=== PATIENT | female | born 1960 | race Caucasian/White ===

== ENCOUNTER 2017-05-28 21:01 | Emergency (ER) | payer OTHER ==
[~2017-05-28] VITALS: Ht 157.5 cm; Wt 128.8 kg
[~2017-05-28 21:01] MED LIST: ALBU0.08 INH; ALBUAER2 INH; ASPEC81 PO; CLOP1TAB54 PO; GABA-112 PO; HMLIS SQ; INSDGI SC; LEVO150T PO; LPT/40 PO; METO25TA56 PO; OXGN; PANT40TA PO
[2017-05-28] MEDS ORDERED: ASPIRIN 81 MG CHEW PO STA (21:12)
[2017-05-28 21:13] VITALS: TEMP 37.2; Ht 157.5 cm; Wt 128.8 kg
[2017-05-28 21:20] LABS: BASO % 0.2 %; BASO ABS # 0.02 K/uL (0-0.2); COMPLETE YES; EOS % 1.9 %; HEMATOCRIT 45.2 % (37-47); IG% 1.3 %; LYMPH ABS # 2.81 K/uL (1.2-3.4); MEAN CELL VOLUME 99.3 fL (80-100); MEAN CORPUSCULAR HEMOGLOBIN 31.9 pg (25-34); MEAN CORPUSCULAR HGB CONC 32.1 g/dl (32-36); MEAN PLATELET VOLUME 9.6 fL (7.4-10.4); MONO % 4.7 %; NEUT % 60.9 %; PLATELET COUNT 256 K/uL (130-400); RED BLOOD COUNT 4.55 M/uL (4.2-5.4); WHITE BLOOD COUNT 9.07 K/uL (4.8-10.8)
--- NOTE | 2017-05-28 21:31 | DIAGNOSTIC IMAGING REPORT ---
CHEST ONE VIEW PORTABLE CLINICAL HISTORY: Chest pain and shortness of breath. COMPARISON STUDY: Chest radiograph May 09, 2016. FINDINGS: There is no pneumothorax or pleural effusion. Mild interstitial thickening is similar to prior exams. There is no consolidation. Cardiomediastinal silhouette is stable. The exam is compromised due to suboptimal penetration related to portable technique and body habitus. IMPRESSION: No change in appearance of the chest. Stable interstitial thickening. Electronically signed by: Ruben Ahn M.D. 05/28/2017 9:30 PM Dictated Date/Time: 05/28/2017 9:28 PM
[2017-05-28 21:38] LABS: ALT/SGPT 58 U/L (12-78); BLOOD UREA NITROGEN 11 mg/dl (7-18); BUN/CREATININE RATIO 15.2 (10-20); CALCIUM 9.3 mg/dl (8.5-10.1); CARBON DIOXIDE 31 mmol/L (21-32); CHLORIDE 97 mmol/L (98-107); CREATININE 0.71 mg/dl (0.60-1.20); GLUCOSE 246 mg/dl (70-99); POTASSIUM 3.7 mmol/L (3.5-5.1); SODIUM 136 mmol/L (136-145)
[2017-05-28] MEDS ORDERED: ALBUT/IPRATROP 3MG/0.5MG NEB 3 ML VIAL INH STA (21:41)
[2017-05-28] MEDS ORDERED: METHYLPREDNISOLONE 125 MG VIAL IV STA (21:41)
[2017-05-28 21:42] LABS: POINT OF CARE PRO-BNP 298 pg/ml (0-900); POINT OF CARE TROPONIN I < 0.030 ng/ml (0-0.045)
[2017-05-28] MEDS ORDERED: ALBU18002 INH (21:42)
[2017-05-28] MEDS ORDERED: INSU100I2 SC (21:42)
[2017-05-28] MEDS ORDERED: INSDGIPEN SC (21:42)
[2017-05-28 21:43] LABS: ALKALINE PHOSPHATASE 255 U/L (45-117); AST/SGOT 46 U/L (15-37); CKMB/CK RATIO 2.1 (0-3.0)
[2017-05-28] MEDS ORDERED: PLV75 PO (21:43)
[2017-05-28] MEDS ORDERED: NRN100 PO (21:43)
[2017-05-28] MEDS ORDERED: PANT20TA PO (21:43)
[2017-05-28] MEDS ORDERED: LPT40 PO (21:43)
[2017-05-28] MEDS ORDERED: LEVO200T6 PO (21:43)
[2017-05-28] MEDS ORDERED: LPR25 PO (21:43)
[2017-05-28] MEDS ORDERED: ALBINS/ INH (21:44)
--- NOTE | 2017-05-28 22:07 | EMERGENCY ROOM VISIT NOTE ---
History Report prepared by Tom: Nehal Orta Under the Supervision of: Dr. Ghada Ortiz M.D. First contact with patient: 21:12 Chief Complaint: CHEST PAIN Stated Complaint: CHEST PAIN, SOB Nursing Triage Summary: Chest pain and SOB. Patient called EMS due to CP and SOB. Pt wears 4 liters 02 at home at night. When EMS arrived 02 sat was 84% on RA. Placed on 4 liters and 02 sat jumped to 96%. Patient smokes. 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 She presents to the ED by EMS. The pain is in the middle of her chest. She describes her pain as sharp and stabbing. It worsens with deep breaths. The pain does not radiate to her jaw , arm, or back. She reports feeling SOB. She has some abdominal pain which she attributes to her insulin injections. She denies any history of blood clots. She has a history of CHF. She had a [place] in 2010. She had a cardiac catheterization at the time. She did not have CABG or stent placement. She did not follow up with cardiology. The patient wears oxygen at night. 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 Review of Systems See HPI for pertinent positives & negatives. A total of 10 systems reviewed and were otherwise negative. Past Medical & Surgical Medical Problems: (1) Asthma (2) Benign hypertension (3) Chronic obstructive lung disease (4) Cirrhosis of liver (5) Coronary atherosclerosis of [place] coronary vessel (6) DM type 2 (diabetes mellitus, type 2) (7) Hyperlipidemia (8) Hypothyroidism (9) Morbid obesity with BMI of 40.0-44.9, adult (10) Peripheral vascular disease (11) Pulmonary emphysema (12) TOBACCO USE DISORDER Surgical Problems: (1) History of hysterectomy (2) S/P cholecystectomy (3) S/P coronary artery stent placement (4) S/P tonsillectomy and adenoidectomy Family History FH: diabetes mellitus BROTHER Heart disease MOTHER BROTHER Lung disease FATHER (COPD) SISTER (COPD, asthma) Social History Smoking Status: Current Every Day Smoker Alcohol Use: none Drug Use: none Marital Status: single Housing Status: lives with family Occupation Status: disabled Current/Historical Medications Scheduled Aspirin (Aspirin EC Low Dose), 81 MG PO DAILY Atorvastatin (Atorvastatin Calcium), 40 MG PO DAILY Clopidogrel Bisulfate (Clopidogrel), 75 MG PO DAILY Gabapentin (Gabapentin), 100 MG PO TID Home O2 Therapy (Oxygen), 4 LITERS NA HS Insulin Glargine (Lantus Solostar), 55 UNITS SC QAM Insulin Lispro (Human) (Humalog Kwikpen), 24 UNITS SC AC Levothyroxine Sodium (Levothyroxine Sodium), 500 MCG PO DAILY Metoprolol Tartrate (Lopressor), 12.5 MG PO BID Pantoprazole Sodium (Protonix), 20 MG PO DAILY Scheduled PRN Albuterol Sulf (Proventil 0.083% 2.5MG/3ML), 2.5 MG INH Q4H PRN for Shortness of Breath Albuterol Sulfate (Proair Respiclick), 2 PUFFS INH Q4H PRN for Shortness of Breath Allergies Coded Allergies: Penicillins (Verified Allergy, Intermediate, RASH, 05/09/16) Physical Exam Vital Signs Date Time Temp Pulse Resp B/P (MAP) Pulse Ox O2 Delivery O2 Flow Rate FiO2 05/29/17 00:05 69 20 171/76 95 Nasal Cannula 4.0 05/29/17 00:02 171/76 05/28/17 23:30 144/77 05/28/17 23:00 71 24 115/57 91 4.0 05/28/17 22:50 92 Nasal Cannula 4.0 05/28/17 22:36 71 25 117/78 92 Nasal Cannula 4.0 05/28/17 21:13 37.2 77 23 103/64 96 Nasal Cannula 4.0 05/28/17 21:13 84 Room Air 05/28/17 21:11 75 Physical Exam Vital signs reviewed. General: Malodorous, disheveled, on nasal cannula oxygen, morbidly obese, in no significant distress. HEENT: No scleral icterus, PERRLA, neck supple. Atraumatic. Cardiovascular: Regular rate and rhythm, no extra sounds. Pulmonary: Coarse breath sounds bilaterally, normal work of breathing, smells of tobacco. Abdomen: Soft, nontender, nondistended, positive bowel sounds. Musculoskeletal: Atraumatic, no peripheral edema. Neurologic: Patient awake alert and oriented x 3, full strength in all 4 extremities. Cranial nerves 2 through 12 grossly intact. Skin: Warm, dry, no rash Medical Decision & Procedures ER Provider Diagnostic Interpretation: X-ray results as stated below per interpretation by me and the radiologist: CHEST ONE VIEW PORTABLE CLINICAL HISTORY: Chest pain and shortness of breath. COMPARISON STUDY: Chest radiograph May 09, 2016. FINDINGS: There is no pneumothorax or pleural effusion. Mild interstitial thickening is similar to prior exams. There is no consolidation. Cardiomediastinal silhouette is stable. The exam is compromised due to suboptimal penetration related to portable technique and body habitus. IMPRESSION: No change in appearance of the chest. Stable interstitial thickening. Electronically signed by: Ruben Ahn M.D. 05/28/2017 9:30 PM Dictated Date/Time: 05/28/2017 9:28 PM Laboratory Results 05/28/17 20:33 Red Blood Count 4.55, Mean Corpuscular Volume 99.3, Mean Corpuscular Hemoglobin 31.9, Mean Corpuscular Hemoglobin Concent 32.1, Mean Platelet Volume 9.6, Neutrophils (%) (Auto) 60.9, Lymphocytes (%) (Auto) 31.0, Monocytes (%) (Auto) 4.7, Eosinophils (%) (Auto) 1.9, Basophils (%) (Auto) 0.2, Neutrophils # (Auto) 5.52, Lymphocytes # (Auto) 2.81, Monocytes # (Auto) 0.43, Eosinophils # (Auto) 0.17, Basophils # (Auto) 0.02 05/28/17 20:33 Test 05/28/17 20:33 05/28/17 21:24 05/28/17 21:25 05/28/17 23:42 White Blood Count 9.07 K/uL (4.8-10.8) Red Blood Count 4.55 M/uL (4.2-5.4) Hemoglobin 14.5 g/dL (12.0-16.0) Hematocrit 45.2 % (37-47) Mean Corpuscular Volume 99.3 fL (80-100) Mean Corpuscular Hemoglobin 31.9 pg (25-34) Mean Corpuscular Hemoglobin Concent 32.1 g/dl (32-36) Platelet Count 256 K/uL (130-400) Mean Platelet Volume 9.6 fL (7.4-10.4) Neutrophils (%) (Auto) 60.9 % Lymphocytes (%) (Auto) 31.0 % Monocytes (%) (Auto) 4.7 % Eosinophils (%) (Auto) 1.9 % Basophils (%) (Auto) 0.2 % Neutrophils # (Auto) 5.52 K/uL (1.4-6.5) Lymphocytes # (Auto) 2.81 K/uL (1.2-3.4) Monocytes # (Auto) 0.43 K/uL (0.11-0.59) Eosinophils # (Auto) 0.17 K/uL (0-0.5) Basophils # (Auto) 0.02 K/uL (0-0.2) RDW Standard Deviation 53.6 fL (36.4-46.3) RDW Coefficient of Variation 14.8 % (11.5-14.5) Immature Granulocyte % (Auto) 1.3 % Immature Granulocyte # (Auto) 0.12 K/uL (0.00-0.02) Anion Gap 8.0 mmol/L (3-11) Est Creatinine Clear Calc Drug Dose 112.6 ml/min Estimated GFR () 109.6 Estimated GFR (Non- 94.6 BUN/Creatinine Ratio 15.2 (10-20) Calcium Level 9.3 mg/dl (8.5-10.1) Total Bilirubin 0.2 mg/dl (0.2-1) Direct Bilirubin < 0.1 mg/dl (0-0.2) Aspartate Amino Transf (AST/SGOT) 46 U/L (15-37) Alanine Aminotransferase (ALT/SGPT) 58 U/L (12-78) Alkaline Phosphatase 255 U/L (45-117) Total Creatine Kinase 85 U/L (26-192) Creatine Kinase MB 1.8 ng/ml (0.5-3.6) Creatine Kinase MB Ratio 2.1 (0-3.0) Total Protein 7.0 gm/dl (6.4-8.2) Albumin 2.5 gm/dl (3.4-5.0) ZH-Egh-J-Type Natriuretic Peptide 298 pg/ml (0-900) Bedside Glucose 215 mg/dl (70-90) Bedside Troponin I < 0.030 ng/ml (0-0.045) Laboratory results per my review. Medications Administered Medications (Trade) Dose Ordered Sig/Abdi Route Start Time Stop Time Status Last Admin Dose Admin Methylprednisolone Sodium Succinate (Solu-Medrol IV) 125 mg NOW STAT IV 05/28/17 21:41 05/28/17 21:42 DC 05/28/17 21:49 125 MG Albuterol/ Ipratropium (Duoneb) 3 ml NOW STAT INH 05/28/17 21:41 05/28/17 21:42 DC 05/28/17 21:49 3 ML ECG Indication: chest pain, SOB/dyspnea Rate (beats per minute): 77 Rhythm: normal sinus Findings: no acute ischemic change, no ectopy ED Course 2124: Past medical records reviewed. The patient was evaluated in room C6. A complete history and physical examination was performed. 2111: Aspirin 324 mg PO. 2140: Duoneb 3 ml INH, Solu-Medrol IV 125 mg IV. 2316: Upon reevaluation, the patient appeared to have improvement of her symptoms. I discussed findings with her. She verbalized agreement of the treatment plan. She was discharged home. Medical Decision Differential diagnosis: Acute coronary syndrome, pulmonary embolus, aortic dissection, musculoskeletal pain, pneumonia, pleural effusion, pneumothorax Medication Reconciliation: I attest that I have personally reviewed the patient' s current medication list. Blood Pressure Screening: Patient was found to have normal blood pressure on screening and does not require follow-up. Pt was evaluated and appeared to be in no distress. IV access was obtained and lab work was drawn. 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 CXR is largely negative. EKG reveals no acute ischemia. Pt was given IV solumedral and duoneb treatment. Lab work reveals neg cardiac enzymes x 2. Pt was happy with plan for d/c, she had no further discomfort. Pt will f.u with PCP this week and return to the ED for worsening of symptoms or any medical concerns. Impression Primary Impression: Precordial chest pain Additional Impression: Chronic obstructive lung disease Scribe Attestation The scribe's documentation has been prepared under my direction and personally reviewed by me in its entirety. I confirm that the note above accurately reflects all work, treatment, procedures, and medical decision making performed by me. Departure Information Dispostion Home / Self-Care Referrals Ren Marroquin M.D. (PCP) Forms HOME CARE DOCUMENTATION FORM, IMPORTANT VISIT INFORMATION Patient Instructions [facility] Additional Instructions Diagnosis: Chest pain Please stop smoking. Use your oxygen during the day if needed for shortness of breath. Follow-up with your physician in the next 24-48 hours for reevaluation. Return to the emergency department for worsening of symptoms or any medical concerns. Problem Qualifiers
[2017-05-28 22:50] VITALS: O2SAT 92
[2017-05-29 00:05] VITALS: BP 171/76; PULSE 69; O2SAT 95
[2017-06-24] MEDS ORDERED: KFL500 PO (15:02)
[2017-06-24] MEDS ORDERED: OXGN (15:02)
[2017-06-24] MEDS ORDERED: LCTX PO (15:02)
[2017-06-24] MEDS ORDERED: FURO-85 PO (15:02)
[2017-06-24] MEDS ORDERED: PRED10TA PO (15:02)
[2017-06-24] MEDS ORDERED: SULF-183 PO (15:02)
[2017-06-24] MEDS ORDERED: IPRA1AER2 INH (15:02)
[2017-09-08] MEDS ORDERED: NICO21DI4 TD (13:27)
== END 2017-05-29 00:10 | disposition home or self-care (01) ==
LOC: EDBD 21:01 → C.EDC 21:03
DX: R07.2 Precordial pain (principal); J44.9 Chronic obstructive pulmonary disease, unspecified; I25.2 Old myocardial infarction; J45.909 Unspecified asthma, uncomplicated; I11.0 Hypertensive heart disease with heart failure; E11.9 Type 2 diabetes mellitus without complications; E78.5 Hyperlipidemia, unspecified; E03.9 Hypothyroidism, unspecified; E66.9 Obesity, unspecified; I73.9 Peripheral vascular disease, unspecified; F17.210 Nicotine dependence, cigarettes, uncomplicated; Z83.3 Family history of diabetes mellitus; Z82.49 Family history of ischemic heart disease and other diseases of the circulatory system; Z83.6 Family history of other diseases of the respiratory system; Z79.82 Long term (current) use of aspirin; Z79.4 Long term (current) use of insulin; Z79.899 Other long term (current) drug therapy

== ENCOUNTER 2017-06-20 21:06 | Inpatient (IN) | payer OTHER ==
[~2017-06-20] VITALS: Ht 154.9 cm; Wt 136.2 kg
[~2017-06-20 21:06] MED LIST changes: +ALBINS/ INH; -ALBU0.08 INH; +ALBU18002 INH; -ALBUAER2 INH; -CLOP1TAB54 PO; -GABA-112 PO; -HMLIS SQ; -INSDGI SC; +INSDGIPEN SC; +INSU100I2 SC; -LEVO150T PO; +LEVO200T6 PO; +LPR25 PO; -LPT/40 PO; +LPT40 PO; -METO25TA56 PO; +NRN100 PO; +PANT20TA PO; -PANT40TA PO; +PLV75 PO
[2017-06-20] MEDS ORDERED: SODIUM CHLORIDE 0.9% 1000ML 1,000 ML IV STA (21:23)
[2017-06-20 21:42] LABS: BASO % 0.1 %; BASO ABS # 0.01 K/uL (0-0.2); COMPLETE YES; EOS % 0.6 %; HEMATOCRIT 43.4 % (37-47); IG% 0.7 %; LYMPH % 9.8 %; LYMPH ABS # 1.25 K/uL (1.2-3.4); MEAN CELL VOLUME 99.5 fL (80-100); MEAN CORPUSCULAR HEMOGLOBIN 31.7 pg (25-34); MEAN CORPUSCULAR HGB CONC 31.8 g/dl (32-36); MEAN PLATELET VOLUME 9.5 fL (7.4-10.4); MONO % 6.7 %; NEUT % 82.1 %; PLATELET COUNT 244 K/uL (130-400); RED BLOOD COUNT 4.36 M/uL (4.2-5.4); WHITE BLOOD COUNT 12.73 K/uL (4.8-10.8)
[2017-06-20] MEDS ORDERED: OPTIRAY 320 IV PRN (21:45)
[2017-06-20 21:49] LABS: PROTHROMBIN TIME (PATIENT) 10.5 SECONDS (9.0-12.0)
[2017-06-20] MEDS ORDERED: VANCOMYCIN INJ 2,000 MG in SODIUM CHLORIDE 0.9% 500ML 500 ML IV STA (21:51)
[2017-06-20 21:52] LABS: ALT/SGPT 29 U/L (12-78); BLOOD UREA NITROGEN 7 mg/dl (7-18); BUN/CREATININE RATIO 10.5 (10-20); CALCIUM 9.4 mg/dl (8.5-10.1); CARBON DIOXIDE 32 mmol/L (21-32); CHLORIDE 95 mmol/L (98-107); CREATININE 0.65 mg/dl (0.60-1.20); GLUCOSE 143 mg/dl (70-99); POTASSIUM 3.9 mmol/L (3.5-5.1); SODIUM 133 mmol/L (136-145)
[2017-06-20 21:57] LABS: ALB/GLOB RATIO 0.5 (0.9-2); ALKALINE PHOSPHATASE 217 U/L (45-117); AST/SGOT 35 U/L (15-37)
[2017-06-20 22:07] LABS: URINE APPEARANCE CLEAR (CLEAR); URINE COLOR DK YELLOW; URINE EPITHELIAL CELL AUTO >30 /lpf (0-5); URINE NITRITE NEG (NEG); URINE PH 7.5 (4.5-7.5); UROBILINOGEN POS (NEG)
[2017-06-20 22:10] LABS: MANUAL MICROSCOPIC REQUIRED? NO; REVIEW REQ? NO
[2017-06-20 22:12] LABS: SULFASALICYLIC ACID POS (NEG); URINE BILIRUBIN NEG (NEG)
[2017-06-21] VITALS (15 sets, daily range): BP systolic 117–161; BP diastolic 37–78; PULSE 59–78; TEMP 36.7–38.4; O2SAT 89–98; Ht 154.9 cm; Wt 136.2 kg
--- NOTE | 2017-06-21 01:31 | EMERGENCY ROOM VISIT NOTE ---
History Report prepared by Tom: Bryon Flores Under the Supervision of: Dr. Flores Novak D.O. First contact with patient: 21:12 Stated Complaint: FALL, DIZZINESS History of Present Illness The patient is a 56 year old female who presents to the Emergency Room with complaints of constant left side pain beginning after a fall occurring shortly prior to arrival. She did not hit her head or lose consciousness. The patient states that she slipped on the wet floor of her bathroom, causing her to fall. She notes that she had an episode of dizziness after going to the bathroom. She wears 4 L of supplemental oxygen chronically. She smokes every day. The patient currently complains of chest pain, shortness of breath with exertion, and lightheadedness. She denies any abnormal cough, fevers, or chills. She states that she has had abdominal pain and redness present for "a while, possibly a year", and has not seen a doctor for it yet. She states she rubs a cream on it and it gets better. Denies associated pain. Denies any recent surgical procedures. Pt denies any change in breathing, change in sputum, or recent fevers. Pt states she occasionally uses an inhaler but doesn't see a inspector plating. The patient states that she generally uses a wheelchair at home. Source of History: patient Onset: Shortly prior to arrival Position: other (left side) Timing: constant Associated Symptoms: + chest pain, + SOB, No LOC, No fevers, No chills, No cough (abnormal) Note: The patient currently complains of lightheadedness. She had an episode of dizziness prior to falling. Review of Systems See HPI for pertinent positives & negatives. A total of 10 systems reviewed and were otherwise negative. Past Medical & Surgical Medical Problems: (1) Asthma (2) Benign hypertension (3) Chronic obstructive lung disease (4) Cirrhosis of liver (5) Coronary atherosclerosis of [place] coronary vessel (6) DM type 2 (diabetes mellitus, type 2) (7) Hyperlipidemia (8) Hypothyroidism (9) Morbid obesity with BMI of 40.0-44.9, adult (10) Peripheral vascular disease (11) Pulmonary emphysema (12) Respiratory failure, [id number] (13) TOBACCO USE DISORDER Surgical Problems: (1) History of hysterectomy (2) S/P cholecystectomy (3) S/P coronary artery stent placement (4) S/P tonsillectomy and adenoidectomy Family History FH: diabetes mellitus BROTHER Heart disease MOTHER BROTHER Lung disease FATHER (COPD) SISTER (COPD, asthma) Social History Smoking Status: Current Every Day Smoker Alcohol Use: none Drug Use: none Marital Status: single Housing Status: lives with family Occupation Status: disabled Current/Historical Medications Scheduled Aspirin (Aspirin EC Low Dose), 81 MG PO DAILY Atorvastatin (Atorvastatin Calcium), 40 MG PO DAILY Clopidogrel Bisulfate (Clopidogrel), 75 MG PO DAILY Gabapentin (Gabapentin), 100 MG PO TID Home O2 Therapy (Oxygen), 4 LITERS NA HS Insulin Glargine (Lantus Solostar), 55 UNITS SC QAM Insulin Lispro (Human) (Humalog Kwikpen), 24 UNITS SC AC Levothyroxine Sodium (Levothyroxine Sodium), 200 MCG PO DAILY Metoprolol Tartrate (Lopressor), 12.5 MG PO BID Pantoprazole Sodium (Protonix), 20 MG PO DAILY Scheduled PRN Albuterol Sulf (Proventil 0.083% 2.5MG/3ML), 2.5 MG INH Q4H PRN for Shortness of Breath Albuterol Sulfate (Proair Respiclick), 2 PUFFS INH Q4H PRN for Shortness of Breath Allergies Coded Allergies: Penicillins (Verified Allergy, Intermediate, RASH, 05/09/16) Physical Exam Vital Signs Date Time Temp Pulse Resp B/P (MAP) Pulse Ox O2 Delivery O2 Flow Rate FiO2 06/21/17 02:19 75 22 97/48 89 Nasal Cannula 4.0 06/21/17 01:13 76 06/21/17 00:18 76 20 126/70 91 Nasal Cannula 4.0 06/20/17 23:16 72 20 111/60 93 Nasal Cannula 4.0 06/20/17 22:02 69 22 118/52 95 Nasal Cannula 4.0 06/20/17 21:24 91 Nasal Cannula 4.0 06/20/17 21:21 70 06/20/17 21:18 36.6 70 24 118/52 76 Room Air Physical Exam GENERAL: alert, appears older than stated age, well nourished, no distress, non- toxic, morbidly obese EYE EXAM: normal conjunctiva. OROPHARYNX: no exudate, no erythema, lips, buccal mucosa, and tongue normal and mucous membranes are moist NECK: supple, no nuchal rigidity, no adenopathy, non-tender LUNGS: Clear to auscultation. Normal chest wall mechanics, decreased BS b/l, no w/r/r, no crepitus/step off/ecchymosis to chest wall HEART: no murmurs, S1 normal and S2 normal ABDOMEN: abdomen soft, non-tender, normo-active bowel sounds, no masses, no rebound or guarding. Far lower edge of pannus has a 10 cm vertical midline wound with foul odor, mild yellow discharge, no active bleeding. Mildly increased erythema around the wound margins. Very mild erythema extending over the lower 2/3 of the abdomen into the bilateral flanks. Not circumferential. No extension of the erythema into the perineum. No ecchymosis/contusion/crepitus or other evidence of trauma. BACK: Back is symmetrical on inspection and there is no deformity, no midline tenderness, no CVA tenderness. SKIN: no bruising UPPER EXTREMITIES: upper extremities are grossly normal. Discoloration noted to nail beds consistent with smoking hx. LOWER EXTREMITIES: No pitting edema. NEURO EXAM: Normal sensorium, cranial nerves II-XII grossly intact, normal speech, no gross weakness of arms, no gross weakness of legs. Medical Decision & Procedures ER Provider Diagnostic Interpretation: CT results per statrad and my review. CT C-SPINE: No fracture or malalignment. Degenerative changes. Varying degrees of central canal and foramina stenosis. Reversal of the cervical lordosis, could be positional or from muscle spasm. Retropharyngeal carotids, anatomic variant. CT HEAD: No intracranial hemorrhage or skull fracture. CT ABDOMEN & PELVIS: No solid organ injury or hemoperitoneum. Subcutaneous edema/anasarca. Lobulated liver. Cholecystectomy. Hyde catheter. Hysterectomy. Laboratory Results Test 06/20/17 21:00 06/20/17 21:54 06/20/17 22:27 Prothrombin Time 10.5 SECONDS (9.0-12.0) Prothromb Time International Ratio 1.0 (0.9-1.1) Estimated Average Glucose 212 mg/dl Hemoglobin A1c 9.0 % (4.5-5.6) Magnesium Level 1.9 mg/dl (1.8-2.4) Total Bilirubin 0.9 mg/dl (0.2-1) Aspartate Amino Transf (AST/SGOT) 35 U/L (15-37) Alanine Aminotransferase (ALT/SGPT) 29 U/L (12-78) Alkaline Phosphatase 217 U/L (45-117) Pro-B-Type Natriuretic Peptide 553 pg/ml (0-900) Total Protein 7.2 gm/dl (6.4-8.2) Albumin 2.3 gm/dl (3.4-5.0) Globulin 4.9 gm/dl (2.5-4.0) Albumin/Globulin Ratio 0.5 (0.9-2) Lipase 90 U/L (73-393) Thyroid Stimulating Hormone (TSH) 4.700 uIu/ml (0.300-4.500) Urine Color DK YELLOW Urine Appearance CLEAR (CLEAR) Urine pH 7.5 (4.5-7.5) Urine Specific [place] 1.020 (1.000-1.030) Urine Protein TRACE (NEG) Urine Glucose (UA) NEG (NEG) Urine Ketones NEG (NEG) Urine Occult Blood NEG (NEG) Urine Nitrite NEG (NEG) Urine Bilirubin NEG (NEG) Urine Urobilinogen POS (NEG) Urine Leukocyte Esterase TRACE (NEG) Urine WBC (Auto) 1-5 /hpf (0-5) Urine RBC (Auto) 0-4 /hpf (0-4) Urine Hyaline Casts (Auto) 1-5 /lpf (0-5) Urine Epithelial Cells (Auto) >30 /lpf (0-5) Urine Bacteria (Auto) NEG (NEG) Lactic Acid Level 1.4 mmol/L (0.4-2.0) Date/Time Source Procedure Growth Status 06/20/17 21:54 Urine,Catheterized Urine Culture - Final MORE THAN THREE TYPES OF ORGANISMS MI... Complete 06/20/17 21:30 Drainage - Surface Abdomen Gram Stain - Final Complete 06/20/17 21:30 Wound Culture - Final Proteus Vulgaris Staphylococcus Aureus Group G Beta Strep Staphylococcus Aureus#2 Complete Laboratory results per my review. Medications Administered Medications (Trade) Dose Ordered Sig/Abdi Route Start Time Stop Time Status Last Admin Dose Admin Sodium Chloride 1,000 ml @ 125 mls/hr Q8H STAT IV 06/20/17 21:23 06/21/17 03:08 DC 06/20/17 21:23 125 MLS/HR Vancomycin HCl 2000 mg/Sodium Chloride 540 ml @ 200 mls/hr ONE STAT IV 06/20/17 21:51 06/21/17 00:32 DC 06/20/17 22:31 200 MLS/HR ECG Indication: other (dizziness) Rate (beats per minute): 71 Rhythm: normal sinus Findings: PAC (occasional), no acute ischemic change, other (Normal axis. Normal intervals. ) ED Course 2112: The patient was evaluated in room C7. A complete history and physical exam was performed. 2122: Ordered Sodium Chloride 1000 ml @ 125 mls/hr IV. 2150: Ordered Vancomycin HCl 2000 mg/Sodium Chloride 540 ml @ 200 mls/hr IV. 5: Pt denies any sob, states still having mild pain in the left side. Updated on labs so far. 0110: Upon reevaluation, the patient is resting comfortably. Her breathing has improved. I discussed the findings and the treatment plan with the patient. She expresses agreement and understanding. [facility] The patient will be evaluated for further management. Medical Decision Differential diagnoses include major intracranial, cervical, spinal, thoracic, abdominal, pelvic and neurologic injury. Fracture, contusion, sprain, strain, laceration, abrasions included as well. Pt several chronic medical problems, and risk factors for complications. Pt on home oxygen and underlying COPD still smoking, was hypoxic on room air, 90% on 4 lpm. Pt denied any current trouble breathing or other symptoms suggestive of acute exacerbation. Likely abdominal wall cellulitis from wound on the pannus, given hx of MRSA pt started on vancomycin. CT's initially performed for trauma and no other cause of dizziness noted on imaging. Mild leukocytosis likely from cellulitis, no evidence of bacteremia/sepsis. No PE findings to suggest Daphnie's. VS stable in the ER. Doubt additional pulmonary pathology such as PE, no evidence of infiltrate/effusion. Doubt acs, however, pt with multiple risk factors, likely needs serial enzymes as a precaution. No active chest pain or SOB on exam, c/o left flank pain from fall. Denies current dizziness. Pt alert/oriented, denies head trauma/LOC. Fall likely mechanical, unclear etiology for dizziness, although possibly related to cellulitis. Pt noncompliant by her own admission, nonambulatory, on chronic home oxygen and still smoking. Pt at risk for cardiac, infectious, pulmonary complications due to current presentation and chronic conditions. Pt admitted for additional monitoring and treatment. [place] Drug Monitoring Program Search Results: patient reviewed within database Head Trauma GCS Score: 15 Medication Reconcilliation Current Medication List: was personally reviewed by me Blood Pressure Screening Patient's blood pressure: Elevated blood pressure Blood pressure disposition: Elevated BP felt to be situational Consults Time Called: 0110 Consulting Physician: Dr. Nicolle Stephens Returned Call: 0125 I reviewed the patient's case with Dr. Valverde. Harshad will evaluate the patient for further management. Impression Primary Impression: Dizziness Additional Impressions: mechanical fall Morbid obesity Open abdominal wall wound Cellulitis COPD (chronic obstructive pulmonary disease) TOBACCO USE DISORDER Critical Care I have personally spent 35 minutes of critical care time in the direct management of this patient. This includes bedside care, interpretation of diagnostic studies, and testing, discussion with consultants, patient, and family members, and other required patient management activities. This 35 minutes is in excess of all separately billable procedures. Scribe Attestation The scribe's documentation has been prepared under my direction and personally reviewed by me in its entirety. I confirm that the note above accurately reflects all work, treatment, procedures, and medical decision making performed by me. Departure Information Dispostion Being Evaluated By Hospitalist Referrals Ren Marroquin M.D. (PCP) Problem Qualifiers Additional Impressions: Open abdominal wall wound Encounter type: initial encounter Qualified Codes: S31.109A - Unspecified open wound of abdominal wall, unspecified quadrant without penetration into peritoneal cavity, initial encounter Cellulitis Site of cellulitis: trunk Site of cellulitis of trunk: abdominal wall Qualified Codes: L03.311 - Cellulitis of abdominal wall COPD (chronic obstructive pulmonary disease) COPD type: unspecified COPD Qualified Codes: J44.9 - Chronic obstructive pulmonary disease, unspecified
[2017-06-21 01:47] LABS: MAGNESIUM 1.9 mg/dl (1.8-2.4)
[2017-06-21] MEDS ORDERED: CEFEPIME IV 2,000 MG in DEXTROSE 5% 100ML 100 ML IV ONE (02:15)
[2017-06-21] MEDS ORDERED: METHYLPREDNISOLONE IV 20 MG in SYRINGE 0 ML IV STA (02:18)
[2017-06-21 02:30] LABS: ARTERIAL BLD GAS O2 SATURATION 89.7 % (90-95); ARTERIAL BLOOD GAS BASE EXCESS 3.5 mEq/L (-9-1.8); ARTERIAL BLOOD GAS HCO3 32 mmol/L (19-24); ARTERIAL BLOOD GAS PO2 62 mm/Hg (80-95); ARTERIAL BLOOD GAS pH 7.28 (7.35-7.45)
[2017-06-21 02:31] LABS: ALLEN TEST POS (POS); O2 ADMINISTRATION 4 L
[2017-06-21] MEDS ORDERED: ALBUT/IPRATROP 3MG/0.5MG NEB 3 ML VIAL ONE (03:20)
[2017-06-21] MEDS ORDERED: INSULIN ASPART 100 UNITS/ML 3 ML PEN SC ONE (03:23)
[2017-06-21] MEDS ORDERED: INSULIN GLARGINE SOLOSTAR 100 UNITS/ML 3 ML PEN SC SCH ×2 (03:23→21:00)
[2017-06-21] MEDS ORDERED: GLUCOSE 40% GEL 15 GM TUBE PO PRN (03:30)
[2017-06-21] MEDS ORDERED: ONDANSETRON INJ 2 MG/ML 2 ML VIAL IV PRN (03:30)
[2017-06-21] MEDS ORDERED: GLUCOSE 10 TABS/TUBE PO PRN (03:30)
[2017-06-21] MEDS ORDERED: ALBUT/IPRATROP 3MG/0.5MG NEB 3 ML VIAL INH PRN (03:30)
[2017-06-21] MEDS ORDERED: HYDROmorphone INJ 0.5 MG/0.5 ML SYR IV PRN (03:30)
[2017-06-21] MEDS ORDERED: GLUCAGON FOR INJ 1 MG VIAL SQ PRN (03:30)
[2017-06-21] MEDS ORDERED: ACETAMINOPHEN 325 MG TAB PO PRN (03:30)
[2017-06-21] MEDS ORDERED: TRAMADOL HCL 50 MG TAB PO PRN (03:30)
[2017-06-21] MEDS ORDERED: DEXTROSE 50% 50 ML SYR IV PRN (03:30)
[2017-06-21] MEDS ORDERED: ALBUT/IPRATROP 3MG/0.5MG NEB 3 ML VIAL INH ONE (04:00)
[2017-06-21] MEDS ORDERED: DOXYCYCLINE IV 100 MG in DEXTROSE 5% 100ML 100 ML IV ONE (04:30)
[2017-06-21 05:45] LABS: BASO % 0.1 %; BASO ABS # 0.01 K/uL (0-0.2); COMPLETE YES; EOS % 0.3 %; HEMATOCRIT 45.2 % (37-47); IG% 0.7 %; LYMPH % 3.6 %; LYMPH ABS # 0.48 K/uL (1.2-3.4); MEAN CORPUSCULAR HEMOGLOBIN 32.1 pg (25-34); MEAN CORPUSCULAR HGB CONC 31.2 g/dl (32-36); MEAN PLATELET VOLUME 9.6 fL (7.4-10.4); MONO % 5.4 %; NEUT % 89.9 %; PLATELET COUNT 222 K/uL (130-400); RED BLOOD COUNT 4.39 M/uL (4.2-5.4); WHITE BLOOD COUNT 13.45 K/uL (4.8-10.8)
[2017-06-21] MEDS: LEVOTHYROXINE 200 MCG TAB PO SCH (05:49)
[2017-06-21 05:58] LABS: ALLEN TEST POS (POS); ARTERIAL BLD GAS O2 SATURATION 92.3 % (90-95); ARTERIAL BLOOD GAS BASE EXCESS 4.2 mEq/L (-9-1.8); ARTERIAL BLOOD GAS HCO3 32 mmol/L (19-24); ARTERIAL BLOOD GAS PO2 69 mm/Hg (80-95); O2 ADMINISTRATION 4
[2017-06-21 06:01] LABS: ESTIMATED AVERAGE GLUCOSE 212 mg/dl; HA1C FLAG Normal (Normal)
[2017-06-21 06:19] LABS: BLOOD UREA NITROGEN 7 mg/dl (7-18); BUN/CREATININE RATIO 11.3 (10-20); CARBON DIOXIDE 35 mmol/L (21-32); CHLORIDE 98 mmol/L (98-107); CREATININE 0.58 mg/dl (0.60-1.20); GLUCOSE 159 mg/dl (70-99); POTASSIUM 3.9 mmol/L (3.5-5.1); SODIUM 136 mmol/L (136-145)
[2017-06-21] MEDS ORDERED: ACETAMINOPHEN IV 650 MG in EMPTY BAG 0 ML IV ONE (06:30)
--- NOTE | 2017-06-21 06:36 | DIAGNOSTIC IMAGING REPORT ---
CT OF THE HEAD WITHOUT CONTRAST CLINICAL HISTORY: Trauma, dizzy. COMPARISON STUDY: No previous studies for comparison. CT DOSE: 5746.10 mGy.cm TECHNIQUE: Helical axial images of the head were obtained without IV contrast. Automated exposure control was utilized for the study. A dose lowering technique was utilized adhering to the principles of ALARA. FINDINGS: No acute intracranial hemorrhage, midline shift or mass effect is present. Ventricular system is normal. Basilar cisterns are patent. There are no extra-axial collections. Oconnor-white differentiation is maintained. There is no calvarial fracture. Small amount of fluid is noted within the bilateral mastoid air cells. There is mild mucosal thickening of the left maxillary sinus. IMPRESSION: 1. No acute intracranial findings. 2. No calvarial fracture. Electronically signed by: Ruben Ahn M.D. 06/21/2017 6:35 AM Dictated Date/Time: 06/21/2017 6:33 AM
--- NOTE | 2017-06-21 06:45 | DIAGNOSTIC IMAGING REPORT ---
CERVICAL SPINE W/O CT DOSE: HISTORY: Pain. Trauma. trauma TECHNIQUE: Multiaxial CT images of the cervical spine were performed and reformatted in the sagittal and coronal plane without the use of contrast. A dose lowering technique was utilized adhering to the principles of ALARA. COMPARISON: None. FINDINGS: Generalized degenerative disc change throughout. Reversal of the normal cervical curvature consistent with muscular spasm. No acute compression deformity. No significant subluxation. IMPRESSION: Degenerative change. Muscle spasm. No acute bony abnormality. The above report was generated using voice recognition software. It may contain grammatical, syntax or spelling errors. Electronically signed by: Harvey Blevins M.D. 06/21/2017 6:44 AM Dictated Date/Time: 06/21/2017 6:41 AM
--- NOTE | 2017-06-21 06:52 | DIAGNOSTIC IMAGING REPORT ---
CT OF THE ABDOMEN AND PELVIS WITH CONTRAST CLINICAL HISTORY: trauma, pain left flank COMPARISON STUDY: None. TECHNIQUE: Following IV administration of 93 mL of Optiray-320, axial images of the abdomen and pelvis were obtained from the lung bases to the proximal femurs. Images were reviewed in the axial, sagittal, and coronal planes. IV contrast was administered without complication. A dose lowering technique was utilized adhering to the principles of ALARA. FINDINGS: The chest will be reported separately. The liver is lobulated. There is trace perihepatic ascites. Pneumobilia is noted. There is no evidence of traumatic injury to the liver, spleen, adrenal glands, kidneys or pancreas. Excreted contrast within the collecting systems and ureters is noted. There is no hydronephrosis. The caliber and wall thickness of small and large bowel are normal. A left adrenal nodule is unchanged since exam November 09, 2014. This is benign. Anasarca or subcutaneous edema of the anterior abdominal wall is again noted. No acute lumbar spine or pelvic fractures identified. A Hyde balloon is present within the bladder which is collapsed. IMPRESSION: 1. No evidence of traumatic injury to the solid abdominal viscera. 2. Subcutaneous edema/anasarca of the anterior abdominal wall. 3. Lobulated liver with trace perihepatic ascites. Electronically signed by: Ruben Ahn M.D. 06/21/2017 6:51 AM Dictated Date/Time: 06/21/2017 6:49 AM
--- NOTE | 2017-06-21 07:28 | DIAGNOSTIC IMAGING REPORT ---
(CHEST) THORAX WITH HISTORY: 56 years-old Female trauma, sob, left rib pain symptoms are acute. COMPARISON: CT abdomen and pelvis 06/20/2017, chest CT 02/02/2016 TECHNIQUE: Multiple axial CT images of the chest were obtained following the intravenous administration of 93 mL Optiray 320. A dose lowering technique was used consistent with the principals of NARCISA. FINDINGS: Thyroid is not imaged. Mildly prominent nonspecific lymph nodes are seen about the chest, largest of which is a 2 x 1 cm subcarinal lymph node. Heart is mildly enlarged with three-vessel distribution coronary arterial calcifications. No thoracic pseudoaneurysm or dissection identified. The opacified pulmonary arterial tree is unremarkable. There is no pneumothorax. There is trace right pleural fluid noted. There is moderate amount of dependent atelectasis with some areas of subpleural cystic change. Multifocal areas of mosaic attenuation throughout the bilateral lungs suggests air trapping. The central airways are patent. There is trace. Trace perihepatic ascites with lobulated margin of the liver. Liver appears enlarged. Prior cholecystectomy. There is diffuse moderate body wall edema. Bones appear intact without acute fracture or dislocation identified. IMPRESSION: 1. No acute cardiopulmonary process. No evidence of posttraumatic injury to the chest. 2. No pneumothorax. 3. Trace right pleural effusion with bibasilar opacities suggesting atelectasis. There is multifocal air trapping. 4. Trace perihepatic ascites with moderate diffuse body wall edema. The above report was generated using voice recognition software. It may contain grammatical, syntax or spelling errors. Electronically signed by: Selvin Lui M.D. 06/21/2017 7:26 AM Dictated Date/Time: 06/21/2017 7:20 AM
[2017-06-21] MEDS: LEVALBUTEROL 1.25MG/0.5ML NEB INH SCH ×3 (08:07→18:54)
[2017-06-21] MEDS: IPRATROPIUM BROMIDE NEB SOLN 0.02% 2.5 ML VIAL INH SCH ×3 (08:07→18:54)
[2017-06-21] MEDS: ENOXAPARIN 40 MG/0.4 ML SYR SC SCH (08:55)
[2017-06-21] MEDS: ASPIRIN 81 MG ECTAB PO SCH (08:56)
[2017-06-21] MEDS: ATORVASTATIN 40 MG TAB PO SCH (08:56)
[2017-06-21] MEDS: METOPROLOL TARTRATE 25 MG TAB PO SCH ×2 (08:56→19:52)
[2017-06-21] MEDS: PANTOprazole SOD 40 MG TAB PO SCH (08:56)
[2017-06-21] MEDS: CLOPIDOGREL BISULFATE 75 MG TAB PO SCH (08:56)
[2017-06-21] MEDS: GABAPENTIN 100 MG CAP PO SCH ×3 (08:56→20:41)
[2017-06-21] MEDS: CEFEPIME IV 2,000 MG in DEXTROSE 5% 100ML 100 ML IV SCH ×2 (08:57→16:49)
[2017-06-21] MEDS: NICOTINE 14 MG/24 HR TDSY TD SCH (08:58)
[2017-06-21] MEDS: INSULIN ASPART 100 UNITS/ML 3 ML PEN SC SCH ×4 (08:59→20:47)
[2017-06-21] MEDS ORDERED: NICOTINE 14 MG/24 HR TDSY TD SCH (09:00)
[2017-06-21] MEDS ORDERED: CEFEPIME CONSULT ACTIVE PRN ×2 (09:00)
[2017-06-21] MEDS ORDERED: LEVALBUTEROL/IPRATROPIUM NEB INH SCH (09:00)
[2017-06-21] MEDS ORDERED: VANCOMYCIN CONSULT ACTIVE PRN (09:00)
--- NOTE | 2017-06-21 09:06 | Progress Note ---
Medicine Progress Note Date & Time of Visit: Jun 21, 2017 at 08:56. Subjective patient seen resting in bed only on 4 liters NC states she feels improved compared to yesterday still has dry cough, no dyspnea/chest pain has mild abdominal wall discomfort no other symptoms Objective Last 8 Hrs Date Time Temp Pulse Resp B/P (MAP) Pulse Ox O2 Delivery O2 Flow Rate FiO2 06/21/17 07:37 62 91 50 06/21/17 07:35 62 22 91 BiPAP/CPAP 50 06/21/17 06:22 68 98 50 06/21/17 04:21 38.4 78 18 118/62 89 Nasal Cannula 4.0 06/21/17 04:00 93 BiPAP 4.0 50 06/21/17 04:00 74 94 50 06/21/17 02:19 75 22 97/48 89 Nasal Cannula 4.0 06/21/17 01:13 76 Physical Exam: General- oriented x 3, not in distress, speaks in sentences with no effort Head- atraumatic Eyes- EOMI, anicteric ENT- oropharynx clear Neck- supple, no JVD, no adenopathy, Lungs- (+) rhonchi, diffuse, bilaterally Heart- regular rhythm; no murmur, normal rate Abdomen- (+) erythema/warm on the lower abdominal wall/pannus and inguinal region (+) incision on the lower abdomen- slight dehiscence, white/foul smelling discharge normal bowel sounds, soft Extremities- no pretibial edema, no calf tenderness Neuro- alert, oriented x 3; no gross focal deficit Skin- warm & dry Laboratory Results: Last 24 Hours Test 06/20/17 21:00 06/20/17 21:54 06/20/17 22:27 06/21/17 02:15 White Blood Count 12.73 K/uL Red Blood Count 4.36 M/uL Hemoglobin 13.8 g/dL Hematocrit 43.4 % Mean Corpuscular Volume 99.5 fL Mean Corpuscular Hemoglobin 31.7 pg Mean Corpuscular Hemoglobin Concent 31.8 g/dl Platelet Count 244 K/uL Mean Platelet Volume 9.5 fL Neutrophils (%) (Auto) 82.1 % Lymphocytes (%) (Auto) 9.8 % Monocytes (%) (Auto) 6.7 % Eosinophils (%) (Auto) 0.6 % Basophils (%) (Auto) 0.1 % Neutrophils # (Auto) 10.45 K/uL Lymphocytes # (Auto) 1.25 K/uL Monocytes # (Auto) 0.85 K/uL Eosinophils # (Auto) 0.08 K/uL Basophils # (Auto) 0.01 K/uL RDW Standard Deviation 55.1 fL RDW Coefficient of Variation 15.1 % Immature Granulocyte % (Auto) 0.7 % Immature Granulocyte # (Auto) 0.09 K/uL Prothrombin Time 10.5 SECONDS Prothromb Time International Ratio 1.0 Sodium Level 133 mmol/L Potassium Level 3.9 mmol/L Chloride Level 95 mmol/L Carbon Dioxide Level 32 mmol/L Anion Gap 6.0 mmol/L Blood Urea Nitrogen 7 mg/dl Creatinine 0.65 mg/dl Est Creatinine Clear Calc Drug Dose 125.5 ml/min Estimated GFR () 114.2 Estimated GFR (Non- 98.6 BUN/Creatinine Ratio 10.5 Random Glucose 143 mg/dl Estimated Average Glucose 212 mg/dl Hemoglobin A1c 9.0 % Calcium Level 9.4 mg/dl Magnesium Level 1.9 mg/dl Total Bilirubin 0.9 mg/dl Aspartate Amino Transf (AST/SGOT) 35 U/L Alanine Aminotransferase (ALT/SGPT) 29 U/L Alkaline Phosphatase 217 U/L Troponin I < 0.015 ng/ml Pro-B-Type Natriuretic Peptide 553 pg/ml Total Protein 7.2 gm/dl Albumin 2.3 gm/dl Globulin 4.9 gm/dl Albumin/Globulin Ratio 0.5 Lipase 90 U/L Thyroid Stimulating Hormone (TSH) 4.700 uIu/ml Urine Color DK YELLOW Urine Appearance CLEAR Urine pH 7.5 Urine Specific [place] 1.020 Urine Protein TRACE Urine Glucose (UA) NEG Urine Ketones NEG Urine Occult Blood NEG Urine Nitrite NEG Urine Bilirubin NEG Urine Urobilinogen POS Urine Leukocyte Esterase TRACE Urine WBC (Auto) 1-5 /hpf Urine RBC (Auto) 0-4 /hpf Urine Hyaline Casts (Auto) 1-5 /lpf Urine Epithelial Cells (Auto) >30 /lpf Urine Bacteria (Auto) NEG Lactic Acid Level 1.4 mmol/L Arterial Blood pH 7.28 Arterial Blood Partial Pressure CO2 71 mmHg Arterial Blood Partial Pressure O2 62 mm/Hg Arterial Blood HCO3 32 mmol/L Arterial Blood Oxygen Saturation 89.7 % Arterial Blood Base Excess 3.5 mEq/L Arterial Blood Gas Delivery 4 L Alon Test POS Test 06/21/17 05:26 06/21/17 05:32 06/21/17 05:43 06/21/17 08:03 White Blood Count 13.45 K/uL Red Blood Count 4.39 M/uL Hemoglobin 14.1 g/dL Hematocrit 45.2 % Mean Corpuscular Volume 103.0 fL Mean Corpuscular Hemoglobin 32.1 pg Mean Corpuscular Hemoglobin Concent 31.2 g/dl Platelet Count 222 K/uL Mean Platelet Volume 9.6 fL Neutrophils (%) (Auto) 89.9 % Lymphocytes (%) (Auto) 3.6 % Monocytes (%) (Auto) 5.4 % Eosinophils (%) (Auto) 0.3 % Basophils (%) (Auto) 0.1 % Neutrophils # (Auto) 12.11 K/uL Lymphocytes # (Auto) 0.48 K/uL Monocytes # (Auto) 0.72 K/uL Eosinophils # (Auto) 0.04 K/uL Basophils # (Auto) 0.01 K/uL RDW Standard Deviation 57.8 fL RDW Coefficient of Variation 15.3 % Immature Granulocyte % (Auto) 0.7 % Immature Granulocyte # (Auto) 0.09 K/uL Sodium Level 136 mmol/L Potassium Level 3.9 mmol/L Chloride Level 98 mmol/L Carbon Dioxide Level 35 mmol/L Anion Gap 3.0 mmol/L Blood Urea Nitrogen 7 mg/dl Creatinine 0.58 mg/dl Est Creatinine Clear Calc Drug Dose 138.5 ml/min Estimated GFR () 118.6 Estimated GFR (Non- 102.3 BUN/Creatinine Ratio 11.3 Random Glucose 159 mg/dl Calcium Level 9.0 mg/dl Ammonia 31.0 umol/L Troponin I < 0.015 ng/ml Bedside Glucose 159 mg/dl 164 mg/dl Arterial Blood pH 7.30 Arterial Blood Partial Pressure CO2 67 mmHg Arterial Blood Partial Pressure O2 69 mm/Hg Arterial Blood HCO3 32 mmol/L Arterial Blood Oxygen Saturation 92.3 % Arterial Blood Base Excess 4.2 mEq/L Arterial Blood Gas Delivery 4 Alon Test POS Date/Time Source Procedure Growth Status 06/20/17 22:27 Blood Blood Culture Pending Received 06/20/17 22:16 Blood Blood Culture Pending Received 06/20/17 21:54 Urine,Catheterized Urine Culture Pending Received 06/20/17 21:30 Drainage - Surface Abdomen Gram Stain Pending Received 06/20/17 21:30 Drainage - Surface Abdomen Wound Culture Pending Received Assessment & Plan 56 year old female with history of CAD, DM, HTN, COPD, chronic abdominal wound , presenting s/p fall in the bathroom. ACUTE ON CHRONIC HYPOXIC, HYPERCAPNEIC RESPIRATORY FAILURE SECONDARY TO COPD EXACERBATION, ACUTE BRONCHITIS -- off bipap ABG slightly improved -- CT chest: no obvious pneumonia -- continue Doxy + Cefepime Day 2 Nebs Prednisone 40mg po daily -- repeat CXR this morning (+) rhonchi not documented last night -- Pulm consulted SEPSIS SECONDARY TO ABDOMINAL WOUND INFECTION, CELLULITIS -- lactic acid normal -- ff up cultures -- continue Vancomycin, Cefepime Day 2 ID consulted DM 2 -- Lantus 30units BID ISS HTN -- continue Metoprolol CAD s/p STENT -- continue Aspirin, Plavix, Statin, Metoprolol DVT PROPHYLAXIS -- Lovenox CODE STATUS -- DNR DISPOSITION -- pending -- may need SNF Current Inpatient Medications: Current Inpatient Medications Medications (Trade) Dose Ordered Sig/Abdi Route Start Time Stop Time Status Last Admin Dose Admin Ioversol (Optiray 320) 125 ml UD PRN IV 06/20/17 21:45 06/24/17 21:44 Doxycycline Hyclate 100 mg/ Dextrose 110 ml @ 50 mls/hr Q12@0600,1800 IV 06/21/17 18:00 06/28/17 17:59 Enoxaparin Sodium (Lovenox Inj) 40 mg Q24H SC 06/21/17 08:00 07/21/17 07:59 Acetaminophen (Tylenol Tab) 325 mg Q6H PRN PO 06/21/17 03:30 07/21/17 03:29 Insulin Aspart (novoLOG ASPART) SLIDING SCALE If C... ACHS SC 06/21/17 07:00 07/21/17 06:59 Glucose (Glucose 40% Gel) 15-30 GRAMS 15 GRAMS... UD PRN PO 06/21/17 03:30 07/21/17 03:29 Glucose (Glucose Chew Tab) 4-8 Tablets 4 Tabl... UD PRN PO 06/21/17 03:30 07/21/17 03:29 Dextrose (Dextrose 50% 50ML Syringe) 25-50ML OF 50% DW IV FOR... UD PRN IV 06/21/17 03:30 07/21/17 03:29 Glucagon (Glucagon Inj) 1 mg UD PRN SQ 06/21/17 03:30 07/21/17 03:29 Nicotine (Nicoderm Cq 14MG Patch) 1 patch QAM TD 06/21/17 09:00 07/21/17 08:59 Miscellaneous (Remove Nicoderm Patch) 1 ea HS N/A 06/21/17 21:00 07/21/17 20:59 Aspirin (Ecotrin Tab) 81 mg DAILY PO 06/21/17 09:00 07/21/17 08:59 Atorvastatin Calcium (Lipitor Tab) 40 mg DAILY PO 06/21/17 09:00 07/21/17 08:59 Clopidogrel Bisulfate (plAVix TAB) 75 mg DAILY PO 06/21/17 09:00 07/21/17 08:59 Gabapentin (Neurontin Cap) 100 mg TID PO 06/21/17 09:00 07/21/17 08:59 Levothyroxine Sodium (Synthroid Tab) 200 mcg DAILYBB PO 06/21/17 06:00 07/21/17 05:59 06/21/17 05:49 200 MCG Metoprolol Tartrate (Lopressor Tab) 12.5 mg BID PO 06/21/17 09:00 07/21/17 08:59 Pantoprazole Sodium (Protonix Tab) 40 mg DAILY PO 06/21/17 09:00 07/21/17 08:59 Albuterol/ Ipratropium (Duoneb) 3 ml Q2H PRN INH 06/21/17 03:30 07/21/17 03:29 Insulin Glargine (Lantus Solostar Pen) 30 units BID SC 06/22/17 09:00 07/22/17 08:59 Prednisone (PredniSONE TAB) 40 mg DAILY PO 06/21/17 09:00 07/21/17 08:59 Insulin Glargine (Lantus Solostar Pen) 30 units 0323,2100 SC 06/21/17 03:23 06/21/17 21:01 06/21/17 05:52 30 UNITS Ondansetron HCl (Zofran Inj) 4 mg Q6H PRN IV 06/21/17 03:30 07/21/17 03:29 Tramadol HCl (Ultram Tab) not relieved by tyle... Q6H PRN PO 06/21/17 03:30 07/21/17 03:29 Hydromorphone HCl (Dilaudid Inj) 0.5 mg Q6H PRN IV 06/21/17 03:30 07/05/17 03:29 Ipratropium Narka (Atrovent 0.02% 0.5MG/2.5ML Neb) 0.5 mg Q6R INH 06/21/17 09:00 07/21/17 08:59 06/21/17 08:07 0.5 MG Levalbuterol (Xopenex 1.25MG/ 0.5ML Neb) 1.25 mg Q6R INH 06/21/17 09:00 07/21/17 08:59 06/21/17 08:07 1.25 MG Cefepime HCl 2000 mg/Dextrose 112.5 ml @ 200 mls/hr Q12@0600,1800 IV 06/21/17 06:45 06/28/17 06:44 Cefepime HCl (Consult) 1 ea UD PRN N/A 06/21/17 09:00 07/21/17 08:59 Nystatin (Mycostatin Powder) 1 appln TID EXT 06/21/17 09:00 07/21/17 08:59 Vancomycin HCl (Consult) 1 ea UD PRN N/A 06/21/17 09:00 07/21/17 08:59
[2017-06-21] MEDS ORDERED: VANCOMYCIN INJ 1,500 MG in SODIUM CHLORIDE 0.9% 500ML 500 ML IV ONE (09:30)
--- NOTE | 2017-06-21 09:34 | DIAGNOSTIC IMAGING REPORT ---
CHEST ONE VIEW PORTABLE HISTORY: 56 years-old Female respiratory failure and hypoxia. Concern for pneumonia. COMPARISON: Chest radiograph 05/28/2017, chest CT 06/20/2017 TECHNIQUE: Portable upright AP view of the chest. FINDINGS: The patient is rotated to the right. Cardiac silhouette is enlarged. There are progressive bibasilar alveolar opacities with enlarging right pleural effusion. Mild pulmonary vascular congestion is also seen without pneumothorax. The bones appear intact. Patient obesity is noted. IMPRESSION: 1. Cardiomegaly with mild pulmonary vascular congestion. 2. Worsened bibasilar opacities suggest atelectasis or pneumonitis. Right pleural effusion has slightly increased in size. The above report was generated using voice recognition software. It may contain grammatical, syntax or spelling errors. Electronically signed by: Selvin Lui M.D. 06/21/2017 9:33 AM Dictated Date/Time: 06/21/2017 9:30 AM
[2017-06-21] MEDS: NYSTATIN POWDER 15GM BTL EXT SCH ×3 (09:44→19:51)
--- NOTE | 2017-06-21 09:46 | HISTORY & PHYSICAL EXAMINATION ---
DATE OF ADMISSION: 06/21/2017 PRIMARY CARE PHYSICIAN: Dr. Marroquin. HISTORY OF PRESENT ILLNESS: History obtained from patient and records. Medical history significant for chronic respiratory failure secondary to COPD on home O2, ongoing tobacco abuse, cirrhosis secondary to autoimmune hepatitis, CAD, status post stenting, PVD, DM2 insulin requiring, morbid obesity, hypertension, hyperlipidemia, history of MRSA. Recent confinement at [facility] 04/2016 for gangrene of the toe. Patient transferred from [facility]. The patient found to have blackened right fifth toe, subsequent amputation of right foot fifth digit for necrosis. As per the patient, she had breakdown of her old section wound during last year's confinement which healed slowly. The last 2 days the patient noted increasing shortness of breath, cough productive of junky sputum. Denies aspiration. No chest pain. Increasing shortness of breath. No actual fever, chills. Patient fell at home hours ago because of weakness and bad balance. No syncope, no head trauma. Patient brought to the Emergency Room. Given vancomycin for abdominal wall cellulitis. MEDICAL HISTORY: As above. SURGERIES: Tonsillectomy and adenoidectomy, toe amputation, hysterectomy, cholecystectomy. HOME MEDICATIONS: Include oxygen, Humalog, Lantus, levothyroxine, Lopressor, Protonix, Proventil, ProAir, aspirin, atorvastatin, clopidogrel, gabapentin. ALLERGIES: PENICILLIN. FAMILY HISTORY: Diabetes, heart disease. PERSONAL AND SOCIAL HISTORY: One pack daily. No chronic intake of alcoholic beverages. Disabled. REVIEW OF SYSTEMS: As per HPI, all other ROS negative. PHYSICAL EXAMINATION: VITAL SIGNS: Blood pressure noted to be 118/52, pulse rate 70, RR 24, temperature 36.6, sats 96 on room air. GENERAL: Obese, looks older for stated age, unkempt, some respiratory distress. SKIN: Normal color. HEENT: [place] palpebral conjunctivae. Dry mucosa. Nasal cannula noted NECK: Short neck. CHEST: Expiratory wheezes. HEART: Regular rate and rhythm. ABDOMEN: Erythema anterior abdomen. There is an open wound with exposed subcutaneous tissue on the hypogastrium with scant drainage. EXTREMITIES: Minimal LE edema, no tenderness. NEUROLOGIC: No gross focality. LABORATORY DATA: Hemoglobin was noted to be 13.8, hematocrit 40.4, white cell count 12.73, platelets 244. Sodium 133, potassium 3.9, chloride 95, CO2 of 32, BUN 7, creatinine 0.6, glucose 143. Hemoglobin A1c 02/[address] head, no acute pathology. CT chest, initial read cardiomegaly, trace right pleural fluid, mild atelectasis. CT abdomen and pelvis, initial read subcutaneous edema, anasarca, lobulated liver, cholecystectomy, hysterectomy, Hyde catheter. ABG: pH 7.28, pCO2 of 71, pO2 of 62, O2 sats 89.7 on 4 liters. ASSESSMENT: 1. Acute on chronic hypoxemic, hypercapnic respiratory failure secondary to chronic obstructive pulmonary disease exacerbation secondary to complicated bronchitis. No sepsis for now. Possible underlying OHS 2. Respiratory acidosis secondary to above 3. Ongoing tobacco abuse. 4. Abdominal wall cellulitis/panniculitis, possibly from open wound. 5. Coronary artery disease, status post stenting. 6. Peripheral vascular disease. 7. History cirrhosis secondary to autoimmune hepatitis as per records, some degree of decompensation With anasarca 8.. hx MRSA. 9. Functional disability PLAN: PCU. BiPAP. Follow-up ABG Doxycycline, nebs, steroids for complicated bronchitis/COPD exacerbation Pulmonary consult. Re: respiratory failure Outpatient sleep study Nicotine patch. Follow wound cultures, Doxycycline and Cefepime for infected wound causing abdominal wall cellulitis Wound care nurse consult Basal insulin, ISS BG goal 140-180. Carb count coverage indicated for suboptimal blood sugar control Patient due for hemoglobin A1c recheck. PTOT eval DVT prophylaxis, Lovenox subcu. DNR. MTDD
--- NOTE | 2017-06-21 10:56 | Medical Consult ---
Consultation Date of Consultation: Jun 21, 2017. Attending Physician: Yoav Prater MD Reason for Consultation: Abdominal wound infection History of Present Illness Patient is a 56-year-old female who presented the emergency department with complaints of pain after falling at home. The patient states that recently, she has been slightly short of breath at home. She has also been experiencing some mild chest pain and lightheadedness. She states that she has noted an abdominal wound for long time. She feels that her abdominal wound has been there since approximately 2005 when she had surgery on her abdomen. She is uncertain of what surgery it was time. It is noted in the patient's chart that she has had multiple cultures completed of her abdominal wound which have grown polymicrobial infections in the past. She has history of MSSA, Enterococcus, Morganella, Alondra, and alpha strep that have grown from that area recently. The patient was placed empirically on IV vancomycin, doxycycline, and cefepime on admission. Her current cultures are pending. Gram stain is showing gram- positive cocci. Urine culture and blood cultures are pending. Chest x-ray today showed cardiomegaly and worsening bibasilar opacities suggestive of atelectasis or pneumonitis. The patient did also have an abdominal/pelvic CT scan completed which showed subcutaneous edema and anasarca, but no findings of abscess. The patient has had fever to 38.4 C since admission. Her white blood cell count today was 13.45. Her creatinine was 0.58. Past Medical/Surgical History Medical Problems: (1) Abnormal ECG Status: Acute (2) Cellulitis Status: Acute (3) Chest pain Status: Acute (4) COPD (chronic obstructive pulmonary disease) Status: Acute (5) COPD (chronic obstructive pulmonary disease) Status: Acute (6) Dizziness Status: Acute (7) Dizziness Status: Acute (8) Gangrene Status: Acute (9) Hyperglycemia Status: Acute (10) Hypoxia Status: Acute (11) Morbid obesity Status: Acute (12) Open abdominal wall wound Status: Acute (13) Pneumonia Status: Acute (14) Precordial chest pain Status: Acute (15) Right foot infection Status: Acute (16) Uncontrolled diabetes mellitus Status: Acute (17) Yeast infection Status: Acute Medical Problems: (1) Asthma (2) Benign hypertension (3) Chronic obstructive lung disease (4) Cirrhosis of liver (5) Coronary atherosclerosis of [place]it[place] coronary vessel (6) DM type 2 (diabetes mellitus, type 2) (7) Hyperlipidemia (8) Hypothyroidism (9) Morbid obesity with BMI of 40.0-44.9, adult (10) Peripheral vascular disease (11) Pulmonary emphysema (12) Respiratory failure, [id number] (13) TOBACCO USE DISORDER Surgical Problems: (1) History of hysterectomy (2) S/P cholecystectomy (3) S/P coronary artery stent placement (4) S/P tonsillectomy and adenoidectomy Family History FH: diabetes mellitus BROTHER Heart disease MOTHER BROTHER Lung disease FATHER (COPD) SISTER (COPD, asthma) Noncontributory Social History Smoking Status: Current Every Day Smoker Drug Use: none Marital Status: single Housing Status: lives with family Occupation Status: disabled Allergies Coded Allergies: Penicillins (Verified Allergy, Intermediate, RASH, 05/09/16) Home Medications Reported Home Medications Medications Dose Route/Sig Max Daily Dose Days Date Category Proventil 0.083% 2.5MG/3ML (Albuterol Sulf) 2.5 Mg/3 Ml Nebu 2.5 Mg INH Q4H PRN 05/28/17 Reported Gabapentin 100 Mg Cap 100 Mg PO TID 05/28/17 Reported Clopidogrel (Clopidogrel Bisulfate) 75 Mg Tab 75 Mg PO DAILY 05/28/17 Reported Protonix (Pantoprazole Sodium) 20 Mg Tab 20 Mg PO DAILY 05/28/17 Reported Atorvastatin Calcium (Atorvastatin) 40 Mg Tab 40 Mg PO DAILY 05/28/17 Reported Lopressor (Metoprolol Tartrate) 25 Mg Tab 12.5 Mg PO BID 05/28/17 Reported Levothyroxine Sodium 200 Mcg Tab 200 Mcg PO DAILY 05/28/17 Reported Humalog Kwikpen (Insulin Lispro (Human)) 100 Unit/Ml Inj 24 Units SC AC 05/28/17 Reported Lantus Solostar (Insulin Glargine) 100 Unit/Ml Inj 55 Units SC QAM 05/28/17 Reported Proair Respiclick (Albuterol Sulfate) 108 Mcg/Act Aer 2 Puffs INH Q4H PRN 05/28/17 Reported Oxygen Gas 4 Liters NA HS 05/09/16 Reported Aspirin EC Low Dose (Aspirin) 81 Mg Ectab 81 Mg PO DAILY 02/28/16 Reported Current Inpatient Medications Current Inpatient Medications Medications (Trade) Dose Ordered Sig/Abdi Route Start Time Stop Time Status Last Admin Dose Admin Ioversol (Optiray 320) 125 ml UD PRN IV 06/20/17 21:45 06/24/17 21:44 Doxycycline Hyclate 100 mg/ Dextrose 110 ml @ 50 mls/hr Q12@0600,1800 IV 06/21/17 18:00 06/28/17 17:59 Enoxaparin Sodium (Lovenox Inj) 40 mg Q24H SC 06/21/17 08:00 07/21/17 07:59 06/21/17 08:55 40 MG Acetaminophen (Tylenol Tab) 325 mg Q6H PRN PO 06/21/17 03:30 07/21/17 03:29 Insulin Aspart (novoLOG ASPART) SLIDING SCALE If C... ACHS SC 06/21/17 07:00 07/21/17 06:59 06/21/17 08:59 2 UNITS Glucose (Glucose 40% Gel) 15-30 GRAMS 15 GRAMS... UD PRN PO 06/21/17 03:30 07/21/17 03:29 Glucose (Glucose Chew Tab) 4-8 Tablets 4 Tabl... UD PRN PO 06/21/17 03:30 07/21/17 03:29 Dextrose (Dextrose 50% 50ML Syringe) 25-50ML OF 50% DW IV FOR... UD PRN IV 06/21/17 03:30 07/21/17 03:29 Glucagon (Glucagon Inj) 1 mg UD PRN SQ 06/21/17 03:30 07/21/17 03:29 Nicotine (Nicoderm Cq 14MG Patch) 1 patch QAM TD 06/21/17 09:00 07/21/17 08:59 06/21/17 08:58 1 PATCH Miscellaneous (Remove Nicoderm Patch) 1 ea HS N/A 06/21/17 21:00 07/21/17 20:59 Aspirin (Ecotrin Tab) 81 mg DAILY PO 06/21/17 09:00 07/21/17 08:59 06/21/17 08:56 81 MG Atorvastatin Calcium (Lipitor Tab) 40 mg DAILY PO 06/21/17 09:00 07/21/17 08:59 06/21/17 08:56 40 MG Clopidogrel Bisulfate (plAVix TAB) 75 mg DAILY PO 06/21/17 09:00 07/21/17 08:59 06/21/17 08:56 75 MG Gabapentin (Neurontin Cap) 100 mg TID PO 06/21/17 09:00 07/21/17 08:59 06/21/17 08:56 100 MG Levothyroxine Sodium (Synthroid Tab) 200 mcg DAILYBB PO 06/21/17 06:00 07/21/17 05:59 06/21/17 05:49 200 MCG Metoprolol Tartrate (Lopressor Tab) 12.5 mg BID PO 06/21/17 09:00 07/21/17 08:59 06/21/17 08:56 12.5 MG Pantoprazole Sodium (Protonix Tab) 40 mg DAILY PO 06/21/17 09:00 07/21/17 08:59 06/21/17 08:56 40 MG Albuterol/ Ipratropium (Duoneb) 3 ml Q2H PRN INH 06/21/17 03:30 07/21/17 03:29 Insulin Glargine (Lantus Solostar Pen) 30 units BID SC 06/22/17 09:00 07/22/17 08:59 Prednisone (PredniSONE TAB) 40 mg DAILY PO 06/21/17 09:00 07/21/17 08:59 06/21/17 08:56 40 MG Insulin Glargine (Lantus Solostar Pen) 30 units 0323,2100 SC 06/21/17 03:23 06/21/17 21:01 06/21/17 05:52 30 UNITS Ondansetron HCl (Zofran Inj) 4 mg Q6H PRN IV 06/21/17 03:30 07/21/17 03:29 Tramadol HCl (Ultram Tab) not relieved by tyle... Q6H PRN PO 06/21/17 03:30 07/21/17 03:29 Hydromorphone HCl (Dilaudid Inj) 0.5 mg Q6H PRN IV 06/21/17 03:30 07/05/17 03:29 Ipratropium [place] (Atrovent 0.02% 0.5MG/2.5ML Neb) 0.5 mg Q6R INH 06/21/17 09:00 07/21/17 08:59 06/21/17 08:07 0.5 MG Levalbuterol (Xopenex 1.25MG/ 0.5ML Neb) 1.25 mg Q6R INH 06/21/17 09:00 07/21/17 08:59 06/21/17 08:07 1.25 MG Cefepime HCl 2000 mg/Dextrose 112.5 ml @ 200 mls/hr Q12@0600,1800 IV 06/21/17 06:45 06/28/17 06:44 06/21/17 08:57 200 MLS/HR Cefepime HCl (Consult) 1 ea UD PRN N/A 06/21/17 09:00 07/21/17 08:59 Nystatin (Mycostatin Powder) 1 appln TID EXT 06/21/17 09:00 07/21/17 08:59 06/21/17 09:44 5 APPLN Vancomycin HCl (Consult) 1 ea UD PRN N/A 06/21/17 09:00 07/21/17 08:59 Vancomycin HCl 1500 mg/Sodium Chloride 530 ml @ 200 mls/hr NOW ONCE IV 06/21/17 09:30 06/21/17 12:08 06/21/17 09:44 200 MLS/HR Review of Systems Constitutional: + fever, + chills, + sweats, + fatigue Eyes: No worsening of vision ENT: No hearing loss Respiratory: + cough, + wheezing, + shortness of breath, + dyspnea on exertion Cardiovascular: No chest pain Abdomen: No pain, No nausea, No vomiting Musculoskeletal: No joint pain Genitourinary - Female: No dysuria Integumentary: + new/changing skin lesions, + color change (erythema of abdominal wall, open wound of right lower abdomen- previous surgical site 2005) , No rash, No itch Physical Exam Date Time Temp Pulse Resp B/P (MAP) Pulse Ox O2 Delivery O2 Flow Rate FiO2 06/21/17 08:21 37.4 68 20 144/78 (100) 92 Nasal Cannula 5.0 161/37 (78) 06/21/17 07:37 62 91 50 06/21/17 07:35 62 22 91 BiPAP/CPAP 50 06/21/17 06:22 68 98 50 06/21/17 04:21 38.4 78 18 118/62 89 Nasal Cannula 4.0 7/25/17 04:00 93 BiPAP 4.0 50 06/21/17 04:00 74 94 50 06/21/17 02:19 75 22 97/48 89 Nasal Cannula 4.0 06/21/17 01:13 76 06/21/17 00:18 76 20 126/70 91 Nasal Cannula 4.0 06/20/17 23:16 72 20 111/60 93 Nasal Cannula 4.0 06/20/17 22:02 69 22 118/52 95 Nasal Cannula 4.0 06/20/17 21:24 91 Nasal Cannula 4.0 06/20/17 21:21 70 06/20/17 21:18 36.6 70 24 118/52 76 Room Air General Appearance: no apparent distress, + obese Head: normocephalic, atraumatic Eyes: normal inspection, sclerae normal ENT: hearing grossly normal Neck: supple, trachea midline Respiratory/Chest: chest non-tender, + accessory muscle use (mild), + wheezing (bilateral upper lobes R>L) Cardiovascular: regular rate, rhythm, no murmur Abdomen/GI: normal bowel sounds, + pertinent finding (Right lower abdomen with erythema, tenderness, and foul odor) Neurologic/Psych: alert, normal mood/affect Skin: + pertinent finding (open wound of the right lower abdomen under the pannus) Laboratory Results CHEST ONE VIEW PORTABLE HISTORY: 56 years-old Female respiratory failure and hypoxia. Concern for pneumonia. COMPARISON: Chest radiograph 05/28/2017, chest CT 06/20/2017 TECHNIQUE: Portable upright AP view of the chest. FINDINGS: The patient is rotated to the right. Cardiac silhouette is enlarged. There are progressive bibasilar alveolar opacities with enlarging right pleural effusion. Mild pulmonary vascular congestion is also seen without pneumothorax. The bones appear intact. Patient obesity is noted. IMPRESSION: 1. Cardiomegaly with mild pulmonary vascular congestion. 2. Worsened bibasilar opacities suggest atelectasis or pneumonitis. Right pleural effusion has slightly increased in size. RUN DATE: 06/21/17 [facility] PAGE 1 RUN TIME: 918 Specimen Inquiry PATIENT: JENNIFER LEVIN LOC: [facility] U # : [id number] AGE/SX: 56/F ROOM: [facility] REG : 06/21/[address]: Yoav Prater MD : 1960 BED: 1 DIS : STATUS: ADM IN TLOC: SPEC #: [id number] LUIS: 06/20/17 STATUS: RES REQ #: [id number] RECD: 06/20/[address]: Flores Novak DO SOURCE: DRAIN-SURF ENTR: 06/20/[address] [facility] [address]: Ren Marroquin M.D. SPDESC: ABD ORDERED: SURF ALEA RODRIGUEZ/ASHER COMMENTS: Has Specimen Been Obtained/Collected? Y Procedure Result Verified Site GRAM STAIN Final 06/21/17-918 RESULT RARE WBCs SEEN FEW GRAM POSITIVE COCCI SURFACE WOUND CULTURE PENDING Item Value Date Time Blood Culture Received 06/20/177 Blood Pending Blood Culture Received 06/20/17 2216 Blood Pending Urine Culture Received 06/20/17 2154 Urine,Catheterized Pending Gram Stain - Final Resulted 06/20/170 Drainage - Surface Abdomen Last 24 Hours Test 06/20/17 21:00 06/20/17 21:54 06/20/17 22:27 06/21/17 02:15 White Blood Count 12.73 K/uL Red Blood Count 4.36 M/uL Hemoglobin 13.8 g/dL Hematocrit 43.4 % Mean Corpuscular Volume 99.5 fL Mean Corpuscular Hemoglobin 31.7 pg Mean Corpuscular Hemoglobin Concent 31.8 g/dl Platelet Count 244 K/uL Mean Platelet Volume 9.5 fL Neutrophils (%) (Auto) 82.1 % Lymphocytes (%) (Auto) 9.8 % Monocytes (%) (Auto) 6.7 % Eosinophils (%) (Auto) 0.6 % Basophils (%) (Auto) 0.1 % Neutrophils # (Auto) 10.45 K/uL Lymphocytes # (Auto) 1.25 K/uL Monocytes # (Auto) 0.85 K/uL Eosinophils # (Auto) 0.08 K/uL Basophils # (Auto) 0.01 K/uL RDW Standard Deviation 55.1 fL RDW Coefficient of Variation 15.1 % Immature Granulocyte % (Auto) 0.7 % Immature Granulocyte # (Auto) 0.09 K/uL Prothrombin Time 10.5 SECONDS Prothromb Time International Ratio 1.0 Sodium Level 133 mmol/L Potassium Level 3.9 mmol/L Chloride Level 95 mmol/L Carbon Dioxide Level 32 mmol/L Anion Gap 6.0 mmol/L Blood Urea Nitrogen 7 mg/dl Creatinine 0.65 mg/dl Est Creatinine Clear Calc Drug Dose 125.5 ml/min Estimated GFR () 114.2 Estimated GFR (Non- 98.6 BUN/Creatinine Ratio 10.5 Random Glucose 143 mg/dl Estimated Average Glucose 212 mg/dl Hemoglobin A1c 9.0 % Calcium Level 9.4 mg/dl Magnesium Level 1.9 mg/dl Total Bilirubin 0.9 mg/dl Aspartate Amino Transf (AST/SGOT) 35 U/L Alanine Aminotransferase (ALT/SGPT) 29 U/L Alkaline Phosphatase 217 U/L Troponin I < 0.015 ng/ml Pro-B-Type Natriuretic Peptide 553 pg/ml Total Protein 7.2 gm/dl Albumin 2.3 gm/dl Globulin 4.9 gm/dl Albumin/Globulin Ratio 0.5 Lipase 90 U/L Thyroid Stimulating Hormone (TSH) 4.700 uIu/ml Urine Color DK YELLOW Urine Appearance CLEAR Urine pH 7.5 Urine Specific [place] 1.020 Urine Protein TRACE Urine Glucose (UA) NEG Urine Ketones NEG Urine Occult Blood NEG Urine Nitrite NEG Urine Bilirubin NEG Urine Urobilinogen POS Urine Leukocyte Esterase TRACE Urine WBC (Auto) 1-5 /hpf Urine RBC (Auto) 0-4 /hpf Urine Hyaline Casts (Auto) 1-5 /lpf Urine Epithelial Cells (Auto) >30 /lpf Urine Bacteria (Auto) NEG Lactic Acid Level 1.4 mmol/L Arterial Blood pH 7.28 Arterial Blood Partial Pressure CO2 71 mmHg Arterial Blood Partial Pressure O2 62 mm/Hg Arterial Blood HCO3 32 mmol/L Arterial Blood Oxygen Saturation 89.7 % Arterial Blood Base Excess 3.5 mEq/L Arterial Blood Gas Delivery 4 L Alon Test POS Test 06/21/17 05:26 06/21/17 05:32 06/21/17 05:43 7/25/17 08:03 White Blood Count 13.45 K/uL Red Blood Count 4.39 M/uL Hemoglobin 14.1 g/dL Hematocrit 45.2 % Mean Corpuscular Volume 103.0 fL Mean Corpuscular Hemoglobin 32.1 pg Mean Corpuscular Hemoglobin Concent 31.2 g/dl Platelet Count 222 K/uL Mean Platelet Volume 9.6 fL Neutrophils (%) (Auto) 89.9 % Lymphocytes (%) (Auto) 3.6 % Monocytes (%) (Auto) 5.4 % Eosinophils (%) (Auto) 0.3 % Basophils (%) (Auto) 0.1 % Neutrophils # (Auto) 12.11 K/uL Lymphocytes # (Auto) 0.48 K/uL Monocytes # (Auto) 0.72 K/uL Eosinophils # (Auto) 0.04 K/uL Basophils # (Auto) 0.01 K/uL RDW Standard Deviation 57.8 fL RDW Coefficient of Variation 15.3 % Immature Granulocyte % (Auto) 0.7 % Immature Granulocyte # (Auto) 0.09 K/uL Sodium Level 136 mmol/L Potassium Level 3.9 mmol/L Chloride Level 98 mmol/L Carbon Dioxide Level 35 mmol/L Anion Gap 3.0 mmol/L Blood Urea Nitrogen 7 mg/dl Creatinine 0.58 mg/dl Est Creatinine Clear Calc Drug Dose 138.5 ml/min Estimated GFR () 118.6 Estimated GFR (Non- 102.3 BUN/Creatinine Ratio 11.3 Random Glucose 159 mg/dl Calcium Level 9.0 mg/dl Ammonia 31.0 umol/L Troponin I < 0.015 ng/ml Bedside Glucose 159 mg/dl 164 mg/dl Arterial Blood pH 7.30 Arterial Blood Partial Pressure CO2 67 mmHg Arterial Blood Partial Pressure O2 69 mm/Hg Arterial Blood HCO3 32 mmol/L Arterial Blood Oxygen Saturation 92.3 % Arterial Blood Base Excess 4.2 mEq/L Arterial Blood Gas Delivery 4 Alon Test POS Assessment & Plan Patient with right lower abdominal wound and cellulitis. She also has probable pneumonitis which worsened on most recent X-Ray. GPC on gram stain, but patient has had polymicrobial infection of this area in the past as well. She is currently on IV Vancomycin, Cefepime, and Doxycycline. Will transition IV Doxycycline to PO Doxycycline. Continue IV Vanco and Cefepime pending culture results. We will follow. PROVIDER ADDENDUM: Patient examined and reviewed with Mrs. Del Rio. Agree with above assessment.
[2017-06-21] MEDS ORDERED: PHARMACY GLYCEMIC MGMT CONSULT SCH (11:03)
--- NOTE | 2017-06-21 11:06 | Pulmonary Consultation ---
History General Date of Service: Jun 21, 2017. Stated Complaint: Respiratory Failure, [id number] HPI The patient is a 56 year old female who presents to [facility] with complaints of Respiratory Failure, [id number]. The patient's primary care provider is Ren Marroquin M.D. Patient presented through the [facility] ER 06/20/17 with left sided chest and abdominal pain s/p fall post micturition without LOC. Additionally, she reported 1-1.5 week history of loose cough without associated dyspnea, fevers/ chills or chest pain. Prior records were reviewed. PMHx includes: COPD/pulmonary emphysema (PFT 2005 - moderate restrictive process), nocturnal O2 (4LPM), IDDM, HLD, abdominal wound - poor healing, hypothyroid, morbid obesity, h/o admission (02/2016- pneumonia) and CAD s/p ISABEL-RCA (11/2011), h/o MRSA. Tobacco use: 42-pack year, current 1/2-ppd. In the ER she was hypoxic 76%-21%. AB.28/71/62-4LPM/32 requiring O2 titration and BiPAP. Labs notable for leukocytosis. Lactic acid and ammonia: unremarkable. Exam and radiographic findings suggestive of abdominal cellulitis with h/o non-healing wound. She is treated with PO steroid, broad spectrum antibiotic (doxycycline, cefepime & vancomycin). Wound and BC: pending. 06/20/17 CT Head & Neck: unremarkable 06/20/17 CT Abd/Pelvis with contrast: "IMPRESSION: 1. No evidence of traumatic injury to the solid abdominal viscera 2. Subcutaneous edema/anasarca of the anterior abdominal wall 3. Lobulated liver with trace perihepatic ascites" 06/20/17 CT Chest: "IMPRESSION" 1. No acute cardiopulmonary process. No evidence of posttraumatic injury to the chest 2. No pneumothorax 3. Trace right pleural effusion with bibasilar opacities suggesting atelectasias. There is multifocal air trapping 4. Trace perihepatic ascites with moderate diffuse body wall edema" Also noted were posterior RML/RLL cyst 06/21/17 Chest X-ray: "IMPRESSION 1. Cardiomegaly with mild pulmonary vascular congestion. 2. Worsened bibasilar opacities suggest atelectasis or pneumonitis. Right pleural effusion has slightly increased in size Patient states that she has never seen a pourer crane ladle before. She reports she uses an inhaler daily but is unsure what it is called. Additionally, she states she has a nebulizer at home which she will use on average TID. She denies symptoms of chronic daily cough. Denies any history of PT/DVT, aspiration or dysphagia. She states that she will become dyspneic with daily activities such as showering, shopping or running the vacuum light cleaner. She is a life-long [facility] resident. She lives in a first floor apartment with her boyfriend and pet cat. She denies current or former ETOH use. She is a current smoker: 40+ pack year, current 1/2 ppd. Additional exposure through her parents who were both heavy smokers. 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 Patient denies ever having completed a PSG. She states that her boyfriend does tell her that she snores and has witnessed apneic events. Historian: patient Review of Systems Constitutional: denies: chills, fever Eyes: reports: no symptoms ENT: reports: nasal pain, denies: rhinorrhea, sore throat Cardiovascular: reports: edema, denies: chest pain, chest pressure, syncope Respiratory: reports: as stated in HPI, cough, shortness of breath, denies: wheezing, sputum production, hemoptysis Gastrointestinal: reports: abdominal pain, denies: vomiting Integumentary: reports: rash, redness Psychiatric: denies: alcohol abuse, drug abuse Past Medical History Past Medical History: 1. COPD/Pulmonary emphysema 2. Obesity 3. Coronary artery disease s/p ISABEL - RCA 4. Diabetes mellitus type II 5. Hypothyroid 6. Hypertension 7. Dyslipidemia 8. h/o LLQ abdominal wound 9. Acute hypoxic respiratory failure secondary to pneumonia 02/2016 Past Surgical History: 1. Cholecystectomy 2. section 3. Hysterectomy 4. Tonsillectomy - Adenoidectomy 5. Heart catheterization with ISABEL - RCA 11/2011 Family History FH: diabetes mellitus BROTHER Heart disease MOTHER BROTHER Lung disease FATHER (COPD) SISTER (COPD, asthma) Social History Hx Tobacco Use In Past Year?: Yes Smoking Status: Current Every Day Smoker Marital status: single Housing status: lives alone Occupational Status: disabled Immunizations History of Influenza Vaccine: Yes History of Tetanus Vaccine?: Unknown History of Pneumococcal: Yes Pneumococcal Date: Jan 05, 2008 History of Hepatitis B Vaccine: No History of MDRO History of MDRO: No Allergies Coded Allergies: Penicillins (Verified Allergy, Intermediate, RASH, 05/09/16) Current Medications Reported Home Medications Medications Dose Route/Sig Max Daily Dose Days Date Category Proventil 0.083% 2.5MG/3ML (Albuterol Sulf) 2.5 Mg/3 Ml Nebu 2.5 Mg INH Q4H PRN 05/28/17 Reported Gabapentin 100 Mg Cap 100 Mg PO TID 05/28/17 Reported Clopidogrel (Clopidogrel Bisulfate) 75 Mg Tab 75 Mg PO DAILY 05/28/17 Reported Protonix (Pantoprazole Sodium) 20 Mg Tab 20 Mg PO DAILY 05/28/17 Reported Atorvastatin Calcium (Atorvastatin) 40 Mg Tab 40 Mg PO DAILY 05/28/17 Reported Lopressor (Metoprolol Tartrate) 25 Mg Tab 12.5 Mg PO BID 05/28/17 Reported Levothyroxine Sodium 200 Mcg Tab 200 Mcg PO DAILY 05/28/17 Reported Humalog Kwikpen (Insulin Lispro (Human)) 100 Unit/Ml Inj 24 Units SC AC 05/28/17 Reported Lantus Solostar (Insulin Glargine) 100 Unit/Ml Inj 55 Units SC QAM 05/28/17 Reported Proair Respiclick (Albuterol Sulfate) 108 Mcg/Act Aer 2 Puffs INH Q4H PRN 05/28/17 Reported Oxygen Gas 4 Liters NA HS 05/09/16 Reported Aspirin EC Low Dose (Aspirin) 81 Mg Ectab 81 Mg PO DAILY 02/28/16 Reported Physical Physical Exam Vital Signs: Date Time Temp Pulse Resp B/P (MAP) Pulse Ox O2 Delivery O2 Flow Rate FiO2 06/21/17 08:21 37.4 68 20 144/78 (100) 92 Nasal Cannula 5.0 161/37 (78) 06/21/17 07:37 62 91 50 06/21/17 07:35 62 22 91 BiPAP/CPAP 50 06/21/17 06:22 68 98 50 06/21/17 04:21 38.4 78 18 118/62 89 Nasal Cannula 4.0 06/21/17 04:00 93 BiPAP 4.0 50 06/21/17 04:00 74 94 50 06/21/17 02:19 75 22 97/48 89 Nasal Cannula 4.0 06/21/17 01:13 76 06/21/17 00:18 76 20 126/70 91 Nasal Cannula 4.0 06/20/17 23:16 72 20 111/60 93 Nasal Cannula 4.0 06/20/17 22:02 69 22 118/52 95 Nasal Cannula 4.0 06/20/17 21:24 91 Nasal Cannula 4.0 06/20/17 21:21 70 06/20/17 21:18 36.6 70 24 118/52 76 Room Air Constitutional: Acutely ill morbidly obese female sleeping quietly in hospital bed. NAD Head: + facial symmetry Eyes: EOMi, PERRLA, no injection Mouth: Dentures in place. Missing dentition. Mallampati III with frothy secretions and large tongue. Neck: Large circumference Respiratory: O2 via NC. Non-labored respirations. Coarse rales bilaterally Left > Right. No wheeze CV: Diminished S1, S2. ++ LE edema GI: queen catheter draining dark blood tinged urine MSK/Extremities: UEs moving symmetrically. LE with edema bilaterally and non- lineated erythema of the dorsum of the left food and anterior right ankle. Neurologic: Alert, cooperative. Diagnostics Labs Results Past 24 Hours Test 06/20/17 21:00 06/20/17 21:54 06/20/17 22:27 06/21/17 02:15 Range/Units White Blood Count 12.73 4.8-10.8 K/uL Red Blood Count 4.36 4.2-5.4 M/uL Hemoglobin 13.8 12.0-16.0 g/dL Hematocrit 43.4 37-47 % Mean Corpuscular Volume 99.5 80-100 fL Mean Corpuscular Hemoglobin 31.7 25-34 pg Mean Corpuscular Hemoglobin Concent 31.8 32-36 g/dl Platelet Count 244 130-400 K/uL Mean Platelet Volume 9.5 7.4-10.4 fL Neutrophils (%) (Auto) 82.1 % Lymphocytes (%) (Auto) 9.8 % Monocytes (%) (Auto) 6.7 % Eosinophils (%) (Auto) 0.6 % Basophils (%) (Auto) 0.1 % Neutrophils # (Auto) 10.45 1.4-6.5 K/uL Lymphocytes # (Auto) 1.25 1.2-3.4 K/uL Monocytes # (Auto) 0.85 0.11-0.59 K/uL Eosinophils # (Auto) 0.08 0-0.5 K/uL Basophils # (Auto) 0.01 0-0.2 K/uL RDW Standard Deviation 55.1 36.4-46.3 fL RDW Coefficient of Variation 15.1 11.5-14.5 % Immature Granulocyte % (Auto) 0.7 % Immature Granulocyte # (Auto) 0.09 0.00-0.02 K/uL Prothrombin Time 10.5 9.0-12.0 SECONDS Prothromb Time International Ratio 1.0 0.9-1.1 Sodium Level 133 136-145 mmol/L Potassium Level 3.9 3.5-5.1 mmol/L Chloride Level 95 98-107 mmol/L Carbon Dioxide Level 32 21-32 mmol/L Anion Gap 6.0 3-11 mmol/L Blood Urea Nitrogen 7 7-18 mg/dl Creatinine 0.65 0.60-1.20 mg/dl Est Creatinine Clear Calc Drug Dose 125.5 ml/min Estimated GFR () 114.2 Estimated GFR (Non- 98.6 BUN/Creatinine Ratio 10.5 10-20 Random Glucose 143 70-99 mg/dl Estimated Average Glucose 212 mg/dl Hemoglobin A1c 9.0 4.5-5.6 % Calcium Level 9.4 8.5-10.1 mg/dl Magnesium Level 1.9 1.8-2.4 mg/dl Total Bilirubin 0.9 0.2-1 mg/dl Aspartate Amino Transf (AST/SGOT) 35 15-37 U/L Alanine Aminotransferase (ALT/SGPT) 29 12-78 U/L Alkaline Phosphatase 217 45-117 U/L Troponin I < 0.015 0-0.045 ng/ml Pro-B-Type Natriuretic Peptide 553 0-900 pg/ml Total Protein 7.2 6.4-8.2 gm/dl Albumin 2.3 3.4-5.0 gm/dl Globulin 4.9 2.5-4.0 gm/dl Albumin/Globulin Ratio 0.5 0.9-2 Lipase 90 73-393 U/L Thyroid Stimulating Hormone (TSH) 4.700 0.300-4.500 uIu/ml Urine Color DK YELLOW Urine Appearance CLEAR CLEAR Urine pH 7.5 4.5-7.5 Urine Specific [place] 1.020 1.000-1.030 Urine Protein TRACE NEG Urine Glucose (UA) NEG NEG Urine Ketones NEG NEG Urine Occult Blood NEG NEG Urine Nitrite NEG NEG Urine Bilirubin NEG NEG Urine Urobilinogen POS NEG Urine Leukocyte Esterase TRACE NEG Urine WBC (Auto) 1-5 0-5 /hpf Urine RBC (Auto) 0-4 0-4 /hpf Urine Hyaline Casts (Auto) 1-5 0-5 /lpf Urine Epithelial Cells (Auto) >30 0-5 /lpf Urine Bacteria (Auto) NEG NEG Lactic Acid Level 1.4 0.4-2.0 mmol/L Arterial Blood pH 7.28 7.35-7.45 Arterial Blood Partial Pressure CO2 71 35-46 mmHg Arterial Blood Partial Pressure O2 62 80-95 mm/Hg Arterial Blood HCO3 32 19-24 mmol/L Arterial Blood Oxygen Saturation 89.7 90-95 % Arterial Blood Base Excess 3.5 -9-1.8 mEq/L Arterial Blood Gas Delivery 4 L Alon Test POS POS Test 06/21/17 05:26 06/21/17 05:32 06/21/17 05:43 06/21/17 08:03 Range/Units White Blood Count 13.45 4.8-10.8 K/uL Red Blood Count 4.39 4.2-5.4 M/uL Hemoglobin 14.1 12.0-16.0 g/dL Hematocrit 45.2 37-47 % Mean Corpuscular Volume 103.0 80-100 fL Mean Corpuscular Hemoglobin 32.1 25-34 pg Mean Corpuscular Hemoglobin Concent 31.2 32-36 g/dl Platelet Count 222 130-400 K/uL Mean Platelet Volume 9.6 7.4-10.4 fL Neutrophils (%) (Auto) 89.9 % Lymphocytes (%) (Auto) 3.6 % Monocytes (%) (Auto) 5.4 % Eosinophils (%) (Auto) 0.3 % Basophils (%) (Auto) 0.1 % Neutrophils # (Auto) 12.11 1.4-6.5 K/uL Lymphocytes # (Auto) 0.48 1.2-3.4 K/uL Monocytes # (Auto) 0.72 0.11-0.59 K/uL Eosinophils # (Auto) 0.04 0-0.5 K/uL Basophils # (Auto) 0.01 0-0.2 K/uL RDW Standard Deviation 57.8 36.4-46.3 fL RDW Coefficient of Variation 15.3 11.5-14.5 % Immature Granulocyte % (Auto) 0.7 % Immature Granulocyte # (Auto) 0.09 0.00-0.02 K/uL Sodium Level 136 136-145 mmol/L Potassium Level 3.9 3.5-5.1 mmol/L Chloride Level 98 98-107 mmol/L Carbon Dioxide Level 35 21-32 mmol/L Anion Gap 3.0 3-11 mmol/L Blood Urea Nitrogen 7 7-18 mg/dl Creatinine 0.58 0.60-1.20 mg/dl Est Creatinine Clear Calc Drug Dose 138.5 ml/min Estimated GFR () 118.6 Estimated GFR (Non- 102.3 BUN/Creatinine Ratio 11.3 10-20 Random Glucose 159 70-99 mg/dl Calcium Level 9.0 8.5-10.1 mg/dl Ammonia 31.0 11-32 umol/L Troponin I < 0.015 0-0.045 ng/ml Bedside Glucose 159 164 70-90 mg/dl Arterial Blood pH 7.30 7.35-7.45 Arterial Blood Partial Pressure CO2 67 35-46 mmHg Arterial Blood Partial Pressure O2 69 80-95 mm/Hg Arterial Blood HCO3 32 19-24 mmol/L Arterial Blood Oxygen Saturation 92.3 90-95 % Arterial Blood Base Excess 4.2 -9-1.8 mEq/L Arterial Blood Gas Delivery 4 Alon Test POS POS Microbiology Results 06/20/17 Blood Culture, Received Pending 06/20/17 Blood Culture, Received Pending 06/20/17 Urine Culture, Received Pending 06/20/17 Gram Stain - Final, Resulted 06/20/17 Wound Culture, Resulted Pending Impression Assessment and Plan 1. Hypercarbic hypoxic respiratory failure: improving - Agree with PO steroid and Q6 nebulized bronchodilators - Will need outpatient PFTs - Smoking cessation education 2. Hypercarbic respiratory failure with in the setting of nocturnal hypoxia, obesity, and h/o snoring and witnessed apneas - suspect OHS - Cautious use of narcotic pain control - Nocturnal BiPAP, HOB: 20-30degrees while asleep - Outpatient split-night PSG vs in-patient qualifying nocturnal oximetry + AM ABG prior to discharge 3. Small Pleural Effusion: minimal - patient O2 stable and clinically improving - observe - I/Os, net negative fluid balance Case discussed with Dr. Naik The case was discussed and patient reviewed and the plan is agreed upon.
[2017-06-21] MEDS ORDERED: INSULIN GLARGINE SOLOSTAR 100 UNITS/ML 3 ML PEN SC ONE (11:15)
--- NOTE | 2017-06-21 11:31 | Pharmacy Progress Note ---
Glycemic Control Intl Consult Date of Service Jun 21, 2017. Scope Glycemic Pharmacist consulted by Dr Prater on 06/21/17 for glycemic control and to write orders per [facility] inpatient glycemic control protocol Objective Weight (Kilograms): 133.300 Accuchecks BSG (last 24hrs): Test 06/20/17 21:00 06/21/17 05:26 06/21/17 05:32 06/21/17 08:03 Random Glucose 143 mg/dl (70-99) 159 mg/dl (70-99) Bedside Glucose 159 mg/dl (70-90) 164 mg/dl (70-90) Laboratory Data (last 24hrs) Test 06/20/17 21:00 06/21/17 05:26 Anion Gap 6.0 mmol/L 3.0 mmol/L BUN/Creatinine Ratio 10.5 11.3 Blood Urea Nitrogen 7 mg/dl 7 mg/dl Creatinine 0.65 mg/dl 0.58 mg/dl Hemoglobin A1c 9.0 % Potassium Level 3.9 mmol/L 3.9 mmol/L Sodium Level 133 mmol/L 136 mmol/L White Blood Count 12.73 K/uL 13.45 K/uL Red Blood Count 4.36 M/uL 4.39 M/uL Hemoglobin 13.8 g/dL 14.1 g/dL Hematocrit 43.4 % 45.2 % Mean Corpuscular Volume 99.5 fL 103.0 fL Mean Corpuscular Hemoglobin 31.7 pg 32.1 pg Mean Corpuscular Hemoglobin Concent 31.8 g/dl 31.2 g/dl Platelet Count 244 K/uL 222 K/uL Mean Platelet Volume 9.5 fL 9.6 fL Neutrophils (%) (Auto) 82.1 % 89.9 % Lymphocytes (%) (Auto) 9.8 % 3.6 % Monocytes (%) (Auto) 6.7 % 5.4 % Eosinophils (%) (Auto) 0.6 % 0.3 % Basophils (%) (Auto) 0.1 % 0.1 % Neutrophils # (Auto) 10.45 K/uL 12.11 K/uL Lymphocytes # (Auto) 1.25 K/uL 0.48 K/uL Monocytes # (Auto) 0.85 K/uL 0.72 K/uL Eosinophils # (Auto) 0.08 K/uL 0.04 K/uL Basophils # (Auto) 0.01 K/uL 0.01 K/uL HbA1c Test 06/20/17 21:00 Hemoglobin A1c 9.0 % (4.5-5.6) H Recent Pertinent Medications Outpatient Anti-diabetic Regimen: * Lantus 55 units SQ Q AM * Novolog 24 units SQ w/ meals * A1c = 9 % 06/20/17 The patient is currently receiving: * Basal insulin: Lantus 30 units every 12 hours * Correctional Insulin: Novolog Correction per scale ACHS Goal Range: Low 140 mg/dL - High 180 mg/dL Correction Factor: 25 mg/dL/unit * Prandial insulin: Per carb ratio of 1 unit per 15 grams CHO consumed Risk Factors for Insulin Resistance: * Steroids: Solu-medrol 40mg x1 and Prednisone 40mg PO x 1 given this AM; ongoing orders are for Solu-Medrol 40mg IV Q 8 hours * Infection: abd wound cellulitis / acute bronchitis; ordered vancomycin and cefepime * Diet: ordered T2DM diet; she did consume breakfast today Assessment & Plan ASSESSMENT: 06/21/17 * Type 2 diabetic known to glycemic control service from prior admissions * She is admitted with acute on chronic resp failure secondary to COPD exac / acute bronchitis as well as abdominal wound cellulitis * BSGs are well controlled at this time, however she did begin high dose IV steroids this AM. In the past this has led to greatly increased insulin resistance. She has required > 200 units of insulin per day when receiving IV steroids in the past with less than adequate response. * Will begin an aggressive insulin regimen based upon an anticipated total daily insulin requirement of ~200 units per day while on the current steroid dose and tolerating a diet. * Will follow BSG pattern closely today as doses may need to be quickly titrated if control is deteriorating. PLAN FOR INPATIENT GLYCEMIC CONTROL: * Increasing Lantus to 50 units SQ BID starting tomorrow AM; will load upfront with and additional 40 units with lunch (received 30 units this AM already). Will give an additional 15-30 units at bedtime depending on BSG response (15 units for BSG below 140, 30 units for BSG above 140) * Changing correction factor to 10 mg/dl/unit * Changing carb ratio to 1 unit per 4 grams CHO consumed * Changing goal range to Low 110 mg/dL - High 140 mg/dL * Add addition BSG checks at 0000 and 0400 and cover with the above Novolog parameters * Reassess insulin doses with each step down in steroid dose. * Please note that the plan above was derived based on current level of insulin resistance and hospital stress. These recommendations are appropriate for inpatient admission only. Plan of care upon discharge will need to be reassessed to avoid potential outpatient hypo/hyperglycemia. Thank you.
--- NOTE | 2017-06-21 11:45 | Pharmacy Progress Note ---
Pharmacy Abx Initial Consult Date of Service Jun 21, 2017. Pharmacy Dosing Scope Date of Consult: 06/21/17 Consultation requested by: Dr. Valverde (cefepime) & Dr. Prater (vanco) Pharmacy is consulted to initiate IV Vancomycin/Cefepime dosing therapy, order appropriate labs and adjust drug dose/frequency. Subjective The patient is a 56 year old female admitted on Jun 21, 2017 at 02:41. Objective Height (Feet): 5 Height (Inches): 1.00 Weight (Kilograms): 133.300 Vital Signs (Past 12Hrs) Vital Signs Past 12 Hours Date Time Temp Pulse Resp B/P (MAP) Pulse Ox O2 Delivery O2 Flow Rate FiO2 06/21/17 08:21 37.4 68 20 144/78 (100) 92 Nasal Cannula 5.0 161/37 (78) 06/21/17 07:37 62 91 50 06/21/17 07:35 62 22 91 BiPAP/CPAP 50 06/21/17 06:22 68 98 50 06/21/17 04:21 38.4 78 18 118/62 89 Nasal Cannula 4.0 06/21/17 04:00 93 BiPAP 4.0 50 06/21/17 04:00 74 94 50 06/21/17 02:19 75 22 97/48 89 Nasal Cannula 4.0 06/21/17 01:13 76 06/21/17 00:18 76 20 126/70 91 Nasal Cannula 4.0 Lab Results (24Hrs) Laboratory Tests (24 Hours) Test 06/20/17 22:27 06/21/17 05:26 Lactic Acid Level 1.4 mmol/L (0.4-2.0) White Blood Count 13.45 K/uL (4.8-10.8) H Red Blood Count 4.39 M/uL (4.2-5.4) Hemoglobin 14.1 g/dL (12.0-16.0) Hematocrit 45.2 % (37-47) Mean Corpuscular Volume 103.0 fL (80-100) H Mean Corpuscular Hemoglobin 32.1 pg (25-34) Mean Corpuscular Hemoglobin Concent 31.2 g/dl (32-36) L Platelet Count 222 K/uL (130-400) Mean Platelet Volume 9.6 fL (7.4-10.4) Neutrophils (%) (Auto) 89.9 % Lymphocytes (%) (Auto) 3.6 % Monocytes (%) (Auto) 5.4 % Eosinophils (%) (Auto) 0.3 % Basophils (%) (Auto) 0.1 % Neutrophils # (Auto) 12.11 K/uL (1.4-6.5) H Lymphocytes # (Auto) 0.48 K/uL (1.2-3.4) L Monocytes # (Auto) 0.72 K/uL (0.11-0.59) H Eosinophils # (Auto) 0.04 K/uL (0-0.5) Basophils # (Auto) 0.01 K/uL (0-0.2) Micro Results Date/Time Source Procedure Growth Status 06/20/17 22:27 Blood Blood Culture Pending Received 06/20/17 22:16 Blood Blood Culture Pending Received 06/20/17 21:54 Urine,Catheterized Urine Culture Pending Received 06/20/17 21:30 Drainage - Surface Abdomen Gram Stain - Final Resulted 06/20/17 21:30 Drainage - Surface Abdomen Wound Culture Pending Resulted Risk Factors for Resistance * History of infection with a multidrug-resistant organism: MRSA (possibly [facility]) Assessment & Plan Assessment 56 yo F admitted with abdominal wall cellulitis/sepsis, hx of MRSA Plan Vancomycin IV * Loading dose: Vancomycin 2gm IV x 1 last night in ER (15mg/kg) * Maintenance dose: Vancomycin 1500mg IV q12h (11mg/kg previous admission dosing) * Goal trough level for cellulitis/sepsis: 15-20mcg/mL * Trough level ordered for: 06/23/17 1000 dose * A less than traditional dose and/or extended dosing interval has/have been selected due to likelihood of drug accumulation in obese patients (BMI ~56) Cefepime IV * Cefepime 2gm IV q12h * No dosage adjustment needed for CrCl>60mL/min Pharmacy will continue to follow and will adjust dose/frequency as necessary. Thank you.
[2017-06-21] MEDS: METHYLPREDNISOLONE IV 40 MG in SYRINGE 0 ML IV SCH ×2 (12:47→19:51)
[2017-06-21] MEDS: BOOST GLUCOSE CONTROL PO SCH (16:45)
[2017-06-21] MEDS ORDERED: DOXYCYCLINE IV 100 MG in DEXTROSE 5% 100ML 100 ML IV SCH (18:00)
[2017-06-21] MEDS: VANCOMYCIN INJ 1,500 MG in SODIUM CHLORIDE 0.9% 500ML 500 ML IV SCH (20:49)
[2017-06-21] MEDS ORDERED: BOOST GLUCOSE CONTROL PO SCH (21:00)
[2017-06-22] VITALS (12 sets, daily range): BP systolic 115–144; BP diastolic 63–77; PULSE 52–90; TEMP 36.7–36.8; O2SAT 90–96
[2017-06-22] MEDS: INSULIN ASPART 100 UNITS/ML 3 ML PEN SC SCH ×6 (00:07→21:02)
[2017-06-22] MEDS: IPRATROPIUM BROMIDE NEB SOLN 0.02% 2.5 ML VIAL INH SCH ×4 (02:31→19:27)
[2017-06-22] MEDS: LEVALBUTEROL 1.25MG/0.5ML NEB INH SCH ×4 (02:31→19:27)
[2017-06-22] MEDS: METHYLPREDNISOLONE IV 40 MG in SYRINGE 0 ML IV SCH ×2 (05:15→15:33)
[2017-06-22] MEDS: DOXYCYCLINE IV 100 MG in DEXTROSE 5% 100ML 100 ML IV SCH ×2 (05:15→15:32)
[2017-06-22] MEDS: CEFEPIME IV 2,000 MG in DEXTROSE 5% 100ML 100 ML IV SCH (06:21)
[2017-06-22] MEDS: LEVOTHYROXINE 200 MCG TAB PO SCH (06:21)
[2017-06-22 06:54] LABS: COMPLETE YES; HEMATOCRIT 43.9 % (37-47); IG% 0.3 %; LYMPH % 3.3 %; LYMPH ABS # 0.43 K/uL (1.2-3.4); MEAN CELL VOLUME 102.3 fL (80-100); MEAN CORPUSCULAR HEMOGLOBIN 31.9 pg (25-34); MEAN CORPUSCULAR HGB CONC 31.2 g/dl (32-36); MEAN PLATELET VOLUME 9.8 fL (7.4-10.4); MONO % 4.2 %; NEUT % 92.2 %; PLATELET COUNT 209 K/uL (130-400); RED BLOOD COUNT 4.29 M/uL (4.2-5.4); WHITE BLOOD COUNT 12.98 K/uL (4.8-10.8)
[2017-06-22 07:28] LABS: CREATININE 0.63 mg/dl (0.60-1.20)
[2017-06-22] MEDS: ASPIRIN 81 MG ECTAB PO SCH (08:24)
[2017-06-22] MEDS: ATORVASTATIN 40 MG TAB PO SCH (08:24)
[2017-06-22] MEDS: METOPROLOL TARTRATE 25 MG TAB PO SCH ×2 (08:24→20:58)
[2017-06-22] MEDS: GABAPENTIN 100 MG CAP PO SCH ×3 (08:24→20:58)
[2017-06-22] MEDS: CLOPIDOGREL BISULFATE 75 MG TAB PO SCH (08:24)
[2017-06-22] MEDS: ENOXAPARIN 40 MG/0.4 ML SYR SC SCH (08:25)
[2017-06-22] MEDS: PANTOprazole SOD 40 MG TAB PO SCH (08:25)
[2017-06-22] MEDS: NICOTINE 14 MG/24 HR TDSY TD SCH (08:25)
[2017-06-22] MEDS: INSULIN GLARGINE SOLOSTAR 100 UNITS/ML 3 ML PEN SC SCH ×2 (08:30→21:03)
[2017-06-22] MEDS: BOOST GLUCOSE CONTROL PO SCH ×2 (08:35→16:54)
[2017-06-22] MEDS: NYSTATIN POWDER 15GM BTL EXT SCH ×3 (08:35→20:58)
[2017-06-22] MEDS ORDERED: INSULIN GLARGINE SOLOSTAR 100 UNITS/ML 3 ML PEN SC SCH ×2 (09:00)
--- NOTE | 2017-06-22 09:51 | Progress Note ---
Medicine Progress Note Date & Time of Visit: Jun 22, 2017 at 09:44. Subjective patient seen resting in bed, reading the newspaper on 5L via nasal cannula state she feels improved compared to yesterday breathing is improving, less cough, still non productive denies any discomfort on the abdominal wall and wound no other symptoms Objective Last 8 Hrs Date Time Temp Pulse Resp B/P (MAP) Pulse Ox O2 Delivery O2 Flow Rate FiO2 06/22/17 08:00 36.7 56 20 144/77 (99) 92 Nasal Cannula 6.0 06/22/17 06:55 52 20 95 Nasal Cannula 6.0 06/22/17 05:08 90 92 50 06/22/17 04:00 36.8 52 19 115/63 (80) 90 BiPAP 06/22/17 04:00 BiPAP 50 06/22/17 02:32 55 22 95 BiPAP/CPAP 50 06/22/17 02:31 55 95 50 Physical Exam: General- oriented x 3, not in distress, speaks in sentences with no effort Eyes- anicteric Neck- supple, no JVD Lungs- occasional wheeze and rhonchi bilaterally, improved than yesterday Heart- regular rhythm; no murmur, normal rate Abdomen- (+) significant erythema, mild warmth on the abdominal wall/pannus and inguinal region (+) incision on the lower abdomen- slight dehiscence, less discharge normal bowel sounds, soft Extremities- no pretibial edema, no calf tenderness Neuro- alert, oriented x 3; no gross focal deficit Skin- warm & dry Laboratory Results: Last 24 Hours Test 06/21/17 11:25 06/21/17 16:15 06/21/17 20:03 06/22/17 00:01 Bedside Glucose 238 mg/dl 202 mg/dl 240 mg/dl 223 mg/dl Test 06/22/17 04:00 06/22/17 06:35 06/22/17 06:42 Bedside Glucose 181 mg/dl 184 mg/dl White Blood Count 12.98 K/uL Red Blood Count 4.29 M/uL Hemoglobin 13.7 g/dL Hematocrit 43.9 % Mean Corpuscular Volume 102.3 fL Mean Corpuscular Hemoglobin 31.9 pg Mean Corpuscular Hemoglobin Concent 31.2 g/dl Platelet Count 209 K/uL Mean Platelet Volume 9.8 fL Neutrophils (%) (Auto) 92.2 % Lymphocytes (%) (Auto) 3.3 % Monocytes (%) (Auto) 4.2 % Eosinophils (%) (Auto) 0.0 % Basophils (%) (Auto) 0.0 % Neutrophils # (Auto) 11.97 K/uL Lymphocytes # (Auto) 0.43 K/uL Monocytes # (Auto) 0.54 K/uL Eosinophils # (Auto) 0.00 K/uL Basophils # (Auto) 0.00 K/uL RDW Standard Deviation 56.5 fL RDW Coefficient of Variation 15.0 % Immature Granulocyte % (Auto) 0.3 % Immature Granulocyte # (Auto) 0.04 K/uL Creatinine 0.63 mg/dl Est Creatinine Clear Calc Drug Dose 127.9 ml/min Estimated GFR () 115.4 Estimated GFR (Non- 99.6 Assessment & Plan 56 year old female with history of CAD, DM, HTN, COPD, chronic abdominal wound , presenting s/p fall in the bathroom. ACUTE ON CHRONIC HYPOXIC, HYPERCAPNEIC RESPIRATORY FAILURE SECONDARY TO COPD EXACERBATION, POSSIBLE BIBASILAR PNEUMONIA -- off bipap ABG slightly improved repeat CXR: possible lower lobe b/l pneumonia -- improving, now on 5L via nasal cannula fever improving WBC about the same -- continue Vanc + Cefepime + Doxy Day 3 Nebs Prednisone 40mg po changed to Solumedrol 40mg TID -- appreciate Pulm input SEPSIS SECONDARY TO ABDOMINAL WOUND INFECTION, CELLULITIS -- lactic acid normal -- Wound culture: (+) proteus, resistant to Imipenem -- abdominal wall with increased erythema but clinically improving overall monitor -- continue Vancomycin, Cefepime, Doxy Day 3 ID consulted RIGHT PLEURAL EFFUSION -- check Echo to r/o CHF DM 2 -- on Solumedrol Pharmacy consulted for Glycemic Mgt HTN -- continue Metoprolol CAD s/p STENT -- continue Aspirin, Plavix, Statin, Metoprolol DVT PROPHYLAXIS -- Lovenox CODE STATUS -- DNR DISPOSITION -- pending -- may need SNF Current Inpatient Medications: Current Inpatient Medications Medications (Trade) Dose Ordered Sig/Abdi Route Start Time Stop Time Status Last Admin Dose Admin Ioversol (Optiray 320) 125 ml UD PRN IV 06/20/17 21:45 06/24/17 21:44 Enoxaparin Sodium (Lovenox Inj) 40 mg Q24H SC 06/21/17 08:00 07/21/17 07:59 06/22/17 08:25 40 MG Acetaminophen (Tylenol Tab) 325 mg Q6H PRN PO 06/21/17 03:30 07/21/17 03:29 Insulin Aspart (novoLOG ASPART) SLIDING SCALE If C... ACHS SC 06/21/17 07:00 07/21/17 06:59 06/22/17 08:30 18 UNITS Glucose (Glucose 40% Gel) 15-30 GRAMS 15 GRAMS... UD PRN PO 06/21/17 03:30 07/21/17 03:29 Glucose (Glucose Chew Tab) 4-8 Tablets 4 Tabl... UD PRN PO 06/21/17 03:30 07/21/17 03:29 Dextrose (Dextrose 50% 50ML Syringe) 25-50ML OF 50% DW IV FOR... UD PRN IV 06/21/17 03:30 07/21/17 03:29 Glucagon (Glucagon Inj) 1 mg UD PRN SQ 06/21/17 03:30 07/21/17 03:29 Nicotine (Nicoderm Cq 14MG Patch) 1 patch QAM TD 06/21/17 09:00 07/21/17 08:59 06/22/17 08:25 1 PATCH Miscellaneous (Remove Nicoderm Patch) 1 ea HS N/A 06/21/17 21:00 07/21/17 20:59 Aspirin (Ecotrin Tab) 81 mg DAILY PO 06/21/17 09:00 07/21/17 08:59 06/22/17 08:24 81 MG Atorvastatin Calcium (Lipitor Tab) 40 mg DAILY PO 06/21/17 09:00 07/21/17 08:59 06/22/17 08:24 40 MG Clopidogrel Bisulfate (plAVix TAB) 75 mg DAILY PO 06/21/17 09:00 07/21/17 08:59 06/22/17 08:24 75 MG Gabapentin (Neurontin Cap) 100 mg TID PO 06/21/17 09:00 07/21/17 08:59 06/22/17 08:24 100 MG Levothyroxine Sodium (Synthroid Tab) 200 mcg DAILYBB PO 06/21/17 06:00 07/21/17 05:59 06/22/17 06:21 200 MCG Metoprolol Tartrate (Lopressor Tab) 12.5 mg BID PO 06/21/17 09:00 07/21/17 08:59 06/22/17 08:24 12.5 MG Pantoprazole Sodium (Protonix Tab) 40 mg DAILY PO 06/21/17 09:00 07/21/17 08:59 06/22/17 08:25 40 MG Albuterol/ Ipratropium (Duoneb) 3 ml Q2H PRN INH 06/21/17 03:30 07/21/17 03:29 Ondansetron HCl (Zofran Inj) 4 mg Q6H PRN IV 06/21/17 03:30 07/21/17 03:29 Tramadol HCl (Ultram Tab) not relieved by tyle... Q6H PRN PO 06/21/17 03:30 07/21/17 03:29 Hydromorphone HCl (Dilaudid Inj) 0.5 mg Q6H PRN IV 06/21/17 03:30 07/05/17 03:29 Ipratropium [place] (Atrovent 0.02% 0.5MG/2.5ML Neb) 0.5 mg Q6R INH 06/21/17 09:00 07/21/17 08:59 06/22/17 06:55 0.5 MG Levalbuterol (Xopenex 1.25MG/ 0.5ML Neb) 1.25 mg Q6R INH 06/21/17 09:00 07/21/17 08:59 06/22/17 06:55 1.25 MG Cefepime HCl 2000 mg/Dextrose 112.5 ml @ 200 mls/hr Q12@0600,1800 IV 06/21/17 06:45 06/28/17 06:44 06/22/17 06:21 200 MLS/HR Cefepime HCl (Consult) 1 ea UD PRN N/A 06/21/17 09:00 07/21/17 08:59 Nystatin (Mycostatin Powder) 1 appln TID EXT 06/21/17 09:00 07/21/17 08:59 06/22/17 08:35 1 APPLN Vancomycin HCl (Consult) 1 ea UD PRN N/A 06/21/17 09:00 07/21/17 08:59 Methylprednisolone Sodium Succinate 40 mg/Syringe 0.64 ml @ 1.5 mls/min Q8H IV 06/21/17 12:00 07/21/17 11:59 06/22/17 05:15 1.5 MLS/MIN Miscellaneous Information (Consult Glycemic Management Pharmacy) [address] [facility] N/A 06/21/17 11:03 07/21/17 11:02 Vancomycin HCl 1500 mg/Sodium Chloride 530 ml @ 200 mls/hr Q12H IV 06/21/17 22:00 07/01/17 21:59 06/21/17 20:49 200 MLS/HR Insulin Aspart (novoLOG ASPART) SLIDING SCALE If C... TODAY@0000,0400 VT 06/22/17 00:00 07/22/17 00:00 06/22/17 05:03 5 UNITS Insulin Glargine (Lantus Solostar Pen) 50 units BID SC 06/22/17 09:00 07/22/17 08:59 06/22/17 08:30 50 UNITS Enteral Nutritional Formula (Boost Glucose Control) 1 can BIDM PO 06/21/17 16:45 07/21/17 16:44 06/22/17 08:35 1 CAN Doxycycline Hyclate 100 mg/ Dextrose 110 ml @ 50 mls/hr Q12@0400,1600 IV 06/22/17 04:00 06/28/17 03:59 06/22/17 05:15 50 MLS/HR
[2017-06-22] MEDS: VANCOMYCIN INJ 1,500 MG in SODIUM CHLORIDE 0.9% 500ML 500 ML IV SCH ×2 (10:18→17:04)
--- NOTE | 2017-06-22 10:21 | ECHOCARDIOGRAM REPORT ---
*NOTICE TO RECEIVING CONSTITUTION PARTY AGENCY This information is strictly Confidential and protected under [place] law. [place] law prohibits you from making any further disclosure of this information unless further disclosure is expressly permitted by the written consent of the person to whom it pertains or is authorized by law. A general authorization for the release of medical or other information is not sufficient for this purpose. Hospital accepts no responsibility if the information is made available to any other person, INCLUDING THE PATIENT. Interpretation Summary * Name: JENNIFER LEVIN Study Date: 06/22/2017 06:51 AM BP: 115/63 mmHg * Patient Location: .2E\S\E212\S\1 HR: 90 * : 1960 (M/d/yyy) Gender: Female Height: 61 in * Age: 56 yrs Ethnicity: [place] Weight: 293 lb * Ordering Physician: Yoav Prater * Referring Physician: Self, Referred * Performed By: Carmella Fink RDCS * * Reason For Study: R/O CHF * BSA: 2.2 m2 * -- Conclusions -- * No significant change compared to previous study of 06/20/15. * Normal LV chamber size with mild concentric LVH. * Normal LV systolic function, EF 60-65%. * No segmental left ventricular wall motion abnormalities are noted. * Grade II diastolic dysfunction. * Poorly visualized valvular structures, no significant stenosis or regurgitation by Doppler. Procedure Details * A complete two-dimensional transthoracic echocardiogram was performed (2D, M-mode, Doppler and color flow Doppler). * A contrast injection of Definity was performed to improve assessment of LV function. * Contrast was injected into an intravenous site in the right arm. * One vial of Definity ultrasound contrast was diluted in normal saline to a total volume of 10 ml. A total of '2' ml of solution was administered during imaging. * Lot # [id number] of Definity utilized for procedure. * Expiration date JUL 15. * The attending nurse who injected the contrast agent was Lindy Paris RN. Left Ventricle * The left ventricle is normal in size. * There is mild concentric left ventricular hypertrophy. * Ejection Fraction = 60-65%. * Left ventricular systolic function is normal. * No segmental left ventricular wall motion abnormalities are noted. * The left ventricular wall motion is normal. Right Ventricle * The right ventricle is not well visualized. Atria * The left atrial size is normal. * Right atrium not well visualized. Mitral Valve * The mitral valve is not well visualized. * There is no mitral valve stenosis. * There is no mitral regurgitation noted. Tricuspid Valve * The tricuspid valve is not well visualized. * There is no tricuspid stenosis. * No tricuspid regurgitation. Aortic Valve * The aortic valve is not well visualized. * No hemodynamically significant valvular aortic stenosis. * There is no significant aortic regurgitation. Pulmonic Valve * The pulmonary valve is not well seen, but the Doppler examination is normal without significant regurgitation or stenosis. Great Vessels * The aortic root and proximal ascending aorta are normal sized. Pericardium/Pleural * There is no pericardial effusion. Left Ventricular Diastolic Function * Diastolic dysfunction, Grade II (pseudonormalization pattern). MMode 2D Measurements and Calculations IVSd 1.0 cm LVIDd 5.5 cm LVIDs 3.9 cm LVPWd 0.95 cm IVS/LVPW 1.1 FS 30.0 % EDV(Teich) 149.4 ml ESV(Teich) 64.8 ml EF(Teich) 56.7 % EDV(cubed) 169.3 ml ESV(cubed) 58.0 ml EF(cubed) 65.7 % LV mass(C)d 208.0 grams LV mass(C)dI 93.6 grams/m\S\2 SV(Teich) 84.6 ml SI(Teich) 38.1 ml/m\S\2 SV(cubed) 111.3 ml SI(cubed) 50.1 ml/m\S\2 Ao root diam 3.1 cm Ao root area 7.5 cm\S\2 ACS 2.0 cm LA dimension 3.3 cm asc Aorta Diam 3.1 cm LA/Ao 1.1 LVAd ap4 34.3 cm\S\2 LVLd ap4 7.3 cm EDV(MOD-sp4) 132.0 ml EDV(sp4-el) 137.2 ml LVAs ap4 19.6 cm\S\2 LVLs ap4 6.0 cm ESV(MOD-sp4) 51.4 ml ESV(sp4-el) 54.5 ml EF(MOD-sp4) 61.1 % EF(sp4-el) 60.3 % LVAd ap2 23.6 cm\S\2 LVLd ap2 6.9 cm EDV(MOD-sp2) 64.2 ml EDV(sp2-el) 68.3 ml LVAs ap2 13.7 cm\S\2 LVLs ap2 5.9 cm ESV(MOD-sp2) 26.3 ml ESV(sp2-el) 27.1 ml EF(MOD-sp2) 59.0 % EF(sp2-el) 60.4 % LVLd %diff -5.09 % EDV(MOD-bp) 94.2 ml LVLs %diff -2.53 % ESV(MOD-bp) 36.9 ml EF(MOD-bp) 60.8 % SV(MOD-sp4) 80.6 ml SI(MOD-sp4) 36.3 ml/m\S\2 SV(MOD-sp2) 37.9 ml SI(MOD-sp2) 17.1 ml/m\S\2 SV(MOD-bp) 57.3 ml SI(MOD-bp) 25.8 ml/m\S\2 SV(sp4-el) 82.7 ml SI(sp4-el) 37.2 ml/m\S\2 SV(sp2-el) 41.2 ml SI(sp2-el) 18.6 ml/m\S\2 Doppler Measurements and Calculations MV E max imani 152.1 cm/sec MV A max imani 99.5 cm/sec MV E/A 1.5 MV dec time 0.19 sec Ao V2 max 161.5 cm/sec Ao max PG 10.4 mmHg Ao max PG (full) 6.2 mmHg LV V1 max PG 4.3 mmHg LV V1 max 103.4 cm/sec
--- NOTE | 2017-06-22 10:56 | Pharmacy Progress Note ---
Glycemic Control Progress Note Date of Service Jun 22, 2017. Scope Glycemic Pharmacist consulted for glycemic control to write orders per [facility] inpatient glycemic control protocol. Objective Accuchecks BSG (last 24hrs): Test 06/21/17 11:25 06/21/17 16:15 06/21/17 20:03 06/22/17 00:01 Bedside Glucose 238 mg/dl (70-90) 202 mg/dl (70-90) 240 mg/dl (70-90) 223 mg/dl (70-90) Test 06/22/17 04:00 06/22/17 06:42 Bedside Glucose 181 mg/dl (70-90) 184 mg/dl (70-90) HbA1c: Test 06/20/17 21:00 Hemoglobin A1c 9.0 % (4.5-5.6) H Recent Pertinent Medications The patient is currently receiving: * Basal insulin: Yesterday: Lantus 30 + 40 + 30 units (100 units total); currently ordered 50 units BID starting this AM * Correctional Insulin: Novolog Correction per scale ACHS Goal Range: Low 110 mg/dL - High 140 mg/dL Correction Factor: 10 mg/dL/unit * Prandial insulin: Per carb ratio of 1 unit per 4 grams CHO consumed Risk Factors for Insulin Resistance: * Steroids: Solu-Medrol 40mg IV Q 8 hours * Infection: abd wound cellulitis / acute bronchitis; ordered vancomycin + cefepime + doxycycline * Diet: ordered T2DM diet; consumed breakfast and lunch yesterday Outpatient Anti-Diabetic Meds Outpatient Anti-diabetic Regimen: * Lantus 55 units SQ Q AM * Novolog 24 units SQ w/ meals * A1c = 9 % 06/20/17 Assessment & Plan ASSESSMENT: 06/21/17 * Type 2 diabetic known to glycemic control service from prior admissions * She is admitted with acute on chronic resp failure secondary to COPD exac / acute bronchitis as well as abdominal wound cellulitis * BSGs are well controlled at this time, however she did begin high dose IV steroids this AM. In the past this has led to greatly increased insulin resistance. She has required > 200 units of insulin per day when receiving IV steroids in the past with less than adequate response. * Will begin an aggressive insulin regimen based upon an anticipated total daily insulin requirement of ~200 units per day while on the current steroid dose and tolerating a diet. * Will follow BSG pattern closely today as doses may need to be quickly titrated if control is deteriorating. 06/22/17 * BSGs have ranged 181-240 over the last 24 hrs * She has received 151 units of SQ insulin * Steroids have not been tapered today * Fasting BSG 181-184 this AM with 100 units of Lantus on board + 14 units of correctional insulin given overnight; she may require more - will consider a dose increase tomorrow if steroids not tapered * Post-prandial BSGs did not climb yesterday w/ current CF and CR; however they also did not return to goal range. Will increase correctional and prandial doses slightly PLAN FOR INPATIENT GLYCEMIC CONTROL: * Continue Lantus 50 units SQ BID * Changing correction factor to 9 mg/dl/unit * Changing carb ratio to 1 unit per 3 grams CHO consumed * Continue goal range of Low 110 mg/dL - High 140 mg/dL * Continue additional BSG checks at 0000 and 0400 and cover with the above Novolog parameters * Reassess insulin doses with each step down in steroid dose. * Please note that the plan above was derived based on current level of insulin resistance and hospital stress. These recommendations are appropriate for inpatient admission only. Plan of care upon discharge will need to be reassessed to avoid potential outpatient hypo/hyperglycemia. Thank you.
--- NOTE | 2017-06-22 14:09 | History & Physical Bridge Note ---
H&P Re-Evaluation Bridge Note: I have examined the patient, reviewed the History & Physical and in the interval since the performance of the History & Physical I have noted the following changes of clinical significance: No changes noted
--- NOTE | 2017-06-22 14:09 | Procedure Note ---
Pre-Mod Sedation Assessment General Date of Moderate Sedation: Jun 22, 2017. Vital Signs: Vital Signs Past 12 Hours Date Time Temp Pulse Resp B/P (MAP) Pulse Ox O2 Delivery O2 Flow Rate FiO2 06/22/17 12:20 Nasal Cannula 6.0 06/22/17 12:00 36.7 62 18 120/65 (83) 96 Nasal Cannula 6.0 06/22/17 08:20 Nasal Cannula 6.0 06/22/17 08:00 36.7 56 20 144/77 (99) 92 Nasal Cannula 6.0 06/22/17 06:55 52 20 95 Nasal Cannula 6.0 06/22/17 05:08 90 92 50 06/22/17 04:00 36.8 52 19 115/63 (80) 90 BiPAP 06/22/17 04:00 BiPAP 50 06/22/17 02:32 55 22 95 BiPAP/CPAP 50 06/22/17 02:31 55 95 50 Review Cardiovascular: regular rate, rhythm, no edema, no gallop, no JVD Abdomen: normal bowel sounds, non tender, soft, no organomegaly, no pulsatile mass, normal rectal exam Lungs: chest non-tender, + pertinent finding (decreased BS LLL/rhonchi) Pre-Sedation Airway Assessment Oral Cavity: Loose Teeth Smoking Status: Current Every Day Smoker ASA Classification: Class III Notes The planned sedation has been discussed with the patient and consent obtained. I have identified the patient, determined the appropriateness of sedation and have assessed the patient immediately prior to the procedure. All medicine(s) and interventions are by my order.
--- NOTE | 2017-06-22 14:10 | Pharmacy Progress Note ---
Pharmacy Abx Dose Short Note Date of Service Jun 22, 2017. Assessment & Plan Assessment * 56 year old female receiving IV VANCOMYCIN, CEFEPIME and DOXYCYCLINE for treatment of abdominal wall / pannus cellulitis and COPD w/ possible PNX * Today is Day # 2 of antimicrobial therapy * Patient is morbidly obese and estimates of renal fxn difficult, but I estimate CrCl > 100-120cc/min. Renal fxn appears stable thus far. Good U.O. Maintaining good BP. * Patient's breathing reported to be better today, less cough, but still requiring 6L NC O2 and sat well * Abdominal cellulitis reported to remain red and warm; Polymicrobial infxn per cx of wound: proteus vulgaris sensitivities back (sensitive to multiple abx including the cefepime), still awaiting sensitivities on other organisms to determine if deescalation possible. 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 * P'kinetic estimates: Vd 0.6L/kg (due to morbid obesity); half-life ~6-7 hrs; eCrCl ~125cc/min * Change vancomycin to 1500mg (~11mg/kg) IV Q 8 hours * Goal trough level for pulm infxn with SSTI : 15 to 20 mcg/mL * Trough level ordered for: 06/23/17 with 4th dose of this regimen Cefepime * No change is dose required; continue 2gm IV Q 12 hours Pharmacy will continue to follow and will adjust dose/frequency as necessary. Thank you.
--- NOTE | 2017-06-22 16:32 | Infectious Disease Progress Nt ---
Progress Note Date of Service Jun 22, 2017. Subjective Pt evaluation today including: conversation w/ patient, physical exam, chart review, lab review, review of studies, review of inpatient medication list Patient is feeling much improved today. She feels that the abdominal wall tenderness is improving. Her white blood cell count today was 12.98. Her creatinine was 0.63. She continues to tolerate antibiotic therapy well. Her abdominal culture is growing Proteus vulgaris which is resistant to Primaxin only. It is also growing Staph aureus and a group G beta strep Pending sensitivity results. Blood cultures are showing no growth date, and urine culture is showing contamination. The patient has been afebrile. Wound Care did evaluate the patient as well. All Other Systems: Reviewed and Negative Medications Current Inpatient Medications Medications (Trade) Dose Ordered Sig/Abdi Route Start Time Stop Time Status Last Admin Dose Admin Ioversol (Optiray 320) 125 ml UD PRN IV 06/20/17 21:45 06/24/17 21:44 Enoxaparin Sodium (Lovenox Inj) 40 mg Q24H SC 06/21/17 08:00 07/21/17 07:59 06/22/17 08:25 40 MG Acetaminophen (Tylenol Tab) 325 mg Q6H PRN PO 06/21/17 03:30 07/21/17 03:29 Insulin Aspart (novoLOG ASPART) SLIDING SCALE If C... ACHS SC 06/21/17 07:00 07/21/17 06:59 06/22/17 12:17 35 UNITS Glucose (Glucose 40% Gel) 15-30 GRAMS 15 GRAMS... UD PRN PO 06/21/17 03:30 07/21/17 03:29 Glucose (Glucose Chew Tab) 4-8 Tablets 4 Tabl... UD PRN PO 06/21/17 03:30 07/21/17 03:29 Dextrose (Dextrose 50% 50ML Syringe) 25-50ML OF 50% DW IV FOR... UD PRN IV 06/21/17 03:30 07/21/17 03:29 Glucagon (Glucagon Inj) 1 mg UD PRN SQ 06/21/17 03:30 07/21/17 03:29 Nicotine (Nicoderm Cq 14MG Patch) 1 patch QAM TD 06/21/17 09:00 07/21/17 08:59 06/22/17 08:25 1 PATCH Miscellaneous (Remove Nicoderm Patch) 1 ea HS N/A 06/21/17 21:00 07/21/17 20:59 Aspirin (Ecotrin Tab) 81 mg DAILY PO 06/21/17 09:00 07/21/17 08:59 06/22/17 08:24 81 MG Atorvastatin Calcium (Lipitor Tab) 40 mg DAILY PO 06/21/17 09:00 07/21/17 08:59 06/22/17 08:24 40 MG Clopidogrel Bisulfate (plAVix TAB) 75 mg DAILY PO 06/21/17 09:00 07/21/17 08:59 06/22/17 08:24 75 MG Gabapentin (Neurontin Cap) 100 mg TID PO 06/21/17 09:00 07/21/17 08:59 06/22/17 14:29 100 MG Levothyroxine Sodium (Synthroid Tab) 200 mcg DAILYBB PO 06/21/17 06:00 07/21/17 05:59 06/22/17 06:21 200 MCG Metoprolol Tartrate (Lopressor Tab) 12.5 mg BID PO 06/21/17 09:00 07/21/17 08:59 06/22/17 08:24 12.5 MG Pantoprazole Sodium (Protonix Tab) 40 mg DAILY PO 06/21/17 09:00 07/21/17 08:59 06/22/17 08:25 40 MG Albuterol/ Ipratropium (Duoneb) 3 ml Q2H PRN INH 06/21/17 03:30 07/21/17 03:29 Ondansetron HCl (Zofran Inj) 4 mg Q6H PRN IV 06/21/17 03:30 07/21/17 03:29 Tramadol HCl (Ultram Tab) not relieved by tyle... Q6H PRN PO 06/21/17 03:30 07/21/17 03:29 Ipratropium [place] (Atrovent 0.02% 0.5MG/2.5ML Neb) 0.5 mg Q6R INH 06/21/17 09:00 07/21/17 08:59 06/22/17 14:17 0.5 MG Levalbuterol (Xopenex 1.25MG/ 0.5ML Neb) 1.25 mg Q6R INH 06/21/17 09:00 07/21/17 08:59 06/22/17 14:17 1.25 MG Cefepime HCl 2000 mg/Dextrose 112.5 ml @ 200 mls/hr Q12@0600,1800 IV 06/21/17 06:45 06/28/17 06:44 06/22/17 06:21 200 MLS/HR Cefepime HCl (Consult) 1 ea UD PRN N/A 06/21/17 09:00 07/21/17 08:59 Nystatin (Mycostatin Powder) 1 appln TID EXT 06/21/17 09:00 07/21/17 08:59 06/22/17 14:28 1 APPLN Vancomycin HCl (Consult) 1 UD PRN N/A 06/21/17 09:00 07/21/17 08:59 Miscellaneous Information (Consult Glycemic Management Pharmacy) 1 UD N/A 06/21/17 11:03 07/21/17 11:02 Insulin Aspart (novoLOG ASPART) SLIDING SCALE If C... TODAY@0000,0400 [place] 06/22/17 00:00 07/22/17 00:00 06/22/17 05:03 5 UNITS Insulin Glargine (Lantus Solostar Pen) 50 units BID SC 06/22/17 09:00 07/22/17 08:59 06/22/17 08:30 50 UNITS Enteral Nutritional Formula (Boost Glucose Control) 1 can BIDM PO 06/21/17 16:45 07/21/17 16:44 06/22/17 08:35 1 CAN Doxycycline Hyclate 100 mg/ Dextrose 110 ml @ 50 mls/hr Q12@0400,1600 IV 06/22/17 04:00 06/28/17 03:59 06/22/17 15:32 50 MLS/HR Methylprednisolone Sodium Succinate 40 mg/Syringe 0.64 ml @ 1.5 mls/min Q12H IV 06/22/17 16:00 07/21/17 11:59 06/22/17 15:33 1.5 MLS/MIN Vancomycin HCl 1500 mg/Sodium Chloride 530 ml @ 200 mls/hr Q8H IV 06/22/17 18:00 07/01/17 21:59 Objective Vital Signs Date Time Temp Pulse Resp B/P (MAP) Pulse Ox O2 Delivery O2 Flow Rate FiO2 06/22/17 14:30 62 20 95 Nasal Cannula 6.0 06/22/17 12:20 Nasal Cannula 6.0 06/22/17 12:00 36.7 62 18 120/65 (83) 96 Nasal Cannula 6.0 06/22/17 08:20 Nasal Cannula 6.0 06/22/17 08:00 36.7 56 20 144/77 (99) 92 Nasal Cannula 6.0 06/22/17 06:55 52 20 95 Nasal Cannula 6.0 06/22/17 05:08 90 92 50 06/22/17 04:00 36.8 52 19 115/63 (80) 90 BiPAP 06/22/17 04:00 BiPAP 50 06/22/17 02:32 55 22 95 BiPAP/CPAP 50 06/22/17 02:31 55 95 50 06/22/17 00:00 36.8 53 22 130/70 (90) 92 06/21/17 23:59 BiPAP 50 06/21/17 23:14 50 06/21/17 22:05 59 92 40 06/21/17 20:00 93 Nasal Cannula 6.0 06/21/17 19:46 36.8 61 21 117/59 (78) 90 Nasal Cannula 06/21/17 18:55 60 22 90 Nasal Cannula 6.0 Physical Exam General Appearance: no apparent distress, + obese Eyes: normal inspection, sclerae normal ENT: hearing grossly normal Neck: supple, trachea midline Respiratory/Chest: chest non-tender, no respiratory distress, no accessory muscle use, + wheezing (throughout right side-expiratory, coarse sounds otherwise are mild) Cardiovascular: regular rate, rhythm Abdomen: normal bowel sounds, soft, + pertinent finding (Very mild tenderness of the lower abdomen. Improved from yesterday.) Neurologic/Psychiatric: alert, normal mood/affect Skin: warm/dry, no rash, + pertinent finding (Mild erythema of the lower abdominal wall. Improved from yesterday. Note that wound was dressed by wound care. Clean aqua keith in place.) Laboratory Results RUN DATE: 06/22/17 [facility] LAB PAGE 1 RUN TIME: 1028 Specimen Inquiry PATIENT: JENNIFER LEVIN LOC: [facility] U # : [id number] AGE/SX: 56/F ROOM: [facility] REG : 06/21/[address]: Yoav Prater MD : [id number] BED: 1 DIS : STATUS: ADM IN TLOC: SPEC #: [id number] LUIS: 06/20/17 STATUS: RES REQ #: [id number] RECD: 06/20/[address]: Flores Novak DO SOURCE: DRAIN-SURF ENTR: 06/20/[address] [facility] [address]: Ren Marroquin M.D. SPDESC: ABD ORDERED: SURF WND CU/ASHER COMMENTS: Has Specimen Been Obtained/Collected? Y Procedure Result Verified Site GRAM STAIN Final 06/21/17 RESULT RARE WBCs SEEN FEW GRAM POSITIVE COCCI SURFACE WOUND CULTURE Preliminary 06/22/17 Organism 1 PROTEUS VULGARIS QUANITY MODERATE SENS SENSITIVITY TO FOLLOW Organism 2 STAPHYLOCOCCUS AUREUS QUANITY MODERATE SENS SENSITIVITY TO FOLLOW Organism 3 GROUP G BETA STREP QUANITY MODERATE SENS SENSITIVITY TO FOLLOW Organism 4 STAPH SPECIES QUANITY MODERATE SENS SENSITIVITIES DEPENDENT ON FURTHER IDENTIFICATION 1. PROTEUS VULGARIS Target Route Dose RX AB Cost M.I.C. IQ ------ ----- ------ -- ------ -------- - ------ TRIMET/SULFA S <=2/38 AMPICILLIN/SUL S <=8/4 CEFOTAXIME S <=2 CEFTRIAXONE S <=1 CEFEPIME S <=4 IMIPENEM R 4 GENTAMICIN S <=4 TOBRAMYCIN S <=4 AMIKACIN S <=16 CIPROFLOXACIN S <=1 LEVOFLOXACIN S <=2 ERTAPENEM S <=1 PIP/TAZO S <=16 S = SENSITIVE I = INTERMEDIATE R = RESISTANT Item Value Date Time Blood Culture - Preliminary Resulted 06/20/17 2227 Blood NO GROWTH TO DATE. Blood Culture - Preliminary Resulted 06/20/17 2216 Blood NO GROWTH TO DATE. Urine Culture - Final Complete 06/20/17 2154 Urine,Catheterized MORE THAN THREE TYPES OF ORGANISMS ND... Gram Stain - Final Resulted 06/20/172129 Drainage - Surface Abdomen Last 24 Hours Test 06/21/17 20:03 06/22/17 00:01 06/22/17 04:00 06/22/17 06:35 Bedside Glucose 240 mg/dl 223 mg/dl 181 mg/dl White Blood Count 12.98 K/uL Red Blood Count 4.29 M/uL Hemoglobin 13.7 g/dL Hematocrit 43.9 % Mean Corpuscular Volume 102.3 fL Mean Corpuscular Hemoglobin 31.9 pg Mean Corpuscular Hemoglobin Concent 31.2 g/dl Platelet Count 209 K/uL Mean Platelet Volume 9.8 fL Neutrophils (%) (Auto) 92.2 % Lymphocytes (%) (Auto) 3.3 % Monocytes (%) (Auto) 4.2 % Eosinophils (%) (Auto) 0.0 % Basophils (%) (Auto) 0.0 % Neutrophils # (Auto) 11.97 K/uL Lymphocytes # (Auto) 0.43 K/uL Monocytes # (Auto) 0.54 K/uL Eosinophils # (Auto) 0.00 K/uL Basophils # (Auto) 0.00 K/uL RDW Standard Deviation 56.5 fL RDW Coefficient of Variation 15.0 % Immature Granulocyte % (Auto) 0.3 % Immature Granulocyte # (Auto) 0.04 K/uL Creatinine 0.63 mg/dl Est Creatinine Clear Calc Drug Dose 127.9 ml/min Estimated GFR () 115.4 Estimated GFR (Non- 99.6 Test 06/22/17 06:42 06/22/17 11:37 06/22/17 16:17 Bedside Glucose 184 mg/dl 266 mg/dl 184 mg/dl Assessment and Plan Patient with right lower abdominal wound and cellulitis. She also has probable pneumonitis which worsened on most recent X-Ray. Patient has polymicrobial infection her abdominal wound with Proteus, Staph aureus, and strep pending sensitivities. She is currently on cefepime, but will transition to IV ceftriaxone. Continue vancomycin pending sensitivities of Staph aureus. Will hopefully transition this patient to p.o. antibiotics for discharge if she continues to improve. We will follow. PROVIDER ADDENDUM: Patient reviewed with AKASH.agree with above assessment.
[2017-06-22] MEDS: CEFTRIAXONE SOD INJ 2,000 MG in DEXTROSE 5% 50ML 50 ML IV SCH (16:52)
--- NOTE | 2017-06-22 18:54 | Pulmonology Progress Note ---
Pulmonary Progress Note Date of Service Jun 22, 2017. Attending Dr. Naik Subjective The patient is doing well today she denies any acute change in overall pulmonary status. She chronically has dyspnea on exertion but she also has difficulty with ambulation secondary to severe bilateral lower extremity pain Objective 56-year-old female admitted after fall with skin breakdown and chronic hypoxia: VS: I/Os: +1.3L SaO2: 90-96% RR: 18-22 FiO2: 6L Skin: stage 2 decubitus Respiratory: Decreased breath sounds decreased at the bases otherwise clear Cardiac: S1-S2 regular rate and rhythm Extremities: 1+ pitting edema in the dependent regions WBC: 13K Cr: 0.63 ABG (06/21/2017) 7.30/67/69/32 (4L) Aa-20mmHg Cardiac Echo 06/22/17 LV: EF=60-65%, mild concentric ventricular hypertrophy RV: Poor visualization Atria: Left atrium within normal limits, right Atrium poorly visualized Valves: Poor visualization, no signs of significant pathology Diastolic dysfunction grade 2 with pseudonormalization pattern noted Medications #1 vancomycin #2 ceftriaxone #3 Solu-Medrol 40 mg every 12 hours #4 Plavix #5 Xopenex/Atrovent nebulizer #6 Lovenox 40 mg subcutaneous daily #7 levothyroxin #8 Ultram Assessment & Plan 56-year-old female with chronic hypoxemia: #1 Hypoxemia: The patient has hypercapnic type hypoxic respiratory insufficiency. Her AA gradient is only 20 mmHg suggesting that the patient has chronic hypoventilatory syndrome similar to obesity hypoventilation. I agree with Marissa Olivier's evaluation with Continuation of BiPAP an outpatient PSG. #2 Pleural Effusion: On the chest x-ray the patient does appear to have a pleural effusion but if you evaluate the CT of the abdomen there is only small bilateral posterior atelectasis versus pleural scarring or possibly very small pleural effusions. The image on the chest x-ray is associated with pericardial fat pad and not a large pleural effusion. Data Medications: Current Inpatient Medications Medications (Trade) Dose Ordered Sig/Abdi Route Start Time Stop Time Status Last Admin Dose Admin Ioversol (Optiray 320) 125 ml UD PRN IV 06/20/17 21:45 06/24/17 21:44 Enoxaparin Sodium (Lovenox Inj) 40 mg Q24H SC 06/21/17 08:00 8/24/17 07:59 06/22/17 08:25 40 MG Acetaminophen (Tylenol Tab) 325 mg Q6H PRN PO 06/21/17 03:30 07/21/17 03:29 Insulin Aspart (novoLOG ASPART) SLIDING SCALE If C... ACHS SC 06/21/17 07:00 07/21/17 06:59 06/22/17 17:01 27 UNITS Glucose (Glucose 40% Gel) 15-30 GRAMS 15 GRAMS... UD PRN PO 06/21/17 03:30 07/21/17 03:29 Glucose (Glucose Chew Tab) 4-8 Tablets 4 Tabl... UD PRN PO 06/21/17 03:30 07/21/17 03:29 Dextrose (Dextrose 50% 50ML Syringe) 25-50ML OF 50% DW IV FOR... UD PRN IV 06/21/17 03:30 07/21/17 03:29 Glucagon (Glucagon Inj) 1 mg UD PRN SQ 06/21/17 03:30 07/21/17 03:29 Nicotine (Nicoderm Cq 14MG Patch) 1 patch QAM TD 06/21/17 09:00 07/21/17 08:59 06/22/17 08:25 1 PATCH Miscellaneous (Remove Nicoderm Patch) 1 ea HS N/A 06/21/17 21:00 07/21/17 20:59 Aspirin (Ecotrin Tab) 81 mg DAILY PO 06/21/17 09:00 07/21/17 08:59 06/22/17 08:24 81 MG Atorvastatin Calcium (Lipitor Tab) 40 mg DAILY PO 06/21/17 09:00 07/21/17 08:59 06/22/17 08:24 40 MG Clopidogrel Bisulfate (plAVix TAB) 75 mg DAILY PO 06/21/17 09:00 07/21/17 08:59 06/22/17 08:24 75 MG Gabapentin (Neurontin Cap) 100 mg TID PO 06/21/17 09:00 07/21/17 08:59 06/22/17 14:29 100 MG Levothyroxine Sodium (Synthroid Tab) 200 mcg DAILYBB PO 06/21/17 06:00 07/21/17 05:59 06/22/17 06:21 200 MCG Metoprolol Tartrate (Lopressor Tab) 12.5 mg BID PO 06/21/17 09:00 07/21/17 08:59 06/22/17 08:24 12.5 MG Pantoprazole Sodium (Protonix Tab) 40 mg DAILY PO 06/21/17 09:00 07/21/17 08:59 06/22/17 08:25 40 MG Albuterol/ Ipratropium (Duoneb) 3 ml Q2H PRN INH 06/21/17 03:30 07/21/17 03:29 Ondansetron HCl (Zofran Inj) 4 mg Q6H PRN IV 06/21/17 03:30 07/21/17 03:29 Tramadol HCl (Ultram Tab) not relieved by tyle... Q6H PRN PO 06/21/17 03:30 07/21/17 03:29 Ipratropium [place] (Atrovent 0.02% 0.5MG/2.5ML Neb) 0.5 mg Q6R INH 06/21/17 09:00 07/21/17 08:59 06/22/17 14:17 0.5 MG Levalbuterol (Xopenex 1.25MG/ 0.5ML Neb) 1.25 mg Q6R INH 06/21/17 09:00 07/21/17 08:59 06/22/17 14:17 1.25 MG Nystatin (Mycostatin Powder) 1 appln TID EXT 06/21/17 09:00 07/21/17 08:59 06/22/17 14:28 1 APPLN Vancomycin HCl (Consult) 1 [place] PRN N/A 06/21/17 09:00 07/21/17 08:59 Miscellaneous Information (Consult Glycemic Management Pharmacy) 1 [place] N/A 06/21/17 11:03 07/21/17 11:02 Insulin Aspart (novoLOG ASPART) SLIDING SCALE If C... TODAY@0000,0400 [place] 06/22/17 00:00 07/22/17 00:00 06/22/17 05:03 5 UNITS Insulin Glargine (Lantus Solostar Pen) 50 units BID SC 06/22/17 09:00 07/22/17 08:59 06/22/17 08:30 50 UNITS Enteral Nutritional Formula (Boost Glucose Control) 1 can BIDM PO 06/21/17 16:45 07/21/17 16:44 06/22/17 16:54 1 CAN Methylprednisolone Sodium Succinate 40 mg/Syringe 0.64 ml @ 1.5 mls/min Q12H IV 06/22/17 16:00 07/21/17 11:59 06/22/17 15:33 1.5 MLS/MIN Vancomycin HCl 1500 mg/Sodium Chloride 530 ml @ 200 mls/hr Q8H IV 06/22/17 18:00 07/01/17 21:59 06/22/17 17:04 200 MLS/HR Ceftriaxone Sodium 2000 mg/ Dextrose 70 ml @ 100 mls/hr Q24H IV 06/22/17 17:00 07/02/17 16:59 06/22/17 16:52 100 MLS/HR I & O: 24-Hour Column 06/23/17 08:00 Intake Total 890 ml Output Total 600 ml Balance 290 ml Vital Signs: Date Time Temp Pulse Resp B/P (MAP) Pulse Ox O2 Delivery O2 Flow Rate FiO2 06/22/17 14:30 62 20 95 Nasal Cannula 6.0 06/22/17 12:20 Nasal Cannula 6.0 06/22/17 12:00 36.7 62 18 120/65 (83) 96 Nasal Cannula 6.0 06/22/17 08:20 Nasal Cannula 6.0 06/22/17 08:00 36.7 56 20 144/77 (99) 92 Nasal Cannula 6.0 06/22/17 06:55 52 20 95 Nasal Cannula 6.0 06/22/17 05:08 90 92 50 06/22/17 04:00 36.8 52 19 115/63 (80) 90 BiPAP 06/22/17 04:00 BiPAP 50 06/22/17 02:32 55 22 95 BiPAP/CPAP 50 06/22/17 02:31 55 95 50 06/22/17 00:00 36.8 53 22 130/70 (90) 92 06/21/17 23:59 BiPAP 50 06/21/17 23:14 50 06/21/17 22:05 59 92 40 06/21/17 20:00 93 Nasal Cannula 6.0 06/21/17 19:46 36.8 61 21 117/59 (78) 90 Nasal Cannula 06/21/17 18:55 60 22 90 Nasal Cannula 6.0 Laboratory Results: Last 24 Hours Test 06/21/17 20:03 06/22/17 00:01 06/22/17 04:00 06/22/17 06:35 Bedside Glucose 240 mg/dl 223 mg/dl 181 mg/dl White Blood Count 12.98 K/uL Red Blood Count 4.29 M/uL Hemoglobin 13.7 g/dL Hematocrit 43.9 % Mean Corpuscular Volume 102.3 fL Mean Corpuscular Hemoglobin 31.9 pg Mean Corpuscular Hemoglobin Concent 31.2 g/dl Platelet Count 209 K/uL Mean Platelet Volume 9.8 fL Neutrophils (%) (Auto) 92.2 % Lymphocytes (%) (Auto) 3.3 % Monocytes (%) (Auto) 4.2 % Eosinophils (%) (Auto) 0.0 % Basophils (%) (Auto) 0.0 % Neutrophils # (Auto) 11.97 K/uL Lymphocytes # (Auto) 0.43 K/uL Monocytes # (Auto) 0.54 K/uL Eosinophils # (Auto) 0.00 K/uL Basophils # (Auto) 0.00 K/uL RDW Standard Deviation 56.5 fL RDW Coefficient of Variation 15.0 % Immature Granulocyte % (Auto) 0.3 % Immature Granulocyte # (Auto) 0.04 K/uL Creatinine 0.63 mg/dl Est Creatinine Clear Calc Drug Dose 127.9 ml/min Estimated GFR () 115.4 Estimated GFR (Non- 99.6 Test 06/22/17 06:42 06/22/17 11:37 06/22/17 16:17 Bedside Glucose 184 mg/dl 266 mg/dl 184 mg/dl
[2017-06-23] VITALS (12 sets, daily range): BP systolic 118–140; BP diastolic 47–80; PULSE 61–69; TEMP 36.6–37.4; O2SAT 90–96
[2017-06-23] MEDS: INSULIN ASPART 100 UNITS/ML 3 ML PEN SC SCH ×7 (00:28→23:21)
[2017-06-23] MEDS: VANCOMYCIN INJ 1,500 MG in SODIUM CHLORIDE 0.9% 500ML 500 ML IV SCH ×3 (01:32→21:30)
[2017-06-23] MEDS: LEVALBUTEROL 1.25MG/0.5ML NEB INH SCH ×4 (01:39→19:31)
[2017-06-23] MEDS: IPRATROPIUM BROMIDE NEB SOLN 0.02% 2.5 ML VIAL INH SCH ×4 (01:39→19:31)
[2017-06-23] MEDS: METHYLPREDNISOLONE IV 40 MG in SYRINGE 0 ML IV SCH ×2 (04:21→15:39)
[2017-06-23] MEDS: LEVOTHYROXINE 200 MCG TAB PO SCH (05:53)
[2017-06-23] MEDS: GABAPENTIN 100 MG CAP PO SCH ×3 (08:26→20:57)
[2017-06-23] MEDS: PANTOprazole SOD 40 MG TAB PO SCH (08:26)
[2017-06-23] MEDS: NICOTINE 14 MG/24 HR TDSY TD SCH (08:26)
[2017-06-23] MEDS: CLOPIDOGREL BISULFATE 75 MG TAB PO SCH (08:26)
[2017-06-23] MEDS: ASPIRIN 81 MG ECTAB PO SCH (08:26)
[2017-06-23] MEDS: ATORVASTATIN 40 MG TAB PO SCH (08:26)
[2017-06-23] MEDS: ENOXAPARIN 40 MG/0.4 ML SYR SC SCH (08:27)
[2017-06-23] MEDS: METOPROLOL TARTRATE 25 MG TAB PO SCH ×2 (08:27→20:56)
[2017-06-23] MEDS: NYSTATIN POWDER 15GM BTL EXT SCH ×3 (08:27→20:55)
[2017-06-23] MEDS: INSULIN GLARGINE SOLOSTAR 100 UNITS/ML 3 ML PEN SC SCH ×2 (08:39→21:24)
[2017-06-23] MEDS: BOOST GLUCOSE CONTROL PO SCH ×2 (08:39→17:24)
[2017-06-23] MEDS ORDERED: VANCOMYCIN TROUGH SCH (09:30)
[2017-06-23 09:53] LABS: COMPLETE YES; EOS % 0.1 %; HEMATOCRIT 43.1 % (37-47); IG% 0.3 %; LYMPH % 3.2 %; LYMPH ABS # 0.33 K/uL (1.2-3.4); MEAN CELL VOLUME 104.1 fL (80-100); MEAN CORPUSCULAR HEMOGLOBIN 32.1 pg (25-34); MEAN CORPUSCULAR HGB CONC 30.9 g/dl (32-36); MEAN PLATELET VOLUME 9.6 fL (7.4-10.4); MONO % 3.7 %; NEUT % 92.7 %; PLATELET COUNT 223 K/uL (130-400); RED BLOOD COUNT 4.14 M/uL (4.2-5.4); WHITE BLOOD COUNT 10.24 K/uL (4.8-10.8)
--- NOTE | 2017-06-23 10:23 | Infectious Disease Progress Nt ---
Progress Note Date of Service Jun 23, 2017. Subjective Pt evaluation today including: conversation w/ patient, physical exam, chart review, lab review, review of studies, review of inpatient medication list Patient is feeling much improved today. She states that her pain is currently well controlled, and even with movement of the surrounding area, her abdomen is nontender today. Her breathing has improved, and she no longer feels SOB. WBC Count also improved to 10.24 today. Creatinine remains stable. Wound culture growing MRSA, Group G Strep, and Proteus. Blood cultures continue to show no growth. All Other Systems: Reviewed and Negative Medications Current Inpatient Medications Medications (Trade) Dose Ordered Sig/Abdi Route Start Time Stop Time Status Last Admin Dose Admin Ioversol (Optiray 320) 125 ml UD PRN IV 06/20/17 21:45 06/24/17 21:44 Enoxaparin Sodium (Lovenox Inj) 40 mg Q24H SC 06/21/17 08:00 07/21/17 07:59 06/24/17 07:57 40 MG Acetaminophen (Tylenol Tab) 325 mg Q6H PRN PO 06/21/17 03:30 07/21/17 03:29 06/23/17 21:49 325 MG Insulin Aspart (novoLOG ASPART) SLIDING SCALE If C... ACHS SC 06/21/17 07:00 07/21/17 06:59 06/24/17 08:08 23 UNITS Glucose (Glucose 40% Gel) 15-30 GRAMS 15 GRAMS... UD PRN PO 06/21/17 03:30 07/21/17 03:29 Glucose (Glucose Chew Tab) 4-8 Tablets 4 Tabl... UD PRN PO 06/21/17 03:30 07/21/17 03:29 Dextrose (Dextrose 50% 50ML Syringe) 25-50ML OF 50% DW IV FOR... UD PRN IV 06/21/17 03:30 07/21/17 03:29 Glucagon (Glucagon Inj) 1 mg UD PRN SQ 06/21/17 03:30 07/21/17 03:29 Nicotine (Nicoderm Cq 14MG Patch) 1 patch QAM TD 06/21/17 09:00 07/21/17 08:59 06/24/17 07:59 1 PATCH Miscellaneous (Remove Nicoderm Patch) 1 ea HS N/A 06/21/17 21:00 07/21/17 20:59 06/23/17 20:55 1 EA Aspirin (Ecotrin Tab) 81 mg DAILY PO 06/21/17 09:00 07/21/17 08:59 06/24/17 07:56 81 MG Atorvastatin Calcium (Lipitor Tab) 40 mg DAILY PO 06/21/17 09:00 07/21/17 08:59 06/24/17 07:56 40 MG Clopidogrel Bisulfate (plAVix TAB) 75 mg DAILY PO 06/21/17 09:00 07/21/17 08:59 06/24/17 07:56 75 MG Gabapentin (Neurontin Cap) 100 mg TID PO 06/21/17 09:00 07/21/17 08:59 06/24/17 07:56 100 MG Levothyroxine Sodium (Synthroid Tab) 200 mcg DAILYBB PO 06/21/17 06:00 07/21/17 05:59 06/24/17 05:44 200 MCG Metoprolol Tartrate (Lopressor Tab) 12.5 mg BID PO 06/21/17 09:00 07/21/17 08:59 06/24/17 07:55 12.5 MG Pantoprazole Sodium (Protonix Tab) 40 mg DAILY PO 06/21/17 09:00 07/21/17 08:59 06/24/17 07:57 40 MG Albuterol/ Ipratropium (Duoneb) 3 ml Q2H PRN INH 06/21/17 03:30 07/21/17 03:29 Ondansetron HCl (Zofran Inj) 4 mg Q6H PRN IV 06/21/17 03:30 07/21/17 03:29 Tramadol HCl (Ultram Tab) not relieved by tyle... Q6H PRN PO 06/21/17 03:30 07/21/17 03:29 Ipratropium [place] (Atrovent 0.02% 0.5MG/2.5ML Neb) 0.5 mg Q6R INH 06/21/17 09:00 07/21/17 08:59 06/24/17 07:06 0.5 MG Levalbuterol (Xopenex 1.25MG/ 0.5ML Neb) 1.25 mg Q6R INH 06/21/17 09:00 07/21/17 08:59 06/24/17 07:06 1.25 MG Nystatin (Mycostatin Powder) 1 appln TID EXT 06/21/17 09:00 07/21/17 08:59 06/24/17 07:57 1 APPLN Vancomycin HCl (Consult) 1 ea UD PRN N/A 06/21/17 09:00 07/21/17 08:59 Miscellaneous Information (Consult Glycemic Management Pharmacy) 1 UD N/A 06/21/17 11:03 07/21/17 11:02 Enteral Nutritional Formula (Boost Glucose Control) 1 can BIDM PO 06/21/17 16:45 07/21/17 16:44 06/24/17 08:08 1 CAN Ceftriaxone Sodium 2000 mg/ Dextrose 70 ml @ 100 mls/hr Q24H IV 06/22/17 17:00 07/02/17 16:59 06/23/17 17:24 100 MLS/HR Vancomycin HCl 1500 mg/Sodium Chloride 530 ml @ 200 mls/hr Q12H IV 06/23/17 22:00 07/01/17 23:59 06/24/17 09:13 200 MLS/HR Methylprednisolone Sodium Succinate 40 mg/Syringe 0.64 ml @ 1.5 mls/min DAILY IV 06/24/17 09:00 07/21/17 11:59 06/24/17 07:56 1.5 MLS/MIN Insulin Glargine (Lantus Solostar Pen) 75 units DAILY SC 06/24/17 09:00 07/24/17 08:59 06/24/17 08:06 75 UNITS Objective Vital Signs Date Time Temp Pulse Resp B/P (MAP) Pulse Ox O2 Delivery O2 Flow Rate FiO2 06/23/17 08:21 36.6 62 20 140/54 (82) 90 4.0 06/23/17 07:34 68 30 93 Nasal Cannula 4.0 06/23/17 04:00 Nasal Cannula 4.0 06/23/17 04:00 36.9 63 23 119/68 (85) 93 Nasal Cannula 4.0 06/23/17 01:39 63 18 96 Nasal Cannula 4.0 06/23/17 00:00 Nasal Cannula 4.0 06/22/17 20:22 36.8 61 18 135/77 (96) 93 Nasal Cannula 4.0 06/22/17 20:00 Nasal Cannula 4.0 06/22/17 19:27 64 20 91 Nasal Cannula 4.0 06/22/17 16:00 Nasal Cannula 4.0 06/22/17 16:00 36.7 60 20 143/68 (93) 95 Nasal Cannula 6.0 06/22/17 14:30 62 20 95 Nasal Cannula 6.0 06/22/17 12:20 Nasal Cannula 6.0 06/22/17 12:00 36.7 62 18 120/65 (83) 96 Nasal Cannula 6.0 Physical Exam General Appearance: no apparent distress, + obese Eyes: normal inspection, sclerae normal ENT: hearing grossly normal Neck: supple, trachea midline Respiratory/Chest: no respiratory distress, no accessory muscle use Cardiovascular: regular rate, rhythm Abdomen: normal bowel sounds, non tender, soft Neurologic/Psychiatric: alert, normal mood/affect Skin: warm/dry, no rash, + pertinent finding (Very mild, improving erythema of the right abdomen. Wound with very mild drainage today. ) Laboratory Results RUN DATE: 06/23/17 [facility] PAGE 1 RUN TIME: 1247 Specimen Inquiry PATIENT: JENNIFER LEVIN LOC: [facility] U # : [id number] AGE/SX: 56/F ROOM: E212 REG : 07/25/[address]: Yoav Prater MD : [id number] BED: 1 DIS : STATUS: ADM IN TLOC: SPEC #: [id number] LUIS: 06/20/17 STATUS: COMP REQ #: [id number] RECD: 06/20/[address]: Flores Novak DO SOURCE: DRAIN-SURF ENTR: 06/20/[address] [facility] [address]: Ren Marroquin M.D. SPDES: ABD ORDERED: SURF WND CU/ASHER COMMENTS: Has Specimen Been Obtained/Collected? Y Procedure Result Verified Site GRAM STAIN Final 06/21/17 RESULT RARE WBCs SEEN FEW GRAM POSITIVE COCCI SURFACE WOUND CULTURE Final 06/23/17-1246 Organism 1 PROTEUS VULGARIS QUANITY MODERATE SENS SENSITIVITY TO FOLLOW +MIXWOUND PLUS LOW COUNTS OF PROBABLE SKIN VERENICE Organism 2 STAPHYLOCOCCUS AUREUS QUANITY MODERATE SENS SENSITIVITY TO FOLLOW Organism 3 GROUP G BETA STREP QUANITY MODERATE SENS SENSITIVITY TO FOLLOW Organism 4 STAPHYLOCOCCUS AUREUS#2 QUANITY MODERATE SENS NO SENSITIVITY TO FOLLOW SENSITIVITY RESULT INDICATES A METHICILLIN RESISTANT STAPH. AUREUS. PHONED TO [facility] [place] 2E, [employer]. MACHINE ON 06/23/17 AT 0720 BY Hudson Rodriguez. Results were verbalized back to SHIVA. IDENTIFICATION AND SUSCEPTIBILITY TESTING HAVE CONFIRMED THE TWO ORGANISMS PREVIOUSLY REPORTED ARE THE SAME ORGANISM. NO SUSCEPTIBILITY RESULTS WILL BE GENERATED ON THE SECOND ISOLATE. CONTINUED ON NEXT PAGE RUN DATE: 06/23/17 [facility] PAGE 2 RUN TIME: 1247 Specimen Inquiry SPEC: [id number] PATIENT: JENNIFER LEVIN [id number] ( Continued) Procedure Result Verified Site SURFACE WOUND CULTURE Final (continued) 06/23/17-1247 PRO PETER BANEGAS GGBS M.I.C. RX M.I.C. RX M.I.C. RX --------- ------ --------- ------ --------- ------ TRIMET/SULFA <=2/38 S <=0.5/9.5 S AMPICILLIN <=0.06 S * OXACILLIN >2 R AMPICILLIN/SUL <=8/4 S CEFOTAXIME <=2 S <=0.25 S CEFTRIAXONE <=1 S <=0.25 S CEFEPIME <=4 S <=0.25 S CHLORAMPHENICOL 4 S IMIPENEM 4 R VANCOMYCIN 1 S 0.5 S PENICILLIN <=0.03 S GENTAMICIN <=4 S TOBRAMYCIN <=4 S ERYTHROMYCIN <=0.5 S <=0.06 S TETRACYCLINE <=4 S AMIKACIN <=16 S CIPROFLOXACIN <=1 S LEVOFLOXACIN <=2 S CLINDAMYCIN <=0.5 S <=0.06 S ERTAPENEM <=1 S DAPTOMYCIN 1 S PIP/TAZO <=16 S AZITHROMYCIN <=0.25 S RIFAMPIN <=1 S 1. PROTEUS VULGARIS Target Route Dose RX AB Cost M.I.C. IQ ------ ----- ------ -- ------ -------- - ------ TRIMET/SULFA S <=2/38 AMPICILLIN/SUL S <=8/4 CEFOTAXIME S <=2 CEFTRIAXONE S <=1 CEFEPIME S <=4 IMIPENEM R 4 GENTAMICIN S <=4 TOBRAMYCIN S <=4 AMIKACIN S <=16 CIPROFLOXACIN S <=1 LEVOFLOXACIN S <=2 ERTAPENEM S <=1 PIP/TAZO S <=16 CONTINUED ON NEXT PAGE RUN DATE: 06/23/17 [facility] PAGE 3 RUN TIME: 1247 Specimen Inquiry SPEC: [id number] PATIENT: JENNIFER LEVIN [id number] ( Continued) Procedure Result Verified Site SURFACE WOUND CULTURE Final (continued) 06/23/17-1246 2. STAPHYLOCOCCUS AUREUS Target Route Dose RX AB Cost M.I.C. IQ ------ ----- ------ -- ------ -------- - ------ TRIMET/SULFA S <=0.5/ 9.5 * OXACILLIN R * >2 VANCOMYCIN S 1 ERYTHROMYCIN S <=0.5 TETRACYCLINE S <=4 CLINDAMYCIN S <=0.5 DAPTOMYCIN S 1 RIFAMPIN S <=1 3. GROUP G BETA STREP Target Route Dose RX AB Cost M.I.C. IQ ------ ----- ------ -- ------ -------- - ------ AMPICILLIN S <=0.06 CEFOTAXIME S <=0.25 CEFTRIAXONE S <=0.25 CEFEPIME S <=0.25 CHLORAMPHENICOL S 4 VANCOMYCIN S 0.5 PENICILLIN S <=0.03 ERYTHROMYCIN S <=0.06 CLINDAMYCIN S <=0.06 AZITHROMYCIN S <=0.25 S = SENSITIVE I = INTERMEDIATE R = RESISTANT Item Value Date Time Blood Culture - Preliminary Resulted 06/20/17 2227 Blood NO GROWTH TO DATE. Blood Culture - Preliminary Resulted 06/20/17 2216 Blood NO GROWTH TO DATE. Urine Culture - Final Complete 06/20/17 2154 Urine,Catheterized MORE THAN THREE TYPES OF ORGANISMS UT... Gram Stain - Final Complete 06/20/17 2130 Drainage - Surface Abdomen Last 24 Hours Test 06/22/17 11:37 06/22/17 16:17 06/22/17 20:42 06/23/17 00:21 Bedside Glucose 266 mg/dl 184 mg/dl 158 mg/dl 266 mg/dl Test 06/23/17 04:19 06/23/17 07:06 06/23/17 09:35 06/23/17 09:43 Bedside Glucose 149 mg/dl 146 mg/dl White Blood Count 10.24 K/uL Red Blood Count 4.14 M/uL Hemoglobin 13.3 g/dL Hematocrit 43.1 % Mean Corpuscular Volume 104.1 fL Mean Corpuscular Hemoglobin 32.1 pg Mean Corpuscular Hemoglobin Concent 30.9 g/dl Platelet Count 223 K/uL Mean Platelet Volume 9.6 fL Neutrophils (%) (Auto) 92.7 % Lymphocytes (%) (Auto) 3.2 % Monocytes (%) (Auto) 3.7 % Eosinophils (%) (Auto) 0.1 % Basophils (%) (Auto) 0.0 % Neutrophils # (Auto) 9.49 K/uL Lymphocytes # (Auto) 0.33 K/uL Monocytes # (Auto) 0.38 K/uL Eosinophils # (Auto) 0.01 K/uL Basophils # (Auto) 0.00 K/uL RDW Standard Deviation 58.1 fL RDW Coefficient of Variation 15.0 % Immature Granulocyte % (Auto) 0.3 % Immature Granulocyte # (Auto) 0.03 K/uL Assessment and Plan Patient with right lower abdominal wound and cellulitis. Patient has polymicrobial infection her abdominal wound with Proteus, MRSA, and strep. She is currently on IV Ceftriaxone and Vancomycin. Will continue for 1 more day. If she continues to improve as much as she has the past few days, likely can transition to PO Bactrim DS BID and PO Keflex 500 mg QID x tomorrow for at least 2 more weeks. She will need wound care follow up - likely with [facility] since she is from [place]. We will follow. PROVIDER ADDENDUM: Patient reviewed with AKASH. agree with above assessment.
[2017-06-23 10:34] LABS: CREATININE 0.62 mg/dl (0.60-1.20)
[2017-06-23 10:38] LABS: BUN/CREATININE RATIO 29.8 (10-20); CALCIUM 9.9 mg/dl (8.5-10.1); CREATININE 0.6 mg/dl (0.60-1.20); POTASSIUM 4.9 mmol/L (3.5-5.1)
--- NOTE | 2017-06-23 10:39 | Pharmacy Progress Note ---
Pharmacy Abx Dose Short Note Date of Service Jun 23, 2017. Assessment & Plan Assessment 56 year old female receiving Vancomycin + Rocephin IV for treatment of abdominal wall cellulitis. Day # 3 of antimicrobial therapy. Plan Vancomycin * Trough level of 18.6 mcg/mL is therapeutic. * Given patient's BMI >35, she is at risk for drug accumulation. Although this level is therapeutic, I would assume her levels will continue to rise if she maintains on this same dosing. * Change dose to 1500 mg IV every 12 hours. * Per ID, if patient continues to improve, plan will be to switch to orals tomorrow. * Hold off on re-ordering levels at this time. Pharmacy will continue to follow and will adjust dose/frequency as necessary. Thank you.
--- NOTE | 2017-06-23 10:53 | Pharmacy Progress Note ---
Glycemic Control Progress Note Date of Service Jun 23, 2017. Scope Glycemic Pharmacist consulted for glycemic control to write orders per [facility] inpatient glycemic control protocol. Objective Accuchecks BSG (last 24hrs): Test 06/22/17 11:37 06/22/17 16:17 06/22/17 20:42 06/23/17 00:21 Bedside Glucose 266 mg/dl (70-90) 184 mg/dl (70-90) 158 mg/dl (70-90) 266 mg/dl (70-90) Test 06/23/17 04:19 06/23/17 07:06 06/23/17 09:43 Bedside Glucose 149 mg/dl (70-90) 146 mg/dl (70-90) Random Glucose 272 mg/dl (70-99) HbA1c: Test 06/20/17 21:00 Hemoglobin A1c 9.0 % (4.5-5.6) H Recent Pertinent Medications The patient is currently receiving: * Basal insulin: Lantus 50 units every 12 hours * Correctional Insulin: Novolog Correction per scale ACHS Goal Range: Low 110 mg/dL - High 140 mg/dL Correction Factor: 9 mg/dL/unit * Prandial insulin: Per carb ratio of 1 unit per 3 grams CHO consumed Outpatient Anti-Diabetic Meds Basal Insulin Bolus Insulin Total outpatient dose = 127 units of insulin per day Assessment & Plan ASSESSMENT: * See progress note from 06/21/17 for more background info, in short: She is admitted with acute on chronic resp failure secondary to COPD exac / acute bronchitis as well as abdominal wound cellulitis * Pt receiving SQ basal bolus insulin regimen for hyperglycemia secondary to baseline DM, stress/infection, steroids * Patient is currently receiving an average of 198 units of insulin per day * 100 units of basal insulin * 98 units of prandial/correctional insulin * BSGs ranging 158 - 266 mg/dl over the past 24hrs * Changes needed to insulin regimen: * AM Fasting BSG = 146 mg/dl. This is within goal range for this patient. Currently she is receiving double home regimen of Lantus so it will be important to quickly titrate down as steroids tapered. * Post-prandial BSGs are trending within range therefore no changes needed to CF/CR * Total daily dose = 198 units. This dosing is yielding adequate glycemic control and is a 50/50 split between basal/prandial. PLAN FOR INPATIENT GLYCEMIC CONTROL: * Basal insulin * Lantus 50 units SQ BID * Bolus insulin * NovoLog per scale ACHS or Q6hrs while NPO * Goal Range: Low 110 mg/dL - High 140 mg/dL * Correction Factor: 9 mg/dL/unit * Nutritional / Prandial insulin per carb ratio of 1 unit per 3 grams CHO consumed * Please note that the plan above was derived based on current level of insulin resistance and hospital stress. These recommendations are appropriate for inpatient admission only. Plan of care upon discharge will need to be reassessed to avoid potential outpatient hypo/hyperglycemia. Thank you.
--- NOTE | 2017-06-23 11:50 | Pulmonology Progress Note ---
Pulmonary Progress Note Date of Service Jun 23, 2017. Attending Dr. Naik Subjective Feeling improved. Continues to report cough which is chronic in nature and non- progressive. Denies fevers or chills. Abdominal discomfort is improved. Objective The patient is a 56 year old admitted to [facility] with hypoxic - hypercarbic respiratory failure and MRSA/Group B-strep, proteus vulgaris abdominal wound and cellulitis. Prior records were reviewed. PMHx includes: COPD/pulmonary emphysema (PFT 2005 - moderate restrictive process), nocturnal O2 (4LPM), IDDM, HLD, abdominal wound - poor healing, hypothyroid, morbid obesity, h/o admission (02/2016 - pneumonia) and CAD s/p ISABEL-RCA (11/2011), h/o MRSA. Tobacco use: 42-pack year, current 1/2-ppd. Patient presented through the [facility] ER 06/20/17 with left sided chest and abdominal pain s/p fall post micturition without LOC. Additionally, she reported 1-1.5 week history of loose cough without associated dyspnea, fevers/ chills or chest pain. In the ER she was hypoxic 76%-21%. AB.28/71/62-4LPM/32 requiring O2 titration and BiPAP. Labs notable for leukocytosis. Lactic acid and ammonia: unremarkable. Exam and radiographic findings suggestive of abdominal cellulitis with h/o non-healing wound. She is treated with PO steroid, broad spectrum antibiotic (doxycycline, cefepime & vancomycin). Wound and BC: pending. Echocardiogram: pEF, Grade II diastolic dysfunction Today: - SaO2 90-96% 4LPM - Afebrile, HD Stable - Wt: 133kg - Abdominal wound: Proteus Vulgaris, MRSA, and Group G beta - not using nocturnal BiPAP Physical Exam: Constitutional: Chronically ill appearing morbidly obese female sitting in chair at bedside, no acute distress Head: + facial symmetry Eyes: EOMi, PERRLA, non injection Mouth: Moist mucous membranes Respiratory: Coarse scattered rales. NO rhonchi. Scant end-expiratory wheeze anteriorly CV: diminished S1, S2, regular rate. : queen catheter draining dark urine MSK/Extremities: Moving bilaterally. ++ peripheral edema. Assessment & Plan 1. Suspect obesity hypoventilation syndrome: Split night PSG as an outpatient 2. H/O Chronic cough and restrictive lung process likely 2/2 body habitus - PFTs as outpatient post improvement of abdominal wound - Initiate Combivent QID with Q4hour PRN albuterol 3. Increased rales on exam today - recommend dose nancy diuresis Patient's case has been reviewed implant agreed upon. Data Medications: Current Inpatient Medications Medications (Trade) Dose Ordered Sig/Abdi Route Start Time Stop Time Status Last Admin Dose Admin Ioversol (Optiray 320) 125 ml UD PRN IV 06/20/17 21:45 06/24/17 21:44 Enoxaparin Sodium (Lovenox Inj) 40 mg Q24H SC 06/21/17 08:00 07/21/17 07:59 06/23/17 08:27 40 MG Acetaminophen (Tylenol Tab) 325 mg Q6H PRN PO 06/21/17 03:30 07/21/17 03:29 Insulin Aspart (novoLOG ASPART) SLIDING SCALE If C... ACHS SC 06/21/17 07:00 07/21/17 06:59 06/23/17 08:38 29 UNITS Glucose (Glucose 40% Gel) 15-30 GRAMS 15 GRAMS... UD PRN PO 06/21/17 03:30 07/21/17 03:29 Glucose (Glucose Chew Tab) 4-8 Tablets 4 Tabl... UD PRN PO 06/21/17 03:30 07/21/17 03:29 Dextrose (Dextrose 50% 50ML Syringe) 25-50ML OF 50% DW IV FOR... UD PRN IV 06/21/17 03:30 07/21/17 03:29 Glucagon (Glucagon Inj) 1 mg UD PRN SQ 06/21/17 03:30 07/21/17 03:29 Nicotine (Nicoderm Cq 14MG Patch) 1 patch QAM TD 06/21/17 09:00 07/21/17 08:59 06/23/17 08:26 1 PATCH Miscellaneous (Remove Nicoderm Patch) 1 ea HS N/A 06/21/17 21:00 07/21/17 20:59 06/22/17 20:58 1 EA Aspirin (Ecotrin Tab) 81 mg DAILY PO 06/21/17 09:00 07/21/17 08:59 06/23/17 08:26 81 MG Atorvastatin Calcium (Lipitor Tab) 40 mg DAILY PO 06/21/17 09:00 07/21/17 08:59 06/23/17 08:26 40 MG Clopidogrel Bisulfate (plAVix TAB) 75 mg DAILY PO 06/21/17 09:00 07/21/17 08:59 06/23/17 08:26 75 MG Gabapentin (Neurontin Cap) 100 mg TID PO 06/21/17 09:00 07/21/17 08:59 06/23/17 08:26 100 MG Levothyroxine Sodium (Synthroid Tab) 200 mcg DAILYBB PO 06/21/17 06:00 07/21/17 05:59 06/23/17 05:53 200 MCG Metoprolol Tartrate (Lopressor Tab) 12.5 mg BID PO 06/21/17 09:00 07/21/17 08:59 06/23/17 08:27 12.5 MG Pantoprazole Sodium (Protonix Tab) 40 mg DAILY PO 06/21/17 09:00 07/21/17 08:59 06/23/17 08:26 40 MG Albuterol/ Ipratropium (Duoneb) 3 ml Q2H PRN INH 06/21/17 03:30 07/21/17 03:29 Ondansetron HCl (Zofran Inj) 4 mg Q6H PRN IV 06/21/17 03:30 07/21/17 03:29 Tramadol HCl (Ultram Tab) not relieved by tyle... Q6H PRN PO 06/21/17 03:30 07/21/17 03:29 Ipratropium [place] (Atrovent 0.02% 0.5MG/2.5ML Neb) 0.5 mg Q6R INH 06/21/17 09:00 07/21/17 08:59 06/23/17 07:30 0.5 MG Levalbuterol (Xopenex 1.25MG/ 0.5ML Neb) 1.25 mg Q6R INH 06/21/17 09:00 07/21/17 08:59 06/23/17 07:30 1.25 MG Nystatin (Mycostatin Powder) 1 appln TID EXT 06/21/17 09:00 07/21/17 08:59 06/23/17 08:27 1 APPLN Vancomycin HCl (Consult) 1 [facility] PRN N/A 06/21/17 09:00 07/21/17 08:59 Miscellaneous Information (Consult Glycemic Management Pharmacy) 1 [facility] N/A 06/21/17 11:03 07/21/17 11:02 Insulin Aspart (novoLOG ASPART) SLIDING SCALE If C... TODAY@0000,0400 [place] 06/22/17 00:00 07/22/17 00:00 06/23/17 04:25 1 UNITS Insulin Glargine (Lantus Solostar Pen) 50 units BID SC 06/22/17 09:00 07/22/17 08:59 06/23/17 08:39 50 UNITS Enteral Nutritional Formula (Boost Glucose Control) 1 can BIDM PO 06/21/17 16:45 07/21/17 16:44 06/23/17 08:39 1 CAN Methylprednisolone Sodium Succinate 40 mg/Syringe 0.64 ml @ 1.5 mls/min Q12H IV 06/22/17 16:00 07/21/17 11:59 06/23/17 04:21 1.5 MLS/MIN Vancomycin HCl 1500 mg/Sodium Chloride 530 ml @ 200 mls/hr Q8H IV 06/22/17 18:00 07/01/17 21:59 06/23/17 01:32 200 MLS/HR Ceftriaxone Sodium 2000 mg/ Dextrose 70 ml @ 100 mls/hr Q24H IV 06/22/17 17:00 07/02/17 16:59 06/22/17 16:52 100 MLS/HR Vital Signs: Date Time Temp Pulse Resp B/P (MAP) Pulse Ox O2 Delivery O2 Flow Rate FiO2 06/23/17 08:21 36.6 62 20 140/54 (82) 90 4.0 06/23/17 07:34 68 30 93 Nasal Cannula 4.0 06/23/17 04:00 Nasal Cannula 4.0 06/23/17 04:00 36.9 63 23 119/68 (85) 93 Nasal Cannula 4.0 06/23/17 01:39 63 18 96 Nasal Cannula 4.0 06/23/17 00:00 Nasal Cannula 4.0 06/22/17 20:22 36.8 61 18 135/77 (96) 93 Nasal Cannula 4.0 06/22/17 20:00 Nasal Cannula 4.0 06/22/17 19:27 64 20 91 Nasal Cannula 4.0 06/22/17 16:00 Nasal Cannula 4.0 06/22/17 16:00 36.7 60 20 143/68 (93) 95 Nasal Cannula 6.0 06/22/17 14:30 62 20 95 Nasal Cannula 6.0 06/22/17 12:20 Nasal Cannula 6.0 06/22/17 12:00 36.7 62 18 120/65 (83) 96 Nasal Cannula 6.0 Laboratory Results: Last 24 Hours Test 06/22/17 11:37 06/22/17 16:17 06/22/17 20:42 06/23/17 00:21 Bedside Glucose 266 mg/dl 184 mg/dl 158 mg/dl 266 mg/dl Test 06/23/17 04:19 06/23/17 04:44 06/23/17 07:06 Bedside Glucose 149 mg/dl 146 mg/dl
[2017-06-23] MEDS: CEFTRIAXONE SOD INJ 2,000 MG in DEXTROSE 5% 50ML 50 ML IV SCH (17:24)
--- NOTE | 2017-06-23 18:34 | Progress Note ---
Medicine Progress Note Date & Time of Visit: Jun 23, 2017 at 18:28. Subjective patient seen resting in bed, comfortable continues to feel improved less cough, no dyspnea on 3 liters NC denies abdominal pain no other symptoms Objective Last 8 Hrs Date Time Temp Pulse Resp B/P (MAP) Pulse Ox O2 Delivery O2 Flow Rate FiO2 06/23/17 16:37 36.8 62 22 138/80 (99) 91 Nasal Cannula 4.0 06/23/17 16:00 94 Nasal Cannula 4.0 06/23/17 14:28 62 20 94 Nasal Cannula 4.0 06/23/17 12:20 Nasal Cannula 4.0 06/23/17 11:50 37.1 62 24 140/67 (91) 92 4.0 Physical Exam: General- oriented x 3, not in distress, speaks in sentences with no effort Neck- no JVD Lungs- mild rales bilateral bases, no wheezing Heart- regular rhythm; no murmur, normal rate Abdomen- (+) significant erythema, no warmth on the abdominal wall/pannus and inguinal region (+) incision on the lower abdomen- slight dehiscence, less discharge normal bowel sounds, soft Extremities- no pretibial edema, no calf tenderness Neuro- alert, oriented x 3; no gross focal deficit Skin- warm & dry Laboratory Results: Last 24 Hours Test 06/22/17 20:42 06/23/17 00:21 06/23/17 04:19 06/23/17 07:06 Bedside Glucose 158 mg/dl 266 mg/dl 149 mg/dl 146 mg/dl Test 06/23/17 09:35 06/23/17 09:43 06/23/17 11:17 06/23/17 15:59 Creatinine 0.62 mg/dl 0.60 mg/dl Est Creatinine Clear Calc Drug Dose 129.6 ml/min 133.9 ml/min Estimated GFR () 116.0 117.3 Estimated GFR (Non- 100.1 101.2 Vancomycin Level Trough 18.6 mcg/ml White Blood Count 10.24 K/uL Red Blood Count 4.14 M/uL Hemoglobin 13.3 g/dL Hematocrit 43.1 % Mean Corpuscular Volume 104.1 fL Mean Corpuscular Hemoglobin 32.1 pg Mean Corpuscular Hemoglobin Concent 30.9 g/dl Platelet Count 223 K/uL Mean Platelet Volume 9.6 fL Neutrophils (%) (Auto) 92.7 % Lymphocytes (%) (Auto) 3.2 % Monocytes (%) (Auto) 3.7 % Eosinophils (%) (Auto) 0.1 % Basophils (%) (Auto) 0.0 % Neutrophils # (Auto) 9.49 K/uL Lymphocytes # (Auto) 0.33 K/uL Monocytes # (Auto) 0.38 K/uL Eosinophils # (Auto) 0.01 K/uL Basophils # (Auto) 0.00 K/uL RDW Standard Deviation 58.1 fL RDW Coefficient of Variation 15.0 % Immature Granulocyte % (Auto) 0.3 % Immature Granulocyte # (Auto) 0.03 K/uL Sodium Level 134 mmol/L Potassium Level 4.9 mmol/L Chloride Level 100 mmol/L Carbon Dioxide Level 32 mmol/L Anion Gap 2.0 mmol/L Blood Urea Nitrogen 18 mg/dl BUN/Creatinine Ratio 29.8 Random Glucose 272 mg/dl Calcium Level 9.9 mg/dl Bedside Glucose 247 mg/dl 115 mg/dl Assessment & Plan 56 year old female with history of CAD, DM, HTN, COPD, chronic abdominal wound , presenting s/p fall in the bathroom. ACUTE ON CHRONIC HYPOXIC, HYPERCAPNEIC RESPIRATORY FAILURE SECONDARY TO COPD EXACERBATION, POSSIBLE BIBASILAR PNEUMONIA -- off bipap ABG slightly improved repeat CXR: possible lower lobe b/l pneumonia -- improving, now on 4L via nasal cannula afebrile WBC normalized -- continue Vanc + Cefti + Doxy Nebs Prednisone 40mg po changed to Solumedrol 40mg , now daily -- night time Bipap needs outpatient sleep studies -- appreciate Pulm input SEPSIS SECONDARY TO ABDOMINAL WOUND INFECTION, CELLULITIS -- lactic acid normal -- Wound culture: (+) proteus, resistant to Imipenem; MRSA, Strep -- abdominal wall with increased erythema but clinically improving overall monitor -- continue Vancomycin, Ceftri, Doxy Day 3 ID consulted, appreciate the input RIGHT PLEURAL EFFUSION -- check Echo to r/o CHF -- echo: -- Conclusions -- * No significant change compared to previous study of 06/20/15. * Normal LV chamber size with mild concentric LVH. * Normal LV systolic function, EF 60-65%. * No segmental left ventricular wall motion abnormalities are noted. * Grade II diastolic dysfunction. * Poorly visualized valvular structures, no significant stenosis or regurgitation by Doppler. -- (+) mild rales will order low dose lasix 20mg IV one dose monitor DM 2 -- on Solumedrol Pharmacy consulted for Glycemic Mgt HTN -- continue Metoprolol CAD s/p STENT -- continue Aspirin, Plavix, Statin, Metoprolol DVT PROPHYLAXIS -- Lovenox CODE STATUS -- DNR DISPOSITION -- pending -- may need SNF PT/OT ordered Current Inpatient Medications: Current Inpatient Medications Medications (Trade) Dose Ordered Sig/Abdi Route Start Time Stop Time Status Last Admin Dose Admin Ioversol (Optiray 320) 125 ml UD PRN IV 06/20/17 21:45 06/24/17 21:44 Enoxaparin Sodium (Lovenox Inj) 40 mg Q24H SC 06/21/17 08:00 07/21/17 07:59 06/23/17 08:27 40 MG Acetaminophen (Tylenol Tab) 325 mg Q6H PRN PO 06/21/17 03:30 07/21/17 03:29 Insulin Aspart (novoLOG ASPART) SLIDING SCALE If C... ACHS SC 06/21/17 07:00 07/21/17 06:59 06/23/17 17:29 31 UNITS Glucose (Glucose 40% Gel) 15-30 GRAMS 15 GRAMS... UD PRN PO 06/21/17 03:30 07/21/17 03:29 Glucose (Glucose Chew Tab) 4-8 Tablets 4 Tabl... UD PRN PO 06/21/17 03:30 07/21/17 03:29 Dextrose (Dextrose 50% 50ML Syringe) 25-50ML OF 50% DW IV FOR... UD PRN IV 06/21/17 03:30 07/21/17 03:29 Glucagon (Glucagon Inj) 1 mg UD PRN SQ 06/21/17 03:30 07/21/17 03:29 Nicotine (Nicoderm Cq 14MG Patch) 1 patch QAM TD 06/21/17 09:00 07/21/17 08:59 06/23/17 08:26 1 PATCH Miscellaneous (Remove Nicoderm Patch) 1 ea HS N/A 06/21/17 21:00 07/21/17 20:59 06/22/17 20:58 1 EA Aspirin (Ecotrin Tab) 81 mg DAILY PO 06/21/17 09:00 07/21/17 08:59 06/23/17 08:26 81 MG Atorvastatin Calcium (Lipitor Tab) 40 mg DAILY PO 06/21/17 09:00 07/21/17 08:59 06/23/17 08:26 40 MG Clopidogrel Bisulfate (plAVix TAB) 75 mg DAILY PO 06/21/17 09:00 07/21/17 08:59 06/23/17 08:26 75 MG Gabapentin (Neurontin Cap) 100 mg TID PO 06/21/17 09:00 07/21/17 08:59 06/23/17 14:06 100 MG Levothyroxine Sodium (Synthroid Tab) 200 mcg DAILYBB PO 06/21/17 06:00 07/21/17 05:59 06/23/17 05:53 200 MCG Metoprolol Tartrate (Lopressor Tab) 12.5 mg BID PO 06/21/17 09:00 07/21/17 08:59 06/23/17 08:27 12.5 MG Pantoprazole Sodium (Protonix Tab) 40 mg DAILY PO 06/21/17 09:00 07/21/17 08:59 06/23/17 08:26 40 MG Albuterol/ Ipratropium (Duoneb) 3 ml Q2H PRN INH 06/21/17 03:30 07/21/17 03:29 Ondansetron HCl (Zofran Inj) 4 mg Q6H PRN IV 06/21/17 03:30 07/21/17 03:29 Tramadol HCl (Ultram Tab) not relieved by tyle... Q6H PRN PO 06/21/17 03:30 07/21/17 03:29 Ipratropium [place] (Atrovent 0.02% 0.5MG/2.5ML Neb) 0.5 mg Q6R INH 06/21/17 09:00 07/21/17 08:59 06/23/17 14:27 0.5 MG Levalbuterol (Xopenex 1.25MG/ 0.5ML Neb) 1.25 mg Q6R INH 06/21/17 09:00 07/21/17 08:59 06/23/17 14:27 1.25 MG Nystatin (Mycostatin Powder) 1 appln TID EXT 06/21/17 09:00 07/21/17 08:59 06/23/17 14:06 1 APPLN Vancomycin HCl (Consult) 1 ea UD PRN N/A 06/21/17 09:00 07/21/17 08:59 Miscellaneous Information (Consult Glycemic Management Pharmacy) 1 UD N/A 06/21/17 11:03 07/21/17 11:02 Insulin Aspart (novoLOG ASPART) SLIDING SCALE If C... TODAY@0000,0400 IN 06/22/17 00:00 07/22/17 00:00 06/23/17 04:25 1 UNITS Insulin Glargine (Lantus Solostar Pen) 50 units BID SC 06/22/17 09:00 07/22/17 08:59 06/23/17 08:39 50 UNITS Enteral Nutritional Formula (Boost Glucose Control) 1 can BIDM PO 06/21/17 16:45 07/21/17 16:44 06/23/17 17:24 1 CAN Methylprednisolone Sodium Succinate 40 mg/Syringe 0.64 ml @ 1.5 mls/min Q12H IV 06/22/17 16:00 07/21/17 11:59 06/23/17 15:39 1.5 MLS/MIN Ceftriaxone Sodium 2000 mg/ Dextrose 70 ml @ 100 mls/hr Q24H IV 06/22/17 17:00 07/02/17 16:59 06/23/17 17:24 100 MLS/HR Vancomycin HCl 1500 mg/Sodium Chloride 530 ml @ 200 mls/hr Q12H IV 06/23/17 22:00 07/01/17 23:59
[2017-06-23] MEDS ORDERED: FUROSEMIDE INJ 20 MG in SYRINGE 0 ML IV ONE (19:00)
[2017-06-24] VITALS (8 sets, daily range): BP systolic 115–139; BP diastolic 58–92; PULSE 58–66; TEMP 36.6–36.8; O2SAT 84–96
[2017-06-24] MEDS: IPRATROPIUM BROMIDE NEB SOLN 0.02% 2.5 ML VIAL INH SCH ×3 (01:40→14:11)
[2017-06-24] MEDS: LEVALBUTEROL 1.25MG/0.5ML NEB INH SCH ×3 (01:40→14:11)
[2017-06-24] MEDS: INSULIN ASPART 100 UNITS/ML 3 ML PEN SC SCH ×3 (04:44→11:43)
[2017-06-24] MEDS: LEVOTHYROXINE 200 MCG TAB PO SCH (05:44)
[2017-06-24 05:58] LABS: BUN/CREATININE RATIO 36.2 (10-20); CALCIUM 9.7 mg/dl (8.5-10.1); CREATININE 0.5 mg/dl (0.60-1.20); POTASSIUM 4.3 mmol/L (3.5-5.1)
[2017-06-24] MEDS: METOPROLOL TARTRATE 25 MG TAB PO SCH (07:55)
[2017-06-24] MEDS: GABAPENTIN 100 MG CAP PO SCH ×2 (07:56→13:20)
[2017-06-24] MEDS: CLOPIDOGREL BISULFATE 75 MG TAB PO SCH (07:56)
[2017-06-24] MEDS: ASPIRIN 81 MG ECTAB PO SCH (07:56)
[2017-06-24] MEDS: ATORVASTATIN 40 MG TAB PO SCH (07:56)
[2017-06-24] MEDS: ENOXAPARIN 40 MG/0.4 ML SYR SC SCH (07:57)
[2017-06-24] MEDS: PANTOprazole SOD 40 MG TAB PO SCH (07:57)
[2017-06-24] MEDS: NYSTATIN POWDER 15GM BTL EXT SCH ×2 (07:57→13:20)
[2017-06-24] MEDS: NICOTINE 14 MG/24 HR TDSY TD SCH (07:59)
[2017-06-24] MEDS: BOOST GLUCOSE CONTROL PO SCH (08:08)
[2017-06-24] MEDS ORDERED: INSULIN GLARGINE SOLOSTAR 100 UNITS/ML 3 ML PEN SC SCH ×2 (09:00)
[2017-06-24] MEDS ORDERED: METHYLPREDNISOLONE IV 40 MG in SYRINGE 0 ML IV SCH (09:00)
[2017-06-24] MEDS: VANCOMYCIN INJ 1,500 MG in SODIUM CHLORIDE 0.9% 500ML 500 ML IV SCH (09:13)
--- NOTE | 2017-06-24 12:03 | Pharmacy Progress Note ---
Glycemic Control Progress Note Date of Service Jun 24, 2017. Scope Glycemic Pharmacist consulted for glycemic control to write orders per [facility] inpatient glycemic control protocol. Objective Accuchecks BSG (last 24hrs): Test 06/23/17 15:59 06/23/17 20:01 06/23/17 23:19 06/24/17 04:05 Bedside Glucose 115 mg/dl (70-90) 214 mg/dl (70-90) 149 mg/dl (70-90) 111 mg/dl (70-90) Test 06/24/17 04:46 06/24/17 06:52 Random Glucose 104 mg/dl (70-99) Bedside Glucose 83 mg/dl (70-90) HbA1c: Test 06/20/17 21:00 Hemoglobin A1c 9.0 % (4.5-5.6) H Recent Pertinent Medications The patient is currently receiving: * Basal insulin: Lantus 50 units every 12 hours * Correctional Insulin: Novolog Correction per scale ACHS Goal Range: Low 110 mg/dL - High 140 mg/dL Correction Factor: 9 mg/dL/unit * Prandial insulin: Per carb ratio of 1 unit per 3 grams CHO consumed Outpatient Anti-Diabetic Meds Basal Insulin Bolus Insulin Assessment & Plan ASSESSMENT: * See progress note from 06/21/17 for more background info, in short: She is admitted with acute on chronic resp failure secondary to COPD exac / acute bronchitis as well as abdominal wound cellulitis * Pt receiving SQ basal bolus insulin regimen for hyperglycemia secondary to baseline DM, stress/infection, steroids * Patient is currently receiving an average of 206 units of insulin per day * 100 units of basal insulin * 106 units of prandial/correctional insulin * BSGs ranging 149 - 247 mg/dl over the past 24hrs * Changes needed to insulin regimen: * AM Fasting BSG = 83 mg/dl. This is slightly below goal range. Decrease total daily basal dose of 100 units to 75 units daily (~25% reduction) * Post-prandial BSGs are trending slightly below goal range. Loosen CF/CR moving forward. * Steroids further tapered from Solumedrol 40 mg IV BID to daily. I anticipate insulin needs to cut back from ~200 units/day to 150-175 units/day over the next 24 hours. Continue to aggressively scale back as necessary to avoid hypoglycemia as steroids tapered. PLAN FOR INPATIENT GLYCEMIC CONTROL: * Basal insulin * Lantus 75 units SQ daily * Continue to titrate back to home regimen in the AM if BSGs continue to be at or below goal range * Bolus insulin * NovoLog per scale ACHS or Q6hrs while NPO * Goal Range: Low 110 mg/dL - High 140 mg/dL * Correction Factor: 10 mg/dL/unit * Nutritional / Prandial insulin per carb ratio of 1 unit per 4 grams CHO consumed * Please note that the plan above was derived based on current level of insulin resistance and hospital stress. These recommendations are appropriate for inpatient admission only. Plan of care upon discharge will need to be reassessed to avoid potential outpatient hypo/hyperglycemia. Thank you.
--- NOTE | 2017-06-24 13:10 | Infectious Disease Progress Nt ---
Progress Note Date of Service Jun 24, 2017. Subjective Pt evaluation today including: conversation w/ patient, physical exam, chart review, lab review, review of studies, conversation w/ insurance consultant Patient is feeling well today. She states that she does not have any real pain in her abdomen today. Her creatinine is 0.50. She is hoping to leave soon. Her blood cultures continue should show no growth to date. Her wound culture was finalized and is growing MRSA, group G beta strep, and Proteus. She has not had any repeat imaging studies completed. All Other Systems: Reviewed and Negative Medications Current Inpatient Medications Medications (Trade) Dose Ordered Sig/Abdi Route Start Time Stop Time Status Last Admin Dose Admin Ioversol (Optiray 320) 125 ml UD PRN IV 06/20/17 21:45 06/24/17 21:44 Enoxaparin Sodium (Lovenox Inj) 40 mg Q24H SC 06/21/17 08:00 07/21/17 07:59 06/24/17 07:57 40 MG Acetaminophen (Tylenol Tab) 325 mg Q6H PRN PO 06/21/17 03:30 07/21/17 03:29 06/23/17 21:49 325 MG Insulin Aspart (novoLOG ASPART) SLIDING SCALE If C... ACHS SC 06/21/17 07:00 07/21/17 06:59 06/24/17 11:43 22 UNITS Glucose (Glucose 40% Gel) 15-30 GRAMS 15 GRAMS... UD PRN PO 06/21/17 03:30 07/21/17 03:29 Glucose (Glucose Chew Tab) 4-8 Tablets 4 Tabl... UD PRN PO 06/21/17 03:30 07/21/17 03:29 Dextrose (Dextrose 50% 50ML Syringe) 25-50ML OF 50% DW IV FOR... UD PRN IV 06/21/17 03:30 07/21/17 03:29 Glucagon (Glucagon Inj) 1 mg UD PRN SQ 06/21/17 03:30 07/21/17 03:29 Nicotine (Nicoderm Cq 14MG Patch) 1 patch QAM TD 06/21/17 09:00 07/21/17 08:59 06/24/17 07:59 1 PATCH Miscellaneous (Remove Nicoderm Patch) 1 ea HS N/A 06/21/17 21:00 07/21/17 20:59 06/23/17 20:55 1 EA Aspirin (Ecotrin Tab) 81 mg DAILY PO 06/21/17 09:00 07/21/17 08:59 06/24/17 07:56 81 MG Atorvastatin Calcium (Lipitor Tab) 40 mg DAILY PO 06/21/17 09:00 07/21/17 08:59 06/24/17 07:56 40 MG Clopidogrel Bisulfate (plAVix TAB) 75 mg DAILY PO 06/21/17 09:00 07/21/17 08:59 06/24/17 07:56 75 MG Gabapentin (Neurontin Cap) 100 mg TID PO 06/21/17 09:00 07/21/17 08:59 06/24/17 13:20 100 MG Levothyroxine Sodium (Synthroid Tab) 200 mcg DAILYBB PO 06/21/17 06:00 07/21/17 05:59 06/24/17 05:44 200 MCG Metoprolol Tartrate (Lopressor Tab) 12.5 mg BID PO 06/21/17 09:00 07/21/17 08:59 06/24/17 07:55 12.5 MG Pantoprazole Sodium (Protonix Tab) 40 mg DAILY PO 06/21/17 09:00 07/21/17 08:59 06/24/17 07:57 40 MG Albuterol/ Ipratropium (Duoneb) 3 ml Q2H PRN INH 06/21/17 03:30 07/21/17 03:29 Ondansetron HCl (Zofran Inj) 4 mg Q6H PRN IV 06/21/17 03:30 07/21/17 03:29 Tramadol HCl (Ultram Tab) not relieved by tyle... Q6H PRN PO 06/21/17 03:30 07/21/17 03:29 Ipratropium [place] (Atrovent 0.02% 0.5MG/2.5ML Neb) 0.5 mg Q6R INH 06/21/17 09:00 07/21/17 08:59 06/24/17 14:11 0.5 MG Levalbuterol (Xopenex 1.25MG/ 0.5ML Neb) 1.25 mg Q6R INH 06/21/17 09:00 8/24/17 08:59 06/24/17 14:11 1.25 MG Nystatin (Mycostatin Powder) 1 appln TID EXT 06/21/17 09:00 07/21/17 08:59 06/24/17 13:20 1 APPLN Miscellaneous Information (Consult Glycemic Management Pharmacy) 1 ea UD N/A 06/21/17 11:03 07/21/17 11:02 Enteral Nutritional Formula (Boost Glucose Control) 1 can BIDM PO 06/21/17 16:45 07/21/17 16:44 06/24/17 08:08 1 CAN Methylprednisolone Sodium Succinate 40 mg/Syringe 0.64 ml @ 1.5 mls/min DAILY IV 06/24/17 09:00 07/21/17 11:59 06/24/17 07:56 1.5 MLS/MIN Insulin Glargine (Lantus Solostar Pen) 50 units DAILY SC 06/25/17 09:00 07/25/17 08:59 Trimethoprim/ Sulfamethoxazole (Septra Ds 800/ 160MG Tab) 1 tab Q12 PO 06/24/17 21:00 07/08/17 20:59 Cephalexin Monohydrate (Keflex Cap) 500 mg QID PO 06/24/17 17:00 07/08/17 16:59 Objective Vital Signs Date Time Temp Pulse Resp B/P (MAP) Pulse Ox O2 Delivery O2 Flow Rate FiO2 06/24/17 12:00 Nasal Cannula 4.0 06/24/17 11:39 36.8 60 20 139/92 (108) 90 Nasal Cannula 4.0 06/24/17 08:00 Nasal Cannula 4.0 06/24/17 07:48 36.6 63 22 115/58 (77) 91 Nasal Cannula 4.0 06/24/17 07:06 58 20 93 Nasal Cannula 4.0 06/24/17 04:00 36.7 59 24 120/64 (82) 93 Nasal Cannula 4.0 06/24/17 04:00 Nasal Cannula 4.0 06/24/17 01:40 58 20 96 Nasal Cannula 4.0 06/23/17 23:59 Nasal Cannula 4.0 06/23/17 23:24 37.4 61 26 118/47 (70) 92 Nasal Cannula 4.0 06/23/17 20:28 37.0 67 24 138/58 (84) 93 Nasal Cannula 4.0 06/23/17 20:00 93 Nasal Cannula 4.0 06/23/17 19:31 69 20 91 Nasal Cannula 4.0 06/23/17 16:37 36.8 62 22 138/80 (99) 91 Nasal Cannula 4.0 06/23/17 16:00 94 Nasal Cannula 4.0 06/23/17 14:28 62 20 94 Nasal Cannula 4.0 Physical Exam General Appearance: + obese Eyes: normal inspection, sclerae normal ENT: hearing grossly normal Neck: supple, trachea midline Respiratory/Chest: no respiratory distress, + accessory muscle use Cardiovascular: regular rate, rhythm Abdomen: normal bowel sounds, non tender, soft Neurologic/Psychiatric: alert, normal mood/affect Skin: + pertinent finding (very faint erythema of the abdominal wall. ) Laboratory Results Last 24 Hours Test 06/23/17 15:59 06/23/17 20:01 06/23/17 23:19 06/24/17 04:05 Bedside Glucose 115 mg/dl 214 mg/dl 149 mg/dl 111 mg/dl Test 06/24/17 04:46 06/24/17 06:52 06/24/17 11:37 Sodium Level 137 mmol/L Potassium Level 4.3 mmol/L Chloride Level 97 mmol/L Carbon Dioxide Level 37 mmol/L Anion Gap 3.0 mmol/L Blood Urea Nitrogen 18 mg/dl Creatinine 0.50 mg/dl Est Creatinine Clear Calc Drug Dose 160.7 ml/min Estimated GFR () 124.5 Estimated GFR (Non- 107.4 BUN/Creatinine Ratio 36.2 Random Glucose 104 mg/dl Calcium Level 9.7 mg/dl Bedside Glucose 83 mg/dl 98 mg/dl Assessment and Plan Patient with right lower abdominal wound and cellulitis. Patient has polymicrobial infection her abdominal wound with Proteus, MRSA, and strep. She is currently on IV Ceftriaxone and Vancomycin. Will transition to PO Bactrim DS BID and PO Keflex 500 mg QID for at least 2 more weeks. She will need wound care follow up - likely with [facility] since she is from [place]. We will follow. PROVIDER ADDENDUM: patient reviewed with AKASH. agree with above assessment.
--- NOTE | 2017-06-24 14:54 | Progress Note ---
Medicine Progress Note Date & Time of Visit: Jun 24, 2017 at 14:43. Subjective patient seen resting in bed, comfortable states she feels better overall denies dyspnea, on 4 liters NC cough has resolved denies abdominal wall pain, chills no other symptoms states she is ready and would like to be discharged today declines transitioning to SNF/Rehab, accepting of risks including falls, injuries Objective Last 8 Hrs Date Time Temp Pulse Resp B/P (MAP) Pulse Ox O2 Delivery O2 Flow Rate FiO2 06/24/17 14:11 66 20 88 Nasal Cannula 4.0 06/24/17 13:40 84 Room Air 06/24/17 12:00 Nasal Cannula 4.0 06/24/17 11:39 36.8 60 20 139/92 (108) 90 Nasal Cannula 4.0 06/24/17 08:00 Nasal Cannula 4.0 06/24/17 07:48 36.6 63 22 115/58 (77) 91 Nasal Cannula 4.0 06/24/17 07:06 58 20 93 Nasal Cannula 4.0 Physical Exam: General- oriented x 3, not in distress, speaks in sentences with no effort Neck- no JVD Lungs- clear breath sounds bilaterally, no rales/wheezes Heart- regular rhythm; no murmur, normal rate Abdomen- (+) mild erythema, no warmth on the abdominal wall/pannus and inguinal region (+) incision on the lower abdomen- healing, no discharge normal bowel sounds, soft Extremities- no pretibial edema, no calf tenderness Neuro- alert, oriented x 3; no gross focal deficit Skin- warm & dry Laboratory Results: Last 24 Hours Test 06/23/17 15:59 06/23/17 20:01 06/23/17 23:19 06/24/17 04:05 Bedside Glucose 115 mg/dl 214 mg/dl 149 mg/dl 111 mg/dl Test 06/24/17 04:46 06/24/17 06:52 06/24/17 11:37 Sodium Level 137 mmol/L Potassium Level 4.3 mmol/L Chloride Level 97 mmol/L Carbon Dioxide Level 37 mmol/L Anion Gap 3.0 mmol/L Blood Urea Nitrogen 18 mg/dl Creatinine 0.50 mg/dl Est Creatinine Clear Calc Drug Dose 160.7 ml/min Estimated GFR () 124.5 Estimated GFR (Non- 107.4 BUN/Creatinine Ratio 36.2 Random Glucose 104 mg/dl Calcium Level 9.7 mg/dl Bedside Glucose 83 mg/dl 98 mg/dl Assessment & Plan 56 year old female with history of CAD, DM, HTN, COPD, chronic abdominal wound , presenting s/p fall in the bathroom. ACUTE ON CHRONIC HYPOXIC, HYPERCAPNEIC RESPIRATORY FAILURE SECONDARY TO COPD EXACERBATION, POSSIBLE BIBASILAR PNEUMONIA -- off bipap ABG improved repeat CXR: possible lower lobe b/l pneumonia -- improved, now on 4L via nasal cannula afebrile WBC normalized -- received Vanco IV x 4 days, + Cefepime IV x 2 days, transitioned to Ceftri IV x 2 days, + Doxy IV x 2 days Nebs Solumedrol IV night time Bipap -- evaluated by Pulmonary [facility]- Dr. Naik/PA Marissa Ingram recommend Combivent QID, PRN Albuterol outpatient Sleep Study to r/o Obstructive Sleep Apnea - to be discharged on Bactrim BID and Doxy x 2 more weeks Combivent QID Prednisone taper ff up with PCP in 1 week SEPSIS SECONDARY TO ABDOMINAL WOUND INFECTION, CELLULITIS -- lactic acid normal -- Wound culture: (+) proteus, resistant to Imipenem; MRSA, Strep -- clinically improved --received Vancomycin, Ceftri, Doxy x 4 days ID consulted, recommend PO Bactrim and Doxy x 2 weeks follow up with Wound Care in 1 week RIGHT PLEURAL EFFUSION Echo: -- echo: -- Conclusions -- * No significant change compared to previous study of 06/20/15. * Normal LV chamber size with mild concentric LVH. * Normal LV systolic function, EF 60-65%. * No segmental left ventricular wall motion abnormalities are noted. * Grade II diastolic dysfunction. * Poorly visualized valvular structures, no significant stenosis or regurgitation by Doppler. -- recommend Lasix 20mg po q2d check crea on follow up with PCP next week, then regularly monitor volume status as outpatient DM 2 -- Pharmacy consulted for Glycemic Mgt -- resume usual Insulin regimen HTN -- continue Metoprolol CAD s/p STENT -- continue Aspirin, Plavix, Statin, Metoprolol DVT PROPHYLAXIS -- Lovenox CODE STATUS -- DNR DISPOSITION d/c home ff up with PCP next week ff up with Wound Care center next week ff up with Pulmonary in 1-2 weeks (Dr. Naik) Current Inpatient Medications: Current Inpatient Medications Medications (Trade) Dose Ordered Sig/Abdi Route Start Time Stop Time Status Last Admin Dose Admin Ioversol (Optiray 320) 125 ml UD PRN IV 06/20/17 21:45 06/24/17 21:44 Enoxaparin Sodium (Lovenox Inj) 40 mg Q24H SC 06/21/17 08:00 07/21/17 07:59 06/24/17 07:57 40 MG Acetaminophen (Tylenol Tab) 325 mg Q6H PRN PO 06/21/17 03:30 07/21/17 03:29 06/23/17 21:49 325 MG Insulin Aspart (novoLOG ASPART) SLIDING SCALE If C... ACHS SC 06/21/17 07:00 07/21/17 06:59 06/24/17 11:43 22 UNITS Glucose (Glucose 40% Gel) 15-30 GRAMS 15 GRAMS... UD PRN PO 06/21/17 03:30 07/21/17 03:29 Glucose (Glucose Chew Tab) 4-8 Tablets 4 Tabl... UD PRN PO 06/21/17 03:30 07/21/17 03:29 Dextrose (Dextrose 50% 50ML Syringe) 25-50ML OF 50% DW IV FOR... UD PRN IV 06/21/17 03:30 07/21/17 03:29 Glucagon (Glucagon Inj) 1 mg UD PRN SQ 06/21/17 03:30 07/21/17 03:29 Nicotine (Nicoderm Cq 14MG Patch) 1 patch QAM TD 06/21/17 09:00 07/21/17 08:59 06/24/17 07:59 1 PATCH Miscellaneous (Remove Nicoderm Patch) 1 ea HS N/A 06/21/17 21:00 07/21/17 20:59 06/23/17 20:55 1 EA Aspirin (Ecotrin Tab) 81 mg DAILY PO 06/21/17 09:00 07/21/17 08:59 06/24/17 07:56 81 MG Atorvastatin Calcium (Lipitor Tab) 40 mg DAILY PO 06/21/17 09:00 07/21/17 08:59 06/24/17 07:56 40 MG Clopidogrel Bisulfate (plAVix TAB) 75 mg DAILY PO 06/21/17 09:00 07/21/17 08:59 06/24/17 07:56 75 MG Gabapentin (Neurontin Cap) 100 mg TID PO 06/21/17 09:00 07/21/17 08:59 06/24/17 13:20 100 MG Levothyroxine Sodium (Synthroid Tab) 200 mcg DAILYBB PO 06/21/17 06:00 07/21/17 05:59 06/24/17 05:44 200 MCG Metoprolol Tartrate (Lopressor Tab) 12.5 mg BID PO 06/21/17 09:00 07/21/17 08:59 06/24/17 07:55 12.5 MG Pantoprazole Sodium (Protonix Tab) 40 mg DAILY PO 06/21/17 09:00 07/21/17 08:59 06/24/17 07:57 40 MG Albuterol/ Ipratropium (Duoneb) 3 ml Q2H PRN INH 06/21/17 03:30 07/21/17 03:29 Ondansetron HCl (Zofran Inj) 4 mg Q6H PRN IV 06/21/17 03:30 07/21/17 03:29 Tramadol HCl (Ultram Tab) not relieved by tyle... Q6H PRN PO 06/21/17 03:30 07/21/17 03:29 Ipratropium [place] (Atrovent 0.02% 0.5MG/2.5ML Neb) 0.5 mg Q6R INH 06/21/17 09:00 07/21/17 08:59 06/24/17 14:11 0.5 MG Levalbuterol (Xopenex 1.25MG/ 0.5ML Neb) 1.25 mg Q6R INH 06/21/17 09:00 07/21/17 08:59 06/24/17 14:11 1.25 MG Nystatin (Mycostatin Powder) 1 appln TID EXT 06/21/17 09:00 07/21/17 08:59 06/24/17 13:20 1 APPLN Miscellaneous Information (Consult Glycemic Management Pharmacy) 1 ea UD N/A 06/21/17 11:03 07/21/17 11:02 Enteral Nutritional Formula (Boost Glucose Control) 1 can BIDM PO 06/21/17 16:45 07/21/17 16:44 06/24/17 08:08 1 CAN Methylprednisolone Sodium Succinate 40 mg/Syringe 0.64 ml @ 1.5 mls/min DAILY IV 06/24/17 09:00 07/21/17 11:59 06/24/17 07:56 1.5 MLS/MIN Insulin Glargine (Lantus Solostar Pen) 50 units DAILY SC 06/25/17 09:00 07/25/17 08:59 Trimethoprim/ Sulfamethoxazole (Septra Ds 800/ 160MG Tab) 1 tab Q12 PO 06/24/17 21:00 07/08/17 20:59 Cephalexin Monohydrate (Keflex Cap) 500 mg QID PO 06/24/17 17:00 07/08/17 16:59
[2017-06-24] MEDS ORDERED: PRED10TA PO (15:02)
[2017-06-24] MEDS ORDERED: IPRA1AER2 INH (15:02)
[2017-06-24] MEDS ORDERED: LCTX PO (15:02)
[2017-06-24] MEDS ORDERED: OXGN (15:02)
[2017-06-24] MEDS ORDERED: SULF-183 PO (15:02)
[2017-06-24] MEDS ORDERED: KFL500 PO (15:02)
[2017-06-24] MEDS ORDERED: FURO-85 PO (15:02)
--- NOTE | 2017-06-24 15:06 | Discharge Instructions ---
Discharge Instructions Date of Service Jun 24, 2017. Admission Reason for Admission: Respiratory Failure, [id number]-Goggckz Discharge Discharge Diagnosis / Problem: Acute On Chronic Respiratory Failure, Pneumonia , COPD Exacerbation Discharge Goals Goal(s): Diagnostic testing, Therapeutic intervention Activity Recommendations Activity Limitations: as noted below (no heavy exertion until seen by primary care physician) . Instructions / Follow-Up Instructions / Follow-Up PLEASE REVIEW YOUR NEW MEDICATION LIST CAREFULLY. CALL PRIMARY CARE PHYSICIAN OR RETURN TO ER IMMEDIATELY IF WITH RECURRENCE OF SYMPTOMS, COUGH, SHORTNESS OF BREATH, FEVER, INCREASING ABDOMINAL WALL REDNESS/WARMTH, DISCHARGE ON WOUND. NO SMOKING. FOLLOW UP WITH DR. LAWRENCE ON THURSDAY JUNE 29, 2017 AT 2:45 PM FOLLOW UP WITH WOUND CARE CENTER NEXT WEEK. Current Hospital Diet Patient's current hospital diet: Diabetes Type 2 Diet Discharge Diet Recommended Diet: AHA Diet (Heart Healthy), Diabetes Type 2 Diet Fluid Restriction: 2000 ml (8 cups) Pending Studies Studies pending at discharge: no Laboratory Results Hemoglobin A1c Test 06/20/17 21:00 Range/Units Estimated Average Glucose 212 mg/dl Hemoglobin A1c 9.0 H 4.5-5.6 % Medical Emergencies . Who to Call and When: Medical Emergencies: If at any time you feel your situation is an emergency, please call 911 immediately. . Non-Emergent Contact Non-Emergency issues call your: Primary Care Provider Call Non-Emergent contact if: you have a fever, your pain is not controlled, your pain is worsening, wound has increased drainage, wound has increased redness, wound has increased pain, you have any medication questions . . "Provider Documentation" section prepared by Yoav Prater. . VTE Core Measure Inpt VTE Proph given/why not?: Enoxaparin (Lovenox)SQ
[2017-06-24] MEDS ORDERED: CEPHALEXIN MONOHYDRATE 500 MG CAP PO SCH (17:00)
[2017-06-24] MEDS ORDERED: SULFAMETHOXAZOLE/TRIMETHOPRIM DS 800/160MG TAB PO SCH (21:00)
[2017-06-25] MEDS ORDERED: INSULIN GLARGINE SOLOSTAR 100 UNITS/ML 3 ML PEN SC SCH (09:00)
--- NOTE | 2017-06-26 22:01 | Discharge Summary ---
Discharge Summary Date of Service Jun 25, 2017. Discharge Summary Admission Date: Jun 21, 2017 at 02:41 Discharge Date: Jun 24, 2017 Discharge Disposition: Home with services Principal Diagnosis: ACUTE ON CHRONIC HYPOXIC, HYPERCAPNEIC RESPIRATORY FAILURE SECONDARY TO COPD EXACERBATION, POSSIBLE BIBASILAR PNEUMONIA Secondary Diagnoses/Problems: Please refer to hospital course below. Procedures: Echo * No significant change compared to previous study of 06/20/15. * Normal LV chamber size with mild concentric LVH. * Normal LV systolic function, EF 60-65%. * No segmental left ventricular wall motion abnormalities are noted. * Grade II diastolic dysfunction. * Poorly visualized valvular structures, no significant stenosis or regurgitation by Doppler. (CHEST) THORAX WITH HISTORY: 56 years-old Female trauma, sob, left rib pain symptoms are acute. COMPARISON: CT abdomen and pelvis 06/20/2017, chest CT 02/02/2016 TECHNIQUE: Multiple axial CT images of the chest were obtained following the intravenous administration of 93 mL Optiray 320. A dose lowering technique was used consistent with the principals of NARCISA. FINDINGS: Thyroid is not imaged. Mildly prominent nonspecific lymph nodes are seen about the chest, largest of which is a 2 x 1 cm subcarinal lymph node. Heart is mildly enlarged with three-vessel distribution coronary arterial calcifications. No thoracic pseudoaneurysm or dissection identified. The opacified pulmonary arterial tree is unremarkable. There is no pneumothorax. There is trace right pleural fluid noted. There is moderate amount of dependent atelectasis with some areas of subpleural cystic change. Multifocal areas of mosaic attenuation throughout the bilateral lungs suggests air trapping. The central airways are patent. There is trace. Trace perihepatic ascites with lobulated margin of the liver. Liver appears enlarged. Prior cholecystectomy. There is diffuse moderate body wall edema. Bones appear intact without acute fracture or dislocation identified. IMPRESSION: 1. No acute cardiopulmonary process. No evidence of posttraumatic injury to the chest. 2. No pneumothorax. 3. Trace right pleural effusion with bibasilar opacities suggesting atelectasis. There is multifocal air trapping. 4. Trace perihepatic ascites with moderate diffuse body wall edema. CT OF THE ABDOMEN AND PELVIS WITH CONTRAST CLINICAL HISTORY: trauma, pain left flank COMPARISON STUDY: None. TECHNIQUE: Following IV administration of 93 mL of Optiray-320, axial images of the abdomen and pelvis were obtained from the lung bases to the proximal femurs. Images were reviewed in the axial, sagittal, and coronal planes. IV contrast was administered without complication. A dose lowering technique was utilized adhering to the principles of ALARA. FINDINGS: The chest will be reported separately. The liver is lobulated. There is trace perihepatic ascites. Pneumobilia is noted. There is no evidence of traumatic injury to the liver, spleen, adrenal glands, kidneys or pancreas. Excreted contrast within the collecting systems and ureters is noted. There is no hydronephrosis. The caliber and wall thickness of small and large bowel are normal. A left adrenal nodule is unchanged since exam November 09, 2014. This is benign. Anasarca or subcutaneous edema of the anterior abdominal wall is again noted. No acute lumbar spine or pelvic fractures identified. A Hyde balloon is present within the bladder which is collapsed. IMPRESSION: 1. No evidence of traumatic injury to the solid abdominal viscera. 2. Subcutaneous edema/anasarca of the anterior abdominal wall. 3. Lobulated liver with trace perihepatic ascites. Consultations: Pulmonary Dr. Naik, ID Dr. Zamudio Pending Studies/Follow-Up: Please refer to hospital course below. Medication Reconciliation New Medications: Furosemide (Lasix) 20 Mg Tab 20 MG PO Q2D for 30 Days, #15 TAB 1 Refill Ipratropium-Albuterol (Combivent Respimat) 1 Aer Aer 1 PUFFS INH QID for 30 Days, #1 INH 2 Refills Lactobacillus Acidophilus (Floranex) 1 Tab Tab 1 TAB PO TID, #45 TABS 1 Refill Prednisone Tab (Prednisone) 10 Mg Tab 10 MG PO UD, #15 TAB take 4 tabs po daily x 2 days, then take 2 tabs po daily x 2 days, then take 1 tab po daily x 2 days, then take 1/2 tab po daily x 2 days, then STOp Cephalexin Monohydrate (Cephalexin) 500 Mg Cap 500 MG PO QID for 14 Days, #56 CAP 0 Refills Sulfamethoxazole-Trimethoprim (Smz-Tmp Ds) 1 Tab Tab 1 TAB PO Q12 for 14 Days, #28 TAB 0 Refills Changed Medications: Home O2 Therapy (Oxygen) Gas 4 LITERS NA CONTINOUS for 30 Days (Changed from: HS) Continued Medications: Albuterol Sulf (Proventil 0.083% 2.5MG/3ML) 2.5 Mg/3 Ml Nebu 2.5 MG INH Q4H PRN for Shortness of Breath, EA Albuterol Sulfate (Proair Respiclick) 108 Mcg/Act Aer 2 PUFFS INH Q4H PRN for Shortness of Breath Aspirin (Aspirin EC Low Dose) 81 Mg Ectab 81 MG PO DAILY Atorvastatin (Atorvastatin Calcium) 40 Mg Tab 40 MG PO DAILY Clopidogrel Bisulfate (Clopidogrel) 75 Mg Tab 75 MG PO DAILY Gabapentin (Gabapentin) 100 Mg Cap 100 MG PO TID Insulin Glargine (Lantus Solostar) 100 Unit/Ml Inj 55 UNITS SC QAM Insulin Lispro (Human) (Humalog Kwikpen) 100 Unit/Ml Inj 24 UNITS SC AC Levothyroxine Sodium (Levothyroxine Sodium) 200 Mcg Tab 200 MCG PO DAILY Metoprolol Tartrate (Lopressor) 25 Mg Tab 12.5 MG PO BID Pantoprazole Sodium (Protonix) 20 Mg Tab 20 MG PO DAILY Admission Information HPI (per Admitting provider): History obtained from patient and records. Medical history significant for chronic respiratory failure secondary to COPD on home O2, ongoing tobacco abuse, cirrhosis secondary to autoimmune hepatitis, CAD, status post stenting, PVD, DM2 insulin requiring, morbid obesity, hypertension, hyperlipidemia, history of MRSA. Recent confinement at [facility] 04/2016 for gangrene of the toe. Patient transferred from [facility]. The patient found to have blackened right fifth toe, subsequent amputation of right foot fifth digit for necrosis. As per the patient, she had breakdown of her old section wound during last year's confinement which healed slowly. The last 2 days the patient noted increasing shortness of breath, cough productive of junky sputum. Denies aspiration. No chest pain. Increasing shortness of breath. No actual fever, chills. Patient fell at home hours ago because of weakness and bad balance. No syncope, no head trauma. Patient brought to the Emergency Room. Given vancomycin for abdominal wall cellulitis. Physical Exam (per Admitting): VITAL SIGNS: Blood pressure noted to be 118/52, pulse rate 70, RR 24, temperature 36.6, sats 96 on room air. GENERAL: Obese, looks older for stated age, unkempt, some respiratory distress. SKIN: Normal color. HEENT: [place] palpebral conjunctivae. Dry mucosa. Nasal cannula noted NECK: Short neck. CHEST: Expiratory wheezes. HEART: Regular rate and rhythm. ABDOMEN: Erythema anterior abdomen. There is an open wound with exposed subcutaneous tissue on the hypogastrium with scant drainage. EXTREMITIES: Minimal LE edema, no tenderness. NEUROLOGIC: No gross focality. Hospital Course 56 year old female with history of CAD, DM, HTN, COPD, chronic abdominal wound , presenting s/p fall in the bathroom. ACUTE ON CHRONIC HYPOXIC, HYPERCAPNEIC RESPIRATORY FAILURE SECONDARY TO COPD EXACERBATION, POSSIBLE BIBASILAR PNEUMONIA -- off bipap ABG improved repeat CXR: possible lower lobe b/l pneumonia -- improved, now on 4L via nasal cannula afebrile WBC normalized -- received Vanco IV x 4 days, + Cefepime IV x 2 days, transitioned to Ceftri IV x 2 days, + Doxy IV x 2 days Nebs Solumedrol IV night time Bipap -- evaluated by Pulmonary [facility]- Dr. Naik/CEDRICK Ingram recommend Combivent QID, PRN Albuterol outpatient Sleep Study to r/o Obstructive Sleep Apnea - to be discharged on Bactrim BID and Doxy x 2 more weeks Combivent QID Prednisone taper ff up with PCP in 1 week SEPSIS SECONDARY TO ABDOMINAL WOUND INFECTION, CELLULITIS -- lactic acid normal -- Wound culture: (+) proteus, resistant to Imipenem; MRSA, Strep -- clinically improved --received Vancomycin, Ceftri, Doxy x 4 days ID consulted, recommend PO Bactrim and Doxy x 2 weeks follow up with Wound Care in 1 week RIGHT PLEURAL EFFUSION Echo: -- echo: -- Conclusions -- * No significant change compared to previous study of 06/20/15. * Normal LV chamber size with mild concentric LVH. * Normal LV systolic function, EF 60-65%. * No segmental left ventricular wall motion abnormalities are noted. * Grade II diastolic dysfunction. * Poorly visualized valvular structures, no significant stenosis or regurgitation by Doppler. -- recommend Lasix 20mg po q2d check crea on follow up with PCP next week, then regularly monitor volume status as outpatient DM 2 -- Pharmacy consulted for Glycemic Mgt -- resume usual Insulin regimen HTN -- continue Metoprolol CAD s/p STENT -- continue Aspirin, Plavix, Statin, Metoprolol DVT PROPHYLAXIS -- Lovenox CODE STATUS -- DNR DISPOSITION d/c home ff up with PCP next week ff up with Wound Care center next week ff up with Pulmonary in 1-2 weeks (Dr. Naik) Total time spent on discharge = 40 mins This includes examination of the patient, discharge planning, medication reconciliation, and communication with other providers. Discharge Instructions Discharge Instructions Date of Service Jun 24, 2017. Admission Reason for Admission: Respiratory Failure, [id number]-Crklenv Discharge Discharge Diagnosis / Problem: Acute On Chronic Respiratory Failure, Pneumonia , COPD Exacerbation Discharge Goals Goal(s): Diagnostic testing, Therapeutic intervention Activity Recommendations Activity Limitations: as noted below (no heavy exertion until seen by primary care physician) . Instructions / Follow-Up Instructions / Follow-Up PLEASE REVIEW YOUR NEW MEDICATION LIST CAREFULLY. CALL PRIMARY CARE PHYSICIAN OR RETURN TO ER IMMEDIATELY IF WITH RECURRENCE OF SYMPTOMS, COUGH, SHORTNESS OF BREATH, FEVER, INCREASING ABDOMINAL WALL REDNESS/WARMTH, DISCHARGE ON WOUND. NO SMOKING. FOLLOW UP WITH DR. LAWRENCE ON THURSDAY JUNE 29, 2017 AT 2:45 PM FOLLOW UP WITH WOUND CARE CENTER NEXT WEEK. Current Hospital Diet Patient's current hospital diet: Diabetes Type 2 Diet Discharge Diet Recommended Diet: AHA Diet (Heart Healthy), Diabetes Type 2 Diet Fluid Restriction: 2000 ml (8 cups) Pending Studies Studies pending at discharge: no Laboratory Results Hemoglobin A1c Test 06/20/17 21:00 Range/Units Estimated Average Glucose 212 mg/dl Hemoglobin A1c 9.0 H 4.5-5.6 % Medical Emergencies . Who to Call and When: Medical Emergencies: If at any time you feel your situation is an emergency, please call 911 immediately. . Non-Emergent Contact Non-Emergency issues call your: Primary Care Provider Call Non-Emergent contact if: you have a fever, your pain is not controlled, your pain is worsening, wound has increased drainage, wound has increased redness, wound has increased pain, you have any medication questions . . "Provider Documentation" section prepared by Yoav Prater. . VTE Core Measure Inpt VTE Proph given/why not?: Enoxaparin (Lovenox)SQ <Electronically signed by Yoav Prater MD> Signed: 06/24/17 1506 Signed: The status of this report is Signed * If report status is Draft, the document has not been finalized by the responsible provider.
--- NOTE | 2017-06-30 15:47 | EDITING REQUIRED CODING QUERY ---
CODING QUERY To promote full compliance with coding requirements relating to patient care, provider participation is requested in all cases of abalone fisherman uncertainty. Please assist us with the question(s) below: Coding Question(s): Dr. Prater, Please clarify if sepsis was: ( ) present on admission ( ) not present on admission ( ) other, please explain Physician's Response(s): Please forward to admitting Physician Dr. Valverde. Thanks! Thank you for your time, CECILIA Juan, HOSPITAL NURSE
--- NOTE | 2017-07-18 10:42 | EDITING REQUIRED CODING QUERY ---
CODING QUERY To promote full compliance with coding requirements relating to patient care, provider participation is requested in all cases of financial aid director uncertainty. Please assist us with the question(s) below: Coding Question(s): Dr. Prater, Please clarify if sepsis was: ( x ) present on admission ( ) not present on admission ( ) other, please explain Physician's Response(s): Thank you for your time, CECILIA Juan, BLOW PIT HELPER
[2017-09-08] MEDS ORDERED: NICO21DI4 TD (13:27)
== END 2017-06-24 16:14 | disposition home health service (06) | DRG 871 ==
LOC: EDBD 21:06 → C.EDB 21:09 → C.2E 06-21 02:41 → UNDOADMIN 06-21 02:41 → ENRESERV 06-21 02:46
PROVIDERS: ADMIT Internal Medicine; ATTEND Internal Medicine
DX: A41.9 Sepsis, unspecified organism (principal); J96.21 Acute and chronic respiratory failure with hypoxia; J96.22 Acute and chronic respiratory failure with hypercapnia; J18.9 Pneumonia, unspecified organism; J44.1 Chronic obstructive pulmonary disease with (acute) exacerbation; J90 Pleural effusion, not elsewhere classified; L03.311 Cellulitis of abdominal wall; E66.2 Morbid (severe) obesity with alveolar hypoventilation; J44.0 Chronic obstructive pulmonary disease with (acute) lower respiratory infection; W01.0XXA Fall on same level from slipping, tripping and stumbling without subsequent striking against object, initial encounter; T14.8 Other injury of unspecified body region; B96.4 Proteus (mirabilis) (morganii) as the cause of diseases classified elsewhere; X58.XXXA Exposure to other specified factors, initial encounter; E11.628 Type 2 diabetes mellitus with other skin complications; B95.4 Other streptococcus as the cause of diseases classified elsewhere; B95.62 Methicillin resistant Staphylococcus aureus infection as the cause of diseases classified elsewhere; Z16.39 Resistance to other specified antimicrobial drug; Y92.002 Bathroom of unspecified non-institutional (private) residence as the place of occurrence of the external cause; K74.69 Other cirrhosis of liver; K75.4 Autoimmune hepatitis; I25.10 Atherosclerotic heart disease of native coronary artery without angina pectoris; I10 Essential (primary) hypertension; I73.9 Peripheral vascular disease, unspecified; E78.5 Hyperlipidemia, unspecified; E03.9 Hypothyroidism, unspecified; R60.1 Generalized edema; M79.605 Pain in left leg; M79.604 Pain in right leg; Z66 Do not resuscitate; Z99.81 Dependence on supplemental oxygen; Z89.421 Acquired absence of other right toe(s); Z95.5 Presence of coronary angioplasty implant and graft; Z73.6 Limitation of activities due to disability; Z99.3 Dependence on wheelchair; Z79.82 Long term (current) use of aspirin; Z79.02 Long term (current) use of antithrombotics/antiplatelets; Z79.4 Long term (current) use of insulin; Z79.899 Other long term (current) drug therapy

== ENCOUNTER 2017-06-29 21:06 | Observation (INO) | payer OTHER ==
[~2017-06-29] VITALS: Ht 157.5 cm; Wt 129.4 kg
[~2017-06-29 21:06] MED LIST changes: +FURO-85 PO; +IPRA1AER2 INH; +KFL500 PO; +LCTX PO; +PRED10TA PO; +SULF-183 PO
[2017-06-29 21:38] LABS: MEAN CELL VOLUME 101.8 fL (80-100); MEAN CORPUSCULAR HEMOGLOBIN 32.5 pg (25-34); MEAN PLATELET VOLUME 9.9 fL (7.4-10.4); PLATELET COUNT 281 K/uL (130-400); RED BLOOD COUNT 4.52 M/uL (4.2-5.4); WHITE BLOOD COUNT 11.31 K/uL (4.8-10.8)
[2017-06-29 21:46] LABS: ALT/SGPT 110 U/L (12-78); BLOOD UREA NITROGEN 16 mg/dl (7-18); BUN/CREATININE RATIO 19.1 (10-20); CALCIUM 9.1 mg/dl (8.5-10.1); CARBON DIOXIDE 34 mmol/L (21-32); CHLORIDE 94 mmol/L (98-107); CREATININE 0.82 mg/dl (0.60-1.20); GLUCOSE 312 mg/dl (70-99); POTASSIUM 4.3 mmol/L (3.5-5.1); SODIUM 133 mmol/L (136-145)
[2017-06-29 21:48] LABS: ALB/GLOB RATIO 0.5 (0.9-2); AST/SGOT 98 U/L (15-37)
--- NOTE | 2017-06-29 21:52 | DIAGNOSTIC IMAGING REPORT ---
CHEST ONE VIEW PORTABLE CLINICAL HISTORY: cp dyspnea COMPARISON STUDY: 06/21/2017 mild stable cardiomegaly. FINDINGS: Mild stable cardia megaly. Mild bibasilar parenchymal infiltrative change. Upper lungs are considered clear. IMPRESSION: Mild bibasilar parenchymal infiltrates similar to the prior exam. The above report was generated using voice recognition software. It may contain grammatical, syntax or spelling errors. Electronically signed by: Harvey Blevins M.D. 06/29/2017 9:50 PM Dictated Date/Time: 06/29/2017 9:49 PM
[2017-06-29 21:56] LABS: ALKALINE PHOSPHATASE 336 U/L (45-117); BETA-HYDROXYBUTYRATE 0.52 mg/dL (0.2-2.81); CKMB/CK RATIO 2.7 (0-3.0)
--- NOTE | 2017-06-29 22:11 | EMERGENCY ROOM VISIT NOTE ---
History Report prepared by Tom: Eugenie Browning Under the Supervision of: Susi DillO. First contact with patient: 21:56 Chief Complaint: CHEST PAIN Stated Complaint: CHEST PAIN, SOB Nursing Triage Summary: Pt arrived via [facility] from home residence where she lives with her boyfriend. Pt reports that she was napping laying flat and awoke at 1930 with severe Chest pain. Pain located in center of chest, no radiation, no SOB, no diaphoresis or nausea. Pt reports she was having increased difficulty ambulating. EMS gave pt 324 ASA and chest pain now a 2/10. pt wears 4L oxygen at all times. Pt is a current every day smoker. Recent fall and ER visit. History of Present Illness The patient is a 56 year old female who presents to the Emergency Room with complaints of persistent central chest pain that began this evening. She currently rates her discomfort as a 2/10 in severity. The patient states that she was sitting eating dinner when her pain began. She states that she was given 325 mg of aspirin en-route to the emergency department. The patient states that she is still experiencing slight pain. She additionally reports abdominal pain. The patient reports a history of previous heart attack three years ago. Nursing staff reports that the patient is a smoker. The patient denies following with cardiology. She reports a history of a cholecystectomy, tonsillectomy, and a hemorrhoidectomy. Source of History: patient Onset: this evening Position: chest (central) Symptom Intensity: 2/10 Timing: other (persistent) Associated Symptoms: + abdominal pain Review of Systems See HPI for pertinent positives & negatives. A total of 10 systems reviewed and were otherwise negative. Past Medical & Surgical Medical Problems: (1) Asthma (2) Benign hypertension (3) Chronic obstructive lung disease (4) Cirrhosis of liver (5) Coronary atherosclerosis of [place] coronary vessel (6) DM type 2 (diabetes mellitus, type 2) (7) Hyperlipidemia (8) Hypothyroidism (9) Morbid obesity with BMI of 40.0-44.9, adult (10) Peripheral vascular disease (11) Pulmonary emphysema (12) Respiratory failure, [id number] (13) TOBACCO USE DISORDER Surgical Problems: (1) History of hysterectomy (2) S/P cholecystectomy (3) S/P coronary artery stent placement (4) S/P tonsillectomy and adenoidectomy Family History FH: diabetes mellitus BROTHER Heart disease MOTHER BROTHER Lung disease FATHER (COPD) SISTER (COPD, asthma) Social History Smoking Status: Heavy Tobacco Smoker Alcohol Use: none Drug Use: none Marital Status: single Housing Status: lives with family Occupation Status: disabled Current/Historical Medications Scheduled Aspirin (Aspirin EC Low Dose), 81 MG PO DAILY Atorvastatin (Atorvastatin Calcium), 40 MG PO DAILY Cephalexin Monohydrate (Cephalexin), 500 MG PO QID Clopidogrel Bisulfate (Clopidogrel), 75 MG PO DAILY Furosemide (Lasix), 20 MG PO Q2D Gabapentin (Gabapentin), 100 MG PO TID Home O2 Therapy (Oxygen), 4 LITERS NA CONTINOUS Insulin Glargine (Lantus Solostar), 55 UNITS SC QAM Insulin Lispro (Human) (Humalog Kwikpen), 24 UNITS SC AC Ipratropium-Albuterol (Combivent Respimat), 1 PUFFS INH QID Lactobacillus Acidophilus (Floranex), 1 TAB PO TID Levothyroxine Sodium (Levothyroxine Sodium), 200 MCG PO DAILY Metoprolol Tartrate (Lopressor), 12.5 MG PO BID Pantoprazole Sodium (Protonix), 20 MG PO DAILY Prednisone Tab (Prednisone), 10 MG PO UD Sulfamethoxazole-Trimethoprim (Smz-Tmp Ds), 1 TAB PO Q12 Scheduled PRN Albuterol Sulf (Proventil 0.083% 2.5MG/3ML), 2.5 MG INH Q4H PRN for Shortness of Breath Albuterol Sulfate (Proair Respiclick), 2 PUFFS INH Q4H PRN for Shortness of Breath Allergies Coded Allergies: Penicillins (Verified Allergy, Intermediate, RASH, 06/29/17) Physical Exam Vital Signs Date Time Temp Pulse Resp B/P (MAP) Pulse Ox O2 Delivery O2 Flow Rate FiO2 06/29/17 23:01 128/67 06/29/17 22:41 58 29 91 06/29/17 22:37 59 23 141/60 91 Nasal Cannula 4.0 06/29/17 22:37 141/60 06/29/17 22:11 57 30 92 06/29/17 22:06 58 17 93 Nasal Cannula 3.0 06/29/17 21:36 58 27 93 Nasal Cannula 3.0 06/29/17 21:20 59 06/29/17 21:11 152/68 06/29/17 21:06 94 Nasal Cannula 4.0 06/29/17 21:06 94 Nasal Cannula 4.0 06/29/17 21:06 36.6 60 19 152/68 94 Nasal Cannula 4.0 06/29/17 21:06 94 Nasal Cannula 4.0 Physical Exam GENERAL: Patient is awake, alert, somewhat anxious appearing, but comfortable. EYES: The conjunctivae are clear. The pupils are round and reactive. EARS, NOSE, MOUTH AND THROAT: The nose is without any evidence of any deformity. Mucous membranes are moist tongue is midline NECK: The neck is nontender and supple. RESPIRATORY: Diminished lung sounds throughout. Scattered expiratory wheezes in all lung linares. No tachypnea or conversational dyspnea. CARDIOVASCULAR: Regular rate and rhythm noted there no murmurs rubs or gallops normal S1 normal S2 GASTROINTESTINAL: The abdomen is soft. Bowel sounds are present in all quadrants. Abdomen is nontender MUSCULOSKELETAL/EXTREMITIES: There is no evidence of gross deformity full range of motion is noted in the hips and shoulders SKIN: Pedal edema bilaterally. NEUROLOGIC: Patient is awake alert and oriented x3. Medical Decision & Procedures ER Provider Diagnostic Interpretation: X-ray results as stated below per interpretation by me and the radiologist. CHEST ONE VIEW PORTABLE CLINICAL HISTORY: cp dyspnea COMPARISON STUDY: 06/21/2017 mild stable cardiomegaly. FINDINGS: Mild stable cardia megaly. Mild bibasilar parenchymal infiltrative change. Upper lungs are considered clear. IMPRESSION: Mild bibasilar parenchymal infiltrates similar to the prior exam. The above report was generated using voice recognition software. It may contain grammatical, syntax or spelling errors. Electronically signed by: Harvey Blevins M.D. 06/29/2017 9:50 PM Dictated Date/Time: 06/29/2017 9:49 PM Laboratory Results 06/29/17 21:06 06/29/17 21:06 Test 06/29/17 21:06 06/29/17 22:30 Red Blood Count 4.52 M/uL (4.2-5.4) Mean Corpuscular Volume 101.8 fL (80-100) Mean Corpuscular Hemoglobin 32.5 pg (25-34) Mean Corpuscular Hemoglobin Concent 32.0 g/dl (32-36) RDW Standard Deviation 57.3 fL (36.4-46.3) RDW Coefficient of Variation 15.2 % (11.5-14.5) Mean Platelet Volume 9.9 fL (7.4-10.4) Anion Gap 5.0 mmol/L (3-11) Est Creatinine Clear Calc Drug Dose 98.8 ml/min Estimated GFR () 92.1 Estimated GFR (Non- 79.4 BUN/Creatinine Ratio 19.1 (10-20) Calcium Level 9.1 mg/dl (8.5-10.1) Magnesium Level 2.0 mg/dl (1.8-2.4) Total Bilirubin 0.3 mg/dl (0.2-1) Aspartate Amino Transf (AST/SGOT) 98 U/L (15-37) Alanine Aminotransferase (ALT/SGPT) 110 U/L (12-78) Alkaline Phosphatase 336 U/L (45-117) Total Creatine Kinase 67 U/L (26-192) Creatine Kinase MB 1.8 ng/ml (0.5-3.6) Creatine Kinase MB Ratio 2.7 (0-3.0) Troponin I < 0.015 ng/ml (0-0.045) Total Protein 7.1 gm/dl (6.4-8.2) Albumin 2.4 gm/dl (3.4-5.0) Globulin 4.7 gm/dl (2.5-4.0) Albumin/Globulin Ratio 0.5 (0.9-2) Lipase 207 U/L (73-393) Beta-Hydroxybutyric Acid 0.52 mg/dL (0.2-2.81) Prothrombin Time 9.7 SECONDS (9.0-12.0) Prothromb Time International Ratio 0.9 (0.9-1.1) Activated Partial Thromboplast Time 26.4 SECONDS (21.0-31.0) Partial Thromboplastin Ratio 1.0 Laboratory results per my review. Medications Administered Medications (Trade) Dose Ordered Sig/Abdi Route Start Time Stop Time Status Last Admin Dose Admin Al Hydroxide/Mg Hydroxide (Maalox Susp) 30 ml NOW STAT PO 06/29/17 22:15 06/29/17 22:16 DC 06/29/17 22:21 30 ML Pantoprazole Sodium (Protonix Tab) 40 mg NOW STAT PO 06/29/17 22:15 06/29/17 22:16 DC 06/29/17 22:21 40 MG Nitroglycerin (Nitrostat Tab) 0.4 mg NOW STAT SL 06/29/17 22:38 06/29/17 22:39 DC 06/29/17 23:08 0.4 MG ECG Indication: chest pain Rate (beats per minute): 61 Rhythm: normal sinus Findings: no ectopy, other (no acute ST segement abnormalities) Comparison ECG Date: 06/21/17 Change: no significant change ED Course 2204: The patient was evaluated in room B5. A complete history and physical examination were performed. I discussed the exam findings with her and I discussed the treatment plan. She verbalized complete understanding and agreement. She is going to be evaluated for further treatment. 2213: I discussed the patients case with Harshad Warren. He is going to evaluate the patient for further treatment. 2214: Ordered Protonix Tab 40 mg PO, Maalox Susp 30 ml PO. Medical Decision Differential diagnosis: Etiologies such as cardiac ischemia, aortic dissection, pulmonary embolism, pneumonia, pneumothorax, musculoskeletal, infections, pericarditis, myocarditis , esophageal rupture, gastrointestinal, as well as others were entertained. Nursing notes reviewed. The patient is a 56-year-old female who presented to the emergency department for an evaluation of chest pain. The patient states that she has a history of coronary artery disease and her pain feels similar to previous episodes of cardiac related chest pain. The patient did not have any acute changes on her EKG. Her cardiac biomarkers are not elevated. I discussed the patient's laboratory radiographic studies with her. Given her past medical history and risk factors I discussed her case with the on-call [facility] hospitalist. They' ve agreed to evaluate patient in the emergency department for further management and disposition. I discussed the limitations of the emergency department for cardiac workup in the emergency Department with her. Medication Reconcilliation Current Medication List: was personally reviewed by me Blood Pressure Screening Patient's blood pressure: Elevated blood pressure Blood pressure disposition: Elevated BP felt to be situational, Did not require urgent referral Consults Time Called: 2211 Consulting Physician: Harshad Warren Returned Call: 2213 I discussed the patients case with Harshad Warren. He is going to evaluate the patient for further treatment. Impression Primary Impression: Substernal chest pain Additional Impression: Abnormal results of liver function studies Scribe Attestation The scribe's documentation has been prepared under my direction and personally reviewed by me in its entirety. I confirm that the note above accurately reflects all work, treatment, procedures, and medical decision making performed by me. Departure Information Dispostion Being Evaluated By Hospitalist Referrals Ren Marroquin M.D. (PCP) Problem Qualifiers
[2017-06-29] MEDS ORDERED: ALUMINUM/MAGNESIUM SUSP 30 ML UDC PO STA (22:15)
[2017-06-29] MEDS ORDERED: PANTOprazole SOD 40 MG TAB PO STA (22:15)
[2017-06-29] MEDS ORDERED: NITROGLYCERIN 0.4 MG SL PER TAB CHARGE SL STA (22:38)
[2017-06-29 23:02] LABS: INR 0.9 (0.9-1.1); PROTHROMBIN TIME (PATIENT) 9.7 SECONDS (9.0-12.0)
[2017-06-29] MEDS ORDERED: GLUCOSE 40% GEL 15 GM TUBE PO PRN (23:45)
[2017-06-29] MEDS ORDERED: NITROGLYCERIN 0.4 MG SL PER TAB CHARGE SL PRN (23:45)
[2017-06-29] MEDS ORDERED: GLUCOSE 10 TABS/TUBE PO PRN (23:45)
[2017-06-29] MEDS ORDERED: IV FLUIDS COMPLETED PRN (23:45)
[2017-06-29] MEDS ORDERED: ALBUT/IPRATROP 3MG/0.5MG NEB 3 ML VIAL INH PRN (23:45)
[2017-06-29] MEDS ORDERED: DEXTROSE 50% 50 ML SYR IV PRN (23:45)
[2017-06-29] MEDS ORDERED: GLUCAGON FOR INJ 1 MG VIAL SQ PRN (23:45)
[2017-06-29] MEDS ORDERED: ONDANSETRON INJ 2 MG/ML 2 ML VIAL IV PRN (23:45)
[2017-06-29] MEDS ORDERED: ACETAMINOPHEN 325 MG TAB PO PRN (23:45)
[2017-06-29] MEDS ORDERED: MoRPHine SULFATE 4 MG/ML 1 ML CARP\\VIAL IV PRN (23:45)
[2017-06-30] VITALS (10 sets, daily range): BP systolic 102–132; BP diastolic 48–74; PULSE 51–57; TEMP 36.4–37.1; O2SAT 90–94; Ht 157.5 cm; Wt 129.4 kg
[2017-06-30] MEDS ORDERED: ALBUT/IPRATROP 3MG/0.5MG NEB 3 ML VIAL INH STA (00:02)
[2017-06-30] MEDS ORDERED: INSULIN GLARGINE SOLOSTAR 100 UNITS/ML 3 ML PEN SC ONE (00:15)
[2017-06-30] MEDS ORDERED: INSULIN ASPART 100 UNITS/ML 3 ML PEN SC ONE (00:15)
[2017-06-30] MEDS ORDERED: SODIUM CHLORIDE 0.9% 1000ML 1,000 ML IV SCH (00:30)
[2017-06-30] MEDS ORDERED: TRAMADOL HCL 50 MG TAB PO PRN (00:45)
[2017-06-30] MEDS ORDERED: MICONAZOLE NITRATE POWDER 43 GM EXT PRN (04:45)
--- NOTE | 2017-06-30 05:44 | HISTORY & PHYSICAL EXAMINATION ---
DATE OF ADMISSION: 06/29/2017 PRIMARY CARE DOCTOR: Dr. Marroquin. CHIEF COMPLAINT: Chest pain. HISTORY OF PRESENT ILLNESS: History obtained from patient and records. Medical history significant for chronic respiratory failure secondary to COPD on home O2, ongoing tobacco abuse, CAD sp stenting, hypertension, hyperlipidemia, history of MRSA, DM2 insulin requiring, PVD as per records, mood disorder. History of cirrhosis secondary to autoimmune hepatitis per records. Recent confinement last May 2017 for acute on chronic hypoxemic, hypercapnic resp failure secondary to COPD exacerbation and abdominal wall cellulitis/wound. Wound cultures grew MRSA and Proteus. A 2D echo done during the confinement showed LVEF of 60-65%, diastolic dysfunction, poorly visualized valvular structures. Patient discharged to home on Bactrim, doxycycline, Combivent and prednisone taper. Plan for the patient to be admitted to [place] for rehabilitation from home. Last night, the patient noted pleuritic substernal pain going to shoulder w/ shortness of breath similar to heart attack in the past. No unusual cough symptoms. Relief with nitroglycerin. Px compliant with home meds. MEDICAL HISTORY: As above. 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 Cardiac stent placed about 9 years ago. SURGERIES: She has had tonsillectomy and adenoidectomy, toe amputation, hysterectomy, cholecystectomy. HOME MEDICATIONS: Albuterol, ProAir, aspirin, atorvastatin, Plavix, gabapentin, Lantus, levothyroxine, Lopressor, Protonix. ALLERGIES: PENICILLIN. FAMILY HISTORY: Heart disease. PERSONAL SOCIAL HISTORY: A pack daily. No chronic intake of alcoholic beverages. Disabled. REVIEW OF SYSTEMS: As per HPI, all other ROS negative. PHYSICAL EXAMINATION: VITAL SIGNS: Blood pressure was noted to be 141/60, pulse rate 89, RR 19, temperature 36.6, O2 sats 94 on 4 liters. GENERAL: Noted to be obese, no respiratory distress, looks older for stated age. SKIN: Normal color. HEENT: [place] palpebral conjunctivae. Dry mucosa. Nasal cannula in place NECK: Short neck. LUNGS: Decreased breath sounds, occ wheeze. HEART: Bradycardic. ABDOMEN: Soft and distended. EXTREMITIES: Minimal LE edema, no tenderness. NEUROLOGIC: No gross focality. LABS: Hemoglobin was noted to be 14.7, hematocrit 46, white cell count 11.3, platelets 281. Sodium 140, potassium 4.3, chloride 104, CO2 of 24, BUN 16, creatinine 0.8, glucose 312. troponin 0 Hemoglobin A1c from May 2017 was 9. Chest x-ray showed atelectasis, mild bibasilar parenchymal infiltrate. Troponin normal. EKG as per my interpretation : normal sinus rhythm, no ischemia ASSESSMENT: 1. Chest pain possible unstable angina history of coronary artery disease status post-stenting. 2. Hypertension, slightly elevated. 3. Hyperlipidemia, statin therapy. 4. DM2, insulin requiring, suboptimal control as of recent inpatient hemoglobin A1c 5. Recent admission for COPD exacerbation, abd wall cellulitis/wound improved symptoms on prednisone, Bactrim and cephalexin course 6. chronic respiratory failure, ongoing tobacco abuse. Symptoms at baseline as per patient 7. Cirrhosis secondary to autoimmune hepatitis. No overt decompensation. PLAN: Observation PCU. Continue aspirin, beta phuong, statin. Dobutamine stress echo if morning troponin is normal May need Cardiology eval if morning troponin elevated. Social service re: discharge planning, possible discharge to [facility] once cardiac workup completed Basal insulin, ISS BG goal 140-180. carb count coverage indicated for suboptimal blood sugar control. Nicotine patch. DVT prophylaxis with Lovenox subQ. CODE STATUS Level 3. (Okay with CPR. No intubation.) [facility]
[2017-06-30 05:54] LABS: BASO % 0.2 %; BASO ABS # 0.02 K/uL (0-0.2); COMPLETE YES; EOS % 2.2 %; HEMATOCRIT 44.7 % (37-47); IG% 0.8 %; LYMPH % 24.1 %; LYMPH ABS # 2.49 K/uL (1.2-3.4); MEAN CELL VOLUME 102.8 fL (80-100); MEAN CORPUSCULAR HEMOGLOBIN 31.7 pg (25-34); MEAN CORPUSCULAR HGB CONC 30.9 g/dl (32-36); MEAN PLATELET VOLUME 9.1 fL (7.4-10.4); MONO % 6.1 %; NEUT % 66.6 %; PLATELET COUNT 232 K/uL (130-400); RED BLOOD COUNT 4.35 M/uL (4.2-5.4); WHITE BLOOD COUNT 10.32 K/uL (4.8-10.8)
[2017-06-30] MEDS ORDERED: INSULIN ASPART 100 UNITS/ML 3 ML PEN SC SCH ×3 (06:00→11:00)
[2017-06-30 06:35] LABS: ALT/SGPT 124 U/L (12-78); BLOOD UREA NITROGEN 11 mg/dl (7-18); BUN/CREATININE RATIO 19.5 (10-20); CALCIUM 8.9 mg/dl (8.5-10.1); CARBON DIOXIDE 37 mmol/L (21-32); CHLORIDE 98 mmol/L (98-107); CHOLESTEROL 172 mg/dl (0-200); CREATININE 0.57 mg/dl (0.60-1.20); GLUCOSE 184 mg/dl (70-99); POTASSIUM 4.2 mmol/L (3.5-5.1); SODIUM 136 mmol/L (136-145); TRIGLYCERIDES 225 mg/dl (0-150); VERY LOW DENSITY LIPOPROT CALC 45 mg/dl
[2017-06-30 06:39] LABS: ALB/GLOB RATIO 0.6 (0.9-2); ALKALINE PHOSPHATASE 290 U/L (45-117); AST/SGOT 113 U/L (15-37); CHOLESTEROL/HDL RATIO 4.2; HDL CHOLESTEROL 41 mg/dl; LDL CHOLESTEROL CALCULATED 86 mg/dl
[2017-06-30] MEDS: CEPHALEXIN MONOHYDRATE 500 MG CAP PO SCH ×2 (08:35→12:33)
[2017-06-30] MEDS: GABAPENTIN 100 MG CAP PO SCH ×2 (08:37→14:40)
[2017-06-30] MEDS ORDERED: ATROPINE SULFATE 0.1 MG/ML 5ML SYR ONE (08:55)
[2017-06-30] MEDS ORDERED: DOBUTamine HCL 12.5 MG/ML 20 ML VIAL ONE (08:55)
[2017-06-30] MEDS ORDERED: METOPROLOL TARTRATE 1 MG/ML VIAL ONE (08:56)
[2017-06-30] MEDS ORDERED: ENOXAPARIN 40 MG/0.4 ML SYR SC SCH (09:00)
[2017-06-30] MEDS ORDERED: ATORVASTATIN 40 MG TAB PO SCH (09:00)
[2017-06-30] MEDS ORDERED: PANTOprazole SOD 40 MG TAB PO SCH (09:00)
[2017-06-30] MEDS ORDERED: ASPIRIN 81 MG ECTAB PO SCH (09:00)
[2017-06-30] MEDS ORDERED: INSULIN GLARGINE SOLOSTAR 100 UNITS/ML 3 ML PEN SC SCH (09:00)
[2017-06-30] MEDS ORDERED: CLOPIDOGREL BISULFATE 75 MG TAB PO SCH (09:00)
[2017-06-30] MEDS ORDERED: SULFAMETHOXAZOLE/TRIMETHOPRIM DS 800/160MG TAB PO SCH (09:00)
[2017-06-30] MEDS ORDERED: NICOTINE 21 MG/24 HR TDSY TD SCH (09:00)
[2017-06-30] MEDS ORDERED: METOPROLOL TARTRATE 25 MG TAB PO SCH (09:00)
--- NOTE | 2017-06-30 09:47 | Progress Note ---
Internal Med Progress Note Date of Service: Jun 30, 2017. Provider Documentation: SUBJECTIVE: Seen and examined at bedside. States chest pain resolved Denies SOB, dizziness, palpitations. Has intermittent dry cough. Planned for stress test today. OBJECTIVE: Vital Signs-as noted below Physical Exam: General Appearance:Obese, no apparent distress Head: normocephalic, Atraumatic Eyes: normal inspection, EOMI, PERRL Neck: supple, Trachea midline Respiratory/Chest: Decreased breath sounds, CTA Cardiovascular: S1, S2, No murmur Abdomen/GI:Soft, Non tender, distended, Bowel sounds present, mild erythema noted Extremities/Musculoskelatal:normal inspection, trace pedal edema Neurologic/Psych:grossly no focal neurological deficits Skin: normal color, warm, sacral ulcer in bandage Lab data as noted below. ASSESSMENT & PLAN: Chest Pain: R/O ACS Reports retrosternal non radiating sharp chest pain, increased with breathing which lasted for about 2 minutes per patient Risk factors: H/O CAD, HTN, DM II, Obesity Troponin X 2:Negative EKG:no ischemic changes Last EF:60-65% CXR: Mild bibasilar parenchymal infiltrates similar to the prior exam continue Aspirin, Plavix, beta phuong, statins On chronic Oxygen 4l at baseline Dobutamine stress test:Negative COPD Recent hospitalization for COPD exacerbation 1 week ago Continue prednisone taper Continue home inhalers on oxygen 4l NC at baseline Complete the antibiotic course as prescribed during prior admission Needs outpatient Sleep Study to r/o Obstructive Sleep Apnea Abdominal wall wound infection/cellulitis Complete the Bactrim and Keflex course as prescribed during prior admission Needs follow up with wound clinic upon discharge wound care consulted DM II Continue ISS, Lantus Monitor BS levels HTN continue Metoprolol CAD s/p Stent continue Aspirin, Plavix, Statin, Metoprolol H/O Cirrhosis secondary to autoimmune hepatitis Follow up as outpatient DVT Px: Lovenox CODE STATUS DNI Disposition: Discharge to SNF today Follow up with on 07/04/17 at 11:05AM Complete the prednisone and antibiotic course as prescribed (Prednisone 10mg for 2 days and 5mg for 2 days and stop. Antibiotics to complete for 7 more days) Seek immediate medical attention if your symptoms reoccur or worsen Get outpatient Sleep Study to r/o Obstructive Sleep Apnea as advised Follow up with wound clinic upon discharge Vital Signs: Date Time Temp Pulse Resp B/P (MAP) Pulse Ox O2 Delivery O2 Flow Rate FiO2 06/30/17 12:27 36.9 51 24 109/62 (78) 94 Nasal Cannula 4.0 06/30/17 12:00 94 Nasal Cannula 4.0 06/30/17 08:27 37.1 57 25 102/51 (68) 91 Nasal Cannula 4.0 06/30/17 08:00 94 Nasal Cannula 4.0 06/30/17 04:00 36.4 52 18 102/48 (66) 94 Nasal Cannula 4.0 06/30/17 04:00 Nasal Cannula 4.0 06/30/17 00:38 55 18 93 Nasal Cannula 4.0 06/30/17 00:15 36.4 55 19 123/63 90 Nasal Cannula 4.0 06/29/17 23:36 55 26 91 Nasal Cannula 4.0 06/29/17 23:32 156/74 06/29/17 23:06 55 25 91 Nasal Cannula 4.0 06/29/17 23:01 128/67 06/29/17 22:41 58 29 91 06/29/17 22:37 59 23 141/60 91 Nasal Cannula 4.0 06/29/17 22:37 141/60 06/29/17 22:11 57 30 92 06/29/17 22:06 58 17 93 Nasal Cannula 3.0 06/29/17 21:36 58 27 93 Nasal Cannula 3.0 06/29/17 21:20 59 06/29/17 21:11 152/68 06/29/17 21:06 94 Nasal Cannula 4.0 06/29/17 21:06 94 Nasal Cannula 4.0 06/29/17 21:06 36.6 60 19 152/68 94 Nasal Cannula 4.0 06/29/17 21:06 94 Nasal Cannula 4.0 Lab Results: Results Past 24 Hours Test 06/29/17 21:06 06/29/17 22:30 06/30/17 00:23 06/30/17 05:17 Range/Units White Blood Count 11.31 10.32 4.8-10.8 K/uL Red Blood Count 4.52 4.35 4.2-5.4 M/uL Hemoglobin 14.7 13.8 12.0-16.0 g/dL Hematocrit 46.0 44.7 37-47 % Mean Corpuscular Volume 101.8 102.8 80-100 fL Mean Corpuscular Hemoglobin 32.5 31.7 25-34 pg Mean Corpuscular Hemoglobin Concent 32.0 30.9 32-36 g/dl RDW Standard Deviation 57.3 57.6 36.4-46.3 fL RDW Coefficient of Variation 15.2 15.2 11.5-14.5 % Platelet Count 281 232 130-400 K/uL Mean Platelet Volume 9.9 9.1 7.4-10.4 fL Sodium Level 133 136 136-145 mmol/L Potassium Level 4.3 4.2 3.5-5.1 mmol/L Chloride Level 94 98 98-107 mmol/L Carbon Dioxide Level 34 37 21-32 mmol/L Anion Gap 5.0 1.0 3-11 mmol/L Blood Urea Nitrogen 16 11 7-18 mg/dl Creatinine 0.82 0.57 0.60-1.20 mg/dl Est Creatinine Clear Calc Drug Dose 98.8 140.7 ml/min Estimated GFR () 92.1 119.3 Estimated GFR (Non- 79.4 102.9 BUN/Creatinine Ratio 19.1 19.5 10-20 Random Glucose 312 184 70-99 mg/dl Calcium Level 9.1 8.9 8.5-10.1 mg/dl Magnesium Level 2.0 1.8-2.4 mg/dl Total Bilirubin 0.3 0.3 0.2-1 mg/dl Aspartate Amino Transf (AST/SGOT) 98 113 15-37 U/L Alanine Aminotransferase (ALT/SGPT) 110 124 12-78 U/L Alkaline Phosphatase 336 290 45-117 U/L Total Creatine Kinase 67 26-192 U/L Creatine Kinase MB 1.8 0.5-3.6 ng/ml Creatine Kinase MB Ratio 2.7 0-3.0 Troponin I < 0.015 < 0.015 0-0.045 ng/ml Total Protein 7.1 6.3 6.4-8.2 gm/dl Albumin 2.4 2.3 3.4-5.0 gm/dl Globulin 4.7 4.0 2.5-4.0 gm/dl Albumin/Globulin Ratio 0.5 0.6 0.9-2 Lipase 207 73-393 U/L Beta-Hydroxybutyric Acid 0.52 0.2-2.81 mg/dL Prothrombin Time 9.7 9.0-12.0 SECONDS Prothromb Time International Ratio 0.9 0.9-1.1 Activated Partial Thromboplast Time 26.4 21.0-31.0 SECONDS Partial Thromboplastin Ratio 1.0 Bedside Glucose 223 70-90 mg/dl Neutrophils (%) (Auto) 66.6 % Lymphocytes (%) (Auto) 24.1 % Monocytes (%) (Auto) 6.1 % Eosinophils (%) (Auto) 2.2 % Basophils (%) (Auto) 0.2 % Neutrophils # (Auto) 6.87 1.4-6.5 K/uL Lymphocytes # (Auto) 2.49 1.2-3.4 K/uL Monocytes # (Auto) 0.63 0.11-0.59 K/uL Eosinophils # (Auto) 0.23 0-0.5 K/uL Basophils # (Auto) 0.02 0-0.2 K/uL Immature Granulocyte % (Auto) 0.8 % Immature Granulocyte # (Auto) 0.08 0.00-0.02 K/uL Triglycerides Level 225 0-150 mg/dl Cholesterol Level 172 0-200 mg/dl HDL Cholesterol 41 mg/dl LDL Cholesterol, Calculated 86 mg/dl VLDL Cholesterol, Calculated 45 mg/dl Cholesterol/HDL Ratio 4.2 Test 06/30/17 06:05 06/30/17 11:22 Range/Units Bedside Glucose 158 164 70-90 mg/dl
[2017-06-30] MEDS ORDERED: PERFLUTREN LIPID MICROSPHERE (DEFINITY) IV ONE (10:44)
[2017-06-30] MEDS: IPRATROPIUM BROMIDE/ALBUTEROL respimat INH INH SCH ×2 (10:51→12:33)
[2017-06-30] MEDS ORDERED: NURSING VERBAL MED ORDER ONE (11:00)
--- NOTE | 2017-06-30 13:36 | DOBUTAMINE ECHO ---
*NOTICE TO RECEIVING CONSTITUTION PARTY AGENCY This information is strictly Confidential and protected under [place] law. [place] law prohibits you from making any further disclosure of this information unless further disclosure is expressly permitted by the written consent of the person to whom it pertains or is authorized by law. A general authorization for the release of medical or other information is not sufficient for this purpose. Hospital accepts no responsibility if the information is made available to any other person, INCLUDING THE PATIENT. Interpretation Summary * Name: JENNIFER LEVIN Study Date: 06/30/2017 08:45 AM BP: 101/41 mmHg * Patient Location: .2E\S\E212\S\1 HR: 55 * : 1960 (M/d/yyyy) Gender: Female Height: 62 in * Age: 56 yrs Ethnicity: CA Weight: 285 lb * Ordering Physician: Ap Valverde * Performed By: Arti Milton * * Reason For Study: CHEST PAIN * BSA: 2.2 m2 * -- Conclusions -- * Nonischemic dobutamine stress echocardiogram. * No arrhythmias. * Normal HR and BP response to dobutamine infusion. Procedure Details * DOBUTAMINE ECHO, CPT#32194 * The study was technically difficult with many images being suboptimal in quality. * A contrast injection of Definity was performed to improve assessment of LV function. * Contrast was injected into an intravenous site in the left arm. * One vial of Definity ultrasound contrast was diluted in normal saline to a total volume of 10 ml. A total of '8' ml of solution was administered during imaging. * Lot # [id number] of Definity utilized for procedure. * Expiration date 07/15. * The attending nurse who injected the contrast agent was KEENAN PEREZ RN. Stress Parameters * The stress portion of this study was personally supervised by the undersigned interpreting physician. * Rest heart rate was '55' BPM. * Rest blood pressure was '101/41' * Maximum heart rate achieved was 139 bpm. * Maximum heart rate was 85 % of maximum age-predicted heart rate. * Maximum blood pressure was '156/56' * Total exercise time was '10:01' * Maximum Dobutamine infusion rate was '50' mcg/kg/min. * A total of 1.5 mg of intravenous Atropine was used to supplement Dobutamine for heart rate response. * Dobutamine infusion was terminated due to achieving target heart rate * A total of 10 mg of IV Metoprolol was administered to reverse Dobutamine-induced tachycardia. * The patient exhibited chest pain during the drug infusion. * Normal blood pressure response to exercise. * Target heart rate achieved.
--- NOTE | 2017-06-30 13:36 | Discharge Instructions ---
Discharge Instructions Date of Service Jun 30, 2017. Admission Reason for Admission: Substernal Chest Pain Discharge Discharge Diagnosis / Problem: Chest pain R/O ACS Discharge Goals Goal(s): Decrease discomfort, Improve function Activity Recommendations Activity Limitations: resume your previous activity Exercise/Sports Limitations: as tolerated . Instructions / Follow-Up Instructions / Follow-Up Follow up with on 07/04/17 at 11:05AM Complete the prednisone and antibiotic course as prescribed (Prednisone 10mg for 2 days and 5mg for 2 days and stop. Antibiotics to complete for 7 more days) Seek immediate medical attention if your symptoms reoccur or worsen Get outpatient Sleep Study to r/o Obstructive Sleep Apnea as advised Follow up with wound clinic upon discharge Current Hospital Diet Patient's current hospital diet: Diabetes Type 2 Diet, AHA Diet (Heart Healthy) Discharge Diet Recommended Diet: AHA Diet (Heart Healthy), Diabetes Type 2 Diet Pending Studies Studies pending at discharge: no Laboratory Results Hemoglobin A1c Test 06/20/17 21:00 Range/Units Estimated Average Glucose 212 mg/dl Hemoglobin A1c 9.0 H 4.5-5.6 % Lipid Panel Test 06/30/17 05:17 Range/Units Triglycerides Level 225 H 0-150 mg/dl Cholesterol Level 172 0-200 mg/dl HDL Cholesterol 41 mg/dl Cholesterol/HDL Ratio 4.2 LDL Cholesterol, Calculated 86 mg/dl Medical Emergencies . Who to Call and When: Medical Emergencies: If at any time you feel your situation is an emergency, please call 911 immediately. . Non-Emergent Contact Non-Emergency issues call your: Primary Care Provider Call Non-Emergent contact if: you have a fever, your pain is not controlled, your pain is worsening, your pain is unusual for you, you have any medication questions . . "Provider Documentation" section prepared by Carmelo Grijalva. . VTE Core Measure Inpt VTE Proph given/why not?: Enoxaparin (Lovenox)SQ
--- NOTE | 2017-06-30 13:56 | Discharge Summary ---
Discharge Summary Date of Service Jun 30, 2017. Discharge Summary Admission Date: Jun 29, 2017 at 23:26 Discharge Date: Jun 30, 2017 Discharge Disposition: [facility] facility Principal Diagnosis: Chest pain Procedures: CXR: : Mild bibasilar parenchymal infiltrates similar to the prior exam Dobutamine stress test: * Nonischemic dobutamine stress echocardiogram. * No arrhythmias. * Normal HR and BP response to dobutamine infusion. Consultations: None Pending Studies/Follow-Up: Follow up with on 07/04/17 at 11:05AM Complete the prednisone and antibiotic course as prescribed (Prednisone 10mg for 2 days and 5mg for 2 days and stop. Antibiotics to complete for 7 more days) Seek immediate medical attention if your symptoms reoccur or worsen Get outpatient Sleep Study to r/o Obstructive Sleep Apnea as advised Follow up with wound clinic upon discharge Medication Reconciliation Continued Medications: Albuterol Sulf (Proventil 0.083% 2.5MG/3ML) 2.5 Mg/3 Ml Nebu 2.5 MG INH Q4H PRN for Shortness of Breath, EA Albuterol Sulfate (Proair Respiclick) 108 Mcg/Act Aer 2 PUFFS INH Q4H PRN for Shortness of Breath Aspirin (Aspirin EC Low Dose) 81 Mg Ectab 81 MG PO DAILY Atorvastatin (Atorvastatin Calcium) 40 Mg Tab 40 MG PO DAILY Cephalexin Monohydrate (Cephalexin) 500 Mg Cap 500 MG PO QID for 14 Days, #56 CAP 0 Refills Clopidogrel Bisulfate (Clopidogrel) 75 Mg Tab 75 MG PO DAILY Furosemide (Lasix) 20 Mg Tab 20 MG PO Q2D for 30 Days, #15 TAB 1 Refill Gabapentin (Gabapentin) 100 Mg Cap 100 MG PO TID Home O2 Therapy (Oxygen) Gas 4 LITERS NA CONTINOUS for 30 Days Insulin Glargine (Lantus Solostar) 100 Unit/Ml Inj 55 UNITS SC QAM Insulin Lispro (Human) (Humalog Kwikpen) 100 Unit/Ml Inj 24 UNITS SC AC Ipratropium-Albuterol (Combivent Respimat) 1 Aer Aer 1 PUFFS INH QID for 30 Days, #1 INH 2 Refills Lactobacillus Acidophilus (Floranex) 1 Tab Tab 1 TAB PO TID, #45 TABS 1 Refill Levothyroxine Sodium (Levothyroxine Sodium) 200 Mcg Tab 200 MCG PO DAILY Metoprolol Tartrate (Lopressor) 25 Mg Tab 12.5 MG PO BID Pantoprazole Sodium (Protonix) 20 Mg Tab 20 MG PO DAILY Prednisone Tab (Prednisone) 10 Mg Tab 10 MG PO UD, #15 TAB take 4 tabs po daily x 2 days, then take 2 tabs po daily x 2 days, then take 1 tab po daily x 2 days, then take 1/2 tab po daily x 2 days, then STOp Sulfamethoxazole-Trimethoprim (Smz-Tmp Ds) 1 Tab Tab 1 TAB PO Q12 for 14 Days, #28 TAB 0 Refills Admission Information HPI (per Admitting provider): CHIEF COMPLAINT: Chest pain. HISTORY OF PRESENT ILLNESS: History obtained from patient and records. Medical history significant for chronic respiratory failure secondary to COPD on home O2, ongoing tobacco abuse, CAD sp stenting, hypertension, hyperlipidemia, history of MRSA, DM2 insulin requiring, PVD as per records, mood disorder. History of cirrhosis secondary to autoimmune hepatitis per records. Recent confinement last May 2017 for acute on chronic hypoxemic, hypercapnic resp failure secondary to COPD exacerbation and abdominal wall cellulitis/wound. Wound cultures grew MRSA and Proteus. A 2D echo done during the confinement showed LVEF of 60-65%, diastolic dysfunction, poorly visualized valvular structures. Patient discharged to home on Bactrim, doxycycline, Combivent and prednisone taper. Plan for the patient to be admitted to [place] for rehabilitation from home. Last night, the patient noted pleuritic substernal pain going to shoulder w/ shortness of breath similar to heart attack in the past. No unusual cough symptoms. Relief with nitroglycerin. Px compliant with home meds. Physical Exam (per Admitting): PHYSICAL EXAMINATION: VITAL SIGNS: Blood pressure was noted to be 141/60, pulse rate 89, RR 19, temperature 36.6, O2 sats 94 on 4 liters. GENERAL: Noted to be obese, no respiratory distress, looks older for stated age. SKIN: Normal color. HEENT: [place] palpebral conjunctivae. Dry mucosa. Nasal cannula in place NECK: Short neck. LUNGS: Decreased breath sounds, occ wheeze. HEART: Bradycardic. ABDOMEN: Soft and distended. EXTREMITIES: Minimal LE edema, no tenderness. NEUROLOGIC: No gross focality. Hospital Course Chest Pain: R/O ACS Reports retrosternal non radiating sharp chest pain, increased with breathing which lasted for about 2 minutes per patient Risk factors: H/O CAD, HTN, DM II, Obesity Troponin X 2:Negative EKG:no ischemic changes Last EF:60-65% CXR: Mild bibasilar parenchymal infiltrates similar to the prior exam continue Aspirin, Plavix, beta phuong, statins On chronic Oxygen 4l at baseline Dobutamine stress test:Negative COPD Recent hospitalization for COPD exacerbation 1 week ago Continue prednisone taper Continue home inhalers on oxygen 4l NC at baseline Complete the antibiotic course as prescribed during prior admission Needs outpatient Sleep Study to r/o Obstructive Sleep Apnea Abdominal wall wound infection/cellulitis Complete the Bactrim and Keflex course as prescribed during prior admission Needs follow up with wound clinic upon discharge wound care consulted DM II Continue ISS, Lantus Monitor BS levels HTN continue Metoprolol CAD s/p Stent continue Aspirin, Plavix, Statin, Metoprolol H/O Cirrhosis secondary to autoimmune hepatitis Follow up as outpatient DVT Px: Lovenox CODE STATUS DNI Disposition: Discharge to SNF today Follow up with on 07/04/17 at 11:05AM Complete the prednisone and antibiotic course as prescribed (Prednisone 10mg for 2 days and 5mg for 2 days and stop. Antibiotics to complete for 7 more days) Seek immediate medical attention if your symptoms reoccur or worsen Get outpatient Sleep Study to r/o Obstructive Sleep Apnea as advised Follow up with wound clinic upon discharge Total time spent on discharge = 42 minutes This includes examination of the patient, discharge planning, medication reconciliation, and communication with other providers. Discharge Instructions Discharge Instructions Date of Service Jun 30, 2017. Admission Reason for Admission: Substernal Chest Pain Discharge Discharge Diagnosis / Problem: Chest pain R/O ACS Discharge Goals Goal(s): Decrease discomfort, Improve function Activity Recommendations Activity Limitations: resume your previous activity Exercise/Sports Limitations: as tolerated . Instructions / Follow-Up Instructions / Follow-Up Follow up with on 07/04/17 at 11:05AM Complete the prednisone and antibiotic course as prescribed (Prednisone 10mg for 2 days and 5mg for 2 days and stop. Antibiotics to complete for 7 more days) Seek immediate medical attention if your symptoms reoccur or worsen Get outpatient Sleep Study to r/o Obstructive Sleep Apnea as advised Follow up with wound clinic upon discharge Current Hospital Diet Patient's current hospital diet: Diabetes Type 2 Diet, AHA Diet (Heart Healthy) Discharge Diet Recommended Diet: AHA Diet (Heart Healthy), Diabetes Type 2 Diet Pending Studies Studies pending at discharge: no Laboratory Results Hemoglobin A1c Test 06/20/17 21:00 Range/Units Estimated Average Glucose 212 mg/dl Hemoglobin A1c 9.0 H 4.5-5.6 % Lipid Panel Test 06/30/17 05:17 Range/Units Triglycerides Level 225 H 0-150 mg/dl Cholesterol Level 172 0-200 mg/dl HDL Cholesterol 41 mg/dl Cholesterol/HDL Ratio 4.2 LDL Cholesterol, Calculated 86 mg/dl Medical Emergencies . Who to Call and When: Medical Emergencies: If at any time you feel your situation is an emergency, please call 911 immediately. . Non-Emergent Contact Non-Emergency issues call your: Primary Care Provider Call Non-Emergent contact if: you have a fever, your pain is not controlled, your pain is worsening, your pain is unusual for you, you have any medication questions . . "Provider Documentation" section prepared by Carmelo Grijalva. . VTE Core Measure Inpt VTE Proph given/why not?: Enoxaparin (Lovenox)SQ <Electronically signed by Carmelo Grijalva MD> Signed: 06/30/17 0945 Signed: The status of this report is Signed * If report status is Draft, the document has not been finalized by the responsible provider.
[2017-09-08] MEDS ORDERED: NICO21DI4 TD (13:27)
== END 2017-06-30 17:00 ==
LOC: EDBD 21:06 → C.EDB 21:07 → C.2E 23:26 → EDBEDREQ 23:28 → ENRESERV 23:34
PROVIDERS: ADMIT Internal Medicine; ATTEND Internal Medicine
DX: R07.2 Precordial pain (principal); I25.2 Old myocardial infarction; J45.909 Unspecified asthma, uncomplicated; J44.9 Chronic obstructive pulmonary disease, unspecified; K74.60 Unspecified cirrhosis of liver; I25.10 Atherosclerotic heart disease of native coronary artery without angina pectoris; E11.9 Type 2 diabetes mellitus without complications; E78.5 Hyperlipidemia, unspecified; E03.9 Hypothyroidism, unspecified; E66.01 Morbid (severe) obesity due to excess calories; Z68.41 Body mass index [BMI] 40.0-44.9, adult; I73.9 Peripheral vascular disease, unspecified; Z90.710 Acquired absence of both cervix and uterus; Z90.49 Acquired absence of other specified parts of digestive tract; Z95.818 Presence of other cardiac implants and grafts; Z90.89 Acquired absence of other organs; Z83.3 Family history of diabetes mellitus; Z82.49 Family history of ischemic heart disease and other diseases of the circulatory system; Z82.5 Family history of asthma and other chronic lower respiratory diseases; F17.200 Nicotine dependence, unspecified, uncomplicated; Z79.82 Long term (current) use of aspirin; Z99.81 Dependence on supplemental oxygen; Z89.429 Acquired absence of other toe(s), unspecified side; K75.4 Autoimmune hepatitis

== ENCOUNTER 2017-08-31 13:09 | Inpatient (IN) | payer OTHER ==
[~2017-08-31] VITALS: Ht 157.5 cm; Wt 140.0 kg
[2017-08-31] MEDS ORDERED: SODIUM CHLORIDE 0.9% 1000ML 1,000 ML IV STA (14:44)
[2017-08-31 15:15] LABS: BASO % 0.3 %; BASO ABS # 0.03 K/uL (0-0.2); COMPLETE YES; EOS % 1.7 %; HEMATOCRIT 44.8 % (37-47); IG% 0.8 %; LYMPH % 26.6 %; LYMPH ABS # 2.88 K/uL (1.2-3.4); MEAN CELL VOLUME 94.9 fL (80-100); MEAN CORPUSCULAR HEMOGLOBIN 31.4 pg (25-34); MEAN PLATELET VOLUME 9.2 fL (7.4-10.4); MONO % 4.3 %; NEUT % 66.3 %; PLATELET COUNT 219 K/uL (130-400); RED BLOOD COUNT 4.72 M/uL (4.2-5.4); WHITE BLOOD COUNT 10.83 K/uL (4.8-10.8)
--- NOTE | 2017-08-31 15:19 | DIAGNOSTIC IMAGING REPORT ---
SINGLE VIEW CHEST CLINICAL HISTORY: Change in metal status. Weakness. FINDINGS: An AP, portable, upright chest radiograph is compared to study dated 06/29/2017 and correlated with chest CT dated 06/20/2017. The examination is degraded by portable technique, large body habitus, and patient rotation. The heart is enlarged. The pulmonary vasculature is noncongested. There are patchy airspace opacities present at both lung bases. No large pleural effusion or pneumothorax is seen. The skeletal structures are osteopenic. The bony thorax is grossly intact. IMPRESSION: 1. Cardiomegaly without radiographic evidence of congestive failure. 2. There are patchy bibasilar airspace opacities. This could represent atelectasis versus an infectious/inflammatory pneumonitis. Clinical correlation will be required. Electronically signed by: Addison Connolly M.D. 08/31/2017 3:18 PM Dictated Date/Time: 08/31/2017 3:16 PM
[2017-08-31 15:35] LABS: BLOOD UREA NITROGEN 10 mg/dl (7-18); CREATININE 0.73 mg/dl (0.60-1.20); GLUCOSE 59 mg/dl (70-99); PARTIAL THROMBOPLASTIN RATIO 1.2; PROTHROMBIN TIME (PATIENT) 10.4 SECONDS (9.0-12.0)
[2017-08-31 15:36] LABS: ALT/SGPT 56 U/L (12-78); BUN/CREATININE RATIO 14.1 (10-20); CALCIUM 10.2 mg/dl (8.5-10.1); CARBON DIOXIDE 32 mmol/L (21-32); CHLORIDE 94 mmol/L (98-107); MAGNESIUM 1.7 mg/dl (1.8-2.4); SODIUM 132 mmol/L (136-145)
[2017-08-31 15:39] LABS: ALKALINE PHOSPHATASE 244 U/L (45-117); AST/SGOT 32 U/L (15-37); CKMB/CK RATIO 1.5 (0-3.0)
[2017-08-31 16:06] LABS: URINE APPEARANCE CLEAR (CLEAR); URINE BILIRUBIN NEG (NEG); URINE COLOR YELLOW; URINE EPITHELIAL CELL AUTO 0-5 /lpf (0-5); URINE NITRITE NEG (NEG); URINE PH 5.5 (4.5-7.5); URINE SPECIFIC GRAVITY 1.013 (1.000-1.030); UROBILINOGEN NEG (NEG); ZZURINE CULT IF INDIC CATH NO
[2017-08-31 16:10] LABS: MANUAL MICROSCOPIC REQUIRED? NO; REVIEW REQ? NO
--- NOTE | 2017-08-31 16:55 | EMERGENCY ROOM VISIT NOTE ---
History Report prepared by Tom: Vladislav Camejo Under the Supervision of: Dr. Nura Ward D.O. First contact with patient: 14:32 Chief Complaint: WEAKNESS Stated Complaint: LOW BLOOD PRESSURE, LOOSING FEELING IN LEFT SIDE Nursing Triage Summary: Patient states "I just got weak and fell down 6 months. No loss of consciousness. Today, I just feel weak." Patient's son explained "the home health nurse took her blood pressure and it was low." History of Present Illness The patient is a 56 year old female who presents to the Emergency Room with complaints of worsening weakness that started a year ago. Per the patient's son , the patient just got out of rehab 5 days ago, and has had home health nurses coming to her home since then. The patient has been unable to get out of bed by herself for the past 6 to 9 months, and the home health nurses have determined that the environment at home is not safe. The patient has been incontinent because she has been unable to get to the bathroom. The patient's son says that he has to -lift the patient to get her out of bed. This morning, the patient was noted to have a low blood pressure with a low oxygen saturation. The patient wears 4 liters of oxygen at home. The patient states that she currently feels terrible and aches all over. She denies any recent cold symptoms , runny nose, or cough. Per the patient's son, the home nurses noted that the patient had wheezes in her chest this morning. The patient says that she smokes at least a pack of cigarettes per day. Source of History: patient, family Onset: A year ago Position: other (global - weakness) Quality: other (unable to get out of bed, cannot get to bathroom) Associated Symptoms: No cough Note: Associated symptoms: Low oxygen saturation with low blood pressure this morning. Currently feels terrible and aches all over. Review of Systems See HPI for pertinent positives & negatives. A total of 10 systems reviewed and were otherwise negative. Past Medical & Surgical Medical Problems: (1) Asthma (2) Benign hypertension (3) Chronic obstructive lung disease (4) Cirrhosis of liver (5) Coronary atherosclerosis of rincon coronary vessel (6) DM type 2 (diabetes mellitus, type 2) (7) Hyperlipidemia (8) Hypothyroidism (9) Morbid obesity with BMI of 40.0-44.9, adult (10) Peripheral vascular disease (11) Pulmonary emphysema (12) Respiratory failure, [id number] (13) TOBACCO USE DISORDER Surgical Problems: (1) History of hysterectomy (2) S/P cholecystectomy (3) S/P coronary artery stent placement (4) S/P tonsillectomy and adenoidectomy Family History FH: diabetes mellitus BROTHER Heart disease MOTHER BROTHER Lung disease FATHER (COPD) SISTER (COPD, asthma) Social History Smoking Status: Current Every Day Smoker Alcohol Use: none Drug Use: none Marital Status: single Housing Status: lives with family Occupation Status: disabled Current/Historical Medications Scheduled Aspirin (Aspirin EC Low Dose), 81 MG PO DAILY Atorvastatin (Atorvastatin Calcium), 40 MG PO DAILY Clopidogrel Bisulfate (Clopidogrel), 75 MG PO DAILY Furosemide (Lasix), 20 MG PO Q2D Gabapentin (Gabapentin), 100 MG PO TID Home O2 Therapy (Oxygen), 4 LITERS NA CONTINOUS Insulin Glargine (Lantus Solostar), 55 UNITS SC QAM Insulin Lispro (Human) (Humalog Kwikpen), 24 UNITS SC AC Ipratropium-Albuterol (Combivent Respimat), 1 PUFFS INH QID Lactobacillus Acidophilus (Floranex), 1 TAB PO TID Levothyroxine Sodium (Levothyroxine Sodium), 200 MCG PO DAILY Metoprolol Tartrate (Lopressor), 12.5 MG PO BID Pantoprazole Sodium (Protonix), 20 MG PO DAILY Scheduled PRN Albuterol Sulf (Proventil 0.083% 2.5MG/3ML), 2.5 MG INH Q4H PRN for Shortness of Breath Albuterol Sulfate (Proair Respiclick), 2 PUFFS INH Q4H PRN for Shortness of Breath Allergies Coded Allergies: Penicillins (Verified Allergy, Intermediate, RASH, 08/31/17) Physical Exam Vital Signs Date Time Temp Pulse Resp B/P (MAP) Pulse Ox O2 Delivery O2 Flow Rate FiO2 08/31/17 20:19 70 16 137/82 97 Room Air 4.0 08/31/17 18:40 58 16 134/78 97 Room Air 4.0 08/31/17 17:27 61 08/31/17 17:10 62 16 134/76 97 Room Air 4.0 08/31/17 15:10 58 16 131/71 97 Room Air 08/31/17 14:40 61 08/31/17 13:10 36.8 68 18 115/62 94 Nasal Cannula 4.0 Physical Exam VITAL SIGNS: were reviewed as above. GENERAL:Non-toxic in appearance. SKIN: Warm dry and pink. HEAD: Normocephalic and atraumatic. OROPHARYNX: Is clear and moist NECK: Supple without lymphadenopathy or meningismus. LUNGS: clear. HEART: Regular rate and rhythm. ABDOMEN: Soft and nontender. EXTREMITIES: Warm and well perfused. NEUROLOGICALLY: Awake alert and oriented without focal deficit. Cranial nerves 2 -12 are intact. There is no pronator drift. Cerebellar testing is within normal limits. There is no nystagmus. There is no facial droop. Speech is clear. Vision is grossly normal. MUSCULOSKELETAL: Good muscle tone. No evidence of trauma. Medical Decision & Procedures ER Provider Diagnostic Interpretation: X ray results and stated below per my interpretation and radiology interpretation. SINGLE VIEW CHEST CLINICAL HISTORY: Change in metal status. Weakness. FINDINGS: An AP, portable, upright chest radiograph is compared to study dated 06/29/2017 and correlated with chest CT dated 06/20/2017. The examination is degraded by portable technique, large body habitus, and patient rotation. The heart is enlarged. The pulmonary vasculature is noncongested. There are patchy airspace opacities present at both lung bases. No large pleural effusion or pneumothorax is seen. The skeletal structures are osteopenic. The bony thorax is grossly intact. IMPRESSION: 1. Cardiomegaly without radiographic evidence of congestive failure. 2. There are patchy bibasilar airspace opacities. This could represent atelectasis versus an infectious/inflammatory pneumonitis. Clinical correlation will be required. Electronically signed by: Addison Connolly M.D. 08/31/2017 3:18 PM Dictated Date/Time: 08/31/2017 3:16 PM Laboratory Results 08/31/17 14:56 Red Blood Count 4.72, Mean Corpuscular Volume 94.9, Mean Corpuscular Hemoglobin 31.4, Mean Corpuscular Hemoglobin Concent 33.0, Mean Platelet Volume 9.2, Neutrophils (%) (Auto) 66.3, Lymphocytes (%) (Auto) 26.6, Monocytes (%) (Auto) 4.3, Eosinophils (%) (Auto) 1.7, Basophils (%) (Auto) 0.3, Neutrophils # (Auto) 7.18, Lymphocytes # (Auto) 2.88, Monocytes # (Auto) 0.47, Eosinophils # (Auto) 0.18, Basophils # (Auto) 0.03 08/31/17 14:56 Test 08/31/17 14:56 08/31/17 15:52 White Blood Count 10.83 K/uL (4.8-10.8) Red Blood Count 4.72 M/uL (4.2-5.4) Hemoglobin 14.8 g/dL (12.0-16.0) Hematocrit 44.8 % (37-47) Mean Corpuscular Volume 94.9 fL (80-100) Mean Corpuscular Hemoglobin 31.4 pg (25-34) Mean Corpuscular Hemoglobin Concent 33.0 g/dl (32-36) Platelet Count 219 K/uL (130-400) Mean Platelet Volume 9.2 fL (7.4-10.4) Neutrophils (%) (Auto) 66.3 % Lymphocytes (%) (Auto) 26.6 % Monocytes (%) (Auto) 4.3 % Eosinophils (%) (Auto) 1.7 % Basophils (%) (Auto) 0.3 % Neutrophils # (Auto) 7.18 K/uL (1.4-6.5) Lymphocytes # (Auto) 2.88 K/uL (1.2-3.4) Monocytes # (Auto) 0.47 K/uL (0.11-0.59) Eosinophils # (Auto) 0.18 K/uL (0-0.5) Basophils # (Auto) 0.03 K/uL (0-0.2) RDW Standard Deviation 47.2 fL (36.4-46.3) RDW Coefficient of Variation 13.6 % (11.5-14.5) Immature Granulocyte % (Auto) 0.8 % Immature Granulocyte # (Auto) 0.09 K/uL (0.00-0.02) Prothrombin Time 10.4 SECONDS (9.0-12.0) Prothromb Time International Ratio 1.0 (0.9-1.1) Activated Partial Thromboplast Time 31.2 SECONDS (21.0-31.0) Partial Thromboplastin Ratio 1.2 Anion Gap 6.0 mmol/L (3-11) Est Creatinine Clear Calc Drug Dose 115.5 ml/min Estimated GFR () 106.0 Estimated GFR (Non- 91.4 BUN/Creatinine Ratio 14.1 (10-20) Calcium Level 10.2 mg/dl (8.5-10.1) Magnesium Level 1.7 mg/dl (1.8-2.4) Total Bilirubin 0.3 mg/dl (0.2-1) Direct Bilirubin 0.1 mg/dl (0-0.2) Aspartate Amino Transf (AST/SGOT) 32 U/L (15-37) Alanine Aminotransferase (ALT/SGPT) 56 U/L (12-78) Alkaline Phosphatase 244 U/L (45-117) Total Creatine Kinase 168 U/L (26-192) Creatine Kinase MB 2.5 ng/ml (0.5-3.6) Creatine Kinase MB Ratio 1.5 (0-3.0) Troponin I < 0.015 ng/ml (0-0.045) Total Protein 7.5 gm/dl (6.4-8.2) Albumin 3.0 gm/dl (3.4-5.0) Lipase 123 U/L (73-393) Urine Color YELLOW Urine Appearance CLEAR (CLEAR) Urine pH 5.5 (4.5-7.5) Urine Specific [place] 1.013 (1.000-1.030) Urine Protein NEG (NEG) Urine Glucose (UA) NEG (NEG) Urine Ketones NEG (NEG) Urine Occult Blood NEG (NEG) Urine Nitrite NEG (NEG) Urine Bilirubin NEG (NEG) Urine Urobilinogen NEG (NEG) Urine Leukocyte Esterase NEG (NEG) Urine WBC (Auto) 0 /hpf (0-5) Urine RBC (Auto) 0-4 /hpf (0-4) Urine Hyaline Casts (Auto) 0 /lpf (0-5) Urine Epithelial Cells (Auto) 0-5 /lpf (0-5) Urine Bacteria (Auto) NEG (NEG) Laboratory results as stated above per my review. Medications Administered Medications (Trade) Dose Ordered Sig/Abdi Route Start Time Stop Time Status Last Admin Dose Admin Sodium Chloride 1,000 ml @ 999 mls/hr Q1H1M STAT IV 08/31/17 14:44 08/31/17 15:44 DC 08/31/17 15:10 999 MLS/HR ECG Indication: weakness Rate (beats per minute): 63 Rhythm: normal sinus Findings: no ectopy, other (no acute injury) ED Course 1432: Previous medical records were reviewed. The patient was evaluated in room B10. A complete history and physical examination was performed. 1444: Ordered NSS 1000 ml @ 999 mls/hr IV. 1900: The heel caser notified me that the patient will be discharged to [facility] tomorrow. The patient is agreeable with the plan. Medical Decision Differential includes acute coronary syndrome, myocardial infarction, CVA, TIA, anemia, infection, pneumonia, UTI, pyelonephritis, poor nutrition, dehydration, electrolyte disturbance,hypoglycemia. This is a 56-year-old female who presents to the ED with a chief complaint of weakness. The patient has been too weak to walk for about the past 6 months. She recently spent the last 3 months and a local nursing facility. She states that the insurance ran out at [facility] and the patient was discharged home. The patient denies any specific complaints other than weakness and inability to walk. Her physical exam did not reveal any focal weakness. She had some mild generalized weakness diffusely. She is overweight. Her laboratory studies included a CBC which did not reveal significant anemia. She has no significant electrolyte abnormalities or hypoglycemia. The patient's x-ray was reviewed. Radiologist's report atelectasis versus possible infiltrate. Clinically the patient has no pulmonary symptoms to suggest a pneumonia. She is afebrile. The patient was told the results of the test. We ([facility]) are checking into [facility] for placement for the patient. Medication Reconcilliation Current Medication List: was personally reviewed by me Blood Pressure Screening Patient's blood pressure: Normal blood pressure Impression Primary Impression: Weakness Scribe Attestation The scribe's documentation has been prepared under my direction and personally reviewed by me in its entirety. I confirm that the note above accurately reflects all work, treatment, procedures, and medical decision making performed by me. Departure Information Dispostion Other (discharged to [facility] tomorrow) Referrals Ren Marroquin M.D. (PCP) Patient Instructions My [facility]
[2017-08-31] MEDS ORDERED: IV FLUIDS COMPLETED PRN (21:00)
[2017-08-31 21:41] VITALS: BMI 56.5
[2017-08-31] MEDS ORDERED: ONDANSETRON INJ 2 MG/ML 2 ML VIAL IV PRN (22:00)
[2017-08-31] MEDS ORDERED: POLYETHYLENE (MIRALAX) 17 GM PACK PO PRN (22:00)
[2017-08-31] MEDS ORDERED: GLUCAGON FOR INJ 1 MG VIAL SQ PRN (22:00)
[2017-08-31] MEDS ORDERED: GLUCOSE 40% GEL 15 GM TUBE PO PRN (22:00)
[2017-08-31] MEDS ORDERED: DEXTROSE 50% 50 ML SYR IV PRN (22:00)
[2017-08-31] MEDS ORDERED: GLUCOSE 10 TABS/TUBE PO PRN (22:00)
[2017-08-31] MEDS ORDERED: CLX20 PO (22:12)
[2017-08-31] MEDS ORDERED: ALBUTEROL HFA 8 GM INHALER INH PRN (22:15)
[2017-08-31] MEDS ORDERED: ALBUTEROL 0.083% NEBU SOLN 3 ML VIAL INH PRN (22:15)
[2017-08-31 22:40] VITALS: BP 110/78; PULSE 59; TEMP 36.7; O2SAT 93
[2017-08-31] MEDS ORDERED: NURSING DECISION MEDICATION ORDER SCH (23:15)
[2017-08-31] MEDS: MAGNESIUM SULFATE 1GM / D5W 1 GM in PREMIXED IN D5W 100 ML IV SCH (23:17)
--- NOTE | 2017-08-31 23:57 | History and Physical ---
History & Physical Date & Time of Service: Aug 31, 2017 at 22:16 Chief Complaint: Low Blood Pressure, Loosing Feeling In Left Side Primary Care Physician: Ren Marorquin M.D. History of Present Illness Source: patient, clinic records, hospital records 56 yo F with multiple medical issues presents to the ER for progressive weakness. She is unable to care for herself at home where she lives with her boyfriend, and of late has been unable to stand or ambulate with a walker as she had been able to 6 months ago. She was brought in by family for this, otherwise feeling well, and needs to be admitted to facilitate placement into a more long-term care situation. Although she was recently in something like this her insurance benefits ran out and she had to leave which was the reason for the discharge. Over the weekend more problems were noted. 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 She cannot reiterate any of this history. Her son and DIL fill her medication box for the week so she is not well-versed on her medications but denies any recent changes. She is morbidly obese with a very large pannus obscuring any ability to look for ascites. ROS reveals a 20 lb weight gain. She otherwise denies chest pain, SOB, abdominal pain, fevers , chills, cough, sore throat, nausea, vomiting, diarrhea or changes in her stool. 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 Status: Chronic (5) Coronary atherosclerosis of ruby coronary vessel Permanent Comment: STEMI November of 2011 treated at [facility] with a PCI to the RCA Status: Chronic (6) DM type 2 (diabetes mellitus, type 2) Status: Chronic (7) Hyperlipidemia Status: Chronic (8) Hypothyroidism Status: Chronic (9) Morbid obesity with BMI of 40.0-44.9, adult Status: Chronic (10) Peripheral vascular disease Status: Chronic (11) Pulmonary emphysema Status: Chronic (12) TOBACCO USE DISORDER Status: Chronic Surgical Problems: (1) History of hysterectomy Status: Chronic (2) S/P cholecystectomy Status: Chronic (3) S/P coronary artery stent placement Permanent Comment: 11/2011 ISABEL to RCA Status: Chronic (4) S/P tonsillectomy and adenoidectomy Status: Chronic Family History FH: diabetes mellitus BROTHER Heart disease MOTHER BROTHER Lung disease FATHER (COPD) SISTER (COPD, asthma) Social History Smoking Status: Current Every Day Smoker Smokeless Tobacco Use: No Alcohol Use: occasionally Drug Use: none Marital Status: single Housing status: lives with significant other Occupational Status: disabled Immunizations History of Influenza Vaccine: Yes Influenza Vaccine Date: Sep 27, 2016 History of Tetanus Vaccine?: Yes Tetanus Immunization Date: Jul 15, 2008 History of Pneumococcal: Yes Pneumococcal Date: Jan 05, 2008 History of Hepatitis B Vaccine: Yes Hepatitis Immunization Date: Mar 22, 2017 Multi-Drug Resistant Organisms History of MDRO: Yes Type of MDRO: MRSA Allergies Coded Allergies: Penicillins (Verified Allergy, Intermediate, RASH, 08/31/17) Home Medications Scheduled Aspirin (Aspirin EC Low Dose), 81 MG PO DAILY Atorvastatin (Atorvastatin Calcium), 40 MG PO DAILY Citalopram (Citalopram Hydrobromide), 20 MG PO QAM Clopidogrel Bisulfate (Clopidogrel), 75 MG PO DAILY Furosemide (Lasix), 20 MG PO Q2D Gabapentin (Gabapentin), 100 MG PO TID Home O2 Therapy (Oxygen), 4 LITERS NA CONTINOUS Insulin Glargine (Lantus Solostar), 55 UNITS SC QAM Insulin Lispro (Human) (Humalog Kwikpen), 24 UNITS SC AC Ipratropium-Albuterol (Combivent Respimat), 1 PUFFS INH QID Lactobacillus Acidophilus (Floranex), 1 TAB PO TID Levothyroxine Sodium (Levothyroxine Sodium), 200 MCG PO DAILY Metoprolol Tartrate (Lopressor), 12.5 MG PO BID Pantoprazole Sodium (Protonix), 20 MG PO DAILY Scheduled PRN Albuterol Sulf (Proventil 0.083% 2.5MG/3ML), 2.5 MG INH Q4H PRN for Shortness of Breath Albuterol Sulfate (Proair Respiclick), 2 PUFFS INH Q4H PRN for Shortness of Breath Review of Systems At least ten systems were reviewed and negative except as indicated in HPI. Physical Exam Vital Signs Date Time Temp Pulse Resp B/P (MAP) Pulse Ox O2 Delivery O2 Flow Rate FiO2 08/31/17 20:19 70 16 137/82 97 Room Air 4.0 08/31/17 18:40 58 16 134/78 97 Room Air 4.0 08/31/17 17:27 61 08/31/17 17:10 62 16 134/76 97 Room Air 4.0 08/31/17 15:10 58 16 131/71 97 Room Air 08/31/17 14:40 61 08/31/17 13:10 36.8 68 18 115/62 94 Nasal Cannula 4.0 General Appearance: no apparent distress, + obese Head: normocephalic, atraumatic Eyes: normal inspection, PERRL, sclerae normal ENT: hearing grossly normal, pharynx normal Neck: supple, no adenopathy, trachea midline Respiratory/Chest: chest non-tender, lungs clear, normal breath sounds, no respiratory distress, no accessory muscle use Cardiovascular: regular rate, rhythm, no edema, no gallop, no JVD, no murmur, normal peripheral pulses Abdomen/GI: normal bowel sounds, non tender, soft, + pertinent finding (large pannus with a central vertical scar/stretch edgardo inferior to umbilicus) Back: normal inspection Extremities/Musculoskelatal: normal inspection, no pedal edema Neurologic/Psych: no motor/sensory deficits (grossly), alert, normal mood/ affect (flat affect), oriented x 3 Skin: normal color, warm/dry Diagnostics Laboratory Results 08/31/17 14:56 Red Blood Count 4.72, Mean Corpuscular Volume 94.9, Mean Corpuscular Hemoglobin 31.4, Mean Corpuscular Hemoglobin Concent 33.0, Mean Platelet Volume 9.2, Neutrophils (%) (Auto) 66.3, Lymphocytes (%) (Auto) 26.6, Monocytes (%) (Auto) 4.3, Eosinophils (%) (Auto) 1.7, Basophils (%) (Auto) 0.3, Neutrophils # (Auto) 7.18, Lymphocytes # (Auto) 2.88, Monocytes # (Auto) 0.47, Eosinophils # (Auto) 0.18, Basophils # (Auto) 0.03 09/01/17 05:37 Test 08/31/17 14:56 08/31/17 15:52 09/01/17 05:37 09/01/17 07:58 White Blood Count 10.83 K/uL (4.8-10.8) Red Blood Count 4.72 M/uL (4.2-5.4) Hemoglobin 14.8 g/dL (12.0-16.0) Hematocrit 44.8 % (37-47) Mean Corpuscular Volume 94.9 fL (80-100) Mean Corpuscular Hemoglobin 31.4 pg (25-34) Mean Corpuscular Hemoglobin Concent 33.0 g/dl (32-36) Platelet Count 219 K/uL (130-400) Mean Platelet Volume 9.2 fL (7.4-10.4) Neutrophils (%) (Auto) 66.3 % Lymphocytes (%) (Auto) 26.6 % Monocytes (%) (Auto) 4.3 % Eosinophils (%) (Auto) 1.7 % Basophils (%) (Auto) 0.3 % Neutrophils # (Auto) 7.18 K/uL (1.4-6.5) Lymphocytes # (Auto) 2.88 K/uL (1.2-3.4) Monocytes # (Auto) 0.47 K/uL (0.11-0.59) Eosinophils # (Auto) 0.18 K/uL (0-0.5) Basophils # (Auto) 0.03 K/uL (0-0.2) RDW Standard Deviation 47.2 fL (36.4-46.3) RDW Coefficient of Variation 13.6 % (11.5-14.5) Immature Granulocyte % (Auto) 0.8 % Immature Granulocyte # (Auto) 0.09 K/uL (0.00-0.02) Prothrombin Time 10.4 SECONDS (9.0-12.0) Prothromb Time International Ratio 1.0 (0.9-1.1) Activated Partial Thromboplast Time 31.2 SECONDS (21.0-31.0) Partial Thromboplastin Ratio 1.2 Total Bilirubin 0.3 mg/dl (0.2-1) Direct Bilirubin 0.1 mg/dl (0-0.2) Aspartate Amino Transf (AST/SGOT) 32 U/L (15-37) Alanine Aminotransferase (ALT/SGPT) 56 U/L (12-78) Alkaline Phosphatase 244 U/L (45-117) Total Creatine Kinase 168 U/L (26-192) Creatine Kinase MB 2.5 ng/ml (0.5-3.6) Creatine Kinase MB Ratio 1.5 (0-3.0) Troponin I < 0.015 ng/ml (0-0.045) Total Protein 7.5 gm/dl (6.4-8.2) Albumin 3.0 gm/dl (3.4-5.0) Lipase 123 U/L (73-393) Thyroid Stimulating Hormone (TSH) 2.510 uIu/ml (0.300-4.500) Urine Color YELLOW Urine Appearance CLEAR (CLEAR) Urine pH 5.5 (4.5-7.5) Urine Specific [place] 1.013 (1.000-1.030) Urine Protein NEG (NEG) Urine Glucose (UA) NEG (NEG) Urine Ketones NEG (NEG) Urine Occult Blood NEG (NEG) Urine Nitrite NEG (NEG) Urine Bilirubin NEG (NEG) Urine Urobilinogen NEG (NEG) Urine Leukocyte Esterase NEG (NEG) Urine WBC (Auto) 0 /hpf (0-5) Urine RBC (Auto) 0-4 /hpf (0-4) Urine Hyaline Casts (Auto) 0 /lpf (0-5) Urine Epithelial Cells (Auto) 0-5 /lpf (0-5) Urine Bacteria (Auto) NEG (NEG) Anion Gap 5.0 mmol/L (3-11) Est Creatinine Clear Calc Drug Dose 148.0 ml/min Estimated GFR () 119.3 Estimated GFR (Non- 102.9 BUN/Creatinine Ratio 18.9 (10-20) Estimated Average Glucose 180 mg/dl Hemoglobin A1c 7.9 % (4.5-5.6) Calcium Level 9.0 mg/dl (8.5-10.1) Magnesium Level 2.1 mg/dl (1.8-2.4) Bedside Glucose 155 mg/dl (70-90) Results Past 24 Hours Test 08/31/17 14:56 08/31/17 15:52 08/31/17 22:09 Range/Units White Blood Count 10.83 4.8-10.8 K/uL Red Blood Count 4.72 4.2-5.4 M/uL Hemoglobin 14.8 12.0-16.0 g/dL Hematocrit 44.8 37-47 % Mean Corpuscular Volume 94.9 80-100 fL Mean Corpuscular Hemoglobin 31.4 25-34 pg Mean Corpuscular Hemoglobin Concent 33.0 32-36 g/dl Platelet Count 219 130-400 K/uL Mean Platelet Volume 9.2 7.4-10.4 fL Neutrophils (%) (Auto) 66.3 % Lymphocytes (%) (Auto) 26.6 % Monocytes (%) (Auto) 4.3 % Eosinophils (%) (Auto) 1.7 % Basophils (%) (Auto) 0.3 % Neutrophils # (Auto) 7.18 1.4-6.5 K/uL Lymphocytes # (Auto) 2.88 1.2-3.4 K/uL Monocytes # (Auto) 0.47 0.11-0.59 K/uL Eosinophils # (Auto) 0.18 0-0.5 K/uL Basophils # (Auto) 0.03 0-0.2 K/uL RDW Standard Deviation 47.2 36.4-46.3 fL RDW Coefficient of Variation 13.6 11.5-14.5 % Immature Granulocyte % (Auto) 0.8 % Immature Granulocyte # (Auto) 0.09 0.00-0.02 K/uL Prothrombin Time 10.4 9.0-12.0 SECONDS Prothromb Time International Ratio 1.0 0.9-1.1 Activated Partial Thromboplast Time 31.2 21.0-31.0 SECONDS Partial Thromboplastin Ratio 1.2 Sodium Level 132 136-145 mmol/L Potassium Level 4.0 3.5-5.1 mmol/L Chloride Level 94 98-107 mmol/L Carbon Dioxide Level 32 21-32 mmol/L Anion Gap 6.0 3-11 mmol/L Blood Urea Nitrogen 10 7-18 mg/dl Creatinine 0.73 0.60-1.20 mg/dl Est Creatinine Clear Calc Drug Dose 115.5 ml/min Estimated GFR () 106.0 Estimated GFR (Non- 91.4 BUN/Creatinine Ratio 14.1 10-20 Random Glucose 59 70-99 mg/dl Calcium Level 10.2 8.5-10.1 mg/dl Magnesium Level 1.7 1.8-2.4 mg/dl Total Bilirubin 0.3 0.2-1 mg/dl Direct Bilirubin 0.1 0-0.2 mg/dl Aspartate Amino Transf (AST/SGOT) 32 15-37 U/L Alanine Aminotransferase (ALT/SGPT) 56 12-78 U/L Alkaline Phosphatase 244 45-117 U/L Total Creatine Kinase 168 26-192 U/L Creatine Kinase MB 2.5 0.5-3.6 ng/ml Creatine Kinase MB Ratio 1.5 0-3.0 Troponin I < 0.015 0-0.045 ng/ml Total Protein 7.5 6.4-8.2 gm/dl Albumin 3.0 3.4-5.0 gm/dl Lipase 123 73-393 U/L Urine Color YELLOW Urine Appearance CLEAR CLEAR Urine pH 5.5 4.5-7.5 Urine Specific [place] 1.013 1.000-1.030 Urine Protein NEG NEG Urine Glucose (UA) NEG NEG Urine Ketones NEG NEG Urine Occult Blood NEG NEG Urine Nitrite NEG NEG Urine Bilirubin NEG NEG Urine Urobilinogen NEG NEG Urine Leukocyte Esterase NEG NEG Urine WBC (Auto) 0 0-5 /hpf Urine RBC (Auto) 0-4 0-4 /hpf Urine Hyaline Casts (Auto) 0 0-5 /lpf Urine Epithelial Cells (Auto) 0-5 0-5 /lpf Urine Bacteria (Auto) NEG NEG Diagnostic Radiology SINGLE VIEW CHEST CLINICAL HISTORY: Change in metal status. Weakness. FINDINGS: An AP, portable, upright chest radiograph is compared to study dated 06/29/2017 and correlated with chest CT dated 06/20/2017. The examination is degraded by portable technique, large body habitus, and patient rotation. The heart is enlarged. The pulmonary vasculature is noncongested. There are patchy airspace opacities present at both lung bases. No large pleural effusion or pneumothorax is seen. The skeletal structures are osteopenic. The bony thorax is grossly intact. IMPRESSION: 1. Cardiomegaly without radiographic evidence of congestive failure. 2. There are patchy bibasilar airspace opacities. This could represent atelectasis versus an infectious/inflammatory pneumonitis. Clinical correlation will be required. Normal EKG Impression Assessment and Plan 56 yo F with multiple chronic comorbidities and morbid obesity presents to the ER for progressive generalized weakness and the inability to care for herself in the home environment. 1. Generalized weakness-likely multifactorial and progressive. Needs long- term care which is being facilitated. PT/OT to evaluate in am. 2. Morbid obesity 3. CAD s/p stent-stable, no chest pain or dyspnea. Normal EKG. Cont medical management including ASA, Plavix, Lipitor, and Lopressor 4. Tobacco use-encouraged to quit smoking in light of need for continuous oxygen at this point from underlying COPD. Nicotine patch provided 5. h/o MRSA-contact precautions 6. DMII-inpatient glucose at goal, cont Lantus BID and ISS with carb coverage 7. cirrhosis of liver-ensure BM 1-2 times daily which she does report at home. Appears stable at this point. Cont Lasix as instructed. DVT proph-Lovenox Full Code Dispo-to long-term care facility Letty Capone DO [facility] Hospitalist Level of Care Med/Surg Advanced Directives Existing Living Will: No Existing Power of Brush Cleaner: No Resuscitation Status FULL RESUSCITATION VTE Prophylaxis VTE Risk Assessment Done? Y/N: Yes Risk Level: Moderate Given or contraindicated: Enoxaparin (Lovenox)SQ
[2017-09-01] MEDS ORDERED: MICONAZOLE NITRATE POWDER 43 GM EXT PRN (00:15)
[2017-09-01] MEDS: MAGNESIUM SULFATE 1GM / D5W 1 GM in PREMIXED IN D5W 100 ML IV SCH (00:17)
[2017-09-01] MEDS: LEVOTHYROXINE 200 MCG TAB PO SCH (06:25)
[2017-09-01 07:05] LABS: BUN/CREATININE RATIO 18.9 (10-20); CREATININE 0.57 mg/dl (0.60-1.20); MAGNESIUM 2.1 mg/dl (1.8-2.4); POTASSIUM 4.4 mmol/L (3.5-5.1)
[2017-09-01 08:00] VITALS: O2SAT 97
[2017-09-01] MEDS: METOPROLOL TARTRATE 25 MG TAB PO SCH ×2 (08:00→19:34)
[2017-09-01 08:06] VITALS: BP 100/57; PULSE 61; TEMP 36.4; O2SAT 95
[2017-09-01] MEDS: ASPIRIN 81 MG ECTAB PO SCH (08:15)
[2017-09-01] MEDS: IPRATROPIUM BROMIDE/ALBUTEROL respimat INH INH SCH ×4 (08:15→19:34)
[2017-09-01] MEDS: LACTOBACILLUS ACIDOPHILUS (FLORANEX) TAB PO SCH ×3 (08:15→19:34)
[2017-09-01] MEDS: PANTOprazole SOD 40 MG TAB PO SCH (08:15)
[2017-09-01] MEDS: CLOPIDOGREL BISULFATE 75 MG TAB PO SCH (08:15)
[2017-09-01] MEDS: CITALOPRAM 20 MG TAB PO SCH (08:16)
[2017-09-01] MEDS: FUROSEMIDE 20 MG TAB PO SCH (08:16)
[2017-09-01] MEDS: GABAPENTIN 100 MG CAP PO SCH ×3 (08:16→19:35)
[2017-09-01] MEDS: ATORVASTATIN 40 MG TAB PO SCH (08:16)
[2017-09-01] MEDS: ENOXAPARIN 40 MG/0.4 ML SYR SQ SCH (08:17)
[2017-09-01] MEDS: INSULIN GLARGINE SOLOSTAR 100 UNITS/ML 3 ML PEN SC SCH ×2 (09:20→20:02)
[2017-09-01] MEDS: INSULIN ASPART 100 UNITS/ML 3 ML PEN SC SCH ×4 (09:20→19:59)
[2017-09-01] MEDS: NICOTINE 21 MG/24 HR TDSY TD SCH (10:30)
[2017-09-01 13:05] VITALS: Ht 157.5 cm; Wt 140.0 kg
[2017-09-01 16:00] VITALS: O2SAT 97
[2017-09-01 16:08] VITALS: BP 114/64; PULSE 60; TEMP 36.4; O2SAT 94
--- NOTE | 2017-09-01 16:51 | Progress Note ---
Internal Med Progress Note Date of Service: Sep 01, 2017. Provider Documentation: SUBJECTIVE: The patient was seen and examined DEnies any symptoms Admitted as she can not take care of herself OBJECTIVE: Vital Signs-as noted below Exam: General-no distress at rest Eyes-normal ENT-normal Neck-supple Lungs-clear to ausucltate bilaterally Heart-Regular Abdomen-Benign,no masses,bowel sound present Extremities-Trace edema bilaterally Neuro-AAOx3 Lab data as noted below. ASSESSMENT & PLAN: 56 yo F with multiple chronic comorbidities and morbid obesity presents to the ER for progressive generalized weakness and the inability to care for herself in the home environment. Generalized weakness-no other symptoms Deconditioning Likely multifactorial and progressive. Needs long-term care which is being facilitated. PT/OT to evaluate in am. Morbid obesity Not been able to take care of herself Will need placement CAD s/p stent-stable, no chest pain or dyspnea. Normal EKG. Cont medical management including ASA, Plavix, Lipitor, and Lopressor Denies any symptoms Tobacco use-encouraged to quit smoking in light of need for continuous oxygen at this point from underlying COPD. Nicotine patch provided MRSA-contact precautions No acute infection DMII-inpatient glucose at goal, cont Lantus BID and ISS with carb coverage Cirrhosis of liver-ensure BM 1-2 times daily which she does report at home. Appears stable at this point. Cont Lasix as instructed. DVT proph-Lovenox Full Code Dispo-to long-term care facility Vital Signs: Date Time Temp Pulse Resp B/P (MAP) Pulse Ox O2 Delivery O2 Flow Rate FiO2 09/01/17 16:08 36.4 60 20 114/64 (81) 94 Nasal Cannula 4.0 09/01/17 08:06 36.4 61 16 100/57 (71) 95 Nasal Cannula 4.0 09/01/17 08:00 97 Nasal Cannula 4.0 09/01/17 00:00 Nasal Cannula 4.0 08/31/17 22:40 36.7 59 18 110/78 (89) 93 Nasal Cannula 4.0 08/31/17 21:41 Nasal Cannula 4.0 08/31/17 20:19 70 16 137/82 97 Room Air 4.0 08/31/17 18:40 58 16 134/78 97 Room Air 4.0 08/31/17 17:27 61 08/31/17 17:10 62 16 134/76 97 Room Air 4.0 Lab Results: Results Past 24 Hours Test 09/01/17 05:37 09/01/17 07:58 09/01/17 11:50 Range/Units Sodium Level 136 136-145 mmol/L Potassium Level 4.4 3.5-5.1 mmol/L Chloride Level 99 98-107 mmol/L Carbon Dioxide Level 32 21-32 mmol/L Anion Gap 5.0 3-11 mmol/L Blood Urea Nitrogen 11 7-18 mg/dl Creatinine 0.57 0.60-1.20 mg/dl Est Creatinine Clear Calc Drug Dose 148.0 ml/min Estimated GFR () 119.3 Estimated GFR (Non- 102.9 BUN/Creatinine Ratio 18.9 10-20 Random Glucose 195 70-99 mg/dl Estimated Average Glucose 180 mg/dl Hemoglobin A1c 7.9 4.5-5.6 % Calcium Level 9.0 8.5-10.1 mg/dl Magnesium Level 2.1 1.8-2.4 mg/dl Bedside Glucose 155 158 70-90 mg/dl
[2017-09-01 19:39] VITALS: BP 95/62; PULSE 60
[2017-09-01] MEDS: ACETAMINOPHEN 325 MG TAB PO PRN (20:03)
[2017-09-01 23:38] VITALS: BP 125/84; PULSE 62; TEMP 36.5; O2SAT 95
[2017-09-02 07:42] VITALS: BP 89/47; PULSE 60; TEMP 36.4; O2SAT 95
[2017-09-02 08:00] VITALS: O2SAT 95
--- NOTE | 2017-09-02 08:11 | Clinical Documentation Query ---
Dr. OCHOA [facility] : CLINICAL DOCUMENTATION QUERIES QUERY 1 OF 2 Patient is a 56 year old female admitted for generalized weakness and inability to care for herself in the home environment. As appropriate, consider clarification as suggested below in order to capture appropriate severity of illness and associated risk of mortality. In your clinical opinion is this patient being managed for: ( ) Muscle weakness, adult failure to thrive ( ) Not Agree ( ) Other explanation of clinical findings (Please Explain) ( + ) Unable to determine (Please Define) ( ) Need to Discuss Morbidly obese patient with generalized weakness and inability to perform ADLs by herself with other comorbid conditions. The medical record reflects the following clinical findings, treatment, and risk factors. Clinical Indicators: As above Treatment:PT/OT consultation, social service consultation Risk Factors: Caloric intake > caloric expenditure. QUERY 2 OF 2 Documentation support the use of continuous supplemental oxygen use in the setting of COPD. As appropriate, consider clarification as suggested below. In your clinical opinion is this patient being managed for: ( + ) Chronic respiratory failure with hypoxia ( ) Not Agree ( ) Other explanation of clinical findings (Please Explain) ( ) Unable to determine (Please Define) ( ) Need to Discuss The medical record reflects the following clinical findings, treatment, and risk factors. Clinical Indicators: As above Treatment: Ongoing provision of supplemental oxygen Risk Factors: COPD/smoking, morbid obesity Please clarify and document your clinical opinion in the progress notes and discharge summary. Terms such as "probable", "suspected", "likely", "questionable", "possible", or "still to be ruled out" are acceptable. IF IN AGREEMENT, YOU MUST DOCUMENT ABOVE DIAGNOSTIC STATEMENT IN DAILY PROGRESS NOTES AND DISCHARGE SUMMARY. This document is not part of the patient's record. Thank You, Matty Adam, ROSA [phone]
[2017-09-02] MEDS: LEVOTHYROXINE 200 MCG TAB PO SCH (08:33)
[2017-09-02] MEDS: IPRATROPIUM BROMIDE/ALBUTEROL respimat INH INH SCH ×4 (08:34→20:59)
[2017-09-02] MEDS: LACTOBACILLUS ACIDOPHILUS (FLORANEX) TAB PO SCH ×3 (08:34→21:01)
[2017-09-02] MEDS: CITALOPRAM 20 MG TAB PO SCH (08:34)
[2017-09-02] MEDS: ASPIRIN 81 MG ECTAB PO SCH (08:34)
[2017-09-02] MEDS: ATORVASTATIN 40 MG TAB PO SCH (08:35)
[2017-09-02] MEDS: METOPROLOL TARTRATE 25 MG TAB PO SCH ×2 (08:36→20:00)
[2017-09-02] MEDS: GABAPENTIN 100 MG CAP PO SCH ×3 (08:37→21:01)
[2017-09-02] MEDS: NICOTINE 21 MG/24 HR TDSY TD SCH (08:38)
[2017-09-02] MEDS: CLOPIDOGREL BISULFATE 75 MG TAB PO SCH (08:38)
[2017-09-02] MEDS: PANTOprazole SOD 40 MG TAB PO SCH (08:38)
[2017-09-02] MEDS: ENOXAPARIN 40 MG/0.4 ML SYR SQ SCH (08:40)
[2017-09-02] MEDS: INSULIN GLARGINE SOLOSTAR 100 UNITS/ML 3 ML PEN SC SCH ×2 (08:46→21:04)
[2017-09-02] MEDS: INSULIN ASPART 100 UNITS/ML 3 ML PEN SC SCH ×4 (08:48→21:00)
[2017-09-02 15:12] VITALS: BP 103/65; PULSE 59; TEMP 36.6; O2SAT 93
[2017-09-02 16:00] VITALS: O2SAT 97
--- NOTE | 2017-09-02 17:17 | Progress Note ---
Internal Med Progress Note Date of Service: Sep 02, 2017. Provider Documentation: SUBJECTIVE: The patient was seen and examined Admitted as she can not take care of herself Denies any symptoms OBJECTIVE: Vital Signs-as noted below Exam: General-no distress at rest Morbidly Obese Eyes-normal ENT-normal Neck-supple Lungs-clear to ausucltate bilaterally Heart-Regular Abdomen-Benign,no masses,bowel sound present Extremities-Trace edema bilaterally Neuro-AAOx3 Lab data as noted below. ASSESSMENT & PLAN: 56 yo F with multiple chronic comorbidities and morbid obesity presents to the ER for progressive generalized weakness and the inability to care for herself in the home environment. Generalized weakness-no other symptoms Deconditioning Likely multifactorial and progressive. Needs long-term care which is being facilitated. PT/OT to evaluate in am. Chronic Respiratory Failure On Home Oxygen No acute issue Morbid obesity Not been able to take care of herself Will need placement CAD s/p stent-stable, no chest pain or dyspnea. Normal EKG. Cont medical management including ASA, Plavix, Lipitor, and Lopressor Denies any symptoms Tobacco use-encouraged to quit smoking in light of need for continuous oxygen at this point from underlying COPD. Nicotine patch provided MRSA-contact precautions No acute infection DMII-inpatient glucose at goal, cont Lantus BID and ISS with carb coverage Cirrhosis of liver-ensure BM 1-2 times daily which she does report at home. Appears stable at this point. Cont Lasix as instructed. DVT proph-Lovenox Full Code Dispo-to long-term care facility Vital Signs: Date Time Temp Pulse Resp B/P (MAP) Pulse Ox O2 Delivery O2 Flow Rate FiO2 09/02/17 16:00 97 Nasal Cannula 4.0 09/02/17 15:12 36.6 59 16 103/65 (78) 93 Nasal Cannula 4.0 09/02/17 08:00 95 Nasal Cannula 4.0 09/02/17 07:42 36.4 60 16 89/47 (61) 95 Nasal Cannula 4.0 09/02/17 00:00 Nasal Cannula 4.0 09/01/17 23:38 36.5 62 18 125/84 (98) 95 Nasal Cannula 3.0 09/01/17 19:39 60 20 95/62 (73) Lab Results: Results Past 24 Hours Test 09/01/17 19:59 09/02/17 07:49 09/02/17 11:02 09/02/17 16:02 Range/Units Bedside Glucose 150 105 158 130 70-90 mg/dl
[2017-09-03] VITALS (7 sets, daily range): BP systolic 94–140; BP diastolic 61–84; PULSE 54–56; TEMP 36.4–36.8; O2SAT 94–98
[2017-09-03] MEDS: LEVOTHYROXINE 200 MCG TAB PO SCH (06:20)
[2017-09-03] MEDS: NICOTINE 21 MG/24 HR TDSY TD SCH (07:39)
[2017-09-03] MEDS: IPRATROPIUM BROMIDE/ALBUTEROL respimat INH INH SCH ×4 (07:57→21:39)
[2017-09-03] MEDS: ENOXAPARIN 40 MG/0.4 ML SYR SQ SCH (07:57)
[2017-09-03] MEDS: METOPROLOL TARTRATE 25 MG TAB PO SCH ×2 (07:57→20:00)
[2017-09-03] MEDS: CITALOPRAM 20 MG TAB PO SCH (07:58)
[2017-09-03] MEDS: FUROSEMIDE 20 MG TAB PO SCH (07:58)
[2017-09-03] MEDS: ATORVASTATIN 40 MG TAB PO SCH (07:58)
[2017-09-03] MEDS: ASPIRIN 81 MG ECTAB PO SCH (07:58)
[2017-09-03] MEDS: CLOPIDOGREL BISULFATE 75 MG TAB PO SCH (07:58)
[2017-09-03] MEDS: LACTOBACILLUS ACIDOPHILUS (FLORANEX) TAB PO SCH ×3 (07:58→21:39)
[2017-09-03] MEDS: PANTOprazole SOD 40 MG TAB PO SCH (07:58)
[2017-09-03] MEDS: GABAPENTIN 100 MG CAP PO SCH ×3 (07:59→21:40)
[2017-09-03] MEDS: INSULIN ASPART 100 UNITS/ML 3 ML PEN SC SCH ×4 (09:06→21:00)
[2017-09-03] MEDS: INSULIN GLARGINE SOLOSTAR 100 UNITS/ML 3 ML PEN SC SCH ×2 (09:06→21:42)
--- NOTE | 2017-09-03 14:54 | Progress Note ---
Internal Med Progress Note Date of Service: Sep 03, 2017. Provider Documentation: SUBJECTIVE: The patient was seen and examined Admitted as she can not take care of herself Denies any symptoms Remains stable without any symptoms OBJECTIVE: Vital Signs-as noted below Exam: General-no distress at rest Morbidly Obese Eyes-normal ENT-normal Neck-supple Lungs-clear to ausucltate bilaterally Heart-Regular Abdomen-Benign,no masses,bowel sound present Extremities-Trace edema bilaterally Neuro-AAOx3 Lab data as noted below. ASSESSMENT & PLAN: 56 yo F with multiple chronic comorbidities and morbid obesity presents to the ER for progressive generalized weakness and the inability to care for herself in the home environment. Generalized weakness-no other symptoms Deconditioning Likely multifactorial and progressive. Needs long-term care which is being facilitated. PT/OT Awaiting placement . Chronic Respiratory Failure On Home Oxygen No acute issue Saturating well on 4 Liters [place] Oxygen Morbid obesity Not been able to take care of herself Will need placement CAD s/p stent-stable, no chest pain or dyspnea. Normal EKG. Cont medical management including ASA, Plavix, Lipitor, and Lopressor Denies any symptoms Tobacco use-encouraged to quit smoking in light of need for continuous oxygen at this point from underlying COPD. Nicotine patch provided MRSA-contact precautions No acute infection DMII-inpatient glucose at goal, cont Lantus BID and ISS with carb coverage Cirrhosis of liver-ensure BM 1-2 times daily which she does report at home. Appears stable at this point. Cont Lasix as instructed. DVT proph-Lovenox Full Code Dispo-to long-term care facility Vital Signs: Date Time Temp Pulse Resp B/P (MAP) Pulse Ox O2 Delivery O2 Flow Rate FiO2 09/03/17 08:05 36.4 54 17 94/61 (72) 94 Nasal Cannula 4.0 09/03/17 08:00 94 Nasal Cannula 4.0 09/03/17 00:25 36.4 56 18 140/84 (102) 98 Nasal Cannula 4.0 09/03/17 00:00 97 Nasal Cannula 4.0 09/02/17 16:00 97 Nasal Cannula 4.0 09/02/17 15:12 36.6 59 16 103/65 (78) 93 Nasal Cannula 4.0 Lab Results: Results Past 24 Hours Test 09/02/17 16:02 09/02/17 20:58 09/03/17 07:40 09/03/17 11:59 Range/Units Bedside Glucose 130 141 131 138 70-90 mg/dl
[2017-09-03] MEDS: ACETAMINOPHEN 325 MG TAB PO PRN (23:23)
[2017-09-04] MEDS: NICOTINE 21 MG/24 HR TDSY TD SCH (08:00)
[2017-09-04] MEDS: METOPROLOL TARTRATE 25 MG TAB PO SCH ×2 (08:00→21:13)
[2017-09-04 08:03] LABS: HEMATOCRIT 39.1 % (37-47); MEAN CELL VOLUME 93.8 fL (80-100); MEAN CORPUSCULAR HEMOGLOBIN 31.2 pg (25-34); MEAN CORPUSCULAR HGB CONC 33.2 g/dl (32-36); MEAN PLATELET VOLUME 9.1 fL (7.4-10.4); PLATELET COUNT 204 K/uL (130-400); RED BLOOD COUNT 4.17 M/uL (4.2-5.4); WHITE BLOOD COUNT 8.21 K/uL (4.8-10.8)
[2017-09-04 08:11] LABS: BUN/CREATININE RATIO 25.4 (10-20); CALCIUM 9.8 mg/dl (8.5-10.1); CREATININE 0.52 mg/dl (0.60-1.20); MAGNESIUM 1.8 mg/dl (1.8-2.4); POTASSIUM 4.3 mmol/L (3.5-5.1)
[2017-09-04 08:30] VITALS: BP 82/59; PULSE 55; TEMP 36.3; O2SAT 93
[2017-09-04] MEDS: ATORVASTATIN 40 MG TAB PO SCH (08:47)
[2017-09-04] MEDS: CITALOPRAM 20 MG TAB PO SCH (08:47)
[2017-09-04] MEDS: ASPIRIN 81 MG ECTAB PO SCH (08:47)
[2017-09-04] MEDS: LEVOTHYROXINE 200 MCG TAB PO SCH (08:48)
[2017-09-04] MEDS: CLOPIDOGREL BISULFATE 75 MG TAB PO SCH (08:48)
[2017-09-04] MEDS: LACTOBACILLUS ACIDOPHILUS (FLORANEX) TAB PO SCH ×3 (08:48→21:13)
[2017-09-04] MEDS: PANTOprazole SOD 40 MG TAB PO SCH (08:48)
[2017-09-04] MEDS: GABAPENTIN 100 MG CAP PO SCH ×3 (08:49→21:13)
[2017-09-04] MEDS: IPRATROPIUM BROMIDE/ALBUTEROL respimat INH INH SCH ×4 (08:49→21:12)
[2017-09-04] MEDS: ENOXAPARIN 40 MG/0.4 ML SYR SQ SCH (08:50)
[2017-09-04] MEDS: INSULIN GLARGINE SOLOSTAR 100 UNITS/ML 3 ML PEN SC SCH ×2 (08:55→20:56)
[2017-09-04] MEDS: INSULIN ASPART 100 UNITS/ML 3 ML PEN SC SCH ×4 (08:55→20:42)
[2017-09-04 09:00] VITALS: BP 95/65; PULSE 60
[2017-09-04] MEDS: ACETAMINOPHEN 325 MG TAB PO PRN (13:16)
[2017-09-04 15:56] VITALS: BP 123/79; PULSE 64; TEMP 36.8; O2SAT 96
[2017-09-04 16:00] VITALS: O2SAT 97
--- NOTE | 2017-09-04 17:47 | Progress Note ---
Internal Med Progress Note Date of Service: Sep 04, 2017. Provider Documentation: SUBJECTIVE: The patient was seen and examined Admitted as she can not take care of herself Denies any symptoms Remains stable without any symptoms OOB in a chair Wants to go home OBJECTIVE: Vital Signs-as noted below Exam: General-no distress at rest Morbidly Obese Eyes-normal ENT-normal Neck-supple Lungs-clear to ausucltate bilaterally Heart-Regular Abdomen-Benign,no masses,bowel sound present Extremities-Trace edema bilaterally Neuro-AAOx3 Lab data as noted below. ASSESSMENT & PLAN: 56 yo F with multiple chronic comorbidities and morbid obesity presents to the ER for progressive generalized weakness and the inability to care for herself in the home environment. Generalized weakness-no other symptoms Deconditioning Likely multifactorial and progressive. Needs long-term care which is being facilitated. PT/OT Awaiting placement . NO symptoms reported Chronic Respiratory Failure On Home Oxygen No acute issue Saturating well on 4 Liters [place] Oxygen No SOB at rest Morbid obesity Not been able to take care of herself Will need placement CAD s/p stent-stable, no chest pain or dyspnea. Normal EKG. Cont medical management including ASA, Plavix, Lipitor, and Lopressor Denies any symptoms Tobacco use-encouraged to quit smoking in light of need for continuous oxygen at this point from underlying COPD. Nicotine patch provided MRSA-contact precautions No acute infection DMII-inpatient glucose at goal, cont Lantus BID and ISS with carb coverage Cirrhosis of liver-ensure BM 1-2 times daily which she does report at home. Appears stable at this point. Cont Lasix as instructed. DVT proph-Lovenox Full Code Dispo-to long-term care facility Likely discharge tomorrow Vital Signs: Date Time Temp Pulse Resp B/P (MAP) Pulse Ox O2 Delivery O2 Flow Rate FiO2 09/04/17 16:00 97 Nasal Cannula 4.0 09/04/17 15:56 36.8 64 19 123/79 (94) 96 Nasal Cannula 4.0 09/04/17 09:00 60 95/65 (75) 09/04/17 08:30 36.3 55 18 82/59 (67) 93 Nasal Cannula 4.0 09/04/17 08:00 Nasal Cannula 4.0 09/04/17 00:00 Nasal Cannula 4.0 09/03/17 22:55 36.8 55 20 96 Nasal Cannula 4.0 Lab Results: Results Past 24 Hours Test 09/03/17 20:24 09/04/17 07:20 09/04/17 07:50 09/04/17 11:30 Range/Units Bedside Glucose 123 133 150 70-90 mg/dl White Blood Count 8.21 4.8-10.8 K/uL Red Blood Count 4.17 4.2-5.4 M/uL Hemoglobin 13.0 12.0-16.0 g/dL Hematocrit 39.1 37-47 % Mean Corpuscular Volume 93.8 80-100 fL Mean Corpuscular Hemoglobin 31.2 25-34 pg Mean Corpuscular Hemoglobin Concent 33.2 32-36 g/dl RDW Standard Deviation 45.3 36.4-46.3 fL RDW Coefficient of Variation 13.4 11.5-14.5 % Platelet Count 204 130-400 K/uL Mean Platelet Volume 9.1 7.4-10.4 fL Sodium Level 133 136-145 mmol/L Potassium Level 4.3 3.5-5.1 mmol/L Chloride Level 95 98-107 mmol/L Carbon Dioxide Level 33 21-32 mmol/L Anion Gap 6.0 3-11 mmol/L Blood Urea Nitrogen 13 7-18 mg/dl Creatinine 0.52 0.60-1.20 mg/dl Est Creatinine Clear Calc Drug Dose 162.2 ml/min Estimated GFR () 122.9 Estimated GFR (Non- 106.1 BUN/Creatinine Ratio 25.4 10-20 Random Glucose 128 70-99 mg/dl Calcium Level 9.8 8.5-10.1 mg/dl Phosphorus Level 4.0 2.5-4.9 mg/dl Magnesium Level 1.8 1.8-2.4 mg/dl Test 09/04/17 17:03 Range/Units Bedside Glucose 127 70-90 mg/dl
[2017-09-04 23:30] VITALS: BP 114/67; PULSE 60; TEMP 36.7; O2SAT 93
[2017-09-05] VITALS: O2SAT 97
[2017-09-05] MEDS: ACETAMINOPHEN 325 MG TAB PO PRN (04:24)
[2017-09-05] MEDS: LEVOTHYROXINE 200 MCG TAB PO SCH (06:15)
[2017-09-05] MEDS ORDERED: SODIUM CHLORIDE 0.65% NA SOLN 45 ML (OCEAN) ONE (06:25)
[2017-09-05] MEDS: IPRATROPIUM BROMIDE/ALBUTEROL respimat INH INH SCH ×4 (07:52→20:44)
[2017-09-05] MEDS: GABAPENTIN 100 MG CAP PO SCH ×3 (07:53→20:48)
[2017-09-05] MEDS: ASPIRIN 81 MG ECTAB PO SCH (07:54)
[2017-09-05] MEDS: ATORVASTATIN 40 MG TAB PO SCH (07:54)
[2017-09-05] MEDS: LACTOBACILLUS ACIDOPHILUS (FLORANEX) TAB PO SCH ×3 (07:55→20:44)
[2017-09-05] MEDS: CLOPIDOGREL BISULFATE 75 MG TAB PO SCH (07:55)
[2017-09-05] MEDS: CITALOPRAM 20 MG TAB PO SCH (07:55)
[2017-09-05] MEDS: NICOTINE 21 MG/24 HR TDSY TD SCH (07:56)
[2017-09-05] MEDS: FUROSEMIDE 20 MG TAB PO SCH (07:56)
[2017-09-05] MEDS: ENOXAPARIN 40 MG/0.4 ML SYR SQ SCH (07:57)
[2017-09-05] MEDS: PANTOprazole SOD 40 MG TAB PO SCH (07:57)
[2017-09-05] MEDS: METOPROLOL TARTRATE 25 MG TAB PO SCH ×2 (08:00→20:00)
[2017-09-05 08:01] VITALS: BP 96/66; PULSE 61
[2017-09-05 08:17] VITALS: BP 100/66; PULSE 59; TEMP 36.4; O2SAT 90
[2017-09-05] MEDS: INSULIN ASPART 100 UNITS/ML 3 ML PEN SC SCH ×4 (09:16→20:53)
[2017-09-05] MEDS: INSULIN GLARGINE SOLOSTAR 100 UNITS/ML 3 ML PEN SC SCH ×2 (09:17→20:54)
[2017-09-05 15:07] VITALS: BP 109/71; PULSE 61; TEMP 36.6; O2SAT 95
--- NOTE | 2017-09-05 16:44 | Progress Note ---
Internal Med Progress Note Date of Service: Sep 05, 2017. Provider Documentation: SUBJECTIVE: The patient was seen and examined Admitted as she can not take care of herself Remains stable without any symptoms OOB in a chair Denies any symptoms OBJECTIVE: Vital Signs-as noted below Exam: General-no distress at rest Morbidly Obese Eyes-normal ENT-normal Neck-supple Lungs-clear to ausucltate bilaterally Heart-Regular Abdomen-Benign,no masses,bowel sound present Extremities-Trace edema bilaterally Neuro-AAOx3 Lab data as noted below. ASSESSMENT & PLAN: Remains stable 56 yo F with multiple chronic comorbidities and morbid obesity presents to the ER for progressive generalized weakness and the inability to care for herself in the home environment. Generalized weakness-no other symptoms Deconditioning Likely multifactorial and progressive. Needs long-term care which is being facilitated. PT/OT Awaiting placement . NO symptoms reported Chronic Respiratory Failure On Home Oxygen No acute issue Saturating well on 4 Liters [place] Oxygen No SOB at rest Morbid obesity Not been able to take care of herself Will need placement CAD s/p stent-stable, no chest pain or dyspnea. Normal EKG. Cont medical management including ASA, Plavix, Lipitor, and Lopressor Denies any symptoms Tobacco use-encouraged to quit smoking in light of need for continuous oxygen at this point from underlying COPD. Nicotine patch provided MRSA-contact precautions No acute infection DMII-inpatient glucose at goal, cont Lantus BID and ISS with carb coverage Cirrhosis of liver-ensure BM 1-2 times daily which she does report at home. Appears stable at this point. Cont Lasix as instructed. DVT proph-Lovenox Full Code Dispo-to long-term care facility Likely discharge when accepted to a facility Vital Signs: Date Time Temp Pulse Resp B/P (MAP) Pulse Ox O2 Delivery O2 Flow Rate FiO2 09/05/17 15:07 36.6 61 20 109/71 (84) 95 Nasal Cannula 4.0 09/05/17 08:17 36.4 59 20 100/66 (77) 90 Nasal Cannula 4.0 09/05/17 08:01 61 96/66 (76) 09/05/17 08:00 Nasal Cannula 4.0 09/05/17 00:00 97 Nasal Cannula 4.0 09/04/17 23:30 36.7 60 18 114/67 (83) 93 Nasal Cannula 4.0 Lab Results: Results Past 24 Hours Test 09/04/17 17:03 09/04/17 20:10 09/05/17 07:33 09/05/17 11:15 Range/Units Bedside Glucose 127 143 139 220 70-90 mg/dl
[2017-09-05 20:46] VITALS: BP 121/75; PULSE 59
[2017-09-06] VITALS: O2SAT 97
[2017-09-06 00:24] VITALS: BP 125/70; PULSE 60; TEMP 36.7; O2SAT 95
[2017-09-06] MEDS: LEVOTHYROXINE 200 MCG TAB PO SCH (07:29)
[2017-09-06] MEDS: NICOTINE 21 MG/24 HR TDSY TD SCH (07:58)
[2017-09-06 08:00] VITALS: BP 99/63; PULSE 60
[2017-09-06] MEDS: METOPROLOL TARTRATE 25 MG TAB PO SCH ×2 (08:00→20:00)
[2017-09-06] MEDS: ATORVASTATIN 40 MG TAB PO SCH (08:01)
[2017-09-06] MEDS: GABAPENTIN 100 MG CAP PO SCH ×3 (08:01→20:09)
[2017-09-06] MEDS: CITALOPRAM 20 MG TAB PO SCH (08:01)
[2017-09-06] MEDS: ASPIRIN 81 MG ECTAB PO SCH (08:01)
[2017-09-06] MEDS: PANTOprazole SOD 40 MG TAB PO SCH (08:01)
[2017-09-06] MEDS: CLOPIDOGREL BISULFATE 75 MG TAB PO SCH (08:01)
[2017-09-06] MEDS: IPRATROPIUM BROMIDE/ALBUTEROL respimat INH INH SCH ×4 (08:01→20:07)
[2017-09-06] MEDS: LACTOBACILLUS ACIDOPHILUS (FLORANEX) TAB PO SCH ×3 (08:01→20:09)
[2017-09-06] MEDS: ENOXAPARIN 40 MG/0.4 ML SYR SQ SCH (08:02)
[2017-09-06 08:22] VITALS: BP 113/72; PULSE 62; TEMP 36.3; O2SAT 93
[2017-09-06] MEDS: INSULIN GLARGINE SOLOSTAR 100 UNITS/ML 3 ML PEN SC SCH ×2 (09:00→21:02)
[2017-09-06] MEDS: INSULIN ASPART 100 UNITS/ML 3 ML PEN SC SCH ×4 (09:00→21:01)
--- NOTE | 2017-09-06 13:39 | Progress Note ---
Internal Med Progress Note Date of Service: Sep 06, 2017. Provider Documentation: SUBJECTIVE: The patient was seen and examined Admitted as she can not take care of herself Remains stable without any symptoms OOB in a chair Denies any symptoms No new complains Needs motivation to move OBJECTIVE: Vital Signs-as noted below Exam: General-no distress at rest Morbidly Obese Eyes-normal ENT-normal Neck-supple Lungs-clear to ausucltate bilaterally Heart-Regular Abdomen-Benign,no masses,bowel sound present Extremities-Trace edema bilaterally Neuro-AAOx3 Lab data as noted below. ASSESSMENT & PLAN: Remains stable 56 yo F with multiple chronic comorbidities and morbid obesity presents to the ER for progressive generalized weakness and the inability to care for herself in the home environment. Generalized weakness-no other symptoms Deconditioning Likely multifactorial and progressive. Needs long-term care which is being facilitated. PT/OT -needs motivation Awaiting placement . No symptoms reported Chronic Respiratory Failure On Home Oxygen No acute issue Saturating well on 4 Liters [place] Oxygen No SOB at rest Continue Oxygen Morbid obesity Not been able to take care of herself Will need placement CAD s/p stent-stable, no chest pain or dyspnea. Normal EKG. Cont medical management including ASA, Plavix, Lipitor, and Lopressor Denies any symptoms Tobacco use-encouraged to quit smoking in light of need for continuous oxygen at this point from underlying COPD. Nicotine patch provided MRSA-contact precautions No acute infection DMII-inpatient glucose at goal, cont Lantus BID and ISS with carb coverage Cirrhosis of liver-ensure BM 1-2 times daily which she does report at home. Appears stable at this point. Cont Lasix as instructed. DVT proph-Lovenox Full Code Dispo-to long-term care facility Likely discharge when accepted to a facility Vital Signs: Date Time Temp Pulse Resp B/P (MAP) Pulse Ox O2 Delivery O2 Flow Rate FiO2 09/06/17 08:22 36.3 62 20 113/72 (86) 93 Nasal Cannula 4.0 09/06/17 08:20 Nasal Cannula 4.0 09/06/17 08:00 60 99/63 (75) 09/06/17 00:24 36.7 60 20 125/70 (88) 95 4.0 09/06/17 00:00 97 Nasal Cannula 4.0 Humidified Oxygen 09/05/17 20:46 59 121/75 (90) 09/05/17 15:07 36.6 61 20 109/71 (84) 95 Nasal Cannula 4.0 Lab Results: Results Past 24 Hours Test 09/05/17 16:25 09/05/17 20:04 09/06/17 07:41 09/06/17 12:32 Range/Units Bedside Glucose 139 187 132 126 70-90 mg/dl
[2017-09-06 14:58] VITALS: BP 129/80; PULSE 59; TEMP 36.2; O2SAT 94
[2017-09-06 15:30] LABS: MEAN CELL VOLUME 92.2 fL (80-100); MEAN CORPUSCULAR HEMOGLOBIN 31.6 pg (25-34); MEAN CORPUSCULAR HGB CONC 34.2 g/dl (32-36); PLATELET COUNT 215 K/uL (130-400); RED BLOOD COUNT 4.12 M/uL (4.2-5.4); WHITE BLOOD COUNT 8.57 K/uL (4.8-10.8)
[2017-09-06 15:47] LABS: BUN/CREATININE RATIO 19.6 (10-20); CALCIUM 9.6 mg/dl (8.5-10.1); CREATININE 0.69 mg/dl (0.60-1.20); MAGNESIUM 1.9 mg/dl (1.8-2.4); POTASSIUM 4.2 mmol/L (3.5-5.1)
[2017-09-06 20:14] VITALS: BP 130/68; PULSE 59
[2017-09-07 00:17] VITALS: BP 132/71; PULSE 57; TEMP 36.5; O2SAT 94
[2017-09-07] MEDS: LEVOTHYROXINE 200 MCG TAB PO SCH (06:35)
[2017-09-07 07:43] VITALS: BP 144/78; PULSE 59; TEMP 36.6; O2SAT 91
[2017-09-07] MEDS: METOPROLOL TARTRATE 25 MG TAB PO SCH ×2 (08:36→20:00)
[2017-09-07] MEDS: IPRATROPIUM BROMIDE/ALBUTEROL respimat INH INH SCH ×4 (08:37→20:56)
[2017-09-07] MEDS: CITALOPRAM 20 MG TAB PO SCH (08:37)
[2017-09-07] MEDS: LACTOBACILLUS ACIDOPHILUS (FLORANEX) TAB PO SCH ×3 (08:37→20:56)
[2017-09-07] MEDS: ASPIRIN 81 MG ECTAB PO SCH (08:37)
[2017-09-07] MEDS: CLOPIDOGREL BISULFATE 75 MG TAB PO SCH (08:38)
[2017-09-07] MEDS: GABAPENTIN 100 MG CAP PO SCH ×3 (08:38→20:56)
[2017-09-07] MEDS: FUROSEMIDE 20 MG TAB PO SCH (08:38)
[2017-09-07] MEDS: PANTOprazole SOD 40 MG TAB PO SCH (08:38)
[2017-09-07] MEDS: ATORVASTATIN 40 MG TAB PO SCH (08:38)
[2017-09-07] MEDS: ENOXAPARIN 40 MG/0.4 ML SYR SQ SCH (08:39)
[2017-09-07] MEDS: NICOTINE 21 MG/24 HR TDSY TD SCH (08:39)
[2017-09-07] MEDS: INSULIN ASPART 100 UNITS/ML 3 ML PEN SC SCH ×4 (08:45→21:02)
[2017-09-07] MEDS: INSULIN GLARGINE SOLOSTAR 100 UNITS/ML 3 ML PEN SC SCH ×2 (08:46→21:03)
--- NOTE | 2017-09-07 15:47 | Progress Note ---
Internal Med Progress Note Date of Service: Sep 07, 2017. Provider Documentation: SUBJECTIVE: The patient was seen and examined Admitted as she can not take care of herself Awaiting placement No issue reported OBJECTIVE: Vital Signs-as noted below Exam: General-no distress at rest Morbidly Obese Eyes-normal ENT-normal Neck-supple Lungs-clear to ausucltate bilaterally Heart-Regular Abdomen-Benign,no masses,bowel sound present Extremities-Trace edema bilaterally Neuro-AAOx3 Lab data as noted below. ASSESSMENT & PLAN: Remains stable and denies any symptoms 56 yo F with multiple chronic comorbidities and morbid obesity presents to the ER for progressive generalized weakness and the inability to care for herself in the home environment. Generalized weakness-no other symptoms Deconditioning Likely multifactorial and progressive. Needs long-term care which is being facilitated. PT/OT -needs motivation Awaiting placement . Chronic Respiratory Failure On Home Oxygen No acute issue Saturating well on 4 Liters [place] Oxygen No SOB at rest Continue Oxygen-no desaturation Morbid obesity Not been able to take care of herself Will need placement CAD s/p stent-stable, no chest pain or dyspnea. Normal EKG. Cont medical management including ASA, Plavix, Lipitor, and Lopressor Denies any symptoms Tobacco use-encouraged to quit smoking in light of need for continuous oxygen at this point from underlying COPD. Nicotine patch provided MRSA-contact precautions No acute infection DMII-inpatient glucose at goal, cont Lantus BID and ISS with carb coverage Cirrhosis of liver-ensure BM 1-2 times daily which she does report at home. Appears stable at this point. Cont Lasix as instructed. DVT proph-Lovenox Full Code Dispo-to long-term care facility Likely discharge when accepted to a facility Vital Signs: Date Time Temp Pulse Resp B/P (MAP) Pulse Ox O2 Delivery O2 Flow Rate FiO2 09/07/17 08:57 Nasal Cannula 4.0 09/07/17 07:43 36.6 59 22 144/78 (100) 91 Nasal Cannula 4.0 Humidified Oxygen 09/07/17 01:35 Nasal Cannula 4.0 09/07/17 00:17 36.5 57 20 132/71 (91) 94 2.0 09/06/17 20:14 59 130/68 (88) 09/06/17 16:00 Nasal Cannula 4.0 Lab Results: Results Past 24 Hours Test 09/06/17 17:06 09/06/17 19:41 09/07/17 07:53 09/07/17 11:29 Range/Units Bedside Glucose 161 229 131 218 70-90 mg/dl
[2017-09-07 16:25] VITALS: BP 152/62; PULSE 59; TEMP 36.7; O2SAT 96
[2017-09-07] MEDS: ACETAMINOPHEN 325 MG TAB PO PRN (17:04)
[2017-09-07 20:53] VITALS: BP 136/72; PULSE 58
[2017-09-08 00:48] VITALS: BP 112/58; PULSE 56; TEMP 36.6; O2SAT 97
[2017-09-08] MEDS: ACETAMINOPHEN 325 MG TAB PO PRN (04:06)
[2017-09-08] MEDS: LEVOTHYROXINE 200 MCG TAB PO SCH (05:32)
[2017-09-08 07:46] VITALS: BP 115/72; PULSE 59; TEMP 36.6; O2SAT 98
[2017-09-08] MEDS: METOPROLOL TARTRATE 25 MG TAB PO SCH (08:00)
[2017-09-08] MEDS: GABAPENTIN 100 MG CAP PO SCH ×2 (08:07→12:22)
[2017-09-08] MEDS: ASPIRIN 81 MG ECTAB PO SCH (08:07)
[2017-09-08] MEDS: NICOTINE 21 MG/24 HR TDSY TD SCH (08:08)
[2017-09-08] MEDS: LACTOBACILLUS ACIDOPHILUS (FLORANEX) TAB PO SCH ×2 (08:08→12:22)
[2017-09-08] MEDS: CITALOPRAM 20 MG TAB PO SCH (08:08)
[2017-09-08] MEDS: ATORVASTATIN 40 MG TAB PO SCH (08:08)
[2017-09-08] MEDS: PANTOprazole SOD 40 MG TAB PO SCH (08:08)
[2017-09-08] MEDS: CLOPIDOGREL BISULFATE 75 MG TAB PO SCH (08:08)
[2017-09-08] MEDS: ENOXAPARIN 40 MG/0.4 ML SYR SQ SCH (08:09)
[2017-09-08] MEDS: IPRATROPIUM BROMIDE/ALBUTEROL respimat INH INH SCH ×2 (08:09→12:21)
[2017-09-08] MEDS: INSULIN GLARGINE SOLOSTAR 100 UNITS/ML 3 ML PEN SC SCH (08:17)
[2017-09-08] MEDS: INSULIN ASPART 100 UNITS/ML 3 ML PEN SC SCH ×2 (09:06→12:44)
--- NOTE | 2017-09-08 13:24 | Progress Note ---
Internal Med Progress Note Date of Service: Sep 08, 2017. Provider Documentation: SUBJECTIVE: The patient was seen and examined Admitted as she can not take care of herself Remains stable without any symptoms Denies any symptoms OBJECTIVE: Vital Signs-as noted below Exam: General-no distress at rest Morbidly Obese NO SOB Eyes-normal ENT-normal Neck-supple Lungs-clear to ausucltate bilaterally Heart-Regular Abdomen-Benign,no masses,bowel sound present Extremities-Trace edema bilaterally Neuro-AAOx3 No focal sensory and or motor deficit Lab data as noted below. ASSESSMENT & PLAN: 56 yo F with multiple chronic comorbidities and morbid obesity presents to the ER for progressive generalized weakness and the inability to care for herself in the home environment. Generalized weakness-no other symptoms Deconditioning Likely multifactorial and progressive. Needs long-term care which is being facilitated. PT/OT on board Continue Active Physical Therapy Chronic Respiratory Failure On Home Oxygen No acute issue Saturating well on 4 Liters [place] Oxygen Continue Oxygen-no desaturation Denies any increase in SOB Morbid obesity Not been able to take care of herself Will need placement Lacks motivation to do any activity CAD s/p stent-stable, no chest pain or dyspnea. Normal EKG. Cont medical management including ASA, Plavix, Lipitor, and Lopressor Denies any symptoms Tobacco use-encouraged to quit smoking in light of need for continuous oxygen at this point from underlying COPD. Nicotine patch provided MRSA-contact precautions No acute infection DMII-inpatient glucose at goal, cont Lantus BID and ISS with carb coverage Cirrhosis of liver-ensure BM 1-2 times daily which she does report at home. Appears stable at this point. Cont Lasix as instructed. DVT proph-Lovenox Full Code Dispo-to long-term care facility Discharge to [facility] today Vital Signs: Date Time Temp Pulse Resp B/P (MAP) Pulse Ox O2 Delivery O2 Flow Rate FiO2 09/08/17 09:15 Nasal Cannula 4.0 09/08/17 07:46 36.6 59 18 115/72 (86) 98 4.0 09/08/17 00:48 36.6 56 20 112/58 (76) 97 Nasal Cannula 4.0 09/08/17 00:44 Nasal Cannula 4.0 09/07/17 20:53 58 136/72 (93) 09/07/17 16:25 36.7 59 18 152/62 (92) 96 Nasal Cannula 4.0 09/07/17 16:00 Nasal Cannula 4.0 Lab Results: Results Past 24 Hours Test 09/07/17 16:36 09/07/17 19:45 09/08/17 07:42 09/08/17 11:25 Range/Units Bedside Glucose 148 184 105 142 70-90 mg/dl
[2017-09-08 13:27] VITALS: BP 115/72; PULSE 59; TEMP 36.6; O2SAT 98
[2017-09-08] MEDS ORDERED: NICO21DI4 TD (13:27)
--- NOTE | 2017-09-08 13:31 | Discharge Instructions ---
Discharge Instructions Date of Service Sep 08, 2017. Admission Reason for Admission: Weakness Discharge Discharge Diagnosis / Problem: Generalized weakness,Ambulatory dysfunction,COPD ,CAD,Obesity Discharge Goals Goal(s): Prevent Disease Progression Activity Recommendations Activity Level: Assistance Required Therapies: Physical Therapy, Occupational Therapy . Additional Information Patient informed of condition: Yes Advance Directives: No DNR: No Level of Care: Skilled Communicable Disease: No Prognosis: Stable Oxygen at (LPM): 4 liters/min via [place] Catheter: Yes (Can be taken out in 2-3 days) Current Hospital Diet Patient's current hospital diet: Diabetes Type 2 Diet, AHA Diet (Heart Healthy) Discharge Diet Recommended Diet: AHA Diet (Heart Healthy), Diabetes Type 2 Diet Fluid Restriction: 1500 ml (6 cups) Pending Studies Studies pending at discharge: no Laboratory Results Hemoglobin A1c Test 09/01/17 05:37 Range/Units Estimated Average Glucose 180 mg/dl Hemoglobin A1c 7.9 H 4.5-5.6 % Lipid Panel Test 06/30/17 05:17 Range/Units Triglycerides Level 225 H 0-150 mg/dl Cholesterol Level 172 0-200 mg/dl HDL Cholesterol 41 mg/dl Cholesterol/HDL Ratio 4.2 LDL Cholesterol, Calculated 86 mg/dl Medical Emergencies . Who to Call and When: Medical Emergencies: If at any time you feel your situation is an emergency, please call 911 immediately. . Non-Emergent Contact Non-Emergency issues call your: Primary Care Provider . Past History Medical & Surgical History: (1) Peripheral vascular disease (2) Respiratory failure, [id number] (3) Weakness (4) Obesity (5) Coronary atherosclerosis of [place] coronary vessel (6) Chronic obstructive lung disease (7) Benign hypertension (8) Cirrhosis of liver (9) DM type 2 (diabetes mellitus, type 2) (10) Morbid obesity with BMI of 40.0-44.9, adult (11) History of hysterectomy (12) S/P tonsillectomy and adenoidectomy (13) S/P cholecystectomy (14) S/P coronary artery stent placement . "Provider Documentation" section prepared by Sunni Bryson. . Core Measure Problem Core Measures: None (Consider prophylactic Anticoagulation)
[2017-09-08] MEDS ORDERED: NURSING VERBAL MED ORDER ONE (13:45)
[2017-09-08] MEDS ORDERED: FUROSEMIDE INJ 20 MG in SYRINGE 0 ML IV ONE (13:45)
--- NOTE | 2017-09-09 09:38 | Discharge Summary ---
Discharge Summary Date of Service Sep 09, 2017. Discharge Summary Admission Date: Sep 01, 2017 at 16:52 Discharge Date: Sep 08, 2017 Discharge Disposition: snf facility Principal Diagnosis: Generalized weakness,Ambulatory dysfunction,COPD,CAD,Obesity Secondary Diagnoses/Problems: Please see H&P and Hospital Progress note Medication Reconciliation New Medications: Nicotine (Nicoderm Cq) 21 Mg/24 Hr Dis 1 PATCH TD QAM for 30 Days, #30 Continued Medications: Albuterol Sulf (Proventil 0.083% 2.5MG/3ML) 2.5 Mg/3 Ml Nebu 2.5 MG INH Q4H PRN for Shortness of Breath, EA Albuterol Sulfate (Proair Respiclick) 108 Mcg/Act Aer 2 PUFFS INH Q4H PRN for Shortness of Breath Aspirin (Aspirin EC Low Dose) 81 Mg Ectab 81 MG PO DAILY Atorvastatin (Atorvastatin Calcium) 40 Mg Tab 40 MG PO DAILY Citalopram (Citalopram Hydrobromide) 20 Mg Tab 20 MG PO QAM, TAB Clopidogrel Bisulfate (Clopidogrel) 75 Mg Tab 75 MG PO DAILY Furosemide (Lasix) 20 Mg Tab 20 MG PO Q2D for 30 Days, #15 TAB 1 Refill Gabapentin (Gabapentin) 100 Mg Cap 100 MG PO TID Home O2 Therapy (Oxygen) Gas 4 LITERS NA CONTINOUS for 30 Days Insulin Glargine (Lantus Solostar) 100 Unit/Ml Inj 55 UNITS SC QAM Insulin Lispro (Human) (Humalog Kwikpen) 100 Unit/Ml Inj 24 UNITS SC AC Ipratropium-Albuterol (Combivent Respimat) 1 Aer Aer 1 PUFFS INH QID for 30 Days, #1 INH 2 Refills Lactobacillus Acidophilus (Floranex) 1 Tab Tab 1 TAB PO TID, #45 TABS 1 Refill Levothyroxine Sodium (Levothyroxine Sodium) 200 Mcg Tab 200 MCG PO DAILY Metoprolol Tartrate (Lopressor) 25 Mg Tab 12.5 MG PO BID Pantoprazole Sodium (Protonix) 20 Mg Tab 20 MG PO DAILY Admission Information HPI (per Admitting provider): 56 yo F with multiple medical issues presents to the ER for progressive weakness. She is unable to care for herself at home where she lives with her boyfriend, and of late has been unable to stand or ambulate with a walker as she had been able to 6 months ago. She was brought in by family for this, otherwise feeling well, and needs to be admitted to facilitate placement into a more long-term care situation. Although she was recently in something like this her insurance benefits ran out and she had to leave which was the reason for the discharge. Over the weekend more problems were noted. 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 She cannot reiterate any of this history. Her son and DIL fill her medication box for the week so she is not well-versed on her medications but denies any recent changes. She is morbidly obese with a very large pannus obscuring any ability to look for ascites. ROS reveals a 20 lb weight gain. She otherwise denies chest pain, SOB, abdominal pain, fevers , chills, cough, sore throat, nausea, vomiting, diarrhea or changes in her stool. 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 Status: Chronic (5) Coronary atherosclerosis of [place] coronary vessel Permanent Comment: STEMI November of 2011 treated at [facility] with a PCI to the RCA Status: Chronic (6) DM type 2 (diabetes mellitus, type 2) Status: Chronic (7) Hyperlipidemia Status: Chronic (8) Hypothyroidism Status: Chronic (9) Morbid obesity with BMI of 40.0-44.9, adult Status: Chronic (10) Peripheral vascular disease Status: Chronic (11) Pulmonary emphysema Status: Chronic (12) TOBACCO USE DISORDER Status: Chronic Surgical Problems: (1) History of hysterectomy Status: Chronic (2) S/P cholecystectomy Status: Chronic (3) S/P coronary artery stent placement Permanent Comment: 11/2011 ISABEL to RCA Status: Chronic (4) S/P tonsillectomy and adenoidectomy Status: Chronic Family History FH: diabetes mellitus BROTHER Heart disease MOTHER BROTHER Lung disease FATHER (COPD) SISTER (COPD, asthma) Social History Smoking Status: Current Every Day Smoker Smokeless Tobacco Use: No Alcohol Use: occasionally Drug Use: none Marital Status: single Housing status: lives with significant other Occupational Status: disabled Immunizations History of Influenza Vaccine: Yes Influenza Vaccine Date: Sep 27, 2016 History of Tetanus Vaccine?: Yes Tetanus Immunization Date: Jul 15, 2008 History of Pneumococcal: Yes Pneumococcal Date: Jan 05, 2008 History of Hepatitis B Vaccine: Yes Hepatitis Immunization Date: Mar 22, 2017 Multi-Drug Resistant Organisms History of MDRO: Yes Type of MDRO: MRSA Allergies Coded Allergies: Penicillins (Verified Allergy, Intermediate, RASH, 08/31/17) Home Medications Scheduled Aspirin (Aspirin EC Low Dose), 81 MG PO DAILY Atorvastatin (Atorvastatin Calcium), 40 MG PO DAILY Citalopram (Citalopram Hydrobromide), 20 MG PO QAM Clopidogrel Bisulfate (Clopidogrel), 75 MG PO DAILY Furosemide (Lasix), 20 MG PO Q2D Gabapentin (Gabapentin), 100 MG PO TID Home O2 Therapy (Oxygen), 4 LITERS NA CONTINOUS Insulin Glargine (Lantus Solostar), 55 UNITS SC QAM Insulin Lispro (Human) (Humalog Kwikpen), 24 UNITS SC AC Ipratropium-Albuterol (Combivent Respimat), 1 PUFFS INH QID Lactobacillus Acidophilus (Floranex), 1 TAB PO TID Levothyroxine Sodium (Levothyroxine Sodium), 200 MCG PO DAILY Metoprolol Tartrate (Lopressor), 12.5 MG PO BID Pantoprazole Sodium (Protonix), 20 MG PO DAILY Scheduled PRN Albuterol Sulf (Proventil 0.083% 2.5MG/3ML), 2.5 MG INH Q4H PRN for Shortness of Breath Albuterol Sulfate (Proair Respiclick), 2 PUFFS INH Q4H PRN for Shortness of Breath Review of Systems At least ten systems were reviewed and negative except as indicated in HPI. Physical Exam Vital Signs Date Time Temp Pulse Resp B/P (MAP) Pulse Ox O2 Delivery O2 Flow Rate FiO2 08/31/17 20:19 70 16 137/82 97 Room Air 4.0 08/31/17 18:40 58 16 134/78 97 Room Air 4.0 08/31/17 17:27 61 08/31/17 17:10 62 16 134/76 97 Room Air 4.0 08/31/17 15:10 58 16 131/71 97 Room Air 08/31/17 14:40 61 08/31/17 13:10 36.8 68 18 115/62 94 Nasal Cannula 4.0 General Appearance: no apparent distress, + obese Head: normocephalic, atraumatic Eyes: normal inspection, PERRL, sclerae normal ENT: hearing grossly normal, pharynx normal Neck: supple, no adenopathy, trachea midline Respiratory/Chest: chest non-tender, lungs clear, normal breath sounds, no respiratory distress, no accessory muscle use Cardiovascular: regular rate, rhythm, no edema, no gallop, no JVD, no murmur, normal peripheral pulses Abdomen/GI: normal bowel sounds, non tender, soft, + pertinent finding (large pannus with a central vertical scar/stretch edgardo inferior to umbilicus) Back: normal inspection Extremities/Musculoskelatal: normal inspection, no pedal edema Neurologic/Psych: no motor/sensory deficits (grossly), alert, normal mood/ affect (flat affect), oriented x 3 Skin: normal color, warm/dry Diagnostics Laboratory Results 08/31/17 14:56 Red Blood Count 4.72, Mean Corpuscular Volume 94.9, Mean Corpuscular Hemoglobin 31.4, Mean Corpuscular Hemoglobin Concent 33.0, Mean Platelet Volume 9.2, Neutrophils (%) (Auto) 66.3, Lymphocytes (%) (Auto) 26.6, Monocytes (%) (Auto) 4.3, Eosinophils (%) (Auto) 1.7, Basophils (%) (Auto) 0.3, Neutrophils # (Auto) 7.18, Lymphocytes # (Auto) 2.88, Monocytes # (Auto) 0.47, Eosinophils # (Auto) 0.18, Basophils # (Auto) 0.03 09/01/17 05:37 Test 08/31/17 14:56 08/31/17 15:52 09/01/17 05:37 09/01/17 07:58 White Blood Count 10.83 K/uL (4.8-10.8) Red Blood Count 4.72 M/uL (4.2-5.4) Hemoglobin 14.8 g/dL (12.0-16.0) Hematocrit 44.8 % (37-47) Mean Corpuscular Volume 94.9 fL (80-100) Mean Corpuscular Hemoglobin 31.4 pg (25-34) Mean Corpuscular Hemoglobin Concent 33.0 g/dl (32-36) Platelet Count 219 K/uL (130-400) Mean Platelet Volume 9.2 fL (7.4-10.4) Neutrophils (%) (Auto) 66.3 % Lymphocytes (%) (Auto) 26.6 % Monocytes (%) (Auto) 4.3 % Eosinophils (%) (Auto) 1.7 % Basophils (%) (Auto) 0.3 % Neutrophils # (Auto) 7.18 K/uL (1.4-6.5) Lymphocytes # (Auto) 2.88 K/uL (1.2-3.4) Monocytes # (Auto) 0.47 K/uL (0.11-0.59) Eosinophils # (Auto) 0.18 K/uL (0-0.5) Basophils # (Auto) 0.03 K/uL (0-0.2) RDW Standard Deviation 47.2 fL (36.4-46.3) RDW Coefficient of Variation 13.6 % (11.5-14.5) Immature Granulocyte % (Auto) 0.8 % Immature Granulocyte # (Auto) 0.09 K/uL (0.00-0.02) Prothrombin Time 10.4 SECONDS (9.0-12.0) Prothromb Time International Ratio 1.0 (0.9-1.1) Activated Partial Thromboplast Time 31.2 SECONDS (21.0-31.0) Partial Thromboplastin Ratio 1.2 Total Bilirubin 0.3 mg/dl (0.2-1) Direct Bilirubin 0.1 mg/dl (0-0.2) Aspartate Amino Transf (AST/SGOT) 32 U/L (15-37) Alanine Aminotransferase (ALT/SGPT) 56 U/L (12-78) Alkaline Phosphatase 244 U/L (45-117) Total Creatine Kinase 168 U/L (26-192) Creatine Kinase MB 2.5 ng/ml (0.5-3.6) Creatine Kinase MB Ratio 1.5 (0-3.0) Troponin I < 0.015 ng/ml (0-0.045) Total Protein 7.5 gm/dl (6.4-8.2) Albumin 3.0 gm/dl (3.4-5.0) Lipase 123 U/L (73-393) Thyroid Stimulating Hormone (TSH) 2.510 uIu/ml (0.300-4.500) Urine Color YELLOW Urine Appearance CLEAR (CLEAR) Urine pH 5.5 (4.5-7.5) Urine Specific Addis 1.013 (1.000-1.030) Urine Protein NEG (NEG) Urine Glucose (UA) NEG (NEG) Urine Ketones NEG (NEG) Urine Occult Blood NEG (NEG) Urine Nitrite NEG (NEG) Urine Bilirubin NEG (NEG) Urine Urobilinogen NEG (NEG) Urine Leukocyte Esterase NEG (NEG) Urine WBC (Auto) 0 /hpf (0-5) Urine RBC (Auto) 0-4 /hpf (0-4) Urine Hyaline Casts (Auto) 0 /lpf (0-5) Urine Epithelial Cells (Auto) 0-5 /lpf (0-5) Urine Bacteria (Auto) NEG (NEG) Anion Gap 5.0 mmol/L (3-11) Est Creatinine Clear Calc Drug Dose 148.0 ml/min Estimated GFR () 119.3 Estimated GFR (Non- 102.9 BUN/Creatinine Ratio 18.9 (10-20) Estimated Average Glucose 180 mg/dl Hemoglobin A1c 7.9 % (4.5-5.6) Calcium Level 9.0 mg/dl (8.5-10.1) Magnesium Level 2.1 mg/dl (1.8-2.4) Bedside Glucose 155 mg/dl (70-90) Results Past 24 Hours Test 08/31/17 14:56 08/31/17 15:52 08/31/17 22:09 Range/Units White Blood Count 10.83 4.8-10.8 K/uL Red Blood Count 4.72 4.2-5.4 M/uL Hemoglobin 14.8 12.0-16.0 g/dL Hematocrit 44.8 37-47 % Mean Corpuscular Volume 94.9 80-100 fL Mean Corpuscular Hemoglobin 31.4 25-34 pg Mean Corpuscular Hemoglobin Concent 33.0 32-36 g/dl Platelet Count 219 130-400 K/uL Mean Platelet Volume 9.2 7.4-10.4 fL Neutrophils (%) (Auto) 66.3 % Lymphocytes (%) (Auto) 26.6 % Monocytes (%) (Auto) 4.3 % Eosinophils (%) (Auto) 1.7 % Basophils (%) (Auto) 0.3 % Neutrophils # (Auto) 7.18 1.4-6.5 K/uL Lymphocytes # (Auto) 2.88 1.2-3.4 K/uL Monocytes # (Auto) 0.47 0.11-0.59 K/uL Eosinophils # (Auto) 0.18 0-0.5 K/uL Basophils # (Auto) 0.03 0-0.2 K/uL RDW Standard Deviation 47.2 36.4-46.3 fL RDW Coefficient of Variation 13.6 11.5-14.5 % Immature Granulocyte % (Auto) 0.8 % Immature Granulocyte # (Auto) 0.09 0.00-0.02 K/uL Prothrombin Time 10.4 9.0-12.0 SECONDS Prothromb Time International Ratio 1.0 0.9-1.1 Activated Partial Thromboplast Time 31.2 21.0-31.0 SECONDS Partial Thromboplastin Ratio 1.2 Sodium Level 132 136-145 mmol/L Potassium Level 4.0 3.5-5.1 mmol/L Chloride Level 94 98-107 mmol/L Carbon Dioxide Level 32 21-32 mmol/L Anion Gap 6.0 3-11 mmol/L Blood Urea Nitrogen 10 7-18 mg/dl Creatinine 0.73 0.60-1.20 mg/dl Est Creatinine Clear Calc Drug Dose 115.5 ml/min Estimated GFR () 106.0 Estimated GFR (Non- 91.4 BUN/Creatinine Ratio 14.1 10-20 Random Glucose 59 70-99 mg/dl Calcium Level 10.2 8.5-10.1 mg/dl Magnesium Level 1.7 1.8-2.4 mg/dl Total Bilirubin 0.3 0.2-1 mg/dl Direct Bilirubin 0.1 0-0.2 mg/dl Aspartate Amino Transf (AST/SGOT) 32 15-37 U/L Alanine Aminotransferase (ALT/SGPT) 56 12-78 U/L Alkaline Phosphatase 244 45-117 U/L Total Creatine Kinase 168 26-192 U/L Creatine Kinase MB 2.5 0.5-3.6 ng/ml Creatine Kinase MB Ratio 1.5 0-3.0 Troponin I < 0.015 0-0.045 ng/ml Total Protein 7.5 6.4-8.2 gm/dl Albumin 3.0 3.4-5.0 gm/dl Lipase 123 73-393 U/L Urine Color YELLOW Urine Appearance CLEAR CLEAR Urine pH 5.5 4.5-7.5 Urine Specific Addis 1.013 1.000-1.030 Urine Protein NEG NEG Urine Glucose (UA) NEG NEG Urine Ketones NEG NEG Urine Occult Blood NEG NEG Urine Nitrite NEG NEG Urine Bilirubin NEG NEG Urine Urobilinogen NEG NEG Urine Leukocyte Esterase NEG NEG Urine WBC (Auto) 0 0-5 /hpf Urine RBC (Auto) 0-4 0-4 /hpf Urine Hyaline Casts (Auto) 0 0-5 /lpf Urine Epithelial Cells (Auto) 0-5 0-5 /lpf Urine Bacteria (Auto) NEG NEG Diagnostic Radiology SINGLE VIEW CHEST CLINICAL HISTORY: Change in metal status. Weakness. FINDINGS: An AP, portable, upright chest radiograph is compared to study dated 06/29/2017 and correlated with chest CT dated 06/20/2017. The examination is degraded by portable technique, large body habitus, and patient rotation. The heart is enlarged. The pulmonary vasculature is noncongested. There are patchy airspace opacities present at both lung bases. No large pleural effusion or pneumothorax is seen. The skeletal structures are osteopenic. The bony thorax is grossly intact. IMPRESSION: 1. Cardiomegaly without radiographic evidence of congestive failure. 2. There are patchy bibasilar airspace opacities. This could represent atelectasis versus an infectious/inflammatory pneumonitis. Clinical correlation will be required. Normal EKG Impression Assessment and Plan 56 yo F with multiple chronic comorbidities and morbid obesity presents to the ER for progressive generalized weakness and the inability to care for herself in the home environment. 1. Generalized weakness-likely multifactorial and progressive. Needs long- term care which is being facilitated. PT/OT to evaluate in am. 2. Morbid obesity 3. CAD s/p stent-stable, no chest pain or dyspnea. Normal EKG. Cont medical management including ASA, Plavix, Lipitor, and Lopressor 4. Tobacco use-encouraged to quit smoking in light of need for continuous oxygen at this point from underlying COPD. Nicotine patch provided 5. h/o MRSA-contact precautions 6. DMII-inpatient glucose at goal, cont Lantus BID and ISS with carb coverage 7. cirrhosis of liver-ensure BM 1-2 times daily which she does report at home. Appears stable at this point. Cont Lasix as instructed. DVT proph-Lovenox Full Code Dispo-to long-term care facility Letty Capone DO [facility] Hospitalist Level of Care Med/Surg Advanced Directives Existing Living Will: No Existing Power of Ship'S Engineer: No Resuscitation Status FULL RESUSCITATION VTE Prophylaxis VTE Risk Assessment Done? Y/N: Yes Risk Level: Moderate Given or contraindicated: Enoxaparin (Lovenox)SQ <Electronically signed by Letty Capone DO> Signed: 09/01/17 1008 Physical Exam (per Admitting): General Appearance: no apparent distress, + obese Head: normocephalic, atraumatic Eyes: normal inspection, PERRL, sclerae normal ENT: hearing grossly normal, pharynx normal Neck: supple, no adenopathy, trachea midline Respiratory/Chest: chest non-tender, lungs clear, normal breath sounds, no respiratory distress, no accessory muscle use Cardiovascular: regular rate, rhythm, no edema, no gallop, no JVD, no murmur , normal peripheral pulses Abdomen/GI: normal bowel sounds, non tender, soft, + pertinent finding ( large pannus with a central vertical scar/stretch edgardo inferior to umbilicus) Back: normal inspection Extremities/Musculoskelatal: normal inspection, no pedal edema Neurologic/Psych: no motor/sensory deficits (grossly), alert, normal mood/ affect (flat affect), oriented x 3 Skin: normal color, warm/dry Hospital Course 56 yo F with multiple chronic comorbidities and morbid obesity presents to the ER for progressive generalized weakness and the inability to care for herself in the home environment. Generalized weakness-no other symptoms Deconditioning Likely multifactorial and progressive. Needs long-term care which is being facilitated. PT/OT on board Continue Active Physical Therapy Chronic Respiratory Failure On Home Oxygen No acute issue Saturating well on 4 Liters [place] Oxygen Continue Oxygen-no desaturation Denies any increase in SOB Morbid obesity Not been able to take care of herself Will need placement Lacks motivation to do any activity CAD s/p stent-stable, no chest pain or dyspnea. Normal EKG. Cont medical management including ASA, Plavix, Lipitor, and Lopressor Denies any symptoms Tobacco use-encouraged to quit smoking in light of need for continuous oxygen at this point from underlying COPD. Nicotine patch provided MRSA-contact precautions No acute infection DMII-inpatient glucose at goal, cont Lantus BID and ISS with carb coverage Cirrhosis of liver-ensure BM 1-2 times daily which she does report at home. Appears stable at this point. Cont Lasix as instructed. DVT proph-Lovenox Full Code Dispo-to long-term care facility Discharge to [facility] today Total time spent on discharge = 35 minutes This includes examination of the patient, discharge planning, medication reconciliation, and communication with other providers. Discharge Instructions Date of Service Sep 08, 2017. Admission Reason for Admission: Weakness Discharge Discharge Diagnosis / Problem: Generalized weakness,Ambulatory dysfunction,COPD ,CAD,Obesity Discharge Goals Goal(s): Prevent Disease Progression Activity Recommendations Activity Level: Assistance Required Therapies: Physical Therapy, Occupational Therapy . Additional Information Patient informed of condition: Yes Advance Directives: No DNR: No Level of Care: Skilled Communicable Disease: No Prognosis: Stable Oxygen at (LPM): 4 liters/min via [place] Catheter: Yes (Can be taken out in 2-3 days) Current Hospital Diet Patient's current hospital diet: Diabetes Type 2 Diet, AHA Diet (Heart Healthy) Discharge Diet Recommended Diet: AHA Diet (Heart Healthy), Diabetes Type 2 Diet Fluid Restriction: 1500 ml (6 cups) Pending Studies Studies pending at discharge: no Laboratory Results Hemoglobin A1c Test 09/01/17 05:37 Range/Units Estimated Average Glucose 180 mg/dl Hemoglobin A1c 7.9 H 4.5-5.6 % Lipid Panel Test 06/30/17 05:17 Range/Units Triglycerides Level 225 H 0-150 mg/dl Cholesterol Level 172 0-200 mg/dl HDL Cholesterol 41 mg/dl Cholesterol/HDL Ratio 4.2 LDL Cholesterol, Calculated 86 mg/dl Medical Emergencies . Who to Call and When: Medical Emergencies: If at any time you feel your situation is an emergency, please call 911 immediately. . Non-Emergent Contact Non-Emergency issues call your: Primary Care Provider . Past History Medical & Surgical History: (1) Peripheral vascular disease (2) Respiratory failure, [id number] (3) Weakness (4) Obesity (5) Coronary atherosclerosis of [place] coronary vessel (6) Chronic obstructive lung disease (7) Benign hypertension (8) Cirrhosis of liver (9) DM type 2 (diabetes mellitus, type 2) (10) Morbid obesity with BMI of 40.0-44.9, adult (11) History of hysterectomy (12) S/P tonsillectomy and adenoidectomy (13) S/P cholecystectomy (14) S/P coronary artery stent placement . "Provider Documentation" section prepared by Sunni Bryson. . Core Measure Problem Core Measures: None (Consider prophylactic Anticoagulation) <Electronically signed by Sunni Bryson M.D.> Signed: 09/08/17 9554 Additional Copies To Ren Marroquin M.D.
== END 2017-09-08 15:55 | DRG 948 ==
LOC: C.EDB 13:11 → C.4E 20:39 → ENRESERV 21:32 → OBSVTOIN 09-01 16:52
PROVIDERS: ADMIT Hospitalist; ATTEND Internal Medicine
DX: R53.1 Weakness (principal); Z68.43 Body mass index [BMI] 50.0-59.9, adult; J96.10 Chronic respiratory failure, unspecified whether with hypoxia or hypercapnia; R53.81 Other malaise; R26.2 Difficulty in walking, not elsewhere classified; R32 Unspecified urinary incontinence; J44.9 Chronic obstructive pulmonary disease, unspecified; I25.10 Atherosclerotic heart disease of native coronary artery without angina pectoris; K70.30 Alcoholic cirrhosis of liver without ascites; E11.51 Type 2 diabetes mellitus with diabetic peripheral angiopathy without gangrene; E11.42 Type 2 diabetes mellitus with diabetic polyneuropathy; E78.5 Hyperlipidemia, unspecified; I73.9 Peripheral vascular disease, unspecified; E66.01 Morbid (severe) obesity due to excess calories; F17.210 Nicotine dependence, cigarettes, uncomplicated; I25.2 Old myocardial infarction; Z95.5 Presence of coronary angioplasty implant and graft; Z99.81 Dependence on supplemental oxygen; Z86.14 Personal history of Methicillin resistant Staphylococcus aureus infection; Z79.82 Long term (current) use of aspirin; Z79.02 Long term (current) use of antithrombotics/antiplatelets; Z79.4 Long term (current) use of insulin; Z79.899 Other long term (current) drug therapy

== ENCOUNTER 2017-10-03 11:21 | Inpatient (IN) | payer OTHER ==
[~2017-10-03] VITALS: Ht 157.5 cm; Wt 129.5 kg
[2017-10-03] VITALS (37 sets, daily range): BP systolic 98–173; BP diastolic 48–89; PULSE 55–81; TEMP 36.8–36.9; O2SAT 79–98; BMI 54.6
[~2017-10-03 11:21] MED LIST changes: +CLX20 PO; +FENTANYL CITRATE 100 MCG 2 ML CARP IV ONE; -KFL500 PO; +MIDAZOLAM HCL 5 MG/ML 2ML VIAL IV ONE; +NICO21DI4 TD; -PANT20TA PO; +PANT20TA2 PO; -PRED10TA PO; +SUCCINYLCHOLINE CHLORIDE 20 MG/ML 10 ML VIAL IV ONE; -SULF-183 PO
[2017-10-03] MEDS ORDERED: METHYLPREDNISOLONE 125 MG VIAL IV STA (11:38)
[2017-10-03] MEDS ORDERED: ALBUT/IPRATROP 3MG/0.5MG NEB 3 ML VIAL INH ONE (11:45)
[2017-10-03 12:03] LABS: BASO % 0.1 %; BASO ABS # 0.01 K/uL (0-0.2); COMPLETE YES; EOS % 0.8 %; HEMATOCRIT 38.2 % (37-47); IG% 0.3 %; LYMPH % 18.3 %; LYMPH ABS # 1.35 K/uL (1.2-3.4); MEAN CELL VOLUME 97.9 fL (80-100); MEAN CORPUSCULAR HGB CONC 30.6 g/dl (32-36); MEAN PLATELET VOLUME 8.6 fL (7.4-10.4); MONO % 5.2 %; NEUT % 75.3 %; PLATELET COUNT 226 K/uL (130-400); WHITE BLOOD COUNT 7.37 K/uL (4.8-10.8)
[2017-10-03] MEDS ORDERED: ERGO500011 PO (12:07)
[2017-10-03] MEDS ORDERED: ACET-1311 PO (12:07)
[2017-10-03 12:13] LABS: PARTIAL THROMBOPLASTIN RATIO 1.2; PROTHROMBIN TIME (PATIENT) 10.5 SECONDS (9.0-12.0)
[2017-10-03 12:22] LABS: BLOOD UREA NITROGEN 16 mg/dl (7-18); CALCIUM 9.3 mg/dl (8.5-10.1); CARBON DIOXIDE 40 mmol/L (21-32); CHLORIDE 85 mmol/L (98-107); CREATININE 0.34 mg/dl (0.60-1.20); GLUCOSE 113 mg/dl (70-99); POTASSIUM 5.1 mmol/L (3.5-5.1); SODIUM 127 mmol/L (136-145)
[2017-10-03] MEDS ORDERED: OPTIRAY 320 IV PRN (12:30)
--- NOTE | 2017-10-03 12:43 | DIAGNOSTIC IMAGING REPORT ---
CHEST ONE VIEW PORTABLE HISTORY: Short of breath. COMPARISON: Chest 08/31/2017. FINDINGS: The heart is mildly enlarged. Small bilateral pleural effusions. Perihilar interstitial and vascular thickening with bibasilar densities. No pneumothorax. IMPRESSION: 1. Perihilar interstitial and vascular thickening with small bilateral pleural effusions. This likely represents pulmonary edema. 2. Bibasilar densities may be due to atelectasis from the effusions or a pneumonia. Electronically signed by: Eric Hopkins M.D. 10/03/2017 12:41 PM Dictated Date/Time: 10/03/2017 12:39 PM
[2017-10-03 13:11] LABS: ARTERIAL BLD GAS O2 SATURATION 93.8 % (90-95); ARTERIAL BLOOD GAS BASE EXCESS 8.7 mEq/L (-9-1.8); ARTERIAL BLOOD GAS HCO3 40 mmol/L (19-24); ARTERIAL BLOOD GAS PO2 83 mm/Hg (80-95); ARTERIAL BLOOD GAS pH 7.21 (7.35-7.45)
[2017-10-03 13:12] LABS: O2 ADMINISTRATION 7L
[2017-10-03 13:13] LABS: ALLEN TEST POS (POS)
--- NOTE | 2017-10-03 13:20 | DIAGNOSTIC IMAGING REPORT ---
CHEST CTA for PULMONARY ARTERIES CT DOSE: 731.95 mGy.cm HISTORY: Short of breath. TECHNIQUE: Multiaxial CT images of the chest were performed following the intravenous administration of contrast to evaluate the pulmonary arteries. Maximal intensity projection images were also obtained. A dose lowering technique was utilized adhering to the principles of ALARA. COMPARISON STUDY: Chest CT 06/21/2017. FINDINGS: Normal caliber thoracic aorta with no evidence for dissection. The heart is mildly enlarged. Small bilateral pleural effusions have increased in size. Focal dense calcification at the origin of the left subclavian artery. The majority of the segmental and subsegmental pulmonary arteries are nondiagnostic due to the motion artifact and streak artifact. However, no definite filling defects within the pulmonary arteries to suggest pulmonary mediastinal lymphadenopathy which has slightly progressed. Dominant AP window lymph node measures 1.3 x 1 cm, previously measuring 11 x 6 mm. Hepatic steatosis. The spleen is unremarkable. No suspicious lytic or blastic osseous lesions. No pneumothorax. The central airways are patent. Diffuse interlobular septal thickening. Consolidation within the bases of the bilateral lower lobes. Small amount of consolidation seen posteriorly along the right middle lobe abutting the major fissure. IMPRESSION: 1. No evidence for pulmonary embolus with limitations as described above. 2. Cardiomegaly, small bilateral pleural effusions, and interlobular septal thickening. This is consistent with moderate pulmonary edema. 3. Consolidation seen within the base of the bilateral lower lobes. This favors atelectasis from the pleural effusions. However, a pneumonia could also have a similar appearance. 3. Mild mediastinal lymphadenopathy. This could be reactive. Electronically signed by: Eric Hopkins M.D. 10/03/2017 1:18 PM Dictated Date/Time: 10/03/2017 1:10 PM
--- NOTE | 2017-10-03 14:35 | EMERGENCY ROOM VISIT NOTE ---
History Report prepared by Tom: Froy Estevez Under the Supervision of: Dr. Vineet Elizabeth M.D. First contact with patient: 11:32 Stated Complaint: SOB History of Present Illness The patient is a 56 year old female who presents to the Emergency Room with complaints of worsening shortness of breath that began two days ago. This HPI is limited secondary to the patient's respiratory distress. She has a past medical history of COPD. Since this past weekend, she has been having increased trouble breathing. She is normally on 2L of oxygen at all times, but they recently placed her onto 6L. She is also experiencing chest tightness, a cough, and generalized weakness. She denies any other pains or abnormal symptoms. Source of History: patient History Limited By: other (Respiratory Distress) Onset: two days ago Position: other (Respiratory system) Symptom Intensity: moderate Quality: other (Shortness of breath) Timing: worsening Associated Symptoms: + fevers, + cough, + chest pain (tightness), + weakness (generalized), No headache, No neck pain, No abdominal pain, No back pain Review of Systems ROS is limited secondary to the patient's respiratory distress. Past Medical & Surgical Medical Problems: (1) Asthma (2) Benign hypertension (3) Chronic obstructive lung disease (4) Cirrhosis of liver (5) Coronary atherosclerosis of inupiat coronary vessel (6) DM type 2 (diabetes mellitus, type 2) (7) Hyperlipidemia (8) Hypothyroidism (9) Morbid obesity with BMI of 40.0-44.9, adult (10) Obesity (11) Peripheral vascular disease (12) Pulmonary emphysema (13) Respiratory failure, [id number] (14) TOBACCO USE DISORDER Surgical Problems: (1) History of hysterectomy (2) S/P cholecystectomy (3) S/P coronary artery stent placement (4) S/P tonsillectomy and adenoidectomy Family History FH: diabetes mellitus BROTHER Heart disease MOTHER BROTHER Lung disease FATHER (COPD) SISTER (COPD, asthma) Social History Smoking Status: Current Every Day Smoker Alcohol Use: none Drug Use: none Marital Status: single Housing Status: lives with family Occupation Status: disabled Current/Historical Medications Scheduled Acetaminophen (Tylenol), 650 MG PO Q12 Aspirin (Aspirin EC Low Dose), 81 MG PO DAILY Atorvastatin (Atorvastatin Calcium), 40 MG PO DAILY Citalopram (Citalopram Hydrobromide), 20 MG PO QAM Clopidogrel Bisulfate (Clopidogrel), 75 MG PO DAILY Ergocalciferol (Vitamin D 12733 Unit), 1 TAB PO WK Furosemide (Lasix), 20 MG PO Q2D Gabapentin (Gabapentin), 100 MG PO TID Home O2 Therapy (Oxygen), 4 LITERS NA CONTINOUS Insulin Glargine (Lantus Solostar), 55 UNITS SC QAM Insulin Lispro (Human) (Humalog Kwikpen), 24 UNITS SC TID Ipratropium-Albuterol (Combivent Respimat), 1 PUFFS INH QID Lactobacillus Acidophilus (Floranex), 1 TAB PO TID Levothyroxine Sodium (Levothyroxine Sodium), 200 MCG PO DAILY Metoprolol Tartrate (Lopressor), 12.5 MG PO BID Pantoprazole Sodium (Protonix), 20 MG PO DAILY Scheduled PRN Albuterol Sulf (Proventil 0.083% 2.5MG/3ML), 2.5 MG INH Q4H PRN for Shortness of Breath Albuterol Sulfate (Proair Respiclick), 2 PUFFS INH Q4H PRN for Shortness of Breath Allergies Coded Allergies: Penicillins (Verified Allergy, Intermediate, RASH, 08/31/17) Physical Exam Vital Signs Date Time Temp Pulse Resp B/P (MAP) Pulse Ox O2 Delivery O2 Flow Rate FiO2 10/03/17 14:11 90 BiPAP 40 10/03/17 14:02 67 18 109/47 96 BiPAP 60 10/03/17 14:02 61 92 50 10/03/17 13:33 64 96 60 10/03/17 13:05 61 20 135/63 95 Nebulizer 7.0 10/03/17 12:51 63 20 93 Nebulizer 10/03/17 12:32 129/55 10/03/17 12:31 60 26 96 Nebulizer 10/03/17 12:26 58 20 93 10/03/17 12:21 57 29 93 10/03/17 12:16 57 18 95 10/03/17 12:11 57 19 95 10/03/17 12:09 99/56 10/03/17 12:07 58 10/03/17 12:06 57 18 95 10/03/17 12:05 57 20 99/56 96 Nebulizer 10/03/17 12:01 59 22 93 10/03/17 11:57 61 20 92 Nasal Cannula 6.0 10/03/17 11:44 36.5 62 26 134/57 93 Nasal Cannula 6.0 10/03/17 11:44 93 Nasal Cannula 6.0 10/03/17 11:40 93 Nasal Cannula 6.0 10/03/17 11:26 134/57 Physical Exam Constitutional: Vital signs reviewed. The patient is in respiratory distress and unable to speak in full sentences. Eyes: Pupils are equal round reactive to light. Conjunctiva are noninjected. ENT: Pharynx is clear without erythema or exudate. Mucous membranes are moist. Neck supple without meningeal signs. Respiratory: Poor air entry bilaterally. Coughing throughout the exam. Pulse ox is 88% on 4L. Cardiovascular: Regular rate and rhythm. No rubs or gallops. GI: Soft, nondistended and nontender. Bowel sounds are present. Musculoskeletal: No peripheral edema. No lower extremity tenderness. Integumentary: No cyanosis. Neurological: The patient is awake and alert. Psychiatric: Unable to assess. Medical Decision & Procedures ER Provider Diagnostic Interpretation: Radiology results as stated below per my review and the radiologist's interpretation: CHEST ONE VIEW PORTABLE HISTORY: Short of breath. COMPARISON: Chest 08/31/2017. FINDINGS: The heart is mildly enlarged. Small bilateral pleural effusions. Perihilar interstitial and vascular thickening with bibasilar densities. No pneumothorax. IMPRESSION: 1. Perihilar interstitial and vascular thickening with small bilateral pleural effusions. This likely represents pulmonary edema. 2. Bibasilar densities may be due to atelectasis from the effusions or a pneumonia. Electronically signed by: Eric Hopkins M.D. 10/03/2017 12:41 PM Dictated Date/Time: 10/03/2017 12:39 PM CHEST CTA for PULMONARY ARTERIES CT DOSE: 731.95 mGy.cm HISTORY: Short of breath. TECHNIQUE: Multiaxial CT images of the chest were performed following the intravenous administration of contrast to evaluate the pulmonary arteries. Maximal intensity projection images were also obtained. A dose lowering technique was utilized adhering to the principles of ALARA. COMPARISON STUDY: Chest CT 06/21/2017. FINDINGS: Normal caliber thoracic aorta with no evidence for dissection. The heart is mildly enlarged. Small bilateral pleural effusions have increased in size. Focal dense calcification at the origin of the left subclavian artery. The majority of the segmental and subsegmental pulmonary arteries are nondiagnostic due to the motion artifact and streak artifact. However, no definite filling defects within the pulmonary arteries to suggest pulmonary mediastinal lymphadenopathy which has slightly progressed. Dominant AP window lymph node measures 1.3 x 1 cm, previously measuring 11 x 6 mm. Hepatic steatosis. The spleen is unremarkable. No suspicious lytic or blastic osseous lesions. No pneumothorax. The central airways are patent. Diffuse interlobular septal thickening. Consolidation within the bases of the bilateral lower lobes. Small amount of consolidation seen posteriorly along the right middle lobe abutting the major fissure. IMPRESSION: 1. No evidence for pulmonary embolus with limitations as described above. 2. Cardiomegaly, small bilateral pleural effusions, and interlobular septal thickening. This is consistent with moderate pulmonary edema. 3. Consolidation seen within the base of the bilateral lower lobes. This favors atelectasis from the pleural effusions. However, a pneumonia could also have a similar appearance. 3. Mild mediastinal lymphadenopathy. This could be reactive. Electronically signed by: Eric Hopkins M.D. 10/03/2017 1:18 PM Dictated Date/Time: 10/03/2017 1:10 PM Laboratory Results 10/03/17 11:37 Red Blood Count 3.90, Mean Corpuscular Volume 97.9, Mean Corpuscular Hemoglobin 30.0, Mean Corpuscular Hemoglobin Concent 30.6, Mean Platelet Volume 8.6, Neutrophils (%) (Auto) 75.3, Lymphocytes (%) (Auto) 18.3, Monocytes (%) (Auto) 5.2, Eosinophils (%) (Auto) 0.8, Basophils (%) (Auto) 0.1, Neutrophils # (Auto) 5.55, Lymphocytes # (Auto) 1.35, Monocytes # (Auto) 0.38, Eosinophils # (Auto) 0.06, Basophils # (Auto) 0.01 10/03/17 11:37 Test 10/03/17 11:37 10/03/17 12:59 10/03/17 14:01 White Blood Count 7.37 K/uL (4.8-10.8) Red Blood Count 3.90 M/uL (4.2-5.4) Hemoglobin 11.7 g/dL (12.0-16.0) Hematocrit 38.2 % (37-47) Mean Corpuscular Volume 97.9 fL (80-100) Mean Corpuscular Hemoglobin 30.0 pg (25-34) Mean Corpuscular Hemoglobin Concent 30.6 g/dl (32-36) Platelet Count 226 K/uL (130-400) Mean Platelet Volume 8.6 fL (7.4-10.4) Neutrophils (%) (Auto) 75.3 % Lymphocytes (%) (Auto) 18.3 % Monocytes (%) (Auto) 5.2 % Eosinophils (%) (Auto) 0.8 % Basophils (%) (Auto) 0.1 % Neutrophils # (Auto) 5.55 K/uL (1.4-6.5) Lymphocytes # (Auto) 1.35 K/uL (1.2-3.4) Monocytes # (Auto) 0.38 K/uL (0.11-0.59) Eosinophils # (Auto) 0.06 K/uL (0-0.5) Basophils # (Auto) 0.01 K/uL (0-0.2) RDW Standard Deviation 47.8 fL (36.4-46.3) RDW Coefficient of Variation 13.4 % (11.5-14.5) Immature Granulocyte % (Auto) 0.3 % Immature Granulocyte # (Auto) 0.02 K/uL (0.00-0.02) Prothrombin Time 10.5 SECONDS (9.0-12.0) Prothromb Time International Ratio 1.0 (0.9-1.1) Activated Partial Thromboplast Time 30.4 SECONDS (21.0-31.0) Partial Thromboplastin Ratio 1.2 Anion Gap 1.0 mmol/L (3-11) Est Creatinine Clear Calc Drug Dose 242.6 ml/min Estimated GFR () 141.4 Estimated GFR (Non- 122.0 BUN/Creatinine Ratio 46.0 (10-20) Calcium Level 9.3 mg/dl (8.5-10.1) Pro-B-Type Natriuretic Peptide 1014 pg/ml (0-900) Arterial Blood pH 7.21 (7.35-7.45) Arterial Blood Partial Pressure CO2 103 mmHg (35-46) Arterial Blood Partial Pressure O2 83 mm/Hg (80-95) Arterial Blood HCO3 40 mmol/L (19-24) Arterial Blood Oxygen Saturation 93.8 % (90-95) Arterial Blood Base Excess 8.7 mEq/L (-9-1.8) Arterial Blood Gas Delivery 7L Alon Test POS (POS) Creatine Kinase MB Ratio (0-3.0) Laboratory results as reviewed by me. Medications Administered Medications (Trade) Dose Ordered Sig/Abdi Route Start Time Stop Time Status Last Admin Dose Admin Albuterol/ Ipratropium (Duoneb) 12 ml ONE ONCE INH 10/03/17 11:45 10/03/17 11:46 DC 10/03/17 11:57 12 ML Methylprednisolone Sodium Succinate (Solu-Medrol IV) 125 mg NOW STAT IV 10/03/17 11:38 10/03/17 11:42 DC 10/03/17 12:05 125 MG ECG Indication: SOB/dyspnea Rate (beats per minute): 68 Rhythm: sinus rhythm Findings: 1st degree AV block, no acute ischemic change, no ectopy ED Course 1132: The patient was evaluated in room C6. A complete history and physical exam was performed. 1138: Ordered Solu-Medrol IV 125 mg IV 1145; Ordered DuoNeb 12 ml INH 1234: The patient became unresponsive after her x-ray. I attempted to arouse the patient multiple times with sternal rub, painful stimuli, and verbal commands. While the patient was being moved to A1 for potential intubation, she patient woke up. She is still confused but opens her eyes. Her breath sounds show improved air entry bilaterally. 1325: The patient is still awake. We will attempt BiPAP on her to avoid intubation. Her CO2 is 103. 1339: Upon reevaluation, she is now on BiPAP. Her oxygen saturation is 98%. She is awake and alert. 1344: [facility] the patient and her results. The patient will be further evaluated by her for further management and care. Medical Decision This is a 56-year-old female presents with shortness of breath. Differential diagnosis includes COPD exacerbation, CHF exacerbation, pulmonary edema, pulmonary embolism, acute coronary syndrome, hypoxia, hypercapnia. I did perform a limited focused review of portions of the patient's old chart on the electronic medical record. The patient was treated as an inpatient in this facility on September 01 for weakness and COPD exacerbation. I did evaluate the patient as noted above. The patient is presenting in respiratory distress. She is unable to speak in full sentences IV access was established. The patient was placed on a continuous panel monitor. I did treat her with an hour-long continuous nebulizer with albuterol and Atrovent. She was also given Solu-Medrol 125 mg IV. I did order and personally review the patient's 12-lead EKG and chest x-ray as described above. After getting her x-ray the patient became obtunded. She was not responding to verbal commands or painful stimuli or sternal rub. The patient was moved to room A1 in anticipation of rapid sequence intubation. When she got there the patient became suddenly awake and alert and so the intubation was canceled. I did order a CT of the chest. I did review the images myself as well as the radiology report as described above. There is no evidence of pulmonary embolism. I did reassess the patient. She remains awake and alert but still in having trouble breathing. Her air entry, however, did improve significantly. I did place her on BiPAP I did order and review the patient's blood work as noted in the electronic medical record. She does have restricted acidosis with hypercapnia. I did reassess the patient again. She states that she is feeling better but points to her left leg and indicates pain in that area. I did discuss the case with the hospitalist and case checker for admission to the hospital. Medication Reconcilliation Current Medication List: was personally reviewed by me Blood Pressure Screening Patient's blood pressure: Elevated blood pressure (Reactive) Blood pressure disposition: Referred to PCP Consults Time Called: 1340 Consulting Physician: Dr. Timothy Patricia Hospitalist Returned Call: [phone] We discussed the patient's case. She will be evaluating the patient for further management and care. Impression Primary Impression: Respiratory failure Additional Impressions: Respiratory acidosis Hypercapnemia COPD exacerbation Hyponatremia Critical Care I have personally spent 38 minutes of critical care time in the direct management of this patient. This includes bedside care, interpretation of diagnostic studies and testing, discussion with consultants and patient, and other required patient management activities. This time is in excess of all separately billable procedures. Scribe Attestation The scribe's documentation has been prepared under my direct and personally reviewed by me in its entirety. I confirm that the note above accurately reflects all work, treatment, procedures, and medical decision making performed by me. Departure Information Dispostion Being Evaluated By Hospitalist Referrals Guanako Sandoval (PCP) Problem Qualifiers Primary Impression: Respiratory failure Chronicity: acute Respiratory failure complication: hypercapnia Qualified Codes: J96.02 - Acute respiratory failure with hypercapnia
[2017-10-03] MEDS ORDERED: GLUCOSE 40% GEL 15 GM TUBE PO PRN (15:15)
[2017-10-03] MEDS ORDERED: DEXTROSE 50% 50 ML SYR IV PRN (15:15)
[2017-10-03] MEDS ORDERED: GLUCAGON FOR INJ 1 MG VIAL SQ PRN (15:15)
[2017-10-03] MEDS ORDERED: GLUCOSE 10 TABS/TUBE PO PRN (15:15)
[2017-10-03] MEDS ORDERED: PHARMACY GLYCEMIC MGMT CONSULT PRN (15:26)
--- NOTE | 2017-10-03 15:30 | History and Physical ---
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 Per discussion with [facility] nurse, the patient was at her baseline on Tuesday (A&Ox3, communicative, requires a [place] for transfer). This morning, the patient was complaining of SOB but O2 saturation on 2L NC was 95%. Ate breakfast without a problem. A few hours later , was found to be in respiratory distress, using accessory muscles with an O2 saturation of 84%. Now also complained of chest pain. The facility increased her O2 to 6L and then transported the patient via ambulance for further evaluation in the ER. Per ER physician note, patient was communicative during exam but somewhat confused. Became unresponsive after X-ray. Was not responsive to sternal rub, painful stimuli and verbal commands, so team began to prepare for intubation. At this point patient woke up and was responsive to verbal commands, able to open eyes. Was started on bipap and O2 saturation improved to 90%. Patient somnolent during exam, sleeping intermittently, so ROS is limited. Was able to communicate that she has been taking her medications regularly but has felt sick for a few days with a URI. Patient was admitted one month ago for weakness and COPD exacerbation. Was discharged to [facility], where she currently resides. 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 Status: Chronic (5) Coronary atherosclerosis of [place] coronary vessel Permanent Comment: STEMI November of 2011 treated at [facility] with a PCI to the RCA Status: Chronic (6) DM type 2 (diabetes mellitus, type 2) Status: Chronic (7) Hyperlipidemia Status: Chronic (8) Hypothyroidism Status: Chronic (9) Morbid obesity with BMI of 40.0-44.9, adult Status: Chronic (10) Peripheral vascular disease Status: Chronic (11) Pulmonary emphysema Status: Chronic (12) TOBACCO USE DISORDER Status: Chronic Surgical Problems: (1) History of hysterectomy Status: Chronic (2) S/P cholecystectomy Status: Chronic (3) S/P coronary artery stent placement Permanent Comment: 11/2011 ISABEL to RCA Status: Chronic (4) S/P tonsillectomy and adenoidectomy Status: Chronic Family History FH: diabetes mellitus BROTHER Heart disease MOTHER BROTHER Lung disease FATHER (COPD) SISTER (COPD, asthma) Social History Smoking Status: Current Every Day Smoker Drug Use: none Marital Status: single Housing status: assisted Occupational Status: disabled Immunizations History of Influenza Vaccine: Yes Influenza Vaccine Date: Sep 27, 2016 History of Tetanus Vaccine?: Yes Tetanus Immunization Date: Jul 15, 2008 History of Pneumococcal: Yes Pneumococcal Date: Jan 05, 2008 History of Hepatitis B Vaccine: Yes Hepatitis Immunization Date: Mar 22, 2017 Multi-Drug Resistant Organisms History of MDRO: Yes Type of MDRO: MRSA Allergies Coded Allergies: Penicillins (Verified Allergy, Intermediate, RASH, 08/31/17) Home Medications Scheduled Acetaminophen (Tylenol), 650 MG PO Q12 Aspirin (Aspirin EC Low Dose), 81 MG PO DAILY Atorvastatin (Atorvastatin Calcium), 40 MG PO DAILY Citalopram (Citalopram Hydrobromide), 20 MG PO QAM Clopidogrel Bisulfate (Clopidogrel), 75 MG PO DAILY Ergocalciferol (Vitamin D 04766 Unit), 1 TAB PO WK Furosemide (Lasix), 20 MG PO Q2D Gabapentin (Gabapentin), 100 MG PO TID Home O2 Therapy (Oxygen), 4 LITERS NA CONTINOUS Insulin Glargine (Lantus Solostar), 55 UNITS SC QAM Insulin Lispro (Human) (Humalog Kwikpen), 24 UNITS SC TID Ipratropium-Albuterol (Combivent Respimat), 1 PUFFS INH QID Lactobacillus Acidophilus (Floranex), 1 TAB PO TID Levothyroxine Sodium (Levothyroxine Sodium), 200 MCG PO DAILY Metoprolol Tartrate (Lopressor), 12.5 MG PO BID Pantoprazole Sodium (Protonix), 20 MG PO DAILY Scheduled PRN Albuterol Sulf (Proventil 0.083% 2.5MG/3ML), 2.5 MG INH Q4H PRN for Shortness of Breath Albuterol Sulfate (Proair Respiclick), 2 PUFFS INH Q4H PRN for Shortness of Breath Review of Systems Unable to review ROS due to patient's somnolence, on bipap. Physical Exam Vital Signs Date Time Temp Pulse Resp B/P (MAP) Pulse Ox O2 Delivery O2 Flow Rate FiO2 10/03/17 15:11 66 90 50 10/03/17 14:11 90 BiPAP 40 10/03/17 14:02 67 18 109/47 96 BiPAP 60 10/03/17 14:02 61 92 50 10/03/17 13:33 64 96 60 10/03/17 13:05 61 20 135/63 95 Nebulizer 7.0 10/03/17 12:51 63 20 93 Nebulizer 10/03/17 12:32 129/55 10/03/17 12:31 60 26 96 Nebulizer 10/03/17 12:26 58 20 93 10/03/17 12:21 57 29 93 10/03/17 12:16 57 18 95 10/03/17 12:11 57 19 95 10/03/17 12:09 99/56 10/03/17 12:07 58 10/03/17 12:06 57 18 95 10/03/17 12:05 57 20 99/56 96 Nebulizer 10/03/17 12:01 59 22 93 10/03/17 11:57 61 20 92 Nasal Cannula 6.0 10/03/17 11:44 36.5 62 26 134/57 93 Nasal Cannula 6.0 10/03/17 11:44 93 Nasal Cannula 6.0 10/03/17 11:40 93 Nasal Cannula 6.0 10/03/17 11:26 134/57 General Appearance: + obese, + pertinent finding (Sleeping on exam. Arousable to painful stimuli.) Head: normocephalic, atraumatic Eyes: normal inspection, PERRL, sclerae normal (conjunctiva normal ) ENT: hearing grossly normal, + pertinent finding (on bipap) Neck: supple, trachea midline Respiratory/Chest: chest non-tender, + respiratory distress, + rhonchi, + wheezing Cardiovascular: regular rate, rhythm, no murmur, + pertinent finding ( Diminished DP pulses bilaterally ) Abdomen/GI: normal bowel sounds, non tender, soft, no organomegaly Back: normal inspection Extremities/Musculoskelatal: normal inspection, no calf tenderness, no pedal edema Neurologic/Psych: + pertinent finding (Somnolent. Able to nod and follow verbal commands. ) Skin: normal color, warm/dry, no rash Diagnostics Laboratory Results Results Past 24 Hours Test 10/03/17 11:37 10/03/17 12:59 10/03/17 14:01 10/03/17 14:44 Range/Units White Blood Count 7.37 4.8-10.8 K/uL Red Blood Count 3.90 4.2-5.4 M/uL Hemoglobin 11.7 12.0-16.0 g/dL Hematocrit 38.2 37-47 % Mean Corpuscular Volume 97.9 80-100 fL Mean Corpuscular Hemoglobin 30.0 25-34 pg Mean Corpuscular Hemoglobin Concent 30.6 32-36 g/dl Platelet Count 226 130-400 K/uL Mean Platelet Volume 8.6 7.4-10.4 fL Neutrophils (%) (Auto) 75.3 % Lymphocytes (%) (Auto) 18.3 % Monocytes (%) (Auto) 5.2 % Eosinophils (%) (Auto) 0.8 % Basophils (%) (Auto) 0.1 % Neutrophils # (Auto) 5.55 1.4-6.5 K/uL Lymphocytes # (Auto) 1.35 1.2-3.4 K/uL Monocytes # (Auto) 0.38 0.11-0.59 K/uL Eosinophils # (Auto) 0.06 0-0.5 K/uL Basophils # (Auto) 0.01 0-0.2 K/uL RDW Standard Deviation 47.8 36.4-46.3 fL RDW Coefficient of Variation 13.4 11.5-14.5 % Immature Granulocyte % (Auto) 0.3 % Immature Granulocyte # (Auto) 0.02 0.00-0.02 K/uL Prothrombin Time 10.5 9.0-12.0 SECONDS Prothromb Time International Ratio 1.0 0.9-1.1 Activated Partial Thromboplast Time 30.4 21.0-31.0 SECONDS Partial Thromboplastin Ratio 1.2 Sodium Level 127 136-145 mmol/L Potassium Level 5.1 3.5-5.1 mmol/L Chloride Level 85 98-107 mmol/L Carbon Dioxide Level 40 21-32 mmol/L Anion Gap 1.0 3-11 mmol/L Blood Urea Nitrogen 16 7-18 mg/dl Creatinine 0.34 0.60-1.20 mg/dl Est Creatinine Clear Calc Drug Dose 242.6 ml/min Estimated GFR () 141.4 Estimated GFR (Non- 122.0 BUN/Creatinine Ratio 46.0 10-20 Random Glucose 113 70-99 mg/dl Calcium Level 9.3 8.5-10.1 mg/dl Troponin I < 0.015 0-0.045 ng/ml Pro-B-Type Natriuretic Peptide 1014 0-900 pg/ml Arterial Blood pH 7.21 7.35-7.45 Arterial Blood Partial Pressure CO2 103 35-46 mmHg Arterial Blood Partial Pressure O2 83 80-95 mm/Hg Arterial Blood HCO3 40 19-24 mmol/L Arterial Blood Oxygen Saturation 93.8 90-95 % Arterial Blood Base Excess 8.7 -9-1.8 mEq/L Arterial Blood Gas Delivery 7L Alon Test POS POS Creatine Kinase MB Ratio 0-3.0 Microbiology Results 10/03/17 Blood Culture, Received Pending 10/03/17 Blood Culture, Received Pending Diagnostic Radiology CXR: 1. Perihilar interstitial and vascular thickening with small bilateral pleural effusions. This likely represents pulmonary edema. 2. Bibasilar densities may be due to atelectasis from the effusions or a pneumonia. Chest thorax CTA: 1. No evidence for pulmonary embolus with limitations as described above. 2. Cardiomegaly, small bilateral pleural effusions, and interlobular septal thickening. This is consistent with moderate pulmonary edema. 3. Consolidation seen within the base of the bilateral lower lobes. This favors atelectasis from the pleural effusions. However, a pneumonia could also have a similar appearance. 3. Mild mediastinal lymphadenopathy. This could be reactive. EKG Sinus rhythm with 1st degree A-V block Cannot rule out Anterior infarct , age undetermined Abnormal ECG When compared with ECG of 31-AUG-2017 14:37, [place] interval has increased Confirmed by Warren Hooker Also reviewed by me. 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 Acute on chronic hypoxic and hypercapnic respiratory failure: -2/2 COPD exacerbation from URI vs. PNA -Initial ABG with respiratory acidosis with poor compensation -pH of 7.21, pco2 of 103, bicarb of 40 -CXR with bibasilar densities (atelectasis vs. PNA) -Levaquin for empirical coverage -No PE on chest/thorax CTA -Case discussed with correctional manager -Continue bipap -Repeat ABG q4H -Blood, sputum cx pending -NPO COPD exacerbation: -2/2 to URI vs PNA -Continue IV solu-medrol -Xopenex nebs scheduled q4H -Levoquin for empirical coverage Metabolic encephalopathy: -Likely 2/2 hypercarbia -Expected improvement on BiPAP -No leukocytosis, UA pending -Ammonia level pending Chest pain: -Per initial interview, CP is central, non-radiating -No clear source of pain on my exam -H/o STEMI (s/p stent) -R/o ACS; risk factors: DM II, CAD, HLD, current smoker -Initial troponin negative, EKG without ischemic changes -CXR with pulmonary edema, possible bibasilar PNA -Trend serial cardiac enzymes -Check echo -Repeat EKG in AM DM II: -Held home agents -Glycemic consult placed in setting of IV steroids -Pharmacy to initiate insulin infusion -Hgb a1c pending Hyponatremia: -Na of 127 -Serum osm, urine osm pending -Correction per correctional manager HLD: -Continue statin CAD (s/p stent): -Continue aspirin, plavix, statin HTN: -Continue metoprolol Cirrhosis 2/2 AIH: -CMP pending DVT Ppx: Heparin SQ Code status: FULL PCP: Jaime, Cara Dispo: SW consulted to help with discharge placement back to [facility] Patient seen in collaboration with Dr. Aguirre. Please see addendum. ATTENDING ADDENDUM : 56 yo F with hx of COPD on 2 L 02 , sent form [facility] -for unresponsiveness, hypoxia, ABG shows respiratory acidosis with hypercapnia pt became unresponsive in ER , was planning for intubation while on Bipap -pt able to wake up still lethargic pt seen in ER room A1 on Bipap spo2 in 90% opens eyes to voice , minimally verbal d/w correctional manager pt will be admitted to ICU p/e: Gen : obese -somnolent , arousable on Bipap Lungs: diminished air entry , scattered wheeze HT ; regular abdomen ; soft ext ; trace edema neuro : lethargic, wakes up briefly to voice and sternal rub A/P : Acute Hypoxemic Respiratory Failure : possible to due to COPD exacerbation and underlying pneumonia -Cxray -bibasilar atelectasis CT chest negative for PE on Bipap initial ABG shows respiratory acidosis with Co2 retention admit to Tele repeat ABG ordered in 1 hr may in intubation/mechanical ventilation if respiratory status does not improves Case D/w director of collections and archives correctional manager please refer to H&P by Vicki Frank PA-C for further discussion of other issues total Critical time spent > 30 mins Angela Aguirre MD Level of Care Critical Care Resuscitation Status FULL RESUSCITATION VTE Prophylaxis VTE Risk Assessment Done? Y/N: Yes Risk Level: Moderate Given or contraindicated: Unfractionated heparin SQ Social Service Consult Lives in Skilled Nursing
[2017-10-03 15:36] LABS: URINE APPEARANCE CLOUDY (CLEAR); URINE BILIRUBIN NEG (NEG); URINE COLOR YELLOW; URINE NITRITE POS (NEG); URINE SPECIFIC GRAVITY 1.027 (1.000-1.030); UROBILINOGEN NEG (NEG); ZZURINE CULT IF INDIC CATH YES
[2017-10-03 15:38] LABS: MANUAL MICROSCOPIC REQUIRED? NO; REVIEW REQ? YES
[2017-10-03] MEDS ORDERED: INSULIN IV INFUSION PROTOCOL SCH (15:43)
[2017-10-03 15:45] LABS: SULFASALICYLIC ACID POS (NEG)
[2017-10-03] MEDS ORDERED: INSULIN PROTOCOL GOAL RANGE ONE (15:45)
[2017-10-03] MEDS ORDERED: MODERATE STRESS LEVEL ONE (15:45)
[2017-10-03] MEDS ORDERED: LEVOFLOXACIN CONSULT ACTIVE PRN (15:45)
--- NOTE | 2017-10-03 15:50 | Critical Care Consultation ---
Critical Care Consultation Date of Consultation: Oct 03, 2017. Attending Physician: Reason for Consultation: Hypercapnic respiratory failure. History of Present Illness She suffers from underlying COPD/Emphysema secondary to tobacco abuse, obesity with hypoventilation, DM, ASCAD --RCA-stent, PAD with hx Osteo, Cirrhosis--? autoimmune. Secondary to deconditioning and very poor performance has been living in a SNF. Developed progressive decline in respiratory status. ER evaluation disclosed respiratory acidosis in the setting of chronic respiratory acidosis/metabolic alkalosis. BiPAP support was instituted with improvement of her general lethargy. Several days of malaise and general decline preceded her presentation. Exam noteworthy for poor exchange. Imaging suggested ? pneumonia vs atelectasis. In addition to BiPAP support she was treated with antibiotics, steroids and inhaled bronchodilators. Secondary to the acidosis and respiratory depression a stay in the ICU was determined appropriate. On evaluation she is lethargic but easily aroused with verbal questioning. No clear target pain at the time of my evaluation. No focal neuro changes. I spoke with the hospitalist regarding her care and evaluation today. Past Medical/Surgical History -Asthma/COPD/Emphysema -obesity -Hypercapnia -DM -Cirrhosis--? ABDI,Autoimmune -ASCAD--RCA -Osteomyelitis -PAD Family History FH: diabetes mellitus BROTHER Heart disease MOTHER BROTHER Lung disease FATHER (COPD) SISTER (COPD, asthma) Social History Smoking Status: Current Every Day Smoker Drug Use: none Marital Status: single Housing Status: lives with family Occupation Status: disabled Allergies Coded Allergies: Penicillins (Verified Allergy, Intermediate, RASH, 08/31/17) Home Medications Scheduled Acetaminophen (Tylenol), 650 MG PO Q12 Aspirin (Aspirin EC Low Dose), 81 MG PO DAILY Atorvastatin (Atorvastatin Calcium), 40 MG PO DAILY Citalopram (Citalopram Hydrobromide), 20 MG PO QAM Clopidogrel Bisulfate (Clopidogrel), 75 MG PO DAILY Ergocalciferol (Vitamin D 68057 Unit), 1 TAB PO WK Furosemide (Lasix), 20 MG PO Q2D Gabapentin (Gabapentin), 100 MG PO TID Home O2 Therapy (Oxygen), 4 LITERS NA CONTINOUS Insulin Glargine (Lantus Solostar), 55 UNITS SC QAM Insulin Lispro (Human) (Humalog Kwikpen), 24 UNITS SC TID Ipratropium-Albuterol (Combivent Respimat), 1 PUFFS INH QID Lactobacillus Acidophilus (Floranex), 1 TAB PO TID Levothyroxine Sodium (Levothyroxine Sodium), 200 MCG PO DAILY Metoprolol Tartrate (Lopressor), 12.5 MG PO BID Pantoprazole Sodium (Protonix), 20 MG PO DAILY Scheduled PRN Albuterol Sulf (Proventil 0.083% 2.5MG/3ML), 2.5 MG INH Q4H PRN for Shortness of Breath Albuterol Sulfate (Proair Respiclick), 2 PUFFS INH Q4H PRN for Shortness of Breath Current Inpatient Medications Current Inpatient Medications Medications (Trade) Dose Ordered Sig/Abdi Route Start Time Stop Time Status Last Admin Dose Admin Ioversol (Optiray 320) 100 ml UD PRN IV 10/03/17 12:30 10/07/17 12:29 Heparin Sodium (Porcine) (Heparin Sq 5000 Unit/0.5ml) 5,000 unit Q8H SQ 10/03/17 14:15 11/02/17 14:14 UNV Acetaminophen (Tylenol Tab) 650 mg Q4H PRN PO 10/03/17 14:15 11/02/17 14:14 UNV Pantoprazole Sodium (Protonix Tab) 40 mg DAILY PO 10/04/17 09:00 11/03/17 08:59 UNV Levalbuterol (Xopenex 1.25MG/ 0.5ML Neb) 1.25 mg Q4 INH 10/03/17 16:00 11/02/17 15:59 UNV Ipratropium Wayan (Atrovent 0.02% 0.5MG/2.5ML Neb) 0.5 mg Q4 INH 10/03/17 16:00 11/02/17 15:59 UNV Methylprednisolone Sodium Succinate 60 mg/Syringe 0.96 ml @ 1.5 mls/min Q8 IV 10/03/17 22:00 11/02/17 21:59 UNV Levofloxacin 750 mg/Prmx 150 ml @ 100 mls/hr DAILY STAT IV 10/03/17 14:11 10/03/17 15:40 UNV Miscellaneous Information (Consult Glycemic Management Pharmacy) 1 ea UD PRN N/A 10/03/17 15:26 11/02/17 15:25 Insulin Glargine (Lantus Solostar Pen) 22 units Q12 SC 10/03/17 21:00 11/02/17 20:59 UNV Insulin Aspart (novoLOG ASPART) SLIDING SCALE If C... ACHS SC 10/03/17 16:00 11/02/17 15:59 UNV Glucose (Glucose 40% Gel) 15-30 GRAMS 15 GRAMS... UD PRN PO 10/03/17 15:15 11/02/17 15:14 UNV Glucose (Glucose Chew Tab) 4-8 Tablets 4 Tabl... UD PRN PO 10/03/17 15:15 11/02/17 15:14 UNV Dextrose (Dextrose 50% 50ML Syringe) 25-50ML OF 50% DW IV FOR... UD PRN IV 10/03/17 15:15 11/02/17 15:14 UNV Glucagon (Glucagon Inj) 1 mg UD PRN SQ 10/03/17 15:15 11/02/17 15:14 UNV Aspirin (Ecotrin Tab) 81 mg DAILY PO 10/04/17 09:00 11/03/17 08:59 UNV Atorvastatin Calcium (Lipitor Tab) 40 mg DAILY PO 10/04/17 09:00 11/03/17 08:59 UNV Citalopram Hydrobromide (celeXA TAB) 20 mg QAM PO 10/04/17 09:00 11/03/17 08:59 UNV Clopidogrel Bisulfate (plAVix TAB) 75 mg DAILY PO 10/04/17 09:00 11/03/17 08:59 UNV Levothyroxine Sodium (Synthroid Tab) 200 mcg DAILY PO 10/04/17 09:00 11/03/17 08:59 UNV Metoprolol Tartrate (Lopressor Tab) 12.5 mg BID PO 10/03/17 21:00 11/02/17 20:59 UNV Non-Formulary Medication (Pantoprazole Sodium (Protonix)) 20 mg DAILY PO 10/04/17 09:00 11/03/17 08:59 UNV Review of Systems She does not given any details regarding her history. Dyspnea and generalized malaise noted. No chest pain. No worsening sputum. Remaining ROS unhelpful. Physical Exam Date Time Temp Pulse Resp B/P (MAP) Pulse Ox O2 Delivery O2 Flow Rate FiO2 10/03/17 15:11 66 90 50 10/03/17 14:11 90 BiPAP 40 10/03/17 14:02 67 18 109/47 96 BiPAP 60 10/03/17 14:02 61 92 50 10/03/17 13:33 64 96 60 10/03/17 13:05 61 20 135/63 95 Nebulizer 7.0 10/03/17 12:51 63 20 93 Nebulizer 10/03/17 12:32 129/55 10/03/17 12:31 60 26 96 Nebulizer 10/03/17 12:26 58 20 93 10/03/17 12:21 57 29 93 10/03/17 12:16 57 18 95 10/03/17 12:11 57 19 95 10/03/17 12:09 99/56 10/03/17 12:07 58 10/03/17 12:06 57 18 95 10/03/17 12:05 57 20 99/56 96 Nebulizer 10/03/17 12:01 59 22 93 10/03/17 11:57 61 20 92 Nasal Cannula 6.0 10/03/17 11:44 36.5 62 26 134/57 93 Nasal Cannula 6.0 10/03/17 11:44 93 Nasal Cannula 6.0 10/03/17 11:40 93 Nasal Cannula 6.0 10/03/17 11:26 134/57 --Gen--lethargic/blunted --HEENT--no acute changes --Respiratory--exchange is fair.--In the ICU minimal wheezing noted --Cardio--regular--perfusion is adequate --GI--Obese--no guarding ----queen to gravity --Neuro--no focal changes. --Musculo--no target identified --Derm--no lesion Laboratory Results Last 24 Hours Test 10/03/17 11:27 10/03/17 11:37 10/03/17 12:59 10/03/17 14:01 White Blood Count 7.37 K/uL Red Blood Count 3.90 M/uL Hemoglobin 11.7 g/dL Hematocrit 38.2 % Mean Corpuscular Volume 97.9 fL Mean Corpuscular Hemoglobin 30.0 pg Mean Corpuscular Hemoglobin Concent 30.6 g/dl Platelet Count 226 K/uL Mean Platelet Volume 8.6 fL Neutrophils (%) (Auto) 75.3 % Lymphocytes (%) (Auto) 18.3 % Monocytes (%) (Auto) 5.2 % Eosinophils (%) (Auto) 0.8 % Basophils (%) (Auto) 0.1 % Neutrophils # (Auto) 5.55 K/uL Lymphocytes # (Auto) 1.35 K/uL Monocytes # (Auto) 0.38 K/uL Eosinophils # (Auto) 0.06 K/uL Basophils # (Auto) 0.01 K/uL RDW Standard Deviation 47.8 fL RDW Coefficient of Variation 13.4 % Immature Granulocyte % (Auto) 0.3 % Immature Granulocyte # (Auto) 0.02 K/uL Prothrombin Time 10.5 SECONDS Prothromb Time International Ratio 1.0 Activated Partial Thromboplast Time 30.4 SECONDS Partial Thromboplastin Ratio 1.2 Sodium Level 127 mmol/L Potassium Level 5.1 mmol/L Chloride Level 85 mmol/L Carbon Dioxide Level 40 mmol/L Anion Gap 1.0 mmol/L Blood Urea Nitrogen 16 mg/dl Creatinine 0.34 mg/dl Est Creatinine Clear Calc Drug Dose 242.6 ml/min Estimated GFR () 141.4 Estimated GFR (Non- 122.0 BUN/Creatinine Ratio 46.0 Random Glucose 113 mg/dl Calcium Level 9.3 mg/dl Troponin I < 0.015 ng/ml Pro-B-Type Natriuretic Peptide 1014 pg/ml Arterial Blood pH 7.21 Arterial Blood Partial Pressure CO2 103 mmHg Arterial Blood Partial Pressure O2 83 mm/Hg Arterial Blood HCO3 40 mmol/L Arterial Blood Oxygen Saturation 93.8 % Arterial Blood Base Excess 8.7 mEq/L Arterial Blood Gas Delivery 7L Alon Test POS Creatine Kinase MB Ratio Test 10/03/17 15:[address]--no PE--atelectasis/vs Pneumonia --some nodes Respiratory Acidosis--Metabolic Alkalosis--Hyponatremia Assessment & Plan Hypercapnic Respiratory Failure--Probable multifactorial in nature--She is a candidate for BiPAP ventilatory support given her LOC and underlying status: 1. Respiratory--BiPAP --repeat ABG to establish improvement--Steroid and antibiotics--if does not improve quickly will plan for ventilator support 2. Cardio--PRN diuresis 3. GI--OBR 4. Endo--insulin coverage 5. Neuro--neuro consult 6. F/E/N--correct hyponatremia-
[2017-10-03] MEDS ORDERED: IPRATROPIUM BROMIDE NEB SOLN 0.02% 2.5 ML VIAL INH SCH (16:00)
[2017-10-03] MEDS ORDERED: PNEUMOCOCCAL POLYSACCHARIDES 25 MCG/0.5 ML VIAL/SYR IM. ONE (16:00)
[2017-10-03] MEDS ORDERED: PNEUMOCOCCAL ADMINISTRATION CHARGE ONE (16:00)
[2017-10-03] MEDS ORDERED: INSULIN ASPART 100 UNITS/ML 3 ML PEN SC SCH ×2 (16:00→17:15)
[2017-10-03] MEDS ORDERED: LEVALBUTEROL 1.25MG/0.5ML NEB INH SCH (16:00)
[2017-10-03 16:16] LABS: IPAP 14; ISTAT ALLEN TEST Pass; ISTAT ARTERIAL BLOOD GAS HCO3 45 meq/L (19-24); ISTAT ARTERIAL BLOOD GAS PCO2 99 mmHg (35-46); ISTAT ARTERIAL BLOOD GAS PO2 77 mmHg (80-95); ISTAT ARTERIAL BLOOD GAS pH 7.26 (7.35-7.45); ISTAT CARBON DIOXIDE > 40 mEq/l (24-31); ISTAT DELIVERY SYSTEM BIPAP; ISTAT FIO2 50 %; ISTAT RATE 19; ISTAT SITE L Radial
--- NOTE | 2017-10-03 16:22 | Pharmacy Progress Note ---
Glycemic Control Intl Consult Date of Service Oct 03, 2017. Scope Glycemic Pharmacist consulted by Vicki Frank on 10/03/17 for glycemic control and to write orders per [facility] inpatient glycemic control protocol Objective Weight (Kilograms): 135.300 Accuchecks BSG (last 24hrs): Test 10/03/17 11:37 10/03/17 15:58 Random Glucose 113 mg/dl (70-99) Bedside Glucose 149 mg/dl (70-90) Laboratory Data (last 24hrs) Test 10/03/17 11:37 Anion Gap 1.0 mmol/L BUN/Creatinine Ratio 46.0 Blood Urea Nitrogen 16 mg/dl Creatinine 0.34 mg/dl Potassium Level 5.1 mmol/L Sodium Level 127 mmol/L White Blood Count 7.37 K/uL Red Blood Count 3.90 M/uL Hemoglobin 11.7 g/dL Hematocrit 38.2 % Mean Corpuscular Volume 97.9 fL Mean Corpuscular Hemoglobin 30.0 pg Mean Corpuscular Hemoglobin Concent 30.6 g/dl Platelet Count 226 K/uL Mean Platelet Volume 8.6 fL Neutrophils (%) (Auto) 75.3 % Lymphocytes (%) (Auto) 18.3 % Monocytes (%) (Auto) 5.2 % Eosinophils (%) (Auto) 0.8 % Basophils (%) (Auto) 0.1 % Neutrophils # (Auto) 5.55 K/uL Lymphocytes # (Auto) 1.35 K/uL Monocytes # (Auto) 0.38 K/uL Eosinophils # (Auto) 0.06 K/uL Basophils # (Auto) 0.01 K/uL Recent Pertinent Medications Outpatient Anti-diabetic Regimen: * Lantus 55 units in the morning and Novolog 24 units with meals * A1c = 7.9 % 09/01/17 Risk Factors for Insulin Resistance: * Steroids: Solu-Medrol 125 mg IV x 1 then 60 mg IV q8 hours * Infection: pulmonary- on Levofloxacin * Diet: NPO patient being intubated * Mechanical Ventilation: yes Assessment & Plan ASSESSMENT: * ADA & AACE recommend a goal blood sugar range 140-180 mg/dl for the majority of critically ill & non-critically ill patients. However, more stringent targets may be selected in individual cases. * Ms De Anda is a 56 y/o F with a PMH of asthma, COPD, and PVD who presents today with SOB. She was admitted to the ICU for intubation. Currently her blood sugars are 113 mg/dL and 148 mg/dL. She took Lantus 55 units this morning. * Since the patient is in the ICU, the plan of care is an insulin infusion. This will be initiated once her blood sugars are greater than 180 mg/dL ( pending order entered). Currently Novolog Accuchecks ordered q4 hours to ensure adequate coverage while NPO. Tight parameters ordered based upon previous data indicated steroids cause much insulin resistance. PLAN FOR INPATIENT GLYCEMIC CONTROL: * Starting IV insulin infusion per moderate (moderate/severe) stress protocol - ONCE blood sugars greater than 180 mg/dL * Goal Range 140 - 180 mg/dl * In the critical care setting, continuous IV insulin infusion has been shown to be the best method for achieving glycemic targets. * Correctional Insulin with NOVOLOG per scale ACHS or Q6hrs while NPO * Goal Range: Low 140 mg/dL - High 180 mg/dL * Correction Factor: 10 mg/dL/unit * Nutritional / Prandial insulin per carb ratio of 1 unit per 3 grams CHO consumed * Please note that the plan above was derived based on current level of insulin resistance and hospital stress. These recommendations are appropriate for inpatient admission only. Plan of care upon discharge will need to be reassessed to avoid potential outpatient hypo/hyperglycemia. Thank you.
[2017-10-03] MEDS: LEVOFLOXACIN / D5W 750 MG in PREMIXED IN D5W 150 ML IV SCH (16:23)
[2017-10-03] MEDS ORDERED: RAPID SEQUENCE INDUCTION BAG ONE (16:33)
[2017-10-03 16:49] LABS: ALKALINE PHOSPHATASE 152 U/L (45-117); ALT/SGPT 86 U/L (12-78); AST/SGOT 39 U/L (15-37); CKMB/CK RATIO 3.6 (0-3.0); MAGNESIUM 1.8 mg/dl (1.8-2.4); PHOSPHORUS 3.6 mg/dl (2.5-4.9)
--- NOTE | 2017-10-03 17:43 | Procedure Note ---
Procedure Note Date of Service Oct 03, 2017. Procedure Note Called to ICU 110 for stat intubation. Pt unresponsive. Student Counsellor was bagging pt. Reported attempted intubation- unsuccessful. Pt reported to have been given succinylcholine, fentanyl, and midazolam- see icu note for dosages. Glidescope #3 used to attain a grade 2 view. Cords open, oral Hi/Lo ETT size 7.5 placed at 1723. BBS and +ETCO2. Respiratory and manager multicultural at bedside and ETT secured by them. Pt tolerated well, VSS.
[2017-10-03] MEDS ORDERED: MIDAZOLAM 125MG/250ML D5W IV ONE (17:47)
[2017-10-03] MEDS ORDERED: FENTANYL CITRATE 1250MCG/250ML NSS ONE (17:48)
[2017-10-03] MEDS ORDERED: MIDAZOLAM 125MG/250ML D5W 250 ML IV SCH (18:01)
--- NOTE | 2017-10-03 18:09 | DIAGNOSTIC IMAGING REPORT ---
SINGLE VIEW CHEST CLINICAL HISTORY: Intubation. FINDINGS: 2 AP, portable, supine and semierect chest radiograph is are compared to chest x-ray and chest CT dated 10/03/2017. The examination is significantly degraded by portable technique, large body habitus, and patient rotation. An enteric tube has been placed. This projects below the diaphragm over the mid stomach. An endotracheal tube has been placed. The tip projects approximately 5.5 cm above the chanel. The heart is enlarged. There is pulmonary vascular congestion and interstitial edema. Bilateral airspace consolidation is identified and there are layering pleural effusions. No pneumothorax is seen. The skeletal structures are osteopenic. The bony thorax is grossly intact. Cholecystectomy clips are noted. IMPRESSION: 1. Endotracheal and enteric tubes have been placed as above. 2. Cardiomegaly with evidence of congestive failure and interstitial edema. 3. Layering pleural effusions with bibasilar consolidation. This could represent atelectasis versus pneumonia. Clinical correlation will be required. Electronically signed by: Addison Connolly M.D. 10/03/2017 6:08 PM Dictated Date/Time: 10/03/2017 6:06 PM
--- NOTE | 2017-10-03 18:11 | DIAGNOSTIC IMAGING REPORT ---
KUB CLINICAL HISTORY: og tube placement tube position COMPARISON STUDY: Chest series same date FINDINGS: The tip of the nasogastric tube is identified in the mid gastric body. This is confirmed on the AP, the chest several minutes prior. IMPRESSION: Nasogastric tube placed in the mid stomach. The above report was generated using voice recognition software. It may contain grammatical, syntax or spelling errors. Electronically signed by: Harvey Blevins M.D. 10/03/2017 6:10 PM Dictated Date/Time: 10/03/2017 6:09 PM
[2017-10-03 18:52] LABS: ISTAT ALLEN TEST Pass; ISTAT ARTERIAL BLOOD GAS HCO3 40 meq/L (19-24); ISTAT ARTERIAL BLOOD GAS PCO2 63 mmHg (35-46); ISTAT ARTERIAL BLOOD GAS PO2 85 mmHg (80-95); ISTAT ARTERIAL BLOOD GAS pH 7.41 (7.35-7.45); ISTAT CARBON DIOXIDE > 40 mEq/l (24-31); ISTAT DELIVERY SYSTEM Ventilator; ISTAT FIO2 100 %; ISTAT PEEP 5; ISTAT RATE 20; ISTAT SITE L Radial; VE 11.7; Vt 650
--- NOTE | 2017-10-03 19:31 | DIAGNOSTIC IMAGING REPORT ---
VENOUS DOPPLER LWR EXT BILA HISTORY: Pain. Edema. LEG PAIN AND SWELLING COMPARISON STUDY: 02/28/2016 FINDINGS: There is normal compressibility, flow, and augmentation within the bilateral lower extremity deep venous systems. IMPRESSION: No DVT within the right or left lower extremity. The above report was generated using voice recognition software. It may contain grammatical, syntax or spelling errors. Electronically signed by: Harvey Blevins M.D. 10/03/2017 7:30 PM Dictated Date/Time: 10/03/2017 7:29 PM
[2017-10-03] MEDS: METHYLPREDNISOLONE IV 60 MG in SYRINGE 0 ML IV SCH (19:41)
[2017-10-03] MEDS: INSULIN ASPART 100 UNITS/ML 3 ML PEN SC SCH (19:55)
[2017-10-03] MEDS: METOPROLOL TARTRATE 25 MG TAB PO SCH (20:48)
[2017-10-03] MEDS: HEPARIN SOD 5000 UNIT/0.5 ML CARP SQ SCH (21:34)
[2017-10-03] MEDS: LEValbuterol HFA 15GM INHALER INH SCH (23:45)
[2017-10-03] MEDS: IPRATROPIUM BROMIDE HFA INHALER INH SCH (23:45)
[2017-10-04] VITALS (12 sets, daily range): BP systolic 109–154; BP diastolic 46–63; PULSE 49–60; TEMP 36.4–37.1; O2SAT 87–93; Ht 157.5 cm; Wt 129.5 kg
[2017-10-04] MEDS: IPRATROPIUM BROMIDE HFA INHALER INH SCH ×7 (00:30→23:05)
[2017-10-04] MEDS: LEValbuterol HFA 15GM INHALER INH SCH ×7 (00:30→23:05)
[2017-10-04] MEDS: FENTANYL 1250MCG/250ML NSS 250 ML IV PRN ×2 (01:53→18:30)
[2017-10-04] MEDS: INSULIN ASPART 100 UNITS/ML 3 ML PEN SC SCH ×6 (03:40→20:15)
[2017-10-04] MEDS: METHYLPREDNISOLONE IV 60 MG in SYRINGE 0 ML IV SCH ×3 (03:44→20:15)
[2017-10-04 04:21] LABS: COMPLETE YES; HEMATOCRIT 37.6 % (37-47); IG% 0.4 %; LYMPH % 12.5 %; LYMPH ABS # 0.84 K/uL (1.2-3.4); MEAN CELL VOLUME 94.5 fL (80-100); MEAN CORPUSCULAR HEMOGLOBIN 31.2 pg (25-34); MEAN PLATELET VOLUME 8.4 fL (7.4-10.4); MONO % 2.8 %; NEUT % 84.3 %; PLATELET COUNT 202 K/uL (130-400); RED BLOOD COUNT 3.98 M/uL (4.2-5.4)
[2017-10-04 04:26] LABS: VEN BLOOD GAS BASE EXCESS 10.7 mEq/L
[2017-10-04 04:50] LABS: ALKALINE PHOSPHATASE 139 U/L (45-117); ALT/SGPT 70 U/L (12-78); AST/SGOT 26 U/L (15-37); BLOOD UREA NITROGEN 12 mg/dl (7-18); BUN/CREATININE RATIO 29.9 (10-20); CALCIUM 9.2 mg/dl (8.5-10.1); CARBON DIOXIDE 34 mmol/L (21-32); CHLORIDE 88 mmol/L (98-107); CHOLESTEROL 138 mg/dl (0-200); CKMB/CK RATIO 2.7 (0-3.0); GLUCOSE 169 mg/dl (70-99); HDL CHOLESTEROL 70 mg/dl; LDL CHOLESTEROL CALCULATED 45 mg/dl; MAGNESIUM 1.6 mg/dl (1.8-2.4); PHOSPHORUS 2.2 mg/dl (2.5-4.9); POTASSIUM 3.8 mmol/L (3.5-5.1); SODIUM 128 mmol/L (136-145); TRIGLYCERIDES 116 mg/dl (0-150); VERY LOW DENSITY LIPOPROT CALC 23 mg/dl
[2017-10-04 06:17] LABS: ISTAT ALLEN TEST Pass; ISTAT ARTERIAL BLOOD GAS HCO3 39 meq/L (19-24); ISTAT ARTERIAL BLOOD GAS PCO2 51 mmHg (35-46); ISTAT ARTERIAL BLOOD GAS PO2 53 mmHg (80-95); ISTAT ARTERIAL BLOOD GAS pH 7.49 (7.35-7.45); ISTAT CARBON DIOXIDE > 40 mEq/l (24-31); ISTAT DELIVERY SYSTEM Ventilator; ISTAT SITE R Radial
[2017-10-04] MEDS: LEVOTHYROXINE 200 MCG TAB PO SCH (06:23)
[2017-10-04] MEDS: HEPARIN SOD 5000 UNIT/0.5 ML CARP SQ SCH ×3 (06:28→20:18)
[2017-10-04 06:30] LABS: ESTIMATED AVERAGE GLUCOSE 140 mg/dl; HA1C FLAG Normal (Normal)
--- NOTE | 2017-10-04 07:03 | DIAGNOSTIC IMAGING REPORT ---
CHEST ONE VIEW PORTABLE HISTORY: 56 years-old Female Intubated acute respiratory failure COMPARISON: Chest radiograph 10/03/2017 TECHNIQUE: Portable upright AP view of the chest FINDINGS: Endotracheal tube overlies the midline terminating 3.9 cm superior to the level the chanel. Enteric tube courses below the diaphragm below the field of view. Cardiac silhouette is moderately enlarged with persistent mixed interstitial and alveolar opacities compatible with pulmonary edema. Small bilateral pleural effusions with bibasilar alveolar opacities appear unchanged. No pneumothorax. Bones of the chest are grossly intact. IMPRESSION: 1. Endotracheal and enteric tubes as above. 2. Cardiomegaly with persistent interstitial and alveolar pulmonary edema, small bilateral pleural effusions and bibasilar consolidative opacities suggesting atelectasis or pneumonia. The above report was generated using voice recognition software. It may contain grammatical, syntax or spelling errors. Electronically signed by: Selvin Lui M.D. 10/04/2017 7:02 AM Dictated Date/Time: 10/04/2017 7:00 AM
--- NOTE | 2017-10-04 08:04 | Progress Note ---
Internal Med Progress Note Date of Service: Oct 04, 2017. Provider Documentation: SUBJECTIVE: Seen and examined at bedside Currently sedated and Intubated No family at bedside Planned to started on tube feeds, weaning trial OBJECTIVE: Vital Signs-as noted below Physical Exam: General Appearance:Obese, no apparent distress, sedated and Intubated Head: normocephalic, Atraumatic Eyes: normal inspection, EOMI, PERRL Neck: supple, Trachea midline Respiratory/Chest: Normal breath sounds, CTA Cardiovascular: S1, S2, No murmur, + Bradycardia Abdomen/GI:Soft, Non tender, Bowel sounds present Extremities/Musculoskelatal:normal inspection, Trace b/l zulay Neurologic/Psych:Sedated and Intubated. Skin: normal color, warm Lab data as noted below. 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 Acute on chronic hypoxic and hypercapnic respiratory failure: Likely multifactorial: 2/2 COPD exacerbation, PNA Chronic Oxygen dependency CTA:No PE, small b/l pleural effusions, pulm edema, b/l lower lobe consolidation , mild mediastinal lymphadenopathy Continue Levaquin for empirical coverage Blood, sputum cx pending Vent management per ICU team IV steroids, duonebs Lasix PRN Encephalopathy: Likely metabolic Likely 2/2 hypercarbia; Infection: possible UTI Ammonia: normal Urine Cx: pending continue levofloxacin for now Acetylcholine receptor ab pending Neurology consulted Hypomagnesemia/Hypophosphatemia: Replace electrolytes per ICU protocol Sinus Bradycardia: May need to adjust Metoprolol dosing monitor Chest pain: Per initial interview, CP is central, non-radiating H/o STEMI (s/p stent) R/o ACS; risk factors: DM II, CAD, HLD, current smoker Troponin: negative EKG without ischemic changes CXR with pulmonary edema, possible bibasilar PNA ECHO:pending DM II: Hold home agents Glycemic consult placed in setting of IV steroids ISS, Accu checks Hgb a1c:6.5 Hyponatremia: Chronic Monitor Sodium levels HLD: Continue statin CAD (s/p stent): Continue aspirin, plavix, statin HTN: Continue metoprolol Cirrhosis 2/2 AIH: Stable DVT Px: Heparin SQ Code status: FULL PCP: [facility], [place] Disposition: Presented from [facility] Vital Signs: Date Time Temp Pulse Resp B/P (MAP) Pulse Ox O2 Delivery O2 Flow Rate FiO2 10/04/17 07:48 60 10/04/17 06:00 51 16 154/63 (93) 92 Mechanical Ventilator 65 10/04/17 04:00 65 10/04/17 04:00 90 Mechanical Ventilator 65 10/04/17 04:00 65 10/04/17 04:00 37.1 56 16 115/46 (69) 87 Mechanical Ventilator 65 10/04/17 02:00 54 16 153/54 (87) 90 Mechanical Ventilator 65 10/04/17 00:47 65 10/04/17 00:01 37.1 55 16 151/63 (92) 90 Mechanical Ventilator 65 10/03/17 23:59 65 10/03/17 23:59 90 Mechanical Ventilator 65 10/03/17 23:46 65 10/03/17 22:00 55 16 154/69 (97) 91 Mechanical Ventilator 70 10/03/17 21:45 60 10/03/17 20:00 92 Mechanical Ventilator 50 10/03/17 20:00 36.8 57 20 134/80 (98) 90 Mechanical Ventilator 50 10/03/17 20:00 50 10/03/17 18:45 50 10/03/17 18:16 59 9 111/63 (79) 98 10/03/17 18:15 59 0 98 10/03/17 18:11 62 8 104/61 (75) 98 10/03/17 18:06 64 3 103/56 (72) 98 10/03/17 18:01 67 23 110/57 (74) 98 10/03/17 18:00 68 20 98 10/03/17 17:56 70 109 112/61 (78) 97 10/03/17 17:51 71 30 103/63 (76) 97 10/03/17 17:46 71 18 124/68 (86) 94 10/03/17 17:45 100 10/03/17 17:45 72 21 95 10/03/17 17:41 73 23 98/58 (71) 94 10/03/17 17:36 74 18 107/61 (76) 90 10/03/17 17:31 74 20 134/71 (92) 89 10/03/17 17:30 76 20 90 10/03/17 17:26 81 18 160/89 (112) 87 10/03/17 17:21 78 19 134/72 (92) 93 10/03/17 17:16 67 24 170/77 (108) 79 10/03/17 17:15 75 26 90 10/03/17 17:11 76 21 173/77 (109) 92 10/03/17 17:06 69 17 141/70 (93) 92 10/03/17 17:01 71 20 171/74 (106) 90 10/03/17 17:00 71 18 90 10/03/17 16:56 72 19 137/68 (91) 93 10/03/17 16:51 67 25 122/72 (89) 85 10/03/17 16:45 61 13 98 10/03/17 16:30 61 21 97 10/03/17 16:15 59 22 97 10/03/17 16:01 60 25 118/55 (76) 94 10/03/17 16:00 59 19 94 10/03/17 15:41 36.9 64 20 107/48 90 Oxyhood 15.0 10/03/17 15:11 66 90 50 10/03/17 14:11 90 BiPAP 40 10/03/17 14:02 67 18 109/47 96 BiPAP 60 10/03/17 14:02 61 92 50 10/03/17 13:33 64 96 60 10/03/17 13:05 61 20 135/63 95 Nebulizer 7.0 10/03/17 12:51 63 20 93 Nebulizer 10/03/17 12:32 129/55 10/03/17 12:31 60 26 96 Nebulizer 10/03/17 12:26 58 20 93 10/03/17 12:21 57 29 93 10/03/17 12:16 57 18 95 10/03/17 12:11 57 19 95 10/03/17 12:09 99/56 10/03/17 12:07 58 10/03/17 12:06 57 18 95 10/03/17 12:05 57 20 99/56 96 Nebulizer 10/03/17 12:01 59 22 93 10/03/17 11:57 61 20 92 Nasal Cannula 6.0 10/03/17 11:44 36.5 62 26 134/57 93 Nasal Cannula 6.0 10/03/17 11:44 93 Nasal Cannula 6.0 10/03/17 11:40 93 Nasal Cannula 6.0 10/03/17 11:26 134/57 Lab Results: Results Past 24 Hours Test 10/03/17 11:27 10/03/17 11:37 10/03/17 12:59 10/03/17 15:26 Range/Units Osmolality 278 280-300 mOsm/kg White Blood Count 7.37 4.8-10.8 K/uL Red Blood Count 3.90 4.2-5.4 M/uL Hemoglobin 11.7 12.0-16.0 g/dL Hematocrit 38.2 37-47 % Mean Corpuscular Volume 97.9 80-100 fL Mean Corpuscular Hemoglobin 30.0 25-34 pg Mean Corpuscular Hemoglobin Concent 30.6 32-36 g/dl Platelet Count 226 130-400 K/uL Mean Platelet Volume 8.6 7.4-10.4 fL Neutrophils (%) (Auto) 75.3 % Lymphocytes (%) (Auto) 18.3 % Monocytes (%) (Auto) 5.2 % Eosinophils (%) (Auto) 0.8 % Basophils (%) (Auto) 0.1 % Neutrophils # (Auto) 5.55 1.4-6.5 K/uL Lymphocytes # (Auto) 1.35 1.2-3.4 K/uL Monocytes # (Auto) 0.38 0.11-0.59 K/uL Eosinophils # (Auto) 0.06 0-0.5 K/uL Basophils # (Auto) 0.01 0-0.2 K/uL RDW Standard Deviation 47.8 36.4-46.3 fL RDW Coefficient of Variation 13.4 11.5-14.5 % Immature Granulocyte % (Auto) 0.3 % Immature Granulocyte # (Auto) 0.02 0.00-0.02 K/uL Prothrombin Time 10.5 9.0-12.0 SECONDS Prothromb Time International Ratio 1.0 0.9-1.1 Activated Partial Thromboplast Time 30.4 21.0-31.0 SECONDS Partial Thromboplastin Ratio 1.2 Sodium Level 127 136-145 mmol/L Potassium Level 5.1 3.5-5.1 mmol/L Chloride Level 85 98-107 mmol/L Carbon Dioxide Level 40 21-32 mmol/L Anion Gap 1.0 3-11 mmol/L Blood Urea Nitrogen 16 7-18 mg/dl Creatinine 0.34 0.60-1.20 mg/dl Est Creatinine Clear Calc Drug Dose 242.6 ml/min Estimated GFR () 141.4 Estimated GFR (Non- 122.0 BUN/Creatinine Ratio 46.0 10-20 Random Glucose 113 70-99 mg/dl Calcium Level 9.3 8.5-10.1 mg/dl Troponin I < 0.015 0-0.045 ng/ml Pro-B-Type Natriuretic Peptide 1014 0-900 pg/ml Arterial Blood pH 7.21 7.35-7.45 Arterial Blood Partial Pressure CO2 103 35-46 mmHg Arterial Blood Partial Pressure O2 83 80-95 mm/Hg Arterial Blood HCO3 40 19-24 mmol/L Arterial Blood Oxygen Saturation 93.8 90-95 % Arterial Blood Base Excess 8.7 -9-1.8 mEq/L Arterial Blood Gas Delivery 7L Alon Test POS POS Urine Color YELLOW Urine Appearance CLOUDY CLEAR Urine pH 8.0 4.5-7.5 Urine Specific [place] 1.027 1.000-1.030 Urine Protein TRACE NEG Urine Glucose (UA) NEG NEG Urine Ketones NEG NEG Urine Occult Blood TRACE NEG Urine Nitrite POS NEG Urine Bilirubin NEG NEG Urine Urobilinogen NEG NEG Urine Leukocyte Esterase LARGE NEG Urine WBC (Auto) >30 0-5 /hpf Urine RBC (Auto) 0-4 0-4 /hpf Urine Hyaline Casts (Auto) 1-5 0-5 /lpf Urine Epithelial Cells (Auto) 10-20 0-5 /lpf Urine Bacteria (Auto) 4+ NEG Urine Pathogenic Casts 0 /lpf Urine Osmolality 479 500-800 mOms/kg Test 10/03/17 15:45 10/03/17 15:58 10/03/17 16:02 10/03/17 16:29 Range/Units Lactic Acid Level 0.8 0.4-2.0 mmol/L Phosphorus Level 3.6 2.5-4.9 mg/dl Magnesium Level 1.8 1.8-2.4 mg/dl Total Bilirubin 0.3 0.2-1 mg/dl Direct Bilirubin 0.1 0-0.2 mg/dl Aspartate Amino Transf (AST/SGOT) 39 15-37 U/L Alanine Aminotransferase (ALT/SGPT) 86 12-78 U/L Alkaline Phosphatase 152 45-117 U/L Total Creatine Kinase 72 26-192 U/L Creatine Kinase MB 2.6 0.5-3.6 ng/ml Creatine Kinase MB Ratio 3.6 0-3.0 Troponin I < 0.015 0-0.045 ng/ml Total Protein 7.3 6.4-8.2 gm/dl Albumin 3.1 3.4-5.0 gm/dl Bedside Glucose 149 70-90 mg/dl Blood Gas Sample Site L Radial Bedside Blood Gas pH (LAB) 7.26 7.35-7.45 Bedside Blood Gas pCO2 (LAB) 99 35-46 mmHg Bedside Blood Gas pO2 (LAB) 77 80-95 mmHg Bedside Blood Gas HCO3 (LAB) 45 19-24 meq/L Bedside Blood Gas Total CO2 > 40 24-31 mEq/l Bedside Blood Gas Base Excess (LAB) 17.0 -9-1.8 meq/L Bedside Blood Gas O2 Saturation 92.0 90-95 % Alon Test Pass Oxygen Delivery Device BIPAP Bedside Oxygen Rate (breaths/min) 19 Bedside FiO2 50 % Blood Gas IPAP 14 Ammonia 25.9 11-32 umol/L Test 10/03/17 18:35 10/03/17 19:50 10/03/17 20:00 10/04/17 00:10 Range/Units Blood Gas Sample Site L Radial Bedside Blood Gas pH (LAB) 7.41 7.35-7.45 Bedside Blood Gas pCO2 (LAB) 63 35-46 mmHg Bedside Blood Gas pO2 (LAB) 85 80-95 mmHg Bedside Blood Gas HCO3 (LAB) 40 19-24 meq/L Bedside Blood Gas Total CO2 > 40 24-31 mEq/l Bedside Blood Gas Base Excess (LAB) 15.0 -9-1.8 meq/L Bedside Blood Gas O2 Saturation 96.0 90-95 % Alon Test Pass Oxygen Delivery Device Ventilator Bedside Oxygen Rate (breaths/min) 20 Blood Gas Minute Ventilation 11.7 Bedside FiO2 100 % Blood Gas Tidal Volume 650 Blood Gas PEEP 5 Bedside Glucose 172 160 70-90 mg/dl Total Creatine Kinase 26-192 U/L Creatine Kinase MB 2.7 0.5-3.6 ng/ml Creatine Kinase MB Ratio 0-3.0 Troponin I < 0.015 0-0.045 ng/ml Chemistry Specimen Hemolysis Test 10/04/17 03:37 10/04/17 04:09 10/04/17 06:03 Range/Units Bedside Glucose 173 70-90 mg/dl White Blood Count 6.70 4.8-10.8 K/uL Red Blood Count 3.98 4.2-5.4 M/uL Hemoglobin 12.4 12.0-16.0 g/dL Hematocrit 37.6 37-47 % Mean Corpuscular Volume 94.5 80-100 fL Mean Corpuscular Hemoglobin 31.2 25-34 pg Mean Corpuscular Hemoglobin Concent 33.0 32-36 g/dl Platelet Count 202 130-400 K/uL Mean Platelet Volume 8.4 7.4-10.4 fL Neutrophils (%) (Auto) 84.3 % Lymphocytes (%) (Auto) 12.5 % Monocytes (%) (Auto) 2.8 % Eosinophils (%) (Auto) 0.0 % Basophils (%) (Auto) 0.0 % Neutrophils # (Auto) 5.64 1.4-6.5 K/uL Lymphocytes # (Auto) 0.84 1.2-3.4 K/uL Monocytes # (Auto) 0.19 0.11-0.59 K/uL Eosinophils # (Auto) 0.00 0-0.5 K/uL Basophils # (Auto) 0.00 0-0.2 K/uL RDW Standard Deviation 45.2 36.4-46.3 fL RDW Coefficient of Variation 13.1 11.5-14.5 % Immature Granulocyte % (Auto) 0.4 % Immature Granulocyte # (Auto) 0.03 0.00-0.02 K/uL Venous Blood pH 7.44 7.36-7.41 Venous Blood Partial Pressure CO2 56 38.0-50.0 mmHg Venous Blood Partial Pressure O2 47 mmHg Venous Blood HCO3 37 mmol/L Venous Blood Oxygen Saturation 83.0 % Venous Blood Base Excess 10.7 mEq/L Sodium Level 128 136-145 mmol/L Potassium Level 3.8 3.5-5.1 mmol/L Chloride Level 88 98-107 mmol/L Carbon Dioxide Level 34 21-32 mmol/L Anion Gap 6.0 3-11 mmol/L Blood Urea Nitrogen 12 7-18 mg/dl Creatinine 0.40 0.60-1.20 mg/dl Est Creatinine Clear Calc Drug Dose 206.2 ml/min Estimated GFR () 134.0 Estimated GFR (Non- 115.6 BUN/Creatinine Ratio 29.9 10-20 Random Glucose 169 70-99 mg/dl Estimated Average Glucose 140 mg/dl Hemoglobin A1c 6.5 4.5-5.6 % Calcium Level 9.2 8.5-10.1 mg/dl Phosphorus Level 2.2 2.5-4.9 mg/dl Magnesium Level 1.6 1.8-2.4 mg/dl Total Bilirubin 0.4 0.2-1 mg/dl Direct Bilirubin < 0.1 0-0.2 mg/dl Aspartate Amino Transf (AST/SGOT) 26 15-37 U/L Alanine Aminotransferase (ALT/SGPT) 70 12-78 U/L Alkaline Phosphatase 139 45-117 U/L Total Creatine Kinase 74 26-192 U/L Creatine Kinase MB 2.0 0.5-3.6 ng/ml Creatine Kinase MB Ratio 2.7 0-3.0 Troponin I < 0.015 0-0.045 ng/ml Total Protein 7.1 6.4-8.2 gm/dl Albumin 2.9 3.4-5.0 gm/dl Triglycerides Level 116 0-150 mg/dl Cholesterol Level 138 0-200 mg/dl HDL Cholesterol 70 mg/dl LDL Cholesterol, Calculated 45 mg/dl VLDL Cholesterol, Calculated 23 mg/dl Cholesterol/HDL Ratio 2.0 Blood Gas Sample Site R Radial Bedside Blood Gas pH (LAB) 7.49 7.35-7.45 Bedside Blood Gas pCO2 (LAB) 51 35-46 mmHg Bedside Blood Gas pO2 (LAB) 53 80-95 mmHg Bedside Blood Gas HCO3 (LAB) 39 19-24 meq/L Bedside Blood Gas Total CO2 > 40 24-31 mEq/l Bedside Blood Gas Base Excess (LAB) 15.0 -9-1.8 meq/L Bedside Blood Gas O2 Saturation 88.0 90-95 % Alon Test Pass Oxygen Delivery Device Ventilator Microbiology Results 10/03/17 Blood Culture, Received Pending 10/03/17 Blood Culture - Preliminary, Resulted Gram Positive Cocci 10/03/17 Urine Culture, Received Pending 10/03/17 Gram Stain - Final, Resulted 10/03/17 Wound Culture, Resulted Pending
[2017-10-04] MEDS ORDERED: FUROSEMIDE 40 MG/4 ML VIAL ONE (08:30)
[2017-10-04] MEDS ORDERED: FUROSEMIDE INJ 40 MG in SYRINGE 0 ML IV ONE (08:30)
[2017-10-04] MEDS: METOPROLOL TARTRATE 25 MG TAB PO SCH ×2 (08:35→20:15)
[2017-10-04] MEDS: CLOPIDOGREL BISULFATE 75 MG TAB PO SCH (08:35)
[2017-10-04] MEDS: ASPIRIN 81 MG CHEW NG SCH (08:36)
[2017-10-04] MEDS: CITALOPRAM 20 MG TAB PO SCH (08:36)
[2017-10-04] MEDS ORDERED: ASPIRIN 81 MG ECTAB PO SCH (09:00)
[2017-10-04] MEDS ORDERED: ATORVASTATIN 40 MG TAB PO SCH (09:00)
[2017-10-04] MEDS ORDERED: PANTOPRAZOLE SODIUM 20 MG PO SCH (09:00)
[2017-10-04] MEDS ORDERED: PANTOprazole SOD 40 MG TAB PO SCH (09:00)
[2017-10-04] MEDS ORDERED: INSULIN GLARGINE SOLOSTAR 100 UNITS/ML 3 ML PEN SC SCH (09:00)
[2017-10-04] MEDS ORDERED: POTASSIUM PHOS 3 MMOL/1 ML INFUSION IV SCH (09:45)
--- NOTE | 2017-10-04 09:51 | ECHOCARDIOGRAM REPORT ---
*NOTICE TO RECEIVING REPUBLICAN AGENCY This information is strictly Confidential and protected under [place] law. [place] law prohibits you from making any further disclosure of this information unless further disclosure is expressly permitted by the written consent of the person to whom it pertains or is authorized by law. A general authorization for the release of medical or other information is not sufficient for this purpose. Hospital accepts no responsibility if the information is made available to any other person, INCLUDING THE PATIENT. Interpretation Summary * Name: JENNIFER LEVIN Study Date: 10/03/2017 03:48 PM BP: 109/47 mmHg * Patient Location: .MSICU\S\E110\S\1 HR: 67 * : 1960 (M/d/yyyy) Gender: Female Height: 62 in * Age: 56 yrs Ethnicity: [place] Weight: 298 lb * Ordering Physician: Angela Aguirre * Referring Physician: Guanako Sandoval * Performed By: Carmella Fink RDCS * * Reason For Study: Chest pain * BSA: 2.3 m2 * -- Conclusions -- * No change compared to previous study of 06/22/17. * Normal LV chamber size with mild concentric LVH. * Normal LV systolic function, EF 60-65%. * No segmental left ventricular wall motion abnormalities are noted. * Grade II diastolic dysfunction. * Poorly visualized valvular structures without significant stenosis or regurgitation by Doppler. Procedure Details * A complete two-dimensional transthoracic echocardiogram was performed (2D, M-mode, Doppler and color flow Doppler). * A contrast injection of Definity was performed to improve assessment of LV function. * Contrast was injected into an intravenous site in the left arm. * One vial of Definity ultrasound contrast was diluted in normal saline to a total volume of 10 ml. A total of '2' ml of solution was administered during imaging. * Lot # [id number] of Definity utilized for procedure. * Expiration date Nov 14. * The attending nurse who injected the contrast agent was Maureen Lucas RN. Left Ventricle * The left ventricle is normal in size. * There is mild concentric left ventricular hypertrophy. * Ejection Fraction = 60-65%. * Left ventricular systolic function is normal. * No segmental left ventricular wall motion abnormalities are noted. * The left ventricular wall motion is normal. Right Ventricle * The right ventricular cavity size is normal (basal dimension <4.2 cm in right ventricular apical 4-chamber view). * The right ventricular systolic function is normal as assessed by tricuspid annular plane systolic excursion (TAPSE) (normal >1.5 cm). Atria * The left atrium is not well visualized. * Right atrium not well visualized. Mitral Valve * The mitral valve is not well visualized. * There is no mitral valve stenosis. * There is no mitral regurgitation noted. Tricuspid Valve * The tricuspid valve is not well visualized. * There is no tricuspid stenosis. * No tricuspid regurgitation. Aortic Valve * The aortic valve is not well visualized. * No hemodynamically significant valvular aortic stenosis. * There is no significant aortic regurgitation. Pulmonic Valve * The pulmonary valve is not well seen, but the Doppler examination is normal without significant regurgitation or stenosis. Great Vessels * The aortic root is normal size. Pericardium/Pleural * There is no pericardial effusion. Left Ventricular Diastolic Function * Diastolic dysfunction, Grade II (pseudonormalization pattern). MMode 2D Measurements and Calculations IVSd 1.3 cm LVIDd 5.4 cm LVIDs 3.7 cm LVPWd 1.4 cm IVS/LVPW 0.89 FS 31.6 % EDV(Teich) 141.2 ml ESV(Teich) 57.8 ml EF(Teich) 59.1 % EDV(cubed) 157.3 ml ESV(cubed) 50.3 ml EF(cubed) 68.0 % LV mass(C)d 309.0 grams LV mass(C)dI 136.4 grams/m\S\2 SV(Teich) 83.4 ml SI(Teich) 36.8 ml/m\S\2 SV(cubed) 107.0 ml SI(cubed) 47.2 ml/m\S\2 ACS 1.8 cm LA dimension 2.6 cm asc Aorta Diam 3.2 cm LVAd ap4 39.2 cm\S\2 LVLd ap4 8.0 cm EDV(MOD-sp4) 158.9 ml EDV(sp4-el) 163.3 ml LVAs ap4 22.2 cm\S\2 LVLs ap4 6.3 cm ESV(MOD-sp4) 62.6 ml ESV(sp4-el) 66.0 ml EF(MOD-sp4) 60.6 % EF(sp4-el) 59.6 % LVAd ap2 32.9 cm\S\2 LVLd ap2 8.1 cm EDV(MOD-sp2) 111.0 ml EDV(sp2-el) 113.0 ml LVAs ap2 18.5 cm\S\2 LVLs ap2 6.4 cm ESV(MOD-sp2) 43.4 ml ESV(sp2-el) 45.5 ml EF(MOD-sp2) 60.9 % EF(sp2-el) 59.8 % LVLd %diff 1.4 % EDV(MOD-bp) 133.8 ml LVLs %diff 0.56 % ESV(MOD-bp) 51.9 ml EF(MOD-bp) 61.2 % SV(MOD-sp4) 96.3 ml SI(MOD-sp4) 42.5 ml/m\S\2 SV(MOD-sp2) 67.7 ml SI(MOD-sp2) 29.9 ml/m\S\2 SV(MOD-bp) 81.9 ml SI(MOD-bp) 36.1 ml/m\S\2 SV(sp4-el) 97.3 ml SI(sp4-el) 43.0 ml/m\S\2 SV(sp2-el) 67.5 ml SI(sp2-el) 29.8 ml/m\S\2 Doppler Measurements and Calculations MV E max imani 148.2 cm/sec MV A max imani 120.4 cm/sec MV E/A 1.2 MV dec time 0.21 sec Ao V2 max 194.1 cm/sec Ao max PG 15.1 mmHg Ao max PG (full) 9.0 mmHg LV V1 max PG 6.1 mmHg LV V1 max 123.6 cm/sec PA V2 max 148.0 cm/sec PA max PG 8.8 mmHg PA acc slope 1134.1 cm/sec\S\2 PA acc time 0.11 sec PI end-d imani 100.4 cm/sec PA pr(Accel) 28.3 mmHg
[2017-10-04] MEDS ORDERED: MAGNESIUM SULFATE 1GM / D5W 1 GM in PREMIXED IN D5W 100 ML IV ONE (10:15)
[2017-10-04] MEDS ORDERED: SODIUM PHOSPHATE 3 MMOL/1 ML INFUSION IV SCH (10:15)
[2017-10-04] MEDS ORDERED: INSULIN PROTOCOL GOAL RANGE ONE (10:45)
[2017-10-04] MEDS ORDERED: INSULIN IV INFUSION PROTOCOL SCH (10:45)
[2017-10-04] MEDS ORDERED: PEPTAMEN INTENSE VHP 1000ML BAG OG PRN (10:45)
[2017-10-04] MEDS ORDERED: MODERATE STRESS LEVEL ONE (10:45)
[2017-10-04] MEDS: LANSOPRAZOLE SOLUTAB 30 MG NG SCH (10:51)
--- NOTE | 2017-10-04 10:57 | Pharmacy Progress Note ---
Glycemic Control Progress Note Date of Service Oct 04, 2017. Scope Glycemic Pharmacist consulted for glycemic control to write orders per [facility] inpatient glycemic control protocol. Objective Accuchecks BSG (last 24hrs): Test 10/03/17 11:37 10/03/17 15:58 10/03/17 19:50 10/04/17 00:10 Random Glucose 113 mg/dl (70-99) Bedside Glucose 149 mg/dl (70-90) 172 mg/dl (70-90) 160 mg/dl (70-90) Test 10/04/17 03:37 10/04/17 04:09 Bedside Glucose 173 mg/dl (70-90) Random Glucose 169 mg/dl (70-99) HbA1c: Test 10/04/17 04:09 Hemoglobin A1c 6.5 % (4.5-5.6) H Recent Pertinent Medications The patient is currently receiving: * Basal insulin: Lantus 55 units SQ x 1 given yesterday AM prior to admission * Correctional Insulin: Novolog Correction per scale Q 4 hours Goal Range: Low 140 mg/dL - High 180 mg/dL Correction Factor: 10 mg/dL/unit * Prandial insulin: Per carb ratio of 1 unit per 3 grams CHO consumed Outpatient Anti-Diabetic Meds Lantus 55 units SQ Q AM Novolog 24 units SQ w/ meals Assessment & Plan ASSESSMENT: 10/04/17 * [facility] resident admitted for respiratory failure and encephalopathy * Patient does have a h/o COPD and is O2 dependent. Initial impression is COPD exacerbation / PNX. * She is currently intubated, sedated, and is receiving empiric IV abx therapy, bronchodilators, and high dose IV steroids * She has a h/o of T2DM managed with basal/bolus SQ regimen as outpt * Glycemic control service has followed this patient on multiple past hospitalizations, prior consult data reviewed * Thus far the patient's glycemic control has been acceptable, however she will be starting enteral feedings today. Based upon past experience she is very sensitive to carb intake while on steroid therapy. I anticipate decline in glycemic control as feeds started and advanced. * Given the difficulty obtaining glycemic targets with continuous tube feeds, recommend IV insulin infusion per protocol to maintain glycemic control while acutely ill. This gives us the greatest flexibility for achieving control while minimizing risks should the tube feeds be held or not tolerated. PLAN FOR INPATIENT GLYCEMIC CONTROL: * Starting IV insulin infusion per moderate stress protocol * Goal Range 120 - 200 mg/dl * In the critical care setting, continuous IV insulin infusion has been shown to be the best method for achieving glycemic targets. * Please note that the plan above was derived based on current level of insulin resistance and hospital stress. These recommendations are appropriate for inpatient admission only. Plan of care upon discharge will need to be reassessed to avoid potential outpatient hypo/hyperglycemia. Thank you.
[2017-10-04] MEDS ORDERED: SODIUM PHOSPHATE INJ 15 MMOL in SODIUM CHLORIDE 0.9% 250ML 250 ML IV ONE (11:15)
--- NOTE | 2017-10-04 11:45 | Critical Care Progress Note ---
Critical Care Progress Note Date of Service Oct 04, 2017. ICU Day ICU Day Number: [address] Daniel Subjective Patient awakens to voice and tactile stimulation. Denies chest pain or breathing discomfort before going back to sleep. Unable to attain full ROS due to mentation. Objective GENERAL: awakens with stimulation, obese, lying in bed, no acute distress, non- toxic. Remains intubated HEAD: NC/AT EYES: Normal sclera and conjunctiva NECK: No adenopathy LUNGS: Clear to auscultation. Normal chest wall mechanics. CTAB. No crepitations , crackles, or wheezes HEART: RRR, S1 and S2 normal, no murmurs appreciated ABDOMEN: Soft, not distended, normo-active bowel sounds, no masses, no rebound or guarding. SKIN: Warm, pink, dry. No erythema, rashes, or bruising. EXTREMITIES: Grossly normal. No pitting edema. Calves supple. NEURO: Alert intermittently. No focal deficits. Current SOFA Score SOFA Score Response (Comments) Value Platelets (x10) > 150 0 Bilirubin (mg/dL) < 1.2 0 Dee Coma Score 6 - 9 3 Level of Hypotension No Hypotension 0 Creatinine (mg/dL) < 1.2 0 Total 3 Assessment & Plan Reason critically ill: 56 year old female presents with acute hypoxic respiratory failure necessitating intubation for airway protection. Neuro - CAM positive. - RASS -3 - Sedatives: Versed - 4, Fentanyl 50 - Continue citalopram for depression - Neurology consulted for subacute deterioration in ability (walking, breathing) , on a background autoimmune hepatitis and skin hypo/hyperpigmented spots - acetylcholine receptor binding antibody levels pending CV - Vitals HR 50s, BP 130-150s - Hemodynamically stable. EKG unchanged, QTc 453. Serial troponin negative. - Continue home meds: aspirin, clopidogrel, atorvastatin - Metoprolol held for bradycardia - One time dose IV furosemide 40mg Resp - On ventilator support: assisted control. RR 12, Vt 650ml, PEEP 5, FiO2 60% - CXR: Cardiomegaly with persistent interstitial and alveolar pulmonary edema, small bilateral pleural effusions and bibasilar consolidative opacities suggesting atelectasis or pneumonia - Continue methylprednisone 60mg q8h and nebulizers: Atrovent and Xopenex GI//Nutrition - Diet: Starting tube feeding today with Peptamen - Prophylaxis: lansoprazole - Hyde in situ Renal/electrolytes - Labs show deranged Na+, Mg+, PO4+ - supplemented. - Recheck electrolytes at 16:00, especially in view of commencing insulin drip ID - Blood Cx growing G+ cocci in 1/2 tubes - ?contamination - Urine Cx growing GNB - Wound Cx growing GNB - Sputum Cx pending - Antibiotics: Levofloxacin Endo - HbA1c 6.5, fasting lipids acceptable - Glucose: 140-170s while NPO. - Will start insulin drip with feeding - Continue levothyroxine 200mcg Heme - H/H stable. No leukocytosis. Platelets WNL Access/Line - 2 peripheral IVs VTE Prophylaxis - Heparin SC q8h Resident Physician Supervision Note: I was present with Dr. Bronson during the history and exam. I discussed the case with the resident and agree with the findings and plan as documented in the note. Any exceptions or clarifications are listed here: [None] I suspect hypoventilation substantial enough that she may require trach. Will attempt to establish vent drive. Neuro evaluation for completeness. Documented By: Kodak Daniel Consults & Procedures Consultants: Gear Repair Supervisor Neurology Procedures: Intubation 10/03/17 Data Medications: Current Inpatient Medications Medications (Trade) Dose Ordered Sig/Abdi Route Start Time Stop Time Status Last Admin Dose Admin Ioversol (Optiray 320) 100 ml UD PRN IV 10/03/17 12:30 10/07/17 12:29 Heparin Sodium (Porcine) (Heparin Sq 5000 Unit/0.5ml) 5,000 unit Q8 SQ 10/03/17 22:00 11/02/17 21:59 10/04/17 06:28 5,000 UNIT Acetaminophen (Tylenol Tab) 650 mg Q4H PRN PO 10/03/17 14:15 11/02/17 14:14 Methylprednisolone Sodium Succinate 60 mg/Syringe 0.96 ml @ 1.5 mls/min Q8@0400,1200,2000 IV 10/03/17 20:00 11/02/17 19:59 10/04/17 10:53 1.5 MLS/MIN Levofloxacin 750 mg/Prmx 150 ml @ 100 mls/hr Q24H IV 10/03/17 16:00 10/10/17 15:59 10/03/17 16:23 100 MLS/HR Miscellaneous Information (Consult Glycemic Management Pharmacy) 1 ea UD PRN N/A 10/03/17 15:26 11/02/17 15:25 Glucose (Glucose 40% Gel) 15-30 GRAMS 15 GRAMS... UD PRN PO 10/03/17 15:15 11/02/17 15:14 Glucose (Glucose Chew Tab) 4-8 Tablets 4 Tabl... UD PRN PO 10/03/17 15:15 11/02/17 15:14 Dextrose (Dextrose 50% 50ML Syringe) 25-50ML OF 50% DW IV FOR... UD PRN IV 10/03/17 15:15 11/02/17 15:14 Glucagon (Glucagon Inj) 1 mg UD PRN SQ 10/03/17 15:15 11/02/17 15:14 Atorvastatin Calcium (Lipitor Tab) 40 mg DAILY PO 10/04/17 09:00 11/03/17 08:59 10/04/17 08:36 40 MG Citalopram Hydrobromide (celeXA TAB) 20 mg QAM PO 10/04/17 09:00 11/03/17 08:59 10/04/17 08:36 20 MG Clopidogrel Bisulfate (plAVix TAB) 75 mg DAILY PO 10/04/17 09:00 11/03/17 08:59 10/04/17 08:35 75 MG Levothyroxine Sodium (Synthroid Tab) 200 mcg DAILYBB PO 10/04/17 06:00 11/03/17 05:59 10/04/17 06:23 200 MCG Metoprolol Tartrate (Lopressor Tab) 12.5 mg BID PO 10/03/17 21:00 11/02/17 20:59 Levofloxacin (Consult) 1 ea UD PRN N/A 10/03/17 15:45 11/02/17 15:44 Midazolam HCl 250 ml @ 0 mls/hr Q0M IV 10/03/17 18:01 11/02/17 18:00 Fentanyl Citrate 250 ml @ 0 mls/hr Q0M PRN IV 10/03/17 18:15 10/17/17 18:14 10/04/17 01:53 35 MLS/HR Ipratropium [place] (Atrovent Hfa Inhaler) 4 puffs Q4R INH 10/03/17 20:00 12/6/17 19:59 10/04/17 10:37 4 PUFFS Levalbuterol (Xopenex Hfa Inhaler) 4 puffs Q4R INH 10/03/17 20:00 11/02/17 19:59 10/04/17 10:37 4 PUFFS Lansoprazole (Prevacid Solutab) 30 mg DAILY NG 10/04/17 09:00 11/03/17 08:59 10/04/17 10:51 30 MG Aspirin (Aspirin Chew) 81 mg DAILY NG 10/04/17 09:00 11/03/17 08:59 10/04/17 08:36 81 MG Magnesium Sulfate 1 gm/Prmx 100 ml @ 100 mls/hr ONE ONCE IV 10/04/17 10:15 10/04/17 11:14 10/04/17 10:51 100 MLS/HR Sodium Phosphate 15 mmol/Sodium Chloride 255 ml @ 88 mls/hr ONE ONCE IV 10/04/17 11:15 10/04/17 14:08 10/04/17 10:51 88 MLS/HR Insulin Human Regular (Insulin IV Infusion Protocol) 1 ea Q30M N/A 10/04/17 10:45 11/03/17 10:44 Insulin Aspart (novoLOG ASPART) SLIDING SCALE PCHS SC 10/04/17 12:00 11/03/17 11:59 Enteral Nutritional Formula (Peptamen Intense VHP) 1,000 ml UD PRN OG 10/04/17 10:45 11/03/17 10:44 UNV Vital Signs: Date Time Temp Pulse Resp B/P (MAP) Pulse Ox O2 Delivery O2 Flow Rate FiO2 10/04/17 10:38 60 10/04/17 10:00 59 14 129/52 (77) 92 Mechanical Ventilator 60 10/04/17 08:00 60 10/04/17 08:00 51 12 140/58 (85) 90 Mechanical Ventilator 60 10/04/17 08:00 92 Mechanical Ventilator 60 10/04/17 07:48 60 10/04/17 06:00 51 16 154/63 (93) 92 Mechanical Ventilator 65 10/04/17 04:00 65 10/04/17 04:00 90 Mechanical Ventilator 65 10/04/17 04:00 65 10/04/17 04:00 37.1 56 16 115/46 (69) 87 Mechanical Ventilator 65 10/04/17 02:00 54 16 153/54 (87) 90 Mechanical Ventilator 65 10/04/17 00:47 65 10/04/17 00:01 37.1 55 16 151/63 (92) 90 Mechanical Ventilator 65 10/03/17 23:59 65 10/03/17 23:59 90 Mechanical Ventilator 65 10/03/17 23:46 65 10/03/17 22:00 55 16 154/69 (97) 91 Mechanical Ventilator 70 10/03/17 21:45 60 10/03/17 20:00 92 Mechanical Ventilator 50 10/03/17 20:00 36.8 57 20 134/80 (98) 90 Mechanical Ventilator 50 10/03/17 20:00 50 10/03/17 18:45 50 10/03/17 18:16 59 9 111/63 (79) 98 10/03/17 18:15 59 0 98 10/03/17 18:11 62 8 104/61 (75) 98 10/03/17 18:06 64 3 103/56 (72) 98 10/03/17 18:01 67 23 110/57 (74) 98 10/03/17 18:00 68 20 98 10/03/17 17:56 70 109 112/61 (78) 97 10/03/17 17:51 71 30 103/63 (76) 97 10/03/17 17:46 71 18 124/68 (86) 94 10/03/17 17:45 100 10/03/17 17:45 72 21 95 10/03/17 17:41 73 23 98/58 (71) 94 10/03/17 17:36 74 18 107/61 (76) 90 10/03/17 17:31 74 20 134/71 (92) 89 10/03/17 17:30 76 20 90 10/03/17 17:26 81 18 160/89 (112) 87 10/03/17 17:21 78 19 134/72 (92) 93 10/03/17 17:16 67 24 170/77 (108) 79 10/03/17 17:15 75 26 90 10/03/17 17:11 76 21 173/77 (109) 92 10/03/17 17:06 69 17 141/70 (93) 92 10/03/17 17:01 71 20 171/74 (106) 90 10/03/17 17:00 71 18 90 10/03/17 16:56 72 19 137/68 (91) 93 10/03/17 16:51 67 25 122/72 (89) 85 10/03/17 16:45 61 13 98 10/03/17 16:30 61 21 97 10/03/17 16:15 59 22 97 10/03/17 16:01 60 25 118/55 (76) 94 10/03/17 16:00 59 19 94 10/03/17 15:41 36.9 64 20 107/48 90 Oxyhood 15.0 10/03/17 15:11 66 90 50 10/03/17 14:11 90 BiPAP 40 10/03/17 14:02 67 18 109/47 96 BiPAP 60 10/03/17 14:02 61 92 50 10/03/17 13:33 64 96 60 10/03/17 13:05 61 20 135/63 95 Nebulizer 7.0 10/03/17 12:51 63 20 93 Nebulizer 10/03/17 12:32 129/55 10/03/17 12:31 60 26 96 Nebulizer 10/03/17 12:26 58 20 93 10/03/17 12:21 57 29 93 10/03/17 12:16 57 18 95 10/03/17 12:11 57 19 95 10/03/17 12:09 99/56 10/03/17 12:07 58 10/03/17 12:06 57 18 95 10/03/17 12:05 57 20 99/56 96 Nebulizer 10/03/17 12:01 59 22 93 10/03/17 11:57 61 20 92 Nasal Cannula 6.0 10/03/17 11:44 36.5 62 26 134/57 93 Nasal Cannula 6.0 10/03/17 11:44 93 Nasal Cannula 6.0 10/03/17 11:40 93 Nasal Cannula 6.0 10/03/17 11:26 134/57 Laboratory Results: Last 24 Hours Test 10/03/17 11:27 10/03/17 11:37 10/03/17 12:59 10/03/17 15:26 Osmolality 278 mOsm/kg White Blood Count 7.37 K/uL Red Blood Count 3.90 M/uL Hemoglobin 11.7 g/dL Hematocrit 38.2 % Mean Corpuscular Volume 97.9 fL Mean Corpuscular Hemoglobin 30.0 pg Mean Corpuscular Hemoglobin Concent 30.6 g/dl Platelet Count 226 K/uL Mean Platelet Volume 8.6 fL Neutrophils (%) (Auto) 75.3 % Lymphocytes (%) (Auto) 18.3 % Monocytes (%) (Auto) 5.2 % Eosinophils (%) (Auto) 0.8 % Basophils (%) (Auto) 0.1 % Neutrophils # (Auto) 5.55 K/uL Lymphocytes # (Auto) 1.35 K/uL Monocytes # (Auto) 0.38 K/uL Eosinophils # (Auto) 0.06 K/uL Basophils # (Auto) 0.01 K/uL RDW Standard Deviation 47.8 fL RDW Coefficient of Variation 13.4 % Immature Granulocyte % (Auto) 0.3 % Immature Granulocyte # (Auto) 0.02 K/uL Prothrombin Time 10.5 SECONDS Prothromb Time International Ratio 1.0 Activated Partial Thromboplast Time 30.4 SECONDS Partial Thromboplastin Ratio 1.2 Sodium Level 127 mmol/L Potassium Level 5.1 mmol/L Chloride Level 85 mmol/L Carbon Dioxide Level 40 mmol/L Anion Gap 1.0 mmol/L Blood Urea Nitrogen 16 mg/dl Creatinine 0.34 mg/dl Est Creatinine Clear Calc Drug Dose 242.6 ml/min Estimated GFR () 141.4 Estimated GFR (Non- 122.0 BUN/Creatinine Ratio 46.0 Random Glucose 113 mg/dl Calcium Level 9.3 mg/dl Troponin I < 0.015 ng/ml Pro-B-Type Natriuretic Peptide 1014 pg/ml Arterial Blood pH 7.21 Arterial Blood Partial Pressure CO2 103 mmHg Arterial Blood Partial Pressure O2 83 mm/Hg Arterial Blood HCO3 40 mmol/L Arterial Blood Oxygen Saturation 93.8 % Arterial Blood Base Excess 8.7 mEq/L Arterial Blood Gas Delivery 7L Alon Test POS Urine Color YELLOW Urine Appearance CLOUDY Urine pH 8.0 Urine Specific [place] 1.027 Urine Protein TRACE Urine Glucose (UA) NEG Urine Ketones NEG Urine Occult Blood TRACE Urine Nitrite POS Urine Bilirubin NEG Urine Urobilinogen NEG Urine Leukocyte Esterase LARGE Urine WBC (Auto) >30 /hpf Urine RBC (Auto) 0-4 /hpf Urine Hyaline Casts (Auto) 1-5 /lpf Urine Epithelial Cells (Auto) 10-20 /lpf Urine Bacteria (Auto) 4+ Urine Pathogenic Casts /lpf Urine Osmolality 479 mOms/kg Test 10/03/17 15:45 10/03/17 15:58 10/03/17 16:02 10/03/17 16:29 Lactic Acid Level 0.8 mmol/L Phosphorus Level 3.6 mg/dl Magnesium Level 1.8 mg/dl Total Bilirubin 0.3 mg/dl Direct Bilirubin 0.1 mg/dl Aspartate Amino Transf (AST/SGOT) 39 U/L Alanine Aminotransferase (ALT/SGPT) 86 U/L Alkaline Phosphatase 152 U/L Total Creatine Kinase 72 U/L Creatine Kinase MB 2.6 ng/ml Creatine Kinase MB Ratio 3.6 Troponin I < 0.015 ng/ml Total Protein 7.3 gm/dl Albumin 3.1 gm/dl Bedside Glucose 149 mg/dl Blood Gas Sample Site L Radial Bedside Blood Gas pH (LAB) 7.26 Bedside Blood Gas pCO2 (LAB) 99 mmHg Bedside Blood Gas pO2 (LAB) 77 mmHg Bedside Blood Gas HCO3 (LAB) 45 meq/L Bedside Blood Gas Total CO2 > 40 mEq/l Bedside Blood Gas Base Excess (LAB) 17.0 meq/L Bedside Blood Gas O2 Saturation 92.0 % Alon Test Pass Oxygen Delivery Device BIPAP Bedside Oxygen Rate (breaths/min) 19 Bedside FiO2 50 % Blood Gas IPAP 14 Ammonia 25.9 umol/L Test 10/03/17 18:35 10/03/17 19:50 10/03/17 20:00 10/04/17 00:10 Blood Gas Sample Site L Radial Bedside Blood Gas pH (LAB) 7.41 Bedside Blood Gas pCO2 (LAB) 63 mmHg Bedside Blood Gas pO2 (LAB) 85 mmHg Bedside Blood Gas HCO3 (LAB) 40 meq/L Bedside Blood Gas Total CO2 > 40 mEq/l Bedside Blood Gas Base Excess (LAB) 15.0 meq/L Bedside Blood Gas O2 Saturation 96.0 % Alon Test Pass Oxygen Delivery Device Ventilator Bedside Oxygen Rate (breaths/min) 20 Blood Gas Minute Ventilation 11.7 Bedside FiO2 100 % Blood Gas Tidal Volume 650 Blood Gas PEEP 5 Bedside Glucose 172 mg/dl 160 mg/dl Total Creatine Kinase U/L Creatine Kinase MB 2.7 ng/ml Creatine Kinase MB Ratio Troponin I < 0.015 ng/ml Chemistry Specimen Hemolysis Test 10/04/17 03:37 10/04/17 04:09 10/04/17 06:03 Bedside Glucose 173 mg/dl White Blood Count 6.70 K/uL Red Blood Count 3.98 M/uL Hemoglobin 12.4 g/dL Hematocrit 37.6 % Mean Corpuscular Volume 94.5 fL Mean Corpuscular Hemoglobin 31.2 pg Mean Corpuscular Hemoglobin Concent 33.0 g/dl Platelet Count 202 K/uL Mean Platelet Volume 8.4 fL Neutrophils (%) (Auto) 84.3 % Lymphocytes (%) (Auto) 12.5 % Monocytes (%) (Auto) 2.8 % Eosinophils (%) (Auto) 0.0 % Basophils (%) (Auto) 0.0 % Neutrophils # (Auto) 5.64 K/uL Lymphocytes # (Auto) 0.84 K/uL Monocytes # (Auto) 0.19 K/uL Eosinophils # (Auto) 0.00 K/uL Basophils # (Auto) 0.00 K/uL RDW Standard Deviation 45.2 fL RDW Coefficient of Variation 13.1 % Immature Granulocyte % (Auto) 0.4 % Immature Granulocyte # (Auto) 0.03 K/uL Venous Blood pH 7.44 Venous Blood Partial Pressure CO2 56 mmHg Venous Blood Partial Pressure O2 47 mmHg Venous Blood HCO3 37 mmol/L Venous Blood Oxygen Saturation 83.0 % Venous Blood Base Excess 10.7 mEq/L Sodium Level 128 mmol/L Potassium Level 3.8 mmol/L Chloride Level 88 mmol/L Carbon Dioxide Level 34 mmol/L Anion Gap 6.0 mmol/L Blood Urea Nitrogen 12 mg/dl Creatinine 0.40 mg/dl Est Creatinine Clear Calc Drug Dose 206.2 ml/min Estimated GFR () 134.0 Estimated GFR (Non- 115.6 BUN/Creatinine Ratio 29.9 Random Glucose 169 mg/dl Estimated Average Glucose 140 mg/dl Hemoglobin A1c 6.5 % Calcium Level 9.2 mg/dl Phosphorus Level 2.2 mg/dl Magnesium Level 1.6 mg/dl Total Bilirubin 0.4 mg/dl Direct Bilirubin < 0.1 mg/dl Aspartate Amino Transf (AST/SGOT) 26 U/L Alanine Aminotransferase (ALT/SGPT) 70 U/L Alkaline Phosphatase 139 U/L Total Creatine Kinase 74 U/L Creatine Kinase MB 2.0 ng/ml Creatine Kinase MB Ratio 2.7 Troponin I < 0.015 ng/ml Total Protein 7.1 gm/dl Albumin 2.9 gm/dl Triglycerides Level 116 mg/dl Cholesterol Level 138 mg/dl HDL Cholesterol 70 mg/dl LDL Cholesterol, Calculated 45 mg/dl VLDL Cholesterol, Calculated 23 mg/dl Cholesterol/HDL Ratio 2.0 Blood Gas Sample Site R Radial Bedside Blood Gas pH (LAB) 7.49 Bedside Blood Gas pCO2 (LAB) 51 mmHg Bedside Blood Gas pO2 (LAB) 53 mmHg Bedside Blood Gas HCO3 (LAB) 39 meq/L Bedside Blood Gas Total CO2 > 40 mEq/l Bedside Blood Gas Base Excess (LAB) 15.0 meq/L Bedside Blood Gas O2 Saturation 88.0 % Alon Test Pass Oxygen Delivery Device Ventilator Resident Tracking Resident Involvement: Resident Care Provided Care Provided: Adult Hospital Medicine
[2017-10-04] MEDS ORDERED: INSULIN REGULAR IV SCH (13:00)
[2017-10-04] MEDS ORDERED: INSULIN REGULAR IV ONE (13:00)
[2017-10-04] MEDS: INSULIN REGULAR 250 UNITS in SODIUM CHLORIDE 0.9% 250ML 250 ML IV SCH (13:49)
--- NOTE | 2017-10-04 14:09 | Neurology Consultation ---
Neurology Consultation Date of Consultation: Oct 04, 2017. 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 She presented with SOB and that started 2 days ago. [facility] nurse , reported 09/30 she was at her baseline which she has austen lift for transfers. This morning, the patient was complaining of SOB but O2 saturation on 2L NC was 95%. Ate breakfast without a problem. A few hours later, was found to be in respiratory distress, using accessory muscles with an O2 saturation of 84% and CP. Her O2 was increase to 6L and EMS was called. She was confused on arrival to ED and then after a CXR she was unresponsive. While they were preparing for intubation she woke up and responded to verbal commands. She was started on bipap and O2 saturation improved to 90%. Currently she is intubated she is able to shake her head yes no. denies CP, SOB , but would like tube removed. +headache Past Medical/Surgical History Medical Problems: (1) Abnormal ECG Status: Acute (2) Abnormal results of liver function studies Status: Acute (3) Cellulitis Status: Acute (4) Chest pain Status: Acute (5) COPD (chronic obstructive pulmonary disease) Status: Acute (6) COPD (chronic obstructive pulmonary disease) Status: Acute (7) COPD exacerbation Status: Acute (8) Dizziness Status: Acute (9) Dizziness Status: Acute (10) Gangrene Status: Acute (11) Hypercapnemia Status: Acute (12) Hyperglycemia Status: Acute (13) Hyponatremia Status: Acute (14) Hypoxia Status: Acute (15) Morbid obesity Status: Acute (16) Open abdominal wall wound Status: Acute (17) Pneumonia Status: Acute (18) Precordial chest pain Status: Acute (19) Right foot infection Status: Acute (20) Substernal chest pain Status: Acute (21) Uncontrolled diabetes mellitus Status: Acute (22) Weakness Status: Acute (23) Yeast infection Status: Acute Family History Father: lung disease Mother: heart disease Sibling(s): lung disease, heart disease, diabetes Social History Smoking Status: Current every day smoker Drug Use: none Marital Status: single Housing Status: lives with family Occupation Status: disabled Allergies Coded Allergies: Penicillins (Verified Allergy, Intermediate, RASH, 08/31/17) Current Inpatient Medications Current Inpatient Medications Medications (Trade) Dose Ordered Sig/Abdi Route Start Time Stop Time Status Last Admin Dose Admin Ioversol (Optiray 320) 100 ml UD PRN IV 10/03/17 12:30 10/07/17 12:29 Heparin Sodium (Porcine) (Heparin Sq 5000 Unit/0.5ml) 5,000 unit Q8 SQ 10/03/17 22:00 11/02/17 21:59 10/04/17 06:28 5,000 UNIT Acetaminophen (Tylenol Tab) 650 mg Q4H PRN PO 10/03/17 14:15 11/02/17 14:14 Methylprednisolone Sodium Succinate 60 mg/Syringe 0.96 ml @ 1.5 mls/min Q8@0400,1200,2000 IV 10/03/17 20:00 11/02/17 19:59 10/04/17 10:53 1.5 MLS/MIN Levofloxacin 750 mg/Prmx 150 ml @ 100 mls/hr Q24H IV 10/03/17 16:00 10/10/17 15:59 10/03/17 16:23 100 MLS/HR Miscellaneous Information (Consult Glycemic Management Pharmacy) 1 ea UD PRN N/A 10/03/17 15:26 11/02/17 15:25 Glucose (Glucose 40% Gel) 15-30 GRAMS 15 GRAMS... UD PRN PO 10/03/17 15:15 11/02/17 15:14 Glucose (Glucose Chew Tab) 4-8 Tablets 4 Tabl... UD PRN PO 10/03/17 15:15 11/02/17 15:14 Dextrose (Dextrose 50% 50ML Syringe) 25-50ML OF 50% DW IV FOR... UD PRN IV 10/03/17 15:15 11/02/17 15:14 Glucagon (Glucagon Inj) 1 mg UD PRN SQ 10/03/17 15:15 11/02/17 15:14 Atorvastatin Calcium (Lipitor Tab) 40 mg DAILY PO 10/04/17 09:00 11/03/17 08:59 10/04/17 08:36 40 MG Citalopram Hydrobromide (celeXA TAB) 20 mg QAM PO 10/04/17 09:00 11/03/17 08:59 10/04/17 08:36 20 MG Clopidogrel Bisulfate (plAVix TAB) 75 mg DAILY PO 10/04/17 09:00 11/03/17 08:59 10/04/17 08:35 75 MG Levothyroxine Sodium (Synthroid Tab) 200 mcg DAILYBB PO 10/04/17 06:00 11/03/17 05:59 10/04/17 06:23 200 MCG Metoprolol Tartrate (Lopressor Tab) 12.5 mg BID PO 10/03/17 21:00 11/02/17 20:59 Levofloxacin (Consult) 1 ea UD PRN N/A 10/03/17 15:45 11/02/17 15:44 Midazolam HCl 250 ml @ 0 mls/hr Q0M IV 10/03/17 18:01 11/02/17 18:00 Fentanyl Citrate 250 ml @ 0 mls/hr Q0M PRN IV 10/03/17 18:15 10/17/17 18:14 10/04/17 01:53 35 MLS/HR Ipratropium [place] (Atrovent Hfa Inhaler) 4 puffs Q4R INH 10/03/17 20:00 11/02/17 19:59 10/04/17 10:37 4 PUFFS Levalbuterol (Xopenex Hfa Inhaler) 4 puffs Q4R INH 10/03/17 20:00 11/02/17 19:59 10/04/17 10:37 4 PUFFS Lansoprazole (Prevacid Solutab) 30 mg DAILY NG 10/04/17 09:00 11/03/17 08:59 10/04/17 10:51 30 MG Aspirin (Aspirin Chew) 81 mg DAILY NG 10/04/17 09:00 11/03/17 08:59 10/04/17 08:36 81 MG Sodium Phosphate 15 mmol/Sodium Chloride 255 ml @ 88 mls/hr ONE ONCE IV 10/04/17 11:15 10/04/17 14:08 10/04/17 10:51 88 MLS/HR Insulin Aspart (novoLOG ASPART) SLIDING SCALE PCHS SC 10/04/17 12:00 11/03/17 11:59 Enteral Nutritional Formula (Peptamen Intense VHP) 1,000 ml UD PRN OG 10/04/17 10:45 11/03/17 10:44 Insulin Human Regular 250 units/ Sodium Chloride 252.5 ml @ 0 mls/hr Q24H IV 10/04/17 13:00 11/03/17 12:59 Physical Exam Vital Signs (Past 24 Hrs): Date Time Temp Pulse Resp B/P (MAP) Pulse Ox O2 Delivery O2 Flow Rate FiO2 10/04/17 12:00 36.8 59 12 136/60 (85) 91 Mechanical Ventilator 60 10/04/17 12:00 CPAP 60 Mechanical Ventilator 10/04/17 12:00 60 10/04/17 10:38 60 10/04/17 10:00 59 14 129/52 (77) 92 Mechanical Ventilator 60 10/04/17 08:00 60 10/04/17 08:00 51 12 140/58 (85) 90 Mechanical Ventilator 60 10/04/17 08:00 92 Mechanical Ventilator 60 10/04/17 07:48 60 10/04/17 06:00 51 16 154/63 (93) 92 Mechanical Ventilator 65 10/04/17 04:00 65 10/04/17 04:00 90 Mechanical Ventilator 65 10/04/17 04:00 65 10/04/17 04:00 37.1 56 16 115/46 (69) 87 Mechanical Ventilator 65 10/04/17 02:00 54 16 153/54 (87) 90 Mechanical Ventilator 65 10/04/17 00:47 65 10/04/17 00:01 37.1 55 16 151/63 (92) 90 Mechanical Ventilator 65 10/03/17 23:59 65 10/03/17 23:59 90 Mechanical Ventilator 65 10/03/17 23:46 65 10/03/17 22:00 55 16 154/69 (97) 91 Mechanical Ventilator 70 10/03/17 21:45 60 10/03/17 20:00 92 Mechanical Ventilator 50 10/03/17 20:00 36.8 57 20 134/80 (98) 90 Mechanical Ventilator 50 10/03/17 20:00 50 10/03/17 18:45 50 10/03/17 18:16 59 9 111/63 (79) 98 10/03/17 18:15 59 0 98 11/6/17 18:11 62 8 104/61 (75) 98 10/03/17 18:06 64 3 103/56 (72) 98 10/03/17 18:01 67 23 110/57 (74) 98 10/03/17 18:00 68 20 98 10/03/17 17:56 70 109 112/61 (78) 97 10/03/17 17:51 71 30 103/63 (76) 97 10/03/17 17:46 71 18 124/68 (86) 94 10/03/17 17:45 100 10/03/17 17:45 72 21 95 10/03/17 17:41 73 23 98/58 (71) 94 10/03/17 17:36 74 18 107/61 (76) 90 10/03/17 17:31 74 20 134/71 (92) 89 10/03/17 17:30 76 20 90 10/03/17 17:26 81 18 160/89 (112) 87 10/03/17 17:21 78 19 134/72 (92) 93 10/03/17 17:16 67 24 170/77 (108) 79 10/03/17 17:15 75 26 90 10/03/17 17:11 76 21 173/77 (109) 92 10/03/17 17:06 69 17 141/70 (93) 92 10/03/17 17:01 71 20 171/74 (106) 90 10/03/17 17:00 71 18 90 10/03/17 16:56 72 19 137/68 (91) 93 10/03/17 16:51 67 25 122/72 (89) 85 10/03/17 16:45 61 13 98 10/03/17 16:30 61 21 97 10/03/17 16:15 59 22 97 10/03/17 16:01 60 25 118/55 (76) 94 10/03/17 16:00 59 19 94 10/03/17 15:41 36.9 64 20 107/48 90 Oxyhood 15.0 10/03/17 15:11 66 90 50 10/03/17 14:11 90 BiPAP 40 10/03/17 14:02 67 18 109/47 96 BiPAP 60 10/03/17 14:02 61 92 50 Physical Exam: Constitutional: appearance nourished, obese Ears, Nose, Mouth and Throat: mucous membranes moist, no injection and skin normal, eyes normal Cardiovascular: normal S-1 and S-2 and regular rate and rhythm Respiratory: harsh breath sounds Musculoskeletal: bilaterally peripheral edema Skin: no stigmata of neurocutaneous disease noted and normal and intact Eyes: extraocular muscles intact (EOMI) and pupils equal, round and reactive to light (PERRL) NEUROLOGIC EXAMINATION: Mental status: Alert intubated answer with head nod to simple questions Cranial Nerves facial symmetry Reflexes: UE reflexes 2/5 LE decreased. plantar flex intact on right absent on left Sensory: no sensory deficit to cool touch or vibration Coordination: finger to nose without bi pass Gait/Stance: Posture lying in bed Motor: Negative for pronator drift of out stretched arms with eyes closed. Strength: UE bilaterally hand plate take out worker biceps triceps 5/5. LE right 1/5 hip flex plantar flex ext 5/5, LE left 0/5 hip flex, plantar flex ext Laboratory Results Past 24 Hours: 10/04/17 04:09 Red Blood Count 3.98, Mean Corpuscular Volume 94.5, Mean Corpuscular Hemoglobin 31.2, Mean Corpuscular Hemoglobin Concent 33.0, Mean Platelet Volume 8.4, Neutrophils (%) (Auto) 84.3, Lymphocytes (%) (Auto) 12.5, Monocytes (%) (Auto) 2.8, Eosinophils (%) (Auto) 0.0, Basophils (%) (Auto) 0.0, Neutrophils # (Auto) 5.64, Lymphocytes # (Auto) 0.84, Monocytes # (Auto) 0.19, Eosinophils # (Auto) 0.00, Basophils # (Auto) 0.00 10/04/17 04:09 Test 10/03/17 15:26 10/03/17 15:45 10/03/17 16:02 10/03/17 16:29 Urine Color YELLOW Urine Appearance CLOUDY (CLEAR) Urine pH 8.0 (4.5-7.5) Urine Specific [place] 1.027 (1.000-1.030) Urine Protein TRACE (NEG) Urine Glucose (UA) NEG (NEG) Urine Ketones NEG (NEG) Urine Occult Blood TRACE (NEG) Urine Nitrite POS (NEG) Urine Bilirubin NEG (NEG) Urine Urobilinogen NEG (NEG) Urine Leukocyte Esterase LARGE (NEG) Urine WBC (Auto) >30 /hpf (0-5) Urine RBC (Auto) 0-4 /hpf (0-4) Urine Hyaline Casts (Auto) 1-5 /lpf (0-5) Urine Epithelial Cells (Auto) 10-20 /lpf (0-5) Urine Bacteria (Auto) 4+ (NEG) Urine Pathogenic Casts /lpf (0) Urine Osmolality 479 mOms/kg (500-800) Lactic Acid Level 0.8 mmol/L (0.4-2.0) Blood Gas IPAP 14 Ammonia 25.9 umol/L (11-32) Test 10/03/17 18:35 10/03/17 20:00 10/04/17 04:09 10/04/17 06:03 Bedside Oxygen Rate (breaths/min) 20 Blood Gas Minute Ventilation 11.7 Bedside FiO2 100 % Blood Gas Tidal Volume 650 Blood Gas PEEP 5 Chemistry Specimen Hemolysis White Blood Count 6.70 K/uL (4.8-10.8) Red Blood Count 3.98 M/uL (4.2-5.4) Hemoglobin 12.4 g/dL (12.0-16.0) Hematocrit 37.6 % (37-47) Mean Corpuscular Volume 94.5 fL (80-100) Mean Corpuscular Hemoglobin 31.2 pg (25-34) Mean Corpuscular Hemoglobin Concent 33.0 g/dl (32-36) Platelet Count 202 K/uL (130-400) Mean Platelet Volume 8.4 fL (7.4-10.4) Neutrophils (%) (Auto) 84.3 % Lymphocytes (%) (Auto) 12.5 % Monocytes (%) (Auto) 2.8 % Eosinophils (%) (Auto) 0.0 % Basophils (%) (Auto) 0.0 % Neutrophils # (Auto) 5.64 K/uL (1.4-6.5) Lymphocytes # (Auto) 0.84 K/uL (1.2-3.4) Monocytes # (Auto) 0.19 K/uL (0.11-0.59) Eosinophils # (Auto) 0.00 K/uL (0-0.5) Basophils # (Auto) 0.00 K/uL (0-0.2) RDW Standard Deviation 45.2 fL (36.4-46.3) RDW Coefficient of Variation 13.1 % (11.5-14.5) Immature Granulocyte % (Auto) 0.4 % Immature Granulocyte # (Auto) 0.03 K/uL (0.00-0.02) Venous Blood pH 7.44 (7.36-7.41) Venous Blood Partial Pressure CO2 56 mmHg (38.0-50.0) Venous Blood Partial Pressure O2 47 mmHg Venous Blood HCO3 37 mmol/L Venous Blood Oxygen Saturation 83.0 % Venous Blood Base Excess 10.7 mEq/L Anion Gap 6.0 mmol/L (3-11) Est Creatinine Clear Calc Drug Dose 206.2 ml/min Estimated GFR () 134.0 Estimated GFR (Non- 115.6 BUN/Creatinine Ratio 29.9 (10-20) Estimated Average Glucose 140 mg/dl Hemoglobin A1c 6.5 % (4.5-5.6) Calcium Level 9.2 mg/dl (8.5-10.1) Phosphorus Level 2.2 mg/dl (2.5-4.9) Magnesium Level 1.6 mg/dl (1.8-2.4) Total Bilirubin 0.4 mg/dl (0.2-1) Direct Bilirubin < 0.1 mg/dl (0-0.2) Aspartate Amino Transf (AST/SGOT) 26 U/L (15-37) Alanine Aminotransferase (ALT/SGPT) 70 U/L (12-78) Alkaline Phosphatase 139 U/L (45-117) Total Creatine Kinase 74 U/L (26-192) Creatine Kinase MB 2.0 ng/ml (0.5-3.6) Creatine Kinase MB Ratio 2.7 (0-3.0) Troponin I < 0.015 ng/ml (0-0.045) Total Protein 7.1 gm/dl (6.4-8.2) Albumin 2.9 gm/dl (3.4-5.0) Triglycerides Level 116 mg/dl (0-150) Cholesterol Level 138 mg/dl (0-200) HDL Cholesterol 70 mg/dl LDL Cholesterol, Calculated 45 mg/dl VLDL Cholesterol, Calculated 23 mg/dl Cholesterol/HDL Ratio 2.0 Blood Gas Sample Site R Radial Bedside Blood Gas pH (LAB) 7.49 (7.35-7.45) Bedside Blood Gas pCO2 (LAB) 51 mmHg (35-46) Bedside Blood Gas pO2 (LAB) 53 mmHg (80-95) Bedside Blood Gas HCO3 (LAB) 39 meq/L (19-24) Bedside Blood Gas Total CO2 > 40 mEq/l (24-31) Bedside Blood Gas Base Excess (LAB) 15.0 meq/L (-9-1.8) Bedside Blood Gas O2 Saturation 88.0 % (90-95) Alon Test Pass Oxygen Delivery Device Ventilator Test 10/04/17 08:11 Bedside Glucose 171 mg/dl (70-90) Imaging imaging reviewed Impression 56 year old female with morbid obesity and progressive weakness now intubated Plan 1. progressive weakness- will need further work up for neurologic causes however L>R weakness 2. bilateral LE weakness but foot drop on left - she has been confined to bed and austen lift in [facility] 3. correct any metabolic issues 4. not clear when left sided weakness started. - does not seem like upper motor neuron or central. Lower motor should be tested as out patient with EMG. agree with acetylcholine AB 5. intubated - unable to provide history - at [facility] she is non weight bearing and 2 person assist with austen lift 6. TSH. sed rate ordered I have seen and discussed above patient with Dr Maria Antonia Shaw, neurologyPt seen and examined. Hx reviewed. Consultation req to r/o neurologic cause of weakness, resp failure.Per sister pt has been in for 2-3 years, only transferring bed to to . FAmily never noted any ptosis, dysarthria, aphasia. Pt intubated, sleepy,Pt morbidly obese. nml EOMI no nystagmus, eyes conjugate, no real fatiguability of eye closure. No neck flex or ext weakness. Nml bulk tone, no selective atrophy noted. UE strength, symmetric, no prox v distal gradient to weakness. RLE diffusely approx 3/5, LLE approx 2+5/. UE reflexes symm, LE, absent, toes down, no clonus. Mild distal sensory loss in both LE. IMP. Pt with weakness for 3 years, possible component of disuse, diabetic neuropathy. Difficult to examine pt bc of intubation, sedation. I see no obvious upper motor neuron findings, fatiguable weakness suggestive of MG. Hx not particularly cw with critical illness myopathy or neuropathy. Rec PFTs to see if cw obstructive or restrictive lung disease which may help determine if neuromuscular., ach rec ab, TSH, consider hold statin. Will ultimately need NCV-EMG which cannot be done in this facility. ANGEL Shaw MD
[2017-10-04] MEDS: LEVOFLOXACIN / D5W 750 MG in PREMIXED IN D5W 150 ML IV SCH (15:49)
[2017-10-04 17:09] LABS: BUN/CREATININE RATIO 31.8 (10-20); CALCIUM 9.3 mg/dl (8.5-10.1); CREATININE 0.42 mg/dl (0.60-1.20); POTASSIUM 3.8 mmol/L (3.5-5.1)
[2017-10-04 17:14] LABS: PHOSPHORUS 3.7 mg/dl (2.5-4.9)
[2017-10-04] MEDS ORDERED: INSULIN ASPART 100 UNITS/ML 3 ML PEN SC SCH (17:15)
[2017-10-04 18:26] LABS: THYROID STIMULATING HORMONE 0.677 uIu/ml (0.300-4.500)
[2017-10-05] VITALS (17 sets, daily range): BP systolic 100–170; BP diastolic 46–67; PULSE 49–72; TEMP 36.6–37; O2SAT 90–97
[2017-10-05] MEDS: LEValbuterol HFA 15GM INHALER INH SCH ×2 (03:15→07:38)
[2017-10-05] MEDS: IPRATROPIUM BROMIDE HFA INHALER INH SCH ×2 (03:15→07:38)
[2017-10-05] MEDS: METHYLPREDNISOLONE IV 60 MG in SYRINGE 0 ML IV SCH (04:09)
[2017-10-05 06:09] LABS: COMPLETE YES; HEMATOCRIT 38.6 % (37-47); IG% 0.4 %; LYMPH % 6.6 %; LYMPH ABS # 0.76 K/uL (1.2-3.4); MEAN CELL VOLUME 94.8 fL (80-100); MEAN CORPUSCULAR HEMOGLOBIN 31.4 pg (25-34); MEAN CORPUSCULAR HGB CONC 33.2 g/dl (32-36); MEAN PLATELET VOLUME 8.8 fL (7.4-10.4); MONO % 4.4 %; NEUT % 88.6 %; PLATELET COUNT 235 K/uL (130-400); RED BLOOD COUNT 4.07 M/uL (4.2-5.4); WHITE BLOOD COUNT 11.54 K/uL (4.8-10.8)
[2017-10-05 06:19] LABS: VEN BLD GAS O2 SATURATION 76.5 %; VEN BLOOD GAS BASE EXCESS 11.1 mEq/L
[2017-10-05] MEDS: LEVOTHYROXINE 200 MCG TAB PO SCH (06:34)
[2017-10-05 06:40] LABS: ALT/SGPT 56 U/L (12-78); AST/SGOT 19 U/L (15-37); BLOOD UREA NITROGEN 17 mg/dl (7-18); BUN/CREATININE RATIO 44.5 (10-20); CALCIUM 9.3 mg/dl (8.5-10.1); CARBON DIOXIDE 35 mmol/L (21-32); CHLORIDE 90 mmol/L (98-107); CREATININE 0.38 mg/dl (0.60-1.20); GLUCOSE 150 mg/dl (70-99); MAGNESIUM 2.1 mg/dl (1.8-2.4); POTASSIUM 4.1 mmol/L (3.5-5.1); SODIUM 130 mmol/L (136-145)
[2017-10-05] MEDS: HEPARIN SOD 5000 UNIT/0.5 ML CARP SQ SCH ×3 (06:40→21:05)
[2017-10-05 06:46] LABS: ALKALINE PHOSPHATASE 130 U/L (45-117)
[2017-10-05] MEDS: METOPROLOL TARTRATE 25 MG TAB PO SCH ×3 (07:26→21:00)
[2017-10-05] MEDS: CITALOPRAM 20 MG TAB PO SCH (07:26)
[2017-10-05] MEDS: LANSOPRAZOLE SOLUTAB 30 MG NG SCH (07:26)
[2017-10-05] MEDS: CLOPIDOGREL BISULFATE 75 MG TAB PO SCH (07:26)
[2017-10-05] MEDS: ASPIRIN 81 MG CHEW NG SCH (07:27)
[2017-10-05] MEDS: INSULIN ASPART 100 UNITS/ML 3 ML PEN SC SCH ×5 (07:28→21:00)
--- NOTE | 2017-10-05 07:37 | DIAGNOSTIC IMAGING REPORT ---
CHEST ONE VIEW PORTABLE HISTORY: Intubated COMPARISON: Chest 10/04/2017. FINDINGS: Endotracheal tube terminates 3.6 cm from the chanel. Nasogastric tube terminates below the diaphragm. The tip is not included on this study. No pneumothorax. The heart remains mildly enlarged. Bibasilar densities/effusions persist. Mild diffuse interstitial thickening, unchanged. IMPRESSION: 1. Satisfactory support line placement. 2. Cardiomegaly and mild pulmonary edema persists. 3. No change in the bibasilar densities/effusions. Electronically signed by: Eric Hopkins M.D. 10/05/2017 7:36 AM Dictated Date/Time: 10/05/2017 7:34 AM
--- NOTE | 2017-10-05 09:39 | Progress Note ---
Internal Med Progress Note Date of Service: Oct 05, 2017. Provider Documentation: SUBJECTIVE: Seen and examined at bedside Extubated this morning States having some dizziness, nausea Denies chest pain, SOB, abd pain, dysuria No other complaints OBJECTIVE: Vital Signs-as noted below Physical Exam: General Appearance:Obese, no apparent distress Head: normocephalic, Atraumatic Eyes: normal inspection, EOMI, PERRL Neck: supple, Trachea midline Respiratory/Chest: Normal breath sounds, CTA Cardiovascular: S1, S2, No murmur Abdomen/GI:Soft, Non tender, Bowel sounds present Extremities/Musculoskelatal:normal inspection, Trace b/l zulay Neurologic/Psych:B/L LE weakness L>R Skin: normal color, warm Lab data as noted below. 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 Acute on chronic hypoxic and hypercapnic respiratory failure: Likely multifactorial: 2/2 COPD exacerbation, PNA S/P Extubation: 10/05/17 Chronic Oxygen dependency CTA:No PE, small b/l pleural effusions, pulm edema, b/l lower lobe consolidation , mild mediastinal lymphadenopathy IV Abx per ICU team Blood culture: 1/2: Coag negative staph: likely contamination sputum culture: pending IV steroids, duonebs Lasix PRN Consider to taper steroids Encephalopathy: Likely metabolic UTI Likely 2/2 hypercarbia; UTI Ammonia: normal Urine Cx:Proteus and E.coli continue Abx per ICU team B/L LE weakness: TSH: normal Acetylcholine receptor ab pending May need NCV-EMG as outpatient Appreciate Neurology Input Hypomagnesemia/Hypophosphatemia: Resolved Monitor Sinus Bradycardia: Stable on BB monitor Chest pain: Per initial interview, CP is central, non-radiating H/o STEMI (s/p stent) R/o ACS; risk factors: DM II, CAD, HLD, current smoker Troponin: negative EKG without ischemic changes CXR with pulmonary edema, possible bibasilar PNA ECHO:No segmental left ventricular wall motion abnormalities DM II: Hold home agents Glycemic consult placed in setting of IV steroids ISS, Accu checks Hgb a1c:6.5 Hyponatremia: Chronic Monitor Sodium levels HLD: Continue statin CAD (s/p stent): Continue aspirin, plavix, statin HTN: Continue metoprolol Cirrhosis 2/2 AIH: Stable DVT Px: Heparin SQ Code status: FULL PCP: Cara Sandoval Disposition: Presented from [facility] PROCEDURES: ECHO: No change compared to previous study of 06/22/17. * Normal LV chamber size with mild concentric LVH. * Normal LV systolic function, EF 60-65%. * No segmental left ventricular wall motion abnormalities are noted. * Grade II diastolic dysfunction. * Poorly visualized valvular structures without significant stenosis or regurgitation by Doppler. Vital Signs: Date Time Temp Pulse Resp B/P (MAP) Pulse Ox O2 Delivery O2 Flow Rate FiO2 10/05/17 08:00 40 10/05/17 08:00 58 22 154/67 (96) 92 CPAP 40 Mechanical Ventilator 10/05/17 08:00 CPAP 40 Mechanical Ventilator 10/05/17 07:20 40 10/05/17 07:15 40 10/05/17 06:00 55 12 170/66 (100) 94 Mechanical Ventilator 35 10/05/17 05:14 40 10/05/17 04:00 35 10/05/17 04:00 Mechanical Ventilator 35 10/05/17 04:00 36.6 49 14 130/52 (78) 92 Mechanical Ventilator 35 10/05/17 02:45 35 10/05/17 02:00 51 14 152/61 (91) 90 Mechanical Ventilator 35 10/05/17 00:01 37.0 50 15 162/63 (96) 90 Mechanical Ventilator 35 10/04/17 23:59 35 10/04/17 23:59 Mechanical Ventilator 35 10/04/17 23:05 40 10/04/17 22:00 36.8 53 13 149/60 (89) 92 Mechanical Ventilator 45 10/04/17 20:00 Mechanical Ventilator 10/04/17 20:00 45 10/04/17 20:00 36.4 49 13 115/52 (73) 93 Mechanical Ventilator 45 10/04/17 19:54 45 10/04/17 18:02 36.8 51 19 109/49 (69) 91 CPAP 45 Mechanical Ventilator 10/04/17 16:13 45 10/04/17 16:00 CPAP Mechanical Ventilator 10/04/17 16:00 45 10/04/17 16:00 36.7 59 17 111/50 (70) 93 CPAP 45 Mechanical Ventilator 10/04/17 14:22 60 22 129/52 (77) 89 CPAP 45 Mechanical Ventilator 10/04/17 13:10 45 10/04/17 12:00 36.8 59 12 136/60 (85) 91 Mechanical Ventilator 60 10/04/17 12:00 CPAP 60 Mechanical Ventilator 10/04/17 12:00 60 10/04/17 10:38 60 10/04/17 10:00 59 14 129/52 (77) 92 Mechanical Ventilator 60 Lab Results: Results Past 24 Hours Test 10/04/17 12:15 10/04/17 13:53 10/04/17 15:06 10/04/17 16:07 Range/Units Bedside Glucose 175 188 147 163 70-90 mg/dl Test 10/04/17 16:25 10/04/17 17:09 10/04/17 18:07 10/04/17 19:11 Range/Units Sodium Level 133 136-145 mmol/L Potassium Level 3.8 3.5-5.1 mmol/L Chloride Level 91 98-107 mmol/L Carbon Dioxide Level 38 21-32 mmol/L Anion Gap 4.0 3-11 mmol/L Blood Urea Nitrogen 13 7-18 mg/dl Creatinine 0.42 0.60-1.20 mg/dl Est Creatinine Clear Calc Drug Dose 192.3 ml/min Estimated GFR () 131.9 Estimated GFR (Non- 113.8 BUN/Creatinine Ratio 31.8 10-20 Random Glucose 142 70-99 mg/dl Calcium Level 9.3 8.5-10.1 mg/dl Phosphorus Level 3.7 2.5-4.9 mg/dl Magnesium Level 2.0 1.8-2.4 mg/dl Thyroid Stimulating Hormone (TSH) 0.677 0.300-4.500 uIu/ml Bedside Glucose 161 133 122 70-90 mg/dl Test 10/04/17 20:13 10/04/17 21:12 10/04/17 22:04 10/04/17 23:12 Range/Units Bedside Glucose 139 117 123 140 70-90 mg/dl Test 10/04/17 23:57 10/05/17 01:51 10/05/17 04:09 10/05/17 05:50 Range/Units Bedside Glucose 136 146 156 70-90 mg/dl White Blood Count 11.54 4.8-10.8 K/uL Red Blood Count 4.07 4.2-5.4 M/uL Hemoglobin 12.8 12.0-16.0 g/dL Hematocrit 38.6 37-47 % Mean Corpuscular Volume 94.8 80-100 fL Mean Corpuscular Hemoglobin 31.4 25-34 pg Mean Corpuscular Hemoglobin Concent 33.2 32-36 g/dl Platelet Count 235 130-400 K/uL Mean Platelet Volume 8.8 7.4-10.4 fL Neutrophils (%) (Auto) 88.6 % Lymphocytes (%) (Auto) 6.6 % Monocytes (%) (Auto) 4.4 % Eosinophils (%) (Auto) 0.0 % Basophils (%) (Auto) 0.0 % Neutrophils # (Auto) 10.22 1.4-6.5 K/uL Lymphocytes # (Auto) 0.76 1.2-3.4 K/uL Monocytes # (Auto) 0.51 0.11-0.59 K/uL Eosinophils # (Auto) 0.00 0-0.5 K/uL Basophils # (Auto) 0.00 0-0.2 K/uL RDW Standard Deviation 46.9 36.4-46.3 fL RDW Coefficient of Variation 13.5 11.5-14.5 % Immature Granulocyte % (Auto) 0.4 % Immature Granulocyte # (Auto) 0.05 0.00-0.02 K/uL Venous Blood pH 7.40 7.36-7.41 Venous Blood Partial Pressure CO2 63 38.0-50.0 mmHg Venous Blood Partial Pressure O2 43 mmHg Venous Blood HCO3 38 mmol/L Venous Blood Oxygen Saturation 76.5 % Venous Blood Base Excess 11.1 mEq/L Sodium Level 130 136-145 mmol/L Potassium Level 4.1 3.5-5.1 mmol/L Chloride Level 90 98-107 mmol/L Carbon Dioxide Level 35 21-32 mmol/L Anion Gap 5.0 3-11 mmol/L Blood Urea Nitrogen 17 7-18 mg/dl Creatinine 0.38 0.60-1.20 mg/dl Est Creatinine Clear Calc Drug Dose 213.4 ml/min Estimated GFR () 136.3 Estimated GFR (Non- 117.6 BUN/Creatinine Ratio 44.5 10-20 Random Glucose 150 70-99 mg/dl Calcium Level 9.3 8.5-10.1 mg/dl Phosphorus Level 3.0 2.5-4.9 mg/dl Magnesium Level 2.1 1.8-2.4 mg/dl Total Bilirubin 0.3 0.2-1 mg/dl Direct Bilirubin < 0.1 0-0.2 mg/dl Aspartate Amino Transf (AST/SGOT) 19 15-37 U/L Alanine Aminotransferase (ALT/SGPT) 56 12-78 U/L Alkaline Phosphatase 130 45-117 U/L Total Protein 7.5 6.4-8.2 gm/dl Albumin 3.1 3.4-5.0 gm/dl Test 10/05/17 06:03 Range/Units Bedside Glucose 138 70-90 mg/dl Microbiology Results 10/04/17 Gram Stain - Final, Resulted 10/04/17 Sputum Culture, Resulted Pending
[2017-10-05] MEDS ORDERED: FUROSEMIDE INJ 40 MG in SYRINGE 0 ML IV ONE (10:30)
[2017-10-05] MEDS ORDERED: LEVALBUTEROL 1.25MG/0.5ML NEB INH PRN (10:30)
[2017-10-05] MEDS ORDERED: IPRATROPIUM BROMIDE NEB SOLN 0.02% 2.5 ML VIAL INH PRN (10:30)
[2017-10-05] MEDS ORDERED: INSULIN GLARGINE SC SCH (10:30)
[2017-10-05] MEDS: LEVALBUTEROL 1.25MG/0.5ML NEB INH SCH ×4 (11:31→23:02)
[2017-10-05] MEDS: IPRATROPIUM BROMIDE NEB SOLN 0.02% 2.5 ML VIAL INH SCH ×4 (11:31→23:02)
--- NOTE | 2017-10-05 11:46 | Critical Care Progress Note ---
Critical Care Progress Note Date of Service Oct 05, 2017. ICU Day ICU Day Number: [address] Daniel Subjective Patient well post extubation. She has some mild throat pain, but otherwise feels comfortable with her breathing on oxymask. She denies CP, palpitations, dyspnea, N/V/abdominal pain. She is inquiring about food. With regards to prior to admission,. she states the dyspnea started acutely, she denies recent URTI symptoms. She also denies any recent urinary symptoms. Discussion re: removing Hyde catheter was had, and patient agreeable. She had a BM today. Management plans were explained to the patient. Objective GENERAL: alert, obese, sitting in bed, no acute distress, non-toxic, oxymask on HEAD: NC/AT. No sinus tenderness EYES: Normal sclera and conjunctiva OROPHARYNX: No exudate, no erythema. Lips, buccal mucosa, and tongue normal and mucous membranes are dry NECK: Supple, no adenopathy, non-tender LUNGS: Clear to auscultation. Normal chest wall mechanics, diminished breath sounds bibasilarly. No crepitations, crackles, or wheezes HEART: RRR, S1 and S2 normal, no murmurs appreciated ABDOMEN: Soft, non-tender, normo-active bowel sounds, no masses, no rebound or guarding. SKIN: Warm, pink, dry. No erythema, rashes, or bruising. EXTREMITIES: Grossly normal. No pitting edema. Calves supple. NEURO: Alert, Ox3. No focal deficits. Cranial nerves II-XII grossly intact, normal speech. PSYCH: Mood and affect appropriate. Current SOFA Score SOFA Score Response (Comments) Value Platelets (x10) > 150 0 Bilirubin (mg/dL) < 1.2 0 Oriska Coma Score 15 0 Level of Hypotension No Hypotension 0 Creatinine (mg/dL) < 1.2 0 Total 0 Assessment & Plan Reason critically ill: 56 year old female presents with acute hypoxic respiratory failure necessitating intubation for airway protection. Neuro - CAM negative - Sedatives discontinued at 6am, patient s/p extubation at 9am - Continue citalopram for depression - Neurology consulted for subacute deterioration on background autoimmune hepatitis and skin hypo/hyperpigmented spots - recs appreciated - acetylcholine receptor binding antibody levels pending CV - Vitals HR 40-50s, BP 130-170s - Hemodynamically stable.Serial troponin negative. - Continue home meds: aspirin, clopidogrel, atorvastatin - Metoprolol held for bradycardia - On time dose IV furosemide 40mg again today Resp - s/p extubation, on oxymask 5L - CXR: Cardiomegaly and mild pulmonary edema persists. No change in the bibasilar densities/effusions. - Tapering from methylprednisone 60mg q8h to prednisone 20mg BID x 2 days, 20mg daily x 2 days, then stop - Continue nebulizers: Atrovent and Xopenex GI//Nutrition - Diet: Stopped tube feeding, with plans to allow diet at lunch - Prophylaxis: lansoprazole - Hyde to be removed today Renal/electrolytes - Labs show deranged Na+, K+ - supplemented - Trend BMP ID - Blood Cx growing G+ cocci in 1/2 tubes - likely contamination - Urine Cx growing e.coli and proteus mirabilis - likely colonization given asymptomatic - Wound Cx growing GNB - Sputum Cx pending - Antibiotics (levofloxacin) discontinued due to low perceived benefits given patient asymptotic, without fever, and no leukocytosis on admission. Will monitor and keep low threshold to restart if warranted Endo - HbA1c 6.5, fasting lipids acceptable - Glucose: 140-170s while NPO. - Lantus 50mg given in AM. Will plan to stop insulin drip this afternoon with ISS commencing. - In view of tapering dose of steroid, will give Lantus 20 units in PM, and reduce Lantus to 35 BID tomorrow, and adjust accordingly to sugars there after - Continue levothyroxine 200mcg Heme - H/H stable. New leukocytosis likely 2/2 steroid usage. Platelets WNL MSK - PT/OT Access/Line - 2 peripheral IVs VTE Prophylaxis - Heparin SC q8h Resident Physician Supervision Note: I was present with [Name of resident] during the history and exam. I discussed the case with the resident and agree with the findings and plan as documented in the note. Any exceptions or clarifications are listed here: [None ] Documented By: Kodak Daniel Consults & Procedures Consultants: [employer] Neurology Procedures: Intubation 10/03/17 Data Medications: Current Inpatient Medications Medications (Trade) Dose Ordered Sig/Abdi Route Start Time Stop Time Status Last Admin Dose Admin Ioversol (Optiray 320) 100 ml UD PRN IV 10/03/17 12:30 10/07/17 12:29 Heparin Sodium (Porcine) (Heparin Sq 5000 Unit/0.5ml) 5,000 unit Q8 SQ 10/03/17 22:00 11/02/17 21:59 10/05/17 06:40 5,000 UNIT Acetaminophen (Tylenol Tab) 650 mg Q4H PRN PO 10/03/17 14:15 11/02/17 14:14 Miscellaneous Information (Consult Glycemic Management Pharmacy) 1 ea UD PRN N/A 10/03/17 15:26 11/02/17 15:25 Glucose (Glucose 40% Gel) 15-30 GRAMS 15 GRAMS... UD PRN PO 10/03/17 15:15 11/02/17 15:14 Glucose (Glucose Chew Tab) 4-8 Tablets 4 Tabl... UD PRN PO 10/03/17 15:15 11/02/17 15:14 Dextrose (Dextrose 50% 50ML Syringe) 25-50ML OF 50% DW IV FOR... UD PRN IV 10/03/17 15:15 11/02/17 15:14 Glucagon (Glucagon Inj) 1 mg UD PRN SQ 10/03/17 15:15 11/02/17 15:14 Citalopram Hydrobromide (celeXA TAB) 20 mg QAM PO 10/04/17 09:00 11/03/17 08:59 10/05/17 07:26 20 MG Clopidogrel Bisulfate (plAVix TAB) 75 mg DAILY PO 10/04/17 09:00 11/03/17 08:59 10/05/17 07:26 75 MG Levothyroxine Sodium (Synthroid Tab) 200 mcg DAILYBB PO 10/04/17 06:00 11/03/17 05:59 10/05/17 06:34 200 MCG Metoprolol Tartrate (Lopressor Tab) 12.5 mg BID PO 10/03/17 21:00 11/02/17 20:59 Lansoprazole (Prevacid Solutab) 30 mg DAILY NG 10/04/17 09:00 11/03/17 08:59 10/05/17 07:26 30 MG Aspirin (Aspirin Chew) 81 mg DAILY NG 10/04/17 09:00 11/03/17 08:59 10/05/17 07:27 81 MG Insulin Aspart (novoLOG ASPART) SLIDING SCALE PCHS SC 10/04/17 12:00 10/05/17 16:30 Insulin Human Regular 250 units/ Sodium Chloride 252.5 ml @ 0 mls/hr Q24H IV 10/04/17 13:00 10/05/17 16:30 10/04/17 13:49 3.3 MLS/HR Insulin Aspart (novoLOG ASPART) SLIDING SCALE G... ACHS SC 10/05/17 16:30 11/04/17 16:29 Ipratropium [employer] (Atrovent 0.02% 0.5MG/2.5ML Neb) 0.5 mg Q4R INH 10/05/17 12:00 11/04/17 11:59 10/05/17 11:31 0.5 MG Levalbuterol (Xopenex 1.25MG/ 0.5ML Neb) 1.25 mg Q4R INH 10/05/17 12:00 11/04/17 11:59 10/05/17 11:31 1.25 MG Ipratropium [employer] (Atrovent 0.02% 0.5MG/2.5ML Neb) 0.5 mg Q2H PRN INH 10/05/17 10:30 11/04/17 10:29 Levalbuterol (Xopenex 1.25MG/ 0.5ML Neb) 1.25 mg Q2H PRN INH 10/05/17 10:30 11/04/17 10:29 Miscellaneous (Stop Order) 1 ea TODAY@1630 ONCE N/A 10/05/17 16:30 10/05/17 16:31 Prednisone (PredniSONE TAB) 20 mg BIDM PO 10/05/17 11:00 10/06/17 16:31 10/05/17 10:59 20 MG Prednisone (PredniSONE TAB) 20 mg DAILY PO 10/07/17 09:00 10/08/17 09:01 Insulin Glargine (Lantus Vial) 50 units BID SC 10/05/17 10:30 11/04/17 10:29 Future Hold 10/05/17 11:00 50 UNITS Vital Signs: Date Time Temp Pulse Resp B/P (MAP) Pulse Ox O2 Delivery O2 Flow Rate FiO2 10/05/17 11:31 64 22 91 Mask 5.0 10/05/17 10:07 60 26 143/59 (87) 90 Oxymask 5.0 10/05/17 08:00 40 10/05/17 08:00 58 22 154/67 (96) 92 CPAP 40 Mechanical Ventilator 10/05/17 08:00 CPAP 40 Mechanical Ventilator 10/05/17 08:00 40 10/05/17 07:20 40 10/05/17 07:15 40 10/05/17 06:00 55 12 170/66 (100) 94 Mechanical Ventilator 35 10/05/17 05:14 40 10/05/17 04:00 35 10/05/17 04:00 Mechanical Ventilator 35 10/05/17 04:00 36.6 49 14 130/52 (78) 92 Mechanical Ventilator 35 10/05/17 02:45 35 10/05/17 02:00 51 14 152/61 (91) 90 Mechanical Ventilator 35 10/05/17 00:01 37.0 50 15 162/63 (96) 90 Mechanical Ventilator 35 10/04/17 23:59 35 10/04/17 23:59 Mechanical Ventilator 35 10/04/17 23:05 40 10/04/17 22:00 36.8 53 13 149/60 (89) 92 Mechanical Ventilator 45 10/04/17 20:00 Mechanical Ventilator 10/04/17 20:00 45 10/04/17 20:00 36.4 49 13 115/52 (73) 93 Mechanical Ventilator 45 10/04/17 19:54 45 10/04/17 18:02 36.8 51 19 109/49 (69) 91 CPAP 45 Mechanical Ventilator 10/04/17 16:13 45 10/04/17 16:00 CPAP Mechanical Ventilator 10/04/17 16:00 45 10/04/17 16:00 36.7 59 17 111/50 (70) 93 CPAP 45 Mechanical Ventilator 10/04/17 14:22 60 22 129/52 (77) 89 CPAP 45 Mechanical Ventilator 10/04/17 13:10 45 10/04/17 12:00 36.8 59 12 136/60 (85) 91 Mechanical Ventilator 60 10/04/17 12:00 CPAP 60 Mechanical Ventilator 10/04/17 12:00 60 Laboratory Results: Last 24 Hours Test 10/04/17 12:15 10/04/17 13:53 10/04/17 15:06 10/04/17 16:07 Bedside Glucose 175 mg/dl 188 mg/dl 147 mg/dl 163 mg/dl Test 10/04/17 16:25 10/04/17 17:09 10/04/17 18:07 10/04/17 19:11 Sodium Level 133 mmol/L Potassium Level 3.8 mmol/L Chloride Level 91 mmol/L Carbon Dioxide Level 38 mmol/L Anion Gap 4.0 mmol/L Blood Urea Nitrogen 13 mg/dl Creatinine 0.42 mg/dl Est Creatinine Clear Calc Drug Dose 192.3 ml/min Estimated GFR () 131.9 Estimated GFR (Non- 113.8 BUN/Creatinine Ratio 31.8 Random Glucose 142 mg/dl Calcium Level 9.3 mg/dl Phosphorus Level 3.7 mg/dl Magnesium Level 2.0 mg/dl Thyroid Stimulating Hormone (TSH) 0.677 uIu/ml Bedside Glucose 161 mg/dl 133 mg/dl 122 mg/dl Test 10/04/17 20:13 10/04/17 21:12 10/04/17 22:04 10/04/17 23:12 Bedside Glucose 139 mg/dl 117 mg/dl 123 mg/dl 140 mg/dl Test 10/04/17 23:57 10/05/17 01:51 10/05/17 04:09 10/05/17 05:50 Bedside Glucose 136 mg/dl 146 mg/dl 156 mg/dl White Blood Count 11.54 K/uL Red Blood Count 4.07 M/uL Hemoglobin 12.8 g/dL Hematocrit 38.6 % Mean Corpuscular Volume 94.8 fL Mean Corpuscular Hemoglobin 31.4 pg Mean Corpuscular Hemoglobin Concent 33.2 g/dl Platelet Count 235 K/uL Mean Platelet Volume 8.8 fL Neutrophils (%) (Auto) 88.6 % Lymphocytes (%) (Auto) 6.6 % Monocytes (%) (Auto) 4.4 % Eosinophils (%) (Auto) 0.0 % Basophils (%) (Auto) 0.0 % Neutrophils # (Auto) 10.22 K/uL Lymphocytes # (Auto) 0.76 K/uL Monocytes # (Auto) 0.51 K/uL Eosinophils # (Auto) 0.00 K/uL Basophils # (Auto) 0.00 K/uL RDW Standard Deviation 46.9 fL RDW Coefficient of Variation 13.5 % Immature Granulocyte % (Auto) 0.4 % Immature Granulocyte # (Auto) 0.05 K/uL Venous Blood pH 7.40 Venous Blood Partial Pressure CO2 63 mmHg Venous Blood Partial Pressure O2 43 mmHg Venous Blood HCO3 38 mmol/L Venous Blood Oxygen Saturation 76.5 % Venous Blood Base Excess 11.1 mEq/L Sodium Level 130 mmol/L Potassium Level 4.1 mmol/L Chloride Level 90 mmol/L Carbon Dioxide Level 35 mmol/L Anion Gap 5.0 mmol/L Blood Urea Nitrogen 17 mg/dl Creatinine 0.38 mg/dl Est Creatinine Clear Calc Drug Dose 213.4 ml/min Estimated GFR () 136.3 Estimated GFR (Non- 117.6 BUN/Creatinine Ratio 44.5 Random Glucose 150 mg/dl Calcium Level 9.3 mg/dl Phosphorus Level 3.0 mg/dl Magnesium Level 2.1 mg/dl Total Bilirubin 0.3 mg/dl Direct Bilirubin < 0.1 mg/dl Aspartate Amino Transf (AST/SGOT) 19 U/L Alanine Aminotransferase (ALT/SGPT) 56 U/L Alkaline Phosphatase 130 U/L Total Protein 7.5 gm/dl Albumin 3.1 gm/dl Test 10/05/17 06:03 Bedside Glucose 138 mg/dl Resident Tracking Resident Involvement: Resident Care Provided Care Provided: Adult Hospital Medicine
[2017-10-05] MEDS: INSULIN REGULAR 250 UNITS in SODIUM CHLORIDE 0.9% 250ML 250 ML IV SCH (13:00)
--- NOTE | 2017-10-05 14:01 | Neurology Progress Notes ---
Neurology Progress Note Date of Service Oct 05, 2017. 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 She presented with SOB and that started 2 days ago. [facility] nurse , reported 09/30 she was at her baseline which she has austen lift for transfers. She was complaining of SOB but O2 saturation on 2L NC was 95%. Ate breakfast without a problem. A few hours later, was found to be in respiratory distress, using accessory muscles with an O2 saturation of 84% and CP. Her O2 was increase to 6L and EMS was called. She was confused on arrival to ED and then after a CXR she was unresponsive. While they were preparing for intubation she woke up and responded to verbal commands. She was started on bipap and O2 saturation improved to 90%. She was then intubated for airway protection. Currently she is extubated she states she is feeling much better today. She states she has not walked for 3 years. She had a fall while visiting her daughter. She hurt her back and has had left sided weakness since that time. She has been working with physical therapy at the SNF to be able to walk with a walker. denies CP, SOB, new one sided numbness weakness, tingling, headache, N , V. Objective Date Time Temp Pulse Resp B/P (MAP) Pulse Ox O2 Delivery O2 Flow Rate FiO2 10/05/17 12:00 Nasal Cannula 6.0 10/05/17 12:00 60 26 118/49 (72) 93 Nasal Cannula 6.0 10/05/17 11:31 64 22 91 Mask 5.0 10/05/17 10:07 60 26 143/59 (87) 90 Oxymask 5.0 10/05/17 08:00 40 10/05/17 08:00 CPAP 40 10/05/17 08:00 58 22 154/67 (96) 92 CPAP 40 Mechanical Ventilator 10/05/17 08:00 CPAP 40 Mechanical Ventilator 10/05/17 08:00 40 10/05/17 07:20 40 10/05/17 07:15 40 10/05/17 06:00 55 12 170/66 (100) 94 Mechanical Ventilator 35 10/05/17 05:14 40 10/05/17 04:00 35 10/05/17 04:00 Mechanical Ventilator 35 10/05/17 04:00 36.6 49 14 130/52 (78) 92 Mechanical Ventilator 35 10/05/17 02:45 35 10/05/17 02:00 51 14 152/61 (91) 90 Mechanical Ventilator 35 10/05/17 00:01 37.0 50 15 162/63 (96) 90 Mechanical Ventilator 35 10/04/17 23:59 35 10/04/17 23:59 Mechanical Ventilator 35 10/04/17 23:05 40 10/04/17 22:00 36.8 53 13 149/60 (89) 92 Mechanical Ventilator 45 10/04/17 20:00 Mechanical Ventilator 10/04/17 20:00 45 10/04/17 20:00 36.4 49 13 115/52 (73) 93 Mechanical Ventilator 45 10/04/17 19:54 45 10/04/17 18:02 36.8 51 19 109/49 (69) 91 CPAP 45 Mechanical Ventilator 10/04/17 16:13 45 10/04/17 16:00 CPAP Mechanical Ventilator 10/04/17 16:00 45 10/04/17 16:00 36.7 59 17 111/50 (70) 93 CPAP 45 Mechanical Ventilator 10/04/17 14:22 60 22 129/52 (77) 89 CPAP 45 Mechanical Ventilator Last 24 Hours Test 10/04/17 13:53 10/04/17 15:06 10/04/17 16:07 10/04/17 16:25 Bedside Glucose 188 mg/dl 147 mg/dl 163 mg/dl Sodium Level 133 mmol/L Potassium Level 3.8 mmol/L Chloride Level 91 mmol/L Carbon Dioxide Level 38 mmol/L Anion Gap 4.0 mmol/L Blood Urea Nitrogen 13 mg/dl Creatinine 0.42 mg/dl Est Creatinine Clear Calc Drug Dose 192.3 ml/min Estimated GFR () 131.9 Estimated GFR (Non- 113.8 BUN/Creatinine Ratio 31.8 Random Glucose 142 mg/dl Calcium Level 9.3 mg/dl Phosphorus Level 3.7 mg/dl Magnesium Level 2.0 mg/dl Thyroid Stimulating Hormone (TSH) 0.677 uIu/ml Test 10/04/17 17:09 10/04/17 18:07 10/04/17 19:11 10/04/17 20:13 Bedside Glucose 161 mg/dl 133 mg/dl 122 mg/dl 139 mg/dl Test 10/04/17 21:12 10/04/17 22:04 10/04/17 23:12 10/04/17 23:57 Bedside Glucose 117 mg/dl 123 mg/dl 140 mg/dl 136 mg/dl Test 10/05/17 01:51 10/05/17 04:09 10/05/17 05:50 10/05/17 06:03 Bedside Glucose 146 mg/dl 156 mg/dl 138 mg/dl White Blood Count 11.54 K/uL Red Blood Count 4.07 M/uL Hemoglobin 12.8 g/dL Hematocrit 38.6 % Mean Corpuscular Volume 94.8 fL Mean Corpuscular Hemoglobin 31.4 pg Mean Corpuscular Hemoglobin Concent 33.2 g/dl Platelet Count 235 K/uL Mean Platelet Volume 8.8 fL Neutrophils (%) (Auto) 88.6 % Lymphocytes (%) (Auto) 6.6 % Monocytes (%) (Auto) 4.4 % Eosinophils (%) (Auto) 0.0 % Basophils (%) (Auto) 0.0 % Neutrophils # (Auto) 10.22 K/uL Lymphocytes # (Auto) 0.76 K/uL Monocytes # (Auto) 0.51 K/uL Eosinophils # (Auto) 0.00 K/uL Basophils # (Auto) 0.00 K/uL RDW Standard Deviation 46.9 fL RDW Coefficient of Variation 13.5 % Immature Granulocyte % (Auto) 0.4 % Immature Granulocyte # (Auto) 0.05 K/uL Venous Blood pH 7.40 Venous Blood Partial Pressure CO2 63 mmHg Venous Blood Partial Pressure O2 43 mmHg Venous Blood HCO3 38 mmol/L Venous Blood Oxygen Saturation 76.5 % Venous Blood Base Excess 11.1 mEq/L Sodium Level 130 mmol/L Potassium Level 4.1 mmol/L Chloride Level 90 mmol/L Carbon Dioxide Level 35 mmol/L Anion Gap 5.0 mmol/L Blood Urea Nitrogen 17 mg/dl Creatinine 0.38 mg/dl Est Creatinine Clear Calc Drug Dose 213.4 ml/min Estimated GFR () 136.3 Estimated GFR (Non- 117.6 BUN/Creatinine Ratio 44.5 Random Glucose 150 mg/dl Calcium Level 9.3 mg/dl Phosphorus Level 3.0 mg/dl Magnesium Level 2.1 mg/dl Total Bilirubin 0.3 mg/dl Direct Bilirubin < 0.1 mg/dl Aspartate Amino Transf (AST/SGOT) 19 U/L Alanine Aminotransferase (ALT/SGPT) 56 U/L Alkaline Phosphatase 130 U/L Total Protein 7.5 gm/dl Albumin 3.1 gm/dl Test 10/05/17 13:02 Bedside Glucose 149 mg/dl Imaging: no new imaging Exam: Physical Exam: Constitutional: appearance nourished, morbidly obese Ears, Nose, Mouth and Throat: mucous membranes moist, no injection and skin normal, eyes normal Cardiovascular: normal S-1 and S-2 and regular rate and rhythm Respiratory: coarse breath sound Musculoskeletal: peripheral edema 2+ pitting and decreased pedal pulses Skin: no stigmata of neurocutaneous disease noted and normal and intact Eyes: extraocular muscles intact (EOMI) and pupils equal, round and reactive to light (PERRL) NEUROLOGIC EXAMINATION: Mental status: Alert and interactive Oriented to full date and location Oriented to person Speech fluent with no evidence of aphasia Cranial Nerves smile eye brow raise bilaterally symmetric Reflexes: Deep tendon reflexes were symmetrical and graded 2/5 UE, LE decreased bilaterally Sensory: intact to cool and vibration bilaterally Coordination: finger to nose without bipass Gait/Stance: Posture lying in bed Motor: Negative for pronator drift of out stretched arms with eyes closed. 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/5 bilaterally right LE 4/5 hip flex plantar flex ext 5/5, left 1/5 hip flex plantar flex ext 0/5 Current Inpatient Medications Medications (Trade) Dose Ordered Sig/Abdi Route Start Time Stop Time Status Last Admin Dose Admin Ioversol (Optiray 320) 100 ml UD PRN IV 10/03/17 12:30 10/07/17 12:29 Heparin Sodium (Porcine) (Heparin Sq 5000 Unit/0.5ml) 5,000 unit Q8 SQ 10/03/17 22:00 11/02/17 21:59 10/05/17 06:40 5,000 UNIT Acetaminophen (Tylenol Tab) 650 mg Q4H PRN PO 10/03/17 14:15 11/02/17 14:14 Miscellaneous Information (Consult Glycemic Management Pharmacy) 1 ea UD PRN N/A 10/03/17 15:26 11/02/17 15:25 Glucose (Glucose 40% Gel) 15-30 GRAMS 15 GRAMS... UD PRN PO 10/03/17 15:15 11/02/17 15:14 Glucose (Glucose Chew Tab) 4-8 Tablets 4 Tabl... UD PRN PO 10/03/17 15:15 11/02/17 15:14 Dextrose (Dextrose 50% 50ML Syringe) 25-50ML OF 50% DW IV FOR... UD PRN IV 10/03/17 15:15 11/02/17 15:14 Glucagon (Glucagon Inj) 1 mg UD PRN SQ 10/03/17 15:15 11/02/17 15:14 Citalopram Hydrobromide (celeXA TAB) 20 mg QAM PO 10/04/17 09:00 11/03/17 08:59 10/05/17 07:26 20 MG Clopidogrel Bisulfate (plAVix TAB) 75 mg DAILY PO 10/04/17 09:00 11/03/17 08:59 10/05/17 07:26 75 MG Levothyroxine Sodium (Synthroid Tab) 200 mcg DAILYBB PO 10/04/17 06:00 11/03/17 05:59 10/05/17 06:34 200 MCG Metoprolol Tartrate (Lopressor Tab) 12.5 mg BID PO 10/03/17 21:00 11/02/17 20:59 Lansoprazole (Prevacid Solutab) 30 mg DAILY NG 10/04/17 09:00 11/03/17 08:59 10/05/17 07:26 30 MG Aspirin (Aspirin Chew) 81 mg DAILY NG 10/04/17 09:00 11/03/17 08:59 10/05/17 07:27 81 MG Insulin Aspart (novoLOG ASPART) SLIDING SCALE PCHS SC 10/04/17 12:00 10/05/17 16:30 Insulin Human Regular 250 units/ Sodium Chloride 252.5 ml @ 0 mls/hr Q24H IV 10/04/17 13:00 10/05/17 16:30 10/04/17 13:49 3.3 MLS/HR Insulin Aspart (novoLOG ASPART) SLIDING SCALE G... ACHS SC 10/05/17 16:30 11/04/17 16:29 Ipratropium [employer] (Atrovent 0.02% 0.5MG/2.5ML Neb) 0.5 mg Q4R INH 10/05/17 12:00 11/04/17 11:59 10/05/17 11:31 0.5 MG Levalbuterol (Xopenex 1.25MG/ 0.5ML Neb) 1.25 mg Q4R INH 10/05/17 12:00 11/04/17 11:59 10/05/17 11:31 1.25 MG Ipratropium [employer] (Atrovent 0.02% 0.5MG/2.5ML Neb) 0.5 mg Q2H PRN INH 10/05/17 10:30 11/04/17 10:29 Levalbuterol (Xopenex 1.25MG/ 0.5ML Neb) 1.25 mg Q2H PRN INH 10/05/17 10:30 11/04/17 10:29 Miscellaneous (Stop Order) 1 ea TODAY@1630 ONCE N/A 10/05/17 16:30 10/05/17 16:31 Prednisone (PredniSONE TAB) 20 mg BIDM PO 10/05/17 11:00 10/06/17 16:31 10/05/17 10:59 20 MG Prednisone (PredniSONE TAB) 20 mg DAILY PO 10/07/17 09:00 10/08/17 09:01 Insulin Glargine (Lantus Vial) 50 units BID SC 10/05/17 10:30 11/04/17 10:29 Future Hold 10/05/17 11:00 50 UNITS Impression 56 year old female with morbid obesity and progressive weakness now extubated Plan 1. progressive weakness- will need further work up for neurologic causes however L>R weakness 2. bilateral LE weakness but weak on the left - she has been confined to bed and austen lift in [facility]- had not walked for 3 years. 3. correct any metabolic issues 4. left sided LE weakness started with a fall 3 year ago - does not seem like upper motor neuron or central. Lower motor should be tested as out patient with EMG. agree with acetylcholine AB-pending 5. SNF she is non weight bearing and 2 person assist with austen lift 6. TSH WNL sed rate 79 7. pulmonary evaluation for restrictive vs obstructive cause of respiratory failure 8. consider MRI L spine if not previously assessed 9. no obvious progressive weakness per patient or fatigability will await the acetylcholine AB test results I have seen and discussed above patient with Dr Maria Antonia Shaw, neurology Pt seen and examined, No hx of fatigue weakness, NO incontinence, no back pain. No CN or UE, no fatiguability. BL LE weakness, L>R, present ankle jerks, toes donw, no significant sensory loss. Imp doubt MG. REc MRI L spine once able and NCV EMG as outpt.ANGEL Shaw MD
--- NOTE | 2017-10-05 14:30 | Pharmacy Progress Note ---
Pharmacy Glycemic Sign Off Nt Date of Service Oct 05, 2017. Assessment & Plan ASSESSMENT: * Pharmacy was consulted by Kailey Frank on 10/03/17 for glycemic control and to write orders per [facility] inpatient glycemic control protocol. * Major events over the last 24 hrs: * Extubated and off sedation this AM * Steroid dose being tapered significantly * ABX stopped due to low suspicion of infxn * Resident physician to manage SQ transition off insulin drip today. Provided resident with information from past experience when managing this patient on similar steroid doses. Glycemic control service will continue to provide recommendations at AM multidisciplinary rounds while in ICU. * Pharmacy is signing off of glycemic consult and will no longer be making adjustments to inpatient regimen. Please feel free to re-consult if needed. Thank you.
[2017-10-05] MEDS: ACETAMINOPHEN 325 MG TAB PO PRN (14:48)
[2017-10-05] MEDS ORDERED: [UNRECOGNIZED DRUG - REMARK] ONE (16:30)
[2017-10-05] MEDS ORDERED: INSULIN GLARGINE SOLOSTAR 100 UNITS/ML 3 ML PEN SC ONE (21:00)
[2017-10-05 23:28] LABS: RECEPTOR BINDING AB <0.30 nmol/L (<=0.30)
[2017-10-06] VITALS (16 sets, daily range): BP systolic 131–187; BP diastolic 50–77; PULSE 52–71; TEMP 36.7–37; O2SAT 91–95
[2017-10-06] MEDS: IPRATROPIUM BROMIDE NEB SOLN 0.02% 2.5 ML VIAL INH SCH ×5 (03:46→23:17)
[2017-10-06] MEDS: LEVALBUTEROL 1.25MG/0.5ML NEB INH SCH ×5 (03:46→23:17)
[2017-10-06 05:32] LABS: COMPLETE YES; EOS % 0.1 %; HEMATOCRIT 37.6 % (37-47); IG% 0.4 %; LYMPH % 16.9 %; LYMPH ABS # 1.67 K/uL (1.2-3.4); MEAN CELL VOLUME 96.2 fL (80-100); MEAN CORPUSCULAR HEMOGLOBIN 30.9 pg (25-34); MEAN CORPUSCULAR HGB CONC 32.2 g/dl (32-36); MEAN PLATELET VOLUME 8.6 fL (7.4-10.4); MONO % 7.7 %; NEUT % 74.9 %; PLATELET COUNT 206 K/uL (130-400); RED BLOOD COUNT 3.91 M/uL (4.2-5.4); WHITE BLOOD COUNT 9.88 K/uL (4.8-10.8)
[2017-10-06 06:18] LABS: ALKALINE PHOSPHATASE 109 U/L (45-117); ALT/SGPT 45 U/L (12-78); AST/SGOT 23 U/L (15-37); BLOOD UREA NITROGEN 19 mg/dl (7-18); BUN/CREATININE RATIO 47.4 (10-20); CALCIUM 9.2 mg/dl (8.5-10.1); CARBON DIOXIDE 36 mmol/L (21-32); CHLORIDE 92 mmol/L (98-107); GLUCOSE 94 mg/dl (70-99); PHOSPHORUS 3.3 mg/dl (2.5-4.9); POTASSIUM 3.9 mmol/L (3.5-5.1); SODIUM 134 mmol/L (136-145)
[2017-10-06] MEDS: LEVOTHYROXINE 200 MCG TAB PO SCH (06:32)
[2017-10-06] MEDS: HEPARIN SOD 5000 UNIT/0.5 ML CARP SQ SCH ×3 (06:33→21:34)
[2017-10-06] MEDS ORDERED: NURSING VERBAL MED ORDER ONE (07:30)
[2017-10-06] MEDS: CLOPIDOGREL BISULFATE 75 MG TAB PO SCH (07:38)
[2017-10-06] MEDS: CITALOPRAM 20 MG TAB PO SCH (07:38)
[2017-10-06] MEDS: ASPIRIN 81 MG CHEW NG SCH (07:38)
[2017-10-06] MEDS: LANSOPRAZOLE SOLUTAB 30 MG NG SCH (07:38)
--- NOTE | 2017-10-06 08:15 | Progress Note ---
Internal Med Progress Note Date of Service: Oct 06, 2017. Provider Documentation: SUBJECTIVE: Seen and examined at bedside Doing well this morning Less cough Denies chest pain, SOB, dizziness, nausea, dysuria No other complaints OBJECTIVE: Vital Signs-as noted below Physical Exam: General Appearance:Obese, no apparent distress Head: normocephalic, Atraumatic Eyes: normal inspection, EOMI, PERRL Neck: supple, Trachea midline Respiratory/Chest: Normal breath sounds, CTA Cardiovascular: S1, S2, No murmur Abdomen/GI:Soft, Non tender, Bowel sounds present Extremities/Musculoskelatal:normal inspection, Trace b/l zulay Neurologic/Psych:B/L LE weakness L>R Skin: normal color, warm Lab data as noted below. 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 Acute on chronic hypoxic and hypercapnic respiratory failure: Likely multifactorial: 2/2 COPD exacerbation, PNA S/P Extubation: 10/05/17 Chronic Oxygen dependency CTA:No PE, small b/l pleural effusions, pulm edema, b/l lower lobe consolidation , mild mediastinal lymphadenopathy Levaquin discontinued Blood culture: /2: Coag negative staph: likely contamination sputum culture: Staph aureus likely colonization IV steroids>>>Prednisone taper, duonebs Lasix PRN Continue BiPAP QHS Encephalopathy: Likely metabolic UTI Likely 2/2 hypercarbia; UTI Ammonia: normal Urine Cx:Proteus and E.coli Received Levaquin, antibiotics discontinued as asymptomatic, afebrile, no leukocytosis Will start on Abx if clinically requires B/L LE weakness: TSH: normal Acetylcholine receptor ab:Negative Will get MRI L spine May need NCV-EMG as outpatient Appreciate Neurology Input PT/OT Hypomagnesemia/Hypophosphatemia: Resolved Monitor Sinus Bradycardia: BB on hold monitor Chest pain: Per initial interview, CP is central, non-radiating H/o STEMI (s/p stent) R/o ACS; risk factors: DM II, CAD, HLD, current smoker Troponin: negative EKG without ischemic changes CXR with pulmonary edema, possible bibasilar PNA ECHO:No segmental left ventricular wall motion abnormalities DM II: Hold home agents Glycemic consult placed in setting of IV steroids ISS, Accu checks Hgb a1c:6.5 Hyponatremia: Chronic Improved Monitor Sodium levels HLD: Continue statin CAD (s/p stent): Continue aspirin, plavix HTN: metoprolol on hold secondary to relative bradycardia Cirrhosis 2/2 AIH: Stable DVT Px: Heparin SQ Code status: FULL PCP: [facility], [facility] Disposition: Presented from [facility] PROCEDURES: ECHO: No change compared to previous study of 06/22/17. * Normal LV chamber size with mild concentric LVH. * Normal LV systolic function, EF 60-65%. * No segmental left ventricular wall motion abnormalities are noted. * Grade II diastolic dysfunction. * Poorly visualized valvular structures without significant stenosis or regurgitation by Doppler. Vital Signs: Date Time Temp Pulse Resp B/P (MAP) Pulse Ox O2 Delivery O2 Flow Rate FiO2 10/06/17 07:19 60 23 93 BiPAP/CPAP 30 10/06/17 07:19 60 93 30 10/06/17 06:00 53 21 148/50 (82) 91 BiPAP 30 10/06/17 05:23 58 93 30 10/06/17 04:00 BiPAP 30 10/06/17 04:00 36.8 53 16 157/69 (98) 94 BiPAP 30 10/06/17 03:46 52 94 30 10/06/17 03:46 52 22 94 BiPAP/CPAP 30 10/06/17 02:00 54 24 157/64 (95) 92 BiPAP 30 10/06/17 00:01 36.7 56 24 141/59 (86) 93 BiPAP 30 10/05/17 23:59 BiPAP 30 10/05/17 23:02 61 28 93 BiPAP/CPAP 30 10/05/17 23:02 61 93 30 10/05/17 22:00 60 20 129/54 (79) 93 BiPAP 30 10/05/17 21:57 62 94 30 10/05/17 20:26 61 18 96 Nasal Cannula 5.0 10/05/17 20:00 97 Nasal Cannula 5.0 10/05/17 20:00 36.6 67 20 106/46 (66) 97 Nasal Cannula 5.0 10/05/17 18:00 68 18 100/46 (64) 93 Nasal Cannula 5.0 10/05/17 16:00 36.8 72 22 139/55 (83) 93 Nasal Cannula 5.0 10/05/17 16:00 93 Nasal Cannula 5.0 10/05/17 15:55 61 24 96 Nasal Cannula 6.0 10/05/17 14:00 36.7 63 18 130/59 (82) 92 Nasal Cannula 6.0 10/05/17 12:00 Nasal Cannula 6.0 10/05/17 12:00 60 26 118/49 (72) 93 Nasal Cannula 6.0 10/05/17 11:31 64 22 91 Mask 5.0 10/05/17 10:07 60 26 143/59 (87) 90 Oxymask 5.0 Lab Results: Results Past 24 Hours Test 10/05/17 09:03 10/05/17 11:48 10/05/17 13:02 10/05/17 16:27 Range/Units Bedside Glucose 139 127 149 143 70-90 mg/dl Test 10/05/17 21:03 10/06/17 05:17 10/06/17 08:10 Range/Units Bedside Glucose 132 70-90 mg/dl White Blood Count 9.88 4.8-10.8 K/uL Red Blood Count 3.91 4.2-5.4 M/uL Hemoglobin 12.1 12.0-16.0 g/dL Hematocrit 37.6 37-47 % Mean Corpuscular Volume 96.2 80-100 fL Mean Corpuscular Hemoglobin 30.9 25-34 pg Mean Corpuscular Hemoglobin Concent 32.2 32-36 g/dl Platelet Count 206 130-400 K/uL Mean Platelet Volume 8.6 7.4-10.4 fL Neutrophils (%) (Auto) 74.9 % Lymphocytes (%) (Auto) 16.9 % Monocytes (%) (Auto) 7.7 % Eosinophils (%) (Auto) 0.1 % Basophils (%) (Auto) 0.0 % Neutrophils # (Auto) 7.40 1.4-6.5 K/uL Lymphocytes # (Auto) 1.67 1.2-3.4 K/uL Monocytes # (Auto) 0.76 0.11-0.59 K/uL Eosinophils # (Auto) 0.01 0-0.5 K/uL Basophils # (Auto) 0.00 0-0.2 K/uL RDW Standard Deviation 48.4 36.4-46.3 fL RDW Coefficient of Variation 14.0 11.5-14.5 % Immature Granulocyte % (Auto) 0.4 % Immature Granulocyte # (Auto) 0.04 0.00-0.02 K/uL Sodium Level 134 136-145 mmol/L Potassium Level 3.9 3.5-5.1 mmol/L Chloride Level 92 98-107 mmol/L Carbon Dioxide Level 36 21-32 mmol/L Anion Gap 6.0 3-11 mmol/L Blood Urea Nitrogen 19 7-18 mg/dl Creatinine 0.40 0.60-1.20 mg/dl Est Creatinine Clear Calc Drug Dose 200.6 ml/min Estimated GFR () 134.0 Estimated GFR (Non- 115.6 BUN/Creatinine Ratio 47.4 10-20 Random Glucose 94 70-99 mg/dl Calcium Level 9.2 8.5-10.1 mg/dl Phosphorus Level 3.3 2.5-4.9 mg/dl Magnesium Level 2.0 1.8-2.4 mg/dl Total Bilirubin 0.3 0.2-1 mg/dl Direct Bilirubin 0-0.2 mg/dl Aspartate Amino Transf (AST/SGOT) 23 15-37 U/L Alanine Aminotransferase (ALT/SGPT) 45 12-78 U/L Alkaline Phosphatase 109 45-117 U/L Total Protein 7.1 6.4-8.2 gm/dl Albumin 2.9 3.4-5.0 gm/dl Chemistry Specimen Hemolysis
[2017-10-06] MEDS: INSULIN ASPART 100 UNITS/ML 3 ML PEN SC SCH ×4 (08:47→21:31)
[2017-10-06] MEDS ORDERED: INSULIN GLARGINE SOLOSTAR 100 UNITS/ML 3 ML PEN SC SCH (08:56)
[2017-10-06] MEDS ORDERED: INSULIN GLARGINE SC SCH (10:30)
--- NOTE | 2017-10-06 10:57 | Critical Care Progress Note ---
Critical Care Progress Note Date of Service Oct 06, 2017. ICU Day ICU Day Number: [address] Daniel Subjective Patient well overnight night, denies acute issues. Breathing comfortably with oxygen via nasal cannula. She denies CP, palpitations, N/V/abdominal pain. She is tolerating diet. She is finding that she is urinating frequently but denies other urinary symptoms. No issues with BM. Management plans were discussed with the patient. Objective GENERAL: alert, obese, sitting in bed, no acute distress, non-toxic, oxymask on HEAD: NC/AT. No sinus tenderness EYES: Normal sclera and conjunctiva OROPHARYNX: No exudate, no erythema. Lips, buccal mucosa, and tongue normal and mucous membranes are dry NECK: Supple, no adenopathy, non-tender LUNGS: Clear to auscultation. Normal chest wall mechanics, diminished breath sounds bibasilarly. No crepitations, crackles, or wheezes HEART: RRR, S1 and S2 normal, no murmurs appreciated ABDOMEN: Soft, non-tender, normo-active bowel sounds, no masses, no rebound or guarding. SKIN: Warm, pink, dry. No erythema, rashes, or bruising. EXTREMITIES: Grossly normal. No pitting edema. Calves supple. NEURO: Alert, Ox3. No focal deficits. Cranial nerves II-XII grossly intact, normal speech. PSYCH: Mood and affect appropriate. Current SOFA Score SOFA Score Response (Comments) Value Platelets (x10) > 150 0 Bilirubin (mg/dL) < 1.2 0 [place] Coma Score 15 0 Level of Hypotension No Hypotension 0 Creatinine (mg/dL) < 1.2 0 Total 0 Assessment & Plan Reason critically ill: 56 year old female presents with acute hypoxic respiratory failure necessitating intubation for airway protection. Neuro - CAM negative - Continue citalopram for depression - Neurology consulted for subacute deterioration on background autoimmune hepatitis and skin hypo/hyperpigmented spots - recs appreciated. - MRI spine ordered. - Neurology will follow up outpatient for further testing - Acetylcholine receptor binding antibody levels pending CV - Hemodynamically stable. - Continue home meds: aspirin, clopidogrel, atorvastatin - Metoprolol held for bradycardia Resp - s/p extubation, on NC 4L - Continue prednisone 20mg BID today, 20mg daily x 2 days, then stop - Continue nebulizers: Atrovent and Xopenex GI//Nutrition - Diet: AHA/DM diet - Prophylaxis: lansoprazole Renal/electrolytes - Labs show electrolytes K+, Mg+, PO4 WNL - Trend BMP ID - Blood, urine, wound, and sputum culture show polymicrobial growth - likely chronic colonization +/- contamination given patient asymptotic, without fever, and no leukocytosis on admission - Antibiotics (levofloxacin) discontinued due to low perceived benefits. - Will monitor and keep low threshold to restart antibiotics if warranted Endo - HbA1c 6.5, fasting lipids acceptable - Lantus to 35 BID tomorrow, and adjust accordingly to steroid taper - Continue levothyroxine 200mcg Heme - H/H stable. No leukocytosis. Platelets WNL MSK - PT/OT Access/Line - 2 peripheral IVs VTE Prophylaxis - Heparin SC q8h Resident Physician Supervision Note: I was present with Dr. Bronson during the history and exam. I discussed the case with the resident and agree with the findings and plan as documented in the note. Any exceptions or clarifications are listed here: [None] Documented By: Kodak Daniel Consults & Procedures Consultants: Taping Supervisor Neurology Procedures: Intubation 10/03/17 Extubation 10/05/17 Data Medications: Current Inpatient Medications Medications (Trade) Dose Ordered Sig/Abdi Route Start Time Stop Time Status Last Admin Dose Admin Ioversol (Optiray 320) 100 ml UD PRN IV 10/03/17 12:30 10/07/17 12:29 Heparin Sodium (Porcine) (Heparin Sq 5000 Unit/0.5ml) 5,000 unit Q8 SQ 10/03/17 22:00 11/02/17 21:59 10/06/17 06:33 5,000 UNIT Acetaminophen (Tylenol Tab) 650 mg Q4H PRN PO 10/03/17 14:15 11/02/17 14:14 10/05/17 14:48 650 MG Glucose (Glucose 40% Gel) 15-30 GRAMS 15 GRAMS... UD PRN PO 10/03/17 15:15 11/02/17 15:14 Glucose (Glucose Chew Tab) 4-8 Tablets 4 Tabl... UD PRN PO 10/03/17 15:15 11/02/17 15:14 Dextrose (Dextrose 50% 50ML Syringe) 25-50ML OF 50% DW IV FOR... UD PRN IV 10/03/17 15:15 11/02/17 15:14 Glucagon (Glucagon Inj) 1 mg UD PRN SQ 10/03/17 15:15 11/02/17 15:14 Citalopram Hydrobromide (celeXA TAB) 20 mg QAM PO 10/04/17 09:00 11/03/17 08:59 10/06/17 07:38 20 MG Clopidogrel Bisulfate (plAVix TAB) 75 mg DAILY PO 10/04/17 09:00 11/03/17 08:59 10/06/17 07:38 75 MG Levothyroxine Sodium (Synthroid Tab) 200 mcg DAILYBB PO 10/04/17 06:00 11/03/17 05:59 10/06/17 06:32 200 MCG Insulin Aspart (novoLOG ASPART) SLIDING SCALE G... ACHS SC 10/05/17 16:30 11/04/17 16:29 10/06/17 08:47 12 UNITS Ipratropium [place] (Atrovent 0.02% 0.5MG/2.5ML Neb) 0.5 mg Q4R INH 10/05/17 12:00 11/04/17 11:59 10/06/17 07:18 0.5 MG Levalbuterol (Xopenex 1.25MG/ 0.5ML Neb) 1.25 mg Q4R INH 10/05/17 12:00 11/04/17 11:59 10/06/17 07:18 1.25 MG Ipratropium [place] (Atrovent 0.02% 0.5MG/2.5ML Neb) 0.5 mg Q2H PRN INH 10/05/17 10:30 11/04/17 10:29 Levalbuterol (Xopenex 1.25MG/ 0.5ML Neb) 1.25 mg Q2H PRN INH 10/05/17 10:30 11/04/17 10:29 Prednisone (PredniSONE TAB) 20 mg BIDM PO 10/05/17 11:00 10/06/17 17:01 10/06/17 07:38 20 MG Prednisone (PredniSONE TAB) 20 mg DAILY PO 10/07/17 08:00 10/08/17 08:01 Insulin Glargine (Lantus Solostar Pen) 35 units BID SC 10/06/17 08:56 11/05/17 08:59 Future hold 10/06/17 07:40 35 UNITS Pantoprazole Sodium (Protonix Tab) 40 mg DAILY PO 10/07/17 08:00 11/06/17 07:59 Aspirin (Ecotrin Tab) 81 mg DAILY PO 10/07/17 08:00 11/06/17 07:59 Vital Signs: Date Time Temp Pulse Resp B/P (MAP) Pulse Ox O2 Delivery O2 Flow Rate FiO2 10/06/17 09:00 58 22 187/77 (113) 94 10/06/17 08:00 54 22 156/65 (95) 94 Nasal Cannula 4.0 10/06/17 08:00 Nasal Cannula 4.0 10/06/17 07:19 60 23 93 BiPAP/CPAP 30 10/06/17 07:19 60 93 30 10/06/17 06:00 53 21 148/50 (82) 91 BiPAP 30 10/06/17 05:23 58 93 30 10/06/17 04:00 BiPAP 30 10/06/17 04:00 36.8 53 16 157/69 (98) 94 BiPAP 30 10/06/17 03:46 52 94 30 10/06/17 03:46 52 22 94 BiPAP/CPAP 30 10/06/17 02:00 54 24 157/64 (95) 92 BiPAP 30 10/06/17 00:01 36.7 56 24 141/59 (86) 93 BiPAP 30 10/05/17 23:59 BiPAP 30 10/05/17 23:02 61 28 93 BiPAP/CPAP 30 10/05/17 23:02 61 93 30 10/05/17 22:00 60 20 129/54 (79) 93 BiPAP 30 10/05/17 21:57 62 94 30 10/05/17 20:26 61 18 96 Nasal Cannula 5.0 10/05/17 20:00 97 Nasal Cannula 5.0 10/05/17 20:00 36.6 67 20 106/46 (66) 97 Nasal Cannula 5.0 10/05/17 18:00 68 18 100/46 (64) 93 Nasal Cannula 5.0 10/05/17 16:00 36.8 72 22 139/55 (83) 93 Nasal Cannula 5.0 10/05/17 16:00 93 Nasal Cannula 5.0 10/05/17 15:55 61 24 96 Nasal Cannula 6.0 10/05/17 14:00 36.7 63 18 130/59 (82) 92 Nasal Cannula 6.0 10/05/17 12:00 Nasal Cannula 6.0 10/05/17 12:00 60 26 118/49 (72) 93 Nasal Cannula 6.0 10/05/17 11:31 64 22 91 Mask 5.0 Laboratory Results: Last 24 Hours Test 10/05/17 11:48 10/05/17 13:02 10/05/17 16:27 10/05/17 21:03 Bedside Glucose 127 mg/dl 149 mg/dl 143 mg/dl 132 mg/dl Test 10/06/17 05:17 10/06/17 08:10 White Blood Count 9.88 K/uL Red Blood Count 3.91 M/uL Hemoglobin 12.1 g/dL Hematocrit 37.6 % Mean Corpuscular Volume 96.2 fL Mean Corpuscular Hemoglobin 30.9 pg Mean Corpuscular Hemoglobin Concent 32.2 g/dl Platelet Count 206 K/uL Mean Platelet Volume 8.6 fL Neutrophils (%) (Auto) 74.9 % Lymphocytes (%) (Auto) 16.9 % Monocytes (%) (Auto) 7.7 % Eosinophils (%) (Auto) 0.1 % Basophils (%) (Auto) 0.0 % Neutrophils # (Auto) 7.40 K/uL Lymphocytes # (Auto) 1.67 K/uL Monocytes # (Auto) 0.76 K/uL Eosinophils # (Auto) 0.01 K/uL Basophils # (Auto) 0.00 K/uL RDW Standard Deviation 48.4 fL RDW Coefficient of Variation 14.0 % Immature Granulocyte % (Auto) 0.4 % Immature Granulocyte # (Auto) 0.04 K/uL Sodium Level 134 mmol/L Potassium Level 3.9 mmol/L Chloride Level 92 mmol/L Carbon Dioxide Level 36 mmol/L Anion Gap 6.0 mmol/L Blood Urea Nitrogen 19 mg/dl Creatinine 0.40 mg/dl Est Creatinine Clear Calc Drug Dose 200.6 ml/min Estimated GFR () 134.0 Estimated GFR (Non- 115.6 BUN/Creatinine Ratio 47.4 Random Glucose 94 mg/dl Calcium Level 9.2 mg/dl Phosphorus Level 3.3 mg/dl Magnesium Level 2.0 mg/dl Total Bilirubin 0.3 mg/dl Direct Bilirubin mg/dl 0.1 mg/dl Aspartate Amino Transf (AST/SGOT) 23 U/L Alanine Aminotransferase (ALT/SGPT) 45 U/L Alkaline Phosphatase 109 U/L Total Protein 7.1 gm/dl Albumin 2.9 gm/dl Chemistry Specimen Hemolysis Resident Tracking Resident Involvement: Resident Care Provided Care Provided: Adult Hospital Medicine
--- NOTE | 2017-10-06 14:04 | Neurology Progress Notes ---
Neurology Progress Note Date of Service Oct 06, 2017. 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 She presented with SOB and that started 2 days ago. [facility] nurse , reported 09/30 she was at her baseline which she has austen lift for transfers. She was complaining of SOB but O2 saturation on 2L NC was 95%. Ate breakfast without a problem. A few hours later, was found to be in respiratory distress, using accessory muscles with an O2 saturation of 84% and CP. Her O2 was increase to 6L and EMS was called. She was confused on arrival to ED and then after a CXR she was unresponsive. While they were preparing for intubation she woke up and responded to verbal commands. She was started on bipap and O2 saturation improved to 90%. She was then intubated for airway protection. Currently she is extubated she states she is feeling much better today. She states she has not walked for 3 years. She had a fall while visiting her daughter. She hurt her back and has had left sided weakness since that time. She has been working with physical therapy at the SNF to be able to walk with a walker. \ Today she thinks she is at her baseline. denies CP, SOB, new one sided numbness weakness, tingling, headache, N, V, no fatigability during the day. Objective Date Time Temp Pulse Resp B/P (MAP) Pulse Ox O2 Delivery O2 Flow Rate FiO2 10/06/17 09:00 58 22 187/77 (113) 94 10/06/17 08:00 54 22 156/65 (95) 94 Nasal Cannula 4.0 10/06/17 08:00 Nasal Cannula 4.0 10/06/17 07:19 60 23 93 BiPAP/CPAP 30 10/06/17 07:19 60 93 30 10/06/17 06:00 53 21 148/50 (82) 91 BiPAP 30 10/06/17 05:23 58 93 30 10/06/17 04:00 BiPAP 30 10/06/17 04:00 36.8 53 16 157/69 (98) 94 BiPAP 30 10/06/17 03:46 52 94 30 10/06/17 03:46 52 22 94 BiPAP/CPAP 30 10/06/17 02:00 54 24 157/64 (95) 92 BiPAP 30 10/06/17 00:01 36.7 56 24 141/59 (86) 93 BiPAP 30 10/05/17 23:59 BiPAP 30 10/05/17 23:02 61 28 93 BiPAP/CPAP 30 10/05/17 23:02 61 93 30 10/05/17 22:00 60 20 129/54 (79) 93 BiPAP 30 10/05/17 21:57 62 94 30 10/05/17 20:26 61 18 96 Nasal Cannula 5.0 10/05/17 20:00 97 Nasal Cannula 5.0 10/05/17 20:00 36.6 67 20 106/46 (66) 97 Nasal Cannula 5.0 10/05/17 18:00 68 18 100/46 (64) 93 Nasal Cannula 5.0 10/05/17 16:00 36.8 72 22 139/55 (83) 93 Nasal Cannula 5.0 10/05/17 16:00 93 Nasal Cannula 5.0 10/05/17 15:55 61 24 96 Nasal Cannula 6.0 10/05/17 14:00 36.7 63 18 130/59 (82) 92 Nasal Cannula 6.0 Last 24 Hours Test 10/05/17 16:27 10/05/17 21:03 10/06/17 05:17 10/06/17 08:10 Bedside Glucose 143 mg/dl 132 mg/dl White Blood Count 9.88 K/uL Red Blood Count 3.91 M/uL Hemoglobin 12.1 g/dL Hematocrit 37.6 % Mean Corpuscular Volume 96.2 fL Mean Corpuscular Hemoglobin 30.9 pg Mean Corpuscular Hemoglobin Concent 32.2 g/dl Platelet Count 206 K/uL Mean Platelet Volume 8.6 fL Neutrophils (%) (Auto) 74.9 % Lymphocytes (%) (Auto) 16.9 % Monocytes (%) (Auto) 7.7 % Eosinophils (%) (Auto) 0.1 % Basophils (%) (Auto) 0.0 % Neutrophils # (Auto) 7.40 K/uL Lymphocytes # (Auto) 1.67 K/uL Monocytes # (Auto) 0.76 K/uL Eosinophils # (Auto) 0.01 K/uL Basophils # (Auto) 0.00 K/uL RDW Standard Deviation 48.4 fL RDW Coefficient of Variation 14.0 % Immature Granulocyte % (Auto) 0.4 % Immature Granulocyte # (Auto) 0.04 K/uL Sodium Level 134 mmol/L Potassium Level 3.9 mmol/L Chloride Level 92 mmol/L Carbon Dioxide Level 36 mmol/L Anion Gap 6.0 mmol/L Blood Urea Nitrogen 19 mg/dl Creatinine 0.40 mg/dl Est Creatinine Clear Calc Drug Dose 200.6 ml/min Estimated GFR () 134.0 Estimated GFR (Non- 115.6 BUN/Creatinine Ratio 47.4 Random Glucose 94 mg/dl Calcium Level 9.2 mg/dl Phosphorus Level 3.3 mg/dl Magnesium Level 2.0 mg/dl Total Bilirubin 0.3 mg/dl Direct Bilirubin mg/dl 0.1 mg/dl Aspartate Amino Transf (AST/SGOT) 23 U/L Alanine Aminotransferase (ALT/SGPT) 45 U/L Alkaline Phosphatase 109 U/L Total Protein 7.1 gm/dl Albumin 2.9 gm/dl Chemistry Specimen Hemolysis Test 10/06/17 12:18 Bedside Glucose 96 mg/dl Imaging: no new imaging Exam: Physical Exam: Constitutional: appearance nourished, obese Ears, Nose, Mouth and Throat: mucous membranes moist, no injection and skin normal, eyes normal Cardiovascular: normal S-1 and S-2 and regular rate and rhythm Respiratory: course breath sounds Musculoskeletal: pitting edema distant pulses Skin: no stigmata of neurocutaneous disease noted and normal and intact Eyes: extraocular muscles intact (EOMI) and pupils equal, round and reactive to light (PERRL) NEUROLOGIC EXAMINATION: Mental status: Alert and interactive Oriented to full date and location Oriented to person Speech fluent with no evidence of aphasia Cranial Nerves smile eye brow raise symmetric, tongue midline Reflexes: Deep tendon reflexes were symmetrical and graded 2/5 UE. LE decreased reflexes left knee jerk and ankle jerk Sensory: no deficit to cool or light touch, decrease sensation to vibration to ankle Coordination: finger to nose with no bi pass Gait/Stance: Posture lying in bed Motor: Negative for pronator drift of out stretched arms with eyes closed. Strength: UE bilaterally biceps triceps hand deli/bakery associate 5/5, RLE lifts against gravity plantar flex ext 5/5. LLE lifts against gravity from hip. plantar flex 3/5, ext 1/5 Current Inpatient Medications Medications (Trade) Dose Ordered Sig/Abdi Route Start Time Stop Time Status Last Admin Dose Admin Ioversol (Optiray 320) 100 ml UD PRN IV 10/03/17 12:30 10/07/17 12:29 Heparin Sodium (Porcine) (Heparin Sq 5000 Unit/0.5ml) 5,000 unit Q8 SQ 10/03/17 22:00 11/02/17 21:59 10/06/17 06:33 5,000 UNIT Acetaminophen (Tylenol Tab) 650 mg Q4H PRN PO 10/03/17 14:15 11/02/17 14:14 10/05/17 14:48 650 MG Glucose (Glucose 40% Gel) 15-30 GRAMS 15 GRAMS... UD PRN PO 10/03/17 15:15 11/02/17 15:14 Glucose (Glucose Chew Tab) 4-8 Tablets 4 Tabl... UD PRN PO 10/03/17 15:15 11/02/17 15:14 Dextrose (Dextrose 50% 50ML Syringe) 25-50ML OF 50% DW IV FOR... UD PRN IV 10/03/17 15:15 11/02/17 15:14 Glucagon (Glucagon Inj) 1 mg UD PRN SQ 10/03/17 15:15 11/02/17 15:14 Citalopram Hydrobromide (celeXA TAB) 20 mg QAM PO 10/04/17 09:00 11/03/17 08:59 10/06/17 07:38 20 MG Clopidogrel Bisulfate (plAVix TAB) 75 mg DAILY PO 10/04/17 09:00 11/03/17 08:59 10/06/17 07:38 75 MG Levothyroxine Sodium (Synthroid Tab) 200 mcg DAILYBB PO 10/04/17 06:00 11/03/17 05:59 10/06/17 06:32 200 MCG Insulin Aspart (novoLOG ASPART) SLIDING SCALE G... ACHS SC 10/05/17 16:30 11/04/17 16:29 10/06/17 12:22 13 UNITS Ipratropium [place] (Atrovent 0.02% 0.5MG/2.5ML Neb) 0.5 mg Q4R INH 10/05/17 12:00 11/04/17 11:59 10/06/17 07:18 0.5 MG Levalbuterol (Xopenex 1.25MG/ 0.5ML Neb) 1.25 mg Q4R INH 10/05/17 12:00 11/04/17 11:59 10/06/17 07:18 1.25 MG Ipratropium [place] (Atrovent 0.02% 0.5MG/2.5ML Neb) 0.5 mg Q2H PRN INH 10/05/17 10:30 11/04/17 10:29 Levalbuterol (Xopenex 1.25MG/ 0.5ML Neb) 1.25 mg Q2H PRN INH 10/05/17 10:30 11/04/17 10:29 Prednisone (PredniSONE TAB) 20 mg BIDM PO 10/05/17 11:00 10/06/17 17:01 10/06/17 07:38 20 MG Prednisone (PredniSONE TAB) 20 mg DAILY PO 10/07/17 08:00 10/08/17 08:01 Pantoprazole Sodium (Protonix Tab) 40 mg DAILY PO 10/07/17 08:00 11/06/17 07:59 Aspirin (Ecotrin Tab) 81 mg DAILY PO 10/07/17 08:00 11/06/17 07:59 Insulin Glargine (Lantus Solostar Pen) 55 units QAM SC 10/07/17 08:00 11/06/17 07:59 Impression 56 year old female with morbid obesity and progressive weakness now extubated Plan 1. progressive weakness- will need further work up for neurologic causes however L>R weakness- currently at baseline 2. bilateral LE weakness but weak on the left - she has been confined to bed and austen lift - had not walked for 3 years. 3. correct any metabolic issues 4. left sided LE weakness started with a fall 3 year ago - does not seem like upper motor neuron or central. Lower motor should be tested as out patient with EMG. agree with acetylcholine AB-normal <.30 5. SNF she is non weight bearing and 2 person assist with austen lift 6. TSH WNL sed rate 79 7. pulmonary evaluation for restrictive vs obstructive cause of respiratory failure 8. consider MRI L spine if not previously assessed- she does not remember if she has ever had a lumbar MRI 9. no obvious progressive weakness per patient or fatigability will await the acetylcholine AB test -negative 10. will need an EMG as an outpatient in 3-4 weeks after discharge from hospital Dr Maria Antonia Shaw schedule I have seen and discussed above patient with Dr Maria Antonia Shaw, neurology Pt seen, doubt MG or myopathy. Rec MRI L spine, ncv emg as outpt, LLE and LUE, will sign off, ANGEL Shaw MD
[2017-10-06] MEDS ORDERED: COUGH DROP (SUGAR FREE) LOZ 24 LOZ/1 BOX ONE (22:59)
[2017-10-06] MEDS ORDERED: NURSING DECISION MEDICATION ORDER SCH (23:00)
[2017-10-06] MEDS ORDERED: COUGH DROP (SUGAR FREE) LOZ 24 LOZ/1 BOX PO PRN (23:15)
[2017-10-07] VITALS (9 sets, daily range): BP systolic 130–155; BP diastolic 71–72; PULSE 57–61; TEMP 36.6–36.8; O2SAT 92–98
[2017-10-07] MEDS: IPRATROPIUM BROMIDE NEB SOLN 0.02% 2.5 ML VIAL INH SCH ×6 (03:12→23:30)
[2017-10-07] MEDS: LEVALBUTEROL 1.25MG/0.5ML NEB INH SCH ×6 (03:12→23:30)
[2017-10-07 06:00] LABS: BASO % 0.1 %; BASO ABS # 0.01 K/uL (0-0.2); COMPLETE YES; EOS % 0.8 %; HEMATOCRIT 38.3 % (37-47); IG% 0.4 %; LYMPH % 28.9 %; LYMPH ABS # 3.22 K/uL (1.2-3.4); MEAN CELL VOLUME 96.5 fL (80-100); MEAN CORPUSCULAR HEMOGLOBIN 31.2 pg (25-34); MEAN CORPUSCULAR HGB CONC 32.4 g/dl (32-36); MEAN PLATELET VOLUME 8.7 fL (7.4-10.4); MONO % 7.1 %; NEUT % 62.7 %; PLATELET COUNT 233 K/uL (130-400); RED BLOOD COUNT 3.97 M/uL (4.2-5.4); WHITE BLOOD COUNT 11.14 K/uL (4.8-10.8)
[2017-10-07] MEDS: LEVOTHYROXINE 200 MCG TAB PO SCH (06:19)
[2017-10-07] MEDS: HEPARIN SOD 5000 UNIT/0.5 ML CARP SQ SCH ×3 (06:25→21:25)
[2017-10-07 06:32] LABS: BUN/CREATININE RATIO 54.1 (10-20); CALCIUM 9.3 mg/dl (8.5-10.1); CREATININE 0.39 mg/dl (0.60-1.20); MAGNESIUM 1.8 mg/dl (1.8-2.4); POTASSIUM 3.9 mmol/L (3.5-5.1)
[2017-10-07 06:35] LABS: PHOSPHORUS 3.5 mg/dl (2.5-4.9)
[2017-10-07] MEDS: ASPIRIN 81 MG ECTAB PO SCH (08:17)
[2017-10-07] MEDS: PANTOprazole SOD 40 MG TAB PO SCH (08:17)
[2017-10-07] MEDS: CLOPIDOGREL BISULFATE 75 MG TAB PO SCH (08:17)
[2017-10-07] MEDS: CITALOPRAM 20 MG TAB PO SCH (08:17)
[2017-10-07] MEDS: INSULIN ASPART 100 UNITS/ML 3 ML PEN SC SCH ×4 (08:23→21:00)
[2017-10-07] MEDS: INSULIN GLARGINE SOLOSTAR 100 UNITS/ML 3 ML PEN SC SCH (08:24)
--- NOTE | 2017-10-07 13:25 | Progress Note ---
Internal Med Progress Note Date of Service: Oct 07, 2017. Provider Documentation: SUBJECTIVE: Seen and examined at bedside States feeling well History not reliable as patient forgetful cough improving Denies chest pain, SOB, dizziness, nausea, dysuria No other complaints OBJECTIVE: Vital Signs-as noted below Physical Exam: General Appearance:Obese, no apparent distress Head: normocephalic, Atraumatic Eyes: normal inspection, EOMI, PERRL Neck: supple, Trachea midline Respiratory/Chest: coarse breath sounds Cardiovascular: S1, S2, No murmur Abdomen/GI:Soft, Non tender, Bowel sounds present Extremities/Musculoskelatal:normal inspection, Trace b/l edema Neurologic/Psych:B/L LE weakness L>R Skin: normal color, warm Lab data as noted below. 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 Acute on chronic hypoxic and hypercapnic respiratory failure: Likely multifactorial: 2/2 COPD exacerbation, PNA S/P Extubation: 10/05/17 Chronic Oxygen dependency (On 4L NC as per patient) CTA:No PE, small b/l pleural effusions, pulm edema, b/l lower lobe consolidation , mild mediastinal lymphadenopathy Levaquin discontinued Blood culture: 1/2: Coag negative staph: likely contamination sputum culture: Staph aureus likely colonization IV steroids>>>continue Prednisone taper, duonebs S/P IV Lasix >>Continue PO lasix Continue BiPAP QHS Encephalopathy: Likely metabolic UTI Likely 2/2 hypercarbia; UTI Ammonia: normal Urine Cx:Proteus and E.coli Received Levaquin, antibiotics discontinued as asymptomatic, afebrile, no leukocytosis Denies urinary symptoms Positive Wound Cultures: Unclear significance Will consult ID for Input B/L LE weakness:L>R TSH: normal Acetylcholine receptor ab:Negative MRI L spine: pending May need NCV-EMG as outpatient Appreciate Neurology Input PT/OT Slightly improved weakness of LLE Hypomagnesemia/Hypophosphatemia: Resolved Monitor Sinus Bradycardia: BB on hold monitor Chest pain: Per initial interview, CP is central, non-radiating H/o STEMI (s/p stent) R/o ACS; risk factors: DM II, CAD, HLD, current smoker Troponin: negative EKG without ischemic changes CXR with pulmonary edema, possible bibasilar PNA ECHO:No segmental left ventricular wall motion abnormalities DM II: Hold home agents Glycemic consult placed in setting of IV steroids ISS, Accu checks Hgb a1c:6.5 Hyponatremia: Chronic Improved Monitor Sodium levels HLD: Continue statin CAD (s/p stent): Continue aspirin, plavix HTN: metoprolol on hold secondary to relative bradycardia Cirrhosis 2/2 AIH: Stable DVT Px: Heparin SQ Code status: FULL PCP: Heartvignesh, Pilkev Disposition: Presented from [facility] PROCEDURES: ECHO: No change compared to previous study of 06/22/17. * Normal LV chamber size with mild concentric LVH. * Normal LV systolic function, EF 60-65%. * No segmental left ventricular wall motion abnormalities are noted. * Grade II diastolic dysfunction. * Poorly visualized valvular structures without significant stenosis or regurgitation by Doppler. Vital Signs: Date Time Temp Pulse Resp B/P (MAP) Pulse Ox O2 Delivery O2 Flow Rate FiO2 10/07/17 11:07 57 18 94 Nasal Cannula 4.0 10/07/17 09:30 Nasal Cannula 2.0 10/07/17 07:53 36.8 60 18 130/72 (91) 98 Nasal Cannula 3.0 10/07/17 07:25 60 18 92 Nasal Cannula 3.0 10/07/17 03:13 61 92 30 10/07/17 03:12 61 30 92 BiPAP/CPAP 30 10/07/17 00:00 Nasal Cannula 2.0 10/06/17 23:41 37.0 64 20 131/71 (91) BiPAP 10/06/17 23:19 63 93 30 10/06/17 23:18 63 30 93 BiPAP/CPAP 30 10/06/17 22:21 66 94 30 10/06/17 19:20 71 22 95 Nasal Cannula 3.0 10/06/17 16:00 Nasal Cannula 2.0 10/06/17 14:45 36.8 68 22 173/72 (105) 91 Nasal Cannula 3.0 10/06/17 14:16 68 22 93 Nasal Cannula 3.0 Lab Results: Results Past 24 Hours Test 10/06/17 16:51 10/06/17 19:44 10/07/17 05:33 10/07/17 07:46 Range/Units Bedside Glucose 146 171 95 70-90 mg/dl White Blood Count 11.14 4.8-10.8 K/uL Red Blood Count 3.97 4.2-5.4 M/uL Hemoglobin 12.4 12.0-16.0 g/dL Hematocrit 38.3 37-47 % Mean Corpuscular Volume 96.5 80-100 fL Mean Corpuscular Hemoglobin 31.2 25-34 pg Mean Corpuscular Hemoglobin Concent 32.4 32-36 g/dl Platelet Count 233 130-400 K/uL Mean Platelet Volume 8.7 7.4-10.4 fL Neutrophils (%) (Auto) 62.7 % Lymphocytes (%) (Auto) 28.9 % Monocytes (%) (Auto) 7.1 % Eosinophils (%) (Auto) 0.8 % Basophils (%) (Auto) 0.1 % Neutrophils # (Auto) 6.99 1.4-6.5 K/uL Lymphocytes # (Auto) 3.22 1.2-3.4 K/uL Monocytes # (Auto) 0.79 0.11-0.59 K/uL Eosinophils # (Auto) 0.09 0-0.5 K/uL Basophils # (Auto) 0.01 0-0.2 K/uL RDW Standard Deviation 48.9 36.4-46.3 fL RDW Coefficient of Variation 13.9 11.5-14.5 % Immature Granulocyte % (Auto) 0.4 % Immature Granulocyte # (Auto) 0.04 0.00-0.02 K/uL Sodium Level 135 136-145 mmol/L Potassium Level 3.9 3.5-5.1 mmol/L Chloride Level 95 98-107 mmol/L Carbon Dioxide Level 33 21-32 mmol/L Anion Gap 6.0 3-11 mmol/L Blood Urea Nitrogen 21 7-18 mg/dl Creatinine 0.39 0.60-1.20 mg/dl Est Creatinine Clear Calc Drug Dose 205.7 ml/min Estimated GFR () 135.1 Estimated GFR (Non- 116.6 BUN/Creatinine Ratio 54.1 10-20 Random Glucose 92 70-99 mg/dl Calcium Level 9.3 8.5-10.1 mg/dl Phosphorus Level 3.5 2.5-4.9 mg/dl Magnesium Level 1.8 1.8-2.4 mg/dl Total Bilirubin 0.4 0.2-1 mg/dl Direct Bilirubin 0.1 0-0.2 mg/dl Aspartate Amino Transf (AST/SGOT) 15 15-37 U/L Alanine Aminotransferase (ALT/SGPT) 34 12-78 U/L Alkaline Phosphatase 95 45-117 U/L Total Protein 6.6 6.4-8.2 gm/dl Albumin 2.9 3.4-5.0 gm/dl Test 10/07/17 11:45 Range/Units Bedside Glucose 90 70-90 mg/dl
--- NOTE | 2017-10-07 14:06 | DIAGNOSTIC IMAGING REPORT ---
ORBITS FOR MRI CLINICAL HISTORY: 56 years-old Female presenting with For MRI clear ence . TECHNIQUE: 3 views of the orbits were obtained. COMPARISON: None. FINDINGS: No radiopaque foreign body projects over the orbits. Bony orbits grossly intact. Paranasal sinuses grossly clear. Visualized portion of the calvarium intact. IMPRESSION: No intraorbital metallic foreign body to preclude MRI exam. Electronically signed by: Kodak Man M.D. 10/07/2017 2:05 PM Dictated Date/Time: 10/07/2017 2:04 PM
--- NOTE | 2017-10-07 14:08 | DIAGNOSTIC IMAGING REPORT ---
KUB CLINICAL HISTORY: 56 years-old Female presenting with For MRI clearance . TECHNIQUE: Single supine view of the abdomen was obtained. COMPARISON: 10/03/2017. FINDINGS: Image quality degraded by portable technique and motion artifact. No radiopaque foreign body to suggest a metallic fragment. Previously noted nasogastric tube is not apparent. Moderate stool burden. Nonobstructive bowel gas pattern. No evidence of free intraperitoneal gas, pneumatosis, or portal venous gas. No calcifications to suggest nephrolithiasis. Multiple pelvic phleboliths noted. Osseous structures normal. Apparent left basilar opacity. IMPRESSION: 1. No metallic foreign body to preclude MRI. 2. Apparent left basilar opacity. Electronically signed by: Kodak Man M.D. 10/07/2017 2:07 PM Dictated Date/Time: 10/07/2017 2:05 PM
--- NOTE | 2017-10-07 14:11 | DIAGNOSTIC IMAGING REPORT ---
CHEST ONE VIEW PORTABLE HISTORY: Short of breath. COMPARISON: Chest 10/05/2017. FINDINGS: The lines and tubes within removed. There is mild interstitial pulmonary edema. No pneumothorax. The heart remains stable in size. Patchy bibasilar densities persist. IMPRESSION: 1. No change in the mild pulmonary edema and patchy bibasilar densities. 2. The lines/tubes again removed. Electronically signed by: Eric Hopkins M.D. 10/07/2017 2:10 PM Dictated Date/Time: 10/07/2017 2:08 PM
--- NOTE | 2017-10-07 15:45 | Medical Consult ---
Consultation Date of Consultation: Oct 07, 2017. Attending Physician: Carmelo Grijalva MD Reason for Consultation: Positive wound cultures History of Present Illness 56-year-old female with history of diabetes mellitus, COPD, hypothyroidism, hyperlipidemia, who was admitted with respiratory failure with evidence of pneumonia on chest x-ray, treated with antibiotics with improvement, now with multiple positive cultures from sputum showing Staph aureus, and wound culture positive for Pseudomonas, Proteus, and Enterococcus. Patient has shown improvement and abdominal wounds, no fever, and no worsening leukocytosis. Has positive C difficile PCR and on oral vancomycin therapy. Past Medical/Surgical History Medical Problems: (1) Abnormal ECG Status: Acute (2) Abnormal results of liver function studies Status: Acute (3) Cellulitis Status: Acute (4) Chest pain Status: Acute (5) COPD (chronic obstructive pulmonary disease) Status: Acute (6) COPD (chronic obstructive pulmonary disease) Status: Acute (7) COPD exacerbation Status: Acute (8) Dizziness Status: Acute (9) Dizziness Status: Acute (10) Gangrene Status: Acute (11) Hypercapnemia Status: Acute (12) Hyperglycemia Status: Acute (13) Hyponatremia Status: Acute (14) Hypoxia Status: Acute (15) Morbid obesity Status: Acute (16) Open abdominal wall wound Status: Acute (17) Pneumonia Status: Acute (18) Precordial chest pain Status: Acute (19) Right foot infection Status: Acute (20) Substernal chest pain Status: Acute (21) Uncontrolled diabetes mellitus Status: Acute (22) Weakness Status: Acute (23) Yeast infection Status: Acute Medical Problems: (1) Asthma (2) Benign hypertension (3) Chronic obstructive lung disease (4) Cirrhosis of liver (5) Coronary atherosclerosis of [place] coronary vessel (6) DM type 2 (diabetes mellitus, type 2) (7) Hyperlipidemia (8) Hypothyroidism (9) Morbid obesity with BMI of 40.0-44.9, adult (10) Peripheral vascular disease (11) Respiratory failure, acizw-uh-hkbnzoh (12) Tobacco use disorder Surgical Problems: (1) History of hysterectomy (2) S/P cholecystectomy (3) S/P coronary artery stent placement (4) S/P tonsillectomy and adenoidectomy Family History FH: diabetes mellitus BROTHER Heart disease MOTHER BROTHER Lung disease FATHER (COPD) SISTER (COPD, asthma) Social History Smoking Status: Current Every Day Smoker Drug Use: none Marital Status: single Housing Status: lives with family Occupation Status: disabled Allergies Coded Allergies: Penicillins (Verified Allergy, Intermediate, RASH, 08/31/17) Current Inpatient Medications Current Inpatient Medications Medications (Trade) Dose Ordered Sig/Abdi Route Start Time Stop Time Status Last Admin Dose Admin Heparin Sodium (Porcine) (Heparin Sq 5000 Unit/0.5ml) 5,000 unit Q8 SQ 10/03/17 22:00 11/02/17 21:59 10/07/17 06:25 5,000 UNIT Acetaminophen (Tylenol Tab) 650 mg Q4H PRN PO 10/03/17 14:15 11/02/17 14:14 10/05/17 14:48 650 MG Glucose (Glucose 40% Gel) 15-30 GRAMS 15 GRAMS... UD PRN PO 10/03/17 15:15 11/02/17 15:14 Glucose (Glucose Chew Tab) 4-8 Tablets 4 Tabl... UD PRN PO 10/03/17 15:15 11/02/17 15:14 Dextrose (Dextrose 50% 50ML Syringe) 25-50ML OF 50% DW IV FOR... UD PRN IV 10/03/17 15:15 11/02/17 15:14 Glucagon (Glucagon Inj) 1 mg UD PRN SQ 10/03/17 15:15 11/02/17 15:14 Citalopram Hydrobromide (celeXA TAB) 20 mg QAM PO 10/04/17 09:00 11/03/17 08:59 10/07/17 08:17 20 MG Clopidogrel Bisulfate (plAVix TAB) 75 mg DAILY PO 10/04/17 09:00 11/03/17 08:59 10/07/17 08:17 75 MG Levothyroxine Sodium (Synthroid Tab) 200 mcg DAILYBB PO 10/04/17 06:00 11/03/17 05:59 10/07/17 06:19 200 MCG Insulin Aspart (novoLOG ASPART) SLIDING SCALE G... ACHS SC 10/05/17 16:30 11/04/17 16:29 10/07/17 12:50 13 UNITS Ipratropium [place] (Atrovent 0.02% 0.5MG/2.5ML Neb) 0.5 mg Q4R INH 10/05/17 12:00 11/04/17 11:59 10/07/17 11:05 0.5 MG Levalbuterol (Xopenex 1.25MG/ 0.5ML Neb) 1.25 mg Q4R INH 10/05/17 12:00 11/04/17 11:59 10/07/17 11:05 1.25 MG Ipratropium [place] (Atrovent 0.02% 0.5MG/2.5ML Neb) 0.5 mg Q2H PRN INH 10/05/17 10:30 11/04/17 10:29 Levalbuterol (Xopenex 1.25MG/ 0.5ML Neb) 1.25 mg Q2H PRN INH 10/05/17 10:30 11/04/17 10:29 Prednisone (PredniSONE TAB) 20 mg DAILY PO 10/07/17 08:00 10/08/17 08:01 10/07/17 08:18 20 MG Pantoprazole Sodium (Protonix Tab) 40 mg DAILY PO 10/07/17 08:00 11/06/17 07:59 10/07/17 08:17 40 MG Aspirin (Ecotrin Tab) 81 mg DAILY PO 10/07/17 08:00 11/06/17 07:59 10/07/17 08:17 81 MG Insulin Glargine (Lantus Solostar Pen) 55 units QAM SC 10/07/17 08:00 11/06/17 07:59 10/07/17 08:24 55 UNITS Menthol (Nice Jonnathan) 1 jonnathan PRN PRN PO 10/06/17 23:15 11/05/17 23:14 Furosemide (Lasix Tab) 20 mg Q2D PO 10/07/17 13:30 11/06/17 13:29 Review of Systems Constitutional: + weakness, + fatigue, No fever Eyes: No problem reported ENT: No problem reported Respiratory: + cough, + shortness of breath Cardiovascular: No problem reported Abdomen: No problem reported Musculoskeletal: No problem reported Genitourinary - Female: No problem reported Neurologic: No problem reported Psychiatric: No problem reported Endocrine: No problem reported Hematologic / Lymphatic: No problem reported Integumentary: No problem reported Allergic / Immunologic: No problem reported Physical Exam Date Time Temp Pulse Resp B/P (MAP) Pulse Ox O2 Delivery O2 Flow Rate FiO2 10/07/17 11:07 57 18 94 Nasal Cannula 4.0 10/07/17 09:30 Nasal Cannula 2.0 10/07/17 07:53 36.8 60 18 130/72 (91) 98 Nasal Cannula 3.0 10/07/17 07:25 60 18 92 Nasal Cannula 3.0 10/07/17 03:13 61 92 30 10/07/17 03:12 61 30 92 BiPAP/CPAP 30 10/07/17 00:00 Nasal Cannula 2.0 10/06/17 23:41 37.0 64 20 131/71 (91) BiPAP 10/06/17 23:19 63 93 30 10/06/17 23:18 63 30 93 BiPAP/CPAP 30 10/06/17 22:21 66 94 30 10/06/17 19:20 71 22 95 Nasal Cannula 3.0 10/06/17 16:00 Nasal Cannula 2.0 General Appearance: WD/WN, no apparent distress, + obese Head: normocephalic, atraumatic Eyes: normal inspection, EOMI, sclerae normal ENT: normal ENT inspection, hearing grossly normal, pharynx normal Neck: supple, no adenopathy, thyroid normal, trachea midline Respiratory/Chest: chest non-tender, lungs clear, normal breath sounds, no respiratory distress Cardiovascular: regular rate, rhythm, no gallop, no murmur Abdomen/GI: normal bowel sounds, non tender, soft, no organomegaly Back: normal inspection, no CVA tenderness Extremities/Musculoskelatal: no calf tenderness, non-tender Neurologic/Psych: alert, oriented x 3 Skin: normal color, warm/dry, no rash Lymphatic: no adenopathy Laboratory Results RUN DATE: 10/07/17 [facility] PAGE 1 RUN TIME: 810 Specimen Inquiry PATIENT: JENNIFER LEVIN LOC: Gerald U # : [id number] AGE/SX: 56/F ROOM: [facility] REG : 10/03/[address]: Carmelo Grijalva MD : 1960 BED: 1 DIS : STATUS: ADM IN TLOC: SPEC #: [id number] LUIS: 10/03/17 STATUS: COMP REQ #: [id number] RECD: 10/03/[address]: Angela Aguirre M.D. SOURCE: SKIN ENTR: 10/03/[address]: Sunni Bryson M.D. SPDESC: Kodak Olmedo M.D. [facility] ORDERED: SURF [facility] COMMENTS: Has Specimen Been Obtained/Collected? Y Procedure Result Verified Site GRAM STAIN Final 10/04/17-799 RESULT NO WBCs SEEN FEW GRAM POSITIVE COCCI FEW GRAM NEGATIVE BACILLI FEW GRAM POSITIVE BACILLI SURFACE WOUND CULTURE Final 10/07/17-810 Organism 1 PROTEUS MIRABILIS QUANITY FEW SENS SENSITIVITY TO FOLLOW +MIXWOUND PLUS LOW COUNTS OF PROBABLE SKIN VERENICE Organism 2 ENTEROCOCCUS FAECALIS QUANITY MODERATE SENS SENSITIVITY TO FOLLOW Organism 3 PSEUDOMONAS AERUGINOSA QUANITY FEW SENS SENSITIVITY TO FOLLOW CONTINUED ON NEXT PAGE RUN DATE: 10/07/17 [facility] PAGE 2 RUN TIME: 810 Specimen Inquiry SPEC: [id number] PATIENT: OLLIEJENNIFER A [id number] ( Continued) Procedure Result Verified Site SURFACE WOUND CULTURE Final (continued) 10/07/17 P. MIRABIL E FAECALIS PSEUD AERG M.I.C. RX M.I.C. RX M.I.C. RX --------- ------ --------- ------ --------- ------ TRIMET/SULFA > R AMPICILLIN <=8 S <=2 S AMPICILLIN/SUL <=8/4 S CEFAZOLIN <=8 S CEFOXITIN <=8 S CEFOTAXIME <=2 S CEFTAZIDIME 4 S CEFTRIAXONE <=1 S CEFEPIME <=4 S 8 S CEFUROXIME <=4 S IMIPENEM 4 I GENT SYNERGY >500 R AZTREONAM 8 S VANCOMYCIN 2 S PENICILLIN 8 S GENTAMICIN <=4 S <=4 S TOBRAMYCIN <=4 S <=4 S AMIKACIN <=16 S <=16 S CIPROFLOXACIN >2 R <=1 S LEVOFLOXACIN >4 R <=2 S ERTAPENEM <=1 S DAPTOMYCIN <=0.5 S PIP/TAZO <=16 S <=16 S STREP SYNERGY <=1000 S ENTEROCOCCUS FAECALIS: POSITIVE COMBO 33 Streptomycin Synergy Screen S Gentamicin Synergy Screen R 1. PROTEUS MIRABILIS Target Route Dose RX AB Cost M.I.C. IQ ------ ----- ------ -- ------ -------- - ------ TRIMET/SULFA R > AMPICILLIN S <=8 AMPICILLIN/SUL S <=8/4 CEFAZOLIN S <=8 CEFOXITIN S <=8 CEFOTAXIME S <=2 CEFTRIAXONE S <=1 CEFEPIME S <=4 CEFUROXIME S <=4 GENTAMICIN S <=4 TOBRAMYCIN S <=4 AMIKACIN S <=16 CIPROFLOXACIN R >2 LEVOFLOXACIN R >4 CONTINUED ON NEXT PAGE RUN DATE: 10/07/17 [facility] PAGE 3 RUN TIME: 810 Specimen Inquiry SPEC: [id number] PATIENT: JENNIFER LEVIN [id number] ( Continued) Procedure Result Verified Site SURFACE WOUND CULTURE Final (continued) 10/07/17 1. PROTEUS MIRABILIS (continued) Target Route Dose RX AB Cost M.I.C. IQ ------ ----- ------ -- ------ -------- - ------ ERTAPENEM S <=1 PIP/TAZO S <=16 2. ENTEROCOCCUS FAECALIS Target Route Dose RX AB Cost M.I.C. IQ ------ ----- ------ -- ------ -------- - ------ AMPICILLIN S <=2 GENT SYNERGY R >500 VANCOMYCIN S 2 PENICILLIN S 8 DAPTOMYCIN S <=0.5 STREP SYNERGY S <=1000 Streptomycin Synergy Screen S Gentamicin Synergy Screen R 3. PSEUDOMONAS AERUGINOSA Target Route Dose RX AB Cost M.I.C. IQ ------ ----- ------ -- ------ -------- - ------ CEFTAZIDIME S 4 CEFEPIME S 8 IMIPENEM I 4 AZTREONAM S 8 GENTAMICIN S <=4 TOBRAMYCIN S <=4 AMIKACIN S <=16 CIPROFLOXACIN S <=1 LEVOFLOXACIN S <=2 PIP/TAZO S <=16 S = SENSITIVE I = INTERMEDIATE R = RESISTANT END OF REPORT Last 24 Hours Test 10/06/17 16:51 10/06/17 19:44 10/07/17 05:33 10/07/17 07:46 Bedside Glucose 146 mg/dl 171 mg/dl 95 mg/dl White Blood Count 11.14 K/uL Red Blood Count 3.97 M/uL Hemoglobin 12.4 g/dL Hematocrit 38.3 % Mean Corpuscular Volume 96.5 fL Mean Corpuscular Hemoglobin 31.2 pg Mean Corpuscular Hemoglobin Concent 32.4 g/dl Platelet Count 233 K/uL Mean Platelet Volume 8.7 fL Neutrophils (%) (Auto) 62.7 % Lymphocytes (%) (Auto) 28.9 % Monocytes (%) (Auto) 7.1 % Eosinophils (%) (Auto) 0.8 % Basophils (%) (Auto) 0.1 % Neutrophils # (Auto) 6.99 K/uL Lymphocytes # (Auto) 3.22 K/uL Monocytes # (Auto) 0.79 K/uL Eosinophils # (Auto) 0.09 K/uL Basophils # (Auto) 0.01 K/uL RDW Standard Deviation 48.9 fL RDW Coefficient of Variation 13.9 % Immature Granulocyte % (Auto) 0.4 % Immature Granulocyte # (Auto) 0.04 K/uL Sodium Level 135 mmol/L Potassium Level 3.9 mmol/L Chloride Level 95 mmol/L Carbon Dioxide Level 33 mmol/L Anion Gap 6.0 mmol/L Blood Urea Nitrogen 21 mg/dl Creatinine 0.39 mg/dl Est Creatinine Clear Calc Drug Dose 205.7 ml/min Estimated GFR () 135.1 Estimated GFR (Non- 116.6 BUN/Creatinine Ratio 54.1 Random Glucose 92 mg/dl Calcium Level 9.3 mg/dl Phosphorus Level 3.5 mg/dl Magnesium Level 1.8 mg/dl Total Bilirubin 0.4 mg/dl Direct Bilirubin 0.1 mg/dl Aspartate Amino Transf (AST/SGOT) 15 U/L Alanine Aminotransferase (ALT/SGPT) 34 U/L Alkaline Phosphatase 95 U/L Total Protein 6.6 gm/dl Albumin 2.9 gm/dl Test 10/07/17 11:45 Bedside Glucose 90 mg/dl Patient Name: JENNIFER LEVIN Unit Number: [id number] Dictated: 10/07/171407 Transcribed: 10/07/171407 [facility] Printed Date/Time: [~ rep prt dt]/[~ rep prt tm] [~ rep ct labl] - [~ rep ct ivnm] [facility] [place] [address] Dictated: 10/07/171407 Transcribed: 10/07/171407 [place] Printed Date/Time: [~ rep prt dt]/[~ rep prt tm] [~ rep ct labl] - [~ rep ct ivnm] CHEST ONE VIEW PORTABLE HISTORY: Short of breath. COMPARISON: Chest 10/05/2017. FINDINGS: The lines and tubes within removed. There is mild interstitial pulmonary edema. No pneumothorax. The heart remains stable in size. Patchy bibasilar densities persist. IMPRESSION: 1. No change in the mild pulmonary edema and patchy bibasilar densities. 2. The lines/tubes again removed. Electronically signed by: Eric Hopkins M.D. 10/07/2017 2:10 PM Dictated Date/Time: 10/07/2017 2:08 PM The status of this report is Signed. Draft = Not yet reviewed or approved by Radiologist. Signed = Reviewed and approved by Radiologist. <AttendingPhy>Carmelo Grijalva MD</AttendingPhy> <FamilyPhy>Heartcarlos albertovignesh [place]</FamilyPhy> <PrimaryPhy>HeartGuanako brooks</PrimaryPhy> <UnitNumber> [id number]</UnitNumber> <VisitNumber>[id number]</VisitNumber> <PatientName> JENNIFER LEVIN</PatientName> <DateOfBirth>1960</DateOfBirth> <Location> C.4E</Location> <ServiceDate>10/03/17</ServiceDate> <MNE>ESINDI</MNE> < OrderingPhy>Carmelo Grijalva MD</OrderingPhy> <OrderingPhyMNE>f rep ord dr mne< /OrderingPhyMNE> <DictatingPhyMNE>f rep dict dr palm</DictatingPhyMNE> <CCListMNE >f rep ct mne</CCListMNE> <AdmittingPhyMNE>f pt admit dr palm</AdmittingPhyMNE> < AttendingPhyMNE>f pt attend dr palm</AttendingPhyMNE> <ConsultingPhyMNE>f pt consult dr palm</ConsultingPhyMNE> <FamilyPhyMNE>f pt fam dr palm</FamilyPhyMNE> <OtherPhyMNE>f pt other dr palm</OtherPhyMNE> < PrimaryPhyMNE>f pt prim care dr palm</PrimaryPhyMNE> <ReferringPhyMNE>f pt referring dr palm</ReferringPhyMNE> Assessment & Plan 56-year-old female admitted with respiratory failure and encephalopathy, treated for pneumonia and urinary tract infection with Levaquin, now off all antibiotics, who has been afebrile with only mild leukocytosis (cc on prednisone ) and with no obvious active infection at present. Positive wound cultures for Pseudomonas, Proteus, and MRSA. Suspect these represent colonization only. Would hold antibiotics for now, await MRI findings, and only instituted antibiotics if develops more signs and symptoms of active infection. Will follow.
--- NOTE | 2017-10-07 15:53 | DIAGNOSTIC IMAGING REPORT ---
MRI OF THE LUMBAR SPINE WITHOUT IV CONTRAST CLINICAL HISTORY: Left lower extremity weakness. COMPARISON STUDY: Abdominal CT dated 06/20/2017. TECHNIQUE: MRI of the lumbar spine is performed utilizing various T1 and T2-weighted sequences in the axial and sagittal planes. IV contrast was not administered for this examination. FINDINGS: Lumbar spine: Vertebral body height and alignment are maintained throughout the lumbar spine. The transverse and spinous processes appear intact. There is no evidence of spondylolysis. A small hemangioma is incidentally noted in the body of L4. Mild chronic degenerative endplate change is suggested at T12-L1. No destructive osseous lesion is seen. Intervertebral discs: Mild degenerative disc desiccation is noted throughout the lumbar spine. No significant loss of height is seen. Spinal cord: The partially imaged spinal cord is normal in morphology and signal intensity. The conus medullaris terminates at the T12-L1 interspace. T11-T12: There is a disc herniation with annular fissure, only visualized on the sagittal series. This causes at least moderate central canal stenosis with a minimum AP diameter of 5.5 mm. T12-L1: Normal as visualized on the sagittal series. L1-L2: Unremarkable. L2-L3: Unremarkable. L3-L4: There is minimal disc bulge. Bilateral subarticular stenosis is observed, and there may be impingement on the exiting bilateral L3 nerve roots. The central canal is clear. Facet arthropathy causes minimal left-sided neural foraminal stenosis. L4-L5: There is minimal posterior disc bulge. This causes left-sided subarticular stenosis. There may be impingement on the exiting left L4 nerve root. No significant central canal stenosis is seen. Facet arthropathy causes mild left neural foraminal stenosis. L5-S1: Facet arthropathy is of no confluence. The central canal and neural foramina are patent. Sacrum: The visualized sacrum is normal in morphology and signal intensity. Soft tissues: There is fatty atrophy of the paraspinous musculature. The retroperitoneal structures are grossly unremarkable but incompletely evaluated. IMPRESSION: 1. There is a disc herniation at T11-T12, only seen on the sagittal sequences. This causes at least moderate central canal stenosis. 2. Mild lumbosacral spondylosis as detailed above. There is no large disc herniation or significant central canal compromise in the lumbar region. See discussion for detailed [id number] analysis. 3. No destructive bony lesion is seen. Dictated: 10/07/2017 3:27 PM Transcribed: 10/07/2017 3:53 PM [email or web address] Electronically signed by: Addison Connolly M.D. 10/07/2017 3:58 PM Dictated Date/Time: 10/07/2017 3:27 PM
[2017-10-07] MEDS: FUROSEMIDE 20 MG TAB PO SCH (17:37)
[2017-10-07] MEDS ORDERED: NURSING VERBAL MED ORDER ONE (18:00)
[2017-10-07] MEDS ORDERED: MICONAZOLE NITRATE POWDER 43 GM EXT PRN (18:15)
[2017-10-08] VITALS (12 sets, daily range): BP systolic 96–123; BP diastolic 58–69; PULSE 56–69; TEMP 36.5–37.1; O2SAT 91–95
[2017-10-08] MEDS: IPRATROPIUM BROMIDE NEB SOLN 0.02% 2.5 ML VIAL INH SCH ×6 (01:57→23:15)
[2017-10-08] MEDS: LEVALBUTEROL 1.25MG/0.5ML NEB INH SCH ×6 (01:57→23:15)
[2017-10-08 05:57] LABS: BASO % 0.1 %; BASO ABS # 0.01 K/uL (0-0.2); COMPLETE YES; EOS % 1.3 %; HEMATOCRIT 35.7 % (37-47); IG% 0.7 %; LYMPH % 29.5 %; LYMPH ABS # 3.12 K/uL (1.2-3.4); MEAN CELL VOLUME 95.7 fL (80-100); MEAN CORPUSCULAR HEMOGLOBIN 32.4 pg (25-34); MEAN CORPUSCULAR HGB CONC 33.9 g/dl (32-36); MEAN PLATELET VOLUME 8.6 fL (7.4-10.4); NEUT % 63.4 %; PLATELET COUNT 201 K/uL (130-400); RED BLOOD COUNT 3.73 M/uL (4.2-5.4); WHITE BLOOD COUNT 10.59 K/uL (4.8-10.8)
[2017-10-08] MEDS: LEVOTHYROXINE 200 MCG TAB PO SCH (06:16)
[2017-10-08] MEDS: HEPARIN SOD 5000 UNIT/0.5 ML CARP SQ SCH ×3 (06:17→21:07)
[2017-10-08 06:34] LABS: BUN/CREATININE RATIO 44.7 (10-20); CREATININE 0.37 mg/dl (0.60-1.20); MAGNESIUM 1.9 mg/dl (1.8-2.4)
[2017-10-08] MEDS: PANTOprazole SOD 40 MG TAB PO SCH (08:30)
[2017-10-08] MEDS: CLOPIDOGREL BISULFATE 75 MG TAB PO SCH (08:30)
[2017-10-08] MEDS: CITALOPRAM 20 MG TAB PO SCH (08:30)
[2017-10-08] MEDS: ASPIRIN 81 MG ECTAB PO SCH (08:30)
[2017-10-08] MEDS: INSULIN ASPART 100 UNITS/ML 3 ML PEN SC SCH ×4 (08:37→21:00)
[2017-10-08] MEDS: INSULIN GLARGINE SOLOSTAR 100 UNITS/ML 3 ML PEN SC SCH (08:38)
[2017-10-08] MEDS ORDERED: LORAZEPAM 2 MG/ML 1 ML VIAL IV SCH (09:15)
--- NOTE | 2017-10-08 11:15 | DIAGNOSTIC IMAGING REPORT ---
THORACIC SPINE WITHOUT CLINICAL HISTORY: 56 years-old Female presenting with lower extremity weakness. TECHNIQUE: Multisequence, multiplanar MR imaging of the thoracic spine was performed without the use of intravenous contrast. IV contrast: None. COMPARISON: CT chest from 06/21/2017. FINDINGS: Localizer images: Unremarkable. Scoliotic curvature of the thoracic spine. Normal thoracic kyphosis. Vertebral bodies maintain normal height, alignment, and signal intensity. Mild disc desiccation noted in the mid thoracic spine, where there are disc osteophyte complexes at T7-8 and T8-9. At T8-9, left eccentric effacement of the ventral thecal sac as well as effacement of the posterior aspect of the right lateral recess secondary to facet arthropathy noted. Disc osteophyte compresses also noted in the lower thoracic spine at T11-12 and T12-L1. At T11-12, similar left eccentric effacement of the anterior thecal sac and effacement of the posterior aspect of the right lateral recess secondary to facet arthropathy. Mild bilateral neural foraminal narrowing suggested at T11-12. Disc bulge at T12-L1 mildly effaces the ventral thecal sac. Thoracic spinal cord maintains normal morphology and signal intensity. No paraspinal soft tissue inflammatory change. IMPRESSION: Scoliosis with mild multilevel degenerative changes. No evidence of spinal cord impingement, although mild spinal stenosis results at T8-9, T11-12, and T12-L1. Mild bilateral neural foraminal narrowing at T11-12. Electronically signed by: Kodak Man M.D. 10/08/2017 11:14 AM Dictated Date/Time: 10/08/2017 11:03 AM
--- NOTE | 2017-10-08 16:17 | Progress Note ---
Internal Med Progress Note Date of Service: Oct 08, 2017. Provider Documentation: SUBJECTIVE: Seen and examined at bedside Reports abdominal pain and diarrhea Denies chest pain, SOB, nausea, dizziness History not reliable as patient forgetful No other complaints OBJECTIVE: Vital Signs-as noted below Physical Exam: General Appearance:Obese, no apparent distress Head: normocephalic, Atraumatic Eyes: normal inspection, EOMI, PERRL Neck: supple, Trachea midline Respiratory/Chest: coarse breath sounds Cardiovascular: S1, S2, No murmur Abdomen/GI:Soft, Non tender, Bowel sounds present Extremities/Musculoskelatal:normal inspection, Trace b/l edema Neurologic/Psych:B/L LE weakness L>R Skin: normal color, warm Lab data as noted below. 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 Acute on chronic hypoxic and hypercapnic respiratory failure: Likely multifactorial: 2/2 COPD exacerbation, PNA S/P Extubation: 10/05/17 Chronic Oxygen dependency (On 4L NC as per patient) CTA:No PE, small b/l pleural effusions, pulm edema, b/l lower lobe consolidation , mild mediastinal lymphadenopathy Levaquin discontinued Blood culture: 1/2: Coag negative staph: likely contamination sputum culture: Staph aureus likely colonization IV steroids>>>continue Prednisone taper, duonebs S/P IV Lasix >>Continue PO lasix Continue BiPAP QHS C.diff colitis: Started on PO Vancomycin # 1 Reports abd pain, diarrhea Monitor electrolytes Encephalopathy: Likely metabolic UTI Likely 2/2 hypercarbia; UTI Ammonia: normal Urine Cx:Proteus and E.coli: Colonization Received Levaquin, antibiotics discontinued as asymptomatic, afebrile, no leukocytosis Denies urinary symptoms Positive Wound Cultures:colonization Appreciate ID Input B/L LE weakness:L>R TSH: normal Acetylcholine receptor ab:Negative MRI L spine: disc herniation at T11-T12, moderate central canal stenosis. May need NCV-EMG as outpatient Appreciate Neurology Input PT/OT Orthopedics consulted Hypomagnesemia/Hypophosphatemia: Resolved Monitor Sinus Bradycardia: BB on hold monitor Chest pain: Per initial interview, CP is central, non-radiating H/o STEMI (s/p stent) R/o ACS; risk factors: DM II, CAD, HLD, current smoker Troponin: negative EKG without ischemic changes CXR with pulmonary edema, possible bibasilar PNA ECHO:No segmental left ventricular wall motion abnormalities DM II: Hold home agents Glycemic consult placed in setting of IV steroids ISS, Accu checks Hgb a1c:6.5 Hyponatremia: Chronic Improved Monitor Sodium levels HLD: Continue statin CAD (s/p stent): Continue aspirin, plavix HTN: metoprolol on hold secondary to relative bradycardia Cirrhosis 2/2 AIH: Stable DVT Px: Heparin SQ Code status: FULL PCP: Heartvignesh, Cara Disposition: Presented from [facility] PROCEDURES: ECHO: No change compared to previous study of 06/22/17. * Normal LV chamber size with mild concentric LVH. * Normal LV systolic function, EF 60-65%. * No segmental left ventricular wall motion abnormalities are noted. * Grade II diastolic dysfunction. * Poorly visualized valvular structures without significant stenosis or regurgitation by Doppler. Vital Signs: Date Time Temp Pulse Resp B/P (MAP) Pulse Ox O2 Delivery O2 Flow Rate FiO2 10/08/17 15:35 37.1 64 20 121/69 (86) 95 Nasal Cannula 4.0 10/08/17 15:30 Nasal Cannula 2.0 10/08/17 14:28 62 20 92 Nasal Cannula 4.0 10/08/17 11:22 58 20 91 Nasal Cannula 4.0 10/08/17 08:47 Nasal Cannula 2.0 10/08/17 07:37 36.5 63 20 96/58 (71) 95 Nasal Cannula 4.0 10/08/17 06:59 62 94 30 10/08/17 06:55 62 23 94 BiPAP/CPAP 30 10/08/17 01:58 60 94 30 10/08/17 01:57 64 27 95 BiPAP/CPAP 30 10/08/17 00:00 BiPAP 10/07/17 23:29 60 92 30 10/07/17 20:00 Nasal Cannula 2.0 10/07/17 19:31 59 18 95 Nasal Cannula 4.0 Lab Results: Results Past 24 Hours Test 10/07/17 16:52 10/07/17 20:19 10/08/17 05:33 10/08/17 07:23 Range/Units Bedside Glucose 120 106 107 70-90 mg/dl White Blood Count 10.59 4.8-10.8 K/uL Red Blood Count 3.73 4.2-5.4 M/uL Hemoglobin 12.1 12.0-16.0 g/dL Hematocrit 35.7 37-47 % Mean Corpuscular Volume 95.7 80-100 fL Mean Corpuscular Hemoglobin 32.4 25-34 pg Mean Corpuscular Hemoglobin Concent 33.9 32-36 g/dl Platelet Count 201 130-400 K/uL Mean Platelet Volume 8.6 7.4-10.4 fL Neutrophils (%) (Auto) 63.4 % Lymphocytes (%) (Auto) 29.5 % Monocytes (%) (Auto) 5.0 % Eosinophils (%) (Auto) 1.3 % Basophils (%) (Auto) 0.1 % Neutrophils # (Auto) 6.72 1.4-6.5 K/uL Lymphocytes # (Auto) 3.12 1.2-3.4 K/uL Monocytes # (Auto) 0.53 0.11-0.59 K/uL Eosinophils # (Auto) 0.14 0-0.5 K/uL Basophils # (Auto) 0.01 0-0.2 K/uL RDW Standard Deviation 48.4 36.4-46.3 fL RDW Coefficient of Variation 13.8 11.5-14.5 % Immature Granulocyte % (Auto) 0.7 % Immature Granulocyte # (Auto) 0.07 0.00-0.02 K/uL Sodium Level 133 136-145 mmol/L Potassium Level 4.0 3.5-5.1 mmol/L Chloride Level 93 98-107 mmol/L Carbon Dioxide Level 34 21-32 mmol/L Anion Gap 6.0 3-11 mmol/L Blood Urea Nitrogen 16 7-18 mg/dl Creatinine 0.37 0.60-1.20 mg/dl Est Creatinine Clear Calc Drug Dose 216.8 ml/min Estimated GFR () 137.5 Estimated GFR (Non- 118.6 BUN/Creatinine Ratio 44.7 10-20 Random Glucose 93 70-99 mg/dl Calcium Level 9.0 8.5-10.1 mg/dl Magnesium Level 1.9 1.8-2.4 mg/dl Test 10/08/17 11:58 Range/Units Bedside Glucose 140 70-90 mg/dl Microbiology Results 10/08/17 C.difficile Toxin B Gene (PCR), Received Pending
[2017-10-08] MEDS: RASPBERRY SYRUP 5 ML UDP PO SCH ×2 (17:22→21:09)
[2017-10-08] MEDS: VANCOMYCIN HCL 125 MG/2.5ML SOLN PO SCH ×2 (17:22→21:09)
[2017-10-09] VITALS (10 sets, daily range): BP systolic 96–122; BP diastolic 56–67; PULSE 54–64; TEMP 36.6–36.8; O2SAT 92–96
[2017-10-09] MEDS: LEVALBUTEROL 1.25MG/0.5ML NEB INH SCH ×6 (03:37→22:55)
[2017-10-09] MEDS: IPRATROPIUM BROMIDE NEB SOLN 0.02% 2.5 ML VIAL INH SCH ×6 (03:37→22:55)
[2017-10-09 05:48] LABS: BASO % 0.1 %; BASO ABS # 0.01 K/uL (0-0.2); COMPLETE YES; EOS % 1.7 %; HEMATOCRIT 38.8 % (37-47); LYMPH % 27.1 %; LYMPH ABS # 3.12 K/uL (1.2-3.4); MEAN CELL VOLUME 95.3 fL (80-100); MEAN CORPUSCULAR HEMOGLOBIN 31.7 pg (25-34); MEAN CORPUSCULAR HGB CONC 33.2 g/dl (32-36); MEAN PLATELET VOLUME 8.9 fL (7.4-10.4); NEUT % 65.1 %; PLATELET COUNT 217 K/uL (130-400); RED BLOOD COUNT 4.07 M/uL (4.2-5.4); WHITE BLOOD COUNT 11.52 K/uL (4.8-10.8)
[2017-10-09] MEDS: HEPARIN SOD 5000 UNIT/0.5 ML CARP SQ SCH ×3 (06:35→22:19)
[2017-10-09 06:55] LABS: BLOOD UREA NITROGEN 17 mg/dl (7-18); BUN/CREATININE RATIO 40.5 (10-20); CALCIUM 9.4 mg/dl (8.5-10.1); CARBON DIOXIDE 37 mmol/L (21-32); CHLORIDE 93 mmol/L (98-107); CREATININE 0.42 mg/dl (0.60-1.20); GLUCOSE 100 mg/dl (70-99); SODIUM 133 mmol/L (136-145)
[2017-10-09 07:59] LABS: POTASSIUM 4.2 mmol/L (3.5-5.1)
[2017-10-09] MEDS: PANTOprazole SOD 40 MG TAB PO SCH (08:21)
[2017-10-09] MEDS: LEVOTHYROXINE 200 MCG TAB PO SCH (08:21)
[2017-10-09] MEDS: ASPIRIN 81 MG ECTAB PO SCH (08:22)
[2017-10-09] MEDS: CITALOPRAM 20 MG TAB PO SCH (08:22)
[2017-10-09] MEDS: CLOPIDOGREL BISULFATE 75 MG TAB PO SCH (08:22)
[2017-10-09] MEDS: VANCOMYCIN HCL 125 MG/2.5ML SOLN PO SCH ×4 (08:22→22:09)
[2017-10-09] MEDS: RASPBERRY SYRUP 5 ML UDP PO SCH ×4 (08:22→22:09)
[2017-10-09] MEDS: INSULIN ASPART 100 UNITS/ML 3 ML PEN SC SCH ×4 (08:28→22:10)
[2017-10-09] MEDS: INSULIN GLARGINE SOLOSTAR 100 UNITS/ML 3 ML PEN SC SCH (08:29)
--- NOTE | 2017-10-09 09:35 | Orthopedic Consultation ---
Orthopedic Consultation Date of Consultation: Oct 09, 2017. Attending Physician: Carmelo Grijalva MD Reason for Consultation: Thoracic disc herniation History of Present Illness This is a 56-year-old female who is a poor historian. We were asked to see her in consultation due to abnormal lumbar MRI. She resides in a custodial. She is nonambulatory. She required is in a wheelchair and does require a Racheal lift for any Type of transfers. She reports she has lower back pain which is chronic. No new changes to this. She has weakness in both legs left is worse than right for the past three years. Also notes some paresthesias on the left leg which she reports she's had for about a year and a half. She denies any perineal numbness. Denies any recent issues with bowel.or bladder changes. Patient reports she's been nonambulatory for the past 3 years. She reports this happened after a fall. Past Medical/Surgical History Medical Problems: (1) Abnormal ECG Status: Acute (2) Abnormal results of liver function studies Status: Acute (3) Cellulitis Status: Acute (4) Chest pain Status: Acute (5) COPD (chronic obstructive pulmonary disease) Status: Acute (6) COPD (chronic obstructive pulmonary disease) Status: Acute (7) COPD exacerbation Status: Acute (8) Dizziness Status: Acute (9) Dizziness Status: Acute (10) Gangrene Status: Acute (11) Hypercapnemia Status: Acute (12) Hyperglycemia Status: Acute (13) Hyponatremia Status: Acute (14) Hypoxia Status: Acute (15) Morbid obesity Status: Acute (16) Open abdominal wall wound Status: Acute (17) Pneumonia Status: Acute (18) Precordial chest pain Status: Acute (19) Right foot infection Status: Acute (20) Substernal chest pain Status: Acute (21) Uncontrolled diabetes mellitus Status: Acute (22) Weakness Status: Acute (23) Yeast infection Status: Acute Family History FH: diabetes mellitus BROTHER Heart disease MOTHER BROTHER Lung disease FATHER (COPD) SISTER (COPD, asthma) Social History Smoking Status: Current Every Day Smoker Drug Use: none Marital Status: single Housing Status: lives with family Occupation Status: disabled Allergies Coded Allergies: Penicillins (Verified Allergy, Intermediate, RASH, 08/31/17) Home Medications Scheduled Acetaminophen (Tylenol), 650 MG PO Q12 Aspirin (Aspirin EC Low Dose), 81 MG PO DAILY Atorvastatin (Atorvastatin Calcium), 40 MG PO DAILY Citalopram (Citalopram Hydrobromide), 20 MG PO QAM Clopidogrel Bisulfate (Clopidogrel), 75 MG PO DAILY Ergocalciferol (Vitamin D 00657 Unit), 1 TAB PO WK Furosemide (Lasix), 20 MG PO Q2D Gabapentin (Gabapentin), 100 MG PO TID Home O2 Therapy (Oxygen), 4 LITERS NA CONTINOUS Insulin Glargine (Lantus Solostar), 55 UNITS SC QAM Insulin Lispro (Human) (Humalog Kwikpen), 24 UNITS SC TID Ipratropium-Albuterol (Combivent Respimat), 1 PUFFS INH QID Lactobacillus Acidophilus (Floranex), 1 TAB PO TID Levothyroxine Sodium (Levothyroxine Sodium), 200 MCG PO DAILY Metoprolol Tartrate (Lopressor), 12.5 MG PO BID Pantoprazole Sodium (Protonix), 20 MG PO DAILY Scheduled PRN Albuterol Sulf (Proventil 0.083% 2.5MG/3ML), 2.5 MG INH Q4H PRN for Shortness of Breath Albuterol Sulfate (Proair Respiclick), 2 PUFFS INH Q4H PRN for Shortness of Breath Current Inpatient Medications Current Inpatient Medications Medications (Trade) Dose Ordered Sig/Abdi Route Start Time Stop Time Status Last Admin Dose Admin Heparin Sodium (Porcine) (Heparin Sq 5000 Unit/0.5ml) 5,000 unit Q8 SQ 10/03/17 22:00 11/02/17 21:59 10/08/17 21:07 5,000 UNIT Acetaminophen (Tylenol Tab) 650 mg Q4H PRN PO 10/03/17 14:15 11/02/17 14:14 10/05/17 14:48 650 MG Glucose (Glucose 40% Gel) 15-30 GRAMS 15 GRAMS... UD PRN PO 10/03/17 15:15 11/02/17 15:14 Glucose (Glucose Chew Tab) 4-8 Tablets 4 Tabl... UD PRN PO 10/03/17 15:15 11/02/17 15:14 Dextrose (Dextrose 50% 50ML Syringe) 25-50ML OF 50% DW IV FOR... UD PRN IV 10/03/17 15:15 11/02/17 15:14 Glucagon (Glucagon Inj) 1 mg UD PRN SQ 10/03/17 15:15 11/02/17 15:14 Citalopram Hydrobromide (celeXA TAB) 20 mg QAM PO 10/04/17 09:00 11/03/17 08:59 10/09/17 08:22 20 MG Clopidogrel Bisulfate (plAVix TAB) 75 mg DAILY PO 10/04/17 09:00 11/03/17 08:59 10/09/17 08:22 75 MG Levothyroxine Sodium (Synthroid Tab) 200 mcg DAILYBB PO 10/04/17 06:00 11/03/17 05:59 10/09/17 08:21 200 MCG Insulin Aspart (novoLOG ASPART) SLIDING SCALE G... ACHS SC 10/05/17 16:30 11/04/17 16:29 10/09/17 08:28 13 UNITS Ipratropium [place] (Atrovent 0.02% 0.5MG/2.5ML Neb) 0.5 mg Q4R INH 10/05/17 12:00 11/04/17 11:59 10/09/17 06:52 0.5 MG Levalbuterol (Xopenex 1.25MG/ 0.5ML Neb) 1.25 mg Q4R INH 10/05/17 12:00 11/04/17 11:59 10/09/17 06:52 1.25 MG Ipratropium [place] (Atrovent 0.02% 0.5MG/2.5ML Neb) 0.5 mg Q2H PRN INH 10/05/17 10:30 11/04/17 10:29 Levalbuterol (Xopenex 1.25MG/ 0.5ML Neb) 1.25 mg Q2H PRN INH 10/05/17 10:30 11/04/17 10:29 Pantoprazole Sodium (Protonix Tab) 40 mg DAILY PO 10/07/17 08:00 11/06/17 07:59 10/09/17 08:21 40 MG Aspirin (Ecotrin Tab) 81 mg DAILY PO 10/07/17 08:00 11/06/17 07:59 10/09/17 08:22 81 MG Insulin Glargine (Lantus Solostar Pen) 55 units QAM SC 10/07/17 08:00 11/06/17 07:59 10/09/17 08:29 55 UNITS Menthol (Nice Corine) 1 corine PRN PRN PO 10/06/17 23:15 11/05/17 23:14 Furosemide (Lasix Tab) 20 mg Q2D PO 10/07/17 13:30 11/06/17 13:29 10/07/17 17:37 20 MG Miconazole Nitrate (Desenex Powder) 1 appln UD PRN EXT 10/07/17 18:15 11/06/17 18:14 Vancomycin HCl (Vancomycin Oral Soln) 125 mg QID PO 10/08/17 17:00 10/18/17 16:59 10/09/17 08:22 125 MG Raspberry (Raspberry Syrup 5ml Cup) 5 ml QID PO 10/08/17 17:00 10/22/17 16:59 10/09/17 08:22 5 ML Review of Systems Back pain and bilateral lower extremity weakness chronic Physical Exam Date Time Temp Pulse Resp B/P (MAP) Pulse Ox O2 Delivery O2 Flow Rate FiO2 10/09/17 07:38 36.7 54 20 122/67 (85) 94 10/09/17 06:56 59 94 30 10/09/17 06:52 59 24 94 BiPAP/CPAP 30 10/09/17 03:38 58 92 30 10/09/17 03:38 58 24 92 BiPAP/CPAP 30 10/09/17 00:00 BiPAP 10/08/17 23:17 56 95 30 10/08/17 23:16 56 26 95 BiPAP/CPAP 30 10/08/17 23:03 36.7 58 20 123/63 (83) 92 Nasal Cannula 4.0 10/08/17 20:00 Nasal Cannula 2.0 10/08/17 19:26 69 20 95 Nasal Cannula 4.0 10/08/17 15:35 37.1 64 20 121/69 (86) 95 Nasal Cannula 4.0 10/08/17 15:30 Nasal Cannula 2.0 10/08/17 14:28 62 20 92 Nasal Cannula 4.0 10/08/17 11:22 58 20 91 Nasal Cannula 4.0 Patient is alert but disoriented. She sitting in bed eating breakfast. Lower extremities she has considerable weakness left leg compared to right. On the left it is roughly a 2-3 over 5 EHL, dorsiflexion, quadriceps, hamstrings. Right leg is roughly a 4 over 5 EHL, dorsiflexion, hamstrings, quadriceps. Negative tension signs. Calves are soft and nontender bilaterally. no evidence of ankle clonus bilaterally.. General Appearance: no apparent distress Head: normocephalic Eyes: normal inspection ENT: hearing grossly normal Neck: supple Respiratory/Chest: no respiratory distress Cardiovascular: regular rate, rhythm Abdomen/GI: soft Back: no CVA tenderness Extremities/Musculoskelatal: no calf tenderness, non-tender Neurologic/Psych: alert Skin: warm/dry Lymphatic: no adenopathy Laboratory Results Last 24 Hours Test 10/08/17 11:58 10/08/17 16:57 10/08/17 19:35 10/09/17 05:11 Bedside Glucose 140 mg/dl 172 mg/dl 160 mg/dl White Blood Count 11.52 K/uL Red Blood Count 4.07 M/uL Hemoglobin 12.9 g/dL Hematocrit 38.8 % Mean Corpuscular Volume 95.3 fL Mean Corpuscular Hemoglobin 31.7 pg Mean Corpuscular Hemoglobin Concent 33.2 g/dl Platelet Count 217 K/uL Mean Platelet Volume 8.9 fL Neutrophils (%) (Auto) 65.1 % Lymphocytes (%) (Auto) 27.1 % Monocytes (%) (Auto) 5.0 % Eosinophils (%) (Auto) 1.7 % Basophils (%) (Auto) 0.1 % Neutrophils # (Auto) 7.49 K/uL Lymphocytes # (Auto) 3.12 K/uL Monocytes # (Auto) 0.58 K/uL Eosinophils # (Auto) 0.20 K/uL Basophils # (Auto) 0.01 K/uL RDW Standard Deviation 48.1 fL RDW Coefficient of Variation 13.8 % Immature Granulocyte % (Auto) 1.0 % Immature Granulocyte # (Auto) 0.12 K/uL Sodium Level 133 mmol/L Potassium Level mmol/L Chloride Level 93 mmol/L Carbon Dioxide Level 37 mmol/L Anion Gap 3.0 mmol/L Blood Urea Nitrogen 17 mg/dl Creatinine 0.42 mg/dl Est Creatinine Clear Calc Drug Dose 191.0 ml/min Estimated GFR () 131.9 Estimated GFR (Non- 113.8 BUN/Creatinine Ratio 40.5 Random Glucose 100 mg/dl Calcium Level 9.4 mg/dl Magnesium Level mg/dl Test 10/09/17 07:18 10/09/17 07:32 Potassium Level 4.2 mmol/L Magnesium Level 2.0 mg/dl Bedside Glucose 96 mg/dl Patient: JENNIFER LEVIN [facility] [facility] Rec: [id number] Address2: Acct ID: [id number] [facility] Zip: [place] [address] Date: 1960 Sex: F Room/Bed: [facility] Ref Phy: Guanako Sandoval SC: Gerald Att Phy: Carmelo Grijalva MD Report #: [id number] Erna Phy: Guanako Sandoval Test: TWO Admit Phy: Angela Aguirre M.D. Hog Scraper: [id number] Interpreting Phy: Kodak Man MD Diagnosis: CHRONIC OBSTRUCTIVE LUNG DISEASE Ordering Phy: Kendrick Garber D.O. Service Date: 10/08/17 Admit Date: 10/03/1711/06/17 MNE: [id number] CONF: DICTATED BY: Kodak Man MD]] CC: Kendrick Garber D.O. [facility], [place] Vangala, Satish K., MD Endcc: [~ rep ct add3]] THORACIC SPINE WITHOUT CLINICAL HISTORY: 56 years-old Female presenting with lower extremity weakness. TECHNIQUE: Multisequence, multiplanar MR imaging of the thoracic spine was performed without the use of intravenous contrast. IV contrast: None. COMPARISON: CT chest from 06/21/2017. FINDINGS: Localizer images: Unremarkable. Scoliotic curvature of the thoracic spine. Normal thoracic kyphosis. Vertebral bodies maintain normal height, alignment, and signal intensity. Mild disc desiccation noted in the mid thoracic spine, where there are disc osteophyte complexes at T7-8 and T8-9. At T8-9, left eccentric effacement of the ventral thecal sac as well as effacement of the posterior aspect of the right lateral recess secondary to facet arthropathy noted. Disc osteophyte compresses also noted in the lower thoracic spine at T11-12 and T12-L1. At T11-12, similar left eccentric effacement of the anterior thecal sac and effacement of the posterior aspect of the right lateral recess secondary to facet arthropathy. Mild bilateral neural foraminal narrowing suggested at T11-12. Disc bulge at T12-L1 mildly effaces the ventral thecal sac. Thoracic spinal cord maintains normal morphology and signal intensity. No paraspinal soft tissue inflammatory change. IMPRESSION: Scoliosis with mild multilevel degenerative changes. No evidence of spinal cord impingement, although mild spinal stenosis results at T8-9, T11-12, and T12-L1. Mild bilateral neural foraminal narrowing at T11-12. Electronically signed by: Kodak Man M.D. 10/08/2017 11:14 AM Dictated Date/Time: 10/08/2017 11:03 AM The status of this report is Signed. Draft = Not yet reviewed or approved by Radiologist. Signed = Reviewed and approved by Radiologist. <AttendingPhy>Carmelo Grijalva MD</AttendingPhy> <FamilyPhy>[facility], [place]</FamilyPhy> <PrimaryPhy>[facility], [place]</PrimaryPhy> <UnitNumber> [id number]</UnitNumber> <VisitNumber>[id number]</VisitNumber> <PatientName> JENNIFER LEVIN</PatientName> <DateOfBirth>1960</DateOfBirth> <Location> C.4E</Location> <ServiceDate>10/03/17</ServiceDate> <MNE>ESINDI</MNE> < OrderingPhy>Kendrick Garber D.O.</OrderingPhy> <OrderingPhyMNE>f rep ord dr palm</OrderingPhyMNE> <DictatingPhyMNE>f rep dict dr palm</DictatingPhyMNE> < CCListMNE>f rep ct brayane</CCListMNE> <AdmittingPhyMNE>f pt admit dr palm</ AdmittingPhyMNE> <AttendingPhyMNE>f pt attend dr palm</AttendingPhyMNE> <ConsultingPhyMNE>f pt consult dr palm</ConsultingPhyMNE> <FamilyPhyMNE>f pt fam dr palm</FamilyPhyMNE> <OtherPhyMNE>f pt other dr palm</OtherPhyMNE> < PrimaryPhyMNE>f pt prim care dr palm</PrimaryPhyMNE> <ReferringPhyMNE>f pt referring dr palm</ReferringPhyMNE> Patient: JENNIFER LEVIN Address1: [facility] [facility] Rec: [id number] Address2: Acct ID: [id number] [facility] Zip: [place] [address] Date: 1960 Sex: F Room/Bed: [facility] Ref Phy: Guanako Sandoval SC: [email or web address] Att Phy: Carmelo Grijalva MD Report #: [id number] Erna Phy: Guanako Sandoval Test: LSWOC Admit Phy: Angela Aguirre M.D. Hog Scraper: [email or web address] Interpreting Phy: Addison Connolly M.D. Diagnosis: CHRONIC OBSTRUCTIVE LUNG DISEASE Ordering Phy: Maria Antonia De Anda PA-C Service Date: 10/07/17 Admit Date: 10/03/1711/06/17 MNE: [id number] CONF: DICTATED BY: Addison Connolly M.D.]] CC: Guanako Sandoval Kathleen, PA-C Vangala, Satish K., MD Endcc: [~ rep ct add3]] MRI OF THE LUMBAR SPINE WITHOUT IV CONTRAST CLINICAL HISTORY: Left lower extremity weakness. COMPARISON STUDY: Abdominal CT dated 06/20/2017. TECHNIQUE: MRI of the lumbar spine is performed utilizing various T1 and T2-weighted sequences in the axial and sagittal planes. IV contrast was not administered for this examination. FINDINGS: Lumbar spine: Vertebral body height and alignment are maintained throughout the lumbar spine. The transverse and spinous processes appear intact. There is no evidence of spondylolysis. A small hemangioma is incidentally noted in the body of L4. Mild chronic degenerative endplate change is suggested at T12-L1. No destructive osseous lesion is seen. Intervertebral discs: Mild degenerative disc desiccation is noted throughout the lumbar spine. No significant loss of height is seen. Spinal cord: The partially imaged spinal cord is normal in morphology and signal intensity. The conus medullaris terminates at the T12-L1 interspace. T11-T12: There is a disc herniation with annular fissure, only visualized on the sagittal series. This causes at least moderate central canal stenosis with a minimum AP diameter of 5.5 mm. T12-L1: Normal as visualized on the sagittal series. L1-L2: Unremarkable. L2-L3: Unremarkable. L3-L4: There is minimal disc bulge. Bilateral subarticular stenosis is observed, and there may be impingement on the exiting bilateral L3 nerve roots. The central canal is clear. Facet arthropathy causes minimal left-sided neural foraminal stenosis. L4-L5: There is minimal posterior disc bulge. This causes left-sided subarticular stenosis. There may be impingement on the exiting left L4 nerve root. No significant central canal stenosis is seen. Facet arthropathy causes mild left neural foraminal stenosis. L5-S1: Facet arthropathy is of no confluence. The central canal and neural foramina are patent. Sacrum: The visualized sacrum is normal in morphology and signal intensity. Soft tissues: There is fatty atrophy of the paraspinous musculature. The retroperitoneal structures are grossly unremarkable but incompletely evaluated. IMPRESSION: 1. There is a disc herniation at T11-T12, only seen on the sagittal sequences. This causes at least moderate central canal stenosis. 2. Mild lumbosacral spondylosis as detailed above. There is no large disc herniation or significant central canal compromise in the lumbar region. See discussion for detailed [id number] analysis. 3. No destructive bony lesion is seen. Dictated: 10/07/2017 3:27 PM Transcribed: 10/07/2017 3:53 PM [facility] Assessment & Plan Assessment T11 12, T12-L1 disc bulge. No significant stenosis. No evidence of cord impingement modest lumbar spine degenerative changes and stenosis. Chronic bilateral lower extremity weakness left greater than right Plan: : At this point in time there are no acute surgical indications. Lower thoracic disc bulges are modest. They do not create any significant stenosis or compression upon the cord. I do not think this is the culprit of her lower extremity weakness. Lumbar MRI findings are also very modest and cannot explain her lower extremity weakness either. We will sign off for now.
[2017-10-09] MEDS: FUROSEMIDE 20 MG TAB PO SCH (13:26)
[2017-10-09] MEDS: ACETAMINOPHEN 325 MG TAB PO PRN (13:46)
--- NOTE | 2017-10-09 15:33 | Progress Note ---
Internal Med Progress Note Date of Service: Oct 09, 2017. Provider Documentation: SUBJECTIVE: Seen and examined at bedside Abdominal pain and diarrhea improving Denies chest pain, SOB, nausea, dizziness History not reliable as patient forgetful No other complaints OBJECTIVE: Vital Signs-as noted below Physical Exam: General Appearance:Obese, no apparent distress Head: normocephalic, Atraumatic Eyes: normal inspection, EOMI, PERRL Neck: supple, Trachea midline Respiratory/Chest: coarse breath sounds Cardiovascular: S1, S2, No murmur Abdomen/GI:Soft, Non tender, Bowel sounds present Extremities/Musculoskelatal:normal inspection, Trace b/l edema Neurologic/Psych:B/L LE weakness L>R Skin: normal color, warm Lab data as noted below. 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 Acute on chronic hypoxic and hypercapnic respiratory failure: Likely multifactorial: 2/2 COPD exacerbation, PNA S/P Extubation: 10/05/17 Chronic Oxygen dependency (On 4L NC as per patient) CTA:No PE, small b/l pleural effusions, pulm edema, b/l lower lobe consolidation , mild mediastinal lymphadenopathy Levaquin discontinued Blood culture: 1/2: Coag negative staph: likely contamination sputum culture: Staph aureus likely colonization IV steroids>>>continue Prednisone taper, duonebs S/P IV Lasix >>Continue PO lasix Continue BiPAP QHS C.diff colitis: Started on PO Vancomycin # 2 Reports abd pain, diarrhea Monitor electrolytes Encephalopathy: Likely metabolic UTI Likely 2/2 hypercarbia; UTI Ammonia: normal Urine Cx:Proteus and E.coli: Colonization Received Levaquin, antibiotics discontinued as asymptomatic, afebrile, no leukocytosis Denies urinary symptoms Positive Wound Cultures:colonization Appreciate ID Input B/L LE weakness:L>R TSH: normal Acetylcholine receptor ab:Negative MRI L spine: disc herniation at T11-T12, moderate central canal stenosis. Appreciate Neurology/Orthopedics Input PT/OT Noted no indication for surgery Need NCV-EMG and follow up with Neurology as outpatient Hypomagnesemia/Hypophosphatemia: Resolved Monitor Sinus Bradycardia: BB on hold monitor Chest pain: Per initial interview, CP is central, non-radiating H/o STEMI (s/p stent) R/o ACS; risk factors: DM II, CAD, HLD, current smoker Troponin: negative EKG without ischemic changes CXR with pulmonary edema, possible bibasilar PNA ECHO:No segmental left ventricular wall motion abnormalities DM II: Hold home agents Glycemic consult placed in setting of IV steroids ISS, Accu checks Hgb a1c:6.5 Hyponatremia: Chronic Improved Monitor Sodium levels HLD: Continue statin CAD (s/p stent): Continue aspirin, plavix HTN: metoprolol on hold secondary to relative bradycardia Cirrhosis 2/2 AIH: Stable DVT Px: Heparin SQ Code status: FULL PCP: Cara Sandoval Disposition: Presented from [facility] PROCEDURES: ECHO: No change compared to previous study of 06/22/17. * Normal LV chamber size with mild concentric LVH. * Normal LV systolic function, EF 60-65%. * No segmental left ventricular wall motion abnormalities are noted. * Grade II diastolic dysfunction. * Poorly visualized valvular structures without significant stenosis or regurgitation by Doppler. Vital Signs: Date Time Temp Pulse Resp B/P (MAP) Pulse Ox O2 Delivery O2 Flow Rate FiO2 10/09/17 15:00 Nasal Cannula 2.0 10/09/17 14:26 64 24 96 Nasal Cannula 4.0 10/09/17 11:17 59 24 94 Nasal Cannula 4.0 10/09/17 08:00 Nasal Cannula 2.0 10/09/17 07:38 36.7 54 20 122/67 (85) 94 10/09/17 06:56 59 94 30 10/09/17 06:52 59 24 94 BiPAP/CPAP 30 10/09/17 03:38 58 92 30 10/09/17 03:38 58 24 92 BiPAP/CPAP 30 10/09/17 00:00 BiPAP 10/08/17 23:17 56 95 30 10/08/17 23:16 56 26 95 BiPAP/CPAP 30 10/08/17 23:03 36.7 58 20 123/63 (83) 92 Nasal Cannula 4.0 10/08/17 20:00 Nasal Cannula 2.0 10/08/17 19:26 69 20 95 Nasal Cannula 4.0 Lab Results: Results Past 24 Hours Test 10/08/17 16:57 10/08/17 19:35 10/09/17 05:11 10/09/17 07:18 Range/Units Bedside Glucose 172 160 70-90 mg/dl White Blood Count 11.52 4.8-10.8 K/uL Red Blood Count 4.07 4.2-5.4 M/uL Hemoglobin 12.9 12.0-16.0 g/dL Hematocrit 38.8 37-47 % Mean Corpuscular Volume 95.3 80-100 fL Mean Corpuscular Hemoglobin 31.7 25-34 pg Mean Corpuscular Hemoglobin Concent 33.2 32-36 g/dl Platelet Count 217 130-400 K/uL Mean Platelet Volume 8.9 7.4-10.4 fL Neutrophils (%) (Auto) 65.1 % Lymphocytes (%) (Auto) 27.1 % Monocytes (%) (Auto) 5.0 % Eosinophils (%) (Auto) 1.7 % Basophils (%) (Auto) 0.1 % Neutrophils # (Auto) 7.49 1.4-6.5 K/uL Lymphocytes # (Auto) 3.12 1.2-3.4 K/uL Monocytes # (Auto) 0.58 0.11-0.59 K/uL Eosinophils # (Auto) 0.20 0-0.5 K/uL Basophils # (Auto) 0.01 0-0.2 K/uL RDW Standard Deviation 48.1 36.4-46.3 fL RDW Coefficient of Variation 13.8 11.5-14.5 % Immature Granulocyte % (Auto) 1.0 % Immature Granulocyte # (Auto) 0.12 0.00-0.02 K/uL Sodium Level 133 136-145 mmol/L Potassium Level 4.2 3.5-5.1 mmol/L Chloride Level 93 98-107 mmol/L Carbon Dioxide Level 37 21-32 mmol/L Anion Gap 3.0 3-11 mmol/L Blood Urea Nitrogen 17 7-18 mg/dl Creatinine 0.42 0.60-1.20 mg/dl Est Creatinine Clear Calc Drug Dose 191.0 ml/min Estimated GFR () 131.9 Estimated GFR (Non- 113.8 BUN/Creatinine Ratio 40.5 10-20 Random Glucose 100 70-99 mg/dl Calcium Level 9.4 8.5-10.1 mg/dl Magnesium Level 2.0 1.8-2.4 mg/dl Test 10/09/17 07:32 10/09/17 11:23 Range/Units Bedside Glucose 96 97 70-90 mg/dl
[2017-10-10] VITALS (9 sets, daily range): BP systolic 107–119; BP diastolic 66–73; PULSE 53–61; TEMP 36.4–36.8; O2SAT 92–97
[2017-10-10] MEDS: IPRATROPIUM BROMIDE NEB SOLN 0.02% 2.5 ML VIAL INH SCH ×4 (03:01→15:26)
[2017-10-10] MEDS: LEVALBUTEROL 1.25MG/0.5ML NEB INH SCH ×4 (03:01→15:26)
[2017-10-10] MEDS: HEPARIN SOD 5000 UNIT/0.5 ML CARP SQ SCH ×2 (06:00→14:29)
[2017-10-10] MEDS: LEVOTHYROXINE 200 MCG TAB PO SCH (06:12)
[2017-10-10 06:13] LABS: BASO % 0.1 %; BASO ABS # 0.01 K/uL (0-0.2); COMPLETE YES; EOS % 2.7 %; HEMATOCRIT 38.2 % (37-47); IG% 1.3 %; LYMPH % 24.6 %; MEAN CORPUSCULAR HEMOGLOBIN 31.6 pg (25-34); MEAN CORPUSCULAR HGB CONC 33.2 g/dl (32-36); MEAN PLATELET VOLUME 8.7 fL (7.4-10.4); MONO % 5.3 %; PLATELET COUNT 216 K/uL (130-400); RED BLOOD COUNT 4.02 M/uL (4.2-5.4); WHITE BLOOD COUNT 10.17 K/uL (4.8-10.8)
[2017-10-10 06:41] LABS: BUN/CREATININE RATIO 45.1 (10-20); CALCIUM 9.7 mg/dl (8.5-10.1); CREATININE 0.42 mg/dl (0.60-1.20); MAGNESIUM 1.8 mg/dl (1.8-2.4); POTASSIUM 4.1 mmol/L (3.5-5.1)
[2017-10-10] MEDS: PANTOprazole SOD 40 MG TAB PO SCH (08:45)
[2017-10-10] MEDS: VANCOMYCIN HCL 125 MG/2.5ML SOLN PO SCH ×3 (08:46→17:21)
[2017-10-10] MEDS: CLOPIDOGREL BISULFATE 75 MG TAB PO SCH (08:46)
[2017-10-10] MEDS: ASPIRIN 81 MG ECTAB PO SCH (08:46)
[2017-10-10] MEDS: RASPBERRY SYRUP 5 ML UDP PO SCH ×3 (08:46→17:21)
[2017-10-10] MEDS: CITALOPRAM 20 MG TAB PO SCH (08:46)
[2017-10-10] MEDS: INSULIN GLARGINE SOLOSTAR 100 UNITS/ML 3 ML PEN SC SCH (08:53)
[2017-10-10] MEDS: INSULIN ASPART 100 UNITS/ML 3 ML PEN SC SCH ×3 (08:53→17:25)
--- NOTE | 2017-10-10 14:06 | Progress Note ---
Internal Med Progress Note Date of Service: Oct 10, 2017. Provider Documentation: SUBJECTIVE: Seen and examined at bedside Abdominal pain and diarrhea resolved No BM yet today Denies chest pain, SOB, nausea, dizziness Feels well History not reliable as patient forgetful at times No other complaints OBJECTIVE: Vital Signs-as noted below Physical Exam: General Appearance:Obese, no apparent distress Head: normocephalic, Atraumatic Eyes: normal inspection, EOMI, PERRL Neck: supple, Trachea midline Respiratory/Chest: coarse breath sounds Cardiovascular: S1, S2, No murmur Abdomen/GI:Soft, Non tender, Bowel sounds present Extremities/Musculoskelatal:normal inspection, Trace b/l edema Neurologic/Psych:B/L LE weakness L>R Skin: normal color, warm Lab data as noted below. 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 Acute on chronic hypoxic and hypercapnic respiratory failure: Likely multifactorial: 2/2 COPD exacerbation, PNA S/P Extubation: 10/05/17 Chronic Oxygen dependency (On 4L NC as per patient) CTA:No PE, small b/l pleural effusions, pulm edema, b/l lower lobe consolidation , mild mediastinal lymphadenopathy Levaquin discontinued Blood culture: 1/2: Coag negative staph: likely contamination sputum culture: Staph aureus likely colonization IV steroids>>>continue Prednisone taper, duonebs S/P IV Lasix >>Continue PO lasix Continue BiPAP QHS C.diff colitis: Started on PO Vancomycin # 3 abd pain, diarrhea resolved Monitor electrolytes Discussed with ID: Patient to taper Vancomycin over 6 weeks period to prevent recurrence Encephalopathy: Likely metabolic UTI Likely 2/2 hypercarbia; UTI Ammonia: normal Urine Cx:Proteus and E.coli: Colonization Received Levaquin, antibiotics discontinued as asymptomatic, afebrile, no leukocytosis Denies urinary symptoms Positive Wound Cultures:colonization Appreciate ID Input B/L LE weakness:L>R TSH: normal Acetylcholine receptor ab:Negative MRI L spine: disc herniation at T11-T12, moderate central canal stenosis. Appreciate Neurology/Orthopedics Input PT/OT Noted no indication for surgery Need NCV-EMG and follow up with Neurology as outpatient Hypomagnesemia/Hypophosphatemia: Resolved Monitor Sinus Bradycardia: BB on hold monitor Chest pain: Per initial interview, CP is central, non-radiating H/o STEMI (s/p stent) R/o ACS; risk factors: DM II, CAD, HLD, current smoker Troponin: negative EKG without ischemic changes CXR with pulmonary edema, possible bibasilar PNA ECHO:No segmental left ventricular wall motion abnormalities DM II: Hold home agents Glycemic consult placed in setting of IV steroids ISS, Accu checks Hgb a1c:6.5 Hyponatremia: Chronic Improved Monitor Sodium levels HLD: Continue statin CAD (s/p stent): Continue aspirin, plavix HTN: metoprolol on hold secondary to relative bradycardia Cirrhosis 2/2 AIH: Stable DVT Px: Heparin SQ Code status: FULL PCP: Cara Sandoval Disposition: Plan to discharge to [facility] Medically stable, Plan to discharge when placement available [facility] Client Services working on placement Follow up with your physician at [facility] Complete the antibiotic course as prescribed Follow up with your Neurologist for possible NCV-EMG study for leg weakness as outpatient in 2-4 weeks Seek immediate medical attention if your symptoms reoccur or worsen Vancomycin Taper: Start taking 125mg QID for 12 more days, then BID for 2 weeks and once daily for 2 weeks and stop PROCEDURES: ECHO: No change compared to previous study of 06/22/17. * Normal LV chamber size with mild concentric LVH. * Normal LV systolic function, EF 60-65%. * No segmental left ventricular wall motion abnormalities are noted. * Grade II diastolic dysfunction. * Poorly visualized valvular structures without significant stenosis or regurgitation by Doppler. Vital Signs: Date Time Temp Pulse Resp B/P (MAP) Pulse Ox O2 Delivery O2 Flow Rate FiO2 10/10/17 14:38 36.8 61 20 107/66 (80) 93 Nasal Cannula 4.0 10/10/17 11:18 58 20 95 Nasal Cannula 4.0 10/10/17 09:00 93 Room Air 4.0 10/10/17 07:20 36.6 54 18 119/73 (88) 93 Room Air 10/10/17 07:07 56 20 97 Nasal Cannula 4.0 10/10/17 07:04 36.4 53 18 114/70 (85) 94 Nasal Cannula 4.0 10/10/17 03:03 53 24 92 BiPAP/CPAP 40 10/10/17 03:03 53 92 40 10/10/17 00:00 BiPAP 10/09/17 22:58 55 94 40 10/09/17 22:58 55 26 94 BiPAP/CPAP 40 10/09/17 22:57 36.8 55 20 96/56 (69) 92 Nasal Cannula 4.0 10/09/17 20:00 Nasal Cannula 2.0 10/09/17 19:30 56 18 94 Nasal Cannula 4.0 Lab Results: Results Past 24 Hours Test 10/09/17 17:10 10/09/17 19:43 10/10/17 05:41 10/10/17 07:38 Range/Units Bedside Glucose 120 117 90 70-90 mg/dl White Blood Count 10.17 4.8-10.8 K/uL Red Blood Count 4.02 4.2-5.4 M/uL Hemoglobin 12.7 12.0-16.0 g/dL Hematocrit 38.2 37-47 % Mean Corpuscular Volume 95.0 80-100 fL Mean Corpuscular Hemoglobin 31.6 25-34 pg Mean Corpuscular Hemoglobin Concent 33.2 32-36 g/dl Platelet Count 216 130-400 K/uL Mean Platelet Volume 8.7 7.4-10.4 fL Neutrophils (%) (Auto) 66.0 % Lymphocytes (%) (Auto) 24.6 % Monocytes (%) (Auto) 5.3 % Eosinophils (%) (Auto) 2.7 % Basophils (%) (Auto) 0.1 % Neutrophils # (Auto) 6.72 1.4-6.5 K/uL Lymphocytes # (Auto) 2.50 1.2-3.4 K/uL Monocytes # (Auto) 0.54 0.11-0.59 K/uL Eosinophils # (Auto) 0.27 0-0.5 K/uL Basophils # (Auto) 0.01 0-0.2 K/uL RDW Standard Deviation 48.4 36.4-46.3 fL RDW Coefficient of Variation 14.0 11.5-14.5 % Immature Granulocyte % (Auto) 1.3 % Immature Granulocyte # (Auto) 0.13 0.00-0.02 K/uL Sodium Level 132 136-145 mmol/L Potassium Level 4.1 3.5-5.1 mmol/L Chloride Level 91 98-107 mmol/L Carbon Dioxide Level 33 21-32 mmol/L Anion Gap 8.0 3-11 mmol/L Blood Urea Nitrogen 19 7-18 mg/dl Creatinine 0.42 0.60-1.20 mg/dl Est Creatinine Clear Calc Drug Dose 191.0 ml/min Estimated GFR () 131.9 Estimated GFR (Non- 113.8 BUN/Creatinine Ratio 45.1 10-20 Random Glucose 86 70-99 mg/dl Calcium Level 9.7 8.5-10.1 mg/dl Magnesium Level 1.8 1.8-2.4 mg/dl Test 10/10/17 11:16 Range/Units Bedside Glucose 84 70-90 mg/dl
--- NOTE | 2017-10-10 14:57 | Infectious Disease Progress Nt ---
Progress Note Date of Service Oct 10, 2017. Subjective Pt evaluation today including: conversation w/ patient, physical exam, chart review, lab review, review of studies, conversation w/ network systems consultant, review of inpatient medication list Patient appears comfortable, offers no new complaints. Remains afebrile. No increase in cough or shortness of breath. All Other Systems: Reviewed and Negative Medications Current Inpatient Medications Medications (Trade) Dose Ordered Sig/Abdi Route Start Time Stop Time Status Last Admin Dose Admin Heparin Sodium (Porcine) (Heparin Sq 5000 Unit/0.5ml) 5,000 unit Q8 SQ 10/03/17 22:00 11/02/17 21:59 10/10/17 14:29 5,000 UNIT Acetaminophen (Tylenol Tab) 650 mg Q4H PRN PO 10/03/17 14:15 11/02/17 14:14 10/09/17 13:46 650 MG Glucose (Glucose 40% Gel) 15-30 GRAMS 15 GRAMS... UD PRN PO 10/03/17 15:15 11/02/17 15:14 Glucose (Glucose Chew Tab) 4-8 Tablets 4 Tabl... UD PRN PO 10/03/17 15:15 11/02/17 15:14 Dextrose (Dextrose 50% 50ML Syringe) 25-50ML OF 50% DW IV FOR... UD PRN IV 10/03/17 15:15 11/02/17 15:14 Glucagon (Glucagon Inj) 1 mg UD PRN SQ 10/03/17 15:15 11/02/17 15:14 Citalopram Hydrobromide (celeXA TAB) 20 mg QAM PO 10/04/17 09:00 11/03/17 08:59 10/10/17 08:46 20 MG Clopidogrel Bisulfate (plAVix TAB) 75 mg DAILY PO 10/04/17 09:00 11/03/17 08:59 10/10/17 08:46 75 MG Levothyroxine Sodium (Synthroid Tab) 200 mcg DAILYBB PO 10/04/17 06:00 11/03/17 05:59 10/10/17 06:12 200 MCG Insulin Aspart (novoLOG ASPART) SLIDING SCALE G... ACHS SC 10/05/17 16:30 11/04/17 16:29 10/10/17 12:45 12 UNITS Ipratropium Libby (Atrovent 0.02% 0.5MG/2.5ML Neb) 0.5 mg Q4R INH 10/05/17 12:00 11/04/17 11:59 10/10/17 11:17 0.5 MG Levalbuterol (Xopenex 1.25MG/ 0.5ML Neb) 1.25 mg Q4R INH 10/05/17 12:00 11/04/17 11:59 10/10/17 11:17 1.25 MG Ipratropium Libby (Atrovent 0.02% 0.5MG/2.5ML Neb) 0.5 mg Q2H PRN INH 10/05/17 10:30 11/04/17 10:29 Levalbuterol (Xopenex 1.25MG/ 0.5ML Neb) 1.25 mg Q2H PRN INH 10/05/17 10:30 11/04/17 10:29 Pantoprazole Sodium (Protonix Tab) 40 mg DAILY PO 10/07/17 08:00 11/06/17 07:59 10/10/17 08:45 40 MG Aspirin (Ecotrin Tab) 81 mg DAILY PO 10/07/17 08:00 11/06/17 07:59 10/10/17 08:46 81 MG Insulin Glargine (Lantus Solostar Pen) 55 units QAM SC 10/07/17 08:00 11/06/17 07:59 10/10/17 08:53 55 UNITS Menthol (Nice Jonnathan) 1 jonnathan PRN PRN PO 10/06/17 23:15 11/05/17 23:14 Furosemide (Lasix Tab) 20 mg Q2D PO 10/07/17 13:30 11/06/17 13:29 10/09/17 13:26 20 MG Miconazole Nitrate (Desenex Powder) 1 appln UD PRN EXT 10/07/17 18:15 11/06/17 18:14 Vancomycin HCl (Vancomycin Oral Soln) 125 mg QID PO 10/08/17 17:00 10/18/17 16:59 10/10/17 12:42 125 MG Raspberry (Raspberry Syrup 5ml Cup) 5 ml QID PO 10/08/17 17:00 10/22/17 16:59 10/10/17 12:42 5 ML Objective Vital Signs Date Time Temp Pulse Resp B/P (MAP) Pulse Ox O2 Delivery O2 Flow Rate FiO2 10/10/17 14:38 36.8 61 20 107/66 (80) 93 Nasal Cannula 4.0 10/10/17 11:18 58 20 95 Nasal Cannula 4.0 10/10/17 09:00 93 Room Air 4.0 10/10/17 07:20 36.6 54 18 119/73 (88) 93 Room Air 10/10/17 07:07 56 20 97 Nasal Cannula 4.0 10/10/17 07:04 36.4 53 18 114/70 (85) 94 Nasal Cannula 4.0 10/10/17 03:03 53 24 92 BiPAP/CPAP 40 10/10/17 03:03 53 92 40 10/10/17 00:00 BiPAP 10/09/17 22:58 55 94 40 10/09/17 22:58 55 26 94 BiPAP/CPAP 40 10/09/17 22:57 36.8 55 20 96/56 (69) 92 Nasal Cannula 4.0 10/09/17 20:00 Nasal Cannula 2.0 10/09/17 19:30 56 18 94 Nasal Cannula 4.0 10/09/17 15:42 36.6 60 18 104/64 (77) 92 Nasal Cannula 4.0 10/09/17 15:00 Nasal Cannula 2.0 Physical Exam General Appearance: WD/WN, no apparent distress Eyes: normal inspection, sclerae normal ENT: normal ENT inspection, pharynx normal Neck: supple, no adenopathy, trachea midline Respiratory/Chest: chest non-tender, lungs clear, normal breath sounds, no respiratory distress Cardiovascular: regular rate, rhythm, no gallop, no murmur Abdomen: normal bowel sounds, non tender, soft, no organomegaly Extremities: non-tender, no calf tenderness Neurologic/Psychiatric: alert, oriented x 3 Skin: normal color, no rash Lymphatic: no adenopathy Laboratory Results RUN DATE: 10/08/17 [facility] LAB PAGE 1 RUN TIME: 1642 Specimen Inquiry PATIENT: JENNIFER LEVIN LOC: Gerald U # : [id number] AGE/SX: 56/F ROOM: E4 REG : 10/03/[address]: Carmelo Grijalva MD : 1960 BED: 1 DIS : STATUS: ADM IN TLOC: SPEC #: [id number] LUIS: 10/08/17 STATUS: COMP REQ #: [id number] RECD: 10/08/[address] [facility] [address]: Carmelo Grijalva MD SOURCE: STOOL ENTR: 10/08/17 [facility] DR: Kendrick Garber D.ODavid SPDESC: [employer] Daniel M.D. Pervez, Ayesha H., M.D. Patterson, Jennifer., D.O. Schaefer, Kathleen A., M.D. [facility] ORDERED: CDIFF TOXIN B COMMENTS: Has Specimen Been Obtained/Collected? Y Procedure Result Verified Site CDIFF TOXIN B GENE*(2 YR OR >) Final 10/08/17-1641 Positive for C. difficile toxin B gene RESULTS WERE ALSO CALLED TO [facility] INFECTION CONTROL ANSWERING MACHINE ON 10/08/17 BY ALBERTINA. Last 24 Hours Test 10/09/17 17:10 10/09/17 19:43 10/10/17 05:41 10/10/17 07:38 Bedside Glucose 120 mg/dl 117 mg/dl 90 mg/dl White Blood Count 10.17 K/uL Red Blood Count 4.02 M/uL Hemoglobin 12.7 g/dL Hematocrit 38.2 % Mean Corpuscular Volume 95.0 fL Mean Corpuscular Hemoglobin 31.6 pg Mean Corpuscular Hemoglobin Concent 33.2 g/dl Platelet Count 216 K/uL Mean Platelet Volume 8.7 fL Neutrophils (%) (Auto) 66.0 % Lymphocytes (%) (Auto) 24.6 % Monocytes (%) (Auto) 5.3 % Eosinophils (%) (Auto) 2.7 % Basophils (%) (Auto) 0.1 % Neutrophils # (Auto) 6.72 K/uL Lymphocytes # (Auto) 2.50 K/uL Monocytes # (Auto) 0.54 K/uL Eosinophils # (Auto) 0.27 K/uL Basophils # (Auto) 0.01 K/uL RDW Standard Deviation 48.4 fL RDW Coefficient of Variation 14.0 % Immature Granulocyte % (Auto) 1.3 % Immature Granulocyte # (Auto) 0.13 K/uL Sodium Level 132 mmol/L Potassium Level 4.1 mmol/L Chloride Level 91 mmol/L Carbon Dioxide Level 33 mmol/L Anion Gap 8.0 mmol/L Blood Urea Nitrogen 19 mg/dl Creatinine 0.42 mg/dl Est Creatinine Clear Calc Drug Dose 191.0 ml/min Estimated GFR () 131.9 Estimated GFR (Non- 113.8 BUN/Creatinine Ratio 45.1 Random Glucose 86 mg/dl Calcium Level 9.7 mg/dl Magnesium Level 1.8 mg/dl Test 10/10/17 11:16 Bedside Glucose 84 mg/dl Assessment and Plan 56-year-old female admitted with respiratory failure and encephalopathy, treated for pneumonia and urinary tract infection with Levaquin, now off all antibiotics, Now with C. difficile colitis. on vancomycin. Would recommend tapering course to prevent recurrence. Will follow.
[2017-10-10] MEDS ORDERED: VANC5CAP PO (15:42)
--- NOTE | 2017-10-10 15:48 | Discharge Instructions ---
Discharge Instructions Date of Service Oct 10, 2017. Admission Reason for Admission: Chronic Obstructive Lung Disease Discharge Discharge Diagnosis / Problem: Acute Hypoxic Hypercapnic respiratory failure, COPD, C.diff colitis Discharge Goals Goal(s): Decrease discomfort, Improve function Activity Recommendations Activity Limitations: resume your previous activity Exercise/Sports Limitations: as tolerated . Instructions / Follow-Up Instructions / Follow-Up Follow up with your physician at [facility] Follow up with your Primary care physician in 1 week after being discharged from [facility] Follow up with your Neurologist for possible NCV-EMG study for leg weakness as outpatient in 2-4 weeks Your Metoprolol 25mg BID was discontinued secondary to low blood pressure and bradycardia: Plan to resume per recommendations from your physician if necessary Seek immediate medical attention if your symptoms reoccur or worsen Complete the antibiotic course as prescribed Vancomycin Taper: Start taking 125mg QID for 12 more days, then BID for 2 weeks and once daily for 2 weeks and stop Current Hospital Diet Patient's current hospital diet: Diabetes Type 2 Diet, AHA Diet (Heart Healthy) Discharge Diet Recommended Diet: AHA Diet (Heart Healthy), Diabetes Type 2 Diet Pending Studies Studies pending at discharge: no Laboratory Results Hemoglobin A1c Test 10/04/17 04:09 Range/Units Estimated Average Glucose 140 mg/dl Hemoglobin A1c 6.5 H 4.5-5.6 % Lipid Panel Test 10/04/17 04:09 Range/Units Triglycerides Level 116 0-150 mg/dl Cholesterol Level 138 0-200 mg/dl HDL Cholesterol 70 mg/dl Cholesterol/HDL Ratio 2.0 LDL Cholesterol, Calculated 45 mg/dl Medical Emergencies . Who to Call and When: Medical Emergencies: If at any time you feel your situation is an emergency, please call 911 immediately. . Non-Emergent Contact Non-Emergency issues call your: Primary Care Provider, Neurologist, Specialist (Infectious disease) Call Non-Emergent contact if: you have a fever, your pain is not controlled, your pain is worsening, your pain is unusual for you, your pain is concerning you, you have any medication questions Seek immediate medical attention if your symptoms reoccur or worsen . . "Provider Documentation" section prepared by Carmelo Grijalva. . VTE Core Measure Inpt VTE Proph given/why not?: Unfractionated heparin SQ
--- NOTE | 2017-10-10 15:51 | Discharge Summary ---
Discharge Summary Date of Service Oct 10, 2017. Discharge Summary Admission Date: Oct 03, 2017 at 13:56 Discharge Date: Oct 10, 2017 Discharge Disposition: [facility] facility Principal Diagnosis: Acute Hypoxic Hypercapnic respiratory failure, COPD, C.diff colitis Procedures: MRI T-spine: Scoliosis with mild multilevel degenerative changes. No evidence of spinal cord impingement, although mild spinal stenosis results at T8-9, T11-12, and T12-L1. Mild bilateral neural foraminal narrowing at T11-12. MRI L-spine: 1. There is a disc herniation at T11-T12, only seen on the sagittal sequences. This causes at least moderate central canal stenosis. 2. Mild lumbosacral spondylosis as detailed above. There is no large disc herniation or significant central canal compromise in the lumbar region. See discussion for detailed [id number]-[id number] analysis. 3. No destructive bony lesion is seen. ECHO: No change compared to previous study of 06/22/17. * Normal LV chamber size with mild concentric LVH. * Normal LV systolic function, EF 60-65%. * No segmental left ventricular wall motion abnormalities are noted. * Grade II diastolic dysfunction. * Poorly visualized valvular structures without significant stenosis or regurgitation by Doppler. CTA: 1. No evidence for pulmonary embolus with limitations as described above. 2. Cardiomegaly, small bilateral pleural effusions, and interlobular septal thickening. This is consistent with moderate pulmonary edema. 3. Consolidation seen within the base of the bilateral lower lobes. This favors atelectasis from the pleural effusions. However, a pneumonia could also have a similar appearance. 3. Mild mediastinal lymphadenopathy. This could be reactive. Venous Doppler: No DVT within the right or left lower extremity. Consultations: [employer] Registrar, ID, Orthopedics, Neurology Pending Studies/Follow-Up: Follow up with your physician at [facility] Follow up with your Primary care physician in 1 week after being discharged from [facility] Follow up with your Neurologist for possible NCV-EMG study for leg weakness as outpatient in 2-4 weeks Your Metoprolol 25mg BID was discontinued secondary to low blood pressure and bradycardia: Plan to resume per recommendations from your physician if necessary Seek immediate medical attention if your symptoms reoccur or worsen Complete the antibiotic course as prescribed Vancomycin Taper: Start taking 125mg QID for 12 more days, then BID for 2 weeks and once daily for 2 weeks and stop Medication Reconciliation New Medications: Vancomycin Hcl (Vancomycin) 125 Mg Cap 125 MG PO UD for 40 Days, #90 CAP Start taking 125mg QID for 12 days, then BID for 2 weeks and once daily for 2 weeks and stop Continued Medications: Acetaminophen (Tylenol) 325 Mg Tab 650 MG PO Q12, TAB Albuterol Sulf (Proventil 0.083% 2.5MG/3ML) 2.5 Mg/3 Ml Nebu 2.5 MG INH Q4H PRN for Shortness of Breath, EA Albuterol Sulfate (Proair Respiclick) 108 Mcg/Act Aer 2 PUFFS INH Q4H PRN for Shortness of Breath Aspirin (Aspirin EC Low Dose) 81 Mg Ectab 81 MG PO DAILY Atorvastatin (Atorvastatin Calcium) 40 Mg Tab 40 MG PO DAILY Citalopram (Citalopram Hydrobromide) 20 Mg Tab 20 MG PO QAM, TAB Clopidogrel Bisulfate (Clopidogrel) 75 Mg Tab 75 MG PO DAILY Ergocalciferol (Vitamin D 41490 Unit) 50,000 Unit Cap 1 TAB PO WK, CAP Furosemide (Lasix) 20 Mg Tab 20 MG PO Q2D for 30 Days, #15 TAB 1 Refill Gabapentin (Gabapentin) 100 Mg Cap 100 MG PO TID Home O2 Therapy (Oxygen) Gas 4 LITERS NA CONTINOUS for 30 Days Insulin Glargine (Lantus Solostar) 100 Unit/Ml Inj 55 UNITS SC QAM Insulin Lispro (Human) (Humalog Kwikpen) 100 Unit/Ml Inj 24 UNITS SC TID Ipratropium-Albuterol (Combivent Respimat) 1 Aer Aer 1 PUFFS INH QID for 30 Days, #1 INH 2 Refills Lactobacillus Acidophilus (Floranex) 1 Tab Tab 1 TAB PO TID, #45 TABS 1 Refill Levothyroxine Sodium (Levothyroxine Sodium) 200 Mcg Tab 200 MCG PO DAILY Pantoprazole Sodium (Protonix) 20 Mg Tab 20 MG PO DAILY Discontinued Medications: Metoprolol Tartrate (Lopressor) 25 Mg Tab 12.5 MG PO BID Admission Information HPI (per Admitting provider): This is a 56yo F [facility] resident with a PMH of COPD (on 2L home O2), CAD (s/ p stent), DM II, HLD, 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 Per discussion with [facility] nurse, the patient was at her baseline on Tuesday (A&Ox3, communicative, requires a austen for transfer). This morning, the patient was complaining of SOB but O2 saturation on 2L NC was 95%. Ate breakfast without a problem. A few hours later , was found to be in respiratory distress, using accessory muscles with an O2 saturation of 84%. Now also complained of chest pain. The facility increased her O2 to 6L and then transported the patient via ambulance for further evaluation in the ER. Per ER physician note, patient was communicative during exam but somewhat confused. Became unresponsive after X-ray. Was not responsive to sternal rub, painful stimuli and verbal commands, so team began to prepare for intubation. At this point patient woke up and was responsive to verbal commands, able to open eyes. Was started on bipap and O2 saturation improved to 90%. Patient somnolent during exam, sleeping intermittently, so ROS is limited. Was able to communicate that she has been taking her medications regularly but has felt sick for a few days with a URI. Patient was admitted one month ago for weakness and COPD exacerbation. Was discharged to [facility], where she currently resides. Physical Exam (per Admitting): General Appearance: + obese, + pertinent finding (Sleeping on exam. Arousable to painful stimuli.) Head: normocephalic, atraumatic Eyes: normal inspection, PERRL, sclerae normal (conjunctiva normal ) ENT: hearing grossly normal, + pertinent finding (on bipap) Neck: supple, trachea midline Respiratory/Chest: chest non-tender, + respiratory distress, + rhonchi, + wheezing Cardiovascular: regular rate, rhythm, no murmur, + pertinent finding ( Diminished DP pulses bilaterally ) Abdomen/GI: normal bowel sounds, non tender, soft, no organomegaly Back: normal inspection Extremities/Musculoskelatal: normal inspection, no calf tenderness, no pedal edema Neurologic/Psych: + pertinent finding (Somnolent. Able to nod and follow verbal commands. 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 Acute on chronic hypoxic and hypercapnic respiratory failure: Likely multifactorial: 2/2 COPD exacerbation, PNA S/P Extubation: 10/05/17 Chronic Oxygen dependency (On 4L NC as per patient) CTA:No PE, small b/l pleural effusions, pulm edema, b/l lower lobe consolidation , mild mediastinal lymphadenopathy Levaquin discontinued Blood culture: 11/29: Coag negative staph: likely contamination sputum culture: Staph aureus likely colonization IV steroids>>>continue Prednisone taper, duonebs S/P IV Lasix >>Continue PO lasix Continue BiPAP QHS C.diff colitis: Started on PO Vancomycin # 3 abd pain, diarrhea resolved Monitor electrolytes Discussed with ID: Patient to taper Vancomycin over 6 weeks period to prevent recurrence Encephalopathy: Likely metabolic UTI Likely 2/2 hypercarbia; UTI Ammonia: normal Urine Cx:Proteus and E.coli: Colonization Received Levaquin, antibiotics discontinued as asymptomatic, afebrile, no leukocytosis Denies urinary symptoms Positive Wound Cultures:colonization Appreciate ID Input B/L LE weakness:L>R TSH: normal Acetylcholine receptor ab:Negative MRI L spine: disc herniation at T11-T12, moderate central canal stenosis. Appreciate Neurology/Orthopedics Input PT/OT Noted no indication for surgery Need NCV-EMG and follow up with Neurology as outpatient Hypomagnesemia/Hypophosphatemia: Resolved Monitor Sinus Bradycardia: BB on hold monitor Chest pain: Per initial interview, CP is central, non-radiating H/o STEMI (s/p stent) R/o ACS; risk factors: DM II, CAD, HLD, current smoker Troponin: negative EKG without ischemic changes CXR with pulmonary edema, possible bibasilar PNA ECHO:No segmental left ventricular wall motion abnormalities DM II: Hold home agents Glycemic consult placed in setting of IV steroids ISS, Accu checks Hgb a1c:6.5 Hyponatremia: Chronic Improved Monitor Sodium levels HLD: Continue statin CAD (s/p stent): Continue aspirin, plavix HTN: metoprolol on hold secondary to relative bradycardia Cirrhosis 2/2 AIH: Stable DVT Px: Heparin SQ Code status: FULL PCP: Cara Sandoval Disposition: Plan to discharge to [facility] Medically stable, Plan to discharge when placement available Automatic Typewriter Inspector working on placement Follow up with your physician at [facility] Complete the antibiotic course as prescribed Follow up with your Neurologist for possible NCV-EMG study for leg weakness as outpatient in 2-4 weeks Seek immediate medical attention if your symptoms reoccur or worsen Vancomycin Taper: Start taking 125mg QID for 12 more days, then BID for 2 weeks and once daily for 2 weeks and stop PROCEDURES: ECHO: No change compared to previous study of 06/22/17. * Normal LV chamber size with mild concentric LVH. * Normal LV systolic function, EF 60-65%. * No segmental left ventricular wall motion abnormalities are noted. * Grade II diastolic dysfunction. * Poorly visualized valvular structures without significant stenosis or regurgitation by Doppler. Total time spent on discharge = 38 minutes This includes examination of the patient, discharge planning, medication reconciliation, and communication with other providers. Discharge Instructions Discharge Instructions Date of Service Oct 10, 2017. Admission Reason for Admission: Chronic Obstructive Lung Disease Discharge Discharge Diagnosis / Problem: Acute Hypoxic Hypercapnic respiratory failure, COPD, C.diff colitis Discharge Goals Goal(s): Decrease discomfort, Improve function Activity Recommendations Activity Limitations: resume your previous activity Exercise/Sports Limitations: as tolerated . Instructions / Follow-Up Instructions / Follow-Up Follow up with your physician at [facility] Follow up with your Primary care physician in 1 week after being discharged from [facility] Follow up with your Neurologist for possible NCV-EMG study for leg weakness as outpatient in 2-4 weeks Your Metoprolol 25mg BID was discontinued secondary to low blood pressure and bradycardia: Plan to resume per recommendations from your physician if necessary Seek immediate medical attention if your symptoms reoccur or worsen Complete the antibiotic course as prescribed Vancomycin Taper: Start taking 125mg QID for 12 more days, then BID for 2 weeks and once daily for 2 weeks and stop Current Hospital Diet Patient's current hospital diet: Diabetes Type 2 Diet, AHA Diet (Heart Healthy) Discharge Diet Recommended Diet: AHA Diet (Heart Healthy), Diabetes Type 2 Diet Pending Studies Studies pending at discharge: no Laboratory Results Hemoglobin A1c Test 10/04/17 04:09 Range/Units Estimated Average Glucose 140 mg/dl Hemoglobin A1c 6.5 H 4.5-5.6 % Lipid Panel Test 10/04/17 04:09 Range/Units Triglycerides Level 116 0-150 mg/dl Cholesterol Level 138 0-200 mg/dl HDL Cholesterol 70 mg/dl Cholesterol/HDL Ratio 2.0 LDL Cholesterol, Calculated 45 mg/dl Medical Emergencies . Who to Call and When: Medical Emergencies: If at any time you feel your situation is an emergency, please call 911 immediately. . Non-Emergent Contact Non-Emergency issues call your: Primary Care Provider, Neurologist, Specialist (Infectious disease) Call Non-Emergent contact if: you have a fever, your pain is not controlled, your pain is worsening, your pain is unusual for you, your pain is concerning you, you have any medication questions Seek immediate medical attention if your symptoms reoccur or worsen . . "Provider Documentation" section prepared by Carmelo Grijalva. . VTE Core Measure Inpt VTE Proph given/why not?: Unfractionated heparin SQ
== END 2017-10-10 18:30 | DRG 208 ==
LOC: C.EDC 11:21 → EDBD 11:21 → C.MSICU 13:56 → ENRESERV 14:13 → C.4E 10-06 08:56
PROVIDERS: ADMIT Hospitalist; ATTEND Internal Medicine
PROC: 5A1945Z Respiratory Ventilation, 24-96 Consecutive Hours (ICD-10-PCS; principal; 2017-10-03)
PROC: 0BH18EZ Insertion of Endotracheal Airway into Trachea, Via Natural or Artificial Opening Endoscopic (ICD-10-PCS; 2017-10-03)
DX: J96.21 Acute and chronic respiratory failure with hypoxia (principal); J18.9 Pneumonia, unspecified organism; G93.41 Metabolic encephalopathy; J44.0 Chronic obstructive pulmonary disease with (acute) lower respiratory infection; J44.1 Chronic obstructive pulmonary disease with (acute) exacerbation; N39.0 Urinary tract infection, site not specified; E87.1 Hypo-osmolality and hyponatremia; A04.72 Enterocolitis due to Clostridium difficile, not specified as recurrent; E87.2 Acidosis; Z68.43 Body mass index [BMI] 50.0-59.9, adult; J96.22 Acute and chronic respiratory failure with hypercapnia; B96.4 Proteus (mirabilis) (morganii) as the cause of diseases classified elsewhere; B96.20 Unspecified Escherichia coli [E. coli] as the cause of diseases classified elsewhere; M51.24 Other intervertebral disc displacement, thoracic region; E83.42 Hypomagnesemia; E83.39 Other disorders of phosphorus metabolism; I25.2 Old myocardial infarction; E11.9 Type 2 diabetes mellitus without complications; I25.10 Atherosclerotic heart disease of native coronary artery without angina pectoris; J45.909 Unspecified asthma, uncomplicated; K74.60 Unspecified cirrhosis of liver; K75.4 Autoimmune hepatitis; E03.9 Hypothyroidism, unspecified; E78.5 Hyperlipidemia, unspecified; I73.9 Peripheral vascular disease, unspecified; E66.01 Morbid (severe) obesity due to excess calories; F17.200 Nicotine dependence, unspecified, uncomplicated; Z51.81 Encounter for therapeutic drug level monitoring; Z79.899 Other long term (current) drug therapy; Z79.4 Long term (current) use of insulin; Z79.82 Long term (current) use of aspirin; Z99.81 Dependence on supplemental oxygen; Z22.322 Carrier or suspected carrier of Methicillin resistant Staphylococcus aureus; Z95.5 Presence of coronary angioplasty implant and graft; Z83.3 Family history of diabetes mellitus; Z82.5 Family history of asthma and other chronic lower respiratory diseases

== ENCOUNTER → 2017-11-27 | Outpatient (CLI) | payer OTHER ==
[~2017-11-27] MED LIST changes: +ACET-1311 PO; -ASPEC81 PO; +ASPI-320 PO; +BISA10SU3 PR; +BISA1SUP4 RE; +CHOL20007 PO; +CLOT1CRE80 TOP; +ERGO500011 PO; -FENTANYL CITRATE 100 MCG 2 ML CARP IV ONE; +FLUC150T PO; +FLUID RESTRICTION PO; +FLUT1AER14 PO; +HMLIS SQ; +INSU100I2 SQ; +IPRA-64 INH; -LPR25 PO; +LSN25 PO; +LVQ750 PO; +MCRK20 PO; +MCTP EXT; -MIDAZOLAM HCL 5 MG/ML 2ML VIAL IV ONE; +MOMLX PO; -NICO21DI4 TD; +ONDA4TAB46 PO; +PRD20 PO; +PRED10TA PO; +SODI1ENE RE; -SUCCINYLCHOLINE CHLORIDE 20 MG/ML 10 ML VIAL IV ONE; +VANC5CAP PO; +[UNRECOGNIZED DRUG - CODE]; +[UNRECOGNIZED DRUG - OTHER] TOP
== END ==
LOC: C.LABSPEC 12:06
PROVIDERS: ATTEND Nurse Practitioner Family
DX: N39.0 Urinary tract infection, site not specified (principal)

== ENCOUNTER → 2017-11-29 | Outpatient (CLI) | payer OTHER ==
[~2017-11-29] MED LIST changes: +ASPEC81 PO; -ASPI-320 PO; -BISA10SU3 PR; -BISA1SUP4 RE; -CHOL20007 PO; -CLOT1CRE80 TOP; -FLUC150T PO; -FLUID RESTRICTION PO; -FLUT1AER14 PO; -HMLIS SQ; -INSU100I2 SQ; -IPRA-64 INH; -LSN25 PO; -LVQ750 PO; -MCRK20 PO; -MCTP EXT; -MOMLX PO; -ONDA4TAB46 PO; -PRD20 PO; -PRED10TA PO; -SODI1ENE RE; -[UNRECOGNIZED DRUG - CODE]; -[UNRECOGNIZED DRUG - OTHER] TOP
== END ==
LOC: C.LABUPNIT 21:45
PROVIDERS: ATTEND Nurse Practitioner Family
DX: N39.0 Urinary tract infection, site not specified (principal)

== ENCOUNTER → 2017-12-01 | Outpatient (CLI) | payer OTHER ==
[~2017-12-01] MED LIST changes: -ASPEC81 PO; +ASPI-320 PO; +BISA10SU3 PR; +BISA1SUP4 RE; +CHOL20007 PO; +CLOT1CRE80 TOP; +FLUC150T PO; +FLUID RESTRICTION PO; +FLUT1AER14 PO; +HMLIS SQ; +INSU100I2 SQ; +IPRA-64 INH; +LSN25 PO; +LVQ750 PO; +MCRK20 PO; +MCTP EXT; +MOMLX PO; +ONDA4TAB46 PO; +PRD20 PO; +PRED10TA PO; +SODI1ENE RE; +[UNRECOGNIZED DRUG - CODE]; +[UNRECOGNIZED DRUG - OTHER] TOP
[2017-12-01 09:43] LABS: BASO % 0.1 %; BASO ABS # 0.01 K/uL (0-0.2); EOS % 2.4 %; HEMATOCRIT 37.4 % (37-47); HEMOGLOBIN 12.4 g/dL (12.0-16.0); IG# 0.05 K/uL (0.00-0.02); LYMPH % 25.1 %; LYMPH ABS # 2.07 K/uL (1.2-3.4); MEAN CORPUSCULAR HEMOGLOBIN 31.2 pg (25-34); MEAN CORPUSCULAR HGB CONC 33.2 g/dl (32-36); MEAN PLATELET VOLUME 9.3 fL (7.4-10.4); MONO % 5.8 %; MONO ABS # 0.48 K/uL (0.11-0.59); NEUT ABS # 5.45 K/uL (1.4-6.5); PLATELET COUNT 205 K/uL (130-400); RED CELL DISTRIBUTION WIDTH CV 13.3 % (11.5-14.5); WHITE BLOOD COUNT 8.26 K/uL (4.8-10.8)
[2017-12-01 10:03] LABS: HEMOGLOBIN A1C 5.8 % (4.5-5.6)
[2017-12-01 10:40] LABS: ALBUMIN 2.8 gm/dl (3.4-5.0); ALKALINE PHOSPHATASE 86 U/L (45-117); ALT/SGPT 32 U/L (12-78); AST/SGOT 20 U/L (15-37); BLOOD UREA NITROGEN 10 mg/dl (7-18); CALCIUM 9.1 mg/dl (8.5-10.1); CARBON DIOXIDE 30 mmol/L (21-32); CREATININE 0.49 mg/dl (0.60-1.20); GLUCOSE 130 mg/dl (70-99); POTASSIUM 4.1 mmol/L (3.5-5.1); SODIUM 129 mmol/L (136-145)
[2017-12-01 10:49] LABS: TOTAL PROTEIN 6.8 gm/dl (6.4-8.2)
== END ==
LOC: C.LABUPNIT 08:49
PROVIDERS: ATTEND Nurse Practitioner Family
DX: E11.8 Type 2 diabetes mellitus with unspecified complications (principal); E55.9 Vitamin D deficiency, unspecified; N39.0 Urinary tract infection, site not specified; E03.9 Hypothyroidism, unspecified

== ENCOUNTER → 2017-12-12 | Outpatient (CLI) | payer OTHER ==
[~2017-12-12] MED LIST changes: +ASPEC81 PO; -ASPI-320 PO; -BISA10SU3 PR; -BISA1SUP4 RE; -CHOL20007 PO; -CLOT1CRE80 TOP; -FLUC150T PO; -FLUID RESTRICTION PO; -FLUT1AER14 PO; -HMLIS SQ; -INSU100I2 SQ; -IPRA-64 INH; -LSN25 PO; -LVQ750 PO; -MCRK20 PO; -MCTP EXT; -MOMLX PO; -ONDA4TAB46 PO; -PRD20 PO; -PRED10TA PO; -SODI1ENE RE; -[UNRECOGNIZED DRUG - CODE]; -[UNRECOGNIZED DRUG - OTHER] TOP
== END | disposition home or self-care (01) ==
LOC: C.LABUPNIT 07:33
PROVIDERS: ATTEND Nurse Practitioner Family
DX: M62.81 Muscle weakness (generalized) (principal)

== ENCOUNTER → 2018-01-03 | Outpatient (CLI) | payer OTHER ==
[2018-01-03 08:42] LABS: BASO % 0.1 %; BASO ABS # 0.01 K/uL (0-0.2); EOS ABS # 0.28 K/uL (0-0.5); HEMATOCRIT 36.6 % (37-47); IG# 0.05 K/uL (0.00-0.02); LYMPH % 23.1 %; LYMPH ABS # 1.63 K/uL (1.2-3.4); MEAN CELL VOLUME 96.8 fL (80-100); MEAN CORPUSCULAR HEMOGLOBIN 31.7 pg (25-34); MEAN CORPUSCULAR HGB CONC 32.8 g/dl (32-36); MEAN PLATELET VOLUME 9.5 fL (7.4-10.4); MONO % 7.1 %; NEUT ABS # 4.58 K/uL (1.4-6.5); PLATELET COUNT 228 K/uL (130-400); RED CELL DISTRIBUTION WIDTH CV 13.5 % (11.5-14.5); RED CELL DISTRIBUTION WIDTH SD 47.2 fL (36.4-46.3); WHITE BLOOD COUNT 7.05 K/uL (4.8-10.8)
== END ==
LOC: C.LABUPNIT 08:06
PROVIDERS: ATTEND Nurse Practitioner Family
DX: E11.8 Type 2 diabetes mellitus with unspecified complications (principal)

== ENCOUNTER → 2018-01-10 | Outpatient (CLI) | payer OTHER | END | disposition home or self-care (01) | LOC: C.LABUPNIT 07:59 | PROVIDERS: ATTEND Nurse Practitioner Family | DX: E55.9 Vitamin D deficiency, unspecified (principal) ==

== ENCOUNTER 2018-02-01 14:51 | Inpatient (IN) | payer OTHER ==
[2018-02-01] VITALS (11 sets, daily range): BP systolic 98–190; BP diastolic 57–86; PULSE 53–67; TEMP 37.1; O2SAT 91–100; BMI 56.2
[~2018-02-01] VITALS: Ht 157.5 cm; Wt 130.9 kg
--- NOTE | 2018-02-01 15:07 | EMERGENCY ROOM VISIT NOTE ---
History Report prepared by Tom: Vladislav Camejo Under the Supervision of: Dr. Nirav Spain M.D. First contact with patient: 14:54 Stated Complaint: LETHARGIC, SEMI RESPONSIVE History of Present Illness The patient is a 57 year old white female with a past medical history of HTN, diabetes, cirrhosis, chronic obstructive lung disease, HLD, hypothyroidism, coronary arthrosclerosis who presents to the ED via EMS with resolving unresponsiveness beginning around an hour and a half ago. Positive low oxygen saturation. Negative pain, nausea, vomiting. Per the nursing staff, the patient has not been feeling well for a week, and was found unresponsive, even to painful stimuli, by the patient's son earlier this afternoon. When EMS moved the patient to the stretcher, she was noted to wake up a bit. The patient's oxygen saturation dropped to from 96% on 6 liters of oxygen to 86% when being switched to the cannula here. The patient wears 2 liters at home. History limited secondary to patient's semi-responsiveness. Source of History: patient, nursing staff History Limited By: other (semi-responsiveness) Onset: An hour and a half ago Position: other (global) Symptom Intensity: even to painful stimuli Quality: other (unresponsiveness) Timing: other (resolving) Associated Symptoms: No nausea, No vomiting Note: Positive low oxygen saturation. Negative pain. Review of Systems See HPI for pertinent positives and negatives but somewhat limited given patient 's mental status changes. Past Medical & Surgical Medical Problems: (1) Asthma (2) Benign hypertension (3) Chronic obstructive lung disease (4) Cirrhosis of liver (5) Coronary atherosclerosis of eagle coronary vessel (6) DM type 2 (diabetes mellitus, type 2) (7) Hyperlipidemia (8) Hypothyroidism (9) Morbid obesity with BMI of 40.0-44.9, adult (10) Peripheral vascular disease (11) Respiratory failure, iljdi-[id number] (12) Tobacco use disorder Surgical Problems: (1) History of hysterectomy (2) S/P cholecystectomy (3) S/P coronary artery stent placement (4) S/P tonsillectomy and adenoidectomy Family History FH: diabetes mellitus BROTHER Heart disease MOTHER BROTHER Lung disease FATHER (COPD) SISTER (COPD, asthma) Social History Smoking Status: Current Every Day Smoker Alcohol Use: none Drug Use: none Marital Status: single Housing Status: lives with family Occupation Status: disabled Current/Historical Medications Scheduled Acetaminophen (Tylenol), 650 MG PO Q12 Aspirin (Aspirin EC Low Dose), 81 MG PO DAILY Atorvastatin (Lipitor), 40 MG PO DAILY Citalopram (Citalopram Hydrobromide), 20 MG PO QAM Clopidogrel Bisulfate (Clopidogrel), 75 MG PO DAILY Ergocalciferol (Vitamin D 88484 Unit), 1 TAB PO WK Furosemide (Lasix), 20 MG PO Q2D Gabapentin (Gabapentin), 100 MG PO TID Home O2 Therapy (Oxygen), 4 LITERS NA CONTINOUS Insulin Glargine (Lantus Solostar), 55 UNITS SC QAM Insulin Lispro (Human) (Humalog Kwikpen), 20 UNITS SC TID Ipratropium-Albuterol (Combivent Respimat), 1 PUFFS INH QID Lactobacillus Acidophilus (Floranex), 1 TAB PO TID Levothyroxine Sodium (Levothyroxine Sodium), 200 MCG PO DAILY Pantoprazole Sodium (Protonix), 20 MG PO DAILY Scheduled PRN Albuterol Sulfate (Proair Respiclick), 2 PUFFS INH Q4H PRN for Shortness of Breath Ondansetron Hcl (Zofran), 4 MG PO Q6 PRN for Nausea Allergies Coded Allergies: Penicillins (Verified Allergy, Intermediate, RASH, 08/31/17) Physical Exam Vital Signs Date Time Temp Pulse Resp B/P (MAP) Pulse Ox O2 Delivery O2 Flow Rate FiO2 02/01/18 18:13 63 22 152/75 98 Mechanical Ventilator 40 02/01/18 18:01 65 22 170/70 99 Mechanical Ventilator 40 02/01/18 17:49 70 19 170/70 99 Mechanical Ventilator 40 02/01/18 17:31 74 18 148/62 100 Mechanical Ventilator 02/01/18 17:25 60 02/01/18 17:12 96 02/01/18 17:09 69 18 126/56 99 Ambu-Bag 15.0 02/01/18 16:58 36.5 02/01/18 16:54 62 14 147/62 86 BiPAP 50 02/01/18 15:45 88 CPAP 02/01/18 15:44 66 16 137/58 88 BiPAP 40 02/01/18 15:26 67 91 35 3/7/18 15:09 68 20 143/63 95 Nasal Cannula 6.0 02/01/18 15:08 69 Physical Exam GENERAL: Not awake, not alert but arousable. HENT: Normocephalic, atraumatic. EYES: Normal conjunctiva. Sclera non-icteric. NECK: Supple. No nuchal rigidity. FROM. RESPIRATORY: Diffuse wheezes throughout, no rhonchi, crackles CARDIAC: RRR, no MRG ABDOMEN: Obese, soft, NTND, BS+ MSK: No chest wall TTP, no LE edema NEURO: AXO x2, GCS 14, 5/5 upper extremity, 4/5 lower extremity, no saddle anesthesia, no sensory deficits. SKIN: Mild rash over L anterior chest or jaundice noted. Medical Decision & Procedures ER Provider Diagnostic Interpretation: Radiology results as stated below per my review and radiologist interpretation: CHEST ONE VIEW PORTABLE HISTORY: 57 years-old Female Evaluate Fever/Sepsis acute fever and sepsis with lethargy COMPARISON: Chest radiograph 10/07/2017 TECHNIQUE: Portable AP view of the chest FINDINGS: Cardiac silhouette is again enlarged. Pulmonary vascular congestion with bilateral multifocal multilobar mixed interstitial and alveolar opacities within a perihilar and bibasilar distribution, right greater than left. Small bilateral pleural effusions. There is no pneumothorax. Bones of the chest appear grossly intact. IMPRESSION: 1. Cardiomegaly with right greater than left bilateral mixed interstitial and alveolar opacities suggesting asymmetric pulmonary edema and/or pneumonia. 2. Small bilateral pleural effusions. The above report was generated using voice recognition software. It may contain grammatical, syntax or spelling errors. Electronically signed by: Selvin Lui M.D. 02/01/2018 3:42 PM Dictated Date/Time: 02/01/2018 3:40 PM Laboratory Results 02/01/18 14:40 Red Blood Count 3.61, Mean Corpuscular Volume 98.6, Mean Corpuscular Hemoglobin 32.7, Mean Corpuscular Hemoglobin Concent 33.1, Mean Platelet Volume 8.3, Neutrophils (%) (Auto) 70.6, Lymphocytes (%) (Auto) 19.2, Monocytes (%) (Auto) 6.3, Eosinophils (%) (Auto) 3.3, Basophils (%) (Auto) 0.1, Neutrophils # (Auto) 5.35, Lymphocytes # (Auto) 1.46, Monocytes # (Auto) 0.48, Eosinophils # (Auto) 0.25, Basophils # (Auto) 0.01 02/01/18 14:40 Test 02/01/18 14:40 02/01/18 14:56 02/01/18 15:09 02/01/18 15:50 White Blood Count 7.59 K/uL (4.8-10.8) Red Blood Count 3.61 M/uL (4.2-5.4) Hemoglobin 11.8 g/dL (12.0-16.0) Hematocrit 35.6 % (37-47) Mean Corpuscular Volume 98.6 fL (80-100) Mean Corpuscular Hemoglobin 32.7 pg (25-34) Mean Corpuscular Hemoglobin Concent 33.1 g/dl (32-36) Platelet Count 208 K/uL (130-400) Mean Platelet Volume 8.3 fL (7.4-10.4) Neutrophils (%) (Auto) 70.6 % Lymphocytes (%) (Auto) 19.2 % Monocytes (%) (Auto) 6.3 % Eosinophils (%) (Auto) 3.3 % Basophils (%) (Auto) 0.1 % Neutrophils # (Auto) 5.35 K/uL (1.4-6.5) Lymphocytes # (Auto) 1.46 K/uL (1.2-3.4) Monocytes # (Auto) 0.48 K/uL (0.11-0.59) Eosinophils # (Auto) 0.25 K/uL (0-0.5) Basophils # (Auto) 0.01 K/uL (0-0.2) RDW Standard Deviation 49.5 fL (36.4-46.3) RDW Coefficient of Variation 13.8 % (11.5-14.5) Immature Granulocyte % (Auto) 0.5 % Immature Granulocyte # (Auto) 0.04 K/uL (0.00-0.02) Prothrombin Time 9.9 SECONDS (9.0-12.0) Prothromb Time International Ratio 0.9 (0.9-1.1) Activated Partial Thromboplast Time 30.7 SECONDS (21.0-31.0) Partial Thromboplastin Ratio 1.2 Anion Gap 1.0 mmol/L (3-11) Estimated GFR () 136.5 Estimated GFR (Non- 117.8 BUN/Creatinine Ratio 27.6 (10-20) Calcium Level 8.7 mg/dl (8.5-10.1) Total Bilirubin 0.3 mg/dl (0.2-1) Direct Bilirubin < 0.1 mg/dl (0-0.2) Aspartate Amino Transf (AST/SGOT) 26 U/L (15-37) Alanine Aminotransferase (ALT/SGPT) 41 U/L (12-78) Alkaline Phosphatase 99 U/L (45-117) Total Creatine Kinase 111 U/L (26-192) Troponin I < 0.015 ng/ml (0-0.045) Pro-B-Type Natriuretic Peptide 940 pg/ml (0-900) Total Protein 7.6 gm/dl (6.4-8.2) Albumin 3.0 gm/dl (3.4-5.0) Lipase 103 U/L (73-393) Lactic Acid Level 0.6 mmol/L (0.4-2.0) Ammonia 58.6 umol/L (11-32) Influenza Type A Antigen Neg for Influ A (NEG) Influenza Type B Antigen Neg for Influ B (NEG) Test 02/01/18 17:03 02/01/18 17:17 02/01/18 17:58 Bedside Lactic Acid Arterial 0.43 mmol/L (0.36-1.25) Bedside Blood Gas pH (LAB) 7.22 (7.35-7.45) Bedside Blood Gas pCO2 (LAB) > 115 mmHg (35-46) Bedside Blood Gas pO2 (LAB) 69 mmHg (80-95) Bedside Blood Gas HCO3 (LAB) 47 meq/L (19-24) Bedside Blood Gas Total CO2 < 5 mEq/l (24-31) Bedside Blood Gas Base Excess (LAB) 19.0 meq/L (-9-1.8) Bedside Blood Gas O2 Saturation 87.0 % (90-95) Venous Blood pH 7.25 (7.36-7.41) Venous Blood Partial Pressure CO2 98 mmHg (38.0-50.0) Venous Blood Partial Pressure O2 41 mmHg Venous Blood HCO3 42 mmol/L Venous Blood Oxygen Saturation 74.3 % Venous Blood Base Excess 11.0 mEq/L Laboratory results reviewed by me Medications Administered Medications (Trade) Dose Ordered Sig/Abdi Route Start Time Stop Time Status Last Admin Dose Admin Cefepime HCl 2000 mg/Dextrose 112.5 ml @ 200 mls/hr ONE STAT IV 02/01/18 16:41 02/01/18 17:14 DC 02/01/18 17:52 200 MLS/HR Levofloxacin (Levaquin / D5W) 750 mg NOW ONCE IV 02/01/18 16:45 02/01/18 16:46 DC 02/01/18 17:27 750 MG Miscellaneous (Rapid Sequence Induction Bag) 1 ea STK-MED ONCE N/A 02/01/18 16:50 02/01/18 16:51 DC 02/01/18 16:50 1 EA Rocuronium [place] (Zemuron Inj) 100 mg ONE ONCE IV 02/01/18 17:09 02/01/18 17:22 DC 02/01/18 17:24 100 MG Ketamine HCl (Ketalar Steri-Vial Inj) 125 mg ONE ONCE IV 02/01/18 17:09 02/01/18 17:22 DC 02/01/18 17:24 125 MG Vancomycin HCl 2000 mg/Sodium Chloride 540 ml @ 200 mls/hr NOW STAT IV 02/01/18 16:41 02/01/18 19:22 02/01/18 17:52 200 MLS/HR Lorazepam (Ativan Inj) 2 mg STK-MED ONCE .ROUTE 02/01/18 18:07 02/01/18 18:08 DC 02/01/18 18:07 1 MG Fentanyl Citrate (Fentanyl Inj) 100 mcg STK-MED ONCE .ROUTE 02/01/18 18:26 02/01/18 18:27 DC 02/01/18 18:28 25 MCG Procedure Endotracheal Intubation Indication hypercapnic respiratory failure. The patient was on 100% oxygen via NRB prior to the procedure w/ NC on a flush rate. Suction, airway equipment, RSI drugs, respiratory equipment, and appropriate personnel were prepared prior to the initiation of the procedure. A time out was taken. Induction was performed with ketamine. After observing the clinical benefit of the medications, the airway was easily visualized utilizing a 4.0 MAC blade. A 7.5 size ETT tube was placed atraumatically to 23 cm using standard technique. The cuff inflated without signs of malfunction. There were bilateral breath sounds, positive colormetric change, no gastric sounds, a good capnography waveform, and post procedure pulse oximetry was 97%. Post intubation sedation and paralysis was administered using rocuronium and PRN fentanyl. There were no complications. ECG Per My Interpretation Indication: altered mental status Rate (beats per minute): 69 Rhythm: sinus rhythm Findings: 1st degree AV block, other (normal axis, some peaked T-waves) ED Course 1500: The patient was evaluated in room C12B. A limited history and physical exam was performed. 1600: I performed an ultrasound on the patient - parasternal long, with reasonable concentric squeeze. Mild RV dilation. EPSS .6 cm. IVC with mild respiratory variability. Diffuse B-lines left lung. Trace B-lines right lung. 1635: I reevaluated the patient. She will be evaluated for further treatment. 1711: Discussed the patient's case with Dr. Trina Patricia train operations supervisor. The patient will be evaluated for further treatment and disposition. Medical Decision The patient is a 57 year old white female with a past medical history of HTN, diabetes, cirrhosis, chronic obstructive lung disease, HLD, hypothyroidism, coronary arthrosclerosis who presents to the ED via EMS with resolving unresponsiveness beginning around an hour and a half ago. Positive low oxygen saturation. Negative pain, nausea, vomiting. Differential diagnosis: Etiologies such as metabolic, infection, hypoglycemia, electrolyte abnormalities , cardiac sources, intracerebral event, toxicologic, neurologic, as well as others were entertained. Prior records reviewed. Patient was seen and evaluated the bedside. Patient does have multiple medical comorbidities. Patient is a resident [facility]. There is concern that the patient was not as alert and oriented. On initial exam the patient is easily arousable and is able to follow commands. Patient is a and O 2. Patient did have an elevated PCO2's the patient was placed on BiPAP. Patient does have noted shingles to the anterior chest. Patient did have rhonchorous breath sounds throughout. Patient had blood work, EKG, ABG, lactate, chest x-ray, CT of the brain ordered. The patient's VBG did show hypercapnic respiratory acidosis. The patient likely does have a chronic CO2 retention component based on her metabolic alkalosis. Patient is acutely acidotic. Patient does have an elevated ammonia. Chest x-ray concerning for interstitial pulmonary edema versus pneumonia. Patient was covered with broad-spectrum antibiotics. Patient does have noted hyponatremia. This may be related to some volume overloaded related to possible CHF. Patient does have some bilateral lower extremity edema. I discussed the patient with the career services manager as well as the admitting hospitalist. Patient had a negative flu. Trace slightly elevated BNP. Bedside ultrasound was completed that did show some mild respiratory variable variability with IVC. The patient does have B-lines on lung exam and does have lower extremity edema. The patient was less responsive upon reexamination. Upon strong sternal rub the patient would open her eyes localized pain but would not localize any answers to questions. Given that the patient was severely hypercarbic did discuss the patient's CODE STATUS with the personal long-term that the patient is a full code. I discussed the patient's case with the daughter did state that she would want everything done. Patient was set up for intubation. The patient was intubated on first pass with a 7.5 ET tube at 23 cm at the teeth. She had good color change, equal chest rise, bilateral breath sounds. No sounds heard over the abdomen. The patient was admitted to the ICU under the care of by the hospitalist and the career services manager service. Medication Reconcilliation Current Medication List: was personally reviewed by me Blood Pressure Screening Patient's blood pressure: Elevated blood pressure Referred to hospitalist. Consults Time Called: 1700 Consulting Physician: Dr. Trina Patricia train operations supervisor Returned Call: [phone] Discussed the patient's case with Dr. Trina Patricia train operations supervisor. The patient will be evaluated for further treatment and disposition. Additional Consults: Consulted Physician: Dr. Borrero Returned Call: 1730 Additional Comments: Will be admitted to ICU Impression Primary Impression: Hypercapnic respiratory failure Additional Impressions: Hyponatremia Acute respiratory acidosis HCAP (healthcare-associated pneumonia) Anemia Hyperkalemia Critical Care I have personally spent greater than 75 minutes of critical care time in the direct management of this patient. This includes bedside care, interpretation of diagnostic studies, and testing, discussion with consultants, patient, and family members, and other required patient management activities. This 75 minutes is in excess of all separately billable procedures. Scribe Attestation The scribe's documentation has been prepared under my direction and personally reviewed by me in its entirety. I confirm that the note above accurately reflects all work, treatment, procedures, and medical decision making performed by me. Departure Information Dispostion Being Evaluated By Hospitalist Referrals Guanako Sandoval (PCP) Problem Qualifiers Primary Impression: Hypercapnic respiratory failure Chronicity: acute Qualified Codes: J96.02 - Acute respiratory failure with hypercapnia Additional Impressions: Anemia Anemia type: unspecified type Qualified Codes: D64.9 - Anemia, unspecified
[2018-02-01 15:29] LABS: BASO % 0.1 %; BASO ABS # 0.01 K/uL (0-0.2); EOS % 3.3 %; EOS ABS # 0.25 K/uL (0-0.5); HEMATOCRIT 35.6 % (37-47); HEMOGLOBIN 11.8 g/dL (12.0-16.0); IG# 0.04 K/uL (0.00-0.02); LYMPH % 19.2 %; LYMPH ABS # 1.46 K/uL (1.2-3.4); MEAN CELL VOLUME 98.6 fL (80-100); MEAN CORPUSCULAR HEMOGLOBIN 32.7 pg (25-34); MEAN CORPUSCULAR HGB CONC 33.1 g/dl (32-36); MEAN PLATELET VOLUME 8.3 fL (7.4-10.4); MONO % 6.3 %; MONO ABS # 0.48 K/uL (0.11-0.59); NEUT % 70.6 %; NEUT ABS # 5.35 K/uL (1.4-6.5); PLATELET COUNT 208 K/uL (130-400); RED CELL DISTRIBUTION WIDTH CV 13.8 % (11.5-14.5); RED CELL DISTRIBUTION WIDTH SD 49.5 fL (36.4-46.3); WHITE BLOOD COUNT 7.59 K/uL (4.8-10.8)
[2018-02-01 15:40] LABS: INR 0.9 (0.9-1.1); PTT PATIENT 30.7 SECONDS (21.0-31.0)
--- NOTE | 2018-02-01 15:43 | DIAGNOSTIC IMAGING REPORT ---
CHEST ONE VIEW PORTABLE HISTORY: 57 years-old Female Evaluate Fever/Sepsis acute fever and sepsis with lethargy COMPARISON: Chest radiograph 10/07/2017 TECHNIQUE: Portable AP view of the chest FINDINGS: Cardiac silhouette is again enlarged. Pulmonary vascular congestion with bilateral multifocal multilobar mixed interstitial and alveolar opacities within a perihilar and bibasilar distribution, right greater than left. Small bilateral pleural effusions. There is no pneumothorax. Bones of the chest appear grossly intact. IMPRESSION: 1. Cardiomegaly with right greater than left bilateral mixed interstitial and alveolar opacities suggesting asymmetric pulmonary edema and/or pneumonia. 2. Small bilateral pleural effusions. The above report was generated using voice recognition software. It may contain grammatical, syntax or spelling errors. Electronically signed by: Selvin Lui M.D. 02/01/2018 3:42 PM Dictated Date/Time: 02/01/2018 3:40 PM
[2018-02-01 15:46] LABS: ALT/SGPT 41 U/L (12-78); AST/SGOT 26 U/L (15-37); BLOOD UREA NITROGEN 10 mg/dl (7-18); CALCIUM 8.7 mg/dl (8.5-10.1); CARBON DIOXIDE 39 mmol/L (21-32); CREATININE 0.37 mg/dl (0.60-1.20); GLUCOSE 110 mg/dl (70-99); LIPASE 103 U/L (73-393); POTASSIUM 5.2 mmol/L (3.5-5.1); SODIUM 124 mmol/L (136-145)
[2018-02-01 15:51] LABS: ALKALINE PHOSPHATASE 99 U/L (45-117); TOTAL PROTEIN 7.6 gm/dl (6.4-8.2)
[2018-02-01] MEDS ORDERED: ONDA4TAB46 PO (15:53)
[2018-02-01 16:13] LABS: INFLUENZA B ANTIGEN Neg for Influ B (NEG)
[2018-02-01] MEDS ORDERED: KETAMINE HCL INJ 50 MG/ML 10 ML VIAL IV ONE ×2 (16:13→17:09)
[2018-02-01] MEDS ORDERED: ROCURONIUM BROMIDE 10 MG/ML 10 ML VIAL IV ONE (16:13)
[2018-02-01] MEDS ORDERED: CEFEPIME IV 2,000 MG in DEXTROSE 5% 100ML 100 ML IV STA (16:41)
[2018-02-01] MEDS ORDERED: VANCOMYCIN INJ 2,000 MG in SODIUM CHLORIDE 0.9% 250ML 250 ML IV STA (16:41)
[2018-02-01] MEDS ORDERED: VANCOMYCIN INJ 2,000 MG in SODIUM CHLORIDE 0.9% 500ML 500 ML IV STA (16:41)
[2018-02-01] MEDS ORDERED: VANCOMYCIN CONSULT ACTIVE PRN ×2 (16:45→18:00)
[2018-02-01] MEDS ORDERED: LEVAQUIN 750MG / 150ML D5W IV ONE (16:45)
[2018-02-01] MEDS ORDERED: RAPID SEQUENCE INDUCTION BAG ONE (16:50)
[2018-02-01] MEDS ORDERED: ROCURONIUM BROMIDE 10 MG/ML 5 ML VIAL IV ONE (17:09)
[2018-02-01] MEDS ORDERED: ICU PROTOCOL FOR HYPERGLYCEMIA PRN (17:45)
--- NOTE | 2018-02-01 17:45 | History and Physical ---
History & Physical Date & Time of Service: Feb 01, 2018 at 17:45 . Chief Complaint: lethargy . Primary Care Physician: Guanako Sandoval . History of Present Illness Source: hospital records 57-year-old female, resident at [facility]. History of ischemic heart disease, COPD on home O2, cirrhosis, diabetes mellitus type 2, and other problems as noted below. Refer to ED for evaluation of altered mental status. Patient unable to provide any history due to her condition. [facility]. Found to be in respiratory failure and intubated in the ED. . Past Medical/Surgical History Chronic and Resolved Medical Problems: (1) Asthma Status: Chronic (2) Benign hypertension Status: Chronic (3) Chronic obstructive lung disease Status: Chronic (4) Cirrhosis of liver Permanent Comment: autoimmune, 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 Status: Chronic (5) Coronary atherosclerosis of [place] coronary vessel Permanent Comment: STEMI November of 2011 treated at [facility] with a PCI to the RCA Status: Chronic (6) DM type 2 (diabetes mellitus, type 2) Status: Chronic (7) Hyperlipidemia Status: Chronic (8) Hypothyroidism Status: Chronic (9) Morbid obesity with BMI of 40.0-44.9, adult Status: Chronic (10) Peripheral vascular disease Status: Chronic (11) Tobacco use disorder Status: Chronic Surgical Problems: (1) History of hysterectomy Status: Chronic (2) S/P cholecystectomy Status: Chronic (3) S/P coronary artery stent placement Permanent Comment: 11/2011 ISABEL to RCA Status: Chronic (4) S/P tonsillectomy and adenoidectomy Status: Chronic . Family History FATHER Lung disease (COPD) MOTHER Heart disease BROTHER FH: diabetes mellitus Heart disease SISTER Lung disease (COPD, asthma) Social History Smoking Status: Former Smoker Alcohol Use: none Drug Use: none Marital Status: single Housing status: [facility] Occupational Status: disabled Immunizations History of Influenza Vaccine: Yes History of Tetanus Vaccine?: Yes Tetanus Immunization Date: Jul 15, 2008 History of Pneumococcal: Yes Pneumococcal Date: Jan 05, 2008 History of Hepatitis B Vaccine: Yes Hepatitis Immunization Date: Mar 22, 2017 Allergies Coded Allergies: Penicillins (Verified Allergy, Intermediate, RASH, 08/31/17) Home Medications Scheduled Acetaminophen (Tylenol), 650 MG PO Q12 Aspirin (Aspirin EC Low Dose), 81 MG PO DAILY Atorvastatin (Lipitor), 40 MG PO DAILY Citalopram (Citalopram Hydrobromide), 20 MG PO QAM Clopidogrel Bisulfate (Clopidogrel), 75 MG PO DAILY Ergocalciferol (Vitamin D 42268 Unit), 1 TAB PO WK Furosemide (Lasix), 20 MG PO Q2D Gabapentin (Gabapentin), 100 MG PO TID Home O2 Therapy (Oxygen), 4 LITERS NA CONTINOUS Insulin Glargine (Lantus Solostar), 55 UNITS SC QAM Insulin Lispro (Human) (Humalog Kwikpen), 20 UNITS SC TID Ipratropium-Albuterol (Combivent Respimat), 1 PUFFS INH QID Lactobacillus Acidophilus (Floranex), 1 TAB PO TID Levothyroxine Sodium (Levothyroxine Sodium), 200 MCG PO DAILY Pantoprazole Sodium (Protonix), 20 MG PO DAILY Scheduled PRN Albuterol Sulfate (Proair Respiclick), 2 PUFFS INH Q4H PRN for Shortness of Breath Ondansetron Hcl (Zofran), 4 MG PO Q6 PRN for Nausea Review of Systems Unable to obtain due to patient's condition. . Physical Exam Vital Signs Date Time Temp Pulse Resp B/P (MAP) Pulse Ox O2 Delivery O2 Flow Rate FiO2 02/01/18 17:31 74 18 148/62 100 Mechanical Ventilator 02/01/18 17:12 96 02/01/18 17:09 69 18 126/56 99 Ambu-Bag 15.0 02/01/18 16:58 36.5 02/01/18 16:54 62 14 147/62 86 BiPAP 50 02/01/18 15:45 88 CPAP 02/01/18 15:44 66 16 137/58 88 BiPAP 40 02/01/18 15:26 67 91 35 02/01/18 15:09 68 20 143/63 95 Nasal Cannula 6.0 02/01/18 15:08 69 CONSTITUTIONAL vital signs as noted above obese, acutely-ill EYES conjunctivae injected; lids normal pupils ~ 3 mm, equal EARS, NOSE, MOUTH AND THROAT nasal airway oral ETT NECK palpations limited due to body habitus thyroid exam limited due to body habitus RESPIRATORY intubated on vent, bilateral breath sounds scattered rhonchi, diffuse wheezing CARDIOVASCULAR regular rate and rhythm III/ systolic murmur @ base and LSB no gallop or rub appreciated, but exam limited examination of carotid pulses limited abdominal aorta not palpable pedal pulses diminished capillary refill toes < 2 seconds 1-2+ pretibial edema, 1+ pedal edema GASTROINTESTINAL obese normal bowel sounds, soft, nontender; no palpable masses no hepatomegaly splenomegaly appreciated, but exam limited LYMPHATIC no cervical adenopathy appreciated MUSCULOSKELETAL no cyanosis (after intubation) no apparent calf tenderness paralyzed after intubation no diabetic foot ulcers SKIN warm and dry NEUROLOGIC unresponsive and paralyzed after intubation PSYCHIATRIC unable to assess due to patient's condition . Diagnostics Laboratory Results Results Past 24 Hours Test 02/01/18 14:40 02/01/18 14:56 02/01/18 15:09 02/01/18 15:50 Range/Units White Blood Count 7.59 4.8-10.8 K/uL Red Blood Count 3.61 4.2-5.4 M/uL Hemoglobin 11.8 12.0-16.0 g/dL Hematocrit 35.6 37-47 % Mean Corpuscular Volume 98.6 80-100 fL Mean Corpuscular Hemoglobin 32.7 25-34 pg Mean Corpuscular Hemoglobin Concent 33.1 32-36 g/dl Platelet Count 208 130-400 K/uL Mean Platelet Volume 8.3 7.4-10.4 fL Neutrophils (%) (Auto) 70.6 % Lymphocytes (%) (Auto) 19.2 % Monocytes (%) (Auto) 6.3 % Eosinophils (%) (Auto) 3.3 % Basophils (%) (Auto) 0.1 % Neutrophils # (Auto) 5.35 1.4-6.5 K/uL Lymphocytes # (Auto) 1.46 1.2-3.4 K/uL Monocytes # (Auto) 0.48 0.11-0.59 K/uL Eosinophils # (Auto) 0.25 0-0.5 K/uL Basophils # (Auto) 0.01 0-0.2 K/uL RDW Standard Deviation 49.5 36.4-46.3 fL RDW Coefficient of Variation 13.8 11.5-14.5 % Immature Granulocyte % (Auto) 0.5 % Immature Granulocyte # (Auto) 0.04 0.00-0.02 K/uL Prothrombin Time 9.9 9.0-12.0 SECONDS Prothromb Time International Ratio 0.9 0.9-1.1 Activated Partial Thromboplast Time 30.7 21.0-31.0 SECONDS Partial Thromboplastin Ratio 1.2 Sodium Level 124 136-145 mmol/L Potassium Level 5.2 3.5-5.1 mmol/L Chloride Level 84 98-107 mmol/L Carbon Dioxide Level 39 21-32 mmol/L Anion Gap 1.0 3-11 mmol/L Blood Urea Nitrogen 10 7-18 mg/dl Creatinine 0.37 0.60-1.20 mg/dl Estimated GFR () 136.5 Estimated GFR (Non- 117.8 BUN/Creatinine Ratio 27.6 10-20 Random Glucose 110 70-99 mg/dl Calcium Level 8.7 8.5-10.1 mg/dl Total Bilirubin 0.3 0.2-1 mg/dl Direct Bilirubin < 0.1 0-0.2 mg/dl Aspartate Amino Transf (AST/SGOT) 26 15-37 U/L Alanine Aminotransferase (ALT/SGPT) 41 12-78 U/L Alkaline Phosphatase 99 45-117 U/L Total Creatine Kinase 111 26-192 U/L Troponin I < 0.015 0-0.045 ng/ml Pro-B-Type Natriuretic Peptide 940 0-900 pg/ml Total Protein 7.6 6.4-8.2 gm/dl Albumin 3.0 3.4-5.0 gm/dl Lipase 103 73-393 U/L Venous Blood pH 7.18 7.36-7.41 Venous Blood Partial Pressure CO2 117 38.0-50.0 mmHg Venous Blood Partial Pressure O2 40 mmHg Venous Blood HCO3 43 mmol/L Venous Blood Oxygen Saturation 70.8 % Venous Blood Base Excess 9.8 mEq/L Lactic Acid Level 0.6 0.4-2.0 mmol/L Ammonia 58.6 11-32 umol/L Influenza Type A Antigen Neg for Influ A NEG Influenza Type B Antigen Neg for Influ B NEG Test 02/01/18 17:03 02/01/18 17:17 Range/Units Bedside Lactic Acid Arterial 0.43 0.36-1.25 mmol/L Bedside Blood Gas pH (LAB) 7.22 7.35-7.45 Bedside Blood Gas pCO2 (LAB) > 115 35-46 mmHg Bedside Blood Gas pO2 (LAB) 69 80-95 mmHg Bedside Blood Gas HCO3 (LAB) 47 19-24 meq/L Bedside Blood Gas Total CO2 < 5 24-31 mEq/l Bedside Blood Gas Base Excess (LAB) 19.0 -9-1.8 meq/L Bedside Blood Gas O2 Saturation 87.0 90-95 % Microbiology Results 02/01/18 Blood Culture, Received Pending 02/01/18 Blood Culture, Received Pending Diagnostic Radiology Chest x-ray reviewed and formally interpreted by Radiology: IMPRESSION: 1. Cardiomegaly with right greater than left bilateral mixed interstitial and alveolar opacities suggesting asymmetric pulmonary edema and/or pneumonia. 2. Small bilateral pleural effusions. The above report was generated using voice recognition software. It may contain grammatical, syntax or spelling errors. Electronically signed by: Selvin Lui M.D. 02/01/2018 3:42 PM Dictated Date/Time: 02/01/2018 3:40 PM . EKG EKG performed at 1509 demonstrated normal sinus rhythm at 70/minute, baseline artifact, no apparent ST or T-wave abnormalities. . Impression Assessment and Plan ACUTE ON CHRONIC HYPOXIC + HYPERCAPNIC RESPIRATORY FAILURE Underlying COPD. [facility]. Arterial blood gas on ? FIO2 demonstrated PO2 69, PCO2 greater than 115, bicarbonate 47, pH 7.22. Acute respiratory failure most likely secondary to pneumonia with underlying COPD. Consider pulmonary edema; check BNP and echo. Patient was intubated in the ED. Ventilator management per Critical Care Medicine. PROBABLE PNEUMONIA Chest x-ray demonstrates bilateral infiltrates, probable healthcare associated pneumonia. Blood cultures were obtained in the ED and patient received broad-spectrum coverage with levofloxacin, vancomycin, cefepime. We will continue same antibiotics pending culture results. EXACERBATION COPD Probably secondary to pneumonia. IV methylprednisolone, taper as able. Inhaled albuterol via ETT. CORONARY ARTERY DISEASE Serum troponin normal. No acute EKG changes. Resume aspirin and statin when able to take oral medications. CIRRHOSIS History of cirrhosis. Records indicate history of autoimmune disease. May have ABDI as well. Serum ammonia 58. May or may not have hepatic encephalopathy. Follow. Consider lactulose if mental status does not improve with management of hypercapnic respiratory failure. ALTERED MENTAL STATUS May be multifactorial, combination of hypercapnia, metabolic encephalopathy, encephalopathy secondary to infection, possible hepatic encephalopathy. Follow. DM TYPE 2 History of diabetes mellitus type 2 on insulin therapy. Random blood sugar in ED 110. Check hemoglobin A1c. Anticipate fluctuating blood sugars and weight of acute illness and steroid therapy. Pharmacy consult for glycemic management due to critical illness. HYPOTHYROIDISM Check TSH. Resume levothyroxine when able to take oral medications. GI PROPHYLAXIS IV pantoprazole. VTE PROPHYLAXIS SQ enoxaparin. RESUSCITATION STATUS Patient's daughter was given updated by ED physician. She has a completed POLST form which indicates full resuscitation and aggressive treatment. DISPOSITION Critically ill. Admit to ICU. Consult CCM. Anticipated return to [facility] if her condition improves. Daughter was given update by phone by ED physician. . Resuscitation Status VTE Prophylaxis Will order VTE Prophylaxis: Yes
--- NOTE | 2018-02-01 17:52 | DIAGNOSTIC IMAGING REPORT ---
CHEST ONE VIEW PORTABLE CLINICAL HISTORY: 57 years-old Female presenting with s/p intubation. TECHNIQUE: Portable supine AP view of the chest was obtained. COMPARISON: 02/01/2018. FINDINGS: The patient is MANDEL rotated. Endotracheal tube terminates in the mid thoracic trachea over 3 cm from the chanel. Atherosclerosis of the aortic arch. Cardiac silhouette moderately enlarged. Persistent left basilar opacity. Prominence of perihilar vasculature. Small right and moderate left pleural effusions. No pneumothorax. Osseous structures normal. IMPRESSION: 1. Appropriately positioned endotracheal tube. 2. Cardiomegaly with suspected pulmonary edema. 3. Left basilar consolidation, possibly extensive atelectasis in the setting of moderate left pleural effusion versus underlying infection/pneumonia. 4. Small right pleural effusion. Electronically signed by: Kodak Man M.D. 02/01/2018 5:51 PM Dictated Date/Time: 02/01/2018 5:49 PM
[2018-02-01] MEDS ORDERED: LORAZEPAM 2 MG/ML 1 ML VIAL IV PRN (18:00)
[2018-02-01] MEDS: LORAZEPAM 2 MG/ML 1 ML VIAL ONE ×2 (18:07→18:09)
[2018-02-01] MEDS ORDERED: SODIUM CHLORIDE 0.9% 1000ML 1,000 ML IV SCH (18:15)
[2018-02-01] MEDS ORDERED: FENTANYL CITRATE INJ 50 MCG/1 ML 2 ML VIAL ONE (18:26)
[2018-02-01] MEDS: METHYLPREDNISOLONE IV 40 MG in SYRINGE 0 ML IV SCH (19:24)
[2018-02-01] MEDS: FENTANYL CITRATE INJ 50 MCG/1 ML 2 ML VIAL IV PRN (19:24)
[2018-02-01] MEDS ORDERED: CEFEPIME CONSULT ACTIVE PRN (19:45)
[2018-02-01] MEDS ORDERED: LEVOFLOXACIN CONSULT ACTIVE PRN (19:45)
[2018-02-01] MEDS ORDERED: PHARMACY GLYCEMIC MGMT CONSULT PRN (19:47)
[2018-02-01] MEDS: DexMEDEtomidine HCL IV 200 MCG in SODIUM CHLORIDE 0.9% 50ML 48 ML IV PRN ×2 (19:58→21:44)
--- NOTE | 2018-02-01 20:38 | Critical Care Consultation ---
Critical Care Consultation Date of Consultation: Feb 01, 2018. Attending Physician: Yoav Prater MD Reason for Consultation: 57-year-old female with acute on chronic hypercapnic respiratory failure with hypoxia secondary to developing pneumonia requiring intubation with mechanical ventilation and aggressive antibiotic therapies. History of Present Illness History of present illness obtained from nursing notes, colleagues notes, and nursing notes as patient unable to contribute secondary to current state of intubation. Patient reportedly with long-standing history of coronary artery disease status post PTCA with ISABEL to the RCA in 2011 with associated COPD and diabetes who resides at a local long term. She was found lethargic, altered, and hypoxic earlier today. She was brought to the emergency department where she was emergently intubated. She was found of a possible LEFT-sided developing pneumonia. Her initial ABG is suggestive of respiratory acidosis which is likely acute on chronic. She is slightly hyponatremic. Her lactic acid is not elevated. Pro-calcitonin was not elevated. Initial cardiac enzymes were not elevated. Ammonia was slightly elevated, however. Urinalysis concerning for UTI. Patient is reportedly a current daily smoker. Past Medical/Surgical History Medical Problems: (1) Asthma (2) Benign hypertension (3) Chronic obstructive lung disease (4) Cirrhosis of liver (5) Coronary atherosclerosis of [place] coronary vessel (6) DM type 2 (diabetes mellitus, type 2) (7) Hyperlipidemia (8) Hypothyroidism (9) Morbid obesity with BMI of 40.0-44.9, adult (10) Peripheral vascular disease (11) Tobacco use disorder Surgical Problems: (1) History of hysterectomy (2) S/P cholecystectomy (3) S/P coronary artery stent placement (4) S/P tonsillectomy and adenoidectomy Family History FH: diabetes mellitus BROTHER Heart disease MOTHER BROTHER Lung disease FATHER (COPD) SISTER (COPD, asthma) As reviewed above per prior records. Patient unable to contribute. Social History Smoking Status: Current Every Day Smoker Smokeless Tobacco Use: No Alcohol Use: none Drug Use: none Marital Status: single Housing Status: lives with family Occupation Status: disabled Allergies Coded Allergies: Penicillins (Verified Allergy, Intermediate, RASH, 08/31/17) Home Medications Scheduled Acetaminophen (Tylenol), 650 MG PO Q12 Aspirin (Aspirin EC Low Dose), 81 MG PO DAILY Atorvastatin (Lipitor), 40 MG PO DAILY Citalopram (Citalopram Hydrobromide), 20 MG PO QAM Clopidogrel Bisulfate (Clopidogrel), 75 MG PO DAILY Ergocalciferol (Vitamin D 07443 Unit), 1 TAB PO WK Furosemide (Lasix), 20 MG PO Q2D Gabapentin (Gabapentin), 100 MG PO TID Home O2 Therapy (Oxygen), 4 LITERS NA CONTINOUS Insulin Glargine (Lantus Solostar), 55 UNITS SC QAM Insulin Lispro (Human) (Humalog Kwikpen), 20 UNITS SC TID Ipratropium-Albuterol (Combivent Respimat), 1 PUFFS INH QID Lactobacillus Acidophilus (Floranex), 1 TAB PO TID Levothyroxine Sodium (Levothyroxine Sodium), 200 MCG PO DAILY Pantoprazole Sodium (Protonix), 20 MG PO DAILY Scheduled PRN Albuterol Sulfate (Proair Respiclick), 2 PUFFS INH Q4H PRN for Shortness of Breath Ondansetron Hcl (Zofran), 4 MG PO Q6 PRN for Nausea Current Inpatient Medications Current Inpatient Medications Medications (Trade) Dose Ordered Sig/Abdi Route Start Time Stop Time Status Last Admin Dose Admin Enoxaparin Sodium (Lovenox Inj) 40 mg HS SQ 02/01/18 21:00 03/03/18 20:59 Fentanyl Citrate (Fentanyl Inj) 25 mcg Q1H PRN IV 02/01/18 17:45 02/15/18 17:44 02/01/18 19:24 25 MCG Pantoprazole Sodium 40 mg/ Syringe 10 ml @ 5 mls/min DAILY IV 02/02/18 09:00 03/04/18 08:59 Miscellaneous Information (Icu Protocol For Hyperglycemia) 1 ea PRN PRN N/A 02/01/18 17:45 02/03/18 17:44 Lorazepam (Ativan Inj) 1 mg Q2H PRN IV 02/01/18 18:00 03/03/18 17:59 Methylprednisolone Sodium Succinate 40 mg/Syringe 0.64 ml @ 1.5 mls/min Q8H IV 02/01/18 20:00 03/03/18 19:59 02/01/18 19:24 1.5 MLS/MIN Albuterol (Ventolin Hfa Inhaler) 6 puffs QIDR INH 02/01/18 20:00 03/03/18 19:59 Vancomycin HCl 1750 mg/Sodium Chloride 535 ml @ 200 mls/hr Q8H IV 02/02/18 00:00 02/08/18 17:59 Miscellaneous Information (Consult) 1 ea UD PRN N/A 02/01/18 18:00 03/03/18 17:59 Levofloxacin 750 mg/Prmx 150 ml @ 100 mls/hr Q24H IV 02/02/18 17:00 02/08/18 16:59 Miscellaneous Information (Consult Glycemic Management Pharmacy) 1 ea UD PRN N/A 02/01/18 19:47 03/03/18 19:46 Dexmedetomidine HCl 200 mcg/ Sodium Chloride 50 ml @ 0 mls/hr Q0M PRN IV 02/01/18 19:19 02/05/18 19:18 02/01/18 19:58 13.9 MLS/HR Cefepime HCl (Consult) 1 ea UD PRN N/A 02/01/18 19:45 03/03/18 19:44 Cefepime HCl 2000 mg/Syringe 20 ml @ 5 mls/min Q12H IV 02/02/18 06:00 02/08/18 17:59 Levofloxacin (Consult) 1 ea UD PRN N/A 02/01/18 19:45 03/03/18 19:44 Review of Systems Unable to obtain secondary to patient's state of intubation. Physical Exam Date Time Temp Pulse Resp B/P (MAP) Pulse Ox O2 Delivery O2 Flow Rate FiO2 02/01/18 20:12 50 02/01/18 20:11 40 02/01/18 20:00 50 02/01/18 20:00 Mask 40 02/01/18 18:54 37.1 59 18 122/69 96 Mechanical Ventilator 40 02/01/18 18:13 63 22 152/75 98 Mechanical Ventilator 40 02/01/18 18:01 65 22 170/70 99 Mechanical Ventilator 40 02/01/18 17:49 70 19 170/70 99 Mechanical Ventilator 40 02/01/18 17:31 74 18 148/62 100 Mechanical Ventilator 02/01/18 17:25 60 02/01/18 17:12 96 02/01/18 17:09 69 18 126/56 99 Ambu-Bag 15.0 02/01/18 16:58 36.5 02/01/18 16:54 62 14 147/62 86 BiPAP 50 02/01/18 15:45 88 CPAP 02/01/18 15:44 66 16 137/58 88 BiPAP 40 02/01/18 15:26 67 91 35 02/01/18 15:09 68 20 143/63 95 Nasal Cannula 6.0 02/01/18 15:08 69 VITAL SIGNS - Vital signs and nursing notes were reviewed. GENERAL - 57-year-old female appearing her stated age who is in no acute distress. Communicates well with provider and answers questions appropriately. HEAD - NC/AT. EYES - PERRL with EOMI bilaterally. Sclera anicteric. EARS - No deformities of external structures noted on gross examination bilaterally. NOSE - Midline and without cyanosis. MOUTH/OROPHARYNX - Without perioral cyanosis. Endotracheally intubated. NECK - Neck with FROM. Supple to palpation. LUNGS - Chest wall symmetric without accessory muscle use, intercostals retractions, or central cyanosis. Course breath sounds throughout. CARDIAC - RRR with S1/S2. No murmur, rubs, or gallops appreciated. ABDOMEN - Abdominal contour obese and without pulsations or visible masses. BS normoactive all four quadrants. No tenderness, palpable masses, hepatosplenomegaly, or ascites noted. EXTREMITIES - No clubbing or peripheral cyanosis. Trace pretibial edema present. +3/5 radial and dorsalis pedis pulses palpated throughout. NEURO - Without focal deficits. Able to nod "yes/no" to simple questions. Laboratory Results Last 24 Hours Test 02/01/18 14:40 02/01/18 15:09 02/01/18 15:50 02/01/18 17:03 White Blood Count 7.59 K/uL Red Blood Count 3.61 M/uL Hemoglobin 11.8 g/dL Hematocrit 35.6 % Mean Corpuscular Volume 98.6 fL Mean Corpuscular Hemoglobin 32.7 pg Mean Corpuscular Hemoglobin Concent 33.1 g/dl Platelet Count 208 K/uL Mean Platelet Volume 8.3 fL Neutrophils (%) (Auto) 70.6 % Lymphocytes (%) (Auto) 19.2 % Monocytes (%) (Auto) 6.3 % Eosinophils (%) (Auto) 3.3 % Basophils (%) (Auto) 0.1 % Neutrophils # (Auto) 5.35 K/uL Lymphocytes # (Auto) 1.46 K/uL Monocytes # (Auto) 0.48 K/uL Eosinophils # (Auto) 0.25 K/uL Basophils # (Auto) 0.01 K/uL RDW Standard Deviation 49.5 fL RDW Coefficient of Variation 13.8 % Immature Granulocyte % (Auto) 0.5 % Immature Granulocyte # (Auto) 0.04 K/uL Prothrombin Time 9.9 SECONDS Prothromb Time International Ratio 0.9 Activated Partial Thromboplast Time 30.7 SECONDS Partial Thromboplastin Ratio 1.2 Sodium Level 124 mmol/L Potassium Level 5.2 mmol/L Chloride Level 84 mmol/L Carbon Dioxide Level 39 mmol/L Anion Gap 1.0 mmol/L Blood Urea Nitrogen 10 mg/dl Creatinine 0.37 mg/dl Estimated GFR () 136.5 Estimated GFR (Non- 117.8 BUN/Creatinine Ratio 27.6 Random Glucose 110 mg/dl Calcium Level 8.7 mg/dl Total Bilirubin 0.3 mg/dl Direct Bilirubin < 0.1 mg/dl Aspartate Amino Transf (AST/SGOT) 26 U/L Alanine Aminotransferase (ALT/SGPT) 41 U/L Alkaline Phosphatase 99 U/L Total Creatine Kinase 111 U/L Troponin I < 0.015 ng/ml Pro-B-Type Natriuretic Peptide 940 pg/ml Total Protein 7.6 gm/dl Albumin 3.0 gm/dl Lipase 103 U/L Procalcitonin 0.05 ng/ml Venous Blood pH 7.18 Venous Blood Partial Pressure CO2 117 mmHg Venous Blood Partial Pressure O2 40 mmHg Venous Blood HCO3 43 mmol/L Venous Blood Oxygen Saturation 70.8 % Venous Blood Base Excess 9.8 mEq/L Lactic Acid Level 0.6 mmol/L Ammonia 58.6 umol/L Influenza Type A Antigen Neg for Influ A Influenza Type B Antigen Neg for Influ B Bedside Lactic Acid Arterial 0.43 mmol/L Test 02/01/18 17:17 02/01/18 17:50 02/01/18 17:58 02/01/18 19:30 Bedside Blood Gas pH (LAB) 7.22 Bedside Blood Gas pCO2 (LAB) > 115 mmHg Bedside Blood Gas pO2 (LAB) 69 mmHg Bedside Blood Gas HCO3 (LAB) 47 meq/L Bedside Blood Gas Total CO2 < 5 mEq/l Bedside Blood Gas Base Excess (LAB) 19.0 meq/L Bedside Blood Gas O2 Saturation 87.0 % Urine Color YELLOW Urine Appearance CLOUDY Urine pH 5.5 Urine Specific [place] 1.010 Urine Protein NEG Urine Glucose (UA) NEG Urine Ketones NEG Urine Occult Blood 1+ Urine Nitrite POS Urine Bilirubin NEG Urine Urobilinogen NEG Urine Leukocyte Esterase LARGE Urine WBC (Auto) >30 /hpf Urine RBC (Auto) 0-4 /hpf Urine Hyaline Casts (Auto) 0 /lpf Urine Epithelial Cells (Auto) 20-30 /lpf Urine Bacteria (Auto) 2+ Urine Crystals AMORPHOUS SEDIMENT Urine Pathogenic Casts /lpf Venous Blood pH 7.25 Venous Blood Partial Pressure CO2 98 mmHg Venous Blood Partial Pressure O2 41 mmHg Venous Blood HCO3 42 mmol/L Venous Blood Oxygen Saturation 74.3 % Venous Blood Base Excess 11.0 mEq/L Bedside Glucose 145 mg/dl Test 02/01/18 19:49 Blood Gas Sample Site R Radial Bedside Blood Gas pH (LAB) 7.35 Bedside Blood Gas pCO2 (LAB) 77 mmHg Bedside Blood Gas pO2 (LAB) 64 mmHg Bedside Blood Gas HCO3 (LAB) 42 meq/L Bedside Blood Gas Total CO2 > 40 mEq/l Bedside Blood Gas Base Excess (LAB) 16.0 meq/L Bedside Blood Gas O2 Saturation 89.0 % Alon Test Pass Oxygen Delivery Device Ventilator Bedside Oxygen Rate (breaths/min) 18 Blood Gas Minute Ventilation 8.5 Bedside FiO2 40 % Blood Gas Tidal Volume 500 Blood Gas PEEP 5 Diagnostic Results Radiological imaging and reports were reviewed by myself. Radiologist's Interpretation as follows: CHEST ONE VIEW PORTABLE HISTORY: 57 years-old Female Evaluate Fever/Sepsis acute fever and sepsis with lethargy COMPARISON: Chest radiograph 10/07/2017 TECHNIQUE: Portable AP view of the chest FINDINGS: Cardiac silhouette is again enlarged. Pulmonary vascular congestion with bilateral multifocal multilobar mixed interstitial and alveolar opacities within a perihilar and bibasilar distribution, right greater than left. Small bilateral pleural effusions. There is no pneumothorax. Bones of the chest appear grossly intact. IMPRESSION: 1. Cardiomegaly with right greater than left bilateral mixed interstitial and alveolar opacities suggesting asymmetric pulmonary edema and/or pneumonia. 2. Small bilateral pleural effusions. CHEST ONE VIEW PORTABLE CLINICAL HISTORY: 57 years-old Female presenting with s/p intubation. TECHNIQUE: Portable supine AP view of the chest was obtained. COMPARISON: 02/01/2018. FINDINGS: The patient is MANDEL rotated. Endotracheal tube terminates in the mid thoracic trachea over 3 cm from the chanel. Atherosclerosis of the aortic arch. Cardiac silhouette moderately enlarged. Persistent left basilar opacity. Prominence of perihilar vasculature. Small right and moderate left pleural effusions. No pneumothorax. Osseous structures normal. IMPRESSION: 1. Appropriately positioned endotracheal tube. 2. Cardiomegaly with suspected pulmonary edema. 3. Left basilar consolidation, possibly extensive atelectasis in the setting of moderate left pleural effusion versus underlying infection/pneumonia. 4. Small right pleural effusion. Assessment & Plan (1) UTI (urinary tract infection) (2) Pneumonia (3) Acute on chronic respiratory failure with hypoxia and hypercapnia (4) Chronic obstructive lung disease (5) Coronary atherosclerosis of [place] coronary vessel (6) Asthma (7) DM type 2 (diabetes mellitus, type 2) (8) Hypothyroidism (9) Hyponatremia Reason Critically Ill: 57-year-old female with acute on chronic hypercapnic respiratory failure with hypoxia secondary to developing pneumonia requiring intubation with mechanical ventilation and aggressive antibiotic therapies. Neuro - * CAM ICU: POSITIVE * RASS: 0 (zero) * Sedation: Precedex w/ PRN Fentanyl pushes Cardiac - * h/o CAD w/ PTCA w/ ISABEL to the RCA in 2012: * Initial Troponin negative. Agree with trending in the setting of stress. * EKG: NSR 69bpm, QTc 409ms. No ST/T-wave changes. * Continue with home Rx as able. * Monitor on Tele. Respiratory - * Acute on chronic hypercapnic respiratory failure with hypoxia: * Wean mechanical ventilatory support as tolerated. * Serial ABGs as pt w/ CO2 >100 initially. Suspect a chronic element, however. * Aggressive Nebs/Abx/Steroids GI - * Prophylaxis: Protonix * NPO initially. * No OG tube presently. Will refrain overnight and see if pt is able to be extubated in the AM. If not, would recommend OG placement. RENAL/LYTES - * Hyponatremia: * Continue w/ IVF to slowly raise sodium levels. * Hyperkalemia: * Anticipate response to IVF. * No EKG changes noted. Pt w/ good renal function. Will hold off correcting at this point. - * UTI on Cath urine: * Currently covered with Abx. ENDO - * DMII: * ISS currently. * gtt per protocol, especially in the setting of high dose steroids. * Hypothyroidism: * Continue Rx. HEME - * Stable H&H - will monitor. ID - * Pneumonia/UTI: * Blood cultures pending. * ProCal/Lactic initially negative - will repeat. * Continue Vanc/Zosyn/Levaquin in the acutely ill pt. LINES/IV ACCESS - * PIVs intact. * Hyde Catheter. DVT PROPHYLAXIS - * Lovenox I have personally spent 35 minutes of critical care time in the direct management of this patient. This is a life/limb threatening event. This includes time spent evaluating patient, direct bedside care, chart review, placing orders, interpretation of diagnostic studies, discussion with consultants, patient, and family members, as well as other required patient management activities. This time is exclusive of all separately billable procedures, and teaching time and separate from and in addition to any other critical care service time. Thank you for this consultation allow us to be part of this patient's care. Please refer to my attending physician's documentation for any further recommendations.
--- NOTE | 2018-02-01 20:54 | Pharmacy Progress Note ---
Pharmacy Antibiotic Consult Date of Service: Feb 01, 2018. Pharmacy Dosing Scope Pharmacy is consulted by Dr. Mena to initiate Vancomycin, Levaquin and Cefepime IV dosing therapy, order appropriate labs and adjust drug dose/ frequency. Subjective The patient is a 57 year old female admitted on Feb 01, 2018 at 17:51. Objective Height (Feet): 5 Height (Inches): 2.00 Weight (Kilograms): 139.300 Lab Results (24hrs): Test 02/01/18 14:40 02/01/18 15:09 02/01/18 15:50 02/01/18 17:03 White Blood Count 7.59 K/uL (4.8-10.8) Red Blood Count 3.61 M/uL (4.2-5.4) Hemoglobin 11.8 g/dL (12.0-16.0) Hematocrit 35.6 % (37-47) Mean Corpuscular Volume 98.6 fL (80-100) Mean Corpuscular Hemoglobin 32.7 pg (25-34) Mean Corpuscular Hemoglobin Concent 33.1 g/dl (32-36) Platelet Count 208 K/uL (130-400) Mean Platelet Volume 8.3 fL (7.4-10.4) Neutrophils (%) (Auto) 70.6 % Lymphocytes (%) (Auto) 19.2 % Monocytes (%) (Auto) 6.3 % Eosinophils (%) (Auto) 3.3 % Basophils (%) (Auto) 0.1 % Neutrophils # (Auto) 5.35 K/uL (1.4-6.5) Lymphocytes # (Auto) 1.46 K/uL (1.2-3.4) Monocytes # (Auto) 0.48 K/uL (0.11-0.59) Eosinophils # (Auto) 0.25 K/uL (0-0.5) Basophils # (Auto) 0.01 K/uL (0-0.2) RDW Standard Deviation 49.5 fL (36.4-46.3) RDW Coefficient of Variation 13.8 % (11.5-14.5) Immature Granulocyte % (Auto) 0.5 % Immature Granulocyte # (Auto) 0.04 K/uL (0.00-0.02) Prothrombin Time 9.9 SECONDS (9.0-12.0) Prothromb Time International Ratio 0.9 (0.9-1.1) Activated Partial Thromboplast Time 30.7 SECONDS (21.0-31.0) Partial Thromboplastin Ratio 1.2 Sodium Level 124 mmol/L (136-145) Potassium Level 5.2 mmol/L (3.5-5.1) Chloride Level 84 mmol/L (98-107) Carbon Dioxide Level 39 mmol/L (21-32) Anion Gap 1.0 mmol/L (3-11) Blood Urea Nitrogen 10 mg/dl (7-18) Creatinine 0.37 mg/dl (0.60-1.20) Estimated GFR () 136.5 Estimated GFR (Non- 117.8 BUN/Creatinine Ratio 27.6 (10-20) Random Glucose 110 mg/dl (70-99) Calcium Level 8.7 mg/dl (8.5-10.1) Total Bilirubin 0.3 mg/dl (0.2-1) Direct Bilirubin < 0.1 mg/dl (0-0.2) Aspartate Amino Transf (AST/SGOT) 26 U/L (15-37) Alanine Aminotransferase (ALT/SGPT) 41 U/L (12-78) Alkaline Phosphatase 99 U/L (45-117) Total Creatine Kinase 111 U/L (26-192) Troponin I < 0.015 ng/ml (0-0.045) Pro-B-Type Natriuretic Peptide 940 pg/ml (0-900) Total Protein 7.6 gm/dl (6.4-8.2) Albumin 3.0 gm/dl (3.4-5.0) Lipase 103 U/L (73-393) Procalcitonin 0.05 ng/ml (0-0.5) Venous Blood pH 7.18 (7.36-7.41) Venous Blood Partial Pressure CO2 117 mmHg (38.0-50.0) Venous Blood Partial Pressure O2 40 mmHg Venous Blood HCO3 43 mmol/L Venous Blood Oxygen Saturation 70.8 % Venous Blood Base Excess 9.8 mEq/L Lactic Acid Level 0.6 mmol/L (0.4-2.0) Ammonia 58.6 umol/L (11-32) Influenza Type A Antigen Neg for Influ A (NEG) Influenza Type B Antigen Neg for Influ B (NEG) Bedside Lactic Acid Arterial 0.43 mmol/L (0.36-1.25) Test 02/01/18 17:17 02/01/18 17:50 02/01/18 17:58 02/01/18 19:30 Bedside Blood Gas pH (LAB) 7.22 (7.35-7.45) Bedside Blood Gas pCO2 (LAB) > 115 mmHg (35-46) Bedside Blood Gas pO2 (LAB) 69 mmHg (80-95) Bedside Blood Gas HCO3 (LAB) 47 meq/L (19-24) Bedside Blood Gas Total CO2 < 5 mEq/l (24-31) Bedside Blood Gas Base Excess (LAB) 19.0 meq/L (-9-1.8) Bedside Blood Gas O2 Saturation 87.0 % (90-95) Urine Color YELLOW Urine Appearance CLOUDY (CLEAR) Urine pH 5.5 (4.5-7.5) Urine Specific [place] 1.010 (1.000-1.030) Urine Protein NEG (NEG) Urine Glucose (UA) NEG (NEG) Urine Ketones NEG (NEG) Urine Occult Blood 1+ (NEG) Urine Nitrite POS (NEG) Urine Bilirubin NEG (NEG) Urine Urobilinogen NEG (NEG) Urine Leukocyte Esterase LARGE (NEG) Urine WBC (Auto) >30 /hpf (0-5) Urine RBC (Auto) 0-4 /hpf (0-4) Urine Hyaline Casts (Auto) 0 /lpf (0-5) Urine Epithelial Cells (Auto) 20-30 /lpf (0-5) Urine Bacteria (Auto) 2+ (NEG) Urine Crystals AMORPHOUS SEDIMENT (NONE Urine Pathogenic Casts /lpf (0) Venous Blood pH 7.25 (7.36-7.41) Venous Blood Partial Pressure CO2 98 mmHg (38.0-50.0) Venous Blood Partial Pressure O2 41 mmHg Venous Blood HCO3 42 mmol/L Venous Blood Oxygen Saturation 74.3 % Venous Blood Base Excess 11.0 mEq/L Bedside Glucose 145 mg/dl (70-90) Test 02/01/18 19:49 Blood Gas Sample Site R Radial Bedside Blood Gas pH (LAB) 7.35 (7.35-7.45) Bedside Blood Gas pCO2 (LAB) 77 mmHg (35-46) Bedside Blood Gas pO2 (LAB) 64 mmHg (80-95) Bedside Blood Gas HCO3 (LAB) 42 meq/L (19-24) Bedside Blood Gas Total CO2 > 40 mEq/l (24-31) Bedside Blood Gas Base Excess (LAB) 16.0 meq/L (-9-1.8) Bedside Blood Gas O2 Saturation 89.0 % (90-95) Alon Test Pass Oxygen Delivery Device Ventilator Bedside Oxygen Rate (breaths/min) 18 Blood Gas Minute Ventilation 8.5 Bedside FiO2 40 % Blood Gas Tidal Volume 500 Blood Gas PEEP 5 Assessment & Plan Assessment 57 year old [facility] resident found unresponsive. Pt on 2L of oxygen at home. Vancomycin, Levaquin and Cefepime dosing per pharmacy for pneumonia. * Significant PMH: DM, COPD * Renal function at baseline * MRSA nasal swab pending * Blood and urine cultures pending Plan Vancomycin * Loading dose: 2000mg (15mg/kg) x 1 * Maintenance dose: 1750mg (12.6mg/kg) IV q 8 hours * Pt BMI >35 so a less than usual dose/kg selected * Goal trough for pneumonia: 15-20 mcg/mL * Trough level ordered for 02/02 @2330 Cefepime * 2 gm IV q 12 hours Levaquin * 750mg IV q 24 hours Pharmacy will continue to follow and will adjust dose/frequency as necessary. Thank you
[2018-02-01] MEDS ORDERED: ENOXAPARIN 40 MG/0.4 ML SYR SQ SCH (21:00)
[2018-02-01 21:01] LABS: INFLUENZA A PCR Neg for Influ A (NEG); INFLUENZA B PCR Neg for Influ B (NEG)
--- NOTE | 2018-02-01 21:25 | Pharmacy Progress Note ---
Glycemic: Assessment & Plan Date of Service Feb 01, 2018. Assessment & Plan Item Value Date Time Hemoglobin A1c 5.8 % H 12/01/17 0415 Random Glucose 110 mg/dl H 02/01/18 1440 Bedside Glucose 145 mg/dl H 02/01/18 1930 Reported Diabetes Regimen ([facility]) * Lantus 55 units sq qAM--I spoke with [facility], this was administered this am * Humalog 20 units TIDm--I spoke with [facility], she did not eat or receive this today. In-pt regimen: * Basal insulin: Starting 3/8-am, start Lantus 25 units sub-q every 12 hours * Correctional Insulin: Novolog Correction per scale q 6 hours Goal Range: Low 140 mg/dL - High 180 mg/dL Correction Factor: 20 mg/dL/unit * Prandial insulin: Per carb ratio of 1 unit per 10 grams CHO consumed Pharmacy will continue to monitor patient daily and write orders per formerly [facility] inpatient glycemic control protocol. Thanks. * Please note that the plan above was derived based on current level of insulin resistance and hospital stress. These recommendations are appropriate for inpatient admission only. Plan of care upon discharge will need to be reassessed to avoid potential outpatient hypo/hyperglycemia.
[2018-02-01] MEDS ORDERED: GLUCOSE 10 TABS/TUBE PO PRN (21:30)
[2018-02-01] MEDS ORDERED: GLUCAGON FOR INJ 1 MG VIAL SQ PRN (21:30)
[2018-02-01] MEDS ORDERED: DEXTROSE 50% 50 ML SYR IV PRN (21:30)
[2018-02-01] MEDS ORDERED: GLUCOSE 40% GEL 15 GM TUBE PO PRN (21:30)
[2018-02-01] MEDS: ALBUTEROL HFA 8 GM INHALER INH SCH (22:00)
[2018-02-01 22:54] LABS: CALCIUM 9.1 mg/dl (8.5-10.1); CREATININE 0.44 mg/dl (0.60-1.20); POTASSIUM 4.5 mmol/L (3.5-5.1)
[2018-02-01] MEDS ORDERED: VANCOMYCIN TROUGH ONE (23:30)
[2018-02-02] VITALS (32 sets, daily range): BP systolic 122–194; BP diastolic 45–82; PULSE 49–58; TEMP 36.3–36.9; O2SAT 87–97; Ht 157.5 cm; Wt 130.9 kg
[2018-02-02] MEDS ORDERED: VANCOMYCIN INJ 1,750 MG in SODIUM CHLORIDE 0.9% 500ML 500 ML IV SCH ×2
[2018-02-02] MEDS: DexMEDEtomidine HCL IV 400 MCG in SODIUM CHLORIDE 0.9% 100ML 96 ML IV PRN ×5 (00:15→22:32)
[2018-02-02] MEDS ORDERED: CEFEPIME IV 2,000 MG in SYRINGE 7.5 ML IV SCH (02:00)
[2018-02-02] MEDS ORDERED: NORMOSOL R 1,000 ML IV SCH (04:15)
[2018-02-02] MEDS: METHYLPREDNISOLONE IV 40 MG in SYRINGE 0 ML IV SCH ×3 (04:26→20:05)
--- NOTE | 2018-02-02 04:56 | Procedure Note ---
Procedure Note Procedure Date Feb 02, 2018. (Gary Enriquez PA-C) Procedure Description Procedure Name: Arterial Line Straight Stick Procedure time out: side/site verified Consent obtained: emergent consent implied Performed by: physician engineering lab technician Indications: diagnostic, therapeutic Contraindications: none Description: Procedure: Arterial Straight Stick Attending: Dr. Benoit APC: Gary Enriquez PA-C Indication: Monitoring on Vent Anesthesia: None A time-out was completed verifying correct patient, procedure, site, positioning , and implant(s) or special equipment if applicable. Alon's test was performed to ensure adequate perfusion. Patient's LEFT wrist was prepped and draped in the usual sterile fashion. Ultrasound guidance was used to aid needle placement. An arterial needle was introduced into the LEFT artery with good blood return. The patient tolerated the procedure well. Needle was withdrawn and wrist was dressed with Coban tape. Blood Loss: Minimal Complications: None Procedural Ultrasound Guidance: Procedure Date: 02/02/2018 Indication: Difficult arterial stick. Attending: Dr. Benoit APC: Gary Enriquez PA-C Artery Identified: YES Complications: NONE Patient tolerated procedure: WELL Complications: none Patient tolerated procedure: well Post-procedure vital signs: reviewed and stable (Gary Enriquez PA-C)
[2018-02-02 05:46] LABS: BASO % 0.1 %; BASO ABS # 0.01 K/uL (0-0.2); EOS % 0.1 %; EOS ABS # 0.01 K/uL (0-0.5); HEMATOCRIT 36.9 % (37-47); HEMOGLOBIN 12.3 g/dL (12.0-16.0); IG# 0.03 K/uL (0.00-0.02); LYMPH % 7.1 %; LYMPH ABS # 0.62 K/uL (1.2-3.4); MEAN CELL VOLUME 95.1 fL (80-100); MEAN CORPUSCULAR HEMOGLOBIN 31.7 pg (25-34); MEAN CORPUSCULAR HGB CONC 33.3 g/dl (32-36); MEAN PLATELET VOLUME 8.2 fL (7.4-10.4); MONO % 4.7 %; MONO ABS # 0.41 K/uL (0.11-0.59); NEUT % 87.7 %; NEUT ABS # 7.71 K/uL (1.4-6.5); PLATELET COUNT 183 K/uL (130-400); RED CELL DISTRIBUTION WIDTH CV 13.6 % (11.5-14.5); RED CELL DISTRIBUTION WIDTH SD 46.6 fL (36.4-46.3); WHITE BLOOD COUNT 8.79 K/uL (4.8-10.8)
[2018-02-02] MEDS ORDERED: CEFEPIME IV 2,000 MG in DEXTROSE 5% 100ML 100 ML IV SCH (06:00)
[2018-02-02] MEDS: INSULIN ASPART 100 UNITS/ML 3 ML PEN SC SCH ×5 (06:00→20:11)
[2018-02-02] MEDS: CEFEPIME IV 2,000 MG in SYRINGE 7.5 ML IV SCH ×2 (06:20→16:53)
[2018-02-02 06:25] LABS: BLOOD UREA NITROGEN 11 mg/dl (7-18); CALCIUM 8.8 mg/dl (8.5-10.1); CARBON DIOXIDE 36 mmol/L (21-32); CREATININE 0.41 mg/dl (0.60-1.20); GLUCOSE 157 mg/dl (70-99); POTASSIUM 4.4 mmol/L (3.5-5.1); SODIUM 128 mmol/L (136-145)
--- NOTE | 2018-02-02 07:12 | DIAGNOSTIC IMAGING REPORT ---
CHEST ONE VIEW PORTABLE CLINICAL HISTORY: respiratory failure dyspnea COMPARISON STUDY: 02/01/2018 FINDINGS: Cardiomegaly with mildly diminished from the prior exam. Endotracheal tube 4 cm above the chanel. Findings of pulmonary edema stable to slightly improved. Slight improvement in visibility of the cardiac margins. IMPRESSION: Slight radiographic improvement of findings of pulmonary edema. Endotracheal tube 4 cm above the chanel. The above report was generated using voice recognition software. It may contain grammatical, syntax or spelling errors. Electronically signed by: Harvey Blevins M.D. 02/02/2018 7:11 AM Dictated Date/Time: 02/02/2018 7:09 AM
[2018-02-02] MEDS: ALBUTEROL HFA 8 GM INHALER INH SCH ×4 (07:40→20:12)
[2018-02-02 09:00] LABS: HEMOGLOBIN A1C 5.6 % (4.5-5.6)
[2018-02-02] MEDS ORDERED: FUROSEMIDE INJ 40 MG in SYRINGE 0 ML IV ONE (09:00)
[2018-02-02] MEDS ORDERED: INSULIN GLARGINE SOLOSTAR 100 UNITS/ML 3 ML PEN SC SCH ×2 (09:00)
[2018-02-02] MEDS: PANTOprazole INJ 40 MG in SYRINGE 0 ML IV SCH (09:14)
[2018-02-02] MEDS: VANCOMYCIN INJ 1,500 MG in SODIUM CHLORIDE 0.9% 500ML 500 ML IV SCH ×2 (09:15→19:12)
[2018-02-02] MEDS ORDERED: PERFLUTREN LIPID MICROSPHERE (DEFINITY) IV ONE (09:25)
[2018-02-02] MEDS: ENOXAPARIN 40 MG/0.4 ML SYR SQ SCH ×2 (09:27→20:10)
--- NOTE | 2018-02-02 13:12 | Pharmacy Progress Note ---
Pharmacy Abx Dose Short Note Date of Service Feb 02, 2018. Assessment & Plan Assessment/Plan * 57 year old female admitted yesterday evening for lethargy, confusion and hypoxemia at detention. Patient was found to have hypoxemic hypercapnic resp failure and was emergently intubated. * Broad spectrum abx initiated for pneumonia with risk factors for resistance ( detention, h/o DM and COPD): Vancomycin + Levofloxacin + Cefepime * Patient remains on mech vent this AM, receiving high dose IV steroids * CXR read as cardiomegaly w/ suspected pulm edema and L basilar consolidation ( atelectasis vs pneumonia) * Procal only 0.05; no leukocytosis noted on labs; remains afebrile * Urine growing e coli (sensitivities pending); nasal swab + MRSA Glycemic Control * Patient is known to the glycemic control service from prior admissions * Currently ordered: * Lantus 25 units SQ BID * Novolog ACHS: goal 140-180, CF 20, CR 10 * She remains NPO and on mechanical vent, however there are plans to try to extubate today * Planning a SQ regimen is challenging as high dose steroids and mech vent will increase insulin needs whereas NPO status may or may not decrease insulin needs * Current insulin doses are rather low compared to prior hospitalizations when receiving steroids * Plan: * Increase Lantus and dose per the following scale: 30 units if BSG less than 140; 40 units if BSG 140-180; 50 units if BSG above 180 * Change CF to 10mg/dL/unit * Change CR to 1 unit per 4gm CHO consumed if allowed to eat s/p extubation Vancomycin * 2000mg (15mg/kg) IV x 1 given last evening then started a dose of 1750 (12.6mg /kg) IV Q 8 hours * Pharmacy has dosed vancomycin for this patient in the past * Based upon past data with similar wt and renal fxn, it looks like a dose of 1500mg (10.7mg/kg) IV Q 10 hours would produce desired trough * Goal trough level for pulm infxn : 15 to 20 mcg/mL * Trough level ordered for: 02/03/18 w/ 3rd dose of new regimen Levofloxacin * eCrCl > 50cc/min * QTc 409 * Continue 750mg IV Q 24 hours Cefepime * eCrCl > 60 * Continue 2gm IV Q 12 hours Pharmacy will continue to follow and will adjust dose/frequency as necessary. Thank you.
--- NOTE | 2018-02-02 13:43 | Critical Care Progress Note ---
Critical Care Progress Note Date of Service Feb 02, 2018. Attending Dr. Benoit Subjective Awake and comfortable on the vent Was on CPAP with high pressure support for few hours, became tired, now back on AC Has a moderate amount of noe, loose, pulmonary secretions. Objective General: Morbidly obese female, intubated, NAD Heent: NC/AT Lung: Distant, coarse breath sounds Chest: Faint, healed/crusted lesions over the left anterior chest, not crossing the midline CVS:Distant S1S2, regular Abdomen: Obese, soft, non-tender Ext: Obese SHELL MOLDER: Follows commands, well coordinated, communicates well with yes/no answers Assessment & Plan Acute on chronic respiratory failure with hypoxia and hypercapnia Bronchitis, possible component of pulmonary edema Diastolic heart failure COPD Morbid obesity Liver cirrhosis DM2 CAD Smoker Plan: SHELL MOLDER:Sedation with Precedex Awake and comfortable Pulmonary: Continue vent support, not a candidate for extubation today Daily SBT Pulmonary toilet Abx Steroids and bronchodilators CVS: Diurese the patient. Continue ASA Remains HD stable, no need for pressor support ID: Empiric broad spectrum Abx for 48 hours. Consider de-escalation tomorrow Procalcitonin is negative F/u cultures No need to treat for shingles. Likely healed by now GI: Start tube feedings today She carries a dx of autoimmune liver cirrhosis (s/p biopsy in 2006), but her liver function seems quite acceptable. Endo: Adequate glycemic control Renal/metabolic: Maintain a negative balance Heme: Increase Lovenox to 40 mg bid for DVT prophylaxis. Check Xa levels Critical care time spent with the patient, reviewing chart, discussing with consultants, excluding procedures, greater than 45 minutes Data Medications: Current Inpatient Medications Medications (Trade) Dose Ordered Sig/Abdi Route Start Time Stop Time Status Last Admin Dose Admin Fentanyl Citrate (Fentanyl Inj) 25 mcg Q1H PRN IV 02/01/18 17:45 02/15/18 17:44 02/01/18 19:24 25 MCG Pantoprazole Sodium 40 mg/ Syringe 10 ml @ 5 mls/min DAILY IV 02/02/18 09:00 03/04/18 08:59 02/02/18 09:14 5 MLS/MIN Lorazepam (Ativan Inj) 1 mg Q2H PRN IV 02/01/18 18:00 03/03/18 17:59 Methylprednisolone Sodium Succinate 40 mg/Syringe 0.64 ml @ 1.5 mls/min Q8H IV 02/01/18 20:00 03/03/18 19:59 02/02/18 11:29 1.5 MLS/MIN Albuterol (Ventolin Hfa Inhaler) 6 puffs QIDR INH 02/01/18 20:00 03/03/18 19:59 02/01/18 22:00 6 PUFFS Miscellaneous Information (Consult) 1 ea UD PRN N/A 02/01/18 18:00 03/03/18 17:59 Levofloxacin 750 mg/Prmx 150 ml @ 100 mls/hr Q24H IV 02/02/18 17:00 02/08/18 16:59 Miscellaneous Information (Consult Glycemic Management Pharmacy) 1 ea UD PRN N/A 02/01/18 19:47 03/03/18 19:46 Cefepime HCl (Consult) 1 ea UD PRN N/A 02/01/18 19:45 03/03/18 19:44 Cefepime HCl 2000 mg/Syringe 20 ml @ 5 mls/min Q12H IV 02/02/18 06:00 02/08/18 17:59 02/02/18 06:20 5 MLS/MIN Levofloxacin (Consult) 1 ea UD PRN N/A 02/01/18 19:45 03/03/18 19:44 Glucose (Glucose 40% Gel) 15-30 GRAMS 15 GRAMS... UD PRN PO 02/01/18 21:30 03/03/18 21:29 Glucose (Glucose Chew Tab) 4-8 Tablets 4 Tabl... UD PRN PO 02/01/18 21:30 03/03/18 21:29 Dextrose (Dextrose 50% 50ML Syringe) 25-50ML OF 50% DW IV FOR... UD PRN IV 02/01/18 21:30 03/03/18 21:29 Glucagon (Glucagon Inj) 1 mg UD PRN SQ 02/01/18 21:30 03/03/18 21:29 Dexmedetomidine HCl 400 mcg/ Sodium Chloride 100 ml @ 0 mls/hr Q0M PRN IV 02/01/18 22:30 02/05/18 22:29 02/02/18 06:20 20 MLS/HR Vancomycin HCl 1500 mg/Sodium Chloride 530 ml @ 200 mls/hr Q10H IV 02/02/18 09:00 02/09/18 08:59 02/02/18 09:15 200 MLS/HR Insulin Aspart (novoLOG ASPART) SLIDING SCALE Q4 SC 02/02/18 12:00 03/04/18 11:59 02/02/18 11:29 1 UNITS Insulin Glargine (Lantus Solostar Pen) 30 units BID SC 02/02/18 09:00 03/04/18 08:59 02/02/18 09:17 30 UNITS Enoxaparin Sodium (Lovenox Inj) 40 mg Q12H SQ 02/02/18 09:00 03/03/18 20:59 02/02/18 09:27 40 MG Vital Signs: Date Time Temp Pulse Resp B/P (MAP) Pulse Ox O2 Delivery O2 Flow Rate FiO2 02/02/18 11:30 Mechanical Ventilator 50 02/02/18 11:30 36.7 52 20 122/45 (70) 94 Mechanical Ventilator 50 02/02/18 11:30 50 02/02/18 11:17 50 02/02/18 09:31 36.7 52 20 156/57 (90) 92 Mechanical Ventilator 40 02/02/18 09:30 40 02/02/18 08:00 Mechanical Ventilator 40 02/02/18 07:30 Mechanical Ventilator 50 02/02/18 07:30 36.7 54 20 155/55 (88) 93 Mechanical Ventilator 50 02/02/18 07:30 50 02/02/18 07:30 36.7 54 16 155/55 (88) 93 Mechanical Ventilator 50 02/02/18 07:20 50 02/02/18 05:29 50 02/02/18 05:01 49 16 153/63 (93) 94 Mechanical Ventilator 50 02/02/18 04:30 51 16 173/76 (108) 94 Mechanical Ventilator 50 02/02/18 04:00 94 Mechanical Ventilator 50 02/02/18 04:00 36.8 53 16 162/69 (100) 94 Mechanical Ventilator 50 02/02/18 04:00 50 02/02/18 03:31 51 16 166/72 (103) 94 Mechanical Ventilator 50 02/02/18 03:01 52 16 171/71 (104) 93 Mechanical Ventilator 50 02/02/18 02:30 54 16 176/75 (108) 95 Mechanical Ventilator 50 02/02/18 02:00 54 16 172/75 (107) 95 Mechanical Ventilator 50 02/02/18 01:56 50 18 01:30 54 16 168/75 (106) 94 Mechanical Ventilator 50 02/02/18 01:00 54 16 161/68 (99) 94 Mechanical Ventilator 50 02/02/18 00:30 36.9 55 16 172/72 (105) 95 Mechanical Ventilator 50 02/01/18 23:59 92 Mechanical Ventilator 50 02/01/18 23:59 50 02/01/18 23:15 50 02/01/18 23:00 50 02/01/18 22:00 55 20 190/80 (116) 97 Mechanical Ventilator 50 02/01/18 21:31 53 20 188/86 (120) 97 02/01/18 21:01 53 20 181/75 (110) 97 02/01/18 20:30 54 20 163/76 (105) 99 02/01/18 20:12 50 02/01/18 20:11 40 02/01/18 20:01 56 20 148/60 (89) 100 Mechanical Ventilator 50 02/01/18 20:00 50 02/01/18 20:00 Mask 40 02/01/18 19:31 59 20 105/68 (80) 97 02/01/18 19:02 58 18 98/57 (71) 96 02/01/18 18:54 37.1 59 18 122/69 96 Mechanical Ventilator 40 02/01/18 18:47 37.1 60 21 122/69 (86) 98 Mechanical Ventilator 40 02/01/18 18:13 63 22 152/75 98 Mechanical Ventilator 40 02/01/18 18:01 65 22 170/70 99 Mechanical Ventilator 40 02/01/18 17:49 70 19 170/70 99 Mechanical Ventilator 40 02/01/18 17:31 74 18 148/62 100 Mechanical Ventilator 02/01/18 17:25 60 02/01/18 17:12 96 02/01/18 17:09 69 18 126/56 99 Ambu-Bag 15.0 02/01/18 16:58 36.5 02/01/18 16:54 62 14 147/62 86 BiPAP 50 02/01/18 15:45 88 CPAP 02/01/18 15:44 66 16 137/58 88 BiPAP 40 02/01/18 15:26 67 91 35 02/01/18 15:09 68 20 143/63 95 Nasal Cannula 6.0 02/01/18 15:08 69 Laboratory Results: Last 24 Hours Test 02/01/18 14:40 02/01/18 15:09 02/01/18 15:50 02/01/18 17:03 White Blood Count 7.59 K/uL Red Blood Count 3.61 M/uL Hemoglobin 11.8 g/dL Hematocrit 35.6 % Mean Corpuscular Volume 98.6 fL Mean Corpuscular Hemoglobin 32.7 pg Mean Corpuscular Hemoglobin Concent 33.1 g/dl Platelet Count 208 K/uL Mean Platelet Volume 8.3 fL Neutrophils (%) (Auto) 70.6 % Lymphocytes (%) (Auto) 19.2 % Monocytes (%) (Auto) 6.3 % Eosinophils (%) (Auto) 3.3 % Basophils (%) (Auto) 0.1 % Neutrophils # (Auto) 5.35 K/uL Lymphocytes # (Auto) 1.46 K/uL Monocytes # (Auto) 0.48 K/uL Eosinophils # (Auto) 0.25 K/uL Basophils # (Auto) 0.01 K/uL RDW Standard Deviation 49.5 fL RDW Coefficient of Variation 13.8 % Immature Granulocyte % (Auto) 0.5 % Immature Granulocyte # (Auto) 0.04 K/uL Prothrombin Time 9.9 SECONDS Prothromb Time International Ratio 0.9 Activated Partial Thromboplast Time 30.7 SECONDS Partial Thromboplastin Ratio 1.2 Sodium Level 124 mmol/L Potassium Level 5.2 mmol/L Chloride Level 84 mmol/L Carbon Dioxide Level 39 mmol/L Anion Gap 1.0 mmol/L Blood Urea Nitrogen 10 mg/dl Creatinine 0.37 mg/dl Estimated GFR () 136.5 Estimated GFR (Non- 117.8 BUN/Creatinine Ratio 27.6 Random Glucose 110 mg/dl Calcium Level 8.7 mg/dl Total Bilirubin 0.3 mg/dl Direct Bilirubin < 0.1 mg/dl Aspartate Amino Transf (AST/SGOT) 26 U/L Alanine Aminotransferase (ALT/SGPT) 41 U/L Alkaline Phosphatase 99 U/L Total Creatine Kinase 111 U/L Troponin I < 0.015 ng/ml Pro-B-Type Natriuretic Peptide 940 pg/ml Total Protein 7.6 gm/dl Albumin 3.0 gm/dl Lipase 103 U/L Procalcitonin 0.05 ng/ml Venous Blood pH 7.18 Venous Blood Partial Pressure CO2 117 mmHg Venous Blood Partial Pressure O2 40 mmHg Venous Blood HCO3 43 mmol/L Venous Blood Oxygen Saturation 70.8 % Venous Blood Base Excess 9.8 mEq/L Lactic Acid Level 0.6 mmol/L Ammonia 58.6 umol/L Influenza Type A Antigen Neg for Influ A Influenza Type B Antigen Neg for Influ B Bedside Lactic Acid Arterial 0.43 mmol/L Test 02/01/18 17:17 02/01/18 17:50 02/01/18 17:58 02/01/18 19:30 Bedside Blood Gas pH (LAB) 7.22 Bedside Blood Gas pCO2 (LAB) > 115 mmHg Bedside Blood Gas pO2 (LAB) 69 mmHg Bedside Blood Gas HCO3 (LAB) 47 meq/L Bedside Blood Gas Total CO2 < 5 mEq/l Bedside Blood Gas Base Excess (LAB) 19.0 meq/L Bedside Blood Gas O2 Saturation 87.0 % Urine Color YELLOW Urine Appearance CLOUDY Urine pH 5.[address] [place] 1.010 Urine Protein NEG Urine Glucose (UA) NEG Urine Ketones NEG Urine Occult Blood 1+ Urine Nitrite POS Urine Bilirubin NEG Urine Urobilinogen NEG Urine Leukocyte Esterase LARGE Urine WBC (Auto) >30 /hpf Urine RBC (Auto) 0-4 /hpf Urine Hyaline Casts (Auto) 0 /lpf Urine Epithelial Cells (Auto) 20-30 /lpf Urine Bacteria (Auto) 2+ Urine Crystals AMORPHOUS SEDIMENT Urine Pathogenic Casts /lpf Venous Blood pH 7.25 Venous Blood Partial Pressure CO2 98 mmHg Venous Blood Partial Pressure O2 41 mmHg Venous Blood HCO3 42 mmol/L Venous Blood Oxygen Saturation 74.3 % Venous Blood Base Excess 11.0 mEq/L Bedside Glucose 145 mg/dl Influenza Type A (RT-PCR) Neg for Influ A Influenza Type B (RT-PCR) Neg for Influ B Test 02/01/18 19:49 02/01/18 22:05 02/01/18 23:34 02/01/18 23:59 Blood Gas Sample Site R Radial L Radial Bedside Blood Gas pH (LAB) 7.35 7.47 Bedside Blood Gas pCO2 (LAB) 77 mmHg 57 mmHg Bedside Blood Gas pO2 (LAB) 64 mmHg 71 mmHg Bedside Blood Gas HCO3 (LAB) 42 meq/L 41 meq/L Bedside Blood Gas Total CO2 > 40 mEq/l > 40 mEq/l Bedside Blood Gas Base Excess (LAB) 16.0 meq/L 17.0 meq/L Bedside Blood Gas O2 Saturation 89.0 % 94.0 % Alon Test Pass Pass Oxygen Delivery Device Ventilator Ventilator Bedside Oxygen Rate (breaths/min) 18 20 Blood Gas Minute Ventilation 8.5 8.6 Bedside FiO2 40 % 50 % Blood Gas Tidal Volume 500 450 Blood Gas PEEP 5 5 Sodium Level 125 mmol/L Potassium Level 4.5 mmol/L Chloride Level 84 mmol/L Carbon Dioxide Level 37 mmol/L Anion Gap 4.0 mmol/L Blood Urea Nitrogen 11 mg/dl Creatinine 0.44 mg/dl Est Creatinine Clear Calc Drug Dose 188.7 ml/min Estimated GFR () 129.0 Estimated GFR (Non- 111.3 BUN/Creatinine Ratio 24.2 Random Glucose 149 mg/dl Calcium Level 9.1 mg/dl Bedside Glucose 164 mg/dl Test 02/02/18 00:15 02/02/18 05:21 02/02/18 05:30 02/02/18 05:51 Vancomycin Level Trough 9.7 mcg/ml Blood Gas Sample Site L Radial Bedside Blood Gas pH (LAB) 7.43 Bedside Blood Gas pCO2 (LAB) 59 mmHg Bedside Blood Gas pO2 (LAB) 66 mmHg Bedside Blood Gas HCO3 (LAB) 39 meq/L Bedside Blood Gas Total CO2 > 40 mEq/l Bedside Blood Gas Base Excess (LAB) 15.0 meq/L Bedside Blood Gas O2 Saturation 93.0 % Alon Test Pass Oxygen Delivery Device Ventilator Bedside Oxygen Rate (breaths/min) 16 Blood Gas Minute Ventilation 6.9 Bedside FiO2 50 % Blood Gas Tidal Volume 450 Blood Gas PEEP 5 White Blood Count 8.79 K/uL Red Blood Count 3.88 M/uL Hemoglobin 12.3 g/dL Hematocrit 36.9 % Mean Corpuscular Volume 95.1 fL Mean Corpuscular Hemoglobin 31.7 pg Mean Corpuscular Hemoglobin Concent 33.3 g/dl Platelet Count 183 K/uL Mean Platelet Volume 8.2 fL Neutrophils (%) (Auto) 87.7 % Lymphocytes (%) (Auto) 7.1 % Monocytes (%) (Auto) 4.7 % Eosinophils (%) (Auto) 0.1 % Basophils (%) (Auto) 0.1 % Neutrophils # (Auto) 7.71 K/uL Lymphocytes # (Auto) 0.62 K/uL Monocytes # (Auto) 0.41 K/uL Eosinophils # (Auto) 0.01 K/uL Basophils # (Auto) 0.01 K/uL RDW Standard Deviation 46.6 fL RDW Coefficient of Variation 13.6 % Immature Granulocyte % (Auto) 0.3 % Immature Granulocyte # (Auto) 0.03 K/uL Sodium Level 128 mmol/L Potassium Level 4.4 mmol/L Chloride Level 86 mmol/L Carbon Dioxide Level 36 mmol/L Anion Gap 6.0 mmol/L Blood Urea Nitrogen 11 mg/dl Creatinine 0.41 mg/dl Est Creatinine Clear Calc Drug Dose 202.6 ml/min Estimated GFR () 132.0 Estimated GFR (Non- 113.9 BUN/Creatinine Ratio 27.1 Random Glucose 157 mg/dl Estimated Average Glucose 114 mg/dl Hemoglobin A1c 5.6 % Calcium Level 8.8 mg/dl Magnesium Level 1.9 mg/dl Ammonia 27.0 umol/L Troponin I < 0.015 ng/ml Pro-B-Type Natriuretic Peptide 892 pg/ml Thyroid Stimulating Hormone (TSH) 1.120 uIu/ml Bedside Glucose 147 mg/dl Test 02/02/18 12:55
[2018-02-02] MEDS ORDERED: PEPTAMEN INTENSE VHP 1000ML BAG NG PRN (14:15)
--- NOTE | 2018-02-02 14:30 | ECHOCARDIOGRAM REPORT ---
*NOTICE TO RECEIVING LIBERTARIAN AGENCY This information is strictly Confidential and protected under [place] law. [place] law prohibits you from making any further disclosure of this information unless further disclosure is expressly permitted by the written consent of the person to whom it pertains or is authorized by law. A general authorization for the release of medical or other information is not sufficient for this purpose. Hospital accepts no responsibility if the information is made available to any other person, INCLUDING THE PATIENT. Interpretation Summary * Name: JENNIFER LEVIN Study Date: 02/02/2018 07:32 AM BP: 155/55 mmHg * Patient Location: [facility] HR: 54 * : 1960 (M/d/yyyy) Gender: Female Height: 62 in * Age: 57 yrs Ethnicity: CA Weight: 307 lb * Ordering Physician: Pepito Mena MD * Performed By: Carmella Fink RDCS * * Reason For Study: Possible pulmonary edema * BSA: 2.3 m2 * -- Conclusions -- * This study is technically limited. * Grossly normal cardiac chamber sizes. * Grossly normal left ventricular systolic function. * Grossly normal cardiac valves. Procedure Details * A complete two-dimensional transthoracic echocardiogram was performed (2D, M-mode, Doppler and color flow Doppler). * A contrast injection of Definity was performed to improve assessment of LV function. * Contrast was injected into an intravenous site in the right arm. * One vial of Definity ultrasound contrast was diluted in normal saline to a total volume of 10 ml. A total of '2' ml of solution was administered during imaging. * Lot # [id number] of Definity utilized for procedure. * Expiration date 1 JAN 16. * The attending nurse who injected the contrast agent was Michel Comer RN. Left Ventricle * The left ventricle is grossly normal size. * Ejection Fraction = 55-60%. * The left ventricular ejection fraction is grossly normal. Right Ventricle * The right ventricle is not well visualized. * Grossly normal RV function. Atria * Grossly normal size. * Right atrium not well visualized. Mitral Valve * The mitral valve is grossly normal. * Significant mitral regurgitation is absent. Tricuspid Valve * The tricuspid valve is not well visualized, but is grossly normal. * Significant tricuspid regurgitation is absent. Aortic Valve * The aortic valve is not well visualized. * No hemodynamically significant valvular aortic stenosis. * There is no significant aortic regurgitation. MMode 2D Measurements and Calculations IVSd 0.75 cm LVIDd 6.4 cm LVIDs 4.5 cm LVPWd 0.90 cm IVS/LVPW 0.83 FS 29.9 % EDV(Teich) 208.1 ml ESV(Teich) 91.5 ml EF(Teich) 56.0 % EDV(cubed) 261.5 ml ESV(cubed) 89.9 ml EF(cubed) 65.6 % LV mass(C)d 217.2 grams LV mass(C)dI 94.7 grams/m\S\2 SV(Teich) 116.6 ml SI(Teich) 50.9 ml/m\S\2 SV(cubed) 171.6 ml SI(cubed) 74.8 ml/m\S\2 Ao root diam 2.5 cm Ao root area 5.0 cm\S\2 LA dimension 3.6 cm asc Aorta Diam 2.8 cm LA/Ao 1.4 LVOT diam 2.0 cm LVOT area 3.3 cm\S\2 LVAd ap4 27.1 cm\S\2 LVLd ap4 7.1 cm EDV(MOD-sp4) 83.9 ml EDV(sp4-el) 87.6 ml LVAs ap4 16.3 cm\S\2 LVLs ap4 6.3 cm ESV(MOD-sp4) 34.3 ml ESV(sp4-el) 35.5 ml EF(MOD-sp4) 59.1 % EF(sp4-el) 59.5 % LVAd ap2 22.2 cm\S\2 LVLd ap2 6.2 cm EDV(MOD-sp2) 64.9 ml EDV(sp2-el) 68.0 ml LVAs ap2 12.7 cm\S\2 LVLs ap2 5.0 cm ESV(MOD-sp2) 26.1 ml ESV(sp2-el) 27.2 ml EF(MOD-sp2) 59.7 % EF(sp2-el) 60.0 % LVLd %diff -14.84 % EDV(MOD-bp) 79.1 ml LVLs %diff -26.03 % ESV(MOD-bp) 33.3 ml EF(MOD-bp) 57.9 % SV(MOD-sp4) 49.6 ml SI(MOD-sp4) 21.6 ml/m\S\2 SV(MOD-sp2) 38.8 ml SI(MOD-sp2) 16.9 ml/m\S\2 SV(MOD-bp) 45.7 ml SI(MOD-bp) 19.9 ml/m\S\2 SV(sp4-el) 52.1 ml SI(sp4-el) 22.7 ml/m\S\2 SV(sp2-el) 40.8 ml SI(sp2-el) 17.8 ml/m\S\2 Doppler Measurements and Calculations MV E max imani 138.3 cm/sec MV A max imani 94.9 cm/sec MV E/A 1.5 MV dec time 0.16 sec Ao V2 max 165.1 cm/sec Ao max PG 10.9 mmHg Ao max PG (full) 6.5 mmHg DOROTHY(V,A) 2.1 cm\S\2 DOROTHY(V,D) 2.1 cm\S\2 LV V1 max PG 4.4 mmHg LV V1 max 104.7 cm/sec PA V2 max 141.2 cm/sec PA max PG 8.0 mmHg PA acc slope 1270.4 cm/sec\S\2 PA acc time 0.06 sec PI max imani 196.8 cm/sec PI max PG 15.5 mmHg PI dec slope 175.2 cm/sec\S\2 PI P1/2t 329.0 msec PA pr(Accel) 50.5 mmHg
--- NOTE | 2018-02-02 14:54 | DIAGNOSTIC IMAGING REPORT ---
KUB CLINICAL HISTORY: Enteric tube placement. FINDINGS: An AP, portable, supine view of the lower chest and upper abdomen is compared to study dated 10/07/2017 and correlated with abdominal CT dated 06/20/2017. An enteric tube projects below the diaphragm over the stomach. The tip of the tube is not visualized. The bowel gas pattern cannot be assessed as only the upper abdomen is included. Airspace consolidation is suggested at the lung bases and there are pleural effusions. IMPRESSION: An enteric tube projects below the diaphragm. Electronically signed by: Addison Connolly M.D. 02/02/2018 2:53 PM Dictated Date/Time: 02/02/2018 2:52 PM
[2018-02-02] MEDS: FENTANYL CITRATE INJ 50 MCG/1 ML 2 ML VIAL IV PRN ×2 (15:10→20:04)
[2018-02-02] MEDS ORDERED: CLOPIDOGREL BISULFATE 75 MG TAB PO ONE (16:45)
[2018-02-02] MEDS ORDERED: ASPIRIN 81 MG ECTAB PO SCH (16:45)
[2018-02-02] MEDS: LEVOFLOXACIN / D5W 750 MG in PREMIXED IN D5W 150 ML IV SCH (16:53)
[2018-02-02] MEDS: ASPIRIN 81 MG CHEW NG SCH (16:53)
[2018-02-02] MEDS: FUROSEMIDE INJ 40 MG in SYRINGE 0 ML IV SCH (19:12)
[2018-02-02] MEDS: GABAPENTIN 250 MG/5 ML 470 ML BTL NG SCH (20:05)
[2018-02-02] MEDS: INSULIN GLARGINE SOLOSTAR 100 UNITS/ML 3 ML PEN SC SCH (20:12)
[2018-02-02] MEDS: HydrALAZINE HCL 20 MG/ML VIAL IV. PRN (20:56)
--- NOTE | 2018-02-02 21:24 | Progress Note ---
Medicine Progress Note Date & Time of Visit: Feb 02, 2018 at 21:19. Subjective seen resting in bed, intubated but alert nods/shakes head to answer questions feels ok overall, no dyspnea, chest pain, no discomfort difficult to perform full ROS as patient is intubated Objective Last 8 Hrs Date Time Temp Pulse Resp B/P (MAP) Pulse Ox O2 Delivery O2 Flow Rate FiO2 02/02/18 20:12 50 02/02/18 20:00 Mechanical Ventilator 50 02/02/18 20:00 36.6 52 18 177/78 (111) 93 Mechanical Ventilator 50 02/02/18 20:00 50 02/02/18 18:19 50 02/02/18 18:00 54 21 183/75 (111) 94 Mechanical Ventilator 50 02/02/18 16:00 50 02/02/18 16:00 Mechanical Ventilator 50 02/02/18 16:00 36.3 55 18 176/75 (108) 96 Mechanical Ventilator 50 02/02/18 14:16 50 02/02/18 14:00 56 19 150/61 (90) 90 02/02/18 14:00 36.9 55 20 150/61 (90) 93 Mechanical Ventilator 50 02/02/18 13:24 58 24 146/60 (88) 87 Physical Exam: General- oriented x 3, not in distress, speaks in sentences with no effort Head- atraumatic Eyes- PERRL, EOMI, anicteric ENT- intubated Neck- supple, no JVD, no adenopathy, no thyromegaly Lungs- mild rhonchi at the bases Heart- regular rhythm; no murmur, normal rate Abdomen- normal bowel sounds, soft, nontender Extremities- no pretibial edema, no calf tenderness Neuro- alert, oriented x 3; no gross focal neuro deficits Skin- warm & dry Laboratory Results: Last 24 Hours Test 02/01/18 22:05 02/01/18 23:34 02/01/18 23:59 02/02/18 00:15 Sodium Level 125 mmol/L Potassium Level 4.5 mmol/L Chloride Level 84 mmol/L Carbon Dioxide Level 37 mmol/L Anion Gap 4.0 mmol/L Blood Urea Nitrogen 11 mg/dl Creatinine 0.44 mg/dl Est Creatinine Clear Calc Drug Dose 188.7 ml/min Estimated GFR () 129.0 Estimated GFR (Non- 111.3 BUN/Creatinine Ratio 24.2 Random Glucose 149 mg/dl Calcium Level 9.1 mg/dl Blood Gas Sample Site L Radial Bedside Blood Gas pH (LAB) 7.47 Bedside Blood Gas pCO2 (LAB) 57 mmHg Bedside Blood Gas pO2 (LAB) 71 mmHg Bedside Blood Gas HCO3 (LAB) 41 meq/L Bedside Blood Gas Total CO2 > 40 mEq/l Bedside Blood Gas Base Excess (LAB) 17.0 meq/L Bedside Blood Gas O2 Saturation 94.0 % Alon Test Pass Oxygen Delivery Device Ventilator Bedside Oxygen Rate (breaths/min) 20 Blood Gas Minute Ventilation 8.6 Bedside FiO2 50 % Blood Gas Tidal Volume 450 Blood Gas PEEP 5 Bedside Glucose 164 mg/dl Vancomycin Level Trough 9.7 mcg/ml Test 02/02/18 05:21 02/02/18 05:30 02/02/18 05:51 02/02/18 11:02 Blood Gas Sample Site L Radial Bedside Blood Gas pH (LAB) 7.43 Bedside Blood Gas pCO2 (LAB) 59 mmHg Bedside Blood Gas pO2 (LAB) 66 mmHg Bedside Blood Gas HCO3 (LAB) 39 meq/L Bedside Blood Gas Total CO2 > 40 mEq/l Bedside Blood Gas Base Excess (LAB) 15.0 meq/L Bedside Blood Gas O2 Saturation 93.0 % Alon Test Pass Oxygen Delivery Device Ventilator Bedside Oxygen Rate (breaths/min) 16 Blood Gas Minute Ventilation 6.9 Bedside FiO2 50 % Blood Gas Tidal Volume 450 Blood Gas PEEP 5 White Blood Count 8.79 K/uL Red Blood Count 3.88 M/uL Hemoglobin 12.3 g/dL Hematocrit 36.9 % Mean Corpuscular Volume 95.1 fL Mean Corpuscular Hemoglobin 31.7 pg Mean Corpuscular Hemoglobin Concent 33.3 g/dl Platelet Count 183 K/uL Mean Platelet Volume 8.2 fL Neutrophils (%) (Auto) 87.7 % Lymphocytes (%) (Auto) 7.1 % Monocytes (%) (Auto) 4.7 % Eosinophils (%) (Auto) 0.1 % Basophils (%) (Auto) 0.1 % Neutrophils # (Auto) 7.71 K/uL Lymphocytes # (Auto) 0.62 K/uL Monocytes # (Auto) 0.41 K/uL Eosinophils # (Auto) 0.01 K/uL Basophils # (Auto) 0.01 K/uL RDW Standard Deviation 46.6 fL RDW Coefficient of Variation 13.6 % Immature Granulocyte % (Auto) 0.3 % Immature Granulocyte # (Auto) 0.03 K/uL Sodium Level 128 mmol/L Potassium Level 4.4 mmol/L Chloride Level 86 mmol/L Carbon Dioxide Level 36 mmol/L Anion Gap 6.0 mmol/L Blood Urea Nitrogen 11 mg/dl Creatinine 0.41 mg/dl Est Creatinine Clear Calc Drug Dose 202.6 ml/min Estimated GFR () 132.0 Estimated GFR (Non- 113.9 BUN/Creatinine Ratio 27.1 Random Glucose 157 mg/dl Estimated Average Glucose 114 mg/dl Hemoglobin A1c 5.6 % Calcium Level 8.8 mg/dl Magnesium Level 1.9 mg/dl Ammonia 27.0 umol/L Troponin I < 0.015 ng/ml Pro-B-Type Natriuretic Peptide 892 pg/ml Thyroid Stimulating Hormone (TSH) 1.120 uIu/ml Bedside Glucose 147 mg/dl 163 mg/dl Test 02/02/18 13:16 02/02/18 15:36 02/02/18 20:07 Heparin Anti-Xa Act, Low Molec Wt 0.23 IU/ML Bedside Glucose 145 mg/dl 181 mg/dl Assessment & Plan ACUTE ON CHRONIC HYPOXIC + HYPERCAPNIC RESPIRATORY FAILURE Underlying COPD. Reported hypoxia at the [place] [facility]. Acute respiratory failure most likely secondary to pneumonia with underlying COPD, Pleural Effusion? Echo ordered -- on Vanco, Cefepime, Levaquin on Lasix BID Ventilator management per Critical Care Medicine. PROBABLE PNEUMONIA Chest x-ray demonstrates bilateral infiltrates, probable healthcare associated pneumonia. cultures pending ff up EXACERBATION COPD Probably secondary to pneumonia. Solumedrol, Nebs CORONARY ARTERY DISEASE Serum troponin normal. No acute EKG changes. Resume aspirin CIRRHOSIS History of cirrhosis. Records indicate history of autoimmune disease. May have ABDI as well. Serum ammonia 58. -- alert, follows simple commands ALTERED MENTAL STATUS May be multifactorial, combination of hypercapnia, metabolic encephalopathy, encephalopathy secondary to infection, possible hepatic encephalopathy. resolving DM TYPE 2 History of diabetes mellitus type 2 on insulin therapy. Random blood sugar in ED 110. Check hemoglobin A1c. Anticipate fluctuating blood sugars and weight of acute illness and steroid therapy. Pharmacy consult for glycemic management due to critical illness. HYPOTHYROIDISM TSH normal Levothyroxine ordered GI PROPHYLAXIS IV pantoprazole. VTE PROPHYLAXIS SQ enoxaparin. RESUSCITATION STATUS Patient's daughter was given updated by ED physician. She has a completed POLST form which indicates full resuscitation and aggressive treatment. DISPOSITION Anticipated return to [facility] if her condition improves. Current Inpatient Medications: Current Inpatient Medications Medications (Trade) Dose Ordered Sig/Abdi Route Start Time Stop Time Status Last Admin Dose Admin Fentanyl Citrate (Fentanyl Inj) 25 mcg Q1H PRN IV 02/01/18 17:45 02/15/18 17:44 02/02/18 20:04 25 MCG Pantoprazole Sodium 40 mg/ Syringe 10 ml @ 5 mls/min DAILY IV 02/02/18 09:00 03/04/18 08:59 02/02/18 09:14 5 MLS/MIN Lorazepam (Ativan Inj) 1 mg Q2H PRN IV 02/01/18 18:00 03/03/18 17:59 Methylprednisolone Sodium Succinate 40 mg/Syringe 0.64 ml @ 1.5 mls/min Q8H IV 02/01/18 20:00 03/03/18 19:59 02/02/18 20:05 1.5 MLS/MIN Albuterol (Ventolin Hfa Inhaler) 6 puffs QIDR INH 02/01/18 20:00 03/03/18 19:59 02/02/18 20:12 6 PUFFS Miscellaneous Information (Consult) 1 ea UD PRN N/A 02/01/18 18:00 03/03/18 17:59 Levofloxacin 750 mg/Prmx 150 ml @ 100 mls/hr Q24H IV 02/02/18 17:00 02/08/18 16:59 02/02/18 16:53 100 MLS/HR Miscellaneous Information (Consult Glycemic Management Pharmacy) 1 ea UD PRN N/A 02/01/18 19:47 03/03/18 19:46 Cefepime HCl (Consult) 1 ea UD PRN N/A 02/01/18 19:45 03/03/18 19:44 Cefepime HCl 2000 mg/Syringe 20 ml @ 5 mls/min Q12H IV 02/02/18 06:00 02/08/18 17:59 02/02/18 16:53 5 MLS/MIN Levofloxacin (Consult) 1 ea UD PRN N/A 02/01/18 19:45 03/03/18 19:44 Glucose (Glucose 40% Gel) 15-30 GRAMS 15 GRAMS... UD PRN PO 02/01/18 21:30 03/03/18 21:29 Glucose (Glucose Chew Tab) 4-8 Tablets 4 Tabl... UD PRN PO 02/01/18 21:30 03/03/18 21:29 Dextrose (Dextrose 50% 50ML Syringe) 25-50ML OF 50% DW IV FOR... UD PRN IV 02/01/18 21:30 03/03/18 21:29 Glucagon (Glucagon Inj) 1 mg UD PRN SQ 02/01/18 21:30 03/03/18 21:29 Dexmedetomidine HCl 400 mcg/ Sodium Chloride 100 ml @ 0 mls/hr Q0M PRN IV 02/01/18 22:30 02/05/18 22:29 02/02/18 20:15 41.7 MLS/HR Vancomycin HCl 1500 mg/Sodium Chloride 530 ml @ 200 mls/hr Q10H IV 02/02/18 09:00 02/09/18 08:59 02/02/18 19:12 200 MLS/HR Insulin Aspart (novoLOG ASPART) SLIDING SCALE Q4 SC 02/02/18 12:00 03/04/18 11:59 02/02/18 20:11 5 UNITS Enoxaparin Sodium (Lovenox Inj) 40 mg Q12H SQ 02/02/18 09:00 03/03/18 20:59 02/02/18 20:10 40 MG Insulin Glargine (Lantus Solostar Pen) See protocol text BID SC 02/02/18 21:00 03/04/18 20:59 02/02/18 20:12 50 UNITS Miscellaneous Information (Pending Order) 1 ea Q4 N/A 02/02/18 16:00 03/04/18 15:59 Furosemide 40 mg/ Syringe 4 ml @ 4 mls/min Q12H IV 02/02/18 20:00 03/04/18 19:59 02/02/18 19:12 4 MLS/MIN Enteral Nutritional Formula (Peptamen Intense VHP) 1,000 ml UD PRN NG 02/02/18 14:15 03/04/18 14:14 02/02/18 15:11 1,000 ML Levothyroxine Sodium (Synthroid Tab) 200 mcg DAILYBB PO 02/03/18 06:00 03/05/18 05:59 Clopidogrel Bisulfate (plAVix TAB) 75 mg QAM PO 02/03/18 09:00 03/05/18 08:59 Gabapentin (Neurontin) 100 mg TID NG 02/02/18 21:00 03/04/18 20:59 02/02/18 20:05 100 MG Citalopram Hydrobromide (celeXA TAB) 20 mg QAM PO 02/03/18 09:00 03/05/18 08:59 Aspirin (Aspirin Chew) 81 mg QAM NG 02/02/18 16:45 03/04/18 16:44 02/02/18 16:53 81 MG Hydralazine HCl (HydrALAZINE INJ) 10 mg Q4 PRN IV. 02/02/18 19:15 03/04/18 19:14 02/02/18 20:56 10 MG
[2018-02-03] VITALS (34 sets, daily range): BP systolic 107–183; BP diastolic 31–99; PULSE 46–66; TEMP 36.8–37.3; O2SAT 93–100
[2018-02-03] MEDS: INSULIN ASPART 100 UNITS/ML 3 ML PEN SC SCH ×6 (00:46→20:00)
[2018-02-03] MEDS: SODIUM CHLORIDE 0.9% IV PRN ×2 (02:39→06:20)
[2018-02-03] MEDS: DEXMEDETOMIDINE HCL IV PRN ×2 (02:39→06:20)
[2018-02-03] MEDS ORDERED: VANCOMYCIN TROUGH ONE (04:30)
[2018-02-03] MEDS: METHYLPREDNISOLONE IV 40 MG in SYRINGE 0 ML IV SCH ×3 (04:37→20:49)
[2018-02-03 05:29] LABS: BASO % 0.1 %; BASO ABS # 0.01 K/uL (0-0.2); EOS % 0.1 %; EOS ABS # 0.01 K/uL (0-0.5); HEMATOCRIT 38.3 % (37-47); HEMOGLOBIN 13.2 g/dL (12.0-16.0); IG# 0.04 K/uL (0.00-0.02); LYMPH % 13.1 %; LYMPH ABS # 1.09 K/uL (1.2-3.4); MEAN CELL VOLUME 92.5 fL (80-100); MEAN CORPUSCULAR HEMOGLOBIN 31.9 pg (25-34); MEAN CORPUSCULAR HGB CONC 34.5 g/dl (32-36); MEAN PLATELET VOLUME 8.4 fL (7.4-10.4); MONO % 6.8 %; MONO ABS # 0.57 K/uL (0.11-0.59); NEUT % 79.4 %; NEUT ABS # 6.62 K/uL (1.4-6.5); PLATELET COUNT 202 K/uL (130-400); RED CELL DISTRIBUTION WIDTH CV 13.8 % (11.5-14.5); RED CELL DISTRIBUTION WIDTH SD 46.4 fL (36.4-46.3); WHITE BLOOD COUNT 8.34 K/uL (4.8-10.8)
[2018-02-03 06:06] LABS: CREATININE 0.44 mg/dl (0.60-1.20)
[2018-02-03 06:07] LABS: CALCIUM 9.3 mg/dl (8.5-10.1); POTASSIUM 3.4 mmol/L (3.5-5.1)
[2018-02-03] MEDS: CEFEPIME IV 2,000 MG in SYRINGE 7.5 ML IV SCH ×2 (06:08→17:11)
[2018-02-03] MEDS: LEVOTHYROXINE 200 MCG TAB PO SCH (06:11)
[2018-02-03] MEDS: VANCOMYCIN INJ 1,500 MG in SODIUM CHLORIDE 0.9% 500ML 500 ML IV SCH (06:17)
[2018-02-03] MEDS: ALBUTEROL HFA 8 GM INHALER INH SCH ×2 (07:12→11:12)
--- NOTE | 2018-02-03 07:17 | DIAGNOSTIC IMAGING REPORT ---
CHEST ONE VIEW PORTABLE CLINICAL HISTORY: respiratory failure dyspnea COMPARISON STUDY: 02/02/2018 FINDINGS: Endotracheal tube remains 4 cm above the chanel. Slight progressive improvement of pulmonary edematous change. Mild improvement in aeration throughout the right hemithorax. Improved visibility right hemidiaphragm. Persistent consolidative change left base. General prominence of pulmonary vasculature is improved from the prior study. IMPRESSION: Congestive failure mildly improved from the prior exam. Persistent consolidative and/or effusion-type change left lung base. The above report was generated using voice recognition software. It may contain grammatical, syntax or spelling errors. Electronically signed by: Harvey Blevins M.D. 02/03/2018 7:16 AM Dictated Date/Time: 02/03/2018 7:15 AM
[2018-02-03] MEDS: PANTOprazole INJ 40 MG in SYRINGE 0 ML IV SCH (07:44)
[2018-02-03] MEDS: FUROSEMIDE INJ 40 MG in SYRINGE 0 ML IV SCH (07:45)
[2018-02-03] MEDS: HydrALAZINE HCL 20 MG/ML VIAL IV. PRN (07:45)
[2018-02-03] MEDS: ASPIRIN 81 MG CHEW NG SCH (07:48)
[2018-02-03] MEDS: CITALOPRAM 20 MG TAB PO SCH (07:48)
[2018-02-03] MEDS: CLOPIDOGREL BISULFATE 75 MG TAB PO SCH (07:48)
[2018-02-03] MEDS: ENOXAPARIN 40 MG/0.4 ML SYR SQ SCH (07:58)
[2018-02-03] MEDS: INSULIN GLARGINE SOLOSTAR 100 UNITS/ML 3 ML PEN SC SCH ×2 (08:03→20:56)
[2018-02-03] MEDS: GABAPENTIN 250 MG/5 ML 470 ML BTL NG SCH ×3 (09:42→20:52)
[2018-02-03] MEDS ORDERED: POTASSIUM CHLORIDE PWD 20 MEQ PACK PO ONE (10:00)
--- NOTE | 2018-02-03 10:14 | Progress Note ---
Medicine Progress Note Date & Time of Visit: Feb 03, 2018 at 10:14. Subjective delayed entry date of service as noted above patient intubated but awake , alert nods/shakes head to answer question denies pain comfortable overall no dyspnea Objective Last 8 Hrs Date Time Temp Pulse Resp B/P (MAP) Pulse Ox O2 Delivery O2 Flow Rate FiO2 02/03/18 09:30 37.2 48 19 130/47 (74) 98 Mechanical Ventilator 50 02/03/18 07:30 37.2 48 19 181/54 (96) 98 Mechanical Ventilator 50 02/03/18 07:30 50 02/03/18 07:30 Mechanical Ventilator 50 02/03/18 06:27 50 02/03/18 05:01 48 19 172/82 (112) 98 Mechanical Ventilator 50 02/03/18 04:01 36.8 48 20 182/78 (112) 98 Mechanical Ventilator 50 02/03/18 04:00 98 Mechanical Ventilator 50 02/03/18 04:00 50 02/03/18 04:00 50 02/03/18 03:01 49 19 183/93 (123) 98 Mechanical Ventilator 50 Physical Exam: General- oriented x 3, not in distress, speaks in sentences with no effort Eyes- anicteric ENT- intubated Neck- supple, no JVD Lungs- mild rhonchi at the bases, no wheezing Heart- regular rhythm; no murmur, normal rate Abdomen- normal bowel sounds, soft, nontender Extremities- no pretibial edema, no calf tenderness Neuro- alert, oriented x 3; no gross focal neuro deficits Skin- warm & dry Laboratory Results: Last 24 Hours Test 02/02/18 11:02 02/02/18 13:16 02/02/18 15:36 02/02/18 20:07 Bedside Glucose 163 mg/dl 145 mg/dl 181 mg/dl Heparin Anti-Xa Act, Low Molec Wt 0.23 IU/ML Test 02/02/18 23:26 02/02/18 23:36 02/03/18 04:07 02/03/18 04:48 Vancomycin Level Trough 29.7 mcg/ml Bedside Glucose 163 mg/dl 153 mg/dl Sodium Level 127 mmol/L Potassium Level 3.4 mmol/L Chloride Level 86 mmol/L Carbon Dioxide Level 34 mmol/L Anion Gap 7.0 mmol/L Blood Urea Nitrogen 16 mg/dl Creatinine 0.44 mg/dl Est Creatinine Clear Calc Drug Dose 189.3 ml/min Estimated GFR () 129.0 Estimated GFR (Non- 111.3 BUN/Creatinine Ratio 35.8 Random Glucose 173 mg/dl Calcium Level 9.3 mg/dl Magnesium Level 2.0 mg/dl Test 02/03/18 04:49 02/03/18 05:32 White Blood Count 8.34 K/uL Red Blood Count 4.14 M/uL Hemoglobin 13.2 g/dL Hematocrit 38.3 % Mean Corpuscular Volume 92.5 fL Mean Corpuscular Hemoglobin 31.9 pg Mean Corpuscular Hemoglobin Concent 34.5 g/dl Platelet Count 202 K/uL Mean Platelet Volume 8.4 fL Neutrophils (%) (Auto) 79.4 % Lymphocytes (%) (Auto) 13.1 % Monocytes (%) (Auto) 6.8 % Eosinophils (%) (Auto) 0.1 % Basophils (%) (Auto) 0.1 % Neutrophils # (Auto) 6.62 K/uL Lymphocytes # (Auto) 1.09 K/uL Monocytes # (Auto) 0.57 K/uL Eosinophils # (Auto) 0.01 K/uL Basophils # (Auto) 0.01 K/uL RDW Standard Deviation 46.4 fL RDW Coefficient of Variation 13.8 % Immature Granulocyte % (Auto) 0.5 % Immature Granulocyte # (Auto) 0.04 K/uL Vancomycin Level Trough 12.8 mcg/ml Assessment & Plan ACUTE ON CHRONIC HYPOXIC + HYPERCAPNIC RESPIRATORY FAILURE Underlying COPD. [facility] Acute respiratory failure most likely secondary to pneumonia with underlying COPD, Pleural Effusion? Echo: * -- Conclusions -- * This study is technically limited. * Grossly normal cardiac chamber sizes. * Grossly normal left ventricular systolic function. * Grossly normal cardiac valves. -- on Vanco, Cefepime, Levaquin on Lasix BID -- diuresing well Ventilator management per Critical Care Medicine. PROBABLE PNEUMONIA Chest x-ray demonstrates bilateral infiltrates, probable healthcare associated pneumonia. blood culture: negative nasal MRSA: positive continue antibiotics EXACERBATION COPD Probably secondary to pneumonia. Solumedrol, Nebs E COLI UTI sensitive to Cefepime monitor CORONARY ARTERY DISEASE Serum troponin normal. No acute EKG changes. Resume aspirin CIRRHOSIS History of cirrhosis. Records indicate history of autoimmune disease. May have ABDI as well. Serum ammonia 58. -- alert, follows simple commands ALTERED MENTAL STATUS May be multifactorial, combination of hypercapnia, metabolic encephalopathy, encephalopathy secondary to infection, possible hepatic encephalopathy. resolved DM TYPE 2 History of diabetes mellitus type 2 on insulin therapy. A1c 5.6 Pharmacy consult for glycemic management due to critical illness. HYPOTHYROIDISM TSH normal Levothyroxine ordered GI PROPHYLAXIS IV pantoprazole. VTE PROPHYLAXIS SQ enoxaparin. RESUSCITATION STATUS Patient's daughter was given updated by ED physician. She has a completed POLST form which indicates full resuscitation and aggressive treatment. DISPOSITION Anticipated return to [facility] upon discharge Current Inpatient Medications: Current Inpatient Medications Medications (Trade) Dose Ordered Sig/Abdi Route Start Time Stop Time Status Last Admin Dose Admin Fentanyl Citrate (Fentanyl Inj) 25 mcg Q1H PRN IV 02/01/18 17:45 02/15/18 17:44 02/02/18 20:04 25 MCG Pantoprazole Sodium 40 mg/ Syringe 10 ml @ 5 mls/min DAILY IV 02/02/18 09:00 03/04/18 08:59 02/03/18 07:44 5 MLS/MIN Lorazepam (Ativan Inj) 1 mg Q2H PRN IV 02/01/18 18:00 03/03/18 17:59 Methylprednisolone Sodium Succinate 40 mg/Syringe 0.64 ml @ 1.5 mls/min Q8H IV 02/01/18 20:00 03/03/18 19:59 02/03/18 04:37 1.5 MLS/MIN Albuterol (Ventolin Hfa Inhaler) 6 puffs QIDR INH 02/01/18 20:00 03/03/18 19:59 02/02/18 20:12 6 PUFFS Miscellaneous Information (Consult) 1 ea UD PRN N/A 02/01/18 18:00 03/03/18 17:59 Levofloxacin 750 mg/Prmx 150 ml @ 100 mls/hr Q24H IV 02/02/18 17:00 02/08/18 16:59 02/02/18 16:53 100 MLS/HR Miscellaneous Information (Consult Glycemic Management Pharmacy) 1 ea UD PRN N/A 02/01/18 19:47 03/03/18 19:46 Cefepime HCl (Consult) 1 ea UD PRN N/A 02/01/18 19:45 4/6/18 19:44 Cefepime HCl 2000 mg/Syringe 20 ml @ 5 mls/min Q12H IV 02/02/18 06:00 02/08/18 17:59 02/03/18 06:08 5 MLS/MIN Levofloxacin (Consult) 1 ea UD PRN N/A 02/01/18 19:45 03/03/18 19:44 Glucose (Glucose 40% Gel) 15-30 GRAMS 15 GRAMS... UD PRN PO 02/01/18 21:30 03/03/18 21:29 Glucose (Glucose Chew Tab) 4-8 Tablets 4 Tabl... UD PRN PO 02/01/18 21:30 03/03/18 21:29 Dextrose (Dextrose 50% 50ML Syringe) 25-50ML OF 50% DW IV FOR... UD PRN IV 02/01/18 21:30 03/03/18 21:29 Glucagon (Glucagon Inj) 1 mg UD PRN SQ 02/01/18 21:30 03/03/18 21:29 Insulin Aspart (novoLOG ASPART) SLIDING SCALE Q4 SC 02/02/18 12:00 03/04/18 11:59 02/03/18 08:02 2 UNITS Insulin Glargine (Lantus Solostar Pen) See protocol text BID SC 02/02/18 21:00 03/04/18 20:59 02/03/18 08:03 40 UNITS Miscellaneous Information (Pending Order) 1 ea Q4 N/A 02/02/18 16:00 03/04/18 15:59 Furosemide 40 mg/ Syringe 4 ml @ 4 mls/min Q12H IV 02/02/18 20:00 03/04/18 19:59 02/03/18 07:45 4 MLS/MIN Enteral Nutritional Formula (Peptamen Intense VHP) 1,000 ml UD PRN NG 02/02/18 14:15 03/04/18 14:14 02/02/18 15:11 1,000 ML Levothyroxine Sodium (Synthroid Tab) 200 mcg DAILYBB PO 02/03/18 06:00 03/05/18 05:59 02/03/18 06:11 200 MCG Clopidogrel Bisulfate (plAVix TAB) 75 mg QAM PO 02/03/18 09:00 03/05/18 08:59 02/03/18 07:48 75 MG Gabapentin (Neurontin) 100 mg TID NG 02/02/18 21:00 03/04/18 20:59 02/03/18 09:42 100 MG Citalopram Hydrobromide (celeXA TAB) 20 mg QAM PO 02/03/18 09:00 03/05/18 08:59 02/03/18 07:48 20 MG Aspirin (Aspirin Chew) 81 mg QAM NG 02/02/18 16:45 03/04/18 16:44 02/03/18 07:48 81 MG Hydralazine HCl (HydrALAZINE INJ) 10 mg Q4 PRN IV. 02/02/18 19:15 03/04/18 19:14 02/03/18 07:45 10 MG Dexmedetomidine HCl 800 mcg/ Sodium Chloride 200 ml @ 0 mls/hr Q0M PRN IV 02/03/18 00:30 02/07/18 00:29 02/03/18 06:20 34.8 MLS/HR Vancomycin HCl 1500 mg/Sodium Chloride 530 ml @ 200 mls/hr Q8H IV 02/03/18 14:00 02/09/18 08:59 Potassium Chloride (Klor-Con Pwd) 20 meq QAM PO 02/04/18 09:00 03/06/18 08:59 Enoxaparin Sodium (Lovenox Inj) 30 mg Q12H SQ 02/03/18 21:00 03/03/18 20:59
--- NOTE | 2018-02-03 13:24 | Critical Care Progress Note ---
Critical Care Progress Note Date of Service Feb 03, 2018. Attending Dr. Benoit Subjective Extubated today, doing well Diuresed well with lasix Objective General: Morbidly obese female, NAD Heent: NC/AT Lung: Distant, coarse breath sounds Chest: Faint, healed/crusted lesions over the left anterior chest, not crossing the midline CVS:Distant S1S2, regular Abdomen: Obese, soft, non-tender Ext: Obese CAN VACUUM TESTER: Follows commands, well coordinated, AAO x 3 Assessment & Plan Acute on chronic respiratory failure with hypoxia and hypercapnia, intubated 06/14, extubated 02/03/18 Bronchitis, possible component of pulmonary edema Diastolic heart failure COPD Morbid obesity Liver cirrhosis DM2 CAD Smoker Plan: CAN VACUUM TESTER:Off sedation now that she's extubated Pulmonary: Extubated today, doing well Pulmonary toilet Abx Steroids and bronchodilators. CVS: Diurese the patient. May decrease Lasix to 40 mg dailylas Continue ASA Remains HD stable, no need for pressor support ID: MRSA positive in the nares. Continue Vancomycin Continue cefepime for E Coli UTI On Levaquin for atypical coverage Would not give her a course longer than 5-7 days, not convinced she has a true bacterial pulmonary infection No need to treat for shingles. Likely healed by now GI: Diet if able to swallow She carries a dx of autoimmune liver cirrhosis (s/p biopsy in 2006), but her liver function seems quite acceptable. Endo: Adequate glycemic control Renal/metabolic: Maintain a negative balance Decrease Lovenox to 30 mg bid based on Xa levels Critical care time spent with the patient, reviewing chart, discussing with consultants, excluding procedures, greater than 40 minutes Consults & Procedures Procedures: Extubation 02/03/18 Data Medications: Current Inpatient Medications Medications (Trade) Dose Ordered Sig/Abdi Route Start Time Stop Time Status Last Admin Dose Admin Fentanyl Citrate (Fentanyl Inj) 25 mcg Q1H PRN IV 02/01/18 17:45 02/15/18 17:44 02/02/18 20:04 25 MCG Pantoprazole Sodium 40 mg/ Syringe 10 ml @ 5 mls/min DAILY IV 02/02/18 09:00 03/04/18 08:59 02/03/18 07:44 5 MLS/MIN Lorazepam (Ativan Inj) 1 mg Q2H PRN IV 02/01/18 18:00 03/03/18 17:59 Methylprednisolone Sodium Succinate 40 mg/Syringe 0.64 ml @ 1.5 mls/min Q8H IV 02/01/18 20:00 03/03/18 19:59 02/03/18 11:52 1.5 MLS/MIN Albuterol (Ventolin Hfa Inhaler) 6 puffs QIDR INH 02/01/18 20:00 03/03/18 19:59 02/02/18 20:12 6 PUFFS Miscellaneous Information (Consult) 1 ea UD PRN N/A 02/01/18 18:00 03/03/18 17:59 Levofloxacin 750 mg/Prmx 150 ml @ 100 mls/hr Q24H IV 02/02/18 17:00 02/08/18 16:59 02/02/18 16:53 100 MLS/HR Miscellaneous Information (Consult Glycemic Management Pharmacy) 1 ea UD PRN N/A 02/01/18 19:47 03/03/18 19:46 Cefepime HCl (Consult) 1 ea UD PRN N/A 02/01/18 19:45 03/03/18 19:44 Cefepime HCl 2000 mg/Syringe 20 ml @ 5 mls/min Q12H IV 02/02/18 06:00 02/08/18 17:59 02/03/18 06:08 5 MLS/MIN Levofloxacin (Consult) 1 ea UD PRN N/A 02/01/18 19:45 03/03/18 19:44 Glucose (Glucose 40% Gel) 15-30 GRAMS 15 GRAMS... UD PRN PO 02/01/18 21:30 03/03/18 21:29 Glucose (Glucose Chew Tab) 4-8 Tablets 4 Tabl... UD PRN PO 02/01/18 21:30 03/03/18 21:29 Dextrose (Dextrose 50% 50ML Syringe) 25-50ML OF 50% DW IV FOR... UD PRN IV 02/01/18 21:30 03/03/18 21:29 Glucagon (Glucagon Inj) 1 mg UD PRN SQ 02/01/18 21:30 03/03/18 21:29 Insulin Aspart (novoLOG ASPART) SLIDING SCALE Q4 SC 02/02/18 12:00 03/04/18 11:59 02/03/18 08:02 2 UNITS Insulin Glargine (Lantus Solostar Pen) See protocol text BID SC 02/02/18 21:00 03/04/18 20:59 02/03/18 08:03 40 UNITS Miscellaneous Information (Pending Order) 1 ea Q4 N/A 02/02/18 16:00 03/04/18 15:59 Furosemide 40 mg/ Syringe 4 ml @ 4 mls/min Q12H IV 02/02/18 20:00 03/04/18 19:59 02/03/18 07:45 4 MLS/MIN Enteral Nutritional Formula (Peptamen Intense VHP) 1,000 ml UD PRN NG 02/02/18 14:15 03/04/18 14:14 02/02/18 15:11 1,000 ML Levothyroxine Sodium (Synthroid Tab) 200 mcg DAILYBB PO 02/03/18 06:00 03/05/18 05:59 02/03/18 06:11 200 MCG Clopidogrel Bisulfate (plAVix TAB) 75 mg QAM PO 02/03/18 09:00 03/05/18 08:59 02/03/18 07:48 75 MG Gabapentin (Neurontin) 100 mg TID NG 02/02/18 21:00 03/04/18 20:59 02/03/18 09:42 100 MG Citalopram Hydrobromide (celeXA TAB) 20 mg QAM PO 02/03/18 09:00 03/05/18 08:59 02/03/18 07:48 20 MG Aspirin (Aspirin Chew) 81 mg QAM NG 02/02/18 16:45 03/04/18 16:44 02/03/18 07:48 81 MG Hydralazine HCl (HydrALAZINE INJ) 10 mg Q4 PRN IV. 02/02/18 19:15 03/04/18 19:14 02/03/18 07:45 10 MG Dexmedetomidine HCl 800 mcg/ Sodium Chloride 200 ml @ 0 mls/hr Q0M PRN IV 02/03/18 00:30 02/07/18 00:29 02/03/18 06:20 34.8 MLS/HR Vancomycin HCl 1500 mg/Sodium Chloride 530 ml @ 200 mls/hr Q8H IV 02/03/18 14:00 02/09/18 08:59 Potassium Chloride (Klor-Con Pwd) 20 meq QAM PO 02/04/18 09:00 03/06/18 08:59 Enoxaparin Sodium (Lovenox Inj) 30 mg Q12H SQ 02/03/18 21:00 03/03/18 20:59 Vital Signs: Date Time Temp Pulse Resp B/P (MAP) Pulse Ox O2 Delivery O2 Flow Rate FiO2 02/03/18 11:11 Nasal Cannula 4.0 02/03/18 11:11 37.2 53 22 109/59 (76) 95 Nasal Cannula 4.0 02/03/18 09:30 37.2 48 19 130/47 (74) 98 Mechanical Ventilator 50 02/03/18 07:30 37.2 48 19 181/54 (96) 98 Mechanical Ventilator 50 02/03/18 07:30 50 02/03/18 07:30 Mechanical Ventilator 50 02/03/18 06:27 50 02/03/18 05:01 48 19 172/82 (112) 98 Mechanical Ventilator 50 02/03/18 04:01 36.8 48 20 182/78 (112) 98 Mechanical Ventilator 50 02/03/18 04:00 98 Mechanical Ventilator 50 02/03/18 04:00 50 02/03/18 04:00 50 02/03/18 03:01 49 19 183/93 (123) 98 Mechanical Ventilator 50 02/03/18 02:01 49 20 178/78 (111) 97 02/03/18 01:57 50 02/03/18 01:01 50 21 177/65 (102) 97 02/03/18 00:01 36.9 51 21 181/99 (126) 97 Mechanical Ventilator 50 02/02/18 23:59 97 Mechanical Ventilator 50 02/02/18 23:59 50 02/02/18 22:00 51 21 194/82 (119) 96 Mechanical Ventilator 50 02/02/18 21:47 50 02/02/18 20:12 50 02/02/18 20:00 Mechanical Ventilator 50 02/02/18 20:00 36.6 52 18 177/78 (111) 93 Mechanical Ventilator 50 02/02/18 20:00 50 02/02/18 18:19 50 02/02/18 18:00 54 21 183/75 (111) 94 Mechanical Ventilator 50 02/02/18 16:00 50 02/02/18 16:00 Mechanical Ventilator 50 02/02/18 16:00 36.3 55 18 176/75 (108) 96 Mechanical Ventilator 50 02/02/18 14:16 50 02/02/18 14:00 56 19 150/61 (90) 90 02/02/18 14:00 36.9 55 20 150/61 (90) 93 Mechanical Ventilator 50 02/02/18 13:24 58 24 146/60 (88) 87 Laboratory Results: Last 24 Hours Test 02/02/18 13:16 02/02/18 15:36 02/02/18 20:07 02/02/18 23:26 Heparin Anti-Xa Act, Low Molec Wt 0.23 IU/ML Bedside Glucose 145 mg/dl 181 mg/dl Vancomycin Level Trough 29.7 mcg/ml Test 02/02/18 23:36 02/03/18 04:07 02/03/18 04:48 02/03/18 04:49 Bedside Glucose 163 mg/dl 153 mg/dl Sodium Level 127 mmol/L Potassium Level 3.4 mmol/L Chloride Level 86 mmol/L Carbon Dioxide Level 34 mmol/L Anion Gap 7.0 mmol/L Blood Urea Nitrogen 16 mg/dl Creatinine 0.44 mg/dl Est Creatinine Clear Calc Drug Dose 189.3 ml/min Estimated GFR () 129.0 Estimated GFR (Non- 111.3 BUN/Creatinine Ratio 35.8 Random Glucose 173 mg/dl Calcium Level 9.3 mg/dl Magnesium Level 2.0 mg/dl White Blood Count 8.34 K/uL Red Blood Count 4.14 M/uL Hemoglobin 13.2 g/dL Hematocrit 38.3 % Mean Corpuscular Volume 92.5 fL Mean Corpuscular Hemoglobin 31.9 pg Mean Corpuscular Hemoglobin Concent 34.5 g/dl Platelet Count 202 K/uL Mean Platelet Volume 8.4 fL Neutrophils (%) (Auto) 79.4 % Lymphocytes (%) (Auto) 13.1 % Monocytes (%) (Auto) 6.8 % Eosinophils (%) (Auto) 0.1 % Basophils (%) (Auto) 0.1 % Neutrophils # (Auto) 6.62 K/uL Lymphocytes # (Auto) 1.09 K/uL Monocytes # (Auto) 0.57 K/uL Eosinophils # (Auto) 0.01 K/uL Basophils # (Auto) 0.01 K/uL RDW Standard Deviation 46.4 fL RDW Coefficient of Variation 13.8 % Immature Granulocyte % (Auto) 0.5 % Immature Granulocyte # (Auto) 0.04 K/uL Test 02/03/18 05:32 02/03/18 07:57 02/03/18 10:56 Vancomycin Level Trough 12.8 mcg/ml Bedside Glucose 151 mg/dl 150 mg/dl
--- NOTE | 2018-02-03 13:46 | Pharmacy Progress Note ---
Pharmacy Abx Dose Short Note Date of Service Feb 03, 2018. Assessment & Plan Pharmacy has been consulted for: * Glycemic Control * Vancomycin IV * Levofloxacin IV * Cefepime IV Assessment/Plan * 57 year old female admitted 02/01/18 for lethargy, confusion and hypoxemia at halfway. Patient was found to have hypoxemic hypercapnic resp failure and was emergently intubated. * Broad spectrum abx initiated for pneumonia with risk factors for resistance ( halfway, h/o DM and COPD): Vancomycin + Levofloxacin + Cefepime * Patient was extubated this AM, coresafe removed (continuous tube feeds now stopped); continues to receive high dose IV steroids * CXR read as cardiomegaly w/ suspected pulm edema and L basilar consolidation ( atelectasis vs pneumonia) * Procal only 0.05; no leukocytosis noted on labs yesterday or today; remains afebrile * Urine growing e coli (resistant fluoroquinolones, SMX/TMP, Unasyn; sensitive to Cefepime however); nasal swab + MRSA Glycemic Control * Patient is known to the glycemic control service from prior admissions * Currently ordered: * Lantus SQ BID per the following scale: 30 units if BSG less than 140; 40 units if BSG 140-180; 50 units if BSG above 180 * Novolog Q 4 hours: goal 120-160, CF 10, CR 4 * Stressors are lessening at this time (extubated, tube feeds off); she may become more insulin sensitive - however steroid dose unchanged today * Current insulin doses are based upon data from prior hospitalizations while receiving similar steroid dose * Plan: * Continue the current insulin orders for another 24 hours * Begin IV insulin infusion per severe stress protocol; goal range 120-200 if BSG > 220 x 2 Vancomycin * Trough level drawn this AM with 3rd maintenance dose of 1500mg (10.7mg/kg) IV Q 10 hours * Trough level = 12.8 and is sub-therapeutic, prior doses were hung on time, level was also drawn at the appropriate time * Change dose to 1500mg IV Q 8 hours * Goal trough level for pulm infxn : 15 to 20 mcg/mL * Trough level ordered for: 02/04/18 w/ 4th dose of new regimen * Keep in mind that vancomycin may be prone to accumulation in this patient due to BMI > 35 Levofloxacin * eCrCl > 50cc/min * QTc 409 * Continue 750mg IV Q 24 hours Cefepime * eCrCl > 60 * Continue 2gm IV Q 12 hours Pharmacy will continue to follow and will adjust dose/frequency as necessary. Thank you.
[2018-02-03] MEDS ORDERED: VANCOMYCIN INJ 1,500 MG in SODIUM CHLORIDE 0.9% 500ML 500 ML IV SCH (14:00)
[2018-02-03] MEDS ORDERED: DexMEDEtomidine HCL IV 400 MCG in SODIUM CHLORIDE 0.9% 100ML 96 ML IV PRN (14:30)
[2018-02-03] MEDS ORDERED: ALBUTEROL HFA 8 GM INHALER INH PRN (14:30)
[2018-02-03] MEDS: VANCOMYCIN INJ 1,500 MG in SODIUM CHLORIDE 0.9% 250ML 250 ML IV SCH ×2 (15:35→22:50)
[2018-02-03] MEDS: ALBUTEROL 0.083% NEBU SOLN 3 ML VIAL INH SCH ×2 (16:00→19:40)
[2018-02-03] MEDS: LEVOFLOXACIN / D5W 750 MG in PREMIXED IN D5W 150 ML IV SCH (18:24)
[2018-02-03] MEDS: ENOXAPARIN 30 MG/0.3 ML SYR SQ SCH (20:51)
[2018-02-04] VITALS (19 sets, daily range): BP systolic 92–193; BP diastolic 34–75; PULSE 61–77; TEMP 36.8–37.4; O2SAT 92–100
[2018-02-04] MEDS: INSULIN ASPART 100 UNITS/ML 3 ML PEN SC SCH ×6 (04:00→20:07)
[2018-02-04] MEDS: METHYLPREDNISOLONE IV 40 MG in SYRINGE 0 ML IV SCH ×3 (04:19→20:48)
[2018-02-04] MEDS: VANCOMYCIN INJ 1,500 MG in SODIUM CHLORIDE 0.9% 250ML 250 ML IV SCH ×2 (06:07→20:48)
[2018-02-04] MEDS: CEFEPIME IV 2,000 MG in SYRINGE 7.5 ML IV SCH ×2 (06:07→18:21)
[2018-02-04] MEDS: LEVOTHYROXINE 200 MCG TAB PO SCH (06:07)
[2018-02-04] MEDS: ALBUTEROL 0.083% NEBU SOLN 3 ML VIAL INH SCH ×4 (07:06→19:57)
[2018-02-04 08:07] LABS: HEMATOCRIT 37.5 % (37-47); HEMOGLOBIN 12.9 g/dL (12.0-16.0); IG# 0.09 K/uL (0.00-0.02); LYMPH % 8.5 %; LYMPH ABS # 0.99 K/uL (1.2-3.4); MEAN CELL VOLUME 93.5 fL (80-100); MEAN CORPUSCULAR HEMOGLOBIN 32.2 pg (25-34); MEAN CORPUSCULAR HGB CONC 34.4 g/dl (32-36); MEAN PLATELET VOLUME 8.5 fL (7.4-10.4); MONO ABS # 0.58 K/uL (0.11-0.59); NEUT % 85.7 %; NEUT ABS # 9.99 K/uL (1.4-6.5); PLATELET COUNT 217 K/uL (130-400); RED CELL DISTRIBUTION WIDTH CV 14.3 % (11.5-14.5); RED CELL DISTRIBUTION WIDTH SD 48.8 fL (36.4-46.3); WHITE BLOOD COUNT 11.65 K/uL (4.8-10.8)
[2018-02-04] MEDS: PANTOprazole INJ 40 MG in SYRINGE 0 ML IV SCH (08:20)
[2018-02-04] MEDS: CLOPIDOGREL BISULFATE 75 MG TAB PO SCH (08:20)
[2018-02-04] MEDS: GABAPENTIN 250 MG/5 ML 470 ML BTL NG SCH (08:20)
[2018-02-04] MEDS: CITALOPRAM 20 MG TAB PO SCH (08:20)
[2018-02-04] MEDS: ASPIRIN 81 MG CHEW NG SCH (08:20)
[2018-02-04] MEDS: FUROSEMIDE 40 MG TAB PO SCH (08:20)
[2018-02-04] MEDS: ENOXAPARIN 30 MG/0.3 ML SYR SQ SCH ×2 (08:21→20:50)
[2018-02-04 08:45] LABS: CALCIUM 9.1 mg/dl (8.5-10.1); CREATININE 0.43 mg/dl (0.60-1.20); POTASSIUM 3.7 mmol/L (3.5-5.1)
[2018-02-04] MEDS ORDERED: POTASSIUM CHLORIDE PWD 20 MEQ PACK PO SCH (09:00)
[2018-02-04] MEDS: INSULIN GLARGINE SOLOSTAR 100 UNITS/ML 3 ML PEN SC SCH ×2 (09:12→20:53)
--- NOTE | 2018-02-04 09:56 | Critical Care Progress Note ---
Critical Care Progress Note Date of Service Feb 04, 2018. Attending Dr. Benoit Subjective Extubated yesterday Objective General: Morbidly obese female, NAD Heent: NC/AT Lung: Distant, coarse breath sounds Chest: Faint, healed/crusted lesions over the left anterior chest, not crossing the midline CVS:Distant S1S2, regular Abdomen: Obese, soft, non-tender Ext: Obese, LE edema CATH LAB: Follows commands, well coordinated, AAO x 3 Assessment & Plan Acute on chronic respiratory failure with hypoxia and hypercapnia, intubated 06/14, extubated 02/03/18 Bronchitis, possible component of pulmonary edema Diastolic heart failure COPD Morbid obesity Liver cirrhosis DM2 CAD, h/o STEMI in 2011, RCA stent Smoker Plan: CATH LAB:Off sedation now that she's extubated PT/OT OOB to chair Pulmonary: Extubated yesterday, doing well Pulmonary toilet Abx Steroids and bronchodilators. May decrease Solumedrol to 40 mg q 12 CVS: Diurese the patient. Back to outpatient dose of Lasix 40 mg daily Continue ASA, Plavix Remains HD stable, no need for pressor support Tends to be bradycardic, metoprolol has been held in the past May benefit from an JOANN inhibitor however, given diabetes, heart disease. Start Lisinopril 2.5 mg daily for now ID: MRSA positive in the nares. Continue Vancomycin Continue cefepime for E Coli UTI On Levaquin for atypical coverage Would not give her a course longer than 5-7 days, not convinced she has a true bacterial pulmonary infection No need to treat for shingles. Likely healed by now, and I am not even convinced that this was an episode of shingles based on appearance. She states that it was not painful, just itchy. Probably scratch lesions GI: Started on diet, tolerating well She carries a dx of autoimmune liver cirrhosis (s/p biopsy in 2006), but her liver function seems quite acceptable. Endo: Adequate glycemic control Renal/metabolic: Maintain a negative balance Diuresed very well, 13.4 liters in 3 days Heme: On Lovenox to 30 mg bid based on Xa levels Critical care time spent with the patient, reviewing chart, discussing with consultants, excluding procedures, greater than 25 minutes May be transferred to a monitored floor, will sign off from a critical care standpoint. Consults & Procedures Procedures: Extubation 02/03/18 Data Medications: Current Inpatient Medications Medications (Trade) Dose Ordered Sig/Abdi Route Start Time Stop Time Status Last Admin Dose Admin Fentanyl Citrate (Fentanyl Inj) 25 mcg Q1H PRN IV 02/01/18 17:45 02/15/18 17:44 02/02/18 20:04 25 MCG Pantoprazole Sodium 40 mg/ Syringe 10 ml @ 5 mls/min DAILY IV 02/02/18 09:00 03/04/18 08:59 02/04/18 08:20 5 MLS/MIN Lorazepam (Ativan Inj) 1 mg Q2H PRN IV 02/01/18 18:00 03/03/18 17:59 Miscellaneous Information (Consult) 1 ea UD PRN N/A 02/01/18 18:00 03/03/18 17:59 Levofloxacin 750 mg/Prmx 150 ml @ 100 mls/hr Q24H IV 02/02/18 17:00 02/08/18 16:59 02/03/18 18:24 100 MLS/HR Miscellaneous Information (Consult Glycemic Management Pharmacy) 1 ea UD PRN N/A 02/01/18 19:47 03/03/18 19:46 Cefepime HCl (Consult) 1 ea UD PRN N/A 02/01/18 19:45 03/03/18 19:44 Cefepime HCl 2000 mg/Syringe 20 ml @ 5 mls/min Q12H IV 02/02/18 06:00 02/08/18 17:59 02/04/18 06:07 5 MLS/MIN Levofloxacin (Consult) 1 ea UD PRN N/A 02/01/18 19:45 03/03/18 19:44 Glucose (Glucose 40% Gel) 15-30 GRAMS 15 GRAMS... UD PRN PO 02/01/18 21:30 03/03/18 21:29 Glucose (Glucose Chew Tab) 4-8 Tablets 4 Tabl... UD PRN PO 02/01/18 21:30 03/03/18 21:29 Dextrose (Dextrose 50% 50ML Syringe) 25-50ML OF 50% DW IV FOR... UD PRN IV 02/01/18 21:30 03/03/18 21:29 Glucagon (Glucagon Inj) 1 mg UD PRN SQ 02/01/18 21:30 4/6/18 21:29 Insulin Glargine (Lantus Solostar Pen) See protocol text BID SC 02/02/18 21:00 03/04/18 20:59 02/04/18 09:12 30 UNITS Miscellaneous Information (Pending Order) 1 ea Q4 N/A 02/02/18 16:00 03/04/18 15:59 Levothyroxine Sodium (Synthroid Tab) 200 mcg DAILYBB PO 02/03/18 06:00 03/05/18 05:59 02/04/18 06:07 200 MCG Clopidogrel Bisulfate (plAVix TAB) 75 mg QAM PO 02/03/18 09:00 03/05/18 08:59 02/04/18 08:20 75 MG Gabapentin (Neurontin) 100 mg TID NG 02/02/18 21:00 03/04/18 20:59 02/04/18 08:20 100 MG Citalopram Hydrobromide (celeXA TAB) 20 mg QAM PO 02/03/18 09:00 03/05/18 08:59 02/04/18 08:20 20 MG Aspirin (Aspirin Chew) 81 mg QAM NG 02/02/18 16:45 03/04/18 16:44 02/04/18 08:20 81 MG Hydralazine HCl (HydrALAZINE INJ) 10 mg Q4 PRN IV. 02/02/18 19:15 03/04/18 19:14 02/03/18 07:45 10 MG Potassium Chloride (Klor-Con Pwd) 20 meq QAM PO 02/04/18 09:00 03/06/18 08:59 02/04/18 08:21 20 MEQ Enoxaparin Sodium (Lovenox Inj) 30 mg Q12H SQ 02/03/18 21:00 03/03/18 20:59 02/04/18 08:21 30 MG Vancomycin HCl 1500 mg/Sodium Chloride 280 ml @ 105 mls/hr Q8H IV 02/03/18 14:00 02/09/18 08:59 02/04/18 06:07 105 MLS/HR Furosemide (Lasix Tab) 40 mg QAM PO 02/04/18 09:00 03/06/18 08:59 3/10/18 08:20 40 MG Albuterol Sulfate (Ventolin 0.083% 2.5MG/3ML Neb) 2.5 mg QIDR INH 02/03/18 16:00 03/05/18 15:59 02/04/18 07:06 2.5 MG Albuterol (Ventolin Hfa Inhaler) 6 puffs QIDR PRN INH 02/03/18 14:30 03/05/18 14:29 Dexmedetomidine HCl 400 mcg/ Sodium Chloride 100 ml @ 0 mls/hr Q0M PRN IV 02/03/18 14:30 02/07/18 14:29 Methylprednisolone Sodium Succinate 40 mg/Syringe 0.64 ml @ 1.5 mls/min Q12 IV 02/04/18 09:00 03/03/18 19:59 02/04/18 08:34 1.5 MLS/MIN Insulin Aspart (novoLOG ASPART) SLIDING SCALE ACHS SC 02/04/18 08:30 03/06/18 08:29 Vital Signs: Date Time Temp Pulse Resp B/P (MAP) Pulse Ox O2 Delivery O2 Flow Rate FiO2 02/04/18 07:08 66 16 95 Nasal Cannula 2.0 02/04/18 06:00 63 24 134/47 (76) 99 Nasal Cannula 2.0 02/04/18 04:00 96 Nasal Cannula 2.0 02/04/18 04:00 37.0 64 17 117/34 (61) 94 Nasal Cannula 2.0 02/04/18 02:00 65 23 128/42 (70) 94 Nasal Cannula 2.0 02/04/18 00:01 36.8 64 18 127/44 (71) 94 Nasal Cannula 2.0 02/03/18 23:59 94 Nasal Cannula 2.0 02/03/18 22:00 65 16 110/50 (70) 96 Nasal Cannula 2.0 02/03/18 20:00 36.8 66 22 107/48 (67) 95 Nasal Cannula 2.0 02/03/18 20:00 Nasal Cannula 2.0 02/03/18 19:40 65 18 95 Nasal Cannula 2.0 02/03/18 18:00 36.9 63 22 126/31 (62) 94 Nasal Cannula 2.0 02/03/18 18:00 64 94 02/03/18 17:01 63 22 118/51 (73) 93 02/03/18 17:00 63 23 93 02/03/18 16:01 54 22 145/70 (95) 100 02/03/18 16:01 51 16 96 Nasal Cannula 2.0 02/03/18 16:00 54 22 100 02/03/18 16:00 37.3 55 22 145/70 (95) 99 Nasal Cannula 2.0 02/03/18 16:00 Nasal Cannula 2.0 02/03/18 13:30 37.2 54 22 129/55 (79) 96 Nasal Cannula 4.0 02/03/18 13:02 50 19 125/37 (66) 95 02/03/18 13:00 50 21 95 02/03/18 12:00 53 23 95 02/03/18 11:11 Nasal Cannula 4.0 02/03/18 11:11 37.2 53 22 109/59 (76) 95 Nasal Cannula 4.0 02/03/18 11:01 54 20 109/59 (76) 95 02/03/18 11:00 55 24 95 02/03/18 10:01 49 22 118/56 (76) 96 02/03/18 10:00 49 23 96 Laboratory Results: Last 24 Hours Test 02/03/18 10:56 02/03/18 15:33 02/03/18 20:33 02/04/18 00:08 Bedside Glucose 150 mg/dl 110 mg/dl 181 mg/dl 83 mg/dl Test 02/04/18 04:23 02/04/18 07:37 Bedside Glucose 107 mg/dl White Blood Count 11.65 K/uL Red Blood Count 4.01 M/uL Hemoglobin 12.9 g/dL Hematocrit 37.5 % Mean Corpuscular Volume 93.5 fL Mean Corpuscular Hemoglobin 32.2 pg Mean Corpuscular Hemoglobin Concent 34.4 g/dl Platelet Count 217 K/uL Mean Platelet Volume 8.5 fL Neutrophils (%) (Auto) 85.7 % Lymphocytes (%) (Auto) 8.5 % Monocytes (%) (Auto) 5.0 % Eosinophils (%) (Auto) 0.0 % Basophils (%) (Auto) 0.0 % Neutrophils # (Auto) 9.99 K/uL Lymphocytes # (Auto) 0.99 K/uL Monocytes # (Auto) 0.58 K/uL Eosinophils # (Auto) 0.00 K/uL Basophils # (Auto) 0.00 K/uL RDW Standard Deviation 48.8 fL RDW Coefficient of Variation 14.3 % Immature Granulocyte % (Auto) 0.8 % Immature Granulocyte # (Auto) 0.09 K/uL Sodium Level 129 mmol/L Potassium Level 3.7 mmol/L Chloride Level 90 mmol/L Carbon Dioxide Level 34 mmol/L Anion Gap 6.0 mmol/L Blood Urea Nitrogen 17 mg/dl Creatinine 0.43 mg/dl Est Creatinine Clear Calc Drug Dose 184.8 ml/min Estimated GFR () 129.9 Estimated GFR (Non- 112.1 BUN/Creatinine Ratio 40.1 Random Glucose 119 mg/dl Calcium Level 9.1 mg/dl Magnesium Level 2.1 mg/dl
[2018-02-04] MEDS ORDERED: VANCOMYCIN TROUGH ONE (13:30)
--- NOTE | 2018-02-04 14:46 | Pharmacy Progress Note ---
Pharmacy Abx Dose Short Note Date of Service Feb 04, 2018. Assessment & Plan Assessment 57 yr old female patient admitted to the ICU receiving vancomycin, cefepime and levofloxacin for treatment of pulmonary infection. Day # 4 of antimicrobial therapy: * Vanco 1500 mg IV every 8 hours * Cefepime 2000 mg IV every 12 hours * Levofloxacin 750 mg IV every 24 hours Item Value Date Time Blood Culture - Preliminary Resulted 02/01/18 1509 Blood NO GROWTH TO DATE. Blood Culture - Preliminary Resulted 02/01/18 1516 Blood NO GROWTH TO DATE. Urine Culture - Final Complete 02/01/18 1750 Urine,Catheterized Escherichia Coli MRSA DNA Surveillance Screen - Final Complete 02/01/18 1845 Nasal Specimen Positive for MRSA by DNA Probe Plan Vancomycin * Trough level of 26.3 mcg/mL is supratherapeutic. * Change to 1500 mg IV every 12 hours. * Goal trough level for pnx/COPD : 15 to 20 mcg/mL * Repeat trough level will be ordered if clinically warranted or if duration of therapy is extended (plan to treat for 5-7 days per Electrical Experimental Mechanic note) Levofloxacin * Continue 750mg IV Q 24 hours for CrCl > 50cc/min Cefepime * Continue 2gm IV Q 12 hours for CrCl > 60 ml/min Pharmacy will continue to follow and will adjust dose/frequency as necessary. Thank you.
[2018-02-04] MEDS: GABAPENTIN 100 MG CAP PO SCH ×2 (15:17→20:49)
--- NOTE | 2018-02-04 16:30 | Progress Note ---
Medicine Progress Note Date & Time of Visit: Feb 04, 2018 at 16:26. Subjective extubated today sitting up oriented, alert states she feels fine denies dyspnea, has occasional cough no other symptoms Objective Last 8 Hrs Date Time Temp Pulse Resp B/P (MAP) Pulse Ox O2 Delivery O2 Flow Rate FiO2 02/04/18 14:46 68 16 94 Nasal Cannula 3.0 02/04/18 14:02 69 20 111/54 (73) 93 Nasal Cannula 2.0 02/04/18 12:01 36.9 72 19 92/65 (74) 92 Nasal Cannula 2.0 02/04/18 12:00 Nasal Cannula 2.0 02/04/18 11:20 64 16 92 Nasal Cannula 2.0 02/04/18 11:05 66 25 114/48 (70) 92 Nasal Cannula 2.0 02/04/18 10:01 69 26 141/57 (85) 94 Nasal Cannula 2.0 02/04/18 09:01 68 22 122/49 (73) 95 Nasal Cannula 2.0 Physical Exam: General- oriented x 3, not in distress, speaks in sentences with no effort Eyes- anicteric Neck-no JVD Lungs- mild rhonchi at the bases, no wheezing, good air entry bilaterally Heart- regular rhythm; no murmur, normal rate Abdomen- normal bowel sounds, soft, nontender Extremities- no pretibial edema, no calf tenderness Neuro- alert, oriented x 3; no gross focal neuro deficits Skin- warm & dry Laboratory Results: Last 24 Hours Test 02/03/18 20:33 02/04/18 00:08 02/04/18 04:23 02/04/18 07:37 Bedside Glucose 181 mg/dl 83 mg/dl 107 mg/dl White Blood Count 11.65 K/uL Red Blood Count 4.01 M/uL Hemoglobin 12.9 g/dL Hematocrit 37.5 % Mean Corpuscular Volume 93.5 fL Mean Corpuscular Hemoglobin 32.2 pg Mean Corpuscular Hemoglobin Concent 34.4 g/dl Platelet Count 217 K/uL Mean Platelet Volume 8.5 fL Neutrophils (%) (Auto) 85.7 % Lymphocytes (%) (Auto) 8.5 % Monocytes (%) (Auto) 5.0 % Eosinophils (%) (Auto) 0.0 % Basophils (%) (Auto) 0.0 % Neutrophils # (Auto) 9.99 K/uL Lymphocytes # (Auto) 0.99 K/uL Monocytes # (Auto) 0.58 K/uL Eosinophils # (Auto) 0.00 K/uL Basophils # (Auto) 0.00 K/uL RDW Standard Deviation 48.8 fL RDW Coefficient of Variation 14.3 % Immature Granulocyte % (Auto) 0.8 % Immature Granulocyte # (Auto) 0.09 K/uL Sodium Level 129 mmol/L Potassium Level 3.7 mmol/L Chloride Level 90 mmol/L Carbon Dioxide Level 34 mmol/L Anion Gap 6.0 mmol/L Blood Urea Nitrogen 17 mg/dl Creatinine 0.43 mg/dl Est Creatinine Clear Calc Drug Dose 184.8 ml/min Estimated GFR () 129.9 Estimated GFR (Non- 112.1 BUN/Creatinine Ratio 40.1 Random Glucose 119 mg/dl Calcium Level 9.1 mg/dl Magnesium Level 2.1 mg/dl Test 02/04/18 11:07 02/04/18 13:21 02/04/18 15:46 Bedside Glucose 139 mg/dl 151 mg/dl Vancomycin Level Trough 26.3 mcg/ml Assessment & Plan ACUTE ON CHRONIC HYPOXIC + HYPERCAPNIC RESPIRATORY FAILURE Underlying COPD. Reported hypoxia at the [facility]. Acute respiratory failure most likely secondary to underlying COPD Exacerbation , Pleural Effusion, Possible Bronchitis/PNA Echo: * -- Conclusions -- * This study is technically limited. * Grossly normal cardiac chamber sizes. * Grossly normal left ventricular systolic function. * Grossly normal cardiac valves. -- diuresing well extubated -- on Vanco, Cefepime, Levaquin given Lasix BID, now on usual Lasix 40mg daily Nebs, Solumedrol PROBABLE PNEUMONIA Chest x-ray demonstrates bilateral infiltrates, probable healthcare associated pneumonia. blood culture: negative nasal MRSA: positive continue antibiotics EXACERBATION COPD Probably secondary to pneumonia. Solumedrol, Nebs E COLI UTI sensitive to Cefepime monitor CORONARY ARTERY DISEASE Serum troponin normal. No acute EKG changes. On aspirin CIRRHOSIS History of cirrhosis. Records indicate history of autoimmune disease. May have ABDI as well. Serum ammonia 58. -- alert, follows simple commands ALTERED MENTAL STATUS May be multifactorial, combination of hypercapnia, metabolic encephalopathy, encephalopathy secondary to infection, possible hepatic encephalopathy. resolved DM TYPE 2 History of diabetes mellitus type 2 on insulin therapy. A1c 5.6 Pharmacy consult for glycemic management due to critical illness. HYPOTHYROIDISM TSH normal Levothyroxine ordered GI PROPHYLAXIS IV pantoprazole. VTE PROPHYLAXIS SQ enoxaparin. RESUSCITATION STATUS Patient's daughter was given updated by ED physician. She has a completed POLST form which indicates full resuscitation and aggressive treatment. DISPOSITION Anticipated return to [facility] upon discharge Current Inpatient Medications: Current Inpatient Medications Medications (Trade) Dose Ordered Sig/Abdi Route Start Time Stop Time Status Last Admin Dose Admin Lorazepam (Ativan Inj) 1 mg Q2H PRN IV 02/01/18 18:00 03/03/18 17:59 Miscellaneous Information (Consult) 1 ea UD PRN N/A 02/01/18 18:00 03/03/18 17:59 Levofloxacin 750 mg/Prmx 150 ml @ 100 mls/hr Q24H IV 02/02/18 17:00 02/08/18 16:59 02/03/18 18:24 100 MLS/HR Miscellaneous Information (Consult Glycemic Management Pharmacy) 1 ea UD PRN N/A 02/01/18 19:47 03/03/18 19:46 Cefepime HCl (Consult) 1 ea UD PRN N/A 02/01/18 19:45 03/03/18 19:44 Cefepime HCl 2000 mg/Syringe 20 ml @ 5 mls/min Q12H IV 02/02/18 06:00 02/08/18 17:59 02/04/18 06:07 5 MLS/MIN Levofloxacin (Consult) 1 ea UD PRN N/A 02/01/18 19:45 03/03/18 19:44 Glucose (Glucose 40% Gel) 15-30 GRAMS 15 GRAMS... UD PRN PO 02/01/18 21:30 03/03/18 21:29 Glucose (Glucose Chew Tab) 4-8 Tablets 4 Tabl... UD PRN PO 02/01/18 21:30 03/03/18 21:29 Dextrose (Dextrose 50% 50ML Syringe) 25-50ML OF 50% DW IV FOR... UD PRN IV 02/01/18 21:30 03/03/18 21:29 Glucagon (Glucagon Inj) 1 mg UD PRN SQ 02/01/18 21:30 03/03/18 21:29 Insulin Glargine (Lantus Solostar Pen) See protocol text BID SC 02/02/18 21:00 03/04/18 20:59 02/04/18 09:12 30 UNITS Miscellaneous Information (Pending Order) 1 ea Q4 N/A 02/02/18 16:00 03/04/18 15:59 Levothyroxine Sodium (Synthroid Tab) 200 mcg DAILYBB PO 02/03/18 06:00 03/05/18 05:59 02/04/18 06:07 200 MCG Clopidogrel Bisulfate (plAVix TAB) 75 mg QAM PO 02/03/18 09:00 03/05/18 08:59 02/04/18 08:20 75 MG Citalopram Hydrobromide (celeXA TAB) 20 mg QAM PO 02/03/18 09:00 03/05/18 08:59 02/04/18 08:20 20 MG Aspirin (Aspirin Chew) 81 mg QAM NG 02/02/18 16:45 03/04/18 16:44 02/04/18 08:20 81 MG Hydralazine HCl (HydrALAZINE INJ) 10 mg Q4 PRN IV. 02/02/18 19:15 03/04/18 19:14 02/03/18 07:45 10 MG Enoxaparin Sodium (Lovenox Inj) 30 mg Q12H SQ 02/03/18 21:00 03/03/18 20:59 02/04/18 08:21 30 MG Furosemide (Lasix Tab) 40 mg QAM PO 02/04/18 09:00 03/06/18 08:59 02/04/18 08:20 40 MG Albuterol Sulfate (Ventolin 0.083% 2.5MG/3ML Neb) 2.5 mg QIDR INH 02/03/18 16:00 03/05/18 15:59 02/04/18 14:46 2.5 MG Albuterol (Ventolin Hfa Inhaler) 6 puffs QIDR PRN INH 02/03/18 14:30 03/05/18 14:29 Methylprednisolone Sodium Succinate 40 mg/Syringe 0.64 ml @ 1.5 mls/min Q12 IV 02/04/18 09:00 03/03/18 19:59 02/04/18 08:34 1.5 MLS/MIN Insulin Aspart (novoLOG ASPART) SLIDING SCALE ACHS SC 02/04/18 08:30 03/06/18 08:29 02/04/18 12:19 15 UNITS Lisinopril (Zestril Tab) 2.5 mg QAM PO 02/05/18 09:00 03/07/18 08:59 Gabapentin (Neurontin Cap) 100 mg TID PO 02/04/18 14:00 03/06/18 13:59 02/04/18 15:17 100 MG Pantoprazole Sodium (Protonix Tab) 40 mg QAM PO 02/05/18 09:00 03/07/18 08:59 Potassium Chloride (Klor-Con Tab) 20 meq QAM PO 02/05/18 09:00 03/07/18 08:59 Vancomycin HCl 1500 mg/Sodium Chloride 280 ml @ 105 mls/hr Q12H IV 02/04/18 20:00 02/09/18 08:59
[2018-02-04] MEDS: LEVOFLOXACIN / D5W 750 MG in PREMIXED IN D5W 150 ML IV SCH (16:33)
[2018-02-05] VITALS (12 sets, daily range): BP systolic 126–175; BP diastolic 65–74; PULSE 55–64; TEMP 36.8–37.1; O2SAT 94–98
[2018-02-05] MEDS: HydrALAZINE HCL 20 MG/ML VIAL IV. PRN (00:24)
[2018-02-05] MEDS: LEVOTHYROXINE 200 MCG TAB PO SCH (06:07)
[2018-02-05] MEDS: CEFEPIME IV 2,000 MG in SYRINGE 7.5 ML IV SCH ×2 (06:08→17:48)
[2018-02-05] MEDS: ALBUTEROL 0.083% NEBU SOLN 3 ML VIAL INH SCH ×4 (07:24→20:15)
[2018-02-05 07:33] LABS: HEMATOCRIT 35.1 % (37-47); HEMOGLOBIN 11.7 g/dL (12.0-16.0); IG# 0.05 K/uL (0.00-0.02); LYMPH ABS # 1.13 K/uL (1.2-3.4); MEAN CELL VOLUME 94.4 fL (80-100); MEAN CORPUSCULAR HEMOGLOBIN 31.5 pg (25-34); MEAN CORPUSCULAR HGB CONC 33.3 g/dl (32-36); MEAN PLATELET VOLUME 8.1 fL (7.4-10.4); MONO % 8.8 %; MONO ABS # 0.77 K/uL (0.11-0.59); NEUT % 77.6 %; NEUT ABS # 6.77 K/uL (1.4-6.5); PLATELET COUNT 201 K/uL (130-400); RED CELL DISTRIBUTION WIDTH CV 14.4 % (11.5-14.5); WHITE BLOOD COUNT 8.72 K/uL (4.8-10.8)
[2018-02-05] MEDS: PANTOprazole SOD 40 MG TAB PO SCH (08:33)
[2018-02-05] MEDS: CLOPIDOGREL BISULFATE 75 MG TAB PO SCH (08:33)
[2018-02-05] MEDS: METHYLPREDNISOLONE IV 40 MG in SYRINGE 0 ML IV SCH (08:33)
[2018-02-05] MEDS: CITALOPRAM 20 MG TAB PO SCH (08:33)
[2018-02-05] MEDS: VANCOMYCIN INJ 1,500 MG in SODIUM CHLORIDE 0.9% 250ML 250 ML IV SCH ×2 (08:33→20:19)
[2018-02-05] MEDS: ENOXAPARIN 30 MG/0.3 ML SYR SQ SCH ×2 (08:33→20:25)
[2018-02-05] MEDS: POTASSIUM CHLORIDE 20 MEQ TABCR PO SCH (08:34)
[2018-02-05] MEDS: LISINOPRIL 2.5 MG TAB PO SCH (08:34)
[2018-02-05] MEDS: GABAPENTIN 100 MG CAP PO SCH ×3 (08:34→20:19)
[2018-02-05] MEDS: INSULIN ASPART 100 UNITS/ML 3 ML PEN SC SCH ×4 (08:35→20:21)
[2018-02-05] MEDS: INSULIN GLARGINE SOLOSTAR 100 UNITS/ML 3 ML PEN SC SCH ×2 (08:36→20:21)
[2018-02-05] MEDS: FUROSEMIDE 40 MG TAB PO SCH (08:38)
[2018-02-05] MEDS: ASPIRIN 81 MG CHEW NG SCH (08:38)
[2018-02-05 08:45] LABS: CREATININE 0.46 mg/dl (0.60-1.20)
[2018-02-05 08:46] LABS: POTASSIUM 4.5 mmol/L (3.5-5.1)
[2018-02-05 08:47] LABS: CALCIUM 9.1 mg/dl (8.5-10.1)
--- NOTE | 2018-02-05 10:41 | Progress Note ---
Medicine Progress Note Date & Time of Visit: Feb 05, 2018 at 10:41. Subjective resting in bed, comfortable reading the papers states she feels ok overall no dsypnea, cough no abdominal pain no other symptoms Objective Last 8 Hrs Date Time Temp Pulse Resp B/P (MAP) Pulse Ox O2 Delivery O2 Flow Rate FiO2 02/05/18 08:00 Nasal Cannula 2.0 02/05/18 07:24 59 16 97 Nasal Cannula 2.0 02/05/18 07:21 37.1 60 20 126/74 (91) 95 Nasal Cannula 2.0 02/05/18 05:20 37.1 55 22 141/65 (90) 94 Nasal Cannula 2.0 02/05/18 04:00 Nasal Cannula 2.0 Physical Exam: General- oriented x 3, not in distress, speaks in sentences with no effort Eyes- anicteric Neck-no JVD Lungs- clear breath sounds bilaterally Heart- regular rhythm; no murmur, normal rate Abdomen- normal bowel sounds, soft, nontender Extremities- no pretibial edema, no calf tenderness Neuro- alert, oriented x 3; no gross focal neuro deficits Skin- warm & dry Laboratory Results: Last 24 Hours Test 02/04/18 11:07 02/04/18 13:21 02/04/18 15:46 02/04/18 20:05 Bedside Glucose 139 mg/dl 151 mg/dl 100 mg/dl Vancomycin Level Trough 26.3 mcg/ml Test 02/05/18 06:57 02/05/18 07:09 Bedside Glucose 159 mg/dl White Blood Count 8.72 K/uL Red Blood Count 3.72 M/uL Hemoglobin 11.7 g/dL Hematocrit 35.1 % Mean Corpuscular Volume 94.4 fL Mean Corpuscular Hemoglobin 31.5 pg Mean Corpuscular Hemoglobin Concent 33.3 g/dl Platelet Count 201 K/uL Mean Platelet Volume 8.1 fL Neutrophils (%) (Auto) 77.6 % Lymphocytes (%) (Auto) 13.0 % Monocytes (%) (Auto) 8.8 % Eosinophils (%) (Auto) 0.0 % Basophils (%) (Auto) 0.0 % Neutrophils # (Auto) 6.77 K/uL Lymphocytes # (Auto) 1.13 K/uL Monocytes # (Auto) 0.77 K/uL Eosinophils # (Auto) 0.00 K/uL Basophils # (Auto) 0.00 K/uL RDW Standard Deviation 50.0 fL RDW Coefficient of Variation 14.4 % Immature Granulocyte % (Auto) 0.6 % Immature Granulocyte # (Auto) 0.05 K/uL Sodium Level 131 mmol/L Potassium Level 4.5 mmol/L Chloride Level 94 mmol/L Carbon Dioxide Level 29 mmol/L Anion Gap 8.0 mmol/L Blood Urea Nitrogen 20 mg/dl Creatinine 0.46 mg/dl Est Creatinine Clear Calc Drug Dose 173.5 ml/min Estimated GFR () 127.1 Estimated GFR (Non- 109.7 BUN/Creatinine Ratio 43.5 Random Glucose 160 mg/dl Calcium Level 9.1 mg/dl Magnesium Level 2.1 mg/dl Assessment & Plan ACUTE ON CHRONIC HYPOXIC + HYPERCAPNIC RESPIRATORY FAILURE Underlying COPD. Reported hypoxia at the [facility]. Acute respiratory failure most likely secondary to underlying COPD Exacerbation , Pleural Effusion, Possible Bronchitis/PNA Echo: * -- Conclusions -- * This study is technically limited. * Grossly normal cardiac chamber sizes. * Grossly normal left ventricular systolic function. * Grossly normal cardiac valves. -- diuresed well remains stable on room air -- on Vanco, Cefepime, Levaquin given Lasix BID, now on usual Lasix 40mg daily Nebs, Solumedrol-> taper to daily, then prednisone PROBABLE PNEUMONIA Chest x-ray demonstrates bilateral infiltrates, probable healthcare associated pneumonia. blood culture: negative nasal MRSA: positive continue antibiotics EXACERBATION COPD Probably secondary to pneumonia. Solumedrol, Nebs E COLI UTI sensitive to Cefepime monitor CORONARY ARTERY DISEASE Serum troponin normal. No acute EKG changes. On aspirin CIRRHOSIS History of cirrhosis. Records indicate history of autoimmune disease. May have ABDI as well. Serum ammonia 58. -- alert, follows simple commands ALTERED MENTAL STATUS May be multifactorial, combination of hypercapnia, metabolic encephalopathy, encephalopathy secondary to infection, possible hepatic encephalopathy. resolved DM TYPE 2 History of diabetes mellitus type 2 on insulin therapy. A1c 5.6 Pharmacy consult for glycemic management due to critical illness. HYPOTHYROIDISM TSH normal Levothyroxine ordered GI PROPHYLAXIS IV pantoprazole. VTE PROPHYLAXIS SQ enoxaparin. RESUSCITATION STATUS Patient's daughter was given updated by ED physician. She has a completed POLST form which indicates full resuscitation and aggressive treatment. DISPOSITION Anticipated return to [facility] upon discharge Current Inpatient Medications: Current Inpatient Medications Medications (Trade) Dose Ordered Sig/Abdi Route Start Time Stop Time Status Last Admin Dose Admin Lorazepam (Ativan Inj) 1 mg Q2H PRN IV 02/01/18 18:00 03/03/18 17:59 Miscellaneous Information (Consult) 1 ea UD PRN N/A 02/01/18 18:00 03/03/18 17:59 Levofloxacin 750 mg/Prmx 150 ml @ 100 mls/hr Q24H IV 02/02/18 17:00 02/08/18 16:59 02/04/18 16:33 100 MLS/HR Miscellaneous Information (Consult Glycemic Management Pharmacy) 1 ea UD PRN N/A 02/01/18 19:47 03/03/18 19:46 Cefepime HCl (Consult) 1 ea UD PRN N/A 02/01/18 19:45 03/03/18 19:44 Cefepime HCl 2000 mg/Syringe 20 ml @ 5 mls/min Q12H IV 02/02/18 06:00 02/08/18 17:59 02/05/18 06:08 5 MLS/MIN Levofloxacin (Consult) 1 ea UD PRN N/A 02/01/18 19:45 03/03/18 19:44 Glucose (Glucose 40% Gel) 15-30 GRAMS 15 GRAMS... UD PRN PO 02/01/18 21:30 03/03/18 21:29 Glucose (Glucose Chew Tab) 4-8 Tablets 4 Tabl... UD PRN PO 02/01/18 21:30 03/03/18 21:29 Dextrose (Dextrose 50% 50ML Syringe) 25-50ML OF 50% DW IV FOR... UD PRN IV 02/01/18 21:30 03/03/18 21:29 Glucagon (Glucagon Inj) 1 mg UD PRN SQ 02/01/18 21:30 03/03/18 21:29 Insulin Glargine (Lantus Solostar Pen) See protocol text BID SC 02/02/18 21:00 03/04/18 20:59 02/05/18 08:36 40 UNITS Levothyroxine Sodium (Synthroid Tab) 200 mcg DAILYBB PO 02/03/18 06:00 03/05/18 05:59 02/05/18 06:07 200 MCG Clopidogrel Bisulfate (plAVix TAB) 75 mg QAM PO 02/03/18 09:00 03/05/18 08:59 02/05/18 08:33 75 MG Citalopram Hydrobromide (celeXA TAB) 20 mg QAM PO 02/03/18 09:00 03/05/18 08:59 02/05/18 08:33 20 MG Aspirin (Aspirin Chew) 81 mg QAM NG 02/02/18 16:45 03/04/18 16:44 02/05/18 08:38 81 MG Hydralazine HCl (HydrALAZINE INJ) 10 mg Q4 PRN IV. 02/02/18 19:15 03/04/18 19:14 02/05/18 00:24 10 MG Enoxaparin Sodium (Lovenox Inj) 30 mg Q12H SQ 02/03/18 21:00 03/03/18 20:59 02/05/18 08:33 30 MG Furosemide (Lasix Tab) 40 mg QAM PO 02/04/18 09:00 03/06/18 08:59 02/05/18 08:38 40 MG Albuterol Sulfate (Ventolin 0.083% 2.5MG/3ML Neb) 2.5 mg QIDR INH 02/03/18 16:00 03/05/18 15:59 02/05/18 07:24 2.5 MG Albuterol (Ventolin Hfa Inhaler) 6 puffs QIDR PRN INH 02/03/18 14:30 03/05/18 14:29 Methylprednisolone Sodium Succinate 40 mg/Syringe 0.64 ml @ 1.5 mls/min Q12 IV 02/04/18 09:00 03/03/18 19:59 02/05/18 08:33 1.5 MLS/MIN Insulin Aspart (novoLOG ASPART) SLIDING SCALE ACHS SC 02/04/18 08:30 03/06/18 08:29 02/05/18 08:35 15 UNITS Lisinopril (Zestril Tab) 2.5 mg QAM PO 02/05/18 09:00 03/07/18 08:59 02/05/18 08:34 2.5 MG Gabapentin (Neurontin Cap) 100 mg TID PO 02/04/18 14:00 03/06/18 13:59 02/05/18 08:34 100 MG Pantoprazole Sodium (Protonix Tab) 40 mg QAM PO 02/05/18 09:00 03/07/18 08:59 02/05/18 08:33 40 MG Potassium Chloride (Klor-Con Tab) 20 meq QAM PO 02/05/18 09:00 03/07/18 08:59 02/05/18 08:34 20 MEQ Vancomycin HCl 1500 mg/Sodium Chloride 280 ml @ 105 mls/hr Q12H IV 02/04/18 20:00 02/09/18 08:59 02/05/18 08:33 105 MLS/HR
--- NOTE | 2018-02-05 12:25 | Pharmacy Progress Note ---
Pharmacy Glycemic Short Note 2 Date of Service Feb 05, 2018. OUTPATIENT ANTIDIABETIC REGIMEN: * Lantus 55 units SQ Qam * Humalog 20 units TID with meals Test 02/04/18 15:46 02/04/18 20:05 02/05/18 06:57 02/05/18 07:09 Bedside Glucose 151 mg/dl (70-90) 100 mg/dl (70-90) 159 mg/dl (70-90) Random Glucose 160 mg/dl (70-99) Test 02/05/18 11:28 Bedside Glucose 143 mg/dl (70-90) ASSESSMENT: * Blood sugars looking great, Solu-medrol discontinued after morning dose, loosen CF and CR and decrease Lantus to prevent hypoglycemia. Pt does require 115units insulin/day at home. * Pt remains on IV antibiotics, Precedex off PLAN FOR INPATIENT GLYCEMIC CONTROL: * DECREASE: Basal insulin * Lantus SQ BID based on BSG * BSG < 140mg/dl - 25 units * BSG 140-180mg/dl - 30 units * BSG > 180mg/dl - 40 units * Bolus insulin * NovoLog per scale ACHS or Q6hrs while NPO * Goal Range: Low 120 mg/dL - High 160 mg/dL * Loosen: Correction Factor: 15 mg/dL/unit * Loosen: Nutritional / Prandial insulin per carb ratio of 1 unit per 5 grams CHO consumed PLAN FOR DISCHARGE: * A1c 5.8% - continue current regimen unless having hypoglycemia, then followup with outpatient provider to adjust doses
[2018-02-05] MEDS: LEVOFLOXACIN / D5W 750 MG in PREMIXED IN D5W 150 ML IV SCH (17:05)
[2018-02-06] VITALS (8 sets, daily range): BP systolic 116–157; BP diastolic 54–67; PULSE 49–55; TEMP 36.7–37; O2SAT 93–98
[2018-02-06] MEDS: CEFEPIME IV 2,000 MG in SYRINGE 7.5 ML IV SCH ×2 (05:30→17:24)
[2018-02-06] MEDS: LEVOTHYROXINE 200 MCG TAB PO SCH (05:30)
[2018-02-06] MEDS: ALBUTEROL 0.083% NEBU SOLN 3 ML VIAL INH SCH ×4 (07:12→19:51)
[2018-02-06] MEDS ORDERED: VANCOMYCIN TROUGH ONE (07:30)
[2018-02-06 07:37] LABS: BASO % 0.1 %; BASO ABS # 0.01 K/uL (0-0.2); EOS % 1.4 %; EOS ABS # 0.11 K/uL (0-0.5); HEMATOCRIT 36.5 % (37-47); IG# 0.05 K/uL (0.00-0.02); LYMPH % 36.1 %; LYMPH ABS # 2.75 K/uL (1.2-3.4); MEAN CELL VOLUME 96.1 fL (80-100); MEAN CORPUSCULAR HEMOGLOBIN 31.6 pg (25-34); MEAN CORPUSCULAR HGB CONC 32.9 g/dl (32-36); MEAN PLATELET VOLUME 8.1 fL (7.4-10.4); MONO % 8.5 %; MONO ABS # 0.65 K/uL (0.11-0.59); NEUT % 53.2 %; NEUT ABS # 4.04 K/uL (1.4-6.5); PLATELET COUNT 192 K/uL (130-400); RED CELL DISTRIBUTION WIDTH CV 14.2 % (11.5-14.5); RED CELL DISTRIBUTION WIDTH SD 50.2 fL (36.4-46.3); WHITE BLOOD COUNT 7.61 K/uL (4.8-10.8)
[2018-02-06 08:00] LABS: CREATININE 0.46 mg/dl (0.60-1.20); POTASSIUM 4.4 mmol/L (3.5-5.1)
[2018-02-06] MEDS ORDERED: INSULIN GLARGINE SOLOSTAR 100 UNITS/ML 3 ML PEN SC SCH ×3 (08:00→11:30)
[2018-02-06] MEDS ORDERED: METHYLPREDNISOLONE IV 40 MG in SYRINGE 0 ML IV SCH (08:00)
[2018-02-06] MEDS: CITALOPRAM 20 MG TAB PO SCH (08:03)
[2018-02-06] MEDS: CLOPIDOGREL BISULFATE 75 MG TAB PO SCH (08:03)
[2018-02-06] MEDS: GABAPENTIN 100 MG CAP PO SCH ×3 (08:03→19:53)
[2018-02-06] MEDS: VANCOMYCIN INJ 1,500 MG in SODIUM CHLORIDE 0.9% 250ML 250 ML IV SCH ×2 (08:03→19:53)
[2018-02-06] MEDS: PANTOprazole SOD 40 MG TAB PO SCH (08:03)
[2018-02-06] MEDS: LISINOPRIL 2.5 MG TAB PO SCH (08:04)
[2018-02-06] MEDS: ENOXAPARIN 30 MG/0.3 ML SYR SQ SCH ×2 (08:05→19:54)
[2018-02-06] MEDS: FUROSEMIDE 40 MG TAB PO SCH (08:06)
[2018-02-06] MEDS: POTASSIUM CHLORIDE 20 MEQ TABCR PO SCH (08:06)
[2018-02-06] MEDS: ASPIRIN 81 MG CHEW NG SCH (08:19)
[2018-02-06] MEDS: INSULIN ASPART 100 UNITS/ML 3 ML PEN SC SCH ×4 (08:19→20:03)
[2018-02-06] MEDS ORDERED: NURSING DECISION MEDICATION ORDER SCH (08:45)
[2018-02-06] MEDS ORDERED: MICONAZOLE NITRATE POWDER 43 GM EXT PRN (09:00)
--- NOTE | 2018-02-06 09:30 | Progress Note ---
Medicine Progress Note Date & Time of Visit: Feb 06, 2018 at 09:25. Subjective seen resting in bed, comfortable states she feels fine overall denies dyspnea, cough no fever/chills has mild upper b ack pain, worse with moving no other symptoms Objective Last 8 Hrs Date Time Temp Pulse Resp B/P (MAP) Pulse Ox O2 Delivery O2 Flow Rate FiO2 02/06/18 07:57 36.7 55 20 116/67 (83) 95 Nasal Cannula 2.0 02/06/18 07:14 50 18 98 Nasal Cannula 2.0 Physical Exam: General- oriented x 3, not in distress, speaks in sentences with no effort Eyes- anicteric Neck-no JVD Lungs- clear BS BL no rash on the back Heart- regular rhythm; no murmur, normal rate Abdomen- normal bowel sounds, soft, nontender Extremities- trace pretibial edema, no calf tenderness Neuro- alert, oriented x 3; no gross focal neuro deficits Skin- warm & dry Laboratory Results: Last 24 Hours Test 02/05/18 11:28 02/05/18 16:57 02/05/18 20:17 02/06/18 07:21 Bedside Glucose 143 mg/dl 136 mg/dl 173 mg/dl White Blood Count 7.61 K/uL Red Blood Count 3.80 M/uL Hemoglobin 12.0 g/dL Hematocrit 36.5 % Mean Corpuscular Volume 96.1 fL Mean Corpuscular Hemoglobin 31.6 pg Mean Corpuscular Hemoglobin Concent 32.9 g/dl Platelet Count 192 K/uL Mean Platelet Volume 8.1 fL Neutrophils (%) (Auto) 53.2 % Lymphocytes (%) (Auto) 36.1 % Monocytes (%) (Auto) 8.5 % Eosinophils (%) (Auto) 1.4 % Basophils (%) (Auto) 0.1 % Neutrophils # (Auto) 4.04 K/uL Lymphocytes # (Auto) 2.75 K/uL Monocytes # (Auto) 0.65 K/uL Eosinophils # (Auto) 0.11 K/uL Basophils # (Auto) 0.01 K/uL RDW Standard Deviation 50.2 fL RDW Coefficient of Variation 14.2 % Immature Granulocyte % (Auto) 0.7 % Immature Granulocyte # (Auto) 0.05 K/uL Sodium Level 132 mmol/L Potassium Level 4.4 mmol/L Chloride Level 93 mmol/L Carbon Dioxide Level 35 mmol/L Anion Gap 4.0 mmol/L Blood Urea Nitrogen 19 mg/dl Creatinine 0.46 mg/dl Est Creatinine Clear Calc Drug Dose 173.5 ml/min Estimated GFR () 127.1 Estimated GFR (Non- 109.7 BUN/Creatinine Ratio 41.3 Random Glucose 92 mg/dl Calcium Level 9.0 mg/dl Magnesium Level 2.1 mg/dl Vancomycin Level Trough 15.5 mcg/ml Test 02/06/18 07:45 Bedside Glucose 90 mg/dl Assessment & Plan ACUTE ON CHRONIC HYPOXIC + HYPERCAPNIC RESPIRATORY FAILURE Underlying COPD. Reported hypoxia at the [facility]. Acute respiratory failure most likely secondary to underlying COPD Exacerbation , Pleural Effusion, Possible Bronchitis/PNA Echo: * -- Conclusions -- * This study is technically limited. * Grossly normal cardiac chamber sizes. * Grossly normal left ventricular systolic function. * Grossly normal cardiac valves. -- diuresed well--> ~negative 11 liters remains stable on room air -- on Vanco, Cefepime, Levaquin Day 6/ given Lasix BID, now on Lasix 40mg daily--> hold lasix , re eval tomorrow, may only need Lasix 20mg po daily Nebs, Solumedrol-> taper to daily, then prednisone PROBABLE PNEUMONIA Chest x-ray demonstrates bilateral infiltrates, probable healthcare associated pneumonia. blood culture: negative nasal MRSA: positive continue antibiotics EXACERBATION COPD Probably secondary to pneumonia. Prednisone, Nebs E COLI UTI sensitive to Cefepime afebrile CORONARY ARTERY DISEASE Serum troponin normal. No acute EKG changes. On aspirin CIRRHOSIS History of cirrhosis. Records indicate history of autoimmune disease. May have ABDI as well. Serum ammonia 58. -- alert, oriented, no confusion ALTERED MENTAL STATUS May be multifactorial, combination of hypercapnia, metabolic encephalopathy, encephalopathy secondary to infection, possible hepatic encephalopathy. resolved DM TYPE 2 History of diabetes mellitus type 2 on insulin therapy. A1c 5.6 Pharmacy consult for glycemic management due to critical illness. HYPOTHYROIDISM TSH normal Levothyroxine ordered GI PROPHYLAXIS IV pantoprazole. VTE PROPHYLAXIS SQ enoxaparin. RESUSCITATION STATUS Patient's daughter was given updated by ED physician. She has a completed POLST form which indicates full resuscitation and aggressive treatment. DISPOSITION last day of antibiotics tomorrow Anticipated return to [facility] tomorrow Current Inpatient Medications: Current Inpatient Medications Medications (Trade) Dose Ordered Sig/Abdi Route Start Time Stop Time Status Last Admin Dose Admin Lorazepam (Ativan Inj) 1 mg Q2H PRN IV 02/01/18 18:00 03/03/18 17:59 Miscellaneous Information (Consult) 1 ea UD PRN N/A 02/01/18 18:00 03/03/18 17:59 Levofloxacin 750 mg/Prmx 150 ml @ 100 mls/hr Q24H IV 02/02/18 17:00 02/08/18 16:59 02/05/18 17:05 100 MLS/HR Miscellaneous Information (Consult Glycemic Management Pharmacy) 1 ea UD PRN N/A 02/01/18 19:47 03/03/18 19:46 Cefepime HCl (Consult) 1 ea UD PRN N/A 02/01/18 19:45 03/03/18 19:44 Cefepime HCl 2000 mg/Syringe 20 ml @ 5 mls/min Q12H IV 02/02/18 06:00 02/08/18 17:59 02/06/18 05:30 5 MLS/MIN Levofloxacin (Consult) 1 ea UD PRN N/A 02/01/18 19:45 03/03/18 19:44 Glucose (Glucose 40% Gel) 15-30 GRAMS 15 GRAMS... UD PRN PO 02/01/18 21:30 03/03/18 21:29 Glucose (Glucose Chew Tab) 4-8 Tablets 4 Tabl... UD PRN PO 02/01/18 21:30 03/03/18 21:29 Dextrose (Dextrose 50% 50ML Syringe) 25-50ML OF 50% DW IV FOR... UD PRN IV 02/01/18 21:30 03/03/18 21:29 Glucagon (Glucagon Inj) 1 mg UD PRN SQ 02/01/18 21:30 03/03/18 21:29 Levothyroxine Sodium (Synthroid Tab) 200 mcg DAILYBB PO 02/03/18 06:00 03/05/18 05:59 02/06/18 05:30 200 MCG Clopidogrel Bisulfate (plAVix TAB) 75 mg QAM PO 02/03/18 09:00 03/05/18 08:59 02/06/18 08:03 75 MG Citalopram Hydrobromide (celeXA TAB) 20 mg QAM PO 02/03/18 09:00 03/05/18 08:59 02/06/18 08:03 20 MG Aspirin (Aspirin Chew) 81 mg QAM NG 02/02/18 16:45 03/04/18 16:44 02/06/18 08:19 81 MG Hydralazine HCl (HydrALAZINE INJ) 10 mg Q4 PRN IV. 02/02/18 19:15 03/04/18 19:14 02/05/18 00:24 10 MG Enoxaparin Sodium (Lovenox Inj) 30 mg Q12H SQ 02/03/18 21:00 03/03/18 20:59 02/06/18 08:05 30 MG Albuterol Sulfate (Ventolin 0.083% 2.5MG/3ML Neb) 2.5 mg QIDR INH 02/03/18 16:00 03/05/18 15:59 02/06/18 07:12 2.5 MG Albuterol (Ventolin Hfa Inhaler) 6 puffs QIDR PRN INH 02/03/18 14:30 03/05/18 14:29 Insulin Aspart (novoLOG ASPART) SLIDING SCALE ACHS SC 02/04/18 08:30 03/06/18 08:29 02/06/18 08:19 9 UNITS Lisinopril (Zestril Tab) 2.5 mg QAM PO 02/05/18 09:00 03/07/18 08:59 02/06/18 08:04 2.5 MG Gabapentin (Neurontin Cap) 100 mg TID PO 02/04/18 14:00 03/06/18 13:59 02/06/18 08:03 100 MG Pantoprazole Sodium (Protonix Tab) 40 mg QAM PO 02/05/18 09:00 03/07/18 08:59 02/06/18 08:03 40 MG Potassium Chloride (Klor-Con Tab) 20 meq QAM PO 02/05/18 09:00 03/07/18 08:59 02/06/18 08:06 20 MEQ Vancomycin HCl 1500 mg/Sodium Chloride 280 ml @ 105 mls/hr Q12H IV 02/04/18 20:00 02/08/18 17:59 02/06/18 08:03 105 MLS/HR Methylprednisolone Sodium Succinate 40 mg/Syringe 0.64 ml @ 1.5 mls/min DAILY IV 02/06/18 08:00 03/03/18 19:59 02/06/18 08:05 1.5 MLS/MIN Insulin Glargine (Lantus Solostar Pen) 55 units DAILY SC 02/07/18 08:00 03/09/18 07:59 Insulin Glargine (Lantus Solostar Pen) 50 units TODAY@1100 SC 02/06/18 11:00 02/06/18 14:00 Miconazole Nitrate (Desenex Powder) 1 appln PRN PRN EXT 02/06/18 09:00 03/08/18 08:59
--- NOTE | 2018-02-06 09:34 | Pharmacy Progress Note ---
Pharmacy Glycemic Short Note 2 Date of Service Feb 06, 2018. OUTPATIENT ANTIDIABETIC REGIMEN: * Lantus 55 units SQ Qam * Humalog 20 units TID with meals Item Value Date Time Bedside Glucose 159 mg/dl H 02/05/18 0657 Bedside Glucose 143 mg/dl H 02/05/18 1128 Bedside Glucose 136 mg/dl H 02/05/18 1657 Bedside Glucose 173 mg/dl H 02/05/182016 Bedside Glucose 90 mg/dl 02/06/18 0745 ASSESSMENT: * Blood sugars looking great, are all in goal range of 70-179 mg/dl. * Pt has received 114 units of insulin over the past 24hrs * 70 units basal insulin with Lantus * 44 units of prandial/correctional insulin with NovoLog * Solu-medrol tapered to daily dosing. Lantus currently being dosed BID for when solu-medrol was dosed RTC. AM fasting BSG trending downwards. * Will decrease dosing and change back to once daily dosing in AM which is consistent with outpatient dosing. PLAN FOR INPATIENT GLYCEMIC CONTROL: * DECREASE: Basal insulin * Lantus 50 units SQ daily in AM * Bolus insulin: no change * NovoLog per scale ACHS or Q6hrs while NPO * Goal Range: Low 120 mg/dL - High 160 mg/dL * Loosen: Correction Factor: 15 mg/dL/unit * Loosen: Nutritional / Prandial insulin per carb ratio of 1 unit per 5 grams CHO consumed PLAN FOR DISCHARGE: * A1c 5.8% - continue current regimen unless having hypoglycemia, then followup with outpatient provider to adjust doses
[2018-02-06] MEDS ORDERED: LIDODERM (LIDOCAINE) PATCH 5% TD ONE (09:45)
--- NOTE | 2018-02-06 11:32 | Pharmacy Progress Note ---
Pharmacy Antibiotic Prog Note Date of Service Feb 06, 2018. Objective Height (Feet): 5 Height (Inches): 2.00 Weight (Kilograms): 130.900 Lab Results (24hrs): Test 02/05/18 20:17 02/06/18 07:21 02/06/18 07:45 Bedside Glucose 173 mg/dl (70-90) 90 mg/dl (70-90) White Blood Count 7.61 K/uL (4.8-10.8) Red Blood Count 3.80 M/uL (4.2-5.4) Hemoglobin 12.0 g/dL (12.0-16.0) Hematocrit 36.5 % (37-47) Mean Corpuscular Volume 96.1 fL (80-100) Mean Corpuscular Hemoglobin 31.6 pg (25-34) Mean Corpuscular Hemoglobin Concent 32.9 g/dl (32-36) Platelet Count 192 K/uL (130-400) Mean Platelet Volume 8.1 fL (7.4-10.4) Neutrophils (%) (Auto) 53.2 % Lymphocytes (%) (Auto) 36.1 % Monocytes (%) (Auto) 8.5 % Eosinophils (%) (Auto) 1.4 % Basophils (%) (Auto) 0.1 % Neutrophils # (Auto) 4.04 K/uL (1.4-6.5) Lymphocytes # (Auto) 2.75 K/uL (1.2-3.4) Monocytes # (Auto) 0.65 K/uL (0.11-0.59) Eosinophils # (Auto) 0.11 K/uL (0-0.5) Basophils # (Auto) 0.01 K/uL (0-0.2) RDW Standard Deviation 50.2 fL (36.4-46.3) RDW Coefficient of Variation 14.2 % (11.5-14.5) Immature Granulocyte % (Auto) 0.7 % Immature Granulocyte # (Auto) 0.05 K/uL (0.00-0.02) Sodium Level 132 mmol/L (136-145) Potassium Level 4.4 mmol/L (3.5-5.1) Chloride Level 93 mmol/L (98-107) Carbon Dioxide Level 35 mmol/L (21-32) Anion Gap 4.0 mmol/L (3-11) Blood Urea Nitrogen 19 mg/dl (7-18) Creatinine 0.46 mg/dl (0.60-1.20) Est Creatinine Clear Calc Drug Dose 173.5 ml/min Estimated GFR () 127.1 Estimated GFR (Non- 109.7 BUN/Creatinine Ratio 41.3 (10-20) Random Glucose 92 mg/dl (70-99) Calcium Level 9.0 mg/dl (8.5-10.1) Magnesium Level 2.1 mg/dl (1.8-2.4) Vancomycin Level Trough 15.5 mcg/ml (SEE COMMENT) Assessment & Plan Assessment * 57 yo F admitted with acute on chronic respiratory failure, likely 2nd COPD exacerbation, but also possible PNA and/or bronchitis * Cultures * Urine - E.coli (sensitive to cefepime) * Nasal MRSA positive * Antibiotics * Cefepime, levofloxacin, vancomycin day 6 * This regimen is appropriate for now * Per provider progress note, plan for 7 days total antibiotic therapy * Renal * SCr stable and at/near baseline Vancomycin * Goal vancomycin trough 15-20 mcg/mL * Trough of 15.5 mcg/mL is therapeutic and likely at/near steady state * No change to vancomycin dose needed Plan * Continue vancomycin 1500 mg IV q12h * No repeat trough needed unless renal function changes or therapy is continued beyond 7 days Pharmacy will continue to follow and will adjust dose/frequency as necessary. Thank you
[2018-02-06] MEDS: LEVOFLOXACIN / D5W 750 MG in PREMIXED IN D5W 150 ML IV SCH (17:24)
[2018-02-07] VITALS (7 sets, daily range): BP systolic 101–177; BP diastolic 57–86; PULSE 47–56; TEMP 36.7; O2SAT 94–98
[2018-02-07] MEDS: CEFEPIME IV 2,000 MG in SYRINGE 7.5 ML IV SCH (05:55)
[2018-02-07] MEDS: LEVOTHYROXINE 200 MCG TAB PO SCH (05:56)
[2018-02-07] MEDS: ALBUTEROL 0.083% NEBU SOLN 3 ML VIAL INH SCH (07:15)
[2018-02-07] MEDS ORDERED: LIDODERM (LIDOCAINE) PATCH 5% TD SCH (08:00)
[2018-02-07] MEDS ORDERED: INSULIN GLARGINE SOLOSTAR 100 UNITS/ML 3 ML PEN SC SCH ×2 (08:00)
[2018-02-07] MEDS ORDERED: ALBUTEROL 0.083% NEBU SOLN 3 ML VIAL INH PRN (08:15)
[2018-02-07] MEDS: VANCOMYCIN INJ 1,500 MG in SODIUM CHLORIDE 0.9% 250ML 250 ML IV SCH (09:10)
[2018-02-07] MEDS: POTASSIUM CHLORIDE 20 MEQ TABCR PO SCH (09:10)
[2018-02-07] MEDS: CLOPIDOGREL BISULFATE 75 MG TAB PO SCH (09:10)
[2018-02-07] MEDS: GABAPENTIN 100 MG CAP PO SCH ×2 (09:10→14:06)
[2018-02-07] MEDS: CITALOPRAM 20 MG TAB PO SCH (09:10)
[2018-02-07] MEDS: PANTOprazole SOD 40 MG TAB PO SCH (09:10)
[2018-02-07] MEDS: ENOXAPARIN 30 MG/0.3 ML SYR SQ SCH (09:12)
[2018-02-07] MEDS: ASPIRIN 81 MG CHEW NG SCH (09:16)
[2018-02-07] MEDS: LISINOPRIL 2.5 MG TAB PO SCH (09:17)
[2018-02-07] MEDS: INSULIN ASPART 100 UNITS/ML 3 ML PEN SC SCH ×3 (09:23→16:49)
[2018-02-07] MEDS: IPRATROPIUM BROMIDE/ALBUTEROL respimat INH INH SCH ×2 (12:08→16:49)
--- NOTE | 2018-02-07 12:42 | Pharmacy Progress Note ---
Pharmacy Glycemic Short Note 2 Date of Service Feb 07, 2018. OUTPATIENT ANTIDIABETIC REGIMEN: * Lantus 55 units SQ qAM * Humalog 20 units TID with meals Item Value Date Time Bedside Glucose 159 mg/dl H 02/05/18 0657 Bedside Glucose 143 mg/dl H 02/05/18 1128 Bedside Glucose 136 mg/dl H 02/05/18 1657 Bedside Glucose 173 mg/dl H 02/05/182016 Bedside Glucose 90 mg/dl 02/06/18 0745 ASSESSMENT: 02/07/18 * Ms. De Anda received 93 units of insulin yesterday, 50 units of this was basal * Steroids have been tapered to prednisone 30 mg daily from Solu-medrol 40 mg daily * Postprandial BSGs were elevated yesterday so I did not adjust regimen this AM , however, pre-lunch BSG is down to 86 mg/dL now * Will loosen both CF and CR to prevent postprandial hypoglycemia * Will also reduce basal slightly to be closer to ~40% of TDD. This is less than her outpatient basal dose but that must cover some of her prandial needs as an outpatient. PLAN FOR INPATIENT GLYCEMIC CONTROL: * DECREASE: Basal insulin * Lantus 45 units SQ daily in AM * Bolus insulin: * NovoLog per scale ACHS or Q6hrs while NPO * Goal Range: Low 120 mg/dL - High 150 mg/dL * Loosen: Correction Factor: 20 mg/dL/unit * Loosen: Nutritional / Prandial insulin per carb ratio of 1 unit per 7 grams CHO consumed PLAN FOR DISCHARGE: * A1c 5.8% - continue current regimen unless having hypoglycemia, then followup with outpatient provider to adjust doses
--- NOTE | 2018-02-07 13:50 | Progress Note ---
Medicine Progress Note Date & Time of Visit: Feb 07, 2018 at 13:40. Subjective seen resting in bed, alert, comfortable breathing is much better no cough no other symptoms states she is ready for discharge today reiterating that she would like to be transitioned to [facility] eventually patient informed that the casework specialist is aware is of this Objective Last 8 Hrs Date Time Temp Pulse Resp B/P (MAP) Pulse Ox O2 Delivery O2 Flow Rate FiO2 02/07/18 07:36 36.7 47 17 101/57 (72) 98 Nasal Cannula 2.0 02/07/18 07:15 49 18 96 Nasal Cannula 2.0 Physical Exam: General- oriented x 3, not in distress, speaks in sentences with no effort Neck-no JVD Lungs- clear breath sounds bilaterally, no rales/ no wheezing Heart- regular rhythm; no murmur, normal rate Abdomen- normal bowel sounds, soft, nontender Extremities- trace pretibial edema, no calf tenderness Neuro- alert, oriented x 3; no gross focal neuro deficits Skin- warm & dry Laboratory Results: Last 24 Hours Test 02/06/18 19:57 02/07/18 07:54 02/07/18 11:57 Bedside Glucose 178 mg/dl 94 mg/dl 86 mg/dl Assessment & Plan ACUTE ON CHRONIC HYPOXIC + HYPERCAPNIC RESPIRATORY FAILURE Underlying COPD. [facility] Acute respiratory failure most likely secondary to underlying COPD Exacerbation , Pleural Effusion, Possible Bronchitis/PNA Echo: * -- Conclusions -- * This study is technically limited. * Grossly normal cardiac chamber sizes. * Grossly normal left ventricular systolic function. * Grossly normal cardiac valves. -- diuresed well--> ~negative 11 liters, weight down from 140 from 130kg remains stable on room air -- given Vanco, Cefepime, Levaquin x 7 days given Lasix BID, then Lasix 40mg daily--> patient diuresed well--> recommend Lasix 20mg po daily, monitor volume status closely and titrate accordingly, monitor crea Nebs, Solumedrol-> tapered to daily, then prednisone taper -- monitor respiratory and volume status closely titrate Lasix accordingly PROBABLE PNEUMONIA Chest x-ray demonstrates bilateral infiltrates, probable healthcare associated pneumonia. blood culture: negative nasal MRSA: positive completed antibiotics as noted in #1 EXACERBATION COPD Probably secondary to pneumonia. taper Prednisone PRN Nebs E COLI UTI sensitive to Cefepime afebrile complete 7 days of Cefepime CORONARY ARTERY DISEASE Serum troponin normal. No acute EKG changes. On aspirin CIRRHOSIS History of cirrhosis. Records indicate history of autoimmune disease. May have ABDI as well. Serum ammonia 58. -- alert, oriented, no confusion ALTERED MENTAL STATUS May be multifactorial, combination of hypercapnia, metabolic encephalopathy, encephalopathy secondary to infection, possible hepatic encephalopathy. resolved DM TYPE 2 History of diabetes mellitus type 2 on insulin therapy. A1c 5.6 continue Insulin Regimen HYPOTHYROIDISM TSH normal Levothyroxine ordered RESUSCITATION STATUS Patient's daughter was given updated by ED physician. She has a completed POLST form which indicates full resuscitation and aggressive treatment. DISPOSITION d/c to SNF today ff up with PCP in SNF Current Inpatient Medications: Current Inpatient Medications Medications (Trade) Dose Ordered Sig/Abdi Route Start Time Stop Time Status Last Admin Dose Admin Lorazepam (Ativan Inj) 1 mg Q2H PRN IV 02/01/18 18:00 03/03/18 17:59 Miscellaneous Information (Consult) 1 ea UD PRN N/A 02/01/18 18:00 03/03/18 17:59 Levofloxacin 750 mg/Prmx 150 ml @ 100 mls/hr Q24H IV 02/02/18 17:00 02/08/18 16:59 02/06/18 17:24 100 MLS/HR Miscellaneous Information (Consult Glycemic Management Pharmacy) 1 ea UD PRN N/A 02/01/18 19:47 03/03/18 19:46 Cefepime HCl (Consult) 1 ea UD PRN N/A 02/01/18 19:45 03/03/18 19:44 Cefepime HCl 2000 mg/Syringe 20 ml @ 5 mls/min Q12H IV 02/02/18 06:00 02/08/18 17:59 02/07/18 05:55 5 MLS/MIN Levofloxacin (Consult) 1 ea UD PRN N/A 02/01/18 19:45 03/03/18 19:44 Glucose (Glucose 40% Gel) 15-30 GRAMS 15 GRAMS... UD PRN PO 02/01/18 21:30 03/03/18 21:29 Glucose (Glucose Chew Tab) 4-8 Tablets 4 Tabl... UD PRN PO 02/01/18 21:30 03/03/18 21:29 Dextrose (Dextrose 50% 50ML Syringe) 25-50ML OF 50% DW IV FOR... UD PRN IV 02/01/18 21:30 03/03/18 21:29 Glucagon (Glucagon Inj) 1 mg UD PRN SQ 02/01/18 21:30 03/03/18 21:29 Levothyroxine Sodium (Synthroid Tab) 200 mcg DAILYBB PO 02/03/18 06:00 03/05/18 05:59 02/07/18 05:56 200 MCG Clopidogrel Bisulfate (plAVix TAB) 75 mg QAM PO 02/03/18 09:00 03/05/18 08:59 02/07/18 09:10 75 MG Citalopram Hydrobromide (celeXA TAB) 20 mg QAM PO 02/03/18 09:00 03/05/18 08:59 02/07/18 09:10 20 MG Aspirin (Aspirin Chew) 81 mg QAM NG 02/02/18 16:45 03/04/18 16:44 02/07/18 09:16 81 MG Hydralazine HCl (HydrALAZINE INJ) 10 mg Q4 PRN IV. 02/02/18 19:15 03/04/18 19:14 02/05/18 00:24 10 MG Enoxaparin Sodium (Lovenox Inj) 30 mg Q12H SQ 02/03/18 21:00 03/03/18 20:59 02/07/18 09:12 30 MG Albuterol (Ventolin Hfa Inhaler) 6 puffs QIDR PRN INH 02/03/18 14:30 03/05/18 14:29 Insulin Aspart (novoLOG ASPART) SLIDING SCALE ACHS SC 02/04/18 08:30 03/06/18 08:29 02/07/18 12:46 8 UNITS Lisinopril (Zestril Tab) 2.5 mg QAM PO 02/05/18 09:00 03/07/18 08:59 02/07/18 09:17 2.5 MG Gabapentin (Neurontin Cap) 100 mg TID PO 02/04/18 14:00 03/06/18 13:59 02/07/18 09:10 100 MG Pantoprazole Sodium (Protonix Tab) 40 mg QAM PO 02/05/18 09:00 03/07/18 08:59 02/07/18 09:10 40 MG Potassium Chloride (Klor-Con Tab) 20 meq QAM PO 02/05/18 09:00 03/07/18 08:59 02/07/18 09:10 20 MEQ Vancomycin HCl 1500 mg/Sodium Chloride 280 ml @ 105 mls/hr Q12H IV 02/04/18 20:00 02/08/18 17:59 02/07/18 09:10 105 MLS/HR Miconazole Nitrate (Desenex Powder) 1 appln PRN PRN EXT 02/06/18 09:00 03/08/18 08:59 02/06/18 10:02 1 APPLN Prednisone (PredniSONE TAB) 30 mg DAILY PO 02/07/18 08:00 03/09/18 07:59 02/07/18 09:10 30 MG Lidocaine (Lidoderm Patch 5%) 1 patch QAM TD 02/07/18 08:00 03/09/18 07:59 02/07/18 09:12 1 PATCH Miscellaneous (Remove Lidoderm Patch) 1 ea DAILY@21 N/A 02/06/18 21:00 03/08/18 20:59 02/06/18 19:54 1 EA Albuterol Sulfate (Ventolin 0.083% 2.5MG/3ML Neb) 2.5 mg Q4R PRN INH 02/07/18 08:15 03/09/18 08:14 Albuterol/ Ipratropium (Combivent Respimat Inh) 1 puffs QID INH 02/07/18 12:00 03/09/18 11:59 02/07/18 12:08 1 PUFFS Insulin Glargine (Lantus Solostar Pen) 45 units DAILY SC 02/08/18 08:00 03/10/18 07:59
[2018-02-07] MEDS ORDERED: MCRK20 PO (13:55)
[2018-02-07] MEDS ORDERED: FURO-85 PO (13:55)
[2018-02-07] MEDS ORDERED: MCTP EXT (13:55)
[2018-02-07] MEDS ORDERED: LSN25 PO (13:55)
[2018-02-07] MEDS ORDERED: PRED10TA PO (13:55)
--- NOTE | 2018-02-07 13:58 | Discharge Instructions ---
Discharge Instructions Date of Service Feb 07, 2018. Admission Reason for Admission: Hypercapnic Respiratory Failure Discharge Discharge Diagnosis / Problem: RESPIRATORY FAILURE SECONDARY TO VOLUME OVERLOAD , PNEUMONIA Discharge Goals Goal(s): Diagnostic testing, Therapeutic intervention Activity Recommendations Activity Level: Assistance Required Therapies: Physical Therapy, Occupational Therapy . Additional Information Patient informed of condition: Yes Advance Directives: No (UNKKNOWN) DNR: No (PATIENT IS FULL CODE) Level of Care: Skilled Communicable Disease: No Prognosis: Stable Instructions / Follow-Up Instructions / Follow-Up MONITOR BLOOD PRESSURE, HEART RATE; MONITOR VOLUME AND RESPIRATORY STATUS CLOSELY; TITRATE LASIX ACCORDINGLY, MONITOR RENAL FUNCTION AND POTASSIUM LEVEL PLEASE REFER TO ACCOMPANYING HOSPITAL DISCHARGE SUMMARY FOR FURTHER DETAILS. Current Hospital Diet Patient's current hospital diet: AHA Diet (Heart Healthy), Diabetes Type 2 Diet Discharge Diet Recommended Diet: AHA Diet (Heart Healthy), Diabetes Type 2 Diet Procedures Procedures Performed: ENDOTRACHEAL INTUBATION, MECHANICAL VENTILATION Pending Studies Studies pending at discharge: yes List of pending studies: MONITOR RENAL FUNCTION AND POTASSIUM LEVEL PLEASE REFER TO ACCOMPANYING HOSPITAL DISCHARGE SUMMARY FOR FURTHER DETAILS. Physician Orders On Transfer Special Precautions: MONITOR BLOOD PRESSURE, HEART RATE; MONITOR VOLUME AND RESPIRATORY STATUS CLOSELY; TITRATE LASIX ACCORDINGLY, MONITOR RENAL FUNCTION AND POTASSIUM LEVEL PLEASE REFER TO ACCOMPANYING HOSPITAL DISCHARGE SUMMARY FOR FURTHER DETAILS. Laboratory Results Hemoglobin A1c Test 02/02/18 05:30 Range/Units Estimated Average Glucose 114 mg/dl Hemoglobin A1c 5.6 4.5-5.6 % Medical Emergencies . Who to Call and When: Medical Emergencies: If at any time you feel your situation is an emergency, please call 911 immediately. . Non-Emergent Contact Non-Emergency issues call your: Primary Care Provider Call Non-Emergent contact if: you have a fever, your pain is not controlled, your pain is worsening, you have any medication questions . . "Provider Documentation" section prepared by Yoav Prater. . Core Measure Problem Core Measures: None
--- NOTE | 2018-02-07 14:01 | Discharge Summary ---
Discharge Summary Date of Service Feb 07, 2018. Discharge Summary Admission Date: Feb 01, 2018 at 17:51 Discharge Date: Feb 07, 2018 Discharge Disposition: group home facility Principal Diagnosis: ACUTE ON CHRONIC HYPOXIC + HYPERCAPNIC RESPIRATORY FAILURE Secondary Diagnoses/Problems: PLEASE REFER TO HOSPITAL COURSE BELOW. Procedures: CHEST ONE VIEW PORTABLE HISTORY: 57 years-old Female Evaluate Fever/Sepsis acute fever and sepsis with lethargy COMPARISON: Chest radiograph 10/07/2017 TECHNIQUE: Portable AP view of the chest FINDINGS: Cardiac silhouette is again enlarged. Pulmonary vascular congestion with bilateral multifocal multilobar mixed interstitial and alveolar opacities within a perihilar and bibasilar distribution, right greater than left. Small bilateral pleural effusions. There is no pneumothorax. Bones of the chest appear grossly intact. IMPRESSION: 1. Cardiomegaly with right greater than left bilateral mixed interstitial and alveolar opacities suggesting asymmetric pulmonary edema and/or pneumonia. 2. Small bilateral pleural effusions. The above report was generated using voice recognition software. It may contain grammatical, syntax or spelling errors. Electronically signed by: Selvin Lui M.D. 02/01/2018 3:42 PM CHEST ONE VIEW PORTABLE CLINICAL HISTORY: respiratory failure dyspnea COMPARISON STUDY: 02/02/2018 FINDINGS: Endotracheal tube remains 4 cm above the chanel. Slight progressive improvement of pulmonary edematous change. Mild improvement in aeration throughout the right hemithorax. Improved visibility right hemidiaphragm. Persistent consolidative change left base. General prominence of pulmonary vasculature is improved from the prior study. IMPRESSION: Congestive failure mildly improved from the prior exam. Persistent consolidative and/or effusion-type change left lung base. The above report was generated using voice recognition software. It may contain grammatical, syntax or spelling errors. Electronically signed by: Harvey Blevins M.D. 02/03/2018 7:16 AM Consultations: [employer] DR. MORAN Pending Studies/Follow-Up: MONITOR BLOOD PRESSURE, HEART RATE; MONITOR VOLUME AND RESPIRATORY STATUS CLOSELY; TITRATE LASIX ACCORDINGLY, MONITOR RENAL FUNCTION AND POTASSIUM LEVEL PLEASE REFER TO HOSPITAL COURSE BELOW FOR FURTHER DETAILS. Medication Reconciliation New Medications: Furosemide (Lasix) 20 Mg Tab 20 MG PO DAILY for 30 Days, #30 TAB 2 Refills Prednisone Tab (Prednisone) 10 Mg Tab 10 MG PO UD for 6 Days, #7 TAB take 2 tabs po daily x 2 days, then take 1 tab po daily x 2 days, then take 1/2 tab po daily x 2 days, then STOP Miconazole Nitrate (Desenex Shake Powder) 43 Appln/43 Gm Powd 1 APPLN EXT PRN PRN for Affected Skin Folds for 30 Days Potassium Chloride (Klor-Con M20) 20 Meq Tabcr 20 MEQ PO QAM for 30 Days, #30 TAB Continued Medications: Albuterol Sulfate (Proair Respiclick) 108 Mcg/Act Aer 2 PUFFS INH Q4H PRN for Shortness of Breath Aspirin (Aspirin EC Low Dose) 81 Mg Ectab 81 MG PO DAILY Atorvastatin (Lipitor) 40 Mg Tab 40 MG PO DAILY Citalopram (Citalopram Hydrobromide) 20 Mg Tab 20 MG PO QAM, TAB Clopidogrel Bisulfate (Clopidogrel) 75 Mg Tab 75 MG PO DAILY Ergocalciferol (Vitamin D 93546 Unit) 50,000 Unit Cap 1 TAB PO WK, CAP Gabapentin (Gabapentin) 100 Mg Cap 100 MG PO TID Home O2 Therapy (Oxygen) Gas 4 LITERS NA CONTINOUS for 30 Days Insulin Glargine (Lantus Solostar) 100 Unit/Ml Inj 55 UNITS SC QAM Insulin Lispro (Human) (Humalog Kwikpen) 100 Unit/Ml Inj 20 UNITS SC TID Ipratropium-Albuterol (Combivent Respimat) 1 Aer Aer 1 PUFFS INH QID for 30 Days, #1 INH 2 Refills Lactobacillus Acidophilus (Floranex) 1 Tab Tab 1 TAB PO TID, #45 TABS 1 Refill Levothyroxine Sodium (Levothyroxine Sodium) 200 Mcg Tab 200 MCG PO DAILY Ondansetron Hcl (Zofran) 4 Mg Tab 4 MG PO Q6 PRN for Nausea Pantoprazole Sodium (Protonix) 20 Mg Tab 20 MG PO DAILY Discontinued Medications: Acetaminophen (Tylenol) 325 Mg Tab 650 MG PO Q12, TAB Furosemide (Lasix) 20 Mg Tab 20 MG PO Q2D for 30 Days, #15 TAB 1 Refill Admission Information HPI (per Admitting provider): 57-year-old female, resident at [facility]. History of ischemic heart disease, COPD on home O2, cirrhosis, diabetes mellitus type 2, and other problems as noted below. Refer to ED for evaluation of altered mental status. Patient unable to provide any history due to her condition. She was reportedly hypoxic at the [place] [facility]. Found to be in respiratory failure and intubated in the ED. . Physical Exam (per Admitting): CONSTITUTIONAL vital signs as noted above obese, acutely-ill EYES conjunctivae injected; lids normal pupils ~ 3 mm, equal EARS, NOSE, MOUTH AND THROAT nasal airway oral ETT NECK palpations limited due to body habitus thyroid exam limited due to body habitus RESPIRATORY intubated on vent, bilateral breath sounds scattered rhonchi, diffuse wheezing CARDIOVASCULAR regular rate and rhythm III/ systolic murmur @ base and LSB no gallop or rub appreciated, but exam limited examination of carotid pulses limited abdominal aorta not palpable pedal pulses diminished capillary refill toes < 2 seconds 1-2+ pretibial edema, 1+ pedal edema GASTROINTESTINAL obese normal bowel sounds, soft, nontender; no palpable masses no hepatomegaly splenomegaly appreciated, but exam limited LYMPHATIC no cervical adenopathy appreciated MUSCULOSKELETAL no cyanosis (after intubation) no apparent calf tenderness paralyzed after intubation no diabetic foot ulcers SKIN warm and dry NEUROLOGIC unresponsive and paralyzed after intubation PSYCHIATRIC unable to assess due to patient's condition . Hospital Course ACUTE ON CHRONIC HYPOXIC + HYPERCAPNIC RESPIRATORY FAILURE Underlying COPD. Reported hypoxia at the [place]. Acute respiratory failure most likely secondary to underlying COPD Exacerbation , Pleural Effusion, Possible Bronchitis/PNA Echo: * -- Conclusions -- * This study is technically limited. * Grossly normal cardiac chamber sizes. * Grossly normal left ventricular systolic function. * Grossly normal cardiac valves. -- diuresed well--> ~negative 11 liters, weight down from 140 from 130kg remains stable on room air -- given Vanco, Cefepime, Levaquin x 7 days given Lasix BID, then Lasix 40mg daily--> patient diuresed well--> recommend Lasix 20mg po daily, monitor volume status closely and titrate accordingly, monitor crea Nebs, Solumedrol-> tapered to daily, then prednisone taper -- monitor respiratory and volume status closely titrate Lasix accordingly PROBABLE PNEUMONIA Chest x-ray demonstrates bilateral infiltrates, probable healthcare associated pneumonia. blood culture: negative nasal MRSA: positive completed antibiotics as noted in #1 EXACERBATION COPD Probably secondary to pneumonia. taper Prednisone PRN Nebs E COLI UTI sensitive to Cefepime afebrile complete 7 days of Cefepime CORONARY ARTERY DISEASE Serum troponin normal. No acute EKG changes. On aspirin CIRRHOSIS History of cirrhosis. Records indicate history of autoimmune disease. May have ABDI as well. Serum ammonia 58. -- alert, oriented, no confusion ALTERED MENTAL STATUS May be multifactorial, combination of hypercapnia, metabolic encephalopathy, encephalopathy secondary to infection, possible hepatic encephalopathy. resolved DM TYPE 2 History of diabetes mellitus type 2 on insulin therapy. A1c 5.6 continue Insulin Regimen HYPOTHYROIDISM TSH normal Levothyroxine ordered RESUSCITATION STATUS Patient's daughter was given updated by ED physician. She has a completed POLST form which indicates full resuscitation and aggressive treatment. DISPOSITION d/c to SNF today ff up with PCP in SNF Total time spent on discharge = 40 MINUTES This includes examination of the patient, discharge planning, medication reconciliation, and communication with other providers. Discharge Instructions DI: Transfer Non Acute v4 Discharge Instructions Date of Service Feb 07, 2018. Admission Reason for Admission: Hypercapnic Respiratory Failure Discharge Discharge Diagnosis / Problem: RESPIRATORY FAILURE SECONDARY TO VOLUME OVERLOAD , PNEUMONIA Discharge Goals Goal(s): Diagnostic testing, Therapeutic intervention Activity Recommendations Activity Level: Assistance Required Therapies: Physical Therapy, Occupational Therapy . Additional Information Patient informed of condition: Yes Advance Directives: No (UNKKNOWN) DNR: No (PATIENT IS FULL CODE) Level of Care: Skilled Communicable Disease: No Prognosis: Stable Instructions / Follow-Up Instructions / Follow-Up MONITOR BLOOD PRESSURE, HEART RATE; MONITOR VOLUME AND RESPIRATORY STATUS CLOSELY; TITRATE LASIX ACCORDINGLY, MONITOR RENAL FUNCTION AND POTASSIUM LEVEL PLEASE REFER TO ACCOMPANYING HOSPITAL DISCHARGE SUMMARY FOR FURTHER DETAILS. Current Hospital Diet Patient's current hospital diet: AHA Diet (Heart Healthy), Diabetes Type 2 Diet Discharge Diet Recommended Diet: AHA Diet (Heart Healthy), Diabetes Type 2 Diet Procedures Procedures Performed: ENDOTRACHEAL INTUBATION, MECHANICAL VENTILATION Pending Studies Studies pending at discharge: yes List of pending studies: MONITOR RENAL FUNCTION AND POTASSIUM LEVEL PLEASE REFER TO ACCOMPANYING HOSPITAL DISCHARGE SUMMARY FOR FURTHER DETAILS. Physician Orders On Transfer Special Precautions: MONITOR BLOOD PRESSURE, HEART RATE; MONITOR VOLUME AND RESPIRATORY STATUS CLOSELY; TITRATE LASIX ACCORDINGLY, MONITOR RENAL FUNCTION AND POTASSIUM LEVEL PLEASE REFER TO ACCOMPANYING HOSPITAL DISCHARGE SUMMARY FOR FURTHER DETAILS.
[2018-02-08] MEDS ORDERED: INSULIN GLARGINE SOLOSTAR 100 UNITS/ML 3 ML PEN SC SCH (08:00)
== END 2018-02-07 17:43 | DRG 193 ==
LOC: EDBD 14:51 → C.EDC 14:52 → C.MSICU 17:51 → ENRESERV 18:06 → C.2E 02-04 19:03 → ENRESERV 02-05 12:09 → C.4E 02-05 12:48
PROVIDERS: ADMIT Hospitalist; ATTEND Internal Medicine
DX: J18.9 Pneumonia, unspecified organism (principal); J96.20 Acute and chronic respiratory failure, unspecified whether with hypoxia or hypercapnia; Z68.41 Body mass index [BMI] 40.0-44.9, adult; E87.2 Acidosis; E87.1 Hypo-osmolality and hyponatremia; J44.1 Chronic obstructive pulmonary disease with (acute) exacerbation; N39.0 Urinary tract infection, site not specified; G93.41 Metabolic encephalopathy; I50.30 Unspecified diastolic (congestive) heart failure; I11.0 Hypertensive heart disease with heart failure; E11.9 Type 2 diabetes mellitus without complications; I44.0 Atrioventricular block, first degree; K74.60 Unspecified cirrhosis of liver; E78.5 Hyperlipidemia, unspecified; E03.9 Hypothyroidism, unspecified; I25.10 Atherosclerotic heart disease of native coronary artery without angina pectoris; I73.9 Peripheral vascular disease, unspecified; E66.01 Morbid (severe) obesity due to excess calories; Z79.82 Long term (current) use of aspirin; Z79.4 Long term (current) use of insulin; Z88.0 Allergy status to penicillin; E87.5 Hyperkalemia; M35.9 Systemic involvement of connective tissue, unspecified; B96.20 Unspecified Escherichia coli [E. coli] as the cause of diseases classified elsewhere; K72.90 Hepatic failure, unspecified without coma

== ENCOUNTER → 2018-02-10 | Outpatient (CLI) | payer OTHER ==
[~2018-02-10] MED LIST changes: -ACET-1311 PO; -ALBINS/ INH; +MCRK20 PO; +MCTP EXT; +ONDA4TAB46 PO; +PRED10TA PO; -VANC5CAP PO
[2018-02-10 08:39] LABS: BASO % 0.2 %; BASO ABS # 0.02 K/uL (0-0.2); EOS % 2.7 %; EOS ABS # 0.31 K/uL (0-0.5); HEMOGLOBIN 12.4 g/dL (12.0-16.0); IG# 0.06 K/uL (0.00-0.02); LYMPH % 27.9 %; LYMPH ABS # 3.15 K/uL (1.2-3.4); MEAN CELL VOLUME 96.7 fL (80-100); MEAN CORPUSCULAR HEMOGLOBIN 31.6 pg (25-34); MEAN CORPUSCULAR HGB CONC 32.6 g/dl (32-36); MEAN PLATELET VOLUME 9.1 fL (7.4-10.4); MONO % 5.4 %; MONO ABS # 0.61 K/uL (0.11-0.59); NEUT % 63.3 %; NEUT ABS # 7.14 K/uL (1.4-6.5); PLATELET COUNT 226 K/uL (130-400); RED CELL DISTRIBUTION WIDTH CV 13.8 % (11.5-14.5); RED CELL DISTRIBUTION WIDTH SD 49.4 fL (36.4-46.3); WHITE BLOOD COUNT 11.29 K/uL (4.8-10.8)
[2018-02-10 08:46] LABS: ALBUMIN 3.1 gm/dl (3.4-5.0); ALT/SGPT 40 U/L (12-78); BLOOD UREA NITROGEN 15 mg/dl (7-18); CALCIUM 8.9 mg/dl (8.5-10.1); CARBON DIOXIDE 36 mmol/L (21-32); CREATININE 0.46 mg/dl (0.60-1.20); GLUCOSE 119 mg/dl (70-99); POTASSIUM 4.4 mmol/L (3.5-5.1); SODIUM 131 mmol/L (136-145)
[2018-02-10 08:56] LABS: ALKALINE PHOSPHATASE 63 U/L (45-117); AST/SGOT 13 U/L (15-37); TOTAL PROTEIN 6.7 gm/dl (6.4-8.2)
== END ==
LOC: C.LABUPNIT 08:21
PROVIDERS: ATTEND Nurse Practitioner Family
DX: J96.20 Acute and chronic respiratory failure, unspecified whether with hypoxia or hypercapnia (principal); E03.9 Hypothyroidism, unspecified; R53.1 Weakness

== ENCOUNTER → 2018-02-14 | Outpatient (CLI) | payer OTHER ==
[2018-02-14 08:32] LABS: BLOOD UREA NITROGEN 7 mg/dl (7-18); CALCIUM 9.1 mg/dl (8.5-10.1); CARBON DIOXIDE 35 mmol/L (21-32); CREATININE 0.43 mg/dl (0.60-1.20); GLUCOSE 108 mg/dl (70-99); POTASSIUM 3.9 mmol/L (3.5-5.1); SODIUM 131 mmol/L (136-145)
== END ==
LOC: C.LABUPNIT 08:12
PROVIDERS: ATTEND Nurse Practitioner Family
DX: E11.8 Type 2 diabetes mellitus with unspecified complications (principal)

== ENCOUNTER → 2018-02-20 | Outpatient (CLI) | payer OTHER ==
[~2018-02-20] MED LIST changes: -PRED10TA PO
[2018-02-20 09:06] LABS: BLOOD UREA NITROGEN 11 mg/dl (7-18); CALCIUM 9.3 mg/dl (8.5-10.1); CARBON DIOXIDE 33 mmol/L (21-32); CREATININE 0.49 mg/dl (0.60-1.20); GLUCOSE 173 mg/dl (70-99); POTASSIUM 4.1 mmol/L (3.5-5.1); SODIUM 131 mmol/L (136-145)
== END ==
LOC: C.LABUPNIT 08:15
PROVIDERS: ATTEND Nurse Practitioner Family
DX: E11.8 Type 2 diabetes mellitus with unspecified complications (principal)

== ENCOUNTER → 2018-02-22 | Outpatient (CLI) | payer OTHER ==
[2018-02-22 10:33] LABS: HEP C IGG 13 YRS+OLDER_RFLX NEG (NEG)
== END ==
LOC: C.LABUPNIT 08:52
PROVIDERS: ATTEND Nurse Practitioner Family
DX: K74.60 Unspecified cirrhosis of liver (principal)

== ENCOUNTER → 2018-02-27 | Outpatient (CLI) | payer OTHER ==
[2018-02-27 09:03] LABS: HEMATOCRIT 36.9 % (37-47); HEMOGLOBIN 11.7 g/dL (12.0-16.0); MEAN CELL VOLUME 97.1 fL (80-100); MEAN CORPUSCULAR HEMOGLOBIN 30.8 pg (25-34); MEAN CORPUSCULAR HGB CONC 31.7 g/dl (32-36); MEAN PLATELET VOLUME 9.2 fL (7.4-10.4); PLATELET COUNT 235 K/uL (130-400); RED CELL DISTRIBUTION WIDTH CV 13.1 % (11.5-14.5); RED CELL DISTRIBUTION WIDTH SD 46.2 fL (36.4-46.3); WHITE BLOOD COUNT 7.71 K/uL (4.8-10.8)
[2018-02-27 10:34] LABS: HEMOGLOBIN A1C 5.9 % (4.5-5.6)
== END ==
LOC: C.LABUPNIT 08:31
PROVIDERS: ATTEND Nurse Practitioner Family
DX: E11.8 Type 2 diabetes mellitus with unspecified complications (principal); A04.72 Enterocolitis due to Clostridium difficile, not specified as recurrent

== ENCOUNTER 2018-03-13 15:10 | Inpatient (IN) | payer OTHER ==
[~2018-03-13] VITALS: Ht 157.5 cm; Wt 128.0 kg
[~2018-03-13 15:10] MED LIST changes: -ASPEC81 PO; +ASPI-320 PO
[2018-03-13] MEDS ORDERED: FUROSEMIDE 40 MG/4 ML VIAL IV STA (15:27)
--- NOTE | 2018-03-13 15:28 | EMERGENCY ROOM VISIT NOTE ---
History Report prepared by Tom: Donald Covarrubias Under the Supervision of: Dr. Nura Roper M.D. First contact with patient: 15:22 Chief Complaint: RESPIRATORY PROBLEMS Stated Complaint: CHEST PAIN, SOB History of Present Illness The patient is a 57 year old female who presents to the Emergency Room with complaints of constant chest pain that began at 1200 today, 3.5 hours ago. The patient also complains of some shortness of breath. She is on 3 L of oxygen at home at baseline. She continued to make mention of some abdominal pain that onset today as well. Source of History: patient Onset: 3.5 hours ago Position: chest Timing: constant Associated Symptoms: + SOB, + abdominal pain Review of Systems See HPI for pertinent positives & negatives. A total of 10 systems reviewed and were otherwise negative. Past Medical & Surgical Medical Problems: (1) Asthma (2) Benign hypertension (3) Chronic obstructive lung disease (4) Cirrhosis of liver (5) Coronary atherosclerosis of [place] coronary vessel (6) DM type 2 (diabetes mellitus, type 2) (7) Hyperlipidemia (8) Hypothyroidism (9) Morbid obesity with BMI of 40.0-44.9, adult (10) Peripheral vascular disease (11) Pneumonia (12) Tobacco use disorder Surgical Problems: (1) History of hysterectomy (2) S/P cholecystectomy (3) S/P coronary artery stent placement (4) S/P tonsillectomy and adenoidectomy Family History FH: diabetes mellitus BROTHER Heart disease MOTHER BROTHER Lung disease FATHER (COPD) SISTER (COPD, asthma) Social History Smoking Status: Former Smoker Alcohol Use: none Drug Use: none Marital Status: single Housing Status: lives with family Occupation Status: disabled Current/Historical Medications Scheduled Aspirin (Aspirin EC Low Dose), 81 MG PO DAILY Atorvastatin (Lipitor), 40 MG PO DAILY Cholecalciferol (Vitamin D3), 2,000 UNITS PO DAILY Citalopram (Citalopram Hydrobromide), 20 MG PO QAM Clopidogrel Bisulfate (Clopidogrel), 75 MG PO DAILY Furosemide (Lasix), 20 MG PO DAILY Gabapentin (Gabapentin), 100 MG PO TID Home O2 Therapy (Oxygen), 4 LITERS NA CONTINOUS Insulin Glargine (Lantus Solostar), 55 UNITS SC QAM Insulin Lispro (Human) (Humalog Kwikpen), 20 UNITS SC TID Ipratropium-Albuterol (Combivent Respimat), 1 PUFFS INH QID Lactobacillus Acidophilus (Floranex), 1 TAB PO TID Levothyroxine Sodium (Levothyroxine Sodium), 200 MCG PO DAILY Pantoprazole Sodium (Protonix), 20 MG PO DAILY Potassium Chloride (Klor-Con M20), 20 MEQ PO QAM Scheduled PRN Acetaminophen (Tylenol), 650 MG PO Q6H PRN for Pain or Fever Albuterol Sulfate (Proair Respiclick), 2 PUFFS INH Q4H PRN for Shortness of Breath Bisacodyl (Bisacodyl Laxative), 10 MG RE DAILY PRN for Constipation Ipratropium-Albuterol (Duoneb), 3 ML INH Q6 PRN for SOB/Wheezing Miconazole Nitrate (Desenex Shake Powder), 1 APPLN EXT PRN PRN for Affected Skin Folds Sodium Phosphates (Fleet Enema Six Pack), 1 DOSE RE DAILY PRN for Constipation Allergies Coded Allergies: Penicillins (Verified Allergy, Intermediate, RASH, 08/31/17) Physical Exam Vital Signs Date Time Temp Pulse Resp B/P (MAP) Pulse Ox O2 Delivery O2 Flow Rate FiO2 03/13/18 16:48 94 20 96 BiPAP/CPAP 40 03/13/18 16:12 98 96 40 03/13/18 15:32 96 Nasal Cannula 4.0 03/13/18 15:28 65 03/13/18 15:24 92 Nasal Cannula 4.0 03/13/18 15:24 36.9 93 16 142/53 92 Nasal Cannula 4.0 Physical Exam GENERAL: Awake, alert, well-appearing, in no acute distress HENT: Normocephalic, atraumatic. Oropharynx unremarkable. EYES: Normal conjunctiva. Sclera non-icteric. NECK: Supple. No nuchal rigidity. FROM. No JVD. RESPIRATORY: Rales present to the right lower side of the chest. CARDIAC: Regular rate, normal rhythm. Extremities warm and well perfused. Pulses equal. ABDOMEN: Soft, non-distended. No tenderness to palpation. No rebound or guarding. No masses. RECTAL: Deferred. MUSCULOSKELETAL: Chest examination reveals no tenderness. The back is symmetrical on inspection without obvious abnormality. There is no CVA tenderness to palpation. No joint edema. LOWER EXTREMITIES: Calves are equal size bilaterally and non-tender. No edema. No discoloration. NEURO: Normal sensorium. No sensory or motor deficits noted. SKIN: No rash or jaundice noted. Medical Decision & Procedures ER Provider Diagnostic Interpretation: Radiology results as stated below per my review and radiologist interpretation: ABD/PELVIS WITHOUT FOR STONE HISTORY: 57 years-old Female Pt c/o abd pain acute generalized abdominal pain COMPARISON: CT abdomen and pelvis 06/21/2017, chest radiograph 03/13/2018 TECHNIQUE: Multiple axial CT images of the abdomen and pelvis were obtained without the use of IV contrast. A dose lowering technique was used consistent with the principals of NARCISA. FINDINGS: And bubbly imaged bibasilar consolidative opacities are noted with centrilobular nodules and moderate bibasilar bronchial wall thickening. There is no pneumatosis or pneumoperitoneum identified. Study is mildly motion degraded. The imaged inferior cardiac chambers are mildly enlarged. Coronary arterial disease. Mild contour nodularity of the liver is redemonstrated. Subcapsular hyperdensities involving the right hepatic lobe are unchanged as seen on image 191 series 3. Prior cholecystectomy. 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 Spleen, pancreas and right adrenal gland are unremarkable. There is mild thickening of the left adrenal gland. Kidneys, ureters and urinary bladder are unremarkable. No renal or ureteral calculi or obstructive uropathy. Bladder is unremarkable. Prior hysterectomy. No adnexal mass lesions. Calcifications about the pelvis suggest phleboliths, unchanged. Moderate atherosclerosis of the abdominal aorta without aneurysm. No bulky adenopathy. No bowel obstruction or focal bowel wall thickening. Noninflamed appendix. Mild subcutaneous edema about the lower anterior abdominal wall. Indeterminate 12 mm centimeters nodule of the anterior right lower abdominal wall, possibly reflecting an injection granuloma. Bones appear intact. Degenerative changes of the pelvis and lumbar spine are noted. IMPRESSION: 1. No acute intra-abdominal or intrapelvic abnormality identified. 2. No bowel obstruction or focal bowel wall thickening. Normal appendix. 3. Incompletely imaged bibasilar consolidative opacities with centrilobular nodules and bronchial wall thickening suggests bronchopneumonia. 4. Prior cholecystectomy and hysterectomy. The above report was generated using voice recognition software. It may contain grammatical, syntax or spelling errors. Electronically signed by: Selvin Lui M.D. 03/13/2018 4:04 PM Dictated Date/Time: 03/13/2018 3:56 PM CHEST ONE VIEW PORTABLE CLINICAL HISTORY: Shortness of breath COMPARISON STUDY: 02/03/2018 FINDINGS: The heart is borderline enlarged. There is been interval removal of the endotracheal tube. There are right lower lobe airspace opacity suspicious for a pneumonia. There is been interval improvement of the left lower lobe airspace opacities. There is persistent interstitial thickening.[ IMPRESSION: 1. Interval removal of the endotracheal tube 2. Persistent interstitial thickening/edema 3. Significant improvement in the previously identified left lower lobe airspace opacities 4. Developing right lower lobe airspace opacity suspicious for pneumonia, or less likely focal edema. Electronically signed by: Karthikeyan Olvera M.D. 03/13/2018 3:55 PM Dictated Date/Time: 03/13/2018 3:53 PM Laboratory Results 03/13/18 15:03 Red Blood Count 3.68, Mean Corpuscular Volume 96.2, Mean Corpuscular Hemoglobin 31.5, Mean Corpuscular Hemoglobin Concent 32.8, Mean Platelet Volume 8.9, Neutrophils (%) (Auto) 69.2, Lymphocytes (%) (Auto) 21.3, Monocytes (%) (Auto) 7.3, Eosinophils (%) (Auto) 1.0, Basophils (%) (Auto) 0.2, Neutrophils # (Auto) 3.62, Lymphocytes # (Auto) 1.11, Monocytes # (Auto) 0.38, Eosinophils # (Auto) 0.05, Basophils # (Auto) 0.01 03/13/18 15:03 Test 03/13/18 15:03 03/13/18 15:27 03/13/18 16:47 03/13/18 17:05 White Blood Count 5.22 K/uL (4.8-10.8) Red Blood Count 3.68 M/uL (4.2-5.4) Hemoglobin 11.6 g/dL (12.0-16.0) Hematocrit 35.4 % (37-47) Mean Corpuscular Volume 96.2 fL (80-100) Mean Corpuscular Hemoglobin 31.5 pg (25-34) Mean Corpuscular Hemoglobin Concent 32.8 g/dl (32-36) Platelet Count 171 K/uL (130-400) Mean Platelet Volume 8.9 fL (7.4-10.4) Neutrophils (%) (Auto) 69.2 % Lymphocytes (%) (Auto) 21.3 % Monocytes (%) (Auto) 7.3 % Eosinophils (%) (Auto) 1.0 % Basophils (%) (Auto) 0.2 % Neutrophils # (Auto) 3.62 K/uL (1.4-6.5) Lymphocytes # (Auto) 1.11 K/uL (1.2-3.4) Monocytes # (Auto) 0.38 K/uL (0.11-0.59) Eosinophils # (Auto) 0.05 K/uL (0-0.5) Basophils # (Auto) 0.01 K/uL (0-0.2) RDW Standard Deviation 46.4 fL (36.4-46.3) RDW Coefficient of Variation 13.3 % (11.5-14.5) Immature Granulocyte % (Auto) 1.0 % Immature Granulocyte # (Auto) 0.05 K/uL (0.00-0.02) Prothrombin Time 9.7 SECONDS (9.0-12.0) Prothromb Time International Ratio 0.9 (0.9-1.1) Anion Gap 4.0 mmol/L (3-11) Est Creatinine Clear Calc Drug Dose 147.9 ml/min Estimated GFR () 117.8 Estimated GFR (Non- 101.6 BUN/Creatinine Ratio 14.7 (10-20) Calcium Level 8.9 mg/dl (8.5-10.1) Total Bilirubin 0.3 mg/dl (0.2-1) Aspartate Amino Transf (AST/SGOT) 30 U/L (15-37) Alanine Aminotransferase (ALT/SGPT) 43 U/L (12-78) Alkaline Phosphatase 82 U/L (45-117) Total Creatine Kinase 125 U/L (26-192) Creatine Kinase MB 2.0 ng/ml (0.5-3.6) Creatine Kinase MB Ratio 1.6 (0-3.0) Troponin I < 0.015 ng/ml (0-0.045) Pro-B-Type Natriuretic Peptide 740 pg/ml (0-900) Total Protein 6.7 gm/dl (6.4-8.2) Albumin 2.7 gm/dl (3.4-5.0) Globulin 4.0 gm/dl (2.5-4.0) Albumin/Globulin Ratio 0.7 (0.9-2) Arterial Blood pH 7.37 (7.35-7.45) Arterial Blood Partial Pressure CO2 67 mmHg (35-46) Arterial Blood Partial Pressure O2 76 mm/Hg (80-95) Arterial Blood HCO3 38 mmol/L (19-24) Arterial Blood Oxygen Saturation 94.6 % (90-95) Arterial Blood Base Excess 10.2 mEq/L (-9-1.8) Arterial Blood Gas Delivery 40% Alon Test POS (POS) Influenza Type A Antigen Neg for Influ A (NEG) Influenza Type B Antigen Neg for Influ B (NEG) Labs reviewed by ED physician. Medications Administered Medications (Trade) Dose Ordered Sig/Abdi Route Start Time Stop Time Status Last Admin Dose Admin Furosemide (Lasix Inj) 40 mg NOW STAT IV 03/13/18 15:27 03/13/18 15:31 DC 03/13/18 15:27 40 MG Ceftriaxone Sodium (Rocephin Inj) 1 gm NOW STAT IV 03/13/18 16:02 03/13/18 16:04 DC 03/13/18 16:56 1 GM Albuterol/ Ipratropium (Duoneb) 12 ml ONE ONCE INH 03/13/18 16:15 03/13/18 16:16 DC 03/13/18 16:15 12 ML ECG Per My Interpretation Indication: chest pain Rate (beats per minute): 67 Rhythm: normal sinus Findings: other (No JACKIE/STD) ED Course 1524: Past medical records reviewed. The patient was evaluated in room C4. A complete history and physical examination was performed. 1527: Ordered Furosemide 40 mg IV. 1602: Ordered Levaquin 750 mg IV, Rocephin 1 gm IV. 1607: Ordered Vancomycin HCl 1 gm IV. 1611: I discussed the case with Elvia Cope [facility] Hospitalist BA. She will evaluate the patient for further treatment. 1615: Ordered Albuterol Duoneb 12 mL INH. Medical Decision Differential diagnosis: Etiologies such as cardiac ischemia, aortic dissection, pulmonary embolism, pneumonia, pneumothorax, musculoskeletal, infections, pericarditis, myocarditis , esophageal rupture, gastrointestinal, as well as others were entertained. This is a 57-year-old female who presents emergency department in respiratory distress. Patient is on 4 L of oxygen. She was given Lasix and a Hyde was placed here in the emergency department. She was also given an hour-long breathing treatment. Because the patient was complaining of abdominal pain she was sent for CAT scan of the abdomen and pelvis. This was concerning for bronchopneumonia. For this reason the patient was pancultured up and started on IV antibiotics. The patient was also placed on BiPAP. I did discuss the case with the hospitalist service who agreed to admit the patient. Patient and family were in agreement with the treatment plan. Medication Reconcilliation Current Medication List: was personally reviewed by me Blood Pressure Screening Patient's blood pressure: Elevated blood pressure Referred to hospitalist. Consults Time Called: 1609 Consulting Physician: Elvia COSME Returned Call: 1611 I discussed the case with Elvia COSME. She will evaluate the patient for further treatment. Impression Primary Impression: Hypoxia Additional Impression: Bronchopneumonia Critical Care I have personally spent greater than 30 minutes of critical care time in the direct management of this patient. This includes bedside care, interpretation of diagnostic studies, and testing, discussion with consultants, patient, and family members, and other required patient management activities. This 30 minutes is in excess of all separately billable procedures. Scribe Attestation The scribe's documentation has been prepared under my direction and personally reviewed by me in its entirety. I confirm that the note above accurately reflects all work, treatment, procedures, and medical decision making performed by me. Departure Information Dispostion Being Evaluated By Hospitalist Referrals Guanako Sandoval (PCP) Patient Instructions My [facility] Problem Qualifiers
[2018-03-13 15:46] LABS: INR 0.9 (0.9-1.1)
[2018-03-13 15:48] LABS: BASO % 0.2 %; BASO ABS # 0.01 K/uL (0-0.2); EOS ABS # 0.05 K/uL (0-0.5); HEMATOCRIT 35.4 % (37-47); HEMOGLOBIN 11.6 g/dL (12.0-16.0); IG# 0.05 K/uL (0.00-0.02); LYMPH % 21.3 %; LYMPH ABS # 1.11 K/uL (1.2-3.4); MEAN CELL VOLUME 96.2 fL (80-100); MEAN CORPUSCULAR HEMOGLOBIN 31.5 pg (25-34); MEAN CORPUSCULAR HGB CONC 32.8 g/dl (32-36); MEAN PLATELET VOLUME 8.9 fL (7.4-10.4); MONO % 7.3 %; MONO ABS # 0.38 K/uL (0.11-0.59); NEUT % 69.2 %; NEUT ABS # 3.62 K/uL (1.4-6.5); PLATELET COUNT 171 K/uL (130-400); RED CELL DISTRIBUTION WIDTH CV 13.3 % (11.5-14.5); RED CELL DISTRIBUTION WIDTH SD 46.4 fL (36.4-46.3); WHITE BLOOD COUNT 5.22 K/uL (4.8-10.8)
--- NOTE | 2018-03-13 15:56 | DIAGNOSTIC IMAGING REPORT ---
CHEST ONE VIEW PORTABLE CLINICAL HISTORY: Shortness of breath COMPARISON STUDY: 02/03/2018 FINDINGS: The heart is borderline enlarged. There is been interval removal of the endotracheal tube. There are right lower lobe airspace opacity suspicious for a pneumonia. There is been interval improvement of the left lower lobe airspace opacities. There is persistent interstitial thickening.[ IMPRESSION: 1. Interval removal of the endotracheal tube 2. Persistent interstitial thickening/edema 3. Significant improvement in the previously identified left lower lobe airspace opacities 4. Developing right lower lobe airspace opacity suspicious for pneumonia, or less likely focal edema. Electronically signed by: Karthikeyan Olvera M.D. 03/13/2018 3:55 PM Dictated Date/Time: 03/13/2018 3:53 PM
[2018-03-13 15:59] LABS: ALBUMIN 2.7 gm/dl (3.4-5.0); ALT/SGPT 43 U/L (12-78); AST/SGOT 30 U/L (15-37); BLOOD UREA NITROGEN 8 mg/dl (7-18); CALCIUM 8.9 mg/dl (8.5-10.1); CARBON DIOXIDE 36 mmol/L (21-32); CREATININE 0.58 mg/dl (0.60-1.20); GLUCOSE 138 mg/dl (70-99); POTASSIUM 4.2 mmol/L (3.5-5.1); SODIUM 128 mmol/L (136-145)
[2018-03-13] MEDS ORDERED: CEFTRIAXONE SOD INJ 1 GM ADDVIAL IV STA (16:02)
[2018-03-13] MEDS ORDERED: LEVAQUIN 750MG / 150ML D5W IV STA (16:02)
[2018-03-13 16:04] LABS: ALKALINE PHOSPHATASE 82 U/L (45-117); TOTAL PROTEIN 6.7 gm/dl (6.4-8.2)
--- NOTE | 2018-03-13 16:05 | DIAGNOSTIC IMAGING REPORT ---
ABD/PELVIS WITHOUT FOR STONE HISTORY: 57 years-old Female Pt c/o abd pain acute generalized abdominal pain COMPARISON: CT abdomen and pelvis 06/21/2017, chest radiograph 03/13/2018 TECHNIQUE: Multiple axial CT images of the abdomen and pelvis were obtained without the use of IV contrast. A dose lowering technique was used consistent with the principals of NARCISA. FINDINGS: And bubbly imaged bibasilar consolidative opacities are noted with centrilobular nodules and moderate bibasilar bronchial wall thickening. There is no pneumatosis or pneumoperitoneum identified. Study is mildly motion degraded. The imaged inferior cardiac chambers are mildly enlarged. Coronary arterial disease. Mild contour nodularity of the liver is redemonstrated. Subcapsular hyperdensities involving the right hepatic lobe are unchanged as seen on image 191 series 3. Prior cholecystectomy. 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 Spleen, pancreas and right adrenal gland are unremarkable. There is mild thickening of the left adrenal gland. Kidneys, ureters and urinary bladder are unremarkable. No renal or ureteral calculi or obstructive uropathy. Bladder is unremarkable. Prior hysterectomy. No adnexal mass lesions. Calcifications about the pelvis suggest phleboliths, unchanged. Moderate atherosclerosis of the abdominal aorta without aneurysm. No bulky adenopathy. No bowel obstruction or focal bowel wall thickening. Noninflamed appendix. Mild subcutaneous edema about the lower anterior abdominal wall. Indeterminate 12 mm centimeters nodule of the anterior right lower abdominal wall, possibly reflecting an injection granuloma. Bones appear intact. Degenerative changes of the pelvis and lumbar spine are noted. IMPRESSION: 1. No acute intra-abdominal or intrapelvic abnormality identified. 2. No bowel obstruction or focal bowel wall thickening. Normal appendix. 3. Incompletely imaged bibasilar consolidative opacities with centrilobular nodules and bronchial wall thickening suggests bronchopneumonia. 4. Prior cholecystectomy and hysterectomy. The above report was generated using voice recognition software. It may contain grammatical, syntax or spelling errors. Electronically signed by: Selvin Lui M.D. 03/13/2018 4:04 PM Dictated Date/Time: 03/13/2018 3:56 PM
[2018-03-13] MEDS ORDERED: VANCOMYCIN 1GM ED/ASU OMNICELL IV STA (16:07)
[2018-03-13 16:12] VITALS: PULSE 98; O2SAT 96
[2018-03-13] MEDS ORDERED: ALBUT/IPRATROP 3MG/0.5MG NEB 3 ML VIAL INH ONE (16:15)
[2018-03-13 16:48] VITALS: PULSE 94; O2SAT 96
[2018-03-13] MEDS ORDERED: FURO-85 PO (16:50)
[2018-03-13] MEDS ORDERED: CHOL20007 PO (16:51)
[2018-03-13] MEDS ORDERED: ACET-1311 PO (16:53)
[2018-03-13] MEDS ORDERED: IPRASOL4 INH (16:55)
[2018-03-13] MEDS ORDERED: ACETAMINOPHEN 325 MG TAB PO PRN (17:15)
[2018-03-13] MEDS ORDERED: ONDANSETRON INJ 2 MG/ML 2 ML VIAL IV PRN (17:15)
[2018-03-13] MEDS ORDERED: BISA1SUP4 RE (17:27)
[2018-03-13] MEDS ORDERED: SODI1ENE RE (17:27)
[2018-03-13] MEDS ORDERED: DEXTROSE 50% 50 ML SYR IV PRN (17:30)
[2018-03-13] MEDS ORDERED: GLUCAGON FOR INJ 1 MG VIAL SQ PRN (17:30)
[2018-03-13] MEDS ORDERED: GLUCOSE 40% GEL 15 GM TUBE PO PRN (17:30)
[2018-03-13] MEDS ORDERED: GLUCOSE 10 TABS/TUBE PO PRN (17:30)
[2018-03-13 17:42] LABS: INFLUENZA B ANTIGEN Neg for Influ B (NEG)
[2018-03-13] MEDS ORDERED: CONSULT PHARMACY STA (18:21)
[2018-03-13] MEDS ORDERED: PHARMACY GLYCEMIC MGMT CONSULT PRN (18:24)
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
[2018-03-13] MEDS ORDERED: VANCOMYCIN CONSULT ACTIVE PRN (19:00)
[2018-03-13] MEDS ORDERED: VANCOMYCIN IV 2,500 MG in SODIUM CHLORIDE 0.9% 500ML 500 ML IV SCH (19:00)
[2018-03-13] MEDS: ALBUT/IPRATROP 3MG/0.5MG NEB 3 ML VIAL INH SCH (19:59)
[2018-03-13 20:15] VITALS: BP 110/62; PULSE 71; TEMP 37.3; O2SAT 90; BMI 53.8
[2018-03-13] MEDS ORDERED: LEVOFLOXACIN / D5W 750 MG in PREMIXED IN D5W 150 ML IV SCH (21:00)
[2018-03-13] MEDS ORDERED: INSULIN GLARGINE SC SCH (21:00)
--- NOTE | 2018-03-13 21:23 | Pharmacy Progress Note ---
Pharmacy Abx Dose Short Note Date of Service Mar 13, 2018. Assessment & Plan Assessment 57 year old female receiving vancomycin and Levaquin for treatment of COPD exacerbation. Patient has a PMH of asthma and COPD on 4 liters of oxygen at home. She was recently hospitalized and on Levaquin, vancomycin, and cefepime. Plan Vancomycin * Vancomycin 2500 mg IV x 1 (18.7 mg/kg/dose) then vancomycin 1500 mg IV q12 hours (10.5 mg/kg/dose; previous data suggests that patient significantly accumulates. Patient was stable on q12 dosing which is reasonable for her age and kidney function) * Obtain trough level prior to 0600 dose on 03/15/18 (4th maintenance dose) Pharmacy will continue to follow and will adjust dose/frequency as necessary. Thank you.
[2018-03-13] MEDS: ENOXAPARIN 40 MG/0.4 ML SYR SC SCH (21:32)
[2018-03-13] MEDS: METHYLPREDNISOLONE IV 60 MG in SYRINGE 0 ML IV SCH (21:32)
[2018-03-13] MEDS: LACTOBACILLUS ACIDOPHILUS (FLORANEX) TAB PO SCH (21:33)
[2018-03-13] MEDS: GABAPENTIN 100 MG CAP PO SCH (21:33)
[2018-03-13] MEDS: INSULIN ASPART 100 UNITS/ML 3 ML PEN SC SCH (21:35)
[2018-03-13 23:36] VITALS: BP 156/64; PULSE 75; TEMP 37.2; O2SAT 91
[2018-03-14] VITALS (11 sets, daily range): BP systolic 108–188; BP diastolic 62–89; PULSE 65–90; TEMP 36.6–37.2; O2SAT 89–92
[2018-03-14] MEDS: ALBUT/IPRATROP 3MG/0.5MG NEB 3 ML VIAL INH SCH ×4 (01:54→19:35)
[2018-03-14 02:25] LABS: HEMATOCRIT 38.7 % (37-47); HEMOGLOBIN 12.9 g/dL (12.0-16.0); MEAN CELL VOLUME 94.9 fL (80-100); MEAN CORPUSCULAR HEMOGLOBIN 31.6 pg (25-34); MEAN CORPUSCULAR HGB CONC 33.3 g/dl (32-36); MEAN PLATELET VOLUME 8.5 fL (7.4-10.4); PLATELET COUNT 148 K/uL (130-400); RED CELL DISTRIBUTION WIDTH CV 13.3 % (11.5-14.5); RED CELL DISTRIBUTION WIDTH SD 45.9 fL (36.4-46.3); WHITE BLOOD COUNT 7.86 K/uL (4.8-10.8)
[2018-03-14 02:46] LABS: BLOOD UREA NITROGEN 10 mg/dl (7-18); CALCIUM 9.2 mg/dl (8.5-10.1); CARBON DIOXIDE 36 mmol/L (21-32); CREATININE 0.64 mg/dl (0.60-1.20); GLUCOSE 214 mg/dl (70-99); POTASSIUM 4.4 mmol/L (3.5-5.1); SODIUM 128 mmol/L (136-145)
[2018-03-14] MEDS: METHYLPREDNISOLONE IV 60 MG in SYRINGE 0 ML IV SCH ×2 (03:05→07:53)
[2018-03-14] MEDS: LEVOTHYROXINE 200 MCG TAB PO SCH (05:27)
[2018-03-14] MEDS ORDERED: VANCOMYCIN IV 1,500 MG in SODIUM CHLORIDE 0.9% 500ML 500 ML IV SCH (06:00)
[2018-03-14] MEDS: CLOPIDOGREL BISULFATE 75 MG TAB PO SCH (07:46)
[2018-03-14] MEDS: ATORVASTATIN 40 MG TAB PO SCH (07:46)
[2018-03-14] MEDS: LACTOBACILLUS ACIDOPHILUS (FLORANEX) TAB PO SCH ×3 (07:46→20:43)
[2018-03-14] MEDS: ASPIRIN 81 MG ECTAB PO SCH (07:47)
[2018-03-14] MEDS: POTASSIUM CHLORIDE 20 MEQ TABCR PO SCH (07:47)
[2018-03-14] MEDS: FUROSEMIDE 20 MG TAB PO SCH (07:47)
[2018-03-14] MEDS: PANTOprazole SOD 40 MG TAB PO SCH (07:47)
[2018-03-14] MEDS: CITALOPRAM 20 MG TAB PO SCH (07:47)
[2018-03-14] MEDS: CHOLECALCIFEROL 1000 INTER.UNIT TAB PO SCH (07:47)
[2018-03-14] MEDS: GABAPENTIN 100 MG CAP PO SCH ×3 (07:47→20:43)
[2018-03-14] MEDS: INSULIN ASPART 100 UNITS/ML 3 ML PEN SC SCH ×5 (07:49→23:58)
[2018-03-14] MEDS: INSULIN GLARGINE SC SCH (07:50)
--- NOTE | 2018-03-14 10:04 | Clinical Documentation Query ---
[facility] : CLINICAL DOCUMENTATION QUERIES QUERY 1 OF 2 Patient is a 57 year old female admitted for: "HCAP COPD EXACERBATION CHRONIC HYPOXIC, HYPERCAPNIC RESPIRATORY FAILURE" In the setting of recent hospitalization requiring mechanical ventilation, snf residence, and recent antibiotic use, consider documentation as below as clinically appropriate. She is being treated with IV Levaquin, sputum and blood cultures, ATC nebs, steroids, and monitored on telemetry. In your clinical opinion is this patient being managed for: ( + ) Pneumonia (possibly) due to Gram-negative bacteria ( ) Not Agree ( ) Other explanation of clinical findings (Please Explain) ( ) Unable to determine (Please Define) ( ) Need to Discuss The medical record reflects the following clinical findings, treatment, and risk factors. Clinical Indicators: As above Treatment: IV Levaquin, sputum, blood cultures, telemetry, supplemental O2, ABG, IV steroids, ATC nebs. Risk Factors: Recent hospitalization, snf residence, recent antibiotics QUERY 2 OF 2 Documentation includes "Also may have some component of volume overload/diastolic heart failure". As appropriate, please consider explicit documentation of the acuity of CHF in your patient as this effects accurate DRG assignment. Thank you. In your clinical opinion is this patient being managed for: ( + ) Acute diastolic CHF ( ) Not Agree ( ) Other explanation of clinical findings (Please Explain) ( ) Unable to determine (Please Define) ( ) Need to Discuss The medical record reflects the following clinical findings, treatment, and risk factors. Clinical Indicators: As above Treatment:Lasix 40 mg IV in the ED, continue home dose of furosemide 20 mg p.o. daily for now, telemetry, I/O, daily weights, AHA, CHAPARRO, DM diet Risk Factors: Obesity, hypertension, COPD, liver cirrhosis Please clarify and document your clinical opinion in the progress notes and discharge summary. Terms such as "probable", "suspected", "likely", "questionable", "possible", or "still to be ruled out" are acceptable. IF IN AGREEMENT, YOU MUST DOCUMENT ABOVE DIAGNOSTIC STATEMENT IN DAILY PROGRESS NOTES AND DISCHARGE SUMMARY. This document is not part of the patient's record. Thank You, Matty Adam, RN [phone]
--- NOTE | 2018-03-14 10:43 | Progress Note ---
Internal Med Progress Note Date of Service: Mar 14, 2018. Provider Documentation: SUBJECTIVE: The patient was seen and examined in telemetry unit. She was admitted with shortness of breath cough and chest pain. Noted to have new right basilar infiltration on x-ray. She feels better and besides minimal cough no other significant symptoms today. OBJECTIVE: Vital Signs-as noted below Exam: General-minimal distress at rest Eyes-normal ENT-normal Neck-supple Lungs-decreased breath sounds bilaterally with occasional wheezing and bibasilar rales Heart-S1-S2 regular, no murmur appreciated Abdomen-benign, nontender, bowel sounds present Extremities-trace edema bilaterally Neuro-alert awake oriented 3 Generally weak but no focal neuro deficit Lab data as noted below. ASSESSMENT & PLAN: HCAP-possible gram-negative bacteria. COPD EXACERBATION CHRONIC HYPOXIC, HYPERCAPNIC RESPIRATORY FAILURE-required to mechanical ventilation during recent admission to the hospital. -Patient presenting from [facility] with increasing shortness of breath, cough, chest pain; in the ED, chest x-ray suggests a right basilar pneumonia -Required BiPAP however was transitioned back to nasal cannula during my exam and is doing well -ABG shows an elevated CO2 with normal pH -Has been on intravenous vancomycin and Levaquin, received a dose of ceftriaxone in the ER as well -History does not suggest aspiration, however given the location of pneumonia we will have speech evaluate the patient -Blood and sputum cultures-pending -IV steroids, [id number] nebulizer treatments -We will discontinue vancomycin as MRSA screen is negative -Clinically better CHEST PAIN, HISTORY CAD -Chest pain reproducible with chest wall palpation on exam -Low suspicion for PE, if patient does not improve with above treatments could consider workup -Initial troponin negative, EKG without acute ST changes -Serial troponins are negative for any ACS and she does not have any more chest pain -Continue aspirin, statin, Plavix Possible acute on chronic diastolic heart failure No obvious fluid overload and/or CHF Received 40 of IV Lasix in the ER and will continue smaller doses Clinically better DIABETES -Recent Hgb A1c 5.9 -Lantus and NovoLog per protocol HYPOTHYROIDISM -Continue levothyroxine DVT PROPHYLAXIS -SQ Lovenox CODE STATUS -Patient is a full code as per my discussion with her as well as POLST form that was sent with the patient. DISPOSITION PT and OT evaluation Likely back to [facility] in a day or 2. Vital Signs: Date Time Temp Pulse Resp B/P (MAP) Pulse Ox O2 Delivery O2 Flow Rate FiO2 03/14/18 08:00 Nasal Cannula 3.0 03/14/18 07:07 37.1 67 20 167/89 (115) 90 Nasal Cannula 4.0 03/14/18 07:05 68 20 90 Nasal Cannula 4.0 03/14/18 04:00 Nasal Cannula 3.0 03/14/18 03:53 37.2 70 26 152/71 (98) 90 Nasal Cannula 4.0 03/14/18 01:54 71 20 91 Nasal Cannula 4.0 03/14/18 00:03 Nasal Cannula 3.0 03/13/18 23:36 37.2 75 24 156/64 (94) 91 Nasal Cannula 3.0 03/13/18 20:15 37.3 71 22 110/62 90 Nasal Cannula 3.0 03/13/18 19:45 58 22 121/42 92 03/13/18 16:48 94 20 96 BiPAP/CPAP 40 03/13/18 16:12 98 96 40 03/13/18 15:32 96 Nasal Cannula 4.0 03/13/18 15:28 65 03/13/18 15:24 92 Nasal Cannula 4.0 03/13/18 15:24 36.9 93 16 142/53 92 Nasal Cannula 4.0 Lab Results: Results Past 24 Hours Test 03/13/18 15:03 03/13/18 16:47 03/13/18 17:05 03/13/18 18:07 Range/Units White Blood Count 5.22 4.8-10.8 K/uL Red Blood Count 3.68 4.2-5.4 M/uL Hemoglobin 11.6 12.0-16.0 g/dL Hematocrit 35.4 37-47 % Mean Corpuscular Volume 96.2 80-100 fL Mean Corpuscular Hemoglobin 31.5 25-34 pg Mean Corpuscular Hemoglobin Concent 32.8 32-36 g/dl Platelet Count 171 130-400 K/uL Mean Platelet Volume 8.9 7.4-10.4 fL Neutrophils (%) (Auto) 69.2 % Lymphocytes (%) (Auto) 21.3 % Monocytes (%) (Auto) 7.3 % Eosinophils (%) (Auto) 1.0 % Basophils (%) (Auto) 0.2 % Neutrophils # (Auto) 3.62 1.4-6.5 K/uL Lymphocytes # (Auto) 1.11 1.2-3.4 K/uL Monocytes # (Auto) 0.38 0.11-0.59 K/uL Eosinophils # (Auto) 0.05 0-0.5 K/uL Basophils # (Auto) 0.01 0-0.2 K/uL RDW Standard Deviation 46.4 36.4-46.3 fL RDW Coefficient of Variation 13.3 11.5-14.5 % Immature Granulocyte % (Auto) 1.0 % Immature Granulocyte # (Auto) 0.05 0.00-0.02 K/uL Prothrombin Time 9.7 9.0-12.0 SECONDS Prothromb Time International Ratio 0.9 0.9-1.1 Sodium Level 128 136-145 mmol/L Potassium Level 4.2 3.5-5.1 mmol/L Chloride Level 88 98-107 mmol/L Carbon Dioxide Level 36 21-32 mmol/L Anion Gap 4.0 3-11 mmol/L Blood Urea Nitrogen 8 7-18 mg/dl Creatinine 0.58 0.60-1.20 mg/dl Est Creatinine Clear Calc Drug Dose 147.9 ml/min Estimated GFR () 117.8 Estimated GFR (Non- 101.6 BUN/Creatinine Ratio 14.7 10-20 Random Glucose 138 70-99 mg/dl Calcium Level 8.9 8.5-10.1 mg/dl Total Bilirubin 0.3 0.2-1 mg/dl Aspartate Amino Transf (AST/SGOT) 30 15-37 U/L Alanine Aminotransferase (ALT/SGPT) 43 12-78 U/L Alkaline Phosphatase 82 45-117 U/L Total Creatine Kinase 125 26-192 U/L Creatine Kinase MB 2.0 0.5-3.6 ng/ml Creatine Kinase MB Ratio 1.6 0-3.0 Troponin I < 0.015 0-0.045 ng/ml Pro-B-Type Natriuretic Peptide 740 0-900 pg/ml Total Protein 6.7 6.4-8.2 gm/dl Albumin 2.7 3.4-5.0 gm/dl Globulin 4.0 2.5-4.0 gm/dl Albumin/Globulin Ratio 0.7 0.9-2 Arterial Blood pH 7.37 7.35-7.45 Arterial Blood Partial Pressure CO2 67 35-46 mmHg Arterial Blood Partial Pressure O2 76 80-95 mm/Hg Arterial Blood HCO3 38 19-24 mmol/L Arterial Blood Oxygen Saturation 94.6 90-95 % Arterial Blood Base Excess 10.2 -9-1.8 mEq/L Arterial Blood Gas Delivery 40% Aoln Test POS POS Influenza Type A Antigen Neg for Influ A NEG Influenza Type B Antigen Neg for Influ B NEG Bedside Glucose 131 70-90 mg/dl Test 03/13/18 20:00 03/13/18 20:42 03/13/18 21:03 03/14/18 02:18 Range/Units Urine Color YELLOW Urine Appearance CLEAR CLEAR Urine pH 5.0 4.5-7.5 Urine Specific [place] 1.008 1.000-1.030 Urine Protein NEG NEG Urine Glucose (UA) NEG NEG Urine Ketones NEG NEG Urine Occult Blood NEG NEG Urine Nitrite NEG NEG Urine Bilirubin NEG NEG Urine Urobilinogen NEG NEG Urine Leukocyte Esterase NEG NEG Bedside Glucose 168 70-90 mg/dl Troponin I < 0.015 < 0.015 0-0.045 ng/ml White Blood Count 7.86 4.8-10.8 K/uL Red Blood Count 4.08 4.2-5.4 M/uL Hemoglobin 12.9 12.0-16.0 g/dL Hematocrit 38.7 37-47 % Mean Corpuscular Volume 94.9 80-100 fL Mean Corpuscular Hemoglobin 31.6 25-34 pg Mean Corpuscular Hemoglobin Concent 33.3 32-36 g/dl RDW Standard Deviation 45.9 36.4-46.3 fL RDW Coefficient of Variation 13.3 11.5-14.5 % Platelet Count 148 130-400 K/uL Mean Platelet Volume 8.5 7.4-10.4 fL Sodium Level 128 136-145 mmol/L Potassium Level 4.4 3.5-5.1 mmol/L Chloride Level 89 98-107 mmol/L Carbon Dioxide Level 36 21-32 mmol/L Anion Gap 3.0 3-11 mmol/L Blood Urea Nitrogen 10 7-18 mg/dl Creatinine 0.64 0.60-1.20 mg/dl Est Creatinine Clear Calc Drug Dose 126.1 ml/min Estimated GFR () 114.0 Estimated GFR (Non- 98.4 BUN/Creatinine Ratio 15.8 10-20 Random Glucose 214 70-99 mg/dl Calcium Level 9.2 8.5-10.1 mg/dl Magnesium Level 1.8 1.8-2.4 mg/dl Test 03/14/18 06:33 Range/Units Bedside Glucose 259 70-90 mg/dl Microbiology Results 03/13/18 Blood Culture, Received Pending 03/13/18 Blood Culture, Received Pending 03/13/18 MRSA DNA Surveillance Screen - Final, Complete Specimen Positive for MRSA by DNA Probe
--- NOTE | 2018-03-14 11:01 | Pharmacy Progress Note ---
Glycemic Control Intl Consult Date of Service Mar 14, 2018. Scope Glycemic Pharmacist consulted by Alee on 03/13/18 for glycemic control and to write orders per [facility] inpatient glycemic control protocol. Objective Weight (Kilograms): 131.500 Accuchecks BSG (last 24hrs): Test 03/13/18 15:03 03/13/18 18:07 03/13/18 20:42 03/14/18 02:18 Random Glucose 138 mg/dl (70-99) 214 mg/dl (70-99) Bedside Glucose 131 mg/dl (70-90) 168 mg/dl (70-90) Test 03/14/18 06:33 Bedside Glucose 259 mg/dl (70-90) Laboratory Data (last 24hrs) Test 03/13/18 15:03 03/14/18 02:18 Anion Gap 4.0 mmol/L 3.0 mmol/L BUN/Creatinine Ratio 14.7 15.8 Blood Urea Nitrogen 8 mg/dl 10 mg/dl Creatinine 0.58 mg/dl 0.64 mg/dl Potassium Level 4.2 mmol/L 4.4 mmol/L Sodium Level 128 mmol/L 128 mmol/L White Blood Count 5.22 K/uL 7.86 K/uL Red Blood Count 3.68 M/uL Hemoglobin 11.6 g/dL Hematocrit 35.4 % Mean Corpuscular Volume 96.2 fL Mean Corpuscular Hemoglobin 31.5 pg Mean Corpuscular Hemoglobin Concent 32.8 g/dl Platelet Count 171 K/uL Mean Platelet Volume 8.9 fL Neutrophils (%) (Auto) 69.2 % Lymphocytes (%) (Auto) 21.3 % Monocytes (%) (Auto) 7.3 % Eosinophils (%) (Auto) 1.0 % Basophils (%) (Auto) 0.2 % Neutrophils # (Auto) 3.62 K/uL Lymphocytes # (Auto) 1.11 K/uL Monocytes # (Auto) 0.38 K/uL Eosinophils # (Auto) 0.05 K/uL Basophils # (Auto) 0.01 K/uL Recent Pertinent Medications Outpatient Anti-diabetic Regimen: * Lantus 55 units SQ qAM * Humalog 20 units SQ TID * A1c = 5.9% (02/27/18) Risk Factors for Insulin Resistance: * Steroids: SoluMedrol 60mg IV q6h * Infection: LVQ, Vancomycin (for pulm infx) * Diet: Type 2 diabetic, AHA, low Na Assessment & Plan ASSESSMENT: * Ms De Anda is a 57yo diabetic female admitted with pneumonia. * Patient was initiated on high-dose IV steroids on admission. * Pt's fasting BSG was elevated this morning, so Lantus dose was increased. Novolog parameters are "tight" to maximize coverage while on steroids. Expect the most profound effect on BSGs to be postprandial. * Steroids cut back today: SoluMedrol 60mg q6h --> Prednisone 40mg daily * Will continue to adjust as needed, especially when any changes are made to steroid regimen. PLAN FOR INPATIENT GLYCEMIC CONTROL: * Basal insulin with LANTUS 70 units SQ daily * Will decrease dose tomorrow, as steroids have been significantly decreased * Correctional Insulin with NOVOLOG per scale ACHS plus 0000 and 0400 until hyperglycemia resolved -- Will loosen parameters starting this evening, as pt's insulin requirements are expected to be less with lower steroid dose * Goal Range: Low 110 mg/dL - High 140 mg/dL * Correction Factor: 10 mg/dL/unit --> Loosen to 15 mg/dL/unit this evening * Nutritional / Prandial insulin per carb ratio of 1 unit per 3 grams CHO consumed --> Loosen to 1 unit per 5 gm CHO this evening * Please note that the plan above was derived based on current level of insulin resistance and hospital stress. These recommendations are appropriate for inpatient admission only. Plan of care upon discharge will need to be reassessed to avoid potential outpatient hypo/hyperglycemia. Thank you.
[2018-03-14] MEDS ORDERED: VANCOMYCIN CONSULT ACTIVE PRN (11:15)
--- NOTE | 2018-03-14 13:08 | Pulmonary Consultation ---
History General Date of Service: Mar 14, 2018. Stated Complaint: Pneumonia HPI Dear Elvia: Thank you for your kind referral of Mrs. De Anda to pulmonary service. This is 57-year-old female with history of morbid obesity, COPD, home O2 dependent, history of coronary artery disease status post stent placement, liver cirrhosis , possible obstructive sleep apnea but she is not treated for it, has been recently at the rehab where according to her she had an event where an object went into her anterior aspect of her chest and after that started having significant chest pain. The patient was brought to the ER for further evaluation. No evidence of fractures or internal injury was noted. The patient underwent workup including laboratory as well as x-rays including chest x-ray and abdominal CAT scan both of them showing evidence of subsegmental atelectasis bilaterally. No pleural effusion on either side. No intra-abdominal catastrophe either. Although it appeared as consolidative infiltrate however it is more of atelectasis than consolidation. In questioning the patient, she denies any shortness of breath, but she is minimally ambulatory, only with a walker for a few steps. The patient does have reproducible chest pain by touching, mainly at the sternal area at the costochondral area. She did not have any orthopnea, no increased swelling in her lower extremities, no nausea or vomiting reported. No hemoptysis no melena and no hematochezia. The rest of her review of system was unremarkable. Historian: patient, other (Records) Review of Systems Constitutional: reports: no symptoms Eyes: reports: no symptoms ENT: reports: no symptoms Cardiovascular: reports: chest pain Respiratory: reports: cough Gastrointestinal: reports: no symptoms Genitourinary - Female: reports: no symptoms Musculoskeletal: reports: no symptoms Neurologic: reports: no symptoms Psychiatric: reports: depression Hematologic / Lymphatic: no symptoms Family History FH: diabetes mellitus BROTHER Heart disease MOTHER BROTHER Lung disease FATHER (COPD) SISTER (COPD, asthma) Social History Hx Tobacco Use In Past Year?: Yes Smoking Status: Former Smoker Marital status: single Housing status: prison History of MDRO History of MDRO: Yes Type of MDRO: MRSA Allergies Coded Allergies: Penicillins (Verified Allergy, Intermediate, RASH, 08/31/17) Current Medications Reported Home Medications Medications Dose Route/Sig Max Daily Dose Days Date Category Fleet Enema Six Pack (Sodium Phosphates) 1 Charissa Charissa 1 Dose RE DAILY PRN 03/13/18 Reported Bisacodyl Laxative (Bisacodyl) 10 Mg Sup 10 Mg RE DAILY PRN 03/13/18 Reported Duoneb (Ipratropium-Albuterol) 3 Ml Nebu 3 Ml INH Q6 PRN 03/13/18 Reported Tylenol (Acetaminophen) 325 Mg Tab 650 Mg PO Q6H PRN 03/13/18 Reported Vitamin D3 (Cholecalciferol) 2,000 Unit Tab 2,000 Units PO DAILY 90 03/13/18 Reported Lasix (Furosemide) 20 Mg Tab 20 Mg PO DAILY 03/13/18 Reported Desenex Shake Powder (Miconazole Nitrate) 43 Appln/43 Gm Powd 1 Appln EXT PRN PRN 30 02/07/18 Rx Klor-Con M20 (Potassium Chloride) 20 Meq Tabcr 20 Meq PO QAM 30 02/07/18 Rx Citalopram Hydrobromide (Citalopram) 20 Mg Tab 20 Mg PO QAM 08/31/17 Reported Floranex (Lactobacillus Acidophilus) 1 Tab Tab 1 Tab PO TID 06/24/17 Rx Combivent Respimat (Ipratropium-Albuterol) 1 Aer Aer 1 Puffs INH QID 30 06/24/17 Rx Oxygen Gas 4 Liters NA CONTINOUS 30 06/24/17 Rx Gabapentin 100 Mg Cap 100 Mg PO TID 05/28/17 Reported Clopidogrel (Clopidogrel Bisulfate) 75 Mg Tab 75 Mg PO DAILY 05/28/17 Reported Protonix (Pantoprazole Sodium) 20 Mg Tab 20 Mg PO DAILY 05/28/17 Reported Lipitor (Atorvastatin Calcium) 40 Mg Tab 40 Mg PO DAILY 05/28/17 Reported Levothyroxine Sodium 200 Mcg Tab 200 Mcg PO DAILY 05/28/17 Reported Humalog Kwikpen (Insulin Lispro (Human)) 100 Unit/Ml Inj 20 Units SC TID 05/28/17 Reported Lantus Solostar (Insulin Glargine) 100 Unit/Ml Inj 55 Units SC QAM 05/28/17 Reported Proair Respiclick (Albuterol Sulfate) 108 Mcg/Act Aer 2 Puffs INH Q4H PRN 05/28/17 Reported Aspirin EC Low Dose (Aspirin) 81 Mg Ectab 81 Mg PO DAILY 02/28/16 Reported Physical Physical Exam Vital Signs: Date Time Temp Pulse Resp B/P (MAP) Pulse Ox O2 Delivery O2 Flow Rate FiO2 03/14/18 08:00 Nasal Cannula 3.0 03/14/18 07:07 37.1 67 20 167/89 (115) 90 Nasal Cannula 4.0 03/14/18 07:05 68 20 90 Nasal Cannula 4.0 03/14/18 04:00 Nasal Cannula 3.0 03/14/18 03:53 37.2 70 26 152/71 (98) 90 Nasal Cannula 4.0 03/14/18 01:54 71 20 91 Nasal Cannula 4.0 03/14/18 00:03 Nasal Cannula 3.0 03/13/18 23:36 37.2 75 24 156/64 (94) 91 Nasal Cannula 3.0 03/13/18 20:15 37.3 71 22 110/62 90 Nasal Cannula 3.0 03/13/18 19:45 58 22 121/42 92 03/13/18 16:48 94 20 96 BiPAP/CPAP 40 03/13/18 16:12 98 96 40 03/13/18 15:32 96 Nasal Cannula 4.0 03/13/18 15:28 65 03/13/18 15:24 92 Nasal Cannula 4.0 03/13/18 15:24 36.9 93 16 142/53 92 Nasal Cannula 4.0 General Appearance: WELL-APPEARING, NO APPARENT DISTRESS Eyes: PERRLA, EOMI ENT: NORMAL THROAT EXAM, NORMAL DENTAL EXAM Neck: TRACHEA MIDLINE Respiratory: BREATH SOUNDS NORMAL Cardiovasular: NORMAL S1S2, NO M/G/R, NO MURMUR, other (Reproducible chest pain at the sternum. On the bike compression and by touching.) Abdomen: other (Reproducible pain at the epigastrium without rebound.) Upper Extremities: NO EDEMA Lower Extremities: edema (Trace edema) Neuro: ALERT, ORIENTED x 3, NORMAL MOTOR EXAM Psychiatric: flat affect Diagnostics Labs Results Past 24 Hours Test 03/13/18 15:03 03/13/18 16:47 03/13/18 17:05 03/13/18 18:07 Range/Units White Blood Count 5.22 4.8-10.8 K/uL Red Blood Count 3.68 4.2-5.4 M/uL Hemoglobin 11.6 12.0-16.0 g/dL Hematocrit 35.4 37-47 % Mean Corpuscular Volume 96.2 80-100 fL Mean Corpuscular Hemoglobin 31.5 25-34 pg Mean Corpuscular Hemoglobin Concent 32.8 32-36 g/dl Platelet Count 171 130-400 K/uL Mean Platelet Volume 8.9 7.4-10.4 fL Neutrophils (%) (Auto) 69.2 % Lymphocytes (%) (Auto) 21.3 % Monocytes (%) (Auto) 7.3 % Eosinophils (%) (Auto) 1.0 % Basophils (%) (Auto) 0.2 % Neutrophils # (Auto) 3.62 1.4-6.5 K/uL Lymphocytes # (Auto) 1.11 1.2-3.4 K/uL Monocytes # (Auto) 0.38 0.11-0.59 K/uL Eosinophils # (Auto) 0.05 0-0.5 K/uL Basophils # (Auto) 0.01 0-0.2 K/uL RDW Standard Deviation 46.4 36.4-46.3 fL RDW Coefficient of Variation 13.3 11.5-14.5 % Immature Granulocyte % (Auto) 1.0 % Immature Granulocyte # (Auto) 0.05 0.00-0.02 K/uL Prothrombin Time 9.7 9.0-12.0 SECONDS Prothromb Time International Ratio 0.9 0.9-1.1 Sodium Level 128 136-145 mmol/L Potassium Level 4.2 3.5-5.1 mmol/L Chloride Level 88 98-107 mmol/L Carbon Dioxide Level 36 21-32 mmol/L Anion Gap 4.0 3-11 mmol/L Blood Urea Nitrogen 8 7-18 mg/dl Creatinine 0.58 0.60-1.20 mg/dl Est Creatinine Clear Calc Drug Dose 147.9 ml/min Estimated GFR () 117.8 Estimated GFR (Non- 101.6 BUN/Creatinine Ratio 14.7 10-20 Random Glucose 138 70-99 mg/dl Calcium Level 8.9 8.5-10.1 mg/dl Total Bilirubin 0.3 0.2-1 mg/dl Aspartate Amino Transf (AST/SGOT) 30 15-37 U/L Alanine Aminotransferase (ALT/SGPT) 43 12-78 U/L Alkaline Phosphatase 82 45-117 U/L Total Creatine Kinase 125 26-192 U/L Creatine Kinase MB 2.0 0.5-3.6 ng/ml Creatine Kinase MB Ratio 1.6 0-3.0 Troponin I < 0.015 0-0.045 ng/ml Pro-B-Type Natriuretic Peptide 740 0-900 pg/ml Total Protein 6.7 6.4-8.2 gm/dl Albumin 2.7 3.4-5.0 gm/dl Globulin 4.0 2.5-4.0 gm/dl Albumin/Globulin Ratio 0.7 0.9-2 Arterial Blood pH 7.37 7.35-7.45 Arterial Blood Partial Pressure CO2 67 35-46 mmHg Arterial Blood Partial Pressure O2 76 80-95 mm/Hg Arterial Blood HCO3 38 19-24 mmol/L Arterial Blood Oxygen Saturation 94.6 90-95 % Arterial Blood Base Excess 10.2 -9-1.8 mEq/L Arterial Blood Gas Delivery 40% Alon Test POS POS Influenza Type A Antigen Neg for Influ A NEG Influenza Type B Antigen Neg for Influ B NEG Bedside Glucose 131 70-90 mg/dl Test 03/13/18 20:00 03/13/18 20:42 03/13/18 21:03 03/14/18 02:18 Range/Units Urine Color YELLOW Urine Appearance CLEAR CLEAR Urine pH 5.0 4.5-7.5 Urine Specific [place] 1.008 1.000-1.030 Urine Protein NEG NEG Urine Glucose (UA) NEG NEG Urine Ketones NEG NEG Urine Occult Blood NEG NEG Urine Nitrite NEG NEG Urine Bilirubin NEG NEG Urine Urobilinogen NEG NEG Urine Leukocyte Esterase NEG NEG Bedside Glucose 168 70-90 mg/dl Troponin I < 0.015 < 0.015 0-0.045 ng/ml White Blood Count 7.86 4.8-10.8 K/uL Red Blood Count 4.08 4.2-5.4 M/uL Hemoglobin 12.9 12.0-16.0 g/dL Hematocrit 38.7 37-47 % Mean Corpuscular Volume 94.9 80-100 fL Mean Corpuscular Hemoglobin 31.6 25-34 pg Mean Corpuscular Hemoglobin Concent 33.3 32-36 g/dl RDW Standard Deviation 45.9 36.4-46.3 fL RDW Coefficient of Variation 13.3 11.5-14.5 % Platelet Count 148 130-400 K/uL Mean Platelet Volume 8.5 7.4-10.4 fL Sodium Level 128 136-145 mmol/L Potassium Level 4.4 3.5-5.1 mmol/L Chloride Level 89 98-107 mmol/L Carbon Dioxide Level 36 21-32 mmol/L Anion Gap 3.0 3-11 mmol/L Blood Urea Nitrogen 10 7-18 mg/dl Creatinine 0.64 0.60-1.20 mg/dl Est Creatinine Clear Calc Drug Dose 126.1 ml/min Estimated GFR () 114.0 Estimated GFR (Non- 98.4 BUN/Creatinine Ratio 15.8 10-20 Random Glucose 214 70-99 mg/dl Calcium Level 9.2 8.5-10.1 mg/dl Magnesium Level 1.8 1.8-2.4 mg/dl Test 03/14/18 06:33 03/14/18 10:41 Range/Units Bedside Glucose 259 281 70-90 mg/dl Microbiology Results 03/13/18 Blood Culture, Received Pending 03/13/18 Blood Culture, Received Pending 03/13/18 MRSA DNA Surveillance Screen - Final, Complete Specimen Positive for MRSA by DNA Probe 03/14/18 Gram Stain, Received Pending 03/14/18 Sputum Culture, Received Pending Diagnostic Radiology CAT scan and chest x-ray both reviewed as above, showing bibasilar atelectasis. Patient does have hyperinflated lungs consistent also diagnosis of COPD. Impression Assessment and Plan 1. Bibasilar atelectasis, partially from splinting due to the pain, its does not represent any pneumonia. Patient did not have any fever, no leukocytosis, no neutrophil, no bandemia. The findings on the chest x-ray and the CAT scan representing mostly atelectasis, superimposed infection cannot be ruled out but less likely. 2. Morbid obesity, likely obesity hypoventilation syndrome. 3. COPD on home O2. 4. History of liver cirrhosis. 5. History of recent pneumonia requiring intubation. Plan: 1. Discontinue broad-spectrum antibiotics. 2. Start Levaquin p.o. 750 mg only for total of 5 days. 3. Start the patient on prednisone 40 mg p.o. daily for 5 days and no taper. 4. Stop Solu-Medrol. 5. Incentive spirometry and encourage the patient to cough. If she does not do so, it will convert to healthcare acquired pneumonia easily. 6. No need for prophylactic broad-spectrum antibiotic. 7. Physical therapy. 8. Disposition plan back to the prison. 9. Continue current treatment including bronchodilators. 10. Polysomnography as an outpatient. Thank you for your kind referral.
[2018-03-14] MEDS ORDERED: INSULIN GLARGINE SC STA (13:13)
[2018-03-14] MEDS ORDERED: INSULIN HUMAN REGULAR IV BOLUS 6 UNIT in SYRINGE 0 ML IV SCH (16:45)
[2018-03-14] MEDS: LEVOFLOXACIN 750 MG TAB PO SCH (17:42)
[2018-03-14] MEDS: ENOXAPARIN 40 MG/0.4 ML SYR SC SCH (20:42)
[2018-03-14] MEDS ORDERED: INSULIN HUMAN REGULAR IV BOLUS 10 UNIT in SYRINGE 0 ML IV SCH (21:00)
[2018-03-14] MEDS ORDERED: VANCOMYCIN IV 1,500 MG in SODIUM CHLORIDE 0.9% 250ML 250 ML IV SCH (21:00)
[2018-03-15] VITALS (14 sets, daily range): BP systolic 96–158; BP diastolic 51–78; PULSE 64–77; TEMP 36.8–37.4; O2SAT 90–94; Ht 157.5 cm; Wt 128.0 kg
[2018-03-15] MEDS: ALBUT/IPRATROP 3MG/0.5MG NEB 3 ML VIAL INH SCH ×4 (01:37→19:30)
[2018-03-15] MEDS: INSULIN ASPART 100 UNITS/ML 3 ML PEN SC SCH ×5 (04:09→21:16)
[2018-03-15] MEDS: LEVOTHYROXINE 200 MCG TAB PO SCH (05:03)
[2018-03-15] MEDS ORDERED: VANCOMYCIN TROUGH ONE (05:30)
[2018-03-15 06:05] LABS: CREATININE 0.5 mg/dl (0.60-1.20)
[2018-03-15] MEDS: CHOLECALCIFEROL 1000 INTER.UNIT TAB PO SCH (08:27)
[2018-03-15] MEDS: CLOPIDOGREL BISULFATE 75 MG TAB PO SCH (08:28)
[2018-03-15] MEDS: LACTOBACILLUS ACIDOPHILUS (FLORANEX) TAB PO SCH ×3 (08:28→21:12)
[2018-03-15] MEDS: PANTOprazole SOD 40 MG TAB PO SCH (08:28)
[2018-03-15] MEDS: ATORVASTATIN 40 MG TAB PO SCH (08:28)
[2018-03-15] MEDS: GABAPENTIN 100 MG CAP PO SCH ×3 (08:28→21:11)
[2018-03-15] MEDS: POTASSIUM CHLORIDE 20 MEQ TABCR PO SCH (08:28)
[2018-03-15] MEDS: CITALOPRAM 20 MG TAB PO SCH (08:28)
[2018-03-15] MEDS: ASPIRIN 81 MG ECTAB PO SCH (08:28)
[2018-03-15] MEDS: FUROSEMIDE 20 MG TAB PO SCH (08:29)
[2018-03-15] MEDS: INSULIN GLARGINE SC SCH (08:33)
[2018-03-15] MEDS ORDERED: POLYETHYLENE (MIRALAX) 17 GM PACK PO ONE (10:45)
[2018-03-15] MEDS ORDERED: NURSING VERBAL MED ORDER ONE ×2 (10:45→12:00)
[2018-03-15] MEDS ORDERED: ALBUT/IPRATROP 3MG/0.5MG NEB 3 ML VIAL INH ONE (12:00)
[2018-03-15] MEDS: LEVOFLOXACIN 750 MG TAB PO SCH (12:29)
--- NOTE | 2018-03-15 15:28 | Progress Note ---
Internal Med Progress Note Date of Service: Mar 15, 2018. Provider Documentation: SUBJECTIVE: The patient was seen and examined in telemetry unit. She was admitted with shortness of breath cough and chest pain. Noted to have new right basilar infiltration on x-ray. She feels better and besides minimal cough no other significant symptoms today. 03/15-better this AM but got SOB later Received Nebs and got better OBJECTIVE: Vital Signs-as noted below Exam: General-minimal distress at rest Generally weak and lethargic Eyes-normal ENT-normal Neck-supple Lungs-decreased breath sounds bilaterally with occasional wheezing and bibasilar rales Heart-S1-S2 regular, no murmur appreciated Abdomen-benign, nontender, bowel sounds present Extremities-trace edema bilaterally Neuro-alert awake oriented 3 Generally weak but no focal neuro deficit Lab data as noted below. ASSESSMENT & PLAN: HCAP-possible gram-negative bacteria. COPD EXACERBATION CHRONIC HYPOXIC, HYPERCAPNIC RESPIRATORY FAILURE-required to mechanical ventilation during recent admission to the hospital. -Patient presenting from [facility] with increasing shortness of breath, cough, chest pain; in the ED, chest x-ray suggests a right basilar pneumonia -Required BiPAP however was transitioned back to nasal cannula during my exam and is doing well -ABG shows an elevated CO2 with normal pH -Has been on intravenous vancomycin and Levaquin, received a dose of ceftriaxone in the ER as well -History does not suggest aspiration, however given the location of pneumonia we will have speech evaluate the patient -Blood and sputum cultures-pending -IV steroids, [id number] nebulizer treatments -We will discontinue vancomycin as MRSA screen is negative -Appreciate Pulmonary input and recommendation -Clinically better with occasional deterioration CHEST PAIN, HISTORY CAD -Chest pain reproducible with chest wall palpation on exam -Low suspicion for PE, if patient does not improve with above treatments could consider workup -Initial troponin negative, EKG without acute ST changes -Serial troponins are negative for any ACS and she does not have any more chest pain -Continue aspirin, statin, Plavix -no more CP Possible acute on chronic diastolic heart failure No obvious fluid overload and/or CHF Received 40 of IV Lasix in the ER and will continue smaller doses Clinically better DIABETES -Recent Hgb A1c 5.9 -Lantus and NovoLog per protocol HYPOTHYROIDISM -Continue levothyroxine DVT PROPHYLAXIS -SQ Lovenox CODE STATUS -Patient is a full code as per my discussion with her as well as POLST form that was sent with the patient. DISPOSITION PT and OT evaluation Likely back to [facility] in a day or 2. Vital Signs: Date Time Temp Pulse Resp B/P (MAP) Pulse Ox O2 Delivery O2 Flow Rate FiO2 03/15/18 14:21 72 18 90 Nasal Cannula 4.0 03/15/18 12:00 77 18 91 Nasal Cannula 4.0 03/15/18 12:00 Nasal Cannula 4.0 03/15/18 11:13 36.9 70 20 158/77 (104) 91 Nasal Cannula 5.0 03/15/18 10:58 37.1 66 20 90 Nasal Cannula 03/15/18 08:00 Nasal Cannula 4.0 03/15/18 07:21 37.1 66 20 110/51 (70) 90 Nasal Cannula 4.0 03/15/18 07:07 66 18 90 Nasal Cannula 4.0 03/15/18 04:00 Nasal Cannula 4.0 03/15/18 03:35 37.4 70 24 96/61 (73) 90 Nasal Cannula 4.0 03/15/18 01:38 64 18 90 Nasal Cannula 4.0 03/15/18 00:01 Nasal Cannula 4.0 03/14/18 23:41 36.8 70 23 108/62 (77) 90 Nasal Cannula 4.0 03/14/18 20:00 Nasal Cannula 4.0 03/14/18 19:35 65 20 89 Nasal Cannula 4.0 03/14/18 19:24 36.9 68 18 116/67 (83) 92 Nasal Cannula 4.0 03/14/18 18:20 143/66 (91) 03/14/18 16:00 90 Nasal Cannula 4.0 03/14/18 16:00 37.1 71 18 188/73 (111) 90 Lab Results: Results Past 24 Hours Test 03/14/18 16:25 03/14/18 19:41 03/14/18 23:52 03/15/18 04:00 Range/Units Bedside Glucose 334 327 218 151 70-90 mg/dl Test 03/15/18 05:17 03/15/18 06:54 Range/Units Creatinine 0.50 0.60-1.20 mg/dl Est Creatinine Clear Calc Drug Dose 160.1 ml/min Estimated GFR () 123.7 Estimated GFR (Non- 106.7 Vancomycin Level Trough 3.7 SEE COMMENT mcg/ml Bedside Glucose 121 70-90 mg/dl
[2018-03-15] MEDS: ENOXAPARIN 40 MG/0.4 ML SYR SC SCH (21:12)
[2018-03-16] VITALS (8 sets, daily range): BP systolic 105–117; BP diastolic 65–73; PULSE 57–61; TEMP 36.4–37.4; O2SAT 90–94
[2018-03-16] MEDS: ALBUT/IPRATROP 3MG/0.5MG NEB 3 ML VIAL INH SCH ×3 (01:57→14:32)
[2018-03-16] MEDS: LEVOTHYROXINE 200 MCG TAB PO SCH (05:34)
[2018-03-16 06:05] LABS: CREATININE 0.54 mg/dl (0.60-1.20)
[2018-03-16] MEDS: CHOLECALCIFEROL 1000 INTER.UNIT TAB PO SCH (08:01)
[2018-03-16] MEDS: CITALOPRAM 20 MG TAB PO SCH (08:01)
[2018-03-16] MEDS: ATORVASTATIN 40 MG TAB PO SCH (08:01)
[2018-03-16] MEDS: CLOPIDOGREL BISULFATE 75 MG TAB PO SCH (08:02)
[2018-03-16] MEDS: POTASSIUM CHLORIDE 20 MEQ TABCR PO SCH (08:03)
[2018-03-16] MEDS: LACTOBACILLUS ACIDOPHILUS (FLORANEX) TAB PO SCH ×2 (08:03→14:21)
[2018-03-16] MEDS: GABAPENTIN 100 MG CAP PO SCH ×2 (08:03→14:21)
[2018-03-16] MEDS: PANTOprazole SOD 40 MG TAB PO SCH (08:03)
[2018-03-16] MEDS: FUROSEMIDE 20 MG TAB PO SCH (08:04)
[2018-03-16] MEDS: ASPIRIN 81 MG ECTAB PO SCH (08:04)
[2018-03-16] MEDS: INSULIN ASPART 100 UNITS/ML 3 ML PEN SC SCH ×2 (08:14→11:57)
[2018-03-16] MEDS: INSULIN GLARGINE SC SCH (08:15)
[2018-03-16 08:20] LABS: HEMATOCRIT 37.5 % (37-47); HEMOGLOBIN 12.2 g/dL (12.0-16.0); MEAN CELL VOLUME 97.9 fL (80-100); MEAN CORPUSCULAR HEMOGLOBIN 31.9 pg (25-34); MEAN CORPUSCULAR HGB CONC 32.5 g/dl (32-36); MEAN PLATELET VOLUME 9.2 fL (7.4-10.4); PLATELET COUNT 193 K/uL (130-400); RED CELL DISTRIBUTION WIDTH CV 13.4 % (11.5-14.5); RED CELL DISTRIBUTION WIDTH SD 47.8 fL (36.4-46.3); WHITE BLOOD COUNT 4.76 K/uL (4.8-10.8)
[2018-03-16 08:36] LABS: CALCIUM 9.1 mg/dl (8.5-10.1); CREATININE 0.54 mg/dl (0.60-1.20); POTASSIUM 4.4 mmol/L (3.5-5.1)
--- NOTE | 2018-03-16 11:05 | Progress Note ---
Internal Med Progress Note Date of Service: Mar 16, 2018. Provider Documentation: SUBJECTIVE: The patient was seen and examined in telemetry unit. She was admitted with shortness of breath cough and chest pain. Noted to have new right basilar infiltration on x-ray. She feels better and besides minimal cough no other significant symptoms today. 03/15-better this AM but got SOB later Received Nebs and got better Denies any complaints today and ready to be discharged OBJECTIVE: Vital Signs-as noted below Exam: General-minimal distress at rest Eyes-normal ENT-normal Neck-supple Lungs-decreased breath sounds bilaterally with occasional wheezing and bibasilar rales,not any worse Heart-S1-S2 regular, no murmur appreciated Abdomen-benign, nontender, bowel sounds present Extremities-trace edema bilaterally Neuro-alert awake oriented 3 Generally weak but no focal neuro deficit Lab data as noted below. ASSESSMENT & PLAN: HCAP-possible gram-negative bacteria. COPD EXACERBATION CHRONIC HYPOXIC, HYPERCAPNIC RESPIRATORY FAILURE-required to mechanical ventilation during recent admission to the hospital. -Patient presenting from [facility] with increasing shortness of breath, cough, chest pain; in the ED, chest x-ray suggests a right basilar pneumonia -Required BiPAP however was transitioned back to nasal cannula during my exam and is doing well -ABG shows an elevated CO2 with normal pH -Has been on intravenous vancomycin and Levaquin, received a dose of ceftriaxone in the ER as well -History does not suggest aspiration, however given the location of pneumonia we will have speech evaluate the patient -Blood and sputum cultures-pending -IV steroids, [id number] nebulizer treatments -We will discontinue vancomycin as MRSA screen is negative -Appreciate Pulmonary input and recommendation -Clinically better today -will finish Antibiotic and Steroid as advised by the mental health consultant CHEST PAIN, HISTORY CAD -Chest pain reproducible with chest wall palpation on exam -Low suspicion for PE, if patient does not improve with above treatments could consider workup -Initial troponin negative, EKG without acute ST changes -Serial troponins are negative for any ACS and she does not have any more chest pain -Continue aspirin, statin, Plavix -no more CP Possible acute on chronic diastolic heart failure No obvious fluid overload and/or CHF Received 40 of IV Lasix in the ER and will continue smaller doses Clinically better DIABETES -Recent Hgb A1c 5.9 -Lantus and NovoLog per protocol HYPOTHYROIDISM -Continue levothyroxine DVT PROPHYLAXIS -SQ Lovenox CODE STATUS -Patient is a full code as per my discussion with her as well as POLST form that was sent with the patient. DISPOSITION PT and OT evaluation Likely back to [facility] in a day or 2. Will discharge to [facility] today Vital Signs: Date Time Temp Pulse Resp B/P (MAP) Pulse Ox O2 Delivery O2 Flow Rate FiO2 03/16/18 08:00 93 Nasal Cannula 4.0 03/16/18 07:14 36.4 61 20 105/65 (78) 90 Nasal Cannula 4.0 03/16/18 07:05 57 18 93 Nasal Cannula 4.0 03/16/18 04:00 92 Nasal Cannula 4.0 03/16/18 04:00 36.7 61 20 117/70 (86) 92 Nasal Cannula 4.0 03/16/18 01:57 59 18 91 Nasal Cannula 4.0 03/15/18 23:59 94 Nasal Cannula 4.0 03/15/18 23:40 36.8 64 21 129/71 (90) 94 Nasal Cannula 4.0 03/15/18 20:15 91 Nasal Cannula 4.0 03/15/18 19:39 37.1 70 17 137/78 (97) 91 Nasal Cannula 4.0 03/15/18 19:30 70 18 90 Nasal Cannula 4.0 03/15/18 16:00 Nasal Cannula 4.0 03/15/18 15:35 37.2 75 18 123/61 (81) 90 Nasal Cannula 5.0 03/15/18 14:21 72 18 90 Nasal Cannula 4.0 03/15/18 12:00 77 18 91 Nasal Cannula 4.0 03/15/18 12:00 Nasal Cannula 4.0 03/15/18 11:13 36.9 70 20 158/77 (104) 91 Nasal Cannula 5.0 Lab Results: Results Past 24 Hours Test 03/15/18 11:15 03/15/18 16:12 03/15/18 20:27 03/16/18 05:24 Range/Units Bedside Glucose 159 204 206 70-90 mg/dl White Blood Count 4.76 4.8-10.8 K/uL Red Blood Count 3.83 4.2-5.4 M/uL Hemoglobin 12.2 12.0-16.0 g/dL Hematocrit 37.5 37-47 % Mean Corpuscular Volume 97.9 80-100 fL Mean Corpuscular Hemoglobin 31.9 25-34 pg Mean Corpuscular Hemoglobin Concent 32.5 32-36 g/dl RDW Standard Deviation 47.8 36.4-46.3 fL RDW Coefficient of Variation 13.4 11.5-14.5 % Platelet Count 193 130-400 K/uL Mean Platelet Volume 9.2 7.4-10.4 fL Sodium Level 132 136-145 mmol/L Potassium Level 4.4 3.5-5.1 mmol/L Chloride Level 90 98-107 mmol/L Carbon Dioxide Level 39 21-32 mmol/L Anion Gap 3.0 3-11 mmol/L Blood Urea Nitrogen 14 7-18 mg/dl Creatinine 0.54 0.60-1.20 mg/dl Est Creatinine Clear Calc Drug Dose 145.7 ml/min Estimated GFR () 120.6 Estimated GFR (Non- 104.0 BUN/Creatinine Ratio 25.3 10-20 Random Glucose 117 70-99 mg/dl Calcium Level 9.1 8.5-10.1 mg/dl Magnesium Level 2.0 1.8-2.4 mg/dl Test 03/16/18 06:49 Range/Units Bedside Glucose 112 70-90 mg/dl
[2018-03-16] MEDS: LEVOFLOXACIN 750 MG TAB PO SCH (11:57)
--- NOTE | 2018-03-16 12:48 | Pharmacy Progress Note ---
Pharmacy Glycemic Short Note 2 Date of Service Mar 16, 2018. OUTPATIENT ANTIDIABETIC REGIMEN: * Lantus 55 units QAM + Humalog 20 units TID ASSESSMENT: * 57 yo diabetic female admitted for pneumonia, on oral lvq, plan to be discharged today * Continues of prednisone 40 mg daily * Patient with hyperglycemia yesterday in the evening, will tighten correction/ carb ratio today * Fasting level within goal PLAN FOR INPATIENT GLYCEMIC CONTROL: * Basal insulin * Lantus 70 units this AM * Bolus insulin * NovoLog per scale ACHS or Q6hrs while NPO * Goal Range: Low 110 mg/dL - High 140 mg/dL * Correction Factor: 10 mg/dL/unit * Nutritional / Prandial insulin per carb ratio of 1 unit per 3 grams CHO consumed PLAN FOR DISCHARGE: * Current A1c 5.9% demonstrates good control. Okay to continue home insulin regimen on discharge as long as patient is not experiencing hypoglycemic episodes at home.
[2018-03-16] MEDS ORDERED: PRD20 PO (12:59)
[2018-03-16] MEDS ORDERED: LVQ750 PO (12:59)
--- NOTE | 2018-03-16 13:03 | Discharge Instructions ---
Discharge Instructions Date of Service Mar 16, 2018. Admission Reason for Admission: Pneumonia Discharge Discharge Diagnosis / Problem: HCAP,COPD exacerbation,Respiratory Failure Discharge Goals Goal(s): Prevent Disease Progression Activity Recommendations Activity Level: Assistance Required Therapies: Physical Therapy, Occupational Therapy . Additional Information Patient informed of condition: Yes Advance Directives: No DNR: No Level of Care: Skilled Communicable Disease: No Prognosis: Stable Oxygen at (LPM): as advised [place] Catheter: No Instructions / Follow-Up Instructions / Follow-Up Please make an appointment with your PCP in 1 week. Current Hospital Diet Patient's current hospital diet: AHA Diet (Heart Healthy), Low Sodium Diet (2gm Na), Diabetes Type 2 Diet Discharge Diet Recommended Diet: AHA Diet (Heart Healthy), Low Sodium Diet (2gm Na), Diabetes Type 2 Diet Fluid Restriction: 2000 ml (8 cups) Pending Studies Studies pending at discharge: no Laboratory Results Hemoglobin A1c Test 02/27/18 04:30 Range/Units Estimated Average Glucose 123 mg/dl Hemoglobin A1c 5.9 H 4.5-5.6 % Medical Emergencies . Who to Call and When: Medical Emergencies: If at any time you feel your situation is an emergency, please call 911 immediately. . Non-Emergent Contact Non-Emergency issues call your: Primary Care Provider . Past History Medical & Surgical History: (1) Diastolic CHF (2) Chronic obstructive lung disease (3) Benign hypertension (4) DM type 2 (diabetes mellitus, type 2) (5) Morbid obesity with BMI of 40.0-44.9, adult (6) Hypothyroidism (7) History of hysterectomy (8) S/P tonsillectomy and adenoidectomy (9) S/P cholecystectomy (10) S/P coronary artery stent placement . "Provider Documentation" section prepared by Sunni Bryson. . Core Measure Problem Core Measures: None
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
== END 2018-03-16 15:30 | DRG 177 ==
LOC: EDBD 15:10 → C.EDC 15:12 → C.2T 17:11 → UNDOADMIN 17:11 → ENRESERV 18:38
PROVIDERS: ADMIT Hospitalist; ATTEND Internal Medicine
DX: J15.6 Pneumonia due to other Gram-negative bacteria (principal); I50.33 Acute on chronic diastolic (congestive) heart failure; J44.0 Chronic obstructive pulmonary disease with (acute) lower respiratory infection; J44.1 Chronic obstructive pulmonary disease with (acute) exacerbation; J96.11 Chronic respiratory failure with hypoxia; J96.12 Chronic respiratory failure with hypercapnia; E66.2 Morbid (severe) obesity with alveolar hypoventilation; Z68.43 Body mass index [BMI] 50.0-59.9, adult; R07.9 Chest pain, unspecified; I11.0 Hypertensive heart disease with heart failure; I25.10 Atherosclerotic heart disease of native coronary artery without angina pectoris; I25.2 Old myocardial infarction; J45.909 Unspecified asthma, uncomplicated; E03.9 Hypothyroidism, unspecified; E11.9 Type 2 diabetes mellitus without complications; E78.5 Hyperlipidemia, unspecified; I73.9 Peripheral vascular disease, unspecified; Z51.81 Encounter for therapeutic drug level monitoring; Z79.899 Other long term (current) drug therapy; Z97.4 Presence of external hearing-aid; Z79.82 Long term (current) use of aspirin; Z99.81 Dependence on supplemental oxygen; Z95.5 Presence of coronary angioplasty implant and graft; Z88.0 Allergy status to penicillin; Z87.891 Personal history of nicotine dependence; Z83.3 Family history of diabetes mellitus; Z82.5 Family history of asthma and other chronic lower respiratory diseases

== ENCOUNTER → 2018-06-22 | Outpatient (CLI) | payer OTHER ==
[~2018-06-22] MED LIST changes: +ACET-1311 PO; +BISA10SU3 PR; +CHOL20007 PO; +CLOT1CRE80 TOP; -ERGO500011 PO; +FLUC150T PO; +FLUID RESTRICTION PO; +FLUT1AER14 PO; +HMLIS SQ; -INSU100I2 SC; +INSU100I2 SQ; +IPRA-64 INH; -IPRA1AER2 INH; -MCTP EXT; +MOMLX PO; -ONDA4TAB46 PO; +[UNRECOGNIZED DRUG - CODE]; +[UNRECOGNIZED DRUG - OTHER] TOP
[2018-06-22 09:28] LABS: HEMOGLOBIN A1C 9.4 % (4.5-5.6)
== END ==
LOC: C.LABCC 08:09
PROVIDERS: ATTEND Internal Medicine
DX: E11.9 Type 2 diabetes mellitus without complications (principal)

== ENCOUNTER → 2018-06-26 | Outpatient (CLI) | payer OTHER ==
--- NOTE | 2018-06-27 06:22 | SPLIT NIGHT TECHNICIAN REPORT ---
[facility] Split Night Polysomnogram - X Ray Service Engineer Report Study date: 06/26/2018 Referring Physician: CLIFF WILLOUGHBY M.D. Name: JENNIFER LEVIN X Ray Service Engineer: Yue De Souza, PSGT. Date of : 1960 Height: 57 years, Height 5' 2" Sex: Female Weight: 226 lbs Age: 57 Neck Circum: BMI: Medications: 41.33 SEE LIST OF 22 MEDICATIONS LISTED IN CHART.... Patient History 57-YEAR-OLD FEMALE FROM [facility] PRESENTS TO THE SLEEP LAB FOR A SPLIT NIGHT STUDY >5. PATIENT HAS A COMPLEX MEDICAL HISTORY CHRONIC OBS PULMONARY DIEASE, DIABETES, DYSLIPIDEMIA, HYPERTENSION, HYPOTHYROIDISM, HYPOXIA, MORBID OBESITY, OBESITY HYPOVENTILATION SYNDROME, HISTORY OF CO2 RETENTION.ESS= 13, NECK = 18.5 INCHES. Parameters Monitored NPSG: E1-M2, E2-M1, Fp1-M2, Fp2-M1, F3-M2, F4-M2, F4-M1, C3-M2, C4-M2, C4-M1, O1-M2, O2-M2, O2-M1, T3-M2, T4-M1, P3-M2, P4-M1, CHIN1, CHIN2, HR, EKG, Legs, PFLOW, SNOR, FLOW, CFLOW, Tidal Volume, THOR, ABDO, SpO2, PLTH, CPRESS, ETCO2 Wave, ETCO2, pH SLEEP SUMMARY DATA DIAGNOSTIC TREATMENT Lights Out: 9:12:50 PM 12:44:50 AM Lights On: 12:31:20 AM 5:30:20 AM Total Recording Time (TRT): 196.0 min. 286.0 min. Total Sleep Time (TST): 136.5 min. 223.5 min. NREM Time: 136.5 min. 127.5 min. REM Time: 0.0 min. 96.0 min. Sleep Period Time (SPT): 145.5 min. 258.0 min. Sleep Efficiency (SE): 70 % 78 % Sleep Latency: 50.5 min. 27.5 min. Arousal Index: 20.7 9.1 PAP Treatment Levels: 6, 8, 9, 10, 11, 12, 13, 8/4, 9/5, 10/5, 11/5 * Optimal Pressure(s) SLEEP STAGING DATA DIAGNOSTIC TREATMENT Duration (min) TST % Duration (min) TST % Stage Wake: 59.5 min. -- 61.5 min. -- WASO: 11.5 min. -- 34.5 min. -- NREM: 136.5 min. 100 % 127.5 min. 57 % Stage N1: 2.0 min. 1 % 3.0 min. 1 % Stage N2: 134.5 min. 99 % 124.5 min. 56 % Stage N3: 0.0 min. 0 % 0.0 min. 0 % REM: 0.0 min. 0 % 96.0 min. 43 % POSITIONAL DATA Event Count Index Event Count Index Supine: 49 22 32 9.2 Supine NREM: 49 21.5 12 6.3 Supine REM: N/A N/A 20 13 Non-Supine: N/A N/A 6 23.0 Non-Supine NREM: N/A N/A 5 21.4 Non-Supine REM: N/A N/A 1 36.1 AROUSAL SUMMARY DATA: Event Count Index Event Count Index Apnea Arousals: 0 0.0 0 0.5 Hypopnea Arousals: 11 4.8 1 0.3 Snore Arousals: 12 5.3 1 0.3 PLM Arousals: 12 5.3 2 0.5 Non-Specific Arousals: 12 5.3 27 7.2 Total Arousals: 47 20.7 34 9.1 MYOCLONUS (PLM) Event Count Index Event Count Index PLM: 352 154.7 126 33.8 PLM AROUSAL: 12 5.3 2 0.5 PLM W/O AROUSAL 352 154.7 124 33.3 PLM W/RESP EVENT 15 0.0 3 0.0 MYOCLONUS (PLM) Event Count Index Event Count Index LM: 0 15.4 29 7.8 LM AROUSAL: 0 0.0 3 0.8 LM W/O AROUSAL LM W/RESP EVENT LM NON SPECIFIC 348 153.0 146 39.2 HEART RATE DATA DIAGNOSTIC TREATMENT Sleep (bpm): 56 55 REM (bpm): N/A 89 NREM (bpm): 92 90 Tachycardia Count: 0 0 Tachycardia Duration: 0.00 0 Bradycardia Count: 0 0 Bradycardia Duration: 0.00 0 DIAGNOSTIC PORTION TREATMENT PORTION RESPIRATORY DATA Event Count Index Event Count Index AHI: -- 21.5 -- 10.2 RDI: -- 21.5 -- 10 Obstructive Apnea: 0 0.0 1 0.3 Central Apnea: 0 0.0 1 0.3 Mixed Apnea: 0 0.0 0 0.0 Hypopnea: 49 21.5 36 9.7 RERA: 0 0.0 0 0.0 Total Apneas: 0 0.0 2 0.5 RESPIRATORY DATA REM NREM SLEEP REM NREM SLEEP Supine Position: Obstructive Apneas: N/A 0 0 1 0 1 Central Apneas: N/A 0 0 0 1 1 Mixed Apneas: N/A 0 0 0 0 0 Hypopneas: N/A 49 49 19 11 30 RERA N/A 0 0 0 0 0 Total Supine Events: N/A 49 49 20 12 32 Supine AHI: N/A 21.5 22 13 6.3 9.2 Supine RDI: N/A 21.5 21.5 12.7 6.3 9.2 REM NREM SLEEP REM NREM SLEEP Non-Supine Position: Obstructive Apneas: N/A N/A N/A 0 0 0 Central Apneas: N/A N/A N/A 0 0 0 Mixed Apneas: N/A N/A N/A 0 0 0 Hypopneas: N/A N/A N/A 1 5 6 RERA N/A N/A N/A 0 0 0 Total Supine Events: N/A N/A N/A 1 5 6 Supine AHI: N/A N/A N/A 36.1 21.4 23.0 Supine RDI: N/A N/A N/A 36.1 21.4 23.0 OXYGEN DESTAURATION DATA: Event Count Index Event Count Index REM Desaturations: N/A N/A 47 29.4 NREM Desaturations: 53 23.3 40 18.8 SNORE DATA DIAGNOSTIC TREATMENT Snore Time: 35.3 1:12:20 AM Snore TST%: 17 2 Snore Arousal Count: 12 1 Snore Arousal Index: 5.3 0.3 Desaturation Event Summary: Minimum %SpO2 Event Count Mean/Min/Max Duration(sec.) Desaturation Index % Time In Bed > 90 109 31.0 / 7.8 / 60.0 22.0 62.1 86 - 90 53 24.4 / 7.8 / 58.0 18.9 35.1 81 - 85 4 30.6 / 14.0 / 47.3 19.9 2.5 76 - 80 0 N/A 0.0 0.3 71 - 75 0 N/A 0.0 0.0 66 - 70 0 N/A 0.0 0.0 61 - 65 0 N/A 0.0 0.0 56 - 60 0 N/A 0.0 0.0 51 - 55 0 N/A 0.0 0.0 < 50 0 N/A 0.0 0.0 OXYGEN SATURATION DATA DIAGNOSTIC TREATMENT SpO2 Mean Sleep: 92 % 90 % SpO2 Mean REM: N/A % 89 % SpO2 Mean NREM: 92 % 90 % SpO2 Minimum Sleep: 85 % 75 % SpO2 Minimum REM: N/A % 75 % SpO2 Minimum NREM: 85 % 81 % Time Below 90% (TST): 4.7 85.5 Time Below 88% (TST): 0.2 35.8 Total REM NREM Awake <50% 0.0 min. 0.0 min. 0.0 min. 0.0 min. 51 - 60% 0.0 min. 0.0 min. 0.0 min. 0.0 min. 61 - 70% 0.0 min. 0.0 min. 0.0 min. 0.0 min. 71 - 80% 1.4 min. 1.4 min. 0.0 min. 0.0 min. 81 - 90% 180.3 min. 73.6 min. 78.1 min. 28.6 min. 91 - 100% 297.6 min. 21.0 min. 184.8 min. 91.8 min. Average 91 89 91 92 Minimum SpO2 75 75 81 86 Desaturation Event Index 17.5 29.4 21.1 0.5 # Desat. Events below 89% 79 44 35 N/A Time(%) with Saturation below 89% 13.4 8.0 4.0 1.4 Time(min.) with Saturation below 89% 64.3 38.2 19.2 6.9 Recording X Ray Service Engineer Comments: Split -Night: slept in the right, and supine positions. No cardiac arrhythmia or PLM's noted. No bruxism noted. Snoring was noted and scored as a 3 on a scale of 1 through 5. (0=no snoring, 5=snoring loud enough to be heard through a closed door or down the [address] way) At 12:31 am, has met specific Split-Night criteria during the diagnostic portion of this study. CPAP was initiated at +4 CMH2O 2 lpm 02 and up-titrated to a level of +13 CMH2O 2 lpm oxygen, she was switched to Bi-Level due to high pressure. PAP initiated at an IPAP of +8 CMH2O and an EPAP of +4 CMH2O up-titrated to an optimal level of: IPAP +5 CMH2O, EPAP +9 CMH20, which nearly eliminated all respiratory events and snoring. A F & P Medium Simplus, was used during titration received barby care several times throughout the test for her incontinence The final report will be interpreted and signed by a sleep physician. The completed physician report will then be placed in the patient medical record Patient came in on 4 liters of oxygen. This test was started with 2 liters of oxygen and ended on 2 liters of oxygen.Paitients order stated to start on 10 cm of c-pap and work to bi-pap as needed, the patient was very anxious and the c-pap was started at 6 cm h20 for comfort. Final bi-pap pressure was I-pap 11 cm h20 and E-pap 5cm h20 with 2 liters of oxygen. Patient did wake several times grabbing at the mask, stating she had some anxiety with the mask and the air. Therapy Event: Therapy (cm H20) 0 6 8 9 10 11 Total Time at Pressure (min.) 196.0 39.9 5.1 4.0 8.4 29.2 TST at Pressure (min.) 136.5 12.4 5.1 4.0 8.4 29.2 # Periods 1 1 1 1 1 1 Sleep Onset (min.) 50.5 27.5 0.0 0.0 0.0 0.0 REM Onset (min.) N/A N/A 1.6 0.0 0.0 0.0 Sleep Efficiency % 69 31 100 100 100 100 Wakefulness (%) 30.4 68.9 0.0 0.0 0.0 0.0 Wakefulness (min.) 59.5 27.5 0.0 0.0 0.0 0.0 NREM 1 (%) 1.0 1.3 0.0 0.0 0.0 0.0 NREM 1 (min.) 2.0 0.5 0.0 0.0 0.0 0.0 NREM 2 (%) 68.6 29.8 31.0 0.0 0.0 0.0 NREM 2 (min.) 134.5 11.9 1.6 0.0 0.0 0.0 NREM 3 (%) 0.0 0.0 0.0 0.0 0.0 0.0 NREM 3 (min.) 0.0 0.0 0.0 0.0 0.0 0.0 REM (%) 0.0 0.0 69.0 100.0 100.0 100.0 REM (min.) 0.0 0.0 3.5 4.0 8.4 29.2 # Arousals 47 0 0 0 2 13 Arousal Index 20.7 0.0 0.0 0.0 14.3 26.7 # Snore 1,762 23 10 3 1 5 Snore Index 774.5 111.2 117.5 44.6 7.2 10.3 AHI 21.5 19.3 47.0 44.6 35.9 10.3 AHI Supine 21.5 N/A 64.6 44.6 35.9 10.3 AHI Non-Supine N/A 19.3 36.9 N/A N/A N/A NREM AHI 21.5 19.3 37.8 N/A N/A N/A REM AHI N/A N/A 51.1 44.6 35.9 10.3 RDI 21.5 19.3 47.0 44.6 35.9 10.3 # Obstructive 0 0 0 0 0 1 # Central Ap 0 0 0 0 0 0 # Mixed 0 0 0 0 0 0 # Hypopneas 49 4 4 3 5 4 RERAS 0 0 0 0 0 0 Total Respiratory Events 49 4 4 3 5 5 Time Below SpO2 89.00% (min.) 1.5 10.6 4.5 4.0 7.3 14.9 Mean NREM SpO2 (%) 92 87 87 N/A N/A N/A Mean REM SpO2 (%) N/A N/A 85 85 86 88 Mean Sleep SpO2 (%) 92 87 85 85 86 88 Min NREM SpO2 (%) 85 83 85 N/A N/A N/A Min REM SpO2 (%) N/A N/A 78 81 78 75 Position Supine (min.) 136.5 0.0 1.9 4.0 8.4 29.2 Position Non-supine (min.) 0.0 12.4 3.2 0.0 0.0 0.0 LM Index Sleep 170.1 33.8 23.5 14.9 0.0 10.3 LM Index NREM 170.1 33.8 0.0 N/A N/A N/A LM Index REM N/A N/A 34.1 14.9 0.0 10.3 Mean Heart Rate (bpm) 56 55 54 54 54 54 Min Heart Rate (bpm) 54 54 54 53 53 53 Therapy (cm H20) 12 13 8/4 95 105 115 Total Time at Pressure (min.) 6.4 78.7 14.4 76.8 4.3 17.8 TST at Pressure (min.) 6.4 74.7 14.4 46.8 4.3 17.8 # Periods 1 1 1 1 1 1 Sleep Onset (min.) 0.0 0.0 0.0 0.0 0.0 0.0 REM Onset (min.) 0.0 0.0 N/A N/A N/A N/A Sleep Efficiency % 100 94 100 60 100 100 Wakefulness (%) 0.0 5.1 0.0 39.1 0.0 0.0 Wakefulness (min.) 0.0 4.0 0.0 30.0 0.0 0.0 NREM 1 (%) 0.0 0.0 0.0 3.3 0.0 0.0 NREM 1 (min.) 0.0 0.0 0.0 2.5 0.0 0.0 NREM 2 (%) 0.0 38.4 100.0 57.7 100.0 100.0 NREM 2 (min.) 0.0 30.3 14.4 44.3 4.3 17.8 NREM 3 (%) 0.0 0.0 0.0 0.0 0.0 0.0 NREM 3 (min.) 0.0 0.0 0.0 0.0 0.0 0.0 REM (%) 100.0 56.5 0.0 0.0 0.0 0.0 REM (min.) 6.4 44.5 0.0 0.0 0.0 0.0 # Arousals 1 8 2 6 1 1 Arousal Index 9.3 6.4 8.3 7.7 14.1 3.4 # Snore 0 4 25 53 27 96 Snore Index 0.0 3.2 104.2 68.0 380.9 323.8 AHI 9.3 4.0 4.2 7.7 42.3 3.4 AHI Supine 9.3 4.0 4.2 7.7 42.3 3.4 AHI Non-Supine N/A N/A N/A N/A N/A N/A NREM AHI N/A 2.0 4.2 7.7 42.3 3.4 REM AHI 9.3 5.4 N/A N/A N/A N/A RDI 9.3 4.0 4.2 7.7 42.3 3.4 # Obstructive 0 0 0 0 0 0 # Central Ap 0 1 0 0 0 0 # Mixed 0 0 0 0 0 0 # Hypopneas 1 4 1 6 3 1 RERAS 0 0 0 0 0 0 Total Respiratory Events 1 5 1 6 3 1 Time Below SpO2 89.00% (min.) 1.9 7.2 1.2 1.8 0.9 1.7 Mean NREM SpO2 (%) N/A 91 90 91 91 90 Mean REM SpO2 (%) 89 90 N/A N/A N/A N/A Mean Sleep SpO2 (%) 89 90 90 91 91 90 Min NREM SpO2 (%) N/A 89 83 83 82 81 Min REM SpO2 (%) 86 85 N/A N/A N/A N/A Position Supine (min.) 6.4 74.7 14.4 46.8 4.3 17.8 Position Non-supine (min.) 0.0 0.0 0.0 0.0 0.0 0.0 LM Index Sleep 0.0 59.4 70.8 25.6 98.7 74.2 LM Index NREM N/A 128.9 70.8 25.6 98.7 74.2 LM Index REM 0.0 12.1 N/A N/A N/A N/A Mean Heart Rate (bpm) 54 53 56 56 56 56 Min Heart Rate (bpm) 53 52 54 55 56 55
== END | disposition home or self-care (01) ==
LOC: C.NEUR 20:00
PROVIDERS: ATTEND Internal Medicine Pulmonary Disease
DX: J44.9 Chronic obstructive pulmonary disease, unspecified (principal)

== ENCOUNTER → 2018-07-11 | Outpatient (CLI) | payer OTHER ==
[~2018-07-11] VITALS: Ht 160 cm; Wt 103.9 kg
[2018-07-11 13:41] VITALS: BP 90/60; PULSE 60; Ht 160 cm; Wt 103.9 kg
== END | disposition home or self-care (01) ==
LOC: C.NEUR 12:40
PROVIDERS: ATTEND Physician Assistant Medical
DX: G47.33 Obstructive sleep apnea (adult) (pediatric) (principal); G47.34 Idiopathic sleep related nonobstructive alveolar hypoventilation; E66.2 Morbid (severe) obesity with alveolar hypoventilation; E66.01 Morbid (severe) obesity due to excess calories; J44.9 Chronic obstructive pulmonary disease, unspecified

== ENCOUNTER 2019-04-02 13:22 | Inpatient (IN) ==
[2019-04-02] MEDS ORDERED: ALBUT/IPRATROP 3MG/0.5MG NEB 3 ML VIAL NEB STA ×2 (14:01→15:36)
[2019-04-02 14:11] LABS: Basophils # (auto) 0.01 K/uL (0-0.2); Basophils % (auto) 0.1 %; Eosinophils # (auto) 0.54 K/uL (0-0.5); Eosinophils % (auto) 6.5 %; Hematocrit (blood only) 36.5 % (37-47); Hemoglobin 11.6 g/dL (12.0-16.0); Immature Granulocytes # (auto) 0.08 K/uL (0.00-0.02); Lymphocytes # (auto) 0.73 K/uL (1.2-3.4); Lymphocytes % (auto) 8.8 %; Mean Corpuscular Hgb Conc 31.8 g/dL (32-36); Mean Corpuscular Volume 98.6 fL (80-100); Mean Platelet Volume 8.6 fL (7.4-10.4); Monocytes # (auto) 0.29 K/uL (0.11-0.59); Monocytes % (auto) 3.5 %; Neutrophils # (auto) 6.65 K/uL (1.4-6.5); Neutrophils % (auto) 80.1 %; Nucleated RBC # (auto) 0.02 K/uL (0-0); Nucleated RBC % (auto) 0.2 %; Platelet Count 213 K/uL (130-400); RDW Coefficient of Variation 13.4 % (11.5-14.5); RDW Standard Deviation 48.2 fL (36.4-46.3)
--- NOTE | 2019-04-02 14:15 | Emergency Department Note ---
History of Present Illness General Chief complaint: Shortness of Breath/Dyspnea Stated complaint: sob Time Seen by Provider: 04/02/19 13:49 History of Present Illness Maximum Pain Intensity: 0 This patient is a 58-year-old female presents to the emergency department by ambulance from [facility] for evaluation of shortness of breath that started acutely this morning. The patient has a history of COPD and CHF. She wears 2 L of oxygen per nasal cannula at all times. The patient also reports a productive cough. She also feels feverish with body aches. She did not have any reported fever prior to arrival. She denies any chest pain. The patient had a DuoNeb prior to arrival. She said this helped with her symptoms. She also received Solu-Medrol 125 mg IV and typical dose of Lasix 40 mg p.o. this morning. Home Medications Home Medications Medication Instructions Recorded Confirmed Type Lactobacillus acidoph-L.bulgar 1 tab PO TID 11/05/18 04/02/19 History [Lactinex] acetaminophen [Tylenol] 650 mg PO Q6 PRN MDD 3G 11/05/18 04/02/19 History albuterol sulfate [ProAir HFA] 2 puff INHALATION Q4H PRN 11/05/18 04/02/19 History aspirin [Aspir-81] 81 mg PO DAILY 11/05/18 04/02/19 History atorvastatin 40 mg PO DAILY 11/05/18 04/02/19 History bisacodyl 10 mg TN DAILY PRN 11/05/18 04/02/19 History cholecalciferol (vitamin D3) 2,000 unit PO DAILY 11/05/18 04/02/19 History clopidogrel 75 mg PO DAILY 11/05/18 04/02/19 History hbchzvotebj-zjmkweseo-onczhjxc 1 inh INHALATION DAILY 11/05/18 04/02/19 History [Trelegy Ellipta] furosemide 20 mg PO DAILY 11/05/18 04/02/19 History gabapentin 100 mg PO TID 11/05/18 04/02/19 History insulin glargine 45 unit SUBCUT Q12 11/05/18 04/02/19 History insulin lispro 0 units SUBCUT UD 11/05/18 04/02/19 History insulin lispro [Humalog U-100 35 unit SUBCUT DAILY 11/05/18 04/02/19 History Insulin] ipratropium-albuterol 3 ml INHALATION Q6 PRN 11/05/18 04/02/19 History levothyroxine 200 mcg PO DAILY 11/05/18 04/02/19 History niacinamide 500 mg PO TID 11/05/18 04/02/19 History pantoprazole 20 mg PO DAILY 11/05/18 04/02/19 History potassium chloride [Klor-Con M20] 20 meq PO DAILY 11/05/18 04/02/19 History ascorbic acid (vitamin C) 500 mg PO BID 01/15/19 04/02/19 History clobetasol 1 applic TOPICAL AMPM 01/15/19 04/02/19 History insulin lispro [Humalog U-100 20 unit SUBCUT AC 01/15/19 04/02/19 History Insulin] magnesium hydroxide [Milk of 30 ml PO DIRECTED PRN 01/15/19 04/02/19 History Magnesia] multivitamin 1 tab PO DAILY 01/15/19 04/02/19 History nystatin 1 applic TOPICAL TID 01/15/19 04/02/19 History prednisone 30 mg PO DAILY 01/15/19 04/02/19 History sodium phosphates [Fleet Enema] 118 ml TN DAILY PRN 01/15/19 04/02/19 History Allergies Allergy/AdvReac Type Severity Reaction Status Date / Time Penicillins Allergy Intermediate RASH Verified 04/02/19 15:09 Past Med/Surg History Medical History Coronary atherosclerosis of ewiiaapaayp coronary vessel (Chronic 01/05/13) " STEMI November of 2011 treated at [facility] with a PCI to the RCA" Diastolic CHF (Chronic) COPD (chronic obstructive pulmonary disease) (Chronic) Chronic respiratory failure with hypoxia (Chronic) Tobacco use disorder (Chronic) Chronic obstructive lung disease (Chronic 01/05/13) Cirrhosis of liver (Chronic) "autoimmune, 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" DM type 2 (diabetes mellitus, type 2) (Chronic) Morbid obesity with BMI of 40.0-44.9, adult (Chronic) Hypothyroidism (Chronic) Peripheral vascular disease (Chronic) Acute hyperglycemia (Inactive) Surgical History History of hysterectomy (Chronic 02/08/13) S/P tonsillectomy and adenoidectomy (Chronic) S/P cholecystectomy (Chronic) S/P coronary artery stent placement (Chronic) "11/2011 ISABEL to RCA" Family History Other Diabetes Heart disease Hypertension Social History Preferred Language: Burmese Scratch Polisher Required: No Beliefs That Will Affect Care: None marital status: Single Current Living Situation: Personal Care Facility current occupational status: disabled Feels Safe at Home: Yes Smoking Status: Current every day smoker Tobacco Cessation Education Requested by Patient: No Review of Systems A total of 10 systems reviewed and were otherwise negative Physical Exam Vital Signs Vital Signs - 24 hr 04/02/19 16:01 04/02/19 16:32 04/02/19 17:01 Temperature Temperature Source Pulse Rate 71 71 79 Pulse Rate [Apical] Pulse Rate [Left Finger] Pulse Rate from SpO2 Sensor 71 73 Pulse Rhythm [Apical] Pulse Strength [Apical] Pulse Strength [Left Finger] Respiratory Rate 23 24 17 Respiratory Effort / Characteristics Respiratory Depth Respiratory Pattern Blood Pressure 158/76 H 193/63 H 146/69 H Blood Pressure [Left Arm] Blood Pressure [Right Arm] Blood Pressure Mean 103 106 94 Blood Pressure Mean [Left Arm] Blood Pressure Mean [Right Arm] Blood Pressure Position [Left Arm] Blood Pressure Position [Right Arm] Pulse Oximetry 94 87 L Pulse Oximetry [Right Index Finger] Oxygen Delivery Method BiPAP BiPAP Oxygen Delivery Method [Right Index Finger] Oxygen Flow Rate Fraction of Inspired Oxygen SaO2/FiO2 Ratio 04/02/19 17:31 04/02/19 18:01 04/02/19 18:34 Temperature Temperature Source Pulse Rate 69 69 Pulse Rate [Apical] Pulse Rate [Left Finger] Pulse Rate from SpO2 Sensor 69 67 Pulse Rhythm [Apical] Pulse Strength [Apical] Pulse Strength [Left Finger] Respiratory Rate 20 21 Respiratory Effort / Characteristics Respiratory Depth Respiratory Pattern Blood Pressure 147/76 H 155/63 H Blood Pressure [Left Arm] Blood Pressure [Right Arm] Blood Pressure Mean 99 93 Blood Pressure Mean [Left Arm] Blood Pressure Mean [Right Arm] Blood Pressure Position [Left Arm] Blood Pressure Position [Right Arm] Pulse Oximetry 93 96 Pulse Oximetry [Right Index Finger] Oxygen Delivery Method BiPAP Oxygen Delivery Method [Right Index Finger] Oxygen Flow Rate Fraction of Inspired Oxygen SaO2/FiO2 Ratio 04/02/19 18:45 04/02/19 19:30 04/02/19 19:39 Temperature 36.8 C Temperature Source Axillary Pulse Rate 82 Pulse Rate [Apical] Pulse Rate [Left Finger] 70 Pulse Rate from SpO2 Sensor Pulse Rhythm [Apical] Pulse Strength [Apical] Pulse Strength [Left Finger] Normal Respiratory Rate 28 H 24 Respiratory Effort / Characteristics Non-Labored Spontaneous Non-Labored Non-Labored Respiratory Depth Normal Normal Respiratory Pattern Regular Regular Regular Blood Pressure Blood Pressure [Left Arm] 186/86 H Blood Pressure [Right Arm] Blood Pressure Mean Blood Pressure Mean [Left Arm] 119 Blood Pressure Mean [Right Arm] Blood Pressure Position [Left Arm] Lying Blood Pressure Position [Right Arm] Pulse Oximetry 95 95 Pulse Oximetry [Right Index Finger] Oxygen Delivery Method BiPAP BiPAP Oxygen Delivery Method [Right Index Finger] Oxygen Flow Rate Fraction of Inspired Oxygen 35 35 35 SaO2/FiO2 Ratio 271 04/02/19 20:00 04/02/19 20:59 04/02/19 21:00 Temperature Temperature Source Pulse Rate 73 Pulse Rate [Apical] 71 70 Pulse Rate [Left Finger] Pulse Rate from SpO2 Sensor Pulse Rhythm [Apical] Pulse Strength [Apical] Pulse Strength [Left Finger] Respiratory Rate 24 25 H Respiratory Effort / Characteristics Respiratory Depth Respiratory Pattern Blood Pressure Blood Pressure [Left Arm] Blood Pressure [Right Arm] 170/56 H 154/51 H Blood Pressure Mean Blood Pressure Mean [Left Arm] Blood Pressure Mean [Right Arm] 94 85 Blood Pressure Position [Left Arm] Blood Pressure Position [Right Arm] Pulse Oximetry 92 91 Pulse Oximetry [Right Index Finger] Oxygen Delivery Method BiPAP BiPAP Oxygen Delivery Method [Right Index Finger] Oxygen Flow Rate Fraction of Inspired Oxygen 35 35 SaO2/FiO2 Ratio 262 260 04/02/19 22:00 04/02/19 22:34 04/02/19 23:00 Temperature Temperature Source Pulse Rate 76 Pulse Rate [Apical] 73 72 Pulse Rate [Left Finger] Pulse Rate from SpO2 Sensor Pulse Rhythm [Apical] Pulse Strength [Apical] Pulse Strength [Left Finger] Respiratory Rate 24 20 21 Respiratory Effort / Characteristics Non-Labored Spontaneous Respiratory Depth Normal Respiratory Pattern Regular Blood Pressure Blood Pressure [Left Arm] Blood Pressure [Right Arm] 144/68 H 154/68 H Blood Pressure Mean Blood Pressure Mean [Left Arm] Blood Pressure Mean [Right Arm] 93 96 Blood Pressure Position [Left Arm] Blood Pressure Position [Right Arm] Pulse Oximetry 93 92 95 Pulse Oximetry [Right Index Finger] Oxygen Delivery Method BiPAP Oxygen Delivery Method [Right Index Finger] Oxygen Flow Rate Fraction of Inspired Oxygen 35 35 SaO2/FiO2 Ratio 265 04/03/19 00:00 04/03/19 00:44 04/03/19 01:00 Temperature 36.8 C Temperature Source Oral Pulse Rate 76 Pulse Rate [Apical] 74 71 Pulse Rate [Left Finger] Pulse Rate from SpO2 Sensor Pulse Rhythm [Apical] Pulse Strength [Apical] Pulse Strength [Left Finger] Respiratory Rate 24 24 20 Respiratory Effort / Characteristics Non-Labored Spontaneous Respiratory Depth Normal Respiratory Pattern Regular Blood Pressure Blood Pressure [Left Arm] Blood Pressure [Right Arm] 157/59 H 131/49 L Blood Pressure Mean Blood Pressure Mean [Left Arm] Blood Pressure Mean [Right Arm] 91 76 Blood Pressure Position [Left Arm] Blood Pressure Position [Right Arm] Pulse Oximetry 94 95 93 Pulse Oximetry [Right Index Finger] 93 Oxygen Delivery Method BiPAP Oxygen Delivery Method [Right Index Finger] BiPAP Oxygen Flow Rate Fraction of Inspired Oxygen 35 35 SaO2/FiO2 Ratio 268 04/03/19 02:00 04/03/19 03:00 04/03/19 04:00 Temperature 36.5 C Temperature Source Axillary Pulse Rate Pulse Rate [Apical] 69 68 67 Pulse Rate [Left Finger] Pulse Rate from SpO2 Sensor Pulse Rhythm [Apical] Pulse Strength [Apical] Pulse Strength [Left Finger] Respiratory Rate 20 19 22 Respiratory Effort / Characteristics Respiratory Depth Respiratory Pattern Blood Pressure Blood Pressure [Left Arm] Blood Pressure [Right Arm] 143/60 H 164/61 H 145/62 H Blood Pressure Mean Blood Pressure Mean [Left Arm] Blood Pressure Mean [Right Arm] 87 95 89 Blood Pressure Position [Left Arm] Blood Pressure Position [Right Arm] Pulse Oximetry 98 96 96 Pulse Oximetry [Right Index Finger] Oxygen Delivery Method BiPAP BiPAP Oxygen Delivery Method [Right Index Finger] Oxygen Flow Rate Fraction of Inspired Oxygen 35 35 SaO2/FiO2 Ratio 280 274 04/03/19 04:10 04/03/19 05:00 04/03/19 06:00 Temperature Temperature Source Pulse Rate 70 Pulse Rate [Apical] 68 69 Pulse Rate [Left Finger] Pulse Rate from SpO2 Sensor Pulse Rhythm [Apical] Pulse Strength [Apical] Pulse Strength [Left Finger] Respiratory Rate 25 H 23 20 Respiratory Effort / Characteristics Non-Labored Spontaneous Respiratory Depth Normal Normal Respiratory Pattern Regular Blood Pressure Blood Pressure [Left Arm] Blood Pressure [Right Arm] 159/54 H 150/58 H Blood Pressure Mean Blood Pressure Mean [Left Arm] Blood Pressure Mean [Right Arm] 89 88 Blood Pressure Position [Left Arm] Blood Pressure Position [Right Arm] Pulse Oximetry 96 96 94 Pulse Oximetry [Right Index Finger] Oxygen Delivery Method BiPAP Oxygen Delivery Method [Right Index Finger] Oxygen Flow Rate Fraction of Inspired Oxygen 35 35 SaO2/FiO2 Ratio 268 04/03/19 07:00 04/03/19 07:02 04/03/19 08:00 Temperature 36.4 C L Temperature Source Oral Pulse Rate 67 67 70 Pulse Rate [Apical] 68 Pulse Rate [Left Finger] Pulse Rate from SpO2 Sensor 66 67 66 Pulse Rhythm [Apical] Regular Pulse Strength [Apical] Normal Pulse Strength [Left Finger] Respiratory Rate 29 H 17 26 H Respiratory Effort / Characteristics Non-Labored Spontaneous Respiratory Depth Normal Respiratory Pattern Regular Blood Pressure 117/60 Blood Pressure [Left Arm] Blood Pressure [Right Arm] 149/78 H Blood Pressure Mean 79 Blood Pressure Mean [Left Arm] Blood Pressure Mean [Right Arm] 101 Blood Pressure Position [Left Arm] Blood Pressure Position [Right Arm] Lying Pulse Oximetry 92 95 92 Pulse Oximetry [Right Index Finger] 93 Oxygen Delivery Method BiPAP Oxygen Delivery Method [Right Index Finger] BiPAP Oxygen Flow Rate Fraction of Inspired Oxygen 35 SaO2/FiO2 Ratio 04/03/19 08:01 04/03/19 09:00 04/03/19 09:01 Temperature Temperature Source Pulse Rate 67 71 71 Pulse Rate [Apical] Pulse Rate [Left Finger] Pulse Rate from SpO2 Sensor 67 69 69 Pulse Rhythm [Apical] Pulse Strength [Apical] Pulse Strength [Left Finger] Respiratory Rate 21 23 19 Respiratory Effort / Characteristics Respiratory Depth Respiratory Pattern Blood Pressure 149/78 H 151/67 H Blood Pressure [Left Arm] Blood Pressure [Right Arm] Blood Pressure Mean 101 95 Blood Pressure Mean [Left Arm] Blood Pressure Mean [Right Arm] Blood Pressure Position [Left Arm] Blood Pressure Position [Right Arm] Pulse Oximetry 94 93 94 Pulse Oximetry [Right Index Finger] Oxygen Delivery Method Oxygen Delivery Method [Right Index Finger] Oxygen Flow Rate Fraction of Inspired Oxygen SaO2/FiO2 Ratio 04/03/19 09:40 04/03/19 10:00 04/03/19 11:00 Temperature 36.9 C Temperature Source Oral Pulse Rate 73 71 70 Pulse Rate [Apical] 74 Pulse Rate [Left Finger] Pulse Rate from SpO2 Sensor 69 70 66 Pulse Rhythm [Apical] Regular Pulse Strength [Apical] Normal Pulse Strength [Left Finger] Respiratory Rate 25 H 21 22 Respiratory Effort / Characteristics Non-Labored Spontaneous Respiratory Depth Normal Respiratory Pattern Regular Blood Pressure 151/67 H 151/70 H Blood Pressure [Left Arm] Blood Pressure [Right Arm] 163/73 H Blood Pressure Mean 95 97 Blood Pressure Mean [Left Arm] Blood Pressure Mean [Right Arm] 103 Blood Pressure Position [Left Arm] Blood Pressure Position [Right Arm] Lying Pulse Oximetry 90 90 91 Pulse Oximetry [Right Index Finger] Oxygen Delivery Method Nasal Cannula Oxygen Delivery Method [Right Index Finger] Oxygen Flow Rate 4 Fraction of Inspired Oxygen SaO2/FiO2 Ratio 04/03/19 11:01 04/03/19 12:00 Temperature 36.8 C Temperature Source Oral Pulse Rate 73 Pulse Rate [Apical] 70 Pulse Rate [Left Finger] Pulse Rate from SpO2 Sensor 68 Pulse Rhythm [Apical] Pulse Strength [Apical] Pulse Strength [Left Finger] Respiratory Rate 24 22 Respiratory Effort / Characteristics Non-Labored Spontaneous Respiratory Depth Normal Respiratory Pattern Blood Pressure 163/73 H Blood Pressure [Left Arm] Blood Pressure [Right Arm] Blood Pressure Mean 103 Blood Pressure Mean [Left Arm] Blood Pressure Mean [Right Arm] Blood Pressure Position [Left Arm] Blood Pressure Position [Right Arm] Pulse Oximetry 91 93 Pulse Oximetry [Right Index Finger] 93 Oxygen Delivery Method Nasal Cannula Oxygen Delivery Method [Right Index Finger] BiPAP Oxygen Flow Rate 4 Fraction of Inspired Oxygen SaO2/FiO2 Ratio Constitutional WD/WN, vitals as above Eyes EOM intact bilaterally ENMT external ear and nose normal, oropharynx normal (Oral mucosa dry) Neck trachea midline Respiratory Diffuse wheezing with decreased breath sounds in the bases bilaterally. Cardiovascular RRR, no murmur, no edema Gastrointestinal (Abdomen) normal bowel sounds, soft, nontender, no hepatosplenomegaly Musculoskeletal +1 pitting edema in the lower extremities bilaterally. Skin Multiple scabs noted diffusely over the face and trunk. Erythema noted particularly to the thighs bilaterally. Neurologic Alert and oriented x3. No focal motor deficits. Psychiatric Acting appropriately Course Patient was seen and examined Vital signs including blood pressure were reviewed medications list was verified with patient Labs were obtained, and a saline lock was established The patient was given a DuoNeb. She was also put on BiPAP. Chest x-ray was performed and reviewed. The patient was also seen and examined by my supervising physician who is in agreement with my plan Upon reevaluation, the patient was slightly improved. We discussed her work-up. She voiced understanding. CODE STATUS was discussed. The patient was given an additional neb. She was also ordered Lasix 80 mg IV. The case was discussed with the hospitalist service and subsequently the channel opener outsoles. They kindly agreed to evaluate the patient for further management. Consultations Consultation #1: Dr. Crane Consultation #2: Dr. Eugene Administered Medications Aspirin (Ecotrin Ectab) 81 mg PO DAILY [facility] Stop: 05/03/19 08:59 Last Admin: 04/03/19 08:36 Dose: 81 mg Documented by: [id number] Atorvastatin Calcium (Lipitor) 40 mg PO DAILY [facility] Stop: 05/03/19 08:59 Last Admin: 04/03/19 08:36 Dose: 40 mg Documented by: [id number] Clopidogrel Bisulfate (Plavix) 75 mg PO DAILY [facility] Stop: 05/03/19 08:59 Last Admin: 04/03/19 08:36 Dose: 75 mg Documented by: [id number] Gabapentin (Neurontin) 100 mg PO TID [facility] Stop: 05/02/19 20:59 Last Admin: 04/03/19 14:30 Dose: 100 mg Documented by: [id number] Admin: 04/03/19 08:36 Dose: 100 mg Documented by: [id number] Admin: 04/02/19 21:13 Dose: 100 mg Documented by: [id number] Doxycycline Hyclate 100 mg/ (Dextrose) 110 mls @ 50 mls/hr IV Q12H [facility]; Protocol Stop: 04/10/19 00:00 Last Admin: 04/03/19 14:31 Dose: 50 mls/hr Documented by: [id number] Infusion: 04/03/19 01:37 Dose: 0 mls/hr Documented by: [id number] Admin: 04/02/19 23:25 Dose: 50 mls/hr Documented by: [id number] Heparin Sodium (Porcine) 7,500 (units/ Syringe) 0.75 mls @ 0 mls/min SQ TID [facility] Stop: 05/03/19 13:59 Last Admin: 04/03/19 14:32 Dose: 0.75 mls/min Documented by: [id number] Cosigned by: [id number] Insulin Glargine (Lantus Solostar Pen) 45 units SC BID [place] Stop: 05/03/19 08:44 Last Admin: 04/03/19 09:17 Dose: 45 units Documented by: [id number] Cosigned by: [id number] Levothyroxine Sodium (Synthroid) 200 mcg PO DAILYBB [facility] Stop: 05/03/19 06:29 Last Admin: 04/03/19 05:58 Dose: 200 mcg Documented by: [id number] Miscellaneous (Order Awaiting Action) 1 ea N/A QS [facility] Stop: 05/03/19 00:00 Last Admin: 04/03/19 15:14 Dose: Not Given Documented by: [id number] Admin: 04/03/19 15:14 Dose: Not Given Documented by: [id number] Admin: 04/03/19 00:46 Dose: Not Given Documented by: [id number] Nystatin (Mycostatin) 1 appln EXT TID [facility] Stop: 05/02/19 20:59 Last Admin: 04/03/19 14:30 Dose: 1 appln Documented by: [id number] Admin: 04/03/19 08:35 Dose: 1 appln Documented by: [id number] Admin: 04/02/19 21:44 Dose: 1 appln Documented by: [id number] Pantoprazole Sodium (Protonix) 40 mg PO DAILY [facility] Stop: 05/03/19 08:59 Last Admin: 04/03/19 08:36 Dose: 40 mg Documented by: [id number] Discontinued Medications Albuterol (Duoneb) 3 ml NEB NOW STA Stop: 04/02/19 14:02 Last Admin: 04/02/19 14:11 Dose: 3 ml Documented by: [id number] Albuterol (Duoneb) 3 ml NEB NOW STA Stop: 04/02/19 15:37 Last Admin: 04/02/19 15:42 Dose: 3 ml Documented by: [id number] Furosemide (Lasix) Confirm Administered Dose 80 mg IV .STK-MED ONE Stop: 04/02/19 16:38 Last Admin: 04/02/19 16:38 Dose: 80 mg Documented by: [id number] Heparin Sodium (Porcine) (Heparin Sodium (Porcine)) 5,000 units SQ Q8 [facility] Stop: 05/02/19 21:59 Last Admin: 04/03/19 05:57 Dose: 5,000 units Documented by: [id number] Cosigned by: [id number] Admin: 04/02/19 21:45 Dose: 5,000 units Documented by: [id number] Cosigned by: [id number] Furosemide 80 mg/ Syringe 8 mls @ 4 mls/min IV ONE ONE Stop: 04/02/19 15:55 Last Admin: 04/02/19 16:38 Dose: Not Given Documented by: [id number] Levofloxacin/Dextrose (Levaquin/D5w) 500 mg in 100 mls @ 100 mls/hr IV Q24H [place] Stop: 04/09/19 19:59 Last Infusion: 04/02/19 21:47 Dose: 0 mls/hr Documented by: [id number] Admin: 04/02/19 21:13 Dose: 100 mls/hr Documented by: [id number] Furosemide 40 mg/ Syringe 4 mls @ 4 mls/min IV TID@0700,1200,1900 [facility] Stop: 05/03/19 06:59 Last Admin: 04/03/19 11:36 Dose: 4 mls/min Documented by: [id number] Admin: 04/03/19 06:25 Dose: 4 mls/min Documented by: [id number] Methylprednisolone 60 mg/ (Syringe) 0.96 mls @ 1.5 mls/min IV Q6H [facility] Stop: 05/02/19 19:59 Last Admin: 04/03/19 08:36 Dose: 1.5 mls/min Documented by: [id number] Admin: 04/03/19 01:53 Dose: 1.5 mls/min Documented by: [id number] Admin: 04/02/19 21:13 Dose: 1.5 mls/min Documented by: [id number] Cefepime HCl 2,000 mg/ Syringe 20 mls @ 5.5 mls/min IV Q8 [facility]; Protocol Stop: 04/09/19 21:29 Last Admin: 04/03/19 05:57 Dose: 5.5 mls/min Documented by: [id number] Admin: 04/02/19 21:44 Dose: 5.5 mls/min Documented by: [id number] Magnesium Sulfate/Dextrose (Magnesium Sulfate / D5w) 1 gm in 100 mls @ 100 mls/hr IV Q1H [facility] Stop: 04/03/19 10:29 Last Infusion: 04/03/19 11:13 Dose: 0 mls/hr Documented by: [id number] Admin: 04/03/19 09:50 Dose: 100 mls/hr Documented by: [id number] Infusion: 04/03/19 09:45 Dose: 0 mls/hr Documented by: [id number] Admin: 04/03/19 08:35 Dose: 100 mls/hr Documented by: [id number] Magnesium Sulfate/Dextrose (Magnesium Sulfate / D5w) 1 gm in 100 mls @ 100 mls/hr IV Q1H [facility] Stop: 04/03/19 15:14 Last Admin: 04/03/19 15:16 Dose: 100 mls/hr Documented by: [id number] Insulin Aspart (Novolog Flexpen) 0 units SC Q6 [facility] Stop: 05/03/19 00:00 Last Admin: 04/03/19 11:36 Dose: 2 units Documented by: [id number] Cosigned by: [id number] Admin: 04/03/19 05:58 Dose: 2 units Documented by: [id number] Cosigned by: [id number] Admin: 04/02/19 23:25 Dose: 1 units Documented by: [id number] Cosigned by: [id number] Ioversol (Optiray 320 125ml) 120 ml IV ONCE PRN PRN Reason: Interaction Checking Stop: 04/06/19 15:24 Last Admin: 04/02/19 15:25 Dose: 120 ml Documented by: [id number] Nitroglycerin (Nitro-Bid 2%) 2 inch EXT ONE ONE Stop: 04/02/19 21:01 Last Admin: 04/02/19 21:44 Dose: 2 inch Documented by: [id number] Perflutren Lipid Microsphere (Definity) 2 ml IV ONCE ONE Stop: 04/03/19 08:00 Last Admin: 04/03/19 08:00 Dose: 2 ml Documented by: [id number] Medical Decision Making Medical Records Attestation: I reviewed the patient's medical records. Home Medications Current Medication List: was personally reviewed by me Laboratory Data Attestation: I reviewed the patient's lab results. Result diagrams: 04/03/19 04:48 04/03/19 13:17 Lab Results 04/02/19 04/02/19 04/02/19 Range/Units 13:10 13:10 13:10 WBC 8.30 (4.8-10.8) K/uL RBC 3.70 L (4.2-5.4) M/uL Hgb 11.6 L (12.0-16.0) g/dL Hct 36.5 L (37-47) % MCV 98.6 (80-100) fL MCH 31.4 (25-34) pg MCHC 31.8 L (32-36) g/dL RDW Std Deviation 48.2 H (36.4-46.3) fL RDW Coeff of Ministerio 13.4 (11.5-14.5) % Plt Count 213 (130-400) K/uL MPV 8.6 (7.4-10.4) fL Immature Gran % (Auto) 1.0 % Neut % (Auto) 80.1 % Lymph % (Auto) 8.8 % [place] % (Auto) 3.5 % Eos % (Auto) 6.5 % Baso % (Auto) 0.1 % Immature Gran # (Auto) 0.08 H (0.00-0.02) K/uL Neut # (Auto) 6.65 H (1.4-6.5) K/uL Lymph # (Auto) 0.73 L (1.2-3.4) K/uL [place] # (Auto) 0.29 (0.11-0.59) K/uL Eos # (Auto) 0.54 H (0-0.5) K/uL Baso # (Auto) 0.01 (0-0.2) K/uL Absolute Nucleated RBC 0.02 H (0-0) K/uL Nucleated RBC % (auto) 0.2 % PT 9.8 (9.0-12.0) Seconds INR 1.0 (0.9-1.1) Specimen Type Sample Site Patient Temperature POC pH (7.35-7.45) POC pCO2 (35-46) mmHg POC pO2 (80-95) mmHg POC HCO3 (19-24) simone/L POC Total CO2 (24-31) mEq/l POC Base Excess (-9-1.8) simone/L O2 Sat Pulse Oximetry ABG pH (7.35-7.45) ABG pCO2 (35-46) mmHg ABG pO2 (80-95) mm/Hg ABG HCO3 (19-24) mmol/L POC ABG O2 Sat (90-95) % ABG O2 Saturation (90-95) % ABG Base Excess (-9-1.8) mEq/L Alon Test (Pos) Barometric Pressure mm/Hg Oxygen Given O2 Delivery Device POC O2 Rate POC FiO2 % EPAP IPAP Sodium 124 L (136-145) mmol/L Potassium 5.5 H (3.5-5.1) mmol/L Chloride 82 L (98-107) mmol/L Carbon Dioxide 40 H (21-32) mmol/L Anion Gap 2.0 L (3-11) BUN 15 (7-18) mg/dl Creatinine 0.39 L (0.6-1.2) mg/dl Est Cr Clr Drug Dosing 236.5 ml/min Est GFR ( Amer) 133.2 Est GFR (Non-Af Amer) 115.0 BUN/Creatinine Ratio 37.8 H (10-20) Glucose 145 H (70-99) mg/dl POC Glucose (70-99) Lactate (0.4-2.0) mmol/L Calcium 9.2 (8.5-10.1) mg/dl Phosphorus (2.5-4.9) mg/dl Magnesium (1.8-2.4) mg/dl Total Bilirubin 0.3 (0.2-1) mg/dl AST 38 H (15-37) U/L ALT 97 H (12-78) U/L Alkaline Phosphatase 107 (45-117) U/L Troponin I 0.191 H* (0-0.045) ng/ml Total Protein 6.8 (6.4-8.2) gm/dl Albumin 3.0 L (3.4-5.0) gm/dl Globulin 3.8 (2.5-4.0) gm/dl Albumin/Globulin Ratio 0.8 L (0.9-2) Procalcitonin (0-0.5) ng/ml TSH (0.300-4.500) uIu/ml Urine Color Urine Appearance (Clear) Urine pH (4.5-7.5) Ur Specific [place] (1.000-1.030) Urine Protein (Negative) Urine Glucose (UA) (Negative) Urine Ketones (Negative) Urine Blood (Negative) Urine Nitrite (Negative) Urine Bilirubin (Negative) Urine Urobilinogen (Negative) Ur Leukocyte Esterase (Negative) Urine WBC (Auto) (0-5) /hpf Urine RBC (Auto) (0-4) /hpf U Hyaline Cast (Auto) (0-5) /lpf U Epithel Cells (Auto) (0-5) /lpf Urine Bacteria (Auto) (Negative) Nasal Screen MRSA (PCR) (Negative) Influenza Type A (PCR) (Neg) Influenza Type B (PCR) (Neg) 04/02/19 04/02/19 04/02/19 Range/Units 14:30 15:03 15:10 WBC (4.8-10.8) K/uL RBC (4.2-5.4) M/uL Hgb (12.0-16.0) g/dL Hct (37-47) % MCV (80-100) fL MCH (25-34) pg MCHC (32-36) g/dL RDW Std Deviation (36.4-46.3) fL RDW Coeff of Ministerio (11.5-14.5) % Plt Count (130-400) K/uL MPV (7.4-10.4) fL Immature Gran % (Auto) % Neut % (Auto) % Lymph % (Auto) % [place] % (Auto) % Eos % (Auto) % Baso % (Auto) % Immature Gran # (Auto) (0.00-0.02) K/uL Neut # (Auto) (1.4-6.5) K/uL Lymph # (Auto) (1.2-3.4) K/uL [place] # (Auto) (0.11-0.59) K/uL Eos # (Auto) (0-0.5) K/uL Baso # (Auto) (0-0.2) K/uL Absolute Nucleated RBC (0-0) K/uL Nucleated RBC % (auto) % PT (9.0-12.0) Seconds INR (0.9-1.1) Specimen Type Sample Site Patient Temperature POC pH (7.35-7.45) POC pCO2 (35-46) mmHg POC pO2 (80-95) mmHg POC HCO3 (19-24) simone/L POC Total CO2 (24-31) mEq/l POC Base Excess (-9-1.8) simone/L O2 Sat Pulse Oximetry ABG pH 7.27 L (7.35-7.45) ABG pCO2 99 H (35-46) mmHg ABG pO2 70 L (80-95) mm/Hg ABG HCO3 44 H (19-24) mmol/L POC ABG O2 Sat (90-95) % ABG O2 Saturation 92.5 (90-95) % ABG Base Excess 12.6 H (-9-1.8) mEq/L Alon Test Pos (Pos) Barometric Pressure 731.8 mm/Hg Oxygen Given 35% O2 Delivery Device POC O2 Rate POC FiO2 % EPAP IPAP Sodium (136-145) mmol/L Potassium (3.5-5.1) mmol/L Chloride (98-107) mmol/L Carbon Dioxide (21-32) mmol/L Anion Gap (3-11) BUN (7-18) mg/dl Creatinine (0.6-1.2) mg/dl Est Cr Clr Drug Dosing ml/min Est GFR ( Amer) Est GFR (Non-Af Amer) BUN/Creatinine Ratio (10-20) Glucose (70-99) mg/dl POC Glucose (70-99) Lactate 1.0 (0.4-2.0) mmol/L Calcium (8.5-10.1) mg/dl Phosphorus (2.5-4.9) mg/dl Magnesium (1.8-2.4) mg/dl Total Bilirubin (0.2-1) mg/dl AST (15-37) U/L ALT (12-78) U/L Alkaline Phosphatase (45-117) U/L Troponin I (0-0.045) ng/ml Total Protein (6.4-8.2) gm/dl Albumin (3.4-5.0) gm/dl Globulin (2.5-4.0) gm/dl Albumin/Globulin Ratio (0.9-2) Procalcitonin (0-0.5) ng/ml TSH (0.300-4.500) uIu/ml Urine Color Urine Appearance (Clear) Urine pH (4.5-7.5) Ur Specific [place] (1.000-1.030) Urine Protein (Negative) Urine Glucose (UA) (Negative) Urine Ketones (Negative) Urine Blood (Negative) Urine Nitrite (Negative) Urine Bilirubin (Negative) Urine Urobilinogen (Negative) Ur Leukocyte Esterase (Negative) Urine WBC (Auto) (0-5) /hpf Urine RBC (Auto) (0-4) /hpf U Hyaline Cast (Auto) (0-5) /lpf U Epithel Cells (Auto) (0-5) /lpf Urine Bacteria (Auto) (Negative) Nasal Screen MRSA (PCR) (Negative) Influenza Type A (PCR) Neg for Influ A (Neg) Influenza Type B (PCR) Neg for Influ B (Neg) 04/02/19 04/02/19 04/02/19 Range/Units 16:43 19:22 19:25 WBC (4.8-10.8) K/uL RBC (4.2-5.4) M/uL Hgb (12.0-16.0) g/dL Hct (37-47) % MCV (80-100) fL MCH (25-34) pg MCHC (32-36) g/dL RDW Std Deviation (36.4-46.3) fL RDW Coeff of Ministerio (11.5-14.5) % Plt Count (130-400) K/uL MPV (7.4-10.4) fL Immature Gran % (Auto) % Neut % (Auto) % Lymph % (Auto) % [place] % (Auto) % Eos % (Auto) % Baso % (Auto) % Immature Gran # (Auto) (0.00-0.02) K/uL Neut # (Auto) (1.4-6.5) K/uL Lymph # (Auto) (1.2-3.4) K/uL [place] # (Auto) (0.11-0.59) K/uL Eos # (Auto) (0-0.5) K/uL Baso # (Auto) (0-0.2) K/uL Absolute Nucleated RBC (0-0) K/uL Nucleated RBC % (auto) % PT (9.0-12.0) Seconds INR (0.9-1.1) Specimen Type Arterial Sample Site L Radial Patient Temperature 36.8 POC pH 7.30 L (7.35-7.45) POC pCO2 97 H (35-46) mmHg POC pO2 73 L (80-95) mmHg POC HCO3 48 H (19-24) simone/L POC Total CO2 > 50 H* (24-31) mEq/l POC Base Excess 21.0 H (-9-1.8) simone/L O2 Sat Pulse Oximetry 96 ABG pH (7.35-7.45) ABG pCO2 (35-46) mmHg ABG pO2 (80-95) mm/Hg ABG HCO3 (19-24) mmol/L POC ABG O2 Sat 91.0 (90-95) % ABG O2 Saturation (90-95) % ABG Base Excess (-9-1.8) mEq/L Alon Test Acceptable (Pos) Barometric Pressure mm/Hg Oxygen Given O2 Delivery Device BIPAP POC O2 Rate 12 POC FiO2 35 % EPAP 5 IPAP 17 Sodium (136-145) mmol/L Potassium (3.5-5.1) mmol/L Chloride (98-107) mmol/L Carbon Dioxide (21-32) mmol/L Anion Gap (3-11) BUN (7-18) mg/dl Creatinine (0.6-1.2) mg/dl Est Cr Clr Drug Dosing ml/min Est GFR ( Amer) Est GFR (Non-Af Amer) BUN/Creatinine Ratio (10-20) Glucose (70-99) mg/dl POC Glucose (70-99) Lactate (0.4-2.0) mmol/L Calcium (8.5-10.1) mg/dl Phosphorus (2.5-4.9) mg/dl Magnesium (1.8-2.4) mg/dl Total Bilirubin (0.2-1) mg/dl AST (15-37) U/L ALT (12-78) U/L Alkaline Phosphatase (45-117) U/L Troponin I (0-0.045) ng/ml Total Protein (6.4-8.2) gm/dl Albumin (3.4-5.0) gm/dl Globulin (2.5-4.0) gm/dl Albumin/Globulin Ratio (0.9-2) Procalcitonin (0-0.5) ng/ml TSH (0.300-4.500) uIu/ml Urine Color Yellow Urine Appearance Clear (Clear) Urine pH 5.5 (4.5-7.5) Ur Specific [place] 1.029 (1.000-1.030) Urine Protein 1+ H (Negative) Urine Glucose (UA) Negative (Negative) Urine Ketones Negative (Negative) Urine Blood Trace H (Negative) Urine Nitrite Negative (Negative) Urine Bilirubin Negative (Negative) Urine Urobilinogen Negative (Negative) Ur Leukocyte Esterase Negative (Negative) Urine WBC (Auto) 1-5 (0-5) /hpf Urine RBC (Auto) 0-4 (0-4) /hpf U Hyaline Cast (Auto) 1-5 (0-5) /lpf U Epithel Cells (Auto) 10-20 H (0-5) /lpf Urine Bacteria (Auto) Negative (Negative) Nasal Screen MRSA (PCR) Positive A (Negative) Influenza Type A (PCR) (Neg) Influenza Type B (PCR) (Neg) 04/02/19 04/02/19 04/02/19 Range/Units 20:57 21:06 21:06 WBC (4.8-10.8) K/uL RBC (4.2-5.4) M/uL Hgb (12.0-16.0) g/dL Hct (37-47) % MCV (80-100) fL MCH (25-34) pg MCHC (32-36) g/dL RDW Std Deviation (36.4-46.3) fL RDW Coeff of Ministerio (11.5-14.5) % Plt Count (130-400) K/uL MPV (7.4-10.4) fL Immature Gran % (Auto) % Neut % (Auto) % Lymph % (Auto) % [place] % (Auto) % Eos % (Auto) % Baso % (Auto) % Immature Gran # (Auto) (0.00-0.02) K/uL Neut # (Auto) (1.4-6.5) K/uL Lymph # (Auto) (1.2-3.4) K/uL [place] # (Auto) (0.11-0.59) K/uL Eos # (Auto) (0-0.5) K/uL Baso # (Auto) (0-0.2) K/uL Absolute Nucleated RBC (0-0) K/uL Nucleated RBC % (auto) % PT (9.0-12.0) Seconds INR (0.9-1.1) Specimen Type Sample Site Patient Temperature POC pH (7.35-7.45) POC pCO2 (35-46) mmHg POC pO2 (80-95) mmHg POC HCO3 (19-24) simone/L POC Total CO2 (24-31) mEq/l POC Base Excess (-9-1.8) simone/L O2 Sat Pulse Oximetry ABG pH (7.35-7.45) ABG pCO2 (35-46) mmHg ABG pO2 (80-95) mm/Hg ABG HCO3 (19-24) mmol/L POC ABG O2 Sat (90-95) % ABG O2 Saturation (90-95) % ABG Base Excess (-9-1.8) mEq/L Alon Test (Pos) Barometric Pressure mm/Hg Oxygen Given O2 Delivery Device POC O2 Rate POC FiO2 % EPAP IPAP Sodium (136-145) mmol/L Potassium (3.5-5.1) mmol/L Chloride (98-107) mmol/L Carbon Dioxide (21-32) mmol/L Anion Gap (3-11) BUN (7-18) mg/dl Creatinine (0.6-1.2) mg/dl Est Cr Clr Drug Dosing ml/min Est GFR ( Amer) Est GFR (Non-Af Amer) BUN/Creatinine Ratio (10-20) Glucose (70-99) mg/dl POC Glucose 187 H (70-99) Lactate (0.4-2.0) mmol/L Calcium (8.5-10.1) mg/dl Phosphorus (2.5-4.9) mg/dl Magnesium (1.8-2.4) mg/dl Total Bilirubin (0.2-1) mg/dl AST (15-37) U/L ALT (12-78) U/L Alkaline Phosphatase (45-117) U/L Troponin I 0.173 H* (0-0.045) ng/ml Total Protein (6.4-8.2) gm/dl Albumin (3.4-5.0) gm/dl Globulin (2.5-4.0) gm/dl Albumin/Globulin Ratio (0.9-2) Procalcitonin (0-0.5) ng/ml TSH 0.987 (0.300-4.500) uIu/ml Urine Color Urine Appearance (Clear) Urine pH (4.5-7.5) Ur Specific [place] (1.000-1.030) Urine Protein (Negative) Urine Glucose (UA) (Negative) Urine Ketones (Negative) Urine Blood (Negative) Urine Nitrite (Negative) Urine Bilirubin (Negative) Urine Urobilinogen (Negative) Ur Leukocyte Esterase (Negative) Urine WBC (Auto) (0-5) /hpf Urine RBC (Auto) (0-4) /hpf U Hyaline Cast (Auto) (0-5) /lpf U Epithel Cells (Auto) (0-5) /lpf Urine Bacteria (Auto) (Negative) Nasal Screen MRSA (PCR) (Negative) Influenza Type A (PCR) (Neg) Influenza Type B (PCR) (Neg) 04/02/19 04/03/19 04/03/19 Range/Units 23:23 00:57 04:48 WBC 5.19 (4.8-10.8) K/uL RBC 3.74 L (4.2-5.4) M/uL Hgb 11.6 L (12.0-16.0) g/dL Hct 35.4 L (37-47) % MCV 94.7 (80-100) fL MCH 31.0 (25-34) pg MCHC 32.8 (32-36) g/dL RDW Std Deviation 44.9 (36.4-46.3) fL RDW Coeff of Ministerio 12.9 (11.5-14.5) % Plt Count 169 (130-400) K/uL MPV 8.3 (7.4-10.4) fL Immature Gran % (Auto) 1.2 % Neut % (Auto) 83.8 % Lymph % (Auto) 12.5 % [place] % (Auto) 2.1 % Eos % (Auto) 0.2 % Baso % (Auto) 0.2 % Immature Gran # (Auto) 0.06 H (0.00-0.02) K/uL Neut # (Auto) 4.35 (1.4-6.5) K/uL Lymph # (Auto) 0.65 L (1.2-3.4) K/uL [place] # (Auto) 0.11 (0.11-0.59) K/uL Eos # (Auto) 0.01 (0-0.5) K/uL Baso # (Auto) 0.01 (0-0.2) K/uL Absolute Nucleated RBC (0-0) K/uL Nucleated RBC % (auto) % PT (9.0-12.0) Seconds INR (0.9-1.1) Specimen Type Sample Site Patient Temperature POC pH (7.35-7.45) POC pCO2 (35-46) mmHg POC pO2 (80-95) mmHg POC HCO3 (19-24) simone/L POC Total CO2 (24-31) mEq/l POC Base Excess (-9-1.8) simone/L O2 Sat Pulse Oximetry ABG pH (7.35-7.45) ABG pCO2 (35-46) mmHg ABG pO2 (80-95) mm/Hg ABG HCO3 (19-24) mmol/L POC ABG O2 Sat (90-95) % ABG O2 Saturation (90-95) % ABG Base Excess (-9-1.8) mEq/L Alon Test (Pos) Barometric Pressure mm/Hg Oxygen Given O2 Delivery Device POC O2 Rate POC FiO2 % EPAP IPAP Sodium (136-145) mmol/L Potassium (3.5-5.1) mmol/L Chloride (98-107) mmol/L Carbon Dioxide (21-32) mmol/L Anion Gap (3-11) BUN (7-18) mg/dl Creatinine (0.6-1.2) mg/dl Est Cr Clr Drug Dosing ml/min Est GFR ( Amer) Est GFR (Non-Af Amer) BUN/Creatinine Ratio (10-20) Glucose (70-99) mg/dl POC Glucose 187 H (70-99) Lactate (0.4-2.0) mmol/L Calcium (8.5-10.1) mg/dl Phosphorus (2.5-4.9) mg/dl Magnesium (1.8-2.4) mg/dl Total Bilirubin (0.2-1) mg/dl AST (15-37) U/L ALT (12-78) U/L Alkaline Phosphatase (45-117) U/L Troponin I 0.163 H* (0-0.045) ng/ml Total Protein (6.4-8.2) gm/dl Albumin (3.4-5.0) gm/dl Globulin (2.5-4.0) gm/dl Albumin/Globulin Ratio (0.9-2) Procalcitonin (0-0.5) ng/ml TSH (0.300-4.500) uIu/ml Urine Color Urine Appearance (Clear) Urine pH (4.5-7.5) Ur Specific [place] (1.000-1.030) Urine Protein (Negative) Urine Glucose (UA) (Negative) Urine Ketones (Negative) Urine Blood (Negative) Urine Nitrite (Negative) Urine Bilirubin (Negative) Urine Urobilinogen (Negative) Ur Leukocyte Esterase (Negative) Urine WBC (Auto) (0-5) /hpf Urine RBC (Auto) (0-4) /hpf U Hyaline Cast (Auto) (0-5) /lpf U Epithel Cells (Auto) (0-5) /lpf Urine Bacteria (Auto) (Negative) Nasal Screen MRSA (PCR) (Negative) Influenza Type A (PCR) (Neg) Influenza Type B (PCR) (Neg) 04/03/19 04/03/19 04/03/19 Range/Units 04:48 05:35 08:52 WBC (4.8-10.8) K/uL RBC (4.2-5.4) M/uL Hgb (12.0-16.0) g/dL Hct (37-47) % MCV (80-100) fL MCH (25-34) pg MCHC (32-36) g/dL RDW Std Deviation (36.4-46.3) fL RDW Coeff of Ministerio (11.5-14.5) % Plt Count (130-400) K/uL MPV (7.4-10.4) fL Immature Gran % (Auto) % Neut % (Auto) % Lymph % (Auto) % [place] % (Auto) % Eos % (Auto) % Baso % (Auto) % Immature Gran # (Auto) (0.00-0.02) K/uL Neut # (Auto) (1.4-6.5) K/uL Lymph # (Auto) (1.2-3.4) K/uL [place] # (Auto) (0.11-0.59) K/uL Eos # (Auto) (0-0.5) K/uL Baso # (Auto) (0-0.2) K/uL Absolute Nucleated RBC (0-0) K/uL Nucleated RBC % (auto) % PT (9.0-12.0) Seconds INR (0.9-1.1) Specimen Type Sample Site L Radial Patient Temperature POC pH 7.42 (7.35-7.45) POC pCO2 78 H (35-46) mmHg POC pO2 68 L (80-95) mmHg POC HCO3 51 H (19-24) simone/L POC Total CO2 < 5 L* (24-31) mEq/l POC Base Excess 26.0 H (-9-1.8) simone/L O2 Sat Pulse Oximetry ABG pH (7.35-7.45) ABG pCO2 (35-46) mmHg ABG pO2 (80-95) mm/Hg ABG HCO3 (19-24) mmol/L POC ABG O2 Sat 93.0 (90-95) % ABG O2 Saturation (90-95) % ABG Base Excess (-9-1.8) mEq/L Alon Test Pass (Pos) Barometric Pressure mm/Hg Oxygen Given O2 Delivery Device BIPAP POC O2 Rate POC FiO2 35 % EPAP IPAP 17 Sodium 122 L (136-145) mmol/L Potassium 4.1 D (3.5-5.1) mmol/L Chloride 77 L (98-107) mmol/L Carbon Dioxide 44 H* (21-32) mmol/L Anion Gap 1.0 L (3-11) BUN 10 D (7-18) mg/dl Creatinine 0.29 L (0.6-1.2) mg/dl Est Cr Clr Drug Dosing 314.4 ml/min Est GFR ( Amer) 146.9 Est GFR (Non-Af Amer) 126.7 BUN/Creatinine Ratio 32.6 H (10-20) Glucose 171 H (70-99) mg/dl POC Glucose 205 H (70-99) Lactate (0.4-2.0) mmol/L Calcium 9.0 (8.5-10.1) mg/dl Phosphorus 3.2 (2.5-4.9) mg/dl Magnesium 1.6 L (1.8-2.4) mg/dl Total Bilirubin (0.2-1) mg/dl AST (15-37) U/L ALT (12-78) U/L Alkaline Phosphatase (45-117) U/L Troponin I (0-0.045) ng/ml Total Protein (6.4-8.2) gm/dl Albumin (3.4-5.0) gm/dl Globulin (2.5-4.0) gm/dl Albumin/Globulin Ratio (0.9-2) Procalcitonin (0-0.5) ng/ml TSH (0.300-4.500) uIu/ml Urine Color Urine Appearance (Clear) Urine pH (4.5-7.5) Ur Specific [place] (1.000-1.030) Urine Protein (Negative) Urine Glucose (UA) (Negative) Urine Ketones (Negative) Urine Blood (Negative) Urine Nitrite (Negative) Urine Bilirubin (Negative) Urine Urobilinogen (Negative) Ur Leukocyte Esterase (Negative) Urine WBC (Auto) (0-5) /hpf Urine RBC (Auto) (0-4) /hpf U Hyaline Cast (Auto) (0-5) /lpf U Epithel Cells (Auto) (0-5) /lpf Urine Bacteria (Auto) (Negative) Nasal Screen MRSA (PCR) (Negative) Influenza Type A (PCR) (Neg) Influenza Type B (PCR) (Neg) 04/03/19 04/03/19 04/03/19 Range/Units 10:59 13:17 13:17 WBC (4.8-10.8) K/uL RBC (4.2-5.4) M/uL Hgb (12.0-16.0) g/dL Hct (37-47) % MCV (80-100) fL MCH (25-34) pg MCHC (32-36) g/dL RDW Std Deviation (36.4-46.3) fL RDW Coeff of Ministerio (11.5-14.5) % Plt Count (130-400) K/uL MPV (7.4-10.4) fL Immature Gran % (Auto) % Neut % (Auto) % Lymph % (Auto) % [place] % (Auto) % Eos % (Auto) % Baso % (Auto) % Immature Gran # (Auto) (0.00-0.02) K/uL Neut # (Auto) (1.4-6.5) K/uL Lymph # (Auto) (1.2-3.4) K/uL [place] # (Auto) (0.11-0.59) K/uL Eos # (Auto) (0-0.5) K/uL Baso # (Auto) (0-0.2) K/uL Absolute Nucleated RBC (0-0) K/uL Nucleated RBC % (auto) % PT (9.0-12.0) Seconds INR (0.9-1.1) Specimen Type Sample Site Patient Temperature POC pH (7.35-7.45) POC pCO2 (35-46) mmHg POC pO2 (80-95) mmHg POC HCO3 (19-24) simone/L POC Total CO2 (24-31) mEq/l POC Base Excess (-9-1.8) simone/L O2 Sat Pulse Oximetry ABG pH (7.35-7.45) ABG pCO2 (35-46) mmHg ABG pO2 (80-95) mm/Hg ABG HCO3 (19-24) mmol/L POC ABG O2 Sat (90-95) % ABG O2 Saturation (90-95) % ABG Base Excess (-9-1.8) mEq/L Alon Test (Pos) Barometric Pressure mm/Hg Oxygen Given O2 Delivery Device POC O2 Rate POC FiO2 % EPAP IPAP Sodium 123 L (136-145) mmol/L Potassium 3.5 (3.5-5.1) mmol/L Chloride 75 L (98-107) mmol/L Carbon Dioxide 45 H* (21-32) mmol/L Anion Gap 3.0 (3-11) BUN 10 (7-18) mg/dl Creatinine 0.45 L (0.6-1.2) mg/dl Est Cr Clr Drug Dosing 201.0 ml/min Est GFR ( Amer) 127.1 Est GFR (Non-Af Amer) 109.7 BUN/Creatinine Ratio 23.3 H (10-20) Glucose 193 H (70-99) mg/dl POC Glucose 214 H (70-99) Lactate (0.4-2.0) mmol/L Calcium 9.1 (8.5-10.1) mg/dl Phosphorus (2.5-4.9) mg/dl Magnesium (1.8-2.4) mg/dl Total Bilirubin (0.2-1) mg/dl AST (15-37) U/L ALT (12-78) U/L Alkaline Phosphatase (45-117) U/L Troponin I (0-0.045) ng/ml Total Protein (6.4-8.2) gm/dl Albumin (3.4-5.0) gm/dl Globulin (2.5-4.0) gm/dl Albumin/Globulin Ratio (0.9-2) Procalcitonin < 0.05 (0-0.5) ng/ml TSH (0.300-4.500) uIu/ml Urine Color Urine Appearance (Clear) Urine pH (4.5-7.5) Ur Specific [place] (1.000-1.030) Urine Protein (Negative) Urine Glucose (UA) (Negative) Urine Ketones (Negative) Urine Blood (Negative) Urine Nitrite (Negative) Urine Bilirubin (Negative) Urine Urobilinogen (Negative) Ur Leukocyte Esterase (Negative) Urine WBC (Auto) (0-5) /hpf Urine RBC (Auto) (0-4) /hpf U Hyaline Cast (Auto) (0-5) /lpf U Epithel Cells (Auto) (0-5) /lpf Urine Bacteria (Auto) (Negative) Nasal Screen MRSA (PCR) (Negative) Influenza Type A (PCR) (Neg) Influenza Type B (PCR) (Neg) Imaging Data Attestation: I personally reviewed and interpreted this imaging study as follows: Radiologist's Impression: Chest x-ray IMPRESSION: 1. Cardiomegaly with evidence of congestive failure and interstitial edema. 2. Suspect small pleural effusions. Electronically signed by: Addison Connolly M.D. 04/02/2019 2:14 PM Dictated: 04/02/19 1413 Transcribed: 04/02/19 1413 CTA of the chest IMPRESSION: 1. Streak and motion compromised examination. 2. There is no evidence of pulmonary embolus in the main, lobar, or proximal segmental pulmonary arteries. 3. Cardiomegaly with evidence of congestive failure and interstitial edema. 4. Pleural effusions. 5. There is a 1.4 cm nodular opacity in the right lower lobe. This is likely on an inflammatory basis. A precautionary follow-up chest CT in 3-4 months time is recommended to document resolution. 6. The appearance of the liver suggests early change of cirrhosis. 7. Additional findings as above. Electronically signed by: Addison Connolly M.D. 04/02/2019 3:37 PM Dictated: 04/02/19 1531 Transcribed: 04/02/19 1531 ECG Data Attestation: I personally reviewed and interpreted this ECG as follows: Rate (beats per minute): 72 Rhythm: normal sinus Blood Pressure Blood Pressure Findings: Elevated blood pressure MDM Narrative Differential diagnosis: Acute respiratory failure secondary to COPD exacerbation, pneumonia, viral etiology, CHF exacerbation, acute MA, anemia, among others This patient is a 58-year-old female presents to the emergency department by ambulance for acute shortness of breath. On exam, she had wheezing and decreased breath sounds. Her chest x-ray is consistent with pleural effusions. The patient was felt to be a fairly high PE risk, which is why we proceeded with a CT. This is consistent with fluid overload. There are no signs of pneumonia. The patient was treated with BiPAP and nebulizer treatments in the emergency department. She is still in moderate respiratory distress with this treatment. Hospitalist and channel opener outsoles consultations were felt to be appropriate. They will evaluate the patient for further treatment. I have personally spent greater than 60 minutes of critical care time in the direct management of this patient. This includes bedside care, interpretation of diagnostic studies, and testing, discussion with consultants, patient, and family members, and other required patient management activities. This 60 minutes is in excess of all separately billable procedures. Impression & Plan Acute and chronic respiratory failure Discharge Plan Visit Data *Final* Discharge Date/Time: 04/02/19 18:34 Chief Complaint: Shortness of Breath/Dyspnea Stated Complaint: sob ED Provider: Mason Yanes ED Midlevel Provider: Karla Hill Discharge Problem: Acute and chronic respiratory failure Patient Disposition: Admitted As Inpatient Discharge Instructions Interventions: ED Discharge Assessment Last Done: 04/02/19 18:34
--- NOTE | 2019-04-02 14:15 | XRay Report ---
SINGLE VIEW CHEST CLINICAL HISTORY: Dyspnea. FINDINGS: 2 AP, portable, upright chest radiographs are compared to study dated 01/15/2019 and correla louie with chest CT dated 10/03/2017. The examination is degraded by portable technique, large body habi tus, and patient rotation. The heart is enlarged. There is pulmonary vascular congestion and intersti tial edema. Small pleural effusions are suspected. Bibasilar atelectasis is noted. No pneumothorax is seen. The skeletal structures are osteopenic. The bony thorax is grossly intact. IMPRESSION: 1. Cardiomegaly with evidence of congestive failure and interstitial edema. 2. Suspect small pleural effusions. Electronically signed by: Addison Connolly M.D. 04/02/2019 2:14 PM
[2019-04-02 14:17] LABS: BUN Creatinine Ratio 37.8 (10-20); Calcium 9.2 mg/dl (8.5-10.1); Creatinine Clr Calc Pharmacy 236.5 ml/min; Est GFR (African American) 133.2; Potassium 5.5 mmol/L (3.5-5.1)
[2019-04-02 14:22] LABS: Albumin Globulin Ratio 0.8 (0.9-2); Bilirubin,Total 0.3 mg/dl (0.2-1); Globulin 3.8 gm/dl (2.5-4.0); Total Protein 6.8 gm/dl (6.4-8.2); Troponin I 0.191 ng/ml (0-0.045)
[2019-04-02 14:23] LABS: Prothrombin Time 9.8 Seconds (9.0-12.0)
[2019-04-02 15:20] LABS: HCO3 ABG 44 mmol/L (19-24); Oxygen Saturation ABG 92.5 % (90-95); PCO2 ABG 99 mmHg (35-46); PO2 ABG 70 mm/Hg (80-95); pH ABG 7.27 (7.35-7.45)
[2019-04-02 15:24] LABS: Allen Test Pos (Pos)
[2019-04-02] MEDS ORDERED: OPTIRAY 320 125ml IV PRN (15:25)
--- NOTE | 2019-04-02 15:39 | CT Scan Report ---
CT ANGIOGRAM OF THE CHEST CLINICAL HISTORY: Cough and dyspnea. COMPARISON STUDY: Chest x-ray dated 04/02/2019. Chest CT dated 10/03/2017 and 06/20/2017. TECHNIQUE: Following the IV administration of 120 cc of Optiray 320, CT angiogram of the chest was pe rformed from the upper abdomen to the thoracic inlet utilizing the pulmonary embolus protocol. Images are reviewed in the axial, sagittal, and coronal planes. 3-D MIPS images are created and assessed. I V contrast was administered without complication. A dose lowering technique was utilized adhering to the principles of ALARA. Examination is degraded by large body habitus, and by streak artifact from the body wall abutting the CT gantry. There is also motion compromised. CT DOSE: 992.59 mGy.cm FINDINGS: Thyroid: Atrophic. Thoracic aorta: There is atherosclerotic calcification of the thoracic aorta, which is normal in deborah buster and demonstrates standard 3-vessel arch anatomy. No dissection is seen. Pulmonary vasculature: The pulmonary trunk is normal in caliber. There are no filling defects identif ied in main, lobar, or proximal segmental pulmonary branches to suggest pulmonary embolus. Evaluation of the peripheral branches is degraded by motion artifact. Heart: The heart is enlarged and without pericardial effusion. The coronary arteries are densely calc ified. Lungs and pleural spaces: Evaluation of the lung parenchyma is compromised by motion artifact. There are small pleural effusions with bibasilar consolidation. Diffuse intralobular septal thickening is n oted. There are mild perihilar opacities, likely representing interstitial edema. A 1.4 cm nodular op acity in the right lower lobe as seen on image #154. The trachea and central airways are clear. Mediastinum: There are prominent subcentimeter mediastinal lymph nodes. Analia: Clear. Axillae: There is no axillary lymphadenopathy. Upper abdomen: There is trace perihepatic ascites. A tiny hiatal hernia is noted. There is nodularity of the hepatic surface contour suggesting early change of cirrhosis. There is heterogeneous attenuat ion. Pneumobilia is noted. Skeletal structures: No lytic or blastic bony lesions are seen. IMPRESSION: 1. Streak and motion compromised examination. 2. There is no evidence of pulmonary embolus in the main, lobar, or proximal segmental pulmonary isaias leydi. 3. Cardiomegaly with evidence of congestive failure and interstitial edema. 4. Pleural effusions. 5. There is a 1.4 cm nodular opacity in the right lower lobe. This is likely on an inflammatory basis . A precautionary follow-up chest CT in 3-4 months time is recommended to document resolution. 6. The appearance of the liver suggests early change of cirrhosis. 7. Additional findings as above. Electronically signed by: Addison Connolly M.D. 04/02/2019 3:37 PM
[2019-04-02] MEDS ORDERED: FUROSEMIDE 80 MG in SYRINGE 0 ML IV ONE (15:54)
[2019-04-02 15:59] LABS: Influenza A virus by PCR Neg for Influ A (Neg); Influenza B virus by PCR Neg for Influ B (Neg)
[2019-04-02] MEDS ORDERED: FUROSEMIDE 40 MG/4 ML VIAL IV ONE (16:37)
--- NOTE | 2019-04-02 16:55 | History & Physical Report ---
Date of Service April 02, 2019 Assessment & Plan (1) CHF exacerbation: 58 y/o F Hx Morbid obesity, COPD, chronic resp failure, DM II, CAD, diastolic CHF, ABDI cirrhosis, HTN, HLD, hyponatremia, hypothyroidism, PVD, continues to smoke. Presents from [facility] with progressive SOB and moderat e respiratory distress requiring BiPAP. Initial labs are notable for hyponatremia, mild hyperkalemia and an elevated troponin. An ABG demonstrated a C02 of 99. An EKG does not support acute ischemia. A CTA did not demonstrate PEs and is consistent with pulmonary edema and BL pleural effusions. 1) Exacerbation of diastolic CHF - Provided with NTG, IV Lasix and BiPAP. She will be transferred to the ICU. 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 Catheter placed for I/O, daily weights. 2) CAD/Elevated trop. Likely due to CHF exacerbation. We will trend and cons ider echo to assess for WMAs although this may be of little utility due to her habitus. Cont ASA, statin 3) COPD - hypoxic and hypercarbic respiratory failure. Unclear if this is significantly contributing to her acute distress although it certainly can't help. We will treat with nebs, 02, steroids and antibiotics as her condition is subcritical. 4) Hyponatremia - has been as low as 127 in 2018 - has worsened. May be due to fluid overload and lack of nutrients. Less likely due to CHF which is diastolic and her cirrhosis is not advanced. SIADH or Hypothyroidism may also contribute. She is receiving Lasix and we would not want to give her salt so that if she does not improve with Lasix and fluid restriction, she would be a candidate for Tolvaptan. We should contact her PCP to determine if a diagnosis of SIADH is established as I do not see this in the record. Her urine results would not likely provide validation at present as she received a high dose of Lasix in the ER. 5) Hypothyroidism - check TSH, cont Synthroid 6) HTN, HLD - aside from use of Lasix, HTN is not currently treated. Cont Atorvastatin. 7) DM II - placed on a SS Full code is confirmed with pt. Heparin prophylaxis Total time for this admit including review of labs, meds, imaging, records - discussion with pt as possible and ER attending - inc critical care time - 48 min Present on Admission?: Yes History of Present Illness Chief Complaint: Shortness of breath - resp distress Primary Care Provider: [facility] 58 y/o F Hx Morbid obesity, COPD, chronic resp failure, DM II, CAD, diastolic CHF, ABDI cirrhosis, HTN, HLD, hyponatremia, hypothyroidism, PVD, continues to smoke. Presents from [facility] with progressive SOB and moderate respiratory distress requiring BiPAP. Initial labs are notable for hyponatremia, mild hyperkalemia and an elevated troponin. An ABG demonstrated a C02 of 99. An EKG does not support acute ischemia. A CTA did not demonstrate PEs and is consistent with pulmonary edema and BL pleural effusions. The pt is confused and lethargic. She is unable to contribute to the HPI/ROS at the time of admission. She was apparently more lucid when she first arrived and stated that she did not have CP and was a full code per the ER attending. PMH: 1) Morbid obesity - BMI 67 2) CAD - [place] and stent 2012 3) COPD 4) Chronic hypoxic and hypercarbic respiratory failure 5) DM II - poorly controlled - recent A1C > 8.3 6) Chronic diastolic CHF 7) ABDI cirrhosis 8) Hyponatremia 9) Anemia 10) HTN 11) HLD 12) Hypothyroidism 13) Eczema Surgical: 1) Hysterectomy 2) Cholecystectomy 3) Tonsillectomy and adenoidectomy Social: She apparently still smokes, although this is not clear as she needs a wheelchair for mobility and resides at [facility] Family: Could not obtain a history. Allergies Allergy/AdvReac Type Severity Reaction Status Date / Time Penicillins Allergy Intermediate RASH Verified 04/02/19 15:09 Home Medications Home Medications Medication Instructions Recorded Confirmed Type Lactobacillus acidoph-L.bulgar 1 tab PO TID 11/05/18 04/02/19 History [Lactinex] acetaminophen [Tylenol] 650 mg PO Q6 PRN MDD 3G 11/05/18 04/02/19 History albuterol sulfate [ProAir HFA] 2 puff INHALATION Q4H PRN 11/05/18 04/02/19 Hi story aspirin [Aspir-81] 81 mg PO DAILY 11/05/18 04/02/19 History atorvastatin 40 mg PO DAILY 11/05/18 04/02/19 History bisacodyl 10 mg NV DAILY PRN 11/05/18 04/02/19 History cholecalciferol (vitamin D3) 2,000 unit PO DAILY 11/05/18 04/02/19 History clopidogrel 75 mg PO DAILY 11/05/18 04/02/19 History ekiijhcanjl-vlmoprdqm-ekdjdgoy 1 inh INHALATION DAILY 11/05/18 04/02/19 History [Trelegy Ellipta] furosemide 20 mg PO DAILY 11/05/18 04/02/19 History gabapentin 100 mg PO TID 11/05/18 04/02/19 History insulin glargine 45 unit SUBCUT Q12 11/05/18 04/02/19 History insulin lispro 0 units SUBCUT UD 11/05/18 04/02/19 History insulin lispro [Humalog U-100 35 unit SUBCUT DAILY 11/05/18 04/02/19 History Insulin] ipratropium-albuterol 3 ml INHALATION Q6 PRN 11/05/18 04/02/19 History levothyroxine 200 mcg PO DAILY 11/05/18 04/02/19 History niacinamide 500 mg PO TID 11/05/18 04/02/19 History pantoprazole 20 mg PO DAILY 11/05/18 04/02/19 History potassium chloride [Klor-Con M20] 20 meq PO DAILY 11/05/18 04/02/19 History ascorbic acid (vitamin C) 500 mg PO BID 01/15/19 04/02/19 History clobetasol 1 applic TOPICAL AMPM 01/15/19 04/02/19 History insulin lispro [Humalog U-100 20 unit SUBCUT AC 01/15/19 04/02/19 History Insulin] magnesium hydroxide [Milk of 30 ml PO DIRECTED PRN 01/15/19 04/02/19 History Magnesia] multivitamin 1 tab PO DAILY 01/15/19 04/02/19 History nystatin 1 applic TOPICAL TID 01/15/19 04/02/19 History prednisone 30 mg PO DAILY 01/15/19 04/02/19 History sodium phosphates [Fleet Enema] 118 ml NV DAILY PRN 01/15/19 04/02/19 History Past Med/Surg History Medical History Coronary atherosclerosis of [place] coronary vessel (Chronic 01/05/13) " STEMI November of 2011 treated at [facility] with a PCI to the RCA" Diastolic CHF (Chronic) COPD (chronic obstructive pulmonary disease) (Chronic) Chronic respiratory failure with hypoxia (Chronic) Tobacco use disorder (Chronic) Chronic obstructive lung disease (Chronic 01/05/13) Cirrhosis of liver (Chronic) "autoimmune, 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" DM type 2 (diabetes mellitus, type 2) (Chronic) Morbid obesity with BMI of 40.0-44.9, adult (Chronic) Hypothyroidism (Chronic) Peripheral vascular disease (Chronic) Acute hyperglycemia (Inactive) Surgical History History of hysterectomy (Chronic 01/05/13) S/P tonsillectomy and adenoidectomy (Chronic) S/P cholecystectomy (Chronic) S/P coronary artery stent placement (Chronic) "11/2011 ISABEL to RCA" Family History Other Diabetes Heart disease Hypertension Social History Preferred Language: German marital status: Single Current Living Situation: [facility] current occupational status: disabled Feels Safe at Home: Yes Smoking Status: Current every day smoker Review of Systems Review of Systems: Cannot obtain Physical Exam Physical Exam: General: Morbidly obese, middle-aged F - on BiPAP, confused, lethargic Eyes: MARTINE, EOMI Head and neck: Normocephalic, atraumatic - cannot assess for JVD Chest/heart: Nontender, S1,2, RRR - faint heart sounds Lungs: Very limited exam due to moaning and habitus Abdomen: Nontender, nondistended, BS+ Neuro: Confused - follows simple commands - moves all extremities Musculoskeletal: No joint inflammation Skin: She is covered i a diffuse, erythematous, excoriated rash which is likely due to her eczema Extremities: No clubbing, cyanosis - BL edema Results & Data Vital Signs (Past 12 Hours) Vital Signs Temp Pulse Pulse Resp BP BP Pulse Ox 04/02/19 16:32 71 24 193/63 H 87 L 04/02/19 16:01 71 23 158/76 H 94 04/02/19 15:51 72 20 90 04/02/19 15:42 72 20 90 04/02/19 15:32 72 21 176/74 H 90 04/02/19 15:03 71 20 180/81 H 93 04/02/19 14:21 72 26 H 91 04/02/19 13:47 90 04/02/19 13:43 98.4 F 72 26 H 179/85 H 86 L Diagnostic Findings CTA: 1. Streak and motion compromised examination. 2. There is no evidence of pulmonary embolus in the main, lobar, or proximal segmental pulmonary arteries. 3. Cardiomegaly with evidence of congestive failure and interstitial edema. 4. Pleural effusions. 5. There is a 1.4 cm nodular opacity in the right lower lobe. This is likely on an inflammatory basis. A precautionary follow-up chest CT in 3-4 months time is recommended to document resolution. 6. The appearance of the liver suggests early change of cirrhosis. EKG: NSR, evidence of prior anterior infarct.
[2019-04-02 16:56] LABS: Appearance Urine Clear (Clear); Bacteria Urine Automated Negative (Negative); Bilirubin Urine Negative (Negative); Blood Urine Trace (Negative); Color Urine Yellow; Glucose Urine UA Negative (Negative); Ketones Urine Negative (Negative); Leukocyte Esterase Urine Negative (Negative); Nitrite Urine Negative (Negative); Protein Urine 1+ (Negative); RBC Urine Automated 0-4 /hpf (0-4); Specific Gravity Urine 1.029 (1.000-1.030); Urobilinogen Urine Negative (Negative); pH Urine 5.5 (4.5-7.5)
[2019-04-02] MEDS ORDERED: BISACODYL 10 MG SUPP PR PRN (19:07)
[2019-04-02] MEDS ORDERED: SOD PHOSPHATE/SOD BIPHOSPHATE ENEMA 132 ML BTL PR PRN (19:07)
[2019-04-02] MEDS ORDERED: ICU PROTOCOL FOR HYPERGLYCEMIA PRN ×2 (19:07→20:59)
[2019-04-02] MEDS ORDERED: LEVOFLOXACIN/D5W 500 MG/100 ML BAG IV SCH (20:00)
[2019-04-02] MEDS ORDERED: NITROGLYCERIN 2% OINTMENT 30GM TUBE EXT ONE (21:00)
[2019-04-02] MEDS: methylPREDNISolone 60 MG in SYRINGE 0 ML IV SCH (21:13)
[2019-04-02] MEDS: GABAPENTIN 100 MG CAP PO SCH (21:13)
--- NOTE | 2019-04-02 21:34 | Critical Care Consultation ---
Date of Consultation April 02, 2019 Assessment & Plan (1) Admitted to intensive care unit: Reason Critically Ill: 58-year-old female with acute on chronic hypoxic respiratory failure with hypercapnia requiring close airway monitoring. NEURO - * CAM ICU: NEGATIVE * Avoid sedation agents in the patient with CO2 narcosis. CARDIAC/VASCULAR - * Acute on chronic CHF with hypoxia: * Initially diuresed in the emergency department. * Continue with scheduled home diuretics. * Continue ASCVD medications orally as tolerated. * Positive pressure ventilatory techniques as needed. * Monitor on telemetry. RESPIRATORY - * Acute on chronic hypoxic respiratory failure with hypercapnia: * Multifactorial in the setting of CHF, COPD, and possible infiltrative changes. * Actively diuresis. * BiPAP for airway support. * Low threshold for intubation. * Trend ABGs. * Will cover with antibiotics. * Continue steroids. GI/NUTRITION - * N.p.o. will BiPAP in place. RENAL/LYTES - * Hyponatremia which appears to be acute on chronic. * Will monitor how this changes after diuresis. - * Hyde in place - Strict I&Os. ENDO - * Diabetes and chronic steroid use. * BSGs per unit protocol. ISS --> gtt per unit policy. HEME - * Stable H&H. ID - * Concerns for possible underlying infiltrative pneumonia. * Cefepime and doxycycline currently. * Will discontinue Levaquin. LINES/IV ACCESS - * PIVs x2 DVT PROPHYLAXIS - * Heparin * SCDs I have personally spent 35 minutes of critical care time in the direct manageme nt of this patient. This is a life/limb threatening event. This includes time spent evaluating patient, direct bedside care, chart review, placing orders, interpretation of diagnostic studies, discussion with consultants, patient, and family members, as well as other required patient management activities. This time is exclusive of all separately billable procedures, and teaching time and separate from and in addition to any other critical care service time. Thank you for allowing us to participate in the care of this patient. Please refer to my attending physician's documentation for any further recommendations. (2) Acute on chronic respiratory failure with hypoxia and hypercapnia: (3) CHF exacerbation: (4) Peripheral vascular disease: (5) Hypothyroidism: (6) Morbid obesity with BMI of 40.0-44.9, adult: (7) DM type 2 (diabetes mellitus, type 2): (8) Cirrhosis of liver: (9) Diastolic CHF: Supervising Physician Co-Signing Physician Notes I have personally evaluated and examined this patient. I agree with assessment and plan of Kindra Enriquez PA-C. See follow-up note for further details History of Present Illness Attending Physician: Wesley Crane MD Patient is a 58-year-old female with a significant past medical history of coron lisset artery disease status post PTCI, COPD, chronic hypoxic and hypercarbic respiratory failure, diabetes, CHF, ABDI cirrhosis, hyponatremia, amongst others who presented to the emergency department earlier today with an acute onset of shortness of breath. On evaluation in the emergency department, patient was found to be in acute on chronic hypoxemic respiratory failure with hypercarbia. CT the chest demonstrated no pulmonary emboli. She does have some pulmonary edema on imaging modalities. She received IV Lasix as well as noninvasive ventilatory support. Patient's blood gas was concerning for worsening CO2 and she was noted to have decrease in mental status. She did improve while on BiPAP. She has been admitted for acute on chronic hypoxic respiratory failure with hypercapnia. On evaluation in the ICU, the patient is awake. She is able to provide name and year. Otherwise, she offers no substantial conversation. History of present illness limited secondary to current mental status. Allergies Allergy/AdvReac Type Severity Reaction Status Date / Time Penicillins Allergy Intermediate RASH Verified 04/02/19 15:09 Home Medications Home Medications Medication Instructions Recorded Confirmed Type Lactobacillus acidoph-L.bulgar 1 tab PO TID 11/05/18 04/02/19 History [Lactinex] acetaminophen [Tylenol] 650 mg PO Q6 PRN MDD 3G 11/05/18 04/02/19 History albuterol sulfate [ProAir HFA] 2 puff INHALATION Q4H PRN 11/05/18 04/02/19 History aspirin [Aspir-81] 81 mg PO DAILY 11/05/18 04/02/19 History atorvastatin 40 mg PO DAILY 11/05/18 04/02/19 History bisacodyl 10 mg [place] DAILY PRN 11/05/18 04/02/19 History cholecalciferol (vitamin D3) 2,000 unit PO DAILY 11/05/18 04/02/19 History clopidogrel 75 mg PO DAILY 11/05/18 04/02/19 History fblolsuwblu-qbmrzyuhi-inbzgliy 1 inh INHALATION DAILY 11/05/18 04/02/19 History [Trelegy Ellipta] furosemide 20 mg PO DAILY 11/05/18 04/02/19 History gabapentin 100 mg PO TID 11/05/18 04/02/19 History insulin glargine 45 unit SUBCUT Q12 11/05/18 04/02/19 History insulin lispro 0 units SUBCUT UD 11/05/18 04/02/19 History insulin lispro [Humalog U-100 35 unit SUBCUT DAILY 11/05/18 04/02/19 History Insulin] ipratropium-albuterol 3 ml INHALATION Q6 PRN 11/05/18 04/02/19 History levothyroxine 200 mcg PO DAILY 11/05/18 04/02/19 History niacinamide 500 mg PO TID 11/05/18 04/02/19 History pantoprazole 20 mg PO DAILY 11/05/18 04/02/19 History potassium chloride [Klor-Con M20] 20 meq PO DAILY 11/05/18 04/02/19 History ascorbic acid (vitamin C) 500 mg PO BID 01/15/19 04/02/19 History clobetasol 1 applic TOPICAL AMPM 01/15/19 04/02/19 History insulin lispro [Humalog U-100 20 unit SUBCUT AC 01/15/19 04/02/19 History Insulin] magnesium hydroxide [Milk of 30 ml PO DIRECTED PRN 01/15/19 04/02/19 History Magnesia] multivitamin 1 tab PO DAILY 01/15/19 04/02/19 History nystatin 1 applic TOPICAL TID 01/15/19 04/02/19 History prednisone 30 mg PO DAILY 01/15/19 04/02/19 History sodium phosphates [Fleet Enema] 118 ml [place] DAILY PRN 01/15/19 04/02/19 History Patient History Medical History Coronary atherosclerosis of [place] coronary vessel (Chronic 01/05/13) " STEMI November of 2011 treated at [facility] with a PCI to the RCA" Diastolic CHF (Chronic) COPD (chronic obstructive pulmonary disease) (Chronic) Chronic respiratory failure with hypoxia (Chronic) Tobacco use disorder (Chronic) Chronic obstructive lung disease (Chronic 01/05/13) Cirrhosis of liver (Chronic) "autoimmune, 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" DM type 2 (diabetes mellitus, type 2) (Chronic) Morbid obesity with BMI of 40.0-44.9, adult (Chronic) Hypothyroidism (Chronic) Peripheral vascular disease (Chronic) Acute hyperglycemia (Inactive) Surgical History History of hysterectomy (Chronic 01/05/13) S/P tonsillectomy and adenoidectomy (Chronic) S/P cholecystectomy (Chronic) S/P coronary artery stent placement (Chronic) "11/2011 ISABEL to RCA" Family History Other Diabetes Heart disease Hypertension Social History Preferred Language: [place] [employer] 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 GENERAL - 58-year-old female appearing older than her stated age who is in no acute distress. SKIN - Diffuse areas of scaring, macular areas throughout the body. HEAD - NC/AT. EYES - PERRL with EOMI bilaterally. Sclera anicteric. EARS - No deformities of external structures noted on gross examination bilate rally. NOSE - Midline and without cyanosis. MOUTH/OROPHARYNX - BiPAP in place. Without perioral cyanosis. Buccal mucosa pink and moist and without leukoplakia. NECK - Neck with FROM. Supple to palpation. No nuchal rigidity. LUNGS - Chest wall symmetric without accessory muscle use, intercostals retractions, or central cyanosis. Normal vesicular breath sounds CTA B/L. No wheezes, rales, or rhonchi appreciated. CARDIAC - RRR with S1/S2. No murmur, rubs, or gallops appreciated. ABDOMEN - Abdominal contour obese without pulsations or visible masses. BS normoactive all four quadrants. No tenderness, palpable masses, hepatosplenomegaly, or ascites noted. EXTREMITIES - No clubbing or peripheral cyanosis. No pretibial edema present. +3/5 radial and dorsalis pedis pulses palpated throughout. +5/5 strength noted in UE/LE bilaterally. NEUROLOGIC - Cranial nerves II through XII grossly intact. Sensory intact to light touch throughout. PSYCH - A&O to person, place and year. Not sure of date. Results & Data Vital Signs (Past 12 Hours) Vital Signs Temp Pulse Pulse Resp BP BP Pulse Ox 04/02/19 19:39 36.8 C 70 24 186/86 H 95 04/02/19 18:45 82 28 H 95 04/02/19 18:01 69 21 155/63 H 96 04/02/19 17:31 69 20 147/76 H 93 04/02/19 17:01 79 17 146/69 H 04/02/19 16:32 71 24 193/63 H 87 L 04/02/19 16:01 71 23 158/76 H 94 04/02/19 15:51 72 20 90 04/02/19 15:42 72 20 90 04/02/19 15:32 72 21 176/74 H 90 04/02/19 15:03 71 20 180/81 H 93 04/02/19 14:21 72 26 H 91 04/02/19 13:47 90 04/02/19 13:43 36.9 C 72 26 H 179/85 H 86 L
[2019-04-02] MEDS: CEFEPIME 2,000 MG in SYRINGE 7.5 ML IV SCH (21:44)
[2019-04-02] MEDS: NYSTATIN POWDER 15GM BTL EXT SCH (21:44)
[2019-04-02] MEDS: HEPARIN SOD 5,000 UNIT/0.5 ML VIAL SQ SCH (21:45)
[2019-04-02] MEDS ORDERED: PNEUMOCOCCAL POLYSACCHARIDES 25 MCG/0.5 ML VIAL/SYR IM ONE (22:00)
[2019-04-02] MEDS ORDERED: PNEUMOCOCCAL ADMINISTRATION CHARGE ONE (22:00)
[2019-04-02] MEDS: INSULIN ASPART 100 UNITS/ML 3 ML PEN SC SCH (23:25)
[2019-04-02] MEDS: DOXYCYCLINE HYCLATE 100 MG in DEXTROSE 5% 100 ML IV SCH (23:25)
[2019-04-03] MEDS: methylPREDNISolone 60 MG in SYRINGE 0 ML IV SCH ×2 (01:53→08:36)
[2019-04-03 04:57] LABS: Basophils # (auto) 0.01 K/uL (0-0.2); Basophils % (auto) 0.2 %; Eosinophils # (auto) 0.01 K/uL (0-0.5); Eosinophils % (auto) 0.2 %; Hematocrit (blood only) 35.4 % (37-47); Hemoglobin 11.6 g/dL (12.0-16.0); Immature Granulocytes # (auto) 0.06 K/uL (0.00-0.02); Immature Granulocytes % (auto) 1.2 %; Lymphocytes # (auto) 0.65 K/uL (1.2-3.4); Lymphocytes % (auto) 12.5 %; Mean Corpuscular Hgb Conc 32.8 g/dL (32-36); Mean Corpuscular Volume 94.7 fL (80-100); Mean Platelet Volume 8.3 fL (7.4-10.4); Monocytes # (auto) 0.11 K/uL (0.11-0.59); Monocytes % (auto) 2.1 %; Neutrophils # (auto) 4.35 K/uL (1.4-6.5); Neutrophils % (auto) 83.8 %; Platelet Count 169 K/uL (130-400); RDW Coefficient of Variation 12.9 % (11.5-14.5); RDW Standard Deviation 44.9 fL (36.4-46.3); Red Blood Count 3.74 M/uL (4.2-5.4); White Blood Count 5.19 K/uL (4.8-10.8)
[2019-04-03 05:38] LABS: BUN Creatinine Ratio 32.6 (10-20); Creatinine Clr Calc Pharmacy 314.4 ml/min; Est GFR (African American) 146.9; Est GFR (Non-African American) 126.7; Magnesium 1.6 mg/dl (1.8-2.4); Phosphorus 3.2 mg/dl (2.5-4.9); Potassium 4.1 mmol/L (3.5-5.1)
[2019-04-03] MEDS: CEFEPIME 2,000 MG in SYRINGE 7.5 ML IV SCH (05:57)
[2019-04-03] MEDS: HEPARIN SOD 5,000 UNIT/0.5 ML VIAL SQ SCH (05:57)
[2019-04-03] MEDS: INSULIN ASPART 100 UNITS/ML 3 ML PEN SC SCH ×4 (05:58→20:31)
[2019-04-03] MEDS: LEVOTHYROXINE SODIUM 200 MCG TABLET PO SCH (05:58)
[2019-04-03] MEDS: FUROSEMIDE 40 MG in SYRINGE 0 ML IV SCH ×2 (06:25→11:36)
--- NOTE | 2019-04-03 07:20 | XRay Report ---
XR chest 1V portable CLINICAL HISTORY: f/u dyspnea COMPARISON STUDY: 04/02/2019 FINDINGS: Moderate cardiomegaly. Prominent pulmonary vasculature. No focal infiltrate. IMPRESSION: Cardiomegaly. Pulmonary vascular congestion. The above report was generated using voice recognition software. It may contain grammatical, syntax or spelling errors. Electronically signed by: Harvey Blevins M.D. 04/03/2019 7:19 AM
[2019-04-03] MEDS ORDERED: PERFLUTREN LIPID MICROSPHERE (DEFINITY) IV ONE (07:59)
[2019-04-03] MEDS ORDERED: MAGNESIUM SULFATE / D5W 1 GM/100 ML BAG IV STA (08:17)
[2019-04-03] MEDS: MAGNESIUM SULFATE / D5W 1 GM/100 ML BAG IV SCH ×4 (08:35→16:26)
[2019-04-03] MEDS: NYSTATIN POWDER 15GM BTL EXT SCH ×3 (08:35→20:31)
[2019-04-03] MEDS: CLOPIDOGREL BISULFATE 75 MG TAB PO SCH (08:36)
[2019-04-03] MEDS: ASPIRIN 81 MG ECTAB PO SCH (08:36)
[2019-04-03] MEDS: PANTOprazole 40 MG TAB PO SCH (08:36)
[2019-04-03] MEDS: ATORVASTATIN 40 MG TAB PO SCH (08:36)
[2019-04-03] MEDS: GABAPENTIN 100 MG CAP PO SCH ×3 (08:36→20:31)
[2019-04-03] MEDS ORDERED: DEXTROSE 50% 50 ML SYRINGE IV PRN (08:45)
[2019-04-03] MEDS ORDERED: INSULIN GLARGINE SOLOSTAR 100 UNITS/ML 3 ML PEN SC SCH (08:45)
[2019-04-03] MEDS ORDERED: GLUCOSE 10 TABS/TUBE PO PRN (08:45)
[2019-04-03] MEDS ORDERED: GLUCOSE 40% GEL 15 GM TUBE PO PRN (08:45)
[2019-04-03] MEDS ORDERED: GLUCAGON FOR INJ 1 MG VIAL IM PRN (08:45)
[2019-04-03 09:06] LABS: iSTAT Allen Test Pass; iSTAT Arterial Blood Gas HCO3 51 meg/L (19-24); iSTAT Arterial Blood Gas pCO2 78 mmHg (35-46); iSTAT Arterial Blood Gas pH 7.42 (7.35-7.45); iSTAT Carbon Dioxide < 5 mEq/l (24-31); iSTAT FiO2 35 %; iSTAT Site L Radial
[2019-04-03] MEDS: INSULIN GLARGINE SOLOSTAR 100 UNITS/ML 3 ML PEN SC SCH ×2 (09:17→20:30)
--- NOTE | 2019-04-03 12:58 | Critical Care Progress Note ---
Date of Service April 03, 2019 Assessment & Plan (1) Admitted to intensive care unit: NEURO - CAM ICU: NEGATIVE CARDIAC/VASCULAR - Acute on chronic CHF with hypoxia: In the setting of fluid accumulation, patient responded well to diuresis with 8 L of output Continue aspirin, Clopidogrel, atorvastatin 40 -Lasix 20 daily -Improved today Echo shows LVEF 55 to 60% with grade 2 diastolic dysfunction RESPIRATORY - Acute on chronic hypoxic respiratory failure with hypercapnia, multifactorial -Improved with Lasix 40 mg treatments as above Prednisone 50 mg daily Continue BiPAP BiPAP for airway support. -ABG improved with normalization of acidosis today Prednisone taper (50 mg x 3 days, 40 mg x 3 days, then 30 mg daily) GI/NUTRITION - Carb consistent diabetic diet RENAL/LYTES - Hyponatremia which appears to be acute on chronic. Replete electrolytes as needed - Hyde in place - Strict I&Os. ENDO - Diabetes and chronic steroid use. BSGs per unit protocol. ISS --> gtt per unit policy. HEME - Stable H&H. ID - Respiratory status improved, afebrile without leukocytosis Chest x-ray shows Cardiomegaly with pulmonary vascular congestion, no consolidation Cefepime discontinued LINES/IV ACCESS - PIVs x2 DVT PROPHYLAXIS - Heparin SCDs (2) Acute on chronic respiratory failure with hypoxia and hypercapnia: (3) CHF exacerbation: (4) Peripheral vascular disease: (5) Hypothyroidism: (6) Morbid obesity with BMI of 40.0-44.9, adult: (7) DM type 2 (diabetes mellitus, type 2): (8) Cirrhosis of liver: (9) Diastolic CHF: Supervising Physician Co-Signing Physician Notes Reason Critically Ill: 58-year-old female with acute on chronic hypoxic respiratory failure with hypercapnia requiring close airway monitoring. NEURO - * CAM ICU: NEGATIVE * Avoid sedation agents in the patient with CO2 narcosis. CARDIAC/VASCULAR - * Acute on chronic CHF with hypoxia: * 8 L negative * Continue with scheduled home diuretics. * Continue ASCVD medications orally as tolerated. * Positive pressure ventilatory techniques as needed. * Monitor on telemetry. RESPIRATORY - * Acute on chronic hypoxic respiratory failure with hypercapnia: * Multifactorial in the setting of CHF, COPD, and possible infiltrative changes. * Actively diuresis. * BiPAP for airway support.On home settings * Discontinue cefepime, continue doxycycline will check procalcitonin tomorrow morning * Increasing prednisone to 50 x 3 days then 40 x 3 days then back to home dosing of 30Milligrams GI/NUTRITION - * Type II diabetic diet with 1800 mL fluid restriction RENAL/LYTES - * Hyponatremia which appears to be acute on chronic. * Will monitor how this changes after diuresis. - * Hyde in place - Strict I&Os. ENDO - * Diabetes and chronic steroid use. * BSGs per unit protocol. ISS --> gtt per unit policy. HEME - * Stable H&H. ID - * Concerns for possible underlying infiltrative pneumonia. * doxycycline currently. LINES/IV ACCESS - * PIVs x2 DVT PROPHYLAXIS - * Heparin 7500 3 times daily * SCDs Stable for downgrade out of the ICU Subjective Dilia reports she feels improved from yesterday. She continues to have shortness of breath and some chest pain, but feels she is able to answer questions better. Feels that her breathing is improved but not back to normal. She does not express any questions or concerns at time of visit. Denies fever chills sweats. She really reports she feels great today. She denies any new symptoms. She is not having any chest pain, chest pressure or shortness of breath. She has no questions or concerns. Review of Systems Review of Systems: Constitutional: Denies fever, chills, sweats Eyes: Denies double vision, vision change, eye pain Cardiovascular: Endorses achiness in her chest and flank, denies, chest pressure, palpitations, swelling Respiratory: Endorses continued shortness of breath, improved from yesterday. Gastrointestinal: Denies abdominal pain, nausea, vomiting, Musculoskeletal: Denies muscle aches/pain, joint aches/pain but endorses fatigue Integumentary:Denies new rash, lesions, bruising. Endorses diffuse whole body rash unchanged. Neurological: Denies headache, numbness, tingling, focal weakness Physical Exam Physical Exam: General: A&Ox3. NAD. Cooperative. Answers questions appropriately Skin: Diffuse excoriation, macular lesions. No bullae appreciated. No areas of warmth/exudate/purulent discharge HEENT: Atraumatic, normocephalic. Pulm: Diminished air movement but grossly. CTAB A&P. -wheezes, -rales, -rhonchi. Symmetrical chest rise. No increase work of breathing. No respiratory distress. Cardiac: RRR, -rg. Radial pulses intact and symmetrical. Abdominal: Obese, nontender, nondistended, soft. BS present. Results & Data Vital Signs (Past 12 Hours) Vital Signs Temp Pulse Pulse Pulse Resp BP BP 04/03/19 06:00 69 20 150/58 H 04/03/19 05:00 68 23 159/54 H 04/03/19 04:10 70 25 H 04/03/19 04:00 36.5 C 67 22 145/62 H 04/03/19 03:00 68 19 164/61 H 04/03/19 02:00 69 20 143/60 H 04/03/19 01:00 71 20 131/49 L 04/03/19 00:44 76 24 04/03/19 00:00 36.8 C 74 24 157/59 H 04/02/19 23:00 72 21 154/68 H 04/02/19 22:34 76 20 04/02/19 22:00 73 24 144/68 H 04/02/19 21:00 70 25 H 154/51 H 04/02/19 20:59 73 04/02/19 20:00 71 24 170/56 H 04/02/19 19:39 36.8 C 70 24 186/86 H 04/02/19 18:45 82 28 H Pulse Ox Pulse Ox 04/03/19 06:00 94 04/03/19 05:00 96 04/03/19 04:10 96 04/03/19 04:00 96 04/03/19 03:00 96 04/03/19 02:00 98 04/03/19 01:00 93 04/03/19 00:44 95 04/03/19 00:00 94 93 04/02/19 23:00 95 04/02/19 22:34 92 04/02/19 22:00 93 04/02/19 21:00 91 04/02/19 20:59 04/02/19 20:00 92 04/02/19 19:39 95 04/02/19 18:45 95 Resident Activity Tracking Resident Involvement: Resident Care Provided Care Provided: Adult Hospital Medicine
[2019-04-03 14:15] LABS: BUN Creatinine Ratio 23.3 (10-20); Calcium 9.1 mg/dl (8.5-10.1); Est GFR (African American) 127.1; Est GFR (Non-African American) 109.7; Potassium 3.5 mmol/L (3.5-5.1)
[2019-04-03] MEDS: DOXYCYCLINE HYCLATE 100 MG in DEXTROSE 5% 100 ML IV SCH (14:31)
[2019-04-03] MEDS: HEPARIN SODIUM (PORCINE) 7,500 UNITS in SYRINGE 0 ML SQ SCH ×2 (14:32→20:28)
[2019-04-03 15:30] LABS: iSTAT Arterial Blood Gas HCO3 48 meg/L (19-24); iSTAT Arterial Blood Gas pCO2 97 mmHg (35-46); iSTAT Carbon Dioxide > 50 mEq/l (24-31)
[2019-04-03 15:31] LABS: Patient Temperature 36.8; iSTAT Allen Test Acceptable; iSTAT FiO2 35 %; iSTAT Sample Type Arterial; iSTAT Site L Radial
[2019-04-03 15:32] LABS: iSTAT SpO2 96
--- NOTE | 2019-04-03 15:44 | Palliative Care Consultation ---
Date of Consultation April 03, 2019 Assessment & Plan (1) Goals of care, counseling/discussion: Patient seen and examined on the second floor after transfer out of the ICU. No family or friends at bedside. Patient is awake alert and oriented x4- she is able to participate in CODE STATUS as well as goals of care discussion and is able to make her own medical decisions. Patient is a 58-year-old female with acute on chronic respiratory failure, diastolic CHF, CAD/ID-2011, COPD, current smoker-down to 1-1/2 packs/day from 4 packs/day,ABDI cirrhosis, diabetes, obesity-BMI greater than 40, hypothyroid-TSH within normal limits on admission, PVD, obesity hypoventilation syndrome-on O2 during the daytime with BiPAP nightly who presented to the emergency room on 04/02 for acute increased shortness of breath. Patient sats were 86% on 2 L O2-she was placed on oxygen mask at 4 L-sats improved to 90%, CO2 was 99 on ABG-patient was placed on BiPAP and transferred to the ICU. Patient was afebrile, no URI symptoms. Patient had a CTA which was negative for PE, chest x-ray did show pulmonary edema-patient was diuresed for 8 L. Patient reports she ate "a bunch of pickles"-this may have caused the fluid retention that led to her acute respiratory distress. Discussed CODE STATUS in depth as well as goals of care-patient stated she would want to be a full code, she would want to be kept alive even if it meant a trach and being ventilator dependent. Patient stated she would want her boyfriend, Tim Capone, to make medical decisions for her if she was not unable to. Patient has 2 grown children in their 30s-1 lives locally, and 1 lives in [place]. Patient does not have any paperwork stating she would want her boyfriend to make decisions-placed a consult with patient sales representative girls[employer] to assist with this. -CODE STATUS/goals of care discussion-patient would want to be a full code, p atient would even accept trach and being vent dependent. Patient's goal is to return to her prior baseline and return to [facility] -Acute on chronic respiratory failure-patient is O2 dependent with BiPAP nightly-increase fluid retention lead to her current symptoms-after eating pickles -CHF exacerbation-due to dietary indiscretion-patient diuresed for 8 L, still has pitting edema, will likely need further diuresis. Patient states her breathing is back to her prior baseline -Obesity-BMI greater than 40-weight loss recommended -Current tobacco use-patient is slowly cutting down-now down to 1-1/2 packs/day. Thank you for this consult-will continue to follow peripherally and be available to assist with medical decision making if needed. (2) Acute on chronic respiratory failure with hypoxia and hypercapnia: (3) CHF exacerbation: (4) Morbid obesity with BMI of 40.0-44.9, adult: (5) Tobacco use disorder: History of Present Illness Reason for Consultation: Address CODE STATUS, discussed goals of care Requesting Physician: Dr Eugene Attending Physician: Diann Teixeira MD History of Present Illness Patient seen and examined on the second floor after transfer out of the ICU. No family or friends at bedside. Patient is awake alert and oriented x4-she is able to participate in CODE STATUS as well as goals of care discussion and is able to make her own medical decisions. Patient is a 58-year-old female with acute on chronic respiratory failure, diastolic CHF, CAD/ID-2011, COPD, current smoker-down to 1-1/2 packs/day from 4 packs/day,ABDI cirrhosis, diabetes, obesity-BMI greater than 40, hypothyroid-TSH within normal limits on admission, PVD, obesity hypoventilation syndrome-on O2 during the daytime with BiPAP nightly who presented to the emergency room on 04/02 for acute increased shortness of breath. Patient sats were 86% on 2 L O2-she was placed on oxygen mask at 4 L-sats improved to 90%, CO2 was 99 on ABG-patient was placed on BiPAP and transferred to the ICU. Patient was afebrile, no URI symptoms. Patient had a CTA which was negative for PE, chest x-ray did show pulmonary edema-patient was diuresed for 8 L. Patient reports she ate "a bunch of pickles"-this may have caused the fluid retention that led to her acute respiratory distress. Discussed CODE STATUS in depth as well as goals of care-patient stated she would want to be a full code, she would want to be kept alive even if it meant a trach and being ventilator dependent. Patient stated she would want her boyfriend, Tim Capone, to make medical decisions for her if she was not unable to. Patient has 2 grown children in their 30s-1 lives locally, and 1 lives in [place]. Patient does not have any paperwork stating she would want her boyfriend to make decisions-placed a consult with patient sales representative girls[employer] to assist with this. Allergies Allergy/AdvReac Type Severity Reaction Status Date / Time Penicillins Allergy Intermediate RASH Verified 04/02/19 15:09 Home Medications Home Medications Medication Instructions Recorded Confirmed Type Lactobacillus acidoph-L.bulgar 1 tab PO TID 11/05/18 04/02/19 History [Lactinex] acetaminophen [Tylenol] 650 mg PO Q6 PRN MDD 3G 11/05/18 04/02/19 History albuterol sulfate [ProAir HFA] 2 puff INHALATION Q4H PRN 11/05/18 04/02/19 History aspirin [Aspir-81] 81 mg PO DAILY 11/05/18 04/02/19 History atorvastatin 40 mg PO DAILY 11/05/18 04/02/19 History bisacodyl 10 mg NE DAILY PRN 11/05/18 04/02/19 History cholecalciferol (vitamin D3) 2,000 unit PO DAILY 11/05/18 04/02/19 History clopidogrel 75 mg PO DAILY 11/05/18 04/02/19 History fywdbedzkwg-vrakirhkc-gddrhnqc 1 inh INHALATION DAILY 11/05/18 04/02/19 History [Trelegy Ellipta] furosemide 20 mg PO DAILY 11/05/18 04/02/19 History gabapentin 100 mg PO TID 11/05/18 04/02/19 History insulin glargine 45 unit SUBCUT Q12 11/05/18 04/02/19 History insulin lispro 0 units SUBCUT UD 11/05/18 04/02/19 History insulin lispro [Humalog U-100 35 unit SUBCUT DAILY 11/05/18 04/02/19 History Insulin] ipratropium-albuterol 3 ml INHALATION Q6 PRN 11/05/18 04/02/19 History levothyroxine 200 mcg PO DAILY 11/05/18 04/02/19 History niacinamide 500 mg PO TID 11/05/18 04/02/19 History pantoprazole 20 mg PO DAILY 11/05/18 04/02/19 History potassium chloride [Klor-Con M20] 20 meq PO DAILY 11/05/18 04/02/19 History ascorbic acid (vitamin C) 500 mg PO BID 01/15/19 04/02/19 History clobetasol 1 applic TOPICAL AMPM 01/15/19 04/02/19 History insulin lispro [Humalog U-100 20 unit SUBCUT AC 01/15/19 04/02/19 History Insulin] magnesium hydroxide [Milk of 30 ml PO DIRECTED PRN 01/15/19 04/02/19 History Magnesia] multivitamin 1 tab PO DAILY 01/15/19 04/02/19 History nystatin 1 applic TOPICAL TID 01/15/19 04/02/19 History prednisone 30 mg PO DAILY 01/15/19 04/02/19 History sodium phosphates [Fleet Enema] 118 ml NE DAILY PRN 01/15/19 04/02/19 History Patient History Medical History Coronary atherosclerosis of [place] coronary vessel (Chronic 01/05/13) " STEMI November of [address] 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" DM type 2 (diabetes mellitus, type 2) (Chronic) Morbid obesity with BMI of 40.0-44.9, adult (Chronic) Hypothyroidism (Chronic) Peripheral vascular disease (Chronic) Acute hyperglycemia (Inactive) Surgical History History of hysterectomy (Chronic 01/05/13) S/P tonsillectomy and adenoidectomy (Chronic) S/P cholecystectomy (Chronic) S/P coronary artery stent placement (Chronic) "11/2011 ISABEL to RCA" Family History Other Diabetes Heart disease Hypertension Social History Preferred Language: Pan[place]ian Physician Practice Consultant Required: No Beliefs That Will Affect Care: None marital status: Single Current Living Situation: Personal Care Facility current occupational status: disabled Feels Safe at Home: Yes Smoking Status: Current every day smoker Tobacco Cessation Education Requested by Patient: No Review of Systems Review of Systems: Patient denies fever, chills, chest pain, GI/ symptoms Positive for increased shortness of breath-improved Physical Exam Physical Exam: PE: Morbidly obese female, with mild shortness of breath on O2- states she is at her baseline respiratory status HEENT: EOMI, hearing within normal limits Respirations: Slightly labored, on O2, clear anteriorly, decreased at bases CV: Regular rate, pitting edema to the thighs bilaterally, upper extremity edema present Abdomen: Obese, soft, mild tenderness left lower quadrant-patient reports mild constipation Extremities: 2-3+ pitting edema to the level of the thighs Neuro: Alert and oriented x4 Psych: Appropriate Results & Data Vital Signs (Past 12 Hours) Vital Signs Temp Pulse Pulse Resp BP BP Pulse Ox 04/03/19 12:00 98.2 F 70 22 93 04/03/19 11:01 73 24 163/73 H 91 04/03/19 11:00 98.4 F 70 74 22 163/73 H 91 04/03/19 10:00 71 21 151/70 H 90 04/03/19 09:40 73 25 H 151/67 H 90 04/03/19 09:01 71 19 151/67 H 94 04/03/19 09:00 71 23 93 04/03/19 08:01 67 21 149/78 H 94 04/03/19 08:00 97.5 F L 70 68 26 H 149/78 H 92 04/03/19 07:02 67 17 117/60 95 04/03/19 07:00 67 29 H 92 04/03/19 06:00 69 20 150/58 H 94 04/03/19 05:00 68 23 159/54 H 96 04/03/19 04:10 70 25 H 96 04/03/19 04:00 97.7 F 67 22 145/62 H 96 Pulse Ox 04/03/19 12:00 93 04/03/19 11:01 04/03/19 11:00 04/03/19 10:00 04/03/19 09:40 04/03/19 09:01 04/03/19 09:00 04/03/19 08:01 04/03/19 08:00 93 04/03/19 07:02 04/03/19 07:00 04/03/19 06:00 04/03/19 05:00 04/03/19 04:10 04/03/19 04:00 Time Spent Attending Total time spent 70 minutes with greater than 50% of the time spent at bedside discussing patient's CODE STATUS as well as goals of care.
[2019-04-03] MEDS: MAGNESIUM OXIDE 400 MG TAB PO SCH (20:30)
[2019-04-03] MEDS ORDERED: MAGNESIUM OXIDE 400 MG TAB PO SCH (21:00)
[2019-04-03] MEDS: FUROSEMIDE 20 MG in SYRINGE 0 ML IV SCH (21:51)
--- NOTE | 2019-04-03 22:46 | Hospitalist Progress Note ---
Date of Service April 03, 2019 Assessment & Plan (1) CHF exacerbation: This patient is a 58 y/o female with a history of morbid obesity, COPD, current smoker, chronic hypoxic and hypercapnic resp failure, GEETHA and obesity hypoventilation syndrome on BiPAP, DM II, CAD, chronic diastolic CHF, autoimmune cirrhosis, HTN, HLD, hyponatremia, hypothyroidism, PVD who presents from [facility] with progressive SOB and moderate respiratory distress requiring BiPAP. Initial labs are notable for hyponatremia, mild hyperkalemia and an elevated troponin. An initial ABG demonstrated pH 7.27/PaCO2 99/PaO2 70. An EKG does not support acute ischemia. A CTA did not demonstrate PEs and is consistent wi th pulmonary edema and BL pleural effusions along with a right lower lobe 1.4 cm nodular opacity possibly inflammatory. She has been afebrile. Acute on chronic diastolic CHF -she was initially provided with NTG, IV Lasix and BiPAP and admitted to the ICU. She has diuresed 8 L net negative overnight and is significantly improved with her respiratory status. She still has significant peripheral edema on examination but is quite difficult to tell due to morbid obesity/body habitus Echocardiogram here with grade 2 diastolic dysfunction, preserved EF -Continue IV diuresis with Lasix 20 mg IV every 12 -Continue Hyde for accurate I's and O's -Strict I's and O's, daily weights, low-sodium diet (2) Acute on chronic respiratory failure with hypoxia and hypercapnia: Secondary to acute CHF and COPD exacerbation as above-improved Repeat ABG now with pH 7.42/PaCO2 70 which is likely her baseline -Treating with diuresis, supplemental O2, BiPAP (3) Coronary atherosclerosis of [place] coronary vessel: With mildly elevated trop here at 0.19/0.47/0.16 consistent with myocardial demand ischemia in the setting of CHF exacerbation. Echocardiogram showed no WMAs She has known history of CAD status post PTCI in the past ECG here without ischemic changes -Cont ASA, Plavix, statin -Notably not on a beta-phuong possibly due to low resting heart rate (4) COPD (chronic obstructive pulmonary disease): With acute on chronic hypoxic and hypercarbic respiratory failure as above. Unclear if this is significantly contributing to her acute distress although it certainly can't help. 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 Appears compensated at this time (7) DM type 2 (diabetes mellitus, type 2): Hemoglobin A1c 8.3% in 01/2018-uncontrolled Is on basal bolus insulin both here and at home -With hyperglycemia here secondary corticosteroids -Increase Lantus to 50 units twice daily and tighten sliding scale (8) Hypothyroidism: TSH is normal -Continue home levothyroxine (9) GEETHA treated with BiPAP: Is supposed to be using BiPAP 12/5 nightly as per outpatient pulmonology/sleep medicine notes-apparently she is quite noncompliant with this as an outpatient -We will order BiPAP for here at bedtime (10) Bullous pemphigoid: This was diagnosed approximately 2 years ago but apparently she was hospitalized at [facility] in [place] in December 2018 after being transferred from our ER down there for an acute flare with diffuse bullae. She remains on prednisone 30 mg daily, niacinamide 500 mill grams p.o. 3 times daily -We will continue these medications here (revert back to p.o. prednisone after IV steroid is completed) (11) Pulmonary nodule: Right lower lobe 1.4 cm nodular opacity seen on CT of the chest She is a current smoker and is at high risk for lung cancer -Requires follow-up in 3 months to ensure resolution (12) Hypomagnesemia: Magnesium low today -Replace -Follow magnesium level in the morning (13) Hyponatremia: Her sodium has been as low as 127 in 2018 - has worsened. Is likely due to fluid overload in the setting of CHF. Sodium is 122 on admission is now slightly improved to 123 Receiving IV loop diuretics and therefore no value in obtaining a fractional excretion of sodium at this time -Follow BMP in the morning -Continue diuresis -If not improving, consider consulting nephrology (14) Elevated troponin: Myocardial demand ischemia as above (15) DVT prophylaxis: Heparin SQ Disposition-transfer to medical floor with telemetry out of the ICU as is much improved Subjective Patient reports feeling much improved with her breathing, less short of breath. She has diuresed a tremendous amount. I discussed the case with the batch mixing truck driver. I reviewed her scanned in records from previous. When I asked the patient about the rash all of her body, she told me she got the rash from eating a jar of pickles at the hospital. I discussed her case also with palliative medicine. Patient denies any other symptoms at this time. Review of Systems Review of Systems: All systems reviewed & are unremarkable except as noted in HPI & below Physical Exam Constitutional: + morbidly obese; no acute distress Eyes: PERRL, conjunctivae normal, anicteric sclerae Neck: trachea midline, no thyromegaly Respiratory: normal respiratory effort Auscultation: + diminished lung sounds (Diffusely) and + wheezes Cardiovascular: Rate/Rhythm: regular rate and regular rhythm Extremities: + edema (2+ lower extremity edema to the thighs) Gastrointestinal (Abdomen): normal bowel sounds, soft, nontender, no hepatosplenomegaly Musculoskeletal: Extremities: no cyanosis and no clubbing Skin: + rash (Diffuse erythematous macular rash with bullae and excoriations on face trunk, arms and legs) Neurologic: moves all extremities and awake; no focal motor deficits Psychiatric: Orientation: alert, oriented to person, oriented to place and cooperative Genitourinary: normal external appearance (Hyde catheter in place draining clear yellow urine) Results & Data Vital Signs (Past 12 Hours) Vital Signs Temp Pulse Pulse Pulse Resp BP BP 04/03/19 21:50 65 131/53 L 04/03/19 19:00 36.6 C 68 22 113/55 L 04/03/19 15:57 36.8 C 67 22 103/57 L 04/03/19 15:44 68 04/03/19 12:00 36.8 C 70 22 04/03/19 11:01 73 24 163/73 H 04/03/19 11:00 36.9 C 70 74 22 163/73 H Pulse Ox Pulse Ox 04/03/19 21:50 04/03/19 19:00 94 04/03/19 15:57 95 04/03/19 15:44 04/03/19 12:00 93 93 04/03/19 11:01 91 04/03/19 11:00 91 Laboratory Results 04/03/19 04/03/19 04/03/19 Range/Units 20:24 16:47 13:17 WBC (4.8-10.8) K/uL RBC (4.2-5.4) M/uL Hgb (12.0-16.0) g/dL Hct (37-47) % MCV (80-100) fL MCH (25-34) pg MCHC (32-36) g/dL RDW Std Deviation (36.4-46.3) fL RDW Coeff of Ministerio (11.5-14.5) % Plt Count (130-400) K/uL MPV (7.4-10.4) fL Immature Gran % (Auto) % Neut % (Auto) % Lymph % (Auto) % [place] % (Auto) % Eos % (Auto) % Baso % (Auto) % Immature Gran # (Auto) (0.00-0.02) K/uL Neut # (Auto) (1.4-6.5) K/uL Lymph # (Auto) (1.2-3.4) K/uL [place] # (Auto) (0.11-0.59) K/uL Eos # (Auto) (0-0.5) K/uL Baso # (Auto) (0-0.2) K/uL Specimen Type Sample Site Patient Temperature POC pH (7.35-7.45) POC pCO2 (35-46) mmHg POC pO2 (80-95) mmHg POC HCO3 (19-24) simone/L POC Total CO2 (24-31) mEq/l POC Base Excess (-9-1.8) simone/L O2 Sat Pulse Oximetry POC ABG O2 Sat (90-95) % Alon Test O2 Delivery Device POC O2 Rate POC FiO2 % EPAP IPAP Sodium 123 L (136-145) mmol/L Potassium 3.5 (3.5-5.1) mmol/L Chloride 75 L (98-107) mmol/L Carbon Dioxide 45 H* (21-32) mmol/L Anion Gap 3.0 (3-11) BUN 10 (7-18) mg/dl Creatinine 0.45 L (0.6-1.2) mg/dl Est Cr Clr Drug Dosing 201.0 ml/min Est GFR ( Amer) 127.1 Est GFR (Non-Af Amer) 109.7 BUN/Creatinine Ratio 23.3 H (10-20) Glucose 193 H (70-99) mg/dl POC Glucose 224 H 265 H (70-99) Calcium 9.1 (8.5-10.1) mg/dl Phosphorus (2.5-4.9) mg/dl Magnesium (1.8-2.4) mg/dl Troponin I (0-0.045) ng/ml Procalcitonin (0-0.5) ng/ml 04/03/19 04/03/19 04/03/19 Range/Units 13:17 10:59 08:52 WBC (4.8-10.8) K/uL RBC (4.2-5.4) M/uL Hgb (12.0-16.0) g/dL Hct (37-47) % MCV (80-100) fL MCH (25-34) pg MCHC (32-36) g/dL RDW Std Deviation (36.4-46.3) fL RDW Coeff of Ministerio (11.5-14.5) % Plt Count (130-400) K/uL MPV (7.4-10.4) fL Immature Gran % (Auto) % Neut % (Auto) % Lymph % (Auto) % [place] % (Auto) % Eos % (Auto) % Baso % (Auto) % Immature Gran # (Auto) (0.00-0.02) K/uL Neut # (Auto) (1.4-6.5) K/uL Lymph # (Auto) (1.2-3.4) K/uL [place] # (Auto) (0.11-0.59) K/uL Eos # (Auto) (0-0.5) K/uL Baso # (Auto) (0-0.2) K/uL Specimen Type Sample Site L Radial Patient Temperature POC pH 7.42 (7.35-7.45) POC pCO2 78 H (35-46) mmHg POC pO2 68 L (80-95) mmHg POC HCO3 51 H (19-24) simone/L POC Total CO2 < 5 L* (24-31) mEq/l POC Base Excess 26.0 H (-9-1.8) simone/L O2 Sat Pulse Oximetry POC ABG O2 Sat 93.0 (90-95) % Alon Test Pass O2 Delivery Device BIPAP POC O2 Rate POC FiO2 35 % EPAP IPAP 17 Sodium (136-145) mmol/L Potassium (3.5-5.1) mmol/L Chloride (98-107) mmol/L Carbon Dioxide (21-32) mmol/L Anion Gap (3-11) BUN (7-18) mg/dl Creatinine (0.6-1.2) mg/dl Est Cr Clr Drug Dosing ml/min Est GFR ( Amer) Est GFR (Non-Af Amer) BUN/Creatinine Ratio (10-20) Glucose (70-99) mg/dl POC Glucose 214 H (70-99) Calcium (8.5-10.1) mg/dl Phosphorus (2.5-4.9) mg/dl Magnesium (1.8-2.4) mg/dl Troponin I (0-0.045) ng/ml Procalcitonin < 0.05 (0-0.5) ng/ml 04/03/19 04/03/19 04/03/19 Range/Units 05:35 04:48 04:48 WBC 5.19 (4.8-10.8) K/uL RBC 3.74 L (4.2-5.4) M/uL Hgb 11.6 L (12.0-16.0) g/dL Hct 35.4 L (37-47) % MCV 94.7 (80-100) fL MCH 31.0 (25-34) pg MCHC 32.8 (32-36) g/dL RDW Std Deviation 44.9 (36.4-46.3) fL RDW Coeff of Ministerio 12.9 (11.5-14.5) % Plt Count 169 (130-400) K/uL MPV 8.3 (7.4-10.4) fL Immature Gran % (Auto) 1.2 % Neut % (Auto) 83.8 % Lymph % (Auto) 12.5 % [place] % (Auto) 2.1 % Eos % (Auto) 0.2 % Baso % (Auto) 0.2 % Immature Gran # (Auto) 0.06 H (0.00-0.02) K/uL Neut # (Auto) 4.35 (1.4-6.5) K/uL Lymph # (Auto) 0.65 L (1.2-3.4) K/uL [place] # (Auto) 0.11 (0.11-0.59) K/uL Eos # (Auto) 0.01 (0-0.5) K/uL Baso # (Auto) 0.01 (0-0.2) K/uL Specimen Type Sample Site Patient Temperature POC pH (7.35-7.45) POC pCO2 (35-46) mmHg POC pO2 (80-95) mmHg POC HCO3 (19-24) simone/L POC Total CO2 (24-31) mEq/l POC Base Excess (-9-1.8) simone/L O2 Sat Pulse Oximetry POC ABG O2 Sat (90-95) % Alon Test O2 Delivery Device POC O2 Rate POC FiO2 % EPAP IPAP Sodium 122 L (136-145) mmol/L Potassium 4.1 D (3.5-5.1) mmol/L Chloride 77 L (98-107) mmol/L Carbon Dioxide 44 H* (21-32) mmol/L Anion Gap 1.0 L (3-11) BUN 10 D (7-18) mg/dl Creatinine 0.29 L (0.6-1.2) mg/dl Est Cr Clr Drug Dosing 314.4 ml/min Est GFR ( Amer) 146.9 Est GFR (Non-Af Amer) 126.7 BUN/Creatinine Ratio 32.6 H (10-20) Glucose 171 H (70-99) mg/dl POC Glucose 205 H (70-99) Calcium 9.0 (8.5-10.1) mg/dl Phosphorus 3.2 (2.5-4.9) mg/dl Magnesium 1.6 L (1.8-2.4) mg/dl Troponin I (0-0.045) ng/ml Procalcitonin (0-0.5) ng/ml 04/03/19 04/02/19 04/02/19 Range/Units 00:57 23:23 19:22 WBC (4.8-10.8) K/uL RBC (4.2-5.4) M/uL Hgb (12.0-16.0) g/dL Hct (37-47) % MCV (80-100) fL MCH (25-34) pg MCHC (32-36) g/dL RDW Std Deviation (36.4-46.3) fL RDW Coeff of Ministerio (11.5-14.5) % Plt Count (130-400) K/uL MPV (7.4-10.4) fL Immature Gran % (Auto) % Neut % (Auto) % Lymph % (Auto) % [place] % (Auto) % Eos % (Auto) % Baso % (Auto) % Immature Gran # (Auto) (0.00-0.02) K/uL Neut # (Auto) (1.4-6.5) K/uL Lymph # (Auto) (1.2-3.4) K/uL [place] # (Auto) (0.11-0.59) K/uL Eos # (Auto) (0-0.5) K/uL Baso # (Auto) (0-0.2) K/uL Specimen Type Arterial Sample Site L Radial Patient Temperature 36.8 POC pH 7.30 L (7.35-7.45) POC pCO2 97 H (35-46) mmHg POC pO2 73 L (80-95) mmHg POC HCO3 48 H (19-24) simone/L POC Total CO2 > 50 H* (24-31) mEq/l POC Base Excess 21.0 H (-9-1.8) simone/L O2 Sat Pulse Oximetry 96 POC ABG O2 Sat 91.0 (90-95) % Alon Test Acceptable O2 Delivery Device BIPAP POC O2 Rate 12 POC FiO2 35 % EPAP 5 IPAP 17 Sodium (136-145) mmol/L Potassium (3.5-5.1) mmol/L Chloride (98-107) mmol/L Carbon Dioxide (21-32) mmol/L Anion Gap (3-11) BUN (7-18) mg/dl Creatinine (0.6-1.2) mg/dl Est Cr Clr Drug Dosing ml/min Est GFR ( Amer) Est GFR (Non-Af Amer) BUN/Creatinine Ratio (10-20) Glucose (70-99) mg/dl POC Glucose 187 H (70-99) Calcium (8.5-10.1) mg/dl Phosphorus (2.5-4.9) mg/dl Magnesium (1.8-2.4) mg/dl Troponin I 0.163 H* (0-0.045) ng/ml Procalcitonin (0-0.5) ng/ml
[2019-04-04] MEDS: DOXYCYCLINE HYCLATE 100 MG in DEXTROSE 5% 100 ML IV SCH ×2 (00:01→12:00)
[2019-04-04] MEDS: LEVOTHYROXINE SODIUM 200 MCG TABLET PO SCH (06:08)
[2019-04-04] MEDS: CARBOHYDRATES FOR HYPOGLYCEMIA PO PRN ×2 (07:25→07:48)
[2019-04-04 07:46] LABS: Basophils # (auto) 0.02 K/uL (0-0.2); Basophils % (auto) 0.2 %; Eosinophils # (auto) 0.63 K/uL (0-0.5); Eosinophils % (auto) 5.3 %; Hematocrit (blood only) 36.2 % (37-47); Hemoglobin 11.8 g/dL (12.0-16.0); Immature Granulocytes # (auto) 0.12 K/uL (0.00-0.02); Lymphocytes # (auto) 2.82 K/uL (1.2-3.4); Lymphocytes % (auto) 23.6 %; Mean Corpuscular Hgb Conc 32.6 g/dL (32-36); Mean Corpuscular Volume 95.8 fL (80-100); Mean Platelet Volume 8.1 fL (7.4-10.4); Monocytes # (auto) 1.12 K/uL (0.11-0.59); Monocytes % (auto) 9.4 %; Neutrophils # (auto) 7.22 K/uL (1.4-6.5); Neutrophils % (auto) 60.5 %; Platelet Count 215 K/uL (130-400); RDW Coefficient of Variation 13.4 % (11.5-14.5); RDW Standard Deviation 46.8 fL (36.4-46.3); Red Blood Count 3.78 M/uL (4.2-5.4); White Blood Count 11.93 K/uL (4.8-10.8)
[2019-04-04 07:55] LABS: Partial Thromboplastin Ratio 0.8; Partial Thromboplastin Time 22.8 Seconds (21.0-31.0)
[2019-04-04 08:25] LABS: Calcium 9.2 mg/dl (8.5-10.1); Creatinine Clr Calc Pharmacy 285.8 ml/min; Est GFR (African American) 143.7; Magnesium 2.2 mg/dl (1.8-2.4); Potassium 3.3 mmol/L (3.5-5.1)
[2019-04-04] MEDS: ATORVASTATIN 40 MG TAB PO SCH (08:49)
[2019-04-04] MEDS: CLOPIDOGREL BISULFATE 75 MG TAB PO SCH (08:49)
[2019-04-04] MEDS: predniSONE 10 MG TABLET PO SCH (08:49)
[2019-04-04] MEDS: ASPIRIN 81 MG ECTAB PO SCH (08:50)
[2019-04-04] MEDS: ASCORBIC ACID 500 MG TAB PO SCH ×2 (08:51→20:41)
[2019-04-04] MEDS: POTASSIUM CHLORIDE 20 MEQ TABCR PO SCH (08:51)
[2019-04-04] MEDS: GABAPENTIN 100 MG CAP PO SCH ×3 (08:51→20:40)
[2019-04-04] MEDS: PANTOprazole 40 MG TAB PO SCH (08:51)
[2019-04-04] MEDS ORDERED: POTASSIUM CHLORIDE 20 MEQ TABCR PO STA (08:52)
[2019-04-04] MEDS: INSULIN GLARGINE SOLOSTAR 100 UNITS/ML 3 ML PEN SC SCH ×2 (08:56→20:48)
[2019-04-04] MEDS: INSULIN ASPART 100 UNITS/ML 3 ML PEN SC SCH ×4 (08:59→20:50)
[2019-04-04] MEDS ORDERED: NIACINAMIDE 500 MG PO SCH (09:00)
[2019-04-04] MEDS ORDERED: FUROSEMIDE 20 MG TAB PO SCH (09:00)
[2019-04-04] MEDS: FUROSEMIDE 20 MG in SYRINGE 0 ML IV SCH ×2 (09:00→20:46)
[2019-04-04] MEDS: HYDROCORTISONE SOD 50 MG in SYRINGE 0 ML IV SCH ×2 (10:00→18:59)
[2019-04-04 10:25] LABS: Allen Test Pos (Pos); HCO3 ABG 50 mmol/L (19-24); Oxygen Saturation ABG 95.6 % (90-95); PCO2 ABG 81 mmHg (35-46); PO2 ABG 82 mm/Hg (80-95); pH ABG 7.41 (7.35-7.45)
[2019-04-04] MEDS: NYSTATIN POWDER 15GM BTL EXT SCH ×3 (11:34→20:41)
[2019-04-04] MEDS: HEPARIN SODIUM (PORCINE) 7,500 UNITS in SYRINGE 0 ML SQ SCH ×3 (14:32→20:46)
[2019-04-04] MEDS: CHOLECALCIFEROL 1,000 UNITS TAB PO SCH (14:39)
[2019-04-04] MEDS ORDERED: BISACODYL 10 MG SUPP PR STA (17:10)
[2019-04-04] MEDS ORDERED: SOD PHOSPHATE/SOD BIPHOSPHATE ENEMA 132 ML BTL PR PRN (17:10)
--- NOTE | 2019-04-04 17:11 | Hospitalist Progress Note ---
Date of Service April 04, 2019 Assessment & Plan (1) CHF exacerbation: This patient is a 58 y/o female with a history of morbid obesity, COPD, current smoker, chronic hypoxic and hypercapnic resp failure, GEETHA and obesity hypoventilation syndrome on BiPAP, DM II, CAD, chronic diastolic CHF, autoimmune cirrhosis, HTN, HLD, hyponatremia, hypothyroidism, PVD who presents from [facility] with progressive SOB and moderate respiratory distress requiring BiPAP. Initial labs are notable for hyponatremia, mild hyperkalemia and an elevated troponin. An initial ABG demonstrated pH 7.27/PaCO2 99/PaO2 70. An EKG does not support acute ischemia. A CTA did not demonstrate PEs and is consistent wi th pulmonary edema and BL pleural effusions along with a right lower lobe 1.4 cm nodular opacity possibly inflammatory. She has been afebrile. Acute on chronic diastolic CHF -she was initially provided with NTG, IV Lasix and BiPAP and admitted to the ICU. She has diuresed 10 L net negative and has lost 13 kg since admission. She is significantly improved with her respiratory status. Was drowsy in the morning of 04/04 and had repeat ABG which was compensated at 7.41/ She still has significant peripheral edema on examination but is quite difficult to tell due to morbid obesity/body habitus Echocardiogram here with grade 2 diastolic dysfunction, preserved EF -Continue IV diuresis with Lasix 20 mg IV every 12 -Continue Hyde for accurate I's and O's -Continue strict I's and O's, daily weights, low-sodium diet (2) Acute on chronic respiratory failure with hypoxia and hypercapnia: Secondary to acute CHF and COPD exacerbation as above-improved, remains on nasal cannula and BiPAP at nighttime ABG today . which is at baseline -Continue treating with diuresis, supplemental O2, BiPAP, prednisone, nebulizers (3) Coronary atherosclerosis of [place] coronary vessel: With mildly elevated trop here at 0.19/0.47/0.16 consistent with myocardial demand ischemia in the setting of CHF exacerbation. Echocardiogram showed no WMAs She has known history of CAD status post PTCI in the past ECG here without ischemic changes -Cont ASA, Plavix, statin -Notably not on a beta-phuong possibly due to low resting heart rate (4) COPD (chronic obstructive pulmonary disease): With acute on chronic hypoxic and hypercarbic respiratory failure as above. 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 Appears compensated at this time (7) DM type 2 (diabetes mellitus, type 2): Hemoglobin A1c 8.3% in 01/2018-uncontrolled Is on basal bolus insulin both here and at home -With hyperglycemia here secondary corticosteroids and now with hypoglycemia -Started IV hydrocortisone today for stress dosed steroids which should raise up her sugars in the morning -Continue Lantus 50 units twice daily and sliding scale and continue to watch carefully (8) Hypothyroidism: TSH is normal -Continue home levothyroxine (9) GEETHA treated with BiPAP: Is supposed to be using BiPAP 12/ nightly as per outpatient pulmonology/sleep medicine notes-apparently she is quite noncompliant with this as an outpatient -Continue BiPAP for here at bedtime (10) Bullous pemphigoid: This was diagnosed approximately 2 years ago but apparently she was hospitalized at [facility] in [place] in December 2018 after being transferred from our ER down there for an acute flare with diffuse bullae. She remains on prednisone 30 mg daily as home dose, niacinamide 500 mill grams p.o. 3 times daily -Appears to be in healing stages with innumerable scabs all over (11) Pulmonary nodule: Right lower lobe 1.4 cm nodular opacity seen on CT of the chest She is a current smoker and is at high risk for lung cancer -Requires follow-up in 3 months to ensure resolution (12) Hypomagnesemia: Resolved after replacement (13) Hyponatremia: Her sodium has been as low as 127 in 2018 - has worsened on admission. Is likely due to fluid overload in the setting of CHF. Sodium is 122 on admission is improved with diuresis up to 127 Receiving IV loop diuretics and therefore no value in obtaining a fractional excretion of sodium at this time -Follow BMP in the morning -Continue diuresis (14) Elevated troponin: Myocardial demand ischemia as above (15) DVT prophylaxis: Heparin SQ Disposition-continued stay on medical floor with telemetry Back to snf when more stable Subjective Patient reports feeling "great." Was drowsy this morning as per nursing and had BiPAP replaced but now wide awake and alert and denies shortness of breath. She continues to diurese copious amounts of urine. Is complaining of constipation. Telemetry with normal sinus rhythm, PACs, PVCs, rates in the 60s to 70s Review of Systems Review of Systems: All systems reviewed & are unremarkable except as noted in HPI & below Physical Exam Constitutional: + morbidly obese; no acute distress Eyes: PERRL, conjunctivae normal, anicteric sclerae Neck: trachea midline, no thyromegaly Respiratory: normal respiratory effort Auscultation: + diminished lung sounds (Diffusely) and + wheezes Cardiovascular: RRR, no murmur, no edema Rate/Rhythm: regular rate and regular rhythm Extremities: + edema (2+ lower extremity edema to the thighs) Gastrointestinal (Abdomen): normal bowel sounds, soft, nontender, no hepatosplenomegaly Musculoskeletal: Extremities: no cyanosis and no clubbing Skin: no rashes, warm and dry + rash (Diffuse erythematous macular rash with bullae and excoriations on face trunk, arms and legs) Neurologic: moves all extremities and awake; no focal motor deficits Psychiatric: Orientation: alert, oriented to person, oriented to place and cooperative Genitourinary: normal external appearance (Hyde catheter in place draining clear yellow urine) Results & Data Vital Signs (Past 12 Hours) Vital Signs Temp Pulse Pulse Resp BP BP Pulse Ox 04/04/19 15:00 36.8 C 60 22 148/72 H 92 04/04/19 12:21 36.4 C L 62 21 124/56 L 97 04/04/19 09:18 24 97 04/04/19 07:55 36.3 C L 56 L 20 85/51 L 93 04/04/19 07:34 58 L Laboratory Results 04/04/19 04/04/19 04/04/19 Range/Units 20:47 16:37 11:18 WBC (4.8-10.8) K/uL RBC (4.2-5.4) M/uL Hgb (12.0-16.0) g/dL Hct (37-47) % MCV (80-100) fL MCH (25-34) pg MCHC (32-36) g/dL RDW Std Deviation (36.4-46.3) fL RDW Coeff of Ministerio (11.5-14.5) % Plt Count (130-400) K/uL MPV (7.4-10.4) fL Immature Gran % (Auto) % Neut % (Auto) % Lymph % (Auto) % [place] % (Auto) % Eos % (Auto) % Baso % (Auto) % Immature Gran # (Auto) (0.00-0.02) K/uL Neut # (Auto) (1.4-6.5) K/uL Lymph # (Auto) (1.2-3.4) K/uL [place] # (Auto) (0.11-0.59) K/uL Eos # (Auto) (0-0.5) K/uL Baso # (Auto) (0-0.2) K/uL APTT (21.0-31.0) Seconds PTT Ratio ABG pH ABG pCO2 ABG pO2 ABG HCO3 ABG O2 Saturation ABG Base Excess Alon Test Barometric Pressure Oxygen Given Sodium (136-145) mmol/L Potassium (3.5-5.1) mmol/L Chloride (98-107) mmol/L Carbon Dioxide (21-32) mmol/L Anion Gap (3-11) BUN (7-18) mg/dl Creatinine (0.6-1.2) mg/dl Est Cr Clr Drug Dosing ml/min Est GFR ( Amer) Est GFR (Non-Af Amer) BUN/Creatinine Ratio (10-20) Glucose (70-99) mg/dl POC Glucose 189 H 170 H 114 H (70-99) Calcium (8.5-10.1) mg/dl Magnesium (1.8-2.4) mg/dl 04/04/19 04/04/19 04/04/19 Range/Units 10:13 09:30 08:05 WBC (4.8-10.8) K/uL RBC (4.2-5.4) M/uL Hgb (12.0-16.0) g/dL Hct (37-47) % MCV (80-100) fL MCH (25-34) pg MCHC (32-36) g/dL RDW Std Deviation (36.4-46.3) fL RDW Coeff of Ministerio (11.5-14.5) % Plt Count (130-400) K/uL MPV (7.4-10.4) fL Immature Gran % (Auto) % Neut % (Auto) % Lymph % (Auto) % [place] % (Auto) % Eos % (Auto) % Baso % (Auto) % Immature Gran # (Auto) (0.00-0.02) K/uL Neut # (Auto) (1.4-6.5) K/uL Lymph # (Auto) (1.2-3.4) K/uL [place] # (Auto) (0.11-0.59) K/uL Eos # (Auto) (0-0.5) K/uL Baso # (Auto) (0-0.2) K/uL APTT (21.0-31.0) Seconds PTT Ratio ABG pH 7.41 Cancelled ABG pCO2 81 H Cancelled ABG pO2 82 Cancelled ABG HCO3 50 H Cancelled ABG O2 Saturation 95.6 H Cancelled ABG Base Excess 21.3 H Cancelled Alon Test Pos Cancelled Barometric Pressure 738.3 Cancelled Oxygen Given 35% Cancelled Sodium (136-145) mmol/L Potassium (3.5-5.1) mmol/L Chloride (98-107) mmol/L Carbon Dioxide (21-32) mmol/L Anion Gap (3-11) BUN (7-18) mg/dl Creatinine (0.6-1.2) mg/dl Est Cr Clr Drug Dosing ml/min Est GFR ( Amer) Est GFR (Non-Af Amer) BUN/Creatinine Ratio (10-20) Glucose (70-99) mg/dl POC Glucose 107 H (70-99) Calcium (8.5-10.1) mg/dl Magnesium (1.8-2.4) mg/dl 04/04/19 04/04/19 04/04/19 Range/Units 07:43 07:35 07:35 WBC (4.8-10.8) K/uL RBC (4.2-5.4) M/uL Hgb (12.0-16.0) g/dL Hct (37-47) % MCV (80-100) fL MCH (25-34) pg MCHC (32-36) g/dL RDW Std Deviation (36.4-46.3) fL RDW Coeff of Ministerio (11.5-14.5) % Plt Count (130-400) K/uL MPV (7.4-10.4) fL Immature Gran % (Auto) % Neut % (Auto) % Lymph % (Auto) % [place] % (Auto) % Eos % (Auto) % Baso % (Auto) % Immature Gran # (Auto) (0.00-0.02) K/uL Neut # (Auto) (1.4-6.5) K/uL Lymph # (Auto) (1.2-3.4) K/uL [place] # (Auto) (0.11-0.59) K/uL Eos # (Auto) (0-0.5) K/uL Baso # (Auto) (0-0.2) K/uL APTT 22.8 (21.0-31.0) Seconds PTT Ratio 0.8 ABG pH ABG pCO2 ABG pO2 ABG HCO3 ABG O2 Saturation ABG Base Excess Alon Test Barometric Pressure Oxygen Given Sodium 127 L (136-145) mmol/L Potassium 3.3 L (3.5-5.1) mmol/L Chloride 77 L (98-107) mmol/L Carbon Dioxide 49 H* (21-32) mmol/L Anion Gap 2.0 L (3-11) BUN 15 (7-18) mg/dl Creatinine 0.31 L (0.6-1.2) mg/dl Est Cr Clr Drug Dosing 285.8 ml/min Est GFR ( Amer) 143.7 Est GFR (Non-Af Amer) 124.0 BUN/Creatinine Ratio 49.0 H (10-20) Glucose 55 L (70-99) mg/dl POC Glucose 67 L* (70-99) Calcium 9.2 (8.5-10.1) mg/dl Magnesium 2.2 (1.8-2.4) mg/dl 04/04/19 04/04/19 04/04/19 Range/Units 07:35 07:13 07:12 WBC 11.93 H (4.8-10.8) K/uL RBC 3.78 L (4.2-5.4) M/uL Hgb 11.8 L (12.0-16.0) g/dL Hct 36.2 L (37-47) % MCV 95.8 (80-100) fL MCH 31.2 (25-34) pg MCHC 32.6 (32-36) g/dL RDW Std Deviation 46.8 H (36.4-46.3) fL RDW Coeff of Ministerio 13.4 (11.5-14.5) % Plt Count 215 (130-400) K/uL MPV 8.1 (7.4-10.4) fL Immature Gran % (Auto) 1.0 % Neut % (Auto) 60.5 % Lymph % (Auto) 23.6 % [place] % (Auto) 9.4 % Eos % (Auto) 5.3 % Baso % (Auto) 0.2 % Immature Gran # (Auto) 0.12 H (0.00-0.02) K/uL Neut # (Auto) 7.22 H (1.4-6.5) K/uL Lymph # (Auto) 2.82 (1.2-3.4) K/uL [place] # (Auto) 1.12 H (0.11-0.59) K/uL Eos # (Auto) 0.63 H (0-0.5) K/uL Baso # (Auto) 0.02 (0-0.2) K/uL APTT (21.0-31.0) Seconds PTT Ratio ABG pH ABG pCO2 ABG pO2 ABG HCO3 ABG O2 Saturation ABG Base Excess Alon Test Barometric Pressure Oxygen Given Sodium (136-145) mmol/L Potassium (3.5-5.1) mmol/L Chloride (98-107) mmol/L Carbon Dioxide (21-32) mmol/L Anion Gap (3-11) BUN (7-18) mg/dl Creatinine (0.6-1.2) mg/dl Est Cr Clr Drug Dosing ml/min Est GFR ( Amer) Est GFR (Non-Af Amer) BUN/Creatinine Ratio (10-20) Glucose (70-99) mg/dl POC Glucose 50 L* 52 L* (70-99) Calcium (8.5-10.1) mg/dl Magnesium (1.8-2.4) mg/dl
[2019-04-04] MEDS: MAGNESIUM OXIDE 400 MG TAB PO SCH (20:40)
[2019-04-05] MEDS: DOXYCYCLINE HYCLATE 100 MG in DEXTROSE 5% 100 ML IV SCH (01:11)
[2019-04-05] MEDS: HYDROCORTISONE SOD 50 MG in SYRINGE 0 ML IV SCH ×3 (02:58→18:01)
[2019-04-05] MEDS: LEVOTHYROXINE SODIUM 200 MCG TABLET PO SCH (06:32)
[2019-04-05 08:07] LABS: Eosinophils # (auto) 0.07 K/uL (0-0.5); Eosinophils % (auto) 0.9 %; Hematocrit (blood only) 38.1 % (37-47); Hemoglobin 12.2 g/dL (12.0-16.0); Immature Granulocytes # (auto) 0.05 K/uL (0.00-0.02); Immature Granulocytes % (auto) 0.6 %; Lymphocytes # (auto) 1.17 K/uL (1.2-3.4); Mean Corpuscular Volume 97.7 fL (80-100); Mean Platelet Volume 8.5 fL (7.4-10.4); Monocytes # (auto) 0.63 K/uL (0.11-0.59); Monocytes % (auto) 8.1 %; Neutrophils % (auto) 75.4 %; Platelet Count 203 K/uL (130-400); RDW Coefficient of Variation 13.4 % (11.5-14.5); RDW Standard Deviation 47.8 fL (36.4-46.3); White Blood Count 7.82 K/uL (4.8-10.8)
[2019-04-05 09:13] LABS: BUN Creatinine Ratio 49.7 (10-20); Calcium 9.1 mg/dl (8.5-10.1); Creatinine Clr Calc Pharmacy 255.8 ml/min; Est GFR (African American) 139.4; Est GFR (Non-African American) 120.3; Magnesium 2.2 mg/dl (1.8-2.4); Potassium 3.4 mmol/L (3.5-5.1)
[2019-04-05] MEDS: NYSTATIN POWDER 15GM BTL EXT SCH ×3 (09:21→20:40)
[2019-04-05] MEDS: FUROSEMIDE 20 MG in SYRINGE 0 ML IV SCH ×2 (09:22→20:38)
[2019-04-05] MEDS: HEPARIN SODIUM (PORCINE) 7,500 UNITS in SYRINGE 0 ML SQ SCH ×3 (09:22→21:43)
[2019-04-05] MEDS: POTASSIUM CHLORIDE 20 MEQ TABCR PO SCH ×2 (09:24→20:40)
[2019-04-05] MEDS: PANTOprazole 40 MG TAB PO SCH (09:25)
[2019-04-05] MEDS: CHOLECALCIFEROL 1,000 UNITS TAB PO SCH (09:25)
[2019-04-05] MEDS: ATORVASTATIN 40 MG TAB PO SCH (09:25)
[2019-04-05] MEDS: CLOPIDOGREL BISULFATE 75 MG TAB PO SCH (09:25)
[2019-04-05] MEDS: predniSONE 10 MG TABLET PO SCH (09:25)
[2019-04-05] MEDS: GABAPENTIN 100 MG CAP PO SCH ×3 (09:26→20:40)
[2019-04-05] MEDS: ASCORBIC ACID 500 MG TAB PO SCH ×2 (09:26→20:39)
[2019-04-05] MEDS: INSULIN GLARGINE SOLOSTAR 100 UNITS/ML 3 ML PEN SC SCH ×2 (09:28→20:37)
[2019-04-05] MEDS: INSULIN ASPART 100 UNITS/ML 3 ML PEN SC SCH ×4 (09:29→20:37)
[2019-04-05] MEDS: ASPIRIN 81 MG ECTAB PO SCH (09:31)
[2019-04-05] MEDS ORDERED: POTASSIUM CHLORIDE 20 MEQ TABCR PO STA (10:31)
[2019-04-05] MEDS: DOXYCYCLINE HYCLATE 100 MG CAP PO SCH ×2 (14:41→20:38)
[2019-04-05] MEDS: MAGNESIUM OXIDE 400 MG TAB PO SCH (20:40)
--- NOTE | 2019-04-05 23:05 | Hospitalist Progress Note ---
Date of Service April 05, 2019 Assessment & Plan (1) CHF exacerbation: This patient is a 58 y/o female with a history of morbid obesity, COPD, current smoker, chronic hypoxic and hypercapnic resp failure, GEETHA and obesity hypoventilation syndrome on BiPAP, DM II, CAD, chronic diastolic CHF, autoimmune cirrhosis, HTN, HLD, hyponatremia, hypothyroidism, PVD who presents from [facility] with progressive SOB and moderate respiratory distress requiring BiPAP. Initial labs are notable for hyponatremia, mild hyperkalemia and an elevated troponin. An initial ABG demonstrated pH 7.27/PaCO2 99/PaO2 70. An EKG does not support acute ischemia. A CTA did not demonstrate PEs and is consistent wi th pulmonary edema and BL pleural effusions along with a right lower lobe 1.4 cm nodular opacity possibly inflammatory. She has been afebrile. Acute on chronic diastolic CHF -could be secondary to chronic prednisone use, possibly dietary related. She was initially provided with NTG, IV Lasix and BiPAP and admitted to the ICU. She was transferred out of the ICU the next day after significant amount of diuresis was accomplished. Continues to diurese copious amounts of urine and still has a lot of peripheral edema. She has diuresed 17 L net negative of fluid and has lost 17.2 kg since admission. She is significantly improved with her respiratory status. Her creatinine remains perfectly normal She still has significant peripheral edema on examination but is quite difficult to tell due to morbid obesity/body habitus, however I feel she still has plenty of fluid to diuresis Echocardiogram here with grade 2 diastolic dysfunction, preserved EF -Continue IV diuresis with Lasix 20 mg IV every 12 hours -Continue Hyde for accurate I's and O's -Continue strict I's and O's, daily weights, low-sodium diet, fluid restriction (2) Acute on chronic respiratory failure with hypoxia and hypercapnia: Secondary to acute CHF and COPD exacerbation as above-improved, remains on nasal cannula and BiPAP at nighttime which is her baseline Had elevated PaCO2 and low pH on admission which is now improved back to baseline -Continue treating with diuresis, supplemental O2, BiPAP, prednisone, nebulizers (3) Coronary atherosclerosis of [place] coronary vessel: With mildly elevated trop here at 0.19/0.47/0.16 consistent with myocardial demand ischemia in the setting of CHF exacerbation. Echocardiogram showed no WMAs She has known history of CAD status post PTCI in the past ECG here without ischemic changes -Cont ASA, Plavix, statin -Notably not on a beta-phuong possibly due to low resting heart rate (4) COPD (chronic obstructive pulmonary disease): With acute on chronic hypoxic and hypercarbic respiratory failure as above. Much improved, less wheezing today -continue to treat with nebs, 02, and prednisone 50 mg daily -We will eventually taper back to home dose of prednisone 30 mg daily which is actually being used for her bullous pemphigoid -Was placed on IV hydrocortisone for low blood pressures for stress dose steroids-blood pressure is now improved, will discontinue -Initially received cefepime and vancomycin on admission, now on doxycycline 100 mg p.o. 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 Appears compensated at this time AST and ALT mildly elevated upon admission -Follow LFTs in the morning (7) DM type 2 (diabetes mellitus, type 2): Hemoglobin A1c 8.3% in 01/2019-uncontrolled Is on basal bolus insulin both here and at home -With hyperglycemia here secondary to corticosteroids and then with hypoglycemia-this is now improved -Given the we are discontinuing the IV hydrocortisone today, will watch for recurrent hypoglycemia -Continue Lantus 50 units twice daily and sliding scale and continue to watch carefully (8) Hypothyroidism: TSH is normal -Continue home levothyroxine (9) GEETHA treated with BiPAP: Is supposed to be using BiPAP 12/5 nightly as per outpatient pulmonology/sleep medicine notes-apparently she is quite noncompliant with this as an outpatient -Continue BiPAP for here at bedtime (10) Bullous pemphigoid: This was diagnosed approximately 2 years ago but apparently she was hospitalized at [facility] in [place] in December 2018 after being transferred from our ER down there for an acute flare with diffuse bullae. She remains on prednisone 30 mg daily as home dose, niacinamide 500 mill grams p.o. 3 times daily -Appears to be in healing stages with innumerable scabs all over (11) Pulmonary nodule: Right lower lobe 1.4 cm nodular opacity seen on CT of the chest She is a current smoker and is at high risk for lung cancer -Requires follow-up in 3 months to ensure resolution (12) Hypomagnesemia: Resolved after replacement -Continue oral magnesium oxide daily (13) Hyponatremia: Has a history of chronic hyponatremia with baseline around 127 in 2018 - has worsened on admission. Is likely due to fluid overload in the setting of CHF. Sodium was 122 on admission and now is greatly improved with diuresis up to 130 -Follow BMP in the morning -Continue diuresis (14) Elevated troponin: Myocardial demand ischemia as above (15) Hypokalemia: Potassium mildly low today secondary to loop diuretic use -Replaced with oral potassium as needed and increased daily standing dose to 20 mEq p.o. twice daily -Follow BMP in the morning (16) GERD (gastroesophageal reflux disease): Stable -Continue home Photonix (17) Neuropathy: Stable -Continue home gabapentin (18) DVT prophylaxis: Heparin SQ Disposition-continued stay on medical floor with telemetry for continued diuresis Back to [facility] when volume status is optimized Subjective Patient is very excited about the huge amount of weight loss she is having here. She denies any shortness of breath. She is tolerating p.o. and moving her bowels. Attempts were made to get her out of bed to a chair today but she was not able to stand. This is her baseline she reports for the last year. Telemetry with normal sinus rhythm, rates 50s to 70s, PACs Review of Systems Review of Systems: All systems reviewed & are unremarkable except as noted in HPI & below Physical Exam Constitutional: + morbidly obese; no acute distress Eyes: PERRL, conjunctivae normal, anicteric sclerae Neck: trachea midline, no thyromegaly Respiratory: normal respiratory effort Auscultation: + diminished lung sounds (Diffusely, but improved from previous); no wheezes Cardiovascular: Rate/Rhythm: regular rate and regular rhythm Extremities: + edema (2+ lower extremity edema to the thighs) Gastrointestinal (Abdomen): normal bowel sounds, soft, nontender, no hepatosplenomegaly Musculoskeletal: Extremities: no cyanosis and no clubbing Skin: no rashes, warm and dry + rash (Diffuse erythematous macular rash with bullae and excoriations on face trunk, arms and legs) Neurologic: moves all extremities and awake; no focal motor deficits Psychiatric: Orientation: alert, oriented to person, oriented to place and cooperative Genitourinary: normal external appearance (Hyde catheter in place draining clear yellow urine) Results & Data Vital Signs (Past 12 Hours) Vital Signs Temp Pulse Pulse Resp BP Pulse Ox 04/05/19 19:32 36.8 C 69 18 144/83 H 95 04/05/19 16:00 68 04/05/19 15:17 36.6 C 72 20 140/74 95 04/05/19 12:00 36.6 C 74 22 114/69 95 Laboratory Results 04/05/19 04/05/19 04/05/19 Range/Units 20:18 16:46 11:41 WBC (4.8-10.8) K/uL RBC (4.2-5.4) M/uL Hgb (12.0-16.0) g/dL Hct (37-47) % MCV (80-100) fL MCH (25-34) pg MCHC (32-36) g/dL RDW Std Deviation (36.4-46.3) fL RDW Coeff of Ministerio (11.5-14.5) % Plt Count (130-400) K/uL MPV (7.4-10.4) fL Immature Gran % (Auto) % Neut % (Auto) % Lymph % (Auto) % [place] % (Auto) % Eos % (Auto) % Baso % (Auto) % Immature Gran # (Auto) (0.00-0.02) K/uL Neut # (Auto) (1.4-6.5) K/uL Lymph # (Auto) (1.2-3.4) K/uL [place] # (Auto) (0.11-0.59) K/uL Eos # (Auto) (0-0.5) K/uL Baso # (Auto) (0-0.2) K/uL Sodium (136-145) mmol/L Potassium (3.5-5.1) mmol/L Chloride (98-107) mmol/L Carbon Dioxide (21-32) mmol/L Anion Gap (3-11) BUN (7-18) mg/dl Creatinine (0.6-1.2) mg/dl Est Cr Clr Drug Dosing ml/min Est GFR ( Amer) Est GFR (Non-Af Amer) BUN/Creatinine Ratio (10-20) Glucose (70-99) mg/dl POC Glucose 239 H 177 H 161 H (70-99) Calcium (8.5-10.1) mg/dl Magnesium (1.8-2.4) mg/dl 04/05/19 04/05/19 04/05/19 Range/Units 07:35 07:32 07:32 WBC 7.82 (4.8-10.8) K/uL RBC 3.90 L (4.2-5.4) M/uL Hgb 12.2 (12.0-16.0) g/dL Hct 38.1 (37-47) % MCV 97.7 (80-100) fL MCH 31.3 (25-34) pg MCHC 32.0 (32-36) g/dL RDW Std Deviation 47.8 H (36.4-46.3) fL RDW Coeff of Ministerio 13.4 (11.5-14.5) % Plt Count 203 (130-400) K/uL MPV 8.5 (7.4-10.4) fL Immature Gran % (Auto) 0.6 % Neut % (Auto) 75.4 % Lymph % (Auto) 15.0 % [place] % (Auto) 8.1 % Eos % (Auto) 0.9 % Baso % (Auto) 0.0 % Immature Gran # (Auto) 0.05 H (0.00-0.02) K/uL Neut # (Auto) 5.90 (1.4-6.5) K/uL Lymph # (Auto) 1.17 L (1.2-3.4) K/uL [place] # (Auto) 0.63 H (0.11-0.59) K/uL Eos # (Auto) 0.07 (0-0.5) K/uL Baso # (Auto) 0.00 (0-0.2) K/uL Sodium 130 L (136-145) mmol/L Potassium 3.4 L (3.5-5.1) mmol/L Chloride 82 L (98-107) mmol/L Carbon Dioxide 47 H* (21-32) mmol/L Anion Gap 1.0 L (3-11) BUN 17 (7-18) mg/dl Creatinine 0.34 L (0.6-1.2) mg/dl Est Cr Clr Drug Dosing 255.8 ml/min Est GFR ( Amer) 139.4 Est GFR (Non-Af Amer) 120.3 BUN/Creatinine Ratio 49.7 H (10-20) Glucose 119 H (70-99) mg/dl POC Glucose 128 H (70-99) Calcium 9.1 (8.5-10.1) mg/dl Magnesium 2.2 (1.8-2.4) mg/dl 04/05/19 Range/Units 03:03 WBC (4.8-10.8) K/uL RBC (4.2-5.4) M/uL Hgb (12.0-16.0) g/dL Hct (37-47) % MCV (80-100) fL MCH (25-34) pg MCHC (32-36) g/dL RDW Std Deviation (36.4-46.3) fL RDW Coeff of Ministerio (11.5-14.5) % Plt Count (130-400) K/uL MPV (7.4-10.4) fL Immature Gran % (Auto) % Neut % (Auto) % Lymph % (Auto) % [place] % (Auto) % Eos % (Auto) % Baso % (Auto) % Immature Gran # (Auto) (0.00-0.02) K/uL Neut # (Auto) (1.4-6.5) K/uL Lymph # (Auto) (1.2-3.4) K/uL [place] # (Auto) (0.11-0.59) K/uL Eos # (Auto) (0-0.5) K/uL Baso # (Auto) (0-0.2) K/uL Sodium (136-145) mmol/L Potassium (3.5-5.1) mmol/L Chloride (98-107) mmol/L Carbon Dioxide (21-32) mmol/L Anion Gap (3-11) BUN (7-18) mg/dl Creatinine (0.6-1.2) mg/dl Est Cr Clr Drug Dosing ml/min Est GFR ( Amer) Est GFR (Non-Af Amer) BUN/Creatinine Ratio (10-20) Glucose (70-99) mg/dl POC Glucose 186 H (70-99) Calcium (8.5-10.1) mg/dl Magnesium (1.8-2.4) mg/dl
[2019-04-06] MEDS: LEVOTHYROXINE SODIUM 200 MCG TABLET PO SCH (05:51)
[2019-04-06 07:50] LABS: Alanine Aminotransferase 54 U/L (12-78); Albumin Level 2.7 gm/dl (3.4-5.0); Alkaline Phosphatase 85 U/L (45-117); Aspartate Aminotransferase 18 U/L (15-37); BUN Creatinine Ratio 47.4 (10-20); Bilirubin Direct < 0.1 mg/dl (0-0.2); Bilirubin,Total 0.4 mg/dl (0.2-1); Blood Urea Nitrogen 18 mg/dl (7-18); Calcium 9.2 mg/dl (8.5-10.1); Chloride 86 mmol/L (98-107); Creatinine Clr Calc Pharmacy 223.4 ml/min; Est GFR (African American) 133.2; Glucose 88 mg/dl (70-99); Magnesium 2.2 mg/dl (1.8-2.4); Potassium 3.9 mmol/L (3.5-5.1); Sodium 132 mmol/L (136-145); Total Protein 6.1 gm/dl (6.4-8.2)
[2019-04-06] MEDS: INSULIN ASPART 100 UNITS/ML 3 ML PEN SC SCH ×4 (07:59→21:51)
[2019-04-06] MEDS: HEPARIN SODIUM (PORCINE) 7,500 UNITS in SYRINGE 0 ML SQ SCH ×3 (08:00→21:48)
[2019-04-06 08:02] LABS: Carbon Dioxide 49 mmol/L (21-32)
[2019-04-06] MEDS: ASPIRIN 81 MG ECTAB PO SCH (08:04)
[2019-04-06] MEDS: FUROSEMIDE 20 MG in SYRINGE 0 ML IV SCH ×2 (08:06→21:37)
[2019-04-06] MEDS: POTASSIUM CHLORIDE 20 MEQ TABCR PO SCH ×2 (08:06→21:46)
[2019-04-06] MEDS: NYSTATIN POWDER 15GM BTL EXT SCH ×3 (08:07→21:47)
[2019-04-06] MEDS: GABAPENTIN 100 MG CAP PO SCH ×3 (08:07→21:37)
[2019-04-06] MEDS: ATORVASTATIN 40 MG TAB PO SCH (08:07)
[2019-04-06] MEDS: CLOPIDOGREL BISULFATE 75 MG TAB PO SCH (08:08)
[2019-04-06] MEDS: predniSONE 10 MG TABLET PO SCH (08:08)
[2019-04-06] MEDS: PANTOprazole 40 MG TAB PO SCH (08:09)
[2019-04-06] MEDS: ASCORBIC ACID 500 MG TAB PO SCH ×2 (08:09→21:47)
[2019-04-06] MEDS: CHOLECALCIFEROL 1,000 UNITS TAB PO SCH (08:10)
[2019-04-06] MEDS: acetaZOLAMIDE 250 MG TAB PO SCH ×2 (09:51→17:46)
[2019-04-06] MEDS: DOXYCYCLINE HYCLATE 100 MG CAP PO SCH (09:52)
[2019-04-06] MEDS: INSULIN GLARGINE SOLOSTAR 100 UNITS/ML 3 ML PEN SC SCH ×2 (09:53→21:49)
[2019-04-06] MEDS ORDERED: DAPTOMYCIN CONSULT ACTIVE SCH (12:15)
[2019-04-06] MEDS: BACITRACIN OINT 15 GM TUBE EXT SCH ×2 (12:38→21:35)
[2019-04-06] MEDS: DAPTOmycin 375 MG in SYRINGE 0 ML IV SCH (12:40)
--- NOTE | 2019-04-06 16:01 | Hospitalist Progress Note ---
Date of Service April 06, 2019 Assessment & Plan (1) CHF exacerbation: 58 y/o female with a history of morbid obesity, COPD, current smoker, chronic hypoxic and hypercapnic resp failure, GEETHA and obesity hypoventilation syndrome on BiPAP, DM II, CAD, chronic diastolic CHF, autoimmune cirrhosis, HTN, HLD, hyponatremia, hypothyroidism, PVD who presents from [facility] admitted on Apr 02 2019 with with progressive SOB associated with moderate respiratory distress requiring BiPAP. Initial labs are notable for hyponatremia, mild hyperkalemia and an elevated troponin. An initial ABG demonstrated pH 7.27/PaCO2 99/PaO2 70. An EKG does not support acute ischemia. A CTA did not demonstrate PEs and is consistent with pulmonary edema and BL pleural effusions a right lower lobe 1.4 cm nodular opacity possibly inflammatory. Acute on chronic diastolic CHF -could be secondary to chronic prednisone use, possibly dietary related. She was initially provided with NTG, IV Lasix and BiPAP and admitted to the ICU. She was transferred out of the ICU the next day after significant amount of diuresis was accomplished. Continues to diurese copious amounts of urine and still has a lot of peripheral edema. She has diuresed 19 L net negative of fluid cont significantly improved with her respiratory status. creatinine remains perfectly normal still has significant peripheral edema on examination but is quite difficult to tell due to morbid obesity/body habitus, still has plenty of fluid to diuresis Echocardiogram here with grade 2 diastolic dysfunction, preserved EF -Continue IV diuresis with Lasix 20 mg IV every 12 hours -Continue Hyde for accurate I's and O's -Continue strict I's and O's, daily weights, low-sodium diet, fluid restriction (2) Acute on chronic respiratory failure with hypoxia and hypercapnia: Secondary to acute CHF and COPD exacerbation as above-improved, remains on nasal cannula and BiPAP at nighttime which is her baseline Had elevated PaCO2 and low pH on admission which is now improved back to baseline Continue treating with diuresis, supplemental O2, BiPAP, prednisone, nebulizers (3) Coronary atherosclerosis of [place] coronary vessel: With mildly elevated trop here at 0.19/0.47/0.16 consistent with myocardial demand ischemia in the setting of CHF exacerbation. Echocardiogram showed no WMAs She has known history of CAD status post PTCI in the past ECG here without ischemic changes Cont ASA, Plavix, statin Notably not on a beta-phuong possibly due to low resting heart rate (4) COPD (chronic obstructive pulmonary disease): With acute on chronic hypoxic and hypercarbic respiratory failure as above. Much improved, less wheezing today continue to treat with nebs, 02, and prednisone 50 mg daily will eventually taper back to home dose of prednisone 30 mg daily which is actually being used for her bullous pemphigoid Was placed on IV hydrocortisone for low blood pressures for stress dose steroids-blood pressure is now improved, will discontinue Initially received cefepime and vancomycin on admission, now on doxycycline 100 mg p.o. 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 Appears compensated at this time AST and ALT mildly elevated upon admission Follow LFTs in the morning (7) DM type 2 (diabetes mellitus, type 2): Hemoglobin A1c 8.3% in 01/2019-uncontrolled Is on basal bolus insulin both here and at home With hyperglycemia here secondary to corticosteroids and then with hypoglycemia- this is now improved Given the we are discontinuing the IV hydrocortisone today, will watch for recurrent hypoglycemia Continue Lantus 50 units twice daily and sliding scale and continue to watch carefully (8) Hypothyroidism: TSH is normal Continue home levothyroxine (9) GEETHA treated with BiPAP: Is supposed to be using BiPAP 12/5 nightly as per outpatient pulmonology/sleep medicine notes-apparently she is quite noncompliant with this as an outpatient Continue BiPAP for here at bedtime (10) Bullous pemphigoid: This was diagnosed approximately 2 years ago but apparently she was hospitalized at [facility] in [place] in December 2018 after being transferred from our ER down there for an acute flare with diffuse bullae. She remains on prednisone 30 mg daily as home dose, niacinamide 500 mill grams p.o. 3 times daily Appears to be in healing stages with innumerable scabs all over (11) Pulmonary nodule: Right lower lobe 1.4 cm nodular opacity seen on CT of the chest She is a current smoker and is at high risk for lung cancer Requires follow-up in 3 months to ensure resolution (12) Hypomagnesemia: Resolved after replacement Continue oral magnesium oxide daily (13) Hyponatremia: Has a history of chronic hyponatremia with baseline around 127 in 2018 - has worsened on admission. Is likely due to fluid overload in the setting of CHF. Sodium was 122 on admission and now is greatly improved with diuresis up to 130 Follow BMP in the morning Continue diuresis (14) Elevated troponin: Myocardial demand ischemia as above (15) Hypokalemia: Potassium mildly low today secondary to loop diuretic use Replaced with oral potassium as needed and increased daily standing dose to 20 mEq p.o. twice daily Follow BMP in the morning (16) GERD (gastroesophageal reflux disease): Stable, Continue home Photonix (17) Neuropathy: Stable, Continue home gabapentin (18) DVT prophylaxis: Heparin SQ Disposition-continued stay on medical floor with telemetry for continued diuresis Back to halfway when volume status is optimized (19) Furuncle: Possible forming abscess, patient was on doxycycline , after discussing with pharmacist, will give Dapto IV instead of Vanco because patient is morbid obesity is difficult to reach for the therapeutic level, will follow up, surgeon consult if needed, no capacity dressing ointment application Subjective Reported left atrial posterior neck area significant pain when on BiPAP, local skin hot and swelling, possible laceration, has been 3 to 4 days, denies fever and chill, whole body skin all over especially on the face and bilateral upper arm the scratching /crusted from previous blister Otherwise generally doing okay, Review of Systems Review of Systems: Constitutional: Denies fever, chills, sweats Eyes: Denies double vision, vision change, eye pain Cardiovascular: denies, chest pressure, palpitations, swelling Respiratory: Endorses continued shortness of breath, improved from yesterday. Gastrointestinal: Denies abdominal pain, nausea, vomiting, Musculoskeletal: Denies muscle aches/pain, joint aches/pain but endorses fatigue Integumentary: diffuse whole body rash unchanged crusted from blister, is not healing no new rashes Neurological: Denies headache, numbness, tingling, focal weakness Physical Exam Physical Exam: Constitutional: + morbidly obese; no acute distress Eyes: PERRL, conjunctivae normal, anicteric sclerae Neck: Left lateral posterior neck has skin erythema and furuncle with ulcerations local tender to palpation, trachea midline, no thyromegaly Respiratory normal respiratory effort, Auscultation: + diminished lung sounds (Diffusely) and + wheezes Cardiovascular: Rate/Rhythm: regular rate and regular rhythm, Extremities: + edema (2+ lower extremity edema to the thighs) Gastrointestinal (Abdomen) normal bowel sounds, soft, nontender, no hepatosplenomegaly Musculoskeletal Extremities: no cyanosis and no clubbing Skin: + rash, Diffuse crusted erythematous macular rash with bullae and excoriations on face trunk, arms and legs Neurologic moves all extremities and awake; no focal motor deficits Psychiatric Orientation: alert, oriented to person, oriented to place and cooperative Results & Data Vital Signs (Past 12 Hours) Vital Signs Temp Pulse Pulse Resp BP Pulse Ox 04/06/19 11:48 36.5 C 53 L 20 105/60 98 04/06/19 08:00 50 L 04/06/19 07:54 36.4 C L 59 L 22 148/56 H 99 04/06/19 05:30 60 Laboratory Results - last 24 hr 04/05/19 04/05/19 04/06/19 16:46 20:18 06:42 Sodium 132 L Potassium 3.9 Chloride 86 L Carbon Dioxide 49 H* Anion Gap -4.0 L BUN 18 Creatinine 0.39 L Est Cr Clr Drug Dosing 223.4 Est GFR ( Amer) 133.2 Est GFR (Non-Af Amer) 115.0 BUN/Creatinine Ratio 47.4 H Glucose 88 POC Glucose 177 H 239 H Calcium 9.2 Magnesium 2.2 Total Bilirubin 0.4 Direct Bilirubin < 0.1 AST 18 ALT 54 Alkaline Phosphatase 85 Total Protein 6.1 L Albumin 2.7 L 04/06/19 04/06/19 07:42 11:37 Sodium Potassium Chloride Carbon Dioxide Anion Gap BUN Creatinine Est Cr Clr Drug Dosing Est GFR ( Amer) Est GFR (Non-Af Amer) BUN/Creatinine Ratio Glucose POC Glucose 76 114 H Calcium Magnesium Total Bilirubin Direct Bilirubin AST ALT Alkaline Phosphatase Total Protein Albumin
[2019-04-06] MEDS: MAGNESIUM OXIDE 400 MG TAB PO SCH (21:45)
[2019-04-07] MEDS: LEVOTHYROXINE SODIUM 200 MCG TABLET PO SCH (06:35)
[2019-04-07 07:58] LABS: Est GFR (African American) 128.1; Est GFR (Non-African American) 110.5
[2019-04-07] MEDS: INSULIN ASPART 100 UNITS/ML 3 ML PEN SC SCH ×4 (08:23→20:36)
[2019-04-07] MEDS: INSULIN GLARGINE SOLOSTAR 100 UNITS/ML 3 ML PEN SC SCH ×2 (08:25→20:37)
[2019-04-07] MEDS: HEPARIN SODIUM (PORCINE) 7,500 UNITS in SYRINGE 0 ML SQ SCH ×3 (08:27→21:34)
[2019-04-07] MEDS: BACITRACIN OINT 15 GM TUBE EXT SCH ×2 (08:32→20:31)
[2019-04-07 08:57] LABS: Albumin Level 2.8 gm/dl (3.4-5.0); Calcium 9.3 mg/dl (8.5-10.1); Creatinine Clr Calc Pharmacy 190.7 ml/min; Est GFR (African American) 127.1; Est GFR (Non-African American) 109.7; Potassium 3.6 mmol/L (3.5-5.1)
[2019-04-07] MEDS: POTASSIUM CHLORIDE 20 MEQ TABCR PO SCH ×2 (08:57→20:33)
[2019-04-07] MEDS: ASPIRIN 81 MG ECTAB PO SCH (08:57)
[2019-04-07] MEDS: CLOPIDOGREL BISULFATE 75 MG TAB PO SCH (08:58)
[2019-04-07] MEDS: GABAPENTIN 100 MG CAP PO SCH ×3 (08:58→20:33)
[2019-04-07] MEDS: ATORVASTATIN 40 MG TAB PO SCH (08:58)
[2019-04-07] MEDS: predniSONE 10 MG TABLET PO SCH (08:59)
[2019-04-07] MEDS: ASCORBIC ACID 500 MG TAB PO SCH ×2 (08:59→20:34)
[2019-04-07] MEDS: PANTOprazole 40 MG TAB PO SCH (08:59)
[2019-04-07] MEDS: CHOLECALCIFEROL 1,000 UNITS TAB PO SCH (09:00)
[2019-04-07 09:01] LABS: Albumin Globulin Ratio 0.8 (0.9-2); Bilirubin,Total 0.4 mg/dl (0.2-1); Globulin 3.6 gm/dl (2.5-4.0); Total Protein 6.4 gm/dl (6.4-8.2)
[2019-04-07] MEDS: FUROSEMIDE 20 MG in SYRINGE 0 ML IV SCH ×2 (09:01→20:30)
[2019-04-07] MEDS: acetaZOLAMIDE 250 MG TAB PO SCH ×2 (10:51→17:44)
[2019-04-07] MEDS: NYSTATIN POWDER 15GM BTL EXT SCH ×3 (10:52→20:30)
[2019-04-07] MEDS: DAPTOmycin 375 MG in SYRINGE 0 ML IV SCH (12:53)
--- NOTE | 2019-04-07 12:56 | Surgery Consultation ---
Date of Consultation April 07, 2019 Assessment & Plan (1) Furuncle: Site in her left posterior neck appears to be an abscess she is very tender and I do not think to be adequately drained under local anesthesia at the bedside. We will plan for vision and drainage and culture tomorrow morning. She has eaten her full line and we would have to wait 8 hours. We will continue her current antibiotics. History of Present Illness Attending Physician: Radu Ulloa MD, PhD, [facility] History of Present Illness I was asked to see the patient for what appears to be a posterior left neck abscess. Patient was admitted to the hospital with shortness of breath, just of heart failure and COPD. She has a history of bullous pemphigoid steroids. Currently she is sitting in her bed and has finished her complete lunch. She currently is on doxycycline. Allergies Allergy/AdvReac Type Severity Reaction Status Date / Time Penicillins Allergy Intermediate RASH Verified 04/02/19 15:09 Home Medications Home Medications Medication Instructions Recorded Confirmed Type Lactobacillus acidoph-L.bulgar 1 tab PO TID 11/05/18 04/02/19 History [Lactinex] acetaminophen [Tylenol] 650 mg PO Q6 PRN MDD 3G 11/05/18 04/02/19 History albuterol sulfate [ProAir HFA] 2 puff INHALATION Q4H PRN 11/05/18 04/02/19 History aspirin [Aspir-81] 81 mg PO DAILY 11/05/18 04/02/19 History atorvastatin 40 mg PO DAILY 11/05/18 04/02/19 History bisacodyl 10 mg ME DAILY PRN 11/05/18 04/02/19 History cholecalciferol (vitamin D3) 2,000 unit PO DAILY 11/05/18 04/02/19 History clopidogrel 75 mg PO DAILY 11/05/18 04/02/19 History yajmweogxlh-ixnkluoss-ihusbqbq 1 inh INHALATION DAILY 11/05/18 04/02/19 History [Trelegy Ellipta] furosemide 20 mg PO DAILY 11/05/18 04/02/19 History gabapentin 100 mg PO TID 11/05/18 04/02/19 History insulin glargine 45 unit SUBCUT Q12 11/05/18 04/02/19 History insulin lispro 0 units SUBCUT UD 11/05/18 04/02/19 History insulin lispro [Humalog U-100 35 unit SUBCUT DAILY 11/05/18 04/02/19 History Insulin] ipratropium-albuterol 3 ml INHALATION Q6 PRN 11/05/18 04/02/19 History levothyroxine 200 mcg PO DAILY 11/05/18 04/02/19 History niacinamide 500 mg PO TID 11/05/18 04/02/19 History pantoprazole 20 mg PO DAILY 11/05/18 04/02/19 History potassium chloride [Klor-Con M20] 20 meq PO DAILY 11/05/18 04/02/19 History ascorbic acid (vitamin C) 500 mg PO BID 01/15/19 04/02/19 History clobetasol 1 applic TOPICAL AMPM 01/15/19 04/02/19 History insulin lispro [Humalog U-100 20 unit SUBCUT AC 01/15/19 04/02/19 History Insulin] magnesium hydroxide [Milk of 30 ml PO DIRECTED PRN 01/15/19 04/02/19 History Magnesia] multivitamin 1 tab PO DAILY 01/15/19 04/02/19 History nystatin 1 applic TOPICAL TID 01/15/19 04/02/19 History prednisone 30 mg PO DAILY 01/15/19 04/02/19 History sodium phosphates [Fleet Enema] 118 ml ME DAILY PRN 01/15/19 04/02/19 History Patient History Medical History Coronary atherosclerosis of [place] coronary vessel (Chronic 01/05/13) " STEMI November of 2011 treated at [facility] with a PCI to the RCA" Diastolic CHF (Chronic) COPD (chronic obstructive pulmonary disease) (Chronic) Chronic respiratory failure with hypoxia (Chronic) Tobacco use disorder (Chronic) Chronic obstructive lung disease (Chronic 01/05/13) Cirrhosis of liver (Chronic) "autoimmune, 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" DM type 2 (diabetes mellitus, type 2) (Chronic) Morbid obesity with BMI of 40.0-44.9, adult (Chronic) Hypothyroidism (Chronic) Peripheral vascular disease (Chronic) Acute hyperglycemia (Inactive) Surgical History History of hysterectomy (Chronic 01/05/13) S/P tonsillectomy and adenoidectomy (Chronic) S/P cholecystectomy (Chronic) S/P coronary artery stent placement (Chronic) "11/2011 ISABEL to RCA" Family History Other Diabetes Heart disease Hypertension Social History Preferred Language: [place] 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 She appears to be breathing comfortably with no distress skin has multiple dry eschar. Results & Data Vital Signs (Past 12 Hours) Vital Signs Temp Pulse Pulse Resp BP Pulse Ox 04/07/19 12:00 37.0 C 60 20 119/74 96 04/07/19 08:00 53 L 04/07/19 07:00 36.4 C L 57 L 20 106/68 97 04/07/19 04:37 36.6 C 55 L 20 146/78 H 94
--- NOTE | 2019-04-07 16:25 | Hospitalist Progress Note ---
Date of Service April 07, 2019 Assessment & Plan (1) CHF exacerbation: 58 y/o female with a history of morbid obesity, COPD, current smoker, chronic hypoxic and hypercapnic resp failure, GEETHA and obesity hypoventilation syndrome on BiPAP, DM II, CAD, chronic diastolic CHF, autoimmune cirrhosis, HTN, HLD, hyponatremia, hypothyroidism, PVD who presents from [facility] admitted on Apr 02 2019 with with progressive SOB associated with moderate respiratory distress requiring BiPAP. Initial labs are notable for hyponatremia, mild hyperkalemia and an elevated troponin. An initial ABG demonstrated pH 7.27/PaCO2 99/PaO2 70. An EKG does not support acute ischemia. A CTA did not demonstrate PEs and is consistent with pulmonary edema and BL pleural effusions a right lower lobe 1.4 cm nodular opacity possibly inflammatory. Acute on chronic diastolic CHF -could be secondary to chronic prednisone use, possibly dietary related. She was initially provided with NTG, IV Lasix and BiPAP and admitted to the ICU. She was transferred out of the ICU the next day after significant amount of diuresis was accomplished. Continues to diurese copious amounts of urine and still has a lot of peripheral edema. She has diuresed 19 L net negative of fluid cont significantly improved with her respiratory status. creatinine remains perfectly normal still has significant peripheral edema on examination but is quite difficult to tell due to morbid obesity/body habitus, still has plenty of fluid to diuresis Echocardiogram here with grade 2 diastolic dysfunction, preserved EF -Continue IV diuresis with Lasix 20 mg IV every 12 hours -Continue Hyde for accurate I's and O's -Continue strict I's and O's, daily weights, low-sodium diet, fluid restriction (2) Acute on chronic respiratory failure with hypoxia and hypercapnia: Secondary to acute CHF and COPD exacerbation as above-improved, remains on nasal cannula and BiPAP at nighttime which is her baseline Had elevated PaCO2 and low pH on admission which is now improved back to baseline Continue treating with diuresis, supplemental O2, BiPAP, prednisone, nebulizers (3) Coronary atherosclerosis of [place] coronary vessel: With mildly elevated trop here at 0.19/0.47/0.16 consistent with myocardial demand ischemia in the setting of CHF exacerbation. Echocardiogram showed no WMAs She has known history of CAD status post PTCI in the past ECG here without ischemic changes Cont ASA, Plavix, statin Notably not on a beta-phuong possibly due to low resting heart rate (4) COPD (chronic obstructive pulmonary disease): With acute on chronic hypoxic and hypercarbic respiratory failure as above. Much improved, less wheezing today continue to treat with nebs, 02, and prednisone 50 mg daily will eventually taper back to home dose of prednisone 30 mg daily which is actually being used for her bullous pemphigoid Was placed on IV hydrocortisone for low blood pressures for stress dose steroids-blood pressure is now improved, will discontinue Initially received cefepime and vancomycin on admission, now on doxycycline 100 mg p.o. 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 Appears compensated at this time AST and ALT mildly elevated upon admission Follow LFTs in the morning (7) DM type 2 (diabetes mellitus, type 2): Hemoglobin A1c 8.3% in 01/2019-uncontrolled Is on basal bolus insulin both here and at home With hyperglycemia here secondary to corticosteroids and then with hypoglycemia- this is now improved Given the we are discontinuing the IV hydrocortisone today, will watch for recurrent hypoglycemia Continue Lantus 50 units twice daily and sliding scale and continue to watch carefully (8) Hypothyroidism: TSH is normal Continue home levothyroxine (9) GEETHA treated with BiPAP: Is supposed to be using BiPAP 12/5 nightly as per outpatient pulmonology/sleep medicine notes-apparently she is quite noncompliant with this as an outpatient Continue BiPAP for here at bedtime (10) Bullous pemphigoid: This was diagnosed approximately 2 years ago but apparently she was hospitalized at [facility] in [place] in December 2018 after being transferred from our ER down there for an acute flare with diffuse bullae. She remains on prednisone 30 mg daily as home dose, niacinamide 500 mill grams p.o. 3 times daily Appears to be in healing stages with innumerable scabs all over (11) Pulmonary nodule: Right lower lobe 1.4 cm nodular opacity seen on CT of the chest She is a current smoker and is at high risk for lung cancer Requires follow-up in 3 months to ensure resolution (12) Hypomagnesemia: Resolved after replacement Continue oral magnesium oxide daily (13) Hyponatremia: Has a history of chronic hyponatremia with baseline around 127 in 2018 - has worsened on admission. Is likely due to fluid overload in the setting of CHF. Sodium was 122 on admission and now is greatly improved with diuresis up to 130 Follow BMP in the morning Continue diuresis (14) Elevated troponin: Myocardial demand ischemia as above (15) Hypokalemia: Potassium mildly low today secondary to loop diuretic use Replaced with oral potassium as needed and increased daily standing dose to 20 mEq p.o. twice daily Follow BMP in the morning (16) GERD (gastroesophageal reflux disease): Stable, Continue home Photonix (17) Neuropathy: Stable, Continue home gabapentin (18) DVT prophylaxis: Heparin SQ Disposition-continued stay on medical floor with telemetry for continued diuresis Back to skilled nursing when volume status is optimized (19) Furuncle: Possible forming abscess, patient was on doxycycline , after discussing with pharmacist, will give Dapto IV instead of Vanco because patient is morbid obesity is difficult to reach for the therapeutic level, will follow up, surgeon consult if needed, no capacity dressing ointment application Subjective Sitting up in bed, eating lunch, generally feeling good, skin rashes and different stage crusted blister in the face and upper chest area still with some red skin denies itching, no obvious open wound Left neck pain is minimal better , however still have 8 out of 10 pain, local hot and tender to touch Review of Systems Review of Systems: All systems reviewed & are unremarkable except as noted in HPI & below Results & Data Vital Signs (Past 12 Hours) Vital Signs Temp Pulse Pulse Resp BP BP Pulse Ox 04/07/19 15:26 36.6 C 60 22 117/70 98 04/07/19 12:00 37.0 C 60 20 119/74 96 04/07/19 08:00 53 L 04/07/19 07:00 36.4 C L 57 L 20 106/68 97 04/07/19 04:37 36.6 C 55 L 20 146/78 H 94
[2019-04-07] MEDS: MAGNESIUM OXIDE 400 MG TAB PO SCH (20:32)
--- NOTE | 2019-04-08 06:39 | History & Physical Bridge Note ---
Date of Service April 08, 2019 History & Physical Bridge Note I have examined the patient, reviewed the History & Physical and in the interval since the performance of the History & Physical I have noted the following changes of clinical significance: no changes noted for OR today- Incision/ drainage of neck abscess
[2019-04-08 07:24] LABS: Partial Thromboplastin Time 27.1 Seconds (21.0-31.0)
[2019-04-08 07:45] LABS: Creatinine Clr Calc Pharmacy 195.2 ml/min; Est GFR (African American) 128.1; Est GFR (Non-African American) 110.5
[2019-04-08] MEDS: POTASSIUM CHLORIDE 20 MEQ TABCR PO SCH ×2 (09:22→21:49)
[2019-04-08] MEDS: ASCORBIC ACID 500 MG TAB PO SCH ×2 (09:22→21:50)
[2019-04-08] MEDS: PANTOprazole 40 MG TAB PO SCH (09:23)
[2019-04-08] MEDS: CHOLECALCIFEROL 1,000 UNITS TAB PO SCH (09:23)
[2019-04-08] MEDS: ATORVASTATIN 40 MG TAB PO SCH (09:23)
[2019-04-08] MEDS: GABAPENTIN 100 MG CAP PO SCH ×3 (09:23→21:50)
[2019-04-08] MEDS: LEVOTHYROXINE SODIUM 200 MCG TABLET PO SCH (09:23)
[2019-04-08] MEDS: ASPIRIN 81 MG ECTAB PO SCH (09:23)
[2019-04-08] MEDS: CLOPIDOGREL BISULFATE 75 MG TAB PO SCH (09:23)
[2019-04-08] MEDS: predniSONE 10 MG TABLET PO SCH (09:23)
[2019-04-08] MEDS: acetaZOLAMIDE 250 MG TAB PO SCH ×2 (09:23→17:27)
[2019-04-08] MEDS: BACITRACIN OINT 15 GM TUBE EXT SCH ×2 (09:24→21:48)
[2019-04-08] MEDS: INSULIN ASPART 100 UNITS/ML 3 ML PEN SC SCH ×4 (09:29→21:50)
[2019-04-08] MEDS: NYSTATIN POWDER 15GM BTL EXT SCH ×3 (09:30→21:49)
[2019-04-08] MEDS: FUROSEMIDE 20 MG in SYRINGE 0 ML IV SCH ×2 (09:35→21:49)
[2019-04-08] MEDS: INSULIN GLARGINE SOLOSTAR 100 UNITS/ML 3 ML PEN SC SCH ×2 (09:36→21:49)
[2019-04-08] MEDS: HEPARIN SODIUM (PORCINE) 7,500 UNITS in SYRINGE 0 ML SQ SCH (09:39)
[2019-04-08] MEDS ORDERED: ACETAMINOPHEN 325 MG TAB PO PRN (09:56)
[2019-04-08] MEDS ORDERED: BUPIVACAINE 0.5 % 5 MG/1 ML MPF 30ML VIAL ONE (11:37)
[2019-04-08] MEDS ORDERED: PROPOFOL IV EMULSION 10 MG/ML 20 ML VIAL IV ONE (11:40)
[2019-04-08] MEDS ORDERED: MIDAZOLAM HCL 1 MG/ML 2ML VIAL ONE (11:40)
[2019-04-08] MEDS ORDERED: LIDOCAINE HCL 2% 2 ML VIAL/AMP(20MG/ML) INFIL ONE (11:40)
[2019-04-08] MEDS ORDERED: fentaNYL citrate 100 MCG/2 ML VIAL ONE (11:40)
[2019-04-08] MEDS ORDERED: KETAMINE HCL INJ 50 MG/ML 10 ML VIAL ONE (11:41)
[2019-04-08] MEDS ORDERED: LIDOCAINE HCL 1% 20 ML VIAL ONE (11:44)
[2019-04-08] MEDS ORDERED: ePHEDrine sulfate 50 MG/ML AMP IV PRN (11:50)
[2019-04-08] MEDS ORDERED: ATROPINE SULFATE 0.1 MG/ML 10ML SYR IV PRN (11:50)
--- NOTE | 2019-04-08 11:50 | Anesthesiology Consultation ---
Date of Service April 08, 2019 Assessment & Plan Chart Review Chart Review: Acceptable Risk for Surgery and Patient NOT seen in Pre Admission Testing Consults Requested none ASA ASA4 Proposed Anesthesia Anesthesia Type: MAC Risk / Benefits Reviewed With: PT / POA / Parent / Guardian, Accepts Plan and Informed Consent Obtained History Surgery Operation Date: 04/08/19 10:00 Proposed Procedures p Incision and Drainage General - Jaya Flowers MD, FACS Height/Weight Height: 5 ft 3 in Weight: 145.9 kg Allergies Allergy/AdvReac Type Severity Reaction Status Date / Time Penicillins Allergy Intermediate RASH Verified 04/02/19 15:09 Medications Home Medications Medication Instructions Recorded Confirmed Last Taken Lactobacillus acidoph-L.bulgar 1 tab PO TID 11/05/18 04/02/19 04/02/19 [Lactinex] acetaminophen [Tylenol] 650 mg PO Q6 PRN MDD 3G 11/05/18 04/02/19 01/03/19 albuterol sulfate [ProAir HFA] 2 puff INHALATION Q4H PRN 11/05/18 04/02/19 Unknown aspirin [Aspir-81] 81 mg PO DAILY 11/05/18 04/02/19 04/02/19 atorvastatin 40 mg PO DAILY 11/05/18 04/02/19 04/02/19 bisacodyl 10 mg ID DAILY PRN 11/05/18 04/02/19 Unknown cholecalciferol (vitamin D3) 2,000 unit PO DAILY 11/05/18 04/02/19 04/02/19 clopidogrel 75 mg PO DAILY 11/05/18 04/02/19 04/02/19 kvczosksajb-qknwrxsuj-gdnwcctd 1 inh INHALATION DAILY 11/05/18 04/02/19 04/02/19 [Trelegy Ellipta] furosemide 20 mg PO DAILY 11/05/18 04/02/19 04/02/19 gabapentin 100 mg PO TID 11/05/18 04/02/19 04/02/19 insulin glargine 45 unit SUBCUT Q12 11/05/18 04/02/19 04/02/19 insulin lispro 0 units SUBCUT UD 11/05/18 04/02/19 04/02/19 insulin lispro [Humalog U-100 35 unit SUBCUT DAILY 11/05/18 04/02/19 04/02/19 Insulin] ipratropium-albuterol 3 ml INHALATION Q6 PRN 11/05/18 04/02/19 04/02/19 levothyroxine 200 mcg PO DAILY 11/05/18 04/02/19 04/02/19 niacinamide 500 mg PO TID 11/05/18 04/02/19 04/02/19 pantoprazole 20 mg PO DAILY 11/05/18 04/02/19 04/02/19 potassium chloride [Klor-Con M20] 20 meq PO DAILY 11/05/18 04/02/19 04/02/19 ascorbic acid (vitamin C) 500 mg PO BID 01/15/19 04/02/19 04/02/19 clobetasol 1 applic TOPICAL AMPM 01/15/19 04/02/19 01/14/19 insulin lispro [Humalog U-100 20 unit SUBCUT AC 01/15/19 04/02/19 04/02/19 Insulin] magnesium hydroxide [Milk of 30 ml PO DIRECTED PRN 01/15/19 04/02/19 Unknown Magnesia] multivitamin 1 tab PO DAILY 01/15/19 04/02/19 04/02/19 nystatin 1 applic TOPICAL TID 01/15/19 04/02/19 04/02/19 prednisone 30 mg PO DAILY 01/15/19 04/02/19 04/02/19 sodium phosphates [Fleet Enema] 118 ml ID DAILY PRN 01/15/19 04/02/19 Unknown Active Medications Generic Name Dose Route Start Last Admin Trade Name Freq PRN Reason Stop Dose Admin Acetazolamide 250 mg 04/06/19 09:00 04/08/19 09:23 Diamox PO 05/06/19 08:59 250 mg BID17 CHELSEA Administration Ascorbic Acid 500 mg 04/04/19 09:00 04/08/19 09:22 Vitamin C PO 05/04/19 08:59 500 mg BID CHELSEA Administration Aspirin 81 mg 04/03/19 09:00 04/08/19 09:23 Ecotrin Ectab PO 05/03/19 08:59 81 mg DAILY CHELSEA Administration Atorvastatin Calcium 40 mg 04/03/19 09:00 04/08/19 09:23 Lipitor PO 05/03/19 08:59 40 mg DAILY CHELSEA Administration Bacitracin 1 appln 04/06/19 21:00 04/08/19 09:24 Bacitracin EXT 05/06/19 20:59 1 appln Q12 CHELSEA Administration Clopidogrel Bisulfate 75 mg 04/03/19 09:00 04/08/19 09:23 Plavix PO 05/03/19 08:59 75 mg DAILY CHELSEA Administration Gabapentin 100 mg 04/02/19 21:00 04/08/19 09:23 Neurontin PO 05/02/19 20:59 100 mg TID CHELSEA Administration Heparin Sodium (Porcine) 7,500 0.75 mls @ 0 mls/min 04/03/19 14:00 04/08/19 09:39 units/ Syringe SQ 05/03/19 13:59 1 mls/min TID CHELSEA Administration Furosemide 20 mg/ Syringe 2 mls @ 4 mls/min 04/03/19 21:00 04/08/19 09:35 IV 05/03/19 20:59 4 mls/min BID CHELSEA Administration Daptomycin 375 mg/ Syringe 7.5 mls @ 3.75 mls/min 04/06/19 13:00 04/07/19 12:53 IV 04/16/19 12:59 3.75 mls/min Q24H CHELSEA Administration Protocol Insulin Aspart 0 units 04/03/19 23:01 04/08/19 09:29 Novolog Flexpen SC 05/03/19 00:00 Not Given ACHS CHELSEA Insulin Glargine 50 units 04/04/19 09:00 04/08/19 09:36 Lantus Solostar Pen SC 05/04/19 08:59 35 units BID CHELSEA Administration Levothyroxine Sodium 200 mcg 04/03/19 06:30 04/08/19 09:23 Synthroid PO 05/03/19 06:29 200 mcg DAILYBB CHELSEA Administration Magnesium Oxide 400 mg 04/03/19 21:00 04/07/19 20:32 Mag-Ox PO 05/03/19 20:59 400 mg HS CHELSEA Administration Miscellaneous 1 ea 04/03/19 00:00 04/08/19 08:49 Order Awaiting Action N/A 05/03/19 00:00 Not Given QS CHELSEA Miscellaneous 15 - 30 gm 04/03/19 08:45 04/04/19 07:48 Carbohydrates For Hypoglycemia PO 05/03/19 08:44 15 gm UD PRN Administration Hypoglycemia Treatment Nystatin 1 appln 04/02/19 21:00 04/08/19 09:30 Mycostatin EXT 05/02/19 20:59 1 appln TID CHELSEA Administration Pantoprazole Sodium 40 mg 04/03/19 09:00 04/08/19 09:23 Protonix PO 05/03/19 08:59 40 mg DAILY CHELSEA Administration Potassium Chloride 20 meq 04/05/19 21:00 04/08/19 09:22 Klor-Con M20 PO 05/05/19 20:59 20 meq BID CHELSEA Administration Prednisone 40 mg 04/04/19 09:00 04/08/19 09:23 Prednisone PO 05/10/19 08:59 40 mg DAILY CHELSEA Administration Taper Vitamin D 2,000 units 04/04/19 09:00 04/08/19 09:23 Vitamin D3 PO 05/04/19 08:59 2,000 units DAILY CHELSEA Administration NPO Date Last Intake of Fluids: 04/07/19 Time Last Intake of Fluids: 23:00 Date Last Intake of Solids: 04/07/19 Time Last Intake of Solids: 23:00 Past Medical History Medical History Coronary atherosclerosis of [place] coronary vessel (Chronic 01/05/13) " STEMI November of 2011 treated at [facility] with a PCI to the RCA" Diastolic CHF (Chronic) COPD (chronic obstructive pulmonary disease) (Chronic) Chronic respiratory failure with hypoxia (Chronic) Tobacco use disorder (Chronic) Chronic obstructive lung disease (Chronic 01/05/13) Cirrhosis of liver (Chronic) "autoimmune, 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" DM type 2 (diabetes mellitus, type 2) (Chronic) Morbid obesity with BMI of 40.0-44.9, adult (Chronic) Hypothyroidism (Chronic) Peripheral vascular disease (Chronic) Acute hyperglycemia (Inactive) Exercise / Class Metabolic Activity III < 4 Walking/Shop/Light housework Past Family History Family History Other Diabetes Heart disease Hypertension Past Surgical History Surgical History History of hysterectomy (Chronic 01/05/13) S/P tonsillectomy and adenoidectomy (Chronic) S/P cholecystectomy (Chronic) S/P coronary artery stent placement (Chronic) "11/2011 ISABEL to RCA" Past Anesthesia History No Hx of Anesthesia Complications and No Family Hx of Anesthesia Complications History of PONV No Hx of PONV and No Hx of Motion Sickness Social History Smoking Status: Current every day smoker Physical Exam Vital Signs Last Vital Signs Temp 36.5 C 04/08/19 07:00 Pulse 60 04/08/19 07:37 Resp 22 04/08/19 07:00 BP 129/73 04/08/19 07:00 Pulse Ox 100 04/08/19 07:00 Constitutional + morbidly obese ENMT Mouth: + edentulous and + small oral opening Thyromental Distance: < 3.5 Finger Breadths Mallampati Class: III Neck trachea midline, + short neck and + thick neck; neck extension not limited Respiratory + uses accessory muscles Auscultation: + diminished lung sounds Cardiovascular Rate/Rhythm: regular rate and regular rhythm Heart Sounds: no murmur Vessels: no carotid bruit Musculoskeletal Spine: normal cervical ROM Neurologic moves all extremities Motor/Sensory: + sensory deficit (feet) Psychiatric Orientation: alert and oriented x 3 Testing Electrocardiogram Date: 04/03/19 Findings: + NSR @ (at 72;low voltage) Chest X-Ray Date: 04/03/19 Findings: + cardiomegaly (moderate) and + pulmonary vascular congestion Echocardiogram Date: 04/02/19 EF: 55 LV Function: normal Other Findings: + diastolic dysfunction (grade 2) LV-borderline dilated Laboratory Results 04/05/19 07:32 04/08/19 06:53 PT 9.8 Seconds (9.0-12.0) 04/02/19 13:10 INR 1.0 (0.9-1.1) 04/02/19 13:10 APTT 27.1 Seconds (21.0-31.0) 04/08/19 06:53 Urine Color Yellow 04/02/19 16:43 Urine Appearance Clear (Clear) 04/02/19 16:43 Urine pH 5.5 (4.5-7.5) 04/02/19 16:43 Ur Specific [place] 1.029 (1.000-1.030) 04/02/19 16:43 Urine Protein 1+ (Negative) H 04/02/19 16:43 Urine Glucose (UA) Negative (Negative) 04/02/19 16:43 Urine Ketones Negative (Negative) 04/02/19 16:43 Urine Nitrite Negative (Negative) 04/02/19 16:43 Ur Leukocyte Esterase Negative (Negative) 04/02/19 16:43 Urine WBC (Auto) 1-5 /hpf (0-5) 04/02/19 16:43 Urine RBC (Auto) 0-4 /hpf (0-4) 04/02/19 16:43 U Hyaline Cast (Auto) 1-5 /lpf (0-5) 04/02/19 16:43 U Epithel Cells (Auto) 10-20 /lpf (0-5) H 04/02/19 16:43 Urine Bacteria (Auto) Negative (Negative) 04/02/19 16:43 04/02/19 14:56 Blood Culture - Preliminary Blood No growth to date. 04/02/19 14:30 Blood Culture - Preliminary Blood No growth to date. 04/08/19 07:22 POC Glucose 110 H
--- NOTE | 2019-04-08 12:25 | Operative Report ---
Post Operative Report Pre & Post Diagnosis Operation Date: 04/08/19 10:00 Pre-Op Diagnosis: Left neck abscess Post-Op Diagnosis: same Procedure Operation Date: 04/08/19 10:00 Actual Procedures p Incision and Drainage Left Neck(Left) Lt neck abscess - Jaya Flowers MD, FACS Surgeon Jaya Flowers MD, FACS Waybill Clerk Ramon Bennett Estimated Blood Loss 30 Findings Consistent with Post-Op Diagnosis Specimens culture Description of Procedure see dictation I attest to the content of the Intraoperative Record and any orders documented therein. Any exceptions are noted below.
[2019-04-08] MEDS ORDERED: ACETAMINOPHEN 1,000 MG/100 ML VIAL IV ONE (12:30)
[2019-04-08] MEDS ORDERED: PROMETHAZINE HCL 25 MG in SODIUM CHLORIDE 0.9% 50 ML IV PRN (13:22)
[2019-04-08] MEDS ORDERED: ONDANSETRON INJ 2 MG/ML 2 ML VIAL IV PRN (13:22)
[2019-04-08] MEDS ORDERED: PROMETHAZINE HCL 12.5 MG in SODIUM CHLORIDE 0.9% 50 ML IV PRN (13:22)
[2019-04-08] MEDS ORDERED: ACETAMINOPHEN 1,000 MG/100 ML VIAL IV PRN (13:22)
[2019-04-08] MEDS ORDERED: HYDROmorphone INJ 0.5 MG/0.5 ML SYR IV PRN (13:22)
[2019-04-08] MEDS ORDERED: HYDROmorphone INJ 1 MG/ML SYRINGE IV PRN (13:22)
[2019-04-08] MEDS: DAPTOmycin 375 MG in SYRINGE 0 ML IV SCH (13:41)
--- NOTE | 2019-04-08 13:44 | Anesthesiology Progress Note ---
Date of Service April 08, 2019 Anesthesia Post Procedure Vital Signs Vital Signs: Temp Pulse Pulse Pulse Resp BP BP 04/08/19 13:15 56 L 22 152/57 H 04/08/19 13:05 36.3 C L 56 L 21 142/56 H 04/08/19 12:55 60 24 151/63 H 04/08/19 12:45 64 17 148/52 H 04/08/19 12:37 36.8 C 66 20 123/54 L 04/08/19 07:37 60 04/08/19 07:00 36.5 C 59 L 22 129/73 04/08/19 04:22 36.5 C 57 L 18 156/79 H 04/08/19 00:00 59 L 04/07/19 23:00 36.3 C L 57 L 18 124/49 L 04/07/19 22:14 68 21 04/07/19 19:18 37.0 C 64 18 90/55 L 04/07/19 16:00 60 04/07/19 15:26 36.6 C 60 22 117/70 Pulse Ox 04/08/19 13:15 95 04/08/19 13:05 95 04/08/19 12:55 95 04/08/19 12:45 96 04/08/19 12:37 98 04/08/19 07:37 04/08/19 07:00 100 04/08/19 04:22 96 04/08/19 00:00 04/07/19 23:00 98 04/07/19 22:14 98 04/07/19 19:18 95 04/07/19 16:00 04/07/19 15:26 98 Pain Intensity Chest: Pain Intensity: 0 Bilateral Leg: Pain Intensity: 9 Transfer of Care Handoff Completed per policy Notes Mental Status: alert / awake / arousable Patient Amnestic to Procedure: Yes Nausea / Vomiting: adequately controlled Pain: adequately controlled Airway Patency, RR, SpO2: stable & adequate BP & HR: stable & adequate Hydration State: stable & adequate Anesthetic Complications: no major complications apparent
[2019-04-08] MEDS ORDERED: SODIUM CHLORIDE 0.9% 1000ML 1,000 ML IV SCH (13:45)
--- NOTE | 2019-04-08 17:34 | Hospitalist Progress Note ---
Date of Service April 08, 2019 Assessment & Plan (1) Furuncle: Left-sided neck abscess noted on 04/07. Underwent I&D with Dr. Flowers on 04/08 who had concern for Staph infection. Likely exacerbated by her uncontrolled DM and ongoing steroid requirements. - Continue daptomycin IV - Follow cultures (2) CHF exacerbation: Presented from [facility] on 04/02[facility]2019 with progressive shortness of breath associated with moderate respiratory distress requiring BiPAP. Acute exacerbation of chronic diastolic heart failure. Echo on - She was initially admitted to the ICU, then transferred out within 1 day after diuresis. - As of 04/08, she has diuresed 29 L per computer and is down 20 kg. - Continue Lasix 20 mg IV Q12h - Continue Hyde for accurate I's and O's - Continue strict I's and O's, daily weights, low-sodium diet, fluid restriction - Monitor Cr (3) Acute on chronic respiratory failure with hypoxia and hypercapnia: Secondary to acute CHF exacerbation. - Remains on nasal cannula and BiPAP at nighttime which is her baseline (4) Coronary atherosclerosis of [place] coronary vessel: With mildly elevated trop here at 0.19/0.47/0.16 consistent with myocardial demand ischemia in the setting of CHF exacerbation. - She has known history of CAD status post PCI in the past - Cont ASA, Plavix, statin - Notably not on a beta-phuong possibly due to low resting heart rate (5) COPD (chronic obstructive pulmonary disease): With acute on chronic hypoxic and hypercarbic respiratory failure as above. 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 Appears compensated at this time. AST and ALT mildly elevated upon admission. - Follow LFTs (7) DM type 2 (diabetes mellitus, type 2): Hemoglobin A1c 8.3% in 01/2019. - Continue basal bolus insulin both here and at home - Glycemic pharmacist consult (8) Hypothyroidism: TSH was normal this admission. - Continue home levothyroxine (9) GEETHA treated with BiPAP: Is supposed to be using BiPAP 12/5 cmH20 nightly as per outpatient pulmonology/sleep medicine notes. Apparently she is quite noncompliant with this as an outpatient. - Continue BiPAP for here at bedtime (10) Bullous pemphigoid: This was diagnosed approximately 2 years ago but apparently she was hospitalized at [facility] in [place] in December 2018 after being transferred from our ER down there for an acute flare with diffuse bullae. Appears to be in healing stages with innumerable scabs all over. - Continue prednisone 30 mg daily as home dose, niacinamide 500 mill grams p.o. 3 times daily (11) Pulmonary nodule: Right lower lobe 1.4 cm nodular opacity seen on CTA chest on 04/02/2019. She is a current smoker and is at high risk for lung cancer. - Requires follow-up in 3 months to ensure resolution (12) Hyponatremia: Has a history of chronic hyponatremia with baseline around 127 in 2018 - was worsen on admission. Is likely due to fluid overload in the setting of CHF. Sodium was 122 on admission and now is greatly improved with diuresis up to 132. - Follow BMP in the morning - Continue diuresis (13) GERD (gastroesophageal reflux disease): Stable. - Continue home Protonix (14) Neuropathy: Stable. - Continue home gabapentin (15) Tobacco use disorder: Counseled on smoking cessation (16) DVT prophylaxis: Lovenox 40mg subcut daily Subjective Having left-sided neck pain from the abscess. Reports no fevers/chills, chest pain, shortness of breath, abdominal pain, nausea, or vomiting. Review of Systems Review of Systems: All systems reviewed & are unremarkable except as noted in HPI & below Physical Exam Constitutional: + morbidly obese; no acute distress Eyes: PERRL, conjunctivae normal, anicteric sclerae Neck: trachea midline, no thyromegaly + anterior neck swelling (Left-sided) and + thick neck Respiratory: normal respiratory effort Auscultation: + diminished lung sounds (Diffusely); no wheezes Cardiovascular: RRR, no murmur, no edema Rate/Rhythm: regular rate and regular rhythm Extremities: + edema (2+ lower extremity edema to the thighs) Gastrointestinal (Abdomen): normal bowel sounds, soft, nontender, no hepatosplenomegaly Musculoskeletal: Extremities: no cyanosis and no clubbing Skin: no rashes, warm and dry + rash (Diffuse erythematous macular rash with bullae and excoriations on face trunk, arms and legs) Neurologic: moves all extremities and awake; no focal motor deficits Psychiatric: A+Ox3, euthymic affect Orientation: alert, oriented to person, oriented to place and cooperative Genitourinary: normal external appearance (Hyde catheter in place draining clear yellow urine) Results & Data Vital Signs (Past 12 Hours) Vital Signs Temp Pulse Pulse Pulse Resp BP BP 04/08/19 16:04 65 04/08/19 16:00 36.8 C 61 22 104/55 L 04/08/19 15:00 37.2 C 63 22 91/53 L 04/08/19 13:51 36.7 C 61 22 153/72 H 04/08/19 13:15 56 L 22 152/57 H 04/08/19 13:05 36.3 C L 56 L 21 142/56 H 04/08/19 12:55 60 24 151/63 H 04/08/19 12:45 64 17 148/52 H 04/08/19 12:37 36.8 C 66 20 123/54 L 04/08/19 07:37 60 04/08/19 07:00 36.5 C 59 L 22 129/73 Pulse Ox 04/08/19 16:04 04/08/19 16:00 93 04/08/19 15:00 93 04/08/19 13:51 96 04/08/19 13:15 95 04/08/19 13:05 95 04/08/19 12:55 95 04/08/19 12:45 96 04/08/19 12:37 98 04/08/19 07:37 04/08/19 07:00 100
[2019-04-08] MEDS ORDERED: PHARMACY GLYCEMIC MGMT CONSULT PRN (18:08)
--- NOTE | 2019-04-08 20:09 | Operative Report ---
DATE OF OPERATION: 04/08/2019 NAME OF OPERATION: Incision and drainage with culture of left neck abscess. PREOPERATIVE DIAGNOSIS: Left neck abscess. POSTOPERATIVE DIAGNOSIS: Left neck abscess. STAFF SURGEON: Jaya Flowers MD ENGINEERING SPECIALIST TECHNICIAN: Ramonita Bennett PA-C ANESTHESIA: A 1% plain lidocaine with sedation. DESCRIPTION OF PROCEDURE: The patient was brought in the Operating Room and placed on the Operating Room table in supine position. She had to be elevated at the head some for her breathing. Her head was tilted to the right to expose her left posterior neck where she had a draining sinus tract with induration and erythema anterior and superior to this area. Using 1% plain lidocaine, after appropriate prepping and draping, the area was anesthetized. Incision was made deeply down into the tissue. It was necrotic deep. The site was cultured. The tract did extend medially and anteriorly and also superiorly. It was not one open continuous abscess cavity, there were small branches. It was debrided and opened as much as possible. I did have to make additional incision superiorly and medially and then the site was packed with half inch Nu Gauze packing and then a dressing applied. The patient was transferred to Recovery Room in a stable condition. My assistant federal public defender helped with prepping, draping, incision and drainage of the wound and placement of the dressing. I attest to the content of the Intraoperative Record and any orders documented therein. Any exception s are noted below.
[2019-04-08] MEDS: TRIAMCINOLONE ACET 0.025% CR 15 GM TUBE EXT SCH (21:49)
[2019-04-09] MEDS ORDERED: INSULIN ASPART 100 UNITS/ML 3 ML PEN SC SCH (02:00)
--- NOTE | 2019-04-09 05:41 | Progress Note ---
Date of Service April 09, 2019 Assessment & Plan (1) Furuncle: Lt posterior neck abscess- deep- gm stain - gm + cocci nature of abscess- concern for MRSA- ck culture today wound clinic to follow- if further surgery needed- will require general anesthesia- complex debridement Subjective pt stable- drainage Lt neck wound expected Results & Data Vital Signs (Past 12 Hours) Vital Signs Temp Pulse Pulse Resp BP Pulse Ox 04/09/19 04:37 37.0 C 52 L 18 101/55 L 93 04/08/19 23:00 52 L 04/08/19 22:48 72 22 97 04/08/19 19:23 36.9 C 65 22 98/53 L 93
[2019-04-09] MEDS: LEVOTHYROXINE SODIUM 200 MCG TABLET PO SCH (06:10)
[2019-04-09 08:09] LABS: Hematocrit (blood only) 37.1 % (37-47); Hemoglobin 12.1 g/dL (12.0-16.0); Mean Corpuscular Hgb Conc 32.6 g/dL (32-36); Mean Corpuscular Volume 97.4 fL (80-100); Mean Platelet Volume 8.1 fL (7.4-10.4); Platelet Count 190 K/uL (130-400); RDW Coefficient of Variation 13.5 % (11.5-14.5); RDW Standard Deviation 48.1 fL (36.4-46.3); Red Blood Count 3.81 M/uL (4.2-5.4); White Blood Count 9.28 K/uL (4.8-10.8)
[2019-04-09 08:48] LABS: BUN Creatinine Ratio 44.1 (10-20); Calcium 9.4 mg/dl (8.5-10.1); Creatinine Clr Calc Pharmacy 188.2 ml/min; Est GFR (African American) 127.1; Est GFR (Non-African American) 109.7; Magnesium 2.1 mg/dl (1.8-2.4); Potassium 3.7 mmol/L (3.5-5.1)
[2019-04-09] MEDS: CHOLECALCIFEROL 1,000 UNITS TAB PO SCH (08:57)
[2019-04-09] MEDS: BACITRACIN OINT 15 GM TUBE EXT SCH ×2 (08:57→21:22)
[2019-04-09] MEDS: ATORVASTATIN 40 MG TAB PO SCH (08:57)
[2019-04-09] MEDS: PANTOprazole 40 MG TAB PO SCH (08:58)
[2019-04-09] MEDS: ASCORBIC ACID 500 MG TAB PO SCH ×2 (08:58→21:31)
[2019-04-09] MEDS: POTASSIUM CHLORIDE 20 MEQ TABCR PO SCH ×2 (08:59→21:28)
[2019-04-09] MEDS: predniSONE 20 MG TAB PO SCH (08:59)
[2019-04-09] MEDS ORDERED: INSULIN GLARGINE SOLOSTAR 100 UNITS/ML 3 ML PEN SC SCH ×3 (09:00→21:00)
[2019-04-09] MEDS: GABAPENTIN 100 MG CAP PO SCH ×3 (09:00→21:29)
[2019-04-09] MEDS: ENOXAPARIN INJ 40 MG/0.4 ML SYR SQ SCH (09:01)
[2019-04-09] MEDS: INSULIN ASPART 100 UNITS/ML 3 ML PEN SC SCH ×4 (09:02→21:30)
[2019-04-09] MEDS: ASPIRIN 81 MG ECTAB PO SCH (09:03)
[2019-04-09] MEDS: TRIAMCINOLONE ACET 0.025% CR 15 GM TUBE EXT SCH ×2 (09:04→21:28)
[2019-04-09] MEDS: NYSTATIN POWDER 15GM BTL EXT SCH ×3 (09:04→21:29)
--- NOTE | 2019-04-09 09:20 | Pharmacy Report ---
Glycemic Control Consultation - Date of Service April 09, 2019 - Scope Scope: Glycemic Pharmacist consulted by Dr Milton on 04/08/19 for glycemic control and to write orders per [facility] inpatient glycemic control protocol - Objective Weight: 142.8 kg Accuchecks BSG (last 24hrs): 04/08/19 04/08/19 04/08/19 12:50 13:40 16:36 Glucose POC Glucose 135 H 165 H 224 H 04/08/19 04/09/19 04/09/19 20:34 02:00 07:48 Glucose 91 POC Glucose 221 H 128 H 04/09/19 07:53 Glucose POC Glucose 88 Laboratory Data (last 24hrs): 04/09/19 07:48 Potassium 3.7 Carbon Dioxide 33 H Anion Gap 4.0 Creatinine 0.45 L Est Cr Clr Drug Dosing 188.2 - Recent Pertinent Medications Outpatient Anti-diabetic Regimen: * Lantus 45 units BID; Humalog 20 units AC & sliding scale * A1c = 8.3 % 02/23/19 The patient is currently receiving: * Basal insulin: Lantus 35 units am due to NPO status and 50 units pm on 04/08/19 * Correctional Insulin: Novolog Correction per scale ACHS Goal Range: Low 100 mg/dL - High 140 mg/dL Correction Factor: 15 mg/dL/unit * Prandial insulin: Per carb ratio of 1 unit per 5 grams CHO consumed Risk Factors for Insulin Resistance: * Steroids: Prednisone taper (receiving 30mg starting today) * Infection: Daptomycin for SST infection * Recent Surgery: I&D neck abscess * Diet: Type 2 DM/low sodium/fluid restriction - Assessment & Plan Assessment & Plan: ASSESSMENT: * Type 2 diabetic admitted for shortness of breath/resp.distress on steroid. Has SST infection currently treated with Daptomycin. Has been inpatient for since 04/02 but not consulted until 04/08. * PMH: CHF/COPD/Hypothyroidism * Outpatient regimen consists of Lantus 45 units BID and Humalog 20 units AC + sliding scale * Most recent HBA1c: 8.3 * Patient received total of 121 units of insulin yesterday. 85 units of which were basal. Had been NPO 5/12 am but diet started with lunch. Blood sugars appear to trend up through the day. Tightened both correction factor and carb ratio. * Prednisone decreased from 40mg to 30mg today. Will follow and adjust Lantus dosing per readings. PLAN FOR INPATIENT GLYCEMIC CONTROL: * Basal insulin - adjusting * Lantus 40 units BID * Bolus insulin - tightened * NovoLog per scale ACHS or Q6hrs while NPO * Goal Range: Low 100 mg/dL - High 140 mg/dL * Correction Factor: 10 mg/dL/unit * Nutritional / Prandial insulin per carb ratio of 1 unit per 4 grams CHO consumed * Please note that the plan above was derived based on current level of insulin resistance and hospital stress. These recommendations are appropriate for inpatient admission only. Plan of care upon discharge will need to be reassessed to avoid potential outpatient hypo/hyperglycemia. Thank you.
[2019-04-09] MEDS: FUROSEMIDE 20 MG in SYRINGE 0 ML IV SCH ×2 (10:23→21:29)
[2019-04-09] MEDS: DAPTOmycin 375 MG in SYRINGE 0 ML IV SCH (12:23)
--- NOTE | 2019-04-09 13:49 | Hospitalist Progress Note ---
Date of Service April 09, 2019 Assessment & Plan (1) Furuncle: Left-sided neck abscess noted on 04/07. Underwent I&D with Dr. Flowers on 04/08 who had concern for Staph infection. Likely exacerbated by her uncontrolled DM and ongoing steroid requirements. - Continue daptomycin IV - Follow culture from 04/08 - Presently growing S. aureus with sensitivities pending - Will get ID consult for duration given her immune suppression (2) CHF exacerbation: Presented from [facility] on 04/02/2019 with progressive shortness of breath associated with respiratory distress requiring BiPAP. Acute exacerbation of chronic diastolic heart failure. Echo on 04/03/2019 showed EF 55-60% with grade II diastolic dysfunction. - She was initially admitted to the ICU, then transferred out within 1 day after diuresis. - As of 04/09, she has diuresed 33 L per computer and is down 23 kg. - Continue Lasix 20 mg IV Q12h - Continue Hyde for accurate I's and O's - Continue strict I's and O's, daily weights, low-sodium diet, fluid restriction - Monitor Cr (3) Acute on chronic respiratory failure with hypoxia and hypercapnia: Secondary to acute CHF diastolic exacerbation. - Remains on nasal cannula and BiPAP at nighttime which is her baseline (4) Coronary atherosclerosis of [place] coronary vessel: With mildly elevated trop here at 0.19/0.47/0.16 consistent with myocardial demand ischemia in the setting of CHF exacerbation. - She has known history of CAD status post PCI in the past - Cont ASA, Plavix, statin - Notably not on a beta-phuong possibly due to low resting heart rate (5) COPD (chronic obstructive pulmonary disease): With acute on chronic hypoxic and hypercarbic respiratory failure as above. 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 Appears compensated at this time. AST and ALT mildly elevated upon admission. - Follow LFTs (7) DM type 2 (diabetes mellitus, type 2): Hemoglobin A1c 8.3% in 01/2019. - Continue basal bolus insulin both here and at home - Glycemic pharmacist consult (8) Hypothyroidism: TSH was normal this admission. - Continue home levothyroxine (9) GEETHA treated with BiPAP: Is supposed to be using BiPAP 12/5 cmH20 nightly as per outpatient pulmonology/sleep medicine notes. Apparently she is quite non-compliant with this as an outpatient. - Continue BiPAP for here at bedtime (10) Bullous pemphigoid: This was diagnosed approximately 2 years ago but apparently she was hospitalized at [facility] in [place] in December 2018 after being transferred from our ER down there for an acute flare with diffuse bullae. Appears to be in healing stages with innumerable scabs all over. - Continue prednisone 30 mg daily as home dose, niacinamide 500 mill grams p.o. 3 times daily (11) Pulmonary nodule: Right lower lobe 1.4 cm nodular opacity seen on CTA chest on 04/02/2019. She is a current smoker and is at high risk for lung cancer. - Requires follow-up in 3 months to ensure resolution (12) Hyponatremia: Has a history of chronic hyponatremia with baseline around 127 in 2018 - was worsen on admission. Is likely due to fluid overload in the setting of CHF. Sodium was 122 on admission and now is greatly improved with diuresis up to 132. - Follow BMP in the morning - Continue diuresis (13) GERD (gastroesophageal reflux disease): Stable. - Continue home Protonix (14) Neuropathy: Stable. - Continue home gabapentin (15) Tobacco use disorder: Counseled on smoking cessation (16) DVT prophylaxis: Lovenox 40mg subcut daily Subjective Left neck pain has substantially improved after I&D. Reports no fevers/chills, chest pain, shortness of breath, abdominal pain, nausea, or vomiting. Review of Systems Review of Systems: All systems reviewed & are unremarkable except as noted in HPI & below Integumentary: + pruritus Physical Exam Constitutional: + morbidly obese; no acute distress Eyes: PERRL, conjunctivae normal, anicteric sclerae Neck: trachea midline, no thyromegaly + anterior neck swelling (Now bandaged.) and + thick neck Respiratory: normal respiratory effort Auscultation: + diminished lung sounds (Diffusely); no wheezes Cardiovascular: RRR, no murmur, no edema Rate/Rhythm: regular rate and regular rhythm Extremities: + edema (2+ lower extremity edema to the thighs) Gastrointestinal (Abdomen): normal bowel sounds, soft, nontender, no hepatosplenomegaly Musculoskeletal: Extremities: no cyanosis and no clubbing Skin: no rashes, warm and dry + rash (Diffuse erythematous macular rash with bullae and excoriations on face trunk, arms and legs) Neurologic: moves all extremities and awake; no focal motor deficits Psychiatric: A+Ox3, euthymic affect Orientation: alert, oriented to person, oriented to place and cooperative Genitourinary: normal external appearance (Hyde catheter in place draining clear yellow urine) Results & Data Vital Signs (Past 12 Hours) Vital Signs Temp Pulse Pulse Resp BP Pulse Ox 04/09/19 13:06 58 L 16 97 04/09/19 11:26 36.7 C 55 L 22 97/42 L 99 04/09/19 09:30 55 L 04/09/19 07:25 36.3 C L 54 L 24 127/84 100 04/09/19 04:37 37.0 C 52 L 18 101/55 L 93
--- NOTE | 2019-04-09 13:59 | Palliative Care Progress Note ---
Date of Service April 09, 2019 Subjective Palliative care met with patient last week. She wishes to proceed as full code, full treatment. Advance directive paperwork was ordered to be completed. Please contact palliative care with any further needs, we will sign off at this time. Results & Data Vital Signs (Past 12 Hours) Vital Signs Temp Pulse Pulse Resp BP Pulse Ox 04/09/19 13:06 58 L 16 97 04/09/19 11:26 36.7 C 55 L 22 97/42 L 99 04/09/19 09:30 55 L 04/09/19 07:25 36.3 C L 54 L 24 127/84 100 04/09/19 04:37 37.0 C 52 L 18 101/55 L 93
--- NOTE | 2019-04-09 15:30 | Wound Consultation ---
Date of Consultation April 09, 2019 Assessment & Plan (1) Surgical wound present: Patient status post I&D on April [address] Flowers. Agree with continuing empiric antibiotics. We will dress wound with wound VAC using silver foam. Will changes every 3 days. We will continue to follow patient while inpatient. Thank you for allowing me to participate in the care of this patient. Please not hesitate to call with any questions. (2) Abscess: History of Present Illness Attending Physician: Lance Milton MD This is a 58-year-old female with a history of GERD, bullous pemphigoid, obstructive sleep apnea, CHF, CAD, COPD, type 2 diabetes mellitus, liver cirrhosis, morbid obesity, hypothyroidism and nicotine dependence who was admitted with a CHF exacerbation. Patient was found to have abscess on her left posterior neck. This was incised and drained by Dr. Flowers on April 08. I am being consulted for management of the wound. Allergies Allergy/AdvReac Type Severity Reaction Status Date / Time Penicillins Allergy Intermediate RASH Verified 04/02/19 15:09 Home Medications Home Medications Medication Instructions Recorded Confirmed Type Lactobacillus acidoph-L.bulgar 1 tab PO TID 11/05/18 04/02/19 History [Lactinex] acetaminophen [Tylenol] 650 mg PO Q6 PRN MDD 3G 11/05/18 04/02/19 History albuterol sulfate [ProAir HFA] 2 puff INHALATION Q4H PRN 11/05/18 04/02/19 History aspirin [Aspir-81] 81 mg PO DAILY 11/05/18 04/02/19 History atorvastatin 40 mg PO DAILY 11/05/18 04/02/19 History bisacodyl 10 mg MS DAILY PRN 11/05/18 04/02/19 History cholecalciferol (vitamin D3) 2,000 unit PO DAILY 11/05/18 04/02/19 History clopidogrel 75 mg PO DAILY 11/05/18 04/02/19 History uikolqfgjce-yeyptdzff-wyplkdao 1 inh INHALATION DAILY 11/05/18 04/02/19 History [Trelegy Ellipta] furosemide 20 mg PO DAILY 11/05/18 04/02/19 History gabapentin 100 mg PO TID 11/05/18 04/02/19 History insulin glargine 45 unit SUBCUT Q12 11/05/18 04/02/19 History insulin lispro 0 units SUBCUT UD 11/05/18 04/02/19 History insulin lispro [Humalog U-100 35 unit SUBCUT DAILY 11/05/18 04/02/19 History Insulin] ipratropium-albuterol 3 ml INHALATION Q6 PRN 11/05/18 04/02/19 History levothyroxine 200 mcg PO DAILY 11/05/18 04/02/19 History niacinamide 500 mg PO TID 11/05/18 04/02/19 History pantoprazole 20 mg PO DAILY 11/05/18 04/02/19 History potassium chloride [Klor-Con M20] 20 meq PO DAILY 11/05/18 04/02/19 History ascorbic acid (vitamin C) 500 mg PO BID 01/15/19 04/02/19 History clobetasol 1 applic TOPICAL AMPM 01/15/19 04/02/19 History insulin lispro [Humalog U-100 20 unit SUBCUT AC 01/15/19 04/02/19 History Insulin] magnesium hydroxide [Milk of 30 ml PO DIRECTED PRN 01/15/19 04/02/19 History Magnesia] multivitamin 1 tab PO DAILY 01/15/19 04/02/19 History nystatin 1 applic TOPICAL TID 01/15/19 04/02/19 History prednisone 30 mg PO DAILY 01/15/19 04/02/19 History sodium phosphates [Fleet Enema] 118 ml MS DAILY PRN 01/15/19 04/02/19 History Patient History Medical History Coronary atherosclerosis of [place] coronary vessel (Chronic 01/05/13) " STEMI November of 2011 treated at [facility] with a PCI to the RCA" Diastolic CHF (Chronic) COPD (chronic obstructive pulmonary disease) (Chronic) Chronic respiratory failure with hypoxia (Chronic) Tobacco use disorder (Chronic) Chronic obstructive lung disease (Chronic 01/05/13) Cirrhosis of liver (Chronic) "autoimmune, 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" DM type 2 (diabetes mellitus, type 2) (Chronic) Morbid obesity with BMI of 40.0-44.9, adult (Chronic) Hypothyroidism (Chronic) Peripheral vascular disease (Chronic) Acute hyperglycemia (Inactive) Surgical History History of hysterectomy (Chronic 01/05/13) S/P tonsillectomy and adenoidectomy (Chronic) S/P cholecystectomy (Chronic) S/P coronary artery stent placement (Chronic) "11/2011 ISABEL to RCA" Family History Other Diabetes Heart disease Hypertension Social History Preferred Language: Telugu Project Admin Required: No Beliefs That Will Affect Care: None marital status: Single Current Living Situation: Personal Care Facility current occupational status: disabled Feels Safe at Home: Yes Smoking Status: Current every day smoker Tobacco Cessation Education Requested by Patient: No Review of Systems Review of Systems: All systems reviewed & are unremarkable except as noted in HPI & below Physical Exam Constitutional: WD/WN, vitals as above Respiratory: Auscultation: + crackles Cardiovascular: RRR, no murmur, no edema Gastrointestinal (Abdomen): normal bowel sounds, soft, nontender, no hepatosplenomegaly Skin: Wound measuring 2.8 x 5 x 1.8 cm. This is surface area 14 cm. Neurologic: awake; not confused Psychiatric: A+Ox3, euthymic affect Results & Data Vital Signs (Past 12 Hours) Vital Signs Temp Pulse Pulse Resp BP BP Pulse Ox 04/09/19 15:09 57 L 04/09/19 15:08 36.8 C 60 20 99/60 L 96 04/09/19 13:06 58 L 16 97 04/09/19 11:26 36.7 C 55 L 22 97/42 L 99 04/09/19 09:30 55 L 04/09/19 07:25 36.3 C L 54 L 24 127/84 100 04/09/19 04:37 37.0 C 52 L 18 101/55 L 93
--- NOTE | 2019-04-09 15:42 | Infectious Disease Consult ---
Date of Consultation April 09, 2019 Assessment & Plan (1) Staph aureus infection: Abscess of neck with staph aureus, sensitivities are pending. Agree with use of daptomycin pending final sensitivity results. To continue IV antibiotics and wound VAC drainage for now, hopefully can transition to oral antibiotics in near future. Will follow. (2) Abscess of neck: History of Present Illness Reason for Consultation: Staph infection, immunocompromised Attending Physician: Lance Milton MD History of Present Illness 58-year-old female with history of coronary artery disease, COPD, type 2 diabetes mellitus, hypothyroidism, peripheral vascular disease, who was admitted originally on April 02 with exacerbation of heart failure and COPD. She was subsequently found to have large left neck abscess, and is undergone surgical drainage and cultures now growing staph aureus, sensitivities pending. Has been started empirically on daptomycin, tolerating without apparent difficulty so far. Currently afebrile and hemodynamically stable. Blood cultures have been negative to date. Allergies Allergy/AdvReac Type Severity Reaction Status Date / Time Penicillins Allergy Intermediate RASH Verified 04/02/19 15:09 Home Medications Home Medications Medication Instructions Recorded Confirmed Type Lactobacillus acidoph-L.bulgar 1 tab PO TID 11/05/18 04/02/19 History [Lactinex] acetaminophen [Tylenol] 650 mg PO Q6 PRN MDD 3G 11/05/18 04/02/19 History albuterol sulfate [ProAir HFA] 2 puff INHALATION Q4H PRN 11/05/18 04/02/19 History aspirin [Aspir-81] 81 mg PO DAILY 11/05/18 04/02/19 History atorvastatin 40 mg PO DAILY 11/05/18 04/02/19 History bisacodyl 10 mg LA DAILY PRN 11/05/18 04/02/19 History cholecalciferol (vitamin D3) 2,000 unit PO DAILY 11/05/18 04/02/19 History clopidogrel 75 mg PO DAILY 11/05/18 04/02/19 History aonxwnipeod-zojgvlhrr-jhjzvmkm 1 inh INHALATION DAILY 11/05/18 04/02/19 History [Trelegy Ellipta] furosemide 20 mg PO DAILY 11/05/18 04/02/19 History gabapentin 100 mg PO TID 11/05/18 04/02/19 History insulin glargine 45 unit SUBCUT Q12 11/05/18 04/02/19 History insulin lispro 0 units SUBCUT UD 11/05/18 04/02/19 History insulin lispro [Humalog U-100 35 unit SUBCUT DAILY 11/05/18 04/02/19 History Insulin] ipratropium-albuterol 3 ml INHALATION Q6 PRN 11/05/18 04/02/19 History levothyroxine 200 mcg PO DAILY 11/05/18 04/02/19 History niacinamide 500 mg PO TID 11/05/18 04/02/19 History pantoprazole 20 mg PO DAILY 11/05/18 04/02/19 History potassium chloride [Klor-Con M20] 20 meq PO DAILY 11/05/18 04/02/19 History ascorbic acid (vitamin C) 500 mg PO BID 01/15/19 04/02/19 History clobetasol 1 applic TOPICAL AMPM 01/15/19 04/02/19 History insulin lispro [Humalog U-100 20 unit SUBCUT AC 01/15/19 04/02/19 History Insulin] magnesium hydroxide [Milk of 30 ml PO DIRECTED PRN 01/15/19 04/02/19 History Magnesia] multivitamin 1 tab PO DAILY 01/15/19 04/02/19 History nystatin 1 applic TOPICAL TID 01/15/19 04/02/19 History prednisone 30 mg PO DAILY 01/15/19 04/02/19 History sodium phosphates [Fleet Enema] 118 ml [place] DAILY PRN 01/15/19 04/02/19 History Patient History Medical History Coronary atherosclerosis of [place] coronary vessel (Chronic 01/05/13) " STEMI November of 2011 treated at [facility] with a PCI to the RCA" Diastolic CHF (Chronic) COPD (chronic obstructive pulmonary disease) (Chronic) Chronic respiratory failure with hypoxia (Chronic) Tobacco use disorder (Chronic) Chronic obstructive lung disease (Chronic 01/05/13) Cirrhosis of liver (Chronic) "autoimmune, 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" DM type 2 (diabetes mellitus, type 2) (Chronic) Morbid obesity with BMI of 40.0-44.9, adult (Chronic) Hypothyroidism (Chronic) Peripheral vascular disease (Chronic) Acute hyperglycemia (Inactive) Surgical History History of hysterectomy (Chronic 01/05/13) S/P tonsillectomy and adenoidectomy (Chronic) S/P cholecystectomy (Chronic) S/P coronary artery stent placement (Chronic) "11/2011 ISABEL to RCA" Family History Other Diabetes Heart disease Hypertension Social History Preferred Language: [place] Forest [employer] Prevention Specialist Required: No Beliefs That Will Affect Care: None marital status: Single Current Living Situation: Personal Care Facility current occupational status: disabled Feels Safe at Home: Yes Smoking Status: Current every day smoker Tobacco Cessation Education Requested by Patient: No Review of Systems Review of Systems: All systems reviewed & are unremarkable except as noted in HPI & below Physical Exam Constitutional: WD/WN, vitals as above comfortable; no acute distress Eyes: PERRL, conjunctivae normal, anicteric sclerae ENMT: external ear and nose normal, oropharynx normal Neck: trachea midline, no thyromegaly neck nontender Respiratory: normal respiratory effort, lungs clear to auscultation normal percussion; does not use accessory muscles Cardiovascular: Rate/Rhythm: regular rate and regular rhythm Heart Sounds: normal S1 and normal S2; no gallop, no murmur and no cardiac rub Vessels: normal peripheral pulses; no JVD Gastrointestinal (Abdomen): normal bowel sounds, soft, nontender, no hepatosplenomegaly Musculoskeletal: no cyanosis or clubbing, extremities motor strength 5/5 Spine: thoracic spine normal to inspection and lumbar spine normal to inspection; no cervical spinal tenderness Skin: normal turgor, + rash (Diffuse macular erythematous fading rash) and + wound (Left neck with erythema and induration surrounding) Neurologic: patellar DTR's 2+ bilat, sensation intact no focal motor deficits Psychiatric: A+Ox3, euthymic affect Orientation: cooperative Lymphatic: no cervical or axillary lymphadenopathy no inguinal lymphadenopathy Results & Data Vital Signs (Past 12 Hours) Vital Signs Temp Pulse Pulse Resp BP BP Pulse Ox 04/09/19 15:09 57 L 04/09/19 15:08 36.8 C 60 20 99/60 L 96 04/09/19 13:06 58 L 16 97 04/09/19 11:26 36.7 C 55 L 22 97/42 L 99 04/09/19 09:30 55 L 04/09/19 07:25 36.3 C L 54 L 24 127/84 100 04/09/19 04:37 37.0 C 52 L 18 101/55 L 93 Laboratory Results Short CBC 04/09/19 Range/Units 07:48 WBC 9.28 (4.8-10.8) K/uL Hgb 12.1 (12.0-16.0) g/dL Hct 37.1 (37-47) % Plt Count 190 (130-400) K/uL BMP 04/09/19 07:48 Sodium 135 L Potassium 3.7 Chloride 98 Carbon Dioxide 33 H BUN 20 H Creatinine 0.45 L Glucose 91 Calcium 9.4 Diagnostic Findings Microbiology 04/08/19 12:13 Neck Gram Stain - Final 04/08/19 12:13 Neck Aerobic and Anaerobic Culture - Preliminary Staphylococcus aureus 04/02/19 14:56 Blood Blood Culture - Preliminary No growth to date. 04/02/19 14:30 Blood Blood Culture - Preliminary No growth to date. cc: ~ CT ANGIOGRAM OF THE CHEST CLINICAL HISTORY: Cough and dyspnea. COMPARISON STUDY: Chest x-ray dated 04/02/2019. Chest CT dated 10/03/2017 and 06/20/2017. TECHNIQUE: Following the IV administration of 120 cc of Optiray 320, CT angiogram of the chest was performed from the upper abdomen to the thoracic inlet utilizing the pulmonary embolus protocol. Images are reviewed in the axial, sagittal, and coronal planes. 3-D MIPS images are created and assessed. IV contrast was administered without complication. A dose lowering technique was utilized adhering to the principles of ALARA. Examination is degraded by large body habitus, and by streak artifact from the body wall abutting the CT gantry. There is also motion compromised. CT DOSE: 992.59 mGy.cm FINDINGS: Thyroid: Atrophic. Thoracic aorta: There is atherosclerotic calcification of the thoracic aorta, which is normal in caliber and demonstrates standard 3-vessel arch anatomy. No dissection is seen. Pulmonary vasculature: The pulmonary trunk is normal in caliber. There are no filling defects identified in main, lobar, or proximal segmental pulmonary branches to suggest pulmonary embolus. Evaluation of the peripheral branches is degraded by motion artifact. Heart: The heart is enlarged and without pericardial effusion. The coronary arteries are densely calcified. Lungs and pleural spaces: Evaluation of the lung parenchyma is compromised by motion artifact. There are small pleural effusions with bibasilar consolidation. Diffuse intralobular septal thickening is noted. There are mild perihilar opacities, likely representing interstitial edema. A 1.4 cm nodular opacity in the right lower lobe as seen on image #154. The trachea and central airways are clear. Mediastinum: There are prominent subcentimeter mediastinal lymph nodes. Analia: Clear. Axillae: There is no axillary lymphadenopathy. Upper abdomen: There is trace perihepatic ascites. A tiny hiatal hernia is noted. There is nodularity of the hepatic surface contour suggesting early change of cirrhosis. There is heterogeneous attenuation. Pneumobilia is noted. Skeletal structures: No lytic or blastic bony lesions are seen. IMPRESSION: 1. Streak and motion compromised examination. 2. There is no evidence of pulmonary embolus in the main, lobar, or proximal segmental pulmonary arteries. 3. Cardiomegaly with evidence of congestive failure and interstitial edema.
[2019-04-10] MEDS: LEVOTHYROXINE SODIUM 200 MCG TABLET PO SCH (06:36)
[2019-04-10 07:11] LABS: BUN Creatinine Ratio 48.4 (10-20); Calcium 9.4 mg/dl (8.5-10.1); Creatinine Clr Calc Pharmacy 174.5 ml/min; Est GFR (African American) 124.4; Est GFR (Non-African American) 107.4; Potassium 4.1 mmol/L (3.5-5.1)
--- NOTE | 2019-04-10 07:39 | Pharmacy Report ---
Pharmacy Glycemic Short Note 2 - Date of Service April 10, 2019 - Glycemic Short BSG Results (Last 24 hours): 04/09/19 04/09/19 04/09/19 07:48 07:53 11:43 Glucose 91 POC Glucose 88 138 H 04/09/19 04/09/19 04/10/19 16:22 20:12 06:16 Glucose 88 POC Glucose 157 H 216 H ASSESSMENT: -: * Patient received total of 130 units of insulin yesterday, of which 80 units were basal insulin (reduced basal then home dose / typically on Lantus 45 BID at home) * Still receiving daptomycin for skin/soft tissue infection / continues on prednisone 30 mg daily * Fasting BSGs this am was 88 mg/dL - will continue same Lantus this morning, but scale back on this evening's dose * BSGs improving yesterday 138 - 157 mg/dL - however did trend up at dinner time ; likely related to peak effects of prednisone; Will continue same CF/CR for now 04-09: * Type 2 diabetic admitted for shortness of breath/resp.distress on steroid. Has SST infection currently treated with Daptomycin. Has been inpatient for since 04/02 but not consulted until 04/08. * PMH: CHF/COPD/Hypothyroidism * Outpatient regimen consists of Lantus 45 units BID and Humalog 20 units AC + sliding scale * Most recent HBA1c: 8.3 * Patient received total of 121 units of insulin yesterday. 85 units of which were basal. Had been NPO 5/12 am but diet started with lunch. Blood sugars appear to trend up through the day. Tightened both correction factor and carb ratio. * Prednisone decreased from 40mg to 30mg today. Will follow and adjust Lantus dosing per readings. PLAN FOR INPATIENT GLYCEMIC CONTROL: * Hold outpatient oral diabetes medications * Basal insulin - adjust * Lantus 40 units QAM * Lantus 35 units QPM * Bolus insulin - continue same * NovoLog per scale ACHS or Q6hrs while NPO * Goal Range: Low 100 mg/dL - High 140 mg/dL * Correction Factor: 10 mg/dL/unit * Nutritional / Prandial insulin per carb ratio of 1 unit per 4 grams CHO consumed
[2019-04-10] MEDS: INSULIN ASPART 100 UNITS/ML 3 ML PEN SC SCH ×4 (08:13→21:06)
[2019-04-10] MEDS: ENOXAPARIN INJ 40 MG/0.4 ML SYR SQ SCH (08:14)
[2019-04-10] MEDS: NYSTATIN POWDER 15GM BTL EXT SCH ×3 (08:14→21:06)
[2019-04-10] MEDS: BACITRACIN OINT 15 GM TUBE EXT SCH ×2 (08:14→21:03)
[2019-04-10] MEDS: INSULIN GLARGINE SOLOSTAR 100 UNITS/ML 3 ML PEN SC SCH (08:15)
[2019-04-10] MEDS: ASPIRIN 81 MG ECTAB PO SCH (08:15)
[2019-04-10] MEDS: CHOLECALCIFEROL 1,000 UNITS TAB PO SCH (08:15)
[2019-04-10] MEDS: FUROSEMIDE 20 MG in SYRINGE 0 ML IV SCH ×2 (08:15→21:03)
[2019-04-10] MEDS: PANTOprazole 40 MG TAB PO SCH (08:16)
[2019-04-10] MEDS: ATORVASTATIN 40 MG TAB PO SCH (08:16)
[2019-04-10] MEDS: predniSONE 20 MG TAB PO SCH (08:16)
[2019-04-10] MEDS: GABAPENTIN 100 MG CAP PO SCH ×3 (08:17→21:03)
[2019-04-10] MEDS: TRIAMCINOLONE ACET 0.025% CR 15 GM TUBE EXT SCH ×2 (08:17→21:01)
[2019-04-10] MEDS: POTASSIUM CHLORIDE 20 MEQ TABCR PO SCH ×2 (08:17→21:01)
[2019-04-10] MEDS: ASCORBIC ACID 500 MG TAB PO SCH ×2 (08:17→21:03)
[2019-04-10] MEDS: DAPTOmycin 375 MG in SYRINGE 0 ML IV SCH (12:44)
--- NOTE | 2019-04-10 12:52 | Hospitalist Progress Note ---
Date of Service April 10, 2019 Assessment & Plan (1) Furuncle: Left-sided neck abscess noted on 04/07. Underwent I&D with Dr. Flowers on 04/08. Likely exacerbated by her uncontrolled DM and ongoing steroid requirements. - Continue daptomycin IV - Deep wound culture from 04/08 grew MRSA - Sensitive to daptomycin and Bactrim - Will get ID consult for duration given her immune suppression (2) CHF exacerbation: Presented from [facility] on 04/02/2019 with progressive shortness of breath associated with respiratory distress requiring BiPAP. Acute exacerbation of chronic diastolic heart failure. Echo on 04/03/2019 showed EF 55-60% with grade II diastolic dysfunction. - She was initially admitted to the ICU, then transferred out within 1 day after diuresis. - As of 04/10, she has diuresed 33 L per computer and is down 26 kg. - Continue Lasix 20 mg IV Q12h - Continue Hyde for accurate I's and O's - Continue strict I's and O's, daily weights, low-sodium diet, fluid restriction - Monitor Cr (3) Acute on chronic respiratory failure with hypoxia and hypercapnia: Secondary to acute CHF diastolic exacerbation. - Remains on nasal cannula and BiPAP at nighttime which is her baseline (4) Coronary atherosclerosis of [place] coronary vessel: With mildly elevated trop here at 0.19/0.47/0.16 consistent with myocardial demand ischemia in the setting of CHF exacerbation. - She has known history of CAD status post PCI in the past - Cont ASA, Plavix, statin - Notably not on a beta-phuong possibly due to low resting heart rate (5) COPD (chronic obstructive pulmonary disease): With acute on chronic hypoxic and hypercarbic respiratory failure as above. 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 Appears compensated at this time. AST and ALT mildly elevated upon admission. - Follow LFTs (7) DM type 2 (diabetes mellitus, type 2): Hemoglobin A1c 8.3% in 01/2019. - Continue basal bolus insulin both here and at home - Glycemic pharmacist consult (8) Hypothyroidism: TSH was normal this admission. - Continue home levothyroxine (9) GEETHA treated with BiPAP: Is supposed to be using BiPAP 12/5 cmH20 nightly as per outpatient pulmonology/sleep medicine notes. Apparently she is quite non-compliant with this as an outpatient. - Continue BiPAP for here at bedtime (10) Bullous pemphigoid: This was diagnosed approximately 2 years ago but apparently she was hospitalized at [facility] in [place] in December 2018 after being transferred from our ER down there for an acute flare with diffuse bullae. Appears to be in healing stages with innumerable scabs all over. - Continue prednisone 30 mg daily as home dose, niacinamide 500 mill grams p.o. 3 times daily (11) Pulmonary nodule: Right lower lobe 1.4 cm nodular opacity seen on CTA chest on 04/02/2019. She is a current smoker and is at high risk for lung cancer. - Requires follow-up in 3 months to ensure resolution (12) Hyponatremia: Has a history of chronic hyponatremia with baseline around 127 in 2018 - was worsen on admission. Is likely due to fluid overload in the setting of CHF. Sodium was 122 on admission and now is greatly improved with diuresis up to 132. - Follow BMP in the morning - Continue diuresis (13) GERD (gastroesophageal reflux disease): Stable. - Continue home Protonix (14) Neuropathy: Stable. - Continue home gabapentin (15) Tobacco use disorder: Counseled on smoking cessation (16) DVT prophylaxis: Lovenox 40mg subcut daily Subjective Feels well. Neck pain is improved/resolved with the wound vac. No major complaints. Reports no fevers/chills, chest pain, shortness of breath, abdominal pain, nausea, or vomiting. Review of Systems Review of Systems: All systems reviewed & are unremarkable except as noted in HPI & below Physical Exam Constitutional: + morbidly obese; no acute distress Eyes: PERRL, conjunctivae normal, anicteric sclerae Neck: trachea midline, no thyromegaly + anterior neck swelling (Now bandaged.) and + thick neck Respiratory: normal respiratory effort Auscultation: + diminished lung sounds (Diffusely); no wheezes Cardiovascular: RRR, no murmur, no edema Rate/Rhythm: regular rate and regular rhythm Extremities: + edema (2+ lower extremity edema to the thighs) Gastrointestinal (Abdomen): normal bowel sounds, soft, nontender, no hepatosplenomegaly Musculoskeletal: Extremities: no cyanosis and no clubbing Skin: no rashes, warm and dry + rash (Diffuse erythematous macular rash with bullae and excoriations on face trunk, arms and legs) Neurologic: moves all extremities and awake; no focal motor deficits Psychiatric: A+Ox3, euthymic affect Orientation: alert, oriented to person, oriented to place and cooperative Genitourinary: normal external appearance (Hyde catheter in place draining clear yellow urine) Results & Data Vital Signs (Past 12 Hours) Vital Signs Temp Pulse Pulse Resp BP BP Pulse Ox 04/10/19 12:21 36.8 C 59 L 18 117/74 04/10/19 07:14 36.5 C 55 L 18 112/67 96 04/10/19 05:13 60 21 96 04/10/19 04:00 36.7 C 55 L 21 108/72 97 04/10/19 01:13 63 20 97
--- NOTE | 2019-04-10 15:35 | Infectious Disease Progress Nt ---
Date of Service April 10, 2019 Assessment & Plan (1) Staph aureus infection: Abscess of neck with methicillin resistant staph aureus. Patient should continue on daptomycin, likely 2 more days of IV therapy if continues to improve. Will hopefully then transition to oral Bactrim therapy. Will follow. (2) Abscess of neck: Subjective Patient seen in follow-up for left neck abscess. Pain relatively well controlled. Remains afebrile. Cultures have grown MRSA. Review of Systems Review of Systems: All systems reviewed & are unremarkable except as noted in HPI & below Physical Exam Constitutional: WD/WN, vitals as above comfortable; no acute distress Eyes: PERRL, conjunctivae normal, anicteric sclerae ENMT: external ear and nose normal, oropharynx normal Neck: trachea midline, no thyromegaly neck nontender Respiratory: normal respiratory effort, lungs clear to auscultation normal percussion; does not use accessory muscles Cardiovascular: Rate/Rhythm: regular rate and regular rhythm Heart Sounds: normal S1 and normal S2; no gallop, no murmur and no cardiac rub Vessels: normal peripheral pulses; no JVD Gastrointestinal (Abdomen): normal bowel sounds, soft, nontender, no hepatosplenomegaly Musculoskeletal: no cyanosis or clubbing, extremities motor strength 5/5 Spine: thoracic spine normal to inspection and lumbar spine normal to inspection; no cervical spinal tenderness Skin: normal turgor, + rash (Diffuse macular erythematous fading rash) and + w ound (Left neck with erythema and induration surrounding) Neurologic: patellar DTR's 2+ bilat, sensation intact no focal motor deficits Psychiatric: A+Ox3, euthymic affect Orientation: cooperative Lymphatic: no cervical or axillary lymphadenopathy no inguinal lymphadenopathy Results & Data Vital Signs (Past 12 Hours) Vital Signs Temp Pulse Pulse Resp BP BP Pulse Ox 04/10/19 12:21 36.8 C 59 L 18 117/74 04/10/19 07:14 36.5 C 55 L 18 112/67 96 04/10/19 05:13 60 21 96 04/10/19 04:00 36.7 C 55 L 21 108/72 97 Laboratory Results [facility] 04/10/19 06:16 Sodium 137 Potassium 4.1 Chloride 100 Carbon Dioxide 35 H BUN 23 H Creatinine 0.48 L Glucose 88 Calcium 9.4 Diagnostic Findings Microbiology 04/08/19 12:13 Neck Gram Stain - Final 04/08/19 12:13 Neck Aerobic and Anaerobic Culture - Preliminary Staph aureus MRSA 04/02/19 14:56 Blood Blood Culture - Preliminary No growth to date. 04/02/19 14:30 Blood Blood Culture - Preliminary No growth to date.
--- NOTE | 2019-04-10 15:37 | Progress Note ---
Date of Service April 10, 2019 Assessment & Plan (1) Abscess of neck: growing MRSA- atbx per ID team wound vac in place- followup by wound care team and wound clinic Subjective pt with Lt posterior neck wound with wound vac in place Physical Exam Physical Exam: less erythema at wound site Results & Data Vital Signs (Past 12 Hours) Vital Signs Temp Pulse Pulse Resp BP BP Pulse Ox 04/10/19 12:21 36.8 C 59 L 18 117/74 04/10/19 07:14 36.5 C 55 L 18 112/67 96 04/10/19 05:13 60 21 96 04/10/19 04:00 36.7 C 55 L 21 108/72 97
[2019-04-10] MEDS ORDERED: INSULIN GLARGINE SOLOSTAR 100 UNITS/ML 3 ML PEN SC SCH (21:00)
[2019-04-11] MEDS: LEVOTHYROXINE SODIUM 200 MCG TABLET PO SCH (06:24)
[2019-04-11] MEDS: ATORVASTATIN 40 MG TAB PO SCH (08:37)
[2019-04-11] MEDS: PANTOprazole 40 MG TAB PO SCH (08:37)
[2019-04-11] MEDS: ASCORBIC ACID 500 MG TAB PO SCH (08:38)
[2019-04-11] MEDS: ENOXAPARIN INJ 40 MG/0.4 ML SYR SQ SCH (08:38)
[2019-04-11] MEDS: CHOLECALCIFEROL 1,000 UNITS TAB PO SCH (08:38)
[2019-04-11] MEDS: predniSONE 20 MG TAB PO SCH (08:39)
[2019-04-11] MEDS: ASPIRIN 81 MG ECTAB PO SCH (08:39)
[2019-04-11] MEDS: POTASSIUM CHLORIDE 20 MEQ TABCR PO SCH (08:40)
[2019-04-11] MEDS: GABAPENTIN 100 MG CAP PO SCH ×2 (08:40→14:26)
[2019-04-11] MEDS: INSULIN GLARGINE SOLOSTAR 100 UNITS/ML 3 ML PEN SC SCH (08:41)
[2019-04-11 08:42] LABS: Creatinine Clr Calc Pharmacy 176.3 ml/min; Est GFR (African American) 125.3; Est GFR (Non-African American) 108.1
[2019-04-11] MEDS: NYSTATIN POWDER 15GM BTL EXT SCH ×2 (08:43→14:26)
[2019-04-11] MEDS: BACITRACIN OINT 15 GM TUBE EXT SCH (08:43)
[2019-04-11] MEDS: TRIAMCINOLONE ACET 0.025% CR 15 GM TUBE EXT SCH (08:43)
[2019-04-11] MEDS: INSULIN ASPART 100 UNITS/ML 3 ML PEN SC SCH ×2 (08:44→12:30)
[2019-04-11] MEDS: FUROSEMIDE 20 MG in SYRINGE 0 ML IV SCH (08:59)
[2019-04-11] MEDS: DAPTOmycin 375 MG in SYRINGE 0 ML IV SCH (12:33)
--- NOTE | 2019-04-11 13:47 | Heart Failure Progress Note ---
Date of Service April 11, 2019 Assessment & Plan (1) Acute on chronic diastolic (congestive) heart failure: Patient has had a significant response to diuretic therapy during her admission. She is scheduled for discharge back to [facility] this afternoon. She will likely continue to diuresis after discharge. I would recommend at least Lasix 40 mg daily for discharge. I have recommended that the patient follow up with the heart failure program as an outpatient. Disposition: Follow up with CHF program on 04/17/19 at 2:00pm. Weekly BMP for monitoring. Subjective Patient is a 58-year-old female with acute on chronic respiratory failure, di astolic CHF, CAD/OR-2011, COPD, current smoker-down to 1-1/2 packs,ABDI cirrhosis, diabetes, obesity-BMI greater than 40, hypothyroid-TSH within normal limits on admission, PVD, obesity hypoventilation syndrome-on O2 during the daytime with BiPAP nightly who presented to the emergency room on 04/02 for acute increased shortness of breath. Patient sats were 86% on 2 L O2-she was placed on oxygen mask at 4 L-sats improved to 90%, CO2 was 99 on ABG-patient was placed on BiPAP and transferred to the ICU. Patient was afebrile, no URI symptoms. Patient had a CTA which was negative for PE, chest x-ray did show pulmonary edema. Patient reports she ate "a bunch of pickles"-this may have caused the fluid retention that led to her acute respiratory distress. Echocardiogram demonstrates preserved ejection fraction. She was initiated on IV Lasix 20 mg and has had copious diuresis over the last week. She is negative 36 L this admission and is down 30 kg. Creatine has been stable. She typically resides at [facility]. She is non-ambulatory and requires a Racheal lift for transfers. Results & Data Vital Signs (Past 12 Hours) Vital Signs Temp Pulse Resp BP BP Pulse Ox 04/11/19 11:25 36.7 C 60 20 118/55 L 98 04/11/19 07:18 36.5 C 81 20 126/67 97 04/11/19 05:12 36.5 C 62 18 108/66 93
--- NOTE | 2019-04-11 15:31 | Discharge Summary ---
Date of Service April 11, 2019 Admission HPI Per Admitting Provider 58 y/o F Hx Morbid obesity, COPD, chronic resp failure, DM II, CAD, diastolic CHF, ABDI cirrhosis, HTN, HLD, hyponatremia, hypothyroidism, PVD, continues to smoke. Presents from [facility] with progressive SOB and moderate respiratory distress requiring BiPAP. Initial labs are notable for hyponatremia, mild hyperkalemia and an elevated troponin. An ABG demonstrated a C02 of 99. An EKG does not support acute ischemia. A CTA did not demonstrate PEs and is consistent with pulmonary edema and BL pleural effusions. The pt is confused and lethargic. She is unable to contribute to the HPI/ROS at the time of admission. She was apparently more lucid when she first arrived and stated that she did not have CP and was a full code per the ER attending. PMH: 1) Morbid obesity - BMI 67 2) CAD - PA and stent 2012 3) COPD 4) Chronic hypoxic and hypercarbic respiratory failure 5) DM II - poorly controlled - recent A1C > 8.3 6) Chronic diastolic CHF 7) ABDI cirrhosis 8) Hyponatremia 9) Anemia 10) HTN 11) HLD 12) Hypothyroidism 13) Eczema Surgical: 1) Hysterectomy 2) Cholecystectomy 3) Tonsillectomy and adenoidectomy Social: She apparently still smokes, although this is not clear as she needs a wheelchair for mobility and resides at [facility] Family: Could not obtain a history. Principal Diagnosis Diastolic heart failure Discharge Exam Constitutional + morbidly obese; no acute distress Eyes PERRL, conjunctivae normal, anicteric sclerae Neck trachea midline, no thyromegaly + anterior neck swelling (Now bandaged.) and + thick neck Respiratory normal respiratory effort Auscultation: + diminished lung sounds (Diffusely); no wheezes Cardiovascular RRR, no murmur, no edema Rate/Rhythm: regular rate and regular rhythm Extremities: + edema (2+ lower extremity edema to the thighs) Gastrointestinal (Abdomen) normal bowel sounds, soft, nontender, no hepatosplenomegaly Musculoskeletal Extremities: no cyanosis and no clubbing Skin no rashes, warm and dry + rash (Diffuse erythematous macular rash with bullae and excoriations on face trunk, arms and legs) Neurologic moves all extremities and awake; no focal motor deficits Psychiatric A+Ox3, euthymic affect Orientation: alert, oriented to person, oriented to place and cooperative Genitourinary normal external appearance (Hyde catheter in place draining clear yellow urine) Discharge Data Allergies Allergy/AdvReac Type Severity Reaction Status Date / Time Penicillins Allergy Intermediate RASH Verified 04/02/19 15:09 Consultations 04/02/19 15:59 Consult Hospitalist Stat Consult Consulting Solution Manager Stat 04/02/19 17:15 ED Decision to Admit Stat 04/02/19 19:07 Consult Consulting Solution Manager Routine Consult Consulting Solution Manager Routine 04/02/19 20:59 Consult Case Management - Discharge Planning Routine 04/03/19 08:19 Consult Palliative Care Routine 04/03/19 15:42 Consult Patient Services Routine 04/07/19 12:06 Consult General Surgery Routine 04/08/19 13:22 Consult Wound Care Provider Routine 04/08/19 17:37 Consult Case Management - Discharge Planning Routine 04/09/19 13:49 Consult Infectious Diseases Routine Procedures Performed Operation Date: 04/08/19 10:00 Actual Procedures p Incision and Drainage Left Neck(Left) - Jaya Flowers MD, FACS Ordered Studies 04/02/19 14:35 CT angio chest PE protocol Stat Hospital Course (1) Furuncle: Left-sided neck abscess noted on 04/07. Underwent I&D with Dr. Flowers on 04/08. Likely exacerbated by her uncontrolled DM and ongoing steroid requirements. - Deep wound culture from 04/08 grew MRSA - Sensitive to daptomycin and Bactrim - Initially on daptomycin IV -> Switched to Bactrim DS BID x 14 day total course (End date: 04/20/2019) - Will need a CBC in 5-7 days to be sure no bone marrow suppression (2) CHF exacerbation: Presented from [facility] on 04/02/2019 with progressive shortness of breath associated with respiratory distress requiring BiPAP. Acute exacerbation of chronic diastolic heart failure. Echo on 04/03/2019 showed EF 55-60% with grade II diastolic dysfunction. - She was initially admitted to the ICU, then transferred out within 1 day after diuresis. - As of 04/11, she has diuresed 35 L per computer and is down 30 kg. - Was on Lasix 20 mg IV Q12h - Switched to Lasix 40mg PO daily on discharge - Baseline weight is probably 305 lbs. If weight increases, please increase diuretic or get heart failure appointment. (3) Acute on chronic respiratory failure with hypoxia and hypercapnia: Secondary to acute CHF diastolic exacerbation. - Remains on nasal cannula and BiPAP at nighttime which is her baseline (4) Coronary atherosclerosis of [place] coronary vessel: With mildly elevated trop here at 0.19/0.47/0.16 consistent with myocardial demand ischemia in the setting of CHF exacerbation. - She has known history of CAD status post PCI in the past - Cont ASA, Plavix, statin - Notably not on a beta-phuong possibly due to low resting heart rate (5) COPD (chronic obstructive pulmonary disease): With acute on chronic hypoxic and hypercarbic respiratory failure as above. 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 Appears compensated at this time. AST and ALT mildly elevated upon admission. - Follow LFTs (7) DM type 2 (diabetes mellitus, type 2): Hemoglobin A1c 8.3% in 01/2019. - Continued basal bolus insulin both here and at home (8) Hypothyroidism: TSH was normal this admission. - Continue home levothyroxine (9) GEETHA treated with BiPAP: Is supposed to be using BiPAP 12/5 cmH20 nightly as per outpatient pulmonology/sleep medicine notes. Apparently she is quite non-compliant with this as an outpatient. - Continue BiPAP for here at bedtime (10) Bullous pemphigoid: This was diagnosed approximately 2 years ago but apparently she was hospitalized at [facility] in [place] in December 2018 after being transferred from our ER down there for an acute flare with diffuse bullae. Appears to be in healing stages with innumerable scabs all over. - Continue prednisone 30 mg daily as home dose, niacinamide 500 mill grams p.o. 3 times daily (11) Pulmonary nodule: Right lower lobe 1.4 cm nodular opacity seen on CTA chest on 04/02/2019. She is a current smoker and is at high risk for lung cancer. - Requires follow-up in 3 months to ensure resolution (12) Hyponatremia: Has a history of chronic hyponatremia with baseline around 127 in 2018 - was worsen on admission. Is likely due to fluid overload in the setting of CHF. Sodium was 122 on admission and now is greatly improved with diuresis up to 132. - Follow BMP in the morning - Continue diuresis (13) GERD (gastroesophageal reflux disease): Stable. - Continue home Protonix (14) Neuropathy: Stable. - Continue home gabapentin (15) Tobacco use disorder: Counseled on smoking cessation (16) DVT prophylaxis: Lovenox 40mg subcut daily Total Time Total Time Spent Total Time Spent (In Minutes): 35 Total Time Includes: Examination of the Patient and Communication With Other Providers Discharge Plan Discharge Items Patient Disposition: Transfer Detention Fac Reason For Visit: RESPIRATORY DISTRESS Discharge Diagnosis: Diastolic CHF exacerbation, left neck abscess Discharge Goals: Decrease discomfort and Improve function Activity: Resume your previous activity Non-emergency contact: Primary Care Provider and Surgeon Call non-emergency contact if: you have any medication questions, your symptoms worsen, your pain is not controlled and your temperature is above 100.5 Follow-up/Referrals: Abida Hodgson [Primary Care Provider] - Calli Ignacio PA-C [Physician Croze Cutter] - 04/17/19 2:00 pm (Please follow up with Ms. Ignacio in 1-2 weeks for heart failure follow up. Congestive Heart Failure Program Appointment Information Early follow up is essential to managing your heart failure. An appointment has been scheduled for you with the [facility] Program within 7 days of discharge. Anticipate this visit to be 30-60 minutes long. Please expect a polysilicon preparation worker phone call from one of our nurses approximately 48 hours from discharge. They will also be placing an order for lab work to be completed 1-2 days prior to your heart failure follow up appointment. Please be sure to have this done so we can go over the results when you come in. Office Location The cardiology office building is located in front of the hospital at [address] Bring the following with you to your follow-up doctor appointments: Please bring your daily weight log any discharge paperwork all of your medication bottles with you to this visit. ) Richard Truong DO [Physician] - 04/18/19 8:00 am (Please follow up in the [facility] on TuesdayApril 18 at 8:00 am. *The clinic is located at [address] in [place]. If you need to change this appointment, call the clinic at [phone]. ) Diet: Heart Healthy and Low Sodium (2gm) Addtl Provider Instructions: Ms. De Anda was admitted to the hospital with trouble breathing. This was caused by fluid building up in the lungs. We gave her IV Lasix to help get fluid off, and she diuresed 35L (~30 kg) of water volume in 9 days. She should continue taking her Lasix by mouth on discharge to help prevent further build up of fluid. On discharge, her weight was 138 kg (304 lbs). She likely has additional fluid, but this can be removed gradually with the oral Lasix. If her weight starts to climb over >305 lbs, please contact Ms. Ignacio's office (our heart failure office) to schedule an appointment. She also developed an abscess on her left neck which required debridement with Dr. Flowers. She had a wound vac placed to promote healing of the area, and she should follow up with the [facility] this week to be sure it is working appropriately. The culture grew MRSA, so she will be on antibitiocs (Bactrim) for approx. 10 more days. Her PCP or [facility] physician should check a CBC in 5-7 days to be sure her counts are stable on the Bactrim. Call your Primary Care doctor if any of the following symptoms or problems start or get worse: * Shortness of breath or difficulty breathing * Wake up at night short of breath * Chest pain * Cough * Swelling of your hands, feet, or legs * More fatigued or tired with your normal activity * Palpitations - sudden fast heart beats WEIGHT * Weigh yourself every morning after using the bathroom. * Use the same scale. * Wear the same amount of clothing. * Write your weight down on a chart. * Call your Primary Care doctor if you gain more than 2-3 pounds in 1-2 days. MEDICATIONS * Use this discharge instruction sheet for medication instructions. * Take your medications at the time your doctor ordered. * Do not skip a dose of your medicines. * If you miss a dose of medicine, take it as soon as possible, but DO NOT DOUBLE A DOSE. * Read your medicine information when you get home. * Know all of the side effects of your medicine. If in doubt, ask your pharmacist * Call your Primary Care doctor's office if you have any side effects. * Be sure all of your doctors know what medicine and herbs you take (including cold, flu, and herbal medicine). Take the following with you to your follow-up doctor appointments: * Weight Chart * Medication List * List of questions Do not drink excessive alcohol, beer or wine. -DAILY STANDING WEIGHTS, FAX TO KYLE AT [facility]F [facility] - LOW SODIUM DIET <2000 MG DAILY - FLUID RESTRICTION < 1500 CC DAILY - CALL [facility]F [facility]GRAM FOR 2-3 LB WEIGHT GAIN OVERNIGHT OR 5 LB IN 1 WEEK Prescriptions: New sulfamethoxazole-trimethoprim [Bactrim DS] 800-160 mg tablet 1 tab PO BID 10 Days Qty: 20 RF: 0 Continued pantoprazole 20 mg tablet,delayed release (DR/EC) 20 mg PO DAILY RF: 0 Trelegy Ellipta 100-62.5-25 mcg Blister With Device 1 inh INHALATION DAILY RF: 0 acetaminophen [Tylenol] 325 mg Tablet 650 mg PO Q6 MDD 3G PRN (Reason: Fever Or Pain) RF: 0 insulin lispro 100 unit/mL Solution subcut UD RF: 0 insulin lispro [Humalog U-100 Insulin] 100 unit/mL Solution 35 unit SUBCUT DAILY RF: 0 potassium chloride [Klor-Con M20] 20 mEq Tablet,Er Particles/Crystals 20 meq PO DAILY RF: 0 levothyroxine 200 mcg Tablet 200 mcg PO DAILY RF: 0 Lactinex 1 million cell Tablet,Chewable 1 tab PO TID RF: 0 niacinamide 500 mg Tablet 500 mg PO TID RF: 0 albuterol sulfate [ProAir HFA] 90 mcg/actuation Hfa Aerosol Inhaler 2 puff INHALATION Q4H PRN (Reason: Shortness Of Breath) RF: 0 aspirin [Aspir-81] 81 mg Tablet,Delayed Release (Dr/Ec) 81 mg PO DAILY RF: 0 atorvastatin 40 mg tablet 40 mg PO DAILY RF: 0 bisacodyl 10 mg Suppository 10 mg VA DAILY PRN (Reason: Constipation) RF: 0 cholecalciferol (vitamin D3) 1,000 unit Tablet 2,000 unit PO DAILY RF: 0 clopidogrel 75 mg Tablet 75 mg PO DAILY RF: 0 ipratropium-albuterol 0.5 mg-3 mg(2.5 mg base)/3 mL Solution For Nebulization 3 ml INHALATION Q6 PRN (Reason: shortness of breath/wheezing) RF: 0 gabapentin 100 mg Capsule 100 mg PO TID RF: 0 ascorbic acid (vitamin C) 500 mg Tablet 500 mg PO BID RF: 0 multivitamin Tablet 1 tab PO DAILY RF: 0 prednisone 10 mg Tablet 30 mg PO DAILY RF: 0 magnesium hydroxide [Milk of Magnesia] 400 mg/5 mL Suspension 30 ml PO DIRECTED PRN (Reason: Constipation) RF: 0 insulin lispro [Humalog U-100 Insulin] 100 unit/mL Solution 20 unit SUBCUT AC RF: 0 clobetasol 0.05 % Cream 1 applic TOPICAL AMPM RF: 0 Fleet Enema 19-7 gram/118 mL Enema 118 ml VA DAILY PRN (Reason: constipation) RF: 0 nystatin 100,000 unit/gram Powder 1 applic TOPICAL TID RF: 0 Changed insulin glargine 100 unit/mL Solution 40 unit SUBCUT Q12 Qty: 0 RF: 0 furosemide 20 mg Tablet 40 mg PO DAILY Qty: 0 RF: 0 Stand-Alone Forms: [facility] Discharge Orders: Discharge Order (Routine); Ordered 04/11/19 Ordered By: Lance Milton Admission Data Admit Date/Time: 04/02/19 17:59 Attending Provider: Lance Milton Admit Provider: Wesley Crane Primary Care Provider: Abida Hodgson Other Providers: Wesley Crane ; Matty Eugene ; Diann Teixeira ; Jaya Flowers ; Wesley Muir ; Kanchan Pino ; Brandon Moreira ; Montserrat Taylor Jason L. ; Yeyo Zamudio Service: Telemetry Medical Other Interventions: Discharge Summary Assessment (RN) Last Done: 04/11/19 14:42
--- NOTE | 2019-04-11 15:50 | Infectious Disease Progress Nt ---
Date of Service April 11, 2019 Assessment & Plan (1) Staph aureus infection: Abscess of neck with methicillin resistant staph aureus, appears to be improving. Patient should continue on daptomycin, hopefully will be able to transition to Bactrim in the next day or so. Will follow. (2) Abscess of neck: Subjective Patient seen in follow-up for left neck infection. Offers no new complaints today. Remains afebrile. Tolerating apparent difficulty. Pain controlled. Review of Systems Review of Systems: All systems reviewed & are unremarkable except as noted in HPI & below Physical Exam Constitutional: WD/WN, vitals as above comfortable; no acute distress Eyes: PERRL, conjunctivae normal, anicteric sclerae ENMT: external ear and nose normal, oropharynx normal Neck: trachea midline, no thyromegaly neck nontender Respiratory: normal respiratory effort, lungs clear to auscultation normal percussion; does not use accessory muscles Cardiovascular: Rate/Rhythm: regular rate and regular rhythm Heart Sounds: normal S1 and normal S2; no gallop, no murmur and no cardiac rub Vessels: normal peripheral pulses; no JVD Gastrointestinal (Abdomen): normal bowel sounds, soft, nontender, no hepatosplenomegaly Musculoskeletal: no cyanosis or clubbing, extremities motor strength 5/5 Spine: thoracic spine normal to inspection and lumbar spine normal to inspection; no cervical spinal tenderness Skin: normal turgor, + rash (Diffuse macular erythematous fading rash) and + wound (Left neck with erythema and induration surrounding) Neurologic: patellar DTR's 2+ bilat, sensation intact no focal motor deficits Psychiatric: A+Ox3, euthymic affect Orientation: cooperative Lymphatic: no cervical or axillary lymphadenopathy no inguinal lymphadenop athy Results & Data Vital Signs (Past 12 Hours) Vital Signs Temp Pulse Resp BP BP Pulse Ox 04/11/19 15:44 36.7 C 60 20 126/67 118/55 L 98 04/11/19 14:42 36.7 C 60 20 126/67 118/55 L 98 04/11/19 11:25 36.7 C 60 20 118/55 L 98 04/11/19 07:18 36.5 C 81 20 126/67 97 04/11/19 05:12 36.5 C 62 18 108/66 93
== END 2019-04-11 16:12 | DRG 987 ==
LOC: ED 13:22 → SUATTDRO 17:59 → 1E 17:59 → 2W 04-03 15:17

== ENCOUNTER 2019-05-18 03:51 | Inpatient (IN) ==
[2019-05-18] MEDS ORDERED: ACETAMINOPHEN 500 MG TAB PO STA ×2 (03:56→04:11)
[2019-05-18] MEDS ORDERED: SODIUM CHLORIDE 0.9% 500 ML IV SCH (04:00)
[2019-05-18] MEDS ORDERED: VANCOMYCIN HCL 2,750 MG in SODIUM CHLORIDE 0.9% 500 ML IV ONE (04:05)
[2019-05-18] MEDS ORDERED: AZTREONAM 2,000 MG in DEXTROSE 5% 100 ML IV STA (04:05)
[2019-05-18] MEDS ORDERED: VANCOMYCIN CONSULT ACTIVE PRN ×2 (04:05→09:58)
[2019-05-18] MEDS ORDERED: LEVOFLOXACIN/D5W 750 MG/150 ML BAG IV SCH (04:15)
[2019-05-18 04:20] LABS: Basophils # (auto) 0.02 K/uL (0-0.2); Basophils % (auto) 0.1 %; Eosinophils # (auto) 0.01 K/uL (0-0.5); Eosinophils % (auto) 0.1 %; Hematocrit (blood only) 43.9 % (37-47); Hemoglobin 14.3 g/dL (12.0-16.0); Immature Granulocytes # (auto) 0.06 K/uL (0.00-0.02); Immature Granulocytes % (auto) 0.4 %; Lymphocytes # (auto) 1.24 K/uL (1.2-3.4); Lymphocytes % (auto) 7.9 %; Mean Corpuscular Hgb Conc 32.6 g/dL (32-36); Mean Corpuscular Volume 97.8 fL (80-100); Mean Platelet Volume 9.2 fL (7.4-10.4); Monocytes % (auto) 5.1 %; Neutrophils % (auto) 86.4 %; Platelet Count 223 K/uL (130-400); RDW Coefficient of Variation 13.6 % (11.5-14.5); RDW Standard Deviation 48.4 fL (36.4-46.3); Red Blood Count 4.49 M/uL (4.2-5.4); White Blood Count 15.73 K/uL (4.8-10.8)
[2019-05-18 04:31] LABS: Appearance Urine Clear (Clear); Bilirubin Urine Negative (Negative); Blood Urine Negative (Negative); Color Urine Yellow; Glucose Urine UA Negative (Negative); Ketones Urine Negative (Negative); Leukocyte Esterase Urine Negative (Negative); Nitrite Urine Negative (Negative); Protein Urine Negative (Negative); Specific Gravity Urine 1.016 (1.000-1.030); Urobilinogen Urine Negative (Negative); pH Urine 6.5 (4.5-7.5)
[2019-05-18 04:37] LABS: Alanine Aminotransferase 54 U/L (12-78); Albumin Level 3.2 gm/dl (3.4-5.0); Aspartate Aminotransferase 22 U/L (15-37); BUN Creatinine Ratio 25.8 (10-20); Blood Urea Nitrogen 19 mg/dl (7-18); Carbon Dioxide 37 mmol/L (21-32); Chloride 90 mmol/L (98-107); Creatinine Clr Calc Pharmacy 118.5 ml/min; Est GFR (African American) 106.2; Est GFR (Non-African American) 91.7; Glucose 140 mg/dl (70-99); Potassium 3.7 mmol/L (3.5-5.1); Sodium 133 mmol/L (136-145)
[2019-05-18 04:42] LABS: Albumin Globulin Ratio 0.7 (0.9-2); Alkaline Phosphatase 94 U/L (45-117); Globulin 4.3 gm/dl (2.5-4.0); Total Protein 7.5 gm/dl (6.4-8.2); Troponin I < 0.015 ng/ml (0-0.045)
--- NOTE | 2019-05-18 05:03 | Emergency Department Note ---
History of Present Illness General Chief complaint: Altered Mental Status Stated complaint: ALTERED MENTAL STATUS/FEVER Source: patient, EMS and other (SD staff-> report) Mode of arrival: EMS Limitations: altered mental status ( ) History of Present Illness Maximum Pain Intensity: 5 This patient is a 58-year-old female who presents to the emergency department with complaints of chest discomfort, diffuse body aches, shortness of breath and fever. Patient complained of chest pain earlier this evening and was evaluated by the intermediate physician. It was apparently determined that the patient's symptoms were "not likely to be cardiac" per nursing report. Patient became somewhat confused and developed a fever. She was c/o short of breath with an increased oxygen requirement from 4 L at baseline to 6 L currently. Patient was reportedly given 650 mg of Tylenol prior to arrival. She also had been given Percocet earlier today for her discomforts. Patient denies any difficulty with eating or drinking. She denies any urinary symptoms, vomiting or diarrhea. Home Medications Home Medications Medication Instructions Recorded Confirmed Type Lactinex 1 tab PO TID 11/05/18 05/18/19 History Trelegy Ellipta 1 inh INHALATION DAILY 11/05/18 05/18/19 History acetaminophen [Tylenol] 650 mg PO Q6 PRN MDD 3G/24hr 11/05/18 05/18/19 History albuterol sulfate [ProAir HFA] 2 puff INHALATION Q4H PRN 11/05/18 05/18/19 History aspirin [Aspir-81] 81 mg PO DAILY 11/05/18 05/18/19 History atorvastatin 40 mg PO DAILY 11/05/18 05/18/19 History cholecalciferol (vitamin D3) 2,000 unit PO DAILY 11/05/18 05/18/19 History clopidogrel 75 mg PO DAILY 11/05/18 05/18/19 History gabapentin 100 mg PO TID 11/05/18 05/18/19 History ipratropium-albuterol 3 ml INHALATION Q6 PRN 11/05/18 05/18/19 History levothyroxine 200 mcg PO DAILY 11/05/18 05/18/19 History niacinamide 500 mg PO TID 11/05/18 05/18/19 History pantoprazole 20 mg PO DAILY 11/05/18 05/18/19 History potassium chloride [Klor-Con M20] 20 meq PO DAILY 11/05/18 05/18/19 History ascorbic acid (vitamin C) 500 mg PO BID 01/15/19 05/18/19 History multivitamin 1 tab PO DAILY 01/15/19 05/18/19 History betamethasone dipropionate 1 applic TOPICAL Q8 PRN 05/18/19 05/18/19 History bumetanide 2 mg PO DAILY 05/18/19 05/18/19 History dextran 70-hypromellose 1 drp OPB BID 05/18/19 05/18/19 History [Artificial Tears (PF)] insulin glargine 55 unit SUBCUT Q12 05/18/19 05/18/19 History insulin lispro [Humalog U-100 0 unit SUBCUT ACHS 05/18/19 05/18/19 History Insulin] insulin lispro [Humalog U-100 30 unit SUBCUT AC 05/18/19 05/18/19 History Insulin] oxycodone 5 mg PO Q8 PRN 05/18/19 05/18/19 History oxycodone 10 mg PO Q8 PRN 05/18/19 05/18/19 History prednisone 30 mg PO DAILY 05/18/19 05/18/19 History Allergies Allergy/AdvReac Type Severity Reaction Status Date / Time Penicillins Allergy Intermediate RASH Verified 05/09/19 13:44 Past Med/Surg History Medical History Coronary atherosclerosis of pala coronary vessel (Chronic 01/05/13) " STEMI November of 2011 treated at [facility] with a PCI to the RCA" Diastolic CHF (Chronic) COPD (chronic obstructive pulmonary disease) (Chronic) Chronic respiratory failure with hypoxia (Chronic) Tobacco use disorder (Chronic) Chronic obstructive lung disease (Chronic 01/05/13) Cirrhosis of liver (Chronic) "autoimmune, 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" DM type 2 (diabetes mellitus, type 2) (Chronic) Morbid obesity with BMI of 40.0-44.9, adult (Chronic) Hypothyroidism (Chronic) Peripheral vascular disease (Chronic) Acute hyperglycemia (Inactive) Surgical History History of hysterectomy (Chronic 01/05/13) S/P tonsillectomy and adenoidectomy (Chronic) S/P cholecystectomy (Chronic) S/P coronary artery stent placement (Chronic) "11/2011 ISABEL to RCA" Family History Other Diabetes Heart disease Hypertension Social History Preferred Language: Slovak Communication Ability: Effective Visual Impairment: Partially Limited Hearing Ability: Hard of Hearing Blending Operator Required: No Beliefs That Will Affect Care: None marital status: Single marital status details: 2 children Current Living Situation: Jail Current Living Situation Comment: 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 [facility] current occupational status: disabled Other Information That Helps Us Care for You: No Feels Safe at Home: Yes Safety Concerns: Feels Safe At This Time Smoking Status: Former smoker Tobacco Type: cigarettes packs per day: 1 Do You Dip or Chew Tobacco: No Smoking End Date: states she quit recently but I cannot confirm this Hx Alcohol Use: No Hx Substance Use: No during the past year weight has: remained stable Review of Systems See HPI for pertinent positives & negatives. and A total of 10 systems reviewed and were otherwise negative Physical Exam Vital Signs Vital Signs - 24 hr 05/18/19 03:59 Temperature 38.8 C H Temperature Source Oral Sepsis Recent Fever Within 48 Hours Yes Sepsis New/Unexplained Change in Mental Status Yes Sepsis Action Taken by Nursing Physician Notified Pulse Rate 100 H Respiratory Rate 32 H Blood Pressure 133/66 Blood Pressure Mean 88 Pulse Oximetry 90 Oxygen Delivery Method Nasal Cannula Oxygen Flow Rate 6 Vital signs reviewed. General: Chronically ill-appearing 58-year-old female, in no significant distress. Patient is morbidly obese with nasal cannula oxygen in place. HEENT: No scleral icterus, PERRLA, neck supple. Atraumatic. Cardiovascular: Regular rate and rhythm, no extra sounds. Pulmonary: Clear to auscultation bilaterally, normal work of breathing. Abdomen: Soft, obese with mild diffuse tenderness. Nondistended, positive bowel sounds. Musculoskeletal: Atraumatic, no peripheral edema. Neurologic: Patient awake alert and unable to answer questions regarding date, location and year. Skin: Warm, dry, mild periumbilical yeast dermatitis. Course Administered Medications Albuterol (Duoneb) 3 ml INH Q4R CHELSEA Stop: 06/17/19 11:59 Last Admin: 05/20/19 03:51 Dose: 3 ml Documented by: [id number] Admin: 05/19/19 23:24 Dose: 3 ml Documented by: [id number] Admin: 05/19/19 18:46 Dose: 3 ml Documented by: [id number] Admin: 05/19/19 15:42 Dose: 3 ml Documented by: [id number] Admin: 05/19/19 11:21 Dose: 3 ml Documented by: [id number] Admin: 05/19/19 07:00 Dose: 3 ml Documented by: [id number] Admin: 05/19/19 03:47 Dose: 3 ml Documented by: [id number] Admin: 05/18/19 23:05 Dose: 3 ml Documented by: [id number] Admin: 05/18/19 19:51 Dose: 3 ml Documented by: [id number] Admin: 05/18/19 15:34 Dose: 3 ml Documented by: [id number] Admin: 05/18/19 11:43 Dose: 3 ml Documented by: [id number] Aspirin (Ecotrin Ectab) 81 mg PO DAILY CHELSEA Stop: 06/17/19 09:57 Last Admin: 05/20/19 08:08 Dose: 81 mg Documented by: [id number] Admin: 05/19/19 08:13 Dose: 81 mg Documented by: [id number] Admin: 05/18/19 12:49 Dose: 81 mg Documented by: [id number] Atorvastatin Calcium (Lipitor) 40 mg PO DAILY CHELSEA Stop: 06/17/19 09:57 Last Admin: 05/20/19 08:09 Dose: 40 mg Documented by: [id number] Admin: 05/19/19 08:13 Dose: 40 mg Documented by: [id number] Admin: 05/18/19 12:49 Dose: 40 mg Documented by: [id number] Betamethasone Dipropion Augmented (Diprolene 0.05%) 1 appln TOP Q8 PRN PRN Reason: bullous pemphigoid eruptions Last Admin: 05/18/19 10:46 Dose: 1 appln Documented by: [id number] Bumetanide (Bumex) 2 mg PO QAM CHELSEA Stop: 06/18/19 09:14 Last Admin: 05/20/19 08:08 Dose: 2 mg Documented by: [id number] Admin: 05/19/19 10:06 Dose: 2 mg Documented by: [id number] Carvedilol (Coreg) 3.125 mg PO BID CHELSEA Stop: 06/19/19 08:59 Last Admin: 05/20/19 09:42 Dose: 3.125 mg Documented by: [id number] Clopidogrel Bisulfate (Plavix) 75 mg PO DAILY CHELSEA Stop: 06/17/19 09:57 Last Admin: 05/20/19 08:11 Dose: 75 mg Documented by: [id number] Admin: 05/19/19 08:14 Dose: 75 mg Documented by: [id number] Admin: 05/18/19 12:50 Dose: 75 mg Documented by: [id number] Gabapentin (Neurontin) 100 mg PO TID CHELSEA Stop: 06/17/19 09:57 Last Admin: 05/20/19 08:10 Dose: 100 mg Documented by: [id number] Admin: 05/19/19 19:59 Dose: 100 mg Documented by: [id number] Admin: 05/19/19 13:04 Dose: 100 mg Documented by: [id number] Admin: 05/19/19 08:14 Dose: 100 mg Documented by: [id number] Admin: 05/18/19 21:44 Dose: 100 mg Documented by: [id number] Admin: 05/18/19 13:00 Dose: Not Given Documented by: [id number] Admin: 05/18/19 12:50 Dose: 100 mg Documented by: [id number] Famotidine 20 mg/ Syringe 5 mls @ 2.5 mls/min IV Q12 CHELSEA Stop: 06/17/19 09:57 Last Admin: 05/20/19 08:23 Dose: 2.5 mls/min Documented by: [id number] Admin: 05/19/19 19:59 Dose: 2.5 mls/min Documented by: [id number] Admin: 05/19/19 08:16 Dose: 2.5 mls/min Documented by: [id number] Admin: 05/18/19 21:47 Dose: 2.5 mls/min Documented by: [id number] Admin: 05/18/19 10:47 Dose: 2.5 mls/min Documented by: [id number] Ceftaroline Fosamil 600 mg/ (Sodium Chloride) 270 mls @ 270 mls/hr IV Q8H CHELSEA Stop: 05/25/19 12:59 Last Infusion: 05/20/19 05:35 Dose: 0 mls/hr Documented by: [id number] Admin: 05/20/19 04:29 Dose: 270 mls/hr Documented by: [id number] Infusion: 05/19/19 21:14 Dose: 0 mls/hr Documented by: [id number] Admin: 05/19/19 20:00 Dose: 270 mls/hr Documented by: [id number] Infusion: 05/19/19 14:24 Dose: 0 mls/hr Documented by: [id number] Admin: 05/19/19 13:04 Dose: 270 mls/hr Documented by: [id number] Infusion: 05/19/19 06:28 Dose: 0 mls/hr Documented by: [id number] Admin: 05/19/19 05:15 Dose: 270 mls/hr Documented by: [id number] Infusion: 05/18/19 23:07 Dose: 0 mls/hr Documented by: [id number] Admin: 05/18/19 21:42 Dose: 270 mls/hr Documented by: [id number] Infusion: 05/18/19 14:09 Dose: 0 mls/hr Documented by: [id number] Admin: 05/18/19 12:50 Dose: 270 mls/hr Documented by: [id number] Insulin Human Regular 250 (units/ Sodium Chloride) 250 mls @ 7.2 mls/hr IV .Q24H CHELSEA; Protocol Stop: 06/17/19 18:59 Last Titration: 05/20/19 06:59 Dose: 7.4 units/hr, 7.4 mls/hr Documented by: [id number] Cosigned by: [id number] Titration: 05/20/19 06:00 Dose: 7.4 units/hr, 7.4 mls/hr Documented by: [id number] Cosigned by: [id number] Titration: 05/20/19 05:00 Dose: 7.4 units/hr, 7.4 mls/hr Documented by: [id number] Cosigned by: [id number] Titration: 05/20/19 04:00 Dose: 7.4 units/hr, 7.4 mls/hr Documented by: [id number] Cosigned by: [id number] Titration: 05/20/19 03:30 Dose: 7.4 units/hr, 7.4 mls/hr Documented by: [id number] Cosigned by: [id number] Titration: 05/20/19 03:00 Dose: 0 units/hr, 0 mls/hr Documented by: [id number] Cosigned by: [id number] Titration: 05/20/19 02:00 Dose: 12.4 units/hr, 12.4 mls/hr Documented by: [id number] Cosigned by: [id number] Titration: 05/20/19 01:00 Dose: 10.3 units/hr, 10.3 mls/hr Documented by: [id number] Cosigned by: [id number] Titration: 05/20/19 00:00 Dose: 8.6 units/hr, 8.6 mls/hr Documented by: [id number] Cosigned by: [id number] Titration: 05/19/19 23:00 Dose: 8.6 units/hr, 8.6 mls/hr Documented by: [id number] Cosigned by: [id number] Titration: 05/19/19 22:00 Dose: 8.6 units/hr, 8.6 mls/hr Documented by: [id number] Cosigned by: [id number] Titration: 05/19/19 20:00 Dose: 7.2 units/hr, 7.2 mls/hr Documented by: [id number] Cosigned by: [id number] Titration: 05/19/19 18:55 Dose: 7.2 units/hr, 7.2 mls/hr Documented by: [id number] Cosigned by: [id number] Titration: 05/19/19 18:34 Dose: 7.2 units/hr, 7.2 mls/hr Documented by: [id number] Cosigned by: [id number] Titration: 05/19/19 17:08 Dose: 7.2 units/hr, 7.2 mls/hr Documented by: [id number] Cosigned by: [id number] Titration: 05/19/19 16:09 Dose: 7.2 units/hr, 7.2 mls/hr Documented by: [id number] Cosigned by: [id number] Titration: 05/19/19 15:12 Dose: 7.2 units/hr, 7.2 mls/hr Documented by: [id number] Cosigned by: [id number] Admin: 05/19/19 14:25 Dose: 9 units/hr, 9 mls/hr Documented by: [id number] Cosigned by: [id number] Titration: 05/19/19 14:25 Dose: 9 units/hr, 9 mls/hr Documented by: [id number] Cosigned by: [id number] Titration: 05/19/19 14:00 Dose: 9 units/hr, 9 mls/hr Documented by: [id number] Cosigned by: [id number] Titration: 05/19/19 13:00 Dose: 11.3 units/hr, 11.3 mls/hr Documented by: [id number] Cosigned by: [id number] Titration: 05/19/19 12:00 Dose: 11.3 units/hr, 11.3 mls/hr Documented by: [id number] Cosigned by: [id number] Titration: 05/19/19 11:00 Dose: 9.4 units/hr, 9.4 mls/hr Documented by: [id number] Cosigned by: [id number] Titration: 05/19/19 10:00 Dose: 11.8 units/hr, 11.8 mls/hr Documented by: [id number] Cosigned by: [id number] Titration: 05/19/19 09:00 Dose: 9.8 units/hr, 9.8 mls/hr Documented by: [id number] Cosigned by: [id number] Titration: 05/19/19 08:00 Dose: 8.2 units/hr, 8.2 mls/hr Documented by: [id number] Cosigned by: [id number] Titration: 05/19/19 07:14 Dose: 10.3 units/hr, 10.3 mls/hr Documented by: [id number] Cosigned by: [id number] Titration: 05/19/19 06:00 Dose: 8.6 units/hr, 8.6 mls/hr Documented by: [id number] Cosigned by: [id number] Titration: 05/19/19 05:00 Dose: 7.2 units/hr, 7.2 mls/hr Documented by: [id number] Cosigned by: [id number] Titration: 05/19/19 04:00 Dose: 7.2 units/hr, 7.2 mls/hr Documented by: [id number] Cosigned by: [id number] Titration: 05/19/19 03:00 Dose: 7.2 units/hr, 7.2 mls/hr Documented by: [id number] Cosigned by: [id number] Titration: 05/19/19 02:00 Dose: 7.2 units/hr, 7.2 mls/hr Documented by: [id number] Cosigned by: [id number] Titration: 05/19/19 01:00 Dose: 9 units/hr, 9 mls/hr Documented by: [id number] Cosigned by: [id number] Titration: 05/19/19 00:00 Dose: 6.4 units/hr, 6.4 mls/hr Documented by: [id number] Cosigned by: [id number] Titration: 05/18/19 23:15 Dose: 5.3 units/hr, 5.3 mls/hr Documented by: [id number] Cosigned by: [id number] Titration: 05/18/19 22:15 Dose: 5.3 units/hr, 5.3 mls/hr Documented by: [id number] Cosigned by: [id number] Titration: 05/18/19 21:00 Dose: 5.3 units/hr, 5.3 mls/hr Documented by: [id number] Cosigned by: [id number] Titration: 05/18/19 20:00 Dose: 5.3 units/hr, 5.3 mls/hr Documented by: [id number] Cosigned by: [id number] Admin: 05/18/19 19:11 Dose: 5.3 units/hr, 5.3 mls/hr Documented by: [id number] Cosigned by: [id number] Insulin Aspart (Novolog Flexpen) 0 units SC Q6 CHELSEA Stop: 06/17/19 17:59 Last Admin: 05/18/19 18:07 Dose: 10 units Documented by: [id number] Cosigned by: [id number] Insulin Aspart (Novolog Flexpen) 0 units SC PCHS CHELSEA Stop: 06/17/19 20:59 Last Admin: 05/20/19 08:12 Dose: 14 units Documented by: [id number] Cosigned by: [id number] Admin: 05/19/19 20:59 Dose: Not Given Documented by: [id number] Cosigned by: [id number] Admin: 05/19/19 18:47 Dose: Not Given Documented by: [id number] Cosigned by: [id number] Admin: 05/19/19 12:12 Dose: 8 units Documented by: [id number] Cosigned by: [id number] Admin: 05/19/19 08:14 Dose: Not Given Documented by: [id number] Cosigned by: [id number] Admin: 05/18/19 21:45 Dose: Not Given Documented by: [id number] Cosigned by: [id number] Insulin Glargine (Lantus Solostar Pen) 0 units SC BID CHELSEA; Protocol Stop: 06/18/19 20:59 Last Admin: 05/20/19 08:08 Dose: 50 units Documented by: [id number] Cosigned by: [id number] Admin: 05/19/19 20:59 Dose: 50 units Documented by: [id number] Cosigned by: [id number] Levothyroxine Sodium (Synthroid) 200 mcg PO DAILYBB [facility] Stop: 06/17/19 09:57 Last Admin: 05/20/19 06:11 Dose: 200 mcg Documented by: [id number] Admin: 05/19/19 06:08 Dose: 200 mcg Documented by: [id number] Admin: 05/18/19 12:50 Dose: 200 mcg Documented by: [id number] Pantoprazole Sodium (Protonix) 40 mg PO DAILY CHELSEA Stop: 06/17/19 09:57 Last Admin: 05/20/19 08:11 Dose: 40 mg Documented by: [id number] Admin: 05/19/19 08:14 Dose: 40 mg Documented by: [id number] Admin: 05/18/19 12:50 Dose: 40 mg Documented by: [id number] Spironolactone (Aldactone) [facility] Stop: 06/18/19 09:14 Last Admin: 05/20/19 08:07 Dose: 25 mg Documented by: [id number] Admin: 05/19/19 10:06 Dose: 25 mg Documented by: [id number] Discontinued Medications Acetaminophen (Tylenol) 1,000 mg PO ONE STA Stop: 05/18/19 03:57 Last Admin: 05/18/19 04:11 Dose: 500 mg Documented by: [id number] Acetaminophen (Tylenol) 500 mg PO NOW STA Stop: 05/18/19 04:12 Last Admin: 05/18/19 04:27 Dose: Not Given Documented by: [id number] Albuterol (Duoneb) Confirm Administered Dose 3 ml .ROUTE .STK-MED ONE Stop: 05/18/19 08:18 Last Admin: 05/18/19 08:30 Dose: 3 ml Documented by: [id number] Albuterol (Duoneb) 3 ml NEB NOW STA Stop: 05/18/19 08:22 Last Admin: 05/18/19 08:21 Dose: Not Given Documented by: [id number] Enoxaparin Sodium (Lovenox) 40 mg SQ BID CHELSEA Stop: 06/17/19 20:59 Last Admin: 05/20/19 08:10 Dose: 40 mg Documented by: [id number] Admin: 05/19/19 19:59 Dose: 40 mg Documented by: [id number] Admin: 05/19/19 08:13 Dose: 40 mg Documented by: [id number] Admin: 05/18/19 21:43 Dose: 40 mg Documented by: [id number] Enoxaparin Sodium (Lovenox) 20 mg SQ 0930 ONE Stop: 05/20/19 09:31 Last Admin: 05/20/19 09:42 Dose: 20 mg Documented by: [id number] Furosemide (Lasix) 40 mg IV NOW STA Stop: 05/18/19 18:42 Last Admin: 05/18/19 19:15 Dose: 40 mg Documented by: [id number] Hydrocortisone Sodium Succinate (Solu-Cortef) 100 mg IV NOW STA Stop: 05/18/19 07:47 Last Admin: 05/18/19 08:35 Dose: 100 mg Documented by: [id number] Sodium Chloride (Nss) 500 mls @ 999 mls/hr IV .Q31M CHELSEA Stop: 05/18/19 04:30 Last Infusion: 05/18/19 04:48 Dose: 0 mls/hr Documented by: [id number] Admin: 05/18/19 04:11 Dose: 999 mls/hr Documented by: [id number] Aztreonam 2,000 mg/ Dextrose 110 mls @ 100 mls/hr IV NOW STA; Protocol Stop: 05/18/19 05:10 Last Infusion: 05/18/19 06:15 Dose: 0 mls/hr Documented by: [id number] Admin: 05/18/19 05:08 Dose: 100 mls/hr Documented by: [id number] Vancomycin HCl 2,750 mg/ (Sodium Chloride) 555 mls @ 200 mls/hr IV NOW ONE; Protocol Stop: 05/18/19 06:51 Last Infusion: 05/18/19 09:01 Dose: 0 mls/hr Documented by: [id number] Admin: 05/18/19 04:32 Dose: 200 mls/hr Documented by: [id number] Levofloxacin/Dextrose (Levaquin/D5w) 750 mg in 150 mls @ 100 mls/hr IV Q24H CHELSEA Stop: 05/20/19 04:14 Last Infusion: 05/18/19 06:32 Dose: 0 mls/hr Documented by: [id number] Admin: 05/18/19 04:52 Dose: 100 mls/hr Documented by: [id number] Sodium Chloride (Nss) 500 mls @ 999 mls/hr IV .Q31M ONE Stop: 05/18/19 07:51 Last Infusion: 05/18/19 09:20 Dose: 0 mls/hr Documented by: [id number] Admin: 05/18/19 08:46 Dose: 999 mls/hr Documented by: [id number] Sodium Chloride (Nss 1000ml) 1,000 mls @ 999 mls/hr IV .Q1H1M ONE Stop: 05/18/19 09:41 Last Infusion: 05/18/19 11:34 Dose: 0 mls/hr Documented by: [id number] Admin: 05/18/19 09:27 Dose: 999 mls/hr Documented by: [id number] Parenteral Electrolytes (Normosol-R) 1,000 mls @ 125 mls/hr IV .Q8H CHELSEA Stop: 06/17/19 09:57 Last Admin: 05/18/19 18:04 Dose: Not Given Documented by: [id number] Infusion: 05/18/19 18:03 Dose: 0 mls/hr Documented by: [id number] Admin: 05/18/19 10:58 Dose: 150 mls/hr Documented by: [id number] Levofloxacin/Dextrose (Levaquin/D5w) 750 mg in 150 mls @ 100 mls/hr IV Q24H CHELSEA Stop: 05/24/19 06:29 Last Infusion: 05/19/19 06:08 Dose: 0 mls/hr Documented by: [id number] Admin: 05/19/19 04:19 Dose: 100 mls/hr Documented by: [id number] Methylprednisolone 60 mg/ (Syringe) 0.96 mls @ 1.5 mls/min IV Q6H CHELSEA Stop: 06/17/19 11:59 Last Admin: 05/19/19 05:15 Dose: 1.5 mls/min Documented by: [id number] Admin: 05/19/19 00:04 Dose: 1.5 mls/min Documented by: [id number] Admin: 05/18/19 18:02 Dose: 1.5 mls/min Documented by: [id number] Admin: 05/18/19 12:50 Dose: 1.5 mls/min Documented by: [id number] Methylprednisolone 60 mg/ (Syringe) 0.96 mls @ 1.5 mls/min IV Q8H CHELSEA Stop: 06/18/19 11:59 Last Admin: 05/20/19 03:49 Dose: 1.5 mls/min Documented by: [id number] Admin: 05/19/19 19:59 Dose: 1.5 mls/min Documented by: [id number] Admin: 05/19/19 12:16 Dose: 1.5 mls/min Documented by: [id number] Acetazolamide 500 mg/ Syringe 5 mls @ 5 mls/min IV 0930 ONE Stop: 05/20/19 09:31 Last Admin: 05/20/19 09:48 Dose: 5 mls/min Documented by: [id number] Chlorothiazide Sodium 500 mg/ (Dextrose) 68 mls @ 200 mls/hr IV 0930 ONE Stop: 05/20/19 09:50 Last Admin: 05/20/19 09:48 Dose: 200 mls/hr Documented by: [id number] Ibuprofen (Motrin) 600 mg PO NOW STA Stop: 05/18/19 07:23 Last Admin: 05/18/19 08:26 Dose: 600 mg Documented by: [id number] Insulin Aspart (Novolog Flexpen) 0 units SC ACHS CHELSEA Stop: 06/17/19 11:29 Last Admin: 05/18/19 13:15 Dose: 3 units Documented by: [id number] Cosigned by: [id number] Insulin Glargine (Lantus Solostar Pen) 50 units SC ONE ONE Stop: 05/18/19 20:01 Last Admin: 05/18/19 21:42 Dose: 50 units Documented by: [id number] Cosigned by: [id number] Insulin Glargine (Lantus Solostar Pen) 50 units SC NOW STA Stop: 05/19/19 09:16 Last Admin: 05/19/19 10:06 Dose: 50 units Documented by: [id number] Cosigned by: [id number] Insulin Human Regular (Novolin R Bolus From Bag) 5.5 units IV ONE ONE Stop: 05/18/19 19:01 Last Admin: 05/18/19 19:12 Dose: 5.5 units Documented by: [id number] Cosigned by: [id number] Ioversol (Optiray 320 125ml) 125 ml IV ONCE PRN PRN Reason: Interaction Checking Stop: 05/22/19 06:19 Last Admin: 05/18/19 06:20 Dose: 118 ml Documented by: [id number] Miscellaneous (Insulin Protocol Goal Range) 1 ea N/A ONE ONE Stop: 05/18/19 18:54 Last Admin: 05/18/19 19:12 Dose: 1 ea Documented by: [id number] Miscellaneous (Insulin Protocol Severe Stress) 1 ea N/A ONE ONE Stop: 05/18/19 18:54 Last Admin: 05/18/19 19:13 Dose: 1 ea Documented by: [id number] Miscellaneous Information (Nursing To Pharmacy Communication) 1 ea N/A ONE ONE Stop: 05/18/19 18:24 Last Admin: 05/18/19 19:12 Dose: 1 ea Documented by: [id number] Pneumococcal Polyvalent Vaccine (Pneumovax-23) 25 mcg IM .ONCE ONE Stop: 05/18/19 12:31 Last Admin: 05/19/19 08:16 Dose: Not Given Documented by: [id number] Potassium Chloride (Klor-Con M20) 60 meq PO NOW STA Stop: 05/18/19 18:42 Last Admin: 05/18/19 19:15 Dose: 60 meq Documented by: [id number] Potassium Chloride (Klor-Con Pwd) 40 meq PO 0915 ONE Stop: 05/20/19 09:16 Last Admin: 05/20/19 09:42 Dose: 40 meq Documented by: [id number] Medical Decision Making Differential Diagnosis mdm Differential includes acute coronary syndrome, myocardial infarction, CVA, TIA, anemia, infection, pneumonia, UTI, pyelonephritis, poor nutrition, dehydration, electrolyte disturbance,hypoglycemia. Medical Records Attestation: I reviewed the patient's medical records. Laboratory Data Result diagrams: 05/20/19 04:03 05/20/19 04:03 Lab Results 05/18/19 05/18/19 05/18/19 Range/Units 03:30 03:30 03:30 WBC 15.73 H (4.8-10.8) K/uL RBC 4.49 (4.2-5.4) M/uL Hgb 14.3 (12.0-16.0) g/dL Hct 43.9 (37-47) % MCV 97.8 (80-100) fL MCH 31.8 (25-34) pg MCHC 32.6 (32-36) g/dL RDW Std Deviation 48.4 H (36.4-46.3) fL RDW Coeff of Ministerio 13.6 (11.5-14.5) % Plt Count 223 (130-400) K/uL MPV 9.2 (7.4-10.4) fL Immature Gran % (Auto) 0.4 % Neut % (Auto) 86.4 % Lymph % (Auto) 7.9 % [place] % (Auto) 5.1 % Eos % (Auto) 0.1 % Baso % (Auto) 0.1 % Immature Gran # (Auto) 0.06 H (0.00-0.02) K/uL Neut # (Auto) 13.60 H (1.4-6.5) K/uL Lymph # (Auto) 1.24 (1.2-3.4) K/uL [place] # (Auto) 0.80 H (0.11-0.59) K/uL Eos # (Auto) 0.01 (0-0.5) K/uL Baso # (Auto) 0.02 (0-0.2) K/uL PT (9.0-12.0) Seconds INR (0.9-1.1) Sodium 133 L (136-145) mmol/L Potassium 3.7 (3.5-5.1) mmol/L Chloride 90 L (98-107) mmol/L Carbon Dioxide 37 H (21-32) mmol/L Anion Gap 6.0 (3-11) BUN 19 H (7-18) mg/dl Creatinine 0.72 (0.6-1.2) mg/dl Est Cr Clr Drug Dosing 118.5 ml/min Est GFR ( Amer) 106.2 Est GFR (Non-Af Amer) 91.7 BUN/Creatinine Ratio 25.8 H (10-20) Glucose 140 H (70-99) mg/dl POC Glucose (70-99) Lactate (0.4-2.0) mmol/L Calcium 10.0 (8.5-10.1) mg/dl Total Bilirubin 1.0 (0.2-1) mg/dl AST 22 (15-37) U/L ALT 54 (12-78) U/L Alkaline Phosphatase 94 (45-117) U/L Troponin I < 0.015 (0-0.045) ng/ml Total Protein 7.5 (6.4-8.2) gm/dl Albumin 3.2 L (3.4-5.0) gm/dl Globulin 4.3 H (2.5-4.0) gm/dl Albumin/Globulin Ratio 0.7 L (0.9-2) Procalcitonin 0.25 (0-0.5) ng/ml Urine Color Urine Appearance (Clear) Urine pH (4.5-7.5) Ur Specific [place] (1.000-1.030) Urine Protein (Negative) Urine Glucose (UA) (Negative) Urine Ketones (Negative) Urine Blood (Negative) Urine Nitrite (Negative) Urine Bilirubin (Negative) Urine Urobilinogen (Negative) Ur Leukocyte Esterase (Negative) Bld Cult Staph aureus PCR (Negative) Blood Culture MRSA PCR (Negative) 05/18/19 05/18/19 05/18/19 Range/Units 03:30 04:23 04:43 WBC (4.8-10.8) K/uL RBC (4.2-5.4) M/uL Hgb (12.0-16.0) g/dL Hct (37-47) % MCV (80-100) fL MCH (25-34) pg MCHC (32-36) g/dL RDW Std Deviation (36.4-46.3) fL RDW Coeff of Ministerio (11.5-14.5) % Plt Count (130-400) K/uL MPV (7.4-10.4) fL Immature Gran % (Auto) % Neut % (Auto) % Lymph % (Auto) % [place] % (Auto) % Eos % (Auto) % Baso % (Auto) % Immature Gran # (Auto) (0.00-0.02) K/uL Neut # (Auto) (1.4-6.5) K/uL Lymph # (Auto) (1.2-3.4) K/uL [place] # (Auto) (0.11-0.59) K/uL Eos # (Auto) (0-0.5) K/uL Baso # (Auto) (0-0.2) K/uL PT 10.4 (9.0-12.0) Seconds INR 1.0 (0.9-1.1) Sodium (136-145) mmol/L Potassium (3.5-5.1) mmol/L Chloride (98-107) mmol/L Carbon Dioxide (21-32) mmol/L Anion Gap (3-11) BUN (7-18) mg/dl Creatinine (0.6-1.2) mg/dl Est Cr Clr Drug Dosing ml/min Est GFR ( Amer) Est GFR (Non-Af Amer) BUN/Creatinine Ratio (10-20) Glucose (70-99) mg/dl POC Glucose (70-99) Lactate (0.4-2.0) mmol/L Calcium (8.5-10.1) mg/dl Total Bilirubin (0.2-1) mg/dl AST (15-37) U/L ALT (12-78) U/L Alkaline Phosphatase (45-117) U/L Troponin I (0-0.045) ng/ml Total Protein (6.4-8.2) gm/dl Albumin (3.4-5.0) gm/dl Globulin (2.5-4.0) gm/dl Albumin/Globulin Ratio (0.9-2) Procalcitonin (0-0.5) ng/ml Urine Color Yellow Urine Appearance Clear (Clear) Urine pH 6.5 (4.5-7.5) Ur Specific [place] 1.016 (1.000-1.030) Urine Protein Negative (Negative) Urine Glucose (UA) Negative (Negative) Urine Ketones Negative (Negative) Urine Blood Negative (Negative) Urine Nitrite Negative (Negative) Urine Bilirubin Negative (Negative) Urine Urobilinogen Negative (Negative) Ur Leukocyte Esterase Negative (Negative) Bld Cult Staph aureus PCR Positive A (Negative) Blood Culture MRSA PCR Positive A (Negative) 05/18/19 05/18/19 Range/Units 04:48 05:46 WBC (4.8-10.8) K/uL RBC (4.2-5.4) M/uL Hgb (12.0-16.0) g/dL Hct (37-47) % MCV (80-100) fL MCH (25-34) pg MCHC (32-36) g/dL RDW Std Deviation (36.4-46.3) fL RDW Coeff of Ministerio (11.5-14.5) % Plt Count (130-400) K/uL MPV (7.4-10.4) fL Immature Gran % (Auto) % Neut % (Auto) % Lymph % (Auto) % [place] % (Auto) % Eos % (Auto) % Baso % (Auto) % Immature Gran # (Auto) (0.00-0.02) K/uL Neut # (Auto) (1.4-6.5) K/uL Lymph # (Auto) (1.2-3.4) K/uL [place] # (Auto) (0.11-0.59) K/uL Eos # (Auto) (0-0.5) K/uL Baso # (Auto) (0-0.2) K/uL PT (9.0-12.0) Seconds INR (0.9-1.1) Sodium (136-145) mmol/L Potassium (3.5-5.1) mmol/L Chloride (98-107) mmol/L Carbon Dioxide (21-32) mmol/L Anion Gap (3-11) BUN (7-18) mg/dl Creatinine (0.6-1.2) mg/dl Est Cr Clr Drug Dosing ml/min Est GFR ( Amer) Est GFR (Non-Af Amer) BUN/Creatinine Ratio (10-20) Glucose (70-99) mg/dl POC Glucose 158 H (70-99) Lactate 2.3 H* (0.4-2.0) mmol/L Calcium (8.5-10.1) mg/dl Total Bilirubin (0.2-1) mg/dl AST (15-37) U/L ALT (12-78) U/L Alkaline Phosphatase (45-117) U/L Troponin I (0-0.045) ng/ml Total Protein (6.4-8.2) gm/dl Albumin (3.4-5.0) gm/dl Globulin (2.5-4.0) gm/dl Albumin/Globulin Ratio (0.9-2) Procalcitonin (0-0.5) ng/ml Urine Color Urine Appearance (Clear) Urine pH (4.5-7.5) Ur Specific [place] (1.000-1.030) Urine Protein (Negative) Urine Glucose (UA) (Negative) Urine Ketones (Negative) Urine Blood (Negative) Urine Nitrite (Negative) Urine Bilirubin (Negative) Urine Urobilinogen (Negative) Ur Leukocyte Esterase (Negative) Bld Cult Staph aureus PCR (Negative) Blood Culture MRSA PCR (Negative) Imaging Data Attestation: I personally reviewed and interpreted this imaging study as follows: My Impression: Chest x-ray to my interpretation is limited secondary to body habitus. Left greater than right basilar obscuration of the heart border, likely pneumonia versus atelectasis Radiologist's Impression: CT angio chest PE protocol CT DOSE: 666.31 mGycm HISTORY: Chest pain PE vs PNA TECHNIQUE: Multiaxial CT images of the chest were performed following the intravenous administration of contrast to evaluate the pulmonary arteries. Maximal intensity projection images were also obtained. A dose lowering technique was utilized adhering to the principles of ALARA. COMPARISON STUDY: 04/02/2019 FINDINGS: There is a normal caliber thoracic aorta with no evidence for dissection. There is no evidence for pulmonary embolus. There are findings of ectopic consolidative infiltrative process left lung base. Mild atelectatic changes right base. There is a very small left pleural effusion. IMPRESSION: 1. No evidence of pulmonary embolus. 2. Mild cardiomegaly with components of prominent pulmonary vasculature. 3. Consolidative infiltrate left lung base combined with small left and to lesser extent right basilar pleural effusion. The above report was generated using voice recognition software. It may contain grammatical, syntax or spelling errors. Electronically signed by: Harvey Blevins M.D. 05/18/2019 6:27 AM Dictated: 05/18/19623 Transcribed: 05/18/19623 ECG Data Attestation: I personally reviewed and interpreted this ECG as follows: Indication: altered mental status and SOB/dyspnea Rate (beats per minute): 101 Rhythm: sinus tachycardia Findings: + other (poor R wave progression, T wave abnl laterally) and + PAC Blood Pressure Blood Pressure Findings: Normal blood pressure Blood Pressure Disposition: did not require urgent referral MDM Narrative This pt was evaluated and noted to be febrile, tachy and with increased O2 requirement. Pt was given additional 500 mg po tylenol. IVF were initiated. BC were obtained. Pt has PCN allergy, she was given IV levaquin, aztreonam and vancomycin as she has a PCN allergy. CXR reveals a L>R basilar consolidation, but study is limited to body habitus. CT angio was performed and is c/w PNA and effusion. Pt did require po ibuprofen for continued fever. Pt was awake and asking for ice chips, which she was provided sparingly. Lactate was found to be 2.3. Consultation with the hospitalist was placed and Dr Marti will evaluate the pt for further management. Impression & Plan LLL pneumonia, Sepsis, Pleural effusion Critical Care Time Critical Care Time: Yes (30) The high probability of a clinically significant, sudden or life threatening deterioration of the 30 system(s) required my full and direct attention, intervention and personal management. The aggregate critical care time was 30 minutes. This time is in addition to time spent performing reported procedures but includes the following: [x] Data Review and interpretation [x] Patient assessment and monitoring of vital signs [x] Documentation [x] Medication orders and management Discharge Plan Visit Data *Final* Discharge Date/Time: 05/18/19 09:24 Chief Complaint: Altered Mental Status Stated Complaint: ALTERED MENTAL STATUS/FEVER Other Complaint: Fever ED Provider: Ghada Ortiz Discharge Problem: LLL pneumonia, Sepsis, Pleural effusion Patient Disposition: Admitted As Inpatient Discharge Instructions Interventions: ED Discharge Assessment Last Done: 05/18/19 09:24 Discharge Problem: LLL pneumonia Qualifiers: Pneumonia type: due to unspecified organism Qualified Code(s): J18.1 - Lobar pneumonia, unspecified organism Sepsis Qualifiers: Sepsis type: sepsis due to unspecified organism Qualified Code(s): A41.9 - Sepsis, unspecified organism
[2019-05-18] MEDS ORDERED: OPTIRAY 320 125ml IV PRN (06:20)
--- NOTE | 2019-05-18 06:25 | XRay Report ---
XR chest 1V portable CLINICAL HISTORY: fever dyspnea COMPARISON STUDY: 04/03/2019 FINDINGS: Moderate stable cardiomegaly. Moderate prominence of the pulmonary vasculature. Diaphragms are smooth. Possible small left pleural effusion versus left basilar consolidation. IMPRESSION: 1. Stable cardiomegaly. 2. Pulmonary vascular congestion. 3. Potential small effusion versus parenchymal infiltrate left lung base The above report was generated using voice recognition software. It may contain grammatical, syntax or spelling errors. Electronically signed by: Harvey Blevins M.D. 05/18/2019 6:23 AM
--- NOTE | 2019-05-18 06:29 | CT Scan Report ---
CT angio chest PE protocol CT DOSE: 666.31 mGycm HISTORY: Chest pain PE vs PNA TECHNIQUE: Multiaxial CT images of the chest were performed following the intravenous administration of contrast to evaluate the pulmonary arteries. Maximal intensity projection images were also obtaine d. A dose lowering technique was utilized adhering to the principles of ALARA. COMPARISON STUDY: 04/02/2019 FINDINGS: There is a normal caliber thoracic aorta with no evidence for dissection. There is no evide nce for pulmonary embolus. There are findings of ectopic consolidative infiltrative process left lung base. Mild atelectatic changes right base. There is a very small left pleural effusion. IMPRESSION: 1. No evidence of pulmonary embolus. 2. Mild cardiomegaly with components of prominent pulmonary vasculature. 3. Consolidative infiltrate left lung base combined with small left and to lesser extent right basila r pleural effusion. The above report was generated using voice recognition software. It may contain grammatical, syntax or spelling errors. Electronically signed by: Harvey Blevins M.D. 05/18/2019 6:27 AM
[2019-05-18] MEDS ORDERED: SODIUM CHLORIDE 0.9% 500 ML IV ONE (07:21)
[2019-05-18] MEDS ORDERED: IBUPROFEN 600 MG TAB PO STA (07:22)
[2019-05-18] MEDS ORDERED: HYDROCORTISONE SOD SUCCINATE 100 MG/2 ML VIAL IV STA (07:46)
--- NOTE | 2019-05-18 07:46 | History & Physical Report ---
Date of Service May 18, 2019 Assessment & Plan (1) Severe sepsis: 2nd to LLL pneumonia as confirmed on CT chest. Give 30cc/kg of NS boluses (can use adjusted body weight). Repeat lactate now. Follow blood cx's. Supportive care for respiratory issues. Present on Admission?: Yes (2) LLL pneumonia: As seen on CT chest. Certainly at risk of gram negatives as well as MRSA (just had MRSA furuncle of neck drained during last month's admission). Continue broad-spectrum IV antibiotics including cefepime, levaquin, and vancomycin. Change NC O2 to BIPAP now. Check VBG now. Spoke with Dr Eugene from ICU - plan to admit to ICU as status is tenuous. Check flu PCR to be complete. Present on Admission?: Yes (3) Acute on chronic respiratory failure with hypoxia and hypercapnia: Acute component 2nd to LLL pneumonia and COPD flare. Chronic - COPD, GEETHA, OHS, etc. BIPAP now. Keep O2 sats 90-92%. Duoneb now, then q4h thereafter. IV steroids. IV antibiotics. Supportive care. At high risk of worsening status and need for intubation/mech ventilation. Patient is full code. Uncertain if patient uses BIPAP at half-way for GEETHA but suspect she doesn't (just uses 4 L NC O2 chronically). Present on Admission?: Yes (4) Metabolic encephalopathy: Likely due to sepsis/pneumonia. Cannot rule out hypercarbia - check VBG now. Check ammonia level in light of cirrhosis. Check flu test as well. Avoid hyperoxia; keep sats low 90s. Avoid narcotics. Keep euglycemic. Present on Admission?: Yes (5) COPD (chronic obstructive pulmonary disease): with exacerbation. Start solumedrol 60mg IV q6h. Nebs q4h. BIPAP. Supportive care. Present on Admission?: Yes (6) Coronary atherosclerosis of makah coronary vessel: Resume asa, plavix, statin when able to take PO. EKG without ischemic changes. Chest pain seems to be musculoskeletal - it IS reproducible on exam, and tropon in is negative. Present on Admission?: Yes (7) Diastolic CHF: Is volume contracted clinically. Hold bumex. Hydrate in light of hypotension and severe sepsis. Present on Admission?: No (8) Tobacco use disorder: Offer nicoderm patch if truly still smoking at SNF. Present on Admission?: No (9) Cirrhosis of liver: 2nd to ABDI and/or autoimmune causes. Check ammonia level due to altered MS. INR stable. LFTs stable. Present on Admission?: Yes (10) DM type 2 (diabetes mellitus, type 2): HOLD sc insulin while NPO. Pharmacy glycemic consult while in ICU. Check BSG now. Present on Admission?: Yes (11) Hypothyroidism: TSH within the last 2 months wnl. Cont synthroid. Present on Admission?: Yes (12) Hyponatremia: Due to volume contraction. Hydrate. BMP am. Present on Admission?: Yes (13) Bullous pemphigoid: Controlled. No active bullae at this time. On chronic prednisone 30mg/day and niacinamide 500mg TID. Giving stress dose steroids for sepsis and COPD. Present on Admission?: Yes (14) Chest pain: Seems musculoskeletal. Reproducible on exam; EKG w/o ischemic changes; troponin negative. Present on Admission?: Yes (15) DVT prophylaxis: lovenox 40mg daily. History of Present Illness Chief Complaint: fever, altered mental status Primary Care Provider: [facility] Chronically ill 58yo female with numerous medical problems including morbid obesity with BMI of about 60, chronic hypoxic/hypercarbic respiratory failure on 4 L NC continuously, ABDI cirrhosis, T2DM, CAD, chronic diastolic CHF, GEETHA, and recently diagnosed bullous pemphigoid on chronic prednisone 30mg/day - presenting from [facility] with altered mental status, sob, chest pain, cough, and fever. During my assessment the patient was markedly dyspneic and could only talk in broken sentences. She asked repeatedly for ice chips or sips of water. She could not tell me how long her symptoms had been going on but it seems like she was ill for 2-3 days prior to arrival today. According to half-way documentation she had "vague complaints" at about 2300 last evening including mild SOB. She also c/o chest discomfort and was given oxycodone at that time. About 0230 she had a documented temp of 102.3 degrees, was tachypneic, and BP was 93/67. BSG was 172. Documentation stated she was confused at that time and complaining of diffuse pain. EMS was ultimately summoned to [facility] and she was brought to [facility] ER. In the ER she was again tachycardic, tachypneic, febrile, and hypotensive. She was confused, stating it was Tuesday. She told me she was still smoking at [place], then told me she wasn't any longer. She was given broad-spectrum IV abx (aztreonam, levaquin, vancomycin) and given at least 1 liter of NS. EMS records also show she received 250cc bolus in the ambulance en route. Patient was hospitalized at [facility] in March for acute/chronic respiratory failure due to diastolic CHF. She required BIPAP during that stay. She also had a MRSA furuncle that required drainage by gen surg. Allergies Allergy/AdvReac Type Severity Reaction Status Date / Time Penicillins Allergy Intermediate RASH Verified 05/09/19 13:44 Home Medications Home Medications Medication Instructions Recorded Confirmed Type Lactinex 1 tab PO TID 11/05/18 05/18/19 History Trelegy Ellipta 1 inh INHALATION DAILY 11/05/18 05/18/19 History acetaminophen [Tylenol] 650 mg PO Q6 PRN MDD 3G/24hr 11/05/18 05/18/19 History albuterol sulfate [ProAir HFA] 2 puff INHALATION Q4H PRN 11/05/18 05/18/19 History aspirin [Aspir-81] 81 mg PO DAILY 11/05/18 05/18/19 History atorvastatin 40 mg PO DAILY 11/05/18 05/18/19 History cholecalciferol (vitamin D3) 2,000 unit PO DAILY 11/05/18 05/18/19 History clopidogrel 75 mg PO DAILY 11/05/18 05/18/19 History gabapentin 100 mg PO TID 11/05/18 05/18/19 History ipratropium-albuterol 3 ml INHALATION Q6 PRN 11/05/18 05/18/19 History levothyroxine 200 mcg PO DAILY 11/05/18 05/18/19 History niacinamide 500 mg PO TID 11/05/18 05/18/19 History pantoprazole 20 mg PO DAILY 11/05/18 05/18/19 History potassium chloride [Klor-Con M20] 20 meq PO DAILY 11/05/18 05/18/19 History ascorbic acid (vitamin C) 500 mg PO BID 01/15/19 05/18/19 History multivitamin 1 tab PO DAILY 01/15/19 05/18/19 History betamethasone dipropionate 1 applic TOPICAL Q8 PRN 05/18/19 05/18/19 History bumetanide 2 mg PO DAILY 05/18/19 05/18/19 History dextran 70-hypromellose 1 drp OPB BID 05/18/19 05/18/19 History [Artificial Tears (PF)] insulin glargine 55 unit SUBCUT Q12 05/18/19 05/18/19 History insulin lispro [Humalog U-100 0 unit SUBCUT ACHS 05/18/19 05/18/19 History Insulin] insulin lispro [Humalog U-100 30 unit SUBCUT AC 05/18/19 05/18/19 History Insulin] oxycodone 5 mg PO Q8 PRN 05/18/19 05/18/19 History oxycodone 10 mg PO Q8 PRN 05/18/19 05/18/19 History prednisone 30 mg PO DAILY 05/18/19 05/18/19 History Past Med/Surg History Medical History Coronary atherosclerosis of makah coronary vessel (Chronic 01/05/13) " STEMI November of 2011 treated at [facility] with a PCI to the RCA" Diastolic CHF (Chronic) COPD (chronic obstructive pulmonary disease) (Chronic) Chronic respiratory failure with hypoxia (Chronic) Tobacco use disorder (Chronic) Chronic obstructive lung disease (Chronic 01/05/13) Cirrhosis of liver (Chronic) "autoimmune, 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" DM type 2 (diabetes mellitus, type 2) (Chronic) Morbid obesity with BMI of 40.0-44.9, adult (Chronic) Hypothyroidism (Chronic) Peripheral vascular disease (Chronic) Acute hyperglycemia (Inactive) Surgical History History of hysterectomy (Chronic 01/05/13) S/P tonsillectomy and adenoidectomy (Chronic) S/P cholecystectomy (Chronic) S/P coronary artery stent placement (Chronic) "11/2011 ISABEL to RCA" Family History Other Diabetes Heart disease Hypertension Social History Preferred Language: Luxembourgish Communication Ability: Effective Visual Impairment: Partially Limited Hearing Ability: Hard of Hearing Beliefs That Will Affect Care: None marital status: Single marital status details: 2 children Current Living Situation: [facility] Current Living Situation Comment: 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 [facility] current occupational status: disabled Feels Safe at Home: Yes Smoking Status: Current every day smoker Tobacco Type: cigarettes packs per day: 1 Smoking End Date: states she quit recently but I cannot confirm this Hx Alcohol Use: No during the past year weight has: remained stable Review of Systems Constitutional: + fever, + fatigue and + anorexia; no chills Ear, Nose, Mouth, Throat: + dry mouth; no sore throat and no dysphagia Respiratory: + cough, + dyspnea, + dyspnea on exertion, + pain on inspiration, + pain with cough and + wheezing; no hemoptysis Cardiovascular: as per Subjective / HPI, + chest pain, + orthopnea and + paroxysmal nocturnal dyspnea; no edema Gastrointestinal: + abdominal pain and + bloating; no nausea and no vomiting Genitourinary: no dysuria Musculoskeletal: + myalgia; no joint pain Integumentary: + rash (but "better" than usual (bullous pemphigoid)) Neurologic: does not ambulate; uses wheelchair Psychiatric: + confusion Endocrine: + fatigue and + polydipsia Hematologic / Lymphatic: no easy bruising Physical Exam Constitutional: + acute distress, + ill appearing, + morbidly obese and + altered mental status can only talk in broken sentences / single words Eyes: PERRL ENMT: Ears: + unable to visualize TM (due to cerumen b/l) Neck: trachea midline, no thyromegaly Respiratory: + respiratory distress, + labored breathing, + uses accessory muscles, + cough, + tachypneic and + audible wheezes Auscultation: + diminished lung sounds; no crackles Cardiovascular: Rate/Rhythm: regular rhythm and + tachycardic Heart Sounds: normal S1 and normal S2; no murmur Vessels: posterior tibial pulses present and dorsalis pedis pulses present; no JVD Extremities: no edema Gastrointestinal (Abdomen): Inspection/Auscultation: + abdomen distended Percussion/Palpation: + abdomen tender (RUQ/epigastric), + hepatomegaly and + tympanic to percussion Musculoskeletal: Head/Neck/Chest: + abnormal palpation of chest wall (tender - central chest) Skin: healing lesions on arms, torso, legs - I assume these are old pemphigoid lesions; no active bullae. no generalized rash. Neurologic: no focal motor deficits Psychiatric: Orientation: oriented to person and oriented to place; + not alert, + not oriented to time and + uncooperative Genitourinary: queen in place Lymphatic: no cervical lymphadenopathy Results & Data Vital Signs (Past 12 Hours) Vital Signs Temp Pulse Pulse Resp BP BP Pulse Ox 05/18/19 07:21 39.3 C H 05/18/19 06:30 99 H 31 H 93 05/18/19 06:14 100 H 33 H 90 05/18/19 05:30 102 H 21 92 05/18/19 05:02 101 H 27 H 95/53 L 93 05/18/19 05:00 105 H 37 H 92 05/18/19 04:57 100 H 29 H 110/57 L 92 05/18/19 04:56 37.6 C H 102 H 22 110/57 L 92 05/18/19 04:30 101 H 36 H 91 05/18/19 04:01 100 H 42 H 133/66 90 05/18/19 04:00 100 H 42 H 89 L 05/18/19 03:59 38.8 C H 100 H 27 H 133/66 89 L 05/18/19 03:58 105 H 26 H 130/64 90 Code Status & VTE Plan Code Status full code - confirmed w/ her at bedside VTE Prophylaxis Plan VTE Prophylaxis will be ordered: Yes Critical Care Time Critical Care Time: Yes Total Critical Care Time: 75 PG Care Time/CCT Total # of Minutes Spent Total Time Spent with Patient: Total time spent is greater than 50% in coordination of care (as documented) at patient's floor/unit and/or counseling patient: Critical Care Time: Yes Total Critical Care Time: 75 (1) Coronary atherosclerosis of mak[place] coronary vessel [place] vs. transplanted heart: makah heart Associated angina: without angina Qualified Code(s): I25.10 - Atherosclerotic heart disease of makah coronary artery without angina pectoris (2) Diastolic CHF Heart failure chronicity: chronic Qualified Code(s): I50.32 - Chronic diastolic (congestive) heart failure (3) COPD (chronic obstructive pulmonary disease) COPD type: COPD with acute exacerbation Qualified Code(s): J44.1 - Chronic obstructive pulmonary disease with (acute) exacerbation (4) Cirrhosis of liver Hepatic cirrhosis type: other cirrhosis Qualified Code(s): K74.69 - Other cirrhosis of liver (5) DM type 2 (diabetes mellitus, type 2) Diabetes mellitus fpc insulin use: with salvage determiner use Diabetes mellitus complication status: with hyperglycemia Qualified Code(s): E11.65 - Type 2 diabetes mellitus with hyperglycemia; 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
[2019-05-18] MEDS ORDERED: ALBUT/IPRATROP 3MG/0.5MG NEB 3 ML VIAL ONE (08:17)
[2019-05-18] MEDS ORDERED: ALBUT/IPRATROP 3MG/0.5MG NEB 3 ML VIAL NEB STA (08:21)
[2019-05-18] MEDS ORDERED: SODIUM CHLORIDE 0.9% 1000ML 1,000 ML IV ONE (08:41)
--- NOTE | 2019-05-18 09:02 | Critical Care Consultation ---
Date of Consultation May 18, 2019 Assessment & Plan (1) Admitted to intensive care unit: Reason Critically Ill: Ms. 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 She was admitted to the ICU for sepsis secondary to pneumonia, as well as acute on chronic hypoxic respiratory failure. Neuro: -Metabolic Encephalopathy -> present on admission, improving by the time of my exam -> likely multifactorial, relating to hypoxic respiratory failure, sepsis -> ammonia level negative Cardiac: -Chronic diastolic CHF -> ECHO in 03/2019 showed normal LV systolic function, grade 2 diastolic dysfunction -> takes 2mg of bumex daily -> held in the setting of sepsis -> patient appears volume depleted at this time -CAD s/p stent placement in 2011 -> continue aspirin, plavix, statin -> pt not on a beta phuong in outpt setting -> chest pain reproducible on exam, troponin negative, EKG without ST segment elevation -> unlikely to be ACS but will continue to monitor Respiratory: -Acute on chronic hypoxic respiratory failure -> influenza serology ordered -> likely secondary to LLL pneumonia seen on chest CTA as well as possible COPD exacerbation -> placed on BiPAP at home settings -> Received 100mg IV solu-cortef in ED, continue with 60mg IV solu-cortef q6h -> q4h duonebs -> low threshold for intubation/mechanical ventilation -GEETHA -> normally on bipap nightly, is generally non-compliant GI: -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 Anticipate hyperglycemia given high dose of IV steroids -> ISS --> gtt per unit policy -Hypothyroidism -> continue home synthroid -> TSH in 04/15 was 0.987 -Presumed adrenal insufficiency -> patient is steroid dependent - has been on 30mg of prednisone daily for her bullous pemphigoid -> receiving IV stress dose of steroids - will have to taper back down to home regimen HEME: -Stable H&H ID: -Sepsis secondary to LLL Pneumonia -> pt has hx of MRSA and was also recently admitted to [facility] in 04/15 -> will treat for healthcare associated pneumonia with IV ceftaroline and levaquin -> lactate currently 2.5 - will continue to trend -> received 2L IVF in ED, continue normosol at 150 mls/hr -> blood cultures drawn and pending LINES/IV ACCESS: PIV x1 CODE STATUS: FULL, per discussion with patient DVT PROPHYLAXIS: 40mg Lovenox SQ daily Thank you for allowing us to participate in the care of this patient. Please refer to my attending physician's documentation for any further recommendations. (2) Severe sepsis: (3) Metabolic encephalopathy: (4) LLL pneumonia: (5) Chest pain: (6) DVT prophylaxis: (7) Neuropathy: (8) GEETHA treated with BiPAP: (9) Acute on chronic respiratory failure with hypoxia and hypercapnia: (10) Peripheral vascular disease: (11) Hypothyroidism: (12) Morbid obesity with BMI of 40.0-44.9, adult: (13) DM type 2 (diabetes mellitus, type 2): (14) Cirrhosis of liver: (15) COPD (chronic obstructive pulmonary disease): (16) Diastolic CHF: (17) Coronary atherosclerosis of [place] coronary vessel: Supervising Physician Co-Signing Physician Notes Dr. Sinha was resident physician during care of patient. I separately evaluated patient for [place] portions of the history and the exam. I was present during the critical portion of medical decision making, and I discussed the case with the resident. I generally agree with the findings and plan. Serially checking a VBG's attempting to optimize patient's noninvasive ventilator for her acute on chronic respiratory acidosis. Adjusted antibiotics, will start DVT prophylaxis 40 mg Lovenox subcu twice daily secondary to morbid obesity: BMI 55 and monitor with Xa level. I have personally spent 45 minutes of critical care time in the direct management of this patient. This is a life/limb threatening event. This includes time spent evaluating patient, direct bedside care, chart review, placing orders, interpretation of diagnostic studies, discussion with consultants, patient, and/or family members regarding treatment decisions, as well as other required patient management activities. This time is exclusive of all separately billable procedures, and teaching time and separate from and in addition to any other critical care service time. History of Present Illness Reason for Consultation: Sepsis, Acute on Chronic Hypoxic Respiratory Failure Requesting Physician: Dr. Marti Attending Physician: Dr. Eugene History of Present Illness Ms. 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 The patient had noted an increase in her dry cough over the past few days, and stated breathing had become more difficult for her. She had been seen by the [facility] physician who felt her chest pain was unlikely to be cardiac. However, due to the fact that she developed a fever, shortness of breath, increased oxygen demand and became confused - she was transferred to the emergency department. Prior to her arrival, she received 650mg of tylenol and 10mg of Percocet for her discomfort. In the ED, the patient was febrile with a temperature of 39.3 C, tachycardic, tachypneic and hypotensive. She received 2L NS bolus, IV aztreonam, IV vancomycin, IV Levaquin, and 100mg of IV solu-cortef. Her WCC was elevated at 15.7, her lactate was 2.3 and chest CTA showed a left lower lobe infiltrate. There was no evidence of a PE. She was placed on BiPAP due to significant dyspnea despite being on 6L via nasal cannula. She was then transferred to the ICU for further management. Upon assessment of the patient, she stated she remained with chest discomfort. She denied radiation of the pain. She reported an improvement in her breathing after the initiation of BiPAP. She denied abdominal pain, diarrhea, and urinary symptoms. She repetitively asked for water as she reported feeling very thirsty. She had no other complaints. Allergies Allergy/AdvReac Type Severity Reaction Status Date / Time Penicillins Allergy Intermediate RASH Verified 05/09/19 13:44 Home Medications Home Medications Medication Instructions Recorded Confirmed Type Lactinex 1 tab PO TID 11/05/18 05/18/19 History Trelegy Ellipta 1 inh INHALATION DAILY 11/05/18 05/18/19 History acetaminophen [Tylenol] 650 mg PO Q6 PRN MDD 3G/24hr 11/05/18 05/18/19 History albuterol sulfate [ProAir HFA] 2 puff INHALATION Q4H PRN 11/05/18 05/18/19 History aspirin [Aspir-81] 81 mg PO DAILY 11/05/18 05/18/19 History atorvastatin 40 mg PO DAILY 11/05/18 05/18/19 History cholecalciferol (vitamin D3) 2,000 unit PO DAILY 11/05/18 05/18/19 History clopidogrel 75 mg PO DAILY 11/05/18 05/18/19 History gabapentin 100 mg PO TID 11/05/18 05/18/19 History ipratropium-albuterol 3 ml INHALATION Q6 PRN 11/05/18 05/18/19 History levothyroxine 200 mcg PO DAILY 11/05/18 05/18/19 History niacinamide 500 mg PO TID 11/05/18 05/18/19 History pantoprazole 20 mg PO DAILY 11/05/18 05/18/19 History potassium chloride [Klor-Con M20] 20 meq PO DAILY 11/05/18 05/18/19 History ascorbic acid (vitamin C) 500 mg PO BID 01/15/19 05/18/19 History multivitamin 1 tab PO DAILY 01/15/19 05/18/19 History betamethasone dipropionate 1 applic TOPICAL Q8 PRN 05/18/19 05/18/19 History bumetanide 2 mg PO DAILY 05/18/19 05/18/19 History dextran 70-hypromellose 1 drp OPB BID 05/18/19 05/18/19 History [Artificial Tears (PF)] insulin glargine 55 unit SUBCUT Q12 05/18/19 05/18/19 History insulin lispro [Humalog U-100 0 unit SUBCUT ACHS 05/18/19 05/18/19 History Insulin] insulin lispro [Humalog U-100 30 unit SUBCUT AC 05/18/19 05/18/19 History Insulin] oxycodone 5 mg PO Q8 PRN 05/18/19 05/18/19 History oxycodone 10 mg PO Q8 PRN 05/18/19 05/18/19 History prednisone 30 mg PO DAILY 05/18/19 05/18/19 History Patient History Family History Other Diabetes Heart disease Hypertension Social History Preferred Language: [place] Communication Ability: Effective Visual Impairment: Partially Limited Hearing Ability: Hard of Hearing Space Operations Officer Required: No Beliefs That Will Affect Care: None marital status: Single marital status details: 2 children Current Living Situation: Longterm Current Living Situation Comment: 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 [facility] current occupational status: disabled Other Information That Helps Us Care for You: No Feels Safe at Home: Yes Safety Concerns: Feels Safe At This Time Smoking Status: Former smoker Tobacco Type: cigarettes packs per day: 1 Do You Dip or Chew Tobacco: No Smoking End Date: states she quit recently but I cannot confirm this Hx Alcohol Use: No Hx Substance Use: No during the past year weight has: remained stable Review of Systems Constitutional: + fever, + chills, + fatigue and + weakness Respiratory: + cough, + dyspnea and + wheezing; no sputum production Cardiovascular: + chest pain and + edema; no calf pain Gastrointestinal: no abdominal pain, no nausea, no vomiting and no change in bowel habits Genitourinary: no dysuria, no difficulty urinating and no urinary urgency Physical Exam Constitutional: + morbidly obese, cooperative and comfortable on BiPAP, frequently falling asleep unless prompted Eyes: PERRL, conjunctivae normal, anicteric sclerae ENMT: external ear and nose normal, oropharynx normal (dry mucous membranes) Respiratory: Auscultation: + diminished lung sounds and + wheezes (wheezing bilaterally) Cardiovascular: Rate/Rhythm: regular rate and regular rhythm Vessels: radial pulses present Extremities: + edema (1+ pitting edema b/l) chest tender to palpation, just to left of sternum, over 3rd and 4th ribs Gastrointestinal (Abdomen): Inspection/Auscultation: + abdomen distended; + abdomen abnormal to inspection (barby-umbilical erythema and scaling of skin) Percussion/Palpation: abdomen soft; abdomen nontender, no guarding and abdomen not rigid Skin: multiple healing scars from bullous pemphigoid over arms and legs Neurologic: moves all extremities and awake; not confused Genitourinary: queen catheter in place draining dark yellow urine Results & Data Vital Signs (Past 12 Hours) Vital Signs Temp Pulse Pulse Resp BP BP Pulse Ox 05/18/19 08:44 99 H 16 107/65 95 05/18/19 08:29 36.9 C 05/18/19 08:21 105 H 102 H 32 H 05/18/19 07:21 39.3 C H 05/18/19 06:30 99 H 31 H 93 05/18/19 06:14 100 H 33 H 90 05/18/19 05:30 102 H 21 92 05/18/19 05:02 101 H 27 H 95/53 L 93 05/18/19 05:00 105 H 37 H 92 05/18/19 04:57 100 H 29 H 110/57 L 92 05/18/19 04:56 37.6 C H 102 H 22 110/57 L 92 05/18/19 04:30 101 H 36 H 91 05/18/19 04:01 100 H 42 H 133/66 90 05/18/19 04:00 100 H 42 H 89 L 05/18/19 03:59 38.8 C H 100 H 27 H 133/66 89 L 05/18/19 03:58 105 H 26 H 130/64 90 PG Care Time/CCT Critical Care Time: Yes Total Critical Care Time: 45 Resident Activity Tracking Resident Involvement: Resident Care Provided Care Provided: Adult Hospital Medicine (1) Diastolic CHF Heart failure chronicity: chronic Qualified Code(s): I50.32 - Chronic diastolic (congestive) heart failure (2) DM type 2 (diabetes mellitus, type 2) Diabetes mellitus complication status: with hyperglycemia Diabetes mellitus termite control servicer insulin use: with termite control servicer use Qualified Code(s): E11.65 - Type 2 diabetes mellitus with hyperglycemia; Z79.4 - penitentiary (current) use of insulin (3) Hypothyroidism Hypothyroidism type: acquired Qualified Code(s): E03.9 - Hypothyroidism, unspecified (4) Cirrhosis of liver Hepatic cirrhosis type: other cirrhosis Qualified Code(s): K74.69 - Other cirrhosis of liver (5) Coronary atherosclerosis of [place] coronary vessel Associated angina: without angina [place] vs. transplanted heart: [place] heart Qualified Code(s): I25.10 - Atherosclerotic heart disease of [place] coronary artery without angina pectoris (6) COPD (chronic obstructive pulmonary disease) COPD type: COPD with acute exacerbation Qualified Code(s): J44.1 - Chronic obstructive pulmonary disease with (acute) exacerbation (7) LLL pneumonia Pneumonia type: due to unspecified organism Qualified Code(s): J18.1 - Lobar pneumonia, unspecified organism (8) Chest pain Chest pain type: unspecified Qualified Code(s): R07.9 - Chest pain, unspecified
[2019-05-18 09:20] LABS: Oxygen Saturation VBG 78.8 %; pH VBG 7.34 (7.36-7.41)
[2019-05-18] MEDS ORDERED: ICU PROTOCOL FOR HYPERGLYCEMIA PRN ×2 (09:58→10:15)
[2019-05-18] MEDS ORDERED: BETAMETHASONE DIP AUG 0.05% OINT 15 GM TUBE TOP PRN (09:58)
[2019-05-18] MEDS ORDERED: NIACINAMIDE 500 MG PO SCH (09:58)
--- NOTE | 2019-05-18 10:11 | XRay Report ---
KUB HISTORY: Acute generalized abdominal distention abd distension COMPARISON: CT abdomen and pelvis 03/13/2018 FINDINGS: The bowel gas pattern is non-obstructive. Mild gaseous distention of the stomach and transv erse colon. Cholecystectomy. Catheter overlies the central pelvis. Contrast noted within the collecti ng systems and urinary bladder lumen. No urolith identified. Degenerative changes of the spine. Cardi omegaly with left pleural effusion and left basilar consolidation. No pneumatosis or pneumoperitoneum identified. IMPRESSION: 1. Mild gaseous distention of the stomach and colon with nonobstructive bowel gas pattern. 2. Cholecystectomy. 3. Cardiomegaly with left pleural effusion and left lung base consolidation. Electronically signed by: Selvin Lui M.D. 05/18/2019 10:10 AM
[2019-05-18] MEDS: FAMOTIDINE 20 MG in SYRINGE 3 ML IV SCH ×2 (10:47→21:47)
[2019-05-18] MEDS: NORMOSOL-R 1,000 ML IV SCH ×2 (10:58→18:04)
[2019-05-18 10:59] LABS: Prothrombin Time 10.4 Seconds (9.0-12.0)
[2019-05-18] MEDS ORDERED: INSULIN ASPART 100 UNITS/ML 3 ML PEN SC SCH ×2 (11:30→18:00)
[2019-05-18] MEDS: ALBUT/IPRATROP 3MG/0.5MG NEB 3 ML VIAL INH SCH ×4 (11:43→23:05)
[2019-05-18] MEDS ORDERED: GLUCAGON FOR INJ 1 MG VIAL SQ PRN (11:45)
[2019-05-18] MEDS ORDERED: DEXTROSE 50% 50 ML SYRINGE IV PRN (11:45)
[2019-05-18] MEDS ORDERED: CARBOHYDRATES FOR HYPOGLYCEMIA PO PRN (11:45)
[2019-05-18] MEDS ORDERED: GLUCOSE 10 TABS/TUBE PO PRN (11:45)
[2019-05-18] MEDS ORDERED: GLUCOSE 40% GEL 15 GM TUBE PO PRN (11:45)
[2019-05-18 11:57] LABS: Influenza A virus by PCR Neg for Influ A (Neg); Influenza B virus by PCR Neg for Influ B (Neg)
[2019-05-18] MEDS ORDERED: PNEUMOCOCCAL ADMINISTRATION CHARGE ONE (12:30)
[2019-05-18] MEDS ORDERED: PNEUMOCOCCAL POLYSACCHARIDES 25 MCG/0.5 ML VIAL/SYR IM ONE (12:30)
[2019-05-18] MEDS: ATORVASTATIN 40 MG TAB PO SCH (12:49)
[2019-05-18] MEDS: ASPIRIN 81 MG ECTAB PO SCH (12:49)
[2019-05-18] MEDS: methylPREDNISolone 60 MG in SYRINGE 0 ML IV SCH ×2 (12:50→18:02)
[2019-05-18] MEDS: CLOPIDOGREL BISULFATE 75 MG TAB PO SCH (12:50)
[2019-05-18] MEDS: PANTOprazole 40 MG TAB PO SCH (12:50)
[2019-05-18] MEDS: LEVOTHYROXINE SODIUM 200 MCG TABLET PO SCH (12:50)
[2019-05-18] MEDS: CEFTAROLINE FOSAMIL ACETATE 600 MG in SODIUM CHLORIDE 0.9% 250 ML IV SCH ×2 (12:50→21:42)
[2019-05-18] MEDS: GABAPENTIN 100 MG CAP PO SCH ×3 (12:50→21:44)
[2019-05-18 13:57] LABS: Base Excess VBG 2.8 mEq/L; Oxygen Saturation VBG 69.2 %; pH VBG 7.26 (7.36-7.41)
[2019-05-18] MEDS ORDERED: CEFEPIME 1,000 MG in SYRINGE 0 ML IV SCH (14:00)
[2019-05-18] MEDS ORDERED: Nursing to Pharmacy Communication ONE ×2 (15:38→18:23)
[2019-05-18 16:29] LABS: Base Excess VBG 3.1 mEq/L; Oxygen Saturation VBG 81.5 %; pH VBG 7.3 (7.36-7.41)
[2019-05-18] MEDS ORDERED: FUROSEMIDE 40 MG/4 ML VIAL IV STA (18:41)
[2019-05-18] MEDS ORDERED: POTASSIUM CHLORIDE 20 MEQ TABCR PO STA (18:41)
[2019-05-18] MEDS ORDERED: INSULIN PROTOCOL GOAL RANGE ONE (18:53)
[2019-05-18] MEDS ORDERED: SEVERE STRESS LEVEL ONE (18:53)
[2019-05-18] MEDS ORDERED: NovoLIN-R BOLUS FROM BAG IV ONE (19:00)
[2019-05-18] MEDS ORDERED: PHARMACY GLYCEMIC MGMT CONSULT PRN (19:10)
[2019-05-18] MEDS: INSULIN REGULAR 250 UNITS in SODIUM CHLORIDE 0.9% 247.5 ML IV SCH (19:11)
[2019-05-18] MEDS ORDERED: INSULIN GLARGINE SOLOSTAR 100 UNITS/ML 3 ML PEN SC ONE (20:00)
[2019-05-18] MEDS ORDERED: VANCOMYCIN HCL 1,000 MG in SODIUM CHLORIDE 0.9% 250 ML IV SCH (20:00)
[2019-05-18] MEDS ORDERED: ENOXAPARIN INJ 40 MG/0.4 ML SYR SQ SCH (21:00)
[2019-05-18] MEDS: ENOXAPARIN INJ 40 MG/0.4 ML SYR SQ SCH (21:43)
[2019-05-18] MEDS: INSULIN ASPART 100 UNITS/ML 3 ML PEN SC SCH (21:45)
[2019-05-19] MEDS: methylPREDNISolone 60 MG in SYRINGE 0 ML IV SCH ×4 (00:04→19:59)
[2019-05-19] MEDS: ALBUT/IPRATROP 3MG/0.5MG NEB 3 ML VIAL INH SCH ×6 (03:47→23:24)
[2019-05-19 04:24] LABS: Base Excess VBG 5.9 mEq/L; HCO3 VBG 35 mmol/L; Oxygen Saturation VBG 83.4 %; PCO2 VBG 76 mmHg (38-50); PO2 VBG 49 mmHg; pH VBG 7.28 (7.36-7.41)
[2019-05-19 04:33] LABS: Basophils # (auto) 0.01 K/uL (0-0.2); Basophils % (auto) 0.1 %; Hemoglobin 13.2 g/dL (12.0-16.0); Immature Granulocytes # (auto) 0.12 K/uL (0.00-0.02); Immature Granulocytes % (auto) 0.7 %; Lymphocytes # (auto) 0.84 K/uL (1.2-3.4); Lymphocytes % (auto) 4.6 %; Mean Corpuscular Volume 96.9 fL (80-100); Monocytes # (auto) 0.43 K/uL (0.11-0.59); Monocytes % (auto) 2.3 %; Neutrophils # (auto) 16.95 K/uL (1.4-6.5); Neutrophils % (auto) 92.3 %; Platelet Count 179 K/uL (130-400); RDW Coefficient of Variation 13.4 % (11.5-14.5); RDW Standard Deviation 46.9 fL (36.4-46.3); Red Blood Count 4.13 M/uL (4.2-5.4); White Blood Count 18.35 K/uL (4.8-10.8)
[2019-05-19 04:34] LABS: Calcium 9.9 mg/dl (8.5-10.1); Creatinine Clr Calc Pharmacy 111.2 ml/min; Est GFR (African American) 99.5; Est GFR (Non-African American) 85.9; Magnesium 1.9 mg/dl (1.8-2.4); Potassium 3.7 mmol/L (3.5-5.1)
[2019-05-19] MEDS ORDERED: LEVOFLOXACIN/D5W 750 MG/150 ML BAG IV SCH (05:00)
[2019-05-19] MEDS: CEFTAROLINE FOSAMIL ACETATE 600 MG in SODIUM CHLORIDE 0.9% 250 ML IV SCH ×3 (05:15→20:00)
[2019-05-19 05:58] LABS: Estimated Average Glucose 177 mg/dl; Hemoglobin A1C 7.8 % (4.5-5.6)
[2019-05-19] MEDS: LEVOTHYROXINE SODIUM 200 MCG TABLET PO SCH (06:08)
[2019-05-19] MEDS: ENOXAPARIN INJ 40 MG/0.4 ML SYR SQ SCH ×2 (08:13→19:59)
[2019-05-19] MEDS: ATORVASTATIN 40 MG TAB PO SCH (08:13)
[2019-05-19] MEDS: ASPIRIN 81 MG ECTAB PO SCH (08:13)
[2019-05-19] MEDS: INSULIN ASPART 100 UNITS/ML 3 ML PEN SC SCH ×4 (08:14→20:59)
[2019-05-19] MEDS: GABAPENTIN 100 MG CAP PO SCH ×3 (08:14→19:59)
[2019-05-19] MEDS: PANTOprazole 40 MG TAB PO SCH (08:14)
[2019-05-19] MEDS: CLOPIDOGREL BISULFATE 75 MG TAB PO SCH (08:14)
[2019-05-19] MEDS: FAMOTIDINE 20 MG in SYRINGE 3 ML IV SCH ×2 (08:16→19:59)
--- NOTE | 2019-05-19 09:11 | Critical Care Progress Note ---
Date of Service May 19, 2019 Assessment & Plan (1) Admitted to intensive care unit: Reason Critically Ill: Ms. 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 She was admitted to the ICU for sepsis secondary to pneumonia, as well as acute on chronic hypoxic respiratory failure. Neuro: -Metabolic Encephalopathy: Improving -> likely multifactorial, relating to hypoxic respiratory failure, sepsis -> ammonia level negative Cardiac: -Chronic diastolic CHF -> ECHO in 03/2019 showed normal LV systolic function, grade 2 diastolic dysfunction -> Patient appears to be euvolemic and now transitioning to goal of being net negative -CAD s/p stent placement in 2011 -> continue aspirin, plavix, statin -> pt not on a beta phuong in outpt setting -> chest pain reproducible on exam, troponin negative, EKG without ST segment elevation -> unlikely to be ACS but will continue to monitor Respiratory: -Acute on chronic hypoxic respiratory failure -> likely secondary to LLL pneumonia seen on chest CTA as well as possible COPD exacerbation -> placed on BiPAP at home settings: Wear BiPAP at night and with naps IPAP 20 EPAP 10 -> Received 100mg IV solu-cortef in ED, continue with 60mg IV solu-cortef q6h extend to q. 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 Anticipate hyperglycemia given high dose of IV steroids -> ISS --> gtt per unit policy -Hypothyroidism -> continue home synthroid -> TSH in 04/15 was 0.987 -Presumed adrenal insufficiency -> patient is steroid dependent - has been on 30mg of prednisone daily for her bullous pemphigoid -> receiving IV stress dose of steroids - will have to taper back down to home regimen HEME: -Stable H&H ID: -Sepsis secondary to LLL Pneumonia -MRSA bacteremia: On Teflaro -Repeat echo to evaluate for endocarditis -Will likely require transesophageal echo: This is been ordered and anesthesia consult has been placed -> pt has hx of MRSA and was also recently admitted to [facility] in 04/15 -> will treat for healthcare associated pneumonia with IV ceftaroline and levaquin -Discontinue Levaquin -> lactate currently 2.5 -essentially negligible -> Repeat blood cultures pending -Infectious disease consultation LINES/IV ACCESS: PIV x2 -Patient has been consented for PEG/midline however I am waiting until blood cultures are negative before we consider advanced vascular access CODE STATUS: FULL, per discussion with patient DVT PROPHYLAXIS: 40mg Lovenox SQ twice daily secondary to BMI greater than 55 I have personally spent 50 minutes of critical care time in the direct management of this patient. This is a life/limb threatening event. This includes time spent evaluating patient, direct bedside care, chart review, placing orders, interpretation of diagnostic studies, discussion with consultants, patient, and/or family members regarding treatment decisions, as well as other required patient management activities. This time is exclusive of all separately billable procedures, and teaching time and separate from and in addition to any other critical care service time. Present on Admission?: Yes (2) Severe sepsis: (3) Metabolic encephalopathy: (4) LLL pneumonia: (5) Chest pain: (6) DVT prophylaxis: (7) Neuropathy: (8) GEETHA treated with BiPAP: (9) Acute on chronic respiratory failure with hypoxia and hypercapnia: (10) Peripheral vascular disease: (11) Hypothyroidism: (12) Morbid obesity with BMI of 40.0-44.9, adult: (13) DM type 2 (diabetes mellitus, type 2): (14) Cirrhosis of liver: (15) COPD (chronic obstructive pulmonary disease): (16) Diastolic CHF: (17) Coronary atherosclerosis of [place] coronary vessel: (18) MRSA bacteremia: Present on Admission?: Yes (19) Morbid obesity with BMI of 50.0-59.9, adult: Present on Admission?: Yes Subjective Feels improved compared to yesterday Review of Systems Review of Systems: Generalized fatigue, dyspnea at baseline Results & Data Vital Signs (Past 12 Hours) Vital Signs Temp Pulse Pulse Pulse Resp BP BP 05/19/19 08:01 71 16 135/79 05/19/19 08:00 36.8 C 71 18 05/19/19 07:03 67 67 24 05/19/19 07:01 67 22 149/75 H 05/19/19 07:00 68 17 05/19/19 06:00 61 22 142/67 H 05/19/19 05:00 62 22 152/61 H 05/19/19 04:00 36.5 C 66 24 147/54 H 05/19/19 03:47 66 66 21 05/19/19 03:00 64 24 131/52 L 05/19/19 02:13 63 22 05/19/19 02:00 62 24 125/55 L 05/19/19 01:00 65 22 144/64 H 05/19/19 00:00 36.5 C 67 20 167/73 H 05/18/19 23:37 66 19 05/18/19 23:22 64 22 05/18/19 22:01 66 22 154/78 H 05/18/19 22:00 60 20 05/18/19 21:01 68 24 158/83 H Pulse Ox Pulse Ox 05/19/19 08:01 94 05/19/19 08:00 94 05/19/19 07:03 93 05/19/19 07:01 94 05/19/19 07:00 94 05/19/19 06:00 93 05/19/19 05:00 94 05/19/19 04:00 92 05/19/19 03:47 94 05/19/19 03:00 94 05/19/19 02:13 94 05/19/19 02:00 93 05/19/19 01:00 93 05/19/19 00:00 95 95 05/18/19 23:37 90 05/18/19 23:22 88 L 05/18/19 22:01 94 05/18/19 22:00 94 05/18/19 21:01 94 PG Care Time/CCT Critical Care Time: Yes (50) (1) LLL pneumonia Pneumonia type: due to unspecified organism Qualified Code(s): J18.1 - Lobar pneumonia, unspecified organism (2) Chest pain Chest pain type: unspecified Qualified Code(s): R07.9 - Chest pain, unspecified (3) Hypothyroidism Hypothyroidism type: acquired Qualified Code(s): E03.9 - Hypothyroidism, unspecified (4) DM type 2 (diabetes mellitus, type 2) Diabetes mellitus termite treater insulin use: with termite treater use Diabetes mellitus complication status: with hyperglycemia Qualified Code(s): E11.65 - Type 2 diabetes mellitus with hyperglycemia; Z79.4 - termination clerk (current) use of insulin (5) Cirrhosis of liver Hepatic cirrhosis type: other cirrhosis Qualified Code(s): K74.69 - Other cirrhosis of liver (6) COPD (chronic obstructive pulmonary disease) COPD type: COPD with acute exacerbation Qualified Code(s): J44.1 - Chronic obstructive pulmonary disease with (acute) exacerbation (7) Diastolic CHF Heart failure chronicity: chronic Qualified Code(s): I50.32 - Chronic diastolic (congestive) heart failure (8) Coronary atherosclerosis of [place] coronary vessel [place] vs. transplanted heart: [place] heart Associated angina: without angina Qualified Code(s): I25.10 - Atherosclerotic heart disease of [place] coronary artery without angina pectoris
[2019-05-19] MEDS ORDERED: INSULIN GLARGINE SOLOSTAR 100 UNITS/ML 3 ML PEN SC STA (09:15)
[2019-05-19] MEDS: SPIRONOLACTONE 25 MG TAB PO SCH (10:06)
[2019-05-19] MEDS: BUMETANIDE 1 MG TAB PO SCH (10:06)
--- NOTE | 2019-05-19 13:37 | Pharmacy Report ---
Pharmacy Glycemic Short Note 2 - Date of Service May 19, 2019 - Glycemic Short BSG Results (Last 24 hours): 05/18/19 05/18/19 05/18/19 18:05 20:09 21:04 Glucose POC Glucose 296 H 263 H 257 H 05/18/19 05/18/19 05/19/19 22:22 23:22 00:07 Glucose POC Glucose 244 H 237 H 242 H 05/19/19 05/19/19 05/19/19 01:00 01:58 03:04 Glucose POC Glucose 270 H 210 H 196 H 05/19/19 05/19/19 05/19/19 04:02 04:20 05:14 Glucose 196 H POC Glucose 190 H 187 H 05/19/19 05/19/19 05/19/19 06:07 07:11 08:04 Glucose POC Glucose 201 H 211 H 174 H 05/19/19 05/19/19 05/19/19 09:08 10:09 11:16 Glucose POC Glucose 182 H 211 H 175 H 05/19/19 12:07 Glucose POC Glucose 203 H ASSESSMENT: * Insulin infsn started evening of 05/18/19 in setting of hyperglycemia. Likely steroid induced. BSGs today in the low 200s, insulin gtt rate ~10u/hr. Steroids: SM 60mg q8. She is now ordered a diet PLAN FOR INPATIENT GLYCEMIC CONTROL: * Basal insulin * Lantus sq BID 55 or 50 units, see MAR for further details * Insulin gtt
[2019-05-19] MEDS: INSULIN REGULAR 250 UNITS in SODIUM CHLORIDE 0.9% 247.5 ML IV SCH (14:25)
--- NOTE | 2019-05-19 17:36 | Infectious Disease Consult ---
Date of Consultation May 19, 2019 Assessment & Plan (1) MRSA bacteremia: Patient with MRSA bacteremia in the setting of left lower lobe pneumonia. Given her morbid obesity, agree that IV ceftaroline probably will be best agent to treat her infection. Will likely need transesophageal echocardiogram to rule out possibility of endocarditis. Will follow (2) LLL pneumonia: History of Present Illness Reason for Consultation: MRSA bacteremia Attending Physician: Ethan Marti History of Present Illness 58-year-old female with complicated medical history including morbid obesity, COPD, chronic oxygen dependency, sleep apnea, diabetes chronic diastolic heart failure, cirrhosis of the liver from ABDI, bullous pemphigoid, who was admitted with several days of increasing cough, shortness of breath, weakness, and fever. Was found to have evidence of left lower lobe pneumonia on chest x-ray, and blood cultures are now growing MRSA. Patient has been started on IV ceftaroline, and states she feels slightly better from yesterday. Tolerating antibiotics without apparent difficulty. Denies hemoptysis or purulent sputum. Had transthoracic echocardiogram which was poor quality, without good valve visualization. Allergies Allergy/AdvReac Type Severity Reaction Status Date / Time Penicillins Allergy Intermediate RASH Verified 05/09/19 13:44 Home Medications Home Medications Medication Instructions Recorded Confirmed Type Lactinex 1 tab PO TID 11/05/18 05/18/19 History Trelegy Ellipta 1 inh INHALATION DAILY 11/05/18 05/18/19 History acetaminophen [Tylenol] 650 mg PO Q6 PRN MDD 3G/24hr 11/05/18 05/18/19 History albuterol sulfate [ProAir HFA] 2 puff INHALATION Q4H PRN 11/05/18 05/18/19 History aspirin [Aspir-81] 81 mg PO DAILY 11/05/18 05/18/19 History atorvastatin 40 mg PO DAILY 11/05/18 05/18/19 History cholecalciferol (vitamin D3) 2,000 unit PO DAILY 11/05/18 05/18/19 History clopidogrel 75 mg PO DAILY 11/05/18 05/18/19 History gabapentin 100 mg PO TID 11/05/18 05/18/19 History ipratropium-albuterol 3 ml INHALATION Q6 PRN 11/05/18 05/18/19 History levothyroxine 200 mcg PO DAILY 11/05/18 05/18/19 History niacinamide 500 mg PO TID 11/05/18 05/18/19 History pantoprazole 20 mg PO DAILY 11/05/18 05/18/19 History potassium chloride [Klor-Con M20] 20 meq PO DAILY 11/05/18 05/18/19 History ascorbic acid (vitamin C) 500 mg PO BID 01/15/19 05/18/19 History multivitamin 1 tab PO DAILY 01/15/19 05/18/19 History betamethasone dipropionate 1 applic TOPICAL Q8 PRN 05/18/19 05/18/19 History bumetanide 2 mg PO DAILY 05/18/19 05/18/19 History dextran 70-hypromellose 1 drp OPB BID 05/18/19 05/18/19 History [Artificial Tears (PF)] insulin glargine 55 unit SUBCUT Q12 05/18/19 05/18/19 History insulin lispro [Humalog U-100 0 unit SUBCUT ACHS 05/18/19 05/18/19 History Insulin] insulin lispro [Humalog U-100 30 unit SUBCUT AC 05/18/19 05/18/19 History Insulin] oxycodone 5 mg PO Q8 PRN 05/18/19 05/18/19 History oxycodone 10 mg PO Q8 PRN 05/18/19 05/18/19 History prednisone 30 mg PO DAILY 05/18/19 05/18/19 History Patient History Medical History Coronary atherosclerosis of [place] coronary vessel (Chronic 01/05/13) " STEMI November of 2011 treated at [facility] with a PCI to the RCA" Diastolic CHF (Chronic) COPD (chronic obstructive pulmonary disease) (Chronic) Chronic respiratory failure with hypoxia (Chronic) Tobacco use disorder (Chronic) Chronic obstructive lung disease (Chronic 01/05/13) Cirrhosis of liver (Chronic) "autoimmune, 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" DM type 2 (diabetes mellitus, type 2) (Chronic) Morbid obesity with BMI of 40.0-44.9, adult (Chronic) Hypothyroidism (Chronic) Peripheral vascular disease (Chronic) Acute hyperglycemia (Inactive) Surgical History History of hysterectomy (Chronic 01/05/13) S/P tonsillectomy and adenoidectomy (Chronic) S/P cholecystectomy (Chronic) S/P coronary artery stent placement (Chronic) "11/2011 ISABEL to RCA" Family History Other Diabetes Heart disease Hypertension Social History Preferred Language: Divehi Communication Ability: Effective Visual Impairment: Partially Limited Hearing Ability: Hard of Hearing Priming Mixture Carrier Required: No Beliefs That Will Affect Care: None marital status: Single marital status details: 2 children Current Living Situation: Custodial Current Living Situation Comment: 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 [facility] current occupational status: disabled Other Information That Helps Us Care for You: No Feels Safe at Home: Yes Safety Concerns: Feels Safe At This Time Smoking Status: Former smoker Tobacco Type: cigarettes packs per day: 1 Do You Dip or Chew Tobacco: No Smoking End Date: states she quit recently but I cannot confirm this Hx Alcohol Use: No Hx Substance Use: No during the past year weight has: remained stable Review of Systems Review of Systems: All systems reviewed & are unremarkable except as noted in HPI & below Physical Exam Constitutional: WD/WN, vitals as above + morbidly obese and comfortable; no acute distress Eyes: PERRL, conjunctivae normal, anicteric sclerae ENMT: external ear and nose normal, oropharynx normal Neck: trachea midline, no thyromegaly neck nontender Respiratory: normal percussion; no respiratory distress and does not use accessory muscles Auscultation: + rales (Left-sided) Cardiovascular: Rate/Rhythm: regular rate and regular rhythm Heart Sounds: normal S1 and normal S2; no gallop, no murmur and no cardiac rub Vessels: normal peripheral pulses; no JVD Gastrointestinal (Abdomen): normal bowel sounds, soft, nontender, no hepatosplenomegaly Musculoskeletal: no cyanosis or clubbing, extremities motor strength 5/5 Spine: thoracic spine normal to inspection and lumbar spine normal to inspection; no cervical spinal tenderness Skin: no rashes, warm and dry normal turgor; no lesions Neurologic: patellar DTR's 2+ bilat, sensation intact no focal motor deficits Psychiatric: A+Ox3, euthymic affect Orientation: cooperative Lymphatic: no cervical or axillary lymphadenopathy no inguinal lymphadenopathy Results & Data Vital Signs (Past 12 Hours) Vital Signs Temp Pulse Pulse Resp BP BP Pulse Ox 05/19/19 15:45 74 74 24 97 05/19/19 15:01 79 13 125/75 93 05/19/19 15:00 78 17 95 05/19/19 14:45 80 29 H 92 05/19/19 12:01 86 28 H 148/66 H 88 L 05/19/19 12:00 85 33 H 89 L 05/19/19 11:22 64 24 92 05/19/19 11:02 84 18 103/38 L 91 05/19/19 11:00 83 20 88 L 05/19/19 10:01 76 24 146/70 H 90 05/19/19 10:00 75 26 H 90 05/19/19 09:02 75 18 81/48 L 88 L 05/19/19 09:00 73 25 H 90 05/19/19 08:02 72 21 93 05/19/19 08:01 71 16 135/79 94 05/19/19 08:00 36.8 C 71 18 94 05/19/19 07:03 67 67 24 93 05/19/19 07:01 67 22 149/75 H 94 05/19/19 07:00 68 17 94 05/19/19 06:00 61 22 142/67 H 93 Laboratory Results Short CBC 05/19/19 Range/Units 04:02 WBC 18.35 H (4.8-10.8) K/uL Hgb 13.2 (12.0-16.0) g/dL Hct 40.0 (37-47) % Plt Count 179 (130-400) K/uL BMP 05/19/19 04:02 Sodium 135 L Potassium 3.7 Chloride 94 L Carbon Dioxide 36 H BUN 20 H Creatinine 0.76 Glucose 196 H Calcium 9.9 Diagnostic Findings Microbiology 05/18/19 04:35 Blood Aerobic Blood Culture - Preliminary Staphylococcus aureus 05/18/19 04:35 Blood Anaerobic Blood Culture - Preliminary Staphylococcus aureus 05/18/19 04:48 Blood Aerobic Blood Culture - Preliminary Staphylococcus aureus 05/18/19 04:48 Blood Anaerobic Blood Culture - Preliminary Staphylococcus aureus cc: ~ CT angio chest PE protocol CT DOSE: 666.31 mGycm HISTORY: Chest pain PE vs PNA TECHNIQUE: Multiaxial CT images of the chest were performed following the intra venous administration of contrast to evaluate the pulmonary arteries. Maximal intensity projection images were also obtained. A dose lowering technique was utilized adhering to the principles of ALARA. COMPARISON STUDY: 04/02/2019 FINDINGS: There is a normal caliber thoracic aorta with no evidence for dissection. There is no evidence for pulmonary embolus. There are findings of ectopic consolidative infiltrative process left lung base. Mild atelectatic changes right base. There is a very small left pleural effusion. IMPRESSION: 1. No evidence of pulmonary embolus. 2. Mild cardiomegaly with components of prominent pulmonary vasculature. 3. Consolidative infiltrate left lung base combined with small left and to lesser extent right basilar pleural effusion. The above report was generated using voice recognition software. It may contain grammatical, syntax or spelling errors. Electronically signed by: Harvey Blevins M.D. 05/18/2019 6:27 AM Dictated: 05/18/19623 Transcribed: 05/18/19623 (1) LLL pneumonia Pneumonia type: due to unspecified organism Qualified Code(s): J18.1 - Lobar pneumonia, unspecified organism
--- NOTE | 2019-05-19 20:23 | Hospitalist Progress Note ---
Date of Service May 19, 2019 Assessment & Plan (1) MRSA bacteremia: source - lung (LLL pneumonia) +/- skin given the numerous healing lesions. she had a MRSA furuncle on her left neck that required I/D during previous admission. 2D echo ordered but limited views were seen due to body habitus. may need KIA to r/o endocarditis. obtain repeat blood cx's today. agree with change in abx to ceftaroline monotherapy. appreciate ID and critical care consults. Present on Admission?: Yes (2) Severe sepsis: 2nd to LLL pneumonia and MRSA bacteremia/septicemia. See "MRSA bacteremia" above. Sepsis resolving. BPs have normalized. Blood work stable. Present on Admission?: Yes (3) LLL pneumonia: As seen on CT chest. High likelihood this is due to MRSA. Cont abx (ceftaroline). Day #2 of therapy. Supportive care, BIPAP as needed. Present on Admission?: Yes (4) Acute on chronic respiratory failure with hypoxia and hypercapnia: Acute component 2nd to LLL pneumonia and COPD flare. Chronic - COPD, GEETHA, OHS, etc. Acute component slowly improving. Agree with weaning of steroids. Abx for LLL pneumonia per ID/critical care. (5) Metabolic encephalopathy: Due to sepsis/pneumonia - resolved. Ammonia level was normal. VBGs with hypercarbia but this has slowly improved. Avoid hyperoxia; keep sats low 90s. Avoid narcotics. Keep euglycemic. (6) COPD (chronic obstructive pulmonary disease): with exacerbation. Agree w/ weaning of solumedrol 60mg to q8h dosing. Nebs q4h. BIPAP and NC O2. Supportive care. (7) Coronary atherosclerosis of [place] coronary vessel: Resumed asa, plavix, statin. Troponins negative. EKG without ischemic changes. Chest pain is musculoskeletal - reproducible on exam. Consider k-pad. (8) Diastolic CHF: Was volume contracted clinically at admission, then received fluid resuscitation for severe sepsis. May have developed mild fluid overload late yesterday. Diuretics resumed. (9) Tobacco use disorder: Offer nicoderm patch if truly still smoking at SNF. (10) Cirrhosis of liver: 2nd to ABDI and/or autoimmune causes. Ammonia level was normal. INR stable. LFTs stable. (11) DM type 2 (diabetes mellitus, type 2): Appreciate Pharmacy glycemic assistance. Now on insulin infusion due to hyperglycemia from steroids. (12) Hypothyroidism: TSH within the last 2 months wnl. Cont synthroid. (13) Hyponatremia: Due to volume contraction at admission. Resolved. (14) Bullous pemphigoid: Controlled. No active bullae at this time. On chronic prednisone 30mg/day and niacinamide 500mg TID. Giving stress dose steroids for sepsis and COPD exacerbation. (15) Chest pain: Musculoskeletal. Reproducible on exam; EKG w/o ischemic changes; troponins negative. (16) Morbid obesity with BMI of 50.0-59.9, adult: BMI 55 (17) DVT prophylaxis: lovenox 40mg daily daughter extensively updated at bedside told patient she would NOT be a candidate to return to her actual home in [place] UNLESS she had 20/06 caregivers. daughter stated that would never be possible. social work assistance appreciated. would need SNF again at d/c. See HPI for additional details. Subjective patient was on BIPAP all day yesterday and all night. removed this am; transitioned to NC O2. during the visit she was awake/alert. daughter at bedside. patient asked repeatedly if she "could go home" when she was ready to leave the hospital. she is quite disenchanted with [facility]- has been living there for 2 years. towards end of conversation she knows she will need to return to SNF; willing to consider [facility] and [facility]. overall feels a little better today. still with cough and musculoskeletal pain over left chest. dyspnea remains albeit it is improved today. now on insulin drip due to hyperglycemia. Review of Systems Constitutional: + fatigue; no fever, no chills and no body aches Respiratory: + cough and + dyspnea Cardiovascular: as per Subjective / HPI and + chest pain Gastrointestinal: no abdominal pain, no nausea and no vomiting Physical Exam Constitutional: + ill appearing and + morbidly obese; no altered mental status Respiratory: + respiratory distress (mild retractions), + cough and + tachypneic Auscultation: + diminished lung sounds and + crackles (left base); no wheezes Cardiovascular: Rate/Rhythm: regular rate and regular rhythm Heart Sounds: normal S1 and normal S2; no murmur Vessels: posterior tibial pulses present and dorsalis pedis pulses present; no JVD Extremities: + edema (<1+ b/l ) Gastrointestinal (Abdomen): Inspection/Auscultation: + abdomen distended Percussion/Palpation: + hepatomegaly; abdomen nontender Musculoskeletal: Head/Neck/Chest: + abnormal palpation of chest wall (tender - central chest) Skin: numerous areas of scarring/irritated skin - presumably from old bullae that have resolved; no active bullae Psychiatric: Orientation: alert and oriented x 3 Results & Data Vital Signs (Past 12 Hours) Vital Signs Pulse Pulse Resp BP Pulse Ox 05/19/19 18:46 79 20 92 05/19/19 18:00 83 91 05/19/19 17:07 83 119/74 88 L 05/19/19 17:00 84 05/19/19 16:02 83 67/60 L 89 L 05/19/19 16:00 78 92 05/19/19 15:45 74 74 24 97 05/19/19 15:01 79 13 125/75 93 05/19/19 15:00 78 17 95 05/19/19 14:45 80 29 H 92 05/19/19 12:01 86 28 H 148/66 H 88 L 05/19/19 12:00 85 33 H 89 L 05/19/19 11:22 64 24 92 05/19/19 11:02 84 18 103/38 L 91 05/19/19 11:00 83 20 88 L 05/19/19 10:01 76 24 146/70 H 90 05/19/19 10:00 75 26 H 90 05/19/19 09:02 75 18 81/48 L 88 L 05/19/19 09:00 73 25 H 90 Laboratory Results Laboratory Results - last 24 hr 05/18/19 05/18/19 05/18/19 04:43 21:04 22:22 WBC RBC Hgb Hct MCV MCH MCHC RDW Std Deviation RDW Coeff of Ministerio Plt Count MPV Immature Gran % (Auto) Neut % (Auto) Lymph % (Auto) [place] % (Auto) Eos % (Auto) Baso % (Auto) Immature Gran # (Auto) Neut # (Auto) Lymph # (Auto) [place] # (Auto) Eos # (Auto) Baso # (Auto) Heparin Anti-Xa, LM Wt VBG pH VBG pCO2 VBG pO2 VBG HCO3 VBG O2 Saturation VBG Base Excess Sodium Potassium Chloride Carbon Dioxide Anion Gap BUN Creatinine Est Cr Clr Drug Dosing Est GFR ( Amer) Est GFR (Non-Af Amer) BUN/Creatinine Ratio Glucose POC Glucose 257 H 244 H Estimat Average Glucose Hemoglobin A1c Calcium Magnesium Bld Cult Staph aureus PCR Positive A Blood Culture MRSA PCR Positive A 05/18/19 05/19/19 05/19/19 23:22 00:07 01:00 WBC RBC Hgb Hct MCV MCH MCHC RDW Std Deviation RDW Coeff of Ministerio Plt Count MPV Immature Gran % (Auto) Neut % (Auto) Lymph % (Auto) [place] % (Auto) Eos % (Auto) Baso % (Auto) Immature Gran # (Auto) Neut # (Auto) Lymph # (Auto) [place] # (Auto) Eos # (Auto) Baso # (Auto) Heparin Anti-Xa, LM Wt VBG pH VBG pCO2 VBG pO2 VBG HCO3 VBG O2 Saturation VBG Base Excess Sodium Potassium Chloride Carbon Dioxide Anion Gap BUN Creatinine Est Cr Clr Drug Dosing Est GFR ( Amer) Est GFR (Non-Af Amer) BUN/Creatinine Ratio Glucose POC Glucose 237 H 242 H 270 H Estimat Average Glucose Hemoglobin A1c Calcium Magnesium Bld Cult Staph aureus PCR Blood Culture MRSA PCR 05/19/19 05/19/19 05/19/19 01:58 03:04 04:02 WBC RBC Hgb Hct MCV MCH MCHC RDW Std Deviation RDW Coeff of Ministerio Plt Count MPV Immature Gran % (Auto) Neut % (Auto) Lymph % (Auto) [place] % (Auto) Eos % (Auto) Baso % (Auto) Immature Gran # (Auto) Neut # (Auto) Lymph # (Auto) [place] # (Auto) Eos # (Auto) Baso # (Auto) Heparin Anti-Xa, LM Wt < 0.10 VBG pH VBG pCO2 VBG pO2 VBG HCO3 VBG O2 Saturation VBG Base Excess Sodium Potassium Chloride Carbon Dioxide Anion Gap BUN Creatinine Est Cr Clr Drug Dosing Est GFR ( Amer) Est GFR (Non-Af Amer) BUN/Creatinine Ratio Glucose POC Glucose 210 H 196 H Estimat Average Glucose Hemoglobin A1c Calcium Magnesium Bld Cult Staph aureus PCR Blood Culture MRSA PCR 05/19/19 05/19/19 05/19/19 04:02 04:02 04:02 WBC 18.35 H RBC 4.13 L Hgb 13.2 Hct 40.0 MCV 96.9 MCH 32.0 MCHC 33.0 RDW Std Deviation 46.9 H RDW Coeff of Ministerio 13.4 Plt Count 179 MPV 9.0 Immature Gran % (Auto) 0.7 Neut % (Auto) 92.3 Lymph % (Auto) 4.6 [place] % (Auto) 2.3 Eos % (Auto) 0.0 Baso % (Auto) 0.1 Immature Gran # (Auto) 0.12 H Neut # (Auto) 16.95 H Lymph # (Auto) 0.84 L [place] # (Auto) 0.43 Eos # (Auto) 0.00 Baso # (Auto) 0.01 Heparin Anti-Xa, LM Wt VBG pH VBG pCO2 VBG pO2 VBG HCO3 VBG O2 Saturation VBG Base Excess Sodium 135 L Potassium 3.7 Chloride 94 L Carbon Dioxide 36 H Anion Gap 5.0 BUN 20 H Creatinine 0.76 Est Cr Clr Drug Dosing 111.2 Est GFR ( Amer) 99.5 Est GFR (Non-Af Amer) 85.9 BUN/Creatinine Ratio 26.0 H Glucose 196 H POC Glucose Estimat Average Glucose 177 Hemoglobin A1c 7.8 H Calcium 9.9 Magnesium 1.9 Bld Cult Staph aureus PCR Blood Culture MRSA PCR 05/19/19 05/19/19 05/19/19 04:02 04:20 05:14 WBC RBC Hgb Hct MCV MCH MCHC RDW Std Deviation RDW Coeff of Ministerio Plt Count MPV Immature Gran % (Auto) Neut % (Auto) Lymph % (Auto) [place] % (Auto) Eos % (Auto) Baso % (Auto) Immature Gran # (Auto) Neut # (Auto) Lymph # (Auto) [place] # (Auto) Eos # (Auto) Baso # (Auto) Heparin Anti-Xa, LM Wt VBG pH 7.28 L VBG pCO2 76 H VBG pO2 49 VBG HCO3 35 VBG O2 Saturation 83.4 VBG Base Excess 5.9 Sodium Potassium Chloride Carbon Dioxide Anion Gap BUN Creatinine Est Cr Clr Drug Dosing Est GFR ( Amer) Est GFR (Non-Af Amer) BUN/Creatinine Ratio Glucose POC Glucose 190 H 187 H Estimat Average Glucose Hemoglobin A1c Calcium Magnesium Bld Cult Staph aureus PCR Blood Culture MRSA PCR 05/19/19 05/19/19 05/19/19 06:07 07:11 08:04 WBC RBC Hgb Hct MCV MCH MCHC RDW Std Deviation RDW Coeff of Ministerio Plt Count MPV Immature Gran % (Auto) Neut % (Auto) Lymph % (Auto) [place] % (Auto) Eos % (Auto) Baso % (Auto) Immature Gran # (Auto) Neut # (Auto) Lymph # (Auto) [place] # (Auto) Eos # (Auto) Baso # (Auto) Heparin Anti-Xa, LM Wt VBG pH VBG pCO2 VBG pO2 VBG HCO3 VBG O2 Saturation VBG Base Excess Sodium Potassium Chloride Carbon Dioxide Anion Gap BUN Creatinine Est Cr Clr Drug Dosing Est GFR ( Amer) Est GFR (Non-Af Amer) BUN/Creatinine Ratio Glucose POC Glucose 201 H 211 H 174 H Estimat Average Glucose Hemoglobin A1c Calcium Magnesium Bld Cult Staph aureus PCR Blood Culture MRSA PCR 05/19/19 05/19/19 05/19/19 09:08 10:09 11:16 WBC RBC Hgb Hct MCV MCH MCHC RDW Std Deviation RDW Coeff of Ministerio Plt Count MPV Immature Gran % (Auto) Neut % (Auto) Lymph % (Auto) [place] % (Auto) Eos % (Auto) Baso % (Auto) Immature Gran # (Auto) Neut # (Auto) Lymph # (Auto) [place] # (Auto) Eos # (Auto) Baso # (Auto) Heparin Anti-Xa, LM Wt VBG pH VBG pCO2 VBG pO2 VBG HCO3 VBG O2 Saturation VBG Base Excess Sodium Potassium Chloride Carbon Dioxide Anion Gap BUN Creatinine Est Cr Clr Drug Dosing Est GFR ( Amer) Est GFR (Non-Af Amer) BUN/Creatinine Ratio Glucose POC Glucose 182 H 211 H 175 H Estimat Average Glucose Hemoglobin A1c Calcium Magnesium Bld Cult Staph aureus PCR Blood Culture MRSA PCR 05/19/19 05/19/19 05/19/19 12:07 13:08 14:00 WBC RBC Hgb Hct MCV MCH MCHC RDW Std Deviation RDW Coeff of Ministerio Plt Count MPV Immature Gran % (Auto) Neut % (Auto) Lymph % (Auto) [place] % (Auto) Eos % (Auto) Baso % (Auto) Immature Gran # (Auto) Neut # (Auto) Lymph # (Auto) [place] # (Auto) Eos # (Auto) Baso # (Auto) Heparin Anti-Xa, LM Wt VBG pH VBG pCO2 VBG pO2 VBG HCO3 VBG O2 Saturation VBG Base Excess Sodium Potassium Chloride Carbon Dioxide Anion Gap BUN Creatinine Est Cr Clr Drug Dosing Est GFR ( Amer) Est GFR (Non-Af Amer) BUN/Creatinine Ratio Glucose POC Glucose 203 H 198 H 167 H Estimat Average Glucose Hemoglobin A1c Calcium Magnesium Bld Cult Staph aureus PCR Blood Culture MRSA PCR 05/19/19 05/19/19 15:09 16:07 WBC RBC Hgb Hct MCV MCH MCHC RDW Std Deviation RDW Coeff of Ministerio Plt Count MPV Immature Gran % (Auto) Neut % (Auto) Lymph % (Auto) [place] % (Auto) Eos % (Auto) Baso % (Auto) Immature Gran # (Auto) Neut # (Auto) Lymph # (Auto) [place] # (Auto) Eos # (Auto) Baso # (Auto) Heparin Anti-Xa, LM Wt VBG pH VBG pCO2 VBG pO2 VBG HCO3 VBG O2 Saturation VBG Base Excess Sodium Potassium Chloride Carbon Dioxide Anion Gap BUN Creatinine Est Cr Clr Drug Dosing Est GFR ( Amer) Est GFR (Non-Af Amer) BUN/Creatinine Ratio Glucose POC Glucose 128 H 113 H Estimat Average Glucose Hemoglobin A1c Calcium Magnesium Bld Cult Staph aureus PCR Blood Culture MRSA PCR Diagnostic Findings blood cx's from admission - 03/01 bottles + GPC in clusters; MRSA DNA testing from blood is POSITIVE. PG Care Time/CCT Total # of Minutes Spent Total Time Spent with Patient: Total time spent is greater than 50% in coordination of care (as documented) at patient's floor/unit and/or counseling patient: (1) LLL pneumonia Pneumonia type: due to methicillin-resistant Staphylococcus aureus (MRSA) Qualified Code(s): J15.212 - Pneumonia due to Methicillin resistant Staphylococcus aureus (2) COPD (chronic obstructive pulmonary disease) COPD type: COPD with acute exacerbation Qualified Code(s): J44.1 - Chronic obstructive pulmonary disease with (acute) exacerbation (3) Coronary atherosclerosis of [place] coronary vessel [place] vs. transplanted heart: [place] heart Associated angina: without angina Qualified Code(s): I25.10 - Atherosclerotic heart disease of [place] coronary artery without angina pectoris (4) Diastolic CHF Heart failure chronicity: chronic Qualified Code(s): I50.32 - Chronic diastolic (congestive) heart failure (5) Cirrhosis of liver Hepatic cirrhosis type: other cirrhosis Qualified Code(s): K74.69 - Other cirrhosis of liver (6) DM type 2 (diabetes mellitus, type 2) Diabetes mellitus medical terminologist insulin use: with medical terminologist use Diabetes mellitus complication status: with hyperglycemia Qualified Code(s): E11.65 - Type 2 diabetes mellitus with hyperglycemia; Z79.4 - FPC (current) use of insulin (7) Hypothyroidism Hypothyroidism type: acquired Qualified Code(s): E03.9 - Hypothyroidism, unspecified (8) Chest pain Chest pain type: unspecified Qualified Code(s): R07.9 - Chest pain, unspecified
[2019-05-19] MEDS: INSULIN GLARGINE SOLOSTAR 100 UNITS/ML 3 ML PEN SC SCH (20:59)
[2019-05-20] MEDS: methylPREDNISolone 60 MG in SYRINGE 0 ML IV SCH (03:49)
[2019-05-20] MEDS: ALBUT/IPRATROP 3MG/0.5MG NEB 3 ML VIAL INH SCH ×6 (03:51→23:03)
[2019-05-20 04:29] LABS: Basophils # (auto) 0.01 K/uL (0-0.2); Basophils % (auto) 0.1 %; Hematocrit (blood only) 36.4 % (37-47); Hemoglobin 11.9 g/dL (12.0-16.0); Immature Granulocytes # (auto) 0.08 K/uL (0.00-0.02); Immature Granulocytes % (auto) 0.5 %; Lymphocytes # (auto) 0.63 K/uL (1.2-3.4); Lymphocytes % (auto) 4.2 %; Mean Corpuscular Hgb Conc 32.7 g/dL (32-36); Mean Corpuscular Volume 96.6 fL (80-100); Mean Platelet Volume 9.3 fL (7.4-10.4); Monocytes # (auto) 0.74 K/uL (0.11-0.59); Neutrophils % (auto) 90.2 %; Platelet Count 171 K/uL (130-400); RDW Coefficient of Variation 13.2 % (11.5-14.5); RDW Standard Deviation 46.3 fL (36.4-46.3); Red Blood Count 3.77 M/uL (4.2-5.4); White Blood Count 14.86 K/uL (4.8-10.8)
[2019-05-20] MEDS: CEFTAROLINE FOSAMIL ACETATE 600 MG in SODIUM CHLORIDE 0.9% 250 ML IV SCH ×3 (04:29→20:10)
[2019-05-20 04:52] LABS: Calcium 9.5 mg/dl (8.5-10.1); Creatinine Clr Calc Pharmacy 138.1 ml/min; Est GFR (Non-African American) 99.2; Magnesium 2.1 mg/dl (1.8-2.4); Potassium 3.8 mmol/L (3.5-5.1)
[2019-05-20] MEDS: LEVOTHYROXINE SODIUM 200 MCG TABLET PO SCH (06:11)
[2019-05-20] MEDS: SPIRONOLACTONE 25 MG TAB PO SCH (08:07)
[2019-05-20] MEDS: ASPIRIN 81 MG ECTAB PO SCH (08:08)
[2019-05-20] MEDS: BUMETANIDE 1 MG TAB PO SCH (08:08)
[2019-05-20] MEDS: INSULIN GLARGINE SOLOSTAR 100 UNITS/ML 3 ML PEN SC SCH ×2 (08:08→21:11)
[2019-05-20] MEDS: ATORVASTATIN 40 MG TAB PO SCH (08:09)
[2019-05-20] MEDS: GABAPENTIN 100 MG CAP PO SCH ×3 (08:10→20:08)
[2019-05-20] MEDS: ENOXAPARIN INJ 40 MG/0.4 ML SYR SQ SCH (08:10)
[2019-05-20] MEDS: PANTOprazole 40 MG TAB PO SCH (08:11)
[2019-05-20] MEDS: CLOPIDOGREL BISULFATE 75 MG TAB PO SCH (08:11)
[2019-05-20] MEDS: INSULIN ASPART 100 UNITS/ML 3 ML PEN SC SCH ×4 (08:12→21:13)
[2019-05-20] MEDS: FAMOTIDINE 20 MG in SYRINGE 3 ML IV SCH ×2 (08:23→20:08)
--- NOTE | 2019-05-20 08:44 | Critical Care Progress Note ---
Date of Service May 20, 2019 Assessment & Plan (1) Admitted to intensive care unit: Reason Critically Ill: Ms. 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 She was admitted to the ICU for sepsis secondary to pneumonia, as well as acute on chronic hypoxic respiratory failure. Neuro: -Metabolic Encephalopathy: Resolved -> likely multifactorial, relating to hypoxic respiratory failure, sepsis -> ammonia level negative Cardiac: -Chronic diastolic CHF: Improved -> ECHO in 03/2019 showed normal LV systolic function, grade 2 diastolic dysfunction -> Mildly net positive increasing diuretic dosing x1 today -CAD s/p stent placement in 2011 -> continue aspirin, plavix, statin -> pt not on a beta phuong in outpt setting -> chest pain reproducible on exam, troponin negative, EKG without ST segment elevation -> unlikely to be ACS but will continue to monitor -Hypertension: Blood pressures consistently greater than 160 overnight -Adding 3.125 mg twice daily Coreg today Respiratory: -Acute on chronic hypoxic respiratory failure -Wean oxygen as tolerated -> likely secondary to LLL pneumonia seen on chest CTA as well as possible COPD exacerbation -> placed on BiPAP at home settings: Wear BiPAP at night and with naps IPAP 20 EPAP 10 -> Decreased dosing from 60 to 50 mg IV every 8 -> q4h duonebs: Convert to as needed -GEETHA -> normally on bipap nightly, is generally non-compliant -I suspect the patient has chronic obesity hypoventilation syndrome -She has changes consistent with chronic hypercarbia which are indicative of compensation for chronic respiratory acidosis Left lower lobe pneumonia: Chest x-ray ordered for tomorrow GI: -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 Anticipate hyperglycemia given high dose of IV steroids -> ISS --> gtt per unit policy -Hypothyroidism -> continue home synthroid -> TSH in 04/15 was 0.987 -Presumed adrenal insufficiency -> patient is steroid dependent - has been on 30mg of prednisone daily for her bullous pemphigoid -> receiving IV stress dose of steroids - will have to taper back down to home regimen HEME: -Stable H&H ID: -Sepsis secondary to LLL Pneumonia -MRSA bacteremia: On Teflaro -Repeat echo to evaluate for endocarditis -Will likely require transesophageal echo: This is been ordered and anesthesia consult has been placed -Anticipate obtaining Monday 05/21 -> pt has hx of MRSA and was also recently admitted to [facility] in 04/15 -> will treat for healthcare associated pneumonia with IV ceftaroline and levaquin -Discontinue Levaquin -> Repeat blood cultures: Positive Repeat blood cultures again today -Infectious disease consultation: Reviewed LINES/IV ACCESS: PIV x2 -Patient has been consented for PEG/midline however I am waiting until blood cultures are negative before we consider advanced vascular access CODE STATUS: FULL, per discussion with patient DVT PROPHYLAXIS: 40mg Lovenox SQ twice daily secondary to BMI greater than 55 -Increase to 60 mg as X-a level not optimized: Recheck 10 a level at 3 PM on 05/21 Activity: Patient reports that she is bedbound at present state and not engaged in physical therapy at [facility]. -PT OT consulted Patient's critical care needs have largely resolved, patient would be stable for downgrade to telemetry status however patient may benefit from remaining in ICU to facilitate KIA with procedural sedation tomorrow. (2) Severe sepsis: (3) Metabolic encephalopathy: (4) LLL pneumonia: (5) Chest pain: (6) DVT prophylaxis: (7) Neuropathy: (8) GEETHA treated with BiPAP: (9) Acute on chronic respiratory failure with hypoxia and hypercapnia: (10) Peripheral vascular disease: (11) Hypothyroidism: (12) Morbid obesity with BMI of 40.0-44.9, adult: (13) DM type 2 (diabetes mellitus, type 2): (14) Cirrhosis of liver: (15) COPD (chronic obstructive pulmonary disease): (16) Diastolic CHF: (17) Coronary atherosclerosis of [place] coronary vessel: (18) MRSA bacteremia: (19) Morbid obesity with BMI of 50.0-59.9, adult: (20) Immobility: Subjective States she is feeling so-so. At her baseline however has sore back and would like it either "cracked" or "rubbed" Review of Systems Review of Systems: No nausea no vomiting no loose stool. Physical Exam Physical Exam: General: Alert. nontoxic. Skin: Warm, dry, Head: Atraumatic Ears, nose, mouth and throat: airway patent Cardiovascular: Normal peripheral perfusion Respiratory: no respiratory distress Gastrointestinal: Non distended Musculoskeletal: No deformity Results & Data Vital Signs (Past 12 Hours) Vital Signs Temp Pulse Pulse Pulse Resp BP Pulse Ox 05/20/19 08:23 71 22 91 05/20/19 06:00 62 15 176/79 H 93 05/20/19 04:00 36.8 C 65 20 149/81 H 95 05/20/19 03:53 62 21 96 05/20/19 03:52 62 21 96 05/20/19 02:00 60 22 171/63 H 95 05/20/19 00:00 36.7 C 66 24 151/56 H 95 05/19/19 23:27 63 23 96 05/19/19 23:26 67 23 96 05/19/19 22:17 78 20 96 05/19/19 22:00 65 24 161/60 H 96 Pulse Ox 05/20/19 08:23 05/20/19 06:00 05/20/19 04:00 05/20/19 03:53 05/20/19 03:52 05/20/19 02:00 05/20/19 00:00 95 05/19/19 23:27 05/19/19 23:26 05/19/19 22:17 05/19/19 22:00 Laboratory Results 05/20/19 05/20/19 05/20/19 Range/Units 07:09 06:15 05:04 WBC (4.8-10.8) K/uL RBC (4.2-5.4) M/uL Hgb (12.0-16.0) g/dL Hct (37-47) % MCV (80-100) fL MCH (25-34) pg MCHC (32-36) g/dL RDW Std Deviation (36.4-46.3) fL RDW Coeff of Ministerio (11.5-14.5) % Plt Count (130-400) K/uL MPV (7.4-10.4) fL Immature Gran % (Auto) % Neut % (Auto) % Lymph % (Auto) % [place] % (Auto) % Eos % (Auto) % Baso % (Auto) % Immature Gran # (Auto) (0.00-0.02) K/uL Neut # (Auto) (1.4-6.5) K/uL Lymph # (Auto) (1.2-3.4) K/uL [place] # (Auto) (0.11-0.59) K/uL Eos # (Auto) (0-0.5) K/uL Baso # (Auto) (0-0.2) K/uL Sodium (136-145) mmol/L Potassium (3.5-5.1) mmol/L Chloride (98-107) mmol/L Carbon Dioxide (21-32) mmol/L Anion Gap (3-11) BUN (7-18) mg/dl Creatinine (0.6-1.2) mg/dl Est Cr Clr Drug Dosing ml/min Est GFR ( Amer) Est GFR (Non-Af Amer) BUN/Creatinine Ratio (10-20) Glucose (70-99) mg/dl POC Glucose 175 H 155 H 155 H (70-99) Calcium (8.5-10.1) mg/dl Magnesium (1.8-2.4) mg/dl 05/20/19 05/20/19 05/20/19 Range/Units 04:05 04:03 04:03 WBC 14.86 H (4.8-10.8) K/uL RBC 3.77 L (4.2-5.4) M/uL Hgb 11.9 L (12.0-16.0) g/dL Hct 36.4 L (37-47) % MCV 96.6 (80-100) fL MCH 31.6 (25-34) pg MCHC 32.7 (32-36) g/dL RDW Std Deviation 46.3 (36.4-46.3) fL RDW Coeff of Ministerio 13.2 (11.5-14.5) % Plt Count 171 (130-400) K/uL MPV 9.3 (7.4-10.4) fL Immature Gran % (Auto) 0.5 % Neut % (Auto) 90.2 % Lymph % (Auto) 4.2 % [place] % (Auto) 5.0 % Eos % (Auto) 0.0 % Baso % (Auto) 0.1 % Immature Gran # (Auto) 0.08 H (0.00-0.02) K/uL Neut # (Auto) 13.40 H (1.4-6.5) K/uL Lymph # (Auto) 0.63 L (1.2-3.4) K/uL [place] # (Auto) 0.74 H (0.11-0.59) K/uL Eos # (Auto) 0.00 (0-0.5) K/uL Baso # (Auto) 0.01 (0-0.2) K/uL Sodium 134 L (136-145) mmol/L Potassium 3.8 (3.5-5.1) mmol/L Chloride 96 L (98-107) mmol/L Carbon Dioxide 36 H (21-32) mmol/L Anion Gap 2.0 L (3-11) BUN 19 H (7-18) mg/dl Creatinine 0.61 (0.6-1.2) mg/dl Est Cr Clr Drug Dosing 138.1 ml/min Est GFR ( Amer) 115.0 Est GFR (Non-Af Amer) 99.2 BUN/Creatinine Ratio 31.0 H (10-20) Glucose 157 H (70-99) mg/dl POC Glucose 156 H (70-99) Calcium 9.5 (8.5-10.1) mg/dl Magnesium 2.1 (1.8-2.4) mg/dl 05/20/19 05/20/19 05/20/19 Range/Units 03:15 02:05 01:07 WBC (4.8-10.8) K/uL RBC (4.2-5.4) M/uL Hgb (12.0-16.0) g/dL Hct (37-47) % MCV (80-100) fL MCH (25-34) pg MCHC (32-36) g/dL RDW Std Deviation (36.4-46.3) fL RDW Coeff of Ministerio (11.5-14.5) % Plt Count (130-400) K/uL MPV (7.4-10.4) fL Immature Gran % (Auto) % Neut % (Auto) % Lymph % (Auto) % [place] % (Auto) % Eos % (Auto) % Baso % (Auto) % Immature Gran # (Auto) (0.00-0.02) K/uL Neut # (Auto) (1.4-6.5) K/uL Lymph # (Auto) (1.2-3.4) K/uL [place] # (Auto) (0.11-0.59) K/uL Eos # (Auto) (0-0.5) K/uL Baso # (Auto) (0-0.2) K/uL Sodium (136-145) mmol/L Potassium (3.5-5.1) mmol/L Chloride (98-107) mmol/L Carbon Dioxide (21-32) mmol/L Anion Gap (3-11) BUN (7-18) mg/dl Creatinine (0.6-1.2) mg/dl Est Cr Clr Drug Dosing ml/min Est GFR ( Amer) Est GFR (Non-Af Amer) BUN/Creatinine Ratio (10-20) Glucose (70-99) mg/dl POC Glucose 154 H 208 H 196 H (70-99) Calcium (8.5-10.1) mg/dl Magnesium (1.8-2.4) mg/dl 05/19/19 05/19/19 05/19/19 Range/Units 23:55 23:13 21:52 WBC (4.8-10.8) K/uL RBC (4.2-5.4) M/uL Hgb (12.0-16.0) g/dL Hct (37-47) % MCV (80-100) fL MCH (25-34) pg MCHC (32-36) g/dL RDW Std Deviation (36.4-46.3) fL RDW Coeff of Ministerio (11.5-14.5) % Plt Count (130-400) K/uL MPV (7.4-10.4) fL Immature Gran % (Auto) % Neut % (Auto) % Lymph % (Auto) % [place] % (Auto) % Eos % (Auto) % Baso % (Auto) % Immature Gran # (Auto) (0.00-0.02) K/uL Neut # (Auto) (1.4-6.5) K/uL Lymph # (Auto) (1.2-3.4) K/uL [place] # (Auto) (0.11-0.59) K/uL Eos # (Auto) (0-0.5) K/uL Baso # (Auto) (0-0.2) K/uL Sodium (136-145) mmol/L Potassium (3.5-5.1) mmol/L Chloride (98-107) mmol/L Carbon Dioxide (21-32) mmol/L Anion Gap (3-11) BUN (7-18) mg/dl Creatinine (0.6-1.2) mg/dl Est Cr Clr Drug Dosing ml/min Est GFR ( Amer) Est GFR (Non-Af Amer) BUN/Creatinine Ratio (10-20) Glucose (70-99) mg/dl POC Glucose 170 H 187 H 206 H (70-99) Calcium (8.5-10.1) mg/dl Magnesium (1.8-2.4) mg/dl 05/19/19 05/19/19 05/19/19 Range/Units 19:45 18:32 17:05 WBC (4.8-10.8) K/uL RBC (4.2-5.4) M/uL Hgb (12.0-16.0) g/dL Hct (37-47) % MCV (80-100) fL MCH (25-34) pg MCHC (32-36) g/dL RDW Std Deviation (36.4-46.3) fL RDW Coeff of Ministerio (11.5-14.5) % Plt Count (130-400) K/uL MPV (7.4-10.4) fL Immature Gran % (Auto) % Neut % (Auto) % Lymph % (Auto) % [place] % (Auto) % Eos % (Auto) % Baso % (Auto) % Immature Gran # (Auto) (0.00-0.02) K/uL Neut # (Auto) (1.4-6.5) K/uL Lymph # (Auto) (1.2-3.4) K/uL [place] # (Auto) (0.11-0.59) K/uL Eos # (Auto) (0-0.5) K/uL Baso # (Auto) (0-0.2) K/uL Sodium (136-145) mmol/L Potassium (3.5-5.1) mmol/L Chloride (98-107) mmol/L Carbon Dioxide (21-32) mmol/L Anion Gap (3-11) BUN (7-18) mg/dl Creatinine (0.6-1.2) mg/dl Est Cr Clr Drug Dosing ml/min Est GFR ( Amer) Est GFR (Non-Af Amer) BUN/Creatinine Ratio (10-20) Glucose (70-99) mg/dl POC Glucose 166 H 144 H 129 H (70-99) Calcium (8.5-10.1) mg/dl Magnesium (1.8-2.4) mg/dl 05/19/19 05/19/19 05/19/19 Range/Units 16:07 15:09 14:00 WBC (4.8-10.8) K/uL RBC (4.2-5.4) M/uL Hgb (12.0-16.0) g/dL Hct (37-47) % MCV (80-100) fL MCH (25-34) pg MCHC (32-36) g/dL RDW Std Deviation (36.4-46.3) fL RDW Coeff of Ministerio (11.5-14.5) % Plt Count (130-400) K/uL MPV (7.4-10.4) fL Immature Gran % (Auto) % Neut % (Auto) % Lymph % (Auto) % [place] % (Auto) % Eos % (Auto) % Baso % (Auto) % Immature Gran # (Auto) (0.00-0.02) K/uL Neut # (Auto) (1.4-6.5) K/uL Lymph # (Auto) (1.2-3.4) K/uL [place] # (Auto) (0.11-0.59) K/uL Eos # (Auto) (0-0.5) K/uL Baso # (Auto) (0-0.2) K/uL Sodium (136-145) mmol/L Potassium (3.5-5.1) mmol/L Chloride (98-107) mmol/L Carbon Dioxide (21-32) mmol/L Anion Gap (3-11) BUN (7-18) mg/dl Creatinine (0.6-1.2) mg/dl Est Cr Clr Drug Dosing ml/min Est GFR ( Amer) Est GFR (Non-Af Amer) BUN/Creatinine Ratio (10-20) Glucose (70-99) mg/dl POC Glucose 113 H 128 H 167 H (70-99) Calcium (8.5-10.1) mg/dl Magnesium (1.8-2.4) mg/dl 05/19/19 05/19/19 05/19/19 Range/Units 13:08 12:07 11:16 WBC (4.8-10.8) K/uL RBC (4.2-5.4) M/uL Hgb (12.0-16.0) g/dL Hct (37-47) % MCV (80-100) fL MCH (25-34) pg MCHC (32-36) g/dL RDW Std Deviation (36.4-46.3) fL RDW Coeff of Ministerio (11.5-14.5) % Plt Count (130-400) K/uL MPV (7.4-10.4) fL Immature Gran % (Auto) % Neut % (Auto) % Lymph % (Auto) % [place] % (Auto) % Eos % (Auto) % Baso % (Auto) % Immature Gran # (Auto) (0.00-0.02) K/uL Neut # (Auto) (1.4-6.5) K/uL Lymph # (Auto) (1.2-3.4) K/uL [place] # (Auto) (0.11-0.59) K/uL Eos # (Auto) (0-0.5) K/uL Baso # (Auto) (0-0.2) K/uL Sodium (136-145) mmol/L Potassium (3.5-5.1) mmol/L Chloride (98-107) mmol/L Carbon Dioxide (21-32) mmol/L Anion Gap (3-11) BUN (7-18) mg/dl Creatinine (0.6-1.2) mg/dl Est Cr Clr Drug Dosing ml/min Est GFR ( Amer) Est GFR (Non-Af Amer) BUN/Creatinine Ratio (10-20) Glucose (70-99) mg/dl POC Glucose 198 H 203 H 175 H (70-99) Calcium (8.5-10.1) mg/dl Magnesium (1.8-2.4) mg/dl 05/19/19 05/19/19 Range/Units 10:09 09:08 WBC (4.8-10.8) K/uL RBC (4.2-5.4) M/uL Hgb (12.0-16.0) g/dL Hct (37-47) % MCV (80-100) fL MCH (25-34) pg MCHC (32-36) g/dL RDW Std Deviation (36.4-46.3) fL RDW Coeff of Ministerio (11.5-14.5) % Plt Count (130-400) K/uL MPV (7.4-10.4) fL Immature Gran % (Auto) % Neut % (Auto) % Lymph % (Auto) % [place] % (Auto) % Eos % (Auto) % Baso % (Auto) % Immature Gran # (Auto) (0.00-0.02) K/uL Neut # (Auto) (1.4-6.5) K/uL Lymph # (Auto) (1.2-3.4) K/uL [place] # (Auto) (0.11-0.59) K/uL Eos # (Auto) (0-0.5) K/uL Baso # (Auto) (0-0.2) K/uL Sodium (136-145) mmol/L Potassium (3.5-5.1) mmol/L Chloride (98-107) mmol/L Carbon Dioxide (21-32) mmol/L Anion Gap (3-11) BUN (7-18) mg/dl Creatinine (0.6-1.2) mg/dl Est Cr Clr Drug Dosing ml/min Est GFR ( Amer) Est GFR (Non-Af Amer) BUN/Creatinine Ratio (10-20) Glucose (70-99) mg/dl POC Glucose 211 H 182 H (70-99) Calcium (8.5-10.1) mg/dl Magnesium (1.8-2.4) mg/dl (1) LLL pneumonia Pneumonia type: due to methicillin-resistant Staphylococcus aureus (MRSA) Qualified Code(s): J15.212 - Pneumonia due to Methicillin resistant Staph ylococcus aureus (2) Chest pain Chest pain type: unspecified Qualified Code(s): R07.9 - Chest pain, unspecified (3) Hypothyroidism Hypothyroidism type: acquired Qualified Code(s): E03.9 - Hypothyroidism, unspecified (4) DM type 2 (diabetes mellitus, type 2) Diabetes mellitus intermission coordinator insulin use: with intermission coordinator use Diabetes mellitus complication status: with hyperglycemia Qualified Code(s): E11.65 - Type 2 diabetes mellitus with hyperglycemia; Z79.4 - termination clerk (current) use of insulin (5) Cirrhosis of liver Hepatic cirrhosis type: other cirrhosis Qualified Code(s): K74.69 - Other cirrhosis of liver (6) COPD (chronic obstructive pulmonary disease) COPD type: COPD with acute exacerbation Qualified Code(s): J44.1 - Chronic obstructive pulmonary disease with (acute) exacerbation (7) Diastolic CHF Heart failure chronicity: chronic Qualified Code(s): I50.32 - Chronic diastolic (congestive) heart failure (8) Coronary atherosclerosis of [place] coronary vessel [place] vs. transplanted heart: [place] heart Associated angina: without angina Qualified Code(s): I25.10 - Atherosclerotic heart disease of [place] coronary artery without angina pectoris
[2019-05-20] MEDS ORDERED: POTASSIUM CHLORIDE PWD 20 MEQ PACK PO ONE (09:15)
[2019-05-20] MEDS ORDERED: CHLOROTHIAZIDE SODIUM 500 MG in DEXTROSE 5% 50 ML IV ONE (09:30)
[2019-05-20] MEDS ORDERED: acetaZOLAMIDE 500 MG in SYRINGE 0 ML IV ONE (09:30)
[2019-05-20] MEDS ORDERED: ENOXAPARIN INJ 30 MG/0.3 ML SYR SQ ONE (09:30)
--- NOTE | 2019-05-20 09:34 | Hospitalist Progress Note ---
Date of Service May 20, 2019 Assessment & Plan (1) MRSA bacteremia: source - lung (LLL pneumonia) +/- skin given the numerous healing lesions. she had a MRSA furuncle on her left neck that required I/D during previous admission. 2D echo ordered but limited views were seen due to body habitus. plan for KIA tomorrow, likely in the ICU, keep in ICU for this purpose repeat blood cultures on 05/19, already with gram positive cocci in clusters continue Ceftaroline per ID, will need 14 days from negative culture ID following (2) Severe sepsis: 2nd to LLL pneumonia and MRSA bacteremia/septicemia. See "MRSA bacteremia" above. Sepsis resolved, vitals stable, WBC trending down, no fever (3) LLL pneumonia: As seen on CT chest. High likelihood this is due to MRSA. Cont abx (ceftaroline). Day #3 of therapy. Supportive care, BIPAP as needed. ultimately would need 7 days of abx but will have more than enough coverage in treating bacteremia (4) Acute on chronic respiratory failure with hypoxia and hypercapnia: Acute component 2nd to LLL pneumonia and COPD flare. Chronic - COPD, GEETHA, OHS, etc. Acute component much improved Agree with weaning of steroids. Abx for LLL pneumonia per ID/critical care. (5) Metabolic encephalopathy: Due to sepsis/pneumonia - resolved. Ammonia level was normal. VBGs with hypercarbia but this has slowly improved. Avoid hyperoxia; keep sats low 90s. Avoid narcotics. Keep euglycemic. (6) COPD (chronic obstructive pulmonary disease): with exacerbation. Agree w/ weaning of solumedrol from 60mg to 50mg q8h dosing. Nebs q4h. BIPAP and NC O2. Supportive care. (7) Coronary atherosclerosis of cheesh-na coronary vessel: Resumed asa, plavix, statin. Troponins negative. EKG without ischemic changes. Chest pain is musculoskeletal - reproducible on exam. Consider k-pad. (8) Diastolic CHF: Was volume contracted clinically at admission, then received fluid resuscitation for severe sepsis. May have developed mild fluid overload late yesterday. Diuretics resumed, Bumex and Diamox (9) Tobacco use disorder: Offer nicoderm patch if truly still smoking at SNF. (10) Cirrhosis of liver: 2nd to ABDI and/or autoimmune causes. Ammonia level was normal. INR stable. LFTs stable. (11) DM type 2 (diabetes mellitus, type 2): Appreciate Pharmacy glycemic assistance. Now on insulin infusion due to hyperglycemia from steroids. (12) Hypothyroidism: TSH within the last 2 months wnl. Cont synthroid. (13) Hyponatremia: Due to volume contraction at admission. Resolved. (14) Bullous pemphigoid: Controlled. No active bullae at this time. On chronic prednisone 30mg/day and niacinamide 500mg TID at home Giving stress dose steroids for sepsis and COPD exacerbation, Solu Medrol 50mg q8 (15) Chest pain: Musculoskeletal. Reproducible on exam; EKG w/o ischemic changes; troponins negative. (16) Morbid obesity with BMI of 50.0-59.9, adult: BMI 55 (17) DVT prophylaxis: lovenox 40mg daily told patient she would NOT be a candidate to return to her actual home in [place] UNLESS she had 24/7 caregivers. daughter stated that would never be possible. social work assistance appreciated. would need SNF again at d/c. patient does NOT want to go to [facility], we can discuss with CM tomorrow about alternative SNF Subjective patient's main complaint is her low back pain says her pain is worse than normal, likely the bed her breathing is at baseline, no chest pain, no fever/chills, no cough discussed lab results, WBC down to 14k from 18k Cr is stable, electrolytes normal repeat blood cultures on 05/19 with gram positive bacteria in clusters appreciate critical care note and ID recs, will need KIA, plan for tomorrow patient discussed not wanting to go to [facility], but understands she needs a SNF asked to speak with CM tomorrow about alternative options Review of Systems Review of Systems: All systems reviewed & are unremarkable except as noted in HPI & below Constitutional: no fever, no chills, no sweats, no fatigue and no weakness Respiratory: no cough and no dyspnea Cardiovascular: no chest pain Gastrointestinal: no abdominal pain, no nausea, no vomiting, no constipation and no diarrhea/loose stools Musculoskeletal: + back pain Physical Exam Constitutional: WD/WN, vitals as above + obese Eyes: PERRL, conjunctivae normal, anicteric sclerae ENMT: external ear and nose normal, oropharynx normal Neck: trachea midline, no thyromegaly Respiratory: normal respiratory effort, lungs clear to auscultation Cardiovascular: RRR, no murmur, no edema Gastrointestinal (Abdomen): normal bowel sounds, soft, nontender, no hepatosplenomegaly Musculoskeletal: no cyanosis or clubbing, extremities motor strength 5/5 Spine: + limited thoraco-lumbar ROM (due to pain) Skin: + rash (numerous dry rashes, erythematous), + dry skin and + nails dystrophic Neurologic: patellar DTR's 2+ bilat, sensation intact and PERRL, EOMI, accommodation nl, no face palsy, no dysarthria Psychiatric: Orientation: alert and oriented x 3 Affect: + depressed affect Lymphatic: no cervical or axillary lymphadenopathy Results & Data Vital Signs (Past 12 Hours) Vital Signs Temp Pulse Pulse Pulse Resp BP BP 05/20/19 08:23 71 22 05/20/19 08:01 69 24 165/71 H 05/20/19 08:00 72 28 H 05/20/19 07:01 64 14 167/76 H 05/20/19 07:00 64 27 H 05/20/19 06:00 62 15 176/79 H 05/20/19 04:00 36.8 C 65 20 149/81 H 05/20/19 03:53 62 21 05/20/19 03:52 62 21 05/20/19 02:00 60 22 171/63 H 05/20/19 00:00 36.7 C 66 24 151/56 H 05/19/19 23:27 63 23 05/19/19 23:26 67 23 05/19/19 22:17 78 20 05/19/19 22:00 65 24 161/60 H Pulse Ox Pulse Ox 05/20/19 08:23 91 05/20/19 08:01 94 05/20/19 08:00 95 05/20/19 07:01 94 05/20/19 07:00 93 05/20/19 06:00 93 05/20/19 04:00 95 05/20/19 03:53 96 05/20/19 03:52 96 05/20/19 02:00 95 05/20/19 00:00 95 95 05/19/19 23:27 96 05/19/19 23:26 96 05/19/19 22:17 96 05/19/19 22:00 96 Laboratory Results Laboratory Results - last 24 hr 05/19/19 05/19/19 05/19/19 09:08 10:09 11:16 WBC RBC Hgb Hct MCV MCH MCHC RDW Std Deviation RDW Coeff of Ministerio Plt Count MPV Immature Gran % (Auto) Neut % (Auto) Lymph % (Auto) [place] % (Auto) Eos % (Auto) Baso % (Auto) Immature Gran # (Auto) Neut # (Auto) Lymph # (Auto) [place] # (Auto) Eos # (Auto) Baso # (Auto) Sodium Potassium Chloride Carbon Dioxide Anion Gap BUN Creatinine Est Cr Clr Drug Dosing Est GFR ( Amer) Est GFR (Non-Af Amer) BUN/Creatinine Ratio Glucose POC Glucose 182 H 211 H 175 H Calcium Magnesium 05/19/19 05/19/19 05/19/19 12:07 13:08 14:00 WBC RBC Hgb Hct MCV MCH MCHC RDW Std Deviation RDW Coeff of Ministerio Plt Count MPV Immature Gran % (Auto) Neut % (Auto) Lymph % (Auto) [place] % (Auto) Eos % (Auto) Baso % (Auto) Immature Gran # (Auto) Neut # (Auto) Lymph # (Auto) [place] # (Auto) Eos # (Auto) Baso # (Auto) Sodium Potassium Chloride Carbon Dioxide Anion Gap BUN Creatinine Est Cr Clr Drug Dosing Est GFR ( Amer) Est GFR (Non-Af Amer) BUN/Creatinine Ratio Glucose POC Glucose 203 H 198 H 167 H Calcium Magnesium 05/19/19 05/19/19 05/19/19 15:09 16:07 17:05 WBC RBC Hgb Hct MCV MCH MCHC RDW Std Deviation RDW Coeff of Ministerio Plt Count MPV Immature Gran % (Auto) Neut % (Auto) Lymph % (Auto) [place] % (Auto) Eos % (Auto) Baso % (Auto) Immature Gran # (Auto) Neut # (Auto) Lymph # (Auto) [place] # (Auto) Eos # (Auto) Baso # (Auto) Sodium Potassium Chloride Carbon Dioxide Anion Gap BUN Creatinine Est Cr Clr Drug Dosing Est GFR ( Amer) Est GFR (Non-Af Amer) BUN/Creatinine Ratio Glucose POC Glucose 128 H 113 H 129 H Calcium Magnesium 05/19/19 05/19/19 05/19/19 18:32 19:45 21:52 WBC RBC Hgb Hct MCV MCH MCHC RDW Std Deviation RDW Coeff of Ministerio Plt Count MPV Immature Gran % (Auto) Neut % (Auto) Lymph % (Auto) [place] % (Auto) Eos % (Auto) Baso % (Auto) Immature Gran # (Auto) Neut # (Auto) Lymph # (Auto) [place] # (Auto) Eos # (Auto) Baso # (Auto) Sodium Potassium Chloride Carbon Dioxide Anion Gap BUN Creatinine Est Cr Clr Drug Dosing Est GFR ( Amer) Est GFR (Non-Af Amer) BUN/Creatinine Ratio Glucose POC Glucose 144 H 166 H 206 H Calcium Magnesium 05/19/19 05/19/19 05/20/19 23:13 23:55 01:07 WBC RBC Hgb Hct MCV MCH MCHC RDW Std Deviation RDW Coeff of Ministerio Plt Count MPV Immature Gran % (Auto) Neut % (Auto) Lymph % (Auto) [place] % (Auto) Eos % (Auto) Baso % (Auto) Immature Gran # (Auto) Neut # (Auto) Lymph # (Auto) [place] # (Auto) Eos # (Auto) Baso # (Auto) Sodium Potassium Chloride Carbon Dioxide Anion Gap BUN Creatinine Est Cr Clr Drug Dosing Est GFR ( Amer) Est GFR (Non-Af Amer) BUN/Creatinine Ratio Glucose POC Glucose 187 H 170 H 196 H Calcium Magnesium 05/20/19 05/20/19 05/20/19 02:05 03:15 04:03 WBC 14.86 H RBC 3.77 L Hgb 11.9 L Hct 36.4 L MCV 96.6 MCH 31.6 MCHC 32.7 RDW Std Deviation 46.3 RDW Coeff of Ministerio 13.2 Plt Count 171 MPV 9.3 Immature Gran % (Auto) 0.5 Neut % (Auto) 90.2 Lymph % (Auto) 4.2 [place] % (Auto) 5.0 Eos % (Auto) 0.0 Baso % (Auto) 0.1 Immature Gran # (Auto) 0.08 H Neut # (Auto) 13.40 H Lymph # (Auto) 0.63 L [place] # (Auto) 0.74 H Eos # (Auto) 0.00 Baso # (Auto) 0.01 Sodium Potassium Chloride Carbon Dioxide Anion Gap BUN Creatinine Est Cr Clr Drug Dosing Est GFR ( Amer) Est GFR (Non-Af Amer) BUN/Creatinine Ratio Glucose POC Glucose 208 H 154 H Calcium Magnesium 05/20/19 05/20/19 05/20/19 04:03 04:05 05:04 WBC RBC Hgb Hct MCV MCH MCHC RDW Std Deviation RDW Coeff of Ministerio Plt Count MPV Immature Gran % (Auto) Neut % (Auto) Lymph % (Auto) [place] % (Auto) Eos % (Auto) Baso % (Auto) Immature Gran # (Auto) Neut # (Auto) Lymph # (Auto) [place] # (Auto) Eos # (Auto) Baso # (Auto) Sodium 134 L Potassium 3.8 Chloride 96 L Carbon Dioxide 36 H Anion Gap 2.0 L BUN 19 H Creatinine 0.61 Est Cr Clr Drug Dosing 138.1 Est GFR ( Amer) 115.0 Est GFR (Non-Af Amer) 99.2 BUN/Creatinine Ratio 31.0 H Glucose 157 H POC Glucose 156 H 155 H Calcium 9.5 Magnesium 2.1 05/20/19 05/20/19 06:15 07:09 WBC RBC Hgb Hct MCV MCH MCHC RDW Std Deviation RDW Coeff of Ministerio Plt Count MPV Immature Gran % (Auto) Neut % (Auto) Lymph % (Auto) [place] % (Auto) Eos % (Auto) Baso % (Auto) Immature Gran # (Auto) Neut # (Auto) Lymph # (Auto) [place] # (Auto) Eos # (Auto) Baso # (Auto) Sodium Potassium Chloride Carbon Dioxide Anion Gap BUN Creatinine Est Cr Clr Drug Dosing Est GFR ( Amer) Est GFR (Non-Af Amer) BUN/Creatinine Ratio Glucose POC Glucose 155 H 175 H Calcium Magnesium Microbiology 05/19/19 08:12 Blood Aerobic Blood Culture - Preliminary Gram positive cocci clusters 05/19/19 08:12 Blood Anaerobic Blood Culture - Preliminary No growth in Anaerobic bottle after 24 hours. 05/19/19 08:16 Blood Aerobic Blood Culture - Preliminary Gram positive cocci clusters 05/19/19 08:16 Blood Anaerobic Blood Culture - Preliminary No growth in Anaerobic bottle after 24 hours. 05/18/19 04:35 Blood Aerobic Blood Culture - Final Staph aureus MRSA 05/18/19 04:35 Blood Anaerobic Blood Culture - Final Staph aureus MRSA 05/18/19 04:48 Blood Aerobic Blood Culture - Final Staph aureus MRSA 05/18/19 04:48 Blood Anaerobic Blood Culture - Final Staph aureus MRSA Medications Administered Current Inpatient Medications Albuterol (Duoneb) 3 ml INH Q4R [facility] Stop: 06/17/19 11:59 Last Admin: 05/20/19 03:51 Dose: 3 ml Documented by: Aspirin (Ecotrin Ectab) 81 mg PO DAILY [facility] Stop: 06/17/19 09:57 Last Admin: 05/20/19 08:08 Dose: 81 mg Documented by: Atorvastatin Calcium (Lipitor) 40 mg PO DAILY [facility] Stop: 06/17/19 09:57 Last Admin: 05/20/19 08:09 Dose: 40 mg Documented by: Betamethasone Dipropion Augmented (Diprolene 0.05%) 1 appln TOP Q8 PRN PRN Reason: bullous pemphigoid eruptions Last Admin: 05/18/19 10:46 Dose: 1 appln Documented by: Bumetanide (Bumex) 2 mg PO QAM [facility] Stop: 06/18/19 09:14 Last Admin: 05/20/19 08:08 Dose: 2 mg Documented by: Carvedilol (Coreg) 3.125 mg PO BID [facility] Stop: 06/19/19 08:59 Clopidogrel Bisulfate (Plavix) 75 mg PO DAILY [facility] Stop: 06/17/19 09:57 Last Admin: 05/20/19 08:11 Dose: 75 mg Documented by: Dextrose (Dextrose 50%) 25 - 50 ml IV UD PRN; Protocol PRN Reason: Hypoglycemia Protocol Stop: 06/17/19 11:44 Enoxaparin Sodium (Lovenox) 60 mg SQ BID [facility] Stop: 06/19/19 20:59 Enoxaparin Sodium (Lovenox) 20 mg SQ 0930 ONE Stop: 05/20/19 09:31 Gabapentin (Neurontin) 100 mg PO TID [facility] Stop: 06/17/19 09:57 Last Admin: 05/20/19 08:10 Dose: 100 mg Documented by: Glucagon (Glucagen) 1 mg SQ UD PRN; Protocol PRN Reason: Hypoglycemia Protocol Stop: 06/17/19 11:44 Glucose (Glucose 40%) 15 - 30 gm PO UD PRN; Protocol PRN Reason: Hypoglycemia Protocol Stop: 06/17/19 11:44 Glucose (Dex4 Glucose) 4 - 8 tabs PO UD PRN; Protocol PRN Reason: Hypoglycemia Protocol Stop: 06/17/19 11:44 Famotidine 20 mg/ Syringe 5 mls @ 2.5 mls/min IV Q12 [facility] Stop: 06/17/19 09:57 Last Admin: 05/20/19 08:23 Dose: 2.5 mls/min Documented by: Ceftaroline Fosamil 600 mg/ (Sodium Chloride) 270 mls @ 270 mls/hr IV Q8H [facility] Stop: 05/25/19 12:59 Last Infusion: 05/20/19 05:35 Dose: Infused Documented by: Insulin Human Regular 250 (units/ Sodium Chloride) 250 mls @ 7.2 mls/hr IV .Q24H [facility]; Protocol Stop: 06/17/19 18:59 Last Titration: 05/20/19 06:59 Dose: 7.4 units/hr, 7.4 mls/hr Documented by: Acetazolamide 500 mg/ Syringe 5 mls @ 5 mls/min IV 0930 ONE Stop: 05/20/19 09:31 Chlorothiazide Sodium 500 mg/ (Dextrose) 68 mls @ 200 mls/hr IV 0930 ONE Stop: 05/20/19 09:50 Methylprednisolone 50 mg/ (Syringe) 0.8 mls @ 1.5 mls/min IV Q8H [facility] Stop: 06/19/19 11:59 Insulin Aspart (Novolog Flexpen) 0 units SC Q6 [facility] Stop: 06/17/19 17:59 Last Admin: 05/18/19 18:07 Dose: 10 units Documented by: Insulin Aspart (Novolog Flexpen) 0 units SC PCHS [facility] Stop: 06/17/19 20:59 Last Admin: 05/20/19 08:12 Dose: 14 units Documented by: Insulin Glargine (Lantus Solostar Pen) 0 units SC BID [facility]; Protocol Stop: 06/18/19 20:59 Last Admin: 05/20/19 08:08 Dose: 50 units Documented by: Levothyroxine Sodium (Synthroid) 200 mcg PO DAILYBB [facility] Stop: 06/17/19 09:57 Last Admin: 05/20/19 06:11 Dose: 200 mcg Documented by: Miscellaneous (Icu Protocol For Hyperglycemia) 1 ea N/A PRN PRN; Protocol PRN Reason: Hyperglycemia Protocol Stop: 05/20/19 09:57 Miscellaneous (Carbohydrates For Hypoglycemia) 15 - 30 gm PO UD PRN PRN Reason: Hypoglycemia Treatment Stop: 06/17/19 11:44 Miscellaneous Information (Consult Glycemic Management Pharmacy) 1 ea N/A UD P RN PRN Reason: Consult Stop: 06/17/19 19:09 Pantoprazole Sodium (Protonix) 40 mg PO DAILY [facility] Stop: 06/17/19 09:57 Last Admin: 05/20/19 08:11 Dose: 40 mg Documented by: Spironolactone (Aldactone) 25 mg PO QAM [facility] Stop: 06/18/19 09:14 Last Admin: 05/20/19 08:07 Dose: 25 mg Documented by: PG Care Time/CCT Total # of Minutes Spent Total Time Spent with Patient: Total time spent is greater than 50% in coordination of care (as documented) at patient's floor/unit and/or counseling patient: (1) LLL pneumonia Pneumonia type: due to methicillin-resistant Staphylococcus aureus (MRSA) Qualified Code(s): J15.212 - Pneumonia due to Methicillin resistant Staphylococcus aureus (2) COPD (chronic obstructive pulmonary disease) COPD type: COPD with acute exacerbation Qualified Code(s): J44.1 - Chronic obstructive pulmonary disease with (acute) exacerbation (3) Coronary atherosclerosis of cheesh-na coronary vessel [place] vs. transplanted heart: cheesh-na heart Associated angina: without angina Qualified Code(s): I25.10 - Atherosclerotic heart disease of cheesh-na coronary artery without angina pectoris (4) Diastolic CHF Heart failure chronicity: chronic Qualified Code(s): I50.32 - Chronic diastolic (congestive) heart failure (5) Cirrhosis of liver Hepatic cirrhosis type: other cirrhosis Qualified Code(s): K74.69 - Other cirrhosis of liver (6) DM type 2 (diabetes mellitus, type 2) Diabetes mellitus senior living insulin use: with senior living use Diabetes mellitus complication status: with hyperglycemia Qualified Code(s): E11.65 - Type 2 diabetes mellitus with hyperglycemia; Z79.4 - skilled nursing (current) use of insulin (7) Hypothyroidism Hypothyroidism type: acquired Qualified Code(s): E03.9 - Hypothyroidism, unspecified (8) Chest pain Chest pain type: unspecified Qualified Code(s): R07.9 - Chest pain, unspecified
[2019-05-20] MEDS: CARVEDILOL 3.125 MG TAB PO SCH ×2 (09:42→20:08)
[2019-05-20] MEDS: methylPREDNISolone 50 MG in SYRINGE 0 ML IV SCH ×2 (12:11→20:07)
[2019-05-20] MEDS ORDERED: Heparin IV Low Dose *NO* Bolus IV SCH (13:16)
[2019-05-20] MEDS ORDERED: AMIODARONE IV BOLUS / DRIP IV STA (13:19)
[2019-05-20] MEDS ORDERED: POTASSIUM CHLORIDE 10 MEQ TABCR PO ONE (13:30)
[2019-05-20] MEDS ORDERED: CARVEDILOL 3.125 MG TAB PO ONE (13:30)
[2019-05-20] MEDS ORDERED: AMIODARONE / D5W 150 MG/100 ML BAG IV ONE (13:30)
[2019-05-20] MEDS: AMIODARONE / D5W 360 MG/200 ML BAG IV SCH ×3 (13:35→21:53)
[2019-05-20] MEDS: Heparin Adult LOW DOSE Wt-Based Dextrose 5% 25,000 units/500 mL IV SCH (13:42)
--- NOTE | 2019-05-20 14:00 | Pharmacy Report ---
Pharmacy Glycemic Short Note 2 - Date of Service May 20, 2019 - Glycemic Short BSG Results (Last 24 hours): 05/19/19 05/19/19 05/19/19 13:08 14:00 15:09 Glucose POC Glucose 198 H 167 H 128 H 05/19/19 05/19/19 05/19/19 16:07 17:05 18:32 Glucose POC Glucose 113 H 129 H 144 H 05/19/19 05/19/19 05/19/19 19:45 21:52 23:13 Glucose POC Glucose 166 H 206 H 187 H 05/19/19 05/20/19 05/20/19 23:55 01:07 02:05 Glucose POC Glucose 170 H 196 H 208 H 05/20/19 05/20/19 05/20/19 03:15 04:03 04:05 Glucose 157 H POC Glucose 154 H 156 H 05/20/19 05/20/19 05/20/19 05:04 06:15 07:09 Glucose POC Glucose 155 H 155 H 175 H 05/20/19 05/20/19 05/20/19 09:08 10:58 12:13 Glucose POC Glucose 180 H 221 H 261 H 05/20/19 13:02 Glucose POC Glucose 237 H ASSESSMENT: * Steroids and recurrent bacteremia continue, ergo, insulin infsn will remain. She has been oscillating bt 7u/hr and 10 u/hr, daily insulin requirements: >240u. She is being made NPO at midnight. PLAN FOR INPATIENT GLYCEMIC CONTROL: * Basal insulin * Lantus sq BID 55 or 50 units, see MAR for further details. No need to decrease basal insulin with NPO status as her steroids continue. * Insulin gtt
[2019-05-20 14:04] LABS: INR 0.9 (0.9-1.1); Partial Thromboplastin Ratio 1.1; Partial Thromboplastin Time 28.7 Seconds (21.0-31.0); Prothrombin Time 9.7 Seconds (9.0-12.0)
[2019-05-20 14:09] LABS: BUN Creatinine Ratio 31.8 (10-20); Calcium 10.4 mg/dl (8.5-10.1); Est GFR (African American) 102.8; Est GFR (Non-African American) 88.7; Potassium 3.5 mmol/L (3.5-5.1)
[2019-05-20] MEDS ORDERED: Nursing to Pharmacy Communication ONE (14:57)
[2019-05-20] MEDS: INSULIN REGULAR 250 UNITS in SODIUM CHLORIDE 0.9% 247.5 ML IV SCH (16:04)
[2019-05-20] MEDS ORDERED: AMIODARONE / D5W 360 MG/200 ML BAG IV SCH (19:19)
[2019-05-20 20:18] LABS: Partial Thromboplastin Ratio 1.4; Partial Thromboplastin Time 37.8 Seconds (21.0-31.0)
[2019-05-20] MEDS ORDERED: HEPARIN IV BOLUS 4,500 UNITS in SYRINGE 0 ML IV ONE (20:55)
[2019-05-20] MEDS ORDERED: ENOXAPARIN INJ 60 MG/0.6 ML SYR SQ SCH (21:00)
[2019-05-21] MEDS: ALBUT/IPRATROP 3MG/0.5MG NEB 3 ML VIAL INH SCH ×6 (03:10→23:07)
[2019-05-21 03:12] LABS: Basophils # (auto) 0.01 K/uL (0-0.2); Basophils % (auto) 0.1 %; Hematocrit (blood only) 36.2 % (37-47); Hemoglobin 11.7 g/dL (12.0-16.0); Immature Granulocytes # (auto) 0.08 K/uL (0.00-0.02); Immature Granulocytes % (auto) 0.8 %; Lymphocytes # (auto) 0.45 K/uL (1.2-3.4); Lymphocytes % (auto) 4.5 %; Mean Corpuscular Hgb Conc 32.3 g/dL (32-36); Mean Corpuscular Volume 95.8 fL (80-100); Mean Platelet Volume 9.7 fL (7.4-10.4); Monocytes # (auto) 0.53 K/uL (0.11-0.59); Monocytes % (auto) 5.3 %; Neutrophils # (auto) 8.93 K/uL (1.4-6.5); Neutrophils % (auto) 89.3 %; Platelet Count 174 K/uL (130-400); RDW Coefficient of Variation 13.3 % (11.5-14.5); RDW Standard Deviation 46.5 fL (36.4-46.3); Red Blood Count 3.78 M/uL (4.2-5.4)
[2019-05-21] MEDS: methylPREDNISolone 50 MG in SYRINGE 0 ML IV SCH ×2 (03:12→11:42)
[2019-05-21 03:31] LABS: BUN Creatinine Ratio 37.5 (10-20); Calcium 9.7 mg/dl (8.5-10.1); Creatinine Clr Calc Pharmacy 139.5 ml/min; Est GFR (Non-African American) 99.2; Magnesium 2.2 mg/dl (1.8-2.4); Potassium 3.3 mmol/L (3.5-5.1)
[2019-05-21 03:35] LABS: Partial Thromboplastin Ratio 2.1
[2019-05-21 03:40] LABS: Partial Thromboplastin Time 56.3 Seconds (21.0-31.0)
[2019-05-21] MEDS ORDERED: POTASSIUM CHLORIDE 20 MEQ TABCR PO STA (03:50)
[2019-05-21] MEDS: CEFTAROLINE FOSAMIL ACETATE 600 MG in SODIUM CHLORIDE 0.9% 250 ML IV SCH ×3 (05:12→20:28)
[2019-05-21] MEDS: LEVOTHYROXINE SODIUM 200 MCG TABLET PO SCH (05:13)
[2019-05-21] MEDS: AMIODARONE / D5W 360 MG/200 ML BAG IV SCH (07:20)
[2019-05-21] MEDS: SPIRONOLACTONE 25 MG TAB PO SCH (07:59)
[2019-05-21] MEDS: CARVEDILOL 3.125 MG TAB PO SCH ×2 (07:59→20:28)
[2019-05-21] MEDS: BUMETANIDE 1 MG TAB PO SCH (07:59)
[2019-05-21] MEDS: ASPIRIN 81 MG ECTAB PO SCH (07:59)
[2019-05-21] MEDS: ATORVASTATIN 40 MG TAB PO SCH (07:59)
[2019-05-21] MEDS: CLOPIDOGREL BISULFATE 75 MG TAB PO SCH (08:00)
[2019-05-21] MEDS: GABAPENTIN 100 MG CAP PO SCH ×3 (08:00→20:28)
[2019-05-21] MEDS: PANTOprazole 40 MG TAB PO SCH (08:00)
[2019-05-21] MEDS: INSULIN GLARGINE SOLOSTAR 100 UNITS/ML 3 ML PEN SC SCH ×2 (08:07→20:30)
[2019-05-21] MEDS: INSULIN ASPART 100 UNITS/ML 3 ML PEN SC SCH ×4 (08:08→20:30)
[2019-05-21] MEDS: FAMOTIDINE 20 MG in SYRINGE 3 ML IV SCH (08:09)
[2019-05-21] MEDS ORDERED: VANCOMYCIN CONSULT ACTIVE PRN (08:27)
[2019-05-21] MEDS ORDERED: VANCOMYCIN HCL 2,750 MG in SODIUM CHLORIDE 0.9% 500 ML IV STA (08:29)
--- NOTE | 2019-05-21 08:45 | XRay Report ---
XR chest 1V portable CLINICAL HISTORY: PNA COMPARISON STUDY: Chest radiograph and chest CT May 18, 2019. FINDINGS: Moderate cardiomegaly is again noted. There is no evidence for pulmonary edema. There is no pneumothorax. Small left and trace right pleural effusions are noted. Left basilar consolidation is unchanged. There is mild right lower lung opacity. IMPRESSION: 1. Persistent left basilar consolidation suggestive of pneumonia. Small left pleural effusion. 2. Mild right lower lung opacity which is unchanged. 3. Cardiomegaly without evidence for pulmonary edema. Electronically signed by: Ruben Ahn M.D. 05/21/2019 8:44 AM
[2019-05-21] MEDS: Heparin Adult LOW DOSE Wt-Based Dextrose 5% 25,000 units/500 mL IV SCH (10:10)
--- NOTE | 2019-05-21 11:39 | Hospitalist Progress Note ---
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 she had a MRSA furuncle on her left neck that required I/D during previous admission. now with evidence of endocarditis repeat blood cultures on 05/19 and 05/20 showing growth with gram positive cocci continue Ceftaroline per ID, add Vancomycin today (3) Severe sepsis: 2nd to LLL pneumonia and MRSA bacteremia/septicemia. See "MRSA bacteremia" above. Sepsis resolved, vitals stable, WBC trending down to 10k, no fever (4) LLL pneumonia: As seen on CT chest. High likelihood this is due to MRSA. Cont abx (ceftaroline). Day #4 of therapy. Supportive care, BIPAP as needed. ultimately would need 7 days of abx but will have more than enough coverage in treating bacteremia Vancomycin added on 05/21 more for the persistent positive blood cultures (5) Acute on chronic respiratory failure with hypoxia and hypercapnia: Acute component 2nd to LLL pneumonia and COPD flare. Chronic - COPD, GEETHA, OHS, etc. Acute component much improved Agree with weaning of steroids. Abx for LLL pneumonia per ID/critical care. (6) Metabolic encephalopathy: Due to sepsis/pneumonia - resolved. Ammonia level was normal. VBGs with hypercarbia but this has slowly improved. Avoid hyperoxia; keep sats low 90s. Avoid narcotics. Keep euglycemic. (7) COPD (chronic obstructive pulmonary disease): with exacerbation. continue on Solu Medrol, wean per ICU Nebs q4h. BIPAP and NC O2. Supportive care. (8) Coronary atherosclerosis of [place] coronary vessel: Resumed asa, plavix, statin. Troponins negative. EKG without ischemic changes. Chest pain is musculoskeletal - reproducible on exam. Consider k-pad. (9) Diastolic CHF: Was volume contracted clinically at admission, then received fluid resuscitation for severe sepsis. May have developed mild fluid overload late yesterday. Diuretics resumed, Bumex and Diamox (10) Tobacco use disorder: Offer nicoderm patch if truly still smoking at SNF. (11) Cirrhosis of liver: 2nd to ABDI and/or autoimmune causes. Ammonia level was normal. INR stable. LFTs stable. (12) DM type 2 (diabetes mellitus, type 2): Appreciate Pharmacy glycemic assistance. Now on insulin infusion due to hyperglycemia from steroids. (13) Hypothyroidism: TSH within the last 2 months wnl. Cont synthroid. (14) Hyponatremia: Due to volume contraction at admission. Resolved, Na 136 today (15) Bullous pemphigoid: Controlled. No active bullae at this time. On chronic prednisone 30mg/day and niacinamide 500mg TID at home Giving stress dose steroids for sepsis and COPD exacerbation, Solu Medrol 50mg q8 (16) Chest pain: Musculoskeletal. Reproducible on exam; EKG w/o ischemic changes; troponins negative. (17) Morbid obesity with BMI of 50.0-59.9, adult: BMI 55 (18) Hypokalemia: low at 3.3, will replace and repeat tomorrow (19) DVT prophylaxis: lovenox 40mg daily told patient she would NOT be a candidate to return to her actual home in [place] UNLESS she had 20/06 caregivers. daughter stated that would never be possible. social work assistance appreciated. would need SNF again at d/c. patient does NOT want to go to [facility], we can discuss with CM tomorrow about alternative SNF Subjective patient feeling okay today, no major changes over night reviewed cultures, persistent positive blood cultures with MRSA discussed with Dr. Wayne today, was scheduled for KIA but due to her being high risk he repeated at TTE at the bedside the patient has evidence of a vegetation, will forego KIA for time being reviewed other labs, WBC down to 10k, Cr is stable discussed with pharmacy in the ICU, due to persistent blood cultures, will add Vancomycin to the Ceftaroline want to cover the lungs as well as blood intermission coordinator the best option would likely be Daptomycin but this would not cover the lungs CXR today shows persistent left lower lobe infiltrate patient says her breathing is stable, mild cough no chest pain or pressure she is hungry due to being NPO Review of Systems Review of Systems: All systems reviewed & are unremarkable except as noted in HPI & below Constitutional: + fatigue and + weakness; no fever, no chills and no sweats Respiratory: + cough and + dyspnea on exertion; no dyspnea Cardiovascular: + edema; no chest pain Gastrointestinal: no abdominal pain, no nausea, no vomiting, no constipation and no diarrhea/loose stools Physical Exam Constitutional: WD/WN, vitals as above + obese Eyes: PERRL, conjunctivae normal, anicteric sclerae ENMT: external ear and nose normal, oropharynx normal Neck: trachea midline, no thyromegaly Respiratory: normal respiratory effort, lungs clear to auscultation Cardiovascular: RRR, no murmur, no edema Gastrointestinal (Abdomen): normal bowel sounds, soft, nontender, no hepatosplenomegaly Musculoskeletal: no cyanosis or clubbing, extremities motor strength 5/5 Spine: + limited thoraco-lumbar ROM (due to pain) Skin: + rash (numerous dry rashes, erythematous), + dry skin and + nails dystrophic Neurologic: patellar DTR's 2+ bilat, sensation intact and PERRL, EOMI, accommodation nl, no face palsy, no dysarthria Psychiatric: Orientation: alert and oriented x 3 Affect: + depressed affect Lymphatic: no cervical or axillary lymphadenopathy Results & Data Vital Signs (Past 12 Hours) Vital Signs Temp Pulse Pulse Pulse Resp BP BP 05/21/19 08:01 51 L 24 148/61 H 05/21/19 08:00 36.6 C 51 L 22 05/21/19 07:11 55 L 24 05/21/19 07:01 53 L 26 H 153/66 H 05/21/19 07:00 53 L 26 H 05/21/19 06:00 60 19 162/74 H 05/21/19 05:14 54 L 20 05/21/19 04:00 36.9 C 56 L 22 137/64 05/21/19 03:12 51 L 20 05/21/19 03:10 51 L 20 05/21/19 02:00 56 L 22 131/49 L 05/21/19 00:00 36.7 C 56 L 22 113/58 L Pulse Ox 05/21/19 08:01 96 05/21/19 08:00 96 05/21/19 07:11 95 05/21/19 07:01 96 05/21/19 07:00 96 05/21/19 06:00 97 05/21/19 05:14 94 05/21/19 04:00 94 05/21/19 03:12 95 05/21/19 03:10 95 05/21/19 02:00 96 05/21/19 00:00 94 Laboratory Results Laboratory Results - last 24 hr 05/20/19 05/20/19 05/20/19 12:13 13:02 13:38 WBC RBC Hgb Hct MCV MCH MCHC RDW Std Deviation RDW Coeff of Ministerio Plt Count MPV Immature Gran % (Auto) Neut % (Auto) Lymph % (Auto) [place] % (Auto) Eos % (Auto) Baso % (Auto) Immature Gran # (Auto) Neut # (Auto) Lymph # (Auto) [place] # (Auto) Eos # (Auto) Baso # (Auto) PT INR APTT PTT Ratio Sodium 136 Potassium 3.5 Chloride 97 L Carbon Dioxide 32 Anion Gap 7.0 BUN 23 H Creatinine 0.74 Est Cr Clr Drug Dosing 115.0 Est GFR ( Amer) 102.8 Est GFR (Non-Af Amer) 88.7 BUN/Creatinine Ratio 31.8 H Glucose 249 H POC Glucose 261 H 237 H Calcium 10.4 H Magnesium 05/20/19 05/20/19 05/20/19 13:38 14:02 15:12 WBC RBC Hgb Hct MCV MCH MCHC RDW Std Deviation RDW Coeff of Ministerio Plt Count MPV Immature Gran % (Auto) Neut % (Auto) Lymph % (Auto) [place] % (Auto) Eos % (Auto) Baso % (Auto) Immature Gran # (Auto) Neut # (Auto) Lymph # (Auto) [place] # (Auto) Eos # (Auto) Baso # (Auto) PT 9.7 INR 0.9 APTT 28.7 PTT Ratio 1.1 Sodium Potassium Chloride Carbon Dioxide Anion Gap BUN Creatinine Est Cr Clr Drug Dosing Est GFR ( Amer) Est GFR (Non-Af Amer) BUN/Creatinine Ratio Glucose POC Glucose 282 H 243 H Calcium Magnesium 05/20/19 05/20/19 05/20/19 16:01 16:59 18:03 WBC RBC Hgb Hct MCV MCH MCHC RDW Std Deviation RDW Coeff of Ministerio Plt Count MPV Immature Gran % (Auto) Neut % (Auto) Lymph % (Auto) [place] % (Auto) Eos % (Auto) Baso % (Auto) Immature Gran # (Auto) Neut # (Auto) Lymph # (Auto) [place] # (Auto) Eos # (Auto) Baso # (Auto) PT INR APTT PTT Ratio Sodium Potassium Chloride Carbon Dioxide Anion Gap BUN Creatinine Est Cr Clr Drug Dosing Est GFR ( Amer) Est GFR (Non-Af Amer) BUN/Creatinine Ratio Glucose POC Glucose 236 H 174 H 199 H Calcium Magnesium 05/20/19 05/20/19 05/20/19 18:59 19:55 19:56 WBC RBC Hgb Hct MCV MCH MCHC RDW Std Deviation RDW Coeff of Ministerio Plt Count MPV Immature Gran % (Auto) Neut % (Auto) Lymph % (Auto) [place] % (Auto) Eos % (Auto) Baso % (Auto) Immature Gran # (Auto) Neut # (Auto) Lymph # (Auto) [place] # (Auto) Eos # (Auto) Baso # (Auto) PT INR APTT 37.8 H PTT Ratio 1.4 Sodium Potassium Chloride Carbon Dioxide Anion Gap BUN Creatinine Est Cr Clr Drug Dosing Est GFR ( Amer) Est GFR (Non-Af Amer) BUN/Creatinine Ratio Glucose POC Glucose 206 H 187 H Calcium Magnesium 05/20/19 05/20/19 05/20/19 20:59 22:09 23:06 WBC RBC Hgb Hct MCV MCH MCHC RDW Std Deviation RDW Coeff of Ministerio Plt Count MPV Immature Gran % (Auto) Neut % (Auto) Lymph % (Auto) [place] % (Auto) Eos % (Auto) Baso % (Auto) Immature Gran # (Auto) Neut # (Auto) Lymph # (Auto) [place] # (Auto) Eos # (Auto) Baso # (Auto) PT INR APTT PTT Ratio Sodium Potassium Chloride Carbon Dioxide Anion Gap BUN Creatinine Est Cr Clr Drug Dosing Est GFR ( Amer) Est GFR (Non-Af Amer) BUN/Creatinine Ratio Glucose POC Glucose 220 H 193 H 187 H Calcium Magnesium 05/21/19 05/21/19 05/21/19 00:02 00:56 02:17 WBC RBC Hgb Hct MCV MCH MCHC RDW Std Deviation RDW Coeff of Ministerio Plt Count MPV Immature Gran % (Auto) Neut % (Auto) Lymph % (Auto) [place] % (Auto) Eos % (Auto) Baso % (Auto) Immature Gran # (Auto) Neut # (Auto) Lymph # (Auto) [place] # (Auto) Eos # (Auto) Baso # (Auto) PT INR APTT PTT Ratio Sodium Potassium Chloride Carbon Dioxide Anion Gap BUN Creatinine Est Cr Clr Drug Dosing Est GFR ( Amer) Est GFR (Non-Af Amer) BUN/Creatinine Ratio Glucose POC Glucose 169 H 154 H 126 H Calcium Magnesium 05/21/19 05/21/19 05/21/19 02:47 02:47 02:47 WBC 10.00 RBC 3.78 L Hgb 11.7 L Hct 36.2 L MCV 95.8 MCH 31.0 MCHC 32.3 RDW Std Deviation 46.5 H RDW Coeff of Ministerio 13.3 Plt Count 174 MPV 9.7 Immature Gran % (Auto) 0.8 Neut % (Auto) 89.3 Lymph % (Auto) 4.5 [place] % (Auto) 5.3 Eos % (Auto) 0.0 Baso % (Auto) 0.1 Immature Gran # (Auto) 0.08 H Neut # (Auto) 8.93 H Lymph # (Auto) 0.45 L [place] # (Auto) 0.53 Eos # (Auto) 0.00 Baso # (Auto) 0.01 PT INR APTT 56.3 H* PTT Ratio 2.1 Sodium 136 Potassium 3.3 L Chloride 99 Carbon Dioxide 35 H Anion Gap 2.0 L BUN 23 H Creatinine 0.61 Est Cr Clr Drug Dosing 139.5 Est GFR ( Amer) 115.0 Est GFR (Non-Af Amer) 99.2 BUN/Creatinine Ratio 37.5 H Glucose 138 H POC Glucose Calcium 9.7 Magnesium 2.2 05/21/19 05/21/19 03:16 04:02 WBC RBC Hgb Hct MCV MCH MCHC RDW Std Deviation RDW Coeff of Ministerio Plt Count MPV Immature Gran % (Auto) Neut % (Auto) Lymph % (Auto) [place] % (Auto) Eos % (Auto) Baso % (Auto) Immature Gran # (Auto) Neut # (Auto) Lymph # (Auto) [place] # (Auto) Eos # (Auto) Baso # (Auto) PT INR APTT PTT Ratio Sodium Potassium Chloride Carbon Dioxide Anion Gap BUN Creatinine Est Cr Clr Drug Dosing Est GFR ( Amer) Est GFR (Non-Af Amer) BUN/Creatinine Ratio Glucose POC Glucose 129 H 123 H Calcium Magnesium Diagnostic Findings XR chest 1V portable IMPRESSION: 1. Persistent left basilar consolidation suggestive of pneumonia. Small left pleural effusion. 2. Mild right lower lung opacity which is unchanged. 3. Cardiomegaly without evidence for pulmonary edema. Medications Administered Current Inpatient Medications Albuterol (Duoneb) 3 ml INH Q4R [facility] Stop: 06/17/19 11:59 Last Admin: 05/21/19 11:07 Dose: 3 ml Documented by: Aspirin (Ecotrin Ectab) 81 mg PO DAILY [facility] Stop: 06/17/19 09:57 Last Admin: 05/21/19 07:59 Dose: 81 mg Documented by: Atorvastatin Calcium (Lipitor) 40 mg PO DAILY [facility] Stop: 06/17/19 09:57 Last Admin: 05/21/19 07:59 Dose: 40 mg Documented by: Betamethasone Dipropion Augmented (Diprolene 0.05%) 1 appln TOP Q8 PRN PRN Reason: bullous pemphigoid eruptions Last Admin: 05/18/19 10:46 Dose: 1 appln Documented by: Bumetanide (Bumex) 2 mg PO QAM [place] Stop: 06/18/19 09:14 Last Admin: 05/21/19 07:59 Dose: 2 mg Documented by: Carvedilol (Coreg) 3.125 mg PO BID [facility] Stop: 06/19/19 08:59 Last Admin: 05/21/19 07:59 Dose: Not Given Documented by: Clopidogrel Bisulfate (Plavix) 75 mg PO DAILY [facility] Stop: 06/17/19 09:57 Last Admin: 05/21/19 08:00 Dose: 75 mg Documented by: Dextrose (Dextrose 50%) 25 - 50 ml IV UD PRN; Protocol PRN Reason: Hypoglycemia Protocol Stop: 06/17/19 11:44 Gabapentin (Neurontin) 100 mg PO TID [facility] Stop: 06/17/19 09:57 Last Admin: 05/21/19 08:00 Dose: 100 mg Documented by: Glucagon (Glucagen) 1 mg SQ UD PRN; Protocol PRN Reason: Hypoglycemia Protocol Stop: 06/17/19 11:44 Glucose (Glucose 40%) 15 - 30 gm PO UD PRN; Protocol PRN Reason: Hypoglycemia Protocol Stop: 06/17/19 11:44 Glucose (Dex4 Glucose) 4 - 8 tabs PO UD PRN; Protocol PRN Reason: Hypoglycemia Protocol Stop: 06/17/19 11:44 Famotidine 20 mg/ Syringe 5 mls @ 2.5 mls/min IV Q12 [facility] Stop: 06/17/19 09:57 Last Admin: 05/21/19 08:09 Dose: 2.5 mls/min Documented by: Ceftaroline Fosamil 600 mg/ (Sodium Chloride) 270 mls @ 270 mls/hr IV Q8H [facility] Stop: 05/25/19 12:59 Last Infusion: 05/21/19 06:17 Dose: Infused Documented by: Insulin Human Regular 250 (units/ Sodium Chloride) 250 mls @ 0 mls/hr IV .Q0M [facility]; Protocol Stop: 06/17/19 18:59 Last Titration: 05/21/19 10:30 Dose: 4 units/hr, 4 mls/hr Documented by: Methylprednisolone 50 mg/ (Syringe) 0.8 mls @ 1.5 mls/min IV Q8H [place] Stop: 06/19/19 11:59 Last Admin: 05/21/19 03:12 Dose: 1.5 mls/min Documented by: Heparin Sodium/Dextrose (Heparin Sodium/Dextrose) 25,000 units in 500 mls @ 24 mls/hr IV .[id number] [facility]; Protocol Stop: 06/19/19 13:44 Last Admin: 05/21/19 10:10 Dose: 1,200 units/hr, 24 mls/hr Documented by: Amiodarone HCl/Dextrose (Nexterone / D5w) 360 mg in 200 mls @ 16.667 mls/hr IV .Q12H [place] Stop: 06/19/19 21:29 Last Admin: 05/21/19 07:20 Dose: 0.5 mg/min, 16.7 mls/hr Documented by: Insulin [facility]art ([facility]) [facility] Stop: 06/17/19 20:59 Last Admin: 05/21/19 08:08 Dose: Not Given Documented by: Insulin Glargine (Lantus Solostar Pen) 0 units SC BID [facility]; Protocol Stop: 06/18/19 20:59 Last Admin: 05/21/19 08:07 Dose: 40 units Documented by: Levothyroxine Sodium (Synthroid) 200 mcg PO DAILYBB [facility] Stop: 06/17/19 09:57 Last Admin: 05/21/19 05:13 Dose: 200 mcg Documented by: Miscellaneous (Carbohydrates For Hypoglycemia) 15 - 30 gm PO UD PRN PRN Reason: Hypoglycemia Treatment Stop: 06/17/19 11:44 Miscellaneous Information (Consult Glycemic Management Pharmacy) 1 ea N/A UD PRN PRN Reason: Consult Stop: 06/17/19 19:09 Miscellaneous Information (Consult) 1 ea N/A UD PRN PRN Reason: Consult Stop: 06/20/19 08:26 Pantoprazole Sodium (Protonix) 40 mg PO DAILY [place] Stop: 06/17/19 09:57 Last Admin: 05/21/19 08:00 Dose: 40 mg Documented by: Spironolactone (Aldactone) 25 mg PO QAM [facility] Stop: 06/18/19 09:14 Last Admin: 05/21/19 07:59 Dose: 25 mg Documented by: PG Care Time/CCT Total # of Minutes Spent Total Time Spent with Patient: Total time spent is greater than 50% in coordination of care (as documented) at patient's floor/unit and/or counseling patient: (1) LLL pneumonia Pneumonia type: due to unspecified organism Qualified Code(s): J18.1 - Lobar pneumonia, unspecified organism (2) COPD (chronic obstructive pulmonary disease) COPD type: COPD with acute exacerbation Qualified Code(s): J44.1 - Chronic obstructive pulmonary disease with (acute) exacerbation (3) Coronary atherosclerosis of [place] coronary vessel [place] vs. transplanted heart: [place] heart Associated angina: without angina Qualified Code(s): I25.10 - Atherosclerotic heart disease of [place] coronary artery without angina pectoris (4) Diastolic CHF Heart failure chronicity: chronic Qualified Code(s): I50.32 - Chronic diastolic (congestive) heart failure (5) Cirrhosis of liver Hepatic cirrhosis type: other cirrhosis Qualified Code(s): K74.69 - Other cirrhosis of liver (6) DM type 2 (diabetes mellitus, type 2) Diabetes mellitus mcfp insulin use: with mcfp use Diabetes mellitus complication status: with hyperglycemia Qualified Code(s): E11.65 - Type 2 diabetes mellitus with hyperglycemia; Z79.4 - longterm (current) use of insulin (7) Hypothyroidism Hypothyroidism type: acquired Qualified Code(s): E03.9 - Hypothyroidism, unspecified (8) Chest pain Chest pain type: unspecified Qualified Code(s): R07.9 - Chest pain, unspecified
[2019-05-21] MEDS: INSULIN REGULAR 250 UNITS in SODIUM CHLORIDE 0.9% 247.5 ML IV SCH ×2 (13:50→20:29)
--- NOTE | 2019-05-21 14:55 | Infectious Disease Progress Nt ---
Date of Service May 21, 2019 Assessment & Plan (1) MRSA bacteremia: Patient with MRSA endocarditis with pneumonia. Will await follow-up blood cultures after addition of vancomycin, may want to use daptomycin instead as there is some data about combination of daptomycin and ceftaroline for difficult to treat MRSA bacteremias. Will need 6 weeks of IV antibiotics following negative blood cultures. Will follow. (2) LLL pneumonia: Subjective Patient seen in follow-up for MRSA bacteremia and pneumonia. Had echocardiogram which showed probable vegetation consistent with endocarditis. Blood cultures remain positive so far. Vancomycin added. Today feeling about the same, no major problems overnight. Review of Systems Review of Systems: All systems reviewed & are unremarkable except as noted in HPI & below Physical Exam Constitutional: WD/WN, vitals as above + morbidly obese and comfortable; no acute distress Eyes: PERRL, conjunctivae normal, anicteric sclerae ENMT: external ear and nose normal, oropharynx normal Neck: trachea midline, no thyromegaly neck nontender Respiratory: normal percussion; no respiratory distress and does not use accessory muscles Auscultation: + rales (Left-sided) Cardiovascular: Rate/Rhythm: regular rate and regular rhythm Heart Sounds: normal S1 and normal S2; no gallop, no murmur and no cardiac rub Vessels: normal peripheral pulses; no JVD Gastrointestinal (Abdomen): normal bowel sounds, soft, nontender, no hepatosplenomegaly Musculoskeletal: no cyanosis or clubbing, extremities motor strength 5/5 Spine: thoracic spine normal to inspection and lumbar spine normal to inspection; no cervical spinal tenderness Skin: no rashes, warm and dry normal turgor; no lesions Neurologic: patellar DTR's 2+ bilat, sensation intact no focal motor deficits Psychiatric: A+Ox3, euthymic affect Orientation: cooperative Lymphatic: no cervical or axillary lymphadenopathy no inguinal lymphadenopathy Results & Data Vital Signs (Past 12 Hours) Vital Signs Temp Pulse Pulse Pulse Resp BP BP 05/21/19 14:01 58 L 19 125/64 05/21/19 14:00 55 L 21 05/21/19 13:20 66 19 145/64 H 05/21/19 13:00 54 L 19 05/21/19 12:00 36.6 C 60 19 05/21/19 11:07 55 L 20 05/21/19 11:01 55 L 23 161/72 H 05/21/19 11:00 53 L 23 05/21/19 10:45 56 L 24 163/72 H 05/21/19 10:00 52 L 16 05/21/19 09:01 51 L 20 148/71 H 05/21/19 09:00 51 L 21 05/21/19 08:01 51 L 24 148/61 H 05/21/19 08:00 36.6 C 51 L 22 05/21/19 07:11 55 L 24 05/21/19 07:01 53 L 26 H 153/66 H 05/21/19 07:00 53 L 26 H 05/21/19 06:00 60 19 162/74 H 05/21/19 05:14 54 L 20 05/21/19 04:00 36.9 C 56 L 22 137/64 05/21/19 03:12 51 L 20 05/21/19 03:10 51 L 20 Pulse Ox 05/21/19 14:01 92 05/21/19 14:00 92 05/21/19 13:20 89 L 05/21/19 13:00 91 05/21/19 12:00 88 L 05/21/19 11:07 95 05/21/19 11:01 94 05/21/19 11:00 95 05/21/19 10:45 96 05/21/19 10:00 94 05/21/19 09:01 96 05/21/19 09:00 96 05/21/19 08:01 96 05/21/19 08:00 96 05/21/19 07:11 95 05/21/19 07:01 96 05/21/19 07:00 96 05/21/19 06:00 97 05/21/19 05:14 94 05/21/19 04:00 94 05/21/19 03:12 95 05/21/19 03:10 95 Laboratory Results Short CBC 05/21/19 Range/Units 02:47 WBC 10.00 (4.8-10.8) K/uL Hgb 11.7 L (12.0-16.0) g/dL Hct 36.2 L (37-47) % Plt Count 174 (130-400) K/uL BMP 05/21/19 02:47 Sodium 136 Potassium 3.3 L Chloride 99 Carbon Dioxide 35 H BUN 23 H Creatinine 0.61 Glucose 138 H Calcium 9.7 Diagnostic Findings Microbiology 05/19/19 08:16 Blood Aerobic Blood Culture - Preliminary Staphylococcus aureus 05/19/19 08:16 Blood Anaerobic Blood Culture - Preliminary No growth in Anaerobic bottle after 48 hours. 05/19/19 08:12 Blood Aerobic Blood Culture - Preliminary Staphylococcus aureus 05/19/19 08:12 Blood Anaerobic Blood Culture - Preliminary No growth in Anaerobic bottle after 48 hours. 05/20/19 09:09 Blood Aerobic Blood Culture - Preliminary Gram positive cocci clusters 05/20/19 09:09 Blood Anaerobic Blood Culture - Preliminary No growth in Anaerobic bottle after 24 hours. 05/20/19 09:01 Blood Aerobic Blood Culture - Preliminary Gram positive cocci clusters 05/20/19 09:01 Blood Anaerobic Blood Culture - Preliminary No growth in Anaerobic bottle after 24 hours. 05/18/19 04:35 Blood Aerobic Blood Culture - Final Staph aureus MRSA 05/18/19 04:35 Blood Anaerobic Blood Culture - Final Staph aureus MRSA 05/18/19 04:48 Blood Aerobic Blood Culture - Final Staph aureus MRSA 05/18/19 04:48 Blood Anaerobic Blood Culture - Final Staph aureus MRSA XR chest 1V portable CLINICAL HISTORY: PNA COMPARISON STUDY: Chest radiograph and chest CT May 18, 2019. FINDINGS: Moderate cardiomegaly is again noted. There is no evidence for pulmonary edema. There is no pneumothorax. Small left and trace right pleural effusions are noted. Left basilar consolidation is unchanged. There is mild right lower lung opacity. IMPRESSION: 1. Persistent left basilar consolidation suggestive of pneumonia. Small left pleural effusion. 2. Mild right lower lung opacity which is unchanged. 3. Cardiomegaly without evidence for pulmonary edema. (1) LLL pneumonia Pneumonia type: due to unspecified organism Qualified Code(s): J18.1 - Lobar pneumonia, unspecified organism
--- NOTE | 2019-05-21 15:19 | Critical Care Progress Note ---
Date of Service May 21, 2019 Assessment & Plan (1) Acute endocarditis: Impression: 1. 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 2. Sepsis with MRSA bacteremia. 3. Recent neck abscess status post IND. 4. Left lower lobe pneumonia. 5. Morbid obesity with obstructive sleep apnea. 6. COPD, chronic, not in exacerbation. 7. New onset A. fib, converted to normal sinus rhythm on amiodarone. Plan: 1. continue with ceftaroline and add vancomycin for MRSA endocarditis. 2. Appreciate pharmacy input in that regard, patient will continue on this regimen for 7 days then changed to daptomycin. 3. I will obtain MRI of the neck area to evaluate for the soft tissue involvement. Patient continued to have minimal pain in the neck area and to rule out cervical ossea myelitis. 4. Appreciate Dr. Wayne input from cardiology, diagnosis confirmed with vegetation on the aortic valve. 5. Change steroids to 30 mg p.o. daily of prednisone as she has been taking it for pemphigoid. 6. Continue DVT and GI prophylaxis. 7. Change amiodarone to p.o. 400 mg p.o. twice daily. If there is no recurrence of A. fib, I may discontinue it. 8. Resume oral intake. 9. Bronchodilators. 10. CPAP nocturnally. 11. Glucose control. 12. Core measures for the ICU has been met. 13. Hopefully transfer out of the ICU in a.m. Thank you, case discussed with the staff on rounds in details, critical care time spent with the patient was 45 minutes. Subjective No events occurred overnight, the patient continues to have minimal pain mainly in her neck area extending to her left side of the neck. She denies any shortness of breath, no cough no sputum production, no abdominal pain, no increased swelling in her lower extremities. The rest of her review of system otherwise was unremarkable. Review of Systems Review of Systems: 14 systems has been reviewed, were unremarkable. Except for the above. Physical Exam Physical Exam: The patient is bradycardic but normal sinus rhythm, blood pressure and O2 saturation has been maintained, S1-S2 regular rate and rhythm, distant breath sounds, minimal tenderness in the left side of the neck and in the back as well, morbid obesity, abdomen is benign, edema in the periphery noted. Neurologically she is nonfocal and no weakness in the upper extremities. Results & Data Vital Signs (Past 12 Hours) Vital Signs Temp Pulse Pulse Resp BP BP Pulse Ox 05/21/19 14:01 58 L 19 125/64 92 05/21/19 14:00 55 L 21 92 05/21/19 13:20 66 19 145/64 H 89 L 05/21/19 13:00 54 L 19 91 05/21/19 12:00 36.6 C 60 19 88 L 05/21/19 11:07 55 L 20 95 05/21/19 11:01 55 L 23 161/72 H 94 05/21/19 11:00 53 L 23 95 05/21/19 10:45 56 L 24 163/72 H 96 05/21/19 10:00 52 L 16 94 05/21/19 09:01 51 L 20 148/71 H 96 05/21/19 09:00 51 L 21 96 05/21/19 08:01 51 L 24 148/61 H 96 05/21/19 08:00 36.6 C 51 L 22 96 05/21/19 07:11 55 L 24 95 05/21/19 07:01 53 L 26 H 153/66 H 96 05/21/19 07:00 53 L 26 H 96 05/21/19 06:00 60 19 162/74 H 97 05/21/19 05:14 54 L 20 94 05/21/19 04:00 36.9 C 56 L 22 137/64 94 Laboratory Results Labs were reviewed showing resolution of leukocytosis, chemistry with slightly low potassium be repleted. No hyperglycemia. Diagnostic Findings Echocardiogram was noted for normal ejection fraction, the vegetation was noted at the coronary cusp of the aortic valve. PG Care Time/CCT Critical Care Time: Yes Total Critical Care Time: 45
[2019-05-21] MEDS: predniSONE 10 MG TABLET PO SCH (15:27)
[2019-05-21] MEDS: VANCOMYCIN HCL 2,000 MG in SODIUM CHLORIDE 0.9% 500 ML IV SCH (15:52)
--- NOTE | 2019-05-21 16:05 | Pharmacy Report ---
Pharmacy Glycemic Short Note 2 - Date of Service May 21, 2019 - Glycemic Short BSG Results (Last 24 hours): 05/20/19 05/20/19 05/20/19 15:12 16:01 16:59 Glucose POC Glucose 243 H 236 H 174 H 05/20/19 05/20/19 05/20/19 18:03 18:59 19:55 Glucose POC Glucose 199 H 206 H 187 H 05/20/19 05/20/19 05/20/19 20:59 22:09 23:06 Glucose POC Glucose 220 H 193 H 187 H 05/21/19 05/21/19 05/21/19 00:02 00:56 02:17 Glucose POC Glucose 169 H 154 H 126 H 05/21/19 05/21/19 05/21/19 02:47 03:16 04:02 Glucose 138 H POC Glucose 129 H 123 H 05/21/19 05/21/19 05/21/19 05:55 06:54 08:03 Glucose POC Glucose 102 H 98 82 05/21/19 05/21/19 05/21/19 08:24 08:41 09:33 Glucose POC Glucose 97 108 H 125 H 05/21/19 05/21/19 05/21/19 10:37 11:15 13:21 Glucose POC Glucose 117 H 125 H 149 H Outpatient Anti-diabetic Regimen: * Insulin glargine 55 units SC BID * Insulin lispro 30 units SC AC * A1c = 7.8 % on 05/19/19 The patient is currently receiving: * Basal insulin: Lantus 50-55 units every 12 hours * Prandial insulin: Per insulin drip, but carb ratio of 1 unit per 5 grams CHO consumed (maximum drip will allow) has been used most recently * Insulin drip @ 10 units/hr this AM Risk Factors for Insulin Resistance: * Steroids: methylprednisolone 50 mg IV q8h tapered to home dose of prednisone 30 mg po daily starting this afternoon * Infection: Persistent MRSA bacteremia 2nd endocarditis and also possible HAP * Recent Surgery: KIA planned for today * Diet: NPO this AM, now T2DM ASSESSMENT: * Steroids are tapering * Still unclear what insulin requirements will be and therefore drip is to continue for now. * Can likely address transitioning off drip tomorrow AM. Before that time, suggested criteria for insulin drip transition as follows: * BSG in goal range x2 consecutive checks * Drip rate less than 1 unit/hr PLAN FOR INPATIENT GLYCEMIC CONTROL: * Basal insulin: Lantus sq BID as follows * 50 units for insulin drip less than 2 units/hr * 60 units for insulin drip rate 2 units/hr or greater * Insulin gtt, now running at 4 units/hr this afternoon * Pre-select CHO ratio of 4 g CHO/unit (as insulin drip calculator maxes out at 5 g CHO/unit)
--- NOTE | 2019-05-21 16:23 | Pharmacy Report ---
Pharmacy Abx Dose Short Note - Date of Service May 21, 2019 - Assessment & Plan Assessment * 58 yo F with persistent MRSA bacteremia - source not clear at this point but includes endocarditis, PNA, and osteomyelitis * Vegetation seen on heart valve today - patient likely has endocarditis and this is the most likely source of persistent MRSA bacteremia * Patient with persistent L lung infiltrate when compare CXR on admit 05/18 and today (05/21) - was originally thought to have PNA. Recent hx MRSA neck abscess s/p I&D on 04/08. However, persistent L lung infiltrate noted today on repeat CXR despite ceftaroline therapy. Discussed w Dr. Feldman - may not be infectious as this was also seen on imaging during previous hospitalization. Possibility for MRSA PNA was considered high based on MRSA bacteremia and recent MRSA abscess but it would be abnormal for MRSA PNA to persist while on ceftaroline and furthermore persistent MRSA bacteremia can be explained 2nd endocarditis. Discussed need for Gram negative coverage with Dr. Feldman - OK to hold off for now * Osteomyelitis of cervical spine from recent MRSA neck abscess less likely at this time as etiology of persistent MRSA bacteremia more likely due to endocarditis * Recent visit 04/02-04/11 for neck abscess s/p I&D on 04/08 with MRSA isolated * Antibiotics that visit include one time doses of cefepime and levofloxacin , doxycycline 04/03-04/06, daptomycin 04/06-04/11. Patient was discharged with Bactrim to complete a 14 day course (ending 04/20) * Other PMH * Immunosuppressed state 2nd prednisone 30 mg daily * [place] resident * Current smoker * Diabetes * COPD * Chronic respiratory failure * Diastolic CHF * ABDI cirrhosis * Morbid obesity * Antibiotics * Ceftaroline day 4 * Levofloxacin discontinued on 05/19 after 2 doses * Aztreonam x1 in ED on 05/18 * Vancomycin x1 in ED on 05/18 and resumed today 2nd persistently positive b lood cultures * Note: daptomycin is likely a better alternative for this patient as compared to vancomycin to treat endocarditis. However, it does not have pulmonary coverage. Therefore recommended vancomycin for now as pulmonary MRSA coverage still needed and CXR with persistent infiltrate despite ceftaroline. However, recommend transition to daptomycin to complete a minimum of 6 week course from the time of first negative blood culture. Timing of this transition should occur once MRSA PNA ruled out or once patient completes a course of therapy for MRSA PNA * Cultures * 05/18 blood cultures x2: MRSA (good vanc LEANN of 1 mcg/mL) * 05/19 blood cultures x2: Staph aureus * 05/20 blood cultures x2: GPC Vancomycin * May be difficult to achieve therapeutic levels in morbidly obese patient with good renal function * Will initiate at aggressive dose and check an early level Plan * Vancomycin 2750 mg IV x1 then 2000 mg IV q8h * Trough 05/22 @ 0730 Pharmacy will continue to follow and will adjust dose/frequency as necessary. Thank you.
[2019-05-21] MEDS ORDERED: Nursing to Pharmacy Communication ONE (19:07)
[2019-05-21] MEDS: AMIODARONE 200 MG TAB PO SCH (20:28)
[2019-05-21] MEDS ORDERED: [UNRECOGNIZED DRUG - REMARK] ONE (21:00)
--- NOTE | 2019-05-21 22:27 | Magnetic Resonance Report ---
Study: MRI soft tissue neck HISTORY: Abscess. Mass. Dysphagia. FINDINGS: Limited study due to considerable patient respiratory and somatic motion. Small details not seen although there is no major mass collection or abscess. Visualized components of the salivary gl ands are unremarkable. The airway cannot be diagnostically evaluated. Appears be pleural thickening o f the left pulmonary apex. IMPRESSION: 1. Limited very limited study due to considerable respiratory and somatic motion. 2. No evidence for major abscess or collection. 3. Nondiagnostic evaluation of the airway. 4. Pleural thickening left pulmonary apex Electronically signed by: Harvey Blevins M.D. 05/21/2019 10:26 PM
[2019-05-22] MEDS: VANCOMYCIN HCL 2,000 MG in SODIUM CHLORIDE 0.9% 500 ML IV SCH ×2 (00:49→08:21)
[2019-05-22] MEDS: ALBUT/IPRATROP 3MG/0.5MG NEB 3 ML VIAL INH SCH ×6 (03:39→23:10)
[2019-05-22] MEDS: CEFTAROLINE FOSAMIL ACETATE 600 MG in SODIUM CHLORIDE 0.9% 250 ML IV SCH (04:58)
[2019-05-22 05:04] LABS: Basophils # (auto) 0.03 K/uL (0-0.2); Basophils % (auto) 0.2 %; Hematocrit (blood only) 37.7 % (37-47); Hemoglobin 12.4 g/dL (12.0-16.0); Immature Granulocytes # (auto) 0.54 K/uL (0.00-0.02); Immature Granulocytes % (auto) 4.2 %; Lymphocytes # (auto) 0.89 K/uL (1.2-3.4); Lymphocytes % (auto) 6.9 %; Mean Corpuscular Hgb Conc 32.9 g/dL (32-36); Mean Corpuscular Volume 97.2 fL (80-100); Mean Platelet Volume 9.1 fL (7.4-10.4); Monocytes # (auto) 0.65 K/uL (0.11-0.59); Monocytes % (auto) 5.1 %; Neutrophils # (auto) 10.73 K/uL (1.4-6.5); Neutrophils % (auto) 83.6 %; Platelet Count 196 K/uL (130-400); RDW Coefficient of Variation 13.2 % (11.5-14.5); RDW Standard Deviation 46.7 fL (36.4-46.3); Red Blood Count 3.88 M/uL (4.2-5.4); White Blood Count 12.84 K/uL (4.8-10.8)
[2019-05-22 05:25] LABS: Partial Thromboplastin Ratio 1.5; Partial Thromboplastin Time 39.3 Seconds (21.0-31.0)
[2019-05-22] MEDS ORDERED: HydrALAZINE HCL 20 MG/ML VIAL IV STA (05:31)
[2019-05-22 05:32] LABS: BUN Creatinine Ratio 39.7 (10-20); Calcium 9.6 mg/dl (8.5-10.1); Creatinine Clr Calc Pharmacy 145.9 ml/min; Est GFR (African American) 116.9; Est GFR (Non-African American) 100.9; Potassium 3.6 mmol/L (3.5-5.1)
[2019-05-22] MEDS ORDERED: HEPARIN IV BOLUS 4,500 UNITS in SYRINGE 0 ML IV ONE (05:39)
[2019-05-22] MEDS: LEVOTHYROXINE SODIUM 200 MCG TABLET PO SCH (05:51)
[2019-05-22] MEDS: Heparin Adult LOW DOSE Wt-Based Dextrose 5% 25,000 units/500 mL IV SCH (07:09)
[2019-05-22] MEDS ORDERED: VANCOMYCIN TROUGH ONE (07:30)
[2019-05-22] MEDS: PANTOprazole 40 MG TAB PO SCH (07:35)
[2019-05-22] MEDS: ASPIRIN 81 MG ECTAB PO SCH (07:43)
[2019-05-22] MEDS: SPIRONOLACTONE 25 MG TAB PO SCH (07:43)
[2019-05-22] MEDS: BUMETANIDE 1 MG TAB PO SCH (07:45)
[2019-05-22] MEDS: CARVEDILOL 3.125 MG TAB PO SCH ×2 (07:45→20:26)
[2019-05-22] MEDS: AMIODARONE 200 MG TAB PO SCH ×2 (07:45→20:26)
[2019-05-22] MEDS: GABAPENTIN 100 MG CAP PO SCH ×3 (07:45→20:26)
[2019-05-22] MEDS: predniSONE 10 MG TABLET PO SCH (07:45)
[2019-05-22] MEDS: ATORVASTATIN 40 MG TAB PO SCH (07:46)
[2019-05-22] MEDS: CLOPIDOGREL BISULFATE 75 MG TAB PO SCH (07:46)
[2019-05-22] MEDS: ACETAMINOPHEN 325 MG TAB PO PRN ×2 (08:00→23:41)
[2019-05-22] MEDS: ALUMINUM/MAGNESIUM SUSP 30 ML UDC PO PRN (08:00)
[2019-05-22] MEDS: INSULIN ASPART 100 UNITS/ML 3 ML PEN SC SCH ×4 (08:22→20:25)
[2019-05-22] MEDS: SIMETHICONE 80 MG CHEW PO PRN (09:06)
--- NOTE | 2019-05-22 09:17 | Pharmacy Report ---
Pharmacy Glycemic Short Note 2 - Date of Service May 22, 2019 - Glycemic Short BSG Results (Last 24 hours): 05/21/19 05/21/19 05/21/19 05:55 06:54 08:03 Glucose POC Glucose 102 H 98 82 05/21/19 05/21/19 05/21/19 08:24 08:41 09:33 Glucose POC Glucose 97 108 H 125 H 05/21/19 05/21/19 05/21/19 10:37 11:15 13:21 Glucose POC Glucose 117 H 125 H 149 H 05/21/19 05/21/19 05/21/19 15:30 17:29 18:30 Glucose POC Glucose 154 H 226 H 185 H 05/21/19 05/21/19 05/21/19 19:27 20:25 21:08 Glucose POC Glucose 183 H 231 H 227 H 05/21/19 05/21/19 05/22/19 22:28 23:53 00:53 Glucose POC Glucose 183 H 180 H 176 H 05/22/19 05/22/19 05/22/19 01:48 02:48 04:00 Glucose POC Glucose 136 H 138 H 144 H 05/22/19 05/22/19 05/22/19 04:35 05:08 06:45 Glucose 135 H POC Glucose 117 H 112 H Outpatient Anti-diabetic Regimen: * Insulin glargine 55 units SC BID * Insulin lispro 30 units SC AC * A1c = 7.8 % on 05/19/19 The patient is currently receiving: * Basal insulin: Lantus 50-55 units every 12 hours * Prandial insulin: Per insulin drip, but carb ratio of 1 unit per 5 grams CHO consumed (maximum drip will allow) has been used most recently * Insulin drip @ 10 units/hr this AM Risk Factors for Insulin Resistance: * Steroids: home dose of prednisone 30 mg po daily starting this AM * Infection: Persistent MRSA bacteremia 2nd endocarditis and also possible HAP * Diet: T2DM ASSESSMENT: * Glycemic targets met with insulin drip * Patient's insulin infusion rate @4.3 units/hr this AM. Also has 100 units of Lantus on board from yesterday (40 in AM + 60 in PM) * Now that patient is resuming home dose of steroid, will begin transition off insulin drip as the effects of yesterday's Solu-Medrol doses should be dissipating * Reviewed her admission in March, will receiving a prednisone taper. The regimen below is based upon her insulin requirements during that admission on a similar dose of Prednisone. PLAN FOR INPATIENT GLYCEMIC CONTROL: * Basal insulin: Lantus 50 units SQ BID * Insulin gtt, d/c at 1400 today (05/22) * Novolog SQ ACHS and at 0200 tonight * Goal range: 110-140mg/dL * Correction factor: 10mg/dL/unit * Carb ratio: 1 unit per 4 grams CHOs consumed
[2019-05-22] MEDS: INSULIN GLARGINE SOLOSTAR 100 UNITS/ML 3 ML PEN SC SCH ×2 (09:53→20:25)
--- NOTE | 2019-05-22 11:05 | Pharmacy Report ---
Pharmacy Abx Dose Short Note - Date of Service May 22, 2019 - Assessment & Plan Assessment * 58 year old F receiving VANCOMYCIN 2000mg (~14mg/kg) IV Q 8 hrs for treatment of MRSA bacteremia, AV endocarditis, possible pneumonia * Plan per Chip Mucker is to place patient on VANCOMYCIN IV x 7 days, then begin DAPTOMYCIN for treatment of endocarditis * Day # 2 IV VANCOMYCIN therapy * Had received CEFTAROLINE 05/18-05/22, before VANCOMYCIN was added for MRSA endocarditis. DAPTOMYCIN does not provide adequate coverage of pulmonary infxn due to inactivation by pulmonary surfactant thus VANCOMYCIN on board. Plan Vancomycin * Trough level of 30.5 mcg/mL is supratherapeutic. This level was drawn after only 2 maintenance doses and was likely to climb with repeat dosing. Prior doses were also hung on time and the level was drawn at the appropriate time. * Prior admissions were reviewed and it appears that this patient's clearance is much different than that predicted by population p'kinetic data. She has required less on a mg/kg basis and dosing interval is longer than that estimated. Her 01/2018 admission was reviewed. * Pt did receive ~1200mg IV this AM from the 0800 dose before the trough level was reported. * Will check trough level 18 hrs after this AM's dose was given. I believe the half-life to be ~12 hours and by rough estimates I believe the trough will likely be less than 20mcg/mL at that time. * Plan to begin vancomycin 1500mg (~10.2mg/kg) IV Q 12 hrs when level is less than 20mcg/mL. Pharmacy will continue to follow and will adjust dose/frequency as necessary. Thank you.
[2019-05-22 11:29] LABS: Partial Thromboplastin Ratio 1.1; Partial Thromboplastin Time 29.9 Seconds (21.0-31.0)
--- NOTE | 2019-05-22 11:46 | Critical Care Progress Note ---
Date of Service May 22, 2019 Assessment & Plan (1) Acute endocarditis: Impression: 1. 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 2. Sepsis with MRSA bacteremia. 3. Recent neck abscess status post IND. 4. Left lower lobe pneumonia. 5. Morbid obesity with obstructive sleep apnea. 6. COPD, chronic, not in exacerbation. 7. New onset A. fib, converted to normal sinus rhythm on amiodarone. Plan: 1. Continue with vancomycin given the patient having left lower lobe infiltrate. 2. Discontinue ceftaroline. Appreciate pharmacy input. I do not have any evidence of gram-negative at this point to cover. 3. MRI of the neck and soft tissue did not reveal any fluid collection. No evidence of osteo-myelitis. 4. Appreciate Dr. Wayne input, the patient did have vegetation on her aortic valve, in the coronary cuspid, will require prolonged antibiotic course up to 6 weeks. 5. Continue prednisone 30 mg p.o. daily for pemphigoid syndrome. 6. The patient was on heparin drip, I have stopped it, the patient is not known to have history of A. fib except for one time, I will defer long-term anti- correlation to cardiology. 7. Continue amiodarone 400 mg p.o. twice daily, decision to continue it or discontinue it also deferred to cardiology. 8. Resume oral intake. 9. Bronchodilators. 10. CPAP nocturnally. 11. Glucose control, appreciate pharmacy input.. 12. Core measures for the ICU has been met. 13. Transfer the patient to telemetry floor. 14. Discussed with Dr. Manley, appreciate his acceptance. 15. Vanco trough followed by pharmacy, appreciate. 16. PICC line placement once the patient bacteremia resolved. 17. Disposition plan per case management, appreciated. 18. OT PT consult. Thank you, case discussed with the staff on rounds in details, critical care time spent with the patient was 45 minutes. Subjective The patient has been demanding overnight, however she does have cluster of complaint that cannot explain her current illness, although she was complaining mainly of pain in her abdomen and her chest, without significant EKG changes, has been intermittent, she does have generalized weakness, she wants to go home, she was complaining of back pain, apart from these complaints, she is tolerating oral intake, no events overnight. Review of Systems Review of Systems: Apart from the above, review of system otherwise including 10 systems was unremarkable. Physical Exam Physical Exam: Vital signs remained stable, O2 saturation is variable but above the 92%, S1-S2, no tenderness in the neck area, distant breath sounds, abdomen is obese but benign, skin changes were noted due to her pemphigoid syndrome, edema in the periphery, neurologically she is intact, no oral lesions. Results & Data Vital Signs (Past 12 Hours) Vital Signs Pulse Pulse Resp BP Pulse Ox 05/22/19 11:14 61 24 92 05/22/19 10:00 61 23 92 05/22/19 09:00 63 23 91 05/22/19 08:00 67 19 90 05/22/19 07:25 72 72 25 H 92 05/22/19 07:02 63 22 138/72 92 05/22/19 06:01 58 L 22 152/77 H 93 05/22/19 05:02 60 20 211/72 H 92 05/22/19 04:01 56 L 20 166/65 H 93 05/22/19 03:40 52 L 54 L 19 92 05/22/19 03:02 57 L 22 204/74 H 92 05/22/19 02:01 61 24 177/82 H 93 05/22/19 01:44 63 18 168/84 H 92 05/22/19 01:01 54 L 21 168/84 H 91 05/22/19 00:02 58 L 22 181/83 H 93 Laboratory Results Her labs were reviewed, Diagnostic Findings Chest x-ray was done and reviewed personally which showed small bilateral pleural effusion, cardiomegaly, hyperinflated lungs, EKG was reviewed which showed no ST-T changes. PG Care Time/CCT Critical Care Time: Yes Total Critical Care Time: 45
--- NOTE | 2019-05-22 12:48 | XRay Report ---
XR chest 1V portable CLINICAL HISTORY: Atypical chest pain and shortness of breath COMPARISON STUDY: 05/21/2019 FINDINGS: The heart remains enlarged. There is been interval insertion of a right-sided PICC catheter . The tip projects over the superior vena cava. There is a left lower lobe opacity, likely representi ng a combination of pleural fluid and left lower lobe atelectasis/consolidation. There is radiographi c evidence of mild pulmonary vascular congestion. A trace right pleural effusion is again suspected.[ IMPRESSION: 1. Cardiomegaly and radiographic evidence of mild congestive failure/fluid overload 2. Moderate left pleural effusion with associated left lower lobe atelectasis/consolidation 3. Trace right pleural effusion 4. Interval insertion of a right-sided PICC catheter Electronically signed by: Karthikeyan Olvera M.D. 05/22/2019 12:46 PM
--- NOTE | 2019-05-22 13:59 | Hospitalist Progress Note ---
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 she had a MRSA furuncle on her left neck that required I/D during previous admission. now with evidence of endocarditis repeat blood cultures on 05/19 and 05/20 showing growth with MRSA continue Ceftaroline per ID, add Vancomycin today elevator constructor Ceftaroline and Daptomycin most likely the plan likely benefit from going to LTACH once stable (3) Severe sepsis: 2nd to LLL pneumonia and MRSA bacteremia/septicemia. See "MRSA bacteremia" above. Sepsis resolved, vitals stable, WBC stable at 12k, no fever (4) LLL pneumonia: As seen on CT chest. High likelihood this is due to MRSA. Cont abx (ceftaroline and Vancomycin) Day #5 of therapy. Supportive care, BIPAP as needed. ultimately would need 7 days of abx but will have more than enough coverage in treating bacteremia Vancomycin added on 05/21 more for the persistent positive blood cultures (5) Acute on chronic respiratory failure with hypoxia and hypercapnia: Acute component 2nd to LLL pneumonia and COPD flare. Chronic - COPD, GEETHA, OHS, etc. Acute component much improved Agree with weaning of steroids. Abx for LLL pneumonia per ID/critical care. (6) Metabolic encephalopathy: Due to sepsis/pneumonia - resolved. Ammonia level was normal. VBGs with hypercarbia but this has slowly improved. Avoid hyperoxia; keep sats low 90s. Avoid narcotics. Keep euglycemic. (7) COPD (chronic obstructive pulmonary disease): with exacerbation. changed to Prednisone 30mg daily Nebs q4h. BIPAP and NC O2. Supportive care. (8) Coronary atherosclerosis of [place] coronary vessel: Resumed asa, plavix, statin. Troponins negative. EKG without ischemic changes. Chest pain is musculoskeletal - reproducible on exam. Consider k-pad. (9) Diastolic CHF: Was volume contracted clinically at admission, then received fluid resuscitation for severe sepsis. May have developed mild fluid overload late yesterday. Diuretics resumed, Bumex and Diamox (10) Tobacco use disorder: Offer nicoderm patch if truly still smoking at SNF. (11) Cirrhosis of liver: 2nd to ABDI and/or autoimmune causes. Ammonia level was normal. INR stable. LFTs stable. (12) DM type 2 (diabetes mellitus, type 2): Appreciate Pharmacy glycemic assistance. Now on insulin infusion due to hyperglycemia from steroids. (13) Hypothyroidism: TSH within the last 2 months wnl. Cont synthroid. (14) Hyponatremia: Due to volume contraction at admission. Resolved, Na 136 today (15) Bullous pemphigoid: Controlled. No active bullae at this time. On chronic prednisone 30mg/day and niacinamide 500mg TID at home Giving stress dose steroids for sepsis and COPD exacerbation, Solu Medrol 50mg q8 (16) Chest pain: Musculoskeletal. Reproducible on exam; EKG w/o ischemic changes; troponins negative. (17) Morbid obesity with BMI of 50.0-59.9, adult: BMI 55 (18) Hypokalemia: low at 3.3, will replace and repeat tomorrow (19) DVT prophylaxis: lovenox 40mg daily told patient she would NOT be a candidate to return to her actual home in [place] UNLESS she had 20/06 caregivers. daughter stated that would never be possible. social work assistance appreciated. would need SNF again at d/c. [facility], we can discuss with CM tomorrow about alternative SNF Subjective patient feeling okay this morning she had some chest pain but it went away she described it more as epigastric pain EKG without ischemic changes, CXR without changes reviewed labs, WBC up to 12k, Cr stable, electrolytes stable discussed with Dr. Feldman, he is okay with patient going to tele patient getting PICC line today Review of Systems Review of Systems: All systems reviewed & are unremarkable except as noted in HPI & below Constitutional: no fever Respiratory: + cough and + dyspnea; no sputum production and no wheezing Cardiovascular: + chest pain, + chest pain at rest, + dyspnea and + edema Gastrointestinal: + abdominal pain (epigastric); no nausea, no vomiting, no constipation and no diarrhea/loose stools Physical Exam Constitutional: WD/WN, vitals as above + obese Eyes: PERRL, conjunctivae normal, anicteric sclerae ENMT: external ear and nose normal, oropharynx normal Neck: trachea midline, no thyromegaly Respiratory: normal respiratory effort, lungs clear to auscultation Cardiovascular: RRR, no murmur, no edema Gastrointestinal (Abdomen): normal bowel sounds, soft, nontender, no hepatosplenomegaly Musculoskeletal: no cyanosis or clubbing, extremities motor strength 5/5 Spine: + limited thoraco-lumbar ROM (due to pain) Skin: + rash (numerous dry rashes, erythematous), + dry skin and + nails dystrophic Neurologic: patellar DTR's 2+ bilat, sensation intact and PERRL, EOMI, accommodation nl, no face palsy, no dysarthria Psychiatric: Orientation: alert and oriented x 3 Affect: + depressed affect Lymphatic: no cervical or axillary lymphadenopathy Results & Data Vital Signs (Past 12 Hours) Vital Signs Pulse Pulse Resp BP Pulse Ox 05/22/19 13:04 63 24 111/53 L 91 05/22/19 13:00 65 21 90 05/22/19 12:00 61 22 92 05/22/19 11:14 61 24 92 05/22/19 11:00 62 20 92 05/22/19 10:00 61 23 92 05/22/19 09:00 63 23 91 05/22/19 08:00 67 19 90 05/22/19 07:25 72 72 25 H 92 05/22/19 07:02 63 22 138/72 92 05/22/19 06:01 58 L 22 152/77 H 93 05/22/19 05:02 60 20 211/72 H 92 05/22/19 04:01 56 L 20 166/65 H 93 05/22/19 03:40 52 L 54 L 19 92 05/22/19 03:02 57 L 22 204/74 H 92 05/22/19 02:01 61 24 177/82 H 93 Laboratory Results Laboratory Results - last 24 hr 05/21/19 05/21/19 05/21/19 15:30 17:29 18:30 WBC RBC Hgb Hct MCV MCH MCHC RDW Std Deviation RDW Coeff of Ministerio Plt Count MPV Immature Gran % (Auto) Neut % (Auto) Lymph % (Auto) [place] % (Auto) Eos % (Auto) Baso % (Auto) Immature Gran # (Auto) Neut # (Auto) Lymph # (Auto) [place] # (Auto) Eos # (Auto) Baso # (Auto) APTT PTT Ratio Sodium Potassium Chloride Carbon Dioxide Anion Gap BUN Creatinine Est Cr Clr Drug Dosing Est GFR ( Amer) Est GFR (Non-Af Amer) BUN/Creatinine Ratio Glucose POC Glucose 154 H 226 H 185 H Calcium Vancomycin Trough 05/21/19 05/21/19 05/21/19 19:27 20:25 21:08 WBC RBC Hgb Hct MCV MCH MCHC RDW Std Deviation RDW Coeff of Ministerio Plt Count MPV Immature Gran % (Auto) Neut % (Auto) Lymph % (Auto) [place] % (Auto) Eos % (Auto) Baso % (Auto) Immature Gran # (Auto) Neut # (Auto) Lymph # (Auto) [place] # (Auto) Eos # (Auto) Baso # (Auto) APTT PTT Ratio Sodium Potassium Chloride Carbon Dioxide Anion Gap BUN Creatinine Est Cr Clr Drug Dosing Est GFR ( Amer) Est GFR (Non-Af Amer) BUN/Creatinine Ratio Glucose POC Glucose 183 H 231 H 227 H Calcium Vancomycin Trough 05/21/19 05/21/19 05/22/19 22:28 23:53 00:53 WBC RBC Hgb Hct MCV MCH MCHC RDW Std Deviation RDW Coeff of Ministerio Plt Count MPV Immature Gran % (Auto) Neut % (Auto) Lymph % (Auto) [place] % (Auto) Eos % (Auto) Baso % (Auto) Immature Gran # (Auto) Neut # (Auto) Lymph # (Auto) [place] # (Auto) Eos # (Auto) Baso # (Auto) APTT PTT Ratio Sodium Potassium Chloride Carbon Dioxide Anion Gap BUN Creatinine Est Cr Clr Drug Dosing Est GFR ( Amer) Est GFR (Non-Af Amer) BUN/Creatinine Ratio Glucose POC Glucose 183 H 180 H 176 H Calcium Vancomycin Trough 05/22/19 05/22/19 05/22/19 01:48 02:48 04:00 WBC RBC Hgb Hct MCV MCH MCHC RDW Std Deviation RDW Coeff of Ministerio Plt Count MPV Immature Gran % (Auto) Neut % (Auto) Lymph % (Auto) [place] % (Auto) Eos % (Auto) Baso % (Auto) Immature Gran # (Auto) Neut # (Auto) Lymph # (Auto) [place] # (Auto) Eos # (Auto) Baso # (Auto) APTT PTT Ratio Sodium Potassium Chloride Carbon Dioxide Anion Gap BUN Creatinine Est Cr Clr Drug Dosing Est GFR ( Amer) Est GFR (Non-Af Amer) BUN/Creatinine Ratio Glucose POC Glucose 136 H 138 H 144 H Calcium Vancomycin Trough 05/22/19 05/22/19 05/22/19 04:35 04:35 04:35 WBC 12.84 H RBC 3.88 L Hgb 12.4 Hct 37.7 MCV 97.2 MCH 32.0 MCHC 32.9 RDW Std Deviation 46.7 H RDW Coeff of Ministerio 13.2 Plt Count 196 MPV 9.1 Immature Gran % (Auto) 4.2 Neut % (Auto) 83.6 Lymph % (Auto) 6.9 [place] % (Auto) 5.1 Eos % (Auto) 0.0 Baso % (Auto) 0.2 Immature Gran # (Auto) 0.54 H Neut # (Auto) 10.73 H Lymph # (Auto) 0.89 L [place] # (Auto) 0.65 H Eos # (Auto) 0.00 Baso # (Auto) 0.03 APTT 39.3 H PTT Ratio 1.5 Sodium 136 Potassium 3.6 Chloride 98 Carbon Dioxide 37 H Anion Gap 1.0 L BUN 23 H Creatinine 0.58 L Est Cr Clr Drug Dosing 145.9 Est GFR ( Amer) 116.9 Est GFR (Non-Af Amer) 100.9 BUN/Creatinine Ratio 39.7 H Glucose 135 H POC Glucose Calcium 9.6 Vancomycin Trough 05/22/19 05/22/19 05/22/19 05:08 06:45 07:21 WBC RBC Hgb Hct MCV MCH MCHC RDW Std Deviation RDW Coeff of Ministerio Plt Count MPV Immature Gran % (Auto) Neut % (Auto) Lymph % (Auto) [place] % (Auto) Eos % (Auto) Baso % (Auto) Immature Gran # (Auto) Neut # (Auto) Lymph # (Auto) [place] # (Auto) Eos # (Auto) Baso # (Auto) APTT PTT Ratio Sodium Potassium Chloride Carbon Dioxide Anion Gap BUN Creatinine Est Cr Clr Drug Dosing Est GFR ( Amer) Est GFR (Non-Af Amer) BUN/Creatinine Ratio Glucose POC Glucose 117 H 112 H Calcium Vancomycin Trough 30.5 05/22/19 05/22/19 05/22/19 07:31 08:57 09:56 WBC RBC Hgb Hct MCV MCH MCHC RDW Std Deviation RDW Coeff of Ministerio Plt Count MPV Immature Gran % (Auto) Neut % (Auto) Lymph % (Auto) [place] % (Auto) Eos % (Auto) Baso % (Auto) Immature Gran # (Auto) Neut # (Auto) Lymph # (Auto) [place] # (Auto) Eos # (Auto) Baso # (Auto) APTT PTT Ratio Sodium Potassium Chloride Carbon Dioxide Anion Gap BUN Creatinine Est Cr Clr Drug Dosing Est GFR ( Amer) Est GFR (Non-Af Amer) BUN/Creatinine Ratio Glucose POC Glucose 112 H 166 H 124 H Calcium Vancomycin Trough 05/22/19 10:55 WBC RBC Hgb Hct MCV MCH MCHC RDW Std Deviation RDW Coeff of Ministerio Plt Count MPV Immature Gran % (Auto) Neut % (Auto) Lymph % (Auto) [place] % (Auto) Eos % (Auto) Baso % (Auto) Immature Gran # (Auto) Neut # (Auto) Lymph # (Auto) [place] # (Auto) Eos # (Auto) Baso # (Auto) APTT 29.9 PTT Ratio 1.1 Sodium Potassium Chloride Carbon Dioxide Anion Gap BUN Creatinine Est Cr Clr Drug Dosing Est GFR ( Amer) Est GFR (Non-Af Amer) BUN/Creatinine Ratio Glucose POC Glucose Calcium Vancomycin Trough Diagnostic Findings XR chest 1V portable CLINICAL HISTORY: Atypical chest pain and shortness of breath COMPARISON STUDY: 05/21/2019 FINDINGS: The heart remains enlarged. There is been interval insertion of a right-sided PICC catheter. The tip projects over the superior vena cava. There is a left lower lobe opacity, likely representing a combination of pleural fluid and left lower lobe atelectasis/consolidation. There is radiographic evidence of mild pulmonary vascular congestion. A trace right pleural effusion is again suspected.[ IMPRESSION: 1. Cardiomegaly and radiographic evidence of mild congestive failure/fluid overload 2. Moderate left pleural effusion with associated left lower lobe atelectasis/co nsolidation 3. Trace right pleural effusion 4. Interval insertion of a right-sided PICC catheter Medications Administered Current Inpatient Medications Acetaminophen (Tylenol) 650 mg PO Q4H PRN PRN Reason: Pain or Fever Stop: 06/21/19 07:42 Last Admin: 05/22/19 08:00 Dose: 650 mg Documented by: Al Hydrox/Mg Hydrox/Simethicone (Maalox) 15 ml PO Q6H PRN PRN Reason: Dyspepsia Stop: 06/21/19 07:42 Last Admin: 05/22/19 08:00 Dose: 15 ml Documented by: Albuterol (Duoneb) 3 ml INH Q4R [place] Stop: 06/17/19 11:59 Last Admin: 05/22/19 11:14 Dose: 3 ml Documented by: Amiodarone HCl (Cordarone) 400 mg PO BID [facility] Stop: 06/20/19 20:59 Last Admin: 05/22/19 07:45 Dose: 400 mg Documented by: Aspirin (Ecotrin Ectab) 81 mg PO DAILY [facility] Stop: 06/17/19 09:57 Last Admin: 05/22/19 07:43 Dose: 81 mg Documented by: Atorvastatin Calcium (Lipitor) 40 mg PO DAILY [facility] Stop: 06/17/19 09:57 Last Admin: 05/22/19 07:46 Dose: 40 mg Documented by: Betamethasone Dipropion Augmented (Diprolene 0.05%) 1 appln TOP Q8 PRN PRN Reason: bullous pemphigoid eruptions Last Admin: 05/18/19 10:46 Dose: 1 appln Documented by: Bumetanide (Bumex) 2 mg PO QAM [facility] Stop: 06/18/19 09:14 Last Admin: 05/22/19 07:45 Dose: 2 mg Documented by: Carvedilol (Coreg) 3.125 mg PO BID [facility] Stop: 06/19/19 08:59 Last Admin: 05/22/19 07:45 Dose: 3.125 mg Documented by: Clopidogrel Bisulfate (Plavix) 75 mg PO DAILY [facility] Stop: 06/17/19 09:57 Last Admin: 05/22/19 07:46 Dose: 75 mg Documented by: Dextrose (Dextrose 50%) 25 - 50 ml IV UD PRN; Protocol PRN Reason: Hypoglycemia Protocol Stop: 06/17/19 11:44 Gabapentin (Neurontin) 100 mg PO TID [facility] Stop: 06/17/19 09:57 Last Admin: 05/22/19 07:45 Dose: 100 mg Documented by: Glucagon (Glucagen) 1 mg SQ UD PRN; Protocol PRN Reason: Hypoglycemia Protocol Stop: 06/17/19 11:44 Glucose (Glucose 40%) 15 - 30 gm PO UD PRN; Protocol PRN Reason: Hypoglycemia Protocol Stop: 06/17/19 11:44 Glucose (Dex4 Glucose) 4 - 8 tabs PO UD PRN; Protocol PRN Reason: Hypoglycemia Protocol Stop: 06/17/19 11:44 Insulin Aspart (Novolog Flexpen) 0 units SC ACHS [facility] Stop: 06/21/19 16:29 Insulin Aspart (Novolog Flexpen) 0 units SC TODAY@0200 ONE Stop: 05/23/19 02:01 Insulin Glargine (Lantus Solostar Pen) 50 units SC BID [facility]; Protocol Stop: 06/21/19 09:04 Last Admin: 05/22/19 09:53 Dose: 50 units Documented by: Levothyroxine Sodium (Synthroid) 200 mcg PO DAILYBB [facility] Stop: 06/17/19 09:57 Last Admin: 05/22/19 05:51 Dose: 200 mcg Documented by: Miscellaneous (Carbohydrates For Hypoglycemia) 15 - 30 gm PO UD PRN PRN Reason: Hypoglycemia Treatment Stop: 06/17/19 11:44 Miscellaneous (Stop Order) 1 ea N/A TODAY@1400 ONE Stop: 05/22/19 14:01 Last Admin: 05/22/19 12:44 Dose: 1 ea Documented by: Miscellaneous Information (Consult Glycemic Management Pharmacy) 1 ea N/A UD PRN PRN Reason: Consult Stop: 06/17/19 19:09 Miscellaneous Information (Consult) 1 ea N/A UD PRN PRN Reason: Consult Stop: 06/20/19 08:26 Pantoprazole Sodium (Protonix) 40 mg PO DAILY [facility] Stop: 06/17/19 09:57 Last Admin: 05/22/19 07:35 Dose: 40 mg Documented by: Prednisone (Prednisone) 30 mg PO DAILY [facility] Stop: 06/20/19 13:59 Last Admin: 05/22/19 07:45 Dose: 30 mg Documented by: Simethicone (Mylicon) 80 mg PO Q6H PRN PRN Reason: Gas or Constipation Stop: 06/21/19 08:39 Last Admin: 05/22/19 09:06 Dose: 80 mg Documented by: Spironolactone (Aldactone) 25 mg PO QAM [facility] Stop: 06/18/19 09:14 Last Admin: 05/22/19 07:43 Dose: 25 mg Documented by: PG Care Time/CCT Total # of Minutes Spent Total Time Spent with Patient: Total time spent is greater than 50% in coordination of care (as documented) at patient's floor/unit and/or counseling patient: (1) Diastolic CHF Heart failure chronicity: chronic Qualified Code(s): I50.32 - Chronic diastolic (congestive) heart failure (2) DM type 2 (diabetes mellitus, type 2) Diabetes mellitus complication status: with hyperglycemia Diabetes mellitus elevator constructor insulin use: with assisted use Qualified Code(s): E11.65 - Type 2 diabetes mellitus with hyperglycemia; Z79.4 - accounts specialist (current) use of insulin (3) Hypothyroidism Hypothyroidism type: acquired Qualified Code(s): E03.9 - Hypothyroidism, unspecified (4) Cirrhosis of liver Hepatic cirrhosis type: other cirrhosis Qualified Code(s): K74.69 - Other cirrhosis of liver (5) Coronary atherosclerosis of [place] coronary vessel Associated angina: without angina [place] vs. transplanted heart: [place] heart Qualified Code(s): I25.10 - Atherosclerotic heart disease of [place] coronary artery without angina pectoris (6) COPD (chronic obstructive pulmonary disease) COPD type: COPD with acute exacerbation Qualified Code(s): J44.1 - Chronic obstructive pulmonary disease with (acute) exacerbation (7) LLL pneumonia Pneumonia type: due to unspecified organism Qualified Code(s): J18.1 - Lobar pneumonia, unspecified organism (8) Chest pain Chest pain type: unspecified Qualified Code(s): R07.9 - Chest pain, unspecified
[2019-05-22] MEDS ORDERED: [UNRECOGNIZED DRUG - REMARK] ONE (14:00)
--- NOTE | 2019-05-22 18:09 | Infectious Disease Progress Nt ---
Date of Service May 22, 2019 Assessment & Plan (1) MRSA bacteremia: Patient with MRSA endocarditis with pneumonia. Will await follow-up blood cultures after addition of vancomycin, may want to use daptomycin instead as there is some data about combination of daptomycin and ceftaroline for difficult to treat MRSA bacteremias. Will need 6 weeks of IV antibiotics following negative blood cultures. Will follow. (2) LLL pneumonia: Subjective Patient seen in follow-up for MRSA sepsis and endocarditis with pneumonia. Slightly better today, still very short of breath. No fever. Follow-up blood cultures are pending. Tolerating antibiotic without apparent difficulty. Review of Systems Review of Systems: All systems reviewed & are unremarkable except as noted in HPI & below Physical Exam Constitutional: WD/WN, vitals as above + morbidly obese and comfortable; no acute distress Eyes: PERRL, conjunctivae normal, anicteric sclerae ENMT: external ear and nose normal, oropharynx normal Neck: trachea midline, no thyromegaly neck nontender Respiratory: normal percussion; no respiratory distress and does not use accessory muscles Auscultation: + rales (Left-sided) Cardiovascular: Rate/Rhythm: regular rate and regular rhythm Heart Sounds: normal S1 and normal S2; no gallop, no murmur and no cardiac rub Vessels: normal peripheral pulses; no JVD Gastrointestinal (Abdomen): normal bowel sounds, soft, nontender, no hepatosplenomegaly Musculoskeletal: no cyanosis or clubbing, extremities motor strength 5/5 Spine: thoracic spine normal to inspection and lumbar spine normal to inspection; no cervical spinal tenderness Skin: no rashes, warm and dry normal turgor; no lesions Neurologic: patellar DTR's 2+ bilat, sensation intact no focal motor deficits Psychiatric: A+Ox3, euthymic affect Orientation: cooperative Lymphatic: no cervical or axillary lymphadenopathy no inguinal lymphadenopathy Results & Data Vital Signs (Past 12 Hours) Vital Signs Temp Pulse Pulse Resp BP BP Pulse Ox 05/22/19 15:51 36.7 C 57 L 23 132/68 91 05/22/19 15:33 58 L 18 92 05/22/19 13:04 63 24 111/53 L 91 05/22/19 13:00 65 21 90 05/22/19 12:00 61 22 92 05/22/19 11:14 61 24 92 05/22/19 11:00 62 20 92 05/22/19 10:00 61 23 92 05/22/19 09:00 63 23 91 05/22/19 08:00 67 19 90 05/22/19 07:25 72 72 25 H 92 05/22/19 07:02 63 22 138/72 92 Laboratory Results Short CBC 05/22/19 Range/Units 04:35 WBC 12.84 H (4.8-10.8) K/uL Hgb 12.4 (12.0-16.0) g/dL Hct 37.7 (37-47) % Plt Count 196 (130-400) K/uL BMP 05/22/19 04:35 Sodium 136 Potassium 3.6 Chloride 98 Carbon Dioxide 37 H BUN 23 H Creatinine 0.58 L Glucose 135 H Calcium 9.6 Diagnostic Findings Microbiology 05/20/19 09:09 Blood Aerobic Blood Culture - Preliminary Staph aureus MRSA 05/20/19 09:09 Blood Anaerobic Blood Culture - Preliminary No growth in Anaerobic bottle after 48 hours. 05/20/19 09:01 Blood Aerobic Blood Culture - Preliminary Staph aureus MRSA 05/20/19 09:01 Blood Anaerobic Blood Culture - Preliminary No growth in Anaerobic bottle after 48 hours. 05/19/19 08:16 Blood Aerobic Blood Culture - Preliminary Staph aureus MRSA 05/19/19 08:16 Blood Anaerobic Blood Culture - Preliminary No growth in Anaerobic bottle after 48 hours. 05/19/19 08:12 Blood Aerobic Blood Culture - Preliminary Staph aureus MRSA 05/19/19 08:12 Blood Anaerobic Blood Culture - Preliminary No growth in Anaerobic bottle after 48 hours. 05/18/19 04:35 Blood Aerobic Blood Culture - Final Staph aureus MRSA 05/18/19 04:35 Blood Anaerobic Blood Culture - Final Staph aureus MRSA 05/18/19 04:48 Blood Aerobic Blood Culture - Final Staph aureus MRSA 05/18/19 04:48 Blood Anaerobic Blood Culture - Final Staph aureus MRSA XR chest 1V portable CLINICAL HISTORY: Atypical chest pain and shortness of breath COMPARISON STUDY: 05/21/2019 FINDINGS: The heart remains enlarged. There is been interval insertion of a right-sided PICC catheter. The tip projects over the superior vena cava. There is a left lower lobe opacity, likely representing a combination of pleural fluid and left lower lobe atelectasis/consolidation. There is radiographic evidence of mild pulmonary vascular congestion. A trace right pleural effusion is again suspected.[ IMPRESSION: 1. Cardiomegaly and radiographic evidence of mild congestive failure/fluid overload 2. Moderate left pleural effusion with associated left lower lobe atelectasis/consolidation 3. Trace right pleural effusion 4. Interval insertion of a right-sided PICC catheter Electronically signed by: Karthikeyan Olvera M.D. 05/22/2019 12:46 PM (1) LLL pneumonia Pneumonia type: due to unspecified organism Qualified Code(s): J18.1 - Lobar pneumonia, unspecified organism
[2019-05-23] MEDS ORDERED: INSULIN ASPART 100 UNITS/ML 3 ML PEN SC ONE (02:00)
[2019-05-23 02:32] LABS: Partial Thromboplastin Ratio 0.9; Partial Thromboplastin Time 23.6 Seconds (21.0-31.0)
[2019-05-23 02:34] LABS: BUN Creatinine Ratio 51.2 (10-20); Calcium 9.6 mg/dl (8.5-10.1); Creatinine Clr Calc Pharmacy 160.1 ml/min; Est GFR (African American) 119.7; Est GFR (Non-African American) 103.3; Potassium 3.8 mmol/L (3.5-5.1)
[2019-05-23] MEDS: VANCOMYCIN HCL 1,500 MG in SODIUM CHLORIDE 0.9% 500 ML IV SCH ×2 (03:13→14:39)
[2019-05-23] MEDS: ALBUT/IPRATROP 3MG/0.5MG NEB 3 ML VIAL INH SCH ×7 (03:50→22:59)
[2019-05-23] MEDS: ACETAMINOPHEN 325 MG TAB PO PRN ×3 (05:39→16:08)
[2019-05-23] MEDS: LEVOTHYROXINE SODIUM 200 MCG TABLET PO SCH (05:39)
[2019-05-23] MEDS: INSULIN ASPART 100 UNITS/ML 3 ML PEN SC SCH ×4 (08:41→21:44)
[2019-05-23] MEDS: ASPIRIN 81 MG ECTAB PO SCH (08:43)
[2019-05-23] MEDS: predniSONE 10 MG TABLET PO SCH (08:43)
[2019-05-23] MEDS: PANTOprazole 40 MG TAB PO SCH (08:43)
[2019-05-23] MEDS: SPIRONOLACTONE 25 MG TAB PO SCH (08:43)
[2019-05-23] MEDS: AMIODARONE 200 MG TAB PO SCH ×2 (08:43→21:44)
[2019-05-23] MEDS: ATORVASTATIN 40 MG TAB PO SCH (08:43)
[2019-05-23] MEDS: CLOPIDOGREL BISULFATE 75 MG TAB PO SCH (08:44)
[2019-05-23] MEDS: INSULIN GLARGINE SOLOSTAR 100 UNITS/ML 3 ML PEN SC SCH ×2 (08:44→21:42)
[2019-05-23] MEDS: GABAPENTIN 100 MG CAP PO SCH ×3 (08:44→21:45)
--- NOTE | 2019-05-23 08:44 | Pharmacy Report ---
Pharmacy Glycemic Short Note 2 - Date of Service May 23, 2019 - Glycemic Short BSG Results (Last 24 hours): 05/22/19 05/22/19 05/22/19 07:31 08:57 09:56 Glucose POC Glucose 112 H 166 H 124 H 05/22/19 05/22/19 05/22/19 11:06 12:30 16:32 Glucose POC Glucose 104 H 78 133 H 05/22/19 05/23/19 05/23/19 20:22 01:54 01:59 Glucose 129 H POC Glucose 213 H 122 H 05/23/19 07:19 Glucose POC Glucose 92 Outpatient Anti-diabetic Regimen: * Insulin glargine 55 units SC BID * Insulin lispro 30 units SC AC * A1c = 7.8 % on 05/19/19 The patient is currently receiving: * Basal insulin: Lantus 50 units every 12 hours * Bolus insulin: Novolog SQ ACHS Goal range: 110-140mg/dL Correction factor: 10mg/dL/unit Carb ratio: 1 unit per 4 grams CHO consumed Risk Factors for Insulin Resistance: * Steroids: home dose of prednisone 30 mg po daily starting this AM * Infection: Persistent MRSA bacteremia 2nd endocarditis and also possible HAP * Diet: T2DM ASSESSMENT: 05/23 * Patient transitioned off insulin drip yesterday afternoon * Fasting BSG 92 this AM w/ 100 units of Lantus on board - will continue the same for now * HS BSG elevated yesterday, however other BSGs have been within desired range since transition. Will monitor for post-prandial hyperglycemia today but continue current Novolog orders 05/22 * Glycemic targets met with insulin drip * Patient's insulin infusion rate @4.3 units/hr this AM. Also has 100 units of Lantus on board from yesterday (40 in AM + 60 in PM) * Now that patient is resuming home dose of steroid, will begin transition off insulin drip as the effects of yesterday's Solu-Medrol doses should be dissipating * Reviewed her admission in March, will receiving a prednisone taper. The regimen below is based upon her insulin requirements during that admission on a similar dose of Prednisone. PLAN FOR INPATIENT GLYCEMIC CONTROL: * Basal insulin: Lantus 50 units SQ BID (no change) * Novolog SQ ACHS (no change) * Goal range: 110-140mg/dL * Correction factor: 10mg/dL/unit * Carb ratio: 1 unit per 4 grams CHOs consumed
[2019-05-23] MEDS: CARVEDILOL 3.125 MG TAB PO SCH ×2 (08:46→21:44)
[2019-05-23] MEDS: BUMETANIDE 1 MG TAB PO SCH (08:46)
--- NOTE | 2019-05-23 08:54 | Pharmacy Report ---
Pharmacy Abx Dose Short Note - Date of Service May 23, 2019 - Assessment & Plan Assessment * 58 year old F receiving VANCOMYCIN 2000mg (~14mg/kg) IV Q 8 hrs for treatment of MRSA bacteremia, AV endocarditis, possible pneumonia * Plan per Aluminum Molding Machine Operator is to place patient on VANCOMYCIN IV x 7 days, then begin DAPTOMYCIN for treatment of endocarditis * Day # 3 IV VANCOMYCIN therapy * Had received CEFTAROLINE 05/18-05/22, before VANCOMYCIN was added for MRSA endocarditis. DAPTOMYCIN does not provide adequate coverage of pulmonary infxn due to inactivation by pulmonary surfactant thus VANCOMYCIN on board. * MRSA in blood cx's, sensitive to vancomycin with LEANN of 1 * Renal fxn remains stable * Afebrile, VSS Plan Vancomycin * Supratherapeutic trough of 30.5 obtained yesterday prior to second maintenance dose. 1200mg of vancomycin infused of the ordered 2000mg dose at 0800 yesterday before being stopped due to elevated trough. Vancomycin was placed on hold at that time. * Random vancomycin level ordered ~18 hrs after 1200mg dose infused. Random level = 13.6, indicating need for redosing. * Vancomycin 1500mg IV Q 12 hrs initiated following this random level. This regimen is based upon prior admission data when dosing vancomycin for this patient. * Will check trough level with 4th dose of this regimen to confirm target trough obtained; goal trough 15-20mcg/mL Pharmacy will continue to follow and will adjust dose/frequency as necessary. Thank you.
[2019-05-23] MEDS ORDERED: NITROGLYCERIN SL 0.4 MG/TAB TAB SL STA (10:23)
[2019-05-23] MEDS: SIMETHICONE 80 MG CHEW PO PRN (10:42)
[2019-05-23] MEDS ORDERED: TRAMADOL HCL 50 MG TABLET PO STA (11:05)
--- NOTE | 2019-05-23 15:00 | Hospitalist Progress Note ---
Date of Service May 23, 2019 Assessment & Plan (1) Endocarditis: MRSA on numerous blood cultures despite Ceftaroline repeat blood cultures drawn on 05/22 show no growth, continue to follow to completion repeat transthoracic echo on 05/21 does show a vegetation on coronary cusp of aortic valve no vegetations seen on mitral valve no murmur on exam add Vancomycin to Ceftaroline to treat endocarditis and pneumonia civil preparedness officer, Daptomycin would be a good choice but currently would not cover the pneumonia likely will need combination of Daptomycin and Ceftaroline for 6 weeks PICC line placed on 05/22 (2) MRSA bacteremia: source - lung (LLL pneumonia) +/- skin given the numerous healing lesions. she had a MRSA furuncle on her left neck that required I/D during previous admission. now with evidence of endocarditis repeat blood cultures on 05/19 and 05/20 showing growth with MRSA continue Vancomycin trying to determine why Ceftaroline was stopped, will add back if it was accident senior living Ceftaroline and Daptomycin most likely the plan likely benefit from going to [facility] once stable (3) Severe sepsis: 2nd to LLL pneumonia and MRSA bacteremia/septicemia. See "MRSA bacteremia" above. Sepsis resolved, vitals stable, WBC stable, no fever (4) LLL pneumonia: As seen on CT chest. High likelihood this is due to MRSA. Cont abx (ceftaroline and Vancomycin) Day #5 of therapy. Supportive care, BIPAP as needed. ultimately would need 7 days of abx but will have more than enough coverage in treating bacteremia Vancomycin added on 05/21 more for the persistent positive blood cultures (5) Acute on chronic respiratory failure with hypoxia and hypercapnia: Acute component 2nd to LLL pneumonia and COPD flare. Chronic - COPD, GEETHA, OHS, etc. Acute component much improved Agree with weaning of steroids. Abx for LLL pneumonia per ID/critical care. patient is stable on 4L NC which she wears chronically (6) Metabolic encephalopathy: Due to sepsis/pneumonia - resolved. Ammonia level was normal. VBGs with hypercarbia but this has slowly improved. Avoid hyperoxia; keep sats low 90s. Avoid narcotics. Keep euglycemic. (7) COPD (chronic obstructive pulmonary disease): with exacerbation. changed to Prednisone 30mg daily Nebs q4h. BIPAP and NC O2. Supportive care. (8) Coronary atherosclerosis of [place] coronary vessel: Resumed asa, plavix, statin. Troponins negative. EKG without ischemic changes. Chest pain is musculoskeletal - reproducible on exam. Consider k-pad. (9) Diastolic CHF: Was volume contracted clinically at admission, then received fluid resuscitation for severe sepsis. May have developed mild fluid overload late yesterday. Diuretics resumed, Bumex and Diamox currently volume status is stable (10) Tobacco use disorder: Offer nicoderm patch if truly still smoking at SNF. (11) Cirrhosis of liver: 2nd to ABDI and/or autoimmune causes. Ammonia level was normal. INR stable. LFTs stable. (12) DM type 2 (diabetes mellitus, type 2): continue on Lantus and Novolog SS monitor for hypoglycemia (13) Hypothyroidism: TSH within the last 2 months wnl. Cont synthroid. (14) Hyponatremia: Due to volume contraction at admission. Resolved, Na 136 today (15) Bullous pemphigoid: Controlled. No active bullae at this time. On chronic prednisone 30mg/day and niacinamide 500mg TID at home Giving stress dose steroids for sepsis and COPD exacerbation Prednisone now down to 30mg (16) Chest pain: Musculoskeletal. Reproducible on exam; EKG w/o ischemic changes; pain is better with position changes will use Toradol and Ultram for pain (17) Morbid obesity with BMI of 50.0-59.9, adult: BMI 55 (18) Hypokalemia: resolved, up to 3.8 today (19) DVT prophylaxis: lovenox 40mg daily told patient she would NOT be a candidate to return to her actual home in [place] UNLESS she had 24/7 caregivers. daughter stated that would never be possible. looking into LTACH, referral made to [facility] feel she would be ready for discharge on Tuesday Subjective patient more alert today, breathing is stable kept complaining of left sided chest pain, under left breast, along rib cage pain would improve with position change, patient wanted to sit up more checked EKG, no ischemic changes tried Ultram and Toradol, seemed to help pain currently on Vancomycin, blood cultures from yesterday are negative to date Ceftaroline stopped yesterday, trying to determine reason discussed with pharmacy, they are looking into it discussed with case management, referral placed to [facility] to evaluate patient feel like she would be a great candidate since she will need two IV antibiotics for 6 weeks Review of Systems Review of Systems: All systems reviewed & are unremarkable except as noted in HPI & below Constitutional: + fatigue and + weakness; no fever and no chills Respiratory: + dyspnea Cardiovascular: + chest pain (left sided, chest wall pain) and + edema Gastrointestinal: no abdominal pain, no nausea, no vomiting, no constipation and no diarrhea/loose stools Physical Exam Constitutional: WD/WN, vitals as above + obese Eyes: PERRL, conjunctivae normal, anicteric sclerae ENMT: external ear and nose normal, oropharynx normal Neck: trachea midline, no thyromegaly Respiratory: normal respiratory effort, lungs clear to auscultation Cardiovascular: RRR, no murmur, no edema Chest (Breasts): Chest: normal inspection of chest (tender to palpation on left side) Gastrointestinal (Abdomen): normal bowel sounds, soft, nontender, no hepatosplenomegaly Musculoskeletal: no cyanosis or clubbing, extremities motor strength 5/5 Spine: + limited thoraco-lumbar ROM (due to pain) Skin: + rash (numerous dry rashes, erythematous), + dry skin and + nails dystrophic Neurologic: patellar DTR's 2+ bilat, sensation intact and PERRL, EOMI, accommodation nl, no face palsy, no dysarthria Psychiatric: Orientation: alert and oriented x 3 Affect: + angry affect Lymphatic: no cervical or axillary lymphadenopathy Results & Data Vital Signs (Past 12 Hours) Vital Signs Temp Pulse Pulse Pulse Resp BP Pulse Ox 05/23/19 11:21 55 L 22 95 05/23/19 11:09 36.4 C L 55 L 20 126/62 95 05/23/19 10:46 56 L 84/47 L 05/23/19 08:40 60 05/23/19 08:00 52 L 05/23/19 07:21 36.3 C L 52 L 19 125/73 98 05/23/19 07:17 53 L 16 97 05/23/19 03:50 54 L 20 98 05/23/19 03:13 36.6 C 55 L 16 125/72 97 Laboratory Results Laboratory Results - last 24 hr 05/22/19 05/22/19 05/23/19 16:32 20:22 01:54 APTT 23.6 PTT Ratio 0.9 Sodium Potassium Chloride Carbon Dioxide Anion Gap BUN Creatinine Est Cr Clr Drug Dosing Est GFR ( Amer) Est GFR (Non-Af Amer) BUN/Creatinine Ratio Glucose POC Glucose 133 H 213 H Calcium Random Vancomycin 05/23/19 05/23/19 05/23/19 01:54 01:54 01:59 APTT PTT Ratio Sodium 136 Potassium 3.8 Chloride 96 L Carbon Dioxide 38 H Anion Gap 2.0 L BUN 28 H Creatinine 0.54 L Est Cr Clr Drug Dosing 160.1 Est GFR ( Amer) 119.7 Est GFR (Non-Af Amer) 103.3 BUN/Creatinine Ratio 51.2 H Glucose 129 H POC Glucose 122 H Calcium 9.6 Random Vancomycin 13.6 05/23/19 05/23/19 07:19 11:11 APTT PTT Ratio Sodium Potassium Chloride Carbon Dioxide Anion Gap BUN Creatinine Est Cr Clr Drug Dosing Est GFR ( Amer) Est GFR (Non-Af Amer) BUN/Creatinine Ratio Glucose POC Glucose 92 86 Calcium Random Vancomycin Medications Administered Current Inpatient Medications Acetaminophen (Tylenol) 650 mg PO Q4H PRN PRN Reason: Pain or Fever Stop: 06/21/19 07:42 Last Admin: 05/23/19 10:41 Dose: 650 mg Documented by: Al Hydrox/Mg Hydrox/Simethicone (Maalox) 15 ml PO Q6H PRN PRN Reason: Dyspepsia Stop: 06/21/19 07:42 Last Admin: 05/22/19 08:00 Dose: 15 ml Documented by: Albuterol (Duoneb) 3 ml INH Q4R [facility] Stop: 06/17/19 11:59 Last Admin: 05/23/19 11:21 Dose: 3 ml Documented by: Amiodarone HCl (Cordarone) 400 mg PO BID [facility] Stop: 06/20/19 20:59 Last Admin: 05/23/19 08:43 Dose: 400 mg Documented by: Aspirin (Ecotrin Ectab) 81 mg PO DAILY [facility] Stop: 06/17/19 09:57 Last Admin: 05/23/19 08:43 Dose: 81 mg Documented by: Atorvastatin Calcium (Lipitor) 40 mg PO DAILY [facility] Stop: 06/17/19 09:57 Last Admin: 05/23/19 08:43 Dose: 40 mg Documented by: Betamethasone Dipropion Augmented (Diprolene 0.05%) 1 appln TOP Q8 PRN PRN Reason: bullous pemphigoid eruptions Last Admin: 05/18/19 10:46 Dose: 1 appln Documented by: Bumetanide (Bumex) 2 mg PO QAM [facility] Stop: 06/18/19 09:14 Last Admin: 05/23/19 08:46 Dose: 2 mg Documented by: Carvedilol (Coreg) 3.125 mg PO BID [facility] Stop: 06/19/19 08:59 Last Admin: 05/23/19 08:46 Dose: 3.125 mg Documented by: Clopidogrel Bisulfate (Plavix) 75 mg PO DAILY [facility] Stop: 06/17/19 09:57 Last Admin: 05/23/19 08:44 Dose: 75 mg Documented by: Dextrose (Dextrose 50%) 25 - 50 ml IV UD PRN; Protocol PRN Reason: Hypoglycemia Protocol Stop: 06/17/19 11:44 Gabapentin (Neurontin) 100 mg PO TID [facility] Stop: 06/17/19 09:57 Last Admin: 05/23/19 08:44 Dose: 100 mg Documented by: Glucagon (Glucagen) 1 mg SQ UD PRN; Protocol PRN Reason: Hypoglycemia Protocol Stop: 06/17/19 11:44 Glucose (Glucose 40%) 15 - 30 gm PO UD PRN; Protocol PRN Reason: Hypoglycemia Protocol Stop: 06/17/19 11:44 Glucose (Dex4 Glucose) 4 - 8 tabs PO UD PRN; Protocol PRN Reason: Hypoglycemia Protocol Stop: 06/17/19 11:44 Vancomycin HCl 1,500 mg/ (Sodium Chloride) 530 mls @ 200 mls/hr IV Q12H [facility] Stop: 06/06/19 02:59 Last Admin: 05/23/19 14:39 Dose: 200 mls/hr Documented by: Insulin Aspart (Novolog Flexpen) 0 units SC ACHS [facility] Stop: 06/21/19 16:29 Last Admin: 05/23/19 12:16 Dose: 11 units Documented by: Insulin Glargine (Lantus Solostar Pen) 50 units SC BID [facility]; Protocol Stop: 06/21/19 09:04 Last Admin: 05/23/19 08:44 Dose: 50 units Documented by: Ketorolac Tromethamine (Toradol) 30 mg IV Q6H PRN PRN Reason: Pain Stop: 05/28/19 11:07 Levothyroxine Sodium (Synthroid) 200 mcg PO DAILYBB [facility] Stop: 06/17/19 09:57 Last Admin: 05/23/19 05:39 Dose: 200 mcg Documented by: Miscellaneous (Carbohydrates For Hypoglycemia) 15 - 30 gm PO UD PRN PRN Reason: Hypoglycemia Treatment Stop: 06/17/19 11:44 Miscellaneous Information (Consult Glycemic Management Pharmacy) 1 ea N/A UD PRN PRN Reason: Consult Stop: 06/17/19 19:09 Miscellaneous Information (Consult) 1 ea N/A UD PRN PRN Reason: Consult Stop: 06/20/19 08:26 Pantoprazole Sodium (Protonix) 40 mg PO DAILY [facility] Stop: 06/17/19 09:57 Last Admin: 05/23/19 08:43 Dose: 40 mg Documented by: Prednisone (Prednisone) 30 mg PO DAILY [facility] Stop: 06/20/19 13:59 Last Admin: 05/23/19 08:43 Dose: 30 mg Documented by: Simethicone (Mylicon) 80 mg PO Q6H PRN PRN Reason: Gas or Constipation Stop: 06/21/19 08:39 Last Admin: 05/23/19 10:42 Dose: 80 mg Documented by: Spironolactone (Aldactone) 25 mg PO QAM [facility] Stop: 06/18/19 09:14 Last Admin: 05/23/19 08:43 Dose: 25 mg Documented by: PG Care Time/CCT Total # of Minutes Spent Total Time Spent with Patient: Total time spent is greater than 50% in coordination of care (as documented) at patient's floor/unit and/or counseling patient: (1) LLL pneumonia Pneumonia type: due to unspecified organism Qualified Code(s): J18.1 - Lobar pneumonia, unspecified organism (2) COPD (chronic obstructive pulmonary disease) COPD type: COPD with acute exacerbation Qualified Code(s): J44.1 - Chronic obstructive pulmonary disease with (acute) exacerbation (3) Coronary atherosclerosis of [place] coronary vessel [place] vs. transplanted heart: [place] heart Associated angina: without angina Qualified Code(s): I25.10 - Atherosclerotic heart disease of [place] coronary artery without angina pectoris (4) Diastolic CHF Heart failure chronicity: chronic Qualified Code(s): I50.32 - Chronic diastolic (congestive) heart failure (5) Cirrhosis of liver Hepatic cirrhosis type: other cirrhosis Qualified Code(s): K74.69 - Other cirrhosis of liver (6) DM type 2 (diabetes mellitus, type 2) Diabetes mellitus senior living insulin use: with civil preparedness officer use Diabetes mellitus complication status: with hyperglycemia Qualified Code(s): E11.65 - Type 2 diabetes mellitus with hyperglycemia; Z79.4 - skilled nursing (current) use of insulin (7) Hypothyroidism Hypothyroidism type: acquired Qualified Code(s): E03.9 - Hypothyroidism, unspecified (8) Chest pain Chest pain type: unspecified Qualified Code(s): R07.9 - Chest pain, unspecified
--- NOTE | 2019-05-23 15:19 | Infectious Disease Progress Nt ---
Date of Service May 23, 2019 Assessment & Plan (1) MRSA bacteremia: Patient with MRSA endocarditis with pneumonia. Will await follow-up blood cultures after addition of vancomycin, may want to use daptomycin instead as there is some data about combination of daptomycin and ceftaroline for difficult to treat MRSA bacteremias. Will need 6 weeks of IV antibiotics following negative blood cultures. Will follow. (2) LLL pneumonia: Subjective Patient seen in follow-up for MRSA endocarditis, sepsis, pneumonia. Feeling somewhat better today, less short of breath. Having some pleuritic chest pain. No fever. Hemodynamically stable overnight. Follow-up blood cultures are no growth to date. Review of Systems Review of Systems: All systems reviewed & are unremarkable except as noted in HPI & below Physical Exam Constitutional: WD/WN, vitals as above + morbidly obese and comfortable; no acute distress Eyes: PERRL, conjunctivae normal, anicteric sclerae ENMT: external ear and nose normal, oropharynx normal Neck: trachea midline, no thyromegaly neck nontender Respiratory: normal percussion; no respiratory distress and does not use accessory muscles Auscultation: + rales (Left-sided) Cardiovascular: Rate/Rhythm: regular rate and regular rhythm Heart Sounds: normal S1 and normal S2; no gallop, no murmur and no cardiac rub Vessels: normal peripheral pulses; no JVD Gastrointestinal (Abdomen): normal bowel sounds, soft, nontender, no hepatosplenomegaly Musculoskeletal: no cyanosis or clubbing, extremities motor strength 5/5 Spine: thoracic spine normal to inspection and lumbar spine normal to inspection; no cervical spinal tenderness Skin: no rashes, warm and dry normal turgor; no lesions Neurologic: patellar DTR's 2+ bilat, sensation intact no focal motor deficits Psychiatric: A+Ox3, euthymic affect Orientation: cooperative Lymphatic: no cervical or axillary lymphadenopathy no inguinal lympha denopathy Results & Data Vital Signs (Past 12 Hours) Vital Signs Temp Pulse Pulse Pulse Resp BP Pulse Ox 05/23/19 15:09 36.3 C L 55 L 19 110/59 L 92 05/23/19 11:21 55 L 22 95 05/23/19 11:09 36.4 C L 55 L 20 126/62 95 05/23/19 10:46 56 L 84/47 L 05/23/19 08:40 60 05/23/19 08:00 52 L 05/23/19 07:21 36.3 C L 52 L 19 125/73 98 05/23/19 07:17 53 L 16 97 05/23/19 03:50 54 L 20 98 Laboratory Results BMP 05/23/19 01:54 Sodium 136 Potassium 3.8 Chloride 96 L Carbon Dioxide 38 H BUN 28 H Creatinine 0.54 L Glucose 129 H Calcium 9.6 Diagnostic Findings Microbiology 05/22/19 08:40 Blood Aerobic Blood Culture - Preliminary No growth in Aerobic bottle after 24 hours. 05/22/19 08:40 Blood Anaerobic Blood Culture - Preliminary No growth in Anaerobic bottle after 24 hours. 05/22/19 08:28 Blood Aerobic Blood Culture - Preliminary No growth in Aerobic bottle after 24 hours. 05/22/19 08:28 Blood Anaerobic Blood Culture - Preliminary No growth in Anaerobic bottle after 24 hours. 05/20/19 09:09 Blood Aerobic Blood Culture - Preliminary Staph aureus MRSA 05/20/19 09:09 Blood Anaerobic Blood Culture - Preliminary No growth in Anaerobic bottle after 48 hours. 05/20/19 09:01 Blood Aerobic Blood Culture - Preliminary Staph aureus MRSA 05/20/19 09:01 Blood Anaerobic Blood Culture - Preliminary No growth in Anaerobic bottle after 48 hours. 05/19/19 08:16 Blood Aerobic Blood Culture - Preliminary Staph aureus MRSA 05/19/19 08:16 Blood Anaerobic Blood Culture - Preliminary No growth in Anaerobic bottle after 48 hours. 05/19/19 08:12 Blood Aerobic Blood Culture - Preliminary Staph aureus MRSA 05/19/19 08:12 Blood Anaerobic Blood Culture - Preliminary No growth in Anaerobic bottle after 48 hours. 05/18/19 04:35 Blood Aerobic Blood Culture - Final Staph aureus MRSA 05/18/19 04:35 Blood Anaerobic Blood Culture - Final Staph aureus MRSA 05/18/19 04:48 Blood Aerobic Blood Culture - Final Staph aureus MRSA 05/18/19 04:48 Blood Anaerobic Blood Culture - Final Staph aureus MRSA (1) LLL pneumonia Pneumonia type: due to unspecified organism Qualified Code(s): J18.1 - Lobar pneumonia, unspecified organism
[2019-05-24] MEDS: ACETAMINOPHEN 325 MG TAB PO PRN ×2 (03:10→17:31)
[2019-05-24] MEDS: VANCOMYCIN HCL 1,500 MG in SODIUM CHLORIDE 0.9% 500 ML IV SCH (03:13)
[2019-05-24] MEDS: ALBUT/IPRATROP 3MG/0.5MG NEB 3 ML VIAL INH SCH ×6 (03:55→22:44)
[2019-05-24] MEDS: LEVOTHYROXINE SODIUM 200 MCG TABLET PO SCH (05:38)
[2019-05-24 05:46] LABS: Hematocrit (blood only) 38.1 % (37-47); Hemoglobin 11.9 g/dL (12.0-16.0); Mean Corpuscular Hgb Conc 31.2 g/dL (32-36); Mean Corpuscular Volume 98.2 fL (80-100); Mean Platelet Volume 9.4 fL (7.4-10.4); Platelet Count 198 K/uL (130-400); RDW Coefficient of Variation 13.6 % (11.5-14.5); RDW Standard Deviation 48.5 fL (36.4-46.3); Red Blood Count 3.88 M/uL (4.2-5.4); White Blood Count 8.86 K/uL (4.8-10.8)
[2019-05-24 06:00] LABS: Partial Thromboplastin Ratio 0.9
[2019-05-24 06:11] LABS: Basophils # (auto) 0.03 K/uL (0-0.2); Basophils % (auto) 0.3 %; Eosinophils # (auto) 0.07 K/uL (0-0.5); Eosinophils % (auto) 0.8 %; Immature Granulocytes # (auto) 0.59 K/uL (0.00-0.02); Immature Granulocytes % (auto) 6.7 %; Lymphocytes % (auto) 15.8 %; Monocytes # (auto) 0.37 K/uL (0.11-0.59); Monocytes % (auto) 4.2 %; Neutrophils % (auto) 72.2 %; RBC Morphology Unremarkable
[2019-05-24 06:15] LABS: BUN Creatinine Ratio 58.7 (10-20); Calcium 9.5 mg/dl (8.5-10.1); Creatinine Clr Calc Pharmacy 210.8 ml/min; Est GFR (African American) 131.1; Est GFR (Non-African American) 113.1
[2019-05-24] MEDS: predniSONE 10 MG TABLET PO SCH (07:53)
[2019-05-24] MEDS: PANTOprazole 40 MG TAB PO SCH (07:53)
[2019-05-24] MEDS: CLOPIDOGREL BISULFATE 75 MG TAB PO SCH (07:54)
[2019-05-24] MEDS: BUMETANIDE 1 MG TAB PO SCH (07:54)
[2019-05-24] MEDS: ASPIRIN 81 MG ECTAB PO SCH (07:54)
[2019-05-24] MEDS: GABAPENTIN 100 MG CAP PO SCH ×3 (07:54→21:21)
[2019-05-24] MEDS: ATORVASTATIN 40 MG TAB PO SCH (07:54)
[2019-05-24] MEDS: SPIRONOLACTONE 25 MG TAB PO SCH (07:54)
[2019-05-24] MEDS: CARVEDILOL 3.125 MG TAB PO SCH ×2 (07:55→21:20)
[2019-05-24] MEDS: INSULIN ASPART 100 UNITS/ML 3 ML PEN SC SCH ×4 (07:56→21:12)
[2019-05-24] MEDS: AMIODARONE 200 MG TAB PO SCH (07:56)
[2019-05-24] MEDS: KETOROLAC 30 MG/ML VIAL IV PRN (08:00)
--- NOTE | 2019-05-24 09:57 | Pharmacy Report ---
Pharmacy Glycemic Short Note 2 - Date of Service May 24, 2019 - Glycemic Short BSG Results (Last 24 hours): 05/23/19 05/23/19 05/23/19 11:11 16:29 20:26 Glucose POC Glucose 86 118 H 353 H* 05/23/19 05/23/19 05/23/19 20:28 20:37 20:59 Glucose 228 H POC Glucose 200 H 245 H 05/24/19 05/24/19 05:20 07:17 Glucose 120 H POC Glucose 102 H Outpatient Anti-diabetic Regimen: * Insulin glargine 55 units SC BID * Insulin lispro 30 units SC AC * A1c = 7.8 % on 05/19/19 The patient is currently receiving: * Basal insulin: Lantus 50 units every 12 hours * Bolus insulin: Novolog SQ ACHS Goal range: 110-140mg/dL Correction factor: 10mg/dL/unit Carb ratio: 1 unit per 4 grams CHO consumed Risk Factors for Insulin Resistance: * Steroids: home dose of prednisone 30 mg po daily * Infection: Persistent MRSA bacteremia 2nd endocarditis and also possible HAP * Diet: T2DM ASSESSMENT: 05/24 * BSGs have been well controlled with the current regimen with the exception of HS hyperglycemia. This has occurred 2 days in a row now, and upon review of prior admissions did occur then as well. Will increase the prandial insulin dose with dinner. * Fasting BSGs at goal again today w/ 100 units of Lantus on board - no change 05/23 * Patient transitioned off insulin drip yesterday afternoon * Fasting BSG 92 this AM w/ 100 units of Lantus on board - will continue the same for now * HS BSG elevated yesterday, however other BSGs have been within desired range since transition. Will monitor for post-prandial hyperglycemia today but continue current Novolog orders 05/22 * Glycemic targets met with insulin drip * Patient's insulin infusion rate @4.3 units/hr this AM. Also has 100 units of Lantus on board from yesterday (40 in AM + 60 in PM) * Now that patient is resuming home dose of steroid, will begin transition off insulin drip as the effects of yesterday's Solu-Medrol doses should be dissipating * Reviewed her admission in March, will receiving a prednisone taper. The regimen below is based upon her insulin requirements during that admission on a similar dose of Prednisone. PLAN FOR INPATIENT GLYCEMIC CONTROL: * Basal insulin: Lantus 50 units SQ BID (no change) * Novolog SQ ACHS (increase dinner prandial dose) * Goal range: 110-140mg/dL * Correction factor: 10mg/dL/unit * Carb ratio: 1 unit per 4 grams CHOs consumed with breakfast and lunch; 1 unit per 3 grams CHOs consumed with dinner only
[2019-05-24] MEDS: CEFTAROLINE FOSAMIL ACETATE 600 MG in SODIUM CHLORIDE 0.9% 250 ML IV SCH ×2 (10:13→21:20)
[2019-05-24] MEDS: INSULIN GLARGINE SOLOSTAR 100 UNITS/ML 3 ML PEN SC SCH ×2 (10:13→21:13)
[2019-05-24] MEDS ORDERED: DAPTOmycin 500 MG VIAL IV SCH (10:45)
[2019-05-24] MEDS: RIFAMPIN IV SCH ×2 (11:44→18:09)
[2019-05-24] MEDS: SODIUM CHLORIDE 0.9% IV SCH ×2 (11:44→18:09)
[2019-05-24] MEDS: DAPTOmycin 725 MG in SYRINGE 0 ML IV SCH (12:07)
[2019-05-24] MEDS ORDERED: BUMETANIDE 2 MG in SYRINGE 0 ML IV ONE (12:30)
--- NOTE | 2019-05-24 14:20 | Hospitalist Progress Note ---
Date of Service May 24, 2019 Assessment & Plan (1) Endocarditis: MRSA on numerous blood cultures despite Ceftaroline repeat blood cultures drawn on 05/22 now showing gram positive cocci in clusters repeat blood cultures drawn on 05/23 repeat transthoracic echo on 05/21 does show a vegetation on coronary cusp of aortic valve no vegetations seen on mitral valve no murmur on exam d/w Dr. Zamudio on 05/23, will treat with Daptomycin, Ceftaroline and Rifampin will need 6 weeks PICC line placed on 05/22 (2) MRSA bacteremia: source - lung (LLL pneumonia) +/- skin given the numerous healing lesions. she had a MRSA furuncle on her left neck that required I/D during previous admission. now with evidence of endocarditis repeat blood cultures on 05/19 and 05/20 and 05/22 all with growth new blood cultures drawn 05/23 as above, will use Ceftaroline, Daptomycin, Rifampin care home (3) Severe sepsis: 2nd to LLL pneumonia and MRSA bacteremia/septicemia. See "MRSA bacteremia" above. Sepsis resolved, vitals stable, WBC stable, no fever (4) LLL pneumonia: As seen on CT chest. High likelihood this is due to MRSA. treated with both Ceftaroline and then three days of Vancomycin stop Vancomycin today Day #6 of therapy. Supportive care, BIPAP as needed. ultimately would need 7 days of abx but will have more than enough coverage in treating bacteremia will use Ceftaroline to treat as Daptomycin would not penetrate lungs (5) Acute on chronic respiratory failure with hypoxia and hypercapnia: Acute component 2nd to LLL pneumonia and COPD flare. Chronic - COPD, GEETHA, OHS, etc. Acute component much improved Agree with weaning of steroids. Abx for LLL pneumonia per ID/critical care. patient is stable on 4L NC which she wears chronically slight increase in dyspnea today, some edema, will give extra Bumex (6) Metabolic encephalopathy: Due to sepsis/pneumonia - resolved. Ammonia level was normal. VBGs with hypercarbia but this has slowly improved. Avoid hyperoxia; keep sats low 90s. Avoid narcotics. Keep euglycemic. (7) COPD (chronic obstructive pulmonary disease): with exacerbation. changed to Prednisone 30mg daily Nebs q4h. BIPAP and NC O2. Supportive care. (8) Coronary atherosclerosis of [place] coronary vessel: Resumed asa, plavix, statin. Troponins negative. EKG without ischemic changes. Chest pain is musculoskeletal - reproducible on exam. Consider k-pad. (9) Diastolic CHF: Was volume contracted clinically at admission, then received fluid resuscitation for severe sepsis. mild volume overload today, likely due to all the IV fluids with antibiotics drinking well getting Bumex 2mg every morning give extra dose of Bumex 2mg IV now and follow for response (10) Tobacco use disorder: Offer nicoderm patch if truly still smoking at SNF. (11) Cirrhosis of liver: 2nd to ABDI and/or autoimmune causes. Ammonia level normal. INR stable. LFTs stable. (12) DM type 2 (diabetes mellitus, type 2): continue on Lantus and Novolog SS monitor for hypoglycemia sugars have been stable (13) Hypothyroidism: TSH within the last 2 months wnl. Cont synthroid. (14) Hyponatremia: Due to volume contraction at admission. Resolved, Na 137 today (15) Bullous pemphigoid: Controlled. No active bullae at this time. On chronic prednisone 30mg/day and niacinamide 500mg TID at home Giving stress dose steroids for sepsis and COPD exacerbation Prednisone now down to 30mg (16) Chest pain: Musculoskeletal. Reproducible on exam; EKG w/o ischemic changes; pain is better with position changes will use Toradol and Ultram for pain no pain today (17) Morbid obesity with BMI of 50.0-59.9, adult: BMI 55 (18) Hypokalemia: resolved, up to 4.0 today (19) DVT prophylaxis: lovenox 40mg daily told patient she would NOT be a candidate to return to her actual home in [place] UNLESS she had / caregivers. daughter stated that would never be possible. looking into LTACH, referral made to [facility] feel she would be ready for discharge once blood cultures clear likely not for several more days Subjective patient doing reasonably well today, eating well, no chest wall pain c/o some dyspnea after lunch, requested to have her BIPAP placed reviewed cultures, blood culture from yesterday growing gram positive cocci discussed with Dr. Zamudio, he recommends Daptomycin, Ceftaroline and to add Rifampin updated the patient about this plan discussed that she can go to [facility] once her cultures are clear updated the patient's daughter at the bedside on exam, lungs with some rales in bases, will give extra dose of Bumex this afternoon no fever, on lab work her WBC is normal at 8k Cr continues to be stable at 0.4 and K is 4.0 Review of Systems Review of Systems: All systems reviewed & are unremarkable except as noted in HPI & below Constitutional: + fatigue and + weakness; no fever, no chills and no sweats Respiratory: + cough and + dyspnea; no wheezing Cardiovascular: + edema; no chest pain Gastrointestinal: no abdominal pain, no nausea, no vomiting, no constipation and no diarrhea/loose stools Psychiatric: + depression and + anxiety Physical Exam Constitutional: WD/WN, vitals as above + obese Eyes: PERRL, conjunctivae normal, anicteric sclerae ENMT: external ear and nose normal, oropharynx normal Neck: trachea midline, no thyromegaly Respiratory: normal respiratory effort, lungs clear to auscultation Cardiovascular: RRR, no murmur, no edema Chest (Breasts): Chest: normal inspection of chest (tender to palpation on left side) Gastrointestinal (Abdomen): normal bowel sounds, soft, nontender, no hepatosplenomegaly Musculoskeletal: no cyanosis or clubbing, extremities motor strength 5/5 Spine: + limited thoraco-lumbar ROM (due to pain) Skin: + rash (numerous dry rashes, erythematous), + dry skin and + nails dystrophic Neurologic: patellar DTR's 2+ bilat, sensation intact and PERRL, EOMI, accommodation nl, no face palsy, no dysarthria Psychiatric: Orientation: alert and oriented x 3 Affect: + depressed affect Lymphatic: no cervical or axillary lymphadenopathy Results & Data Vital Signs (Past 12 Hours) Vital Signs Temp Pulse Pulse Resp BP Pulse Ox 05/24/19 11:21 57 L 19 94 05/24/19 11:01 36.6 C 58 L 20 117/68 93 05/24/19 07:22 57 L 19 95 05/24/19 07:20 36.4 C L 57 L 18 99/48 L 95 05/24/19 04:22 36.7 C 54 L 16 127/75 96 05/24/19 03:57 51 L 19 96 05/24/19 03:56 51 L 19 96 Laboratory Results Laboratory Results - last 24 hr 05/23/19 05/23/19 05/23/19 16:29 20:26 20:28 WBC RBC Hgb Hct MCV MCH MCHC RDW Std Deviation RDW Coeff of Ministerio Plt Count MPV Immature Gran % (Auto) Neut % (Auto) Lymph % (Auto) [place] % (Auto) Eos % (Auto) Baso % (Auto) Immature Gran # (Auto) Neut # (Auto) Lymph # (Auto) [place] # (Auto) Eos # (Auto) Baso # (Auto) RBC Morphology APTT PTT Ratio Sodium Potassium Chloride Carbon Dioxide Anion Gap BUN Creatinine Est Cr Clr Drug Dosing Est GFR ( Amer) Est GFR (Non-Af Amer) BUN/Creatinine Ratio Glucose POC Glucose 118 H 353 H* 200 H Calcium 05/23/19 05/23/19 05/24/19 20:37 20:59 05:20 WBC RBC Hgb Hct MCV MCH MCHC RDW Std Deviation RDW Coeff of Ministerio Plt Count MPV Immature Gran % (Auto) Neut % (Auto) Lymph % (Auto) [place] % (Auto) Eos % (Auto) Baso % (Auto) Immature Gran # (Auto) Neut # (Auto) Lymph # (Auto) [place] # (Auto) Eos # (Auto) Baso # (Auto) RBC Morphology APTT 24.0 PTT Ratio 0.9 Sodium Potassium Chloride Carbon Dioxide Anion Gap BUN Creatinine Est Cr Clr Drug Dosing Est GFR ( Amer) Est GFR (Non-Af Amer) BUN/Creatinine Ratio Glucose 228 H POC Glucose 245 H Calcium 05/24/19 05/24/19 05/24/19 05:20 05:20 07:17 WBC 8.86 RBC 3.88 L Hgb 11.9 L Hct 38.1 MCV 98.2 MCH 30.7 MCHC 31.2 L RDW Std Deviation 48.5 H RDW Coeff of Ministerio 13.6 Plt Count 198 MPV 9.4 Immature Gran % (Auto) 6.7 Neut % (Auto) 72.2 Lymph % (Auto) 15.8 [place] % (Auto) 4.2 Eos % (Auto) 0.8 Baso % (Auto) 0.3 Immature Gran # (Auto) 0.59 H Neut # (Auto) 6.40 Lymph # (Auto) 1.40 [place] # (Auto) 0.37 Eos # (Auto) 0.07 Baso # (Auto) 0.03 RBC Morphology Unremarkable APTT PTT Ratio Sodium 137 Potassium 4.0 Chloride 96 L Carbon Dioxide 40 H Anion Gap 1.0 L BUN 24 H Creatinine 0.41 L Est Cr Clr Drug Dosing 210.8 Est GFR ( Amer) 131.1 Est GFR (Non-Af Amer) 113.1 BUN/Creatinine Ratio 58.7 H Glucose 120 H POC Glucose 102 H Calcium 9.5 05/24/19 10:59 WBC RBC Hgb Hct MCV MCH MCHC RDW Std Deviation RDW Coeff of Ministerio Plt Count MPV Immature Gran % (Auto) Neut % (Auto) Lymph % (Auto) [place] % (Auto) Eos % (Auto) Baso % (Auto) Immature Gran # (Auto) Neut # (Auto) Lymph # (Auto) [place] # (Auto) Eos # (Auto) Baso # (Auto) RBC Morphology APTT PTT Ratio Sodium Potassium Chloride Carbon Dioxide Anion Gap BUN Creatinine Est Cr Clr Drug Dosing Est GFR ( Amer) Est GFR (Non-Af Amer) BUN/Creatinine Ratio Glucose POC Glucose 144 H Calcium Microbiology 05/22/19 08:40 Blood Aerobic Blood Culture - Preliminary No growth in Aerobic bottle after 48 hours. 05/22/19 08:40 Blood Anaerobic Blood Culture - Preliminary No growth in Anaerobic bottle after 48 hours. 05/22/19 08:28 Blood Aerobic Blood Culture - Preliminary Gram positive cocci clusters 05/22/19 08:28 Blood Anaerobic Blood Culture - Preliminary No growth in Anaerobic bottle after 48 hours. 05/20/19 09:09 Blood Aerobic Blood Culture - Preliminary Staph aureus MRSA 05/20/19 09:09 Blood Anaerobic Blood Culture - Preliminary No growth in Anaerobic bottle after 48 hours. 05/20/19 09:01 Blood Aerobic Blood Culture - Preliminary Staph aureus MRSA 05/20/19 09:01 Blood Anaerobic Blood Culture - Preliminary No growth in Anaerobic bottle after 48 hours. 05/19/19 08:16 Blood Aerobic Blood Culture - Preliminary Staph aureus MRSA 05/19/19 08:16 Blood Anaerobic Blood Culture - Preliminary No growth in Anaerobic bottle after 48 hours. 05/19/19 08:12 Blood Aerobic Blood Culture - Preliminary Staph aureus MRSA 05/19/19 08:12 Blood Anaerobic Blood Culture - Preliminary No growth in Anaerobic bottle after 48 hours. 05/18/19 04:35 Blood Aerobic Blood Culture - Final Staph aureus MRSA 05/18/19 04:35 Blood Anaerobic Blood Culture - Final Staph aureus MRSA 05/18/19 04:48 Blood Aerobic Blood Culture - Final Staph aureus MRSA 05/18/19 04:48 Blood Anaerobic Blood Culture - Final Staph aureus MRSA Medications Administered Current Inpatient Medications Acetaminophen (Tylenol) 650 mg PO Q4H PRN PRN Reason: Pain or Fever Stop: 06/21/19 07:42 Last Admin: 05/24/19 03:10 Dose: 650 mg Documented by: Al Hydrox/Mg Hydrox/Simethicone (Maalox) 15 ml PO Q6H PRN PRN Reason: Dyspepsia Stop: 06/21/19 07:42 Last Admin: 05/22/19 08:00 Dose: 15 ml Documented by: Albuterol (Duoneb) 3 ml INH Q4R [facility] Stop: 06/17/19 11:59 Last Admin: 05/24/19 11:20 Dose: 3 ml Documented by: Aspirin (Ecotrin Ectab) 81 mg PO DAILY [facility] Stop: 06/17/19 09:57 Last Admin: 05/24/19 07:54 Dose: 81 mg Documented by: Atorvastatin Calcium (Lipitor) 40 mg PO DAILY [facility] Stop: 06/17/19 09:57 Last Admin: 05/24/19 07:54 Dose: 40 mg Documented by: Betamethasone Dipropion Augmented (Diprolene 0.05%) 1 appln TOP Q8 PRN PRN Reason: bullous pemphigoid eruptions Last Admin: 05/18/19 10:46 Dose: 1 appln Documented by: Bumetanide (Bumex) 2 mg PO QAM [facility] Stop: 06/18/19 09:14 Last Admin: 05/24/19 07:54 Dose: 2 mg Documented by: Carvedilol (Coreg) 3.125 mg PO BID [facility] Stop: 06/19/19 08:59 Last Admin: 05/24/19 07:55 Dose: Not Given Documented by: Clopidogrel Bisulfate (Plavix) 75 mg PO DAILY [facility] Stop: 06/17/19 09:57 Last Admin: 05/24/19 07:54 Dose: 75 mg Documented by: Dextrose (Dextrose 50%) 25 - 50 ml IV UD PRN; Protocol PRN Reason: Hypoglycemia Protocol Stop: 06/17/19 11:44 Gabapentin (Neurontin) 100 mg PO TID [facility] Stop: 06/17/19 09:57 Last Admin: 05/24/19 13:47 Dose: 100 mg Documented by: Glucagon (Glucagen) 1 mg SQ UD PRN; Protocol PRN Reason: Hypoglycemia Protocol Stop: 06/17/19 11:44 Glucose (Glucose 40%) 15 - 30 gm PO UD PRN; Protocol PRN Reason: Hypoglycemia Protocol Stop: 06/17/19 11:44 Glucose (Dex4 Glucose) 4 - 8 tabs PO UD PRN; Protocol PRN Reason: Hypoglycemia Protocol Stop: 06/17/19 11:44 Heparin Sodium (Beef Lung) (Heparin Sod 10 Unit/Ml Flush) 5 ml FLUSH PRN PRN PRN Reason: Flush Stop: 06/22/19 23:07 Ceftaroline Fosamil 600 mg/ (Sodium Chloride) 270 mls @ 250 mls/hr IV Q12H [facility]; Protocol Stop: 06/07/19 08:59 Last Infusion: 05/24/19 11:30 Dose: Infused Documented by: Rifampin 300 mg/ Sodium (Chloride) 255 mls @ 167 mls/hr IV Q8H [facility] Stop: 06/07/19 10:29 Last Infusion: 05/24/19 13:47 Dose: Infused Documented by: Daptomycin 725 mg/ Syringe 14.5 mls @ 7.25 mls/min IV Q24H [facility]; Protocol Stop: 06/07/19 11:59 Last Admin: 05/24/19 12:07 Dose: 7.25 mls/min Documented by: Insulin Aspart (Novolog Flexpen) 0 units SC DAILY@0730,1130,2100 [facility] Stop: 06/23/19 07:29 Last Admin: 05/24/19 11:46 Dose: 17 units Documented by: Insulin Aspart (Novolog Flexpen) 0 units SC DAILY@1630 [facility] Stop: 06/23/19 16:29 Insulin Glargine (Lantus Solostar Pen) 50 units SC BID [facility]; Protocol Stop: 06/21/19 09:04 Last Admin: 05/24/19 10:13 Dose: 50 units Documented by: Ketorolac Tromethamine (Toradol) 30 mg IV Q6H PRN PRN Reason: Pain Stop: 05/28/19 11:07 Last Admin: 05/24/19 08:00 Dose: 30 mg Documented by: Levothyroxine Sodium (Synthroid) 200 mcg PO DAILYBB [facility] Stop: 06/17/19 09:57 Last Admin: 05/24/19 05:38 Dose: 200 mcg Documented by: Miscellaneous (Carbohydrates For Hypoglycemia) 15 - 30 gm PO UD PRN PRN Reason: Hypoglycemia Treatment Stop: 06/17/19 11:44 Miscellaneous Information (Consult Glycemic Management Pharmacy) 1 ea N/A UD PRN PRN Reason: Consult Stop: 06/17/19 19:09 Pantoprazole Sodium (Protonix) 40 mg PO DAILY [facility] Stop: 06/17/19 09:57 Last Admin: 05/24/19 07:53 Dose: 40 mg Documented by: Prednisone (Prednisone) 20 mg PO DAILY [facility] Stop: 06/24/19 08:59 Simethicone (Mylicon) 80 mg PO Q6H PRN PRN Reason: Gas or Constipation Stop: 06/21/19 08:39 Last Admin: 05/23/19 10:42 Dose: 80 mg Documented by: Spironolactone (Aldactone) 25 mg PO QAM [facility] Stop: 06/18/19 09:14 Last Admin: 05/24/19 07:54 Dose: 25 mg Documented by: PG Care Time/CCT Total # of Minutes Spent Total Time Spent with Patient: Total time spent is greater than 50% in coordination of care (as documented) at patient's floor/unit and/or counseling patient: (1) LLL pneumonia Pneumonia type: due to unspecified organism Qualified Code(s): J18.1 - Lobar pneumonia, unspecified organism (2) COPD (chronic obstructive pulmonary disease) COPD type: COPD with acute exacerbation Qualified Code(s): J44.1 - Chronic obstructive pulmonary disease with (acute) exacerbation (3) Coronary atherosclerosis of [place] coronary vessel [place] vs. transplanted heart: [place] heart Associated angina: without angina Qualified Code(s): I25.10 - Atherosclerotic heart disease of [place] coronary artery without angina pectoris (4) Diastolic CHF Heart failure chronicity: chronic Qualified Code(s): I50.32 - Chronic diastolic (congestive) heart failure (5) Cirrhosis of liver Hepatic cirrhosis type: other cirrhosis Qualified Code(s): K74.69 - Other cirrhosis of liver (6) DM type 2 (diabetes mellitus, type 2) Diabetes mellitus continuous churn buttermaker insulin use: with care home use Diabetes mellitus complication status: with hyperglycemia Qualified Code(s): E11.65 - Type 2 diabetes mellitus with hyperglycemia; Z79.4 - snf (current) use of insulin (7) Hypothyroidism Hypothyroidism type: acquired Qualified Code(s): E03.9 - Hypothyroidism, unspecified (8) Chest pain Chest pain type: unspecified Qualified Code(s): R07.9 - Chest pain, unspecified
[2019-05-24] MEDS ORDERED: VANCOMYCIN TROUGH ONE (14:30)
[2019-05-25] MEDS: ACETAMINOPHEN 325 MG TAB PO PRN ×2 (02:53→08:11)
[2019-05-25] MEDS: SODIUM CHLORIDE 0.9% IV SCH ×3 (03:14→18:11)
[2019-05-25] MEDS: RIFAMPIN IV SCH ×3 (03:14→18:11)
[2019-05-25] MEDS: ALBUT/IPRATROP 3MG/0.5MG NEB 3 ML VIAL INH SCH ×6 (03:49→23:02)
[2019-05-25] MEDS: LEVOTHYROXINE SODIUM 200 MCG TABLET PO SCH (06:30)
[2019-05-25] MEDS: INSULIN ASPART 100 UNITS/ML 3 ML PEN SC SCH ×4 (07:57→21:21)
[2019-05-25] MEDS: BUMETANIDE 1 MG TAB PO SCH ×3 (07:59→16:36)
[2019-05-25] MEDS: CARVEDILOL 3.125 MG TAB PO SCH ×2 (07:59→20:28)
[2019-05-25] MEDS: SPIRONOLACTONE 25 MG TAB PO SCH (08:00)
[2019-05-25] MEDS: INSULIN GLARGINE SOLOSTAR 100 UNITS/ML 3 ML PEN SC SCH ×2 (08:00→21:18)
[2019-05-25] MEDS: ASPIRIN 81 MG ECTAB PO SCH (08:00)
[2019-05-25] MEDS: GABAPENTIN 100 MG CAP PO SCH ×3 (08:01→20:28)
[2019-05-25] MEDS: CLOPIDOGREL BISULFATE 75 MG TAB PO SCH (08:01)
[2019-05-25] MEDS: ATORVASTATIN 40 MG TAB PO SCH (08:01)
[2019-05-25] MEDS: PANTOprazole 40 MG TAB PO SCH (08:02)
[2019-05-25] MEDS: predniSONE 20 MG TAB PO SCH (08:02)
[2019-05-25 08:38] LABS: Partial Thromboplastin Ratio 0.9; Partial Thromboplastin Time 24.1 Seconds (21.0-31.0)
[2019-05-25] MEDS: KETOROLAC 30 MG/ML VIAL IV PRN (08:55)
--- NOTE | 2019-05-25 10:39 | Pharmacy Report ---
Pharmacy Glycemic Short Note 2 - Date of Service May 25, 2019 - Glycemic Short BSG Results (Last 24 hours): 05/24/19 05/24/19 05/24/19 10:59 16:09 20:32 POC Glucose 144 H 178 H 196 H 05/25/19 07:14 POC Glucose 99 Outpatient Anti-diabetic Regimen: * Insulin glargine 55 units SC BID * Insulin lispro 30 units SC AC * A1c = 7.8 % on 05/19/19 The patient is currently receiving: * Basal insulin: Lantus 50 units every 12 hours * Bolus insulin: Novolog SQ ACHS Goal range: 110-140mg/dL Correction factor: 10mg/dL/unit Carb ratio: 1 unit per 4 grams CHOs consumed with breakfast and lunch; 1 unit per 3 grams CHOs consumed with dinner only Risk Factors for Insulin Resistance: * Steroids: Prednisone 20mg daily (reduced 05/25) * Infection: Persistent MRSA bacteremia 2nd endocarditis and also possible HAP * Diet: T2DM ASSESSMENT: 05/25 * Glycemic control acceptable over last 24 hrs, only 1 BSG greater than 180 * HS BSG improved following the increase in dinner Novolog dose * Prednisone dose reduced to 20mg daily this AM. Would expect some improved insulin sensitivity. * Plan to continue his current insulin doses another 24 hrs, as BSGs near upper end of goal second half of the day yesterday. Insulin doses may not need adjusted down quite yet despite steroid dose reduction, 05/24 * BSGs have been well controlled with the current regimen with the exception of HS hyperglycemia. This has occurred 2 days in a row now, and upon review of prior admissions did occur then as well. Will increase the prandial insulin dose with dinner. * Fasting BSGs at goal again today w/ 100 units of Lantus on board - no change 05/23 * Patient transitioned off insulin drip yesterday afternoon * Fasting BSG 92 this AM w/ 100 units of Lantus on board - will continue the ana e for now * HS BSG elevated yesterday, however other BSGs have been within desired range since transition. Will monitor for post-prandial hyperglycemia today but continue current Novolog orders 05/22 * Glycemic targets met with insulin drip * Patient's insulin infusion rate @4.3 units/hr this AM. Also has 100 units of Lantus on board from yesterday (40 in AM + 60 in PM) * Now that patient is resuming home dose of steroid, will begin transition off insulin drip as the effects of yesterday's Solu-Medrol doses should be dissipating * Reviewed her admission in March, will receiving a prednisone taper. The regimen below is based upon her insulin requirements during that admission on a similar dose of Prednisone. PLAN FOR INPATIENT GLYCEMIC CONTROL: * Basal insulin: Lantus 50 units SQ BID (no change) * Novolog SQ ACHS (no change) * Goal range: 110-140mg/dL * Correction factor: 10mg/dL/unit * Carb ratio: 1 unit per 4 grams CHOs consumed with breakfast and lunch; 1 unit per 3 grams CHOs consumed with dinner only
[2019-05-25] MEDS: CEFTAROLINE FOSAMIL ACETATE 600 MG in SODIUM CHLORIDE 0.9% 250 ML IV SCH ×2 (10:51→20:29)
[2019-05-25] MEDS ORDERED: ALTEPLASE, RECOMBINANT 1 MG/ML 2ML VIAL IV ONE (12:48)
[2019-05-25] MEDS ORDERED: TRAMADOL HCL 50 MG TABLET PO STA (12:56)
[2019-05-25] MEDS: DAPTOmycin 725 MG in SYRINGE 0 ML IV SCH (13:56)
--- NOTE | 2019-05-25 14:49 | Hospitalist Progress Note ---
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 Zamudio on 05/23, will treat with Daptomycin, Ceftaroline and Rifampin will need 6 weeks PICC line placed on 05/22 ultimate plan is for [facility] for the full duration of antibiotics (2) MRSA bacteremia: source - lung (LLL pneumonia) +/- skin given the numerous healing lesions. she had a MRSA furuncle on her left neck that required I/D during previous admission. now with evidence of endocarditis repeat blood cultures on 05/19 and 05/20 and 05/22 all with growth new blood cultures drawn 05/24, no growth at 48 hours as above, will use Ceftaroline, Daptomycin, Rifampin jail (3) Severe sepsis: 2nd to LLL pneumonia and MRSA bacteremia/septicemia. See "MRSA bacteremia" above. Sepsis resolved for the past week, vitals stable, WBC stable, no fever (4) LLL pneumonia: As seen on CT chest. High likelihood this is due to MRSA. treated with both Ceftaroline and then three days of Vancomycin stop Vancomycin today Day #7 of therapy. Supportive care, BIPAP as needed. ultimately would need 7 days of abx but will have more than enough coverage in treating bacteremia will use Ceftaroline to treat as Daptomycin would not penetrate lungs (5) Acute on chronic respiratory failure with hypoxia and hypercapnia: Acute component 2nd to LLL pneumonia and COPD flare. Chronic - COPD, GEETHA, OHS, etc. Acute component much improved Agree with weaning of steroids. Abx for LLL pneumonia per ID/critical care. patient is stable on 4L NC which she wears chronically responded quite well to extra Bumex, diuresed 3 liters for the day, breathing much improved (6) Metabolic encephalopathy: Due to sepsis/pneumonia - resolved. Ammonia level was normal. VBGs with hypercarbia but this has slowly improved. Avoid hyperoxia; keep sats low 90s. Avoid narcotics. Keep euglycemic. (7) COPD (chronic obstructive pulmonary disease): with exacerbation. tapered to Prednisone 20mg daily Nebs q4h. BIPAP and NC O2. Supportive care. (8) Coronary atherosclerosis of [place] coronary vessel: Resumed asa, plavix, statin. Troponins negative. EKG without ischemic changes. Chest pain is musculoskeletal - reproducible on exam. Consider k-pad. (9) Diastolic CHF: Was volume contracted clinically at admission, then received fluid resuscitation for severe sepsis. mild volume overload on 05/24, likely due to all the IV fluids with antibiotics drinking well getting Bumex 2mg every morning great response to extra Bumex 2mg IV in the afternoon on 05/24 will continue to give BID Bumex, responding well and Cr stable (10) Tobacco use disorder: Offer nicoderm patch if truly still smoking at SNF. (11) Cirrhosis of liver: 2nd to ABDI and/or autoimmune causes. Ammonia level normal. INR stable. LFTs stable. (12) DM type 2 (diabetes mellitus, type 2): continue on Lantus and Novolog SS monitor for hypoglycemia sugars have been stable (13) Hypothyroidism: TSH within the last 2 months wnl. Cont synthroid. (14) Hyponatremia: Due to volume contraction at admission. Resolved, Na 137 today (15) Bullous pemphigoid: Controlled. No active bullae at this time. On chronic prednisone 30mg/day and niacinamide 500mg TID at home Giving stress dose steroids for sepsis and COPD exacerbation Prednisone now down to 30mg (16) Chest pain: Musculoskeletal. Reproducible on exam; EKG w/o ischemic changes; pain is better with position changes will use Toradol and Ultram for pain no pain today (17) Morbid obesity with BMI of 50.0-59.9, adult: BMI 55 (18) Hypokalemia: resolved for several days (19) DVT prophylaxis: lovenox 40mg daily told patient she would NOT be a candidate to return to her actual home in [place] UNLESS she had 20/06 caregivers. daughter stated that would never be possible. looking into LTACH, referral made to [facility] feel she would be ready for discharge once blood cultures clear likely not until Tuesday Subjective patient breathing better today after diuresis with extra Bumex excellent response, negative over 3 liters yesterday continues to have excellent UO today had some left sided chest and back pain today, this is ongoing issue, muscular relieved with a dose of Ultram today reviewed labs, stable most recent blood cultures without growth BC on 05/22 grew MRSA, but only one set Review of Systems Review of Systems: All systems reviewed & are unremarkable except as noted in HPI & below Constitutional: + fatigue and + weakness; no fever, no chills and no sweats Respiratory: no cough and no dyspnea Cardiovascular: + edema; no chest pain Musculoskeletal: + back pain Physical Exam Constitutional: WD/WN, vitals as above + obese Eyes: PERRL, conjunctivae normal, anicteric sclerae ENMT: external ear and nose normal, oropharynx normal Neck: trachea midline, no thyromegaly Respiratory: normal respiratory effort, lungs clear to auscultation Cardiovascular: RRR, no murmur, no edema Chest (Breasts): Chest: normal inspection of chest (tender to palpation on left side) Gastrointestinal (Abdomen): normal bowel sounds, soft, nontender, no hepatosplenomegaly Musculoskeletal: no cyanosis or clubbing, extremities motor strength 5/5 Spine: + limited thoraco-lumbar ROM (due to pain) Skin: + rash (numerous dry rashes, erythematous), + dry skin and + nails dystrophic Neurologic: patellar DTR's 2+ bilat, sensation intact and PERRL, EOMI, accommodation nl, no face palsy, no dysarthria Psychiatric: Orientation: alert and oriented x 3 Affect: + depressed affect Lymphatic: no cervical or axillary lymphadenopathy Results & Data Vital Signs (Past 12 Hours) Vital Signs Temp Pulse Pulse Pulse Resp BP Pulse Ox 05/25/19 11:55 94 05/25/19 11:28 36.5 C 56 L 21 116/69 96 05/25/19 11:11 58 L 23 92 05/25/19 11:10 58 L 23 92 05/25/19 07:15 36.7 C 59 L 20 131/81 95 05/25/19 07:00 61 20 94 05/25/19 03:51 55 L 20 98 05/25/19 03:50 55 L 20 98 05/25/19 03:44 36.4 C L 56 L 23 114/72 98 Laboratory Results Laboratory Results - last 24 hr 05/24/19 05/24/19 05/25/19 16:09 20:32 07:14 APTT PTT Ratio POC Glucose 178 H 196 H 99 Total Creatine Kinase 05/25/19 05/25/19 05/25/19 08:11 08:11 11:25 APTT 24.1 PTT Ratio 0.9 POC Glucose 136 H Total Creatine Kinase 27 Microbiology 05/22/19 08:28 Blood Aerobic Blood Culture - Preliminary Staph aureus MRSA 05/22/19 08:28 Blood Anaerobic Blood Culture - Preliminary No growth in Anaerobic bottle after 48 hours. 05/24/19 09:54 Blood Aerobic Blood Culture - Preliminary No growth in Aerobic bottle after 24 hours. 05/24/19 09:54 Blood Anaerobic Blood Culture - Preliminary No growth in Anaerobic bottle after 24 hours. 05/24/19 10:24 Blood Aerobic Blood Culture - Preliminary No growth in Aerobic bottle after 24 hours. 05/24/19 10:24 Blood Anaerobic Blood Culture - Preliminary No growth in Anaerobic bottle after 24 hours. 05/19/19 08:16 Blood Aerobic Blood Culture - Preliminary Staph aureus MRSA 05/19/19 08:16 Blood Anaerobic Blood Culture - Final No growth in Anaerobic bottle after 5 days. 05/19/19 08:12 Blood Aerobic Blood Culture - Preliminary Staph aureus MRSA 05/19/19 08:12 Blood Anaerobic Blood Culture - Final No growth in Anaerobic bottle after 5 days. 05/22/19 08:40 Blood Aerobic Blood Culture - Preliminary No growth in Aerobic bottle after 48 hours. 05/22/19 08:40 Blood Anaerobic Blood Culture - Preliminary No growth in Anaerobic bottle after 48 hours. 05/20/19 09:09 Blood Aerobic Blood Culture - Preliminary Staph aureus MRSA 05/20/19 09:09 Blood Anaerobic Blood Culture - Preliminary No growth in Anaerobic bottle after 48 hours. 05/20/19 09:01 Blood Aerobic Blood Culture - Preliminary Staph aureus MRSA 05/20/19 09:01 Blood Anaerobic Blood Culture - Preliminary No growth in Anaerobic bottle after 48 hours. 05/18/19 04:35 Blood Aerobic Blood Culture - Final Staph aureus MRSA 05/18/19 04:35 Blood Anaerobic Blood Culture - Final Staph aureus MRSA 05/18/19 04:48 Blood Aerobic Blood Culture - Final Staph aureus MRSA 05/18/19 04:48 Blood Anaerobic Blood Culture - Final Staph aureus MRSA Medications Administered Current Inpatient Medications Acetaminophen (Tylenol) 650 mg PO Q4H PRN PRN Reason: Pain or Fever Stop: 06/21/19 07:42 Last Admin: 05/25/19 08:11 Dose: 650 mg Documented by: Al Hydrox/Mg Hydrox/Simethicone (Maalox) 15 ml PO Q6H PRN PRN Reason: Dyspepsia Stop: 06/21/19 07:42 Last Admin: 05/22/19 08:00 Dose: 15 ml Documented by: Albuterol (Duoneb) 3 ml INH Q4R [facility] Stop: 06/17/19 11:59 Last Admin: 05/25/19 11:11 Dose: 3 ml Documented by: Aspirin (Ecotrin Ectab) 81 mg PO DAILY [facility] Stop: 06/17/19 09:57 Last Admin: 05/25/19 08:00 Dose: 81 mg Documented by: Atorvastatin Calcium (Lipitor) 40 mg PO DAILY [facility] Stop: 06/17/19 09:57 Last Admin: 05/25/19 08:01 Dose: 40 mg Documented by: Betamethasone Dipropion Augmented (Diprolene 0.05%) 1 appln TOP Q8 PRN PRN Reason: bullous pemphigoid eruptions Last Admin: 05/18/19 10:46 Dose: 1 appln Documented by: Bumetanide (Bumex) 2 mg PO BID17 [facility] Stop: 06/24/19 08:59 Last Admin: 05/25/19 10:22 Dose: Not Given Documented by: Carvedilol (Coreg) 3.125 mg PO BID [facility] Stop: 06/19/19 08:59 Last Admin: 05/25/19 07:59 Dose: 3.125 mg Documented by: Clopidogrel Bisulfate (Plavix) 75 mg PO DAILY [facility] Stop: 06/17/19 09:57 Last Admin: 05/25/19 08:01 Dose: 75 mg Documented by: Dextrose (Dextrose 50%) 25 - 50 ml IV UD PRN; Protocol PRN Reason: Hypoglycemia Protocol Stop: 06/17/19 11:44 Gabapentin (Neurontin) 100 mg PO TID [facility] Stop: 06/17/19 09:57 Last Admin: 05/25/19 13:23 Dose: 100 mg Documented by: Glucagon (Glucagen) 1 mg SQ UD PRN; Protocol PRN Reason: Hypoglycemia Protocol Stop: 06/17/19 11:44 Glucose (Glucose 40%) 15 - 30 gm PO UD PRN; Protocol PRN Reason: Hypoglycemia Protocol Stop: 06/17/19 11:44 Glucose (Dex4 Glucose) 4 - 8 tabs PO UD PRN; Protocol PRN Reason: Hypoglycemia Protocol Stop: 06/17/19 11:44 Heparin Sodium (Beef Lung) (Heparin Sod 10 Unit/Ml Flush) 5 ml FLUSH PRN PRN PRN Reason: Flush Stop: 06/22/19 23:07 Ceftaroline Fosamil 600 mg/ (Sodium Chloride) 270 mls @ 250 mls/hr IV Q12H [facility]; Protocol Stop: 06/07/19 08:59 Last Infusion: 05/25/19 12:02 Dose: Infused Documented by: Rifampin 300 mg/ Sodium (Chloride) 255 mls @ 167 mls/hr IV Q8H [facility] Stop: 06/07/19 10:29 Last Infusion: 05/25/19 14:00 Dose: Infused Documented by: Daptomycin 725 mg/ Syringe 14.5 mls @ 7.25 mls/min IV Q24H [facility]; Protocol Stop: 06/07/19 11:59 Last Admin: 05/25/19 13:56 Dose: 7.25 mls/min Documented by: Insulin Aspart (Novolog Flexpen) 0 units SC DAILY@0730,1130,2100 [facility] Stop: 06/23/19 07:29 Last Admin: 05/25/19 12:03 Dose: 18 units Documented by: Insulin Aspart (Novolog Flexpen) 0 units SC DAILY@1630 [facility] Stop: 06/23/19 16:29 Last Admin: 05/24/19 17:17 Dose: 24 units Documented by: Insulin Glargine (Lantus Solostar Pen) 50 units SC BID [facility]; Protocol Stop: 06/21/19 09:04 Last Admin: 05/25/19 08:00 Dose: 50 units Documented by: Ketorolac Tromethamine (Toradol) 30 mg IV Q6H PRN PRN Reason: Pain Stop: 05/28/19 11:07 Last Admin: 05/25/19 08:55 Dose: 30 mg Documented by: Levothyroxine Sodium (Synthroid) 200 mcg PO DAILYBB [facility] Stop: 06/17/19 09:57 Last Admin: 05/25/19 06:30 Dose: 200 mcg Documented by: Miscellaneous (Carbohydrates For Hypoglycemia) 15 - 30 gm PO UD PRN PRN Reason: Hypoglycemia Treatment Stop: 06/17/19 11:44 Miscellaneous Information (Consult Glycemic Management Pharmacy) 1 ea N/A UD PRN PRN Reason: Consult Stop: 06/17/19 19:09 Pantoprazole Sodium (Protonix) 40 mg PO DAILY [facility] Stop: 06/17/19 09:57 Last Admin: 05/25/19 08:02 Dose: 40 mg Documented by: Prednisone (Prednisone) 20 mg PO DAILY [facility] Stop: 06/24/19 08:59 Last Admin: 05/25/19 08:02 Dose: 20 mg Documented by: Simethicone (Mylicon) 80 mg PO Q6H PRN PRN Reason: Gas or Constipation Stop: 06/21/19 08:39 Last Admin: 05/23/19 10:42 Dose: 80 mg Documented by: Spironolactone (Aldactone) 25 mg PO QAM [facility] Stop: 06/18/19 09:14 Last Admin: 05/25/19 08:00 Dose: 25 mg Documented by: Tramadol HCl (Ultram) 50 mg PO Q4H PRN PRN Reason: Pain Stop: 06/24/19 16:59 PG Care Time/CCT Total # of Minutes Spent Total Time Spent with Patient: Total time spent is greater than 50% in coordination of care (as documented) at patient's floor/unit and/or counseling patient: (1) Diastolic CHF Heart failure chronicity: chronic Qualified Code(s): I50.32 - Chronic diastolic (congestive) heart failure (2) DM type 2 (diabetes mellitus, type 2) Diabetes mellitus complication status: with hyperglycemia Diabetes mellitus 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 transplanted heart: [place] heart Qualified Code(s): I25.10 - Atherosclerotic heart disease of [place] coronary artery without angina pectoris (6) COPD (chronic obstructive pulmonary disease) COPD type: COPD with acute exacerbation Qualified Code(s): J44.1 - Chronic obstructive pulmonary disease with (acute) exacerbation (7) LLL pneumonia Pneumonia type: due to unspecified organism Qualified Code(s): J18.1 - Lobar pneumonia, unspecified organism (8) Chest pain Chest pain type: unspecified Qualified Code(s): R07.9 - Chest pain, unspecified
--- NOTE | 2019-05-25 16:37 | Infectious Disease Progress Nt ---
Date of Service May 25, 2019 Assessment & Plan (1) MRSA bacteremia: Patient with MRSA endocarditis with pneumonia with persistently positive blood cultures. As discussed, daptomycin substituted for vancomycin and rifampin added. Follow-up blood cultures are no growth to date. We will con tinue present antibiotics. Monitor liver enzymes while on rifampin. Will follow. (2) LLL pneumonia: Subjective Patient seen in follow-up for MRSA sepsis with endocarditis of pneumonia. Breathing slightly better today, cough slightly improved. Blood culture still growing staph. Review of Systems Review of Systems: All systems reviewed & are unremarkable except as noted in HPI & below Physical Exam Constitutional: WD/WN, vitals as above + morbidly obese and comfortable; no acute distress Eyes: PERRL, conjunctivae normal, anicteric sclerae ENMT: external ear and nose normal, oropharynx normal Neck: trachea midline, no thyromegaly neck nontender Respiratory: normal percussion; no respiratory distress and does not use accessory muscles Auscultation: + rales (Left-sided) Cardiovascular: Rate/Rhythm: regular rate and regular rhythm Heart Sounds: normal S1 and normal S2; no gallop, no murmur and no cardiac rub Vessels: normal peripheral pulses; no JVD Gastrointestinal (Abdomen): normal bowel sounds, soft, nontender, no hepa tosplenomegaly Musculoskeletal: no cyanosis or clubbing, extremities motor strength 5/5 Spine: thoracic spine normal to inspection and lumbar spine normal to inspection; no cervical spinal tenderness Skin: no rashes, warm and dry normal turgor; no lesions Neurologic: patellar DTR's 2+ bilat, sensation intact no focal motor deficits Psychiatric: A+Ox3, euthymic affect Orientation: cooperative Lymphatic: no cervical or axillary lymphadenopathy no inguinal lymphadenopathy Results & Data Vital Signs (Past 12 Hours) Vital Signs Temp Pulse Pulse Pulse Resp BP Pulse Ox 05/25/19 15:32 57 L 24 94 05/25/19 15:30 57 L 24 94 05/25/19 15:08 36.4 C L 58 L 21 139/72 94 05/25/19 11:55 94 05/25/19 11:28 36.5 C 56 L 21 116/69 96 05/25/19 11:11 58 L 23 92 05/25/19 11:10 58 L 23 92 05/25/19 07:15 36.7 C 59 L 20 131/81 95 05/25/19 07:00 61 20 94 Laboratory Results Cardiac Enzymes 05/25/19 Range/Units 08:11 Total Creatine Kinase 27 (26-192) U/L Diagnostic Findings Microbiology 05/20/19 09:09 Blood Aerobic Blood Culture - Preliminary Staph aureus MRSA 05/20/19 09:09 Blood Anaerobic Blood Culture - Final No growth in Anaerobic bottle after 5 days. 05/20/19 09:01 Blood Aerobic Blood Culture - Preliminary Staph aureus MRSA 05/20/19 09:01 Blood Anaerobic Blood Culture - Final No growth in Anaerobic bottle after 5 days. 05/22/19 08:28 Blood Aerobic Blood Culture - Preliminary Staph aureus MRSA 05/22/19 08:28 Blood Anaerobic Blood Culture - Preliminary No growth in Anaerobic bottle after 48 hours. 05/24/19 09:54 Blood Aerobic Blood Culture - Preliminary No growth in Aerobic bottle after 24 hours. 05/24/19 09:54 Blood Anaerobic Blood Culture - Preliminary No growth in Anaerobic bottle after 24 hours. 05/24/19 10:24 Blood Aerobic Blood Culture - Preliminary No growth in Aerobic bottle after 24 hours. 05/24/19 10:24 Blood Anaerobic Blood Culture - Preliminary No growth in Anaerobic bottle after 24 hours. 05/19/19 08:16 Blood Aerobic Blood Culture - Preliminary Staph aureus MRSA 05/19/19 08:16 Blood Anaerobic Blood Culture - Final No growth in Anaerobic bottle after 5 days. 05/19/19 08:12 Blood Aerobic Blood Culture - Preliminary Staph aureus MRSA 05/19/19 08:12 Blood Anaerobic Blood Culture - Final No growth in Anaerobic bottle after 5 days. 05/22/19 08:40 Blood Aerobic Blood Culture - Preliminary No growth in Aerobic bottle after 48 hours. 05/22/19 08:40 Blood Anaerobic Blood Culture - Preliminary No growth in Anaerobic bottle after 48 hours. 05/18/19 04:35 Blood Aerobic Blood Culture - Final Staph aureus MRSA 05/18/19 04:35 Blood Anaerobic Blood Culture - Final Staph aureus MRSA 05/18/19 04:48 Blood Aerobic Blood Culture - Final Staph aureus MRSA 05/18/19 04:48 Blood Anaerobic Blood Culture - Final Staph aureus MRSA (1) LLL pneumonia Pneumonia type: due to unspecified organism Qualified Code(s): J18.1 - Lobar pneumonia, unspecified organism
[2019-05-26] MEDS: TRAMADOL HCL 50 MG TABLET PO PRN ×2 (01:22→14:50)
[2019-05-26] MEDS: SODIUM CHLORIDE 0.9% IV SCH ×3 (02:12→18:33)
[2019-05-26] MEDS: RIFAMPIN IV SCH ×3 (02:12→18:33)
[2019-05-26] MEDS: KETOROLAC 30 MG/ML VIAL IV PRN (03:12)
[2019-05-26] MEDS: ACETAMINOPHEN 325 MG TAB PO PRN (03:13)
[2019-05-26] MEDS: ALBUT/IPRATROP 3MG/0.5MG NEB 3 ML VIAL INH SCH ×6 (03:58→23:26)
[2019-05-26] MEDS: LEVOTHYROXINE SODIUM 200 MCG TABLET PO SCH (05:59)
[2019-05-26 06:41] LABS: Basophils # (auto) 0.01 K/uL (0-0.2); Basophils % (auto) 0.1 %; Eosinophils # (auto) 0.05 K/uL (0-0.5); Eosinophils % (auto) 0.4 %; Hematocrit (blood only) 37.3 % (37-47); Hemoglobin 11.7 g/dL (12.0-16.0); Immature Granulocytes # (auto) 0.28 K/uL (0.00-0.02); Immature Granulocytes % (auto) 2.2 %; Lymphocytes # (auto) 1.87 K/uL (1.2-3.4); Mean Corpuscular Hgb Conc 31.4 g/dL (32-36); Mean Corpuscular Volume 97.6 fL (80-100); Mean Platelet Volume 9.3 fL (7.4-10.4); Monocytes # (auto) 0.59 K/uL (0.11-0.59); Monocytes % (auto) 4.7 %; Neutrophils # (auto) 9.69 K/uL (1.4-6.5); Neutrophils % (auto) 77.6 %; Platelet Count 203 K/uL (130-400); RDW Coefficient of Variation 13.7 % (11.5-14.5); RDW Standard Deviation 49.1 fL (36.4-46.3); Red Blood Count 3.82 M/uL (4.2-5.4); White Blood Count 12.49 K/uL (4.8-10.8)
[2019-05-26 06:51] LABS: Partial Thromboplastin Ratio 0.9; Partial Thromboplastin Time 24.7 Seconds (21.0-31.0)
[2019-05-26 07:22] LABS: BUN Creatinine Ratio 38.6 (10-20); Calcium 9.1 mg/dl (8.5-10.1); Creatinine Clr Calc Pharmacy 144.8 ml/min; Est GFR (African American) 116.3; Est GFR (Non-African American) 100.3; Potassium 3.4 mmol/L (3.5-5.1)
[2019-05-26] MEDS: INSULIN GLARGINE SOLOSTAR 100 UNITS/ML 3 ML PEN SC SCH ×2 (08:30→20:30)
[2019-05-26] MEDS: INSULIN ASPART 100 UNITS/ML 3 ML PEN SC SCH ×4 (08:31→20:37)
--- NOTE | 2019-05-26 09:12 | Pharmacy Report ---
Pharmacy Glycemic Short Note 2 - Date of Service May 26, 2019 - Glycemic Short BSG Results (Last 24 hours): 05/25/19 05/25/19 05/25/19 11:25 16:18 20:43 Glucose POC Glucose 136 H 167 H 143 H 05/26/19 05/26/19 05:48 07:47 Glucose 79 POC Glucose 110 H Outpatient Anti-diabetic Regimen: * Insulin glargine 55 units SC BID * Insulin lispro 30 units SC AC * A1c = 7.8 % on 05/19/19 The patient is currently receiving: * Basal insulin: Lantus 50 units every 12 hours * Bolus insulin: Novolog SQ ACHS Goal range: 110-140mg/dL Correction factor: 10mg/dL/unit Carb ratio: 1 unit per 4 grams CHOs consumed with breakfast and lunch; 1 unit per 3 grams CHOs consumed with dinner only Risk Factors for Insulin Resistance: * Steroids: Prednisone 20mg daily (reduced 05/25) * Infection: Persistent MRSA bacteremia 2nd endocarditis and also possible HAP * Diet: T2DM ASSESSMENT: 05/26 * Dilia jang 158 units of insulin yesterday (100 of this being basal) * Fasting BSG = 79 mg/dL on PRP. Will decrease basal dose by 10% to prevent hypoglycemia with reduced prednisone dose. * Postprandial BSGs acceptable for the most part. HS BSG was improved with tightened CR at dinner but dinner BSG also slightly high so I would like to have her receive more coverage with lunch as well. 05/25 * Glycemic control acceptable over last 24 hrs, only 1 BSG greater than 180 * HS BSG improved following the increase in dinner Novolog dose * Prednisone dose reduced to 20mg daily this AM. Would expect some improved insulin sensitivity. * Plan to continue his current insulin doses another 24 hrs, as BSGs near upper end of goal second half of the day yesterday. Insulin doses may not need adjusted down quite yet despite steroid dose reduction, 05/24 * BSGs have been well controlled with the current regimen with the exception of HS hyperglycemia. This has occurred 2 days in a row now, and upon review of prior admissions did occur then as well. Will increase the prandial insulin dose with dinner. * Fasting BSGs at goal again today w/ 100 units of Lantus on board - no change 05/23 * Patient transitioned off insulin drip yesterday afternoon * Fasting BSG 92 this AM w/ 100 units of Lantus on board - will continue the same for now * HS BSG elevated yesterday, however other BSGs have been within desired range since transition. Will monitor for post-prandial hyperglycemia today but continue current Novolog orders 05/22 * Glycemic targets met with insulin drip * Patient's insulin infusion rate @4.3 units/hr this AM. Also has 100 units of Lantus on board from yesterday (40 in AM + 60 in PM) * Now that patient is resuming home dose of steroid, will begin transition off insulin drip as the effects of yesterday's Solu-Medrol doses should be dissipating * Reviewed her admission in March, will receiving a prednisone taper. The regimen below is based upon her insulin requirements during that admission on a similar dose of Prednisone. PLAN FOR INPATIENT GLYCEMIC CONTROL: * Basal insulin: Lantus 45 units SQ BID (decrease 10%) * Novolog SQ ACHS (tighten CR with lunch) * Goal range: 110-140mg/dL * Correction factor: 10mg/dL/unit * Carb ratio: 1 unit per 4 grams CHOs consumed with breakfast; 1 unit per 3 grams CHOs consumed with lunch and dinner
[2019-05-26] MEDS: CEFTAROLINE FOSAMIL ACETATE 600 MG in SODIUM CHLORIDE 0.9% 250 ML IV SCH ×2 (09:37→20:19)
[2019-05-26] MEDS: BUMETANIDE 1 MG TAB PO SCH ×2 (09:53→17:44)
[2019-05-26] MEDS: SPIRONOLACTONE 25 MG TAB PO SCH (09:53)
[2019-05-26] MEDS: acetaZOLAMIDE 250 MG TAB PO SCH ×2 (09:54→17:45)
[2019-05-26] MEDS: ASPIRIN 81 MG ECTAB PO SCH (09:54)
[2019-05-26] MEDS: GABAPENTIN 100 MG CAP PO SCH ×3 (09:55→20:27)
[2019-05-26] MEDS: CLOPIDOGREL BISULFATE 75 MG TAB PO SCH (09:55)
[2019-05-26] MEDS: ATORVASTATIN 40 MG TAB PO SCH (09:55)
[2019-05-26] MEDS: PANTOprazole 40 MG TAB PO SCH (09:56)
[2019-05-26] MEDS: predniSONE 20 MG TAB PO SCH (09:56)
[2019-05-26] MEDS: CARVEDILOL 3.125 MG TAB PO SCH ×2 (09:58→20:28)
[2019-05-26] MEDS: DAPTOmycin 725 MG in SYRINGE 0 ML IV SCH (12:49)
[2019-05-26] MEDS ORDERED: SODIUM CHLORIDE 0.65% NA SOLN 45 ML (OCEAN) PRN (14:17)
--- NOTE | 2019-05-26 14:42 | Hospitalist Progress Note ---
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 Zamudio on 05/23, will treat with Daptomycin, Ceftaroline and Rifampin will need 6 weeks PICC line placed on 05/22 ultimate plan is for [facility] for the full duration of antibiotics (2) MRSA bacteremia: source - lung (LLL pneumonia) +/- skin given the numerous healing lesions. she had a MRSA furuncle on her left neck that required I/D during previous admission. now with evidence of endocarditis repeat blood cultures on 05/19 and 05/20 and 05/22 all with growth, MRSA new blood cultures drawn 05/24, no growth at 48 hours as above, will use Ceftaroline, Daptomycin, Rifampin terminal superintendent (3) Severe sepsis: 2nd to LLL pneumonia and MRSA bacteremia/septicemia. See "MRSA bacteremia" above. Sepsis resolved for the past week, vitals stable, WBC stable, no fever (4) LLL pneumonia: As seen on CT chest. High likelihood this is due to MRSA. treated with both Ceftaroline and then three days of Vancomycin stop Vancomycin today completed 7 days of treatment for the pneumonia, further antibiotics would be treating the bacteremia/endocarditis Supportive care, BIPAP as needed. (5) Acute on chronic respiratory failure with hypoxia and hypercapnia: Acute component 2nd to LLL pneumonia and COPD flare. Chronic - COPD, GEETHA, OHS, etc. Acute component much improved Agree with weaning of steroids. Abx for LLL pneumonia per ID/critical care. patient is stable on 4L NC which she wears chronically responded quite well to extra Bumex, diuresed 3 liters each of the past two days (6) Metabolic encephalopathy: Due to sepsis/pneumonia - resolved. Ammonia level was normal. VBGs with hypercarbia but this has slowly improved. Avoid hyperoxia; keep sats low 90s. Avoid narcotics. Keep euglycemic. (7) COPD (chronic obstructive pulmonary disease): with exacerbation. tapered to Prednisone 20mg daily likely down to 10mg tomorrow Nebs q4h. BIPAP and NC O2. Supportive care. (8) Coronary atherosclerosis of [place] coronary vessel: Resumed asa, plavix, statin. Troponins negative. EKG without ischemic changes. Chest pain is musculoskeletal - reproducible on exam. Consider k-pad. (9) Diastolic CHF: Was volume contracted clinically at admission, then received fluid resuscitation for severe sepsis. mild volume overload on 05/24, likely due to all the IV fluids with antibiotics drinking well significant diuresis, 6 liters negative, the past two days on Bumex 2mg BID suspect she could tolerate this dose chronically as her Cr is stable and she has more fluids to give HCO3 up at 44 today, add some Diamox for 1-2 days could be a sign of volume contraction but also could be compensation for her respiratory acidosis (10) Tobacco use disorder: Offer nicoderm patch if truly still smoking at SNF. (11) Cirrhosis of liver: 2nd to ABDI and/or autoimmune causes. Ammonia level normal. INR stable. LFTs stable. (12) DM type 2 (diabetes mellitus, type 2): continue on Lantus and Novolog SS monitor for hypoglycemia sugars have been stable (13) Hypothyroidism: TSH within the last 2 months wnl. Cont synthroid. (14) Hyponatremia: Due to volume contraction at admission. Resolved, Na 137 today (15) Bullous pemphigoid: Controlled. No active bullae at this time. On chronic prednisone 30mg/day and niacinamide 500mg TID at home Giving stress dose steroids for sepsis and COPD exacerbation Prednisone now down to 30mg (16) Chest pain: Musculoskeletal. Reproducible on exam; EKG w/o ischemic changes; pain is better with position changes will use Toradol and Ultram for pain no pain today (17) Morbid obesity with BMI of 50.0-59.9, adult: BMI 55 (18) Hypokalemia: resolved for several days (19) DVT prophylaxis: lovenox 40mg daily told patient she would NOT be a candidate to return to her actual home in [place] UNLESS she had 20/06 caregivers. daughter stated that would never be possible. looking into LTACH, referral made to [facility] feel she would be ready for discharge once blood cultures clear likely not until Tuesday Subjective patient much more alert today, breathing easy, no distress at all ate breakfast and lunch, good appetite watching TV, actually smiling and laughing at times said that she moved her bowels yesterday reviewed labs, Cr is stable, HCO3 elevated at 44 WBC is 12k but no fever, Hb stable at 11.7 Review of Systems Review of Systems: All systems reviewed & are unremarkable except as noted in HPI & below Constitutional: + fatigue and + weakness; no fever, no chills and no sweats Respiratory: no cough and no dyspnea Cardiovascular: + edema (improving); no chest pain Gastrointestinal: no abdominal pain, no nausea, no vomiting, no constipation and no diarrhea/loose stools Musculoskeletal: + muscle weakness (generalized, cannot transfer independently) Integumentary: + rash Physical Exam Constitutional: WD/WN, vitals as above + obese Eyes: PERRL, conjunctivae normal, anicteric sclerae ENMT: external ear and nose normal, oropharynx normal Neck: trachea midline, no thyromegaly Respiratory: normal respiratory effort, lungs clear to auscultation Cardiovascular: Rate/Rhythm: regular rate and regular rhythm Heart Sounds: normal S1 and normal S2; no murmur Vessels: no JVD Extremities: + edema (improving) Chest (Breasts): Chest: normal inspection of chest (tender to palpation on left side) Gastrointestinal (Abdomen): normal bowel sounds, soft, nontender, no hepatosplenomegaly Musculoskeletal: no cyanosis or clubbing, extremities motor strength 5/5 Spine: + limited thoraco-lumbar ROM (due to pain) Skin: + rash (numerous dry rashes, erythematous), + dry skin and + nails dystrophic Neurologic: patellar DTR's 2+ bilat, sensation intact and PERRL, EOMI, accommodation nl, no face palsy, no dysarthria Psychiatric: Orientation: alert and oriented x 3 Affect: + depressed affect Lymphatic: no cervical or axillary lymphadenopathy Results & Data Vital Signs (Past 12 Hours) Vital Signs Temp Pulse Pulse Resp BP Pulse Ox 05/26/19 11:18 60 18 93 05/26/19 10:00 60 111/70 05/26/19 07:35 67 18 94 05/26/19 06:53 36.8 C 57 L 18 110/72 95 05/26/19 03:59 54 L 18 94 05/26/19 03:12 36.7 C 59 L 22 101/56 L 93 Laboratory Results Laboratory Results - last 24 hr 05/25/19 05/25/19 05/26/19 16:18 20:43 05:48 WBC RBC Hgb Hct MCV MCH MCHC RDW Std Deviation RDW Coeff of Ministerio Plt Count MPV Immature Gran % (Auto) Neut % (Auto) Lymph % (Auto) [place] % (Auto) Eos % (Auto) Baso % (Auto) Immature Gran # (Auto) Neut # (Auto) Lymph # (Auto) [place] # (Auto) Eos # (Auto) Baso # (Auto) APTT 24.7 PTT Ratio 0.9 Sodium Potassium Chloride Carbon Dioxide Anion Gap BUN Creatinine Est Cr Clr Drug Dosing Est GFR ( Amer) Est GFR (Non-Af Amer) BUN/Creatinine Ratio Glucose POC Glucose 167 H 143 H Calcium 05/26/19 05/26/19 05/26/19 05:48 05:48 07:47 WBC 12.49 H RBC 3.82 L Hgb 11.7 L Hct 37.3 MCV 97.6 MCH 30.6 MCHC 31.4 L RDW Std Deviation 49.1 H RDW Coeff of Ministerio 13.7 Plt Count 203 MPV 9.3 Immature Gran % (Auto) 2.2 Neut % (Auto) 77.6 Lymph % (Auto) 15.0 [place] % (Auto) 4.7 Eos % (Auto) 0.4 Baso % (Auto) 0.1 Immature Gran # (Auto) 0.28 H Neut # (Auto) 9.69 H Lymph # (Auto) 1.87 [place] # (Auto) 0.59 Eos # (Auto) 0.05 Baso # (Auto) 0.01 APTT PTT Ratio Sodium 135 L Potassium 3.4 L Chloride 87 L Carbon Dioxide 44 H* Anion Gap 4.0 BUN 23 H Creatinine 0.59 L Est Cr Clr Drug Dosing 144.8 Est GFR ( Amer) 116.3 Est GFR (Non-Af Amer) 100.3 BUN/Creatinine Ratio 38.6 H Glucose 79 POC Glucose 110 H Calcium 9.1 05/26/19 11:48 WBC RBC Hgb Hct MCV MCH MCHC RDW Std Deviation RDW Coeff of Ministerio Plt Count MPV Immature Gran % (Auto) Neut % (Auto) Lymph % (Auto) [place] % (Auto) Eos % (Auto) Baso % (Auto) Immature Gran # (Auto) Neut # (Auto) Lymph # (Auto) [place] # (Auto) Eos # (Auto) Baso # (Auto) APTT PTT Ratio Sodium Potassium Chloride Carbon Dioxide Anion Gap BUN Creatinine Est Cr Clr Drug Dosing Est GFR ( Amer) Est GFR (Non-Af Amer) BUN/Creatinine Ratio Glucose POC Glucose 115 H Calcium Medications Administered Current Inpatient Medications Acetaminophen (Tylenol) 650 mg PO Q4H PRN PRN Reason: Pain or Fever Stop: 06/21/19 07:42 Last Admin: 05/26/19 03:13 Dose: 650 mg Documented by: Acetazolamide (Diamox) 250 mg PO BID17 [facility] Stop: 06/25/19 08:59 Last Admin: 05/26/19 09:54 Dose: 250 mg Documented by: Al Hydrox/Mg Hydrox/Simethicone (Maalox) 15 ml PO Q6H PRN PRN Reason: Dyspepsia Stop: 06/21/19 07:42 Last Admin: 05/22/19 08:00 Dose: 15 ml Documented by: Albuterol (Duoneb) 3 ml INH Q4R [facility] Stop: 06/17/19 11:59 Last Admin: 05/26/19 11:17 Dose: 3 ml Documented by: Aspirin (Ecotrin Ectab) 81 mg PO DAILY [facility] Stop: 06/17/19 09:57 Last Admin: 05/26/19 09:54 Dose: 81 mg Documented by: Atorvastatin Calcium (Lipitor) 40 mg PO DAILY [facility] Stop: 06/17/19 09:57 Last Admin: 05/26/19 09:55 Dose: 40 mg Documented by: Betamethasone Dipropion Augmented (Diprolene 0.05%) 1 appln TOP Q8 PRN PRN Reason: bullous pemphigoid eruptions Last Admin: 05/18/19 10:46 Dose: 1 appln Documented by: Bumetanide (Bumex) 2 mg PO BID17 [facility] Stop: 06/24/19 08:59 Last Admin: 05/26/19 09:53 Dose: 2 mg Documented by: Carvedilol (Coreg) 3.125 mg PO BID [facility] Stop: 06/19/19 08:59 Last Admin: 05/26/19 09:58 Dose: 3.125 mg Documented by: Clopidogrel Bisulfate (Plavix) 75 mg PO DAILY [facility] Stop: 06/17/19 09:57 Last Admin: 05/26/19 09:55 Dose: 75 mg Documented by: Dextrose (Dextrose 50%) 25 - 50 ml IV UD PRN; Protocol PRN Reason: Hypoglycemia Protocol Stop: 06/17/19 11:44 Gabapentin (Neurontin) 100 mg PO TID [facility] Stop: 06/17/19 09:57 Last Admin: 05/26/19 09:55 Dose: 100 mg Documented by: Glucagon (Glucagen) 1 mg SQ UD PRN; Protocol PRN Reason: Hypoglycemia Protocol Stop: 06/17/19 11:44 Glucose (Glucose 40%) 15 - 30 gm PO UD PRN; Protocol PRN Reason: Hypoglycemia Protocol Stop: 06/17/19 11:44 Glucose (Dex4 Glucose) 4 - 8 tabs PO UD PRN; Protocol PRN Reason: Hypoglycemia Protocol Stop: 06/17/19 11:44 Heparin Sodium (Beef Lung) (Heparin Sod 10 Unit/Ml Flush) 5 ml FLUSH PRN PRN PRN Reason: Flush Stop: 06/22/19 23:07 Last Admin: 05/26/19 12:50 Dose: 5 ml Documented by: Ceftaroline Fosamil 600 mg/ (Sodium Chloride) 270 mls @ 250 mls/hr IV Q12H [facility]; Protocol Stop: 06/07/19 08:59 Last Infusion: 05/26/19 10:45 Dose: Infused Documented by: Rifampin 300 mg/ Sodium (Chloride) 255 mls @ 167 mls/hr IV Q8H [facility] Stop: 06/07/19 10:29 Last Infusion: 05/26/19 12:35 Dose: Infused Documented by: Daptomycin 725 mg/ Syringe 14.5 mls @ 7.25 mls/min IV Q24H [facility]; Protocol Stop: 06/07/19 11:59 Last Admin: 05/26/19 12:49 Dose: 7.25 mls/min Documented by: Insulin Aspart (Novolog Flexpen) 0 units SC DAILY@0730,2100 [facility] Stop: 06/25/19 20:59 Insulin Aspart (Novolog Flexpen) 0 units SC DAILY@1130,1630 [facility] Stop: 06/25/19 11:29 Last Admin: 05/26/19 12:58 Dose: 12 units Documented by: Insulin Glargine (Lantus Solostar Pen) 45 units SC BID [facility]; Protocol Stop: 06/25/19 08:59 Last Admin: 05/26/19 08:30 Dose: 45 units Documented by: Ketorolac Tromethamine (Toradol) 30 mg IV Q6H PRN PRN Reason: Pain Stop: 05/28/19 11:07 Last Admin: 05/26/19 03:12 Dose: 30 mg Documented by: Levothyroxine Sodium (Synthroid) 200 mcg PO DAILYBB [facility] Stop: 06/17/19 09:57 Last Admin: 05/26/19 05:59 Dose: 200 mcg Documented by: Miscellaneous (Carbohydrates For Hypoglycemia) 15 - 30 gm PO UD PRN PRN Reason: Hypoglycemia Treatment Stop: 06/17/19 11:44 Miscellaneous Information (Consult Glycemic Management Pharmacy) 1 ea N/A UD PRN PRN Reason: Consult Stop: 06/17/19 19:09 Pantoprazole Sodium (Protonix) 40 mg PO DAILY [facility] Stop: 06/17/19 09:57 Last Admin: 05/26/19 09:56 Dose: 40 mg Documented by: Prednisone (Prednisone) 20 mg PO DAILY [facility] Stop: 06/24/19 08:59 Last Admin: 05/26/19 09:56 Dose: 20 mg Documented by: Simethicone (Mylicon) 80 mg PO Q6H PRN PRN Reason: Gas or Constipation Stop: 06/21/19 08:39 Last Admin: 05/23/19 10:42 Dose: 80 mg Documented by: Sodium Chloride ([place] Nasal) 1 sprays NA PRN PRN PRN Reason: Dryness Stop: 06/25/19 14:16 Spironolactone (Aldactone) 25 mg PO QAM [facility] Stop: 06/18/19 09:14 Last Admin: 05/26/19 09:53 Dose: 25 mg Documented by: Tramadol HCl (Ultram) 50 mg PO Q4H PRN PRN Reason: Pain Stop: 06/24/19 16:59 Last Admin: 05/26/19 01:22 Dose: 50 mg Documented by: PG Care Time/CCT Total # of Minutes Spent Total Time Spent with Patient: Total time spent is greater than 50% in coordination of care (as documented) at patient's floor/unit and/or counseling patient: (1) LLL pneumonia Pneumonia type: due to unspecified organism Qualified Code(s): J18.1 - Lobar pneumonia, unspecified organism (2) COPD (chronic obstructive pulmonary disease) COPD type: COPD with acute exacerbation Qualified Code(s): J44.1 - Chronic obstructive pulmonary disease with (acute) exacerbation (3) Coronary atherosclerosis of [place] coronary vessel [place] vs. transplanted heart: [place] heart Associated angina: without angina Qualified Code(s): I25.10 - Atherosclerotic heart disease of [place] coronary artery without angina pectoris (4) Diastolic CHF Heart failure chronicity: chronic Qualified Code(s): I50.32 - Chronic rob[place] tolic (congestive) heart failure (5) Cirrhosis of liver Hepatic cirrhosis type: other cirrhosis Qualified Code(s): K74.69 - Other cirrhosis of liver (6) DM type 2 (diabetes mellitus, type 2) Diabetes mellitus usp insulin use: with terminal superintendent use Diabetes mellitus complication status: with hyperglycemia Qualified Code(s): E11.65 - Type 2 diabetes mellitus with hyperglycemia; Z79.4 - superintendent terminal (current) use of insulin (7) Hypothyroidism Hypothyroidism type: acquired Qualified Code(s): E03.9 - Hypothyroidism, unspecified (8) Chest pain Chest pain type: unspecified Qualified Code(s): R07.9 - Chest pain, unspecified
[2019-05-26] MEDS: ALUMINUM/MAGNESIUM SUSP 30 ML UDC PO PRN (14:46)
[2019-05-27] MEDS: TRAMADOL HCL 50 MG TABLET PO PRN ×2 (00:47→23:14)
[2019-05-27] MEDS: KETOROLAC 30 MG/ML VIAL IV PRN ×2 (01:39→22:20)
[2019-05-27] MEDS: SODIUM CHLORIDE 0.9% IV SCH ×3 (02:37→18:07)
[2019-05-27] MEDS: RIFAMPIN IV SCH ×3 (02:37→18:07)
[2019-05-27] MEDS: ALBUT/IPRATROP 3MG/0.5MG NEB 3 ML VIAL INH SCH ×6 (04:05→23:03)
[2019-05-27] MEDS: LEVOTHYROXINE SODIUM 200 MCG TABLET PO SCH (06:36)
[2019-05-27 06:40] LABS: Basophils # (auto) 0.01 K/uL (0-0.2); Basophils % (auto) 0.1 %; Eosinophils # (auto) 0.09 K/uL (0-0.5); Eosinophils % (auto) 0.6 %; Hematocrit (blood only) 36.6 % (37-47); Hemoglobin 11.5 g/dL (12.0-16.0); Immature Granulocytes # (auto) 0.37 K/uL (0.00-0.02); Immature Granulocytes % (auto) 2.5 %; Lymphocytes # (auto) 1.77 K/uL (1.2-3.4); Lymphocytes % (auto) 11.8 %; Mean Corpuscular Hgb Conc 31.4 g/dL (32-36); Mean Corpuscular Volume 98.7 fL (80-100); Mean Platelet Volume 9.3 fL (7.4-10.4); Monocytes # (auto) 0.76 K/uL (0.11-0.59); Monocytes % (auto) 5.1 %; Neutrophils # (auto) 12.01 K/uL (1.4-6.5); Neutrophils % (auto) 79.9 %; Platelet Count 221 K/uL (130-400); RDW Coefficient of Variation 13.7 % (11.5-14.5); RDW Standard Deviation 49.3 fL (36.4-46.3); Red Blood Count 3.71 M/uL (4.2-5.4); White Blood Count 15.01 K/uL (4.8-10.8)
[2019-05-27 07:31] LABS: BUN Creatinine Ratio 36.8 (10-20); Calcium 9.4 mg/dl (8.5-10.1); Creatinine Clr Calc Pharmacy 149.2 ml/min; Est GFR (African American) 116.9; Est GFR (Non-African American) 100.9; Potassium 3.2 mmol/L (3.5-5.1)
[2019-05-27] MEDS: SPIRONOLACTONE 25 MG TAB PO SCH (08:51)
[2019-05-27] MEDS: predniSONE 20 MG TAB PO SCH (08:51)
[2019-05-27] MEDS: CLOPIDOGREL BISULFATE 75 MG TAB PO SCH (08:51)
[2019-05-27] MEDS: BUMETANIDE 1 MG TAB PO SCH ×2 (08:51→10:14)
[2019-05-27] MEDS: PANTOprazole 40 MG TAB PO SCH (08:51)
[2019-05-27] MEDS: GABAPENTIN 100 MG CAP PO SCH ×3 (08:51→21:06)
[2019-05-27] MEDS: ASPIRIN 81 MG ECTAB PO SCH (08:52)
[2019-05-27] MEDS: CARVEDILOL 3.125 MG TAB PO SCH ×2 (08:52→21:07)
[2019-05-27] MEDS: acetaZOLAMIDE 250 MG TAB PO SCH ×2 (08:52→17:43)
[2019-05-27] MEDS: ATORVASTATIN 40 MG TAB PO SCH (08:52)
[2019-05-27] MEDS: INSULIN ASPART 100 UNITS/ML 3 ML PEN SC SCH ×4 (08:55→21:44)
[2019-05-27] MEDS: CEFTAROLINE FOSAMIL ACETATE 600 MG in SODIUM CHLORIDE 0.9% 250 ML IV SCH ×2 (08:57→21:02)
[2019-05-27] MEDS ORDERED: INSULIN GLARGINE SOLOSTAR 100 UNITS/ML 3 ML PEN SC SCH ×2 (09:00→21:00)
[2019-05-27] MEDS ORDERED: predniSONE 10 MG TABLET PO SCH (09:00)
--- NOTE | 2019-05-27 10:24 | Pharmacy Report ---
Pharmacy Glycemic Short Note 2 - Date of Service May 27, 2019 - Glycemic Short BSG Results (Last 24 hours): 05/26/19 05/26/19 05/26/19 11:48 16:44 20:16 Glucose POC Glucose 115 H 161 H 195 H 05/27/19 05/27/19 05:37 07:53 Glucose 113 H POC Glucose 126 H Outpatient Anti-diabetic Regimen: * Insulin glargine 55 units SC BID * Insulin lispro 30 units SC AC * A1c = 7.8 % on 05/19/19 The patient is currently receiving: * Basal insulin: Lantus 45 units every 12 hours * Bolus insulin: Novolog SQ ACHS Goal range: 110-140mg/dL Correction factor: 10mg/dL/unit Carb ratio: 1 unit per 4 grams CHOs consumed with breakfast; 1 unit per 3 grams CHOs consumed with lunch and dinner Risk Factors for Insulin Resistance: * Steroids: Prednisone 20mg daily (reduced 05/25) * Infection: Persistent MRSA bacteremia 2nd endocarditis and also possible HAP * Diet: T2DM ASSESSMENT: 05/27 * Gladis rec'd 144 units of insulin yesterday (90 of this being basal) * Fasting BSG improved this AM = 113 mg/dL * Postprandial BSGs increased slightly throughout the day with the reduced basal dose. Carb ratio already fairly aggressive so will increase the AM dose of Lantus to provide more coverage throughout the day and keep the PM dose the same. Of note, pre-lunch BSG elevated today but AM Novolog was given later than previous days so I do not think this is a true postprandial BSG. * Prednisone dose decreased to 10 mg starting tomorrow. May need to make adjustments tomorrow based upon BSGs today. 05/26 * Dilia rec'd 158 units of insulin yesterday (100 of this being basal) * Fasting BSG = 79 mg/dL on PRP. Will decrease basal dose by 10% to prevent hypoglycemia with reduced prednisone dose. * Postprandial BSGs acceptable for the most part. HS BSG was improved with tigh tened CR at dinner but dinner BSG also slightly high so I would like to have her receive more coverage with lunch as well. 05/25 * Glycemic control acceptable over last 24 hrs, only 1 BSG greater than 180 * HS BSG improved following the increase in dinner Novolog dose * Prednisone dose reduced to 20mg daily this AM. Would expect some improved insulin sensitivity. * Plan to continue his current insulin doses another 24 hrs, as BSGs near upper end of goal second half of the day yesterday. Insulin doses may not need adjusted down quite yet despite steroid dose reduction, 05/24 * BSGs have been well controlled with the current regimen with the exception of HS hyperglycemia. This has occurred 2 days in a row now, and upon review of prior admissions did occur then as well. Will increase the prandial insulin dose with dinner. * Fasting BSGs at goal again today w/ 100 units of Lantus on board - no change 05/23 * Patient transitioned off insulin drip yesterday afternoon * Fasting BSG 92 this AM w/ 100 units of Lantus on board - will continue the same for now * HS BSG elevated yesterday, however other BSGs have been within desired range since transition. Will monitor for post-prandial hyperglycemia today but continue current Novolog orders 05/22 * Glycemic targets met with insulin drip * Patient's insulin infusion rate @4.3 units/hr this AM. Also has 100 units of Lantus on board from yesterday (40 in AM + 60 in PM) * Now that patient is resuming home dose of steroid, will begin transition off insulin drip as the effects of yesterday's Solu-Medrol doses should be dissipating * Reviewed her admission in March, will receiving a prednisone taper. The regimen below is based upon her insulin requirements during that admission on a similar dose of Prednisone. PLAN FOR INPATIENT GLYCEMIC CONTROL: * Basal insulin: Lantus 50 units qAM, 45 units qPM (increase AM dose by 10%) * Novolog SQ ACHS (no change) * Goal range: 110-140mg/dL * Correction factor: 10mg/dL/unit * Carb ratio: 1 unit per 4 grams CHOs consumed with breakfast and HS; 1 unit per 3 grams CHOs consumed with lunch and dinner * Will consider decreasing AM Lantus and/or adjusting carb ratio tomorrow with decrease in prednisone dose, but will need to reassess tomorrow since BSGs are fluctuating a little today Plan for discharge: * Will be dependent on steroid dose on discharge. Please contact pharmacy to provide recommendations.
[2019-05-27] MEDS: POTASSIUM CHLORIDE 20 MEQ TABCR PO SCH ×2 (10:59→21:07)
[2019-05-27] MEDS: DAPTOmycin 725 MG in SYRINGE 0 ML IV SCH (12:04)
--- NOTE | 2019-05-27 15:54 | Hospitalist Progress Note ---
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 Zamudio on 05/23, will treat with Daptomycin, Ceftaroline and Rifampin will need 6 weeks PICC line placed on 05/22 discharge tomorrow to [facility] in [place], they have already accepted patient needs 6 weeks of Daptomycin, Ceftaroline and Rifampin date of negative blood cultures is 05/24 so final day of antibiotics would be 07/05/19 patient requests that someone call daughter tomorrow, number is not in the chart (2) MRSA bacteremia: source - lung (LLL pneumonia) +/- skin given the numerous healing lesions. she had a MRSA furuncle on her left neck that required I/D during previous admission. 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 See "MRSA bacteremia" above. Sepsis resolved for the past week, vitals stable, WBC stable, no fever (4) LLL pneumonia: As seen on CT chest. High likelihood this is due to MRSA. treated with both Ceftaroline and then three days of Vancomycin stop Vancomycin today completed 7 days of treatment for the pneumonia, further antibiotics would be treating the bacteremia/endocarditis Supportive care, BIPAP as needed. (5) Acute on chronic respiratory failure with hypoxia and hypercapnia: Acute component 2nd to LLL pneumonia and COPD flare. Chronic - COPD, GEETHA, OHS, etc. Acute component resolved Abx for LLL pneumonia completed patient is stable on 4L NC which she wears chronically responded quite well to extra Bumex, diuresed 7.5 liters over three days (6) Metabolic encephalopathy: Due to sepsis/pneumonia - resolved. Ammonia level was normal. VBGs with hypercarbia but this has slowly improved. Avoid hyperoxia; keep sats low 90s. Avoid narcotics. Keep euglycemic. (7) COPD (chronic obstructive pulmonary disease): with exacerbation. resolved tapered to Prednisone 30mg daily she takes this chronically for bullous pemphigoid Nebs q4h. BIPAP and NC O2. Supportive care. (8) Coronary atherosclerosis of [place] coronary vessel: Resumed asa, plavix, statin. Troponins negative. EKG without ischemic changes. Chest pain is musculoskeletal - reproducible on exam. Consider k-pad. (9) Diastolic CHF: Was volume contracted clinically at admission, then received fluid resuscitation for severe sepsis. mild volume overload on 05/24, likely due to all the IV fluids with antibiotics drinking well significant diuresis, 7 liters negative, the past three days on Bumex 2mg BID less diuresis, 1200 the past day, will cut back Bumex to 2mg PO daily no further Diamox needed (10) Tobacco use disorder: Offer nicoderm patch if truly still smoking at SNF. (11) Cirrhosis of liver: 2nd to ABDI and/or autoimmune causes. Ammonia level normal. INR stable. LFTs stable. (12) DM type 2 (diabetes mellitus, type 2): monitor for hypoglycemia sugars have been stable currently on Lantus 50 units qAM and 45 units qPM Novolog scale (13) Hypothyroidism: TSH within the last 2 months wnl. Cont synthroid. (14) Hyponatremia: Due to volume contraction at admission. Resolved (15) Bullous pemphigoid: Controlled. No active bullae at this time. On chronic prednisone 30mg/day and niacinamide 500mg TID at home Giving stress dose steroids for sepsis and COPD exacerbation Prednisone now down to 30mg (16) Chest pain: Musculoskeletal. Reproducible on exam; EKG w/o ischemic changes; pain is better with position changes will use Toradol and Ultram for pain no pain today (17) Morbid obesity with BMI of 50.0-59.9, adult: BMI 55 (18) Hypokalemia: resolved for several days (19) DVT prophylaxis: lovenox 40mg daily told patient she would NOT be a candidate to return to her actual home in [place] UNLESS she had 24/7 caregivers. daughter stated that would never be possible. looking into LTACH, referral made to [facility] feel she would be ready for discharge once blood cultures clear blood cultures clear, d/c tomorrow to [facility] please have either correctional counselor/case manager or physician call her daughter, could not find number in chart today Subjective patient looking well today, was transferred to chair via Racheal lift she says that it feels really good to sit up, breathing well reviewed I/O, negative 1200cc yesterday so diuresis is slowing HCO3 still up at 43 so likely getting a little volume contracted patient says that she normally does not have a queen, it was placed on admission stayed in place for aggressive diuresis the past few days no fever, appetite is good, she moved her bowels discussed going to [facility] tomorrow because her blood cultures are clean she agrees asks that someone call her daughter tomorrow Review of Systems Review of Systems: All systems reviewed & are unremarkable except as noted in HPI & below Constitutional: no fever Respiratory: + dyspnea on exertion; no cough, no dyspnea and no wheezing Cardiovascular: + edema; no chest pain Musculoskeletal: + muscle weakness (generalized) Physical Exam Constitutional: WD/WN, vitals as above + obese Eyes: PERRL, conjunctivae normal, anicteric sclerae ENMT: external ear and nose normal, oropharynx normal Neck: trachea midline, no thyromegaly Respiratory: normal respiratory effort, lungs clear to auscultation Cardiovascular: RRR, no murmur, no edema Rate/Rhythm: regular rate and regular rhythm Heart Sounds: normal S1 and normal S2; no murmur Vessels: no JVD Extremities: + edema (improving) Chest (Breasts): Chest: normal inspection of chest (tender to palpation on le ft side) Gastrointestinal (Abdomen): normal bowel sounds, soft, nontender, no hepatosplenomegaly Musculoskeletal: no cyanosis or clubbing, extremities motor strength 5/5 Spine: + limited thoraco-lumbar ROM (due to pain) Skin: + rash (numerous dry rashes, erythematous), + dry skin and + nails dystrophic Neurologic: patellar DTR's 2+ bilat, sensation intact and PERRL, EOMI, accommodation nl, no face palsy, no dysarthria Psychiatric: Orientation: alert and oriented x 3 Affect: + depressed affect Lymphatic: no cervical or axillary lymphadenopathy Results & Data Vital Signs (Past 12 Hours) Vital Signs Temp Pulse Pulse Resp BP Pulse Ox 05/27/19 15:29 36.8 C 62 16 145/55 H 93 05/27/19 15:03 62 22 95 05/27/19 11:19 65 20 90 05/27/19 07:21 36.8 C 59 L 20 99/64 L 93 05/27/19 07:09 64 18 90 05/27/19 04:05 63 18 93 Laboratory Results Laboratory Results - last 24 hr 05/26/19 05/26/19 05/27/19 16:44 20:16 05:37 WBC 15.01 H RBC 3.71 L Hgb 11.5 L Hct 36.6 L MCV 98.7 MCH 31.0 MCHC 31.4 L RDW Std Deviation 49.3 H RDW Coeff of Ministerio 13.7 Plt Count 221 MPV 9.3 Immature Gran % (Auto) 2.5 Neut % (Auto) 79.9 Lymph % (Auto) 11.8 [place] % (Auto) 5.1 Eos % (Auto) 0.6 Baso % (Auto) 0.1 Immature Gran # (Auto) 0.37 H Neut # (Auto) 12.01 H Lymph # (Auto) 1.77 [place] # (Auto) 0.76 H Eos # (Auto) 0.09 Baso # (Auto) 0.01 Sodium Potassium Chloride Carbon Dioxide Anion Gap BUN Creatinine Est Cr Clr Drug Dosing Est GFR ( Amer) Est GFR (Non-Af Amer) BUN/Creatinine Ratio Glucose POC Glucose 161 H 195 H Calcium 05/27/19 05/27/19 05/27/19 05:37 07:53 11:47 WBC RBC Hgb Hct MCV MCH MCHC RDW Std Deviation RDW Coeff of Ministerio Plt Count MPV Immature Gran % (Auto) Neut % (Auto) Lymph % (Auto) [place] % (Auto) Eos % (Auto) Baso % (Auto) Immature Gran # (Auto) Neut # (Auto) Lymph # (Auto) [place] # (Auto) Eos # (Auto) Baso # (Auto) Sodium 131 L Potassium 3.2 L Chloride 87 L Carbon Dioxide 43 H* Anion Gap 2.0 L BUN 21 H Creatinine 0.58 L Est Cr Clr Drug Dosing 149.2 Est GFR ( Amer) 116.9 Est GFR (Non-Af Amer) 100.9 BUN/Creatinine Ratio 36.8 H Glucose 113 H POC Glucose 126 H 249 H Calcium 9.4 Medications Administered Current Inpatient Medications Acetaminophen (Tylenol) 650 mg PO Q4H PRN PRN Reason: Pain or Fever Stop: 06/21/19 07:42 Last Admin: 05/26/19 03:13 Dose: 650 mg Documented by: Acetazolamide (Diamox) 250 mg PO BID17 [facility] Stop: 05/28/19 10:00 Last Admin: 05/27/19 08:52 Dose: 250 mg Documented by: Al Hydrox/Mg Hydrox/Simethicone (Maalox) 15 ml PO Q6H PRN PRN Reason: Dyspepsia Stop: 06/21/19 07:42 Last Admin: 05/26/19 14:46 Dose: 15 ml Documented by: Albuterol (Duoneb) 3 ml INH Q4R [facility] Stop: 06/17/19 11:59 Last Admin: 05/27/19 14:59 Dose: 3 ml Documented by: Aspirin (Ecotrin Ectab) 81 mg PO DAILY [facility] Stop: 06/17/19 09:57 Last Admin: 05/27/19 08:52 Dose: 81 mg Documented by: Atorvastatin Calcium (Lipitor) 40 mg PO DAILY [facility] Stop: 06/17/19 09:57 Last Admin: 05/27/19 08:52 Dose: 40 mg Documented by: Betamethasone Dipropion Augmented (Diprolene 0.05%) 1 appln TOP Q8 PRN PRN Reason: bullous pemphigoid eruptions Last Admin: 05/18/19 10:46 Dose: 1 appln Documented by: Bumetanide (Bumex) 2 mg PO DAILY [facility] Stop: 06/26/19 08:59 Last Admin: 05/27/19 10:14 Dose: Not Given Documented by: Carvedilol (Coreg) 3.125 mg PO BID [facility] Stop: 06/19/19 08:59 Last Admin: 05/27/19 08:52 Dose: Not Given Documented by: Clopidogrel Bisulfate (Plavix) 75 mg PO DAILY [facility] Stop: 06/17/19 09:57 Last Admin: 05/27/19 08:51 Dose: 75 mg Documented by: Dextrose (Dextrose 50%) 25 - 50 ml IV UD PRN; Protocol PRN Reason: Hypoglycemia Protocol Stop: 06/17/19 11:44 Gabapentin (Neurontin) 100 mg PO TID [facility] Stop: 06/17/19 09:57 Last Admin: 05/27/19 13:59 Dose: 100 mg Documented by: Glucagon (Glucagen) 1 mg SQ UD PRN; Protocol PRN Reason: Hypoglycemia Protocol Stop: 06/17/19 11:44 Glucose (Glucose 40%) 15 - 30 gm PO UD PRN; Protocol PRN Reason: Hypoglycemia Protocol Stop: 06/17/19 11:44 Glucose (Dex4 Glucose) 4 - 8 tabs PO UD PRN; Protocol PRN Reason: Hypoglycemia Protocol Stop: 06/17/19 11:44 Heparin Sodium (Beef Lung) (Heparin Sod 10 Unit/Ml Flush) 5 ml FLUSH PRN PRN PRN Reason: Flush Stop: 06/22/19 23:07 Last Admin: 05/27/19 12:05 Dose: 5 ml Documented by: Ceftaroline Fosamil 600 mg/ (Sodium Chloride) 270 mls @ 250 mls/hr IV Q12H [facility]; Protocol Stop: 06/07/19 08:59 Last Infusion: 05/27/19 10:15 Dose: Infused Documented by: Rifampin 300 mg/ Sodium (Chloride) 255 mls @ 167 mls/hr IV Q8H [facility] Stop: 06/07/19 10:29 Last Infusion: 05/27/19 11:59 Dose: Infused Documented by: Daptomycin 725 mg/ Syringe 14.5 mls @ 7.25 mls/min IV Q24H [facility]; Protocol Stop: 06/07/19 11:59 Last Admin: 05/27/19 12:04 Dose: 7.25 mls/min Documented by: Insulin Aspart (Novolog Flexpen) 0 units SC DAILY@0730,2100 [facility] Stop: 06/25/19 20:59 Last Admin: 05/27/19 08:55 Dose: 16 units Documented by: Insulin Aspart (Novolog Flexpen) 0 units SC DAILY@1130,1630 [facility] Stop: 06/25/19 11:29 Last Admin: 05/27/19 12:41 Dose: 34 units Documented by: Insulin Glargine (Lantus Solostar Pen) 50 units SC QAM [facility]; Protocol Stop: 06/26/19 08:59 Last Admin: 05/27/19 08:53 Dose: 50 units Documented by: Insulin Glargine (Lantus Solostar Pen) 45 units SC PM [facility]; Protocol Stop: 06/26/19 20:59 Ketorolac Tromethamine (Toradol) 30 mg IV Q6H PRN PRN Reason: Pain Stop: 05/28/19 11:07 Last Admin: 05/27/19 01:39 Dose: 30 mg Documented by: Levothyroxine Sodium (Synthroid) 200 mcg PO DAILYBB [facility] Stop: 06/17/19 09:57 Last Admin: 05/27/19 06:36 Dose: 200 mcg Documented by: Miscellaneous (Carbohydrates For Hypoglycemia) 15 - 30 gm PO UD PRN PRN Reason: Hypoglycemia Treatment Stop: 06/17/19 11:44 Miscellaneous Information (Consult Glycemic Management Pharmacy) 1 ea N/A UD PRN PRN Reason: Consult Stop: 06/17/19 19:09 Pantoprazole Sodium (Protonix) 40 mg PO DAILY [facility] Stop: 06/17/19 09:57 Last Admin: 05/27/19 08:51 Dose: 40 mg Documented by: Potassium Chloride (Klor-Con M20) 20 meq PO BID [facility] Stop: 05/29/19 21:01 Last Admin: 05/27/19 10:59 Dose: 20 meq Documented by: Prednisone (Prednisone) 10 mg PO DAILY [facility] Stop: 06/26/19 08:59 Last Admin: 05/27/19 10:14 Dose: Not Given Documented by: Simethicone (Mylicon) 80 mg PO Q6H PRN PRN Reason: Gas or Constipation Stop: 06/21/19 08:39 Last Admin: 05/23/19 10:42 Dose: 80 mg Documented by: Sodium Chloride ([place] Nasal) 1 sprays NA PRN PRN PRN Reason: Dryness Stop: 06/25/19 14:16 Last Admin: 05/26/19 17:52 Dose: 1 sprays Documented by: Spironolactone (Aldactone) 25 mg PO QAM [facility] Stop: 06/18/19 09:14 Last Admin: 05/27/19 08:51 Dose: 25 mg Documented by: Tramadol HCl (Ultram) 50 mg PO Q4H PRN PRN Reason: Pain Stop: 06/24/19 16:59 Last Admin: 05/27/19 00:47 Dose: 50 mg Documented by: PG Care Time/CCT Total # of Minutes Spent Total Time Spent with Patient: Total time spent is greater than 50% in coordination of care (as documented) at patient's floor/unit and/or counseling patient: (1) Diastolic CHF Heart failure chronicity: chronic Qualified Code(s): I50.32 - Chronic diastolic (congestive) heart failure (2) DM type 2 (diabetes mellitus, type 2) Diabetes mellitus complication status: with hyperglycemia 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 transplanted heart: [place] heart Qualified Code(s): I25.10 - Atherosclerotic heart disease of [place] coronary a rtery without angina pectoris (6) COPD (chronic obstructive pulmonary disease) COPD type: COPD with acute exacerbation Qualified Code(s): J44.1 - Chronic obstructive pulmonary disease with (acute) exacerbation (7) LLL pneumonia Pneumonia type: due to unspecified organism Qualified Code(s): J18.1 - Lobar pneumonia, unspecified organism (8) Chest pain Chest pain type: unspecified Qualified Code(s): R07.9 - Chest pain, unspecified
[2019-05-27] MEDS: ACETAMINOPHEN 325 MG TAB PO PRN (18:14)
[2019-05-28] MEDS: RIFAMPIN IV SCH ×3 (02:12→18:29)
[2019-05-28] MEDS: SODIUM CHLORIDE 0.9% IV SCH ×3 (02:12→18:29)
[2019-05-28] MEDS: ACETAMINOPHEN 325 MG TAB PO PRN (02:29)
[2019-05-28] MEDS: ALBUT/IPRATROP 3MG/0.5MG NEB 3 ML VIAL INH SCH ×6 (03:44→23:12)
[2019-05-28] MEDS: LEVOTHYROXINE SODIUM 200 MCG TABLET PO SCH (06:03)
[2019-05-28] MEDS: PANTOprazole 40 MG TAB PO SCH (08:26)
[2019-05-28] MEDS: GABAPENTIN 100 MG CAP PO SCH ×3 (08:26→21:59)
[2019-05-28] MEDS: predniSONE 10 MG TABLET PO SCH (08:26)
[2019-05-28] MEDS: POTASSIUM CHLORIDE 20 MEQ TABCR PO SCH ×2 (08:27→21:58)
[2019-05-28] MEDS: CLOPIDOGREL BISULFATE 75 MG TAB PO SCH (08:27)
[2019-05-28] MEDS: ASPIRIN 81 MG ECTAB PO SCH (08:27)
[2019-05-28] MEDS: ATORVASTATIN 40 MG TAB PO SCH (08:27)
[2019-05-28] MEDS: BUMETANIDE 1 MG TAB PO SCH (08:27)
[2019-05-28] MEDS: CARVEDILOL 3.125 MG TAB PO SCH ×2 (08:27→21:58)
[2019-05-28] MEDS: SPIRONOLACTONE 25 MG TAB PO SCH (08:27)
[2019-05-28] MEDS: acetaZOLAMIDE 250 MG TAB PO SCH (08:27)
[2019-05-28] MEDS: INSULIN ASPART 100 UNITS/ML 3 ML PEN SC SCH ×4 (08:29→21:59)
[2019-05-28] MEDS: INSULIN GLARGINE SOLOSTAR 100 UNITS/ML 3 ML PEN SC SCH ×2 (08:30→21:59)
[2019-05-28] MEDS: CEFTAROLINE FOSAMIL ACETATE 600 MG in SODIUM CHLORIDE 0.9% 250 ML IV SCH ×2 (08:33→22:29)
[2019-05-28] MEDS: TRAMADOL HCL 50 MG TABLET PO PRN ×2 (08:33→22:45)
[2019-05-28 08:46] LABS: Hematocrit (blood only) 38.2 % (37-47); Hemoglobin 11.7 g/dL (12.0-16.0); Mean Corpuscular Hgb Conc 30.6 g/dL (32-36); Mean Platelet Volume 9.3 fL (7.4-10.4); Platelet Count 205 K/uL (130-400); RDW Coefficient of Variation 13.7 % (11.5-14.5); RDW Standard Deviation 49.2 fL (36.4-46.3); Red Blood Count 3.86 M/uL (4.2-5.4); White Blood Count 12.42 K/uL (4.8-10.8)
[2019-05-28 09:17] LABS: BUN Creatinine Ratio 31.3 (10-20); Calcium 10.1 mg/dl (8.5-10.1); Creatinine Clr Calc Pharmacy 136.1 ml/min; Est GFR (African American) 113.2; Est GFR (Non-African American) 97.7; Potassium 3.8 mmol/L (3.5-5.1)
[2019-05-28] MEDS ORDERED: POLYETHYLENE (MIRALAX) 17 GM PACK PO PRN (09:46)
[2019-05-28] MEDS: KETOROLAC 30 MG/ML VIAL IV PRN (10:43)
[2019-05-28] MEDS: DOCUSATE SODIUM/SENNA 50/8.6MG TAB PO SCH ×2 (10:43→21:59)
[2019-05-28] MEDS: DAPTOmycin 725 MG in SYRINGE 0 ML IV SCH (12:18)
--- NOTE | 2019-05-28 14:57 | Pharmacy Report ---
Glycemic Control Progress Note - Date of Service May 28, 2019 - Scope Glycemic Pharmacist consulted for glycemic control to write orders per [facility] inpatient glycemic control protocol. - Objective Accuchecks BSG(last 24 hours):: 05/27/19 05/27/19 05/28/19 17:04 20:16 02:14 Glucose POC Glucose 277 H 370 H* 219 H 05/28/19 05/28/19 05/28/19 07:27 08:31 11:23 Glucose 209 H POC Glucose 203 H 231 H HbA1c:: Hemoglobin A1c 7.8 % (4.5-5.6) H 05/19/19 04:02 - Recent Pertinent Medications The patient is currently receiving: * Basal insulin: Lantus 50 units in AM and 45 units in PM * Correctional Insulin: Novolog Correction per scale ACHS Goal Range: Low 110 mg/dL - High 140 mg/dL Correction Factor: 10 mg/dL/unit * Prandial insulin: Per carb ratio of 1 unit per 4 grams CHO consumed with breakfast and bedtime; per 3 grams CHO consumed with lunch and dinner - Outpatient Anti-Diabetic Meds Lantus 55 units BID + Humalog 30 units TIDM - Assessment & Plan ASSESSMENT: * See progress note from 05/18/19 for more background info, in short: * Pt receiving SQ basal bolus insulin regimen for hyperglycemia secondary to baseline DM (outpatient regimen on hold),stress/infection (MRSA bacteremia with endocarditis on Daptomycin/Teflaro/Rifampin), and prednisone 30 mg daily. * Patient is currently receiving an average of 209 units of insulin per day * 95 units of basal insulin * 114 units of prandial/correctional insulin * BSGs ranging 126 - 370 mg/dl over the past 24hrs * Changes needed to insulin regimen: * AM Fasting BSG = 209 mg/dl. This is above goal range for patient based on inpatient targets and co-morbidities. This is abnormal for patient. Typically, fasting blood sugars are low (below 140 mg/dL). Concerned about this fasting blood sugar as uncertain if this is a fluke. Increase evening Lantus by 5 units. Add 0200 check to see how much additional Lantus the patient requires. * Post-prandial BSGs are elevated. Tighten lunch and dinner to CF of 8 CR of 2. Typically these two meals require the most intensive glucose control with steroids. If this is no longer effective will consider NPH. * Total daily dose = >200 units. PLAN FOR INPATIENT GLYCEMIC CONTROL: * Increasing Lantus to 50 units SQ BID * Tightening correction factor to 8 mg/dl/unit with lunch and dinner * Tightening carb ratio to 1 unit per 2 grams CHO consumed with lunch and dinner * Continuing goal range Low 110 mg/dL - High 140 mg/dL RECOMMENDATIONS FOR DISCHARGE: * Patient's HbA1C indicates poorer control that previously. The patient said her blood sugars are always high in the evening. Consider increasing Novolog dose with lunch and dinner to achieve better control. * Please note that the plan above was derived based on current level of insulin resistance and hospital stress. These recommendations are appropriate for inpatient admission only. Plan of care upon discharge will need to be reassessed to avoid potential outpatient hypo/hyperglycemia. Thank you.
--- NOTE | 2019-05-28 15:39 | Hospitalist Progress Note ---
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 - Most recent BC on 05/24 have been negative x 48 hours. - TTE 05/21 with vegetation on coronary cusp of aortic valve. - Continue Dapto, Ceftaroline and Rifampin IV via PICC line -- end date 07/05/19. - Plan for placement at [facility] in [place], [place]. Will need to contact daughter prior to transport. (2) MRSA bacteremia: - ?Source -- pulmonary vs. skin lesions. Also has h/o MRSA furuncle on left neck requiring I&D. - BC growth and treatment as noted above. - Continue Ceftaroline, Daptomycin, Rifampin for 6 weeks. (3) Severe sepsis: - 2nd to LLL pneumonia and MRSA bacteremia/septicemia. - Sepsis now resolved >5-7 days. (4) LLL pneumonia: - Noted on CT chest -- may be related to MRSA. - Treated with both Ceftaroline and then three days of Vancomycin. - Completed 7 days of treatment for the pneumonia, further antibiotics would be treating the bacteremia/endocarditis. (5) Acute on chronic respiratory failure with hypoxia and hypercapnia: - Likely related to PNA and COPD flare; chronically hypoxic d/t COPD, GEETHA. - Now stable on 4L via NC. - Diuresis with Bumex 2 mg PO daily. (6) Metabolic encephalopathy: - Due to sepsis/pneumonia - resolved. - Hypercarbia improved; avoid hyperoxia and narcotics. - Ammonia level was normal. (7) COPD (chronic obstructive pulmonary disease): - Now resolved; tapered back to Pred 30 mg daily. - Duonebs q4hr scheduled. - O2 via NC. (8) Coronary atherosclerosis of [place] coronary vessel: - Continue ASA, Plavix, statin, coreg as prescribed. (9) Diastolic CHF: - Was volume contracted clinically at admission, then received fluid resuscitation for severe sepsis. - Responded well to diuresis with Bumex 2 mg BID -- now receivin Bumex 2 mg PO daily. - No indication for ongoing doses of Diamox. - Monitor net I/O's and daily weights. (10) Tobacco use disorder: - Nicoderm patch. (11) Cirrhosis of liver: - 2nd to ABDI and/or autoimmune causes. - Ammonia level normal. (12) DM type 2 (diabetes mellitus, type 2): - BG has been unstable, elevated >250-300's. - Pharmacy consulted for glycemic management, receiving basal/bolus insulin. - Hgb A1C was 7.8 in April 2019. (13) Hypothyroidism: - Continue Synthroid as prescribed. - TSH was 0.9. (14) Hyponatremia: - Likely related to hypovolemia at admission. - Now resolved. (15) Bullous pemphigoid: - No active bullae at this time. - Continue chronic prednisone 30mg/day and niacinamide 500mg TID. (16) Chest pain: - Now resolved. (17) Morbid obesity with BMI of 50.0-59.9, adult: - BMI 58 - encourage weight loss. (18) DVT prophylaxis: - Lovenox daily. Dispo: Discharge to [facility] likely on 05/29/19. Supervising Physician Co-Signing Physician Notes [place] Supervision Note: I did not personally see or examine the patient today, but I verified all [place] points of CEDRICK Mercedes's assessment and plan with the following exceptions/additions: None Subjective Pt. was doing relatively well today. She has not had a BM in 5 days -- has abd bloating but is passing gas. Denies SOB, chest pain. Plan for placement at [facility] likely on 05/29/19. Review of Systems Review of Systems: All systems reviewed & are unremarkable except as noted in HPI & below Constitutional: no fever, no chills, no fatigue, no weakness and no anorexia Respiratory: no cough, no dyspnea and no dyspnea on exertion Cardiovascular: no chest pain, no palpitations and no edema Gastrointestinal: + constipation; no abdominal pain, no nausea and no vomiting Genitourinary: no difficulty urinating Musculoskeletal: no back pain and no joint pain Integumentary: no non-healing lesions Allergy / Immunological: no rash Physical Exam Physical Exam: General: Resting comfortably in no apparent distress HEENT: NC/AT; PERRLA with EOMI; [place] conjunctiva, MMM. No erythema of posterior pharynx Neck: Supple and nontender Cardiac: RRR Lungs: CTA bilaterally Abdomen: Bowel normoactive X 4; Nontender to palpation Extremities: Warm. No edema present Neuro: No focal weakness Skin: No rash Results & Data Vital Signs (Past 12 Hours) Vital Signs Temp Pulse Pulse Pulse Resp BP Pulse Ox 05/28/19 15:16 59 L 18 91 05/28/19 15:00 36.5 C 59 L 18 114/68 93 05/28/19 11:07 61 18 92 05/28/19 07:25 59 L 20 94 05/28/19 07:07 36.4 C L 56 L 20 116/62 96 05/28/19 03:46 56 L 18 96 Laboratory Results 05/28/19 05/28/19 05/28/19 Range/Units 11:23 08:31 08:31 WBC 12.42 H (4.8-10.8) K/uL RBC 3.86 L (4.2-5.4) M/uL Hgb 11.7 L (12.0-16.0) g/dL Hct 38.2 (37-47) % MCV 99.0 (80-100) fL MCH 30.3 (25-34) pg MCHC 30.6 L (32-36) g/dL RDW Std Deviation 49.2 H (36.4-46.3) fL RDW Coeff of Ministerio 13.7 (11.5-14.5) % Plt Count 205 (130-400) K/uL MPV 9.3 (7.4-10.4) fL Sodium 133 L (136-145) mmol/L Potassium 3.8 D (3.5-5.1) mmol/L Chloride 89 L (98-107) mmol/L Carbon Dioxide 40 H (21-32) mmol/L Anion Gap 4.0 (3-11) BUN 20 H (7-18) mg/dl Creatinine 0.64 (0.6-1.2) mg/dl Est Cr Clr Drug Dosing 136.1 ml/min Est GFR ( Amer) 113.2 Est GFR (Non-Af Amer) 97.7 BUN/Creatinine Ratio 31.3 H (10-20) Glucose 209 H (70-99) mg/dl POC Glucose 231 H (70-99) Calcium 10.1 (8.5-10.1) mg/dl Magnesium 2.0 (1.8-2.4) mg/dl 05/28/19 05/28/19 05/27/19 Range/Units 07:27 02:14 20:16 WBC (4.8-10.8) K/uL RBC (4.2-5.4) M/uL Hgb (12.0-16.0) g/dL Hct (37-47) % MCV (80-100) fL MCH (25-34) pg MCHC (32-36) g/dL RDW Std Deviation (36.4-46.3) fL RDW Coeff of Ministerio (11.5-14.5) % Plt Count (130-400) K/uL MPV (7.4-10.4) fL Sodium (136-145) mmol/L Potassium (3.5-5.1) mmol/L Chloride (98-107) mmol/L Carbon Dioxide (21-32) mmol/L Anion Gap (3-11) BUN (7-18) mg/dl Creatinine (0.6-1.2) mg/dl Est Cr Clr Drug Dosing ml/min Est GFR ( Amer) Est GFR (Non-Af Amer) BUN/Creatinine Ratio (10-20) Glucose (70-99) mg/dl POC Glucose 203 H 219 H 370 H* (70-99) Calcium (8.5-10.1) mg/dl Magnesium (1.8-2.4) mg/dl 05/27/19 Range/Units 17:04 WBC (4.8-10.8) K/uL RBC (4.2-5.4) M/uL Hgb (12.0-16.0) g/dL Hct (37-47) % MCV (80-100) fL MCH (25-34) pg MCHC (32-36) g/dL RDW Std Deviation (36.4-46.3) fL RDW Coeff of Ministerio (11.5-14.5) % Plt Count (130-400) K/uL MPV (7.4-10.4) fL Sodium (136-145) mmol/L Potassium (3.5-5.1) mmol/L Chloride (98-107) mmol/L Carbon Dioxide (21-32) mmol/L Anion Gap (3-11) BUN (7-18) mg/dl Creatinine (0.6-1.2) mg/dl Est Cr Clr Drug Dosing ml/min Est GFR ( Amer) Est GFR (Non-Af Amer) BUN/Creatinine Ratio (10-20) Glucose (70-99) mg/dl POC Glucose 277 H (70-99) Calcium (8.5-10.1) mg/dl Magnesium (1.8-2.4) mg/dl PG Care Time/CCT Total # of Minutes Spent Total Time Spent with Patient: Total time spent is greater than 50% in coordination of care (as documented) at patient's floor/unit and/or counseling patient: (1) Diastolic CHF Heart failure chronicity: chronic Qualified Code(s): I50.32 - Chronic diastolic (congestive) heart failure (2) DM type 2 (diabetes mellitus, type 2) Diabetes mellitus complication status: with hyperglycemia Diabetes mellitus jail insulin use: with jail use Qualified Code(s): E11.65 - Type 2 diabetes mellitus with hyperglycemia; Z79.4 - group home (current) use of insulin (3) Hypothyroidism Hypothyroidism type: acquired Qualified Code(s): E03.9 - Hypothyroidism, unspecified (4) Cirrhosis of liver Hepatic cirrhosis type: other cirrhosis Qualified Code(s): K74.69 - Other cirrhosis of liver (5) Coronary atherosclerosis of [place] coronary vessel Associated angina: without angina [place] vs. transplanted heart: [place] heart Qualified Code(s): I25.10 - Atherosclerotic heart disease of [place] coronary artery without angina pectoris (6) COPD (chronic obstructive pulmonary disease) COPD type: COPD with acute exacerbation Qualified Code(s): J44.1 - Chronic obstructive pulmonary disease with (acute) exacerbation (7) LLL pneumonia Pneumonia type: due to unspecified organism Qualified Code(s): J18.1 - Lobar pneumonia, unspecified organism (8) Chest pain Chest pain type: unspecified Qualified Code(s): R07.9 - Chest pain, unspecified
[2019-05-28] MEDS ORDERED: acetaZOLAMIDE 250 MG TAB PO SCH (17:00)
--- NOTE | 2019-05-28 18:21 | Infectious Disease Progress Nt ---
Date of Service May 28, 2019 Assessment & Plan (1) MRSA bacteremia: Patient with MRSA endocarditis with pneumonia with persistently positive blood cultures. As discussed, daptomycin substituted for vancomycin and rifampin added. Follow-up blood cultures are no growth to date. We will cont inue present antibiotics. Monitor liver enzymes while on rifampin. Will follow. (2) LLL pneumonia: Subjective Patient seen in follow-up for MRSA sepsis with endocarditis of pneumonia. Breathing slightly better today, cough slightly improved. Follow-up blood cultures are no growth today. Appears to be tolerating antibiotics without apparent difficulty. Review of Systems Review of Systems: All systems reviewed & are unremarkable except as noted in HPI & below Physical Exam Constitutional: WD/WN, vitals as above + morbidly obese and comfortable; no acute distress Eyes: PERRL, conjunctivae normal, anicteric sclerae ENMT: external ear and nose normal, oropharynx normal Neck: trachea midline, no thyromegaly neck nontender Respiratory: normal percussion; no respiratory distress and does not use accessory muscles Auscultation: + rales (Left-sided) Cardiovascular: Rate/Rhythm: regular rate and regular rhythm Heart Sounds: normal S1 and normal S2; no gallop, no murmur and no cardiac rub Vessels: normal peripheral pulses; no JVD Gastrointestinal (Abdomen): normal bowel sounds, soft, nontender, no hepatosplenomegaly Musculoskeletal: no cyanosis or clubbing, extremities motor strength 5/5 Spine: thoracic spine normal to inspection and lumbar spine normal to inspection; no cervical spinal tenderness Skin: no rashes, warm and dry normal turgor; no lesions Neurologic: patellar DTR's 2+ bilat, sensation intact no focal motor deficits Psychiatric: A+Ox3, euthymic affect Orientation: cooperative Lymphatic: no cervical or axillary lymphadenopathy no inguinal lymphadenopathy Results & Data Vital Signs (Past 12 Hours) Vital Signs Temp Pulse Pulse Pulse Resp BP Pulse Ox 05/28/19 15:16 59 L 18 91 05/28/19 15:00 36.5 C 59 L 18 114/68 93 05/28/19 11:07 61 18 92 05/28/19 07:25 59 L 20 94 05/28/19 07:07 36.4 C L 56 L 20 116/62 96 Laboratory Results Laboratory Results - last 48 hr 05/26/19 05/27/19 05/27/19 20:16 05:37 05:37 WBC 15.01 H RBC 3.71 L Hgb 11.5 L Hct 36.6 L MCV 98.7 MCH 31.0 MCHC 31.4 L RDW Std Deviation 49.3 H RDW Coeff of Ministerio 13.7 Plt Count 221 MPV 9.3 Immature Gran % (Auto) 2.5 Neut % (Auto) 79.9 Lymph % (Auto) 11.8 [place] % (Auto) 5.1 Eos % (Auto) 0.6 Baso % (Auto) 0.1 Immature Gran # (Auto) 0.37 H Neut # (Auto) 12.01 H Lymph # (Auto) 1.77 [place] # (Auto) 0.76 H Eos # (Auto) 0.09 Baso # (Auto) 0.01 Sodium 131 L Potassium 3.2 L Chloride 87 L Carbon Dioxide 43 H* Anion Gap 2.0 L BUN 21 H Creatinine 0.58 L Est Cr Clr Drug Dosing 149.2 Est GFR ( Amer) 116.9 Est GFR (Non-Af Amer) 100.9 BUN/Creatinine Ratio 36.8 H Glucose 113 H POC Glucose 195 H Calcium 9.4 Magnesium 05/27/19 05/27/19 05/27/19 07:53 11:47 17:04 WBC RBC Hgb Hct MCV MCH MCHC RDW Std Deviation RDW Coeff of Ministerio Plt Count MPV Immature Gran % (Auto) Neut % (Auto) Lymph % (Auto) [place] % (Auto) Eos % (Auto) Baso % (Auto) Immature Gran # (Auto) Neut # (Auto) Lymph # (Auto) [place] # (Auto) Eos # (Auto) Baso # (Auto) Sodium Potassium Chloride Carbon Dioxide Anion Gap BUN Creatinine Est Cr Clr Drug Dosing Est GFR ( Amer) Est GFR (Non-Af Amer) BUN/Creatinine Ratio Glucose POC Glucose 126 H 249 H 277 H Calcium Magnesium 05/27/19 05/28/19 05/28/19 20:16 02:14 07:27 WBC RBC Hgb Hct MCV MCH MCHC RDW Std Deviation RDW Coeff of Ministerio Plt Count MPV Immature Gran % (Auto) Neut % (Auto) Lymph % (Auto) [place] % (Auto) Eos % (Auto) Baso % (Auto) Immature Gran # (Auto) Neut # (Auto) Lymph # (Auto) [place] # (Auto) Eos # (Auto) Baso # (Auto) Sodium Potassium Chloride Carbon Dioxide Anion Gap BUN Creatinine Est Cr Clr Drug Dosing Est GFR ( Amer) Est GFR (Non-Af Amer) BUN/Creatinine Ratio Glucose POC Glucose 370 H* 219 H 203 H Calcium Magnesium 05/28/19 05/28/19 05/28/19 08:31 08:31 11:23 WBC 12.42 H RBC 3.86 L Hgb 11.7 L Hct 38.2 MCV 99.0 MCH 30.3 MCHC 30.6 L RDW Std Deviation 49.2 H RDW Coeff of Ministerio 13.7 Plt Count 205 MPV 9.3 Immature Gran % (Auto) Neut % (Auto) Lymph % (Auto) [place] % (Auto) Eos % (Auto) Baso % (Auto) Immature Gran # (Auto) Neut # (Auto) Lymph # (Auto) [place] # (Auto) Eos # (Auto) Baso # (Auto) Sodium 133 L Potassium 3.8 D Chloride 89 L Carbon Dioxide 40 H Anion Gap 4.0 BUN 20 H Creatinine 0.64 Est Cr Clr Drug Dosing 136.1 Est GFR ( Amer) 113.2 Est GFR (Non-Af Amer) 97.7 BUN/Creatinine Ratio 31.3 H Glucose 209 H POC Glucose 231 H Calcium 10.1 Magnesium 2.0 05/28/19 16:57 WBC RBC Hgb Hct MCV MCH MCHC RDW Std Deviation RDW Coeff of Ministerio Plt Count MPV Immature Gran % (Auto) Neut % (Auto) Lymph % (Auto) [place] % (Auto) Eos % (Auto) Baso % (Auto) Immature Gran # (Auto) Neut # (Auto) Lymph # (Auto) [place] # (Auto) Eos # (Auto) Baso # (Auto) Sodium Potassium Chloride Carbon Dioxide Anion Gap BUN Creatinine Est Cr Clr Drug Dosing Est GFR ( Amer) Est GFR (Non-Af Amer) BUN/Creatinine Ratio Glucose POC Glucose 220 H Calcium Magnesium Diagnostic Findings Microbiology 05/22/19 08:28 Blood Aerobic Blood Culture - Final Staph aureus MRSA 05/22/19 08:28 Blood Anaerobic Blood Culture - Final No growth in Anaerobic bottle after 5 days. 05/20/19 09:09 Blood Aerobic Blood Culture - Final Staph aureus MRSA 05/20/19 09:09 Blood Anaerobic Blood Culture - Final No growth in Anaerobic bottle after 5 days. 05/20/19 09:01 Blood Aerobic Blood Culture - Final Staph aureus MRSA 05/20/19 09:01 Blood Anaerobic Blood Culture - Final No growth in Anaerobic bottle after 5 days. 05/19/19 08:16 Blood Aerobic Blood Culture - Final Staph aureus MRSA 05/19/19 08:16 Blood Anaerobic Blood Culture - Final No growth in Anaerobic bottle after 5 days. 05/19/19 08:12 Blood Aerobic Blood Culture - Final Staph aureus MRSA 05/19/19 08:12 Blood Anaerobic Blood Culture - Final No growth in Anaerobic bottle after 5 days. 05/22/19 08:40 Blood Aerobic Blood Culture - Final No growth in Aerobic bottle after 5 days. 05/22/19 08:40 Blood Anaerobic Blood Culture - Final No growth in Anaerobic bottle after 5 days. 05/24/19 09:54 Blood Aerobic Blood Culture - Preliminary No growth in Aerobic bottle after 48 hours. 05/24/19 09:54 Blood Anaerobic Blood Culture - Preliminary No growth in Anaerobic bottle after 48 hours. 05/24/19 10:24 Blood Aerobic Blood Culture - Preliminary No growth in Aerobic bottle after 48 hours. 05/24/19 10:24 Blood Anaerobic Blood Culture - Preliminary No growth in Anaerobic bottle after 48 hours. 05/18/19 04:35 Blood Aerobic Blood Culture - Final Staph aureus MRSA 05/18/19 04:35 Blood Anaerobic Blood Culture - Final Staph aureus MRSA 05/18/19 04:48 Blood Aerobic Blood Culture - Final Staph aureus MRSA 05/18/19 04:48 Blood Anaerobic Blood Culture - Final Staph aureus MRSA (1) LLL pneumonia Pneumonia type: due to unspecified organism Qualified Code(s): J18.1 - Lobar pneumonia, unspecified organism
[2019-05-29] MEDS ORDERED: INSULIN ASPART 100 UNITS/ML 3 ML PEN SC SCH (02:00)
[2019-05-29] MEDS: SODIUM CHLORIDE 0.9% IV SCH ×2 (02:27→12:25)
[2019-05-29] MEDS: RIFAMPIN IV SCH ×2 (02:27→12:25)
[2019-05-29] MEDS: TRAMADOL HCL 50 MG TABLET PO PRN ×2 (02:42→06:45)
[2019-05-29] MEDS: ALBUT/IPRATROP 3MG/0.5MG NEB 3 ML VIAL INH SCH ×3 (02:50→11:17)
[2019-05-29] MEDS: LEVOTHYROXINE SODIUM 200 MCG TABLET PO SCH (05:59)
[2019-05-29 07:12] LABS: BUN Creatinine Ratio 33.6 (10-20); Calcium 9.8 mg/dl (8.5-10.1); Creatinine Clr Calc Pharmacy 161.3 ml/min; Est GFR (Non-African American) 102.7; Magnesium 1.9 mg/dl (1.8-2.4); Potassium 4.3 mmol/L (3.5-5.1)
[2019-05-29] MEDS ORDERED: BUMETANIDE 1 MG TAB PO SCH (09:00)
[2019-05-29] MEDS: ACETAMINOPHEN 325 MG TAB PO PRN (09:19)
[2019-05-29] MEDS: predniSONE 10 MG TABLET PO SCH (09:23)
[2019-05-29] MEDS: CLOPIDOGREL BISULFATE 75 MG TAB PO SCH (09:24)
[2019-05-29] MEDS: CARVEDILOL 3.125 MG TAB PO SCH (09:24)
[2019-05-29] MEDS: PANTOprazole 40 MG TAB PO SCH (09:24)
[2019-05-29] MEDS: POTASSIUM CHLORIDE 20 MEQ TABCR PO SCH (09:24)
[2019-05-29] MEDS: ATORVASTATIN 40 MG TAB PO SCH (09:24)
[2019-05-29] MEDS: DOCUSATE SODIUM/SENNA 50/8.6MG TAB PO SCH (09:24)
[2019-05-29] MEDS: SPIRONOLACTONE 25 MG TAB PO SCH (09:24)
[2019-05-29] MEDS: ASPIRIN 81 MG ECTAB PO SCH (09:24)
[2019-05-29] MEDS: GABAPENTIN 100 MG CAP PO SCH ×2 (09:24→12:53)
[2019-05-29] MEDS: INSULIN ASPART 100 UNITS/ML 3 ML PEN SC SCH ×2 (09:29→13:07)
[2019-05-29] MEDS: INSULIN GLARGINE SOLOSTAR 100 UNITS/ML 3 ML PEN SC SCH (09:30)
[2019-05-29] MEDS ORDERED: SOD PHOSPHATE/SOD BIPHOSPHATE ENEMA 132 ML BTL PR ONE (10:30)
[2019-05-29] MEDS ORDERED: TRAMADOL HCL 50 MG TABLET PO ONE (10:30)
--- NOTE | 2019-05-29 10:32 | XRay Report ---
SINGLE VIEW CHEST CLINICAL HISTORY: Dyspnea. FINDINGS: An AP, portable, upright chest radiograph is compared to study dated 05/22/2019 and correlat ed with chest CT dated 05/18/2019. The examination is degraded by portable technique and patient rotat ion. A right PICC line is unchanged in position. There is near complete opacification of the left h emithorax consistent with a large pleural effusion and atelectasis of left lung. This has increased f rom 05/22/2019. The cardiomediastinal silhouette cannot be assessed. Mild pulmonary vascular congestio n is noted in the right lung. There is a trace pleural effusion at the right lung base with right bas ilar atelectasis. No pneumothorax is seen. The skeletal structures are osteopenic. The bony thorax is grossly intact. IMPRESSION: 1. There is near complete opacification of the left hemithorax consistent with a large pleural effusi on and atelectasis of left lung. Superimposed pneumonia would be impossible to exclude. This has incr eased from 05/22/2019. 2. There is trace pleural effusion seen on the right. 3. Mild pulmonary vascular congestion is noted in the right lung. Electronically signed by: Addison Connolly M.D. 05/29/2019 10:31 AM
--- NOTE | 2019-05-29 10:34 | XRay Report ---
KUB HISTORY: Acute generalized abdominal pain Rule out obstruction/stool burden COMPARISON: KUB 05/18/2019. FINDINGS: Cholecystectomy. Nonobstructive bowel gas pattern. Moderate volume of formed stool is noted about the descending colon with mild to moderate volume of formed stool throughout the ascending colon. No def inite urolith. Opacity noted about the left lung base. Degenerative changes of the hips, pelvis and s pine. Vascular stent graft of the right thigh. Catheter projects over the lower pelvis. IMPRESSION: 1. Nonobstructive bowel gas pattern. 2. Moderate volume of formed stool about the descending colon. Electronically signed by: Selvin Lui M.D. 05/29/2019 10:33 AM
[2019-05-29 10:43] LABS: Base Excess ABG 7.7 mEq/L (-9-1.8); HCO3 ABG 39 mmol/L (19-24); Oxygen Saturation ABG 90.9 % (90-95); PCO2 ABG 102 mmHg (35-46); PO2 ABG 66 mm/Hg (80-95)
[2019-05-29 10:48] LABS: Allen Test Pos (Pos)
[2019-05-29] MEDS: CEFTAROLINE FOSAMIL ACETATE 600 MG in SODIUM CHLORIDE 0.9% 250 ML IV SCH (10:53)
[2019-05-29] MEDS ORDERED: ENOXAPARIN INJ 40 MG/0.4 ML SYR SQ SCH (11:00)
[2019-05-29] MEDS: DAPTOmycin 725 MG in SYRINGE 0 ML IV SCH (12:52)
[2019-05-29 12:56] LABS: Glucose Pleural Fluid 143 mg/dl
--- NOTE | 2019-05-29 12:57 | XRay Report ---
XR chest 1V portable CLINICAL HISTORY: S/P Thoracentesis COMPARISON STUDY: Chest CT May 18, 2019. Chest radiograph May 29, 2019 10:13 AM. FINDINGS: Right PICC remains in place. There is no pneumothorax. Persistent near complete opacificati on of the left hemithorax is noted. There may be slight aeration of the left upper lobe. There is pul monary vascular congestion within the right lung. Suspected rightward shift of mediastinal structures is noted. IMPRESSION: 1. Persistent near complete opacification of the left hemithorax with minimal aeration of the left up per lobe. This is likely due to a left pleural effusion with compressive atelectasis of the left lung . Apparent mass effect with rightward midline shift of mediastinal structures. 2. Pulmonary vascular congestion within the right lung. Electronically signed by: Ruben Ahn M.D. 05/29/2019 12:56 PM
[2019-05-29 13:01] LABS: LDH Pleural Fluid 384 U/L; Total Protein Pleural Fluid 3.3 g/dl
[2019-05-29 13:05] LABS: Appearance Pleural Fluid CLOUDY; Color Pleural Fluid AMBER; Mononuclear WBC Pleural 66.9 %; Polynuclear WBC Pleural 33.1 %; RBC Pleural Fluid (A) 4000 /uL; Source Pleural Fluid LEFT LUNG; WBC Pleural Fluid (A) 681 /uL
--- NOTE | 2019-05-29 13:27 | Hospitalist Progress Note ---
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 - Most recent BC on 05/24 have been negative x 48 hours. - TTE 05/21 with vegetation on coronary cusp of aortic valve. - Continue Dapto, Ceftaroline and Rifampin IV via PICC line -- end date 07/05/19. - Plan for placement at [facility] in [place], [place]. Will need to contact daughter prior to transport. (2) MRSA bacteremia: - ?Source -- pulmonary vs. skin lesions. Also has h/o MRSA furuncle on left neck requiring I&D. - BC growth and treatment as noted above. - Continue Ceftaroline, Daptomycin, Rifampin for 6 weeks. (3) Severe sepsis: - 2nd to LLL pneumonia and MRSA bacteremia/septicemia. - Sepsis now resolved >5-7 days. (4) LLL pneumonia: - Noted on CT chest -- may be related to MRSA. - Treated with both Ceftaroline and then three days of Vancomycin. - Completed 7 days of treatment for the pneumonia, further antibiotics would be treating the bacteremia/endocarditis. (5) Acute on chronic respiratory failure with hypoxia and hypercapnia: - Likely related to PNA and COPD flare; chronically hypoxic d/t COPD, GEETHA. - Now stable on 4L via NC. - Diuresis with Bumex 2 mg PO daily. (6) Metabolic encephalopathy: - Due to sepsis/pneumonia - resolved. - Hypercarbia improved; avoid hyperoxia and narcotics. - Ammonia level was normal. (7) COPD (chronic obstructive pulmonary disease): - Now resolved; tapered back to Pred 30 mg daily. - Duonebs q4hr scheduled. - O2 via NC. (8) Coronary atherosclerosis of [place] coronary vessel: - Continue ASA, Plavix, statin, coreg as prescribed. (9) Diastolic CHF: - Was volume contracted clinically at admission, then received fluid resuscitation for severe sepsis. - Responded well to diuresis with Bumex 2 mg BID -- now receivin Bumex 2 mg PO daily. - No indication for ongoing doses of Diamox. - Monitor net I/O's and daily weights. (10) Tobacco use disorder: - Nicoderm patch. (11) Cirrhosis of liver: - 2nd to ABDI and/or autoimmune causes. - Ammonia level normal. (12) DM type 2 (diabetes mellitus, type 2): - BG has been unstable, elevated >250-300's. - Pharmacy consulted for glycemic management, receiving basal/bolus insulin. - Hgb A1C was 7.8 in April 2019. (13) Hypothyroidism: - Continue Synthroid as prescribed. - TSH was 0.9. (14) Hyponatremia: - Likely related to hypovolemia at admission. - Now resolved. (15) Bullous pemphigoid: - No active bullae at this time. - Continue chronic prednisone 30mg/day and niacinamide 500mg TID. (16) Chest pain: - Now resolved. (17) Morbid obesity with BMI of 50.0-59.9, adult: - BMI 58 - encourage weight loss. (18) DVT prophylaxis: - Lovenox daily. Dispo: Discharge to [facility] likely on 05/29/19. Subjective Pt. developed acute SOB this morning -- was using BiPAP overnight but has not been complaint with BiPAP over last few days in general. Weaned back to 4L via NC during morning rounds. She also complained of muscle aches/generalized pain -- pain was specifically located in her left upper arm and lower back after further questioning. She was calling out for help, yelling into the hallway every few minutes. Pain improved with tramadol. BiPAP was reapplied for possible hypercapnia; CXR showed large left pleural effusion. ICU/Pulm consulted and completed thoracentesis procedure. Will continue to evaluate for improvement in SOB/diffuse pain. Review of Systems Review of Systems: All systems reviewed & are unremarkable except as noted in HPI & below Constitutional: + fatigue and + weakness; no fever, no chills and no anorexia Respiratory: + dyspnea and + dyspnea on exertion; no cough and no wheezing Cardiovascular: + edema (Chronic ); no chest pain and no palpitations Gastrointestinal: + constipation; no abdominal pain and no nausea Genitourinary: no difficulty urinating Musculoskeletal: no back pain and no joint pain Results & Data Vital Signs (Past 12 Hours) Vital Signs Temp Pulse Pulse Pulse Resp BP Pulse Ox 05/29/19 11:18 60 25 H 91 05/29/19 11:17 60 25 H 91 05/29/19 08:07 36.5 C 24 L 62 114/74 96 05/29/19 07:22 68 22 80 L 05/29/19 07:21 68 22 80 L 05/29/19 06:44 58 L 25 H 95 05/29/19 02:50 59 L 22 92 05/29/19 02:47 72 24 92 PG Care Time/CCT Total # of Minutes Spent Total Time Spent with Patient: Total time spent is greater than 50% in coordination of care (as documented) at patient's floor/unit and/or counseling patient: (1) LLL pneumonia Pneumonia type: due to unspecified organism Qualified Code(s): J18.1 - Lobar pneumonia, unspecified organism (2) COPD (chronic obstructive pulmonary disease) COPD type: COPD with acute exacerbation Qualified Code(s): J44.1 - Chronic obstructive pulmonary disease with (acute) exacerbation (3) Coronary atherosclerosis of [place] coronary vessel [place] vs. transplanted heart: [place] heart Associated angina: without angina Qualified Code(s): I25.10 - Atherosclerotic heart disease of [place] coronary artery without angina pectoris (4) Diastolic CHF Heart failure chronicity: chronic Qualified Code(s): I50.32 - Chronic diastolic (congestive) heart failure (5) Cirrhosis of liver Hepatic cirrhosis type: other cirrhosis Qualified Code(s): K74.69 - Other cirrhosis of liver (6) DM type 2 (diabetes mellitus, type 2) Diabetes mellitus superintendent terminal insulin use: with half-way use Diabetes mellitus complication status: with hyperglycemia Qualified Code(s): E11.65 - Type 2 diabetes mellitus with hyperglycemia; Z79.4 - tank terminal gauger (current) use of insulin (7) Hypothyroidism Hypothyroidism type: acquired Qualified Code(s): E03.9 - Hypothyroidism, unspecified (8) Chest pain Chest pain type: unspecified Qualified Code(s): R07.9 - Chest pain, unspecified
--- NOTE | 2019-05-29 14:25 | Death Summary ---
Date of Service May 29, 2019 Pronouncement Note Date and Time of Date of : 05/29/19 Time of : 14:08 PCOD Preliminary cause of : Acute respiratory failure with hypoxia and hype rcapnia Contributing Factors (1) Endocarditis: (2) MRSA bacteremia: (3) Severe sepsis: (4) LLL pneumonia: (5) Acute on chronic respiratory failure with hypoxia and hypercapnia: (6) Metabolic encephalopathy: (7) COPD (chronic obstructive pulmonary disease): (8) Coronary atherosclerosis of makah coronary vessel: (9) Diastolic CHF: (10) Tobacco use disorder: (11) Cirrhosis of liver: (12) DM type 2 (diabetes mellitus, type 2): (13) Hypothyroidism: (14) Hyponatremia: (15) Bullous pemphigoid: (16) Chest pain: (17) Morbid obesity with BMI of 50.0-59.9, adult: (18) DVT prophylaxis: Summary Additional details: She developed increased respiratory distress along with myalgias on 05/29/19. CXR showed left sided pleural effusion. ABG showed acidosis; BiPAP was re-applied to the patient. She developed increased lethargy throughout the morning. ICU/pulmonary team consulted; left sided thoracentesis completed by Dr. Beltran. Code blue was initiated in the afternoon after patient was found unresponsive by lab staff. Additional Data Confirmation of : no pulse, no respirations, no heart sounds and pupils fixed and dilated Family: at bedside Attending/PCP notified?: Yes Attending physician: Diann Teixeira MD Patient was pronounced by Addison Paniagua PA-C. Was code activated?: Yes Supervising Physician Co-Signing Physician Notes PA Supervision Note: I personally saw and examined the patient. I verified all hamilton points and agree with CEDRICK Mercedes with the following exceptions and/or additions: Patient developed worsening respiratory acidosis and was reportedly noncompliant with BiPAP the last several nights. pH was down to 7.20, PaCO2 was up to 102. Chest x-ray showed a suspected large left pleural effusion versus effusion with atelectasis on the left side. Consulted critical care pulmonary who performed thoracentesis and repeat chest x-ray was not much improved and was more consistent with atelectasis. She had been placed on BiPAP. A CODE BLUE was then called as the patient was found unresponsive by laboratory staff when they are trying to draw her repeat ABG. I participated in the CODE BLUE and this lasted for 40 minutes. She had a PEA arrest likely due to hypoxia and hypercarbia. We regained her pulse on several occasions but it continued to be lost again. She was administered 7 mg of epinephrine and lidocaine as well. Her family arrived including her sister and her daughter. They advised us to stop resuscitation after discussion with them about her poor prognosis even if she were to survive. She was transitioned to comfort measures and CPR was discontinued. She was then pronounced within minutes. Condolences were given to the family.
--- NOTE | 2019-05-29 14:38 | Procedure Note ---
Procedure Note Date of Service May 29, 2019 Note after informed consent over telephone from sister using sterile precautions -mask,gloves. drape site identified with ultrasound guidance site anesthetized with 1% lidocaine using modified seldinger technique thoracentesis catheter inserted 700 ml of dark yellow fluid obtained. pt tolerated well CXR post thoracentesis with continued opacification of L left likely all atelectatsis Coding CPT Codes Pulmonary/Thoracic - Pulmonary and Thoracic: Thoracentesis w imaging ([id number])
--- NOTE | 2019-05-29 14:53 | Critical Care Progress Note ---
Date of Service May 29, 2019 Assessment & Plan (1) Acute on chronic respiratory failure with hypoxia and hypercapnia: Initial evaluation at 1145. pt with opacification of L lung and acute on chronic hypercapnic respiratory failure. unclear pleural effusion vs atelecatsis. bedside ultrasound showed a pleural effusion and thoracentesis was done and 700 ml of fluid obtained. repeat CXR showed no improvment with CXR. plan was for repeat ABG and reeval for likely intubation. while they were attempting to draw the ABG pt stopped breathing and progressed to cardiac arrest. prior to that per nurse she did eat some of her lunch. ACLS was started. see code sheet for details. pt was intubated by myself with glidescope with grade 1 view. 7.5 ET tube placed and confirmed using color change and breath sounds. pt with intermittent ROSC. when family arrived they requested termination of efforts. I have personally spent 45 minutes of critical care time in the direct management of this patient. This is a life/limb threatening event. This includes time spent evaluating patient, direct bedside care, chart review, placing orders, interpretation of diagnostic studies, discussion with consultants, patient, and/or family members regarding treatment decisions, as well as other required patient management activities. This time is exclusive of all separately billable procedures, and teaching time and separate from and in addition to any other critical care service time. (2) Pleural effusion: Subjective reconsulted due to worsening respiratory acidosis and L sided opacity on CXR. pt is complaining of shortness of breath and L side chest pain. She was placed on bipap due to acidosis. Physical Exam Physical Exam: Constitutional: Comfortable NAD on bipap. morbid obesity HEENT: normocephalic atraumatic. MMM. no cervical lymphadenopathy CV: RRR nl s1,s2 no murmurs rubs or gallops Lungs: decreased bilaterally L >R. no accessory muscle use. volumes 5-600 on bipap Abd: soft nontender nondistended. normal bowel sounds Ext: + LE edema. no cyanosis, no clubbing Skin: warm dry Neuro: lethargic only answers simple questions. moving all extremities Psych: lethargic Results & Data Vital Signs (Past 12 Hours) Vital Signs Temp Pulse Pulse Pulse Resp BP Pulse Ox 05/29/19 11:18 60 25 H 91 05/29/19 11:17 60 25 H 91 05/29/19 08:07 36.5 C 24 L 62 114/74 96 05/29/19 07:22 68 22 80 L 05/29/19 07:21 68 22 80 L 05/29/19 06:44 58 L 25 H 95 05/29/19 02:50 59 L 22 92 05/29/19 02:47 72 24 92 Laboratory Results Laboratory Results - last 24 hr 05/28/19 05/28/19 05/29/19 16:57 20:28 02:19 ABG pH ABG pCO2 ABG pO2 ABG HCO3 ABG O2 Saturation ABG Base Excess Alon Test Barometric Pressure Oxygen Given Sodium Potassium Chloride Carbon Dioxide Anion Gap BUN Creatinine Est Cr Clr Drug Dosing Est GFR ( Amer) Est GFR (Non-Af Amer) BUN/Creatinine Ratio Glucose POC Glucose 220 H 222 H 174 H Calcium Magnesium Total Bilirubin AST ALT Alkaline Phosphatase Lactate Dehydrogenase Total Protein Albumin Globulin Albumin/Globulin Ratio Pleural Fluid Source Pleural Color Pleural Appearance Pleural WBC Pleural RBC Pleural Polynuclear % Pleural Mononuclear % Pleural Total Protein Pleural LDH Pleural Glucose 05/29/19 05/29/19 05/29/19 05:41 07:53 10:31 ABG pH 7.20 L ABG pCO2 102 H ABG pO2 66 L ABG HCO3 39 H ABG O2 Saturation 90.9 ABG Base Excess 7.7 H Alon Test Pos Barometric Pressure 729.3 Oxygen Given FLOW RATE 16 Sodium 130 L Potassium 4.3 Chloride 88 L Carbon Dioxide 39 H Anion Gap 3.0 BUN 18 Creatinine 0.55 L Est Cr Clr Drug Dosing 161.3 Est GFR ( Amer) 119.0 Est GFR (Non-Af Amer) 102.7 BUN/Creatinine Ratio 33.6 H Glucose 115 H POC Glucose 124 H Calcium 9.8 Magnesium 1.9 Total Bilirubin AST ALT Alkaline Phosphatase Lactate Dehydrogenase Total Protein Albumin Globulin Albumin/Globulin Ratio Pleural Fluid Source Pleural Color Pleural Appearance Pleural WBC Pleural RBC Pleural Polynuclear % Pleural Mononuclear % Pleural Total Protein Pleural LDH Pleural Glucose 05/29/19 05/29/19 05/29/19 11:31 14:07 14:07 ABG pH ABG pCO2 ABG pO2 ABG HCO3 ABG O2 Saturation ABG Base Excess Alon Test Barometric Pressure Oxygen Given Sodium Potassium Chloride Carbon Dioxide Anion Gap BUN Creatinine Est Cr Clr Drug Dosing Est GFR ( Amer) Est GFR (Non-Af Amer) BUN/Creatinine Ratio Glucose POC Glucose 166 H Calcium Magnesium Total Bilirubin AST ALT Alkaline Phosphatase Lactate Dehydrogenase Pending Total Protein Pending Albumin Globulin Albumin/Globulin Ratio Pleural Fluid Source Pleural Color Pleural Appearance Pleural WBC Pleural RBC Pleural Polynuclear % Pleural Mononuclear % Pleural Total Protein Pleural LDH Pleural Glucose 05/29/19 05/29/19 14:07 Unknown ABG pH ABG pCO2 ABG pO2 ABG HCO3 ABG O2 Saturation ABG Base Excess Alon Test Barometric Pressure Oxygen Given Sodium Pending Potassium Pending Chloride Pending Carbon Dioxide Pending Anion Gap Pending BUN Pending Creatinine Pending Est Cr Clr Drug Dosing Pending Est GFR ( Amer) Pending Est GFR (Non-Af Amer) Pending BUN/Creatinine Ratio Pending Glucose Pending POC Glucose Calcium Pending Magnesium Total Bilirubin Pending AST Pending ALT Pending Alkaline Phosphatase Pending Lactate Dehydrogenase Total Protein Pending Albumin Pending Globulin Pending Albumin/Globulin Ratio Pending Pleural Fluid Source LEFT LUNG Pleural Color KWAME Pleural Appearance CLOUDY Pleural WBC 681 Pleural RBC 4000 Pleural Polynuclear % 33.1 Pleural Mononuclear % 66.9 Pleural Total Protein 3.3 Pleural LDH 384 Pleural Glucose 143 Diagnostic Findings SINGLE VIEW CHEST CLINICAL HISTORY: Dyspnea. FINDINGS: An AP, portable, upright chest radiograph is compared to study dated 05/22/2019 and correlated with chest CT dated 05/18/2019. The examination is degraded by portable technique and patient rotation. A right PICC line is unchanged in position. There is near complete opacification of the left hemithorax consistent with a large pleural effusion and atelectasis of left lung. This has increased from 05/22/2019. The cardiomediastinal silhouette cannot be assessed. Mild pulmonary vascular congestion is noted in the right lung. There is a trace pleural effusion at the right lung base with right basilar atelectasis. No pneumothorax is seen. The skeletal structures are osteopenic. The bony thorax is grossly intact. IMPRESSION: 1. There is near complete opacification of the left hemithorax consistent with a large pleural effusion and atelectasis of left lung. Superimposed pneumonia would be impossible to exclude. This has increased from 05/22/2019. 2. There is trace pleural effusion seen on the right. 3. Mild pulmonary vascular congestion is noted in the right lung. Electronically signed by: Addison Connolly M.D. 05/29/2019 10:31 AM PG Care Time/CCT Critical Care Time: Yes Total Critical Care Time: 45
[2019-05-29] MEDS ORDERED: SODIUM CHLORIDE 0.9% 10ML FLUSH IV ONE (18:59)
== END 2019-05-29 19:00 | disposition expired | DRG 871 ==
LOC: ED 03:51 → SUATTDRO 08:41 → 1E 08:41 → 2S 05-22 15:31 → 4E 05-25 14:44